=== PATIENT | male | born 1975 | race Caucasian/White ===

== ENCOUNTER 2022-06-13 11:38 | Emergency (ER) | payer SELFPAY ==
[2022-06-13 11:44] VITALS: BP 151/94; PULSE 87; RESP 20; TEMP 37.4; O2SAT 98; BMI 25.7
--- NOTE | 2022-06-13 12:09 | ED_ITS ---
HPI - General Adult General Time Seen by Provider: 12:09 Date Seen: 06/13/22 Chief complaint: Ear/Nose/Throat Problem Stated complaint: Pain left ear Time Seen by Provider: 06/13/22 11:41 Source: patient Mode of arrival: ambulatory Limitations: no limitations History of Present Illness HPI narrative: Patient is a 38 year white male who is largely healthy he reports that he has ADHD, he is on Adderall. Patient reports 2-3 day history of significant left ear pain has been very bothersome to him. No fevers chills or drainage. No other conditions occurring. Related Data Home Medications Medication Instructions Recorded Confirmed dextroamphetamine-amphetamine 10 10 mg PO DAILY 06/13/22 06/13/22 mg tablet Previous Rx's Medication Instructions Recorded cephalexin 500 mg capsule 500 mg PO TID #21 caps 06/13/22 hydrocodone 5 mg-acetaminophen 325 1 tab PO Q6H #10 tabs 06/13/22 mg tablet Allergies Allergy/AdvReac Type Severity Reaction Status Date / Time ketorolac [From Toradol] Allergy Hives Verified 06/13/22 11:48 Penicillins Allergy Vomiting Verified 06/13/22 11:48 tramadol Allergy Nausea Verified 06/13/22 11:48 Review of Systems Status of ROS: Reports: 6 or more systems reviewed and unremarkable except as noted in History and below PFSH PFSH Social History Smoking Status: Never smoker Do you use any of these nicotine containing products: None Second hand tobacco smoke exposure: No How often do you have a drink containing alcohol: never AUDIT-C Alcohol total score: 0 Non-prescribed substance use: denies use Exam Narrative: Exam Narrative: Objective vital signs as above HEENT shows left otitis media left otitis externa rest of HEENT is unremarkable, neck is supple Const: Vital Signs, click to edit/add: Vital Signs - 24 hr 06/13/22 11:44 Temperature 99.3 F Pulse Rate [Right Pulse Oximeter] 87 Respiratory Rate 20 Blood Pressure [Ri ght Upper Arm] 151/94 H Pulse Oximetry 98 Oxygen Delivery Me thod Room Air Course Vital Signs Vital signs: Initial Vital Signs Temperature 99.3 F 06/13/22 11:44 Temperature Source Temporal Artery Scan 06/13/22 11:44 Pulse Rate 87 06/13/22 11:44 Pulse Rhythm 06/13/22 11:44 Respiratory Rate 20 06/13/22 11:44 Blood Pressure 151/94 H 06/13/22 11:44 Blood Pressure Mean 113 06/13/22 11:44 Blood Pressure Position Sitting 06/13/22 11:44 Pulse Oximetry 98 06/13/22 11:44 Oxygen Delivery Method 06/13/22 11:44 Vital Signs Temperature 99.3 F 06/13/22 11:44 Pulse Rate 87 06/13/22 11:44 Respiratory Rate 20 06/13/22 11:44 Blood Pressure 151/94 H 06/13/22 11:44 Pulse Oximetry 98 06/13/22 11:44 Oxygen Delivery Method 06/13/22 11:44 Temperature 99.3 F 06/13/22 11:44 Pulse Rate 87 06/13/22 11:44 Respiratory Rate 20 06/13/22 11:44 Blood Pressure 151/94 H 06/13/22 11:44 Pulse Oximetry 98 06/13/22 11:44 Oxygen Delivery Method 06/13/22 11:44 Medical Decision Making MDM Narrative Medical decision making narrative: Patient has otitis media and otitis externa, will give him Keflex and Tylenol here, [place] and Keflex for home. Recheck with primary care doctor in the next 2 days for reassessment. Light activity, no driving or drinking or work with his pain medication. Discharge Plan Discharge Clinical Impression: Otitis externa, Otitis media Patient Disposition: Home, Self-Care Condition: Stable Additional Instructions: Rest, light activity, oral Keflex times 10 days, Cortisporin otic suspension 3 drops to the left ear 4 times a day for the next 5 days, follow up with primary care in 2 days not improving changes concerns worsening return to the ED. Recommend off work today. Will prescribe some [place] for a couple of days for him, not to use of working or driving. Activity Level: Light activity Discharge Diet: Regular Prescriptions: New cephalexin 500 mg capsule 500 mg PO TID Qty: 21 0RF hydrocodone-acetaminophen 5-325 mg tablet 1 tab PO Q6H Qty: 10 0RF No Action dextroamphetamine-amphetamine 10 mg tablet 10 mg PO DAILY Stand Alone Forms: [facility] Info Instructions Discharge Comment: recheck primary care 2 days
[2022-06-13] MEDS: cephALEXin 500 MG CAPSULE PO (12:20)
== END 2022-06-13 12:28 | disposition home or self-care (01) ==
LOC: ED 12:12
PROVIDERS: Emergency Provider Family Medicine
DX: H60.92 Unspecified otitis externa, left ear (principal)
CPT/HCPCS: 99282; 99283; A9270

== ENCOUNTER 2022-07-08 06:35 | Emergency (ER) | payer OTHER, SELFPAY ==
[2022-07-08 06:42] VITALS: PULSE 78
[2022-07-08 06:43] VITALS: BP 159/115; PULSE 78; RESP 18; TEMP 36.4; O2SAT 99; BMI 25.7
[2022-07-08] MEDS: HYDROCODONE-ACETAMIN 5-325 MG 1 TAB PO (06:44)
--- NOTE | 2022-07-08 06:44 | CRLHL7_ITS ---
For Patients: As a result of the Cures Act, medical imaging exams and procedure reports are released immediately into your electronic medical record. You may view this report before your referring provider. If you have questions, please contact your health care provider. Indication: crush injury to right hand, most of pain is around the 2nd and 3rd digits Technique: Right hand 3 views. Comparison: None. Findings: No acute fracture or traumatic malalignment of the right hand. No significant soft tissue swelling. No radiopaque foreign body. Impression: No evidence of fracture. Dictated by Rojas Bates MD @ 07/08/2022 7:44:00 AM (Electronically Signed)
--- NOTE | 2022-07-08 06:48 | ED_ITS ---
HPI - Extremity Injury (Upper) General Chief Complaint: Extremity Pain/Injury, Upper Stated Complaint: Crushed right fingers Time Seen by Provider: 07/08/22 06:42 History of Present Illness HPI narrative: Pt is a healthy 46 year old gentleman who presents after pinching his first two digits in a heavy door immediately prior to arrival. No skin breakdown. The pain and swelling involve only the first two digits with no other injuries. Pt states the pain is severe and sharp. Pt is having a difficult time bending the affected digits. No difficulty with circulation. No obvious deformaties prior to arrival. Pt is right handed and has been applying ice. No other treatments to this point. Related Data Home Medications Medication Instructions Recorded Confirmed dextroamphetamine-amphetamine 10 10 mg PO DAILY 06/13/22 07/08/22 mg tablet Previous Rx's Medication Instructions Recorded hydrocodone 5 mg-acetaminophen 325 1 tab PO Q6H #10 tabs 06/13/22 mg tablet Allergies Allergy/AdvReac Type Severity Reaction Status Date / Time ketorolac [From Toradol] Allergy Hives Verified 06/13/22 11:48 Penicillins Allergy Vomiting Verified 06/13/22 11:48 tramadol Allergy Nausea Verified 06/13/22 11:48 Review of Systems Status of ROS: Reports: 10 or more systems reviewed and unremarkable except as noted in History and below [facility] Medical History (Updated 07/08/22 @ 07:36 by Ramiro Long MD) Acute back pain with sciatica ADHD Depression Nontraumatic complete tear of left rotator cuff SLAP lesion of left shoulder Surgical History (Updated 07/08/22 @ 06:57 by Byron Morrison RN) History of carpal tunnel release History of repair of left rotator cuff History of shoulder surgery History of surgery on left wrist Hx of hand surgery Social History Smoking Status: Never smoker Do you use any of these nicotine containing products: None Second hand tobacco smoke exposure: No How often do you have a drink containing alcohol: never How often do you have six or more drinks on one occasion: Never AUDIT-C Alcohol total score: 0 Non-prescribed substance use: denies use Exam Narrative: Exam Narrative: EXAM GENERAL: Patient appears uncomfortable and very upset. EYES: No scleral icterus. THYROID: no thyroid nodules or thyromegaly. LYMPH: No supraclavicular or cervical lymphadenopathy. SKIN: Visible skin seen during exam normal or with benign process only. EXT: No dependent lower extremity pedal edema. Pt has mild bruising and swelling of the first two digits of his right hand with limited range of motion. HEART: Regular rate and rhythm with no murmurs, rubs, or gallops. LUNGS: Clear to auscultation bilaterally with no crackles or wheezes. ABD: Soft, non tender, non distended. PSYCH: Good eye contact, speech is not pressured. Const: Vital Signs, click to edit/add: Vital Signs - 24 hr 07/08/22 06:43 07/08/22 06:42 07/08/22 07:38 Temperature 97.6 F Pulse Rate [Right Pulse Oximeter] 78 Pulse Rate [Right Radial] 78 Respiratory Rate 18 Blood Pressure [Ri ght Upper Arm] 159/115 H Pulse Oximetry 99 97 Oxygen Delivery Me thod Room Air 07/08/22 07:38 Temperature Pulse Rate [Right Pulse Oximeter] 68 Pulse Rate [Right Radial] Respiratory Rate 20 Blood Pressure [Ri ght Upper Arm] 153/100 H Pulse Oximetry 97 Oxygen Delivery Me thod Room Air Course Course Hospital Course: X ray of the right hand ordered. Reevaluation(s) Reevaluation #1: X ray of the right hand is negative upon my review. Pt given [place] 1 tablet. Time: 07:31 Vital Signs Vital signs: Initial Vital Signs Pulse Rate 78 07/08/22 06:42 Pulse Rhythm 07/08/22 06:42 Pulse Strength 3+ Normal 07/08/22 06:42 Vital Signs Pulse Rate 78 07/08/22 06:42 Temperature 97.6 F 07/08/22 06:43 Pulse Rate 68 07/08/22 07:38 Respiratory Rate 20 07/08/22 07:38 Blood Pressure 153/100 H 07/08/22 07:38 Pulse Oximetry 97 07/08/22 07:38 Oxygen Delivery Method 07/08/22 07:38 MDM - Extremity Injury (Upper) MDM Narrative Medical decision making narrative: Pt presents after pinching his first two digits of his right hand in a heavy door. X ray series of the right hand shows no acute fractures upon my review. Pt has swelling and mild echymosis but largely preserved range of motion. Sensation and circulation of the affected digits are preserved to the finger tips. Differential Diagnosis Differential diagnosis: Likely finger sprain, dislocation of finger and fracture of hand Discharge Plan Discharge Clinical Impression: Crush injury Condition: Stable Additional Instructions: Ice Pain control as discussed Range of motion exercises Follow up with your doctor as needed Activity Level: No Restrictions Discharge Diet: Regular Prescriptions: No Action dextroamphetamine-amphetamine 10 mg tablet 10 mg PO DAILY hydrocodone-acetaminophen 5-325 mg tablet 1 tab PO Q6H Qty: 10 0RF Follow Up/Referrals: Provider,Not a Local [Primary Care Provider] - Stand Alone Forms: [employer] Info Instructions
[2022-07-08 07:38] VITALS: BP 153/100; PULSE 68; RESP 20; O2SAT 97
== END 2022-07-08 07:58 | disposition home or self-care (01) ==
PROVIDERS: Emergency Provider Internal Medicine
DX: S67.190A Crushing injury of right index finger, initial encounter (principal); S67.01XA Crushing injury of right thumb, initial encounter; W23.0XXA Caught, crushed, jammed, or pinched between moving objects, initial encounter
CPT/HCPCS: 73130; 94761; 99283; 99284; A9270

== ENCOUNTER 2022-08-19 05:39 | Emergency (ER) | payer SELFPAY ==
[2022-08-19 05:45] VITALS: BP 156/102; PULSE 103; RESP 16; TEMP 36.7; O2SAT 98; BMI 25.7
--- NOTE | 2022-08-19 06:10 | ED.MALEGU ---
HPI - Male Genitourinary General Chief complaint: Flank Pain Stated complaint: Right side kidney stabbing pain Time Seen by Provider: 08/19/22 05:46 Source: patient Mode of arrival: ambulatory Limitations: no limitations History of Present Illness HPI Narrative: 46-year-old male with known history of prior kidney stones presents to the emergency department with 4 hour history of right flank pain and dark urine. He is quite confident that this is another kidney stone. Pain is constant, achy at times stabbing at others. Feel similar to a prior episode of kidney stone which was 1 year ago. Notes dark urine but no tho blood. No symptoms of infection such as dysuria or genital area pain. No injury or trauma. No recent falls. He does not take anticoagulants. Denies history of chronic kidney disease, hypertension or cardiac issues personally. He avoids NSAIDs because he has had a stomach ulcer in the past and does report a pretty reliable history of hives from tramadol and Toradol. He states that he does tolerate oral ibuprofen but tries to avoid this due to a prior history of stomach ulcer with heavy use of NSAIDs. He did try taking 2 extra-strength Tylenol approximately 4 hours ago with minimal improvement in his pain. No fevers. No nausea or vomiting. No headache, no HEENT symptoms. Past medical history notable for ADHD. His only long-term medication is 10 mg of Adderall once daily. Allergies are to tramadol penicillin and Toradol. But as stated above he does tolerate oral ibuprofen. Family history is notable for kidney stones in his mother as well. Denies kidney or urogenital surgeries in the past. Denies having to have surgical procedures to remove any kidney stones. Socially is a nonsmoker, works locally at [employer]. ROS is notable only for the right flank pain and dark urine, otherwise denies times 12 systems. Related Data Home Medications Medication Instructions Recorded Confirmed dextroamphetamine-amphetamine 10 10 mg PO DAILY 06/13/22 07/08/22 mg tablet Previous Rx's Medication Instructions Recorded hydrocodone 5 mg-acetaminophen 325 1 tab PO Q6H #10 tabs 06/13/22 mg tablet hydrocodone 5 mg-acetaminophen 325 1 tab PO TID PRN pain #10 tabs 07/08/22 mg tablet Allergies Allergy/AdvReac Type Severity Reaction Status Date / Time ketorolac [From Toradol] Allergy Hives Verified 06/13/22 11:48 Penicillins Allergy Vomiting Verified 06/13/22 11:48 tramadol Allergy Nausea Verified 06/13/22 11:48 PFSH PFS Medical History Acute back pain with sciatica ADHD Depression History of kidney stones Nontraumatic complete tear of left rotator cuff SLAP lesion of left shoulder Surgical History History of carpal tunnel release History of repair of left rotator cuff History of shoulder surgery History of surgery on left wrist Hx of hand surgery Social History Smoking Status: Never smoker Do you use any of these nicotine containing products: None Second hand tobacco smoke exposure: No How often do you have a drink containing alcohol: never How often do you have six or more drinks on one occasion: Never AUDIT-C Alcohol total score: 0 Non-prescribed substance use: denies use Exam Const: Vital Signs, click to edit/add: Vital Signs - 24 hr 08/19/22 05:45 08/19/22 07:54 Temperature 98.1 F Pulse Rate [Left P ulse Oximeter] 103 H 86 Respiratory Rate 16 18 Blood Pressure [Ri ght Upper Arm] 156/102 H 132/100 H Pulse Oximetry 98 97 Oxygen Delivery Me thod Room Air Room Air Documenting provider has reviewed patient's vital signs: yes Common normals: no apparent distress General appearance: cooperative and well kempt Other: Appears uncomfortable but answers questions appropriately. HENMT: Common normals: normocephalic Head and scalp: normocephalic Mouth: oral and palatal mucosa normal Throat: posterior oropharynx normal Eye: Common normals: conjunctivae normal and no scleral icterus Conjunctiva: conjunctiva(e) normal Other: Normal visual tracking Neck & C-Spine: Common normals: full ROM and no lymphadenopathy Resp: Common normals: normal respiratory effort and clear to auscultation bilaterally Effort & inspection: able to speak in complete sentences Auscultation: clear to auscultation bilaterally Cardio: Common normals: regular rate, regular rhythm, S1 normal heart sound, S2 normal heart sound, no murmurs and peripheral pulses 2+ throughout Rate: regular rate Rhythm: regular rhythm Heart sounds: S1 normal and S2 normal Peripheral pulses: pulses 2+ throughout GI: Common normals: Normal to inspection, nondistended, normoactive bowel sounds present, soft to palpation, non-tender, no hepatosplenomegaly and no masses Palpation: soft and no hepatosplenomegaly Back & Pelvis: Other: Right-sided CVA tenderness noted on exam. No other tender areas on thoracolumbar spine. Psych: Appearance: well kempt Attitude: calm and engaged Mood and affect: euthymic mood Insight: insight good Skin: Common normals: no rashes or lesions noted General skin exam: no rashes or lesions noted Course Vital Signs Vital signs: Initial Vital Signs Temperature 98.1 F 08/19/22 05:45 Temperature Source Temporal Artery Scan 08/19/22 05:45 Pulse Rate 103 H 08/19/22 05:45 Respiratory Rate 16 08/19/22 05:45 Blood Pressure 156/102 H 08/19/22 05:45 Blood Pressure Mean 120 08/19/22 05:45 Blood Pressure Position Sitting 08/19/22 05:45 Pulse Oximetry 98 08/19/22 05:45 Oxygen Delivery Method 08/19/22 05:45 Vital Signs Temperature 98.1 F 08/19/22 05:45 Pulse Rate 103 H 08/19/22 05:45 Respiratory Rate 16 08/19/22 05:45 Blood Pressure 156/102 H 08/19/22 05:45 Pulse Oximetry 98 08/19/22 05:45 Oxygen Delivery Method 08/19/22 05:45 Temperature 98.1 F 08/19/22 05:45 Pulse Rate 86 08/19/22 07:54 Respiratory Rate 18 08/19/22 07:54 Blood Pressure 132/100 H 08/19/22 07:54 Pulse Oximetry 97 08/19/22 07:54 Oxygen Delivery Method 08/19/22 07:54 MDM - Male Genitourinary MDM Narrative Medical decision making narrative: Differential diagnosis including kidney stone, kidney infection, urine infection, intra-abdominal process, musculoskeletal etiology. Will begin with oral oxycodone, oral ibuprofen with risks and benefits discussed, famotidine to help with GI protection. Awaiting urinalysis, expect that this will show some blood in the wound will need CT scan, basic metabolic panel, CBC, CRP. Update: 7 10: Patient reports marked improvement in his pain with oral pain medications. Laboratory studies reviewed with patient, all reassuring. Awaiting CT results Update 810: CT findings reviewed with patient, suspect musculoskeletal etiology. Offered muscle relaxants which he declines. Recommended Tylenol he requests a work note, I provided 1 for today only and encouraged him to return to full duty tomorrow. He verbalizes understanding and agreement. Medical Records Attestation: I reviewed the patient's medical records. Medical records narrative: Prior ED visit for hand injury Lab Data Attestation: I reviewed the patient's lab results. Lab results narrative: Reassuring Labs: Lab Results 08/19/22 08/19/22 08/19/22 Range/Units 06:00 06:25 06:25 WBC 4.10 L (4.50-11.00) K/uL RBC 4.99 (4.30-5.90) m/uL Hgb 15.6 (13.5-17.5) gm/dL Hct 45.5 (37.0-53.0) % MCV 91 (80-100) fL MCH 31 (26-34) pg MCHC 34 (32-36) gm/dL RDW Coeff of Celina 12.4 (11.5-15.5) % Plt Count 241 (140-440) K/uL Neut % (Auto) 62.8 (42.0-72.0) % Lymph % (Auto) 24.6 (20-44) % Sargent % (Auto) 10.7 (0.0-11.0) % Eos % (Auto) 1.2 (0.0-7.0) % Baso % (Auto) 0.5 (0.0-3.0) % Neut # (Auto) 2.60 (1.7-7.0) K/uL Lymph # (Auto) 1.00 (0.90-2.90) K/uL Sargent # (Auto) 0.40 (0.00-0.90) K/UL Eos # (Auto) 0.00 (0.00-0.50) K/uL Baso # (Auto) 0.00 (0.00-0.30) K/uL Abs Immat Gran (auto) 0.00 (0.00-0.30) K/uL Imm/Tot Granulo (auto) 0.2 % Sodium 138 (135-149) mmol/L Potassium 4.5 (3.6-5.1) mmol/L Chloride 103 (96-114) mmol/L Carbon Dioxide 28 (20-32) mmol/L BUN 11 (5-24) mg/dL Creatinine 0.8 (0.5-1.5) mg/dL Estimated Creat Clear 94.56 Estimated GFR 109 ml/min Glucose 91 (60-115) mg/dL Calcium 9.1 (8.4-10.6) mg/dL C-Reactive Protein < 0.5 L (0.5-1.0) mg/dL Urine Color Yellow (Yellow) Urine Appearance Clear (Clear) Urine pH 5.5 (5.0-8.5) Ur Specific Baxter 1.025 (1.000-1.030) Urine Protein Negative (Negative) Urine Glucose (UA) Negative (Negative) Urine Ketones Negative (Negative) Urine Blood Negative (Negative) Urine Nitrite Negative (Negative) Urine Bilirubin Negative (Negative) Urine Urobilinogen 0.2 (0.2-1.0) Ur Leukocyte Esterase Negative (Negative) Imaging Data CT Chest/Ab/Pelvis: Attestation: I have reviewed the pertinent imaging results. My impression: Normal except some possible mild constipation only. Certainly no stones or hydronephrosis. Radiologist's impression: No acute findings. Discharge Plan Discharge Clinical Impression: Musculoskeletal back pain Patient Disposition: Home, Self-Care Condition: Improved Instructions: Back Pain (ED) Additional Instructions: Her blood work and scans do not reveal any signs of kidney stone, urinary abnormality, problems with her abdominal organs. I suspect you have pulled a muscle in your back or you may have some ongoing issues with her back as you disclosed to me at the end of our encounter. For now, I do recommend Tylenol as needed for pain. You have declined muscle relaxants. I have given you work note for today. You should return to full duty tomorrow. If you continue to have issues with her back, I would encourage you to make a follow-up appointment with your long-term primary care provider to discuss long-term management. Activity Level: No Restrictions Discharge Diet: Regular Prescriptions: No Action dextroamphetamine-amphetamine 10 mg tablet 10 mg PO DAILY hydrocodone-acetaminophen 5-325 mg tablet 1 tab PO Q6H Qty: 10 0RF hydrocodone-acetaminophen 5-325 mg tablet 1 tab PO TID PRN (Reason: pain) Qty: 10 0RF Follow Up/Referrals: Provider,Not a Local [Primary Care Provider] - Stand Alone Forms: [employer] Info Instructions
[2022-08-19 06:12] LABS: Appearance Urine Clear (Clear); Bilirubin Urine Negative (Negative); Blood Urine Negative (Negative); Color Urine Yellow (Yellow); Glucose Urine Negative (Negative); Ketones Urine Negative (Negative); Leukocyte Esterase Urine Negative (Negative); Nitrite Urine Negative (Negative); Protein Urine Negative (Negative); Specific Gravity Urine 1.025 (1.000-1.030); Urobilinogen Urine 0.2 (0.2-1.0); pH Urine 5.5 (5.0-8.5)
[2022-08-19] MEDS: FAMOTIDINE 20 MG TABLET PO (06:12)
[2022-08-19] MEDS: IBUPROFEN 400 MG TABLET 800 MG PO (06:12)
[2022-08-19] MEDS: OXYCODONE 5 MG TABLET 10 MG PO (06:12)
--- NOTE | 2022-08-19 06:31 | CRLHL7_ITS ---
For Patients: As a result of the Cures Act, medical imaging exams and procedure reports are released immediately into your electronic medical record. You may view this report before your referring provider. If you have questions, please contact your health care provider. INDICATION: Right flank pain, history of stones TECHNIQUE: CT abdomen and pelvis without contrast, stone protocol. COMPARISON: CT abdomen pelvis July 31, 2021. FINDINGS: Kidney/ureters: Kidneys are normal in caliber. No kidney or ureteral stones and no hydronephrosis. No sign of perinephric inflammation. Ureters are normal in caliber. Bladder appears unremarkable. Liver/gallbladder/bile ducts: The liver is normal in size, shape and attenuation.Few tiny low-attenuation lesions in the liver are too small to characterize but likely benign. Gallbladder is normal without visualized stones or inflammation. No biliary dilatation. Spleen/pancreas/adrenal glands: The spleen, adrenal glands and pancreas are within normal limits. GI tract: Small duodenal diverticulum. No bowel obstruction. No evidence of bowel inflammation. Colonic diverticulosis without evidence of acute diverticulitis. Normal appendix. Abdominal wall/omentum/peritoneum: No free air or significant free fluid. No mass or inflammation. Lymph nodes: No lymphadenopathy. Pelvis: Unremarkable pelvis. Lower chest: Unremarkable. Bones: No acute fracture or aggressive osseous lesion. Transitional anatomy with sacralization bilaterally of L5. First IMPRESSION: 1. No nephroureterolithiasis or hydroureteronephrosis. 2. No acute intra-abdominal process on this unenhanced CT. 3. Few scattered colonic diverticulosis without evidence of acute diverticulitis. Please note that all CT scans at this facility use dose modulation, iterative reconstruction, and/or weight-based dosing when appropriate to reduce radiation dose to as low as reasonably achievable. Dictated by Rojas Bates MD @ 08/19/2022 8:02:38 AM (Electronically Signed)
[2022-08-19 06:37] LABS: Basophils Percent Auto 0.5 % (0.0-3.0); Eosinophils Percent Auto 1.2 % (0.0-7.0); Hematocrit 45.5 % (37.0-53.0); Hemoglobin* 15.6 gm/dL (13.5-17.5); Immature Granulocytes Pct Auto 0.2 %; Lymphocytes Percent Auto 24.6 % (20-44); Mean Corpuscular HGB Conc 34 gm/dL (32-36); Mean Corpuscular Hemoglobin 31 pg (26-34); Mean Corpuscular Volume 91 fL (80-100); Monocytes Percent Auto 10.7 % (0.0-11.0); Neutrophils Percent Auto 62.8 % (42.0-72.0); Platelet Count* 241 K/uL (140-440); RDW Coefficient of Variation % 12.4 % (11.5-15.5); Red Blood Count 4.99 m/uL (4.30-5.90)
--- OUTSIDE RECORDS SUMMARY | 2022-08-19 06:47 | XMS_ITS | Clinical Summary ---
:1975 Author Organization [facility] Address [address] [place] [address] Care Team Providers Name Role Phone Anthony Carpenter APRN C.N.Harsha, M.S.N. Primary Care Provider + Source Comments Patient records contain information from all sites at [facility]. For routine questions regarding patient records, call [phone] during business hours, M-F 8:00 AM - 5:00 PM Central Time. Record requests for emergency care only can be directed to [phone] at any time.[facility] Allergies Active Allergy Reactions Severity Noted Date Comments Adhesive Tape-Silicones Other (see comments) 7 Gadolinium-Containing Rash Medium 09/17/2018 Contrast Media Ketorolac Other (see comments), 04/18/2014 Cerner listed no Itching reactions Latex Other (see comments) 04/18/2014 Cerner listed no reactions Penicillins Other (see comments), 04/18/2014 Cerner listed no GI intolerance reactions Tramadol Rash 03/22/2014 Medications Medication Sig Dispensed Refills Start Date End Date Status acetaminophen Take 1,000 mg by 0 Active (for_TYLENOL) 500 mg mouth. tablet albuterol inhaler Inhale 2 puffs 3 Inhaler 3 08/09/2020 Active every 4 (four) hours as needed for wheezing or shortness of breath. sertraline (ZOLOFT) Take 1 tablet (50 45 tablet 0 01/02/2022 Active 50 mg mg total) by tabletIndications: mouth daily. Take Depression Major One half tablet Episode Moderate (25mg) for 1 (HCC) week. Then increase to 1 tablet daily. methocarbamoL Take 500 mg by 0 04/18/2022 Active (ROBAXIN) 500 mg mouth. tablet pantoprazole Take 40 mg by 0 04/19/2022 Ac tive (PROTONIX) 40 mg EC mouth. tablet pregabalin (LYRICA) Take 75 mg by 0 04/18/2022 Active 75 mg capsule mouth. celecoxib (CeleBREX) Take 1 capsule 180 capsule 3 05/08/2022 Active 100 mg capsule (100 mg total) by mouth 2 (two) times a day as needed for pain. dextroamphetamine-amp Take 1 tablet (10 30 tablet 0 07/07/2022 Active hetamine (ADDERALL) mg total) by 10 mg tablet mouth daily. Active Problems Problem Noted Date Depression 01/23/2022 Pain Shoulder Left 03/16/2019 Tear Rotator Cuff Complete Non Trauma Left 12/28/2018 Lesion Superior Glenoid Labrum Initial Left 04/27/2018 Attention Deficit With Hyperactivity Disorder 11/11/19 18 Anxiety 05/13/2017 Overview: Per External Records Major Depressive Disorder Single Episode Unspecified 1 12/06/2011 Resolved Problems Problem Noted Date Resolved Date Pain Generalized Abdominal 04/03/2021 04/03/2021 Pain Low Back Unspecified 09/29/2017 11/11/2017 Dizziness 06/04/2016 11/11/2017 Overview: Persistent postural perceptual dizziness Headache Daily 06/04/2016 11/11/2017 Presbyopia 05/23/2016 11/11/2017 Alcohol Moderate Or Severe Use Disorder (Dependence) 014 11/11/2017 Uncomplicated Encounters Date Type Specialty Care Team Description 07/04/2022 Refill Family Medicine Anthony Carpenter, ELA, C. N.P., M.S.N. Med Refill from Last 3 Months Immunizations Name Administration Dates Next Due DTaP (Infanrix, Tripedia) 12/10/1990, 07/12/1975, 10/12/1974 , 04/11/1974, 03/12/1974 MMR 06/27/1992, 08/10/1979 Polio, Unspecified 07/12/1975, 10/12/1974, 04/11/1974, 0610/1973 Td (Adult), adsorbed 04/11/2012 Tdap 12/25/2020 Family History Medical History Relation Name Comments Alcohol abuse Father Asthma Mother Relation Name Status Comments Father Mother Social History Tobacco Use Types Packs/Day Years Used Date Smoking Tobacco: Never Smokeless Tobacco: Current Chew Tobacco Cessation: Ready to Quit: No; Co unseling Given: Yes Comments: 1 can per week. Advised to shaun t Alcohol Use Standard Drinks/Week Comments No 0 (1 standard drink = 0.6 oz pure alcoho l) Alcohol Habits Answer Date Recorded How often do you have a drink containing alcohol? Never 07/17/2021 How many drinks containing alcohol do you have on a typical Not asked day when you are drinking? How often do you have six or more drinks on one occasion? No t asked Social Isolation Answer Date Recorded In a typical week, how many times do you More than three millie es a week 07/17/2021 talk on the phone with family, friends, or neighbors? How often do you get together with friends Patient refused 07/17/2021 or relatives? How often do you attend methodist or Patient refused 2020 baptist services? Do you belong to any clubs or No 07/17/2021 organizations such as methodist groups, unions, fraternal or athletic groups, or school groups? How often do you attend meetings of the Patient refused 07/17/2021 clubs or organizations you belong to? Are you now , , , 07/17/2021 , never or living with a partner? Physical Activity Answer Date Recorded On average, how many days per week do you engage in moderate to 4 days 07/17/2021 strenuous exercise (like walking fast, running, jogging, dancing, swimming, biking, or other activities that cause a light or heavy sweat)? On average, how many minutes do you engage in exercise at th is 60 min 07/17/2021 level? Stress Answer Date Recorded Do you feel stress - tense, restless, nervous, or To some ex tent 07/17/2021 anxious, or unable to sleep at night because your mind is troubled all the time - these days? Financial Resource Strain Answer Date Recorded How hard is it for you to pay for the very basics like Somew hat hard 07/17/2021 food, housing, medical care, and heating? Intimate Partner Violence Answer Date Recorded Within the last year, have you been afraid of your partner o r No 07/17/2021 ex-partner? Within the last year, have you been humiliated or emotionall y Not asked abused in other ways by your partner or ex-partner? Within the last year, have you been kicked, hit, slapped, or Not asked otherwise physically hurt by your partner or ex-partner? Within the last year, have you been raped or forced to have No 07/17/2021 any kind of sexual activity by your partner or ex-partner? Food Insecurity Answer Date Recorded Within the past 12 months, you worried that your food would Never true 06/29/2019 run out before you got money to buy more. Within the past 12 months, the food you bought just didn't N ever true 06/29/2019 last and you didn't have money to get more. Transportation Needs Answer Date Recorded In the past 12 months, has lack of transportation kept you f rom No 07/17/2021 medical appointments or from getting medications? In the past 12 months, has lack of transportation kept you f rom No 07/17/2021 meetings, work, or getting things needed for daily living? Housing Stability Answer Date Recorded In the last 12 months, was there a time when you were not Ye s 07/17/2021 able to pay the mortgage or rent on time? In the last 12 months, how many places have you lived? Not a sked In the last 12 months, was there a time when you did not hav e Not asked a steady place to sleep or slept in a care home (including now)? Education Answer Date Recorded What is the highest level of school you have Some college, n o degree 07/17/2021 completed or the highest degree you have received? Sex Assigned at Date Recorded Not on file Last Filed Vital Signs Vital Sign Reading Time Taken Comments Blood Pressure 145/84 05/08/2022 9:11 AM CDT Pulse 80 05/08/2022 8:51 AM CDT Temperature 36.2 ??C (97.1 ??F) 05/08/2022 8:51 AM CDT Respiratory Rate 20 05/08/2022 8:51 AM CDT Oxygen Saturation 98% 03/20/2022 2:50 PM CDT Inhaled Oxygen Concentration - - Weight 66.3 kg (146 lb 2.6 oz) 05/08/2022 8:51 AM CDT Height 163.5 cm (5' 4.37) 05/08/2022 8:51 AM CDT Body Mass Index 24.8 05/08/2022 8:51 AM CDT Plan of Treatment Health Maintenance Due Date Last Done Comments CT Colonography 1975 Cologuard 1975 FIT 1975 HIV Screening 1975 Hepatitis B Vaccines (1 of 1973 3 - 3-dose series) Hepatitis C Screening 1975 COVID-19 Vaccine (#1) 05/05/1974 Hepatitis A Vaccines (1 of 1974 2 - Risk 2-dose series) Lipid (Cholesterol) 09/10/2021 09/10/2016 Screening Depression Monitoring 05/04/2022 01/02/2022 (PHQ-9) Influenza Vaccine (#1) 2022 Tobacco Cessation 05/08/2023 05/08/2022 counseling Fasting Glucose for 04/16/2025 04/16/2022, 02/10/2022, Diabetes Screening 12/23/2021, Additional history exists DTaP,Tdap,and Td Vaccines 12/25/2030 12/25/2020, 04/11/2012 , (8 - Td or Tdap) 12/10/1990, Additional history exists Colonoscopy 07/29/2031 07/29/2021 Colorectal Cancer Screening 07/29/2031 Pneumococcal vaccine (0-64 Aged Out No lo nger eligible years) based on patient 's age to complete this topic Medical Devices Implanted Type Area Machine Sprayer Device Shelf Model / Identifier Expiration Serial / Date Lot Shoulder Shoulder Left: Implant Implant Shoulder Insurance Payer Benefit Plan / Subscriber ID Effective Phone Address T [facility] Group Dates TRAVELERS TRAVELERS [id number] 2019-Pre PO BOX Indemn ity INSURANCE INSURANCE sent [id number] [place] [address] [employer] AMER[employer]KA [id number] 2020-Pre [phone] Indemnity INSURANCE [place] sent [phone] [facility] [phone] [place] [address] AI AIG [id number] 2020-Pre [phone] [address] Indemn ity sent [phone] [place] [address] ESIS ESIS [id number] 2020-Pres [phone] [address] ndemnity ent [phone] [place]DE[place] [address] Jatin Jaimes Workers Comp Self [address] [place] [address]Home[address] [place] [address] [employer] Workers Comp Employer [address] [place]Home) [place] [address] [employer] Workers Comp Employer [phone] [address] [place] [address] Jatin Jaimes Personal/Famil Self [address] [place] (Home) [place] [address] Care Teams Allergist/Pediatric Pulmonologist Relationship Specialty Start Date End Date Anthony Carpenter, ELECTRIC METER READER, C.N.P., PCP - General Family Medicine M.S.N. [address] [place] [address]
--- OUTSIDE RECORDS SUMMARY | 2022-08-19 06:47 | XMS_ITS | Encounter Summary ---
:1975 Author Organization [facility] Address [address] [place] [address] Care Team Providers Name Role Phone Anthony Carpenter APRN C.N.PPatricia, M.S.N. Primary Care Provider + Encounter Details Date Type Department Care Team Description 05/12/2022 Clinical Communication Department of [facility] Anthony Carpenter, Medicine, [place] ELA C.N.PPatricia, Clinic, in [facility] [address] [place] [phone] Social History Tobacco Use Types Packs/Day Years Used Date Smoking Tobacco: Never Smokeless Tobacco: Current Chew Comments: 1 can per week. Advised to [...] or relatives? How often do you attend episcopal or Patient refused 2020 rastafari services? Do you belong to any clubs or No 07/17/2021 organizations such as episcopal groups, unions, fraternal or athletic groups, or [...] to pay for the very basics like [employer] medical hat hard 07/17/2021 food, housing, medical care, [...] place to sleep or slept in a halfway (including now)? Education Answer Date Recorded What is the highest level of school you have Some college, n o degree 07/17/2021 completed or the highest degree you have received? Sex Assigned at Date Recorded Not on file documented as of this encounter Plan of Treatment Not on filedocumented as of this encounter Visit Diagnoses Not on filedocumented in this encounter Additional Health Concerns Assessment Noted Time PHQ-9 Depression Total Score: 11 01/02/2022 12:02 PM C DT documented as of this encounter Care Teams Nozzle And Sleeve Worker Relationship Specialty Start Date End Date Anthony Carpenter, ELA, C.N.P., PCP - General Family Medicine M.S.N. [address] [phone] documented as of this encounter
--- OUTSIDE RECORDS SUMMARY | 2022-08-19 06:47 | XMS_ITS | Encounter Summary ---
:1975 Author Organization [facility] Address [address] [place] [address] Care Team Providers Name Role Phone Anthony Carpenter APRN, C.N.PPatricia, M.S.N. Primary Care Provider + Reason for Visit Reason Comments Med Refill Encounter Details Date Type Department Care Team Description 07/04/2022 Refill Department of Family Medicine, Anthony Carpenter APRN, Med Refill [facility], in [place], C. N.Harsha, M.S.N. [place] [address] [facility] [address] [place] [address] [place] [address] [facility] [phone] Social History Tobacco Use Types Packs/Day Years [...] or relatives? How often do you attend restorationism or Patient refused 2020 evangelical services? Do you belong to any clubs or No 07/17/2021 organizations such as restorationism groups, unions, fraternal or athletic groups, or [...] place to sleep or slept in a chcf (including now)? Education Answer Date Recorded What is the highest level of school you have Some college, n o degree 07/17/2021 completed or the highest degree you have received? Sex Assigned at Date Recorded Not on file documented as of this encounter Miscellaneous Notes Telephone Encounter - Hallie Marcelo LPatriciaP.N. - 07/07/2022 7:37 AM CDT Patient is requesting a Non-opioid controlled substance renewal of Adderall, and there is no controlled prescribing plan. This medication was last prescribed on 05/12/2022. Nursing has pended as last prescribed, please review and determine if you wish to issue another prescription. Telephone Encounter - Cayla Limon - 07/04/2022 4:37 PM CDT Provider: Anthony Carpenter APRN, M.S.N. Patient called for Refills. Additional info only if applies: Requested Prescriptions Pending Prescriptions Disp Refills dextroamphetamine-amphetamine (ADDERALL) 10 mg tablet 30 tablet 0 Sig: Take 1 tablet (10 mg total) by mouth daily. Pharmacy: [facility] [id number] [facility] [employer] [facility] [place] [facility] [address] [facility] [address] [facility] [address] documented in this encounter Plan of Treatment Not on filedocumented as of this encounter Visit Diagnoses Not on filedocumented in this encounter Additional Health Concerns Assessment Noted Time PHQ-9 Depression Total Score: 11 01/02/2022 12:02 PM C DT documented as of this encounter Care Teams Pcb Design Engineer Relationship Specialty Start Date End Date Anthony Carpenter APRN, C.N.P., PCP - General Family Medicine M.S.N. [address] [phone] documented as of this encounter
--- OUTSIDE RECORDS SUMMARY | 2022-08-19 06:48 | XMS_ITS | Encounter Summary ---
:1975 Author Organization [facility] Address [address] [place] [address] Care Team Providers Name Role Phone Anthony Carpenter APRN C.N.PPatricia, M.S.N. Primary Care Provider + Encounter Details Date Type Department Care Team Description 03/25/2022 Clinical Communication Department of [facility] Anthony Carpenter, Medicine, [place] ELA, C.N.PPatricia, Clinic, in [facility] [address] [place] [phone] Social History Tobacco Use Types Packs/Day Years [...] or relatives? How often do you attend adventism or Patient refused 2020 buddhist services? Do you belong to any clubs or No 07/17/2021 organizations such as adventism groups, unions, fraternal or athletic groups, or [...] to pay for the very basics like [employer] hat hard 07/17/2021 food, housing, medical care, [...] this encounter Miscellaneous Notes Telephone Encounter - Florinda Arndt, L.P.N. - 03/26/2022 3:37 PM CDT I called patient and explained to him that he as been seen several times recently for his pain and that Mobic was provided to him yesterday at his appt with Desiree Baxter. He stated they aren't helping' I asked how many he has been taking he said two a day. I reminded him to be mindful that it is to be taken once daily and that is all he has to help with his pain he agreed. I asked if he made an appt with [facility] he said ' no I was going to call them today, I encouraged him that calling and making an appt with them would be a good starting point. I also asked if he was going to make an appt for another injection he said no they dont do anything for the pain. I asked about his Gabapentin and why he wasn't taking that (this was noted in a pervious message) as that will help with his back pain and he said I'm not taking that because I dont like the way it makes me feel.He mentioned missing his appt with Anthony Carpenter I asked if he wanted to make another appt with Anthony he stated no that won't help thanks for calling have a good day, I then said thank you , you too. No other concerns Telephone Encounter - Latha Kilgore - 03/26/2022 11:57 AM CDT Patient calling back today looking for a pain medication from Anthony Carpenter for back pain. Stated he had requested a message sent to him yesterday but was still waiting to hear back. Skiagrapher asked if he was given the Meloxicam yesterday from Doc Baxter as stated by Canelo. Patient hesitated then Patient stated he was but that it did nothing. He asked that another message be sent up to Anthony Jorgerajlanre to get more pain meds and went through a long list of things he has tried and why he needs these meds. Skiagrapher asked patient how many of the Meloxicam he had taken, he stated, As prescribed. Skiagrapher asked whatthat would be since not able to see what provider prescribed. Patient hesitated a long bit and stated, twice a day. He continued explaining why he needed new pain meds right away. Skiagrapher stated, sothat means there should be what, 10 pills left then of the Meloxicam? Patient stated yes. Patient continued to press that he get prescription today for pain meds from Willa Carpenter. [facility]. Telephone Encounter - Vannesa Flynn L.P.N. - 03/25/2022 3:52 PM CDT Patient got meloxicam at an appt today Telephone Encounter - Shalini Al - 03/25/2022 10:05 AM CDT Reason for Communication: Patient calling, states he saw Dr. Gillette on 03/20/22 and had 2 injectionsfor his back pain. He states his pain is even worse. He is not able to see Dr. Gillette until next month. Inquiring if Anthony Jayden would prescribed something for him? Please advise. Current Can Nursing/Provider leave a detailed message?: no Did the patient refuse triage through Nurse line? (for symptom based concerns): n/a Action Needed: Call back Name of Medication (if relevant): [facility] Please send all scheduling replies to scheduling pool. documented in this encounter Plan of Treatment Not on filedocumented as of this encounter Visit Diagnoses Not on filedocumented in this encounter Additional Health Concerns Assessment Noted Time PHQ-9 Depression Total Score: 11 01/02/2022 12:02 PM C DT documented as of this encounter Care Teams Petroleum Refinery Laborer Relationship Specialty Start Date End Date Anthony Carpenter, ELA, C.N.P., PCP - General Family Medicine M.S.N. [address] [phone] documented as of this encounter
--- OUTSIDE RECORDS SUMMARY | 2022-08-19 06:48 | XMS_ITS | Encounter Summary ---
:1975 Author Organization [facility] Address [address] [place] [address] Care Team Providers Name Role Phone Anthony Carpenter APRN C.N.PPatricia, M.S.N. Primary Care Provider + Encounter Details Date Type Department Care Team Description 03/26/2022 Clinical Communication Department of [facility] Anthony Carpenter, Medicine, [place] ELA, C.N.PPatricia, Clinic, in [facility] [address] [place] [phone] Social History Tobacco Use Types Packs/Day Years [...] or relatives? How often do you attend pentecostalism or Patient refused 2020 sabianism services? Do you belong to any clubs or No 07/17/2021 organizations such as pentecostalism groups, unions, fraternal or athletic groups, or [...] to pay for the very basics like [employer] hat hard 07/17/2021 food, housing, medical care, [...] place to sleep or slept in a jail (including now)? Education Answer Date Recorded What [...] documented as of this encounter Care Teams Senior It Project Manager Relationship Specialty Start Date End Date Anthony Carpenter, ELA, C.N.P., PCP - General Family Medicine M.S.N. [address] [phone] documented as of this encounter
--- OUTSIDE RECORDS SUMMARY | 2022-08-19 06:48 | XMS_ITS | Encounter Summary ---
:1975 Author Organization [facility] Address [address] [place] [address] Care Team Providers Name Role Phone Anthony Carpentre APRN C.N.PPatricia, M.S.N. Primary Care Provider + Encounter Details Date Type Department Care Team Description 02/20/2022 Clinical Communication Department of [facility] Anthony Carpenter, Medicine, [place] ELA, C.N.PPatricia, Clinic, in [facility] [address] [place] [phone] Social History Tobacco Use Types Packs/Day Years [...] or relatives? How often do you attend yarsanism or Patient refused 2020 jain services? Do you belong to any clubs or No 07/17/2021 organizations such as yarsanism groups, unions, fraternal or athletic groups, or [...] to pay for the very basics like [employer] hat hard 07/17/2021 food, housing, medical care, [...] place to sleep or slept in a usp (including now)? Education Answer Date Recorded What is the highest level of school you have Some college, n o degree 07/17/2021 completed or the highest degree you have received? Sex Assigned at Date Recorded Not on file documented as of this encounter Miscellaneous Notes Telephone Encounter - Florinda Morley - 02/20/2022 11:24 AM CDT Refill encounter created. Telephone Encounter - Eliane Schultz - 02/20/2022 11:21 AM CDT Provider: Anthony Carpenter APRN, C.N.P., M.S.N. Patient called for Refills. Additional info only if applies: Requested Prescriptions Pending Prescriptions Disp Refills ??? oxyCODONE (ROXICODONE) 5 mg immediate release tablet Sig: Take 1 tablet (5 mg total) by mouth every 4 (four) hours as needed. Pharmacy: [id number] - [place] - [address] [facility] [address] [place] [address] documented in this encounter Plan of Treatment Not on filedocumented as of this encounter Visit Diagnoses Not on filedocumented in this encounter Additional Health Concerns Assessment Noted Time PHQ-9 Depression Total Score: 11 01/02/2022 12:02 PM C DT documented as of this encounter Care Teams Operations And Maintenance Supervisor Relationship Specialty Start Date End Date Anthony Carpenter APRN, C.N.P., PCP - General Family Medicine M.S.N. [address] [phone] documented as of this encounter
--- OUTSIDE RECORDS SUMMARY | 2022-08-19 06:48 | XMS_ITS | Encounter Summary ---
:1975 Author Organization [facility] Address [address] [place] [address] Care Team Providers Name Role Phone Anthony Carpenter APRN, C.N.PPatricia, M.S.N. Primary Care Provider + Reason for Visit Reason Comments Med Refill Encounter Details Date Type Department Care Team Description 04/23/2022 Refill Department of Family Medicine, Anthony Carpenter APRN, Med Refill [facility], in [place], C. N.Harsha, M.S.N. [place] [address] [address] [place] [address] [place] [address] [facility] [phone] Social History Tobacco Use Types Packs/Day Years [...] or relatives? How often do you attend catholic or Patient refused 2020 baptism services? Do you belong to any clubs or No 07/17/2021 organizations such as catholic groups, unions, fraternal or athletic groups, or [...] place to sleep or slept in a senior care (including now)? Education Answer Date Recorded What [...] documented as of this encounter Care Teams Aquatic Director Relationship Specialty Start Date End Date Anthony Carpenter, ELA, C.N.P., PCP - General Family Medicine M.S.N. [address] [phone] documented as of this encounter
--- OUTSIDE RECORDS SUMMARY | 2022-08-19 06:48 | XMS_ITS | Encounter Summary ---
:1975 Author Organization [facility] Address [address] [place] [address] Care Team Providers Name Role Phone Anthony Carpenter APRN, C.N.PPatricia, M.S.N. Primary Care Provider + Reason for Visit Reason Comments Med Refill Encounter Details Date Type Department Care Team Description 02/20/2022 Refill Department of Family Medicine, Anthony Carpenter APRN, Med Refill [facility] [place], in [place], C. N.Harsha, M.S.N. [place] [address] [address] [place] [address] [place] [address] [facility] [phone] Social History Tobacco Use Types Packs/Day Years [...] or relatives? How often do you attend jain or Patient refused 2020 christian services? Do you belong to any clubs or No 07/17/2021 organizations such as jain groups, unions, fraternal or athletic groups, or [...] place to sleep or slept in a longterm (including now)? Education Answer Date Recorded What is the highest level of school you have Some college, n o degree 07/17/2021 completed or the highest degree you have received? Sex Assigned at Date Recorded Not on file documented as of this encounter Miscellaneous Notes Telephone Encounter - Florinda Morley - 02/20/2022 11:23 AM CDT Nurse review: Unable to forward request to provider; Controlled Substance Primary Provider: Anthony Carpenter APRN, C.N.P., M.S.N. Requested Prescriptions Pending Prescriptions Disp Refills ??? oxyCODONE (ROXICODONE) 5 mg immediate release tablet Sig: Take 1 tablet (5 mg total) by mouth every 4 (four) hours as needed. Pharmacy (include location): [facility] [place] Telephone Encounter - Florinda Morley - 02/20/2022 11:23 AM CDT Provider: Anthony Carpenter APRN, Caterina.N.P., M.S.N. Patient called for Refills. Additional info only if applies: Requested Prescriptions Pending Prescriptions Disp Refills ??? oxyCODONE (ROXICODONE) 5 mg immediate release tablet Sig: Take 1 tablet (5 mg total) by mouth every 4 (four) hours as needed. Pharmacy: [id number] - [place], [place] - [address] [place] [id number] documented in this encounter Plan of Treatment Not on filedocumented as of this encounter Visit Diagnoses Not on filedocumented in this encounter Additional Health Concerns Assessment Noted Time PHQ-9 Depression Total Score: 11 01/02/2022 12:02 PM C DT documented as of this encounter Care Teams Layer Up Relationship Specialty Start Date End Date Anthony Carpenter, ELA, C.N.P., PCP - General Family Medicine M.S.N. [address] [phone] documented as of this encounter
--- OUTSIDE RECORDS SUMMARY | 2022-08-19 06:48 | XMS_ITS | Encounter Summary ---
:1975 Author Organization [facility] Address [address] [place] [address] Care Team Providers Name Role Phone Anthony Carpenter APRN, C.N.Harsha, M.S.N. Primary Care Provider + Reason for Referral Outpatient (Routine) - Closed Specialty Diagnoses / Referred By Contact Referred To Contact Procedures Physical Medicine and Diagnoses Pain Low Back Other Radiculopathy Marly Blas [facility] [place] [facility] [place] Chaudhari [facility] [place] [address] [place] [address] Referral ID Status Reason Start Date Expiration Date Visits Requ ested Visits Authorized [id number] Closed 03/14/2022 03/14/2023 1 1 Reason for Visit Reason Comments Pain Chronic back pain. Appointment Request (Routine) - Closed Specialty Diagnoses / Procedures Referred By Contact Refer red To Contact Family Medicine Referral ID Status Reason Start Date Expiration Date Visits Requ ested Visits Authorized [id number] Closed 03/14/2022 03/14/2023 1 1 Encounter Details Date Type Department Care Team Description 03/14/2022 Office Visit Department of Family Marly Blas Pai n Low Back Other (Primary Dx); Primitivo Tamayo M.D. Radiculopathy Clinic, in [address], [address] [facility] [facility] [address] [place] [phone] (Work) [phone] Social History Tobacco Use Types Packs/Day Years [...] or relatives? How often do you attend shinto or Patient refused 2020 denominational services? Do you belong to any clubs or No 07/17/2021 organizations such as shinto groups, unions, fraternal or athletic groups, or [...] place to sleep or slept in a residential (including now)? Education Answer Date Recorded What is the highest level of school you have Some college, n o degree 07/17/2021 completed or the highest degree you have received? Sex Assigned at Date Recorded Not on file documented as of this encounter Last Filed Vital Signs Vital Sign Reading Time Taken Comments Blood Pressure 130/85 03/14/2022 3:23 PM CDT Pulse 76 03/14/2022 3:23 PM CDT Temperature 36.8 ??C (98.2 ??F) 03/14/2022 3:23 PM CDT Respiratory Rate - - Oxygen Saturation - - Inhaled Oxygen Concentration - - Weight 63.3 kg (139 lb 8.8 oz) 03/14/2022 3:23 PM CDT Height 163.5 cm (5' 4.37) 03/14/2022 3:23 PM CDT Body Mass Index 23.68 03/14/2022 3:23 PM CDT documented in this encounter Progress Notes Marly Blas M.D. - 03/14/2022 3:30 PM CDT Chief Complaint Patient presents with ??? Pain Chronic back pain. HISTORY OF PRESENT ILLNESS: This is a 46 y.o. male who is new to me. His PCP is Anthony Carpenter. He comes in today complaining of chronic back pain. Last winter, he slipped on ice. When he fell, heshifted to the right and landed on his back on concrete. Recently, this pain has gotten worse. He can barely walk now. He was recently seen in the emergency room and an MRI was done showing that he hasa bulging disc. He now complains of numbness and tingling on his toes bilaterally. Last night, he could not even feel his feet. It is hard for him to sit on the toilet. He has troubled on himself to urinate and many times cannot make it to the bathroom on time. Yesterday, he almost cried at work due to the pain. 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 He has his back bent forward most of the day as he does a lot of shoveling. He was supposed to get an injection but missed his appointment. He currently takes Tylenol and Aleve. He is wondering if he needs to see a back surgeon. MEDICATIONS: Current Outpatient Medications Medication Sig Dispense Refill ??? acetaminophen (for_TYLENOL) 500 mg tablet Take 1,000 mg by mouth. ??? albuterol inhaler Inhale 2 puffs every 4 (four) hours as needed for wheezing or shortness of breath. 3 Inhaler 3 ??? dextroamphetamine-amphetamine (AdderalL) 10 mg tablet Take 1 tablet (10 mg total) by mouth 2 (two) times a day. 60 tablet 0 ??? gabapentin (NEURONTIN) 100 mg capsule ??? lidocaine (LIDODERM) 5 % Place 1 patch on the skin daily. Apply to abdominal wall. 30 patch 0 ??? sertraline (ZOLOFT) 50 mg tablet Take 1 tablet (50 mg total) by mouth daily. Take half tablet (25mg) for 1 week. Then increase to 1 tablet daily. 45 tablet 0 No current facility-administered medications for this visit. ALLERGIES: Allergies Allergen Reactions ??? Gadolinium-Containing Contrast Media Rash ??? Adhesive Tape-Silicones Other (see comments) ??? Ketorolac Other (see comments) and Itching Cerner listed no reactions ??? Latex Other (see comments) Cerner listed no reactions ??? Penicillins Other (see comments) and GI intolerance Cerner listed no reactions ??? Tramadol Rash PROBLEM LIST: Patient Active Problem List Diagnosis ??? Anxiety ??? Attention Deficit With Hyperactivity Disorder ??? Pain Shoulder Left ??? Tear Rotator Cuff Complete Non Trauma Left ??? Major Depressive Disorder Single Episode Unspecified ??? Lesion Superior Glenoid Labrum Initial Left ??? Depression VITALS: Vitals: 03/14/22 1523 BP: 130/85 Pulse: 76 Temp: 36.8 ??C Wt 63.3 kg Ht 163.5 cm Body mass index is 23.68 kg/m??. PHYSICAL EXAMINATION: General: Well developed, well nourished male in moderate distress due to his back pain. Heart:: Regular rate and rhythm. No murmurs. Lungs: Clear to auscultation bilaterally with good airflow. Gait: He pushes with his hands to stand up from a sitting position. He walks very slowly and does appear to be in a significant amount of pain. Mental Status: Affect appropriate. Recent and remote memory intact. Neuro: Alert, oriented. DIAGNOSTICS: MR Lumbar Spine without IV Contrast Order: [id number] Narrative For Patients: ??As a result of the Century Cures Act, medical imaging exams and procedure reports are released immediately into your electronic medical record. ??You may view this report before your referring provider. ??If you have questions, please contact your health care provider. Indication: Suspect cauda equina syndrome. Back pain. Technique: T2, T1, and STIR sagittal as well as T1 and T2 axial sequences were obtained. No IV contrast. Comparison: None available. Findings: Alignment is anatomic. No evidence for recent fracture, worrisome bone lesion or pars defect. No high grade central canal stenosis. The conus and cauda equina are unremarkable, with the tip of the cord at the L1- 2 interspace level. No paraspinal pathology is identified. T12-L1 and L1-2: Trace disc degenerative changes. The foramina are patent. L2-3, L3-4 and L4-5: The discs and facets are negative. The foramina are patent. L5-S1: ??Mild disc degenerative changes with shallow central disc herniation. Mild left facet osteoarthritis. The foramina are patent. Impression: 1. At L5-S1 there is a small shallow central disc herniation. No lateralization. 2. Mild left facet osteoarthritis at L5-S1. Minor disc degenerative changes at T12-L1 and L1-2. 3. No evidence for intrinsic pathology or extrinsic compression of the conus medullaris or cauda equina. Dictated by Ru Parsons MD @ 01/23/2022 7:38:46 AM IMPRESSION / REPORT / PLAN: #1 Pain Low Back Other #2 Radiculopathy . Pain may be due to central disc herniation at L5-S1. . Reviewed prior ER visits with the patient . Reviewed MRI report with the patient. . Prescribed diazepam 5 mg at bedtime as needed for muscle spasm to help him get rest at night. . Medrol Dosepak prescribed as well. . Referral to Physical Medicine and rehab was submitted. I also sent a message to Dr. Harman Gillette to see if his visit can be expedited. - diazePAM (VALIUM) 5 mg tablet; Take 1 tablet (5 mg total) by mouth at bedtime as needed for musclespasms., Starting 03/14/2022, Normal - Physical Medicine and Rehabilitation - General consult (clinic); Future; Expected date: 03/14/2022 - methylPREDNISolone (MEDROL DOSEPAK) 4 mg tablet; Take as directed on package., Normal Total time spent with this patient was over 40 minutes, more than half the time was spent in recordsreview, counselling, documentation, and coordination of care. documented in this encounter Plan of Treatment Scheduled Referrals Name Type Priority Associated Order Schedule Diagnoses Physical Medicine and Outpatient Referral Routine Pain Low Ashley k Expected: Rehabilitation - Other 03/14/2022 General consult Radiculopathy (Approximat e), (clinic) Expires: 06/14/2023 documented as of this encounter Visit Diagnoses Diagnosis Pain Low Back Other - Primary Radiculopathy documented in this encounter Additional Health Concerns Assessment Noted Time PHQ-9 Depression Total Score: 11 01/02/2022 12:02 PM C DT documented as of this encounter Care Teams Mixed Animal Veterinarian Relationship Specialty Start Date End Date Anthony Carpenter, ELA, C.N.P., PCP - General Family Medicine M.S.N. [address] [phone] documented as of this encounter
--- OUTSIDE RECORDS SUMMARY | 2022-08-19 06:48 | XMS_ITS | Encounter Summary ---
:1975 Author Organization [facility] Address [address] [place] [address] Care Team Providers Name Role Phone Anthony Carpenter APRN, C.N.P., M.S.N. Primary Care Provider + Reason for Visit Reason Comments Med Management Patient requesting oxycodone refill while waiting to get into pain clinic. Patient also needs r efill of Adderall. Other Saw neck and spine provider - might have to have surgery for back. Is on muscle relaxer - pt state s that it is not helping. Patient is wanting temporary pain relie f while waiting to get into the pain clinic. Back Pain Patient states that he has t ried PT, chiropractor, and pain injections with no relief. 07/21 pain s shamir today. Appointment Request (Routine) - Closed Specialty Diagnoses / Procedures Referred By Contact Refer red To Contact Family Medicine Referral ID Status Reason Start Date Expiration Date Visits Requ ested Visits Authorized [id number] Closed 04/23/2022 04/23/2023 1 1 Encounter Details Date Type Department Care Team Description 05/08/2022 Office Visit Department of Family Anthony Carpenter Attent ion Deficit With Hyperactivity Disorder (Primary Dx); Medicine, Primitivo Zuñiga APRN, Pain Low Back Unspecified Clinic, in [place], M.S .N. [place] [address] [place] [phone] Social History Tobacco Use Types Packs/Day Years [...] or relatives? How often do you attend druze or Patient refused 2020 latter-day services? Do you belong to any clubs or No 07/17/2021 organizations such as druze groups, unions, fraternal or athletic groups, or [...] 20 05/08/2022 8:51 AM CDT Oxygen Saturation - - Inhaled Oxygen Concentration - - Weight 66.3 kg (146 lb 2.6 oz) 05/08/2022 8:51 AM CDT Height 163.5 cm (5' 4.37) 05/08/2022 8:51 AM CDT Body Mass Index 24.8 05/08/2022 8:51 AM CDT documented in this encounter Progress Notes Anthony Carpenter APRN, C.N.P., M.S.N. - 05/08/2022 9:00 AM CDT SUBJECTIVE CHIEF COMPLAINT/REASON FOR VISIT Alon Jaimes is a 46 y.o. male who presents for evaluation of Med Management (Patient requesting oxycodone refill while waiting to get into pain clinic. Patient also needs refill of Adderall. ), Other (Saw neck and spine provider - might have to have surgery for back. Is on muscle relaxer - pt states that it is not helping. Patient is wanting temporary pain relief while waiting to get into the pain clinic.), and Back Pain (Patient states that he has tried PT, chiropractor, and pain injections with no relief. 10/10 pain scale today.). HISTORY OF PRESENT ILLNESS Alon Jaimes is a 46 y.o. male here for follow-up regarding his attention deficit hyperactivity disorder. He currently takes Adderall 10 mg twice daily. The medication is effective for him. Hedoes not complain of any problems with side effects such as insomnia, weight loss, lack of appetite, palpitations. He would also like discuss something for his low back pain. He has been dealing with worsening low back pain since January this year. He is tried treatments including physical therapy, oxycodone, muscle relaxers, NSAIDs, injections and nothing really seems to help. He has been to the emergency department several times. An MRI of the lumbar spine from an outside facility shows at L4-L5 mild disc height loss. Disc bulge with shallow central protrusion/annular fissure which demonstrates enhancement. According to him he has seen Dr. Romeo from [facility] spine twice. He states Dr. Romeo recommended surgery. Since the pain started he has been experiencing urinary dribbling and tingling in his bilateral legs. He also has an appointment at a pain clinic in [facility] in June. He is asking for painmanagement until he is able to see Pain Medicine in June. He rates his pain a 10/10 today. His pain has not changed and there is no new neurological symptoms. REVIEW OF SYSTEMS See HPI, remainder of ROS reviewed and are negative. MEDICAL HISTORY Patient Active Problem List Diagnosis Anxiety Attention Deficit With Hyperactivity Disorder Pain Shoulder Left Tear Rotator Cuff Complete Non Trauma Left Major Depressive Disorder Single Episode Unspecified Lesion Superior Glenoid Labrum Initial Left Depression CURRENT MEDICATIONS Current Outpatient Medications: acetaminophen (for_TYLENOL) 500 mg tablet, Take 1,000 mg by mouth., Disp: , Rfl: albuterol inhaler, Inhale 2 puffs every 4 (four) hours as needed for wheezing or shortness of breath., Disp: 3 Inhaler, Rfl: 3 dextroamphetamine-amphetamine (ADDERALL) 10 mg tablet, Take 10 mg by mouth daily., Disp: , Rfl: methocarbamoL (ROBAXIN) 500 mg tablet, Take 500 mg by mouth., Disp: , Rfl: pantoprazole (PROTONIX) 40 mg EC tablet, Take 40 mg by mouth., Disp: , Rfl: pregabalin (LYRICA) 75 mg capsule, Take 75 mg by mouth., Disp: , Rfl: sertraline (ZOLOFT) 50 mg tablet, Take 1 tablet (50 mg total) by mouth daily. Take half tablet (25mg) for 1 week. Then increase to 1 tablet daily., Disp: 45 tablet, Rfl: 0 celecoxib (CeleBREX) 100 mg capsule, Take 1 capsule (100 mg total) by mouth 2 (two) times a day as needed for pain., Disp: 180 capsule, Rfl: 3 ALLERGIES/CONTRAINDICATIONS Allergies Allergen Reactions Gadolinium-Containing Contrast Media Rash Adhesive Tape-Silicones Other (see comments) Ketorolac Other (see comments) and Itching Cerner listed no reactions Latex Other (see comments) Cerner listed no reactions Penicillins Other (see comments) and GI intolerance Cerner listed no reactions Tramadol Rash OBJECTIVE VITAL SIGNS BP 145/84 Pulse 80 Temp 36.2 ??C (Temporal) Resp 20 Ht 163.5 cm Wt 66.3 kg BMI 24.80 kg/m?? PHYSICAL EXAMINATION General: Patient is alert and oriented, in no acute distress. Capable of full communication without difficulty. Patient is polite and cooperative. Appropriately dressed and normal hygiene. HEENT: Normocephalic, atraumatic. Pupils are equal, round and reactive to light. Conjunctiva noninjected. Cardiac: Regular rate and rhythm. No S3, no S4. Lungs: Unlabored respirations with regular rate, rhythm, and depth of respiration. Lungs are clear. Mental Status: Affect is normal. Speech is clear and coherent. Thought process is appropriate. ASSESSMENT / PLAN 1. Attention Deficit With Hyperactivity Disorder -patient has attention deficit hyperactivity disorder is well controlled on Adderall 10 mg twice daily. He is due for his annual drug screen so this has been ordered. He last took oxycodone few days after he picked up his prescription on 04/18. Once we receive the results I will send an updated prescription for his Adderall 10 mg twice daily. He will follow-up in 6 months, sooner if concerns. 2. Pain Low Back Unspecified -patient has had ongoing back pain that worsened in January of this year. He has no new features with his back pain. His most recent MRI of the lumbar spine from an outside facility shows at L4-L5 mild disc height loss. Disc bulge with shallow central protrusion/annular fissure which demonstrates enhancement. He is followed by Dr. Romeo at [facility] spine who according to the patient recommended surgery. He also has an appointment with Pain Medicine in June and he is requesting pain managementuntil he can meet with them so a prescription for Celebrex 100 mg twice daily was provided. I also asked the patient to have Dr. Romeo's notes sent to us so we can have them on file. Anthony Carpenter APRN, Caterina.N.Gabriel., M.S.N. documented in this encounter Plan of Treatment Not on filedocumented as of this encounter Visit Diagnoses Diagnosis Attention Deficit With Hyperactivity Dis order - Primary Pain Low Back Unspecified documented in this encounter Additional Health Concerns Assessment Noted Time PHQ-9 Depression Total Score: 11 01/02/2022 12:02 PM C DT documented as of this encounter Care Teams Senior Tax Accountant Relationship Specialty Start Date End Date Anthony Carpenter APRN, C.N.P., PCP - General Family Medicine M.S.N. [address] [phone] documented as of this encounter
--- OUTSIDE RECORDS SUMMARY | 2022-08-19 06:48 | XMS_ITS | Encounter Summary ---
:1975 Author Organization [facility] Address [address] [place] [address] Care Team Providers Name Role Phone Markuslanre Anthony Zuñiga APRN C.N.Gabriel., M.S.N. Primary Care Provider + Reason for Visit Reason Comments Medical Information Encounter Details Date Type Department Care Team Description 03/26/2022 Clinical Department of [facility] Medical Communication Physical Medicine and [facility] in [place], [place] [address] [place] [phone] Social History Tobacco Use Types Packs/Day Years [...] or relatives? How often do you attend hinduism or Patient refused 2020 tenriism services? Do you belong to any clubs or No 07/17/2021 organizations such as hinduism groups, unions, fraternal or athletic groups, or [...] to pay for the very basics like [employer] hat hard 07/17/2021 food, housing, medical care, [...] place to sleep or slept in a prison (including now)? Education Answer Date Recorded What is the highest level of school you have Some college, n o degree 07/17/2021 completed or the highest degree you have received? Sex Assigned at Date Recorded Not on file documented as of this encounter Miscellaneous Notes Telephone Encounter - Julio Champagne - 03/26/2022 2:57 PM CDT Reason for Communication: Patient called and wanted to talk to a nurse from dr nicolas team about issues he is having and other options, please advise. Current Can Nursing/Provider leave a detailed message: yes Did the patient refuse triage through Nurse line? (for symptom based concerns): Action Needed: Name of Medication (if relevant): documented in this encounter Plan of Treatment Not on filedocumented as of this encounter Visit Diagnoses Not on filedocumented in this encounter Additional Health Concerns Assessment Noted Time PHQ-9 Depression Total Score: 11 01/02/2022 12:02 PM C DT documented as of this encounter Care Teams Wire Threader Relationship Specialty Start Date End Date Anthony Carpenter, ELA, C.N.P., PCP - General Family Medicine M.S.N. [address] [place] [phone] documented as of this encounter
--- OUTSIDE RECORDS SUMMARY | 2022-08-19 06:48 | XMS_ITS | Encounter Summary ---
:1975 Author Organization [facility] Address [address] [place] [address] Care Team Providers Name Role Phone Markuslanre Anthony Zuñiga APRN C.N.Gabriel., M.S.N. Primary Care Provider + Reason for Visit Reason Comments Medical Information Encounter Details Date Type Department Care Team Description 04/01/2022 Clinical Department of [facility] Medical Communication Physical Medicine and [facility] in [place], [place] [address] [place] [phone] Social History Tobacco Use [...] or relatives? How often do you attend lutheran or Patient refused 2020 pentecostalism services? Do you belong to any clubs or No 07/17/2021 organizations such as lutheran groups, unions, fraternal or athletic groups, or [...] to pay for the very basics like [employer] hat hard 07/17/2021 food, housing, medical care, [...] place to sleep or slept in a detention (including now)? Education Answer Date Recorded What is the highest level of school you have Some college, n o degree 07/17/2021 completed or the highest degree you have received? Sex Assigned at Date Recorded Not on file documented as of this encounter Miscellaneous Notes Telephone Encounter - Julio Champagne - 04/01/2022 11:59 AM CDT Reason for Communication: patients girlfriend called, wanting to talk to nicolas nurse, about back pain, please advise. Current Can Nursing/Provider leave a [...] documented as of this encounter Care Teams Scuba Diver Relationship Specialty Start Date End Date Anthony Carpenter, ELA, C.N.P., PCP - General Family Medicine M.S.N. [address] [place] [phone] documented as of this encounter
--- OUTSIDE RECORDS SUMMARY | 2022-08-19 06:48 | XMS_ITS | Encounter Summary ---
:1975 Author Organization [facility] Address [address] [place] [address] Care Team Providers Name Role Phone Jayden Anthony Zuñiga APRN C.N.P., M.S.N. Primary Care Provider + Reason for Referral Physical Therapy (Routine) - Authorized Specialty Diagnoses / Procedures Referred By Contact Refer red To Contact Diagnoses Pain Low Back Other Radiculopathy Harman Gillette M.D. [address] [phone] Referral ID Status Reason Start Date Expiration Date Visits V isits Requested Authorized [id number] Authorized Other 03/19/2022 03/19/2023 1 1 Outpatient (Routine) - Authorized Specialty Diagnoses / Referred By Contact Referred To Contact Procedures Physical Medicine and Harman Gillette SE, M.D. [address] [phone] Referral ID Status Reason Start Date Expiration Date Visits V isits Requested Authorized [id number] Authorized 03/19/2022 03/19/2023 1 1 Scheduling Instructions After lumbar MRI Outpatient (Routine) - Closed Specialty Diagnoses / Procedures Referred By Contact Refer red To Contact Diagnoses Pain Low Back Other Radiculopathy Harman Gillette [facility] [place] [facility] Procedures [place] Lumbar Spine Transforaminal Epidural Injection Bilateral DC INJ ANES FORAMEN EPI LUMB SNGL .DPatricia [address] [place] [address] Referral ID Status Reason Start Date Expiration Date Visits Requ ested Visits Authorized [id number] Closed 03/19/2022 03/19/2023 1 1 Reason for Visit Reason Comments Back Pain Lower Outpatient (Routine) - Closed Specialty Diagnoses / Referred By Contact Referred To Contact Procedures Physical Medicine and Diagnoses Pain Low Back Other Radiculopathy Marly Blas [facility] [address] [place] [address] Referral ID Status Reason Start Date Expiration Date Visits Requ ested Visits Authorized [id number] Closed 03/14/2022 03/14/2023 1 1 Encounter Details Date Type Department Care Team Description 03/19/2022 Comprehensive Visit Department of Nain, Pain Lo w Back Other; Physical Medicine and Harman Javier, Radicu lopathy Rehabilitation in [facility], [place] [address] [place] [phone] Social History Tobacco Use Types Packs/Day Years [...] you attend yarsanism or Patient refused 2020 amish services? Do you belong to any clubs [...] place to sleep or slept in a long term (including now)? Education Answer Date Recorded What is the highest level of school you have Some college, n o degree 07/17/2021 completed or the highest degree you have received? Sex Assigned at Date Recorded Not on file documented as of this encounter Patient Instructions Patient InstructionsHarman Gillette M.D. - 03/19/2022 2:17 PM CDT Images from the original note were not included. Patient Education Radiculopathy Introduction This resource discusses a condition affecting the spinal (backbone) nerves called radiculopathy. It contains information about the causes, diagnosis and treatment of the condition. If you have questions after reading thisinformation, please discuss them with your health care provider. Many of the words in bold printare defined in the word list. What Are the Parts of the Spine? In order to understand radiculopathy, it is helpful to understand the parts and function of the spine (backbone). Your spine is made up of many separate bones (vertebrae), rubbery shock absorbers (discs) and small joints on the back of the vertebrae (facet joints) (see figure 1). The vertebrae are stacked on top of each other from your tailbone to the base of your skull. The vertebrae form a column that surrounds and protects your spinal cord. The spinal cord is the main pathway of your nervous system. Spinal nerves branch out from the spinal cord between each vertebra to serve the muscles and tissues throughout your body. The portions of the nerves between and next to the vertebrae are the spinal nerve roots. The spinal discs maintain the spaces between the vertebrae. Discs are made of arubbery outer layer and a soft, jelly-like center that helps them to act as shock absorbers. The facet joints, together with bands of fibrous tissue called ligaments, hold the vertebrae and discs together, but are flexible enough to allow thespine to bend and twist. Tendons fasten your back muscles to your spine. Your back muscles support your spine, which helps you stand upright and move. They also help support theweight of your body and the loads you carry. What Is Radiculopathy? The term radiculopathy comes from the Czech words ???radiculo,?? meaning root, and ???pathos,?? meaning suffering. Radiculopathy occurs when a spinal nerve root is pinched or pressed, inflamed or injured (see figure 2). This can cause pain along a nerve pathway -- most commonly pain that runs from the neck or back through the affected arm or leg and possibly into the hand or foot. Tingling,numbnessor muscle weakness may also be present. Radiculopathy most often affects the lower back. It usually occurs between ages 30 and 50 when involving the lower back and between ages 40 and 60 wheninvolving the neck. It rarely occurs in children. What Causes Radiculopathy? Various factors can lead to radiculopathy. The most common cause is the normal aging of your spine. As you age, your spinal discs and surrounding structures naturally wear down (degenerate) and become thinner. Spinal degeneration can cause a disc to bulge or slip into the spinal canal (see figure 3). In addition, as a disc wears down, its outer layer may tear, allowing the inner cushioning layer to push out into thespinal canal. When all or part of a disc pushes into the spinal canal, it can place pressure on or irritate nearbyspinal nerve roots, causing the pain, numbness andweakness associated with radiculopathy. Other conditions that can affect spinal nerve roots and lead to radiculopathyinclude the following: Arthritis that causes excess bone (bone spurs) to grow on the spine A tumor on or next to the spine Spinal stenosis (a narrowing of the spinal canal that compresses the nerve roots) Diabetes Scarring from past back surgery What Are the Symptoms of Radiculopathy? The symptoms of radiculopathy can include the following: Pain that runs down your arm or leg Pain in your hands or feet Tingling or numbness in your arm or leg Muscle weakness in your arm or leg Your symptoms may get worse when you engage in certain activities (for example, walking, sitting, standing, coughing, sneezing and bending forward). You mayfind that you get relief when you lie down oruse a back support when sitting. How Is Radiculopathy Diagnosed? To determine if you have radiculopathy, you will need to be evaluated by your health care provider. This evaluation will include a complete medical history, physical examination and possibly other diagnostic tests (such as X-rays or other imaging scans of your spine). This information will help your health care provider determine whether your nerve roots are being compressed or irritated and whether any contributing conditions (such as disc degeneration, spinalcanal narrowing, tumors or bone spurs) are present. How Is Radiculopathy Treated? Several treatments are available for radiculopathy. The treatment appropriate for you will depend onthe cause of your radiculopathy and the severity of your symptoms. Non-surgical methods are often tried first, particularly if radiculopathy results from a spinal disc condition (disc problems frequently heal on their own without the need for surgery). Ninety-eight percent ofpatients respond to non-surgical treatment. Your health care provider may first recommend a combination of the followingnon- surgical treatments: Rest, accompanied by activity changes -- You may be advised to rest your back for a few days after the start of pain. This will usually not involve complete bed rest. Remaining active can help the healing process. Pain medication -- Your health care provider may recommend [id number] and/or prescription medication to help relieve pain, inflammation and nerve irritation. Physical therapy -- Physical therapy techniques can help relieve pain. Traction may be used to relax muscles of the spine that have gone into spasm (muscle tightening thatyou cannot control) and relieve nerve root tension. Ultrasound uses deep heat to help relax painful muscles. Transcutaneous electrical nerve stimulation (TENS) applies mild electrical currents to your skin to help control pain. Heat or cold therapy applies heating pads or ice packs to help relieve acute pain and reduce inflammation. Exercise can help relieve pain. A physical therapist can design an exercise program to strengthen your back, neck and stomach muscles and relieve the pressure of spinal discs on your nerve roots. Aerobic exercises may also be included to help relieve pain and improve your overall fitness. You may have some discomfort when you first begin to exercise or participate in physical therapy. This is usually temporary and should lessen as your musclesget stronger. Injections -- Steroid injections to the affected area of the spine may help reduce pain and other symptoms. Although the effects may not be long-lasting, they may help promote better long-term results if pain relief allows you to participate more actively in physical therapy, exercise and other parts of your treatment program. Spinal manipulation -- Some people find spinal manipulation helpful. A health care provider who is trained in the use of manual manipulation can provide this type of treatment. Surgery -- If non-surgical treatments are unsuccessful, your health care provider may advise you to consider surgery. Surgery is generally recommended for severe and persistent pain that continues to get worse and significantly affects your ability to function. Surgery may also be recommended if you ex perience weakness in your arms or legs or have trouble controlling your bladder or bowels. Ask your surgeon about the procedures, benefits and risks of surgery. Maintaining a Healthy Back The following suggestions may help you manage pain and other symptoms: Start and continue an exercise program. Exercises that strengthen and increase the flexibility of your back and stomach muscles can also help you avoid injury to your spine. Participate in an aerobic exercise activity at least three to five times a week. Maintain a healthy posture. Poor posture can contribute to the development or progression of radiculopathy. Maintain a healthy diet and weight. Carrying extra pounds places unnecessary stress on your back. Learn proper lifting techniques. Bend at the knees and hips and keep your back straight when liftingobjects. Carry objects close to your body. Be aware of how you sit, stand and lie down. When sitting, put your feet on a stool or other object that raises your knees above the level of your hips. When standing for a long time, alternately put your feet on a low stool or other raised object. Avoid wearing high-heeled shoes. Do not lie on your abdomen for long periods. Do not smoke. Smoking interferes with the healing process and damages your overall health. When Should I Call My Health Care Provider? If you notice a significant change in your symptoms that lasts more than one week, contact your health care provider. Seek immediate medical treatment if you have either of the following symptoms: Significant numbness, tingling or weakness in an arm or leg Changes in ability to control your bladder or bowels Conclusion Radiculopathy can be painful and may affect your daily functioning. You can take steps to reduce your risk of developing this condition and help control any symptoms you may experience. Maintaining proper body position and exercising regularly may help prevent and reduce the effects of radiculopathy. Depending on your symptoms, treatments may range from physical therapy and medication to surgery. Researchers continue to explore new ways to prevent andtreat radiculopathy. Additional Resources You may wish to check the websites of the following sources for additionalinformation: [facility] [employer] Word List Aerobic exercise -- To repeatedly contract large muscle groups, such as your legs and arms, toincrease your breathing and heart rate. Degenerate -- Wearing down of a structure. Discs -- Rubbery cushions of cartilage that act as shock absorbers between eachvertebra. Facet joints -- Small joints on the back of the vertebrae. Ligaments -- Strong fibrous connective tissue resembling a band or sheet that connects abone to another bone. Spinal cord -- Lengthy, cord-like bundle of nerves that connects the brain with the nervesof the trunk and extremities. Spinal nerves -- Nerves that run from the spinal cord between each vertebra to servedifferent muscles and tissues throughout the body. Spinal nerve roots -- The portions of the spinal nerves that lie between and next to the vertebrae. Spine -- The backbone. Vertebrae -- One of the bony sections that make up the spine. This material is for your education and information only. This content does not replace medical advice, diagnosis or treatment. New medical research may change this information. If you have questions about a medical condition, always talkwith your health care provider. ?? 2002 [facility] [employer] ([employer]). All rights reserved. [id number] documented in this encounter Consult Notes Harman Gillette M.D. - 03/19/2022 2:00 PM CDT SUBJECTIVE CHIEF COMPLAINT/REASON FOR VISIT Marly Blas M.D. sent this patient for consultation regarding evaluation and management of BackPain (Lower). PPE use information for possible contact monitoring: PPE used during visit: Provider was wearing a mask throughout entire session. Provider was wearing a mask and eye protection throughout entire session. Patient was wearing a mask throughout entire session. HISTORY OF PRESENT ILLNESS Mr. Alon Jaimes is a 46 y.o. 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 The symptoms started suddenly back in November of this year after he slipped on ice and landed on concrete. He notes that he had a forceful twisting motion as he was falling and landed directly onto his back. He did have immediate back pain and developed radiating numbness and tingling approximately 1 week later. Since the onset, the pain is been gradually worsening in terms of severity. He describes having constant achy or sharp pain in a bandlike distribution across the low back with associated numbness and tingling down the posterior thighs and calves. Pain is made worse with prolonged sitting, especially trying to go the bathroom, as well as bending,twisting, lifting, and prolonged upright activity. The symptom improves with rest and changing position. He notes he had 2 weeks of physical therapy previously which he did not tolerate well. He has also tried combination of Acetaminophen, naproxen, oral Medrol Dosepak, diazepam, and very low-dose gabapentin noting that none of these have been helpful. He has not received any type of corticosteroid injection. He does endorse having some dribbling when he urinates and difficulty defecating on accountof increased back pain. He does endorse having significant difficulty with sleep on account of pain with associated muscle spasms. Pertinent negatives on review of systems include; focal weakness, fevers, chills or recent illness and rash or skin change. REVIEW OF SYSTEMS All systems were reviewed and were negative except those mentioned in the history of present illnesssection of this note. PATIENT HISTORY The following portions of the patient's history were reviewed and updated as appropriate: allergies,current medications, family history, medical history, social history, surgical history and problem list. OBJECTIVE PHYSICAL EXAM GENERAL/CONSTITUTIONAL: Well-developed and well-nourished appearing individual in no acute distress.Cornelia score 3/5 for superficial tenderness, simulation, over reaction. MENTAL STATUS/PSYCHIATRIC: Appropriate mood and affect; able to answer questions appropriately with coherent speech and thought processing. NEUROLOGIC: Gait: Ambulates with shortened stride length. Strength: All major muscle groups of the bilateral lower extremities have gossly normal and symmetric muscle strength, bulk, and tone. Reflexes: Bilateral lower extremity muscle stretch reflexes are physiologic and symmetric. Positive straight leg raise sign bilaterally. MUSCULOSKELETAL: Inspection: No gross axial or appendicular skeletal deformities and no visible muscle bulk asymmetry / atrophy through the affected region. ROM: Lumbar spine is limited range of motionall planes due to pain.Palpation: Diffuse tenderness to light palpation throughout the lumbar paraspinal musculature. SKIN: Grossly negative for erythema, breakdown or lesions in affected area. LYMPHATIC: No lymphadenopathy appreciated in the inguinal regions. CARDIOVASCULAR: Pedal pulses and capillary refill normal. No lower limb edema. RESPIRATORY: Breathing appears comfortable and regular. No dyspnea or cough during the examination. DIAGNOSTICS IMAGING STUDIES: I reviewed the most recent radiographic images with the patient, read and agree with the Radiologist???s reports; CT Abdomen Pelvis without IV Contrast Result Date: 12/24/2021 Lack of IV contrast lowers sensitivity for detecting visceral organ injury. None is seen. No free fluid or free air. Tiny hepatic cysts. Anteriorly rotated right kidney. No renal stones or hydronephrosis. Normalappendix. No acute pelvic fracture. 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 Mild bilateral hip degenerative joint disease. Mild lumbar spondylosis. vRad: Findings concordant with preliminary vRad report. Reviewed outside lumbar MRI radiology report from January 23, 2022 whose impression was: 1. At L5-S1 there is a small shallow central disc herniation. No lateralization. 2. Mild left facet osteoarthritisat L5-S1. Minor disc degenerative changes at T12-L1 and L1-2. 3. No evidence for intrinsic pathology or extrinsic compression of the conus medullaris or cauda equina. IMPRESSION, REPORT & PLAN ASSESSMENT / PLAN #1 Pain Low Back Other #2 Radiculopathy # 3 Mild Lumbar Spondylosis #4 Subacute Fall On Ice Mr. Alon Jaimes presents for evaluation of subacute onset radiating bilateral low back andlower extremity pain that started after slipping on ice and falling onto his back in November 2021. The patient's clinical history examination findings are most consistent with discogenic mechanical low back pain and radiculitis. He presents without focal neurologic deficit with a Cornelia score of 3/5. I had an indepth discussion with the patient regarding my clinical findings; including the etiology,prognosis, and treatment options for his diagnoses. I provided education on relevant physiologic andbiomechanical principles, instructions for maintaining neutral posture and quality movements and opal mmendations regarding appropriate behavioral modifications. A variety of available physical modalities and therapeutic interventions were discussed, including physical therapy and epidural injection. We reviewed some appropriate classes of medications and their indications for managing his symptoms including therapeutic doses of gabapentin. Following our discussion, we decided to proceed with the following treatment plan: - provided a prescription for gabapentin and detailed titration instructions, including the fast track dosing calender handout - provided a work excuse note through the end of the month Orders Placed This Encounter Procedures ??? Physical Medicine and Rehabilitation office visit (clinic) ??? External referral PT (non-[place]) ??? FL Lumbar Spine Transforaminal Epidural Injection Bilateral I did provide the patient with a work excuse note for the next 3 weeks and will plan to follow up with him virtually 2 weeks after completion of his epidural injection at which time further recommendations will be provided. Following our discussion the patient expressed understanding and agreement with plan. EDUCATION We discussed the diagnosis and treatment plan in detail. Several appropriate questions were raised and were discussed thoroughly prior to dismissal. The patient expressed understanding of the content and was in agreement with the plan. No apparent learning barriers were identified; learning preferences include listening. ADMINISTRATIVE BILLING I personally spent over half of a total 45 minutes face to face with the patient in counseling and discussion and/or coordination of care as described above. Signed by: Harman Gillette M.D. 03/19/2022 1:59 PM CDT documented in this encounter Plan of Treatment Scheduled Referrals Name Type Priority Associated Order Schedule Diagnoses Physical Medicine and Outpatient Routine 1 Occu rrences Rehabilitation office Referral starti ng visit (clinic) 03/19/2022 un til 06/19/2023 documented as of this encounter Results FL LUMBAR SPINE TRANSFORAMINAL EPIDURAL INJECTION BILATERAL (03/20/2022 2:53 PM CDT) Specimen (Source) Anatomical Location Collection Method / Collectio n Time Received Time / Laterality Volume Narrative [id number] G[facility] RUSSELLN - 03/20/2022 4:03 PM CDT Harman Gillette M.D. ? 03/20/2022 ??4:04 PM FL Lumbar Spine Transforaminal Epidural Injection Bilateral Date/Time: 03/20/2022 4:03 PM Performed by: Harman Gillette M.D. Authorized by: Harman Gillette M.D. Care team members present 1. Luz Drake L.P.N. PROCEDURE SUMMARY Indications: Radiculitis and Spondylosis without myelopathy Pre-procedural pain: 10/10 Post-procedural pain: 0/10 Site: lumbar Lumbar: transforaminal epidural injectio n Transforaminal epidural injection: Right L5 and Left L5 Needle or RF cannula: Spinal Needle size: 22 G Needle length: 5 in Flow: peripheral and central Patient position: prone IMAGING Fluoroscopic image guidance used to loca lize target, identify at risk structures, and dynamically used to dire ct therapy to the target. Image(s) acquired and saved. INJECTED MEDICATIONS Total volume of injectate (mL): dexameth asone (10 mg/mL) 2 mL , PF lidocaine (2%) 2 mL , Omnipaque (300 u/m l) 2 mL Total steroid in injectate (mg): dexamet hasone 20 mg PROCEDURE DETAILS ?? Transforaminal epidural injection - lumb ar: After identifying the appropriate pedicle fluoroscopically wit h an oblique view. A spinal needle was then advanced under fluoroscopic saima dance to the posterior aspect of the neural foramen. Appropriate foramina l depth was determined with a lateral fluoroscopic view, and AP visual ization confirmed needle positioning at approximately the 6 o'nilesh ck position relative to the pedicle. After negative aspiration, cont rast was injected using live fluoroscopy and digital subtraction michelle ography, confirming appropriate transforaminal spread without evidence o f intravascular or intrathecal uptake. A local anesthetic test dose con sisting of 1 mL of 2% lidocaine was injected through the needle. ??After an appropriate period of observation, a directed neurological exa m was performed which revealed no new neurologic deficits. Next, the injec crain was injected slowly and incrementally into the epidural space. ? ?Following the injection the needle was withdrawn flushed with lidocaine as it was fully extracted. The patient tolerated the procedure well and there were no apparent complications. After appropriate observa tion, the patient was dismissed in good condition under their own power. ? ADDITIONAL PROCEDURE COMMENTS Per side injected: Dexamethasone (10 mg/ml): 1cc Lidocaine 2%: 1cc Omnipaque (300 u/ml): 1cc CONSENT Consent obtained: written UNIVERSAL PROTOCOL All relevant documentation and testing w ere reviewed and available. All required blood products, implants, devic es and or special equipment were made available as applicable. Pre-proced ure verification was conducted and the correct site was marked if required. A fire risk assessment was done as applicable. The procedural time-out t o verify correct patient, correct side/site, and procedure was conducted p rior to performing the procedure and confirmed in a procedural pause. PRE-PROCEDURE DETAILS Procedure purpose: diagnostic and therap eutic Appropriate hand hygiene, gown, cap, mas k, protective eyewear, sterile gloves, skin preparation, sterile drape, and strict aseptic technique were utilized as applicable for the procedure : yes ?? Site preparation: chlorhexidine SEDATION / ANESTHESIA Anesthesia method: local infiltration Local infiltrate type: lidocaine Harman [facility]BERS FLUOROSCOPY PROCEDURES Performing Organization Address City/State/ZIP Code Phon e Number [id number] [facility] documented in this encounter Visit Diagnoses Diagnosis Pain Low Back Other Radiculopathy Pain Low Back Other Radiculopathy documented in this encounter Additional Health Concerns Assessment Noted Time PHQ-9 Depression Total Score: 11 01/02/2022 12:02 PM C DT documented as of this encounter Care Teams Sales Rep Relationship Specialty Start Date End Date Anthony Carpenter, SUBPOENA SERVER, C.N.P., PCP - General Family Medicine M.S.N. [address] [address] documented as of this encounter
--- OUTSIDE RECORDS SUMMARY | 2022-08-19 06:48 | XMS_ITS | Encounter Summary ---
:1975 Author Organization [facility] Address [address] [place] [address] Care Team Providers Name Role Phone Anthony Carpenter APRN C.N.P., M.S.N. Primary Care Provider + Reason for Visit Reason Comments Back Problem Encounter Details Date Type Department Care Team Description 04/01/2022 Emergency [facility] Pain Low Back Acute [address] (Primary Dx) [place] [address] Social History Tobacco Use Types Packs/Day Years [...] or relatives? How often do you attend denominational or Patient refused 2020 amish services? Do you belong to any clubs or No 07/17/2021 organizations such as denominational groups, unions, fraternal or athletic groups, or [...] on file documented as of this encounter Medications at Time of Discharge Medication Sig Dispensed Refills Start Date End Date acetaminophen Take 1,000 mg by 0 (for_TYLENOL) 500 mg mouth. tablet albuterol inhaler Inhale 2 puffs 3 Inhaler 3 08/09/2020 every 4 (four) hours as needed for wheezing or shortness of breath. sertraline (ZOLOFT) 50 Take 1 tablet (50 45 tablet 0 2021 mg tabletIndications: mg total) by mouth Depression Major One daily. Take half Episode Moderate (HCC) tablet (25mg) for 1 week. Then increase to 1 tablet daily. gabapentin (NEURONTIN) Start by taking 270 capsule 3 022 05/08/2022 300 mg capsule 1capsules per day and titrate, using the Fast Track titration calender, to 3 times per day- to maximal dose of 3,600mg/day lidocaine (LIDODERM) 5 % Place 1 patch on 30 patch 0 08/0105/08/2022 the skin daily. Apply to abdominal wall. meloxicam (MOBIC) 15 mg Take 1 tablet (15 30 tablet 0 03/2505/08/2022 tabletIndications: Pain mg total) by mouth Back daily. documented as of this encounter Plan of Treatment Not on filedocumented as of this encounter Visit Diagnoses Diagnosis Pain Low Back Acute - Primary documented in this encounter Additional Health Concerns Assessment Noted Time PHQ-9 Depression Total Score: 11 01/02/2022 12:02 PM C DT documented as of this encounter Care Teams Php Software Engineer Relationship Specialty Start Date End Date Anthony Carpenter, ELA, C.N.P., PCP - General Family Medicine M.S.N. [address] [address] documented as of this encounter
--- OUTSIDE RECORDS SUMMARY | 2022-08-19 06:48 | XMS_ITS | Encounter Summary ---
:1975 Author Organization [facility] Address [address] [place] [address] Care Team Providers Name Role Phone Markuslanre Caterina Raza APRN.NCristine, M.S.N. Primary Care Provider + Encounter Details Date Type Department Care Team Description 04/02/2022 Clinical Communication Department of Physical [place] , Medicine and Harman Javier M.D. Rehabilitation in [address] [place], [place] [address] [address] [place] [address] [facility] [phone] Social History Tobacco Use Types Packs/Day Years [...] you attend catholic or Patient refused 2020 amish services? Do [...] to pay for the very basics like [employer] hat hard 07/17/2021 food, housing, medical care, [...] place to sleep or slept in a snf (including now)? Education Answer Date Recorded What is the highest level of school you have Some college, n o degree 07/17/2021 completed or the highest degree you have received? Sex Assigned at Date Recorded Not on file documented as of this encounter Miscellaneous Notes Telephone Encounter - Hadley Lopez - 04/02/2022 1:41 PM CDT Patient called in, returning call to [facility]. Unable to get a hold of [facility] as it was lunch break. Please call patient back. Telephone Encounter - Tori Rosales - 04/02/2022 11:31 AM CDT Reason for Communication: Patient requesting a call back from a PMR nurse. He would like to know whyhis appt for 06/11 was canceled. Current Can Nursing/Provider leave a detailed message?: yes Did the patient refuse triage through Nurse line? (for symptom based concerns): na Action Needed: Call back and advise. Name of Medication (if relevant): na Please send all scheduling replies to scheduling pool. documented in this encounter Plan of Treatment Not on filedocumented as of this encounter Visit Diagnoses Not on filedocumented in this encounter Additional Health Concerns Assessment Noted Time PHQ-9 Depression Total Score: 11 01/02/2022 12:02 PM C DT documented as of this encounter Care Teams Restorative Art Embalmer Relationship Specialty Start Date End Date Anthony Carpenter, ELA, C.N.P., PCP - General Family Medicine M.S.N. [address] [place] [address] documented as of this encounter
--- OUTSIDE RECORDS SUMMARY | 2022-08-19 06:48 | XMS_ITS | Encounter Summary ---
:1975 Author Organization [facility] Address [address] [place] [address] Care Team Providers Name Role Phone Anthony Carpenter APRN C.N.P., M.S.N. Primary Care Provider + Reason for Referral Outpatient (Routine) - Closed Specialty Diagnoses / Procedures Referred By Contact Refer red To Contact Diagnoses Pain Low Back Other Radiculopathy [facility] [place] [facility] Procedures FL Lumbar Spine Transforaminal Epidural Injection Bilateral OR INJ ANES FORAMEN EPI LUMB SNGL M.D. [address] [place] [phone] Referral ID Status Reason Start Date Expiration Date Visits Requ ested Visits Authorized [id number] Closed 03/19/2022 03/19/2023 1 1 Reason for Visit Outpatient (Routine) - Closed Specialty Diagnoses / Procedures Referred By Contact Refer red To Contact Diagnoses Pain Low Back Other Radiculopathy [facility] [place] [facility] Procedures FL Lumbar Spine Transforaminal Epidural Injection Bilateral OR INJ ANES FORAMEN EPI LUMB SNGL M.D. [address] [place] [address] [phone] Referral ID Status Reason Start Date Expiration Date Visits Requ ested Visits Authorized [id number] Closed 03/19/2022 03/19/2023 1 1 Encounter Details Date Type Department Care Team Description 03/20/2022 Hospital Encounter Department of [place], Pain Low Back Other; Radiology in Harman Javier M.D. Radiculopathy [place], [place] [address] [place] [phone] Social History Tobacco Use Types Packs/Day Years [...] you attend adventism or Patient refused 2020 confucianism services? Do you belong to any clubs [...] place to sleep or slept in a fdc (including now)? Education Answer Date Recorded What is the highest level of school you have Some college, n o degree 07/17/2021 completed or the highest degree you have received? Sex Assigned at Date Recorded Not on file documented as of this encounter Last Filed Vital Signs Vital Sign Reading Time Taken Comments Blood Pressure 146/92 03/20/2022 2:50 PM CDT Pulse 89 03/20/2022 2:50 PM CDT Temperature 36.7 ??C (98.1 ??F) 03/20/2022 2:29 PM CDT Respiratory Rate - - Oxygen Saturation 98% 03/20/2022 2:50 PM CDT Inhaled Oxygen Concentration - - Weight - - Height - - Body Mass Index - - documented in this encounter Discharge Instructions Patient InstructionsHarman Gillette M.D. - 03/20/2022 4:04 PM CDT Images from the original note were not included. Patient Education Spinal Injections: Epidural, Facet Joint, Sacroiliac Joint, and Nerve Root If you have questions after reading this information, call the health careprovider who ordered your injections. What Is the Spinal Cord? Your spinal cord is a long bundle of nerves that runs through a tunnel in yourspine. The tunnel is called the spinal canal. Your spinal canal runs from the bottom of your skull to your tailbone. The spinal cord ends just below the level of your lowest rib. Below that, the spinal canal holds a collection of individual nerves. Those nerves hang off ofyour spinal cord like strings of spaghetti. Your spinal cord and the nerves that come off it have three outer layers toprotect them. The layers are called membranes. The tough, outside layer is called the dura mater or dura membrane. Sitting just outside the spinal cord, but still inside the spinal canal, is the epidural space. In addition to ???space,?? that areaholds a thin layer of fat.See Figure 1. The epidural space gives your cord room to move as you move. Parts of your spine Your spine is made up of 33 bones called vertebrae. Nine vertebrae are fused together to form your tailbone, in your lower back. Twenty-four vertebrae can move on their own. They are hinged together by three joints: the disc in front of the spinal canal and the two pairs of joints behind the canal. One pair of joints faces upward, and the other pair facesdownward. See Figure 2. Together, these joints act a lot like the hinges on a door. They allow your vertebrae to move when you move -- while they keep your spinal column lined up,or aligned, as it should be. Why Get a Spinal Injection? Injections are done to identify areas in your back that cause you pain, torelieve pain or for both reasons. Your health care provider decides where to do the injections. This decision is based in part on yourreport of your pain. X-rays are used to guide theinjections. Common injection sites Facet joints Because these joints rub together when you move, the lower back and buttocksare common sites for pain. See Figure 3. Epidural space This space is just outside your spinal cord. This injection is commonly done for pain in the arms and legs, as well as the back. It also is done duringchildbirth. See Figure 3. Nerve roots Nerve roots are bundles of nerve fibers that come out from your spinal cord. They join to form nerves. Your brain and body use nerves to carry messages back and forth, including pain messages. A problem with a nerve root often causes pain in the arms or legs. Nerve root blocks, also called selective nerve rootblocks, are commonly done to find the location of the pain. See Figure 3. Sacroiliac joint The sacroiliac joint is a large joint in your lower back and buttocks area. Thelower back and buttocks are common sites for pain. See Figure 4. What Should You Do Before the Procedure? Plan to have someone drive you home. You should not drive for the rest of the day. If you do not have a medical van driver, your appointment may need to be rescheduled. Plan to have someone else care for any children or adults who rely on you for care. You may not be able to move around as well as you normally would for the rest of the day after the procedure. Eat and drink as usual on the appointment day, unless you have been told otherwise. Tell your health care provider whether you: Have had problems with cortisone or corticosteroid injections in the past. Have had an injection done somewhere other than here. If yes, tell your care provider when that happened. Are or think you may be . Have diabetes. Take blood-thinning medications. (See blood-thinning medication information.) Are allergic to iodine, latex or local anesthetics. Are taking an antibiotic for an infection. Have had a temperature of 100.4 degrees Fahrenheit (38 degrees Celsius) or higher in the last two weeks. Have an infection. You cannot have the injection if you have signs of infection or if you are takingantibiotics. Signs of infection may include: Temperature of 100.4 degrees Fahrenheit (38 degrees Celsius) or higher. Chills and aches. New or worsening cough. A burning sensation when urinating. If you have signs of infection, contact the health care provider who ordered the injection. Ask to schedule your appointment on another date. If you take blood-thinning medication Before your procedure, your blood-thinning medication routine may need to be changed. Talk with yourhealth care provider who manages these medications as soon as you can. Because blood-thinning medications affect clotting and bleeding, both the health care provider who manages these medications and the provider doing your procedure will need to decide if your medications need to change. If you are not sure whether you take medications that affectblood- thinning, contact your health care provider or pharmacist. What Usually Happens During the Appointment? Several health care providers are in the room during this procedure. If youhave any questions duringthe procedure, feel free to ask. You first change into a gown and use the restroom. Next, a member of your health care team helps youlie on your stomach. Monitors may be placed on you to record your blood pressure, heart rate and theamount of oxygen in yourblood. You stay awake during the procedure. The area to be injected is cleaned with alcohol or an iodine solution. Next, your health care provider gives you the injections. The injected fluid katrina mix of two medications. The first medication numbs the injection area. This medication is called a local anesthetic. It is given to lower the amount of pain you feel during the procedure and right after it. This medication usually wears off within two to eight hours. The second medication is the reason for your spinal injection. This medication is called a corticosteroid. It reduces swelling, also called inflammation, in the area. Note: This corticosteroid is not the kind of steroid that builds muscles. You may feel some discomfort or pain during the injections. If you feel a lot of pain, tell your health care provider. He or she may give you more localanesthetic. The injection procedure itself usually takes about 15 minutes. However, you should allow up to two hours for your appointment. It takes time to get you ready for the procedure. And you need to wait in the area for a while until youfeel ready to leave. What Do You Need to Know After the Procedure? You may stay in the area and rest quietly until you feel well enough to leave.For some people, this is 10 minutes. For other people, it may be longer. Every person responds in a different way to this procedure. You may have the following conditions, which may begin within an hour of the injection and lastup to four hours: Numbness, tingling or weakness in your arms, legs or both. Difficulty urinating or leaking urine. Dizziness or light-headedness caused by a drop in blood pressure. If these conditions persist longer than four hours, contact your health careteam. Your risk for falling is high In addition to your usual leg numbness or weakness, the medications injected today may make you unsteady on your feet. It can be easy to fall and hurt yourself when your legs feel numb, weak or unsteady. You may feel this way for a few hours after the injections. A fall could cause you to break a boneorcause serious injury to your back. Do what you can to avoid falling. After the injection, do not try to change your clothes without the help of a nurse. Be careful when you step on and off curbs, climb stairs and walk. Have someone help you until you feel better able to do these actions alone. Have someone remove any clutter and rugs from your floors, especially in the walkways. Wear shoes with low heels until you can walk steady again. Discomfort or pain After the local anesthetic wears off, your usual pain may return for a few days until you feel the anti-inflammatory effect of the corticosteroid. It may be about two weeks after the injection before you feel the greatest pain relief. You may have pain relief for a short period of time, a few weeks, a few months, or longer. For some people, these injections do not lower pain. Spine pain often is hard to sort out. Some people need more than one injection to find thesource of the pain or to get relief from the pain. For the first 24 hours: You may have a mild headache. The injected area may be numb and the site may be sore. Use covered ice packs to help with any discomfort or pain you feel. Do not leave an ice pack on for more than 20 minutes at a time. Do not put heat on the injected area. Heat may make you feel worse and may reduce the relief you could get from the injection. During the first three to seven days: The corticosteroid medication should begin to lower your pain. It is possible for the pain to feel worse before it begins to feel better. Rest the injection area and use pain medication as needed. Note: Some common pain relievers can thinyour blood. This may not be good for some people. Ask your health care provider what you should takefor pain. You may get a bruise at the injection site. Activity You must limit your activities for a while after this injection. For the rest of the day: Do not drive. Do not do any difficult or strenuous physical activities. Do not provide care for anyone who depends on your help. For the first 7 to 10 days: You may do mild activities. Ask your health care provider what you may try to do. If you feel like your pain may be returning: Reduce your activity and do less for a few days. Slowly work back to doing more activity again. Bathing For the first 48 hours: You may shower. But do not soak the injection site in water for a long time. This means do not swim,take a bath or use hot tubs. Common side effects For a few days after your injection you may: Have ???hot flashes?? and a red, flushed look on your face. Feel very alert or ???revved up?? and sleep less. Have both positive and negative moods (mood swings). If you have diabetes Your blood glucose may rise for a few days after your injection. Check your blood glucose more often to make sure it does not stay high. If your blood glucose does not return to your usual range after a few days,tell your primary health care provider. If you have questions about your blood glucose, call the health care providerwho manages your diabetes. Illness not related to injection If you become ill, have an injury or need surgery after your injections, tellyour health care provider you had an injection of corticosteroid. When Should You Get Medical Care? Problems related to injections do not happen very often. Call your health careprovider if you have: Dizziness. A lot more back pain. Increased pain that goes down your leg or arm. Headache. Signs of an infection: A temperature of 100.4 degrees Fahrenheit (38 degrees Celsius) or higher. An injection site that becomes red, swollen, tender, or warm. Fluid that drains from the injection site. An odor from the injection site. Go to the nearest emergency room if you have: A lot of bleeding. This is bleeding that won???t stop: After you try to stop it with a tissue or gauze. After you put ice on the area for 10 minutes. Weakness or numbness. This is weakness or numbness that is constant and worse than you had right after the injection. This is not the same as the weakness or numbness you had for a few hours after the injection. Severe headache. This is a headache that you feel only when you stand or sit upright, not when you lie down. Allergic reaction. Signs of allergic reaction include: Rash. Swelling in your throat. Difficulty with swallowing. Difficulty with breathing. This material is for your education and information only. This content does not replace medical advice, diagnosis or treatment. New medical research may change this information. If you have questions about a medical condition, always talkwith your health care provider. ?? 2017 [employer] ([facility]). All rights reserved. [id number] documented in this encounter Medications at Time of Discharge Medication Sig Dispensed Refills Start Date End Date acetaminophen Take 1,000 mg by 0 (for_TYLENOL) 500 mg mouth. tablet albuterol inhaler Inhale 2 puffs 3 Inhaler 3 08/09/2020 every 4 (four) hours as needed for wheezing or shortness of breath. sertraline (ZOLOFT) 50 mg Take 1 tablet (50 45 tablet 0 tabletIndications: mg total) by Depression Major One mouth daily. Take Episode Moderate (HCC) half tablet (25mg) for 1 week. Then increase to 1 tablet daily. dextroamphetamine-amphetam Take 1 tablet (10 60 tablet 0 03/25/2022 ine (AdderalL) 10 mg mg total) by tablet mouth 2 (two) times a day. diazePAM (VALIUM) 5 mg Take 1 tablet (5 14 tablet 0 03/14/ 022 03/25/2022 tabletIndications: Pain mg total) by Low Back Other mouth at bedtime as needed for muscle spasms. gabapentin (NEURONTIN) 300 Start by taking 270 capsule 3 05/202205/08/2022 mg capsule 1capsules per day and titrate, using the Fast Track titration calender, to 3 times per day- to maximal dose of 3,600mg/day lidocaine (LIDODERM) 5 % Place 1 patch on 30 patch 0 08/0105/08/2022 the skin daily. Apply to abdominal wall. methylPREDNISolone (MEDROL Take as directed 21 tablet 0 12/202103/25/2022 DOSEPAK) 4 mg on package. tabletIndications: Pain Low Back Other, Radiculopathy documented as of this encounter Procedure Notes Harman Gillette M.D. - 03/20/2022 2:30 PM CDTAssociated Order(s): FL Lumbar Spine Transforaminal Epidural Injection Bilateral Pre-Procedure Diagnose(s): Pain Low Back Other; Radiculopathy Post-Procedure Diagnose(s): Pain Low Back Other; Radiculopathy FL Lumbar Spine Transforaminal Epidural Injection Bilateral Date/Time: 03/20/2022 4:03 PM Performed by: Harman Gillette M.D. Authorized by: Harman Gillette M.D. Care team members present 1. Luz Drake L.PKate PROCEDURE SUMMARY Indications: Radiculitis and Spondylosis without myelopathy Pre-procedural pain: 10/10 Post-procedural pain: 0/10 Site: lumbar Lumbar: transforaminal epidural injection Transforaminal epidural injection: Right L5 and Left L5 Needle or RF cannula: Spinal Needle size: 22 G Needle length: 5 in Flow: peripheral and central Patient position: prone IMAGING Fluoroscopic image guidance used to localize target, identify at risk structures, and dynamically used to direct therapy to the target. Image(s) acquired and saved. INJECTED MEDICATIONS Total volume of injectate (mL): dexamethasone (10 mg/mL) 2 mL , PF lidocaine (2%) 2 mL , Omnipaque (300 u/ml) 2 mL Total steroid in injectate (mg): dexamethasone 20 mg PROCEDURE DETAILS Transforaminal epidural injection - lumbar: After identifying the appropriate pedicle fluoroscopically with an oblique view. A spinal needle was then advanced under fluoroscopic guidance to the posterior aspect of the neural foramen. Appropriate foraminal depth was determined with a lateral fluoroscopic view, and AP visualization confirmed needle positioning at approximately the 6 o'clock position relative to the pedicle. After negative aspiration, contrast was injected using live fluoroscopy and digital subtraction angiography, confirming appropriate transforaminal spread without evidence of intravascular or intrathecal uptake. A local anesthetic test dose consisting of 1 mL of 2% lidocaine was injected through the needle. After an appropriate period of observation, a directed neurological exam was performed which revealed no new neurologic deficits. Next, the injectate was injected slowly and incrementally into the epidural space. Following the injection the needle was withdrawn flushed with lidocaine as it was fully extracted. The patient tolerated the procedure well and there were no apparent complications. After appropriate observation, the patient was dismissed in good condition under their own power. ADDITIONAL PROCEDURE COMMENTS Per side injected: Dexamethasone (10 mg/ml): 1cc Lidocaine 2%: 1cc Omnipaque (300 u/ml): 1cc CONSENT Consent obtained: written UNIVERSAL PROTOCOL All relevant documentation and testing were reviewed and available. All required blood products, implants, devices and or special equipment were made available as applicable. Pre-procedure verificationwas conducted and the correct site was marked if required. A fire risk assessment was done as applicable. The procedural time-out to verify correct patient, correct side/site, and procedure was conducted prior to performing the procedure and confirmed in a procedural pause. PRE-PROCEDURE DETAILS Procedure purpose: diagnostic and therapeutic Appropriate hand hygiene, gown, cap, mask, protective eyewear, sterile gloves, skin preparation, sterile drape, and strict aseptic technique were utilized as applicable for the procedure: yes Site preparation: chlorhexidine SEDATION / ANESTHESIA Anesthesia method: local infiltration Local infiltrate type: lidocaine documented in this encounter Nursing Notes Whitney Flynn R.N. - 03/20/2022 2:30 PM CDT Patient denies diabetes, active infections, use of blood thinners. Patient states he will have someone here to pick him up. Whitney Flynn R.N. - 03/20/2022 2:30 PM CDT Patient tolerated procedure without complication and site(s) were well coagulated with adhesive bandaids applied. Patient was able to ambulate independently per baseline and was discharged ambulatory. documented in this encounter Plan of Treatment Not on filedocumented as of this encounter Procedures Procedure Name Priority Date/Time Associated Comments Diagnosis FL LUMBAR SPINE RAD - Routine 03/20/2022 2:53 Pain Low Back Results for TRANSFORAMINAL (most inpatients PM CDT Other this procedure EPIDURAL INJECTION and all Radiculopathy are in t he BILATERAL outpatients) results section. documented in this encounter Results FL LUMBAR SPINE TRANSFORAMINAL EPIDURAL INJECTION BILATERAL (03/20/2022 2:53 PM CDT) Specimen (Source) Anatomical Location Collection Method / Collectio n Time Received Time / Laterality Volume Narrative 8020 LOS SEMN - 03/20/2022 4:03 PM CDT Harman Gillette [...] local infiltration Local infiltrate type: lidocaine Harman Gillette M.D. IMJamar FLUOROSCOPY PROCEDURES Performing Organization Address City/State/ZIP Code Phon e Number [id number] [facility] documented in this encounter Visit Diagnoses Diagnosis Pain Low Back Other Radiculopathy documented in this encounter Administered Medications Inactive Administered Medications - up to 3 most recent administrations Medication Order MAR Action Action Date Dose Rate Site dexAMETHasone injection 10 mg Given 03/20/2022 2:37 PM CDT 20 mg Other (DECADRON) 10 mg, intramuscular, Once, On Sera 03/20/22 at 1430, For 1 dose, Epidural is route of administration iohexoL 300 mg iodine/mL solution 1 mL Given 03/20/2022 2:37 PM CDT 1 mL (OMNIPAQUE) 1 mL, epidural, Once in imaging, contrast, Starting on Sera 03/20/22 at 1429, For 1 dose, Epidural is route of administration lidocaine (PF) 20 mg/mL (2 %) injection 1 mL Given 03/20/2022 2: 37 PM CDT 1 mL (XYLOCAINE) 1 mL, epidural, Once, On Sera 03/20/22 at 1430, For 1 dose lidocaine 10 mg/mL (1 %) injection 2 mL Given 03/20/2022 2:37 PM CDT 2 mL (XYLOCAINE) 2 mL, injection, Once, On Sera 03/20/22 at 1430, For 1 dose sodium bicarbonate injection 50 mEq Given 03/20/2022 2:37 PM CDT 1 mEq 50 mEq, intravenous, Once, On Sera 03/20/22 at 1430, For 1 dose documented in this encounter Additional Health Concerns Assessment Noted Time PHQ-9 Depression Total Score: 11 01/02/2022 12:02 PM C DT documented as of this encounter Care Teams Manager Party Relationship Specialty Start Date End Date Anthony Carpenter APRN, C.N.P., PCP - General Family Medicine M.S.N. [address] [phone] documented as of this encounter
--- OUTSIDE RECORDS SUMMARY | 2022-08-19 06:48 | XMS_ITS | Encounter Summary ---
:1975 Author Organization [facility] Address [address] [place] [address] Care Team Providers Name Role Phone Aniacynthia Anthony Zuñiga APRN C.N.P., M.S.N. Primary Care Provider + Encounter Details Date Type Department Care Team Description 03/18/2022 Orders Only [facility] Screening Lipid [address] [place] [address] (Wo rk) Social History Tobacco Use Types Packs/Day Years [...] or relatives? How often do you attend mu-ism or Patient refused 2020 methodist services? Do you belong to any clubs or No 07/17/2021 organizations such as mu-ism groups, unions, fraternal or athletic groups, or [...] as of this encounter Plan of Treatment Scheduled Orders Name Type Priority Associated Diagnoses Order S chedule Lipid Panel Lab Routine Screening Lipid Expected: , Expires: 09/14/2022 documented as of this encounter Visit Diagnoses Diagnosis Screening Lipid documented in this encounter Additional Health Concerns Assessment Noted Time PHQ-9 Depression Total Score: 11 01/02/2022 12:02 PM C DT documented as of this encounter Care Teams Drug Department Worker Relationship Specialty Start Date End Date Anthony Carpenter, ELA, C.N.P., PCP - General Family Medicine M.S.N. [address] [phone] documented as of this encounter
--- OUTSIDE RECORDS SUMMARY | 2022-08-19 06:48 | XMS_ITS | Encounter Summary ---
:1975 Author Organization [facility] Address [address] [place] [address] Care Team Providers Name Role Phone Anthony Carpenter APRN C.N.P., M.S.N. Primary Care Provider + Reason for Visit Reason Comments Back Pain Encounter Details Date Type Department Care Team Description 03/14/2022 Nurse Triage Department of Prerna Carpenter, Back Pain Medicine, [facility], R.N. in [facility] [address] [facility] [address] [place] [address] [place] [address] [facility] [phone] Social History Tobacco Use Types Packs/Day Years [...] you attend hinduism or Patient refused 2020 holiness services? Do you belong to any clubs [...] to pay for the very basics like [employer] hat hard 07/17/2021 food, housing, medical care, [...] place to sleep or slept in a [place] health care facility (including now)? Education Answer Date Recorded What is the highest level of school you have Some college, n o degree 07/17/2021 completed or the highest degree you have received? Sex Assigned at Date Recorded Not on file documented as of this encounter Miscellaneous Notes Telephone Encounter - Prerna Mata R.N. - 03/14/2022 7:49 AM CDT Chief Complaint / Reason for Call Patient is a 46 y.o. male calling regarding Back Pain. Assessment Concern: Worsening chronic low right sided back pain and left shoulder pain. He rates the pain a 10/10, stating worst pain ever. He is unable to sleep due to the pain. He notes bilateral leg tingling and numbness. Hes been to the ED twice in the past month for this. Present for: About one month Home cares tried: Tylenol, heat, ice, motrin, lidocaine patches Calling to request: Appointment The recommended disposition is See a health care provider within 4 hours. Patient was warm transferred to [facility] at the clinic for further assistance. Care Advice Patient/Caregiver understands and will follow care advice?: Yes, able to teach back SEE HCP WITHIN 4 HOURS CALL BACK IF: * You become worse PAIN MEDICINES: * For pain relief, you can take either acetaminophen, ibuprofen, or naproxen. * They are imuz-tkh-oyqfzis (OTC) pain drugs. You can buy them at the drugstore. Reason for Disposition ??? [1] SEVERE back pain (e.g., excruciating, unable to do any normal activities) AND [2] not improved 2 hours after pain medicine Protocols used: BACK [id number] documented in this encounter Plan of Treatment Not on filedocumented as of this encounter Visit Diagnoses Not on filedocumented in this encounter Additional Health Concerns Assessment Noted Time PHQ-9 Depression Total Score: 11 01/02/2022 12:02 PM C DT documented as of this encounter Care Teams Lab Rep Relationship Specialty Start Date End Date Anthony Carpenter, ELA, C.N.P., PCP - General Family Medicine M.S.N. [address] [phone] documented as of this encounter
--- OUTSIDE RECORDS SUMMARY | 2022-08-19 06:48 | XMS_ITS | Encounter Summary ---
:1975 Author Organization [facility] Address [address] [place] [address] Care Team Providers Name Role Phone Anthony Carpenter APRN, C.N.P., M.S.N. Primary Care Provider + Encounter Details Date Type Department Care Team Description 03/25/2022 Orders Only Department of Family Anthony Carpenter APR N, Medicine, [facility], C.N.P ., M.S.N. in [facility] [address] [place] [phone] (Wo rk) Social History Tobacco Use Types [...] or relatives? How often do you attend voodoo or Patient refused 2020 protestant services? Do you belong to any clubs or No 07/17/2021 organizations such as voodoo groups, unions, fraternal or athletic groups, or [...] to pay for the very basics like [employer] hat hard 07/17/2021 food, housing, medical care, [...] documented as of this encounter Care Teams Insurance Defense Paralegal Relationship Specialty Start Date End Date Anthony Carpenter, ELA, C.N.P., PCP - General Family Medicine M.S.N. [address] [phone] documented as of this encounter
--- OUTSIDE RECORDS SUMMARY | 2022-08-19 06:48 | XMS_ITS | Encounter Summary ---
:1975 Author Organization [facility] Address [address] [place] [address] Care Team Providers Name Role Phone Jayden Anthony Zuñiga APRN C.N.Gabriel., M.S.N. Primary Care Provider + Encounter Details Date Type Department Care Team Description 03/14/2022 Clinical Communication Department of [facility] Robbie Blas, Medicine, [place] [facility], in [facility] [address] [facility], [address] [facility] [address] [place], [place] [phone] (Work) [phone] Social History Tobacco Use Types Packs/Day Years [...] you attend adventism or Patient refused 2020 christianity services? Do you belong to any clubs [...] to pay for the very basics like [employer] hat hard 07/17/2021 food, housing, medical care, [...] this encounter Miscellaneous Notes Telephone Encounter - Marly Blas M.D. - 03/20/2022 6:10 PM CDT Thank you so very much! Electronically signed by: Marly Blas M.D. 03/20/22 6:10 PM CDT Telephone Encounter - Concepcion Sherwood L.P.NPatricia - 03/19/2022 10:04 AM CDT SUBJECTIVE CHIEF COMPLAINT / REASON FOR CALL No chief complaint on file. Information Discussed Patient will call [facility] and get MRI and radiology report sent to Dr. Gillette. PLAN Disposition/Recommendation: NA Information/Education: patient/caller able to teach back Caller agreeable to plan of care: yes The following references were used: provider Dr. Blas Telephone Encounter - Marly Blas M.D. - 03/18/2022 6:32 PM CDT Nurse: Please call this patient and let him know that Dr. Gillette needs the MRI images and radiology report from [facility] before he can be scheduled. Please help him get this expedited. Thanks. Electronically signed by: Marly Blas M.D. 03/18/22 6:34 PM CDT Telephone Encounter - Harman Gillette M.D. - 03/18/2022 9:14 AM CDT It appears that a CT of the abdomen was completed in the emergency department in [place] but that the MRI may have been completed [facility]: I have reviewed the MRI and discussed case with [facility] Dr. Rhodes who feels his MRI findings of the small shallow disc herniation would not be causing urinary dribbling or sensory deficits as patient describes. No indication for repeat imaging or admission for his neurologic and urinary symptoms. The MRI images and radiology report will need to be obtained from [facility] prior to scheduling him. Please let me know in these are received and I will get him set up for epidural right away. Thank you Telephone Encounter - Marly Blas M.D. - 03/14/2022 5:21 PM CDT He had his MRI done in [facility] in January this year. Shouldn't [facility] have access to both the images and the actual report when done in the [facility]? Thanks. Electronically signed by: Marly Blas M.D. 03/14/22 5:23 PM CDT Telephone Encounter - Harman Gillette M.D. - 03/14/2022 4:10 PM CDT Marly, I do not see the MRI in [facility]. Was this done at an outside facility? If so, I can order the epidural but we will need both the images and radiology report added to [facility] before he can be scheduled. Thank you, Tai Telephone Encounter - Marly Blas M.D. - 03/14/2022 3:[address] Harman Gillette, This patient is experiencing severe low back pain. He can barely walk. His MRI shows a herniated disk at level L5-S1. Would he be a candidate for a steroid injection? If so, he would like to be scheduled as soon as possible. Thank you. Electronically signed by: Marly Blas M.D. 03/14/22 3:54 PM CDT documented in this encounter Plan of Treatment Not on filedocumented as of this encounter Visit Diagnoses Not on filedocumented in this encounter Additional Health Concerns Assessment Noted Time PHQ-9 Depression Total Score: 11 01/02/2022 12:02 PM C DT documented as of this encounter Care Teams Retail Performance Specialist Relationship Specialty Start Date End Date Anthony Carpenter, ELA, C.N.P., PCP - General Family Medicine M.S.N. [address] [phone] documented as of this encounter
--- OUTSIDE RECORDS SUMMARY | 2022-08-19 06:48 | XMS_ITS | Encounter Summary ---
:1975 Author Organization [facility] Address [address] [place] [address] Care Team Providers Name Role Phone Anthony Carpenter APRN, C.N.PPatricia, M.S.N. Primary Care Provider + Reason for Visit Reason Comments Med Refill Encounter Details Date Type Department Care Team Description 03/17/2022 Refill Department of Family Medicine, Anthony Carpenter APRN, Med Refill [facility], in [place], C. N.Harsha, M.S.N. [place] [address] [address] [place] [address] [place] [address] [facility] [phone] Social History Tobacco Use Types Packs/Day Years [...] or relatives? How often do you attend taoist or Patient refused 2020 scientology services? Do you belong to any clubs or No 07/17/2021 organizations such as taoist groups, unions, fraternal or athletic groups, or [...] place to sleep or slept in a retirement (including now)? Education Answer Date Recorded What is the highest level of school you have Some college, n o degree 07/17/2021 completed or the highest degree you have received? Sex Assigned at Date Recorded Not on file documented as of this encounter Miscellaneous Notes Telephone Encounter - Reshma Delong RDN, IESHA - 03/17/2022 9:59 AM CDT Nurse review: Unable to forward request to provider; Controllled Substance, CSA Primary Provider: Anthony Carpenter APRN, C.N.P., M.S.N. Requested Prescriptions Pending Prescriptions Disp Refills ??? dextroamphetamine-amphetamine (AdderalL) 10 mg tablet 60 tablet 0 Sig: Take 1 tablet (10 mg total) by mouth 2 (two) times a day. [id number] - [address]?[phone] Telephone Encounter - Leona-Alexa Quinones - 03/17/2022 9:23 AM CDT Provider: Anthony Carpenter APRN, Caterina.N.P., M.S.N. Patient called for Refills. Additional info only if applies: Requested Prescriptions Pending Prescriptions Disp Refills ??? dextroamphetamine-amphetamine (AdderalL) 10 mg tablet 60 tablet 0 Sig: Take 1 tablet (10 mg total) by mouth 2 (two) times a day. Pharmacy: [id number] - [place], [place] - [address] [place] [address] documented in this encounter Plan of Treatment Not on filedocumented as of this encounter Visit Diagnoses Not on filedocumented in this encounter Additional Health Concerns Assessment Noted Time PHQ-9 Depression Total Score: 11 01/02/2022 12:02 PM C DT documented as of this encounter Care Teams Tableau Analyst Relationship Specialty Start Date End Date Anthony Carpenter, ELA, C.N.P., PCP - General Family Medicine M.S.N. [address] [place] [address] documented as of this encounter
--- OUTSIDE RECORDS SUMMARY | 2022-08-19 06:48 | XMS_ITS | Encounter Summary ---
:1975 Author Organization [facility] Address [address] [place] [address] Care Team Providers Name Role Phone Markuslanre Anthony Zuñiga APRN C.N.Harsha, M.S.N. Primary Care Provider + Reason for Referral Outpatient (Routine) - Authorized Specialty Diagnoses / Procedures Referred By Contact Refer red To Contact Spine Diagnoses Pain Back Radiculopathy Desiree [facility] Caterina.Shonda.Harsha, M.S.N. [address] [place] [phone] Referral ID Status Reason Start Date Expiration Date Visits V isits Requested Authorized [id number] Authorized 03/28/2022 03/28/2023 1 1 utpatient (Routine) - Authorized Specialty Diagnoses / Procedures Referred By Contact Refer red To Contact Spine Diagnoses Pain Back Desiree Cope APRN, C.N.PPatricia, M.S.N. [address] [place] [phone] Referral ID Status Reason Start Date Expiration Visits Visits Date Requested Authorized [id number] Authorized No 03/25/2022 03/25/2023 1 1 access/unsa tisfactory access Reason for Visit Reason Comments Back Pain Had injections 03/20/22, not i mproving pain is worse Appointment Request (Routine) - Closed Specialty Diagnoses / Procedures Referred By Contact Refer red To Contact Family Medicine Referral ID Status Reason Start Date Expiration Date Visits Requ ested Visits Authorized [id number] Closed 03/17/2022 03/17/2023 1 1 Encounter Details Date Type Department Care Team Description 03/25/2022 Office Visit Department of Family Desiree Cope, Pain Back (Primary Dx); Medicine, [place] [facility], [facility] [address] [place] [phone] Social History Tobacco Use Types [...] or relatives? How often do you attend amish or Patient refused 2020 synagogue services? Do you belong to any clubs or No 07/17/2021 organizations such as amish groups, unions, fraternal or athletic groups, or [...] Sign Reading Time Taken Comments Blood Pressure 161/94 03/25/2022 2:59 PM CDT Pulse 94 03/25/2022 2:59 PM CDT Temperature 36.8 ??C (98.2 ??F) 03/25/2022 2:59 PM CDT Respiratory Rate - - Oxygen Saturation - - Inhaled Oxygen Concentration - - Weight 62.4 kg (137 lb 9.1 oz) 03/25/2022 2:59 PM CDT Height - - Body Mass Index 23.34 03/14/2022 3:23 PM CDT documented in this encounter Patient Instructions Patient InstructionsDesiree Cope APRN, C.N.P., M.S.N. - 03/25/2022 3:20 PM CDT Meloxicam daily with food documented in this encounter Progress Notes Desiree Cope APRN C.N.P., M.S.N. - 03/25/2022 3:00 PM CDT SUBJECTIVE CHIEF COMPLAINT / REASON FOR VISIT Back Pain (Had injections 03/20/22, not improving pain is worse) HISTORY OF PRESENT ILLNESS Alon Jaimes is a pleasant 46 y.o. male who presents to the clinic today for evaluation of low back pain Low back pain since November 2021, when he fell on the ice-landing on concrete. Since the fall, his low back pain has been gradually worsening in terms of severity. Reports constant low back sharp painwith associated numbness and tingling down the posterior thighs and calves. Aggravating activities include sitting on the toilet, twisting, or lying for long periods of time (difficulty sleeping). Alleviating factors include changing positions frequently. Did not tolerate physical therapy in the past.Has been on tylenol, aleve, steroids, valium, and gabapentin (low dose). Denies any recent trauma orfall. Denies voiding or bowel movement changes-increased pain with sitting on toilet. Consult with PMR 03/19/22-recommended PT and gabapentin titration and fast track therapy. Has not beentaking gabapentin because he doesn't like the way it makes me feel and side effect of night sweats. Transforaminal epidural injection done 03/20/22 without improvement in pain. He would like something stronger, like oxy for pain. Denies weakness in extremities or difficulty ambulating. He is concerned that he should potentially seeing a back surgeon due to his ongoing pain-requesting a referral to the [facility]. He is unable to work due to ongoing pain-3 week work note provided by Dr Gillette. REVIEW OF SYSTEMS: Gastrointestinal: Difficulty sitting to have a bm due to back pain Musculoskeletal: Positive for back pain. The following systems were negative: CV, Respiratory, GI, CURRENT MEDICATIONS Current Outpatient Medications Medication Sig Dispense Refill ??? acetaminophen (for_TYLENOL) 500 mg tablet Take 1,000 mg by mouth. ??? lidocaine (LIDODERM) 5 % Place 1 patch on the skin daily. Apply to abdominal wall. 30 patch 0 ??? sertraline (ZOLOFT) 50 mg tablet Take 1 tablet (50 mg total) by mouth daily. Take half tablet (25mg) for 1 week. Then increase to 1 tablet daily. 45 tablet 0 ??? albuterol inhaler Inhale 2 puffs every 4 (four) hours as needed for wheezing or shortness of breath. 3 Inhaler 3 ??? gabapentin (NEURONTIN) 300 mg capsule Start by taking 1capsules per day and titrate, using the Fast Track titration calender, to 3 times per day- to maximal dose of 3,600mg/day (Patient not taking:Reported on 03/25/2022) 270 capsule 3 ??? meloxicam (MOBIC) 15 mg tablet Take 1 tablet (15 mg total) by mouth daily. 30 tablet 0 No current facility-administered medications for this visit. ALLERGIES / CONTRAINDICATIONS Allergies Allergen Reactions ??? Gadolinium-Containing Contrast Media Rash ??? Adhesive Tape-Silicones Other (see comments) ??? Ketorolac Other (see comments) and Itching Cerner listed no reactions ??? Latex Other (see comments) Cerner listed no reactions ??? Penicillins Other (see comments) and GI intolerance Cerner listed no reactions ??? Tramadol Rash OBJECTIVE BP (!) 161/94 (BP Location: Right arm, Patient Position: Sitting, Cuff Size: Regular) Pulse 94 Temp 36.8 ??C (Temporal) Wt 62.4 kg BMI 23.34 kg/m?? PHYSICAL EXAMINATION Vitals reviewed. Constitutional General: He is not in acute distress. Appearance: Normal appearance. He is normal weight. He is not ill-appearing or toxic-appearing. HENT Head: Normocephalic and atraumatic. Pulmonary Effort: Pulmonary effort is normal. No respiratory distress. Musculoskeletal Right lower leg: No edema. Left lower leg: No edema. Skin General: Skin is warm and dry. Capillary Refill: Capillary refill takes less than 2 seconds. Neurological General: No focal deficit present. Mental Status: He is alert and oriented to person, place, and time. Gait: Gait is intact. Comments: Gait intact Psychiatric Attention and Perception: Attention normal. Mood and Affect: Affect normal. Mood is anxious. Speech: Speech normal. Behavior: Behavior normal. Behavior is cooperative. ASSESSMENT / PLAN 1. Pain Back-discogenic low back pain Low back pain-chronic since fall 12/03. No improvement with epidural injection in PMR 03/20/22 Pt has not titrated gabapentin dosing per schedule set forward from Dr Gillette due to night sweats from the medication. Per PDMP review, he did not fill the gabapentin prescription provided by Dr Gillette 03/19/22. Lumbar MRI done 01/23/22 at [facility]: Impression: 1. At L5-S1 there is a small shallow central disc herniation. No lateralization. 2. Mildleft facet osteoarthritis at L5-S1. Minor disc degenerative changes at T12-L1 and L1-2. 3. No evidence for intrinsic pathology or extrinsic compression of the conus medullaris or cauda equina. Discussed case with Dr Harman Gillette (PMR). Advised titration of Neurontin, PT, and meloxicam 15 mg daily (with food). Potential for a repeat epidural injection in two weeks. Dr Gillette to contact pt. Pt requested referral for [facility]-I have provided this today. - External referral physician (non-[facility]) - meloxicam (MOBIC) 15 mg tablet; Take 1 tablet (15 mg total) by mouth daily. Dispense: 30 tablet; Refill: 0 PATIENT EDUCATION Ready to learn, no apparent learning barriers were identified; learning preferences include listening. Explained diagnosis and treatment plan; patient expressed understanding of the content, discussed at length. All questions answered. Desiree Cope APRN, C.N.P., M.S.N. documented in this encounter Miscellaneous Notes Addendum Note - Desiree Cope APRN, C.NCristine, M.S.N. - 03/25/2022 3:00 PM CDT Addended by: DESIREE COPE on: 03/28/2022 08:22 PM Modules accepted: Orders documented in this encounter Plan of Treatment Scheduled Referrals Name Type Priority Associated Diagnoses Order S [facility] - Outpatient Referral Routine Pain Back Expected: General consult Radiculopathy 03/28/2022 (clinic) (Approximate), Expires: 06/28/2023 documented as of this encounter Visit Diagnoses Diagnosis Pain Back - Primary Radiculopathy documented in this encounter Additional Health Concerns Assessment Noted Time PHQ-9 Depression Total Score: 11 01/02/2022 12:02 PM C DT documented as of this encounter Care Teams Hris Developer Relationship Specialty Start Date End Date Anthony Carpenter APRN, C.N.P., PCP - General Family Medicine M.S.N. [address] [place] [phone] documented as of this encounter
--- OUTSIDE RECORDS SUMMARY | 2022-08-19 06:48 | XMS_ITS | Encounter Summary ---
:1975 Author Organization [facility] Address [address] [place] [address] Care Team Providers Name Role Phone Markuslanre Anthony Zuñiga APRN C.N.Gabriel., M.S.N. Primary Care Provider + Reason for Visit Reason Comments Medical Information Encounter Details Date Type Department Care Team Description 03/27/2022 Clinical Department of [facility] Medical Communication Physical Medicine and [facility] in [place], [place] [address] [place] [phone] Social History Tobacco Use [...] or relatives? How often do you attend yarsani or Patient refused 2020 scientology services? Do you belong to any clubs or No 07/17/2021 organizations such as yarsani groups, unions, fraternal or athletic groups, or [...] to pay for the very basics like [employer] hat hard 07/17/2021 food, housing, medical care, [...] place to sleep or slept in a [facility] (including now)? Education Answer Date Recorded What is the highest level of school you have Some college, n o degree 07/17/2021 completed or the highest degree you have received? Sex Assigned at Date Recorded Not on file documented as of this encounter Miscellaneous Notes Telephone Encounter - Julio Champagne - 03/27/2022 4:04 PM CDT Reason for Communication: Kenzie the patients girlfriend called and said she wanted emergent call sent back to mar[facility] is[facility], but would not say what for, please advise Current Can Nursing/Provider leave a detailed message: yes Did the patient refuse triage through Nurse line? (for symptom based concerns): Action Needed: Name of Medication (if relevant): documented in this encounter Plan of Treatment Not on filedocumented as of this encounter Visit Diagnoses Diagnosis Depression - Primary documented in this encounter Additional Health Concerns Assessment Noted Time PHQ-9 Depression Total Score: 11 01/02/2022 12:02 PM C DT documented as of this encounter Care Teams Epoxy Specialist Relationship Specialty Start Date End Date Anthony Carpenter, ELA, C.N.P., PCP - General Family Medicine M.S.N. [address] [place] [phone] documented as of this encounter
--- OUTSIDE RECORDS SUMMARY | 2022-08-19 06:48 | XMS_ITS | Encounter Summary ---
:1975 Author Organization [facility] Address [address] [place] [address] Care Team Providers Name Role Phone Anthony Carpenter APRN C.N.PPatricia, M.S.N. Primary Care Provider + Encounter Details Date Type Department Care Team Description 05/09/2022 Clinical Communication Department of [facility] Anthony Carpenter, Medicine, [place] C.N.PPatricia, Clinic, [facility] [place], [facility] [address] [place] [phone] Social History Tobacco Use Types Packs/Day Years [...] or relatives? How often do you attend baptism or Patient refused 2020 pentecostal services? Do you belong to any clubs or No 07/17/2021 organizations such as baptism groups, unions, fraternal or athletic groups, or [...] to pay for the very basics like [employer] hat hard 07/17/2021 food, housing, medical care, [...] place to sleep or slept in a skilled nursing (including now)? Education Answer Date Recorded What is the highest level of school you have Some college, n o degree 07/17/2021 completed or the highest degree you have received? Sex Assigned at Date Recorded Not on file documented as of this encounter Miscellaneous Notes Telephone Encounter - Blanquita Mari - 05/12/2022 11:41 AM CDT Evette is calling in and stated that the patient still has not received his Adderall refill, and heis out of medication. Please call Evette back. Telephone Encounter - Florinda Arndt, L.P.N. - 05/09/2022 12:03 PM CDT Spoke to PCP we are still waiting for some of the tests to come back, we will contact patient when this is done. Telephone Encounter - Vanessa Greco - 05/09/2022 11:27 AM CDT Reason for Communication: Pt calling in. He said he saw PCP yesterday and did a drug screen. Pt saidPCP was going to send in a script for his Adderall to [facility] pharmacy in [place] after drug screen results were in. Pt checked with pharmacy this morning and was told script has not been received. Pt said he is completely out of this medication. Current (S.O.'s phone number) Can Nursing/Provider leave a detailed message?: Yes Did the patient refuse triage through Nurse line? (for symptom based concerns): Action Needed: Please send in script for Adderall, if appropriate Name of Medication (if relevant): Adderall 10 mg Please send all scheduling replies to scheduling pool. documented in this encounter Plan of Treatment Not on filedocumented as of this encounter Visit Diagnoses Not on filedocumented in this encounter Additional Health Concerns Assessment Noted Time PHQ-9 Depression Total Score: 11 01/02/2022 12:02 PM C DT documented as of this encounter Care Teams Proposal Specialist Relationship Specialty Start Date End Date Anthony Carpenter, ELA, C.N.P., PCP - General Family Medicine M.S.N. [address] [phone] documented as of this encounter
--- OUTSIDE RECORDS SUMMARY | 2022-08-19 06:48 | XMS_ITS | Encounter Summary ---
:1975 Author Organization [facility] Address [address] [place] [address] Care Team Providers Name Role Phone Markuslanre Caterina Raza APRN.NCristine, M.S.N. Primary Care Provider + Encounter Details Date Type Department Care Team Description 03/19/2022 Clinical Communication Department of Physical [place] , Medicine and Harman Javier M.D. Rehabilitation in [address] [place], [place] [address] [address] [place] [address] [facility] [phone] Social History Tobacco Use Types Packs/Day Years [...] or relatives? How often do you attend baptist or Patient refused 2020 rastafarian services? Do you belong to any clubs or No 07/17/2021 organizations such as baptist groups, unions, fraternal or athletic groups, or [...] to pay for the very basics like [employer] hat hard 07/17/2021 food, housing, medical care, [...] place to sleep or slept in a intermediate (including now)? Education Answer Date Recorded What is the highest level of school you have Some college, n o degree 07/17/2021 completed or the highest degree you have received? Sex Assigned at Date Recorded Not on file documented as of this encounter Miscellaneous Notes Telephone Encounter - Harman [place] M.D. - 03/19/2022 11:23 AM CDT Please reach out to the patient and assist him with getting his outside lumbar MRI images and [facility] Thank you documented in this encounter Plan of Treatment Not on filedocumented as of this encounter Visit Diagnoses Not on filedocumented in this encounter Additional Health Concerns Assessment Noted Time PHQ-9 Depression Total Score: 11 01/02/2022 12:02 PM C DT documented as of this encounter Care Teams Manager Field Sales Relationship Specialty Start Date End Date Anthony Carpenter, ELA, C.N.P., PCP - General Family Medicine M.S.N. [address] [phone] documented as of this encounter
--- OUTSIDE RECORDS SUMMARY | 2022-08-19 06:48 | XMS_ITS | Encounter Summary ---
:1975 Author Organization [facility] Address [address] [place] [address] Care Team Providers Name Role Phone Anthony Carpenter APRN C.N.P., M.S.N. Primary Care Provider + Encounter Details Date Type Department Care Team Description 05/08/2022 Hospital Encounter Department of Anthony Carpenter on Deficit With Laboratory Medicine ELA Zuñiga, Hyperact ivity Disorder in [place] C.N.PErrol, [place] M.S.N. [address] [facility] [address] [place], [place] [phone] [address] Social History Tobacco Use Types Packs/Day [...] or relatives? How often do you attend mormonism or Patient refused 2020 temple services? Do you belong to any clubs or No 07/17/2021 organizations such as mormonism groups, unions, fraternal or athletic groups, or [...] to pay for the very basics like [employer] hat hard 07/17/2021 food, housing, medical care, [...] by 0 (for_TYLENOL) 500 mg mouth. tablet celecoxib (CeleBREX) 100 Take 1 capsule (100 180 capsule 3 0 05/08/2022 mg capsule mg total) by mouth 2 (two) times a day as needed for pain. methocarbamoL (ROBAXIN) Take 500 mg by 0 04/18/20 22 500 mg tablet mouth. pantoprazole (PROTONIX) Take 40 mg by 0 2 40 mg EC tablet mouth. pregabalin (LYRICA) 75 Take 75 mg by 0 04/18/2022 mg capsule mouth. sertraline (ZOLOFT) 50 Take 1 tablet (50 45 tablet 0 2021 mg tabletIndications: mg total) by mouth Depression Major One daily. Take half Episode Moderate (HCC) tablet (25mg) for 1 week. Then increase to 1 tablet daily. dextroamphetamine-amphet Take 10 mg by mouth 0 05/12/2022 amine (ADDERALL) 10 mg daily. tablet documented as of this encounter Plan of Treatment Not on filedocumented as of this encounter Procedures Procedure Name Priority Date/Time Associated Diagnosis Comme nts CONTROLLED Routine 05/08/2022 9:20 AM Attention Deficit With Results for this SUBSTANCE CDT Hyperactivity Disorder proce dure are in MONITORING, U the results section. documented in this encounter Results Controlled Substance Monitoring Panel, Urine (05/08/2022 9:20 AM CDT) [facility] Method Time Signature List patient's Not provided 05/08/2022 SDS current 9:40 PM CDT medications Comment: ----ADDITIONAL INFORMATION---- Accuracy and completeness of declared me dications on reports solely dependent on information submitted by cl ient. Creatinine, Random, U 101.0 mg/dL 05/09/2022 9:18 AM CDT SDS Specific [place] 1.014 05/09/2022 9:18 AM CDT SDSC pH 5.9 05/09/2022 9:18 AM CDT SDSC Oxidants Negative Cutoff: 200 mg/L 05/09/2022 9:18 AM CDT [facility] Comment Normal 05/09/2022 9:18 AM CDT [facility] Barbiturates Negative Cutoff: 200 ng/mL 05/09/2022 9:18 AM CDT [facility] Cocaine Negative Cutoff: 150 ng/mL 05/09/2022 9:18 AM CDT SDSC Comment: This cocaine immunoassay targets benzoyl ecgonine the primary metabolite of cocaine. Tetrahydrocannabinol Negative Cutoff: 50 ng/mL 05/09/2022 9 :18 AM CDT [facility] Comment: This immunoassay targets delta-9 tetrahy drocannabinol carboxylic acid (THC-COOH), a metabolite of delta-9 tetr ahydrocannabinol the main psychoactive ingredient of marijuana. ----ADDITIONAL INFORMATION---- This report is intended for use in clini paty monitoring or management of patients. ??It is not intended for use i n employment-related testing. Codeine Not Detected Cutoff: 25 ng/mL 05/10/2022 11:18 PM CDT [facility] Comment: Tylenol 3 Nlnfcju-2-dxde-glucuronide Not Detected Cutoff: 100 ng/mL 05/10/2022 11:18 PM SDS CDT Comment: Metabolite of codeine Morphine Not Detected Cutoff: 25 ng/mL 05/10/2022 11:18 PM CDT [facility] Comment: Sharon Licea, MS Contin; Also a minor metabolite (10%) of codeine and can be seen in low concentrations (<2,000 ng /mL) with poppy seed ingestion. Kohogdve-2-oshp-glucuronide Not Detected Cutoff: 100 05/10/ 022 11:18 PM [facility] ng/mL CDT Comment: Metabolite of morphine 6-monoacetylmorphine Not Detected Cutoff: 25 ng/mL 022 11:18 PM CDT [facility] Comment: Metabolite of heroin Hydrocodone Not Detected Cutoff: 25 ng/mL 05/10/2022 11:18 P M CDT [facility] Comment: Lortab, Gaston, Vicodin; Also a very reema r metabolite of codeine and impurity (<1%) of oxycodone. Norhydrocodone Not Detected Cutoff: 25 ng/mL 05/10/2022 11:1 8 PM CDT [facility] Comment: Metabolite of hydrocodone Dihydrocodeine Not Detected Cutoff: 25 ng/mL 05/10/2022 11:1 8 PM CDT [facility] Comment: Metabolite of hydrocodone Hydromorphone Not Detected Cutoff: 25 ng/mL 05/10/2022 11:18 PM CDT [facility] Comment: Dilaudid, Exalgo; Also a metabolite of h ydrocodone and a minor (<5%) metabolite of morphine. Cwskwafssxzja-0-qsud-glucuronide Not Detected Cutoff: 100 05/10/2022 11:18 [facility] ng/mL PM CDT Comment: Metabolite of hydromorphone Oxycodone Not Detected Cutoff: 25 ng/mL 05/10/2022 11:18 PM CDT [facility] Comment: Endocet, Percocet, Oxycontin Noroxycodone Not Detected Cutoff: 25 ng/mL 05/10/2022 11:18 PM CDT [facility] Comment: Metabolite of oxycodone Oxymorphone Not Detected Cutoff: 25 ng/mL 05/10/2022 11:18 P M CDT [facility] Comment: Numorphan, Opana; Also a metabo lite of oxycodone. Mxulampkxct-3-yuek-glucuronide Not Detected Cutoff: 100 07 11:18 SDSC ng/mL PM CDT Comment: Metabolite of oxymorphone and/o r naloxone (nornaloxone) Noroxymorphone Not Detected Cutoff: 25 ng/mL 05/10/2022 11:1 8 PM CDT [facility] Comment: Metabolite of oxymorphone and/o r naloxone (nornaloxone) Fentanyl Not Detected Cutoff: 2 ng/mL 05/10/2022 11:18 PM C DT [facility]SC Comment: Actiq, Duragesic, Fentora Norfentanyl Not Detected Cutoff: 2 ng/mL 05/10/2022 11:18 PM CDT [facility] Comment: Metabolite of fentanyl Meperidine Not Detected Cutoff: 25 ng/mL 05/10/2022 11:18 PM CDT [facility] Comment: Demerol Normeperidine Not Detected Cutoff: 25 ng/mL 05/10/2022 11:18 PM CDT [facility] Comment: Metabolite of meperidine Naloxone Not Detected Cutoff: 25 ng/mL 05/10/2022 11:18 PM CDT [facility] Comment: Narcan Ddpdmatw-6-wuaw-glucuronide Not Detected Cutoff: 100 022 11:18 PM SDSC ng/mL CDT Comment: Metabolite of naloxone Methadone Not Detected Cutoff: 25 ng/mL 05/10/2022 11:18 PM CDT [facility] Comment: Dolophine EDDP Not Detected Cutoff: 25 ng/mL 05/10/2022 11:18 PM CDT [facility] Comment: Metabolite of methadone Propoxyphene Not Detected Cutoff: 25 ng/mL 05/10/2022 11:18 PM CDT [facility] Comment: Darvon, Darvocet Norpropoxyphene Not Detected Cutoff: 25 ng/mL 05/10/2022 11: 18 PM CDT [facility] Comment: Metabolite of propoxyphene Tramadol Not Detected Cutoff: 25 ng/mL 05/10/2022 11:18 PM CDT [facility] Comment: Tradol, Ultram, Ultracet O-desmethyltramadol Not Detected Cutoff: 25 ng/mL 05/10/2022 11:18 PM CDT [facility] Comment: Metabolite of tramadol Tapentadol Not Detected Cutoff: 25 ng/mL 05/10/2022 11:18 PM CDT [facility] Comment: Nucynta N-desmethyltapentadol Not Detected Cutoff: 50 ng/mL 2021 11:18 PM CDT [facility] Comment: Metabolite of tapentadol Viznbocmnh-bzxn-nfochemraei Not Detected Cutoff: 100 022 11:18 PM [facility]SC ng/mL CDT Comment: Metabolite of tapentadol Buprenorphine Not Detected Cutoff: 5 ng/mL 05/10/2022 11:18 PM CDT [facility] Comment: Buprenex, Suboxone Norbuprenorphine Not Detected Cutoff: 5 ng/mL 05/10/2022 11: 18 PM CDT [facility] Comment: Metabolite of buprenorphine Norbuprenorphine Not Detected Cutoff: 20 ng/mL 05/10/2022 11 :18 PM SDSC glucuronide CDT Comment: Metabolite of buprenorphine Opioid Interpretation No opioids were detected. Th e absence of expected drug(s) and/or drug 05/10/2022 11:18 PM SDSC metabolite(s) may indicate non-compliance, altered pharmacok inetics, CDT inappropriate timing of specimen collection relative t o drug administration, diluted/adulterated urine, or limitations of testing. Comment: ----ADDITIONAL INFORMATION---- This test was developed and its performa nce characteristics determined by [facility] in a manner consistent with CLIA requirements. This test has not been cleared or approved by the U.[place]. Ml d and Drug Administration. Alprazolam Not Detected Cutoff: 10 ng/mL 05/10/2022 11:21 AM CDT [facility] Comment: Xanax Alpha-Hydroxyalprazolam Not Detected Cutoff: 10 ng/mL 2021 11:21 AM [facility]SC CDT Comment: Metabolite of Alprazolam Alpha-Hydroxyalprazolam Not Detected Cutoff: 50 05/10/2022 1 1:21 [facility] Glucuronide ng/mL AM CDT Comment: Metabolite of Alprazolam Chlordiazepoxide Not Detected Cutoff: 10 ng/mL 05/10/2022 11 :21 AM CDT [facility] Comment: Librium Clobazam Not Detected Cutoff: 10 ng/mL 05/10/2022 11:21 AM CDT [facility] Comment: Frisium, Onfi N-Desmethylclobazam Not Detected Cutoff: 200 ng/mL 022 11:21 AM CDT [facility] Comment: Metabolite of Clobazam Clonazepam Not Detected Cutoff: 10 ng/mL 05/10/2022 11:21 AM CDT [facility] Comment: Klonopin, Rivotril 7-aminoclonazepam Not Detected Cutoff: 10 ng/mL 05/10/2022 1 1:21 AM CDT [facility] Comment: Metabolite of Clonazepam Diazepam Not Detected Cutoff: 10 ng/mL 05/10/2022 11:21 AM CDT [facility] Comment: Valium Nordiazepam Not Detected Cutoff: 10 ng/mL 05/10/2022 11:21 A M [facility] Comment: Metabolite of Chlordiazepoxide, Diazepam, or Prazepam. Flunitrazepam Not Detected Cutoff: 10 ng/mL 05/10/2022 11:21 AM [facility] Comment: Rohypnol 7-aminoflunitrazepam Not Detected Cutoff: 10 ng/mL 022 11:21 AM [facility] Comment: Metabolite of Flunitrazepam Flurazepam Not Detected Cutoff: 10 ng/mL 05/10/2022 11:21 AM [facility] Comment: Dalmane 2-Hydroxy Ethyl Not Detected Cutoff: 10 ng/mL 05/10/2022 11: 21 AM [facility] Flurazepam Comment: Metabolite of Flurazepam Lorazepam Not Detected Cutoff: 10 ng/mL 05/10/2022 11:21 AM [facility] Comment: Ativan Lorazepam Glucuronide Not Detected Cutoff: 50 ng/mL 2021 11:21 AM [facility] Comment: Metabolite of Lorazepam Midazolam Not Detected Cutoff: 10 ng/mL 05/10/2022 11:21 AM [facility] Comment: Versed Alpha-Hydroxy Midazolam Not Detected Cutoff: 10 ng/mL 2021 11:21 AM [facility] Comment: Metabolite of Midazolam Oxazepam Not Detected Cutoff: 10 ng/mL 05/10/2022 11:21 AM [facility] Comment: Serax; Also a metabolite of Chl ordiazepoxide, Diazepam, or Temazepam. Oxazepam Glucuronide Not Detected Cutoff: 50 ng/mL 022 11:21 AM [facility] Comment: Metabolite of Oxazepam Prazepam Not Detected Cutoff: 10 ng/mL 05/10/2022 11:21 AM [facility] Comment: Centrax Temazepam Not Detected Cutoff: 10 ng/mL 05/10/2022 11:21 AM [facility] Comment: Restoril; Also a metabolite of Diazepam. Temazepam Glucuronide Not Detected Cutoff: 50 ng/mL 2021 11:21 AM [facility] Comment: Metabolite of Temazepam Triazolam Not Detected Cutoff: 10 ng/mL 05/10/2022 11:21 AM CDT [facility] Comment: Halcion Alpha-Hydroxy Triazolam Not Detected Cutoff: 10 ng/mL 2021 11:21 AM [facility] CDT Comment: Metabolite of Triazolam Zolpidem Not Detected Cutoff: 10 ng/mL 05/10/2022 11:21 AM CDT [facility] Comment: Ambien Zolpidem Roskoz-3-Edkghpoobm Not Detected Cutoff: 10 ng/mL 05/10/2022 11:21 AM [facility] acid CDT Comment: Metabolite of Zolpidem Benzodiazepine No benzodiazepines were dete cted. The absence of expected drug(s) and/or drug 05/10/2022 11:21 AM [facility] Interpretation metabolite(s) may indicate n on-compliance, altered pharmacokinetics, CDT inappropriate timing of specimen collection relative t o drug administration, diluted/adulterated urine, or limitations of testing. Comment: ----ADDITIONAL INFORMATION---- This test was developed and its performa nce characteristics determined by [facility] in a manner consistent with CLIA requirements. This test has not been cleared or approved by the U.[place]. Ml d and Drug Administration. Methamphetamine Not Detected Cutoff: 100 ng/mL 05/11/2022 12 :41 AM CDT [facility] Comment: Desoxyn Amphetamine Not Detected Cutoff: 100 ng/mL 05/11/2022 12:41 AM CDT [facility] Comment: Dyanavel XR, Adzenys ER, Adderall, Vyvan se; Also a metabolite of methamphetamine 3,4-methylenedioxymethamphetamine Not Detected Cutoff: 100 0 05/11/2022 [facility] (MDMA) ng/mL 12:41 AM CDT 3,9-qmkerumatbbkrg-E-ethylamphetamine Not Detected Cutoff: 100 05/11/2022 [facility] (MDEA) ng/mL 12:41 AM CDT 3,4-methylenedioxyamphetamine (MDA) Not Detected Cutoff: 100 05/11/2022 [facility] ng/mL 12:41 AM CDT Comment: Also a metabolite of MDMA and/o r MDEA Ephedrine Not Detected Cutoff: 100 ng/mL 05/11/2022 12:41 AM CDT [facility] Pseudoephedrine Not Detected Cutoff: 100 ng/mL 05/11/2022 12 :41 AM CDT [facility] Comment: Sudafed Phentermine Not Detected Cutoff: 100 ng/mL 05/11/2022 12:41 AM CDT [facility] Comment: Adipex-P, Lomaira, Qsymia Phencyclidine (PCP) Not Detected Cutoff: 20 ng/mL 05/11/2022 12:41 AM CDT [facility] Methylphenidate Not Detected Cutoff: 20 ng/mL 05/11/2022 12: 41 AM CDT [facility] Comment: Ritalin, Concerta Ritalinic acid Not Detected Cutoff: 100 ng/mL 05/11/2022 12: 41 AM CDT [facility] Comment: Metabolite of methylphenidate Stimulant Interpretation No stimulants were detected. The absence of expected drug(s) and/or drug 05/11/2022 12:41 AM [facility] metabolite(s) may indicate non-compliance, altered pharmacok inetics, CDT inappropriate timing of specimen collection relative t o drug administration, diluted/adulterated urine, or limitations of testing. Comment: ----ADDITIONAL INFORMATION---- This test was developed and its performa nce characteristics determined by [facility] in a manner consistent with CLIA requirements. This test has not been cleared or approved by the [place] M[place] d and Drug Administration. Specimen Anatomical Collection Method Collection Time Receive d Time (Source) Location / / Volume Laterality Urine (Urine, 05/08/2022 9:20 AM 05/08/20 9:40 Clean Catch) CDT PM CDT Narrative This result has an attachment that is no t available. Caterina Pathak APRN.N.Gabriel., M.S.N. LAB URINE ORDERABL Performing Organization Address City/State/ZIP Code Phon e Number [facility] [address] [place], [place] [address] [facility] [place] [address] Laboratory Medicine and Pathology [address] [place] documented in this encounter Visit Diagnoses Diagnosis Attention Deficit With Hyperactivity Dis order documented in this encounter Additional Health Concerns Assessment Noted Time PHQ-9 Depression Total Score: 11 01/02/2022 12:02 PM C DT documented as of this encounter Care Teams Pharmacy Sales Representative Relationship Specialty Start Date End Date Anthony Carpenter APRN, C.N.P., PCP - General Family Medicine M.S.N. [address] [place] [phone] documented as of this encounter
--- OUTSIDE RECORDS SUMMARY | 2022-08-19 06:48 | XMS_ITS | Encounter Summary ---
:1975 Author Organization [facility] Address [address] [place] [address] Care Team Providers Name Role Phone Anthony Carpenter APRN, C.N.P., M.S.N. 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 Has had since falling at wor k in Nov or December. Pain is on both sides of the back. Encounter Details Date Type Department Care Team Description 03/27/2022 Office Visit Department of [facility] in Back Lumbar Medicine, Tanesha Cruz APRN, C.N.PPatricia, (Primar y Dx) Clinic, in [place].SPatricia [address] [place] [phone] Social History Tobacco Use Types Packs/Day Years [...] or relatives? How often do you attend jew or Patient refused 2020 restorationist services? Do you belong to any clubs or No 07/17/2021 organizations such as jew groups, unions, fraternal or athletic groups, or [...] place to sleep or slept in a fci (including now)? Education Answer Date Recorded What is the highest level of school you have Some college, n o degree 07/17/2021 completed or the highest degree you have received? Sex Assigned at Date Recorded Not on file documented as of this encounter Last Filed Vital Signs Vital Sign Reading Time Taken Comments Blood Pressure 142/98 03/27/2022 2:28 PM CDT Pulse 97 03/27/2022 2:28 PM CDT Temperature 37.3 ??C (99.1 ??F) 03/27/2022 2:22 PM CDT Respiratory Rate 16 03/27/2022 2:22 PM CDT Oxygen Saturation - - Inhaled Oxygen Concentration - - Weight 63.1 kg (139 lb 1.8 oz) 03/27/2022 2:22 PM CDT Height - - Body Mass Index 23.6 03/14/2022 3:23 PM CDT documented in this encounter Progress Notes Aislinn Patel, ELA, C.N.P., M.S. - 03/27/2022 2:30 PM CDT SUBJECTIVE CHIEF COMPLAINT / REASON FOR VISIT Back Pain (Work Comp [employer] -- pt is unsure of the exact day. Has had since falling at work in Nov or December. Pain is on both sides of the back.) HISTORY OF PRESENT ILLNESS Alon Cruz Theodore is a 46 y.o. male who presents for evaluation of low back pain. He is requesting something stronger for his pain. Pain started earlier this year after he fell at work on a concrete driveway. He did not experience immediate pain if, but pain developed two weeks later to the point of being bothersome enough that he was unable to lay down or find a position that was comfortable. Inés had this pain since that time. His PCP has been assisting with multiple options for his pain. Inés also been evaluated in Physical Medicine and rehab. He had injections on March 20. Patient states this did not help his pain at all. They also recommended gabapentin titration. Patient states he has been taking this for several weeks but he cannot tolerated due to night sweats. He has also been given meloxicam and Robaxin with no relief. He was seen in clinic two days ago in Family Medicine. Theydiscussed his ongoing pain with Dr. Gillette from [facility] who recommended Neurontin titration, physical therapy, meloxicam daily, and offered him a return appointment for repeat injections. Patient also requested referral to [facility] at that time which was placed. MRI from outside facility in January showed L5-S1 small disc herniation with mild osteoarthritis. Mild disc degenerative changes at T12-L1 and L1-L2. Today patient reports he has not yet called [facility] to schedule. He is planning to follow-up in [facility] for repeat injections. He has not found any medications that have been helpful for his pain. He has also tried topical lidocaine with no relief. He was quite frustrated today due to his pain and its effect on his ability to work. He requests a short course of opioids today until he is able ramón evaluated at [facility]. On review of his record, he has been in contact with his PCP through the portal requesting pain medication as well. The patient's social history, problem list, medications and allergies were reviewed in the electronic medical record. REVIEW OF SYSTEMS A brief review of systems was negative except for that mentioned in the history of present of illness. OBJECTIVE VITAL SIGNS BP (!) 142/98 (BP Location: Left arm, Cuff Size: Regular) Pulse 97 Temp 37.3 ??C Resp 16 Wt 63.1 kg BMI 23.60 kg/m?? PHYSICAL EXAMINATION Vitals reviewed. Constitutional Appearance: Normal appearance. Cardiovascular Rate and Rhythm: Normal rate. Pulmonary Effort: Pulmonary effort is normal. Neurological General: No focal deficit present. Mental Status: He is alert. Psychiatric Mood and Affect: Mood normal. Behavior: Behavior normal. DIAGNOSTICS No results found. ASSESSMENT / PLAN 1. Pain Back Lumbar Patient experiencing 10/10 pain today despite recent injections. It was unclear if he is currently taking the gabapentin or not, as he stated he had been to trying it for several weeks and also is no longer taking it due to side effects. Either way, he does not want to take this medication due to night sweats. He is not currently taking the meloxicam or Robaxin. Discussed that as when not be prescribing opioids for him today. I recommend he continue to follow with his PCP regularly as well as follow-up in [facility]. I also suggested he contact [facility] today to get an appointment scheduled as this referral has been placed. Patient is in agreement with the plan. Patient was provided verbal and written education. Patient has no further questions or concerns. Patient will follow up as needed or at the next scheduled return visit. Patient will call the clinic if there are any further questions or concerns in the meantime. documented in this encounter Plan of Treatment Not on filedocumented as of this encounter Visit Diagnoses Diagnosis Pain Back Lumbar - Primary documented in this encounter Additional Health Concerns Assessment Noted Time PHQ-9 Depression Total Score: 11 01/02/2022 12:02 PM C DT documented as of this encounter Care Teams Inside Phone Sales Relationship Specialty Start Date End Date Anthony Carpenter APRN, C.N.P., PCP - General Family Medicine M.S.N. [address] [phone] documented as of this encounter
--- OUTSIDE RECORDS SUMMARY | 2022-08-19 06:48 | XMS_ITS | Encounter Summary ---
:1975 [address] Organization [facility] Address [address] [place] [address] Care Team Providers Name Role Phone Jayden Anthony Zuñiga APRN C.N.Gabriel., M.S.N. Primary Care Provider + Encounter Details Date Type Department Care Team Description 03/14/2022 Clinical Communication Department of [facility] Robbie Blas, Medicine, [facility], in [facility] [address] [facility], [address] [facility] [address] [place], [place] [phone] (Work) [phone] Social History Tobacco Use Types Packs/Day Years [...] or relatives? How often do you attend episcopalian or Patient refused 2020 adventism services? Do you belong to any clubs or No 07/17/2021 organizations such as episcopalian groups, unions, fraternal or athletic groups, or [...] to pay for the very basics like [employer] hat hard 07/17/2021 food, housing, medical care, [...] Encounter - Marly Blas M.D. - 03/14/2022 12:20 PM CDT Behavioral Instructor: Please have this patient come for a 3:30-4PM appt today. I need 30 minutes since he is new to me andhe has had multiple visits to the ER for this problem. Thanks. Electronically signed by: Marly Blas M.D. 03/14/22 12:20 PM CDT documented in this encounter Plan of Treatment Not on filedocumented as of this encounter Visit Diagnoses Not on filedocumented in this encounter Additional Health Concerns Assessment Noted Time PHQ-9 Depression Total Score: 11 01/02/2022 12:02 PM C DT documented as of this encounter Care Teams Associate Director Of Sales Relationship Specialty Start Date End Date Anthony Carpenter APRN, C.N.P., PCP - General Family Medicine M.S.N. [address] [phone] documented as of this encounter
--- OUTSIDE RECORDS SUMMARY | 2022-08-19 06:48 | XMS_ITS | Encounter Summary ---
:1975 Author Organization [facility] Address [address] [place] [address] Care Team Providers Name Role Phone Anthony Carpenter APRN C.N.PPatricia, M.S.N. Primary Care Provider + Encounter Details Date Type Department Care Team Description 04/23/2022 Clinical Communication Department of [facility] Anthony Carpenter, Medicine, [place] [facility] C.N.PPatricia, Clinic, in [place] [address] [place] [phone] Social History Tobacco Use Types Packs/Day Years [...] or relatives? How often do you attend jehovah's witness or Patient refused 2020 samaritan services? Do you belong to any clubs or No 07/17/2021 organizations such as jehovah's witness groups, unions, fraternal or athletic groups, or [...] to pay for the very basics like [employer] hat hard 07/17/2021 food, housing, medical care, [...] this encounter Miscellaneous Notes Telephone Encounter - Digna Morley - 04/23/2022 4:20 PM CDT Tried to call patient to have him schedule an appt per previous message for refill. Voice mailbox was full. Letter sent. Telephone Encounter - Florinda Arndt, L.P.N. - 04/23/2022 11:43 AM CDT This was refilled for patient back in February and he was to follow up for a med check which he never did, please call patient to schedule a medication check with a provider. No further refills until he hasbeen seen, thank you Telephone Encounter - Blanquita Mari - 04/23/2022 10:50 AM CDT Reason for Communication: Patients calling and would like his Adderall 10 mg refilled. It is not on his medication list. Please advise. Current Can Nursing/Provider leave a detailed message?: yes Did the patient refuse triage through Nurse line? (for symptom based concerns): na Action Needed: Please advise. Name of Medication (if relevant): Adderall 10 mg Please send all scheduling replies to scheduling pool. documented in this encounter Plan of Treatment Not on filedocumented as of this encounter Visit Diagnoses Not on filedocumented in this encounter Additional Health Concerns Assessment Noted Time PHQ-9 Depression Total Score: 11 01/02/2022 12:02 PM C DT documented as of this encounter Care Teams Salvage Inspector Relationship Specialty Start Date End Date Anthony Carpenter, ELA, C.N.P., PCP - General Family Medicine M.S.N. [address] [phone] documented as of this encounter
--- OUTSIDE RECORDS SUMMARY | 2022-08-19 06:49 | XMS_ITS | Encounter Summary ---
:1975 Author Organization [facility] Address [address] [place] [address] Care Team Providers Name Role Phone Anthony Carpenter APRN C.N.P., M.S.N. Primary Care Provider + Reason for Visit Reason Comments Abdominal Pain Encounter Details Date Type Department Care Team Description 02/05/2022 Emergency [facility] Abdominal Pain (Primary Dx) [address] [place] [phone] Social History Tobacco Use Types Packs/Day [...] you attend voodoo or Patient refused 2020 bahai services? Do you belong to any clubs [...] mouth. tablet albuterol inhaler Inhale 2 puffs every 3 Inhaler 3 08/09/20 20 4 (four) hours as needed for wheezing or shortness of breath. sertraline (ZOLOFT) 50 mg Take 1 tablet (50 mg 45 tablet 0 01/02/2022 tabletIndications: total) by mouth Depression Major One daily. Take half Episode Moderate (HCC) tablet (25mg) for 1 week. Then increase to 1 tablet daily. dextroamphetamine-ampheta Take 1 tablet (10 mg 60 tablet 0 08/30/2021 03/14/2022 mine (AdderalL) 10 mg total) by mouth 2 tablet (two) times a day. dextroamphetamine-ampheta Take 1 tablet (10 mg 60 tablet 0 09/29/2021 03/14/2022 mine (AdderalL) 10 mg total) by mouth 2 tablet (two) times a day. dextroamphetamine-ampheta Take 1 tablet (10 mg 60 tablet 0 02/06/2022 03/17/2022 mine (AdderalL) 10 mg total) by mouth 2 tablet (two) times a day. gabapentin (NEURONTIN) 0 01/24/2022 100 mg capsule ibuprofen (ADVIL,MOTRIN) Take 200 mg by mouth 0 03/14/2022 200 mg tablet every 6 (six) hours as needed for pain. lidocaine (LIDODERM) 5 % Place 1 patch on the 30 patch 0 1 05/08/2022 skin daily. Apply to abdominal wall. methocarbamoL (ROBAXIN) 0 01/24/2022 0 03/14/2022 500 mg tablet naproxen sodium Take 220 mg by mouth 0 03/14/2022 (ALEVE/ANAPROX) 220 mg 2 (two) times a day tablet with meals. oxyCODONE (ROXICODONE) 5 Take 5 mg by mouth 0 03/14/2022 mg immediate release every 4 (four) hours tablet as needed. documented as of this encounter Plan of Treatment Not on filedocumented as of this encounter Procedures Procedure Name Priority Date/Time Associated Comments Diagnosis CT ABDOMEN PELVIS RAD - Semiurgent 02/05/2022 10:52 Abdominal Pain Results for this WITH IV CONTRAST (Fast; most ED PM CDT procedure are in patients; some the results inpatients) section. documented in this encounter Results CT Abdomen Pelvis with IV Contrast (02/05/2022 10:52 PM CDT) Anatomical Region Laterality Modality Abdomen, Pelvis, Abdominal RST LOS, Abdominal ARZ LOS, N/A Computed Tomography Abdominal FLA LOS Specimen (Source) Anatomical Collection Method Collection Time Re ceived Time Location / / Volume Laterality 02/05/2022 9:35 PM CDT Impressions 02/06/2022 6:00 AM CDT Findings are consistent with mild infectious/inflammatory small bowel enteritis. vRad: ??Findings concordant with kassii yelena vRad report. Narrative 02/06/2022 6:00 AM CDT EXAM: CT ABDOMEN PELVIS WITH IV CONTRAST COMPARISON: 12/23/2021 FINDINGS: Lower chest: Unremarkable. Liver: No suspicious lesion. Gallbladder/bile ducts: No bile duct enl argement. Pancreas: No organized peripancreatic co llection or acute inflammatory changes. Spleen: No suspicious lesion. Adrenal glands: Unremarkable. Kidneys, ureters, bladder: No hydronephr osis. The bladder is distended but otherwise normal in appearance. GI tract, mesentery/peritoneum: No obstr uction. Moderate stool volume. Mild diffuse small bowel wall hyperemia, and a few loops of small kaiden l demonstrate mild circumferential wall thickening, ??most notably in the left lower quadrant. No a bscess. No pneumoperitoneum. Normal appendix. Vasculature: No evidence of aortic aneur ysm. ?? Lymph Nodes: No pathologically enlarged lymph nodes. Reproductive: Unremarkable. Bones/soft tissues: No abnormal soft tis reg mass or acute fracture. Procedure Note David Wang M.D. - 02/06/2022Format ting of this note might be different from the original. EXAM: CT ABDOMEN PELVIS WITH IV CONTRAST COMPARISON: 12/23/2021 FINDINGS: Lower chest: Unremarkable. Liver: No suspicious lesion. Gallbladder/bile ducts: No bile duct enl argement. Pancreas: No organized peripancreatic co llection or acute inflammatory changes. Spleen: No suspicious lesion. Adrenal glands: Unremarkable. Kidneys, ureters, bladder: No hydronephr osis. The bladder is distended but otherwise normal in appearance. GI tract, mesentery/peritoneum: No obstr uction. Moderate stool volume. Mild diffuse small bowel wall hyperemia, and a few loops of small kaiden l demonstrate mild circumferential wall thickening, most notably in the left lower quadrant. No a bscess. No pneumoperitoneum. Normal appendix. Vasculature: No evidence of aortic aneur ysm. Lymph Nodes: No pathologically enlarged lymph nodes. Reproductive: Unremarkable. Bones/soft tissues: No abnormal soft tis reg mass or acute fracture. IMPRESSION: Findings are consistent with mild infect ious/inflammatory small bowel enteritis. vRad: Findings concordant with prelimina ry vRad report. Darron Bettencourt P.A.-C. IMG CT PROCEDURES documented in this encounter Visit Diagnoses Diagnosis Abdominal Pain - Primary documented in this encounter Administered Medications Inactive Administered Medications - up to 3 most recent administrations Medication Order MAR Action Action Date Dose Rate Site iohexoL 300 mg iodine/mL Given 02/05/2022 9:25 PM 100 mL Left Antecubital solution 100 mL CDT (OMNIPAQUE) 100 mL, intravenous, Once in imaging, contrast, Starting on Thu02/05/22 at 2118, For 1 dose, If administered oral then dilute in 900 mL water sodium chloride 0.9 % flush 100 Given 02/05/2022 9:25 PM CDT 75 mL Left Antecubital mL 100 mL, intravenous, Once, On Thu02/05/22 at 2130, For 1 dose sodium chloride 0.9 % injection Given 02/05/2022 9:25 PM CDT 10 mL Left Antecubital 10 mL 10 mL, intravenous, As needed, line care, Starting on Thu02/05/22 at 2119 documented in this encounter Active and Recently Administered Medications Times are shown in CDT. Scheduled Medication Order 02/03/2022 02/04/2022 02/05/2022 sodium chloride 0.9 % flush 100 mL (COMPLETED) 2124 (Given - Provider: Hawa Macario(R)(CT), R.T.(R)) 100 mL, intravenous, Once, On Thu02/05/22 at 2130, For 1 dose PRN Medication Order 02/03/2022 02/04/2022 02/05/2022 iohexoL 300 mg iodine/mL solution 100 mL (OMNIPAQUE) (COMPLETED) 2124 (Given - Provider: Hawa Macario(Vadim)(CT), R.TPatricia(R) - Comment: [id number]) 100 mL, intravenous, Once in imaging, co ntrast, Starting on Thu02/05/22 at 2118, For 1 dose, If administered oral then dilute in 900 mL water sodium chloride 0.9 % injection 10 mL (CANCELED) 2124 (Given - Provider: Hawa Macario(Vadim)(CT), R.T.(R)) 10 mL, intravenous, As needed, line care, Starting on Thu 2 at 2119 documented in this encounter Additional Health Concerns Assessment Noted Time PHQ-9 Depression Total Score: 11 01/02/2022 12:02 PM C DT documented as of this encounter Care Teams Buzzsaw Operator Helper Relationship Specialty Start Date End Date Anthony Carpenter, ELA, C.N.P., PCP - General Family Medicine M.S.N. [address] [phone] documented as of this encounter
--- OUTSIDE RECORDS SUMMARY | 2022-08-19 06:49 | XMS_ITS | Encounter Summary ---
:1975 Author Organization [facility] Address [address] [place] [address] Care Team Providers Name Role Phone Anthony Carpenter APRN C.N.P., M.S.N. Primary Care Provider + Reason for Referral Outpatient (Routine) - Authorized Specialty Diagnoses / Procedures Referred By Contact Refer red To Contact Diagnoses Pain Shoulder Right Kanu Iyer M.D. [facility] Region Procedures xgf-jdqv-mgncqmur-elbow arthrocentesis: R acromioclavicular [address] [place] [phone] Referral ID Status Reason Start Date Expiration Date Visits V isits Requested Authorized [id number] Authorized 09/18/2021 09/18/2022 1 1 R AND SEWER SYSTEMS SUPERINTENDENT Reason for Visit Reason Comments Pain Appointment Request (Routine) - Closed Specialty Diagnoses / Procedures Referred By Contact Refer red To Contact Orthopedic Surgery Referral ID Status Reason Start Date Expiration Date Visits Requ ested Visits Authorized [id number] Closed 09/16/2021 09/16/2022 1 1 Encounter Details Date Type Department Care Team Description 09/18/2021 Office Visit Department of Kanu Iyer Pain Shoulde r Right Orthopedic Surgery in [place] (Primary Dx) [place], [place] [address] [place] [phone] Social History Tobacco Use Types Packs/Day Years [...] you attend restorationism or Patient refused 2020 yarsani services? Do you belong to any clubs [...] on file documented as of this encounter Progress Notes Kanu Iyer M.D. - 09/18/2021 9:15 AM CST HISTORY OF PRESENT ILLNESS The patient is a 45-year-old male who had injured his right shoulder. He fell going down some stairscarrying a box, landing on his right shoulder. The injury occurred on 08/25/2021, about a month ago.He has a lot of pain over his AC joint. It radiates along his clavicle to his sternoclavicular joint. X-rays taken show no obvious fractures. It continues to be painful to lift his arm, especially anything above shoulder level. OBJECTIVE PHYSICAL EXAMINATION Extremities: Right shoulder: He has no swelling, redness, or warmth. He has forward flexion to at least 150 degrees. Good internal and external rotation. He has a positive crossover test. Pain to lift his arm above shoulder level. He has tenderness, especially over the AC joint. Some mild tenderness over the sternoclavicular joint. Rotator cuff strength is good. The shoulder is stable ligamentously. Neurovascularly intact in the right upper extremity. ASSESSMENT / PLAN #1 Right shoulder injury, more centered over his AC joint, but also painful over the sternoclavicular joint PLAN: I injected the right AC joint today with 3 mg of Celestone and lidocaine. Hopeful this will take down any inflammation and it will feel better, but it should eventually heal. I will see him back for any other orthopedic problems in the future. R AND SEWER SYSTEMS SUPERINTENDENT documented in this encounter Procedure Notes Kanu Iyer M.D. - 09/18/2021 9:15 AM CSTAssociated Order(s): gtw-zrqj-ypnbzfhx-elbow arthrocentesis: R acromioclavicular Post-Procedure Diagnose(s): Pain Shoulder Right Shoulder site - R acromioclavicular : injection only Date/Time: 09/18/2021 9:29 AM Performed by: Kanu Iyer M.D. Authorized by: Kanu Iyer M.D. PROCEDURE DETAILS Procedure Location shoulder Shoulder site: R acromioclavicular Site prep: patient was prepped and draped in usual sterile fashion Patient position: seated Procedural approach: posterior and superior Procedure performed: injection only Needle gauge: 25 G Procedural Medication The following medications were administered at the target site(s) Local anesthetic: 2 mL lidocaine 10 mg/mL (1 %) Corticosteroid: 3 mg betamethasone acetate & sodium phosphate 6 mg/mL CONSENT Consent obtained: written UNIVERSAL PROTOCOL All relevant documentation and testing were reviewed and available. All required blood products, implants, devices and or special equipment were made available as applicable. Pre-procedure verificationwas conducted and the correct site was marked if required. A fire risk assessment was done as applicable. The procedural time-out was conducted prior to performing the procedure and confirmed in a procedural pause. PRE-PROCEDURE DETAILS Procedure purpose: therapeutic Appropriate hand hygiene, gown, cap, mask, protective eyewear, sterile gloves, skin preparation, sterile drape, and strict aseptic technique were utilized as applicable for the procedure. Site preparation: alcohol SEDATION / ANESTHESIA Anesthesia method: none POST-PROCEDURE DETAILS Procedure completed successfully: yes Complications: no apparent complications Discharge instructions: ice area as needed for comfort R AND SEWER SYSTEMS SUPERINTENDENT documented in this encounter Plan of Treatment Not on filedocumented as of this encounter Procedures Procedure Name Priority Date/Time Associated Diagnosis Comme nts HI ARTHCS ASP/INJ Routine 09/18/2021 9:29 AM Pain Shoulder Rig ht Results for this INT JT WO US WATER AND SEWER SYSTEMS SUPERINTENDENT procedure are i n the results section. documented in this encounter Results HI ARTHCS ASP/INJ INT JT WO US (09/18/2021 9:29 AM WATER AND SEWER SYSTEMS SUPERINTENDENT) Narrative MMODAL - 09/18/2021 9:29 AM WATER AND SEWER SYSTEMS SUPERINTENDENT Kanu Iyer M.D. ? 09/18/2021 ??9:32 AM Shoulder site - R acromioclavicular : in jection only Date/Time: 09/18/2021 9:29 AM Performed by: Kanu Iyer M.D. Authorized by: Kanu Iyer M.D. PROCEDURE DETAILS Procedure Location shoulder Shoulder site: R acromioclavicular Site prep: patient was prepped and drape d in usual sterile fashion ?? Patient position: seated Procedural approach: posterior and super ior Procedure performed: injection only Needle gauge: 25 G Procedural Medication The following medications were administe red at the target site(s) Local anesthetic: 2 mL lidocaine 10 mg/m L (1 %) Corticosteroid: 3 mg betamethasone aceta te & sodium phosphate 6 mg/mL CONSENT Consent obtained: written UNIVERSAL PROTOCOL All relevant documentation and testing w ere reviewed and available. All required blood products, implants, devic es and or special equipment were made available as applicable. Pre-proced ure verification was conducted and the correct site was marked if required. A fire risk assessment was done as applicable. The procedural time-out w as conducted prior to performing the procedure and confirmed in a procedu ral pause. PRE-PROCEDURE DETAILS Procedure purpose: therapeutic Appropriate hand hygiene, gown, cap, mas k, protective eyewear, sterile gloves, skin preparation, sterile drape, and strict aseptic technique were utilized as applicable for the procedure . Site preparation: alcohol SEDATION / ANESTHESIA Anesthesia method: none POST-PROCEDURE DETAILS Procedure completed successfully: yes Complications: no apparent complications ?? Discharge instructions: ice area as need ed for comfort Kanu Iyer M.D. PROCEDURE/MINOR SURGICAL ORD ERABLES Performing Organization Address City/State/ZIP Code Phon e Number MMODAL MMODAL NA documented in this encounter Visit Diagnoses Diagnosis Pain Shoulder Right - Primary documented in this encounter Administered Medications Inactive Administered Medications - up to 3 most recent administrations Medication Order MAR Action Action Date Dose Rate Site betamethasone acetate & sodium Given 09/18/2021 9:29 AM WATER AND SEWER SYSTEMS SUPERINTENDENT 3 mg phosphate injection 3 mg (CELESTONE SOLUSPAN) 3 mg, intra-articular, One-Time Injection, Starting on Thu09/18/21 at 0929, For 1 dose lidocaine 10 mg/mL (1 %) injection 2 mL Given 09/18/2021 9:29 AM WATER AND SEWER SYSTEMS SUPERINTENDENT 2 mL (XYLOCAINE) 2 mL, infiltration, One-Time Injection, Starting on Thu09/18/21 at 0929, For 1 dose documented in this encounter Additional Health Concerns Assessment Noted Time PHQ-9 Depression Total Score: 16 12/29/2019 7:41 AM CD T documented as of this encounter Care Teams Physical Meteorologist Relationship Specialty Start Date End Date Anthony Carpenter, ELA, C.N.P., PCP - General Family Medicine M.S.N. [address] [place] [phone] documented as of this encounter
--- OUTSIDE RECORDS SUMMARY | 2022-08-19 06:49 | XMS_ITS | Encounter Summary ---
:1975 Author Organization [facility] Address [address] [place] [address] Care Team Providers Name Role Phone Anthony Carpenter APRN C.N.PPatricia, M.S.N. Primary Care Provider + Encounter Details Date Type Department Care Team Description 02/17/2022 Clinical Communication Department of [facility] Anthony Carpenter, Medicine, [place] ELA, C.N.PPatricia, Clinic, in [facility] [address] [place] [phone] Social History Tobacco Use Types Packs/Day Years [...] or relatives? How often do you attend faith or Patient refused 2020 presybeterian services? Do you belong to any clubs or No 07/17/2021 organizations such as faith groups, unions, fraternal or athletic groups, or [...] to pay for the very basics like Bilibot hat hard 07/17/2021 food, housing, medical care, [...] encounter Miscellaneous Notes Telephone Encounter - Florinda Arndt L.P.N. - 02/19/2022 2:23 PM CDT Patient was seen in ER yesterday and given some pain meds Telephone Encounter - Anthony Carpenter APRN, C.NCristine, M.S.N. - 02/19/2022 11:14 AM CDT Prescription denied. Patient should be seen in the clinic if he is having ongoing pain. Telephone Encounter - Zully Borrego - 02/17/2022 12:33 PM CDT Nurse review: Unable to forward request to provider; Controllled Substance, CSA Primary Provider: Anthony Carpenter APRN, Caterina.N.PPatricia, M.S.N. Requested Prescriptions Pending Prescriptions Disp Refills ??? oxyCODONE (ROXICODONE) 5 mg immediate release tablet Sig: Take 1 tablet (5 mg total) by mouth every 4 (four) hours as needed. Telephone Encounter - Eliane Schultz - 02/17/2022 12:13 PM CDT Provider: Anthony Carpenter APRN, C.N.P., M.S.N. Patient called for Refills. Additional info only if applies: Requested Prescriptions Pending Prescriptions Disp Refills ??? oxyCODONE (ROXICODONE) 5 mg immediate release tablet Sig: Take 1 tablet (5 mg total) by mouth every 4 (four) hours as needed. [id number] [place] [place] - [facility] [address] [address] [address] [facility] [phone] documented in this encounter Plan of Treatment Not on filedocumented as of this encounter Visit Diagnoses Not on filedocumented in this encounter Additional Health Concerns Assessment Noted Time PHQ-9 Depression Total Score: 11 01/02/2022 12:02 PM C DT documented as of this encounter Care Teams Automatic Beading Lathe Operator Relationship Specialty Start Date End Date Anthony Carpenter APRN, C.N.P., PCP - General Family Medicine M.S.N. [address] [place] [phone] documented as of this encounter
--- OUTSIDE RECORDS SUMMARY | 2022-08-19 06:49 | XMS_ITS | Encounter Summary ---
:1975 Author Organization [facility] Address [address] [place] [address] Care Team Providers Name Role Phone Aniacynthia Anthony Zuñiga APRN C.N.PPatricia, M.S.N. Primary Care Provider + Reason for Referral Outpatient (Routine) - Authorized Specialty Diagnoses / Referred By Contact Referred To Contact Procedures Physical Medicine and Diagnoses Pain Low Back Other Radiculopathy Evette Van [facility] Region Rehabilitation Laurie MAHMOODNPatriciaPPatricia, M.S.N. [address] [address] Referral ID Status Reason Start Date Expiration Date Visits V isits Requested Authorized [id number] Authorized 01/22/2022 01/22/2023 1 1 utpatient (Routine) - Authorized Specialty Diagnoses / Procedures Referred By Contact Refer red To Contact Diagnoses Pain Low Back Other Pain Flank Evette Van APRN, [facility] Region Procedures DX Lumbar Spine 2-3 Views C.N.P., M.S.N. [address] [place] [phone] Referral ID Status Reason Start Date Expiration Date Visits V isits Requested Authorized [id number] Authorized 01/22/2022 01/22/2023 1 1 Reason for Visit Reason Comments Back Pain Flank pain, heat, ice, ibupr ofen, tylenol Appointment Request (Routine) - Closed Specialty Diagnoses / Procedures Referred By Contact Refer red To Contact Family Medicine Referral ID Status Reason Start Date Expiration Date Visits Requ ested Visits Authorized [id number] Closed 01/20/2022 01/20/2023 1 1 Encounter Details Date Type Department Care Team Description 01/22/2022 Office Visit Department of Family Evette Van Pa in Low Back Other (Primary Dx); Medicine, Reece MAHMOOD C.N.P., Pain Fla nk; Clinic, [facility] [place] [address] [place] [phone] Social History Tobacco Use [...] you attend mu-ism or Patient refused 2020 zoroastrianism services? Do you belong to any clubs [...] Sign Reading Time Taken Comments Blood Pressure 139/89 01/22/2022 10:27 AM CDT Pulse 90 01/22/2022 10:27 AM CDT Temperature 36.1 ??C (97 ??F) 01/22/2022 10:27 AM CDT Respiratory Rate - - Oxygen Saturation - - Inhaled Oxygen Concentration - - Weight 67.1 kg (147 lb 14.9 oz) 01/22/2022 10:27 AM CDT Height - - Body Mass Index 25.22 08/12/2021 10:13 AM CDT documented in this encounter Patient Instructions Patient InstructionsPelachEvette APRN, C.N.P., M.S.N. - 01/22/2022 10:58 AM CDT 1.Xray lumbar spine and urinalysis today. Evette to call with results and next steps. 2.Take Ibuprofen, alternating with tylenol as needed for pain. 3.See Dr. Gillette for a consult on your ongoing back pain. documented in this encounter Progress Notes Evette Van APRN C.N.P., M.S.N. - 01/22/2022 11:00 AM CDT Images from the original note were not included. SUBJECTIVE CHIEF COMPLAINT/REASON FOR VISIT Chief Complaint Patient presents with ??? Back Pain Flank pain, heat, ice, ibuprofen, tylenol HISTORY OF PRESENT ILLNESS Alon Jaimes is a pleasant 46 y.o. male who presents to the clinic today for right sided low back pain, right flank pain. Right sided low back pain/radicular leg pain: Alon explains that this has been a chronic pain for him, however the pain is worse currently. Alon denies an injury. 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 Alon also has two small children which causes him to have to be active as well. Alon explains that he has attended PT in the past and this has been somewhat helpful. Alon explains that he needs to keep working and it is becomingthe busy time. He explains that with his current level of pain, he is having difficulty doing the activities he would like to due to his pain. Alon has taken Oxycodone for the pain which is helpful.He has also taken otc medications which have not been helpful. He has also tried Lidocaine patches which have not been helpful. Alon is requesting that his Oxycodone be refilled today. REVIEW OF SYSTEMS The following portions of the patient's history were reviewed and updated as appropriate: allergies,current medications, family history, medical history, social history, surgical history and problem list. Pertinent positive ROS are listed above in HPI. Patient Active Problem List Diagnosis ??? Anxiety ??? Attention Deficit With Hyperactivity Disorder ??? Pain Shoulder Left ??? Tear Rotator Cuff Complete Non Trauma Left ??? Major Depressive Disorder Single Episode Unspecified ??? Lesion Superior Glenoid Labrum Initial Left ALLERGIES/CONTRAINDICATIONS Allergies Allergen Reactions ??? Gadolinium-Containing Contrast Media Rash ??? Adhesive Tape-Silicones Other (see comments) ??? Ketorolac Other (see comments) and Itching Cerner listed no reactions ??? Latex Other (see comments) Cerner listed no reactions ??? Penicillins Other (see comments) and GI intolerance Cerner listed no reactions ??? Tramadol Rash CURRENT MEDICATIONS Current Outpatient Medications: ??? acetaminophen (for_TYLENOL) 500 mg tablet, Take 1,000 mg by mouth., Disp: , Rfl: ??? ibuprofen (ADVIL,MOTRIN) 200 mg tablet, Take 200 mg by mouth every 6 (six) hours as needed for pain., Disp: , Rfl: ??? lidocaine (LIDODERM) 5 %, Place 1 patch on the skin daily. Apply to abdominal wall., Disp: 30 patch, Rfl: 0 ??? naproxen sodium (ALEVE/ANAPROX) 220 mg tablet, Take 220 mg by mouth 2 (two) times a day with meals., Disp: , Rfl: ??? sertraline (ZOLOFT) 50 mg tablet, Take 1 tablet (50 mg total) by mouth daily. Take half tablet (25mg) for 1 week. Then increase to 1 tablet daily., Disp: 45 tablet, Rfl: 0 ??? albuterol inhaler, Inhale 2 puffs every 4 (four) hours as needed for wheezing or shortness of breath., Disp: 3 Inhaler, Rfl: 3 ??? dextroamphetamine-amphetamine (AdderalL) 10 mg tablet, Take 1 tablet (10 mg total) by mouth 2 (two) times a day., Disp: 60 tablet, Rfl: 0 ??? dextroamphetamine-amphetamine (AdderalL) 10 mg tablet, Take 1 tablet (10 mg total) by mouth 2 (two) times a day., Disp: 60 tablet, Rfl: 0 ??? dextroamphetamine-amphetamine (AdderalL) 10 mg tablet, Take 1 tablet (10 mg total) by mouth 2 (two) times a day. (Patient taking differently: Take 10 mg by mouth daily.), Disp: 60 tablet, Rfl: 0 OBJECTIVE VITAL SIGNS Vitals: 01/22/22 1027 BP: 139/89 Pulse: 90 Temp: 36.1 ??C PHYSICAL EXAMINATION General: Well-nourished, well-developed 46 y.o. in no apparent distress. Awake, alert, age appropriate. HEENT: Head is normocephalic, atraumatic. Neck: Neck is supple without lymphadenopathy. Cardiovascular: Regular rate and rhythm without murmurs. Lungs: Clear to auscultation bilaterally with no adventitious sounds Skin: Warm, pink, and dry. No rashes or lesions. Extremities: No peripheral edema. Musculoskeletal Lumbar back: No swelling, deformity or spasms. Decreased range of motion. Back: Legs: Comments: Right sided low back pain with radicular pain down leg into right foot. Musculoskeletal: Limited ROM with sit to stand and walking due to right sided low back pain. Neurologic: Alert and oriented x3. ASSESSMENT / PLAN IMPRESSION/REPORT/PLAN: #1 Pain Low Back Other #2 Pain Flank Discussion ensued regarding using narcotic medications to treat chronic pain. I explained that I would not leland refilling Oxycodone. Patient asked that I update his primary CARD BOXER, Anthony Carpenter, and I explained that I would certainly do that for him. Patient Instructions: 1.Xray lumbar spine and urinalysis today. Evette to call with results and next steps. 2.Take Ibuprofen, alternating with tylenol as needed for pain. 3.See Dr. Gillette for a consult on your ongoing back pain. All questions have been answered. Patient demonstrated understanding and verbalized agreement with the plan. Update Anthony Carpenter per patient request. Evette Van APRN, C.N.P., M.S.N. Addendum 01/23/2022 0828: UA completed yesterday normal, no blood in urine. Patient did not schedule lumbar spine x ray. Notes state patient has presented to the ER today with pain. Will follow up patient as needed. Evette Van APRN, C.N.Gabriel., M.S.N. documented in this encounter Plan of Treatment Scheduled Orders Name Type Priority Associated Diagnoses Order S chedule Urinalysis with Lab Routine Pain Low Back Ot her Expected: Microscopic: Urine, Pain Flank 01/23/20 22 Midstream (Approximate), Expires: 04/23/2023 DX Lumbar Spine 2-3 Imaging RAD - Routine (most Pain Low Back Other Expected: Views inpatients and all Pain Flank , outpatients) Expires: 04/23/2023 Scheduled Referrals Name Type Priority Associated Order Schedule Diagnoses Physical Medicine and Outpatient Referral Routine Pain Low Ashley k Expected: Rehabilitation - Other 01/22/2022 General consult Radiculopathy (Approximat e), (clinic) Expires: 04/23/2023 documented as of this encounter Visit Diagnoses Diagnosis Pain Low Back Other - Primary Pain Flank Radiculopathy documented in this encounter Additional Health Concerns Assessment Noted Time PHQ-9 Depression Total Score: 11 01/02/2022 12:02 PM C DT documented as of this encounter Care Teams Night Monitor Relationship Specialty Start Date End Date Anthony Carpenter APRN, C.N.P., PCP - General Family Medicine M.S.N. [address] [place] [phone] documented as of this encounter
--- OUTSIDE RECORDS SUMMARY | 2022-08-19 06:49 | XMS_ITS | Encounter Summary ---
:1975 Author Organization [facility] Address [address] [place] [address] Care Team Providers Name Role Phone Anthony Caprenter APRN C.N.P., M.S.N. Primary Care Provider + Reason for Visit Reason Comments Back Pain Encounter Details Date Type Department Care Team Description 02/18/2022 - Emergency [facility] Pain Back (Primary Dx) 02/19/2022 [address] [place] [phone] Social History Tobacco Use Types Packs/Day [...] or relatives? How often do you attend congregational or Patient refused 2020 latter-day services? Do you belong to any clubs or No 07/17/2021 organizations such as congregational groups, unions, fraternal or athletic groups, or [...] place to sleep or slept in a nursing home (including now)? Education Answer Date Recorded [...] every 4 (four) hours tablet as needed. oxyCODONE-acetaminophen 0 02/18/2022 0 03/14/2022 (PERCOCET) 5-325 mg per tablet oxyCODONE-acetaminophen Take 1 tablet by 0 202103/14/2022 (PERCOCET) 5-325 mg per mouth. tablet documented as of this encounter Plan of Treatment Not on filedocumented as of this encounter Visit Diagnoses Diagnosis Pain Back - Primary documented in this encounter Additional Health Concerns Assessment Noted Time PHQ-9 Depression Total Score: 11 01/02/2022 12:02 PM C DT documented as of this encounter Care Teams Hand Leather Trimmer Relationship Specialty Start Date End Date Anthony Carpenter, ELA, C.N.P., PCP - General Family Medicine M.S.N. [address] [phone] documented as of this encounter
--- OUTSIDE RECORDS SUMMARY | 2022-08-19 06:49 | XMS_ITS | Encounter Summary ---
:1975 Author Organization [facility] Address [address] [place] [address] Care Team Providers Name Role Phone Jayden Anthony Zuñiga APRN C.N.Gabriel., M.S.N. Primary Care Provider + Encounter Details Date Type Department Care Team Description 10/22/2021 Emergency [facility] Bite Dog Hand Open Initial L eft (Primary Dx); [address] [place] [phone] Social History Tobacco Use Types Packs/Day [...] you attend denominational or Patient refused 2020 jew services? Do you belong to any clubs [...] place to sleep or slept in a penitentiary (including now)? Education Answer Date Recorded What [...] needed for wheezing or shortness of breath. dextroamphetamine-amphet Take 1 tablet (10 mg 60 tablet 0 1 10/30/2020 03/14/2022 amine (AdderalL) 10 mg total) by mouth 2 tablet (two) times a day. dextroamphetamine-amphet Take 1 tablet (10 mg 60 tablet 0 1 11/30/2020 03/14/2022 amine (AdderalL) 10 mg total) by mouth 2 tablet (two) times a day. dextroamphetamine-amphet Take 1 tablet (10 mg 60 tablet 0 0 10/29/2021 02/05/2022 amine (AdderalL) 10 mg total) by mouth 2 tablet (two) times a day. diclofenac sodium Take 1 tablet (100 21 tablet 0 08/28/2021 01/02/2022 (VOLTAREN XR) 100 mg 24 mg total) by mouth hr tablet daily. Do not crush or chew. lidocaine (LIDODERM) 5 % Place 1 patch on the 30 patch 0 1 05/08/2022 skin daily. Apply to abdominal wall. LORazepam (ATIVAN) 0.5 0 07/31/2021 mg tablet pantoprazole (PROTONIX) Take 1 tablet (40 mg 180 tablet 3 01/02/2022 40 mg EC tablet total) by mouth 2 (two) times a day before breakfast and dinner. documented as of this encounter Plan of Treatment Not on filedocumented as of this encounter Procedures Procedure Name Priority Date/Time Associated Comments Diagnosis DC XR HAND MIN 3V RAD - Semiurgent 10/22/2021 8:15 Pain Hand Right Results for this (Fast; most ED AM PIT SHOVEL OPERATOR procedure are in patients; some the results inpatients) section. documented in this encounter Results DX Hand Right 3 Views (10/22/2021 8:15 AM PIT SHOVEL OPERATOR) Anatomical Region Laterality Modality Upper Extremity, Hand, Musculoskeletal RST LOS, Right Digital Radiography Musculoskeletal ARZ LOS, Muskuloskeletal FLA LOS Specimen (Source) Anatomical Collection Method Collection Time Re ceived Time Location / / Volume Laterality 10/22/2021 9:05 AM PIT SHOVEL OPERATOR Impressions 10/22/2021 9:11 AM PIT SHOVEL OPERATOR No fracture or malalignment. There is a punctate density in the soft tissues on the dorsal lateral third digit at the le ernesto of the middle phalanx measuring less than a millimeter, favor artifact or a p unctate density on the skin. No evidence for large foreign body or dog tooth. Sof t tissue swelling. No evidence for soft tissue emphysema. Mild degenerative avendano ge. Narrative 10/22/2021 9:11 AM PIT SHOVEL OPERATOR EXAM: DX HAND RIGHT 3 VIEWS Procedure Note Souleymane Peck M.D. - 10/22/2021Formatt ing of this note might be different from the original. EXAM: DX HAND RIGHT 3 VIEWS IMPRESSION: No fracture or malalignment. There is a punctate density in the soft tissues on the dorsal lateral third digit at the le ernesto of the middle phalanx measuring less than a millimeter, favor artifact or a p unctate density on the skin. No evidence for large foreign body or dog tooth. Sof t tissue swelling. No evidence for soft tissue emphysema. Mild degenerative avendano ge. Watson Dalal III DIAGNOSTIC IMAGING PROCEDURES documented in this encounter Visit Diagnoses Diagnosis Bite Dog Hand Open Initial Left - Primar y Pain Hand Right documented in this encounter Additional Health Concerns Assessment Noted Time PHQ-9 Depression Total Score: 16 12/29/2019 7:41 AM CD T documented as of this encounter Care Teams Academic Vice President Relationship Specialty Start Date End Date Anthony Carpenter, ELA, C.N.P., PCP - General Family Medicine M.S.N. [address] [place] [phone] documented as of this encounter
--- OUTSIDE RECORDS SUMMARY | 2022-08-19 06:49 | XMS_ITS | Encounter Summary ---
:1975 Author Organization [facility] Address [address] [place] [address] Care Team Providers Name Role Phone Anthony Carpenter APRN C.N.P., M.S.N. Primary Care Provider + Reason for Visit Reason Comments Post Hospital Follow-up 1st attempt and 2nd attempt Encounter Details Date Type Department Care Team Description 01/27/2022 Clinical Communication Department of [facility], Tami Bedoya Follow-up (1st [facility], in 2199 attempt and 2nd [facility] attempt) [address] [place] [phone] Social History Tobacco Use Types Packs/Day Years [...] or relatives? How often do you attend samaritan or Patient refused 2020 confucianism services? Do you belong to any clubs or No 07/17/2021 organizations such as samaritan groups, unions, fraternal or athletic groups, or [...] to pay for the very basics like [employer] hat hard 07/17/2021 food, housing, medical care, [...] this encounter Miscellaneous Notes Telephone Encounter - Elke Lott R.N. - 01/27/2022 8:30 AM CDT Alon Jaimes is not eligible for the Adult Medical Care Coordination Program and needs theFU call to be completed. Patient was dismissed from the [facility] on 01/24/22 at 1737 for Back pain/sciatrica/central disc herniation. [facility] Exclusion Criteria: Lacks 2 qualifying chronic conditions for program. documented in this encounter Plan of Treatment Not on filedocumented as of this encounter Visit Diagnoses Not on filedocumented in this encounter Additional Health Concerns Assessment Noted Time PHQ-9 Depression Total Score: 11 01/02/2022 12:02 PM C DT documented as of this encounter Care Teams Prosthodontist/Educator Relationship Specialty Start Date End Date Anthony Carpenter, ELA, C.N.P., PCP - General Family Medicine M.S.N. [address] [phone] documented as of this encounter
--- OUTSIDE RECORDS SUMMARY | 2022-08-19 06:49 | XMS_ITS | Encounter Summary ---
:[address] [facility] Address [address] [place] [address] Care Team Providers Name Role Phone Anthony Carpenter APRN, C.N.Harsha, M.S.N. Primary Care Provider + Reason for Visit Reason Comments Abdominal Pain Encounter Details Date Type Department Care Team Description 02/16/2022 Nurse Triage Department of Zully Hdz, Abdominal Pain Medicine, [place] DoreneSKate, R.N. [facility], in [place], [facility] [address] [place], [place] [address] [phone] [place] [address] [facility] [phone] Social History Tobacco Use Types Packs/Day Years [...] or relatives? How often do you attend confucianism or Patient refused 2020 mormonism services? Do you belong to any clubs or No 07/17/2021 organizations such as confucianism groups, unions, fraternal or athletic groups, or [...] to pay for the very basics like [employer] hat hard 07/17/2021 food, housing, medical care, [...] this encounter Miscellaneous Notes Telephone Encounter - Zully Aguirre M.S.N., R.N. - 02/16/2022 10:20 PM CDT Chief Complaint / Reason for Call Patient is a 46 y.o. male calling regarding Abdominal Pain. Assessment Concern: The patient is calling with severe abdominal pain and rectal bleeding. He is sitting on thetoilet and states that he is bleeding and has so much pain that he cannot move. Present for: Now Home cares tried: Unknown Calling to request: Advice The recommended disposition is Call EMS 911 Now. Reason for Disposition ??? Shock suspected (e.g., cold/pale/clammy skin, too weak to stand, low BP, rapid pulse) Protocols used: ABDOMINAL PAIN - [id number] Care Advice Patient/Caregiver understands and will follow care advice?: Yes, able to teach back CALL EMS 911 NOW: * Immediate medical attention is needed. You need to hang up and call 911 (or an ambulance). CARE ADVICE given per Abdominal Pain, Male (Adult) guideline. documented in this encounter Plan of Treatment Not on filedocumented as of this encounter Visit Diagnoses Not on filedocumented in this encounter Additional Health Concerns Assessment Noted Time PHQ-9 Depression Total Score: 11 01/02/2022 12:02 PM C DT documented as of this encounter Care Teams Generator Operator Relationship Specialty Start Date End Date Anthony Carpenter, ELA, C.N.P., PCP - General Family Medicine M.S.N. [address] [phone] documented as of this encounter
--- OUTSIDE RECORDS SUMMARY | 2022-08-19 06:49 | XMS_ITS | Encounter Summary ---
:1975 Author Organization [facility] Address [address] [place] [address] Care Team Providers Name Role Phone Jayden Anthony Zuñiga APRN C.N.Harsha, M.S.N. Primary Care Provider + Encounter Details Date Type Department Care Team Description 09/18/2021 Hospital Encounter Department of [facility], Kanu, Pain S houlder Left; Radiology in M.D. Pain Shoulder Right [place], [place] [address] [place] [phone] Social History Tobacco Use Types Packs/Day Years [...] or relatives? How often do you attend cheondoism or Patient refused 2020 baptism services? Do you belong to any clubs or No 07/17/2021 organizations such as cheondoism groups, unions, fraternal or athletic groups, or [...] to pay for the very basics like [employer] hat hard 07/17/2021 food, housing, medical care, [...] Treatment Scheduled Orders Name Type Priority Associated Order Schedule Diagnoses DX Shoulder Right Imaging RAD - Routine (most Pain Shoulder Ri ght Once for 1 2+ Views inpatients and all Occurrenc es starting outpatients) 09/18/2021 unti l 09/18/2021 documented as of this encounter Procedures Procedure Name Priority Date/Time Associated Comments Diagnosis DX SHOULDER RAD - Routine 09/18/2021 9:23 Pain Shoulder Results fo r this BILATERAL 2+ (most inpatients AM LAB ASSOCIATE Left procedure are in VIEWS and all Pain Shoulder the results outpatients) Right section. documented in this encounter Results DX Shoulder Bilateral 2+ Views (09/18/2021 9:23 AM LAB ASSOCIATE) Anatomical Region Laterality Modality Upper Extremity, Shoulder, Musculoskeletal RST LOS, Bilatera l Digital Radiography Musculoskeletal ARZ LOS, Muskuloskeletal FLA LOS Specimen (Source) Anatomical Collection Method Collection Time Re ceived Time Location / / Volume Laterality 09/18/2021 9:28 AM LAB ASSOCIATE Impressions 09/18/2021 9:39 AM LAB ASSOCIATE Right lateral humeral joint is normal. Mild, type 2, AC joint separation on the right, not significant ly changed. Left shoulder demonstrates small foci of heterotopic ossification, likely postsurgical in nature. There has been prior biceps tenodesis on the left. Glenohumeral joint is normal on the left Narrative 09/18/2021 9:39 AM LAB ASSOCIATE EXAM: DX SHOULDER BILATERAL 2+ VIEWS COMPARISON: , 2020, July 05, July 17, 2020 Procedure Note Juan Gillette M.D. - 09/18/2021For matting of this note might be different from the original. EXAM: DX SHOULDER BILATERAL 2+ VIEWS COMPARISON: 229, 2020, July 05, July 17, 2020 IMPRESSION: Right lateral humeral joint is normal. M ild, type 2, AC joint separation on the right, not significant ly changed. Left shoulder demonstrates small foci of heterotopic ossification, likely postsurgical in nature. There has been prior biceps tenodesis on the left. Glenohumeral joint is normal on the left Kanu Iyer M.D. [facility] SHASHI MARTIN documented in this encounter Visit Diagnoses Diagnosis Pain Shoulder Left Pain Shoulder Right documented in this encounter Additional Health Concerns Assessment Noted Time PHQ-9 Depression Total Score: 16 12/29/2019 7:41 AM CD T documented as of this encounter Care Teams Rural Carrier Relationship Specialty Start Date End Date Anthony Carpenter, ELA, C.N.P., PCP - General Family Medicine M.S.N. [address] [phone] documented as of this encounter
--- OUTSIDE RECORDS SUMMARY | 2022-08-19 06:49 | XMS_ITS | Encounter Summary ---
:1975 Author Organization [facility] Address [address] [place] [address] Care Team Providers Name Role Phone Jayden Anthony Zuñiga APRN C.N.Gabriel., M.S.N. Primary Care Provider + Encounter Details Date Type Department Care Team Description 09/16/2021 Clinical Communication Department of Kanu Iyer, Orthopedic Surgery in [place], [place] [address] [place] [phone] Social History Tobacco Use Types Packs/Day Years [...] or relatives? How often do you attend sabianism or Patient refused 2020 pentecostalism services? Do you belong to any clubs or No 07/17/2021 organizations such as sabianism groups, unions, fraternal or athletic groups, or [...] to pay for the very basics like [employer] hard 07/17/2021 food, housing, medical care, and [...] this encounter Miscellaneous Notes Telephone Encounter - Kanu Iyer M.D. - 09/17/2021 11:01 AM CST Ok x-rays for right shoulder ordered TO GRADER Telephone Encounter - Makayla Chadwick LPatriciaP.N. - 09/17/2021 10:48 AM CST Patient states he was walking down steps in his home and slipped falling approximately 7 steps injuring right shoulder on 08/25/21. Has been seen several times since injury in [facility] ER in [place] on 09/10/21, [facility] 09/04/21, [facility] 09/03/21, [facility] ER 08/28/21. Patient has been evaluated by Hilda VICKERS at [facility] in [place]. Patient is wanting to be seen by Dr. Iyer for evaluation of right shoulder for widening of his AC joint and possible cortisone injection. Patient already has appointment to be seen 09/18/21. TO GRADER Telephone Encounter - Mariama Marshall - 09/17/2021 10:06 AM CST Patient returning a call to the nurse. TO GRADER Telephone Encounter - Makayla Chadwick L.P.N. - 09/17/2021 10:00 AM CST Left message to call clinic back to gather additional information on dates of injury, treatment to date, etc. TO GRADER Telephone Encounter - Brenda Potter - 09/16/2021 12:38 PM CST Reason for Communication: Patient fell and was seen at [facility] in the [facility] - please review x-rays and notes and call him back at Current Can Nursing/Provider leave a detailed message?: yes Did the patient refuse triage through Nurse line? (for symptom based concerns): na Action Needed: Please call him back Name of Medication (if relevant): na Please send all scheduling replies to scheduling pool. TO GRADER documented in this encounter Plan of Treatment Not on filedocumented as of this encounter Visit Diagnoses Not on filedocumented in this encounter Additional Health Concerns Assessment Noted Time PHQ-9 Depression Total Score: 16 12/29/2019 7:41 AM CD T documented as of this encounter Care Teams Cup Setter Lockstitch Relationship Specialty Start Date End Date Anthony Carpenter APRN, C.N.P., PCP - General Family Medicine M.S.N. [address] [phone] documented as of this encounter
--- OUTSIDE RECORDS SUMMARY | 2022-08-19 06:49 | XMS_ITS | Encounter Summary ---
:1975 Author Organization [facility] Address [address] [place] [address] Care Team Providers Name Role Phone Jayden Anthony Zuñiga APRN C.N.Gabriel., M.S.N. Primary Care Provider + Encounter Details Date Type Department Care Team Description 09/10/2021 Emergency [facility] Pain Clavicle (Primary Dx) [address] [place] [phone] Social History Tobacco Use Types Packs/Day [...] you attend jain or Patient refused 2020 pentecostal services? Do [...] place to sleep or slept in a alf (including now)? Education Answer Date Recorded What [...] of this encounter Visit Diagnoses Diagnosis Pain Clavicle - Primary documented in this encounter Additional Health Concerns Assessment Noted Time PHQ-9 Depression Total Score: 16 12/29/2019 7:41 AM CD T documented as of this encounter Care Teams Financial Coordinator Relationship Specialty Start Date End Date Anthony Carpenter, ELA, C.N.P., PCP - General Family Medicine M.S.N. [address] [phone] documented as of this encounter
--- OUTSIDE RECORDS SUMMARY | 2022-08-19 06:49 | XMS_ITS | Encounter Summary ---
:1975 Author Organization [facility] Address [address] [place] [address] Care Team Providers Name Role Phone Anthony Carpenter APRN, C.N.PPatricia, M.S.N. Primary Care Provider + Reason for Visit Reason Comments Med Refill Encounter Details Date Type Department Care Team Description 12/05/2021 Refill Department of Family Medicine, Anthony Carpenter APRN, Med Refill [facility], in [place], C. N.Harsha, M.S.N. [place] [address] [address] [place] [address] [place] [address] [facility] [phone] Social History Tobacco Use Types Packs/Day Years [...] or relatives? How often do you attend yazidi or Patient refused 2020 latter-day services? Do you belong to any clubs or No 07/17/2021 organizations such as yazidi groups, unions, fraternal or athletic groups, or [...] place to sleep or slept in a [facility] (including now)? Education Answer Date Recorded What is the highest level of school you have Some college, n o degree 07/17/2021 completed or the highest degree you have received? Sex Assigned at Date Recorded Not on file documented as of this encounter Miscellaneous Notes Telephone Encounter - Mary Purcell - 12/05/2021 10:39 AM CST Nurse review: Unable to forward request to provider; Controllled Substance, CSA Primary Provider: Anthony Carpenter APRN, C.N.P., M.S.N. Requested Prescriptions Pending Prescriptions Disp Refills ??? dextroamphetamine-amphetamine (AdderalL) 10 mg tablet 60 tablet 0 Sig: Take 1 tablet (10 mg total) by mouth 2 (two) times a day. Pharmacy (include location): [id number] AB DEVELOPER Telephone Encounter - Naz Zelaya - 12/05/2021 10:34 AM CST Name of Medication: Dextroamphetamine-amphenamine (AdderalL) 10 mg tablet Provider: Anthony Carpenter Strength: 10 mg Frequency: 10 mg, 2 times daily Pharmacy: [facility] documented in this encounter Plan of Treatment Not on filedocumented as of this encounter Visit Diagnoses Not on filedocumented in this encounter Additional Health Concerns Assessment Noted Time PHQ-9 Depression Total Score: 16 12/29/2019 7:41 AM CD T documented as of this encounter Care Teams Employment Attorney Relationship Specialty Start Date End Date Anthony Carpenter, ELA, C.N.P., PCP - General Family Medicine M.S.N. [address] [phone] documented as of this encounter
--- OUTSIDE RECORDS SUMMARY | 2022-08-19 06:49 | XMS_ITS | Encounter Summary ---
:1975 Author Organization [facility] Address [address] [place] [address] Care Team Providers Name Role Phone Jayden Anthony Zuñiga APRN C.N.Gabriel., M.S.N. Primary Care Provider + Encounter Details Date Type Department Care Team Description 09/17/2021 Clinical Communication Department of Kanu Iyer, Orthopedic Surgery in [place], [place] [address] [place] [phone] Social History Tobacco Use Types Packs/Day Years [...] or relatives? How often do you attend christian or Patient refused 2020 cheondoism services? Do you belong to any clubs or No 07/17/2021 organizations such as christian groups, unions, fraternal or athletic groups, or [...] to pay for the very basics like [employer] hard 07/17/2021 food, housing, medical care, and [...] this encounter Miscellaneous Notes Telephone Encounter - Maria Ines Flores L.P.N. - 09/17/2021 4:07 PM NURSING STAFF DEVELOPMENT COORDINATOR Left message for patient to arrive early for Xray for appt on 09/18/21 ING STAFF DEVELOPMENT COORDINATOR documented in this encounter Plan of Treatment Not on filedocumented as of this encounter Visit Diagnoses Not on filedocumented in this encounter Additional Health Concerns Assessment Noted Time PHQ-9 Depression Total Score: 16 12/29/2019 7:41 AM CD T documented as of this encounter Care Teams Psychologist Military Personnel Relationship Specialty Start Date End Date Anthony Carpenter, ELA, C.N.P., PCP - General Family Medicine M.S.N. [address] [phone] documented as of this encounter
--- OUTSIDE RECORDS SUMMARY | 2022-08-19 06:49 | XMS_ITS | Encounter Summary ---
:1975 Author Organization [facility] Address [address] [place] [address] Care Team Providers Name Role Phone Anthony Carpneter APRN, C.N.P., M.S.N. Primary Care Provider + Encounter Details Date Type Department Care Team Description 12/06/2021 Orders Only Department of Family Anthony Carpenter APR N, Medicine, [facility], C.N.P ., M.S.N. in [facility] [address] [place] [phone] (Wo rk) Social History Tobacco [...] or relatives? How often do you attend sabianist or Patient refused 2020 islam services? Do you belong to any clubs or No 07/17/2021 organizations such as sabianist groups, unions, fraternal or athletic groups, or [...] to pay for the very basics like [employer] hat hard 07/17/2021 food, housing, medical care, [...] documented as of this encounter Care Teams Managed Care Provider Relationship Specialty Start Date End Date Anthony Carpenter, ELA, C.N.P., PCP - General Family Medicine M.S.N. [address] [phone] documented as of this encounter
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
--- OUTSIDE RECORDS SUMMARY | 2022-08-19 06:49 | XMS_ITS | Encounter Summary ---
:1975 Author Organization [facility] Address [address] [place] [address] Care Team Providers Name Role Phone Anthony Carpenter APRN, C.N.P., M.S.N. Primary Care Provider + Encounter Details Date Type Department Care Team Description 08/30/2021 Orders Only Department of Family Anthony Carpenter APR N, Medicine, [facility], C.N.P ., M.S.N. in [facility] [address] [place] [phone] (Wo rk) Social History Tobacco [...] or relatives? How often do you attend anglican or Patient refused 2020 evangelical services? Do you belong to any clubs or No 07/17/2021 organizations such as anglican groups, unions, fraternal or athletic groups, or [...] to pay for the very basics like [employer] hat hard 07/17/2021 food, housing, medical care, [...] documented as of this encounter Care Teams Store Sales Consultant Relationship Specialty Start Date End Date Anthony Carpenter, ELA, C.N.P., PCP - General Family Medicine M.S.N. [address] [phone] documented as of this encounter
--- OUTSIDE RECORDS SUMMARY | 2022-08-19 06:49 | XMS_ITS | Encounter Summary ---
:1975 Author Organization [facility] Address [address] [place] [address] Care Team Providers Name Role Phone Jayden Anthony Zuñiga APRN C.N.Harsha, M.S.N. Primary Care Provider + Encounter Details Date Type Department Care Team Description 09/17/2021 Orders Only Department of Kanu Iyer Pain Shoulde r Right Orthopedic Surgery in M.D. (Primary Dx) [place], [place] [address] [place] [phone] Social History Tobacco Use Types Packs/Day Years [...] you attend adventism or Patient refused 2020 mu-ism services? Do you belong to any clubs [...] to pay for the very basics like [employer] hat hard 07/17/2021 food, housing, medical care, [...] Type Priority Associated Diagnoses Order S chedule DX Shoulder Right Imaging RAD - Routine (most Pain Shoulder Ri ght Expected: 2+ Views inpatients and all 1, outpatients) Expires: 09/17/2022 documented as of this encounter Visit Diagnoses Diagnosis Pain Shoulder Right - Primary documented in this encounter Additional Health Concerns Assessment Noted Time PHQ-9 Depression Total Score: 16 12/29/2019 7:41 AM CD T documented as of this encounter Care Teams Dielectric Embossing Machine Operator Relationship Specialty Start Date End Date Anthony Carpenter, CONVEYOR TENDER, C.N.P., PCP - General Family Medicine M.S.N. [address] [place] [phone] documented as of this encounter
--- OUTSIDE RECORDS SUMMARY | 2022-08-19 06:49 | XMS_ITS | Encounter Summary ---
:1975 Author Organization [facility] Address [address] [place] [address] Care Team Providers Name Role Phone Anthony Carpenter APRN C.N.P., M.S.N. Primary Care Provider + Reason for Visit Reason Comments Injury Encounter Details Date Type Department Care Team Description 12/23/2021 - Emergency [facility] Injury Head Initial; 12/24/2021 [address] [facility] [place] [phone] Social History Tobacco Use Types Packs/Day [...] or relatives? How often do you attend uatsdin or Patient refused 2020 voodoo services? Do you belong to any clubs or No 07/17/2021 organizations such as uatsdin groups, unions, fraternal or athletic groups, or [...] Diagnosis CT ABDOMEN PELVIS RAD - Semiurgent 12/23/2021 6:31 Pain Flank Res ults for this WITHOUT IV (Fast; most ED PM CDT procedure are in CONTRAST patients; some the results inpatients) section. CT HEAD WITHOUT RAD - Semiurgent 12/23/2021 6:11 Injury Head Resul ts for this IV CONTRAST (Fast; most ED PM CDT Initial procedure are in patients; some the results inpatients) section. documented in this encounter Results CT Abdomen Pelvis without IV Contrast (12/23/2021 6:31 PM CDT) Anatomical Region Laterality Modality Abdomen, Pelvis, Abdominal RST LOS, Abdominal ARZ LOS, N/A Computed Tomography Abdominal FLA LOS Specimen (Source) Anatomical Collection Method Collection Time Re ceived Time Location / / Volume Laterality 12/24/2021 8:12 AM CDT Impressions 12/24/2021 8:16 AM CDT Nothing acute. Narrative 12/24/2021 8:16 AM CDT EXAM: CT ABDOMEN PELVIS WITHOUT IV CONTRAST COMPARISON: CT 06/14/21 FINDINGS: Lack of IV contrast lowers sen sitivity for detecting visceral organ injury. None is seen. No free fluid or free air. Tiny hepatic cysts. Anteriorly rotated r ight kidney. No renal stones or hydronephrosis. Normal appendix. No acute pelvic fracture. 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 Mild bilateral hip degene rative joint disease. Mild lumbar spondylosis. vRad: ??Findings concordant with mackenzie Betts report. Procedure Note Kanu Agrawal M.D. - 12/24/2021 EXAM: CT ABDOMEN PELVIS WITHOUT IV CONTR AST COMPARISON: CT 06/14/21 FINDINGS: Lack of IV contrast lowers sen sitivity for detecting visceral organ injury. None is seen. No free fluid or free air. Tiny hepatic cysts. Anteriorly rotated r ight kidney. No renal stones or hydronephrosis. Normal appendix. No acute pelvic fracture. 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 Mild bilateral hip degene rative joint disease. Mild lumbar spondylosis. vRad: Findings concordant with dee dee Betts report. IMPRESSION: Nothing acute. Tan E Rybar M.D. IMG CT PROCEDURES CT Head without IV Contrast (12/23/2021 6:11 PM CDT) Anatomical Region Laterality Modality Head, Neuroradiology RST LOS, Neuroradiology ARZ LOS, N/A Computed Tomography Neuroradiology FLA LOS Specimen (Source) Anatomical Collection Method Collection Time Re ceived Time Location / / Volume Laterality 12/23/2021 6:10 PM CDT Impressions 12/24/2021 8:08 AM CDT No acute intracranial pathology. No acute appreciable fracture. vRad: ??Findings concordant with prelimi yelena Betts report. Narrative 12/24/2021 8:08 AM CDT EXAM: CT HEAD WITHOUT IV CONTRAST COMPARISON: None FINDINGS: No acute intracranial hemorrha ge, midline shift, mass effect, or abnormal extra-axial fluid collection. No hydrocephalus. Basa l cisterns are patent. Cr-white matter differentiation is present. Paranasal sinuses and mastoid a ir cells are relatively clear. Bones of the skull base and calvarium are intact. No acute appreciab le fracture. Procedure Note Neville Johnson M.D. - 12/24/2021Formattin g of this note might be different from the original. EXAM: CT HEAD WITHOUT IV CONTRAST COMPARISON: None FINDINGS: No acute intracranial hemorrha ge, midline shift, mass effect, or abnormal extra-axial fluid collection. No hydrocephalus. Basa l cisterns are patent. Cr-white matter differentiation is present. Paranasal sinuses and mastoid a ir cells are relatively clear. Bones of the skull base and calvarium are intact. No acute appreciab le fracture. IMPRESSION: No acute intracranial pathology. No acut e appreciable fracture. vRad: Findings concordant with dee dee Betts report. Tan HUNTERG CT PROCEDURES documented in this encounter Visit Diagnoses Diagnosis Injury Head Initial Pain Flank documented in this encounter Additional Health Concerns Assessment Noted Time PHQ-9 Depression Total Score: 16 12/29/2019 7:41 AM CD T documented as of this encounter Care Teams Exceptional Needs Teacher Relationship Specialty Start Date End Date Anthony Carpenter APRN, C.N.P., PCP - General Family Medicine M.S.N. [address] [phone] (work) documented as of this encounter
--- OUTSIDE RECORDS SUMMARY | 2022-08-19 06:49 | XMS_ITS | Encounter Summary ---
:[address] [facility] Address [address] [place] [address] Care Team Providers Name Role Phone Jayden Anthony Zuñiga APRN C.N.P., M.S.N. Primary Care Provider + Reason for Visit Reason Comments Head Injury Encounter Details Date Type Department Care Team Description 09/23/2021 Emergency [facility] ED Injury Head Initial [address] (Primary Dx) [place] [address] Social History Tobacco Use Types Packs/Day [...] you attend amish or Patient refused 2020 muslim services? Do you belong to any clubs [...] Name Priority Date/Time Associated Comments Diagnosis CT CERVICAL SPINE RAD - Semiurgent 09/23/2021 11:30 Re sults for this WITHOUT IV (Fast; most ED AM SENIOR PROJECT ACCOUNTANT procedure are in CONTRAST patients; some the results inpatients) section. CT HEAD WITHOUT RAD - Semiurgent 09/23/2021 11:30 Resu lts for this IV CONTRAST (Fast; most ED AM SENIOR PROJECT ACCOUNTANT procedure are in patients; some the results inpatients) section. documented in this encounter Results CT Cervical Spine without IV Contrast (09/23/2021 11:30 AM SENIOR PROJECT ACCOUNTANT) Anatomical Region Laterality Modality Cervical Spine, Neuroradiology RST LOS, Neuroradiology N/A Computed Tomography ARZ LOS, Neuroradiology FLA LOS Specimen (Source) Anatomical Collection Method Collection Time Re ceived Time Location / / Volume Laterality 09/23/2021 11:49 AM SENIOR PROJECT ACCOUNTANT Impressions 09/23/2021 11:51 AM SENIOR PROJECT ACCOUNTANT No acute appreciable fracture or subluxation of the cervical spine. Narrative 09/23/2021 11:51 AM SENIOR PROJECT ACCOUNTANT EXAM: CT CERVICAL SPINE WITHOUT IV CONTRAST COMPARISON: None FINDINGS: Occipital cervical junction is intact. Lateral masses of C1 are normally aligned on C2. Odontoid process is intact. Slight reversal of normal cervical lordosis is likely positional, degenerative, and/or related to spasm. No prevertebral soft tissue swelling. No acute appreciable fracture or traumatic subluxation. Mild multilevel degenerativ e changes. No significant spinal canal stenosis or neural foraminal stenosis at any level. No acute or suspicious extra vertebral findings. Procedure Note Neville Johnson M.D. - 09/23/2021Formattin g of this note might be different from the original. EXAM: CT CERVICAL SPINE WITHOUT IV CONTR AST COMPARISON: None FINDINGS: Occipital cervical junction is intact. Lateral masses of C1 are normally aligned on C2. Odontoid process is intact. Slight reversal of normal cervical lordosis is likely positional, degenerative, and/or related to spasm. No prevertebral soft tissue swelling. No acute appreciable fracture or traumatic subluxation. Mild multilevel degenerativ e changes. No significant spinal canal stenosis or neural foraminal stenosis at any level. No acute or suspicious extra vertebral findings. IMPRESSION: No acute appreciable fracture or subluxa tion of the cervical spine. Aguirre N Perez C.N.P. IMG CT PROCEDURES CT Head without IV Contrast (09/23/2021 11:30 AM SENIOR PROJECT ACCOUNTANT) Anatomical Region Laterality Modality Head, Neuroradiology RST LOS, Neuroradiology ARZ LOS, N/A Computed Tomography Neuroradiology FLA LOS Specimen (Source) Anatomical Collection Method Collection Time Re ceived Time Location / / Volume Laterality 09/23/2021 11:48 AM SENIOR PROJECT ACCOUNTANT Impressions 09/23/2021 11:52 AM SENIOR PROJECT ACCOUNTANT No acute intracranial process. Narrative 09/23/2021 11:52 AM SENIOR PROJECT ACCOUNTANT EXAM: CT HEAD WITHOUT IV CONTRAST COMPARISON: 06/08/2015. FINDINGS: Cr-white differentiation maintained. N o acute intracranial hemorrhage. No mass effect or herniation. No concerning abnormality of the calvari um. Frontal and paranasal sinuses are well-aerated. Globes and retrobulbar str uctures unremarkable. No acute abnormality of the superficial soft tiss ues. Procedure Note Oumar Adhikari M.D. - 09/23/2021Formatt ing of this note might be different from the original. EXAM: CT HEAD WITHOUT IV CONTRAST COMPARISON: 06/08/2015. FINDINGS: Cr-white differentiation maintained. N o acute intracranial hemorrhage. No mass effect or herniation. No concerning abnormality of the calvari um. Frontal and paranasal sinuses are well-aerated. Globes and retrobulbar str uctures unremarkable. No acute abnormality of the superficial soft tiss ues. IMPRESSION: No acute intracranial process. Timothy Perez C.N.P. IMG CT PROCEDURES documented in this encounter Visit Diagnoses Diagnosis Injury Head Initial - Primary documented in this encounter Additional Health Concerns Assessment Noted Time PHQ-9 Depression Total Score: 16 12/29/2019 7:41 AM CD T documented as of this encounter Care Teams Impregnating Helper Relationship Specialty Start Date End Date Anthony Carpenter APRN, C.N.P., PCP - General Family Medicine M.S.N. [address] [place] [phone] documented as of this encounter
--- OUTSIDE RECORDS SUMMARY | 2022-08-19 06:49 | XMS_ITS | Encounter Summary ---
:1975 Author Organization [facility] Address [address] [place] [address] Care Team Providers Name Role Phone Anthony Carpenter APRN C.N.P., M.S.N. Primary Care Provider + Reason for Visit Reason Comments Flank Pain Pain started around midnight the pain radiates down right leg. Numbness, snoted some blood in urine t his mornimg Encounter Details Date Type Department Care Team Description 02/10/2022 Emergency [facility] Caitlin Reeves, Pain Ashley k Lumbar (Primary Dx); Department P.A.-C. Sciatica Right [address] [place] [address] RHODA Almendarez [phone] Social History Tobacco Use Types Packs/Day Years [...] or relatives? How often do you attend anabaptist or Patient refused 2020 baptism services? Do you belong to any clubs or No 07/17/2021 organizations such as anabaptist groups, unions, fraternal or athletic groups, or [...] Sign Reading Time Taken Comments Blood Pressure 139/74 02/10/2022 2:45 PM CDT Pulse 85 02/10/2022 2:45 PM CDT Temperature 36.5 ??C (97.7 ??F) 02/10/2022 12:15 PM CDT Respiratory Rate 20 02/10/2022 12:15 PM CDT Oxygen Saturation 97% 02/10/2022 2:45 PM CDT Inhaled Oxygen Concentration - - Weight 65.1 kg (143 lb 8.3 oz) 02/10/2022 12:10 PM CDT Height 165.1 cm (5' 5) 02/10/2022 12:10 PM CDT Body Mass Index 23.88 02/10/2022 12:10 PM CDT documented in this encounter Discharge Instructions Discharge InstructionsCaitlin Reeves P.A.-C. - 02/10/2022 2:48 PM CDT Please contact your primary care provider for refills of your home medications- oxycodone and Adderall as we are unable to fill those from your emergency department visit. Please contact the [facility] regarding your follow up. AttachmentsThe following attachments cannot be sent through Care Everywhere. Sciatica (Grenadian)documented in this encounter Medications at Time of [...] as needed. documented as of this encounter ED Notes Caitlin Reeves P.A.-C. - 02/10/2022 3:10 PM CDT SUBJECTIVE: CHIEF COMPLAINT/REASON FOR VISIT: Flank Pain (Pain started around midnight the pain radiates down right leg. Numbness, snoted some blood in urine this mornimg) HISTORY OF PRESENT ILLNESS: Patient is a 46 year old male who presents to the ED for evaluation of right lower back pain. Patient has past medical history significant for ADHD, depression. He has had ongoing back pain with recenthospitalization an [facility]. He reports he slipped on the ice and fell in December of 2021 and has been having worsening back pain since his fall. The patient was hospitalized on 01/23/22 for back pain associated with decreased sensation to the right lower extremity and urinary dribbling. While he was hospitalized at [facility] patient underwent laboratory evaluation which were normal. MRI of the lumbar spine demonstrated a small shallow central disc herniation at L5-S1, mild left facet osteoarthritis at L5-S1. Minor disc degenerative changes at T12- L1 and L1-L2. No intrinsic pathology or extrinsic compression of the conus medullaris or cauda equina. Patient was discharged with scheduled Tylenol, Robaxin, gabapentin and p.r.n. oxycodone with referral to spine surgery. Patient tells me he has run out of his oxycodone prescription and is awaiting refills from his primary care provider, he is on a pain contract. He is additionally out of his Adderall prescription. Patient tells me he does not have follow-up until 03/11 with spine surgery. He presents for 10/10 back pain, worsening right leg paresthesias with numbness down to his right great toe. His urinary dribbling returned last evening which patient is concerned about as it is embarrassing. Denies any bowel incontinence. Additionally noted hematuria this morning. Patient denies IVdrug use REVIEW OF SYSTEMS: Constitutional: Negative for chills and fever. HENT: Negative for sore throat. Respiratory: Negative for cough and shortness of breath. Cardiovascular: Negative for chest pain. Gastrointestinal: Negative for abdominal pain, nausea and vomiting. Genitourinary: Positive for hematuria. Negative for bladder incontinence and dysuria. Urinary dribbling Musculoskeletal: Positive for back pain. Skin: Negative for wound. Allergic/Immunologic: Negative for immunocompromised state. Neurological: Positive for numbness. Negative for headaches. ALLERGIES/MEDICATIONS: Reviewed in medical record PAST MEDICAL/FAMILY/SOCIAL HISTORY: Medical History: Past Medical History: Diagnosis Date ??? Colitis Ulcerative (HCC) ??? Stone Kidney OBJECTIVE: INITIAL VITAL SIGNS: Initial Vitals Temperature Pulse Rate Heart Rate Resp Rate Blood Pressure SpO2 02/10/22 1215 02/10/22 1200 -- 02/10/22 1215 02/10/22 1200 02/10/22 1200 36.5 ??C 84 20 (!) 153/103 100 % Pain Score 02/10/22 1158 10 - Worst possible pain PHYSICAL EXAMINATION: Constitutional: Nursing note and vitals reviewed. No distress. HENT: Mouth/Throat: Mucous membranes are moist. Cardiovascular: Regular rhythm and normal heart sounds. Capillary refill: takes less than 3 seconds, Pulmonary/Chest: Effort normal. No respiratory distress. He has no wheezes. He has no rhonchi. He has no rales. Abdominal: Soft. There is no abdominal tenderness. There is no guarding. Musculoskeletal: General: Tenderness present. Lumbar back: Positive right straight leg raise test. Comments: Right lumbar tenderness. Patient has decreased sensation of L1-L5, S1-S2, tested with sharp/dull and alcohol pad- patient verbalizes he is unable to feel after touching which leads me to believe sensation is intact. Motor intact bilaterally, 4/5 on the right. Rectal tone intact Neurological: Alert and oriented to person, place, and time. Skin: Skin is warm and dry. ED COURSE: ED Course as of 02/10/22 1710 ThuFebruary 10, 2022 1340 Patient refused the IV toradol and droperidol Final Diagnoses: as of 02/10/22 1710 Pain Back Lumbar Sciatica Right INTERVENTIONS: Medications sodium chloride 0.9 % injection 2-10 mL (has no administration in time range) ketorolac injection 15 mg (TORADOL) (15 mg intravenous Not Given 02/10/22 1345) droperidoL injection 1.25 mg (INAPSINE) (1.25 mg intravenous Not Given 02/10/22 1345) HYDROmorphone injection 0.5 mg (DILAUDID) (0.5 mg intravenous Given 02/10/22 1342) gabapentin capsule 200 mg (NEURONTIN) (200 mg oral Given 02/10/22 1445) LABS: Labs Reviewed URINALYSIS WITH MICROSCOPIC - Abnormal Result Value Source Urine, Urine, Midstream Clarity Clear Color Yellow Blood Trace (*) Nitrite Negative Leukocyte Esterase Negative Protein Negative Glucose Negative Ketones, QI(U) Negative Bilirubin Negative pH 5.0 Specific [place] 1.025 Urobilinogen 0.2 White Blood Cells None Seen Red Blood Cells None Seen CBC WITH DIFFERENTIAL, B Hemoglobin 16.3 Hematocrit 47.7 Erythrocytes 5.15 MCV 92.6 RBC Distrib Width 13.1 Platelet Count 285 Leukocytes 4.7 Neutrophils 3.28 Lymphocytes 0.99 Monocytes 0.34 Eosinophils 0.03 Basophils 0.03 BASIC METABOLIC PANEL, S/P Potassium, P 4.5 Sodium, P 139 Chloride, P 102 Bicarbonate, P 27 Anion Gap, P 10 BUN (Blood Urea Nitrogen), P 10 Creatinine, P 0.92 eGFR-Black/ >90 eGFR Non-Black/ >90 Calcium, Total, P 9.4 Glucose, P 117 C-REACTIVE PROTEIN (CRP), S/P C-Reactive Protein (CRP), P <3.0 ASSESSMENT AND PLAN: IMPRESSION AND PLAN Patient is a 46 year old male presenting to the ED for back pain. No new trauma/falls. He is vitallystable and afebrile. He presents with right leg paresthesias and urinary dribbling which have been ongoing for the past couple weeks, however, worsening since last night. Patient is out of his oxycodone prescription. Labs were obtained today and unremarkable, trace hematuria. I have low suspicion for renal/ureteral stones and patient had CT imaging from ED visit a couple days ago with no stones identified. I have reviewed the MRI and discussed case with [facility] Dr. Rhodes who feels hisMRI findings of the small shallow disc herniation would not be causing urinary dribbling or sensory deficits as patient describes. No indication for repeat imaging or admission for his neurologic and urinary symptoms. During the ED visit patient refused toradol, droperidol and tylenol. He was treated with 0.5 mg of dilaudid and his gabapentin, pain decreased to 8/10. I informed the patient I am unable to refill his oxycodone and he should work with PCP for his medication management. Additionally, recommend he call [facility] for his follow up care. DIFFERENTIAL DIAGNOSIS Less likely infectious process such as epidural abscess. I have considered the possibility of cauda equina syndrome and discussed with Spine Surgery. I also do not believe that this pain is vascular inorigin, or related to the renal system. DIAGNOSIS: Final diagnoses: [M54.51] Pain Back Lumbar [M54.31] Sciatica Right ED DISCHARGE MEDS: ED Prescriptions None DISPOSITION: Home or Self Nursing Home or Self Care FOLLOW UP: Contact Information for Follow-ups Anthony Carpenter, ELA C.N.P., M.S.N. Specialty: Family Medicine Relationship: PCP - General [address] [facility] [phone] Next Steps: Follow up Caitlin Reeves PA-C Emergency Medicine Caitlin Reeves P.A.-C. 02/10/22 1711 documented in this encounter Plan of Treatment Not on filedocumented as of this encounter Procedures Procedure Name Priority Date/Time Associated Comments Diagnosis CBC WITH STAT 02/10/2022 12:45 Results for this DIFFERENTIAL, B PM CDT procedure ar e in the results section. C-REACTIVE PROTEIN STAT 02/10/2022 12:45 Resul ts for this (CRP), S/P PM CDT procedure are i n the results section. BASIC METABOLIC STAT 02/10/2022 12:45 Results for this PANEL, S/P PM CDT procedure are i n the results section. URINALYSIS WITH STAT 02/10/2022 12:14 Results for this MICROSCOPIC PM CDT procedure are i n the results section. documented in this encounter Results CRP (C-Reactive Protein) (02/10/2022 12:45 PM CDT) P athologist Signature C-Reactive <3.0 <=8.0 mg/L 02/10/2022 [facility] Protein (CRP), 1:05 PM CDT P Specimen Anatomical Collection Method Collection Time Receive d Time (Source) Location / / Volume Laterality Blood (Blood, 02/10/2022 12:45 02/10/2022 Venous) PM CDT 12:47 PM CDT Caitlin Reeves P.A.-C. LAB BLOOD ADD-ON Performing Organization Address City/State/ZIP Code Phon e Number [address] [phone] [place] [address] System [address] Basic Metabolic Panel (02/10/2022 12:45 PM CDT) P athologist Signature Potassium, P 4.5 3.6 - 5.2 02/10/2022 [facility] mmol/L 1:05 PM CDT Sodium, P 139 135 - 145 02/10/2022 [facility] mmol/L 1:05 PM CDT Chloride, P 102 98 - 107 02/10/2022 [facility] mmol/L 1:05 PM CDT Bicarbonate, P 27 22 - 29 02/10/2022 [facility] mmol/L 1:05 PM CDT Anion Gap, P 10 7 - 15 02/10/2022 [facility] 1:05 PM CDT BUN (Blood Urea 10 8 - 24 02/10/2022 [facility] Nitrogen), P mg/dL 1:05 PM CDT Creatinine 0.92 0.74 - 02/10/2022 [facility] 1.35 mg/dL 1:05 PM CDT eGFR-Black/Afric >90 >=60 02/10/2022 [facility] an Ugandan mL/min/BSA 1:05 PM CDT Comment: ----ADDITIONAL INFORMATION---- Estimated GFR calculated using the 2009 CKD_EPI creatinine equation. eGFR Non-Black/ >90 >=60 mL/min/BSA 02/10/2022 1:05 PM CDT [facility] Comment: ----ADDITIONAL INFORMATION---- Estimated GFR calculated using the 2009 CKD_EPI creatinine equation. Calcium, Total, P 9.4 8.6 - 10.0 mg/dL 02/10/2022 1:05 PM CDT [facility] Glucose, P 117 70 - 140 mg/dL 02/10/2022 1:05 PM CDT [facility] Specimen Anatomical Collection Method Collection Time Receive d Time (Source) Location / / Volume Laterality Blood (Blood, 02/10/2022 12:45 02/10/2022 Venous) PM CDT 12:47 PM CDT Caitlin Reeves P.A.-C. LAB BLOOD ADD-ON Performing Organization Address City/State/ZIP Code Phon e Number [address] [phone] [facility] [place] [address] [place] CBC with Differential, Blood (02/10/2022 12:45 PM CDT) P athologist Signature Hemoglobin 16.3 13.2 - 02/10/2022 [facility] 16.6 g/dL 1:11 PM CDT Hematocrit 47.7 38.3 - 02/10/2022 [facility] 48.6 % 1:11 PM CDT Erythrocytes 5.15 4.35 - 02/10/2022 [facility] 5.65 1:11 PM CDT x10(12)/L MCV 92.6 78.2 - 02/10/2022 [facility] 97.9 fL 1:11 PM CDT RBC Distrib Width 13.1 11.8 - 02/10/2022 [facility] 14.5 % 1:11 PM CDT Platelet Count 285 135 - 317 02/10/2022 [facility] x10(9)/L 1:11 PM CDT Leukocytes 4.7 3.4 - 9.6 02/10/2022 [facility] x10(9)/L 1:11 PM CDT Neutrophils 3.28 1.56 - 02/10/2022 [facility] 6.45 1:11 PM CDT x10(9)/L Lymphocytes 0.99 0.95 - 02/10/2022 [facility] 3.07 1:11 PM CDT x10(9)/L Monocytes 0.34 0.26 - 02/10/2022 [facility] 0.81 1:11 PM CDT x10(9)/L Eosinophils 0.03 0.03 - 02/10/2022 [facility] 0.48 1:11 PM CDT x10(9)/L Basophils 0.03 0.01 - 02/10/2022 [facility] 0.08 1:11 PM CDT x10(9)/L Specimen Anatomical Collection Method Collection Time Receive d Time (Source) Location / / Volume Laterality Blood (Blood, 02/10/2022 12:45 02/10/2022 Venous) PM CDT 12:47 PM CDT Caitlin Reeves P.A.-C. LAB BLOOD ADD-ON Performing Organization Address City/State/ZIP Code Phon e Number [facility]- [address] [place] [phone] [place] [address] System [address] (ABNORMAL) Urinalysis with Microscopic: Urine, Midstream (02/10/2022 12:14 PM CDT) Analysis Performed At [facility] Time Signature Source Urine, Urine, 02/10/2022 [facility] Midstream 12:16 PM CDT Clarity Clear Clear 02/10/2022 [facility] 12:18 PM CDT Color Yellow 02/10/2022 [facility] 12:18 PM CDT Comment: ----REFERENCE VALUE---- Colorless Yellow Lucila Blood Trace (A) Negative 02/10/2022 12:18 PM CDT [facility] Nitrite Negative Negative 02/10/2022 12:18 PM CDT [facility] Leukocyte Esterase Negative Negative 02/10/2022 12:18 PM C DT [facility] Protein Negative mg/dL 02/10/2022 12:18 PM CDT [facility] Comment: ----REFERENCE VALUE---- Negative Trace Glucose Negative Negative mg/dL 02/10/2022 12:18 PM CDT [facility] Ketones, QI(U) Negative Negative mg/dL 02/10/2022 12:18 PM CDT [facility] Bilirubin Negative Negative 02/10/2022 12:18 PM CDT [facility] pH 5.0 5.0 - 8.0 02/10/2022 12:18 PM CDT [facility] Specific [place] 1.025 1.001 - 1.035 02/10/2022 12:18 PM CDT [facility] Urobilinogen 0.2 0.2 - 1.0 mg/dL 02/10/2022 12:18 PM C DT [facility] White Blood Cells None Seen /hpf 02/10/2022 12:23 PM CD T [facility] Comment: ----REFERENCE VALUE---- Males: 0-3 Females: 0-10 Unknown: 0-10 Red Blood Cells None Seen 0 - 2 /hpf 02/10/2022 12:23 PM CDT [facility] Specimen Anatomical Collection Method Collection Time Receive d Time (Source) Location / / Volume Laterality Urine (Urine, 02/10/2022 12:14 02/10/2022 Midstream) PM CDT 12:16 PM CDT Caitlin Reeves P.A.-C. LAB URINE ORDERABLES Performing Organization Address City/State/ZIP Code Phon e Number [facility]- [address] [place] [address] [phone] [place] [address] [address] [place] [address] [facility] documented in this encounter Visit Diagnoses Diagnosis Pain Back Lumbar - Primary Sciatica Right documented in this encounter Administered Medications Inactive Administered Medications - up to 3 most recent administrations Medication Order MAR Action Action Date Dose Rate Site gabapentin capsule 200 mg Given 02/10/2022 2:45 PM CDT 200 mg (NEURONTIN) 200 mg, oral, Once, On Thu02/10/22 at 1424, For 1 dose HYDROmorphone injection 0.5 mg (DILAUDID ) Given 02/10/2022 1:42 PM CDT 0.5 mg 0.5 mg, intravenous, Once, On Thu02/10/22 at 1328, For 1 dose sodium chloride 0.9 % injection 2-10 mL 2-10 mL, intravenous, As needed, line care, Starting o n Thu02/10/22 at 1236 documented in this encounter Active and Recently Administered Medications Times are shown in CDT. Scheduled Medication Order 02/08/2022 02/09/2022 02/10/2022 droperidoL injection 1.25 mg (INAPSINE) 1345 (Not Given - Provider: Kanu Vincent R.N. - Reason: Patient/family refused) 1.25 mg, intravenous, Once, On Thu02/10/22 at 1238, For 1 dose gabapentin capsule 200 mg (NEURONTIN) (COMPLETED) 1445 (Given - Provider: Kanu Vincent R.N.) 200 mg, oral, Once, On Thu02/10/22 at 1424, For 1 dose HYDROmorphone injection 0.5 mg (DILAUDID) (COMPLETED) 1342 (Given - Provider: Kanu Vincent R.N.) 0.5 mg, intravenous, Once, On Thu02/10/22 at 1328, For 1 dose ketorolac injection 15 mg (TORADOL) 1345 (Not Given - Provider: Kanu Vincent R.N. - Reason: Patient/family refused) 15 mg, intravenous, Once, On Thu02/10/22 at 1238, For 1 dose, Adult IV push rate: Over 15 seconds. Peds IV push rate: Over 1 minute. 60 mg dose only for IM, not recommended for IV. PRN Medication Order 02/08/2022 02/09/2022 02/10/2022 sodium chloride 0.9 % injection 2-10 mL(Linked Group 1) 2-10 mL, intravenous, As needed, line care, Starting on Thu at 1236 Linked Groups Order Group 1: Place peripheral IV: No upper extremity site restrictions (CANCELED) Upper extremity site restriction: No upp er extremity site restrictions
Quantity of PIVs requested: One
STAT, Once, On Thu02/10/22 at 1237, For 1 occurrence And sodium chloride 0.9 % injection 2-10 mLJump to med 2-10 mL, intravenous, As needed, line ca re, Starting on Thu02/10/22 at 1236 documented in this encounter Additional Health Concerns Assessment Noted Time PHQ-9 Depression Total Score: 11 01/02/2022 12:02 PM C DT documented as of this encounter Care Teams Cattle Farmer Relationship Specialty Start Date End Date Anthony Carpenter, ELA, C.N.P., PCP - General Family Medicine M.S.N. [address] [phone] documented as of this encounter
--- OUTSIDE RECORDS SUMMARY | 2022-08-19 06:49 | XMS_ITS | Encounter Summary ---
:1975 Author Organization [facility] Address [address] [place] [address] Care Team Providers Name Role Phone Jayden Anthony Zuñiga APRN C.N.Harsha, M.S.N. Primary Care Provider + Encounter Details Date Type Department Care Team Description 09/17/2021 Orders Only Department of Kanu Iyer Pain Shoulde r Left Orthopedic Surgery in M.D. (Primary Dx) [place], [place] [address] [place] [phone] Social History Tobacco Use Types Packs/Day Years [...] or relatives? How often do you attend advent or Patient refused 2020 rastafari services? Do you belong to any clubs or No 07/17/2021 organizations such as advent groups, unions, fraternal or athletic groups, or [...] to pay for the very basics like [employer] hat hard 07/17/2021 food, housing, medical care, [...] encounter Visit Diagnoses Diagnosis Pain Shoulder Left - Primary documented in this encounter Additional Health Concerns Assessment Noted Time PHQ-9 Depression Total Score: 16 12/29/2019 7:41 AM CD T documented as of this encounter Care Teams Nurse Consultant Relationship Specialty Start Date End Date Anthony Carpenter, ELA, C.N.P., PCP - General Family Medicine M.S.N. [address] [phone] documented as of this encounter
--- OUTSIDE RECORDS SUMMARY | 2022-08-19 06:49 | XMS_ITS | Encounter Summary ---
:1975 Author Organization [facility] Address [address] [place] [address] Care Team Providers Name Role Phone Anthony Carpenter APRN, C.N.PPatricia, M.S.N. Primary Care Provider + Reason for Visit Reason Comments Med Refill Encounter Details Date Type Department Care Team Description 02/05/2022 Refill Department of Family Medicine, Anthony Carpenter APRN, Med Refill [facility], in [facility], C. N.Harsha, M.S.N. [place] [address] [address] [place] [address] [place] [address] [facility] [phone] Social History Tobacco Use Types Packs/Day Years [...] or relatives? How often do you attend mandaen or Patient refused 2020 spiritism services? Do you belong to any clubs or No 07/17/2021 organizations such as mandaen groups, unions, fraternal or athletic groups, or [...] Notes Telephone Encounter - Digna Morley - 02/11/2022 10:29 AM CDT Called and left a message on voice mail that medication has been refilled for 1 month and in order to get further refills, patient needs to call and schedule an appt per previous message. Telephone Encounter - Zully Noyola - 02/10/2022 3:16 PM CDT Patient called back. He wants to know the status of the refills for his Adderall and Oxycodone. Wants call back at [phone]. Telephone Encounter - Vannesa Flynn L.P.N. - 02/06/2022 2:33 PM CDT Patient needs celeste ppt for a med check within the month Telephone Encounter - Marilyn Morley - 02/05/2022 12:08 PM CDT Images from the original note were not included. Nurse review: Unable to forward request to provider; Controllled Substance, CSA Primary Provider: Anthony Carpenter APRN, C.N.P., M.S.N. Telephone Encounter - Naz Zelaya - 02/05/2022 12:02 PM CDT Patient is completely out of these Rxs. Name of Medication: Dextroamphetamine-amphetamine (AdderalL) 10 mg tablet Provider: Anthony Carpenter Strength: 10 mg Frequency: 10 mg, 2 times daily Pharmacy: [facility] Name of Medication: Oxycodone 5mg tablet Provider: Makenzie Thompson Strength: 5 mg Frequency: take as needed Pharmacy: [facility] documented in this encounter Plan of Treatment Not on filedocumented as of this encounter Visit Diagnoses Not on filedocumented in this encounter Additional Health Concerns Assessment Noted Time PHQ-9 Depression Total Score: 11 01/02/2022 12:02 PM C DT documented as of this encounter Care Teams Fire Officer Relationship Specialty Start Date End Date Anthony Carpenter APRN, C.N.P., PCP - General Family Medicine M.S.N. [address] [phone] documented as of this encounter
--- OUTSIDE RECORDS SUMMARY | 2022-08-19 06:49 | XMS_ITS | Encounter Summary ---
:1975 Author Organization [facility] Address [address] [place] [address] Care Team Providers Name Role Phone Anthony Carpenter APRN C.N.P., M.S.N. Primary Care Provider + Reason for Visit Reason Comments Suture / Staple Removal Encounter Details Date Type Department Care Team Description 11/02/2021 - Emergency [facility] Encounter For Removal Of [address] Sutures (Primary Dx) [place] [address] Social History Tobacco Use Types Packs/Day [...] or relatives? How often do you attend judaism or Patient refused 2020 denominational services? Do you belong to any clubs or No 07/17/2021 organizations such as judaism groups, unions, fraternal or athletic groups, or [...] as of this encounter Visit Diagnoses Diagnosis Encounter For Removal Of Sutures - Prima ry documented in this encounter Additional Health Concerns Assessment Noted Time PHQ-9 Depression Total Score: 16 12/29/2019 7:41 AM CD T documented as of this encounter Care Teams Die Grinder Relationship Specialty Start Date End Date Anthony Carpenter, ELA, C.N.P., PCP - General Family Medicine M.S.N. [address] [phone] documented as of this encounter
--- OUTSIDE RECORDS SUMMARY | 2022-08-19 06:49 | XMS_ITS | Encounter Summary ---
:1975 Author Organization [facility] Address [address] [place] [address] Care Team Providers Name Role Phone Anthony Carpenter APRN C.N.P., M.S.N. Primary Care Provider + Reason for Visit Reason Comments Back Pain Encounter Details Date Type Department Care Team Description 01/22/2022 Emergency [facility] Pain Low Back Acute (Primary Dx); [address] Sciatica Right; [place] [address] Numbness Lower Extremity [phone] Social History Tobacco Use Types Packs/Day Years [...] you attend adventism or Patient refused 2020 presybeterian services? Do [...] 1 tablet (10 mg 60 tablet 0 10/29/2021 02/05/2022 mine (AdderalL) 10 mg total) by mouth 2 tablet (two) times a day. ibuprofen (ADVIL,MOTRIN) Take 200 mg by mouth 0 03/14/2022 200 mg tablet every 6 (six) hours as needed for pain. lidocaine (LIDODERM) 5 % Place 1 patch on the 30 patch 0 1 05/08/2022 skin daily. Apply to abdominal wall. naproxen sodium Take 220 mg by mouth 0 03/14/2022 (ALEVE/ANAPROX) 220 mg 2 (two) times a day tablet with meals. documented as of this encounter Plan of Treatment Not on filedocumented as of this encounter Visit Diagnoses Diagnosis Pain Low Back Acute - Primary Sciatica Right Numbness Lower Extremity documented in this encounter Additional Health Concerns Assessment Noted Time PHQ-9 Depression Total Score: 11 01/02/2022 12:02 PM C DT documented as of this encounter Care Teams Cloud Software Engineer Relationship Specialty Start Date End Date Anthony Carpenter APRN, C.N.P., PCP - General Family Medicine M.S.N. [address] [phone] documented as of this encounter
--- OUTSIDE RECORDS SUMMARY | 2022-08-19 06:50 | XMS_ITS | Encounter Summary ---
:1975 Author Organization [facility] Address [address] [place] [address] Care Team Providers Name Role Phone Anthony Carpenter APRN C.N.PPatricia, M.S.N. Primary Care Provider + Encounter Details Date Type Department Care Team Description 08/27/2021 Clinical Communication Department of [facility] nAthony Carpenter, Medicine, [place] ELA, C.N.PPatricia, Clinic, [facility] [address] [place] [phone] Social History Tobacco Use Types Packs/Day Years [...] or relatives? How often do you attend mormon or Patient refused 2020 worship services? Do you belong to any clubs or No 07/17/2021 organizations such as mormon groups, unions, fraternal or athletic groups, or [...] to pay for the very basics like [place] hat hard 07/17/2021 food, housing, medical care, [...] encounter Miscellaneous Notes Telephone Encounter - Hallie Hdz L.P.N. - 08/28/2021 1:35 PM BUS GIRL Left detailed message for patient on message from Anthony Carpenter. GIRL Telephone Encounter - Anthony Carpenter APRN C.N.P., M.S.N. - 08/28/2021 11:11 AM CST Prescription for diclofenac sent. He may use this with Tylenol but nothing else. GIRL Telephone Encounter - Florinda Flynn L.P.N. - 08/27/2021 1:59 PM BUS GIRL Not sure if you would want to see him first for follow up from [facility] for hip pain before sending something in for him? Thank you GIRL Telephone Encounter - Brenda Potter - 08/27/2021 1:07 PM CST Reason for Communication: Patient called he took a fall down stairs and was seen at the [facility] - he said his hip was out of place and he is in a lot of pain and having a hard time sleeping - he is wondering if you might prescribe some kind of pain medication for him as [facility] will not prescribe pain medication - Please call him back at Current Can Nursing/Provider leave a detailed message?: yes Did the patient refuse triage through Nurse line? (for symptom based concerns): na Action Needed: Wants to know if you would call in a pain medication - [facility] in [place] is where he would like something sent Name of Medication (if relevant): pain medication Please send all scheduling replies to scheduling pool. GIRL documented in this encounter Plan of Treatment Not on filedocumented as of this encounter Visit Diagnoses Not on filedocumented in this encounter Additional Health Concerns Assessment Noted Time PHQ-9 Depression Total Score: 16 12/29/2019 7:41 AM CD T documented as of this encounter Care Teams Grain Inspector Relationship Specialty Start Date End Date Anthony Carpenter, ELA, C.N.P., PCP - General Family Medicine M.S.N. [address] [place] [phone] documented as of this encounter
--- OUTSIDE RECORDS SUMMARY | 2022-08-19 06:50 | XMS_ITS | Encounter Summary ---
:1975 Author Organization [facility] Address [address] [place] [address] Care Team Providers Name Role Phone Anthony Carpenter APRN C.N.P., M.S.N. Primary Care Provider + Encounter Details Date Type Department Care Team Description 07/17/2021 Hospital Encounter Department of Anthony Carpenter on Deficit With Laboratory Medicine ELA Zuñiga, Hyperact ivity Disorder in [place] C.N.PKempner, [place] M.S.N. [address] [facility] [address] [place], [place] [phone] Social History Tobacco Use Types Packs/Day [...] you attend uatsdin or Patient refused 2020 pentecostalism services? Do [...] to pay for the very basics like [place] hat hard 07/17/2021 food, housing, medical care, [...] needed for wheezing or shortness of breath. predniSONE (DELTASONE) 20 Take 20 mg by 0 021 07/26/2021 mg tablet mouth. cyclobenzaprine Take 1 tablet (5 mg 15 tablet 0 12/24/2020 08/12/2021 (FLEXERIL) 5 mg total) by mouth at tabletIndications: Pain bedtime as needed Neck, Pain Elbow Left, for muscle spasms. Pain Ankle Right dextroamphetamine-ampheta Take 1 tablet (10 60 tablet 0 07/26/2021 mine (ADDERALL) 10 mg mg total) by mouth tablet 2 (two) times a day. oxyCODONE-acetaminophen Take 1 tablet by 12 tablet 0 202008/28/2021 (PERCOCET) 5-325 mg per mouth every 6 (six) tabletIndications: Acute hours as needed for Pain moderate pain or score 4-6 of 10 Indication: acute pain. Do not exceed 8 tablets per day. pantoprazole (PROTONIX) Take 1 tablet (40 180 tablet 3 07/1701/02/2022 40 mg EC tablet mg total) by mouth 2 (two) times a day before breakfast and dinner. sucralfate (CARAFATE) 1 Take 1 g by mouth. 0 01/202108/12/2021 gram tablet documented as of this encounter Plan of Treatment Not on filedocumented as of this encounter Procedures Procedure Name Priority Date/Time Associated Diagnosis Comme nts CONTROLLED Routine 07/17/2021 11:46 Attention Deficit With R esults for this SUBSTANCE AM CDT Hyperactivity Disorder proce dure are in MONITORING, U the results section. documented in this encounter Results (ABNORMAL) Controlled Substance Monitoring Panel, Urine (07/17/2021 11:46 AM CDT) 3D Biomatrix Method Time Signature List patient's Not provided 07/17/2021 [facility] current 9:47 PM CDT medications Comment: ----ADDITIONAL INFORMATION---- Accuracy and completeness of declared me dications on reports solely dependent on information submitted by cl ient. Creatinine, Random, U 286.9 mg/dL 07/18/2021 8:45 AM CDT [facility] Specific [place] 1.022 07/18/2021 8:45 AM CDT [facility] pH 5.8 07/18/2021 8:45 AM CDT [facility] Oxidants Negative Cutoff: 200 mg/L 07/18/2021 8:45 AM CDT [facility] Comment Normal 07/18/2021 8:45 AM CDT [facility] Barbiturates Negative Cutoff: 200 ng/mL 07/18/2021 8:45 AM CDT [facility] Cocaine Negative Cutoff: 150 ng/mL 07/18/2021 8:45 AM CDT [facility] Comment: This cocaine immunoassay targets benzoyl ecgonine the primary metabolite of cocaine. Tetrahydrocannabinol Negative Cutoff: 50 ng/mL 07/18/2021 8 :45 AM CDT [facility] Comment: This immunoassay targets delta-9 tetrahy drocannabinol carboxylic acid (THC-COOH), a metabolite of delta-9 tetr ahydrocannabinol the main psychoactive ingredient of marijuana. ----ADDITIONAL INFORMATION---- This report is intended for use in clini paty monitoring or management of patients. ??It is not intended for use i n employment-related testing. Codeine Not Detected Cutoff: 25 ng/mL 07/19/2021 10:53 AM CDT [facility] Comment: Tylenol 3 Xdipyfc-0-ayfd-glucuronide Not Detected Cutoff: 100 ng/mL 07/19/2021 10:53 AM [facility] CDT Comment: Metabolite of codeine Morphine Not Detected Cutoff: 25 ng/mL 07/19/2021 10:53 AM CDT [facility] Comment: Sharon Licea, MS Contin; Also a minor metabolite (10%) of codeine and can be seen in low concentrations (<2,000 ng /mL) with poppy seed ingestion. Bjpziyxr-9-isap-glucuronide Not Detected Cutoff: 100 10:53 AM [facility] ng/mL CDT Comment: Metabolite of morphine 6-monoacetylmorphine Not Detected Cutoff: 25 ng/mL 10:53 AM CDT [facility] Comment: Metabolite of heroin Hydrocodone Not Detected Cutoff: 25 ng/mL 07/19/2021 10:53 A M CDT [facility] Comment: Lortab, [place], Vicodin; Also a very reema r metabolite of codeine and impurity (<1%) of oxycodone. Norhydrocodone Not Detected Cutoff: 25 ng/mL 07/19/2021 10:5 3 AM CDT [facility] Comment: Metabolite of hydrocodone Dihydrocodeine Not Detected Cutoff: 25 ng/mL 07/19/2021 10:5 3 AM CDT [facility] Comment: Metabolite of hydrocodone Hydromorphone Present (A) Cutoff: 25 ng/mL 07/19/2021 10:53 AM CDT [facility] Comment: Dilaudid, Exalgo; Also a metabolite of h ydrocodone and a minor (<5%) metabolite of morphine. Ehjpzjdwarogg-0-xrzp-glucuronide Present (A) Cutoff: 100 05/2021 10:53 [facility] ng/mL AM CDT Comment: Metabolite of hydromorphone Oxycodone Present (A) Cutoff: 25 ng/mL 07/19/2021 10:53 AM C DT [facility] Comment: Endocet, Percocet, Oxycontin Noroxycodone Present (A) Cutoff: 25 ng/mL 07/19/2021 10:53 A M CDT [facility] Comment: Metabolite of oxycodone Oxymorphone Not Detected Cutoff: 25 ng/mL 07/19/2021 10:53 A M CDT [facility] Comment: Numorphan, Opana; Also a metabo lite of oxycodone. Jcboolrxdce-7-ygil-glucuronide Present (A) Cutoff: 100 07/19 10:53 [facility] ng/mL AM CDT Comment: Metabolite of oxymorphone and/o r naloxone (nornaloxone) Noroxymorphone Present (A) Cutoff: 25 ng/mL 07/19/2021 10:53 AM CDT [facility] Comment: Metabolite of oxymorphone and/o r naloxone (nornaloxone) Fentanyl Not Detected Cutoff: 2 ng/mL 07/19/2021 10:53 AM C DT [facility] Comment: Actiq, Duragesic, Fentora Norfentanyl Not Detected Cutoff: 2 ng/mL 07/19/2021 10:53 AM CDT [facility] Comment: Metabolite of fentanyl Meperidine Not Detected Cutoff: 25 ng/mL 07/19/2021 10:53 AM CDT [facility] Comment: Demerol Normeperidine Not Detected Cutoff: 25 ng/mL 07/19/2021 10:53 AM CDT [facility] Comment: Metabolite of meperidine Naloxone Not Detected Cutoff: 25 ng/mL 07/19/2021 10:53 AM CDT [facility] Comment: Narcan Ltxoadbb-8-munr-glucuronide Not Detected Cutoff: 100 021 10:53 AM [facility] ng/mL CDT Comment: Metabolite of naloxone Methadone Not Detected Cutoff: 25 ng/mL 07/19/2021 10:53 AM CDT [facility] Comment: Dolophine EDDP Not Detected Cutoff: 25 ng/mL 07/19/2021 10:53 AM CDT [facility] Comment: Metabolite of methadone Propoxyphene Not Detected Cutoff: 25 ng/mL 07/19/2021 10:53 AM CDT [facility] Comment: Darvon, Darvocet Norpropoxyphene Not Detected Cutoff: 25 ng/mL 07/19/2021 10: 53 AM CDT [facility] Comment: Metabolite of propoxyphene Tramadol Not Detected Cutoff: 25 ng/mL 07/19/2021 10:53 AM CDT [facility] Comment: Tradol, Ultram, Ultracet O-desmethyltramadol Not Detected Cutoff: 25 ng/mL 07/19/2021 10:53 AM CDT [facility] Comment: Metabolite of tramadol Tapentadol Not Detected Cutoff: 25 ng/mL 07/19/2021 10:53 AM CDT [facility] Comment: Nucynta N-desmethyltapentadol Not Detected Cutoff: 50 ng/mL 2020 10:53 AM CDT [facility] Comment: Metabolite of tapentadol Beosqcngaf-uefw-oazoivrecuw Not Detected Cutoff: 100 021 10:53 AM [facility] ng/mL CDT Comment: Metabolite of tapentadol Buprenorphine Not Detected Cutoff: 5 ng/mL 07/19/2021 10:53 AM CDT [facility] Comment: Buprenex, Suboxone Norbuprenorphine Not Detected Cutoff: 5 ng/mL 07/19/2021 10: 53 AM CDT [facility] Comment: Metabolite of buprenorphine Norbuprenorphine Not Detected Cutoff: 20 ng/mL 07/19/2021 10 :53 AM [facility] glucuronide CDT Comment: Metabolite of buprenorphine Opioid Test detected the presence of hydromorphone and one of its metabolites 07/19/2021 [facility] Interpretation (ucrwhdsltdmlw-8-sudc-glucur onide). Suspect use of hydromorphone within the 10:53 AM CDT past three days. Test detected the presence of oxycodone and several metaboli saud (noroxycodone, noroxymorphone, and dlgtowgtqgx-0-mdno-gluc uronide). Suspect use of oxycodone and/or oxymorphone within the past three da ys. Comment: ----ADDITIONAL INFORMATION---- This test was developed and its performa nce characteristics determined by [facility] in a manner consistent with CLIA requirements. This test has not been cleared or approved by the U.[place]. Ml d and Drug Administration. Alprazolam Not Detected Cutoff: 10 ng/mL 07/19/2021 7:35 AM CDT [facility] Comment: Xanax Alpha-Hydroxyalprazolam Not Detected Cutoff: 10 ng/mL 05/2021 7:35 AM CDT [facility] Comment: Metabolite of Alprazolam Alpha-Hydroxyalprazolam Not Detected Cutoff: 50 07/19/2021 7 :35 [facility] Glucuronide ng/mL AM CDT Comment: Metabolite of Alprazolam Chlordiazepoxide Not Detected Cutoff: 10 ng/mL 07/19/2021 7: 35 AM CDT [facility] Comment: Librium Clobazam Not Detected Cutoff: 10 ng/mL 07/19/2021 7:35 AM C DT [facility] Comment: Yulia Onkwasi N-Desmethylclobazam Not Detected Cutoff: 200 ng/mL 7:35 AM CDT [facility] Comment: Metabolite of Clobazam Clonazepam Not Detected Cutoff: 10 ng/mL 07/19/2021 7:35 AM CDT [facility] Comment: Klonopin, Rivotril 7-aminoclonazepam Not Detected Cutoff: 10 ng/mL 07/19/2021 7 :35 AM CDT [facility] Comment: Metabolite of Clonazepam Diazepam Not Detected Cutoff: 10 ng/mL 07/19/2021 7:35 AM C DT [facility] Comment: Valium Nordiazepam Not Detected Cutoff: 10 ng/mL 07/19/2021 7:35 AM CDT [facility] Comment: Metabolite of Chlordiazepoxide, Diazepam, or Prazepam. Flunitrazepam Not Detected Cutoff: 10 ng/mL 07/19/2021 7:35 AM CDT [facility] Comment: Rohypnol 7-aminoflunitrazepam Not Detected Cutoff: 10 ng/mL 7:35 AM CDT [facility] Comment: Metabolite of Flunitrazepam Flurazepam Not Detected Cutoff: 10 ng/mL 07/19/2021 7:35 AM CDT [facility] Comment: Dalmane 2-Hydroxy Ethyl Not Detected Cutoff: 10 ng/mL 07/19/2021 7:3 5 AM CDT [facility] Flurazepam Comment: Metabolite of Flurazepam Lorazepam Not Detected Cutoff: 10 ng/mL 07/19/2021 7:35 AM C DT [facility] Comment: Ativan Lorazepam Glucuronide Not Detected Cutoff: 50 ng/mL 2020 7:35 AM CDT [facility] Comment: Metabolite of Lorazepam Midazolam Not Detected Cutoff: 10 ng/mL 07/19/2021 7:35 AM C DT [facility] Comment: Versed Alpha-Hydroxy Midazolam Not Detected Cutoff: 10 ng/mL 05/2021 7:35 AM CDT [facility] Comment: Metabolite of Midazolam Oxazepam Not Detected Cutoff: 10 ng/mL 07/19/2021 7:35 AM C DT [facility] Comment: Serax; Also a metabolite of Chl ordiazepoxide, Diazepam, or Temazepam. Oxazepam Glucuronide Not Detected Cutoff: 50 ng/mL 7:35 AM CDT [facility] Comment: Metabolite of Oxazepam Prazepam Not Detected Cutoff: 10 ng/mL 07/19/2021 7:35 AM C DT [facility] Comment: Centrax Temazepam Not Detected Cutoff: 10 ng/mL 07/19/2021 7:35 AM C DT [facility] Comment: Restoril; Also a metabolite of Diazepam. Temazepam Glucuronide Not Detected Cutoff: 50 ng/mL 2020 7:35 AM CDT [facility] Comment: Metabolite of Temazepam Triazolam Not Detected Cutoff: 10 ng/mL 07/19/2021 7:35 AM C DT [facility] Comment: Halcion Alpha-Hydroxy Triazolam Not Detected Cutoff: 10 ng/mL 05/2021 7:35 AM CDT [facility] Comment: Metabolite of Triazolam Zolpidem Not Detected Cutoff: 10 ng/mL 07/19/2021 7:35 AM C DT [facility] Comment: Ambien Zolpidem Oketpr-8-Wowpbstnab Not Detected Cutoff: 10 ng/mL 07/19/2021 7:35 AM [facility] acid CDT Comment: Metabolite of Zolpidem Benzodiazepine No benzodiazepines were dete cted. The absence of expected drug(s) and/or drug 07/19/2021 7:35 AM [facility] Interpretation metabolite(s) may indicate n on-compliance, altered pharmacokinetics, CDT inappropriate timing of specimen collection relative t o drug administration, diluted/adulterated urine, or limitations of testing. Comment: ----ADDITIONAL INFORMATION---- This test was developed and its performa nce characteristics determined by [facility] in a manner consistent with CLIA requirements. This test has not been cleared or approved by the U.[place]. Ml d and Drug Administration. Methamphetamine Not Detected Cutoff: 100 ng/mL 07/19/2021 9: 19 AM CDT [facility] Comment: Desoxyn Amphetamine Present (A) Cutoff: 100 ng/mL 07/19/2021 9:19 AM CDT [facility] Comment: Dyanavel XR, Adzenys ER, Adderall, Vyvan se; Also a metabolite of methamphetamine 3,4-methylenedioxymethamphetamine Not Detected Cutoff: 100 1 [facility] (MDMA) ng/mL 9:19 AM CDT 3,8-dhzaytwxhccxas-T-ethylamphetamine Not Detected Cutoff: 100 07/19/2021 [facility] (MDEA) ng/mL 9:19 AM CDT 3,4-methylenedioxyamphetamine (MDA) Not Detected Cutoff: 100 07/19/2021 [facility] ng/mL 9:19 AM CDT Comment: Also a metabolite of MDMA and/o r MDEA Ephedrine Not Detected Cutoff: 100 ng/mL 07/19/2021 9:19 AM CDT [facility] Pseudoephedrine Not Detected Cutoff: 100 ng/mL 07/19/2021 9: 19 AM CDT [facility] Comment: Sudafed Phentermine Not Detected Cutoff: 100 ng/mL 07/19/2021 9:19 A M CDT [facility] Comment: Adipex-P, Lomaira, Qsymia Phencyclidine (PCP) Not Detected Cutoff: 20 ng/mL 07/19/2021 9:19 AM CDT [facility] Methylphenidate Not Detected Cutoff: 20 ng/mL 07/19/2021 9:1 9 AM CDT [facility] Comment: Ritalin, Concerta Ritalinic acid Not Detected Cutoff: 100 ng/mL 07/19/2021 9:1 9 AM CDT [facility] Comment: Metabolite of methylphenidate Stimulant Interpretation Test detected the presence o f amphetamine. Suspect use of amphetamine within 07/19/2021 9:19 AM CDT [facility] the past three days. Specimen Anatomical Collection Method Collection Time Receive d Time (Source) Location / / Volume Laterality Urine (Urine, 07/17/2021 11:46 07/17/2021 9:47 Clean Catch) AM CDT PM CDT Anthony Carpenter APRN, C.N.P., M.S.N. LAB URINE ORDERABL ES Performing Organization Address City/State/ZIP Code Phon e Number [facility] [address] [place], [place] [address] [place] [address] [place] [address] Laboratory Medicine and Pathology [address] [place] documented in this encounter Visit Diagnoses Diagnosis Attention Deficit With Hyperactivity Dis order documented in this encounter Additional Health Concerns Assessment Noted Time PHQ-9 Depression Total Score: 16 12/29/2019 7:41 AM CD T documented as of this encounter Care Teams Treasury Director Relationship Specialty Start Date End Date Anthony Carpenter APRN, C.N.P., PCP - General Family Medicine M.S.N. [address] [phone] documented as of this encounter
--- OUTSIDE RECORDS SUMMARY | 2022-08-19 06:50 | XMS_ITS | Encounter Summary ---
:1975 Author Organization [facility] Address [address] [place] [address] Care Team Providers Name Role Phone Anthony Carpenter APRN C.N.PPatricia, M.S.N. Primary Care Provider + Encounter Details Date Type Department Care Team Description 07/16/2021 Clinical Communication Department of [facility] Anthony Carpenter, Medicine, [place] ELA, C.N.PPatricia, Clinic, in [facility] [address] [place] [phone] Social History Tobacco Use Types Packs/Day Years [...] you attend yarsanism or Patient refused 2020 hoahaoism services? Do you belong to any clubs [...] to pay for the very basics like [employer] hat hard 07/17/2021 food, housing, medical care, [...] What is the highest level of school Associate degree: jacki campo, 06/29/2019 you have completed or the highest technical, or vocational p renard degree you have received? Sex Assigned at Date Recorded Not on file documented as of this encounter Miscellaneous Notes Telephone Encounter - Olga Lockhart - 07/24/2021 8:12 AM CDT Patient saw Anthony Carpenter on 07/17/21 for his shoulder pain and has been out of work since that date and was wondering if he can get a note for work. His phone number is [phone]. Please call patient. Telephone Encounter - Hadley Lopez - 07/16/2021 12:44 PM CDT Reason for Communication: Patient called in. He has an ER f/up appt for shoulder issues with Anthony Carpenter tomorrow, 07/17, but just got out of the ER again, now for possible colitis issues. Patient is in a lot of pain and would like to know if Anthony NandiniPatricia can prescribe anything for him to take yet today/tonight before being seen tomorrow. Current Can Nursing/Provider leave a detailed message: no Did the patient refuse triage through Nurse line? (for symptom based concerns): N/a Action Needed: Please call patient back. Name of Medication (if relevant): Pain medication documented in this encounter Plan of Treatment Not on filedocumented as of this encounter Visit Diagnoses Not on filedocumented in this encounter Additional Health Concerns Infection Onset Date Last Indicated Resolved Time COVID19 Pending 07/25/2021 07/26/2021 07/27/2021 3:16 AM CDT Assessment Noted Time PHQ-9 Depression Total Score: 12/29/2019 7:41 AM CD T documented as of this encounter Care Teams Open Hearth Helper Relationship Specialty Start Date End Date Anthony Carpenter, ELA, C.N.P., PCP - General Family Medicine M.S.N. [address] [phone] documented as of this encounter
--- OUTSIDE RECORDS SUMMARY | 2022-08-19 06:50 | XMS_ITS | Encounter Summary ---
:1975 Author Organization [facility] Address [address] [place] [address] Care Team Providers Name Role Phone Anthony Carpenter APRN, C.N.P., M.S.N. Primary Care Provider + Reason for Visit Reason Comments Abdominal Pain Encounter Details Date Type Department Care Team Description 08/12/2021 Emergency [facility] Row, Allegra E, Abdomi nal Pain (Primary Emergency Department ELA, C.N.P., Dx) [address] [facility] M.S.N. [place], [place] [address] [facility] [phone] [place], [place] [phone] Social History Tobacco Use Types Packs/Day Years [...] you attend anabaptist or Patient refused 2020 rastafari services? Do [...] to pay for the very basics like [employer] hat hard 07/17/2021 food, housing, medical care, [...] Sign Reading Time Taken Comments Blood Pressure 147/85 08/12/2021 11:45 AM CDT Pulse 101 08/12/2021 11:45 AM CDT Temperature 36.9 ??C (98.4 ??F) 08/12/2021 10:15 AM CDT Respiratory Rate 16 08/12/2021 11:45 AM CDT Oxygen Saturation 97% 08/12/2021 11:45 AM CDT Inhaled Oxygen Concentration - - Weight 64.1 kg (141 lb 5 oz) 08/12/2021 10:13 AM CDT Height 163.1 cm (5' 4.21) 08/12/2021 10:13 AM CDT Body Mass Index 24.1 08/12/2021 10:13 AM CDT documented in this encounter Discharge Instructions AttachmentsThe following attachments cannot be sent through Care Everywhere. Abdominal Pain Adult [id number] (Maltese)documented in this encounter Medications at Time of Discharge Medication Sig Dispensed Refills Start Date End Date acetaminophen Take 1,000 mg by 0 (for_TYLENOL) 500 mg mouth. tablet albuterol inhaler Inhale 2 puffs every 3 Inhaler 3 08/09/20 20 4 (four) hours as needed for wheezing or shortness of breath. dextroamphetamine-amphet Take 1 tablet (10 mg 60 tablet 0 1 08/30/2021 amine (ADDERALL) 10 mg total) by mouth 2 tablet (two) times a day. lidocaine (LIDODERM) 5 % Place 1 patch on the 30 patch 0 1 05/08/2022 skin daily. Apply to abdominal wall. LORazepam (ATIVAN) 0.5 0 07/31/2021 mg tablet oxyCODONE-acetaminophen Take 1 tablet by 12 tablet 0 202008/28/2021 (PERCOCET) 5-325 mg per mouth every 6 (six) tabletIndications: Acute hours as needed for Pain moderate pain or score 4-6 of 10 Indication: acute pain. Do not exceed 8 tablets per day. pantoprazole (PROTONIX) Take 1 tablet (40 mg 180 tablet 3 01/02/2022 40 mg EC tablet total) by mouth 2 (two) times a day before breakfast and dinner. documented as of this encounter ED Notes Medina Sosa R.N., CCRN - 08/12/2021 11:48 AM CDT After administration of droperidol and starting of IV fluid, patient was ready to leave. He didn't want to stay for the US of gallbladder or appendix. Discharge paperwork was given with instructions tofollow-up with his primary palliative care specialist to work up this abdominal pain more. Medina Sosa R.N., R[place] 08/12/21 1149 Janntete Zacarias M.D., M.S. - 08/12/2021 11:40 AM CDT I have personally seen and examined this patient. I have fully participated in the care of this patient. I have reviewed all clinical information including history, physical exam, orders, and plan. I agree with the note of the NUTRITION AIDES TEACHER/PA. 45-year-old man who presents with belly pain. On my history or exam, there is no evidence of surgical emergency or vascular pathology. The plan is to check blood work which may indicate advanced imaging such as CT or ultrasound. Patient has had this belly pain evaluated quite a few times this past summer and has had imaging studies which have all been reassuring. We will also relieve the patient's pain with IV medication. The patient understands the plan at this time. Patient is feeling much better after the droperidol. He is refusing the ultrasound. Patient is very well-appearing with normal vital signs. He will be discharged. Final Diagnoses: as of 08/12/21 1141 Abdominal Pain Jannette Zacarias M.D., M.S. 08/14/21 0625 Allegra Hoang APRN, C.N.P., M.S.N. - 08/12/2021 10:30 AM CDT SUBJECTIVE CHIEF COMPLAINT/REASON FOR VISIT Abdominal Pain HISTORY OF PRESENT ILLNESS The patient is a 45-year-old male past medical history including ADHD, anxiety who presents today with abdominal pain. This is the patient seventh emergency department visit for abdominal pain since March 25, 2021. He istypically evaluated and [place]. He has had six CT scans of his abdomen since that time as well as an ultrasound of his scrotum, gallbladder none of which have shown acute abnormality. Six narcotic prescriptions since March 2021. Endoscopy 04/08/21 Impressions/Post-Op Diagnosis: ?- Normal examined duodenum. ?- Erosive gastropathy with stigmata of recent bleeding. Biopsied. ?- Z-line regular, 39 cm from the incisors. ?- The examination was otherwise normal. Colonoscopy 07/29/21 Findings: ?The perianal and digital rectal examinations were normal. ?The sigmoid colon was significantly tortuous. ?The exam was otherwise without abnormality on direct and retroflexion ?views. Impressions/Post-Op Diagnosis: ?- Tortuous colon. ?- The examination was otherwise normal on direct and retroflexion views. ?- No specimens collected. The patient states that he has had onset of abdominal pain since 8:00 a.m. this morning that is overall worsening. He states he tried to eat breakfast, however this made his pain worse. He has been nauseated since and threw up one time. He wonders if it is his gallbladder or appendix, but reports thatthe pain also wraps across his lower abdomen. He states his urine is darker than normal with some burning urination. He has been taking Tylenol without significant change in his discomfort. He states that in his discomfort is stabbing and burning in nature. He denies previous abdominal surgeries. I asked him if his pain was similar to his previous abdominal pain visits and he reports that today is dif ferent, he cannot explain how. REVIEW OF SYSTEMS Constitutional: Negative for chills and fever. HENT: Negative for trouble swallowing. Eyes: Negative for pain. Respiratory: Negative for shortness of breath. Cardiovascular: Negative for chest pain. Gastrointestinal: Positive for abdominal pain, nausea and vomiting. Genitourinary: Positive for dysuria. Musculoskeletal: Negative for extremity pain. Skin: Negative for rash. Neurological: Negative for headaches. Hematological: Does not bruise/bleed easily. Psychiatric/Behavioral: Negative for confusion. OBJECTIVE Initial Vitals Temperature Pulse Rate Heart Rate Resp Rate Blood Pressure SpO2 08/12/21 1015 08/12/21 1015 -- 08/12/21 1145 08/12/21 1015 08/12/21 1015 36.9 ??C 89 16 (!) 159/101 99 % Pain Score -- PHYSICAL EXAMINATION Constitutional: Nursing note and vitals reviewed. He is cooperative. HENT: Head: Normocephalic and atraumatic. Mouth/Throat: Oropharynx is clear and moist. Mucous membranes are moist. Eyes: Conjunctivae are normal. Cardiovascular: Regular rhythm, S1 normal and S2 normal. Capillary refill: takes less than 3 seconds, Pulmonary/Chest: Effort normal and breath sounds normal. No respiratory distress. Abdominal: Soft. There is generalized abdominal tenderness (no guarding when distracted). Musculoskeletal: General: No deformity. Cervical back: Normal range of motion. Neurological: Alert and oriented to person, place, and time. Skin: Skin is warm, dry and normal color. Psychiatric: He has a normal mood and affect. ASSESSMENT/PLAN IMPRESSION AND PLAN The patient is a 45-year-old male past medical history including ADHD, anxiety who presents today with abdominal pain. The patient presents with complaints of abdominal pain that goes around the edge of his abdomen. He states he wonders if it is his gallbladder or his appendix. He has had worsening of his discomfort since it started. He has had some associated nausea and emesis. He states that this pain is different than his previous episodes for which he has been thoroughly evaluated. On exam he is resting comfortably in the bed. No acute distress. Blood pressure mildly hypertensive, but the remainder of his vital signs are reassuring. He has diffuse abdominal tenderness on palpation. There is no guarding when he is distracted. Mucous membranes are moist. We will plan to obtain abdominal pain labs and ultrasound his gallbladder and appendix. Given that I have a low suspicion for an acute intra-abdominal process I do not think it is appropriate to get another CT of his abdomen and pelvis at this time. If his ultrasounds are abnormal or he has a significant derangement of his laboratory testing I will reassess. We will plan to give IV fluids, droperidol, Benadryl for his discomfort. We will not give him narcotics for abdominal pain without a known source at this time. Disposition pending clinical course and evaluation. The patient verbalizes understanding and agreement with the plan, questions answered. DIFFERENTIAL DIAGNOSIS Gastritis, cholecystitis, symptomatic cholelithiasis, pancreatitis, appendicitis, UTI, ureteral stone I reviewed previous medical records including documentation from previous visits, radiology images/report and lab results. I personally reviewed the lab result(s) and my interpretation is documented in ED Course. ED Course as of 08/12/21 1357 Mon Aug 12, 2021 1129 Platelet Count: 262 1129 White Blood Cell Count: 4.2 1129 Neutrophils: 2.61 1129 Hemoglobin: 15.2 1148 Patient had improvement in his symptoms after droperidol and has decided he would like to discharge home. CBC is only test resulted at this time, but is reassuring without leukocytosis or neutrophilia. Low suspicion for other life threatening sources of abdominal pain. The patient is instructed to follow up with their primary care provider after being seen in the emergency department. They are instructed to return to the emergency department if symptoms worsen or change.The patient verbalizes understanding and agreement with the plan, questions answered. 1201 Lactate: 1.7 1356 Potassium, P: 4.9 1357 Sodium, P: 136 1357 Creatinine, P: 0.86 1357 Glucose, P: 103 1357 Lipase, S: 19 1357 Bilirubin, Total, S: 0.3 1357 Aspartate Aminotransferase (AST), S: 23 1357 Alanine Aminotransferase (ALT), S: 21 Final Diagnoses: as of 08/12/21 1357 Abdominal Pain Allegra Hoang APRN, C.N.P., M.S.N. 08/12/21 1357 Tami Sotelo R.N. - 08/12/2021 10:18 AM CDT Patient presents with nausea and generalized abdominal pain that started suddenly this morning. Patient seen on 07/17 and 08/01 in clinic and also [facility] ED regarding pain. Tami Sotelo R.N. 08/12/21 1024 documented in this encounter Plan of Treatment Not on filedocumented as of this encounter Procedures Procedure Name Priority Date/Time Associated Diagnosis Comme nts HEPATIC FUNCTION STAT 08/12/2021 11:17 AM Resu lts for this PANEL, S CDT procedure are i n the results section. CBC WITH STAT 08/12/2021 11:17 AM Results for this DIFFERENTIAL, B CDT procedure ar e in the results section. LIPASE, S/P STAT 08/12/2021 11:17 AM Results for this CDT procedure are i n the results section. LACTATE, B/P STAT 08/12/2021 11:17 AM Results for this CDT procedure are i n the results section. BASIC METABOLIC STAT 08/12/2021 11:17 AM Resul ts for this PANEL, S/P CDT procedure are i n the results section. documented in this encounter Results Lipase (08/12/2021 11:17 AM CDT) P athologist Signature Lipase, S 19 13 - 60 U/L 08/12/2021 1:01 DTL PM CDT Specimen Anatomical Collection Method Collection Time Receive d Time (Source) Location / / Volume Laterality Blood (Blood, 08/12/2021 11:17 08/12/2021 Venous) AM CDT 12:24 PM CDT Allegra Hoang APRN, C.N.P., M.S.N. LAB BLOOD ADD-ON Performing Organization Address City/State/[facility] Phon e Number [facility] - [address] [place] [address] Lactate (08/12/2021 11:17 AM CDT) P athologist Signature Lactate, P 1.7 0.5 - 2.2 08/12/2021 DTL mmol/L 12:05 PM CDT Specimen Anatomical Collection Method Collection Time Receive d Time (Source) Location / / Volume Laterality Blood (Blood, 08/12/2021 11:17 08/12/2021 Venous) AM CDT 11:36 AM CDT Allegra Hoang APRN, C.N.P., M.S.N. LAB BLOOD NON ADD-ON Performing Organization Address City/[facility] Phon e Number [facility] - [address] [place] [address] Hepatic Function Panel (08/12/2021 11:17 AM CDT) Patholo gist Method Time Signature Bilirubin, Total, S 0.3 <=1.2 08/12/2021 DTL mg/dL 1:01 PM CDT Bilirubin, Direct, S <0.2 0.0 - 0.3 08/12/2021 DTL mg/dL 1:01 PM CDT Aspartate 23 8 - 48 08/12/2021 DTL Aminotransferase U/L 1:01 PM CDT (AST), S Alanine 21 7 - 55 08/12/2021 DTL Aminotransferase U/L 1:01 PM CDT (ALT), S Alkaline 77 40 - 129 08/12/2021 DTL Phosphatase, S U/L 1:01 PM CDT Albumin, S 4.2 3.5 - 5.0 08/12/2021 DTL g/dL 1:01 PM CDT Protein, Total, S 6.7 6.3 - 7.9 08/12/2021 DTL g/dL 1:01 PM CDT Specimen Anatomical Collection Method Collection Time Receive d Time (Source) Location / / Volume Laterality Blood (Blood, 08/12/2021 11:17 08/12/2021 Venous) AM CDT 12:24 PM CDT Allegra Hoang APRN, C.N.P., M.S.N. LAB BLOOD ADD-ON Performing Organization Address City/State/ZIP Code Phon e Number [facility] - [address] [place], [place] [address] [place] [address] [facility] [address] [facility] Basic Metabolic Panel (08/12/2021 11:17 AM CDT) P athologist Signature Potassium, P 4.9 3.6 - 5.2 08/12/2021 DTL mmol/L 12:08 PM CDT Sodium, P 136 135 - 145 08/12/2021 DTL mmol/L 12:08 PM CDT Chloride, P 102 98 - 107 08/12/2021 DTL mmol/L 12:08 PM CDT Bicarbonate, P 25 22 - 29 08/12/2021 DTL mmol/L 12:08 PM CDT Anion Gap, P 9 7 - 15 08/12/2021 DTL 12:08 PM CDT BUN (Blood Urea 11 8 - 24 08/12/2021 DTL Nitrogen), P mg/dL 12:08 PM CDT Creatinine 0.86 0.74 - 08/12/2021 DTL 1.35 mg/dL 12:08 PM CDT eGFR-Black/Afric >90 >=60 08/12/2021 DTL an Chinese mL/min/BSA 12:08 PM CDT Comment: ----ADDITIONAL INFORMATION---- Estimated GFR calculated using the 2009 CKD_EPI creatinine equation. eGFR Non-Black/ >90 >=60 mL/min/BSA 08/12/2021 12:08 PM CDT DTL Comment: ----ADDITIONAL INFORMATION---- Estimated GFR calculated using the 2009 CKD_EPI creatinine equation. Calcium, Total, P 9.0 8.6 - 10.0 mg/dL 08/12/2021 12:0 8 PM CDT DTL Glucose, P 103 70 - 140 mg/dL 08/12/2021 12:08 PM CDT DTL Specimen Anatomical Collection Method Collection Time Receive d Time (Source) Location / / Volume Laterality Blood (Blood, 08/12/2021 11:17 08/12/2021 Venous) AM CDT 11:36 AM CDT Allegra Hoang APRN, C.N.P., M.S.N. LAB BLOOD ADD-ON Performing Organization Address City/State/ZIP Code Phon e Number [facility] - [address] [place], [place] [address] [place] [address] Laboratories-[facility] [address] [facility] CBC with Differential, Blood (08/12/2021 11:17 AM CDT) P athologist Signature Hemoglobin 15.2 13.2 - 08/12/2021 STMA 16.6 g/dL 11:28 AM CDT Hematocrit 43.6 38.3 - 08/12/2021 STMA 48.6 % 11:28 AM CDT Erythrocytes 4.79 4.35 - 08/12/2021 ST[facility] 5.65 11:28 AM CDT x10(12)/L MCV 91.0 78.2 - 08/12/2021 ST[facility] 97.9 fL 11:28 AM CDT RBC Distrib Width 12.1 11.8 - 08/12/2021 STMA 14.5 % 11:28 AM CDT Platelet Count 262 135 - 317 08/12/2021 STMA x10(9)/L 11:28 AM CDT Leukocytes 4.2 3.4 - 9.6 08/12/2021 STMA x10(9)/L 11:28 AM CDT Neutrophils 2.61 1.56 - 08/12/2021 STMA 6.45 11:28 AM CDT x10(9)/L Lymphocytes 1.15 0.95 - 08/12/2021 STMA 3.07 11:28 AM CDT x10(9)/L Monocytes 0.37 0.26 - 08/12/2021 STMA 0.81 11:28 AM CDT x10(9)/L Eosinophils <0.03 0.03 - 08/12/2021 STMA 0.48 11:28 AM CDT x10(9)/L Basophils <0.03 0.01 - 08/12/2021 STMA 0.08 11:28 AM CDT x10(9)/L Specimen Anatomical Collection Method Collection Time Receive d Time (Source) Location / / Volume Laterality Blood (Blood, 08/12/2021 11:17 08/12/2021 Venous) AM CDT 11:25 AM CDT Allegra Hoang APRN, C.N.P., M.S.N. LAB BLOOD ADD-ON Performing Organization Address City/State/ZIP Code Phon e Number [facility] - [address] [place], [place] [address] [place] [address] Laboratories-[facility] [address] documented in this encounter Visit Diagnoses Diagnosis Abdominal Pain - Primary documented in this encounter Administered Medications Inactive Administered Medications - up to 3 most recent administrations Medication Order MAR Action Action Date Dose Rate Site droperidoL injection 1.875 mg Given 08/12/2021 11:29 AM CDT 1.87 5 mg (INAPSINE) 1.875 mg, intravenous, Once, On Thu08/12/21 at 1051, For 1 dose NaCl 0.9 % bolus 1,000 mL New Bag 08/12/2021 11:31 AM CDT 1,000 mL 1000 mL/hr 1,000 mL, intravenous, at 1,000 mL/hr, Administer over 1 Hours, Once, On Thu08/12/21 at 1051, For 1 dose sodium chloride 0.9 % injection 10 mL 10 mL, intravenous, As needed, line care, Starting on Thu08/12/21 at 1048, Peripheral Intravenous Catheter and Rapid Infusion Cat heter, prior to blood sampling, post blood transfusion or post blood samplin g sodium chloride 0.9 % injection 3 mL 3 mL, intravenous, As needed, line care, Starting on Thu08/12/21 at 1048, Prior to and following infusion and between multi ple consecutive infusions: sodium chloride 0.9 % injection sodium chloride 0.9 % injection 3 mL 3 mL, intravenous, Every 12 hours scheduled, First dos e on Thu08/12/21 at 2100, Peripheral Intravenous Catheter and Rapi d Infusion Catheter, when no infusion to maintain patency documented in this encounter Active and Recently Administered Medications Times are shown in CDT. Scheduled Medication Order 08/10/2021 08/11/2021 08/12/2021 diphenhydrAMINE injection 12.5 mg (BENADRYL) 1150 (Not Given - Provider: Medina Sosa R.N., FRANCY - Reason: Other - Comment: patient states he is allergic to) 12.5 mg, intravenous, Once, On Thu08/12/21 at 1051, For 1 dose droperidoL injection 1.875 mg (INAPSINE) (COMPLETED) 1129 (Given - Provider: Medina Sosa R.N., [place]) 1.875 mg, intravenous, Once, On Thu08/12/21 at 1051, For 1 dose NaCl 0.9 % bolus 1,000 mL (COMPLETED) 1131 (New Bag - Provider: Medina Sosa R.N., FRANCY)1150 (Stopped - Provider: Medina Sosa R.N., CCRN - Comment: patient wanting ot leave) 1,000 mL, intravenous, at 1,000 mL/hr, A dminister over 1 Hours, Once, On Thu08/12/21 at 1051, For 1 dose sodium chloride 0.9 % injection 3 mL 3 mL, intravenous, Every 12 hours schedu led, First dose on Thu08/12/21 at 2100, Peripheral Intravenous Catheter and Rapid Infusion Catheter, when no infusion to maintain patency PRN Medication Order 08/10/2021 08/11/2021 08/12/2021 sodium chloride 0.9 % injection 10 mL 10 mL, intravenous, As needed, line care , Starting on Thu08/12/21 at 1048, Peripheral Intravenous Catheter and Rapid Infusion Catheter, prior to blood sampling, post blood transfusion or post blood sampling sodium chloride 0.9 % injection 3 mL 3 mL, intravenous, As needed, line care, Starting on Thu08/12/21 at 1048, Prior to and following infusion and between multiple consecutive infusions: sodium chloride 0.9 % injection documented in this encounter Additional Health Concerns Assessment Noted Time PHQ-9 Depression Total Score: 16 12/29/2019 7:41 AM CD T documented as of this encounter Care Teams Slat Basket Maker Helper Relationship Specialty Start Date End Date Anthony Carpenter, ELA, C.N.P., PCP - General Family Medicine M.S.N. [address] [place] [address] documented as of this encounter
--- OUTSIDE RECORDS SUMMARY | 2022-08-19 06:50 | XMS_ITS | Encounter Summary ---
:1975 Author Organization [facility] Address [address] [place] [address] Care Team Providers Name Role Phone Anthony Carpenter APRN C.N.Gabriel., M.S.N. Primary Care Provider + Encounter Details Date Type Department Care Team Description 07/05/2021 Hospital Encounter Department of Adrián Jackson Pain Shoulder Left Radiology in [address] [place] [address] [address] [address] [place], [place] [phone] (Work) [phone] Social History Tobacco Use Types Packs/Day Years [...] or relatives? How often do you attend hoahaoism or Patient refused 2020 sikhism services? Do you belong to any clubs or No 07/17/2021 organizations such as hoahaoism groups, unions, fraternal or athletic groups, or [...] to pay for the very basics like iodine hat hard 07/17/2021 food, housing, medical care, [...] needed for wheezing or shortness of breath. cyclobenzaprine (FLEXERIL) Take 1 tablet (5 mg 15 tablet 0 12/24/2020 08/12/2021 5 mg tabletIndications: total) by mouth at Pain Neck, Pain Elbow bedtime as needed Left, Pain Ankle Right for muscle spasms. dextroamphetamine-amphetam Take 1 tablet (10 60 tablet 0 07/26/2021 ine (ADDERALL) 10 mg mg total) by mouth tablet 2 (two) times a day. dextroamphetamine-amphetam Take 1 tablet (10 60 tablet 0 07/17/2021 ine (AdderalL) 10 mg mg total) by mouth tablet 2 (two) times a day. dextroamphetamine-amphetam Take 1 tablet (10 60 tablet 0 07/17/2021 ine (ADDERALL) 10 mg mg total) by mouth tablet 2 (two) times a day. hyoscyamine (LEVSIN) 0.125 Place 0.125 mg 0 03/2707/17/2021 mg SL tablet under the tongue. oxyCODONE-acetaminophen Take 1 tablet by 18 tablet 0 202007/17/2021 (PERCOCET) 5-325 mg per mouth every 4 tabletIndications: Acute (four) hours as Pain needed for severe pain or score 7-10 of 10 Indication: acute pain. pantoprazole (PROTONIX) 40 Take 40 mg twice 62 tablet 0 07/17/2021 mg EC tablet daily for 48 days. After 48 days may decrease to 40 mg once daily for 14 days then stop. documented as of this encounter Plan of Treatment Not on filedocumented as of this encounter Procedures Procedure Name Priority Date/Time Associated Comments Diagnosis DX SHOULDER LEFT RAD - Routine 07/05/2021 10:15 Pain Shoulder Resul ts for this 2+ VIEWS (most inpatients AM CDT Left procedure a re in and all the results outpatients) section. documented in this encounter Results DX Shoulder Left 2+ Views (07/05/2021 10:15 AM CDT) Anatomical Region Laterality Modality Upper Extremity, Shoulder, Musculoskeletal RST LOS, Left Digital Radiography Musculoskeletal ARZ LOS, Muskuloskeletal FLA LOS Specimen (Source) Anatomical Collection Method Collection Time Re ceived Time Location / / Volume Laterality 07/05/2021 10:33 AM CDT Impressions 07/05/2021 10:35 AM CDT Mild glenohumeral and AC joint arthritis. Irregularities involving the greater tuberosity may be postsurgic al. Changes of biceps tenodesis. Narrative 07/05/2021 10:35 AM CDT EXAM: ??DX SHOULDER LEFT 2+ VIEWS Procedure Note Vega Hardy M.D. - 07/05/2021Forma tting of this note might be different from the original. EXAM: DX SHOULDER LEFT 2+ VIEWS IMPRESSION: Mild glenohumeral and AC joint arthritis . Irregularities involving the greater tuberosity may be postsurgic al. Changes of biceps tenodesis. [facility] VERONICA documented in this encounter Visit Diagnoses Diagnosis Pain Shoulder Left documented in this encounter Additional Health Concerns Assessment Noted Time PHQ-9 Depression Total Score: 16 12/29/2019 7:41 AM CD T documented as of this encounter Care Teams Final Assembly Worker Relationship Specialty Start Date End Date Anthony Carpenter, ELA, C.N.P., PCP - General Family Medicine M.S.N. [address] [phone] documented as of this encounter
--- OUTSIDE RECORDS SUMMARY | 2022-08-19 06:50 | XMS_ITS | Encounter Summary ---
:1975 Author Organization [facility] Address [address] [place] [address] Care Team Providers Name Role Phone Anthony Carpenter APRN, C.N.PPatricia, M.S.N. Primary Care Provider + Reason for Visit Reason Comments Med Refill Encounter Details Date Type Department Care Team Description 07/26/2021 Refill Department of Family Medicine, Anthony Carpenter APRN, Med Refill [facility], in [place], C. N.Harsha, M.S.N. [place] [address] [address] [place] [address] [place] [address]0 [facility] [phone] Social History Tobacco Use Types Packs/Day Years [...] or relatives? How often do you attend holiness or Patient refused 2020 mormonism services? Do you belong to any clubs or No 07/17/2021 organizations such as holiness groups, unions, fraternal or athletic groups, or [...] this encounter Miscellaneous Notes Telephone Encounter - Ramón Farrell - 07/26/2021 1:09 PM CDT Nurse review: Unable to forward request to provider; Controllled Substance, CSA Primary Provider: Anthony Carpenter APRN, Caterina.N.P., M.S.N. Requested Prescriptions Pending Prescriptions Disp Refills ??? dextroamphetamine-amphetamine (ADDERALL) 10 mg tablet 60 tablet 0 Sig: Take 1 tablet (10 mg total) by mouth 2 (two) times a day. Pharmacy: [facility] Telephone Encounter - Rojas Chun - 07/26/2021 1:06 PM CDT Provider: Antohny Carpenter APRN, Caterina.N.P., M.S.N. Patient called for Refills. Additional info only if applies: Requested Prescriptions Pending Prescriptions Disp Refills ??? dextroamphetamine-amphetamine (ADDERALL) 10 mg tablet 60 tablet 0 Sig: Take 1 tablet (10 mg total) by mouth 2 (two) times a day. Pharmacy: [id number] - [place], [place] - [address] [facility] [phone] documented in this encounter Plan of Treatment Not on filedocumented as of this encounter Visit Diagnoses Not on filedocumented in this encounter Additional Health Concerns Infection Onset Date Last Indicated Resolved Time COVID19 Pending 07/25/2021 07/26/2021 07/27/2021 3:16 AM CDT Assessment Noted Time PHQ-9 Depression Total Score: 16 12/29/2019 7:41 AM CD T documented as of this encounter Care Teams Solar Panel Installation Supervisor Relationship Specialty Start Date End Date Anthony Carpenter, ELA, C.N.P., PCP - General Family Medicine M.S.N. [address] [phone] documented as of this encounter
--- OUTSIDE RECORDS SUMMARY | 2022-08-19 06:50 | XMS_ITS | Encounter Summary ---
:1975 Author Organization [facility] Address [address] [place] [address] Care Team Providers Name Role Phone Anthony Carpenter APRN C.N.P., M.S.N. Primary Care Provider + Reason for Visit Reason Comments Other right leg and ribs- fell eren n stairs yesterday, states he dislocated his right hip, badly bruised ribs, sta saud he has a deep bruise in his leg, reports swelling in leg Encounter Details Date Type Department Care Team Description 08/26/2021 Office Visit Department of [facility], Makenzie Weaver, Injur y Leg Subsequent Right (Primary Dx); MedicinePrimitivo P.A.-C. Injury Chest Wall Subsequent Clinic, in [place], [address] [place], [place] [address] [address] [place], [place] [phone] (Work) [phone] Social History Tobacco Use Types Packs/Day Years [...] or relatives? How often do you attend nondenominational or Patient refused 2020 mosque services? Do you belong to any clubs or No 07/17/2021 organizations such as nondenominational groups, unions, fraternal or athletic groups, or [...] Sign Reading Time Taken Comments Blood Pressure 139/97 08/26/2021 11:07 pt states he is in a AM DIVERSITY SPECIALIST lot of pain Pulse 101 08/26/2021 11:07 AM DIVERSITY SPECIALIST Temperature 37.1 ??C (98.8 ??F) 08/26/2021 11:07 AM DIVERSITY SPECIALIST Respiratory Rate - - Oxygen Saturation - - Inhaled Oxygen - - Concentration Weight - - Height - - Body Mass Index - - documented in this encounter Progress Notes Gilda Parra L.PPatriciaN. - 08/26/2021 5:00 PM CST The patient has been informed of other medical supply locations in the [facility]. The patient has been fitted with knee immobilizer. Instructions were given on the proper care and usage of the product with the patient verbalizing understanding of the instructions. [facility] return and warranty policy was given and reviewed with the patient. Gilda Parra L.P.N. RSITY SPECIALIST Makenzie Gurrola P.A.-C. - 08/26/2021 5:00 PM CST SUBJECTIVE CHIEF COMPLAINT/REASON FOR VISIT Other (right leg and ribs- fell down stairs yesterday, states he dislocated his right hip, badly bruised ribs, states he has a deep bruise in his leg, reports swelling in leg) HISTORY OF PRESENT ILLNESS Alon Jaimes is a 45 y.o. male who presents for evaluation of follow- up. The patient reports that last night he fell down about 7 stairs, tumbling down hitting various parts of his body. He called 911 and was given pain medication, transported to the ED. While there he had imaging of his femur, hip, ribs. This was all negative for fracture. Since then he has been taking tylenol and ibuprofenfor pain with limited relief. He was unable to go to work today. He states that he is in significantpain and is wondering if there is anything that can be done for his pain. He would like to go back to work as soon as possible but needs a work note for this. He has a knee brace on his right knee but w onders if he can get something to provide more support and compression. Patient Active Problem List Diagnosis ??? Anxiety ??? Attention Deficit With Hyperactivity Disorder ??? Pain Shoulder Left CURRENT MEDICATIONS Current Outpatient Medications Medication Sig Dispense Refill ??? acetaminophen (for_TYLENOL) 500 mg tablet Take 1,000 mg by mouth. ??? dextroamphetamine-amphetamine (ADDERALL) 10 mg tablet Take 1 tablet (10 mg total) by mouth 2 (two) times a day. 60 tablet 0 ??? pantoprazole (PROTONIX) 40 mg EC tablet Take 1 tablet (40 mg total) by mouth 2 (two) times a daybefore breakfast and dinner. 180 tablet 3 ??? albuterol inhaler Inhale 2 puffs every 4 (four) hours as needed for wheezing or shortness of breath. 3 Inhaler 3 ??? lidocaine (LIDODERM) 5 % Place 1 patch on the skin daily. Apply to abdominal wall. (Patient not taking: Reported on 08/12/2021 ) 30 patch 0 ??? LORazepam (ATIVAN) 0.5 mg tablet ??? oxyCODONE-acetaminophen (PERCOCET) 5-325 mg per tablet Take 1 tablet by mouth every 6 (six) hours as needed for moderate pain or score 4-6 of 10 Indication: acute pain. Do not exceed 8 tablets per day. (Patient not taking: Reported on 08/01/2021 ) 12 tablet 0 No current facility-administered medications for this visit. ALLERGIES/CONTRAINDICATIONS Allergies Allergen Reactions ??? Gadolinium-Containing Contrast Media Rash ??? Adhesive Tape-Silicones Other (see comments) ??? Ketorolac Other (see comments) and Itching Cerner listed no reactions ??? Latex Other (see comments) Cerner listed no reactions ??? Penicillins Other (see comments) and GI intolerance Cerner listed no reactions ??? Tramadol Rash OBJECTIVE BP (!) 139/97 Comment: pt states he is in a lot of pain Pulse 101 Temp 37.1 ??C PHYSICAL EXAMINATION General: No acute distress. Patient is polite and cooperative. Appropriately dressed and normal hygiene. Skin: No suspicious lesions or rash noted over exposed skin. HEENT: Normocephalic. Pupils equal, conjunctiva clear. Heart: Regular rate and rhythm. No murmurs, gallops or rubs noted. Lungs: Clear to auscultation bilaterally. No expiratory wheeze. No accessory muscles of respiration noted. Musculoskeletal: Sensation intact, with no cyanosis, clubbing or edema to extremities. Mental Health: Alert and oriented. Normal thought form and content. ASSESSMENT / PLAN #1 Injury Leg Subsequent Right #2 Injury Chest Wall Subsequent - Limited exam done at this time. The patient does appear to be in some pain. Reviewed imaging from last night's emergency department visit which is negative for fracture. We did place the patient in aknee immobilizer today which did help with his leg pain. Discussed toradol for his pain, but he has an allergy to this. - Recommend alternating tylenol with ibuprofen on a regular basis for the next couple of days. He should apply ice as needed. - He should present to the ED with any red flag symptoms, otherwise follow-up with his PCP if he haspersistent pain. He was provided with a work note, but wishes to go back by the end of the week. In the absence of fractures, this is reasonable. He should call if he feels he cannot return as planned. Electronically signed by: Makenzie Gurrola P.A.-C. 08/26/21 7:37 PM DIVERSITY SPECIALIST RSITY SPECIALIST documented in this encounter Plan of Treatment Not on filedocumented as of this encounter Visit Diagnoses Diagnosis Injury Leg Subsequent Right - Primary Injury Chest Wall Subsequent documented in this encounter Additional Health Concerns Assessment Noted Time PHQ-9 Depression Total Score: 16 12/29/2019 7:41 AM CD T documented as of this encounter Care Teams Software Tools Engineer Relationship Specialty Start Date End Date Anthony Carpenter, ELA, C.N.P., PCP - General Family Medicine M.S.N. [address] [phone] documented as of this encounter
--- OUTSIDE RECORDS SUMMARY | 2022-08-19 06:50 | XMS_ITS | Encounter Summary ---
:1975 Author Organization [facility] Address [address] [place] [address] Care Team Providers Name Role Phone Anthony Carpenter APRN, C.N.Harsha, M.S.N. Primary Care Provider + Reason for Visit Reason Comments Communication Encounter Details Date Type Department Care Team Description 07/24/2021 Clinical Communication Department of [facility] Anthony Carpenter Communication Medicine, [place] Zuñiga APRN, Clinic, in [place], M.S .N. [place] [address] [place] [phone] Social History Tobacco Use Types Packs/Day [...] you attend catholic or Patient refused 2020 denominational services? Do [...] this encounter Miscellaneous Notes Telephone Encounter - Poornima Horner L.P.N. - 07/26/2021 11:19 AM CDT Called and left detailed message on identified voice mail to contact OT [phone] Telephone Encounter - Anthony Carpenter APRN, C.N.P., M.S.N. - 07/25/2021 8:06 AM CDT Given the injury occurred at work I would recommend that he be seen by Occupational Medicine for return to work status and if any restrictions are needed. Telephone Encounter - Olga Lockhart - 07/24/2021 8:18 AM CDT Reason for Communication: Patient saw Anthony Carpenter on 07/17/21 for his shoulder pain and has been outof work since that date and was wondering if he can get a note for work. His phone number is [phone]. Please call patient. Current Can Nursing/Provider leave a detailed message?: Did the patient refuse triage through Nurse line? (for symptom based concerns): Action Needed: Patient wants a call back. Name of Medication (if relevant): Please send all scheduling replies to scheduling [...] documented as of this encounter Care Teams System Dispatcher Relationship Specialty Start Date End Date Anthony Carpenter, ELA, C.N.P., PCP - General Family Medicine M.S.N. [address] [phone] documented as of this encounter
--- OUTSIDE RECORDS SUMMARY | 2022-08-19 06:50 | XMS_ITS | Encounter Summary ---
:1975 Author Organization [facility] Address [address] [place] [address] Care Team Providers Name Role Phone Anthony Carpenter APRN, C.N.PPatricia, M.S.N. Primary Care Provider + Reason for Visit Reason Comments Med Refill Encounter Details Date Type Department Care Team Description 08/27/2021 Refill Department of Family Medicine, Anthony Carpenter APRN, Med Refill [facility], in [place], C. N.Harsha, M.S.N. [place] [address] [address] [place] [address] [place] [address] [facility] [phone] Social History Tobacco Use Types Packs/Day Years [...] or relatives? How often do you attend congregation or Patient refused 2020 taoism services? Do you belong to any clubs or No 07/17/2021 organizations such as congregation groups, unions, fraternal or athletic groups, or [...] place to sleep or slept in a correction (including now)? Education Answer Date Recorded What is the highest level of school you have Some college, n o degree 07/17/2021 completed or the highest degree you have received? Sex Assigned at Date Recorded Not on file documented as of this encounter Miscellaneous Notes Telephone Encounter - Florinda Flynn L.P.N. - 08/30/2021 1:21 PM CRYOGENICS REPAIRER Let patient know that his rx is at the pharmacy for him GENICS REPAIRER Telephone Encounter - Brenda Potter - 08/30/2021 8:24 AM CST Patient is calling he has been out of his Adderall for 4 days and wanted to know if you could pleasesend his refill for him - [phone] GENICS REPAIRER Telephone Encounter - Marilyn Yi - 08/29/2021 1:33 PM CST Pt is out of meds GENICS REPAIRER Telephone Encounter - Frida Ji - 08/27/2021 9:56 AM CST Nurse review: Unable to forward request to provider; Controllled Substance, CSA Primary Provider: Anthony Carpenter APRN, C.N.P., M.S.N. Requested Prescriptions Pending Prescriptions Disp Refills ??? dextroamphetamine-amphetamine (ADDERALL) 10 mg tablet 60 tablet 0 Sig: Take 1 tablet (10 mg total) by mouth 2 (two) times a day. Pharmacy: [id number] - [place] GENICS REPAIRER Telephone Encounter - Naz Zelaya - 08/27/2021 9:49 AM CST Name of Medication: dextroamphetamine-amphetamine (ADDERALL) 10 mg tablet Provider: Dr. Anthony Carpenter Strength: 10 mg Frequency: 10 mg, 2 times daily Pharmacy: [facility] GENICS REPAIRER documented in this encounter Plan of Treatment Not on filedocumented as of this encounter Visit Diagnoses Not on filedocumented in this encounter Additional Health Concerns Assessment Noted Time PHQ-9 Depression Total Score: 16 12/29/2019 7:41 AM CD T documented as of this encounter Care Teams Assembly Leader Relationship Specialty Start Date End Date Anthony Carpenter, FREIGHT AIR BRAKE FITTER, C.N.P., PCP - General Family Medicine M.S.N. [address] [phone] documented as of this encounter
--- OUTSIDE RECORDS SUMMARY | 2022-08-19 06:50 | XMS_ITS | Encounter Summary ---
:1975 Author Organization [facility] Address [address] [place] [address] Care Team Providers Name Role Phone Anthony Carpenter APRN, C.N.Harsha, M.S.N. Primary Care Provider + Encounter Details Date Type Department Care Team Description 07/31/2021 Orders Only Department of Family Anthony Carpenter Pai n Abdominal Chronic Medicine, [place] ELA C.N.PPatricia, (Primary Dx) Clinic[facility] [address] [place] [phone] Social History Tobacco Use Types Packs/Day Years [...] or relatives? How often do you attend confucianist or Patient refused 2020 moravian services? Do you belong to any clubs or No 07/17/2021 organizations such as confucianist groups, unions, fraternal or athletic groups, or [...] of this encounter Visit Diagnoses Diagnosis Pain Abdominal Chronic - Primary documented in this encounter Additional Health Concerns Assessment Noted Time PHQ-9 Depression Total Score: 16 12/29/2019 7:41 AM CD T documented as of this encounter Care Teams Licensed Veterinary Technician Relationship Specialty Start Date End Date Anthony Carpenter, ELA, C.N.P., PCP - General Family Medicine M.S.N. [address] [place] [phone] documented as of this encounter
--- OUTSIDE RECORDS SUMMARY | 2022-08-19 06:50 | XMS_ITS | Encounter Summary ---
:1975 Author Organization [facility] Address [address] [place] [address] Care Team Providers Name Role Phone Anthony Carpenter APRN, C.NCristine, M.S.N. Primary Care Provider + Reason for Referral MRI/CAT/PET Scan (Routine) - Closed Specialty Diagnoses / Procedures Referred By Contact Refer red To Contact Radiology Diagnoses Pain Shoulder Left Anthony Carpenter APRN, [facility] [place] [facility] Procedures MR Shoulder Left without IV Contrast [place] MRI UPR EXT JOINT WO BRENDAN C.N.P., M.S.N. [address] [place] [phone] Referral ID Status Reason Start Date Expiration Date Visits Requ ested Visits Authorized [id number] Closed 07/17/2021 07/17/2022 1 1 Reason for Visit MRI/CAT/PET Scan (Routine) - Closed Specialty Diagnoses / Procedures Referred By Contact Refer red To Contact Radiology Diagnoses Pain Shoulder Left Anthony Carpenter APRN, [facility] Procedures MR Shoulder Left without IV Contrast NJ MRI UPR EXT JOINT WO CNTRST C.N.P., M.S.N. [address] [place] [address] Referral ID Status Reason Start Date Expiration Date Visits Requ ested Visits Authorized [id number] Closed 07/17/2021 07/17/2022 1 1 Encounter Details Date Type Department Care Team Description 07/24/2021 Hospital Encounter Department of Anthony Carpenter Pain Sh oulder Left Radiology in [place] C.NCristine, M.S.N. [address] [place] [phone] Social History Tobacco Use Types [...] or relatives? How often do you attend alevism or Patient refused 2020 rastafarian services? Do you belong to any clubs or No 07/17/2021 organizations such as alevism groups, unions, fraternal or athletic groups, or [...] place to sleep or slept in a fpc (including now)? Education Answer Date Recorded What [...] gram tablet documented as of this encounter Miscellaneous Notes Result Encounter Note - Adenike Cartagena L.P.N. - 07/24/2021 10:24 AM CDT Good Morning, Patient would like to proceed with Left Shoulder injection. Patient declines PT at this time. Patient also is requesting a return to work note. He would like to return on 07/29. 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. Someone would need to call patient to let him know that RTW note is ready. Please advise. Thank you documented in this encounter Plan of Treatment Not on filedocumented as of this encounter Procedures Procedure Name Priority Date/Time Associated Comments Diagnosis MR SHOULDER LEFT RAD - Routine 07/24/2021 7:35 Pain Shoulder Result s for this WITHOUT IV (most inpatients AM CDT Left procedure a re in CONTRAST and all the results outpatients) section. documented in this encounter Results MR Shoulder Left without IV Contrast (07/24/2021 7:35 AM CDT) Anatomical Region Laterality Modality Upper Extremity, Shoulder, Musculoskeletal RST LOS, Left Magnetic Resonance Musculoskeletal ARZ LOS, Muskuloskeletal FLA LOS Specimen (Source) Anatomical Collection Method Collection Time Re ceived Time Location / / Volume Laterality 07/24/2021 8:13 AM CDT Impressions 07/24/2021 8:25 AM CDT 1. ??Delaminating intrasubstance tear involving the infraspinatus tendon. Narrative 07/24/2021 8:25 AM CDT EXAM: MR SHOULDER LEFT WITHOUT IV CONTRAST COMPARISON:July 20, 2019 FINDINGS: Postoperative changes prior re pair of the superior rotator cuff. The supraspinatus tendon is intact. There is a delaminating intrasubstance tear involving the infraspinatus tendon. The teres minor tendon is normal. The subscapularis tendon appears normal. The long head biceps tendon is not visualized likely secondary to prior ten odesis. The muscles of the rotator cuff demonstrate no significant atrophy or ed cordell. Normal glenohumeral joint alignment. Sut ure anchor within the superior labrum compatible with prior SLAP repair. No ev idence of free tear of the labrum. The glenohumeral joint cartilage appears pre served. Physiologic quantity of fluid within the glenohumeral joint space. No suspicious marrow signal abnormality. Mild acromioclavicular degenerative avendano ge. Procedure Note Florentino Cook M.D. - 07/24/2021Forma tting of this note might be different from the original. EXAM: MR SHOULDER LEFT WITHOUT IV CONTRA ST COMPARISON:July 20, 2019 FINDINGS: Postoperative changes prior re pair of the superior rotator cuff. The supraspinatus tendon is intact. There is a delaminating intrasubstance tear involving the infraspinatus tendon. The teres minor tendon is normal. The subscapularis tendon appears normal. The long head biceps tendon is not visualized likely secondary to prior ten odesis. The muscles of the rotator cuff demonstrate no significant atrophy or ed cordell. Normal glenohumeral joint alignment. Sut ure anchor within the superior labrum compatible with prior SLAP repair. No ev idence of free tear of the labrum. The glenohumeral joint cartilage appears pre served. Physiologic quantity of fluid within the glenohumeral joint space. No suspicious marrow signal abnormality. Mild acromioclavicular degenerative avendano ge. IMPRESSION: 1. Delaminating intrasubstance tear invo lving the infraspinatus tendon. Laurie Pathak APRNNPatrick., M.S.N. IMG MRI PROCEDURES documented in this encounter Visit Diagnoses Diagnosis Pain Shoulder Left documented in this encounter Additional Health Concerns Assessment Noted Time PHQ-9 Depression Total Score: 16 12/29/2019 7:41 AM CD T documented as of this encounter Care Teams Department Store Door Greeter Relationship Specialty Start Date End Date Anthony Carpenter APRN, C.N.P., PCP - General Family Medicine M.S.N. [address] [phone] documented as of this encounter
--- OUTSIDE RECORDS SUMMARY | 2022-08-19 06:50 | XMS_ITS | Encounter Summary ---
:1975 Author Organization [facility] Address [address] [place] [address] Care Team Providers Name Role Phone Jayden Anthony Zuñiga APRN C.N.Gabriel., M.S.N. Primary Care Provider + Encounter Details Date Type Department Care Team Description 07/10/2021 Emergency [facility] Pain Shoulder Left (Primary Dx); [address] [place] [phone] Social History Tobacco Use Types Packs/Day [...] or relatives? How often do you attend caodaism or Patient refused 2020 quaker services? Do you belong to any clubs or No 07/17/2021 organizations such as caodaism groups, unions, fraternal or athletic groups, or [...] Comments Diagnosis DX SHOULDER LEFT RAD - Semiurgent 07/10/2021 9:15 Injury Shoulder R esults for this 2+ VIEWS (Fast; most ED PM CDT Initial Left procedure are in patients; some the results inpatients) section. documented in this encounter Results DX Shoulder Left 2+ Views (07/10/2021 9:15 PM CDT) Anatomical Region Laterality Modality Upper Extremity, Shoulder, Musculoskeletal RST LOS, Left Digital Radiography Musculoskeletal ARZ LOS, Muskuloskeletal FLA LOS Specimen (Source) Anatomical Collection Method Collection Time Re ceived Time Location / / Volume Laterality 07/11/2021 8:23 AM CDT Impressions 07/11/2021 8:25 AM CDT Comparison 07/05/21. No acute fracture or joint dislocation. Mild glenohumeral degenerative joint disease. Proximal humeral surgical device for biceps tenodesis. Unchanged chronic smal l ossicles posterior to the humeral head. Narrative 07/11/2021 8:25 AM CDT EXAM: DX SHOULDER LEFT 2+ VIEWS Procedure Note Kanu Agrawal M.D. - 07/11/2021 EXAM: DX SHOULDER LEFT 2+ VIEWS IMPRESSION: Comparison 07/05/21. No acute fracture or joint dislocation. Mild glenohumeral degenerative joint disease. Proximal humeral surgical device for biceps tenodesis. Unchanged chronic smal l ossicles posterior to the humeral head. Haylee Rosa APRN C.N.P., R.N. IMG DIAGNOSTIC IMAGING PROCEDURES documented in this encounter Visit Diagnoses Diagnosis Pain Shoulder Left - Primary Injury Shoulder Initial Left documented in this encounter Additional Health Concerns Assessment Noted Time PHQ-9 Depression Total Score: 16 12/29/2019 7:41 AM CD T documented as of this encounter Care Teams Faith Healer Relationship Specialty Start Date End Date Anthony Carpenter, ELA, C.N.P., PCP - General Family Medicine M.S.N. [address] [place], [place] [address], [place] [phone] documented as of this encounter
--- OUTSIDE RECORDS SUMMARY | 2022-08-19 06:50 | XMS_ITS | Encounter Summary ---
:1975 Author Organization [facility] Address [address] [place] [address] Care Team Providers Name Role Phone Anthony Carpenter APRN C.N.Gabriel., M.S.N. Primary Care Provider + Encounter Details Date Type Department Care Team Description 07/16/2021 - Emergency [facility] Colitis (Primary Dx) 07/17/2021 [address] [place] [address] Social History Tobacco Use Types Packs/Day [...] or relatives? How often do you attend zoroastrianism or Patient refused 2020 episcopal services? Do you belong to any clubs or No 07/17/2021 organizations such as zoroastrianism groups, unions, fraternal or athletic groups, or [...] place to sleep or slept in a assisted (including now)? Education Answer Date Recorded What [...] mouth tablet 2 (two) times a day. pantoprazole (PROTONIX) Take 1 tablet (40 180 tablet 3 07/1701/02/2022 40 mg EC tablet mg total) by mouth 2 (two) times a day before breakfast and dinner. sucralfate (CARAFATE) 1 Take 1 g by mouth. 0 /01/202108/12/2021 gram tablet documented as of this encounter Plan of Treatment Not on filedocumented as of this encounter Visit Diagnoses Diagnosis Colitis - Primary documented in this encounter Additional Health Concerns Assessment Noted Time PHQ-9 Depression Total Score: 16 12/29/2019 7:41 AM CD T documented as of this encounter Care Teams Manager Database Administration Relationship Specialty Start Date End Date Anthony Carpenter, ELA, C.N.P., PCP - General Family Medicine M.S.N. [address] [place] [address] [place] [phone] documented as of this encounter
--- OUTSIDE RECORDS SUMMARY | 2022-08-19 06:50 | XMS_ITS | Encounter Summary ---
:1975 Author Organization [facility] Address [address] [place] [address] Care Team Providers Name Role Phone Anthony Amaya APRN C.N.PPatricia, M.S.N. Primary Care Provider + Reason for Referral MRI/CAT/PET Scan (Routine) - Closed Specialty Diagnoses / Procedures Referred By Contact Refer red To Contact Radiology Diagnoses Pain Shoulder Left Anthony Amaya APRN, [facility] Procedures MR Shoulder Left without IV Contrast [place] MRI UPR EXT JOINT WO CNTRST C.N.P., M.S.N. [address] [place] [phone] Referral ID Status Reason Start Date Expiration Date Visits Requ ested Visits Authorized [id number] Closed 07/17/2021 07/17/2022 1 1 Reason for Visit Reason Comments Post Ed Visit Follow-up Left shoulder pain, patient was tolder may need MRI, colitis Appointment Request (Routine) - Closed Specialty Diagnoses / Procedures Referred By Contact Refer red To Contact Family Medicine Referral ID Status Reason Start Date Expiration Date Visits Requ ested Visits Authorized [id number] Closed 07/12/2021 07/12/2022 1 1 Encounter Details Date Type Department Care Team Description 07/17/2021 Office Visit Department of Family Anthony Amaya (Primary Dx); Medicine, Primitivo Zuñiga APRN, Pain Shou lder Left; Clinic, in [place], M.S .N. Attention Deficit With Hyperactivity Dis order; [place] [address] Pain Generalized Abdominal [address] [place] [phone] Social History Tobacco Use Types Packs/Day [...] you attend confucianism or Patient refused 2020 taoist services? Do you belong to any clubs [...] Sign Reading Time Taken Comments Blood Pressure 119/77 07/17/2021 10:37 AM CDT Pulse 96 07/17/2021 10:37 AM CDT Temperature 36.7 ??C (98.1 ??F) 07/17/2021 10:37 AM CDT Respiratory Rate - - Oxygen Saturation - - Inhaled Oxygen Concentration - - Weight 65.1 kg (143 lb 8.3 oz) 07/17/2021 10:37 AM CDT Height - - Body Mass Index 24.38 04/03/2021 9:16 AM CDT documented in this encounter Progress Notes Anthony Amaya, ELA, C.N.P., M.S.N. - 07/17/2021 11:00 AM CDT SUBJECTIVE CHIEF COMPLAINT/REASON FOR VISIT Alon Jaimes is a 45 y.o. male who presents for evaluation of Post Ed Visit Follow-up (Leftshoulder pain, patient was tolder may need MRI, colitis). HISTORY OF PRESENT ILLNESS Alon Jaimes is a 45 y.o. male who presents today in ER follow-up for abdominal pain and shoulder pain. Patient reports hoarding his shoulder at work while lifting something and he felt a pop.He has had 3 surgeries in the last 3 years on his left shoulder. He describes the pain as a burning stabbing sensation. He was seen for this at the same-day clinic and in the emergency department and x-rays have been nondiagnostic. He is not able to raise his arm above his head due to shoulder pain. He rates his pain a 10/10. He was also seen in the emergency department for abdominal pain which has been going on for about 1 week now. He was seen in the emergency department on July [address] scan of the abdomen and pelvis was performed which showed probable nonspecific colitis involving the sigmoid colon and rectum. Ultrasound of the gallbladder was unremarkable and the ER. Blood work was unremarkable in the ER. He also has a history of erosive gastritis which was demonstrated on upper endoscopy in March of this year and was subsequently treated with Protonix. The patient is not taking Protonix currently.So this was prescribed him in the emergency department with concerns of gastritis. Following day he presented emergency department again and was subsequently prescribed prednisone which the patient hasnot taken yet. Patient reports that he has lost his appetite and he is experiencing intermittent nausea. Patient rates his pain a 10/10 today. He is having a difficult time sleeping because of it. He does not have any diarrhea or constipation. Sometimes it feels like he has to have a bowel movement but nothing comes out. Fevers, chills, night sweats. He is requesting pain medication. Patient also has attention deficit hyperactivity disorder and takes Adderall for this. Patient has no concerns about this medication today and reports that it is working well for him. REVIEW OF SYSTEMS See HPI, remainder of ROS reviewed and are negative. MEDICAL HISTORY Patient Active Problem List Diagnosis ??? Anxiety ??? Attention Deficit With Hyperactivity Disorder ??? Pain Shoulder Left SURGICAL HISTORY Past Surgical History: Procedure Laterality Date ??? CLOSURE OF SKIN BY SUTURE N/A 05/28/2007 Closure of Skin and Subcutaneous Tissue Other Sites ??? DECOMPRESSION OF MEDIAN NERVE N/A 05/30/2013 Carpal tunnel release ??? ROTATOR CUFF REPAIR Left 04/28/2018 ??? SHOULDER ARTHROSCOPY W/ SUPERIOR LABRAL ANTERIOR POSTERIOR REPAIR Left 04/28/2018 CURRENT MEDICATIONS Current Outpatient Medications: ??? acetaminophen (for_TYLENOL) 500 mg tablet, Take 1,000 mg by mouth., Disp: , Rfl: ??? albuterol inhaler, Inhale 2 puffs every 4 (four) hours as needed for wheezing or shortness of breath., Disp: 3 Inhaler, Rfl: 3 ??? dextroamphetamine-amphetamine (ADDERALL) 10 mg tablet, Take 1 tablet (10 mg total) by mouth 2 (two) times a day., Disp: 60 tablet, Rfl: 0 ??? predniSONE (DELTASONE) 20 mg tablet, Take 20 mg by mouth., Disp: , Rfl: ??? sucralfate (CARAFATE) 1 gram tablet, Take 1 g by mouth., Disp: , Rfl: ??? cyclobenzaprine (FLEXERIL) 5 mg tablet, Take 1 tablet (5 mg total) by mouth at bedtime as neededfor muscle spasms. (Patient not taking: Reported on 07/17/2021 ), Disp: 15 tablet, Rfl: 0 ??? [START ON 07/19/2021] dextroamphetamine-amphetamine (AdderalL) 10 mg tablet, Take 1 tablet (10 mgtotal) by mouth 2 (two) times a day. (Patient not taking: Reported on 07/05/2021 ), Disp: 60 tablet, Rfl: 0 ??? [START ON 08/19/2021] dextroamphetamine-amphetamine (ADDERALL) 10 mg tablet, Take 1 tablet (10 mgtotal) by mouth 2 (two) times a day. (Patient not taking: Reported on 07/05/2021 ), Disp: 60 tablet, Rfl: 0 ??? pantoprazole (PROTONIX) 40 mg EC tablet, Take 1 tablet (40 mg total) by mouth 2 (two) times a day before breakfast and dinner., Disp: 180 tablet, Rfl: 3 ALLERGIES/CONTRAINDICATIONS Allergies Allergen Reactions ??? Gadolinium-Containing Contrast Media Rash ??? Adhesive Tape-Silicones Other (see comments) ??? Ketorolac Other (see comments) and Itching Cerner listed no reactions ??? Latex Other (see comments) Cerner listed no reactions ??? Penicillins Other (see comments) and GI intolerance Cerner listed no reactions ??? Tramadol Rash OBJECTIVE VITAL SIGNS BP 119/77 (BP Location: Right arm, Patient Position: Sitting, Cuff Size: Regular) Pulse 96 Temp 36.7 ??C (Temporal) Wt 65.1 kg BMI 24.38 kg/m?? PHYSICAL EXAMINATION General: Patient is alert and oriented, in no acute distress. Capable of full communication without difficulty. Patient is polite and cooperative. Appropriately dressed and normal hygiene. HEENT: Normocephalic, atraumatic. Oropharynx without lesion. Pharynx rises symmetrically without exudate or erythema. Dentition grossly intact. Neck: No palpable lymph nodes. Neck is supple Heart: Regular rate and rhythm. No murmurs, gallops or rubs noted. Lungs: Clear to auscultation bilaterally. No wheeze. No accessory muscles of respiration noted. Abdomen: Is tender to palpation throughout his abdomen. No hepatosplenomegaly. No mass. Normal bowelsounds in all 4 quadrants. No rebound tenderness or guarding. Left shoulder: The patient is not able to lift his arms above 90?? with both passive and active range of motion due to pain. He has tenderness to palpation globally around the shoulder joint. Skin: No rashes, lesions, or ecchymoses. ASSESSMENT / PLAN 1. Colitis 2. Abdominal pain -discussed my findings with the patient. On CT scan it showed probable colitis at the sigmoid colon.The patient was prescribed prednisone for this which he has not taken. I recommended that he start taking this. He has a history of erosive gastritis and given his history of recommended that we put him on Protonix 40 mg twice daily for now. Will also have him complete a colonoscopy for further evaluation of his colitis which has been ordered for the [facility]. I did agree to provide him a short-term prescription of Percocet. The patient is aware there will be no more prescriptions for opioids. I am concerned regarding possible drug-seeking behaviors which I discussed with the patient. 3. Pain Shoulder Left -discussed my findings with the patient. Patient has a history of 3 shoulder surgeries on the left shoulder. He has had couple of x-rays which have been nondiagnostic. He felt a pop while lifting something at work. Will move forward with a left shoulder MRI for further evaluation to assess for any rotator cuff pathologies. Will provide further recommendations based on test results. 4. Attention Deficit With Hyperactivity Disorder -patient is due for a random drug screen so this has been ordered. He has been prescribed Percocet recently on 07/10/2021 which he has been taking. Once the results of this is back will go ahead and prescribe his Adderall 10 mg twice daily. He should follow-up in 6 months. Anthony Amaya APRN, C.NPatrick., M.S.N. documented in this encounter Miscellaneous Notes Addendum Note - Anthony Amaya APRN, C.N.Harsha, M.S.N. - 07/17/2021 11:00 AM CDT Addended by: ANTHONY AMAYA on: 07/25/2021 08:27 AM Modules accepted: Orders documented in this encounter Plan of Treatment Not on filedocumented as of this encounter Results MR Shoulder Left without [...] intrasubstance tear invo lving the infraspinatus tendon. Anthony Amaya APRN, C.N.P., M.S.N. IMG MRI PROCEDURES documented in this encounter Visit Diagnoses Diagnosis Colitis - Primary Pain Shoulder Left Attention Deficit With Hyperactivity Dis order Pain Generalized Abdominal Pain Shoulder Left documented in this encounter Additional Health Concerns Assessment Noted Time PHQ-9 Depression Total Score: 16 12/29/2019 7:41 AM CD T documented as of this encounter Care Teams Hr Business Partner Consultant Relationship Specialty Start Date End Date Anthony Amaya, ELA, C.N.P., PCP - General Family Medicine M.S.N. [address] [phone] documented as of this encounter
--- OUTSIDE RECORDS SUMMARY | 2022-08-19 06:50 | XMS_ITS | Encounter Summary ---
:1975 Author Organization [facility] Address [address] [place] [address] Care Team Providers Name Role Phone Jayden Anthony Zuñiga APRN C.N.P., M.S.N. Primary Care Provider + Encounter Details Date Type Department Care Team Description 08/06/2021 Orders Only Pharmacy Prior Auth Desiree Quezada I. [phone] Social History Tobacco Use Types Packs/Day Years [...] documented as of this encounter Care Teams Paving Block Cutter Relationship Specialty Start Date End Date Anthony Carpenter, ELA, C.N.P., PCP - General Family Medicine M.S.N. [address] [phone] documented as of this encounter
--- OUTSIDE RECORDS SUMMARY | 2022-08-19 06:50 | XMS_ITS | Encounter Summary ---
:1975 Author Organization [facility] Address [address] [place] [address] Care Team Providers Name Role Phone Jayden Anthony Zuñiga APRN C.N.Gabriel., M.S.N. Primary Care Provider + Encounter Details Date Type Department Care Team Description 07/31/2021 Emergency [facility] Abdominal Pain (Primary Dx) [address] [place] [phone] Social History Tobacco Use Types Packs/Day [...] or relatives? How often do you attend pentecostal or Patient refused 2020 amish services? Do you belong to any clubs or No 07/17/2021 organizations such as pentecostal groups, unions, fraternal or athletic groups, or [...] for wheezing or shortness of breath. cyclobenzaprine Take 1 tablet (5 mg 15 tablet 0 12/24/2020 08/12/2021 (FLEXERIL) 5 mg total) by mouth at tabletIndications: Pain bedtime as needed Neck, Pain Elbow Left, for muscle spasms. Pain Ankle Right dextroamphetamine-ampheta Take 1 tablet (10 60 tablet 0 08/30/2021 mine (ADDERALL) 10 mg mg total) by mouth tablet 2 (two) times a day. LORazepam (ATIVAN) 0.5 mg 0 07/31/2021 01/02/2022 tablet oxyCODONE-acetaminophen Take 1 tablet by 12 [...] 1 Take 1 g by mouth. 0 10/01/202108/12/2021 gram tablet documented as of this encounter Plan of Treatment Not on filedocumented as of this encounter Visit Diagnoses Diagnosis Abdominal Pain - Primary documented in this encounter Additional Health Concerns Assessment Noted Time PHQ-9 Depression Total Score: 16 12/29/2019 7:41 AM CD T documented as of this encounter Care Teams 8Th Grade Mathematics Teacher Relationship Specialty Start Date End Date Anthony Carpenter, ELA, C.N.P., PCP - General Family Medicine M.S.N. [address] [phone] documented as of this encounter
--- OUTSIDE RECORDS SUMMARY | 2022-08-19 06:50 | XMS_ITS | Encounter Summary ---
:1975 Author Organization [facility] Address [address] [place] [address] Care Team Providers Name Role Phone Anthony Carpenter APRN, C.N.P., M.S.N. Primary Care Provider + Encounter Details Date Type Department Care Team Description 08/28/2021 Orders Only Department of Family Anthony Carpenter APR N, Medicine, [facility], C.N.P ., M.S.N. in [facility] [address] [place] [phone] (Wo rk) Social History Tobacco [...] or relatives? How often do you attend jewish or Patient refused 2020 taoism services? Do you belong to any clubs or No 07/17/2021 organizations such as jewish groups, unions, fraternal or athletic groups, or [...] to pay for the very basics like 51 Give hat hard 07/17/2021 food, housing, medical care, [...] as of this encounter Care Teams Manager Infrastructure Relationship Specialty Start Date End Date Anthony Carpenter, ELA, C.N.P., PCP - General Family Medicine M.S.N. [address] [phone] documented as of this encounter
--- OUTSIDE RECORDS SUMMARY | 2022-08-19 06:50 | XMS_ITS | Encounter Summary ---
:1975 Author Organization [facility] Address [address] [place] [address] Care Team Providers Name Role Phone Anthony Carpenter APRN C.N.PPatricia, M.S.N. Primary Care Provider + Encounter Details Date Type Department Care Team Description 07/30/2021 Clinical Communication Department of [facility] Anthony Carpenter, Medicine, [place] ELA C.N.PPatricia, Clinic, [facility] [place], [facility] [address] [place] [phone] Social History Tobacco Use Types Packs/Day Years [...] or relatives? How often do you attend restorationist or Patient refused 2020 church services? Do you belong to any clubs or No 07/17/2021 organizations such as restorationist groups, unions, fraternal or athletic groups, or [...] to pay for the very basics like Nov[employer] hat hard 07/17/2021 food, housing, medical care, [...] to sleep or slept in a senior living (including now)? Education Answer Date Recorded What is the highest level of school you have Some college, n o degree 07/17/2021 completed or the highest degree you have received? Sex Assigned at Date Recorded Not on file documented as of this encounter Miscellaneous Notes Telephone Encounter - Anthony Carpenter APRN, C.N.Gabriel., M.S.N. - 08/01/2021 12:38 PM CDT Patient was seen today by another provider. Telephone Encounter - Sherlyn Quinones - 07/30/2021 2:30 PM CDT Reason for Communication: Patient called and stated that he really wants to go back to work and would like the work note by tomorrow morning if possible. Current Can Nursing/Provider leave a detailed message?: No Did the patient refuse triage through Nurse line? (for symptom based concerns): Action Needed: Please call patient back if needed Name of Medication (if relevant): Please send all scheduling replies to scheduling pool. Telephone Encounter - Evette Soni - 07/30/2021 9:42 AM CDT Reason for Communication: pt called and would like a work note to go back to work after his colonoscopy. He would also like to talk about his Adderall. Current Can Nursing/Provider leave a detailed message?: yes Did the patient refuse triage through Nurse line? (for symptom based concerns): na Action Needed: Please call back Name of Medication (if relevant): Please send all scheduling replies to scheduling pool. documented in this encounter Plan of Treatment Not on filedocumented as of this encounter Visit Diagnoses Not on filedocumented in this encounter Additional Health Concerns Assessment Noted Time PHQ-9 Depression Total Score: 16 12/29/2019 7:41 AM CD T documented as of this encounter Care Teams Tablet Repair Relationship Specialty Start Date End Date Anthony Carpenter, ACCOUNTS ADJUSTABLE CLERK, C.N.P., PCP - General Family Medicine M.S.N. [address] [phone] documented as of this encounter
--- OUTSIDE RECORDS SUMMARY | 2022-08-19 06:50 | XMS_ITS | Encounter Summary ---
:1975 Author Organization [facility] Address [address] [place] [address] Care Team Providers Name Role Phone Anthony Carpenter APRN C.N.P., M.S.N. Primary Care Provider + Reason for Visit Reason Comments Fall Encounter Details Date Type Department Care Team Description 08/27/2021 Nurse Triage Department of [facility] Vanessa Monique, Fall Medicine, [facility], R.N. in [place], [place] [address] [place] [address] [place] [address] [place] [address] [phone] Social History Tobacco Use Types Packs/Day Years [...] or relatives? How often do you attend bahai or Patient refused 2020 restorationist services? Do you belong to any clubs or No 07/17/2021 organizations such as bahai groups, unions, fraternal or athletic groups, or [...] this encounter Miscellaneous Notes Telephone Encounter - Vanessa Monique R.N. - 08/27/2021 12:28 PM [employer] SPECIALTIES COOK Chief Complaint / Reason for Call Patient is a 45 y.o. male calling regarding Fall. Assessment Concern: Fell with injury To ribs, right shoulder, right leg and hip. No new or worsening symptoms for triage, but states no improvement. Present for: Fell 08-25-21. Seen in ED on 08-25. Seen in UC yesterday. Home cares tried: Ice, tylenol and Ibuprofen not helpful. States still having a lot of pain. Calling to request: Wants follow-up in clinic. Warm transfer back to clinical professor to assist in making an appointment. EAN [employer] COOK documented in this encounter Plan of Treatment Not on filedocumented as of this encounter Visit Diagnoses Not on filedocumented in this encounter Additional Health Concerns Assessment Noted Time PHQ-9 Depression Total Score: 16 12/29/2019 7:41 AM CD T documented as of this encounter Care Teams Trading Assistant Relationship Specialty Start Date End Date Anthony Carpenter, WHEEL BLOCKER, C.N.P., PCP - General Family Medicine M.S.N. [address] [phone] documented as of this encounter
--- OUTSIDE RECORDS SUMMARY | 2022-08-19 06:50 | XMS_ITS | Encounter Summary ---
:1975 Author Organization [facility] Address [address] [place] [address] Care Team Providers Name Role Phone Jayden Anthony Zuñiga APRN, C.N.P., M.S.N. Primary Care Provider + Reason for Visit Reason Comments Rx Prior Authorization PA DENIED - LIDOCAINE 5% PAT CHES Encounter Details Date Type Department Care Team Description 08/06/2021 Clinical Department of [facility], Rx Prior Communication Family Medicine, Daniel Negrete, Authormark hart ([facility], P.A.-C., P.A. DENIED - LIDOCAINE 5% in [place], [address]) [facility] [address] [place] [phone] Social History Tobacco Use Types Packs/Day Years [...] you attend sabianism or Patient refused 2020 yarsanism services? Do you belong to any clubs [...] this encounter Miscellaneous Notes Telephone Encounter - Janet Matta L.P.N. - 08/12/2021 2:43 PM CDT LM to call back Telephone Encounter - Janet Matta L.P.N. - 08/07/2021 4:11 PM CDT LM to call back. Telephone Encounter - Janet Matta L.P.N. - 08/06/2021 12:29 PM CDT Attempted to contact patient at number given [phone]. LM to call back. Telephone Encounter - Daniel Raza P.A.-C., P.A. - 08/06/2021 12:16 PM CDT Please let patient know that the medication was released to his pharmacy however has been denied by the insurance company and for this reason if he chooses would have to pay out of pocket. It is appropriate for the patient to purchase doro-gzg-cugkttb lidocaine patches which are 4% and not 5% however the benefits are very minimal of 5 personal 4% so may choose to pursue the ojid-hfj-vnonqvv 4% and not incur the out of pocket expense of the prescribed 5% lidocaine patch. Telephone Encounter - Desiree Figueroa I. - 08/06/2021 12:10 PM CDT Images from the original note were not included. The patient's health insurer has denied prior authorization for LIDOCAINE 5% PATCHES. A quick view of the denial reason is in this communication message. To view the denial letter: 1. Go to Snapshot 2. Go to the purple Medications box 3. Click on the blue Prior Authorizations link 4. Under Denied, click on the blue medication link to open and view the attachment. As the prescriber your options are: ??? Appeal the decision to the insurer directly (see denial letter for how to appeal). ??? Write a new Rx for an alternative medication therapy. ??? Release the Rx to the pharmacy so the patient can pay out of pocket if they desire. To Release Rx: Open this encounter, go to Meds & Orders, click on the medication, and click the blue ???Release Rx?? button. PLEASE NOTE: If the ???Release Rx?? button is not visible, the Rx has already been released to the pharmacy. If you have questions, please reply via QuickNote to Gabriel KAY. Thank you, The OPPA Team documented in this encounter Plan of Treatment Not on filedocumented as of this encounter Visit Diagnoses Not on filedocumented in this encounter Additional Health Concerns Assessment Noted Time PHQ-9 Depression Total Score: 16 12/29/2019 7:41 AM CD T documented as of this encounter Care Teams Fitter'S Assistant Relationship Specialty Start Date End Date Bakewell, Anthony J, ELA, C.N.P., PCP - General Family Medicine M.S.N. [address] [phone] documented as of this encounter
--- OUTSIDE RECORDS SUMMARY | 2022-08-19 06:50 | XMS_ITS | Encounter Summary ---
:1975 Author Organization [facility] Address [address] [place] [address] Care Team Providers Name Role Phone Anthony Carpenter APRN C.N.Gabriel., M.S.N. Primary Care Provider + Reason for Visit Reason Comments Chest Injury Triage Encounter Details Date Type Department Care Team Description 08/26/2021 Nurse Triage Department of [facility] [place] [facility]; Triage Medicine, Primitivo Weaver RKate [facility] [place] (Work) [address] [place] [address] [facility] [phone] Social History Tobacco Use Types Packs/Day Years [...] you attend congregation or Patient refused 2020 sikhism services? Do [...] to pay for the very basics like [employer] hat hard 07/17/2021 food, housing, medical care, [...] this encounter Miscellaneous Notes Telephone Encounter - Allegra Cash R.N. - 08/26/2021 10:13 AM PERSONAL DEVELOPMENT MENTOR Chief Complaint / Reason for Call Patient is a 45 y.o. male calling regarding Chest Injury and Triage. Assessment Concern: Today, the patient calls with severe throbbing and stabbing pain to his chest wall/rib cage, right hip and right lower extremity and associated difficulty breathing due to rib cage discomfort.Yesterday, the patient fell down 7 basement stairs. 911 was contacted and patient was taken to [facility] in [place], [place] for further evaluation. Per ED note no acute findingson CT/Xray and home care/supportive measures (ice, heat, tylenol and ibuprofen) was recommended. Present for: yesterday Home cares tried: ice, tylenol, ibuprofen Calling to request: Appointment The recommended disposition is See a health care provider within 4 hours (overriding Go to ED Now).Patient Disconnected. Attempted x1 to reach patient and voice mail was reached. Care Advice Patient/Caregiver understands and will follow care advice?: Yes, able to teach back GO TO ED NOW: * You need to be seen in the Emergency Department. * Go to the ED at nearest Hospital. * Leave now. Drive carefully. NOTE TO TRIAGER - DRIVING: * Another adult should drive. * If immediate transportation is not available via car or taxi, then the patient should be instructed to call [id number]. Reason for Disposition ??? SEVERE chest pain ??? [1] Difficulty breathing AND [2] not severe Protocols used: CHEST [id number] ONAL DEVELOPMENT MENTOR documented in this encounter Plan of Treatment Not on filedocumented as of this encounter Visit Diagnoses Not on filedocumented in this encounter Additional Health Concerns Assessment Noted Time PHQ-9 Depression Total Score: 16 12/29/2019 7:41 AM CD T documented as of this encounter Care Teams E Tailer Relationship Specialty Start Date End Date Anthony Carpenter, ELA, C.N.P., PCP - General Family Medicine M.S.N. [address] [phone] documented as of this encounter
--- OUTSIDE RECORDS SUMMARY | 2022-08-19 06:50 | XMS_ITS | Encounter Summary ---
:1975 Author Organization [facility] Address [address] [place] [address] Care Team Providers Name Role Phone Jayden Anthony Zuñiga APRN C.N.Gabriel., M.S.N. Primary Care Provider + Encounter Details Date Type Department Care Team Description 07/11/2021 Clinical Communication Department of Kaden Pineda Orthopedic Surgery [place] [address] [place] [phone] Social History Tobacco Use Types Packs/Day Years [...] you attend congregation or Patient refused 2020 baptist services? Do [...] to pay for the very basics like [employer] hat hard 07/17/2021 food, housing, medical care, [...] highest level of school Associate degree: jacki jarettjolene, 06/29/2019 you have completed or the highest technical, or vocational p rogram degree you have received? Sex Assigned at Date Recorded Not on file documented as of this encounter Miscellaneous Notes Telephone Encounter - Digna Morley - 07/11/2021 11:12 AM CDT Called and left message for patient to call back and schedule an appointment with an Orthopedic PA per previous message. ER follow up from 07/10/21 for left shoulder. Telephone Encounter - Makayla Chadwick L.P.NPatricia - 07/11/2021 10:46 AM CDT S: ER follow up B: Seen in the [facility] ER in [place] on 07/10/21 for chronic shoulder pain. Diagnosed with left rotator cuff injury/tear. Given sling, percocet. Instructed to follow up with Orthopedics. A: Needs appointment R: Dr. Pineda reviewed ER notes and recommends follow up with PA anytime, non urgently for evaluation. Attempted phone call with message left to call clinic back. Scheduling to arrange appointment with PA as noted by provider. documented in this encounter Plan of Treatment Not on filedocumented as of this encounter Visit Diagnoses Not on filedocumented in this encounter Additional Health Concerns Assessment Noted Time PHQ-9 Depression Total Score: 16 12/29/2019 7:41 AM CD T documented as of this encounter Care Teams Piano Tuner Relationship Specialty Start Date End Date Anthony Carpenter, ELA, C.N.P., PCP - General Family Medicine M.S.N. [address] [place] [phone] documented as of this encounter
--- OUTSIDE RECORDS SUMMARY | 2022-08-19 06:50 | XMS_ITS | Encounter Summary ---
:1975 Author Organization [facility] Address [address] [place] [address] Care Team Providers Name Role Phone Anthony Carpenter APRN, C.N.Harsha, M.S.N. Primary Care Provider + Encounter Details Date Type Department Care Team Description 07/26/2021 Lab Department [facility], [facility] ELA C.N.PPatricia, For Ot her Viral Diseases Building, in [place] M.S.NPatricia (COVID-19) [place] [address] [address] [facility] [phone] (Wo rk) Social History Tobacco Use [...] or relatives? How often do you attend jainism or Patient refused 2020 taoism services? Do you belong to any clubs or No 07/17/2021 organizations such as jainism groups, unions, fraternal or athletic groups, or [...] Name Priority Date/Time Associated Diagnosis Comme nts SARS CORONAVIRUS-2 Routine 07/26/2021 10:48 AM Encounter For R esults for this RNA, V CDT Screening For Other procedur e are in Viral Diseases the results (COVID-19) section. documented in this encounter Results SARS Coronavirus-2 RNA, V Asymptomatic (07/26/2021 10:48 AM CDT) [facility] Method Time Signature SARS-CoV-2 Swab, 07/27/2021 MKTO Specimen Nasopharynx 3:15 AM CDT Source SARS CoV-2 Undetected Undetected 07/27/2021 MKTO RNA, TMA 3:15 AM CDT Comment: SARS-CoV-2 RNA absent. This result does not rule out COVID-19 in the patient, as the sensitivity of the test depends o n the timing of the specimen collection and the quality of the specim en. Result should be correlated with patient's history and clinical presentat ion. ----ADDITIONAL INFORMATION---- This molecular amplification test was pe rformed using the Aptima SARS-CoV-2 assay ([employer] on the [employer] tem under emergency use authorization (EUA) by the U.S. Food and Drug Administ ration. Fact sheets for this EUA assay can be fo und at the following links: For Healthcare Providers: https://www.fd a.gov/media/212392/download For Patients: https://www.fda.gov/media/ 684179/download Specimen Anatomical Collection Method Collection Time Receive d Time (Source) Location / / Volume Laterality Varies 07/26/2021 10:48 07/26/2021 3:30 (Nasopharynx) AM CDT PM CDT Anthony Carpenter APRN, C.N.P., M.S.N. LAB MICROBIOLOGY - GENERAL ORDERABLES Performing Organization Address City/State/ZIP Code Phon e Number [facility]- [address] [place] [id number] [place] [address] [address] documented in this encounter Visit Diagnoses Diagnosis Encounter For Screening For Other Viral Diseases (COVID-19) documented in this encounter Additional Health Concerns Infection Onset Date Last Indicated Resolved Time COVID19 Pending 07/25/2021 07/26/2021 07/27/2021 3:16 AM CDT Assessment Noted Time PHQ-9 Depression Total Score: 16 12/29/2019 7:41 AM CD T documented as of this encounter Care Teams Shellfish Sorter Relationship Specialty Start Date End Date Anthony Carpenter APRN, C.N.P., PCP - General Family Medicine M.S.N. [address] [phone] documented as of this encounter
--- OUTSIDE RECORDS SUMMARY | 2022-08-19 06:50 | XMS_ITS | Encounter Summary ---
:1975 Author Organization [facility] Address [address] [place] [address] Care Team Providers Name Role Phone Anthony Carpenter APRN C.N.P., M.S.N. Primary Care Provider + Reason for Referral Outpatient (Routine) - Closed Specialty Diagnoses / Referred By Contact Referred To Contact Procedures Physical Medicine and Diagnoses Pain Abdominal Wall Daniel Raza [facility] Bennett Negrete, P.A. 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, Has been having blood in stool Other needing a note to go back to work Appointment Request (Routine) - Closed Specialty Diagnoses / Procedures Referred By Contact Refer red To Contact Family Medicine Referral ID Status Reason Start Date Expiration Date Visits Requ ested Visits Authorized [id number] Closed 07/31/2021 07/31/2022 1 1 Encounter Details Date Type Department Care Team Description 08/01/2021 Office Visit Department of Daniel Candelario in Abdominal Wall Medicine, [place] [facility], in [place], [address] [place], [place] [id number] [place] [phone] [address] (Work) [phone] Social History Tobacco Use Types Packs/Day Years [...] or relatives? How often do you attend yazidism or Patient refused 2020 christian services? Do you belong to any clubs or No 07/17/2021 organizations such as yazidism groups, unions, fraternal or athletic groups, or [...] Sign Reading Time Taken Comments Blood Pressure 138/84 08/01/2021 9:42 AM CDT Pulse 91 08/01/2021 9:42 AM CDT Temperature 36.5 ??C (97.7 ??F) 08/01/2021 9:42 AM CDT Respiratory Rate - - Oxygen Saturation 100% 08/01/2021 9:42 AM CDT Inhaled Oxygen Concentration - - Weight 65.7 kg (144 lb 13.5 oz) 08/01/2021 9:42 AM CDT Height - - Body Mass Index 24.61 04/03/2021 9:16 AM CDT documented in this encounter Patient Instructions Patient InstructionsDaniel Raza P.A.-C., P.A. - 08/01/2021 10:00 AM CDT Abdominal pain seems to be more abdominal wall based on exam. Based on lab work and imaging has beenon the last several weeks including last couple days and emergency department do have some concern that this is abdominal wall pain. There is a rare occurrence of nerve entrapment that can cause chronic abdominal wall pain but that usually is manage with conservative care. Recommend treatment plan including ice/heat per preference 15-20 minutes no more every 2 hours with barrier to prevent any burning or frostbite. Also recommend ibuprofen 600 mg 4 times a day for 3 days with food, your, probiotic with yogurt or probiotic. Only using for 3 days. Acetaminophen or Tylenol can be used up to 1000 mg upto 4 times a day as needed for pain. Do not exceed more than 4000 mg in 24 hours from all sources such as other cough cold medications and pain medications. Did send a prescription for lidocaine patch.4% lidocaine patch can be obtained [id number] as well. There has been an order placed with GI apparently by primary care provider. If should be communication and next couple days. If not contact primary care provider. Any sudden or significant changes call 911 or go to the emergency department. documented in this encounter Progress Notes Daniel Raza P.A.-C., P.A. - 08/01/2021 10:00 AM CDT SUBJECTIVE CHIEF COMPLAINT / REASON FOR VISIT Alon Jaimes is a 45 y.o. male who presents for evaluation of Rectal Pain (rectal pain and right side groin pain since having a colonoscopy 3 days ago ), Other (Has been diagnosed with Chrohnsand a bleeding ulcer, Has been having blood in stool ), and Other (needing a note to go back to work). HISTORY OF PRESENT ILLNESS Patient is a 45-year-old male presenting for ongoing and unrelenting abdominal pain. Patient also shares he has had right-sided groin pain and points to an area just to the right of the suprapubic region. Also notes rectal pain. This has been present since colonoscopy 3 days ago. The patient has significant history for chronic abdominal pain with what he states is Crohn's disease however medical records do indicate colitis unspecified with the colonoscopy a few days ago unremarkable. Also states bleeding ulcer however difficult to ascertain per medical records. His primary care provider did indicate to my conversation and the villi was thought to have ulcer based on EGD. Patient was seen yesterdayand 2 days ago due to these ongoing unrelenting problems. He did have workup 2 days ago including labs and ultrasound of the scrotum as well as CT stone which all were unremarkable were benign with no clear cause. Patient did walk into the same-day clinic asking for an appointment however no appointments were available. Subsequently did go to the emergency department for re-evaluation and had labs obtained there but apparently left before labs could be shared. The lab results were unremarkable as well. Patient has had further frequent visits to multiple emergency departments for abdominal pain as well as shoulder pain. Does not want with Orthopedics regarding left shoulder pain tomorrow. Patient did have CT of his abdomen and pelvis on 07/15 which showed probable nonspecific colitis but again therecent colonoscopy was unremarkable. Did show a torturous sigmoid colon however. Patient is still finishing the prednisone that was prescribed on 07/15. Patient did follow-up with his primary care provider who did give short course of Percocet. Patient does share that this medication does seem to helpespecially with him sleeping. His primary care provider however at that time did discuss with patient that no longer with opiates be prescribed due to frequent and recurring use of these medications wit h no clear cause of abdominal pain. [facility]ro records do indicate that the primary care provider did place referral for the patient follow-up with GI bleeding the ongoing symptoms and concerns. Patient is sharing with me that last night his pain was stabbing and constant and did have to have his help him get off the toilet. His pain is worse with bowel movements and urination. Patient states that the pain is still at 10/10 however last night was worse pain. He does have chills with the pain. Has noted occasional right ear pain since Thursday. Has had nausea. Has esophageal but denies anyfrank diarrhea. Pain is constant and stabbing and does wrap around to the right lower back region. Can not sleep at night. Denies fever or sore throat. No chest pain, shortness of breath or coughing. No vomiting or constipation. Patient does chew tobacco but denies any smoking or vaping. Denies alcohol or drug use denies any urethral discharge or genital sores. No urinary urgency, frequency, dysuria or burning. No concerns for STDs or history of STDs. Sexually active 1 partner again without concerns. Does have a history of kidney stones as well as urinary tract infections treatment at home with iceas well as hot packs and Tylenol. Patient again shares with me that Percocet does seem to help but that he is not abusing medication. When discussing treatment plan toys and visit patient states that he is not taking ibuprofen due to history of the ulcer in told not taking medication. I did call the patient back on the telephone a little while after the visit to further clarify treatment plan and referral to physical medicine for possible trigger point injections patient at that time shared me that he was taking 100 mg of ibuprofenas well as Tylenol. Patient states that trigger point injections have not worked in his shoulders aswell as lidocaine patches have not worked on the shoulder and they do not and will not work for his abdomen. The following portions of the patient's history were reviewed and updated as appropriate: allergies,current medications, family history, medical history, social history, surgical history and problem list. REVIEW OF SYSTEMS All other systems reviewed and are negative. OBJECTIVE BP 138/84 (BP Location: Right arm, Patient Position: Sitting, Cuff Size: Regular) Pulse 91 Temp 36.5 ??C (Oral) Wt 65.7 kg SpO2 100% BMI 24.61 kg/m?? PHYSICAL EXAM Constitutional Appearance: He is not toxic-appearing. Comments: Patient is anxious with continues movement of the feet and hands and somewhat jittery. Patient is also somewhat sweaty. Patient does not have great eye contact. HENT Head: Normocephalic. Right Ear: Tympanic membrane, ear canal and external ear normal. Left Ear: Tympanic membrane, ear canal and external ear normal. Nose: Nose normal. Mouth/Throat: Mouth: Mucous membranes are moist. Pharynx: Oropharynx is clear. Eyes General: No scleral icterus. Conjunctiva/sclera: Conjunctivae normal. Cardiovascular Rate and Rhythm: Normal rate and regular rhythm. Heart sounds: Normal heart sounds. No murmur heard. No friction rub. No gallop. Pulmonary Effort: Pulmonary effort is normal. Breath sounds: Normal breath sounds. No wheezing, rhonchi or rales. Abdominal General: Bowel sounds are normal. There is no distension. Tenderness: There is abdominal tenderness (Generalized throughout.). There is guarding. There is noright CVA tenderness or left CVA tenderness. Comments: Positive Carnett sign right lower quadrant. Patient does state that he has increased painwhen bearing down and with flexion of the abdomen. Musculoskeletal Cervical back: Normal range of motion and neck supple. Lymphadenopathy Cervical: No cervical adenopathy. Skin General: Skin is warm and dry. Neurological Mental Status: He is alert. ASSESSMENT / PLAN #1 Pain Abdominal Wall Discussed with patient that I have concerns for abdominal wall pain based on physical exam findings.Discussed my treatment plan recommendations with consideration for chronic abdominal wall pain. Did share that this may potentially be caused by patient nerve but further evaluation would be warranted to 2 truly diagnosed however could treat as such did discuss management with proper use of ibuprofen Tylenol as well as heat and cold therapy with barrier. Recommend lidocaine patch in it was prescribed. Discussed proper use possible side effects. Consideration for trigger point injections and after consulting with his primary care provider agree with physical medicine rehabilitation order placed. Contact the patient let him know that this was placed in the patient at that point in time shared with me that he has had trigger point injections and cortisone injections of his shoulder and they never work. The patient during the visit and on the telephone shared with me that the Percocet does work and will help him sleep. Did have a tho discussion with patient regarding benefits of ibuprofen and Tylenol and studies that show that they are somewhat similar and effectiveness as hydrocodone oxycodone however the patient did share with me initially that he cannot take ibuprofen. Later on in after calling the patient did discussed referral to physical medicine he shares me that he was indeed taking 800 mg of ibuprofen again he shares that nothing seems work other than Percocet. Patient is not very receptive to trial of lidocaine patch and/or trigger point injections of the abdomen however these orders were placed. I did communicate with patient's primary care provider shortly after the appointment t o further ask about the GI follow-up which the primary care provider shares has been put in place that the patient will be notified to schedule this however this may take some time. The primary care provider as well as myself both agree with referral to physical medicine for possible trigger point injections. Multiple times during the visit patient did reiterate that none of the options that I had addressed to help with pain management would be beneficial in the his solution would be Percocet. Did discuss that after the [place] prescription database patient has had multiple narcotics over the last several months and has had discussion with primary care provider regarding no longer being prescribed. I did discuss again risks and rewards and will not be filling a prescription for any narcotics oropiates. More rationalization was Share with the patient. Patient shared with me multiple times thathe does not abuse narcotics or opiates and not a drug seeker but that he does need something to helpwith his pain and help him sleep. Patient did not seem to satisfied with the treatment plan that hadbeen given however I did answer patient's questions. Patient ultimately did agree with plan and I tried to answer all these questions to the best my ability. Greater than 35 minutes of time spent [id number] and non [id number] coordinating care and counseling as indicated left above. Daniel Raza PA-C documented in this encounter Plan of Treatment Scheduled Referrals Name Type Priority Associated Order Schedule Diagnoses Physical Medicine and Outpatient Referral Routine Pain Abdomin al Expected: Rehabilitation - Wall 08/01/2021 General consult (Approximate ), (clinic) Expires: 08/01/2024 documented as of this encounter Visit Diagnoses Diagnosis Pain Abdominal Wall - Primary documented in this encounter Additional Health Concerns Assessment Noted Time PHQ-9 Depression Total Score: 16 12/29/2019 7:41 AM CD T documented as of this encounter Care Teams Resource Management Planner Relationship Specialty Start Date End Date Anthony Carpenter, ELA, C.N.P., PCP - General Family Medicine M.S.N. [address] [place] [phone] documented as of this encounter
--- OUTSIDE RECORDS SUMMARY | 2022-08-19 06:51 | XMS_ITS | Encounter Summary ---
:1975 Author Organization [facility] Address [address] [place] [address] Care Team Providers Name Role Phone Jayden Anthony Zuñiga APRN C.N.P., M.S.N. Primary Care Provider + Reason for Visit Reason Comments Animal Bite Encounter Details Date Type Department Care Team Description 12/25/2020 Nurse Triage Department of Marilyn Hogan , Animal Bite Medicine, [facility], R.N. in [address] [place] [address] [place] [address] [phone] Social History Tobacco Use Types Packs/Day Years [...] you attend mormonism or Patient refused 2020 caodaism services? Do you belong to any clubs [...] to pay for the very basics like [employer] hat hard 07/17/2021 food, housing, medical care, [...] this encounter Miscellaneous Notes Telephone Encounter - Marilyn Marroquin R.N. - 12/25/2020 12:40 PM CDT Chief Complaint / Reason for Call Patient is a 45 y.o. male calling regarding Animal Bite. Assessment Concern: Patient states that he was in the ER last night, patient states the wound is increased, still bleeding states it is bleeding right now. Patient states that he has pressure on it right now, states that he is going to need stitches. Patient states that finger is starting to smell Present for: today Home cares tried: applying direct pressure Calling to request: appointment The recommended disposition is Go to ED Now. Reason for Disposition ??? [1] Bleeding AND [2] won't stop after 10 minutes of direct pressure (using correct technique) Protocols used: ANIMAL [id number] Care Advice Patient/Caregiver understands and will follow care advice?: Yes, able to teach back GO TO ED NOW: * You need to be seen in the Emergency Department. * Go to the ED at closest Hospital. * Leave now. Drive carefully. documented in this encounter Plan of Treatment Not on filedocumented as of this encounter Visit Diagnoses Not on filedocumented in this encounter Additional Health Concerns Assessment Noted Time PHQ-9 Depression Total Score: 16 12/29/2019 7:41 AM CD T documented as of this encounter Care Teams Architectural Design Professor Relationship Specialty Start Date End Date Anthony Carpenter, BRIM PLATER, C.N.P., PCP - General Family Medicine M.S.N. [address] [phone] documented as of this encounter
--- OUTSIDE RECORDS SUMMARY | 2022-08-19 06:51 | XMS_ITS | Encounter Summary ---
:1975 Author Organization [facility] Address [address] [place] [address] Care Team Providers Name Role Phone Jayden Anthony Zuñiga APRN C.N.P., M.S.N. Primary Care Provider + Encounter Details Date Type Department Care Team Description 12/31/2020 Hospital Encounter Department of Mak, Anyi Cruz, [facility] El [facility] [address] [place] [phone] Social History Tobacco Use Types Packs/Day Years [...] or relatives? How often do you attend oriental orthodox or Patient refused 2020 sabianist services? Do you belong to any clubs or No 07/17/2021 organizations such as oriental orthodox groups, unions, fraternal or athletic groups, or [...] to pay for the very basics like [employer] hat hard 07/17/2021 food, housing, medical care, [...] highest level of school Associate degree: jacki alber, 06/29/2019 you have completed or the highest [...] muscle spasms. dextroamphetamine-amphetam Take 1 tablet (10 58 tablet 0 03/08/2021 ine (AdderalL) 10 mg mg total) by mouth tablet 2 (two) times a day. documented as of this encounter Plan of Treatment Not on filedocumented as of this encounter Procedures Procedure Name Priority Date/Time Associated Comments Diagnosis DX ELBOW LEFT 3+ RAD - Routine 12/31/2020 9:41 Pain Elbow Left Resu lts for this VIEWS (most inpatients AM CDT procedure a re in and all the results outpatients) section. documented in this encounter Results DX Elbow Left 3+ Views (12/31/2020 9:41 AM CDT) Anatomical Region Laterality Modality Upper Extremity, Elbow, Musculoskeletal RST LOS, Left Digital Radiography Musculoskeletal ARZ LOS, Muskuloskeletal FLA LOS Specimen (Source) Anatomical Collection Method Collection Time Re ceived Time Location / / Volume Laterality 12/31/2020 9:51 AM CDT Impressions 12/31/2020 9:53 AM CDT No large elbow joint effusion. No discrete fracture lucency. Normal alignment. Mild degenerative change. If pain persists consider follow-up imaging. Narrative 12/31/2020 9:53 AM CDT EXAM: DX ELBOW LEFT 3+ VIEWS Procedure Note Vashti Nickerson M.D. - 12/31/2020Form atting of this note might be different from the original. EXAM: DX ELBOW LEFT 3+ VIEWS IMPRESSION: No large elbow joint effusion. No discre te fracture lucency. Normal alignment. Mild degenerative change. If pain persists consider follow-up imaging. [facility]ON[facility] documented in this encounter Visit Diagnoses Diagnosis Pain Elbow Left documented in this encounter Additional Health Concerns Assessment Noted Time PHQ-9 Depression Total Score: 16 12/29/2019 7:41 AM CD T documented as of this encounter Care Teams Tank Refinisher Relationship Specialty Start Date End Date Anthony Carpenter, ELA, C.N.P., PCP - General Family Medicine M.S.N. [address] [phone] documented as of this encounter
--- OUTSIDE RECORDS SUMMARY | 2022-08-19 06:51 | XMS_ITS | Encounter Summary ---
:1975 Author Organization [facility] Address [address] [place] [address] Care Team Providers Name Role Phone Anthony Carpenter APRN C.N.P., M.S.N. Primary Care Provider + Reason for Referral Outpatient (Routine) - Closed Specialty Diagnoses / Procedures Referred By Contact Refer red To Contact Diagnoses Pain Shoulder Left Adrián Jackson [facility] Procedures ECG [address] [place] [address] Referral ID Status Reason Start Date Expiration Date Visits Requ ested Visits Authorized [id number] Closed 07/05/2021 07/05/2022 1 1 Reason for Visit Reason Comments Shoulder Pain left shoulder -feels like he tore it again-burning and stabbing pain x 1 week Appointment Request (Routine) - Closed Specialty Diagnoses / Procedures Referred By Contact Refer red To Contact Family Medicine Referral ID Status Reason Start Date Expiration Date Visits Requ ested Visits Authorized [id number] Closed 07/05/2021 07/05/2022 1 1 Encounter Details Date Type Department Care Team Description 07/05/2021 Office Visit Department of Dago Melgoza Pain Shoulder Left Medicine, [place] [address] [facility] (Primary Dx[facility], in [facility] [id number] [address] [phone] [place], [place] ([place]) [phone] Social History Tobacco Use Types Packs/Day [...] you attend episcopalian or Patient refused 2020 sikhism services? Do [...] Sign Reading Time Taken Comments Blood Pressure 136/87 07/05/2021 9:41 AM CDT Pulse 73 07/05/2021 9:35 AM CDT Temperature 36.4 ??C (97.5 ??F) 07/05/2021 9:35 AM CDT Respiratory Rate 16 07/05/2021 9:35 AM CDT Oxygen Saturation - - Inhaled Oxygen Concentration - - Weight 65.8 kg (145 lb 1 oz) 07/05/2021 9:35 AM CDT Height - - Body Mass Index 24.64 04/03/2021 9:16 AM CDT documented in this encounter Patient Instructions Patient InstructionsAdrián Jackson - 07/05/2021 10:00 AM CDT Images from the original note were not included. Patient was given the following discharge information. Here is your discharge information. On behalf of our department, I would like to take a moment to thank you Alon for giving us this opportunity to care for you today. We are incredibly thankful for trusting us for your treatment and giving us the chance to take care of you today. The shoulder x-rays negative. Shows arthritis. Take pain medication prescribed pain. If symptoms do not improve return for re-evaluation. Patient Education Arthritis: Caring for Your Joints This information provides general guidelines you can use to limit stress on your joints and protect them from damage when you have arthritis. It offers suggestions for changing your daily activities and using adaptive equipment to ease pain and stiffness. Taking these steps can help you manage your arthritis and allow you to be as active and independent as possible. Use the guidelines and exercises in this material at home after a health care provider has gone overthem with you. If you have questions after you read this information, please contact your health care provider. Another resource that offers more information and education about arthritis is the [employer]. You can find local offices listed on the organization???s web site or by calling the Ar[employer] Helpline. Arthritis Osteoarthritis and rheumatoid arthritis are the two most common forms of arthritis. Osteoarthritis Osteoarthritis is sometimes called ptjm-yhs-ocrd arthritis or degenerative joint disease. It happenswhen the protective cartilage on the ends of your bones wears down over time. Symptoms When a joint becomes swollen due to osteoarthritis, it loses flexibility. If you have osteoarthritis, you may experience pain, aching and stiffness in a joint during or after use. You may also have joint stiffness if you are not active for a long period of time. Joint discomfort before or during a change in weather is also common. Over time, osteoarthritis may lead to joint deformity, including: ?? [place]???s node - a bony growth that forms at the end joint of the finger. ?? Elvis???s node - a bony growth that forms at the middle joint of the finger. See Figure 1. Rheumatoid arthritis Rheumatoid arthritis is an autoimmune disease. That means antibodies in your body that normally fight infection attack your body???s tissues instead, causing inflammation. Inflammation in your joints often leads to stiffness, fatigue and pain. Rheumatoid arthritis often affects more than one joint at a time on both sides of the body. Unlike osteoarthritis, which affects only the joints, rheumatoid arthritis can affect other organs in your body, too. Symptoms Rheumatoid arthritis is marked by periods of flares and remissions. During flares, joints become swollen, stiff, painful and warm to the touch. You may experience: ?? Morning stiffness. ?? Loss of appetite. ?? Weight loss. ?? Fatigue. ?? Low-grade fever. During periods of remission, your symptoms may improve. Your lifestyle and the medications you take have an effect on how long remission lasts and how often you have flares. In some cases, rheumatoid arthritis may lead to deformities in your hand, including: ?? Ulnar deviation -- the fingers drift toward the little finger. See Figure 2. ?? [place] neck -- the middle finger joint collapses and the end joint flexes or bends downward. See Figure 3. [place] neck can make it hard for you to grasp objects. ?? Subluxation -- a bone is no longer in alignment with another bone that forms a joint. See Figure 4. ?? Boutonniere -- bending of the middle joint of a finger and hyperextension of the end joint. See Figure 5. This deformity can become fused and keep you from straightening your finger. Basic Steps to Protect Your Joints The following general guidelines may help protect your joints as you do your daily activities. Recognize overuse pain. Learn to recognize the difference between the general discomfort of arthritis and pain from overuse of a joint. Overuse may cause arthritis to flare. Painful, swollen joints are more likely to be damaged. If pain lasts more than an hour after an activity or exercise, or if an activity or exercise causes joint swelling, the activity was too stressful. If that happens, consider the following questions: ?? What were you doing that used the painful joints? ?? What position were you in? ?? How long did you do the activity? ?? Was the task heavy or forceful? ?? In what order did you do your activities? The next time you do the same activity, change one of these variables. Change them one at a time until you learn what and how much your joint can do before you have overuse pain or swelling. Do not use your hands in ways that make pain or inflammation worse. Avoid or change activities that push your middle fingers toward your little finger. For example, avoid using a tight fist or tightly pinching an object against your index finger. Doing so can cause pain and increase your risk of a deformity called ulnar deviation. See Figure 2. Try these tips: ?? Use large or built-up handles to grasp objects more easily. See Figure 6. ?? Hold objects with an open hand and curved fingers. See Figure 7. ?? Do not rest your head in your hands or on your knuckles. ?? Adjust activities that require excessive pressure, such as turning a water faucet on and off by using the palm of your hand rather than your fingertips. If possible, install automatic or lever faucets rather than knobs. ?? Use a sponge in an open hand when you wash dishes, wash your car, and wipe counters and windows. Use an open hand to press water out of a sponge. ?? To shake hands, let the person you greet extend his or her hand first. Then grasp the person???s fingertips, thumb or forearm. Or, take his or her hand between both of yours. ?? To turn a round doorknob, hold your arm parallel to the door and use a wrist or forearm motion. See Figure 8. ?? If possible, install lever door handles in your home to lower stress on your hand joints when youopen doors. ?? Use luggage or a backpack with wheels and extended handles. You also can use a lightweight cart to transport luggage. Use good body mechanics. If you position yourself correctly and use the muscles best suited to a task, you can cause less stress on your joints. Proper body mechanics allow you to use your body more efficiently. Daily tasks. Slide objects along a counter or workbench rather than lift them. When you carry bags from a store, divide your groceries or other items into several bags to evenly distribute the weight. To reach a lower surface, sit on a chair, place your forearm over your knees, then bend over. To pickup items from the floor or a low shelf, squat or use a half-kneeling position. Around the house. Use surfaces that allow you to work comfortably without having to stoop or raise your shoulders while you stand. Increase the height of chairs and toilet seats to cause less stress onyour hips and knees as you sit and stand. Sitting to standing. Slide your body forward in your chair to move from a sitting to a standing position. Do not move your feet forward. Lean forward so your weight is over the balls of your feet. Use your legs to stand up. If necessary, use your forearms or palms to help as you push. See Figure 9. Use the strongest joint for the job. Large joints are stronger than small ones. Save your smaller joints for jobs that only they can do. Use your large joints as much as possible. For example: ?? Support items you carry with your forearms. Distribute the weight between your arms and body. SeeFigure 10. ?? Carry groceries against your body in a paper bag. Don???t carry them in a plastic bag hanging from your fingers. If you use plastic bags, place the handle on your forearm, and carry one bag at a time. ?? Place a shoulder strap bag over your head with the strap lying diagonally across your back and chest. Move often. Your joints can become stiff if you keep them in the same position for too long. When you write, drive or work on crafts, relax your dice manager every 10 to 15 minutes. On long car trips, get out of the car to stretch and walk at least every 60 to 90 minutes. When you watch television or use a computer, get up and move around every 30 minutes. Conserve your energy. Plan your days so you have the energy to do what you need to without putting extra stress on your joints. These steps can help: ?? Get balanced periods of rest and activity during the day. ?? Spread heavier chores such as cleaning, laundry and yard work throughout the week. ?? Work at a steady, moderate pace with frequent short breaks. ?? Rest before you become tired or sore. ?? Alternate light and moderate activities throughout the day. What you consider light or moderate may vary each day. It depends on your pain. ?? Alternate when you sit and stand. This causes less stress on your hips, knees and back. ?? Get help for some work and, when possible, ask others to do strenuous work. Dressing, Grooming and Bathing When you dress, groom and bathe, give yourself extra time, so you are not rushed. Follow these guidelines to help protect your joints. Choose loose-fitting clothes that are comfortable and easy to manage. ?? Wear clothing with front openings and egdp-gw-ntkdar fasteners, such as zippers with large tabs, large buttons, Velcro??? or large hooks. ?? Avoid tight collars. V-neck and scoop neck shirts are easier to manage. ?? Select clothing made from stretch fabrics. ?? Use slip-on shoes, elastic shoelaces, or shoes with Velcro??? closures. ?? Wear a loosely knotted tie and slip the tie over your head. ?? If pulling clothing over your head is difficult, choose garments you can step into or try wrap-around garments. ?? Wear lightweight jackets or lightweight down or fiber-filled coats in the winter. Velcro??? closures are easiest to manage. If slipping your arms into coat sleeves is difficult, try a cape or poncho. Use aids to help you dress. ?? Use a button aid to fasten small buttons. See Figure 11. ?? Attach shirt cuff buttons with elasticized thread. This allows the cuff to stretch so you can slip a hand through without unbuttoning it. ?? Use a zipper pull, townsend ring, large zipper ring or a loop of fish line at the end of a zipper to make it easier to zip and unzip clothing. ?? Use a long-handled shoehorn or small footstool to help you reach your feet. See Figure 12. ?? Use a stocking aid to put on your socks if you have difficulty reaching your feet. See Figure 13. Take steps to make dressing easier. ?? When you dress, insert your weakest limb or the limb with the least range of motion first. Undress that limb last. ?? Fasten a back-closing bra in the front at your waist, then turn it around and pull into place. Women may find that front-closing bras or sports bras are easier to manage. To help your bra slide intoplace more easily, apply powder on and under your breasts after you bathe. ?? Thread your belt through the belt loops before you put on your pants. Try these tips for simpler grooming. ?? Select a hairstyle that needs minimal care. ?? Use lightweight electrical appliances for hair care. ?? Rest your elbow on a counter or table when you comb your hair or shave. ?? Use long-handled brushes and salcido with adjustable handles. See Figure 14. ?? Use pump dispensers for soap and toothpaste. ?? Use an electric razor or add a larger dice manager to the handle of a razor. ?? Use large or long handles on makeup applicators and lipstick tubes. ?? Use a large-handled toothbrush, build the handle up using foam tubing, or use an electric toothbrush instead. See Figure 15. Make bathing less stressful. To ease stress on your joints when you bathe, consider adding a bath bench or shower chair and grab bars in your shower or bath tub. Bathing aids such as long-handled sponges and brushes can help you reach parts of your body that you cannot reach easily. Consider using a nylon mesh body sponge, ratherthan a washcloth. It is easier to dice manager. Use pump dispensers for soap and shampoo. Kitchen and Storage Areas You can take a variety of steps to make the work you do in your kitchen and storage areas easier on your joints. Get organized. Organize these areas so items you use often are easy to reach. Place tools, cookware and small appliances near where they are used. If you have heavy items you use often, store them in cabinets or on shelves located between your mid- thigh and shoulder height, so they are easier to lift. If possible, install turntables and pull-out shelves in cabinets. Use the right tools. Try lightweight, non-stick pans for easier lifting and cleaning. Buy an adaptive cutting board that has food guards and small spikes to keep food secure while you cut it. Knives with offset hand contour band saw operator vertical and serrated edges are easier on your joints than other kinds of knives. See Figure 16. Try an electric knife to make it easier to cut through large items, such as a roast. Install a jar adult care provider in your kitchen to help you open tight covers. See Figure 17. Or use an electric jar adult care provider. Try [employer] Pop??? food storage containers (or a similar generic version) that have a push-button you can use to open and close them. See Figure 18. Check handles. Add foam tubing to utensils and wooden spoons to increase the size of the handle. SeeFigure 19. Use a davion with a large-circumference handle rather than a knife when you prepare fruitand vegetables. Use large handles or long handles with surfaces made of rubberized material. These can improve your grasp and make up for the range of motion your have lost in your joints. Choose foods that take less work. When you shop for groceries, consider buying items such as bagged lettuce, chopped walnuts, cut fruit and packaged pie crusts that need less preparation once you get home. Home Projects and Yard Work These guidelines can be helpful when you work on home projects and yard maintenance. In your workshop ?? Use electric drills, power saws and electric screwdrivers, rather than manual tools. ?? Use sawhorses or a workbench to raise your project to a comfortable height. ?? Change positions often and take frequent breaks. Around the garden ?? Use a garden wagon or garden cart with two front wheels rather than a wheelbarrow. Do not overload the cart. ?? Garden with indoor or patio plants. ?? Consider a raised garden bed. ?? When you weed, position yourself comfortably on a stool and use long-handled tools. ?? [place] after a rain. Or to make weeds easier to pull out, water your garden the night before you weed. In the yard ?? Try a self-propelled, walk-behind driver trainee. ?? Take a break from the lawn tractor every 30 minutes to stretch and change positions. ?? Move heavy items with a utility cart. Cleaning Cleaning can be hard on your joints if you are not careful. Consider these tips to make cleaning more manageable. Keep supplies close. Store cleaning supplies in the areas where you use them. Clean one area or roomat a time to make fewer trips from room to room and up and down stairs. Avoid bending and stooping. Use long-handled mops, dustpans and brooms when you clean floors. Stand up straight and walk forward and back with your vacuum filter cleaner. Do not bend forward or move the vacuum filter cleaner with your arm. To vacuum under a table, kneel down rather than bend over. If you cannot kneel down, then sit down on a chair. If possible, raise your front-loading washer and dryer for easier access. Do not twist. Take short strokes when you sweep. Avoid twisting. Your feet should face the same direction as your chest when you sweep. Desk and Computer Work When you work at a desk, always use good lighting and correct posture. Adjust your chair height so you can sit comfortably without raising your shoulders when you rest your arms on the table. Use a footrest if your need it, based on your height and the height of your desk. As you work, take a moment to relax your hand and neck muscles every 15 to 30 minutes. Writing. Push writing materials forward or place them on your desk so you can work comfortably without bending your neck. For less discomfort, write with a larger barrel pen or use a pen dice manager or spongeroller to enlarge the barrel. See Figure 20. Nylon tip, felt tip, rolling ball or gel ink pens permit easier gliding and require less pressure than do pencils and ballpoint pens. Try writing on a slanted surface, so you do not need to bend forward or flex your neck. Reading. When you read, use open hands or a bookholder to support your book. See Figure 21. You alsomay place your book on a lapboard or table so you do not have to hold it for a long period of time. Reading with a tablet or an electronic reader can ease stress on your hands. Technology. A range of adaptive equipment can make computers, electronic tablets and mobile devices easier to use when you have arthritis. This technology changes rapidly, so ask your therapist to showyou what???s available now. Hobbies and Recreation You can still enjoy many hobbies and recreational activities when you have arthritis. Some activities, such as knitting, crocheting or creating a scrapbook, may keep your joints in one position for a long period of time. If so, then limit the length of time you spend on those activities in one sitting. Consider setting a timer every 30 minutes to remind you to take a break and stretch your wrists andhands. This lowers your risk of joint pain and stiffness. Crafts. If you sew or do other craft work where you frequently use scissors, buy a spring- loaded pair for easier cutting. If you paint, decorate ceramics, draw or have other hobbies that use paintbrushes, pencils or pens, build up the handles, so they don???t require a tight dice manager. Cards. Use a cardholder and a card shuffler for help when you play cards. See Figure 22. Outdoor activities. When you fish, use a patti hayes or a built-up handle on your reel. When you golf, use a golf cart and golf clubs with enlarged contour band saw operator vertical to minimize discomfort. If you have other hobbies or recreational activities, and you are not sure how to manage them with arthritis, talk to your therapist. He or she may have suggestions for how you can modify your activityand continue to take part in the hobbies you enjoy. Splints and Tape To help manage arthritis that has affected your hand, your health care provider may prescribe a splint. A splint is sometimes called an orthosis. A splint helps rest your joints and lower your pain. Your therapist can talk with you about the specific reasons for your splint. He or she also can show you how to wear the splint, talk with you abouthow often you need it, and give you care instructions for it. Prolonged pain and inflammation that do not respond to treatment may damage bones, cartilage, tendons and ligaments. And it may increase the potential for joint deformity. A splint can help slow the formation of joint deformities and provide pain relief by supporting the hand and wrist in a neutral position. Morning stiffness is typical of arthritis. Wearing a splint overnight rests your hand but may lead to more stiffness. To help, try a hot pack, contrast bath or paraffin bath in the morning, along with exercises to ease stiffness. For details, please see the section ???Pain Relief at Home.?? Your health care provider also may recommend Kinesio Tape???, a type of elastic therapeutic tape, tohelp ease pain and stiffness. If it is right for your situation, your therapist will apply the tape for you and give you the directions you need for it. Exercise Exercise is important for people with arthritis. It increases strength and flexibility, reduces joint pain and helps fight fatigue. In most cases, low- impact exercises are best, such as: ?? Biking. ?? Swimming. ?? Using an elliptical green jobs trainer. ?? Taking part in yoga, agustin chi or Pilates. Although walking is a low-impact exercise, too much walking -- especially if you are overweight -- can be hard on your joints. Avoid high-impact activities where your feet leave the ground, such as running. High- impact exercise programs that involve heavy lifting and other high- intensity activities can be hard on your skeleton. In most cases, people with arthritis should not participate in these programs. If you have questions, please talk with your health care provider. Include strength and flexibility exercises in your routines, too. Stretching, yoga, Pilates and agustin chi all can work well. Before you start an exercise program, talk with your health care provider or therapist about the exercises that are right for you. Follow these guidelines when you exercise: ?? Move each joint through its full pain-free range of motion at least once a day. This pain-free range may be different each day. ?? Do not over-exercise or push yourself when your joints are painful or swollen. ?? Work daily tasks into your exercise program. For example, lift light objects from the floor or from the highest shelf you can reach comfortably. Hand Exercises The hand exercises listed in this section may help you maintain or increase the range of motion of the joints in your hand. You should only do the exercises your therapist recommends for you. These exercises and activities should not cause pain. If you have pain while you do any of these exercises, stop right away. Relax and repeat the exercise with less speed and intensity. If pain continues, stop the exercise and talk with your health care provider. Repeat each exercise times, times a day. Do each exercise slowly and smoothly.Hold the position for 5 seconds. Relax and repeat. Claw. Bend and straighten the end and middle joints of your fingers while keeping the big knuckles straight. See Figure 23. Finger extension and flexion. Make a loose fist by touching your fingertips to your palm and your thumb to the back of your middle finger. Keep your fingers together. See Figure 24. Finger opposition. Make an ???O?? by touching your thumb to each fingertip. See Figure 25. Radial finger walking. Rest your hand on a table with your palm down. Move your thumb away from yourhand. Move each finger, one at a time, toward your thumb. See Figure 26. Thumb stabilization. Curve fingers in to a ???C?? and gently tighten the hand in that position. Then lift your index finger up off the rest of your fingers. See Figure 27. Pain Relief at Home When your joints get sore or stiff, a contrast bath, paraffin bath or hot packs may provide some relief. You can use any of these techniques at home. If you have questions, please ask your health care provider or therapist. Contrast bath A contrast bath alternates between hot and cold water. It can help relax your muscles and lower painin your hands or feet. If you soak your hands and feet in hot water only, they may swell. But alternating hot and cold soaks may help prevent swelling. You can use a contrast bath once or twice a day, as needed. Try doing your hand exercises while your hands are in the hot water. Important: A contrast bath should not be painful. If you have pain at any time, stop right away. Depending on which part of the bath is painful, either cool the hot water or warm the cool water by several degrees and continue. If pain persists, stop doing the baths and talk with your health care provider. Preparation To prepare a contrast bath: 1. Fill one large container with hot water at approximately 110 degrees Fahrenheit, 43.3 degrees Celsius. 2. Fill another large container with cold water at approximately 65 degrees Fahrenheit, 18.3 degreesCelsius. Put enough water in each container to reach your wrist or ankle. To prevent caal, use a thermometer to measure the temperature of the water before you put your hands or feet in the bath. Schedule Always begin and end a contrast bath in hot water. Place your hand or foot in the hot water and thenthe cold water, according to the following schedule. Paraffin bath You can use a paraffin bath to provide heat to the joints of your hands or feet. See Figure 28. Electric home paraffin baths are available in many retail stores. They heat paraffin wax with mineral oiladded to it. The mineral oil in the wax is needed to prevent the wax from getting too hot. Do not use a paraffin bath if you have an open wound or sore, if you have numbness or swelling on your hand or foot, or if you have the blood-clotting disorder hemophilia. Procedure 1. Remove all jewelry from the area to be bathed. 2. Wash and dry the area to be bathed. 3. Relax the area to be bathed, and immerse it slowly into the warm paraffin wax. 4. Take your hand or foot out of the wax, allowing a layer of wax to form on it. 5. Repeat the dipping process 8 to 10 times until a thick paraffin coating forms. 6. Place your hand or foot in a plastic bag, plastic wrap or wax paper. 7. Wrap your hand or foot in towels for about 10 minutes to keep the heat in. Once the treatment is complete, peeling the wax off leaves a mineral oil base. This is ideal for providing massage to the area. You also can do stretches or exercises while the area is still warm. Note: If you place the used wax back in the warmer to use it again, there will be less mineral oil in the mixture. Over time, the wax will become too hot and sticky to use comfortably. You can purchaseadditional wax where you bought your paraffin bath. You can also add mineral oil to the wax occasionally to maintain the right amount of mineral oil to paraffin. The amount you need of paraffin to mineral oil is 6 parts paraffin to 1 part mineral oil. You can get burned if you use the wax without mineral oil. Hot packs Microwaveable warming mitts, muffs and slippers you can use for pain relief are available in retail stores. Follow the computer systems manager???s instructions. Do not use a hot pack if you have decreased sensitivity, inflammation or swelling in the painful area. This material is for your education and information only. This content does not replace medical advice, diagnosis or treatment. New medical research may change this information. If you have questions about a medical condition, always talk with your health care provider. ? 2017 [employer] ([employer]). All rights reserved. [id number] documented in this encounter Progress Notes Adrián Jackson - 07/05/2021 10:00 AM CDT Images from the original note were not included. CHIEF COMPLAINT / REASON FOR VISIT Shoulder Pain (left shoulder -feels like he tore it again-burning and stabbing pain x 1 week ). HISTORY OF PRESENT ILLNESS Alon Jaimes is a 45 y.o. male who presents for evaluation of Shoulder Pain (left shoulder -feels like he tore it again-burning and stabbing pain x 1 week ) Patient presents for evaluation of left shoulder pain endorses stabbing burning sensation which started a week ago with occasional radiation into his arm. Denies trauma, denies neck pain, denies shortness breath, denies chest pain, denies dizziness, diaphoresis, fever or chills. Pain is aggravated by shoulder movement. Patient was seen yesterday and prescribed oxycodone for shoulder pain which he hasnot taken. The following portions of the patient's history were reviewed: medical history and problem list. No past medical history on file. Past Surgical History: Procedure Laterality Date ??? CLOSURE OF SKIN BY SUTURE N/A 05/28/2007 Closure of Skin and Subcutaneous Tissue Other Sites ??? DECOMPRESSION OF MEDIAN NERVE N/A 05/30/2013 Carpal tunnel release ??? ROTATOR CUFF REPAIR Left 04/28/2018 ??? SHOULDER ARTHROSCOPY W/ SUPERIOR LABRAL ANTERIOR POSTERIOR REPAIR Left 04/28/2018 Current Outpatient Medications Medication Sig ??? acetaminophen (for_TYLENOL) 500 mg tablet Take 1,000 mg by mouth. ??? albuterol inhaler Inhale 2 puffs every 4 (four) hours as needed for wheezing or shortness of breath. ??? cyclobenzaprine (FLEXERIL) 5 mg tablet Take 1 tablet (5 mg total) by mouth at bedtime as needed for muscle spasms. ??? dextroamphetamine-amphetamine (ADDERALL) 10 mg tablet Take 1 tablet (10 mg total) by mouth 2 (two) times a day. ??? hyoscyamine (LEVSIN) 0.[address] 0.125 mg under the tongue. ??? pantoprazole (PROTONIX) 40 mg EC tablet Take 40 mg twice daily for 48 days. After 48 days may decrease to 40 mg once daily for 14 days then stop. ??? [START ON 07/19/2021] dextroamphetamine-amphetamine (AdderalL) 10 mg tablet Take 1 tablet (10 mg total) by mouth 2 (two) times a day. (Patient not taking: Reported on 07/05/2021 ) ??? [START ON 08/19/2021] dextroamphetamine-amphetamine (ADDERALL) 10 mg tablet Take 1 tablet (10 mg total) by mouth 2 (two) times a day. (Patient not taking: Reported on 07/05/2021 ) ??? oxyCODONE-acetaminophen (PERCOCET) 5-325 mg per tablet Take 1 tablet by mouth every 4 (four) hours as needed for severe pain or score 7-10 of 10 Indication: acute pain. (Patient not taking: Reported on 07/05/2021 ) Allergies Allergen Reactions ??? Gadolinium-Containing Contrast Media Rash ??? Adhesive Tape-Silicones Other (see comments) ??? Ketorolac Other (see comments) and Itching Cerner listed no reactions ??? Latex Other (see comments) Cerner listed no reactions ??? Penicillins Other (see comments) and GI intolerance Cerner listed no reactions ??? Tramadol Rash Social History Socioeconomic History ??? Marital status: Spouse name: None ??? Number of children: None ??? Years of education: None ??? Highest education level: Associate degree: occupational, technical, or vocational program Occupational History Employer: [email or web address] Tobacco Use ??? Smoking status: Never Smoker ??? Smokeless tobacco: Current User Types: Chew ??? Tobacco comment: 1 can per week. Advised to quit Vaping Use ??? Vaping Use: never used Substance and Sexual Activity ??? Alcohol use: No ??? Drug use: No ??? Sexual activity: Defer Other Topics Concern ??? None Social History Narrative ??? None Social Determinants of Health Financial Resource Strain: ??? Difficulty of Paying Living Expenses: Food Insecurity: ??? Worried About Running Out of Food in the Last Year: ??? Ran Out of Food in the Last Year: Transportation Needs: ??? Lack of Transportation (Medical): ??? Lack of Transportation (Non-Medical): Physical Activity: ??? Days of Exercise per Week: ??? Minutes of Exercise per Session: Stress: ??? Feeling of Stress : Social Connections: ??? Frequency of Communication with Friends and Family: ??? Frequency of Social Gatherings with Friends and Family: ??? Attends Bahai Services: ??? Active Member of Clubs or Organizations: ??? Attends Club or Organization Meetings: ??? Marital Status: Intimate Partner Violence: ??? Fear of Current or Ex-Partner: ??? Emotionally Abused: ??? Physically Abused: ??? Sexually Abused: REVIEW OF SYSTEMS Please see HPI for pertinent positives and negatives OBJECTIVE PHYSICAL EXAMINATION: BP 136/87 (BP Location: Right arm, Patient Position: Sitting, Cuff Size: Regular) Pulse 73 Temp 36.4 ??C (Temporal) Resp 16 Wt 65.8 kg BMI 24.64 kg/m?? Body mass index is 24.64 kg/m??.Wt 65.8kg Physical Exam General: Awake, and alert male. General appearance: Alert and orientated Eyes: Conjunctivae are clear without exudates. Neck: No midline tenderness. Heart: Heart rate and rhythm are normal. Respiratory: Lung sounds are clear in all lobes without wheezes. Musculoskeletal: Left shoulder upper extremity is neurovascularly intact with normal sensation. Radial and Ulna pulses intact. Patient has discomfort with adduction of the upper extremity. Bilateral strength is equal 5/5. Shoulders have normal alignment. Healed surgical scar left shoulder. Skin: Warm and dry. DIAGNOSTICS Results for orders placed or performed in visit on 07/05/21 CBC with Differential, Blood Result Value Ref Range Hemoglobin 15.0 13.2 - 16.6 g/dL Hematocrit 44.5 38.3 - 48.6 % Erythrocytes 4.85 4.35 - 5.65 x10(12)/L MCV 91.8 78.2 - 97.9 fL RBC Distrib Width 12.8 11.8 - 14.5 % Platelet Count 248 135 - 317 x10(9)/L Leukocytes 5.4 3.4 - 9.6 x10(9)/L Neutrophils 3.60 1.56 - 6.45 x10(9)/L Lymphocytes 1.13 0.95 - 3.07 x10(9)/L Monocytes 0.59 0.26 - 0.81 x10(9)/L Eosinophils 0.04 0.03 - 0.48 x10(9)/L Basophils 0.02 0.01 - 0.08 x10(9)/L Basic Metabolic Panel Result Value Ref Range Potassium, P 4.1 3.6 - 5.2 mmol/L Sodium, P 138 135 - 145 mmol/L Chloride, P 102 98 - 107 mmol/L Bicarbonate, P 29 22 - 29 mmol/L Anion Gap, P 7 7 - 15 BUN (Blood Urea Nitrogen), P 14 8 - 24 mg/dL Creatinine, P 0.85 0.74 - 1.35 mg/dL eGFR-Black/ >90 >=60 mL/min/BSA eGFR Non-Black/ >90 >=60 mL/min/BSA Calcium, Total, P 9.2 8.6 - 10.0 mg/dL Glucose, P 98 70 - 140 mg/dL [facility] STAT Test 1 Result Value Ref Range Test Name TROPONIN I Result See Scanned Report ECG 12 Lead Result Value Ref Range Ventricular Rate ECG/Min 76 BPM PA Interval 142 ms QRSD Interval 96 ms QT Interval 372 ms QTC Interval 418 ms P [place] 68 degrees R [place] 74 degrees T Wave [place] 57 degrees DX SHOULDER LEFT 2+ VIEWS ?? IMPRESSION: Mild glenohumeral and AC joint arthritis. Irregularities involving the greater tuberosity may be postsurgical. Changes of biceps tenodesis. ASSESSMENT / PLAN #1 Pain Shoulder Left - DX Shoulder Left 2+ Views; Future; Expected date: 07/05/2021 - ECG 12 Lead - CBC with Differential, Blood - Basic Metabolic Panel Other orders - [facility] STAT Test 1 Plan and decision making Patient's visit objective: This were the patient's need for their care and what they would like to accomplish during this encounter evaluation of left shoulder pain and a stabbing burning sensation which started a week ago with occasional radiation into his arm. Today's workup does not suggest evidence of ischemic pathology as evidenced by the EKG and cardiac enzyme. Left shoulder the x-ray suggestive of a arthritis. Recommend use [id number] medications for symptom management. Also encouraged patient to take prescription pain medications prescribed yesterday for breakthrough pain. We discussed symptoms to monitor symptoms that should prompt them to return for re-evaluation. Patient demonstrates understanding of and agreement with the plan for discharge. All questions and concerns were addressed to the best of my ability. Patient was given the following discharge information. Here is your discharge information. On behalf of our department, I would like to take a moment to thank you Alon for giving us this opportunity to care for you today. We are incredibly thankful for trusting us for your treatment and giving us the chance to take care of you today. The shoulder x-rays negative. Shows arthritis. Take pain medication prescribed pain. If symptoms do not improve return for re-evaluation. Patient Education Arthritis: Caring for Your Joints documented in this encounter Plan of Treatment Not on filedocumented as of this encounter Procedures Procedure Name Priority Date/Time Associated Diagnosis Comme nts [facility] Routine 07/05/2021 11:34 AM Res ults for this MISC STAT TEST 1 CDT procedure a re in the results section. CBC WITH Routine 07/05/2021 11:34 AM Pain Shoulder Left Re sults for this DIFFERENTIAL, B CDT procedure ar e in the results section. BASIC METABOLIC Routine 07/05/2021 11:34 AM Pain Shoulder Left Results for this PANEL, S/P CDT procedure are i n the results section. ECG Routine 07/05/2021 10:23 AM Pain Shoulder Left Re sults for this CDT procedure are i n the results section. documented in this encounter Results [facility] STAT Test 1 (07/05/2021 11:34 AM CDT) Analysis Performed At Patho logist Time Signature Test Name TROPONIN I 07/05/2021 HD01 11:44 AM CDT Result See Scanned DEFAULT 07/05/2021 HD01 Report 1:02 PM CDT Specimen Anatomical Collection Method Collection Time Receive d Time (Source) Location / / Volume Laterality Varies 07/05/2021 11:34 07/05/2021 AM CDT 11:44 AM CDT Narrative This result has an attachment that is no t available. Adrián Jackson LAB [facility] [place] ORDERABLES Performing Organization Address City/State/ZIP Code Phon e Number [facility] [address] [place] [address] [facility] [address] [place] [address] Basic Metabolic Panel (07/05/2021 11:34 AM CDT) P athologist Signature Potassium, P 4.1 3.6 - 5.2 07/05/2021 [place] mmol/L 12:04 PM CDT Sodium, P 138 135 - 145 07/05/2021 [place] mmol/L 12:04 PM CDT Chloride, P 102 98 - 107 07/05/2021 [place] mmol/L 12:04 PM CDT Bicarbonate, P 29 22 - 29 07/05/2021 [place] mmol/L 12:03 PM CDT Anion Gap, P 7 7 - 15 07/05/2021 [place] 12:04 PM CDT BUN (Blood Urea 14 8 - 24 07/05/2021 [place] Nitrogen), P mg/dL 12:03 PM CDT Creatinine 0.85 0.74 - 07/05/2021 [place] 1.35 mg/dL 12:03 PM CDT eGFR-Black/Afric >90 >=60 07/05/2021 [place] an Lao mL/min/BSA 12:03 PM CDT Comment: ----ADDITIONAL INFORMATION---- Estimated GFR calculated using the 2009 CKD_EPI creatinine equation. eGFR Non-Black/ >90 >=60 mL/min/BSA 07/05/2021 12:03 PM CDT [facility] Comment: ----ADDITIONAL INFORMATION---- Estimated GFR calculated using the 2009 CKD_EPI creatinine equation. Calcium, Total, P 9.2 8.6 - 10.0 mg/dL 07/05/2021 12:0 3 PM CDT [place] Glucose, P 98 70 - 140 mg/dL 07/05/2021 12:03 PM CDT [place] Specimen Anatomical Collection Method Collection Time Receive d Time (Source) Location / / Volume Laterality Blood (Blood, 07/05/2021 11:34 07/05/2021 Venous) AM CDT 11:44 AM CDT Adrián Jackson LAB BLOOD ADD-ON Performing Organization Address City/State/ZIP Code Phon e Number [facility] [address] [place] [address] [place] [address] System in [facility] [address] CBC with Differential, Blood (07/05/2021 11:34 AM CDT) athologist Signature Hemoglobin 15.0 13.2 - 07/05/2021 [place] 16.6 g/dL 11:49 AM CDT Hematocrit 44.5 38.3 - 07/05/2021 [place] 48.6 % 11:49 AM CDT Erythrocytes 4.85 4.35 - 07/05/2021 [place] 5.65 11:49 AM CDT x10(12)/L MCV 91.8 78.2 - 07/05/2021 [place] 97.9 fL 11:49 AM CDT RBC Distrib Width 12.8 11.8 - 07/05/2021 [place] 14.5 % 11:49 AM CDT Platelet Count 248 135 - 317 07/05/2021 [place] x10(9)/L 11:49 AM CDT Leukocytes 5.4 3.4 - 9.6 07/05/2021 [place] x10(9)/L 11:49 AM CDT Neutrophils 3.60 1.56 - 07/05/2021 [place] 6.45 11:49 AM CDT x10(9)/L Lymphocytes 1.13 0.95 - 07/05/2021 [place] 3.07 11:49 AM CDT x10(9)/L Monocytes 0.59 0.26 - 07/05/2021 [place] 0.81 11:49 AM CDT x10(9)/L Eosinophils 0.04 0.03 - 07/05/2021 [place] 0.48 11:49 AM CDT x10(9)/L Basophils 0.02 0.01 - 07/05/2021 [place] 0.08 11:49 AM CDT x10(9)/L Specimen Anatomical Collection Method Collection Time Receive d Time (Source) Location / / Volume Laterality Blood (Blood, 07/05/2021 11:34 07/05/2021 Venous) AM CDT 11:44 AM CDT Adrián Jackson LAB BLOOD ADD-ON Performing Organization Address City/State/ZIP Code Phon e Number [facility] [address] [place] [address] [place] [address] System in [facility] [address] ECG 12 Lead (07/05/2021 10:23 AM CDT) P athologist Signature Ventricular Rate 76 BPM MUSE ECG/Min PA Interval 142 ms MUSE QRSD Interval 96 ms MUSE QT Interval 372 ms MUSE QTC Interval 418 ms MUSE P [place] 68 degrees MUSE R [place] 74 degrees MUSE T Wave [place] 57 degrees MUSE Specimen Anatomical Collection Method Collection Time Receive d Time (Source) Location / / Volume Laterality 07/05/2021 10:23 07/05/2021 AM CDT 10:55 AM CDT Impressions MUSE - 07/05/2021 10:55 AM CDT Normal sinus rhythm Normal ECG When compared with ECG of 03-AUG-2019 10 :45, No significant change was found Reviewed by JUAN Covington Narrative This result has an attachment that is no t available. Procedure Note Dhaval Britton Jr., M.D. - 07/05/2021For matting of this note might be different from the original. IMPRESSION: Normal sinus rhythm Normal ECG When compared with ECG of 03-AUG-2019 10 :45, No significant change was found Reviewed by JUAN Covington Adrián Restrepo [email or web address] ECG ORDERABLES Performing Organization Address City/State/ZIP Code Phon e Number MUSE MUSE NA DX Shoulder Left 2+ Views (07/05/2021 10:15 [...] postsurgic al. Changes of biceps tenodesis. Adrián Jackson IMG DIAGNOSTIC IMAGING PROCE DURES documented in this encounter Visit Diagnoses Diagnosis Pain Shoulder Left - Primary Pain Shoulder Left documented in this encounter Additional Health Concerns Assessment Noted Time PHQ-9 Depression Total Score: 16 12/29/2019 7:41 AM CD T documented as of this encounter Care Teams Hogshead Stripper Relationship Specialty Start Date End Date Anthony Carpenter, ELA, C.N.P., PCP - General Family Medicine M.S.N. [address] [phone] documented as of this encounter
--- OUTSIDE RECORDS SUMMARY | 2022-08-19 06:51 | XMS_ITS | Encounter Summary ---
:[address] [facility] Address [address] [place] [address] Care Team Providers Name Role Phone Anthony Carpenter APRN C.N.PPatricia, M.S.N. Primary Care Provider + Encounter Details Date Type Department Care Team Description 04/16/2021 Clinical Communication Department of [facility] Anthony Carpenter, Medicine, [place] ELA C.N.PPatricia, Clinic, [facility] [address] [place] [phone] Social History Tobacco Use Types Packs/Day Years [...] or relatives? How often do you attend scientology or Patient refused 2020 nondenominational services? Do you belong to any clubs or No 07/17/2021 organizations such as scientology groups, unions, fraternal or athletic groups, or [...] to pay for the very basics like Cerephex hat hard 07/17/2021 food, housing, medical care, [...] or the highest technical, or vocational p [employer] degree you have received? Sex Assigned at Date Recorded Not on file documented as of this encounter Miscellaneous Notes Telephone Encounter - Vannesa Flynn L.P.N. - 04/19/2021 10:56 AM CDT Left a detailed message on patient phone and read what provider had written Telephone Encounter - Anthony Carpenter APRN C.N.Harsha, M.S.N. 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 I would suggest increasing his Protonix to 40 mg twice daily for 48 days.After 48 days may decrease to 40 mg once daily for 14 days then stop. Telephone Encounter - Zully Noyola - 04/16/2021 8:16 AM CDT Reason for Communication: Patient called. He had an upper endoscopy done on 04/08 and hasn't gotten the results yet. He said he was supposed to get them on or Thursday of last week. Current Can Nursing/Provider leave a detailed message?: yes - please leave the results on his vm if he doesn't answer Did the patient refuse triage through Nurse line? (for symptom based concerns): na Action Needed: wants call back Name of Medication (if relevant): na documented in this encounter Plan of Treatment Not on filedocumented as of this encounter Visit Diagnoses Not on filedocumented in this encounter Additional Health Concerns Assessment Noted Time PHQ-9 Depression Total Score: 16 12/29/2019 7:41 AM CD T documented as of this encounter Care Teams Dietary Director Relationship Specialty Start Date End Date Anthony Carpenter, TUBE BUILDER AIRPLANE, C.N.P., PCP - General Family Medicine M.S.N. [address] [phone] documented as of this encounter
--- OUTSIDE RECORDS SUMMARY | 2022-08-19 06:51 | XMS_ITS | Encounter Summary ---
:1975 Author Organization [facility] Address [address] [place] [address] Care Team Providers Name Role Phone Anthony Carpenter APRN, C.N.P., M.S.N. Primary Care Provider + Encounter Details Date Type Department Care Team Description 06/18/2021 Orders Only [facility] Anthony Carpenter, Roula PRN, Screening Lipid C.N.P., M.S.N. [address] [place], [place] [phone] (Wo rk) Social History Tobacco Use Types [...] you attend episcopal or Patient refused 2020 druze services? Do you belong to any clubs [...] documented as of this encounter Care Teams Industrial Hire Sales Assistant Relationship Specialty Start Date End Date Anthony Carpenter, ELA, C.N.P., PCP - General Family Medicine M.S.N. [address] [phone] documented as of this encounter
--- OUTSIDE RECORDS SUMMARY | 2022-08-19 06:51 | XMS_ITS | Encounter Summary ---
:1975 Author Organization [facility] Address [address] [place] [address] Care Team Providers Name Role Phone Anthony Carpenter APRN, C.N.Harsha, M.S.N. Primary Care Provider + Encounter Details Date Type Department Care Team Description 04/05/2021 Lab Department of [facility] Anthony Carpenter [facility] For [facility] Medicine, [facility] ELA C.N.PPatricia, For Ot her Viral Diseases Building, in [place] M.S.NPatricia (COVID-19) [place] [address] [address] [facility] [place] [address] (Wo rk) Social History Tobacco Use [...] or relatives? How often do you attend orthodoxy or Patient refused 2020 adventist services? Do you belong to any clubs or No 07/17/2021 organizations such as orthodoxy groups, unions, fraternal or athletic groups, or [...] Associated Diagnosis Comme nts SARS CORONAVIRUS-2 Routine 04/05/2021 11:38 AM Encounter For R esults for this RNA, V CDT Screening For Other procedur e are in Viral Diseases the results (COVID-19) section. documented in this encounter Results SARS Coronavirus-2 RNA, V Asymptomatic (04/05/2021 11:38 AM CDT) [facility] Method Time Signature SARS-CoV-2 Swab, 04/06/2021 MKTO Specimen Nasopharynx 11:42 AM Source CDT SARS CoV-2 Undetected Undetected 04/06/2021 MKTO RNA, TMA 11:42 AM CDT Comment: SARS-CoV-2 RNA absent. This result does not rule out COVID-19 in the patient, as the sensitivity of the test depends o n the timing of the specimen collection and the quality of the specim en. Result should be correlated with patient's history and clinical presentat ion. ----ADDITIONAL INFORMATION---- This molecular amplification test was pe rformed using the Aptima SARS-CoV-2 assay ([employer] on the Stamp.its tem under emergency use authorization (EUA) by the U.S. Food and Drug Administ ration. Fact sheets for this EUA assay can be fo und at the following links: For Healthcare Providers: https://www.fd a.gov/media/864442/download For Patients: https://www.fda.gov/media/ 365076/download Specimen Anatomical Collection Method Collection Time Receive d Time (Source) Location / / Volume Laterality Varies 04/05/2021 11:38 04/05/2021 9:39 (Nasopharynx) AM CDT PM CDT Anthony Carpenter APRN, C.N.P., M.S.N. LAB MICROBIOLOGY - GENERAL ORDERABLES Performing Organization Address City/State/[facility] Phon e Number [facility]- [address] [place] [id number] [facility] [address] [address] documented in this encounter Visit Diagnoses Diagnosis Encounter For Screening For Other Viral Diseases (COVID-19) documented in this encounter Additional Health Concerns Infection Onset Date Last Indicated Resolved Time COVID19 Pending 04/04/2021 04/05/2021 04/06/2021 11:43 AM CDT Assessment Noted Time PHQ-9 Depression Total Score: 16 12/29/2019 7:41 AM CD T documented as of this encounter Care Teams Mandrel Cleaner Relationship Specialty Start Date End Date Anthony Carpenter APRN, C.N.P., PCP - General Family Medicine M.S.N. [address] [address] documented as of this encounter
--- OUTSIDE RECORDS SUMMARY | 2022-08-19 06:51 | XMS_ITS | Encounter Summary ---
:1975 Author Organization [facility] Address [address] [place] [address] Care Team Providers Name Role Phone Anthony Carpenter APRN C.N.P., M.S.N. Primary Care Provider + Reason for Visit Reason Comments Abdominal Pain Encounter Details Date Type Department Care Team Description 06/14/2021 - Emergency [facility] Abdominal Pain (Primary 06/16/[address] [place]x) [place] [address] Social History Tobacco Use Types Packs/Day [...] or relatives? How often do you attend adventist or Patient refused 2020 mormon services? Do you belong to any clubs or No 07/17/2021 organizations such as adventist groups, unions, fraternal or athletic groups, or [...] Take 1 tablet (10 60 tablet 0 06/20/2021 ine (ADDERALL) 10 mg mg total) by mouth tablet 2 (two) times a day. dextroamphetamine-amphetam Take 1 tablet (10 58 tablet 0 06/20/2021 ine (AdderalL) 10 mg mg total) by mouth tablet 2 (two) times a day. dextroamphetamine-amphetam Take 1 tablet (10 60 tablet 0 06/20/2021 ine (ADDERALL) 10 mg mg total) by [...] Diagnosis CT ABDOMEN PELVIS RAD - Semiurgent 06/14/2021 10:22 Abdominal Pain Results for this WITH IV CONTRAST (Fast; most ED PM CDT procedure are in patients; some the results inpatients) section. documented in this encounter Results CT Abdomen Pelvis with IV Contrast (06/14/2021 10:22 PM CDT) Anatomical Region Laterality Modality Abdomen, Pelvis, Abdominal RST LOS, Abdominal ARZ LOS, N/A Computed Tomography Abdominal FLA LOS Specimen (Source) Anatomical Collection Method Collection Time Re ceived Time Location / / Volume Laterality 06/14/2021 10:28 PM CDT Impressions 06/14/2021 10:39 PM CDT No acute abnormality in the abdomen or pelvis. Narrative 06/14/2021 10:39 PM CDT EXAM: CT ABDOMEN PELVIS WITH IV CONTRAST COMPARISON: 03/27/2021 FINDINGS: Lower chest: Unremarkable. Liver: No suspicious lesion. Gallbladder/bile ducts: No bile duct enl argement. Pancreas: No organized peripancreatic co llection or acute inflammatory changes. Spleen: No suspicious lesion. Adrenal glands: Unremarkable. Kidneys, ureters, bladder: No hydronephr osis. GI tract, mesentery/peritoneum: No obstr uction. Normal appendix. Mild colonic diverticulosis. Vasculature: No evidence of aortic aneur ysm. ?? Lymph Nodes: No pathologically enlarged lymph nodes. Reproductive: Unremarkable. Bones/soft tissues: No abnormal soft tis reg mass or acute fracture. Procedure Note David Wang M.D. - 06/14/2021Format ting of this note might be different from the original. EXAM: CT ABDOMEN PELVIS WITH IV CONTRAST COMPARISON: 03/27/2021 FINDINGS: Lower chest: Unremarkable. Liver: No suspicious lesion. Gallbladder/bile ducts: No bile duct enl argement. Pancreas: No organized peripancreatic co llection or acute inflammatory changes. Spleen: No suspicious lesion. Adrenal glands: Unremarkable. Kidneys, ureters, bladder: No hydronephr osis. GI tract, mesentery/peritoneum: No obstr uction. Normal appendix. Mild colonic diverticulosis. Vasculature: No evidence of aortic aneur ysm. Lymph Nodes: No pathologically enlarged lymph nodes. Reproductive: Unremarkable. Bones/soft tissues: No abnormal soft tis reg mass or acute fracture. IMPRESSION: No acute abnormality in the abdomen or p surendra. Jg CHAMBERS CT PROCEDURES documented in this encounter Visit Diagnoses Diagnosis Abdominal Pain - Primary documented in this encounter Administered Medications Inactive Administered Medications - up to 3 most recent administrations Medication Order MAR Action Action Date Dose Rate Site iohexoL 300 mg iodine/mL Given 06/14/2021 10:10 PM 100 mL Right Antecubital solution 100 mL CDT (OMNIPAQUE) 100 mL, intravenous, Once in imaging, contrast, Starting on Thu06/14/21 at 2158, For 1 dose sodium chloride 0.9 % flush Given 06/14/2021 10:10 PM CDT 75 mL Right Antecubital 75 mL 75 mL, intravenous, Once in imaging, line care, Starting on Thu06/14/21 at 2159, For 1 dose sodium chloride 0.9 % Given 06/14/2021 10:10 PM CDT 10 mL Right Antecubital injection 10 mL 10 mL, intravenous, Once in imaging, line care, Starting on Thu06/14/21 at 2159, For 1 dose documented in this encounter Active and Recently Administered Medications Times are shown in CDT. PRN Medication Order 06/14/2021 06/15/2021 06/16/2021 iohexoL 300 mg iodine/mL solution 100 mL (OMNIPAQUE) ( COMPLETED) 2209 (Given - Provider: Hawa Macario(R)(CT), R.T.(R) - Comment: [id number]) 100 mL, intravenous, Once in imaging, co ntrast, Starting on Thu06/14/21 at 2158, For 1 dose sodium chloride 0.9 % flush 75 mL (COMPLETED) 2209 (Gi toyin - Provider: Hawa Macario(R)(CT), R.T.(R)) 75 mL, intravenous, Once in imaging, becca e care, Starting on Thu06/14/21 at 2159, For 1 dose sodium chloride 0.9 % injection 10 mL (COMPLETED) 2209 (Given - Provider: Hawa Macario(Vadim)(CT), Hawa(R)) 10 mL, intravenous, Once in imaging, becca e care, Starting on Thu06/14/21 at 2159, For 1 dose documented in this encounter Additional Health Concerns Assessment Noted Time PHQ-9 Depression Total Score: 16 12/29/2019 7:41 AM CD T documented as of this encounter Care Teams Property Management Intern Relationship Specialty Start Date End Date Anthony Carpenter, ELA, C.N.P., PCP - General Family Medicine M.S.N. [address] [address] documented as of this encounter
--- OUTSIDE RECORDS SUMMARY | 2022-08-19 06:51 | XMS_ITS | Encounter Summary ---
:1975 Author Organization [facility] Address [address] [place] [address] Care Team Providers Name Role Phone Anthony Carpenter APRN C.N.P., M.S.N. Primary Care Provider + Reason for Referral Outpatient (Routine) - Closed Specialty Diagnoses / Procedures Referred By Contact Refer red To Contact Preventive Medicine Diagnoses Pain Neck Pain Elbow Left Pain Ankle Right Headache Post Traumatic Anyi Corado P.A.-C. [facility] [address] [place] [address] Referral ID Status Reason Start Date Expiration Date Visits Requ ested Visits Authorized [id number] Closed 01/22/2021 01/22/2022 1 1 Scheduling Instructions Patient will call to schedule Outpatient (Routine) - Closed Specialty Diagnoses / Procedures Referred By Contact Refer red To Contact Diagnoses Pain Ankle Right Anyi Corado P.A.-C. [address] [place] [address] Referral ID Status Reason Start Date Expiration Date Visits Requ ested Visits Authorized [id number] Closed 01/22/2021 01/22/2022 1 1 Outpatient (Routine) - Denied Specialty Diagnoses / Procedures Referred By Contact Refer red To Contact Ophthalmology Diagnoses Headache Post Traumatic Anyi Corado P.A.-C. [facility] Region [address] [place] [address] Referral ID Status Reason Start Date Expiration Date Visits V isits Requested Authorized [id number] Denied Specialty 01/22/2021 01/22/2022 1 0 Services Required Reason for Visit Reason Comments Work Related Injury wc f/u, DOI 12/17/2020, neck and foot, CC&S Outpatient (Routine) - Closed Specialty Diagnoses / Procedures Referred By Contact Refer red To Contact Preventive Medicine Diagnoses Pain Neck Pain Elbow Left Pain Ankle Right Anyi Corado P.A.-C. [facility] [address] [place] [address] Referral ID Status Reason Start Date Expiration Date Visits Requ ested Visits Authorized [id number] Closed 12/31/2020 12/31/2021 1 1 Encounter Details Date Type Department Care Team Description 01/22/2021 Office Visit Department of Anyi Corado, Headache Post Traumatic (Primary Dx); Occupational Medicine [facility]; in [facility] [address] Pain Elbow Left; [address] [place], [place] [phone] Social History Tobacco Use Types Packs/Day Years [...] you attend hinduism or Patient refused 2020 voodoo services? Do you belong to any clubs or No 07/17/2021 organizations such as hinduism groups, unions, [employer] or athletic groups, or school groups? How [...] Sign Reading Time Taken Comments Blood Pressure 143/96 01/22/2021 10:39 AM CDT Pulse 81 01/22/2021 10:39 AM CDT Temperature 36.8 ??C (98.2 ??F) 01/22/2021 10:39 AM CDT Respiratory Rate - - Oxygen Saturation 99% 01/22/2021 10:39 AM CDT Inhaled Oxygen Concentration - - Weight - - Height - - Body Mass Index - - documented in this encounter Progress Notes Anyi Corado P.A.-C. 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 male who presents for recheck of a work- related injury. The injury occurred around 3:30-4 AM on the DOI. He was walking down the stairs at work when he slipped and fell. He tells me that he stuck his left arm out towards the railing in attempts to catch himself, but ended up somersaulting down??a flight of 9??concrete stairs to the basement level. He tellsme that he lost consciousness. He is unsure how long for and remembers coming to with paramedics standing over him. He thinks there was one other coworker who came to his aid at the time of injury. Patient was brought in to the ED via EMS, where extensive imaging was completed including CT head, neck and thoracic spine, as well as radiographs of the left humerus, left elbow, left forearm and right ank le. These were all negative for acute osseous injury, although patient tells me he was told he has achip in his left elbow. He was discharged with a sling, air cast and pain medications and was advised to follow up as an outpatient. He presented here for initial evaluation one week later and was continuing to note unchanged symptoms. He was advised to continue focusing on conservative measures as previously, adding Flexeril and formal activity restrictions to his regimen. More recently, [facility] Alon unfortunately has only been able to attend 1 session due to WCdenial. He plans to pursue this under his personal insurance once he is able to acquire this. Alon returns today noting largely unchanged symptoms. He cites his ankle, right arm and headaches as his primary concerns today. The right ankle remains an 8/10 pain at baseline. He reports walking and standing as particular aggravators for him, unable to specifically quantify how long he is able to do these tasks prior to worsening of symptoms. Pain seems to be worse medially without radiation. When asked about numbness and tingling, patient notes that he typically notices this in his toes upon waking but this tends to resolve after getting up and moving around. He initially denies any numbness or tingling currently, but later states that he has numbness in his entire foot. No new weakness or instability is reported. The popping in his ankle seems to occur more frequently now. No pain noted in the remainder of the right leg. Patient continues to utilize his aircast, ice and elevation for treatment of this issue. Patient states that since his last visit he woke up with right elbow pain and swelling. He notes that this has been present since his fall but has not previously mentioned this. Pain seems to be worse laterally. No new trauma reported. No abnormalities have been noted to inspection aside from the swell ing. Patient was seen in urgent care and the ER for right elbow pain in the week leading up to his fall. The left arm, which has previously been an area of focus, is feeling better today. Pain is stillpresent but seems to be to a lesser degree than before. No numbness or tingling is noted in the upper extremities. He notes a generalized weakness in the arms. New within the past week, Alon is also noticing headaches. He reports that these seem to occur daily. They last about 10-15 minutes and then resolve. Pain is localized to the frontal and parietal regions. Pain can reach a 10/10 in severity. Quality is stabbing and pounding. Headaches are accompanied by light sensitivity. He had one episode of vomiting, no recurrence. He notes blurry vision as of late, no loss of visual field or double vision. He notes that it is hard to hear out of his right ear. These symptoms were not noted during his initial evaluations here, he states that these symptoms beganlast week. Alon has been utilizing daily ibuprofen and Tylenol for management of his pain, often taking multiple times per day. He notes there is not a single day since his injury that he has not taken these medications. Alon continues to note that he feels stiff and sore all over. He has difficulty sleeping at night due to pain. Alon remains out of work. He notes some difficulty finding a job at the moment. REVIEW OF SYSTEMS Negative except as mentioned in the HPI. The following portions of the patient's history were reviewed and updated as appropriate: allergies,current medications, medical history, social history, surgical history and problem list OBJECTIVE VITAL SIGNS Vitals: 01/22/21 1039 BP: (!) 143/96 Pulse: 81 Temp: 36.8 ??C SpO2: 99% PHYSICAL EXAMINATION GENERAL: Alert, relaxed male in no acute distress. Sitting comfortably in exam chair. MUSCULOSKELETAL: Upper Extremities Left elbow - Normal appearance. Mild tenderness appreciated left epicondylar region, ROM within normal limits. Right elbow - Normal appearance. No overlying skin changes or warmth appreciated. Diffuse, non-focaltenderness appreciated about the elbow, seems to be worse about the lateral epicondylar region into the proximal forearm musculature. Due to perceived pain, strength testing is limited particularly with resisted supination and pronation. Right ankle - Wears aircast. Patient walks with a slightly antalgic gait in the exam room, avoids putting pressure on the foot when climbing onto the exam table. No abnormality to inspection. Tenderness medial malleolus > remainder of ankle which remains diffusely tender to palpation. ROM does seemto be improving but limited in dorsiflexion and inversion, eversion mostly as compared to the contralateral side. No point tenderness in the foot. Sensation is intact to light touch distally, as is capillary refill. Pedal pulses are 2+ and equal. NEUROLOGICAL: Alert and oriented to person, place and time. Mood and affect appropriate. Speech is clear and fluent. Thought processes coherent. Gait is antalgic as noted above, no evidence of foot drop. Romberg equivocal. Visual acuity 20/25 in each eye separately and together. CN II-XII grossly intact. Patient squints during EOM testing. Sensation is intact to light touch throughout. Reflexes are 2+ and equal throughout. Lwjjtj-md-hlez and Louann within normal limits. DIAGNOSTICS: Dx Elbow Left 3+ Views Result Date: 12/31/2020 Impression: No large elbow joint effusion. No discrete fracture lucency. Normal alignment. Mild degenerative change. If pain persists consider follow-up imaging. Dx Ankle Right 3+ Views Result Date: 12/31/2020 Impression: No discrete fracture lucency. Ankle mortise is symmetric. Talar dome is intact. Mild degenerative change. If pain persists consider follow-up imaging. CT Head and Cervical Spine Without Contrast Result Date: 12/17/2020 Impression:??Unremarkable noncontrast head CT??and cervical spine CT. ?? CT Thoracic Spine Result Date: 12/17/2020 Impression:??Unremarkable thoracic spine CT. No sign of acute injury. ?? CT Chest Result Date: 12/17/2020 Impression:??Unremarkable chest CT. No sign of acute injury or disease.? XR Elbow 3 Views Left Result Date: 12/17/2020 Impression:??No sign of acute injury. ?? XR Forearm 2 Views Left Result Date: 12/17/2020 Impression:??No sign of acute injury. ?? XR Humerus 2 Views Left Result Date: 12/17/2020 Impression:??No sign of acute injury. ASSESSMENT / PLAN Encounter Diagnoses Name Primary? Pain Neck ??? Pain Elbow Left ??? Pain Ankle Right ??? Headache Post Traumatic Yes Alon continues to note symptoms about the right ankle and lesser so the left elbow, with newer symptoms reported now since his last visit here. Patient remains diffusely tender on exam with limited focal findings. I reviewed his imaging again today in detail and CT imaging of the head, two sets of x-rays for the elbow and ankle are unremarkable. Reviewed headache history in detail. No indication foremergent imaging at this time. Query medication overuse headache given recent onset and daily regular OTC analgesic use since his DOI. We discussed trialing a wash-out period to abstain from OTC analgesics, once resuming should not use more than 14/30 days per month. With the associated blurry vision,I did advise he obtain an updated vision exam. Visual acuity today is 20/25 in each eye separately and together. We discussed red flag symptoms that would warrant emergency care with respect to his headaches. He may continue to utilize Flexeril PRN for pain control at this time, reserving for night time mainly. Given objective findings obtained per initial PT evaluation, I do still believe he would benefit from formal PT. He will pursue this when he is able through his personal insurance. He may also benefit from podiatry evaluation to determine if any additional therapeutic interventions may be ofbenefit. I will plan to see Alon back once the above have been completed, anticipated in about 1 months' time. Discussed worsening symptoms that will bring the patient back sooner for further evaluation. The patient indicates understanding of these issues and agrees with the plan. Work status: modified duty with restrictions as follows continue same restrictions. Will update onceattending PT. See attached Report of Injury and Illness for full details. The patient was given the yellow copy of the worker illness form. 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 Orders Placed This Encounter Procedures ??? Ophthalmology - General consult (clinic) ??? External referral physician (non-[facility]) ??? Preventive Medicine office visit (clinic) Medications prescribed today: No orders of the defined types were placed in this encounter. 30 minutes spent with patient in counseling, discussion of plan, coordination of care and completionof the return to work document. documented in this encounter Plan of Treatment Scheduled Referrals Name Type Priority Associated Order Schedule Diagnoses Ophthalmology - Outpatient Referral Routine Headache Post Expe cted: General consult Traumatic 01/22/2021 (clinic) (Approximate), Expires: 01/23/2024 Preventive Medicine Outpatient Referral Routine Pain Nec k Expected: office visit (clinic) Pain Elbow Left 02/21/2021 Pain Ankle Right (Approximate), Headache Post Expires: Traumatic 01/23/2024 documented as of this encounter Visit Diagnoses Diagnosis Headache Post Traumatic - Primary Pain Neck Pain Elbow Left Pain Ankle Right documented in this encounter Additional Health Concerns Assessment Noted Time PHQ-9 Depression Total Score: 16 12/29/2019 7:41 AM CD T documented as of this encounter Care Teams Fondant Machine Operator Relationship Specialty Start Date End Date Anthony Carpenter, ELA, C.N.P., PCP - General Family Medicine M.S.N. [address] [address] documented as of this encounter
--- OUTSIDE RECORDS SUMMARY | 2022-08-19 06:51 | XMS_ITS | Encounter Summary ---
:1975 Author Organization [facility] Address [address] [place] [address] Care Team Providers Name Role Phone Anthony Carpenter APRN C.N.P., M.S.N. Primary Care Provider + Reason for Visit Reason Comments Abdominal Pain Nausea Encounter Details Date Type Department Care Team Description 03/27/2021 Emergency [facility] Abdominal Pain [address] [place] [address] Social History Tobacco Use Types Packs/Day [...] you attend catholic or Patient refused 2020 sikhism services? Do [...] 03/2707/17/2021 mg SL tablet under the tongue. documented as of this encounter Plan of Treatment Not on filedocumented as of this encounter Procedures Procedure Name Priority Date/Time Associated Comments Diagnosis CT ABDOMEN PELVIS RAD - Semiurgent 03/27/2021 10:52 Abdominal Pain Results for this WITH IV CONTRAST (Fast; most ED AM CDT procedure are in patients; some the results inpatients) section. documented in this encounter Results CT Abdomen Pelvis with IV Contrast (03/27/2021 10:52 AM CDT) Anatomical Region Laterality Modality Abdomen, Pelvis, Abdominal RST LOS, Abdominal ARZ LOS, N/A Computed Tomography Abdominal FLA LOS Specimen (Source) Anatomical Collection Method Collection Time Re ceived Time Location / / Volume Laterality 03/27/2021 10:56 AM CDT Impressions 03/27/2021 11:00 AM CDT 1. ??No findings to explain the clinical symptoms. 2. ??Colonic diverticulosis without evid ence of acute diverticulitis. Narrative 03/27/2021 11:00 AM CDT EXAM: CT ABDOMEN PELVIS WITH IV CONTRAST COMPARISON: March 25, 2021 FINDINGS: Negative liver, gallbladder, s pleen, adrenal glands and pancreas. Negative kidneys. Intact and normal brody kamini abdominal aorta. No bowel obstruction. Scattered colonic diverticu la without evidence of acute diverticulitis. Moderate volume colonic stool. Normal appendix. No acute or aggressive appearing skeletal lesion. Sm all broad-based L3-4 and L4-5 disc bulges. Partial developmental L5-S1 anky losis, unchanged. Procedure Note Markos Wang M.D. - 03/27/2021Formattin g of this note might be different from the original. EXAM: CT ABDOMEN PELVIS WITH IV CONTRAST COMPARISON: March 25, 2021 FINDINGS: Negative liver, gallbladder, s pleen, adrenal glands and pancreas. Negative kidneys. Intact and normal brody kamini abdominal aorta. No bowel obstruction. Scattered colonic diverticu la without evidence of acute diverticulitis. Moderate volume colonic stool. Normal appendix. No acute or aggressive appearing skeletal lesion. Sm all broad-based L3-4 and L4-5 disc bulges. Partial developmental L5-S1 patricio fournieris, unchanged. IMPRESSION: 1. No findings to explain the clinical s ymptoms. 2. Colonic diverticulosis without eviden ce of acute diverticulitis. Nura CHAMBERS CT PROCEDURES documented in this encounter Visit Diagnoses Diagnosis Abdominal Pain documented in this encounter Administered Medications Inactive Administered Medications - up to 3 most recent administrations Medication Order MAR Action Action Date Dose Rate Site iohexoL 300 mg iodine/mL Given 03/27/2021 10:47 AM 100 mL Right Antecubital solution 1-200 mL CDT (OMNIPAQUE) 1-200 mL, intravenous, Once in imaging, contrast, Starting on Thu03/27/21 at 1053, For 1 dose sodium chloride 0.9 % flush Given 03/27/2021 10:47 AM CDT 100 mL Right Antecubital 100 mL 100 mL, intravenous, Once, On Thu03/27/21 at 1100, For 1 dose sodium chloride 0.9 % injection 10 mL Given 03/27/2021 10:47 AM CDT 10 mL 10 mL, intravenous, Once, On Thu03/27/21 at 1100, For 1 dose documented in this encounter Active and Recently Administered Medications Times are shown in CDT. Scheduled Medication Order 03/25/2021 03/26/2021 03/27/2021 sodium chloride 0.9 % flush 100 mL (COMPLETED) 1047 (Given - Provider: Hawa Monroe(R)) 100 mL, intravenous, Once, On Thu03/27/21 at 1100, For 1 dose sodium chloride 0.9 % injection 10 mL (COMPLETED) 1047 (Given - Provider: Hawa Monroe(R)) 10 mL, intravenous, Once, On Thu03/27/21 at 1100, For 1 dose PRN Medication Order 03/25/2021 03/26/2021 03/27/2021 iohexoL 300 mg iodine/mL solution 1-200 mL (OMNIPAQUE) (COMPLETE D) 1047 (Given - Provider: Hawa Monroe(R)) 1-200 mL, intravenous, Once in imaging, contrast, Starting on Thu03/27/21 at 1053, For 1 dose documented in this encounter Additional Health Concerns Assessment Noted Time PHQ-9 Depression Total Score: 16 12/29/2019 7:41 AM CD T documented as of this encounter Care Teams Monkey Breeder Relationship Specialty Start Date End Date Anthony Carpenter, ELA, C.N.P., PCP - General Family Medicine M.S.N. [address] [place] [phone] documented as of this encounter
--- OUTSIDE RECORDS SUMMARY | 2022-08-19 06:51 | XMS_ITS | Encounter Summary ---
:1975 Author Organization [facility] Address [address] [place] [address] Care Team Providers Name Role Phone Anthony Carpenter APRN, C.N.PPatricia, M.S.N. Primary Care Provider + Reason for Visit Reason Comments Med Refill Encounter Details Date Type Department Care Team Description 06/20/2021 Refill Department of Family Medicine, Anthony Carpenter APRN, Med Refill [facility], in [place], C. N.Harsha, M.S.N. [place] [address] [address] [place] [address] [place] [address] [facility] [phone] Social History Tobacco Use Types Packs/Day Years [...] you attend lutheran or Patient refused 2020 voodoo services? Do [...] or the highest technical, or vocational p Enishram degree you have received? Sex Assigned at Date Recorded Not on file documented as of this encounter Miscellaneous Notes Telephone Encounter - Florinda Flynn L.PPatriciaN. - 06/25/2021 4:06 PM CDT Called patient let him know prescriptions are at the pharmacy Telephone Encounter - Rebecca Torrez - 06/24/2021 8:59 AM CDT Reason for Communication: Patient called checking on status of Adderall, said he was out as of last week. Asked for a call back today if possible. Uses [employer] in [place] Can Nursing/Provider leave a detailed message?: yes Did the patient refuse triage through Nurse line? (for symptom based concerns): Action Needed: please call Name of Medication (if relevant): Please send all scheduling replies to scheduling pool. Telephone Encounter - Mrailyn Morley - 06/20/2021 8:58 AM CDT Nurse review: Unable to forward request to provider; Controllled Substance, CSA Primary Provider: Anthony Carpenter APRN, C.N.P., M.S.N. Requested Prescriptions Pending Prescriptions Disp Refills ??? dextroamphetamine-amphetamine (ADDERALL) 10 mg tablet 60 tablet 0 Sig: Take 1 tablet (10 mg total) by mouth 2 (two) times a day. Pharmacy: [facility] documented in this encounter Plan of Treatment Not on filedocumented as of this encounter Visit Diagnoses Not on filedocumented in this encounter Additional Health Concerns Assessment Noted Time PHQ-9 Depression Total Score: 16 12/29/2019 7:41 AM CD T documented as of this encounter Care Teams Waste Transportation Technician Relationship Specialty Start Date End Date Anthony Carpenter, ELA C.N.P., PCP - General Family Medicine M.S.N. [address] [phone] documented as of this encounter
--- OUTSIDE RECORDS SUMMARY | 2022-08-19 06:51 | XMS_ITS | Encounter Summary ---
:1975 Author Organization [facility] Address [address] [place] [address] Care Team Providers Name Role Phone Anthony Carpenter APRN, C.N.PPatricia, M.S.N. Primary Care Provider + Reason for Visit Reason Comments Med Refill Encounter Details Date Type Department Care Team Description 03/08/2021 Refill Department of Family Medicine, Anthony Carpenter APRN, Med Refill [facility], in [place], C. N.Harsha, M.S.N. [place] [address] [address] [place] [address] [place] [address] [facility] [phone] Social History Tobacco Use Types Packs/Day Years [...] or relatives? How often do you attend gnosticism or Patient refused 2020 shinto services? Do you belong to any clubs or No 07/17/2021 organizations such as gnosticism groups, unions, fraternal or athletic groups, or [...] or the highest technical, or vocational p my6senseram degree you have received? Sex Assigned at Date Recorded Not on file documented as of this encounter Miscellaneous Notes Telephone Encounter - Vonnie Wells - 03/08/2021 11:29 AM CDT Nurse review: Unable to forward request to provider; Controlled Substance Primary Provider: Anthony Carpenter APRN, C.N.P., M.S.N. Telephone Encounter - Laina Abdullahi - 03/08/2021 11:18 AM CDT Primary Provider: Anthony Carpenter APRN, Caterina.N.P., M.S.N. Name of Medication: Adderrall Strength: 10 mg tablet Frequency: Take 1 tablet (10 mg total) by mouth 2 (two) times a day. Pharmacy (include location): [facility] [place] documented in this encounter Plan of Treatment Not on filedocumented as of this encounter Visit Diagnoses Not on filedocumented in this encounter Additional Health Concerns Assessment Noted Time PHQ-9 Depression Total Score: 16 12/29/2019 7:41 AM CD T documented as of this encounter Care Teams Sales/Marketing Relationship Specialty Start Date End Date Anthony Carpenter APRN, C.N.P., PCP - General Family Medicine M.S.N. [address] [place] [phone] documented as of this encounter
--- OUTSIDE RECORDS SUMMARY | 2022-08-19 06:51 | XMS_ITS | Encounter Summary ---
:1975 Author Organization [facility] Address [address] [place] [address] Care Team Providers Name Role Phone Anthony Carpenter APRN, C.N.P., M.S.N. Primary Care Provider + Encounter Details Date Type Department Care Team Description 04/02/2021 Orders Only Department of Family Anthony Carpenter APR N, Medicine, [facility], C.N.P ., M.S.N. in [facility] [address] [place] [phone] (Wo rk) Social History Tobacco [...] or relatives? How often do you attend hindu or Patient refused 2020 episcopal services? Do you belong to any clubs or No 07/17/2021 organizations such as hindu groups, unions, fraternal or athletic groups, or [...] to pay for the very basics like [place] hat hard 07/17/2021 food, housing, medical care, [...] place to sleep or slept in a long-term (including now)? Education Answer Date Recorded What [...] documented as of this encounter Care Teams Bone Plant Supervisor Relationship Specialty Start Date End Date Anthony Carpenter, ELA, C.N.P., PCP - General Family Medicine M.S.N. [address] [phone] documented as of this encounter
--- OUTSIDE RECORDS SUMMARY | 2022-08-19 06:51 | XMS_ITS | Encounter Summary ---
:1975 Author Organization [facility] Address [address] [place] [address] Care Team Providers Name Role Phone Anthony Carpenter APRN C.N.Harsha, M.S.N. Primary Care Provider + Encounter Details Date Type Department Care Team Description 04/23/2021 Clinical Communication Department of [facility] General Surgery in [place], [place] [address] [place] [address] [place], [place] [phone] (Wo rk) [phone] Social History Tobacco Use Types Packs/Day Years [...] or relatives? How often do you attend muslim or Patient refused 2020 sikh services? Do you belong to any clubs or No 07/17/2021 organizations such as muslim groups, unions, fraternal or athletic groups, or [...] to pay for the very basics like [employer] [place] hat hard 07/17/2021 food, housing, medical care, [...] the highest level of school Associate degree: annettehenok densonjolene, 06/29/2019 you have completed or the highest technical, or vocational p renard degree you have received? Sex Assigned at Date Recorded Not on file documented as of this encounter Miscellaneous Notes Telephone Encounter - Reshma Hinkle C.N.A. - 04/23/2021 2:08 PM CDT Results given by PCP. Telephone Encounter - Reshma Hinkle C.N.A. - 04/23/2021 1:14 PM CDT ----- Message from Martinez Rojas M.D. sent at 04/23/2021 7:48 AM CDT ----- Findings suggest chemcial effect such as from NSAIDs, alcohol etc. Avoid if possible. ----- Message ----- From: Desiree Villa Sent: 04/10/2021 7:58 AM CDT To: Martinez Rojas M.D. documented in this encounter Plan of Treatment Not on filedocumented as of this encounter Visit Diagnoses Not on filedocumented in this encounter Additional Health Concerns Assessment Noted Time PHQ-9 Depression Total Score: 16 12/29/2019 7:41 AM CD T documented as of this encounter Care Teams Pharmaceutical Worker Relationship Specialty Start Date End Date Anthony Carpenter APRN, C.N.P., PCP - General Family Medicine M.S.N. [address] [place] [phone] documented as of this encounter
--- OUTSIDE RECORDS SUMMARY | 2022-08-19 06:51 | XMS_ITS | Encounter Summary ---
:1975 Author Organization [facility] Address [address] [place] [address] Care Team Providers Name Role Phone Jayden Anthony Zuñiga APRN, C.N.P., M.S.N. Primary Care Provider + Reason for Visit Reason Comments Animal Bite Encounter Details Date Type Department Care Team Description 12/25/2020 - Emergency [facility] Bite Animal Hand Open 12/26/[address] Initial Left ([place] [address] Dx) [phone] Social History Tobacco Use Types Packs/Day Years [...] you attend jain or Patient refused 2020 sikhism services? Do [...] a day. oxyCODONE-acetaminophen Take 1 tablet by 13 tablet 0 202012/31/2020 (PERCOCET) 5-325 mg per mouth every 6 (six) tabletIndications: Acute hours as needed for Pain moderate pain or score 4-6 of 10 Indication: acute pain. Do not exceed 8 tablets per day. documented as of this encounter Plan of Treatment Not on filedocumented as of this encounter Visit Diagnoses Diagnosis Bite Animal Hand Open Initial Left - Taryn octaviano documented in this encounter Additional Health Concerns Assessment Noted Time PHQ-9 Depression Total Score: 16 12/29/2019 7:41 AM CD T documented as of this encounter Care Teams Barber Relationship Specialty Start Date End Date Anthony Carpenter, ELA, C.N.P., PCP - General Family Medicine M.S.N. [address] [place] [phone] documented as of this encounter
--- OUTSIDE RECORDS SUMMARY | 2022-08-19 06:51 | XMS_ITS | Encounter Summary ---
:1975 Author Organization [facility] Address [address] [place] [address] Care Team Providers Name Role Phone Anthony Carpenter APRN C.N.Gabriel., M.S.N. Primary Care Provider + Reason for Referral Physical Therapy (Routine) - Closed Specialty Diagnoses / Procedures Referred By Contact Refer red To Contact Diagnoses Pain Neck Pain Elbow Left Pain Ankle Right Anyi Corado P.A.-C. [address] [place] [phone] Referral ID Status Reason Start Date Expiration Visits Visits Date Requested Authorized [id number] Closed Patient 12/31/2020 12/31/2021 1 1 Preference utpatient (Routine) - Closed Specialty Diagnoses / Procedures Referred By Contact Refer red To Contact Preventive Medicine Diagnoses Pain Neck Pain Elbow Left Pain Ankle Right Anyi Corado P.A.-C. [facility] Region [address] [place] [address] Referral ID Status Reason Start Date Expiration Date Visits Requ ested Visits Authorized [id number] Closed 12/31/2020 12/31/2021 1 1 Reason for Visit Reason Comments Work Related Injury 12/17/20, CC&S Outpatient (Routine) - Closed Specialty Diagnoses / Procedures Referred By Contact Refer red To Contact Preventive Medicine Diagnoses Pain Neck Pain Elbow Left Pain Ankle Right Anyi Corado, Nery-C. [facility] Region [address] [facility] [place] [address] Referral ID Status Reason Start Date Expiration Date Visits Requ ested Visits Authorized [id number] Closed 12/24/2020 12/24/2021 1 1 Encounter Details Date Type Department Care Team Description 12/31/2020 Office Visit Department of Anyi Corado, Pain Neck; Occupational Medicine in P.A.-C. Pain Elbow Left; [place], [place] [address] Pain Ankle Right [address] [facility] [phone] Social History Tobacco Use Types Packs/Day Years [...] or relatives? How often do you attend mandaeism or Patient refused 2020 druze services? Do you belong to any clubs or No 07/17/2021 organizations such as mandaeism groups, unions, fraternal or athletic groups, or [...] Sign Reading Time Taken Comments Blood Pressure 149/83 12/31/2020 8:34 AM CDT Pulse 80 12/31/2020 8:34 AM CDT Temperature - - Respiratory Rate - - Oxygen Saturation 91% 12/31/2020 8:34 AM CDT Inhaled Oxygen Concentration - - Weight - - Height - - Body Mass Index - - documented in this encounter Progress Notes Anyi Corado P.A.-C. 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 He tells me that he lost consciousness. He is unsure [...] humerus, left elbow, left forearm and right ankle. These were all negative for acute osseous injury, although patient tells me he was told he has a chip in his left elbow. He was discharged with a sling, air cast and pain medications and was advised to follow up as an outpatient. He presented here for initial evaluation one week later and was continuing to note unchanged symptoms. He was advised to continue focusing on conservative measures as previously, adding Flexeril and formal activity restrictions to his regimen. He is here today to follow up. Alon reports that his symptoms are about the same since his last visit here. His primary concern today is his right ankle pain. He points to the lateral, medial and posterior aspects of the ankle as being the points of maximal pain. This pain is rated at an 8/10 in severity today and is described as achy. Within the past week, he notes that the ankle has been popping which causes some increased pain. Walking for extended periods of time is also an aggravator. He has some tingling that affects all of these toes, beginning within the past week as well. He finds the aircast very helpful and wears this regularly. He also elevates and ices the ankle. Alon also notes that his left arm remains bothersome. The pain seems to localize more to the left elbow, but he also points to the distal upper arm and proximal forearm as painful areas as well. This pain is rated at a 7/10 in severity. This is described more as a stiff pain, with intermittent sharper pain if he moves wrong. He has been limiting lifting on this side. He is no longer using the sling on a regular basis. He continues to note some generalized achiness throughout this body since the fall, particularly in the ribs and the back. He does note that it has been difficult for him to sleep at night due to this.The Flexeril does help with this some, however. He is taking this primarily at night time. For additional pain control, Alon is taking Tylenol as needed. He is no longer taking Percocet. Alon reports that he is no longer working for [employer]. He brings with unemployment paperwork and requests that this be completed. REVIEW OF SYSTEMS Negative except as mentioned in the HPI. The following portions of the patient's history were reviewed and updated as appropriate: allergies,current medications, medical history, social history, surgical history and problem list OBJECTIVE VITAL SIGNS Vitals: 12/31/20 0834 BP: 149/83 Pulse: 80 SpO2: 91% PHYSICAL EXAMINATION GENERAL: Alert, relaxed male in no acute distress. Presents wearing an aircast to the right ankle. MUSCULOSKELETAL: Neck - Patient exhibits good ROM about the cervical spine, slightly reduced in extension today with discomfort noted with that action. No midline tenderness appreciated, but with diffuse paraspinous tenderness extending into the trapezius on both sides. He does have some mild periscapular tenderness as well. Upper extremities - The patient exhibits tenderness localized around the elbow, primarily affecting the lateral epicondyle but also with tenderness medially and over the olecranon. He is a few degrees shy of full forward flexion and abduction of the bilateral shoulders. ROM of the left elbow is full without significant discomfort. Patternmaker strength of the left remains slightly reduced as compared to the right, but is improved from his last visit here. He is neurovascularly intact distally. Right ankle - No gross deformity to inspection. Walks with a slight limp today, but gait pattern is improved from last visit. Tenderness medial > lateral malleolus. Patient exhibits good ROM of the ankle. Neurovascularly intact distally but light touch to the toes causes a tingling sensation per patient. DIAGNOSTICS: CT Head and Cervical Spine Without Contrast Result Date: 12/17/2020 Impression: Unremarkable noncontrast head CT and cervical spine CT. ?? CT Thoracic Spine Result Date: 12/17/2020 Impression: Unremarkable thoracic spine CT. No sign of acute injury. ?? CT Chest Result Date: 12/17/2020 Impression: Unremarkable chest CT. No sign of acute injury or disease. ?? XR Elbow 3 Views Left Result Date: 12/17/2020 Impression: No sign of acute injury. ?? XR Forearm 2 Views Left Result Date: 12/17/2020 Impression: No sign of acute injury. ?? XR Humerus 2 Views Left Result Date: 12/17/2020 Impression: No sign of acute injury. ASSESSMENT / PLAN Encounter Diagnoses Name Primary? Pain Neck ??? Pain Elbow Left ??? Pain Ankle Right With continued pain and tenderness on exam primarily affecting the left elbow and right ankle, elected to obtain updated radiographs today. These are negative for osseous abnormality. Advised that Alon continue with conservative cares as previously while adding physical therapy to his regimen to address ongoing stiffness and functional deficits, as I believe pursuing PT early will allow him to return to his normal baseline faster than with HEP alone. I will plan to see Alon back in about 3 weeks for recheck, sooner with any new or worsening symptoms. The patient indicates understanding of these issues and agrees with the plan. Work status: modified duty with restrictions as follows #10 lifting max, no squat, crouch or climbing; rare walk/stand, sit frequently. See attached Report of Injury and Illness for full details. The patient was given the yellow copy of the worker illness form. Orders Placed This Encounter Procedures ??? DX Ankle Right 3+ Views ??? DX Elbow Left 3+ Views ??? Preventive Medicine office visit (clinic) ??? External referral PT (non-[facility]) Medications prescribed today: No orders of the defined types were placed in this encounter. 40 minutes spent with patient in counseling, review of x-rays, discussion of plan, coordination of care, completion of the return to work document and completion of the unemployment paperwork. documented in this encounter Plan of Treatment Scheduled Referrals Name Type Priority Associated Order Schedule Diagnoses Preventive Medicine Outpatient Referral Routine Pain Nec k Expected: office visit Pain Elbow Left 01/21/2021 (clinic) Pain Ankle Right (Approximat e), Expires: 01/01/2024 documented as of this encounter Results DX Ankle Right 3+ Views (12/31/2020 9:43 AM CDT) Anatomical Region Laterality Modality Lower Extremity, Ankle, Musculoskeletal RST LOS, Right Digital Radiography Musculoskeletal ARZ LOS, Muskuloskeletal FLA LOS Specimen (Source) Anatomical Collection Method Collection Time Re ceived Time Location / / Volume Laterality 12/31/2020 9:53 AM CDT Impressions 12/31/2020 9:54 AM CDT No discrete fracture lucency. Ankle mortise is symmetric. Talar dome is intact. Mild degenerative change. If pain persists consider follow-up imaging. Narrative 12/31/2020 9:54 AM CDT EXAM: DX ANKLE RIGHT 3+ VIEWS Procedure Note Vashti Nickerson M.D. - 12/31/2020Form atting of this note might be different from the original. EXAM: DX ANKLE RIGHT 3+ VIEWS IMPRESSION: No discrete fracture lucency. Ankle mort ise is symmetric. Talar dome is intact. Mild degenerative change. If pain persists consider follow-up imaging. Anyi Corado P.A.-C. IMG DIAGNOSTIC IMAGING PROCE VERONICA DX Elbow Left 3+ Views (12/31/2020 9:41 [...] consider follow-up imaging. Anyi [facility] SHASHI MARTIN documented in this encounter Visit Diagnoses Diagnosis Pain Neck Pain Elbow Left Pain Ankle Right Pain Elbow Left Pain Ankle Right documented in this encounter Additional Health Concerns Assessment Noted Time PHQ-9 Depression Total Score: 16 12/29/2019 7:41 AM CD T documented as of this encounter Care Teams Mold Yarn Supervisor Relationship Specialty Start Date End Date Anthony Carpenter, ELA, C.N.P., PCP - General Family Medicine M.S.N. [address] [phone] documented as of this encounter
--- OUTSIDE RECORDS SUMMARY | 2022-08-19 06:51 | XMS_ITS | Encounter Summary ---
:1975 Author Organization [facility] Address [address] [place] [address] Care Team Providers Name Role Phone Anthony Carpenter APRN, C.N.P., M.S.N. Primary Care Provider + Encounter Details Date Type Department Care Team Description 04/10/2021 Orders Only Department of Family Anthony Carpenter APR N, Medicine, [facility], C.N.P ., M.S.N. in [facility] [address] [place] [phone] (Wo rk) Social History Tobacco [...] you attend alevism or Patient refused 2020 yazidi services? Do you belong to any clubs [...] to pay for the very basics like [employer] hat hard 07/17/2021 food, housing, medical care, [...] documented as of this encounter Care Teams Tab Cutter Relationship Specialty Start Date End Date Anthony Carpenter, ELA, C.N.P., PCP - General Family Medicine M.S.N. [address] [phone] documented as of this encounter
--- OUTSIDE RECORDS SUMMARY | 2022-08-19 06:51 | XMS_ITS | Encounter Summary ---
:[address] [facility] Address [address] [place] [address] Care Team Providers Name Role Phone Jayden Anthony Zuñiga APRN C.N.P., M.S.N. Primary Care Provider + Encounter Details Date Type Department Care Team Description 12/31/2020 Hospital Encounter Department of Mak, Anyi Cruz, [facility]le [facility] [address] [place] [phone] Social History Tobacco Use Types Packs/Day Years [...] or relatives? How often do you attend roman catholic or Patient refused 2020 quaker services? Do you belong to any clubs or No 07/17/2021 organizations such as roman catholic groups, unions, fraternal or athletic groups, [...] to pay for the very basics like [employer] hat hard 07/17/2021 food, housing, medical care, [...] highest level of school Associate degree: [employer] campo, 06/29/2019 you have completed or the [...] Name Priority Date/Time Associated Comments Diagnosis DX ANKLE RIGHT 3+ RAD - Routine 12/31/2020 9:43 Pain Ankle Right Re sults for this VIEWS (most inpatients AM CDT procedure a re in and all the results outpatients) section. documented in this encounter Results DX Ankle Right 3+ [...] in this encounter Visit Diagnoses Diagnosis Pain Ankle Right documented in this encounter Additional Health Concerns Assessment Noted Time PHQ-9 Depression Total Score: 16 12/29/2019 7:41 AM CD T documented as of this encounter Care Teams Rolled Gold Plater Relationship Specialty Start Date End Date Anthony Carpenter, ELA, C.N.P., PCP - General Family Medicine M.S.N. [address] [phone] documented as of this encounter
--- OUTSIDE RECORDS SUMMARY | 2022-08-19 06:51 | XMS_ITS | Encounter Summary ---
:1975 Author Organization [facility] Address [address] [place] [address] Care Team Providers Name Role Phone Anthony Carpenter APRN C.N.Harsha, M.S.N. Primary Care Provider + Reason for Visit Reason Comments Follow-up abd pain Pre-op Exam endoscopy Appointment Request (Routine) - Closed Specialty Diagnoses / Procedures Referred By Contact Refer red To Contact Family Medicine Referral ID Status Reason Start Date Expiration Date Visits Requ ested Visits Authorized [id number] Closed 03/25/2021 03/25/2022 1 1 Encounter Details Date Type Department Care Team Description 04/03/2021 Office Visit Department of Family Anthony Carpenter Pai n Epigastric (Primary Dx); Medicine, [place] APRN, C.N.PPatricia, Preopera tive Exam Clinic, [facility] [address] [place] [phone] Social History Tobacco Use Types Packs/Day Years [...] you attend mormonism or Patient refused 2020 catholic services? Do you belong to any clubs or No 07/17/2021 organizations such as mormonism groups, unions, fraWherever[employer] or athletic groups, or school groups? How [...] Sign Reading Time Taken Comments Blood Pressure 152/82 04/03/2021 9:16 AM CDT Pulse - - Temperature - - Respiratory Rate - - Oxygen Saturation - - Inhaled Oxygen Concentration - - Weight 65.8 kg (145 lb 1 oz) 04/03/2021 9:16 AM CDT Height 163.4 cm (5' 4.33) 04/03/2021 9:16 AM CDT Body Mass Index 24.64 04/03/2021 9:16 AM CDT documented in this encounter Patient Instructions Patient InstructionsBaAnthony faustin APRN, C.N.P., M.S.N. - 04/03/2021 9:30 AM CDT -take Protonix the morning of the procedure with a small sip of water. documented in this encounter Progress Notes Anthony Carpenter APRN, C.N.P., M.S.N. - 04/03/2021 9:30 AM CDT SUBJECTIVE CHIEF COMPLAINT/REASON FOR VISIT Alon Jaimes is a 45 y.o. male who presents for evaluation of Follow-up (abd pain) and Pre-op Exam (endoscopy). HISTORY OF PRESENT ILLNESS Alon Jaimes is here for a preoperative exam prior to esophagogastroduodenoscopy on 04/08/[address]jas at [facility]. For the last couple of weeks the patient has had issues withabdominal pain. He has been to the [facility] Emergency Department 3 times since it started. He has had two CT scans of the abdomen/pelvis, ECG, blood work including troponin, lipase, CMP, CBC, urinalysis all of which were unremarkable. To the emergency department at an outside facility at the [facility] where he had additional testing including a complete ultrasound of his abdominal organs which was unremarkable according to the patient. He continues to have abdominal pain. He also has nausea and occasional vomiting. Last week he states he vomited 4 times. This week he has not vomited. He has reflux. He was previously put on Protonix 40 mg daily which has helped his symptoms. He hasalso been using oxycodone for pain. He was previously using 800 mg twice daily of ibuprofen for manymonths. Food seems to make his symptoms worse. The abdominal pain is not relieved with a bowel movement. He has a history of hemorrhoids. He does not complain of melena, hematochezia, hemoptysis, change in bowel habits, diarrhea, constipation, fever, chills, night sweats. REVIEW OF SYSTEMS See HPI, remainder of [...] SUPERIOR LABRAL ANTERIOR POSTERIOR REPAIR Left 04/28/2018 FAMILY HISTORY Family History Problem Relation Age of Onset ??? Alcohol abuse Father ??? Asthma Mother SOCIAL HISTORY Social History Tobacco Use ??? Smoking status: Never Smoker ??? Smokeless tobacco: Current User Types: Chew ??? Tobacco comment: 1 can per week. Advised to quit Substance Use Topics ??? Alcohol use: No CURRENT MEDICATIONS Current Outpatient Medications Medication Sig Dispense Refill ??? acetaminophen (for_TYLENOL) 500 mg tablet Take 1,000 mg by mouth. ??? albuterol inhaler Inhale 2 puffs every 4 (four) hours as needed for wheezing or shortness of breath. 3 Inhaler 3 ??? cyclobenzaprine (FLEXERIL) 5 mg tablet Take 1 tablet (5 mg total) by mouth at bedtime as needed for muscle spasms. 15 tablet 0 ??? dextroamphetamine-amphetamine (ADDERALL) 10 mg tablet Take 1 tablet (10 mg total) by mouth 2 (two) times a day. 60 tablet 0 ??? [START ON 04/06/2021] dextroamphetamine-amphetamine (AdderalL) 10 mg tablet Take 1 tablet (10 mg total) by mouth 2 (two) times a day. 58 tablet 0 ??? [START ON 05/04/2021] dextroamphetamine-amphetamine (ADDERALL) 10 mg tablet Take 1 tablet (10 mg total) by mouth 2 (two) times a day. 60 tablet 0 ??? hyoscyamine (LEVSIN) 0.[address] 0.125 mg under the tongue. ??? oxyCODONE-acetaminophen (PERCOCET) 5-325 mg per tablet Take 1 tablet by mouth every 4 (four) hours as needed for severe pain or score 7-10 of 10 Indication: acute pain. 18 tablet 0 ??? pantoprazole (PROTONIX) 40 mg EC tablet Take 40 mg by mouth. No current facility-administered medications for this visit. ALLERGIES/CONTRAINDICATIONS Allergies Allergen Reactions ??? Gadolinium-Containing Contrast Media Rash ??? Adhesive Tape-Silicones Other (see comments) ??? Ketorolac Other (see comments) and Itching Cerner listed no reactions ??? Latex Other (see comments) Cerner listed no reactions ??? Penicillins Other (see comments) and GI intolerance Cerner listed no reactions ??? Tramadol Rash OBJECTIVE VITAL SIGNS BP 152/82 (BP Location: Right arm, Patient Position: Sitting, Cuff Size: Regular) Ht 163.4 cm Wt65.8 kg BMI 24.64 kg/m?? PHYSICAL EXAMINATION General: Patient is alert and oriented, in no acute distress. Capable of full communication without difficulty. Patient is polite and cooperative. Appropriately dressed and normal hygiene. HEENT: Normocephalic, atraumatic. Pupils are equal, round and reactive to light. Auditory canals patent. Tympanic membranes are pearly lawrence with adequate visualization of bony prominences. Nares are patent. Oropharynx without lesion of mucosa. Pharynx rises symmetrically without exudate. Dentition grossly intact. Neck: No lymphadenopathy. No thyroid enlargement or nodules. Neck is supple with normal range of motion. Cardiac: Regular rate and rhythm. No murmurs, gallops or rubs noted. No S3, no S4. Pulmonary: Regular rate and rhythm of respirations. Clear to auscultation bilaterally. No wheezing or crackles. No accessory muscles of respiration noted. Abdomen: Patient has tenderness to palpation throughout his abdomen. No rebound tenderness. No hepatosplenomegaly. No mass. Normal bowel sounds in all 4 quadrants. Musculoskeletal: Normal range of motion in all extremities. Extremities: No neurovascular compromise. No cyanosis or clubbing. No edema. Skin: No rashes or wounds. No evidence of excessive bruising. Neurological: Cranial nerves 2-12 are grossly intact. Deep tendon reflexes are 2+ bilaterally in patellar tendons. Mental: Affect is normal. Thought process is congruent. Speech is fluent. ASSESSMENT / PLAN #1 Preoperative Exam #2 Pain Epigastric -discussed my findings with the patient. Differentials considered but not limited to cholecystitis, appendicitis, diverticulitis, hepatitis, pancreatitis, malignancy, abdominal wall pain, gastritis, peptic ulcer. Given the patient's ibuprofen use and heartburn symptoms there is concerns of a peptic ulcer. Will go ahead with an upper endoscopy for further evaluation. If his upper endoscopy is unremarkable I think the next step would be to have him see General surgery. There have been no prior complications or problems with anesthesia. There is no family medical history of problems with anesthesia or malignant hyperthermia. The patient has no known bleeding or clotting disorders. The patient has not been diagnosed with sleep apnea. The patient is not diabetic. Thereare no sensitivities to tape or latex. The patient does not use blood thinners. The patient is a nonsmoker. Patient is, at present, medically stable for the above procedure. There are no contraindications to anesthesia. The patient is cleared up to and including general anesthesia. Known cardiopulmonary riskfactors include GERD. Functional capacity is >4 mets. The patient is aware that they need to be NPO after midnight the day of surgery. Further preoperative and postoperative recommendations have been given by the operating surgeon. COVID testing has been arranged by the patient's surgical team. Sleep Apnea: No known history of sleep apnea. Steroid Use Within the Past 12 Months: None. Diabetes: None. Bleeding Risk Factors: None. Anesthesia Reactions: None. Need for Prophylactic Antibiotics: None. Beta-Carroll: None. documented in this encounter Plan of Treatment Not on filedocumented as of this encounter Visit Diagnoses Diagnosis Pain Epigastric - Primary Preoperative Exam documented in this encounter Additional Health Concerns Assessment Noted Time PHQ-9 Depression Total Score: 16 12/29/2019 7:41 AM CD T documented as of this encounter Care Teams Certified Adaptive Physical Educator Relationship Specialty Start Date End Date Anthony Carpenter APRN, C.N.P., PCP - General Family Medicine M.S.N. [address] [phone] documented as of this encounter
--- OUTSIDE RECORDS SUMMARY | 2022-08-19 06:51 | XMS_ITS | Encounter Summary ---
:1975 Author Organization [facility] Address [address] [place] [address] Care Team Providers Name Role Phone Jayden Anthony Zuñiga APRN C.N.P., M.S.N. Primary Care Provider + Reason for Visit Reason Comments Shortness of Breath Encounter Details Date Type Department Care Team Description 04/03/2021 Emergency [facility] Abdominal Pain [address] [place] [address] Social History Tobacco Use Types Packs/Day [...] or relatives? How often do you attend latter day or Patient refused 2020 judaism services? Do you belong to any clubs or No 07/17/2021 organizations such as latter day groups, unions, fraternal or athletic groups, or [...] place to sleep or slept in a half-way (including now)? Education Answer Date Recorded What [...] pain. pantoprazole (PROTONIX) 40 Take 40 mg by 0 202004/10/2021 mg EC tablet mouth. documented as of this encounter Plan of Treatment Not on filedocumented as of this encounter Procedures Procedure Name Priority Date/Time Associated Comments Diagnosis DX ABDOMEN SUPINE RAD - Semiurgent 04/03/2021 3:29 Abdominal Pain R esults for this AND UPRIGHT 2 (Fast; most ED PM CDT procedure ar e in VIEWS patients; some the results inpatients) section. documented in this encounter Results DX Abdomen Supine and Upright 2 Views (04/03/2021 3:29 PM CDT) Anatomical Region Laterality Modality Abdomen, Abdominal RST LOS, Abdominal ARZ LOS, Right Digital Radiography Abdominal FLA LOS Specimen (Source) Anatomical Collection Method Collection Time Re ceived Time Location / / Volume Laterality 04/03/2021 3:31 PM CDT Impressions 04/03/2021 3:34 PM CDT Moderate amount of stool throughout the colon. Narrative 04/03/2021 3:34 PM CDT EXAM: DX ABDOMEN SUPINE AND UPRIGHT 2 VIEWS COMPARISON: CT examination of the abdome n and pelvis 03/28/2021 FINDINGS: There is a moderate amount of stool throughout the colon. No free intraperitoneal air. Visualized lung bas es are clear. Mild thoracolumbar curve convex to the left. There are presumed p elvic phleboliths. Bilateral sacroiliitis. There are 4 lumbar type ve rtebral elements with a transitional fifth lumbosacral vertebral element. Procedure Note Miles Pacheco M.D. - 04/03/2021Format ting of this note might be different from the original. EXAM: DX ABDOMEN SUPINE AND UPRIGHT 2 EWS COMPARISON: CT examination of the abdome n and pelvis 03/28/2021 FINDINGS: There is a moderate amount of stool throughout the colon. No free intraperitoneal air. Visualized lung bas es are clear. Mild thoracolumbar curve convex to the left. There are presumed p elvic phleboliths. Bilateral sacroiliitis. There are 4 lumbar type ve rtebral elements with a transitional fifth lumbosacral vertebral element. IMPRESSION: Moderate amount of stool throughout the colon. [facility] VERONICA documented in this encounter Visit Diagnoses Diagnosis Abdominal Pain documented in this encounter Additional Health Concerns Assessment Noted Time PHQ-9 Depression Total Score: 16 12/29/2019 7:41 AM CD T documented as of this encounter Care Teams Cyanide Pot Tender Relationship Specialty Start Date End Date Anthony Carpenter, ELA, C.N.P., PCP - General Family Medicine M.S.N. [address] [place] [phone] documented as of this encounter
--- OUTSIDE RECORDS SUMMARY | 2022-08-19 06:51 | XMS_ITS | Encounter Summary ---
:1975 Author Organization [facility] Address [address] [place] [address] Care Team Providers Name Role Phone Anthony Carpenter APRN C.N.P., M.S.N. Primary Care Provider + Reason for Visit Reason Comments Rectal Pain Encounter Details Date Type Department Care Team Description 03/25/2021 Emergency [facility] Pain Rectal (Primary Dx); [address] [facility] [place] [address] Social History Tobacco Use Types Packs/Day [...] you attend yazidi or Patient refused 2020 mu-ism services? Do [...] Diagnosis CT ABDOMEN PELVIS RAD - Semiurgent 03/25/2021 10:26 Abdominal Pain Results for this WITH IV CONTRAST (Fast; most ED AM CDT procedure are in patients; some the results inpatients) section. documented in this encounter Results CT Abdomen Pelvis with IV Contrast (03/25/2021 10:26 AM CDT) Anatomical Region Laterality Modality Abdomen, Pelvis, Abdominal RST LOS, Abdominal ARZ LOS, N/A Computed Tomography Abdominal FLA LOS Specimen (Source) Anatomical Collection Method Collection Time Re ceived Time Location / / Volume Laterality 03/25/2021 10:43 AM CDT Impressions 03/25/2021 10:49 AM CDT 1. Colonic diverticulosis without diverticulitis. 2. No bowel obstruction. 3. No significant change from 01/23/2021. Narrative 03/25/2021 10:49 AM CDT EXAM: CT ABDOMEN PELVIS WITH IV CONTRAST COMPARISON: 01/24/2020 FINDINGS: No lung base consolidation. Th e liver, gallbladder, spleen, pancreas, adrenal glands and kidneys are unremarka ble. Symmetric nephrograms. No hydronephrosis. The appendix is normal i n appearance. Scattered colonic diverticulosis without diverticulitis. N o bowel obstruction. High attenuation material in several mid small bowel loop s, new from 01/24/2020, may be due to ingested medication. Normal caliber abdo brandon aorta. No free fluid or free air. No lymphadenopathy. Mild degenerative ch bri lumbar spine. Degenerative change sacroiliac joints with partial ankylosis , unchanged. Procedure Note Vashti Nickerson M.D. - 03/25/2021Form atting of this note might be different from the original. EXAM: CT ABDOMEN PELVIS WITH IV CONTRAST COMPARISON: 01/24/2020 FINDINGS: No lung base consolidation. Th e liver, gallbladder, spleen, pancreas, adrenal glands and kidneys are unremarka ble. Symmetric nephrograms. No hydronephrosis. The appendix is normal i n appearance. Scattered colonic diverticulosis without diverticulitis. N o bowel obstruction. High attenuation material in several mid small bowel loop s, new from 01/24/2020, may be due to ingested medication. Normal caliber abdo brandon aorta. No free fluid or free air. No lymphadenopathy. Mild degenerative ch bri lumbar spine. Degenerative change sacroiliac joints with partial ankylosis , unchanged. IMPRESSION: 1. Colonic diverticulosis without divert iculitis. 2. No bowel obstruction. 3. No significant change from 01/23/2021. [facility] PROCEDURES documented in this encounter Visit Diagnoses Diagnosis Pain Rectal - Primary Abdominal Pain documented in this encounter Administered Medications Inactive Administered Medications - up to 3 most recent administrations Medication Order MAR Action Action Date Dose Rate Site iohexoL 300 mg iodine/mL Given 03/25/2021 10:21 AM 100 mL Right Antecubital solution 100 mL CDT (OMNIPAQUE) 100 mL, intravenous, Once in imaging, contrast, Starting on Thu03/25/21 at 1021, For 1 dose, If administered oral then dilute in 900 mL water sodium chloride 0.9 % flush Given 03/25/2021 10:21 AM CDT 75 mL Right Antecubital 75 mL 75 mL, intravenous, Once in imaging, line care, Starting on Thu03/25/21 at 1021, For 1 dose sodium chloride 0.9 % Given 03/25/2021 10:21 AM CDT 10 mL Right Antecubital injection 10 mL 10 mL, intravenous, As needed, line care, Starting on Thu03/25/21 at 1035 documented in this encounter Active and Recently Administered Medications Times are shown in CDT. PRN Medication Order 03/23/2021 03/24/2021 03/25/2021 iohexoL 300 mg iodine/mL solution 100 mL (OMNIPAQUE) (COMPLETED) 1021 (Given - Provider: Hawa Beauchamp(R)(CT), R.T.(R) - Comment: [id number]) 100 mL, intravenous, Once in imaging, co ntrast, Starting on Thu03/25/21 at 1021, For 1 dose, If administered oral then dilute in 900 mL water sodium chloride 0.9 % flush 75 mL (COMPLETED) 1021 (Given - Provider: Hawa Beauchamp(R)(CT), R.T.(R)) 75 mL, intravenous, Once in imaging, becca e care, Starting on Thu03/25/21 at 1021, For 1 dose sodium chloride 0.9 % injection 10 mL (CANCELED) 1021 (Given - Provider: Hawa Beauchamp(R)(CT), R.T.(R)) 10 mL, intravenous, As needed, line care, Starting on Thu 1 at 1035 documented in this encounter Additional Health Concerns Assessment Noted Time PHQ-9 Depression Total Score: 16 12/29/2019 7:41 AM CD T documented as of this encounter Care Teams Rack Loader Relationship Specialty Start Date End Date Bakewell, Anthony J, ELA, C.N.P., PCP - General Family Medicine M.S.N. [address] [phone] documented as of this encounter
--- OUTSIDE RECORDS SUMMARY | 2022-08-19 06:51 | XMS_ITS | Encounter Summary ---
:1975 Author Organization [facility] Address [address] [place] [address] Care Team Providers Name Role Phone Anthony Carpenter APRN, C.N.PPatricia, M.S.N. Primary Care Provider + Reason for Visit Reason Comments Med Refill Encounter Details Date Type Department Care Team Description 04/02/2021 Refill Department of Family Medicine, Anthony Carpenter APRN, Med Refill [facility], in [place], C. N.Harsha, M.S.N. [place] [address] [address] [place] [address] [place] [address] [facility] [phone] Social History Tobacco Use Types Packs/Day Years [...] or relatives? How often do you attend protestant or Patient refused 2020 restorationist services? Do you belong to any clubs or No 07/17/2021 organizations such as protestant groups, unions, fraternal or athletic groups, or [...] or the highest technical, or vocational p [employer] degree you have received? Sex Assigned at Date Recorded Not on file documented as of this encounter Miscellaneous Notes Addendum Note - Vannesa Moran L.P.N. - 04/09/2021 4:24 PM CDT Addended by: VANNESA MORAN on: 04/09/2021 04:24 PM Modules accepted: Orders Telephone Encounter - Anabel Suazo - 04/09/2021 4:19 PM CDT Reason for Communication: Patient is calling in regards to his medication being refilled. Message sent by Anthony Carpenter stating that script has been sent, but the pharmacy hasn't received anything and there isn't a receipt confirmed by pharmacy for script. Current Can Nursing/Provider leave a detailed message: Action Needed: Please resend script to [facility] [place] Name of Medication (if relevant): Percocet 1 tablet every 4 hours as needed for pain. Telephone Encounter - Desiree Patton R.MNixon - 04/02/2021 3:42 PM CDT Noted Telephone Encounter - Anthony Carpenter APRN, C.N.P., M.S.N. - 04/02/2021 3:41 PM CDT Prescription sent. Telephone Encounter - Florinda Arndt L.P.N. - 04/02/2021 9:20 AM CDT Anthony you filled this on 03/29 did you want to refill this for patient or do you want to wait until you talk to him tomorrow at his appt with you for an ER follow up? Please advise thank you Telephone Encounter - Florinda Morley - 04/02/2021 8:31 AM CDT Nurse review: Unable to forward request to provider; Controlled substance Primary Provider: Anthony Carpenter APRN, C.N.P., M.S.N. Telephone Encounter - Vineet Hernandez - 04/02/2021 8:26 AM CDT Primary Provider: Anthony Carpenter APRN, C.NCristine, M.S.N. Name of Medication: Percocet Strength: 5-325 mg Frequency: 1 tablet every 4 hours as need for pain Pharmacy (include location): [facility] * Patient stated he is almost out of this medication and still having a lot of pain. He will be in tomorrow for his Pre-op appt. documented in this encounter Plan of Treatment Not on filedocumented as of this encounter Visit Diagnoses Not on filedocumented in this encounter Additional Health Concerns Infection Onset Date Last Indicated Resolved Time COVID19 Pending 04/04/2021 04/05/2021 04/06/2021 11:43 AM CDT Assessment Noted Time PHQ-9 Depression Total Score: 16 12/29/2019 7:41 AM CD T documented as of this encounter Care Teams Pie Baker Relationship Specialty Start Date End Date Anthony Carpenter, ELA, C.N.P., PCP - General Family Medicine M.S.N. [address] [phone] documented as of this encounter
--- OUTSIDE RECORDS SUMMARY | 2022-08-19 06:51 | XMS_ITS | Encounter Summary ---
:1975 Author Organization [facility] Address [address] [place] [address] Care Team Providers Name Role Phone Anthony Carpenter APRN C.N.P., M.S.N. Primary Care Provider + Reason for Visit Reason Comments Abdominal Pain Encounter Details Date Type Department Care Team Description 03/29/2021 - Emergency [facility] Abdominal Pain (Primary 03/30/[address] Dx) [place] [address] Social History Tobacco Use Types Packs/Day [...] you attend nondenominational or Patient refused 2020 cheondoism services? Do [...] Take 1 tablet by 18 tablet 0 202004/02/2021 (PERCOCET) 5-325 mg per mouth every 4 tabletIndications: Acute (four) hours as Pain needed for severe pain or score 7-10 of 10 Indication: acute pain. Do not exceed 8 tablets per day. pantoprazole (PROTONIX) 40 Take 40 mg by 0 202004/10/2021 mg EC tablet mouth. documented as of this encounter Plan of Treatment Not on filedocumented as of this encounter Visit Diagnoses Diagnosis Abdominal Pain - Primary documented in this encounter Additional Health Concerns Assessment Noted Time PHQ-9 Depression Total Score: 16 12/29/2019 7:41 AM CD T documented as of this encounter Care Teams Stack Supervisor Relationship Specialty Start Date End Date Anthony Carpenter, ELA, C.N.P., PCP - General Family Medicine M.S.N. [address] [phone] documented as of this encounter
--- OUTSIDE RECORDS SUMMARY | 2022-08-19 06:51 | XMS_ITS | Encounter Summary ---
:1975 Author Organization [facility] Address [address] [place] [address] Care Team Providers Name Role Phone Anthony Carpenter APRN C.N.PPatricia, M.S.N. Primary Care Provider + Encounter Details Date Type Department Care Team Description 04/09/2021 Clinical Communication Department of [facility] Anthony Carpenter, Medicine, Tripp ELA C.N.PPatricia, Clinic[facility] [address] [place] [phone] Social History Tobacco Use Types Packs/Day Years [...] you attend anglican or Patient refused 2020 congregational services? Do you belong to any clubs [...] to pay for the very basics like [facility] [employer] hat hard 07/17/2021 food, housing, medical care, [...] the highest level of school Associate degree: occupa jarettjolene, 06/29/2019 you have completed or the highest technical, or vocational p Zymeworksram degree you have received? Sex Assigned at Date Recorded Not on file documented as of this encounter Miscellaneous Notes Telephone Encounter - Vannesa Flynn L.P.N. - 04/10/2021 4:32 PM CDT Spoke with patient and let him know he was not going to get any Percocet because of what is going onwith stomach he could not tolerate percocet. Patient did not response and then said bye and hung up Telephone Encounter - Anthony Carpenter APRN C.N.PPatricia, M.S.N. - 04/10/2021 4:17 PM CDT This was addressed in a med refill note. Please refer to that note. Telephone Encounter - Vannesa Flynn L.P.N. - 04/10/2021 4:12 PM CDT Percocet was sent in on the and this is gone patient had a scope on the and is in a lot ofpain asking for a refill on percocet Telephone Encounter - Anthony Carpenter APRN, C.N.P., M.S.N. - 04/10/2021 4:07 PM CDT Addressed in another note. Telephone Encounter - Florinda Arndt L.P.N. - 04/09/2021 10:17 AM CDT Anthony, it looks like patient had a scope done yesterday did you want to refill his Oxy? Please advise.Last filled on 04/02 thank you Telephone Encounter - Tori Rosales - 04/09/2021 10:04 AM CDT Reason for Communication: Patient calling in to request more oxycodone. He had a procedure done yesterday and is still having stomach pain. Current Can Nursing/Provider leave a detailed message?: yes Did the patient refuse triage through Nurse line? (for symptom based concerns): na Action Needed: New script and call back Name of Medication (if relevant): Oxycodone documented in this encounter Plan of Treatment Not on filedocumented as of this encounter Visit Diagnoses Not on filedocumented in this encounter Additional Health Concerns Assessment Noted Time PHQ-9 Depression Total Score: 16 12/29/2019 7:41 AM CD T documented as of this encounter Care Teams Physician Assistant Surgery Relationship Specialty Start Date End Date Anthony Carpenter APRN C.N.PPatricia, PCP - General Family Medicine M.S.N. [address] [phone] documented as of this encounter
--- OUTSIDE RECORDS SUMMARY | 2022-08-19 06:51 | XMS_ITS | Encounter Summary ---
:1975 Author Organization [facility] Address [address] [place] [address] Care Team Providers Name Role Phone AniaAnthony marie Zara MAHMOOD, C.N.P., M.S.N. Primary Care Provider + Encounter Details Date Type Department Care Team Description 01/29/2021 [facility]ecil Zapata M.[facility]. [address] [place], [place] [phone] (Wo rk) Social History Tobacco Use Types [...] you attend zoroastrianism or Patient refused 2020 bahai services? Do [...] documented as of this encounter Care Teams Glue Mounter Operator Relationship Specialty Start Date End Date Anthony Carpenter, ELA, C.N.P., PCP - General Family Medicine M.S.N. [address] [phone] documented as of this encounter
--- OUTSIDE RECORDS SUMMARY | 2022-08-19 06:52 | XMS_ITS | Encounter Summary ---
:1975 Author Organization [facility] Address [address] [place] [address] Care Team Providers Name Role Phone Anthony Carpenter APRN C.N.P., M.S.N. Primary Care Provider + Reason for Visit Reason Comments Ear Problem Encounter Details Date Type Department Care Team Description 11/26/2020 - Emergency [facility] Otitis Media Acute Left 11/27/[address] (Primary Dx) [place] [address] Social History Tobacco Use Types Packs/Day [...] you attend advent or Patient refused 2020 jehovah's witness services? Do you belong to any clubs [...] needed for wheezing or shortness of breath. dextroamphetamine-ampheta Take 1 tablet (10 mg 60 tablet 0 12/29/2019 12/19/2020 mine (ADDERALL) 10 mg total) by mouth 2 tablet (two) times a day. dextroamphetamine-ampheta Take 1 tablet (10 mg 60 tablet 0 10/03/2020 12/19/2020 mine (ADDERALL) 10 mg total) by mouth 2 tablet (two) times a day. dextroamphetamine-ampheta Take 1 tablet (10 mg 60 tablet 0 09/06/2020 12/19/2020 mine (ADDERALL) 10 mg total) by mouth 2 tablet (two) times a day. dextroamphetamine-ampheta Take 1 tablet (10 mg 58 tablet 0 11/21/2020 03/08/2021 mine (AdderalL) 10 mg total) by mouth 2 tablet (two) times a day. documented as of this encounter Plan of Treatment Not on filedocumented as of this encounter Visit Diagnoses Diagnosis Otitis Media Acute Left - Primary documented in this encounter Additional Health Concerns Assessment Noted Time PHQ-9 Depression Total Score: 16 12/29/2019 7:41 AM CD T documented as of this encounter Care Teams Auto Hiker Relationship Specialty Start Date End Date Anthony Carpenter, ELA, C.N.P., PCP - General Family Medicine M.S.N. [address] [phone] documented as of this encounter
--- OUTSIDE RECORDS SUMMARY | 2022-08-19 06:52 | XMS_ITS | Encounter Summary ---
:1975 Author Organization [facility] Address [address] [place] [address] Care Team Providers Name Role Phone Anthony Carpenter APRN, C.N.P., M.S.N. Primary Care Provider + Reason for Referral Outpatient (Routine) - Denied Specialty Diagnoses / Procedures Referred By Contact Refer red To Contact Diagnoses Pain Shoulder Right Kanu Iyer M.D. [facility] Region Procedures sek-uqyj-pphphvqa-elbow arthrocentesis: R subacromial bursa [address] [place] [address] Referral ID Status Reason Start Date Expiration Date Visits Requ ested Visits Authorized [id number] Denied 07/26/2020 07/26/2021 1 0 Reason for Visit Reason Comments Work Related Injury DOI 07/17/20. Marj staff [facility] Work Related Injury Appointment Request (Routine) - Closed Specialty Diagnoses / Procedures Referred By Contact Refer red To Contact Orthopedic Surgery Diagnoses wc [facility] Region Procedures n/a Referral ID Status Reason Start Date Expiration Date Visits Requ ested Visits Authorized [id number] Closed 07/25/2020 07/25/2021 1 1 Encounter Details Date Type Department Care Team Description 07/26/2020 Office Visit Department of Kanu Iyer Pain Shoulde r Right Orthopedic Surgery in [place] (Primary Dx) [place], [place] [address] [place] [phone] Social History Tobacco Use Types Packs/Day Years Used Date Smoking Tobacco: Never Smokeless Tobacco: Current Chew Alcohol Use Standard Drinks/Week Comments No 0 [...] you attend mu-ism or Patient refused 2020 gnosticism services? Do you belong to any clubs [...] place to sleep or slept in a group home (including now)? Education Answer Date Recorded What is the highest level of school Associate degree: jacki campo, 06/29/2019 you have completed or the highest technical, or vocational p priscillaram degree you have received? Sex Assigned at Date Recorded Not on file documented as of this encounter Last Filed Vital Signs Vital Sign Reading Time Taken Comments Blood Pressure - - Pulse - - Temperature 36 ??C (96.8 ??F) 07/26/2020 1:27 PM CDT Respiratory Rate 17 07/26/2020 1:27 PM CDT Oxygen Saturation - - Inhaled Oxygen Concentration - - Weight 66.2 kg (145 lb 15.1 oz) 07/26/2020 1:27 PM CDT Height - - Body Mass Index 24.32 08/03/2019 9:50 AM CDT documented in this encounter Patient Instructions Patient InstructionsFeMaria Ines thompson L.P.N. - 07/26/2020 2:00 PM CDT Surgical education was given to the patient today for Right knee arthroscopy to be scheduled with Dr.David Iyer All questions were answered and the patient verbalized understanding of all informationand instructions given. surgery scheduling met with patient and scheduled surgery and pre nd post op appointments.MF documented in this encounter Progress Notes Kanu Iyer M.D. - 07/26/2020 2:00 PM CDT HISTORY OF PRESENT ILLNESS The patient is a 44-year-old male with right shoulder pain. It has bothered him now for about 5-6 weeks with a lot a heavy lifting at work, kind of overuse type pain. The pain is more superior over hisAC joint, kind of goes along his clavicle. He is a Workers' Comp patient through [employer] and date of injury was 07/17/2020. DIAGNOSTICS X-rays and MRI scan have been obtained. X-rays show a normal looking shoulder, other than a type 2 acromion and a small marginal osteophyte of the glenohumeral joint, but in general his joint space looks good. MRI scan of his shoulder shows some mild AC joint arthritic change. He says he has had that repaired from an AC separation but it looks good. He has got some subcortical bone marrow edema in the proximal humeral head adjacent to the greater and lesser tuberosities, could be bony contusion, could be chronic. Some tendinopathy of the rotator cuff but no full-thickness tears. OBJECTIVE PHYSICAL EXAMINATION Extremities: Right shoulder has forward flexion to at least 160 degrees or more. Good internal and external rotation. Rotator cuff strength is good. He has got tenderness superiorly. Positive impingement signs of Neer and Hooker. Shoulder is stable ligamentously. No swelling, redness, or warmth aboutthe right shoulder. Neurovascularly intact in the right upper extremity. ASSESSMENT / PLAN #1 Right shoulder pain He does have some subchondral bone marrow edema, may be from overuse, may be from a direct blow to his shoulder. No rotator cuff pathology and nothing surgical. He also does have some symptoms of subacromial bursitis. PLAN: I injected the right shoulder subacromial space today with 9 mg of Celestone and lidocaine. That bone marrow edema will just have to resolve on its own, but the shot should definitely help. Recommend avoiding things that aggravate his shoulder as well. documented in this encounter Procedure Notes Kanu Iyer M.D. - 07/26/2020 2:00 PM CDTAssociated Order(s): cwo-obsh-gbdujrzw-elbow arthrocentesis: R subacromial bursa Post-Procedure Diagnose(s): Pain Shoulder Right Shoulder site - R subacromial bursa : injection only Date/Time: 07/26/2020 2:01 PM Performed by: Kanu Iyer M.D. Authorized by: Kanu Iyer M.D. PROCEDURE DETAILS Procedure Location shoulder Shoulder site: R subacromial bursa Site prep: patient was prepped and draped in usual sterile fashion Patient position: seated Procedural approach: posterior Procedure performed: injection only Needle gauge: 21 G Procedural Medication The following medications were administered at the target site(s) Local anesthetic: 8 mL lidocaine 10 mg/mL (1 %) Corticosteroid: 9 mg betamethasone acetate & sodium phosphate 6 [...] utilized as applicable for the procedure: yes Skin preparation: alcohol SEDATION / ANESTHESIA Anesthesia method: none POST-PROCEDURE DETAILS Procedure completed successfully: yes Complications: no apparent complications Discharge instructions: ice area as needed for comfort documented in this encounter Plan of Treatment Not on filedocumented as of this encounter Procedures Procedure Name Priority Date/Time Associated Diagnosis Comme nts WA ARTHCS ASP/INJ Routine 07/26/2020 2:00 PM Pain Shoulder Rig ht Results for this MJR JT WO US CDT procedure are i n the results section. documented in this encounter Results WA ARTHCS ASP/INJ MJR JT WO US (07/26/2020 2:00 PM CDT) Narrative MMODAL - 07/26/2020 2:00 PM CDT Kanu Iyer M.D. ? 07/26/2020 ??2:05 PM Shoulder site - R subacromial bursa : in jection only Date/Time: 07/26/2020 2:01 PM Performed by: Kanu Iyer M.D. Authorized by: Kanu Iyer M.D. PROCEDURE DETAILS Procedure Location shoulder Shoulder site: R subacromial bursa Site prep: patient was prepped and drape d in usual sterile fashion ?? Patient position: seated Procedural approach: posterior Procedure performed: injection only Needle gauge: 21 G Procedural Medication The following medications were administe red at the target site(s) Local anesthetic: 8 mL lidocaine 10 mg/m L (1 %) Corticosteroid: 9 mg betamethasone aceta te & sodium phosphate [...] applicable for the procedure : yes ?? Skin preparation: alcohol SEDATION / ANESTHESIA Anesthesia method: none POST-PROCEDURE DETAILS Procedure completed successfully: yes Complications: no apparent complications ?? Discharge instructions: ice area as need ed for comfort aKnu Iyer M.D. PROCEDURE/MINOR SURGICAL ORD ERABLES Performing Organization Address City/State/ZIP Code Phon e Number MMODAL MMODAL NA documented in this encounter Visit Diagnoses Diagnosis Pain Shoulder Right - Primary documented in this encounter Administered Medications Inactive Administered Medications - up to 3 most recent administrations Medication Order MAR Action Action Date Dose Rate Site betamethasone acetate & sodium Given 07/26/2020 2:01 PM CDT 9 mg phosphate injection 9 mg (CELESTONE SOLUSPAN) 9 mg, intra-articular, One-Time Injection, Starting on Sera 07/26/20 at 1401, For 1 dose lidocaine 10 mg/mL (1 %) injection 8 mL Given 07/26/2020 2:01 PM CDT 8 mL (XYLOCAINE) 8 mL, infiltration, One-Time Injection, Starting on Sera 07/26/20 at 1401, For 1 dose documented in this encounter Additional Health Concerns Assessment Noted Time PHQ-9 Depression Total Score: 16 12/29/2019 7:41 AM CD T documented as of this encounter Care Teams Tire Finisher Relationship Specialty Start Date End Date Anthony Carpenter, ELA, C.N.P., PCP - General Family Medicine M.S.N. [address] [phone] documented as of this encounter
--- OUTSIDE RECORDS SUMMARY | 2022-08-19 06:52 | XMS_ITS | Encounter Summary ---
:1975 Author Organization [facility] Address [address] [place] [address] Care Team Providers Name Role Phone Anthony Carpenter APRN C.N.Harsha, M.S.N. Primary Care Provider + Reason for Referral Outpatient (Routine) - Closed Specialty Diagnoses / Procedures Referred By Contact Refer red To Contact Preventive Medicine Diagnoses Pain Neck Pain Elbow Left Pain Ankle Right Anyi Corado P.A.-C. [facility] Region [address] [place] [address] Referral ID Status Reason Start Date Expiration Date Visits Requ ested Visits Authorized [id number] Closed 12/24/2020 12/24/2021 1 1 Reason for Visit Reason Comments Work Related Injury right ankle, left elbow, rig ht eye, neck, ribs; DOI 12/17/2020, Fell down stairs Appointment Request (Routine) - Closed Specialty Diagnoses / Procedures Referred By Contact Refer red To Contact Occupational Medicine Referral ID Status Reason Start Date Expiration Date Visits Requ ested Visits Authorized [id number] Closed 12/17/2020 12/17/2021 1 1 Encounter Details Date Type Department Care Team Description 12/24/2020 Comprehensive Visit Department of Anyi Corado Pain N nabil (Primary Dx); Occupational Medicine P.APatricia-CPatricia Pain Elbow Left; in [place], [address] [place] [phone] Social History Tobacco Use Types Packs/Day Years [...] you attend orthodoxy or Patient refused 2020 worship services? Do [...] Sign Reading Time Taken Comments Blood Pressure 136/84 12/24/2020 1:42 PM CDT Pulse - - Temperature - - Respiratory Rate - - Oxygen Saturation - - Inhaled Oxygen Concentration - - Weight - - Height - - Body Mass Index - - documented in this encounter Consult Notes Anyi Corado P.A.-C. 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 male who presents today for evaluation after a fall occurring at work. The injury occurred around 3:30-4 AM on the DOI. The patient reports that he was on break, having about 15 minutes left in his break, when the injury occurred. He was walking down the stairs at work when he slipped and fell. He tells me that he stuck his left arm out towards the railing in attempts tocatch himself, but ended up somersaulting down a [...] advised to follow up as an outpatient. Alon presents to clinic today noting that his symptoms are about the same as after his fall. He reports that his entire body feels stiff and tight. He has localized pain about the right side of the neck, the left lateral elbow and the right medial ankle. He notes discomfort in his ribs on both sides.Pain is rated at a 9/10 in severity today. Pain is described as achy, numb, burning and stabbing in quality with pins and needles sensations about the affected areas. Aggravators include nearly any activity he attempts to perform. Walking is a particular aggravator for the ankle. Alon has tried ice, heat, OTC analgesics, and narcotic pain medications for control of his pain level. He is using the jerry cotics sparingly, primarily at night time. Alon has not been back to work since his injury occurred. He first tells me that he was taken off of work and then tells me later that he was terminated from his position with [employer] forno reason. He has retained legal services. PREVIOUS INJURY OR CONDITION: Prior left shoulder surgery. Occupational Medicine Consultation Document complete and reviewed, please see scanned document for details. SOCIAL AND OCCUPATIONAL HISTORY: He works for [employer]. He has been working there for approximately 5 weeks. He works full-time 4 days per week for 10-12 hours per shift. Tobacco Use: Chewing tobacco Alcohol Use: no Recreational Drug Use: Denies REVIEW OF SYSTEMS General: No fever, chills, malaise. Skin: No ecchymosis, rash, lesions of concern. Heart: No chest pain, palpitations, diaphoresis. Lungs: No shortness of breath, new cough, sputum production, hemoptysis, painful breathing. Musculoskeletal: As described above. Neurologic: No loss of consciousness, headaches, numbness, tingling, weakness. Active Ambulatory Problems Diagnosis Date Noted ??? Anxiety 05/13/2017 ??? Attention Deficit With Hyperactivity Disorder 11/11/2017 ??? Pain Shoulder Left 03/16/2019 Resolved Ambulatory Problems Diagnosis Date Noted ??? Dizziness 06/04/2016 ??? Headache Daily 06/04/2016 ??? Presbyopia 05/23/2016 ??? Alcohol Moderate Or Severe Use Disorder (Dependence) Uncomplicated (HCC) 04/17/2014 ??? Pain Low Back 09/29/2017 No Additional Past Medical History CURRENT MEDICATIONS Current Outpatient Medications Medication Sig Dispense Refill ??? acetaminophen (for_TYLENOL) 500 mg tablet Take 1,000 mg by mouth. ??? albuterol inhaler Inhale 2 puffs every 4 (four) hours as needed for wheezing or shortness of breath. 3 Inhaler 3 ??? oxyCODONE-acetaminophen (PERCOCET) 5-325 mg per tablet Take 1 tablet by mouth every 6 (six) hours as needed for moderate pain or score 4-6 of 10 Indication: acute pain. Do not exceed 8 tablets per day. 13 tablet 0 ??? cyclobenzaprine (FLEXERIL) 5 mg tablet Take 1 tablet (5 mg total) by mouth at bedtime as needed for muscle spasms. 15 tablet 0 ??? dextroamphetamine-amphetamine (AdderalL) 10 mg tablet Take 1 tablet (10 mg total) by mouth 2 (two) times a day. 58 tablet 0 No current facility-administered medications for this visit. ALLERGIES/CONTRAINDICATIONS Allergies Allergen Reactions ??? Gadolinium-Containing Contrast Media Rash ??? Adhesive Tape-Silicones Other (see comments) ??? Ketorolac Other (see comments) and Itching Cerner listed no reactions ??? Latex Other (see comments) Cerner listed no reactions ??? Penicillins Other (see comments) and GI intolerance Cerner listed no reactions ??? Tramadol Rash OBJECTIVE VITAL SIGNS BP 136/84 (BP Location: Right arm, Patient Position: Sitting, Cuff Size: Large) PHYSICAL EXAMINATION General: Alert, relaxed male, under no acute distress. Presents wearing a left arm sling and air cast about the right ankle. During the back, elbow and ankle exam, patient is very sensitive to even light touch of the painful areas. Skin: Warm, moist. No lesions. There is a small, nickel-sized area of resolving contusion about the left upper back near the scapula. No contusion about the remainder of visualized skin including the head, neck, chest, abdomen, back and lower legs. HEENT: Normocephalic, atraumatic. Pupils equal, round and reactive to light and accommodation. Extraocular movements intact. Chest: S1, S2 appreciated. Regular rate and rhythm. No murmurs, gallops or rubs. Clear to auscultation bilaterally. Tenderness appreciated about the bilateral ribs diffusely, no point tenderness appreciated. Musculoskeletal: Neck exam Inspection - No gross deformity appreciated Palpation - Tenderness appreciated about the base of the cervical spine and diffusely throughout theparaspinous muscles, extending into the trapezius musculature on both sides. There is a small, mobile, soft mass about the anterolateral neck consistent with a lymph node. ROM - No significant deficits noted in ROM but patient notes discomfort throughout with visible grimacing during ROM Back exam, thoracic and lumbar Inspection - No gross deformity appreciated. Skin findings as above. Palpation - Diffuse tenderness appreciated about the thoracic and lumbar spines with diffuse paraspinous tenderness as well. Periscapular tenderness is appreciated on both sides. Left upper extremity Inspection - Well-healed surgical incisions present about the left shoulder. Remainder of left upperextremity normal appearing without visible swelling or bruising about the left elbow. Palpation - Diffuse tenderness to palpation, but with most tenderness concentrated over the lateral epicondyle. Some tenderness into the proximal forearm and distal upper arm. ROM - Left elbow ROM appears to be within normal limits, although slow and with discomfort. He is able to form a full composite fist with the left hand. 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 Right ankle exam Inspection - No swelling, ecchymosis, lesions appreciated. Walks with a limp and avoids placing excess pressure on the right ankle. Palpation - Tenderness about the medial malleolus. Lateral malleolus with mild tenderness as well asthe Achilles tendon and calcaneous. Achilles tendon palpably intact. Patient is limited in dorsiflexion, plantarflexion within normal limits. Pedal pulses intact. Capillary refill brisk. DIAGNOSTICS: CT Head and Cervical Spine Without Contrast Result Date: 12/17/2020 Impression: Unremarkable noncontrast head CT and cervical spine CT. CT Thoracic Spine Result Date: 12/17/2020 Impression: Unremarkable thoracic spine CT. No sign of acute injury. CT Chest Result Date: 12/17/2020 Impression: Unremarkable chest CT. No sign of acute injury or disease. XR Elbow 3 Views Left Result Date: 12/17/2020 Impression: No sign of acute injury. XR Forearm 2 Views Left Result Date: 12/17/2020 Impression: No sign of acute injury. XR Humerus 2 Views Left Result Date: 12/17/2020 Impression: No sign of acute injury. ASSESSMENT / PLAN Encounter Diagnoses Name Primary? Pain Neck Yes ??? Pain Elbow Left ??? Pain Ankle Right MMI: No PPD: Undetermined Work Related: Yes PLAN: Alon presents to occupational medicine today with a primary concern of neck, left elbow and right ankle pain after a fall occurring at work on 12/19/20. He is alert and well-appearing while seated in the exam room, breathing comfortably on room air. Patient exhibits diffuse tenderness on exam today, however, imaging completed in the ED is reassuring and negative for acute osseous injury. If continuing to exhibit this level of symptoms at close follow up, may consider repeating left elbow and right ankle radiographs to ensure no occult bony injury. In the meantime, he may continue to utilize his sling and aircast as needed. Will add Flexeril to address any muscular component to his pain. Discussedpotential side effects, including any potential driving restrictions. Continue to use narcotics sparingly, weaning off as symptoms improve with transition to focus on OTC analgesics. Activity restrictions outlined as below. Follow up planned for 1 week, sooner with any new or worsening symptoms. The pa tient indicates understanding of these issues and agrees with the plan. Work Status: modified duty with restrictions as follows rare walk/stand, sit frequently; no climbing, squat/crouch; avoid lifting on the left, right-sided lifting up to #5; no push/pull on the left; wear sling and aircast. See attached Report of Injury and Illness for full details. The patient was given the yellow copy of the worker illness form. Orders Placed This Encounter Procedures ??? Preventive Medicine office visit (clinic) Medications prescribed today: New Medications Ordered This Visit Medications ??? cyclobenzaprine (FLEXERIL) 5 mg tablet Sig: Take 1 tablet (5 mg total) by mouth at bedtime as needed for muscle spasms. Dispense: 15 tablet Refill: 0 45 minutes spent with patient in counseling, discussion of plan, coordination of care and completionof the return to work document. documented in this encounter Plan of Treatment Scheduled Referrals Name Type Priority Associated Order Schedule Diagnoses Preventive Medicine Outpatient Referral Routine Pain Nec k Expected: office visit Pain Elbow Left 12/31/2020 (clinic) Pain Ankle Right (Approximat e), Expires: 12/25/2023 documented as of this encounter Visit Diagnoses Diagnosis Pain Neck - Primary Pain Elbow Left Pain Ankle Right documented in this encounter Additional Health Concerns Assessment Noted Time PHQ-9 Depression Total Score: 16 12/29/2019 7:41 AM CD T documented as of this encounter Care Teams Peritoneal Dialysis Registered Nurse Relationship Specialty Start Date End Date Anthony Carpenter, ELA, C.N.P., PCP - General Family Medicine M.S.N. [address] [place] [phone] documented as of this encounter
--- OUTSIDE RECORDS SUMMARY | 2022-08-19 06:52 | XMS_ITS | Encounter Summary ---
:1975 Author Organization [facility] Address [address] [place] [address] Care Team Providers Name Role Phone Anthony Carpenter APRN, C.N.PPatricia, M.S.N. Primary Care Provider + Reason for Visit Reason Comments Med Refill Encounter Details Date Type Department Care Team Description 12/13/2020 Refill Department of Family Medicine, Anthony Carpenter APRN, Med Refill [facility], in [place], C. N.Harsha, M.S.N. [place] [address] [address] [place] [address] [place] [address] [facility] [phone] Social History Tobacco Use Types Packs/Day Years [...] you attend episcopal or Patient refused 2020 jain services? Do [...] or the highest technical, or vocational p @[employer] degree you have received? Sex Assigned at Date Recorded Not on file documented as of this encounter Miscellaneous Notes Telephone Encounter - Vannesa Flynn L.P.N. 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 - 12/13/2020 10:21 AM CST Left message for patient to return call to clinic. Does the patient need to speak to nursing? no Action needed: patient needs to schedule an appointment before he is able to get a refill of his medication. 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 [address] [phone] documented as of this encounter
--- OUTSIDE RECORDS SUMMARY | 2022-08-19 06:52 | XMS_ITS | Encounter Summary ---
:1975 Author Organization [facility] Address [address] [place] [address] Care Team Providers Name Role Phone Anthony Carpenter APRN, C.N.P., M.S.N. Primary Care Provider + Encounter Details Date Type Department Care Team Description 07/03/2020 Orders Only Department of Family Anthony Carpenter APR N, Medicine, [facility], C.N.P ., M.S.N. in [facility] [address] [place] [phone] (Wo rk) Social History Tobacco Use Types [...] you attend mandaeism or Patient refused 2020 hoahaoism services? Do [...] to pay for the very basics like [employer] hat hard 07/17/2021 food, housing, medical care, [...] as of this encounter Care Teams Senior Software Quality Engineer Relationship Specialty Start Date End Date Anthony Carpenter, ELA, C.N.P., PCP - General Family Medicine M.S.N. [address] [phone] documented as of this encounter
--- OUTSIDE RECORDS SUMMARY | 2022-08-19 06:52 | XMS_ITS | Encounter Summary ---
:1975 [facility] Address [address] [place] [address] Care Team Providers Name Role Phone Anthony Carpenter APRN, C.N.PPatricia, M.S.N. Primary Care Provider + Reason for Visit Reason Comments Med Refill Encounter Details Date Type Department Care Team Description 07/02/2020 Refill Department of Family Medicine, Anthony Carpenter APRN, Med Refill [facility], in [place], C. N.Harsha, M.S.N. [place] [address] [facility] [address] [place] [address] [place] [address] [facility] [phone] Social History Tobacco Use Types Packs/Day Years [...] you attend congregation or Patient refused 2020 restoration services? Do you belong to any clubs [...] to pay for the very basics like [employer] hat hard 07/17/2021 food, housing, medical care, [...] Telephone Encounter - Florinda Arndt L.P.N. - 07/03/2020 2:50 PM CDT Spoke to patient this was addressed Telephone Encounter - Jocy Rosales - 07/03/2020 2:33 PM CDT Patient is calling back to talk to nurse. [phone] Telephone Encounter - Florinda Arndt L.PPatriciaNPatricia - 07/03/2020 1:58 PM CDT Left message for patient to call back. Please read Anthony's message if patient calls back thank you Telephone Encounter - Anthony Carpenter, ELA, C.N.P., M.S.N. - 07/03/2020 1:19 PM CDT He received 6 tablets of oxycodone from the emergency department and 14 tablets of [place] from ne. I would suggest that he continue with meloxicam in addition to Tylenol 1000 mg every 6 hours. It does not look like he has scheduled the MRI yet either so I would suggest scheduling that and following up with occupational medicine given this is a work related incident. Anthony Telephone Encounter - Florinda Arndt L.P.N. - 07/02/2020 9:35 AM CDT Anthony, is this something you want to refill for patient? Please advise thank you Telephone Encounter - Estefany Jacinto - 07/02/2020 8:49 AM CDT Reason for Communication: Patient calling wanting to get a refill of his hydrocodone prescription. Patient states that Anthony Carpenter gave him six tablets and he is out and is still having a hard time sleeping. He was suppose to return to work today however his work told him to hold off until thursday due to his pain. Current Can Nursing/Provider leave a detailed message?: yes Did the patient refuse triage through Nurse line? (for symptom based concerns): Action Needed: Please advise and send prescription to [facility] in [place] Name of Medication (if relevant): Hydrocodone documented in this encounter Plan of Treatment Not on filedocumented as of this encounter Visit Diagnoses Not on filedocumented in this encounter Additional Health Concerns Assessment Noted Time PHQ-9 Depression Total Score: 16 12/29/2019 7:41 AM CD T documented as of this encounter Care Teams Decorator Hand Relationship Specialty Start Date End Date Anthony Carpenter APRN, C.N.P., PCP - General Family Medicine M.S.N. [address] [phone] documented as of this encounter
--- OUTSIDE RECORDS SUMMARY | 2022-08-19 06:52 | XMS_ITS | Encounter Summary ---
:1975 Author Organization [facility] Address [address] [place] [address] Care Team Providers Name Role Phone Anthony Carpenter APRN, C.N.P., M.S.N. Primary Care Provider + Encounter Details Date Type Department Care Team Description 12/12/2020 Orders Only [facility] Anthony Carpenter, S creening Examination ELA, C.N.P., Diabetes Shun castro M.S.N. [address] [place] [address] Social History Tobacco Use Types Packs/Day [...] to pay for the very basics like [employer] hat hard 07/17/2021 food, housing, medical care, [...] of this encounter Visit Diagnoses Diagnosis Screening Examination Diabetes Mellitus documented in this encounter Additional Health Concerns Assessment Noted Time PHQ-9 Depression Total Score: 16 12/29/2019 7:41 AM CD T documented as of this encounter Care Teams Railroad Firer/Fireman Relationship Specialty Start Date End Date Anthony Carpenter, ELA, C.N.P., PCP - General Family Medicine M.S.N. [address] [phone] documented as of this encounter
--- OUTSIDE RECORDS SUMMARY | 2022-08-19 06:52 | XMS_ITS | Encounter Summary ---
:1975 Author Organization [facility] Address [address] [place] [address] Care Team Providers Name Role Phone Anthony Carpenter APRN C.N.Harsha, M.S.N. Primary Care Provider + Reason for Visit Reason Comments Follow-up Attention deficit hyperactiv ity disorder Appointment Request (Routine) - Closed Specialty Diagnoses / Procedures Referred By Contact Refer red To Contact Family Medicine Referral ID Status Reason Start Date Expiration Date Visits Requ ested Visits Authorized [id number] Closed 12/17/2020 12/17/2021 1 1 Encounter Details Date Type Department Care Team Description 12/19/2020 Office Visit Department of Family Anthony Carpenter Attent ion Deficit With Medicine, Prim[place] Zuñiga APRN, [facility]acti [facility], in William Langford, M.S .N. (Primary Dx) [place] [address] [facility] [phone] Social History Tobacco Use Types Packs/Day Years [...] you attend yarsani or Patient refused 2020 worship services? Do you belong to any clubs or No 07/17/2021 organizations such as yarsani groups, unions, fraTranspond or athletic groups, or school groups? How [...] Sign Reading Time Taken Comments Blood Pressure 126/82 12/19/2020 10:32 AM RECOVERY ROOM RN Pulse 90 12/19/2020 10:32 AM RECOVERY ROOM RN Temperature 36.7 ??C (98 ??F) 12/19/2020 10:32 AM RECOVERY ROOM RN Respiratory Rate 20 12/19/2020 10:32 AM RECOVERY ROOM RN Oxygen Saturation - - Inhaled Oxygen Concentration - - Weight 65.5 kg (144 lb 6.4 oz) 12/19/2020 10:32 AM RECOVERY ROOM RN Height - - Body Mass Index 24.81 11/08/2020 9:28 AM RECOVERY ROOM RN documented in this encounter Progress Notes Anthony Carpenter, C.N.P., M.S.N. - 12/19/2020 11:00 AM CST SUBJECTIVE CHIEF COMPLAINT / REASON FOR VISIT Alon Jaimes is a 45 y.o. male who presents for evaluation of Follow-up (Attention deficit hyperactivity disorder). HISTORY OF PRESENT ILLNESS Alon Jaimes is a 45 y.o. male who is here today for ADHD follow up. Initially visit was post be follow-up after a work comp injury but he would prefer to do his attention deficit hyperactivity disorder follow-up today as he has an appointment with occupational medicine December 24. Patient reports that his Adderall continues to work well and he has not noticed any side effects. He feels likehe is on the appropriate dose. REVIEW OF SYSTEMS General: No unintentional weight loss, no profound fatigue, no insomnia. Cardiac: No chest pain or pressure, no palpitations. Gastrointestinal: No nausea or vomiting. Appetite is stable. Mental status: As per history of present illness. MEDICAL HISTORY Patient Active Problem List Diagnosis ??? Anxiety ??? Attention Deficit With Hyperactivity Disorder ??? Pain Shoulder Left MEDICATIONS Current Outpatient Medications: ??? acetaminophen (for_TYLENOL) 500 mg tablet, Take 1,000 mg by mouth., Disp: , Rfl: ??? albuterol inhaler, Inhale 2 puffs every 4 (four) hours as needed for wheezing or shortness of breath., Disp: 3 Inhaler, Rfl: 3 ??? dextroamphetamine-amphetamine (AdderalL) 10 mg tablet, Take 1 tablet (10 mg total) by mouth 2 (two) times a day., Disp: 58 tablet, Rfl: 0 ??? dextroamphetamine-amphetamine (ADDERALL) 10 mg tablet, Take 1 tablet (10 mg total) by mouth 2 (two) times a day., Disp: 60 tablet, Rfl: 0 ??? dextroamphetamine-amphetamine (ADDERALL) 10 mg tablet, Take 1 tablet (10 mg total) by mouth 2 (two) times a day., Disp: 60 tablet, Rfl: 0 ??? dextroamphetamine-amphetamine (ADDERALL) 10 mg tablet, Take 1 tablet (10 mg total) by mouth 2 (two) times a day., Disp: 60 tablet, Rfl: 0 ALLERGIES Allergies Allergen Reactions ??? Gadolinium-Containing Contrast Media Rash ??? Adhesive Tape-Silicones Other (see comments) ??? Ketorolac Other (see comments) and Itching Cerner listed no reactions ??? Latex Other (see comments) Cerner listed no reactions ??? Penicillins Other (see comments) and GI intolerance Cerner listed no reactions ??? Tramadol Rash OBJECTIVE VITAL SIGNS BP 126/82 (BP Location: Right arm, Patient Position: Sitting, Cuff Size: Regular) Pulse 90 Temp 36.7 ??C (Temporal) Resp 20 Wt 65.5 kg BMI 24.81 kg/m?? PHYSICAL EXAMINATION General: Patient is alert [...] depth of respiration. Lungs are clear. Mental status: Affect is normal. Speech is clear and coherent. Thought process is appropriate. ASSESSMENT / PLAN DIAGNOSIS #1 Attention Deficit With Hyperactivity Disorder - Controlled Substance Monitoring Panel, Urine; Future; Expected date: 12/19/2020 -patient is due for a random drug screening given he is on a controlled substance so this has been ordered. Patient was instructed to go down to lab to provide a urine sample. Of note he was prescribedPercocet on December 17 and [place] on November 26. Once we receive the results of the drug test will go ahead and send a prescription for his Adderall Patient reports that he is in some pain and discomfort after his fall down 9 stairs at work. He is requesting pain medication. I did prescribe a short-term prescription of Percocet. Potential side effects of medication discussed. He will follow-up with occupational medicine on December 24 for further management. Anthony Carpenter C.N.P., M.S.N. VERY ROOM RN documented in this encounter Plan of Treatment Not on filedocumented as of this encounter Visit Diagnoses Diagnosis Attention Deficit With Hyperactivity Dis order - Primary documented in this encounter Additional Health Concerns Assessment Noted Time PHQ-9 Depression Total Score: 16 12/29/2019 7:41 AM CD T documented as of this encounter Care Teams Remelt Operator Relationship Specialty Start Date End Date Anthony Carpenter APRN C.N.P., PCP - General Family Medicine M.S.N. [address] [facility] [place] [address] documented as of this encounter
--- OUTSIDE RECORDS SUMMARY | 2022-08-19 06:52 | XMS_ITS | Encounter Summary ---
:1975 Author Organization [facility] Address [address] [place] [address] Care Team Providers Name Role Phone Jayden Anthony Zuñiga APRN, C.N.P., M.S.N. Primary Care Provider + Reason for Visit Reason Comments MRO Review Marj's - Carmen Encounter Details Date Type Department Care Team Description 07/05/2020 Office Visit Department of Occupational Arline Cagle, Drug Screen Medicine in Jeff Mendoza M.D., M.P. H. [address] [phone] (Wo rk) Social History Tobacco Use Types [...] you attend confucianism or Patient refused 2020 confucianism services? Do [...] to pay for the very basics like Adisn hat hard 07/17/2021 food, housing, medical care, [...] documented as of this encounter Progress Notes Haylee Pedersen L.P.N. - 07/05/2020 9:30 AM CDT MRO Review for Marjlaura Carmen. documented in this encounter Plan of Treatment Not on filedocumented as of this encounter Visit Diagnoses Diagnosis Drug Screen documented in this encounter Additional Health Concerns Assessment Noted Time PHQ-9 Depression Total Score: 16 12/29/2019 7:41 AM CD T documented as of this encounter Care Teams Battery Recharger Relationship Specialty Start Date End Date Anthony Carpenter, ELA, C.N.P., PCP - General Family Medicine M.S.N. [address] [phone] documented as of this encounter
--- OUTSIDE RECORDS SUMMARY | 2022-08-19 06:52 | XMS_ITS | Encounter Summary ---
:1975 Author Organization [facility] Address [address] [place] [address] Care Team Providers Name Role Phone nAthony Carpenter APRN, C.N.P., M.S.N. Primary Care Provider + Reason for Visit Reason Comments Fall Encounter Details Date Type Department Care Team Description 07/17/2020 - Emergency [facility] History Of Falling (Primary Dx); 07/18/[address] [place] [phone] Social History Tobacco Use Types Packs/Day [...] or relatives? How often do you attend synagogue or Patient refused 2020 druze services? Do you belong to any clubs or No 07/17/2021 organizations such as synagogue groups, unions, fraternal or athletic groups, or [...] Inhale 2 puffs every 3 Inhaler 3 12/29/19 20 08/09/2020 4 (four) hours as needed for wheezing or shortness of breath. dextroamphetamine-ampheta Take 1 tablet (10 mg 60 tablet 0 10/07/2019 08/09/2020 mine (Adderall) 10 mg total) by mouth 2 tablet (two) times a day. dextroamphetamine-ampheta Take 1 tablet (10 mg 60 tablet 0 12/29/2019 12/19/2020 mine (ADDERALL) 10 mg total) by mouth 2 tablet (two) times a day. dextroamphetamine-ampheta Take 1 tablet (10 mg 60 tablet 0 01/28/2020 08/09/2020 mine (ADDERALL) 10 mg total) by mouth 2 tablet (two) times a day. dextroamphetamine-ampheta Take 1 tablet (10 mg 60 tablet 0 02/27/2020 08/09/2020 mine (ADDERALL) 10 mg total) by mouth 2 tablet (two) times a day. meloxicam (MOBIC) 15 mg Take 1 tablet (15 mg 21 tablet 0 11/08/2020 tablet total) by mouth daily. methocarbamoL (ROBAXIN) Take 1 tablet (750 50 tablet 0 06/1211/08/2020 750 mg tablet mg total) by mouth 4 (four) times a day as needed for muscle spasms. documented as of this encounter Plan of Treatment Not on filedocumented as of this encounter Procedures Procedure Name Priority Date/Time Associated Comments Diagnosis DX SHOULDER RIGHT RAD - Semiurgent 07/17/2020 8:35 Pain Shoulder Re sults for this 2+ VIEWS (Fast; most ED PM CDT Right procedure are in patients; some the results inpatients) section. documented in this encounter Results DX Shoulder Right 2+ Views (07/17/2020 8:35 PM CDT) Anatomical Region Laterality Modality Upper Extremity, Shoulder, Musculoskeletal RST LOS, Right Digital Radiography Musculoskeletal ARZ LOS, Muskuloskeletal FLA LOS Specimen (Source) Anatomical Collection Method Collection Time Re ceived Time Location / / Volume Laterality 07/18/2020 8:24 AM CDT Impressions 07/18/2020 8:25 AM CDT No acute fracture or dislocation. Widening at the acromioclavicular joint is compatible with type II separat ion, which is age indeterminate. No acute fracture. Mild glenohumeral degene rative joint disease with small marginal osteophytes. Narrative 07/18/2020 8:25 AM CDT EXAM: DX SHOULDER RIGHT 2+ VIEWS Procedure Note Kanu Agrawal M.D. - 07/18/2020 EXAM: DX SHOULDER RIGHT 2+ VIEWS IMPRESSION: No acute fracture or dislocation. Wideni ng at the acromioclavicular joint is compatible with type II separat ion, which is age indeterminate. No acute fracture. Mild glenohumeral degene rative joint disease with small marginal osteophytes. Kanu Abraham P.A.-C., M.S. IMG DIAGNOSTIC IMAGING PROC EDURES documented in this encounter Visit Diagnoses Diagnosis History Of Falling - Primary Pain Shoulder Right documented in this encounter Additional Health Concerns Assessment Noted Time PHQ-9 Depression Total Score: 16 12/29/2019 7:41 AM CD T documented as of this encounter Care Teams Title I Assistant Relationship Specialty Start Date End Date Anthony Carpenter, ELA, C.N.P., PCP - General Family Medicine M.S.N. [address], [place] [phone] documented as of this encounter
--- OUTSIDE RECORDS SUMMARY | 2022-08-19 06:52 | XMS_ITS | Encounter Summary ---
:1975 Author Organization [facility] Address [address] [place] [address] Care Team Providers Name Role Phone Anthony Carpenter APRN C.N.Harsha, M.S.N. Primary Care Provider + Reason for Referral Outpatient (Routine) - Closed Specialty Diagnoses / Procedures Referred By Contact Refer red To Contact Diagnoses Preplacement Exam Anyi Corado P.A.-CPatricia [facility] Procedures OCC Drug screening [address] [place] [phone] Referral ID Status Reason Start Date Expiration Date Visits Requ ested Visits Authorized [id number] Closed 11/08/2020 11/08/2021 1 1 NO FLOOR PERSON Reason for Visit Reason Comments Labs Only [place] [facility] [place] FBO Encounter Details Date Type Department Care Team Description 11/08/[address] Department of [facility], Preplaceme nt Exam Occupational Vanessa Celeste, (Primary Dx) Medicine in [place], [place] [address] [place] [phone] Social History Tobacco Use Types Packs/Day Years [...] you attend lutheran or Patient refused 2020 anabaptism services? Do you belong to any clubs [...] Type Priority Associated Diagnoses Order S chedule OCC Drug screening Procedures Routine Preplacement Exam Orde red: 11/08/2020 documented as of this encounter Visit Diagnoses Diagnosis Preplacement Exam - Primary documented in this encounter Additional Health Concerns Assessment Noted Time PHQ-9 Depression Total Score: 16 12/29/2019 7:41 AM CD T documented as of this encounter Care Teams Can Operator Relationship Specialty Start Date End Date Anthony Carpenter, ELA, C.N.P., PCP - General Family Medicine MOswaldoNPatricia [address] [place] [address] documented as of this encounter
--- OUTSIDE RECORDS SUMMARY | 2022-08-19 06:52 | XMS_ITS | Encounter Summary ---
:1975 Author Organization [facility] Address [address] [place] [address] Care Team Providers Name Role Phone Anthony Carpenter APRN, C.N.P., M.S.N. Primary Care Provider + Reason for Visit Reason Comments Earache COVID Nurse [facility] Encounter Details Date Type Department Care Team Description 10/22/2020 Nurse Triage Department of Nani Dewey, Ear ache; COVID [facility], [facility] [phone] [place] (Work) [address] [place] [address] Social History Tobacco Use Types [...] you attend scientology or Patient refused 2020 lutheran services? Do you belong to any clubs [...] or the highest technical, or vocational p [employer] degree you have received? Sex Assigned at Date Recorded Not on file documented as of this encounter Miscellaneous Notes Telephone Encounter - Nani Reilly R.N. - 10/22/2020 1:09 PM CST COVID-19 Nurse Line Screening ASSESSMENT Combo COVID + Upper Respiratory Infection (URI) Screening Select the most appropriate pathway: : Adult Have you had close contact* with a person who has a LABORATORY CONFIRMED case of COVID-19 in the past 14 days?: No (Continue Screening) In the last 48 hours, have you had a fever* OR symptoms that are unrelated to a preexisting illness?: No symptoms noted (Continue Screening) Have you tested positive for COVID-19 in the last 90 days?: No (Continue Screening) Have you been advised to undergo testing or are you requesting testing?: No (End Screening)- Testingnot indicated Testing Recommendation Endpoint Is testing recommended? : Not recommended to test PLAN Endpoint recommendation: Screening negative, testing not indicated at this time Care Points: -Wash hands frequently with soap and water for at least 20 seconds -Wear a mask over your nose and mouth. A cloth face cover is not a substitute for social distancing -Continue to keep about 6 feet between yourself and others. --Notify your regular care provider of any new or worsening symptoms. Asymptomatic without exposure Carepoints: Testing is not recommended at this time. If you become symptomatic, please call back for additional screening. Education: Patient/caregiver able to teach back Patient agreeable to plan of care: Yes The following references were used: [facility] novel coronavirus (COVID- 19) resources Nursing judgement [facility] Telephone Encounter - Nani Reilly R.N. - 10/22/2020 1:02 PM CST Chief Complaint / Reason for Call Patient is a 44 y.o. male calling regarding Earache and COVID Nurse Line. Assessment Concern: Right ear pain and can't hear out of it. Rates pain 10/10. Patient reports yellowish ear drainage that is tinged with blood. Present for: 1 month Home cares tried: Ear drops, ibuprofen, Tylenol, Aleve Calling to request: An appointment The recommended disposition is See a health care provider within 4 hours. The patient was warm transferred to the coding coordinator for scheduling. Reason for Disposition ??? [1] SEVERE pain AND [2] not improved 2 hours after taking analgesic medication (e.g., ibuprofen or acetaminophen) Protocols used: [id number] Care Advice Patient/Caregiver understands and will follow care advice?: Yes, able to teach back CALL BACK IF: * You become worse. [facility] documented in this encounter Plan of Treatment Not on filedocumented as of this encounter Visit Diagnoses Not on filedocumented in this encounter Additional Health Concerns Assessment Noted Time PHQ-9 Depression Total Score: 16 12/29/2019 7:41 AM CD T documented as of this encounter Care Teams Head Custodian Relationship Specialty Start Date End Date Anthony Carpenter, ELA, C.N.P., PCP - General Family Medicine M.S.N. [address] [phone] documented as of this encounter
--- OUTSIDE RECORDS SUMMARY | 2022-08-19 06:52 | XMS_ITS | Encounter Summary ---
:1975 Author Organization [facility] Address [address] [place] [address] Care Team Providers Name Role Phone Jayden Anthony Zuñiga APRN, C.N.P., M.S.N. 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 (Primary Dx) in [place], [address] [facility] [address] [place] [phone] Social History Tobacco Use Types Packs/Day Years Used Date Smoking Tobacco: Never Smokeless Tobacco: Current Chew Tobacco Cessation: Counseling Given: Yes Comments: 1 can per week. [...] attend oriental orthodox or Patient refused 2020 taoist services? Do [...] Reading Time Taken Comments Blood Pressure 147/85 11/08/2020 9:28 AM IMPOSER Pulse 85 11/08/2020 9:28 AM IMPOSER Temperature 36.8 ??C (98.3 ??F) 11/08/2020 9:28 AM IMPOSER Respiratory Rate - - Oxygen Saturation 99% 11/08/2020 9:28 AM IMPOSER Inhaled Oxygen Concentration - - Weight 66 kg (145 lb 9.8 oz) 11/08/2020 9:28 AM IMPOSER Height 162.5 cm (5' 3.98) 11/08/2020 9:28 AM IMPOSER Body Mass Index 25.01 11/08/2020 9:28 AM IMPOSER documented in this encounter Progress Notes Anyi Corado P.A.-C. 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 male presenting today for a pre-placement physical. 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 He has no concerns with his ability to perform the tasks expected of him in this position. He normally sees Anthony Carpenter C.N.P. M.S.N. for primary care. The patient does not have any current complaints. Patient completed Pre-Employment History Evaluation Questionnaire, this is reviewed in detail. He does report a history of ADHD that is well-controlled on Adderall 10 mg twice daily. This is managed by his PCP Anthony Carpenter. Patient benefits from this medication and no side effects are noted from chart review. The following portions of the patient's medical history were reviewed and updated as appropriate: allergies, current medications, medical history, social history, surgical history and problem list REVIEW OF SYSTEMS ROS negative, as documented on the Pre-Employment History Evaluation Questionnaire completed on 11/08/20 OBJECTIVE VITAL SIGNS Vitals: 11/08/20 0928 BP: 147/85 Pulse: 85 Temp: 36.8 ??C SpO2: 99% PHYSICAL EXAMINATION General: Alert, relaxed male, under no acute distress. Neurological: Thought processes coherent, oriented to person, place and time. Skin: Warm, moist. No lesions or ecchymosis. HEENT: Normocephalic, atraumatic. Pupils equal, round, reactive to light and accommodation. Extraocular movements intact. Heart: S1, S2. Regular rate and rhythm. No murmurs, gallops or rubs. Lungs: Clear to auscultation bilaterally. Abdomen: Soft, nontender to palpation. No hepatosplenomegaly. Extremities: Warm and well perfused. No joint pain or deformities. GENITALIA: No evidence of inguinal hernia. ASSESSMENT / PLAN Encounter Diagnosis Name Primary? Preplacement Exam Yes The job description, Pre-Employment Questionnaire, and diagnostic testing have been reviewed. BP slightly elevated, on recheck is 142/87. Patient will continue to monitor and if persistently above 140/90, will schedule a visit with his PCP to discuss. May proceed with employment without restrictions. He will require use of corrective lenses. Appropriate forms filled out for the employer, see scanned documents for details. Thank you for letting me be involved in your care. SER documented in this encounter Plan of Treatment Not on filedocumented as of this encounter Visit Diagnoses Diagnosis Preplacement Exam - Primary documented in this encounter Additional Health Concerns Assessment Noted Time PHQ-9 Depression Total Score: 16 12/29/2019 7:41 AM CD T documented as of this encounter Care Teams Delivery Agent Relationship Specialty Start Date End Date Anthony Carpenter APRN, C.N.P., PCP - General Family Medicine M.S.N. [address] [phone] documented as of this encounter
--- OUTSIDE RECORDS SUMMARY | 2022-08-19 06:52 | XMS_ITS | Encounter Summary ---
:1975 Author Organization [facility] Address [address] [place] [address] Care Team Providers Name Role Phone Anthony Carpenter APRN, C.N.P., M.S.N. Primary Care Provider + Reason for Visit Reason Comments Elbow Injury Encounter Details Date Type Department Care Team Description 09/20/2020 - Emergency [facility] Injury Arm Initial Right 09/21/[address] (Primary Dx) [place] [address] Social History Tobacco Use Types Packs/Day [...] you attend caodaism or Patient refused 2020 uatsdin services? Do you belong to any clubs [...] 1 tablet (10 mg 60 tablet 0 08/09/2020 11/19/2020 mine (AdderalL) 10 mg total) by mouth [...] of this encounter Visit Diagnoses Diagnosis Injury Arm Initial Right - Primary documented in this encounter Additional Health Concerns Assessment Noted Time PHQ-9 Depression Total Score: 16 12/29/2019 7:41 AM CD T documented as of this encounter Care Teams Fractionation Plant Supervisor Relationship Specialty Start Date End Date Anthony Carpenter, ELA, C.N.P., PCP - General Family Medicine M.S.N. [address] [phone] documented as of this encounter
--- OUTSIDE RECORDS SUMMARY | 2022-08-19 06:52 | XMS_ITS | Encounter Summary ---
:1975 Author Organization [facility] Address [address] [place] [address] Care Team Providers Name Role Phone Anthony Carpenter APRN, C.N.PPatricia, M.S.N. Primary Care Provider + Reason for Visit Reason Comments Med Refill Encounter Details Date Type Department Care Team Description 08/09/2020 Refill Department of Family Medicine, Anthony Carpenter APRN, Med Refill [facility], in [place], C. N.Harsha, M.S.N. [place] [address] [place] [address] [place] [address] [facility] [phone] Social History Tobacco Use Types Packs/Day Years [...] you attend confucianism or Patient refused 2020 scientologist services? Do you belong to any clubs [...] to pay for the very basics like @Pay hat hard 07/17/2021 food, housing, medical care, [...] documented as of this encounter Care Teams Supply Chain Consultant Relationship Specialty Start Date End Date Anthony Carpenter, ELA, C.N.P., PCP - General Family Medicine M.S.N. [address] [phone] documented as of this encounter
--- OUTSIDE RECORDS SUMMARY | 2022-08-19 06:52 | XMS_ITS | Encounter Summary ---
:1975 Author Organization [facility] Address [address] [place] [address] Care Team Providers Name Role Phone Anthony Carpenter APRN C.N.PPatricia, M.S.N. Primary Care Provider + Encounter Details Date Type Department Care Team Description 07/03/2020 Clinical Communication Department of [facility] Anthony Carpenter, Medicine, [place] ELA, C.N.PPatricia, Clinic, in [place], [facility] [address] [address] [place] [phone] Social History Tobacco Use Types Packs/Day Years [...] you attend yazidism or Patient refused 2020 taoism services? Do [...] to pay for the very basics like [employer] hat hard 07/17/2021 food, housing, medical [...] documented as of this encounter Care Teams Sample Supervisor Relationship Specialty Start Date End Date Anthony Carpenter, ELA, C.N.P., PCP - General Family Medicine M.S.N. [address] [phone] documented as of this encounter
--- OUTSIDE RECORDS SUMMARY | 2022-08-19 06:52 | XMS_ITS | Encounter Summary ---
:1975 Author Organization [facility] Address [address] [place] [address] Care Team Providers Name Role Phone Anthony Carpenter APRN C.N.P., M.S.N. Primary Care Provider + Encounter Details Date Type Department Care Team Description 12/19/2020 Hospital Encounter Department of Anthony Carpenter on Deficit With Laboratory Medicine ELA Zuñiga, Hyperact ivity Disorder in [place] M.S.N. [address] [facility] [address] [place], [place] [phone] Social History Tobacco Use Types Packs/Day [...] you attend gnosticism or Patient refused 2020 faith services? Do you belong to any clubs [...] to pay for the very basics like [employer] hat hard 07/17/2021 food, housing, medical care, [...] breath. dextroamphetamine-ampheta Take 1 tablet (10 mg 58 tablet 0 11/21/2020 03/08/2021 mine (AdderalL) 10 mg total) by mouth 2 tablet (two) times a day. oxyCODONE-acetaminophen Take 1 [...] documented as of this encounter Care Teams Casting Wheel Operator Helper Relationship Specialty Start Date End Date Anthony Carpenter, ELA, C.N.P., PCP - General Family Medicine M.S.N. [address] [place] [phone] documented as of this encounter
--- OUTSIDE RECORDS SUMMARY | 2022-08-19 06:52 | XMS_ITS | Encounter Summary ---
:1975 Author Organization [facility] Address [address] [place] [address] Care Team Providers Name Role Phone Anthony Carpenter APRN C.N.PPatricia, M.S.N. Primary Care Provider + Encounter Details Date Type Department Care Team Description 08/27/2020 Clinical Communication Department of [facility] Anthony Carpenter, Medicine, [place] ELA, C.N.PPatricia, Clinic, in [place], [facility] [address] [place] [phone] Social History Tobacco Use Types Packs/Day Years [...] you attend yarsani or Patient refused 2020 pentecostal services? Do [...] to pay for the very basics like [employer] hat hard 07/17/2021 food, housing, medical care, [...] Telephone Encounter - Florinda Arndt L.P.N. - 08/28/2020 5:16 PM ENTRY LEVEL CIVIL ENGINEER Left message asking dad to provide child's name and along with the name of medication and what his concerns are so that we can gather as much information as we can for the provider. Y LEVEL CIVIL ENGINEER Telephone Encounter - Anthony Carpenter APRN, C.N.P., M.S.N. - 08/28/2020 4:56 PM CST If he has concerns about the medication that his child takes he should contact his child's provider.If that is me please call and get additional information from him as to what medication he is referring to and what his specific concerns are. Y LEVEL CIVIL ENGINEER Telephone Encounter - Hadley Lopez - 08/27/2020 5:21 PM CST Reason for Communication: Patient called in. He just had his kids over this past weekend and was given a bottle of medication from his ex- for his 5-year-old, but no specification of what the medications are. Patient held onto a few pills and would like to discuss this with Anthony Carpenter. Current Can Nursing/Provider leave a detailed message: Yes Did the patient refuse triage through Nurse line? (for symptom based concerns): N/a Action Needed: Please call patient back. Name of Medication (if relevant): N/a Y LEVEL CIVIL ENGINEER documented in this encounter Plan of Treatment Not on filedocumented as of this encounter Visit Diagnoses Not on filedocumented in this encounter Additional Health Concerns Assessment Noted Time PHQ-9 Depression Total Score: 16 12/29/2019 7:41 AM CD T documented as of this encounter Care Teams Software Sales Consultant Relationship Specialty Start Date End Date Anthony Carpenter, MEDICAL CLAIMS EXAMINER, C.N.P., PCP - General Family Medicine M.S.N. [address] [phone] documented as of this encounter
--- OUTSIDE RECORDS SUMMARY | 2022-08-19 06:52 | XMS_ITS | Encounter Summary ---
:1975 Author Organization [facility] Address [address] [place] [address] Care Team Providers Name Role Phone Anthony Carpenter APRN, C.N.PPatricia, M.S.N. Primary Care Provider + Reason for Visit Reason Comments Med Refill Encounter Details Date Type Department Care Team Description 08/09/2020 Refill Department of Family Medicine, Anthony Carpenter APRN, Med Refill [facility], in [place], C. N.Harsha, M.S.N. [place] [address] [place] [address] [place] [address] [facility] [phone] Social History Tobacco Use Types Packs/Day Years [...] you attend sabianist or Patient refused 2020 spiritism services? Do [...] to pay for the very basics like [employer] hat hard 07/17/2021 food, housing, medical care, [...] highest level of school Associate degree: occupa alber, 06/29/2019 you have completed or the highest technical, or vocational p rogram degree you have received? Sex Assigned at Date Recorded Not on file documented as of this encounter Miscellaneous Notes Telephone Encounter - Florinda Arndt L.P.N. - 08/09/2020 2:39 PM CDT Anthony, patient said we can use the [facility] in [place] as that is where he lives and would like to pick his medications up there please advise thank you Telephone Encounter - Anthony Carpenter APRN C.N.P., M.S.N. - 08/09/2020 1:46 PM CDT He normally picks this up at [facility]. Is he changing his pharmacy to [facility] permanently? He needs to make sure to tack picker the medication at the same pharmacy as part of thecontrolled substance agreement. Telephone Encounter - Florinda Arndt L.P.N. - 08/09/2020 10:46 AM CDT Anthony I talked to patient, he is requesting Adderall and has not had it filled since February. Is this something you can refill for him or do you need to see him? He stated he has a lot going on right now andwould like to be back on it. He would like this sent to [facility] in [place] please advise thank you Telephone Encounter - Florinda Arndt L.P.N. - 08/09/2020 10:29 AM CDT Lmtcb is patient requesting this medication? Last fill was in February Telephone Encounter - Vonnie Wells - 08/09/2020 10:11 AM CDT Nurse review: Unable to forward request to provider; Stimulant Primary Provider: Anthony Carpenter APRN, C.N.P., M.S.N. Telephone Encounter - Latha Kilgore - 08/09/2020 10:09 AM CDT Name of Medication:adderall Primary Provider: Anthony Carpenter APRN, C.NCristine, M.S.N. Strength: 10 mg Frequency: 2x daily Pharmacy (include location): [facility] Patient is completely out of medication documented in this encounter Plan of Treatment Not on filedocumented as of this encounter Visit Diagnoses Not on filedocumented in this encounter Additional Health Concerns Assessment Noted Time PHQ-9 Depression Total Score: 16 12/29/2019 7:41 AM CD T documented as of this encounter Care Teams Verification Clerk Relationship Specialty Start Date End Date Anthony Carpenter APRN C.N.PPatricia, PCP - General Family Medicine M.S.N. [address] [phone] documented as of this encounter
--- OUTSIDE RECORDS SUMMARY | 2022-08-19 06:52 | XMS_ITS | Encounter Summary ---
:1975 Author Organization [facility] Address [address] [place] [address] Care Team Providers Name Role Phone Anthony Carpenter APRN C.N.PPatricia, M.S.N. Primary Care Provider + Reason for Referral MRI/CAT/PET Scan (Routine) - Denied Specialty Diagnoses / Procedures Referred By Contact Refer red To Contact Radiology Diagnoses Pain Shoulder Right Anthony Carpenter APRN, [facility] Region Procedures MR Shoulder Right without IV Contrast C.N.P., M.S.N. [address] [place] [phone] Referral ID Status Reason Start Date Expiration Date Visits Requ ested Visits Authorized [id number] Denied 06/27/2020 06/27/2021 1 0 Reason for Visit MRI/CAT/PET Scan (Routine) - Denied Specialty Diagnoses / Procedures Referred By Contact Refer red To Contact Radiology Diagnoses Pain Shoulder Right Anthony Carpenter [facility]N [facility] [place] Region Procedures MR Shoulder Right without IV Contrast C.N.P., M.S.N. [address] [place] [phone] Referral ID Status Reason Start Date Expiration Date Visits Requ ested Visits Authorized [id number] Denied 06/27/2020 06/27/2021 1 0 Encounter Details Date Type Department Care Team Description 07/23/2020 Hospital Encounter Department of Anthony Carpenter Pain Sh oulder Right Radiology in [place] C.N.P., M.S.N. [address] [facility] [address] [place] [phone] Social History Tobacco Use Types Packs/Day [...] or relatives? How often do you attend anabaptism or Patient refused 2020 restorationist services? Do you belong to any clubs or No 07/17/2021 organizations such as anabaptism groups, unions, fraternal or athletic groups, or [...] Priority Date/Time Associated Comments Diagnosis MR SHOULDER RIGHT RAD - Routine 07/23/2020 4:10 Pain Shoulder Resul ts for this WITHOUT IV (most inpatients PM CDT Right procedure a re in CONTRAST and all the results outpatients) section. documented in this encounter Results MR Shoulder Right without IV Contrast (07/23/2020 4:10 PM CDT) Anatomical Region Laterality Modality Upper Extremity, Shoulder, Musculoskeletal RST LOS, Right Magnetic Resonance Musculoskeletal ARZ LOS, Muskuloskeletal FLA LOS Specimen (Source) Anatomical Collection Method Collection Time Re ceived Time Location / / Volume Laterality 07/23/2020 4:11 PM CDT Impressions 07/23/2020 4:16 PM CDT 1.Slight degenerative changes of the acr omioclavicular glenohumeral joint spaces. Mild anterior downsloping the di stal acromion, proper clinical context may be associated chronic mechanical imp ingement symptomatology. 2. ??Subcortical bone marrow edema invol ving the proximal humeral head adjacent to the base of the greater, lesser tuber osities, may be associated chronic tendinopathy and/or sequela of subacute bone contusion. 3. Mild tendinopathy of the super space, infraspinatus, subscapularis and biceps tendons no focal full-thickness tears. Narrative 07/23/2020 4:16 PM CDT EXAM: MR SHOULDER RIGHT WITHOUT IV CONTRAST COMPARISON: September 14, 2018 FINDINGS: SUPRASPINATUS: ??Mild tendinopathy of th e mid, distal supraspinatus tendon. Small amount of fraying involving mid, distal bursal and articular surface fibers of the supraspinatus tendon. No focal full- thickness tears. No retraction. No appreciable atrophy of the supraspinatus muscle. INFRASPINATUS: ??Punctate rim rent type tear involving the posterior, distal infraspinatus tendon. No focal full-thic kness tears. No retraction. No appreciable atrophy of the infraspinatus muscle. SUBSCAPULARIS: ??Trace tendinopathy of t he mid, distal subscapularis tendon. Trace fraying involving the distal bursa l and articular surface fibers of the subscapularis tendon. No focal full-thic kness tears. No retraction. No appreciable atrophy of the subscapularis muscle. BICEPS TENDON: ??Mild tenosynovitis of t he biceps tendon beginning at the level the biceps tendon groove and extending d istally. LABRUM: ??No intra-articular gadolinium. Trace fraying along the free edges of th e labrum. CHONDROMALACIA: ??Mild chondromalacia in volving the anterior, inferior glenoid rim. GLENOHUMERAL ACROMIOCLAVICULAR JOINTS: ? ?Slight degenerative changes of the acromioclavicular glenohumeral joint spa carey. Mild anterior downsloping the distal acromion, proper clinical context may be associated chronic mechanical impingement symptomatology. BURSA: ??Physiologic bursal fluid BONES: ??No stress or insufficiency frac tures. Subcortical bone marrow edema involving the proximal humeral head adjacent to the base of the greater, lesser tuberosi ties, may be associated chronic tendinopathy and/or sequela of subacute bone contusion. JOINT FLUID: ??Physiologic Procedure Note Noah Mcdonald M.D. - 07/23/2020Forma tting of this note might be different from the original. EXAM: MR SHOULDER RIGHT WITHOUT IV CONTR AST COMPARISON: September 14, 2018 FINDINGS: SUPRASPINATUS: Mild tendinopathy of the mid, distal supraspinatus tendon. Small amount of fraying involving mid, distal bursal and articular surface fibers of the supraspinatus tendon. No focal full- thickness tears. No retraction. No appreciable atrophy of the supraspinatus muscle. INFRASPINATUS: Punctate rim rent type te ar involving the posterior, distal infraspinatus tendon. No focal full-thic kness tears. No retraction. No appreciable atrophy of the infraspinatus muscle. SUBSCAPULARIS: Trace tendinopathy of the mid, distal subscapularis tendon. Trace fraying involving the distal bursa l and articular surface fibers of the subscapularis tendon. No focal full-thic kness tears. No retraction. No appreciable atrophy of the subscapularis muscle. BICEPS TENDON: Mild tenosynovitis of the biceps tendon beginning at the level the biceps tendon groove and extending d istally. LABRUM: No intra-articular gadolinium. Trace fraying along the free edges of th e labrum. CHONDROMALACIA: Mild chondromalacia invo lving the anterior, inferior glenoid rim. GLENOHUMERAL ACROMIOCLAVICULAR JOINTS: S light degenerative changes of the acromioclavicular glenohumeral joint spa carey. Mild anterior downsloping the distal acromion, proper clinical context may be associated chronic mechanical impingement symptomatology. BURSA: Physiologic bursal fluid BONES: No stress or insufficiency fractu res. Subcortical bone marrow edema involving the proximal humeral head adjacent to the base of the greater, lesser tuberosi ties, may be associated chronic tendinopathy and/or sequela of subacute bone contusion. JOINT FLUID: Physiologic IMPRESSION: 1.Slight degenerative changes of the acr omioclavicular glenohumeral joint spaces. Mild anterior downsloping the di stal acromion, proper clinical context may be associated chronic mechanical imp ingement symptomatology. 2. Subcortical bone marrow edema involvi ng the proximal humeral head adjacent to the base of the greater, lesser tuber osities, may be associated chronic tendinopathy and/or sequela of subacute bone contusion. 3. Mild tendinopathy of the super space, infraspinatus, subscapularis and biceps tendons no focal full-thickness tears. Anthony Carpenter APRN, C.N.P., M.S.N. IMG MRI PROCEDURES documented in this encounter Visit Diagnoses Diagnosis Pain Shoulder Right documented in this encounter Additional Health Concerns Assessment Noted Time PHQ-9 Depression Total Score: 16 12/29/2019 7:41 AM CD T documented as of this encounter Care Teams Duplex Trimmer Relationship Specialty Start Date End Date Anthony Carpenter APRN, C.N.P., PCP - General Family Medicine M.S.N. [address] [phone] documented as of this encounter
--- OUTSIDE RECORDS SUMMARY | 2022-08-19 06:52 | XMS_ITS | Encounter Summary ---
:1975 Author Organization [facility] Address [address] [place] [address] Care Team Providers Name Role Phone Anthony Carpenter APRN, C.N.PPatricia, M.S.N. Primary Care Provider + Reason for Referral MRI/CAT/PET Scan (Routine) - Denied Specialty Diagnoses / Procedures Referred By Contact Refer red To Contact Radiology Diagnoses Pain Shoulder Right Anthony Carpenter APRN, [facility] Region Procedures MR Shoulder Right without IV Contrast C.N.P., M.S.N. [address] [place] [phone] Referral ID Status Reason Start Date Expiration Date Visits Requ ested Visits Authorized [id number] Denied 06/27/2020 06/27/2021 1 0 Reason for Visit Reason Comments Follow-up shoulder strain 06/26 ER. Javed maier an MRI Appointment Request (Routine) - Closed Specialty Diagnoses / Procedures Referred By Contact Refer red To Contact Family Medicine Referral ID Status Reason Start Date Expiration Date Visits Requ ested Visits Authorized [id number] Closed 06/26/2020 06/26/2021 1 1 Encounter Details Date Type Department Care Team Description 06/27/2020 Office Visit Department of Family Anthony Carpenter Pai n Clavicle (Primary Dx); Medicine, [place] APRN, C.N.PPatricia, Pain [place] [facility], in [place], M.S.N. [place] [address] [place] [phone] Social History Tobacco Use Types Packs/Day Years Used Date Smoking Tobacco: Never Smokeless Tobacco: Current Chew Tobacco Cessation: Ready to Quit: No; Co unseling Given: Yes Alcohol Use Standard Drinks/Week Comments No 0 [...] you attend shinto or Patient refused 2020 voodoo services? Do [...] Sign Reading Time Taken Comments Blood Pressure 124/78 06/27/2020 10:20 AM CDT Pulse 76 06/27/2020 10:20 AM CDT Temperature 36.1 ??C (97 ??F) 06/27/2020 10:20 AM CDT Respiratory Rate 16 06/27/2020 10:20 AM CDT Oxygen Saturation - - Inhaled Oxygen Concentration - - Weight 64.1 kg (141 lb 5 oz) 06/27/2020 10:20 AM CDT Height - - Body Mass Index 23.54 08/03/2019 9:50 AM CDT documented in this encounter Patient Instructions Patient InstructionsAnthony Carpenter APRN, C.N.P., M.S.N. - 06/27/2020 11:00 AM CDT -recommend icing 3 times a day for 20 minutes per episode for the next 3 days. After that you can alternate between heat and ice. -take meloxicam in the morning with plenty of food and not with any other NSAIDs such as naproxen, Aleve, Advil, ibuprofen, ect.. -if you need a follow-up in regards to your clavicle injury I would recommend that you follow-up with occupational medicine. documented in this encounter Progress Notes Anthony Carpenter APRN, C.NPatrick., M.S.N. - 06/27/2020 11:00 AM CDT SUBJECTIVE CHIEF COMPLAINT / REASON FOR VISIT Alon Jaimes is a 44 y.o. male who presents for evaluation of Follow-up (shoulder strain 06/26 ER. Wants an MRI). HISTORY OF PRESENT ILLNESS Alon Jaimes is a(n) 44 y.o. male presents today for evaluation of an injury he sustained at work. 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 He was then evaluated by the safety and health consultant at work and they had concerns for a possible clavicle facture so he was instructed to go to the emergency department which he did. At that time an x-ray was done that showed anatomic alignment. There is spurring of the distal clavicle and spurring mild amount of increased soft tissue density. There is stable widening of the AC joint. 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 No displaced or acute fractures. The patient was given a prescription for oxycodone and a shoulder sling and it was recommended that he follow-up in 3-5 days. Patient continues to have right clavicle pain as well as right shoulder pain. He had a difficult time sleeping last night due to the pain. He cannot raise his arm above his head due to pain. He denies any numbness or tingling in the right arm. He is requesting an MRI of the shoulder. REVIEW OF SYSTEMS See HPI, remainder of [...] ??? Asthma Mother SOCIAL HISTORY Social History Socioeconomic History ??? Marital status: Spouse name: None ??? Number of children: None ??? Years of education: None ??? Highest education level: Associate degree: occupational, technical, or vocational program Occupational History Employer: [employer] Social Needs ??? Financial resource strain: Not hard at all ??? Food insecurity Worry: Never true Inability: Never true ??? Transportation needs Medical: No Non-medical: No Tobacco Use ??? Smoking status: Never Smoker ??? Smokeless tobacco: Current User Types: Chew Substance and Sexual Activity ??? Alcohol use: No Frequency: Never ??? Drug use: No ??? Sexual activity: Defer Lifestyle ??? Physical activity Days per week: 5 days Minutes per session: 10 min ??? Stress: To some extent Relationships ??? Social connections Talks on phone: Twice a week Gets together: Patient refused Attends voodoo service: Patient refused Active member of club or organization: No Attends meetings of clubs or organizations: Never Relationship status: ??? Intimate partner violence Fear of current or ex partner: None Emotionally abused: None Physically abused: None Forced sexual activity: None Other Topics Concern ??? None Social History Narrative ??? None MEDICATIONS Current Outpatient Medications on File Prior to Visit Medication Sig Dispense Refill ??? acetaminophen (for_TYLENOL) 500 mg tablet Take 1,000 mg by mouth. ??? albuterol inhaler Inhale 2 puffs every 4 (four) hours as needed for wheezing or shortness of breath. 3 Inhaler 3 ??? [DISCONTINUED] methylPREDNISolone (MEDROL DOSEPAK) 4 mg tablet Take by mouth as instructed per packaging. ??? [DISCONTINUED] naproxen (NAPROSYN) 500 mg tablet Take 500 mg by mouth. ??? [DISCONTINUED] oxyCODONE (ROXICODONE) 5 mg immediate release tablet Take 5 mg by mouth. ??? dextroamphetamine-amphetamine (Adderall) 10 mg tablet Take 1 tablet (10 mg total) by mouth 2 (two) times a day. 60 tablet 0 ??? dextroamphetamine-amphetamine (ADDERALL) 10 mg tablet Take 1 tablet (10 mg total) by mouth 2 (two) times a day. 60 tablet 0 ??? dextroamphetamine-amphetamine (ADDERALL) 10 mg tablet Take 1 tablet (10 mg total) by mouth 2 (two) times a day. 60 tablet 0 ??? dextroamphetamine-amphetamine (ADDERALL) 10 mg tablet Take 1 tablet (10 mg total) by mouth 2 (two) times a day. 60 tablet 0 ??? [DISCONTINUED] methocarbamoL (ROBAXIN) 750 mg tablet Take 1 tablet (750 mg total) by mouth 4 (four) times a day as needed for muscle spasms. 50 tablet 0 ??? [DISCONTINUED] methylPREDNISolone (MEDROL DOSEPAK) 4 mg tablet Take as directed on package. 21 tablet 0 No current facility-administered medications on file prior to visit. ALLERGIES Allergies Allergen Reactions ??? Gadolinium-Containing Contrast Media Rash ??? Adhesive Tape-Silicones Other (see comments) ??? Ketorolac Other (see comments) and Itching Cerner listed no reactions ??? Latex Other (see comments) Cerner listed no reactions ??? Penicillins Other (see comments) and GI intolerance Cerner listed no reactions ??? Tramadol Rash OBJECTIVE VITAL SIGNS BP 124/78 (BP Location: Left arm, Patient Position: Sitting, Cuff Size: Regular) Pulse 76 Temp 36.1 ??C (Temporal) Resp 16 Wt 64.1 kg BMI 23.54 kg/m?? PHYSICAL EXAMINATION General: healthy, alert, mild distress. Skin: skin color, texture, turgor normal, no suspicious rashes or lesions. Cardiac: Regular rate and rhythm. No murmurs, gallops or rubs noted. Pulmonary: Clear to auscultation bilaterally. No expiratory wheeze. No accessory muscles of respiration noted. Musculoskeletal: Right Shoulder: ROM:minimally limited Tenderness:clavicle, biceps tendon Atrophy: absent Strength: Strength of the shoulder slightly reduced due to pain. Hooker Impingement Test: positive Drop Arm Rotator Cuff Test: negative Empty Can Supraspinatus Test: positive Cross body Adduction Test:positive External Rotation/Infraspinatus Test: Negative Neer's Test: positive Lift Off Subscapularus Test: negative Creptitus: absent Bruising: absent; Sensori-Motor Function: normal Radial Pulse: Normal ASSESSMENT / PLAN DIAGNOSIS #1 Pain Clavicle #2 Pain Shoulder Right - MR Shoulder Right without IV Contrast; Future; Expected date: 06/27/2020 Other orders - HYDROcodone-acetaminophen (NORCO) 5-325 mg per tablet; Take 1-2 tablets by mouth every 6 (six) hours as needed for pain or moderate pain or score 4-6 of 10 for up to 3 days Indication: acute pain., Starting Thu06/27/2020, Until 06/30/2020, Normal - meloxicam (MOBIC) 15 mg tablet; Take 1 tablet (15 mg total) by mouth daily., Starting Thu06/27/2020, Normal - methocarbamoL (ROBAXIN) 750 mg tablet; Take 1 tablet (750 mg total) by mouth 4 (four) times a day as needed for muscle spasms., Starting Thu06/27/2020, Normal -discussed my findings with the patient. For further evaluation of the patient's right shoulder and clavicle pain will get an MRI of the right shoulder. There is some concern for a soft tissue injury such as a labral tear. Will treat the pain with [place] 1-2 tablets every 6 hours as needed as well as meloxicam 15 mg daily as needed. We discussed potential side effects of [place] including sedation. He was instructed not to operate heavy equipment or drive while taking this medication. He is aware that this is a short-term prescription. He was instructed to take the meloxicam with plenty of food and not to take with any other NSAIDs such as ibuprofen, Aleve, naproxen, Advil, etc.. I also provided him a prescription for Robaxin 750 mg 4 times a day as needed for muscle spasms. Potential side effects of the medication discussed including sedation. He will not take this while driving or operating heavyequipment. We did initially plan on him going back to work on 07/02 without restrictions. After further discussion we decided to get an MRI of the right shoulder and have him return to work on 07/02 with restrictions including not lifting anything above 90?? with his shoulder and not lifting anything over 20 lb. Will await the results of the MRI and provide further recommendations once the results are received. If he needs follow-up I would recommend that he follow-up with occupational medicine. Anthony Carpenter APRN, C.N.P., M.S.N. documented in this encounter Plan of Treatment Not on filedocumented as of this encounter Results MR Shoulder Right without [...] in this encounter Visit Diagnoses Diagnosis Pain Clavicle - Primary Pain Shoulder Right Pain Shoulder Right documented in this encounter Additional Health Concerns Assessment Noted Time PHQ-9 Depression Total Score: 16 12/29/2019 7:41 AM CD T documented as of this encounter Care Teams Railroad Worker Relationship Specialty Start Date End Date Anthony Carpenter APRN C.N.Gabriel., PCP - General Family Medicine M.S.N. [address] [phone] documented as of this encounter
--- OUTSIDE RECORDS SUMMARY | 2022-08-19 06:52 | XMS_ITS | Encounter Summary ---
:1975 Author Organization [facility] Address [address] [place] [address] Care Team Providers Name Role Phone Anthony Carpenter APRN, C.N.PPatricia, M.S.N. Primary Care Provider + Reason for Visit Reason Comments Med Refill Encounter Details Date Type Department Care Team Description 11/19/2020 Refill Department of Family Medicine, Anthony Carpenter APRN, Med Refill [facility], in [place], C. N.Harsha, M.S.N. [place] [address] [address] [place] [address] [place] [address] [facility] [phone] Social History Tobacco Use Types Packs/Day Years [...] or relatives? How often do you attend buddhism or Patient refused 2020 amish services? Do you belong to any clubs or No 07/17/2021 organizations such as buddhism groups, unions, fraternal or athletic groups, or [...] or the highest technical, or vocational p [employer] [place] degree you have received? Sex Assigned at Date Recorded Not on file documented as of this encounter Miscellaneous Notes Telephone Encounter - Marilyn Morley - 11/19/2020 8:23 AM CST Nurse review: Unable to forward request to provider; Stimulant medication requested Primary Provider: Anthony Carpenter C.N.P., M.S.N. OMS OFFICER Telephone Encounter - Brenda Potter - 11/19/2020 8:17 AM CST Name of Medication: Dextroamphetamine-amphetamine (Adderall) Provider: Anthony Carpenter C.N.P., M.S.N. Strength: 10 mg tablet Frequency: 1 tablet 2 times daily [facility] OMS OFFICER documented in this encounter Plan of Treatment Not on filedocumented as of this encounter Visit Diagnoses Not on filedocumented in this encounter Additional Health Concerns Assessment Noted Time PHQ-9 Depression Total Score: 16 12/29/2019 7:41 AM CD T documented as of this encounter Care Teams Manager Lab Relationship Specialty Start Date End Date Anthony Carpenter APRN, C.N.PPatricia, PCP - General Family Medicine M.S.N. [address] [place] [address] documented as of this encounter
--- OUTSIDE RECORDS SUMMARY | 2022-08-19 06:52 | XMS_ITS | Encounter Summary ---
:[address] [facility] Address [address] [place] [address] Care Team Providers Name Role Phone Anthony Carpenter APRN, C.N.P., M.S.N. Primary Care Provider + Reason for Visit Reason Comments Earache RIGHT X 1 MONTH bloody disch arge Appointment Request (Routine) - Closed Specialty Diagnoses / Procedures Referred By Contact Refer red To Contact Family Medicine Referral ID Status Reason Start Date Expiration Date Visits Requ ested Visits Authorized [id number] Closed 10/22/2020 10/22/2021 1 1 Encounter Details Date Type Department Care Team Description 10/22/2020 Office [place], Otitis Ex terna Acute [place], [place] Watson Right (Primary Dx) [address] [place] [phone] Social History Tobacco Use Types Packs/Day Years [...] you attend judaism or Patient refused 2020 muslim services? Do [...] Sign Reading Time Taken Comments Blood Pressure 140/82 10/22/2020 2:17 PM DEVIL TENDER Pulse 90 10/22/2020 2:17 PM DEVIL TENDER Temperature 37 ??C (98.6 ??F) 10/22/2020 2:17 PM DEVIL TENDER Respiratory Rate - - Oxygen Saturation - - Inhaled Oxygen Concentration - - Weight 66 kg (145 lb 8.1 oz) 10/22/2020 2:17 PM DEVIL TENDER Height - - Body Mass Index 24.24 08/03/2019 9:50 AM CDT documented in this encounter Progress Notes Nick Carl M.D. - 10/22/2020 2:30 PM CST SUBJECTIVE CHIEF COMPLAINT/REASON FOR VISIT Alon Jaimes is a 44 y.o. male that presents with right-sided earache for a month with a couple of episodes of some bloody discharge from the ear. Pain is worsening and not responding well to ibuprofen. CURRENT MEDICATIONS Current Outpatient Medications: ??? acetaminophen [...] day., Disp: 60 tablet, Rfl: 0 ??? meloxicam (MOBIC) 15 mg tablet, Take 1 tablet (15 mg total) by mouth daily., Disp: 21 tablet, Rfl: 0 ??? methocarbamoL (ROBAXIN) 750 mg tablet, Take 1 tablet (750 mg total) by mouth 4 (four) times a day as needed for muscle spasms., Disp: 50 tablet, Rfl: 0 ??? dextroamphetamine-amphetamine (ADDERALL) 10 [...] day., Disp: 60 tablet, Rfl: 0 ??? fjpdgdpq-boiplqooq-MX (CORTISPORIN) 3.5-10,000-1 mg/mL-unit/mL-% otic suspension, Administer 4 drops into the right ear 4 (four) times a day for 7 days., Disp: 10 mL, Rfl: 0 ALLERGIES/CONTRAINDICATIONS Allergies Allergen Reactions ??? Gadolinium-Containing Contrast Media Rash ??? Adhesive Tape-Silicones Other (see comments) ??? Ketorolac Other (see comments) and Itching Cerner listed no reactions ??? Latex Other (see comments) Cerner listed no reactions ??? Penicillins Other (see comments) and GI intolerance Cerner listed no reactions ??? Tramadol Rash OBJECTIVE Vitals: 10/22/20 1417 BP: 140/82 Pulse: 90 Temp: 37 ??C PHYSICAL EXAMINATION General Appearance: No acute distress. HEENT: Ears with left side fine. Right-sided with canal irritation and mild swelling seen in conjunction with tenderness with external portion of the ear being moved. TM is of normal color. Neck suppleand negative for masses or nodes of significance Chest: Breathing easily without accessory muscle use or cough. ASSESSMENT / PLAN Right otitis externa. Cortisporin otic is prescribed. Conservative measures are reviewed and writtenout. All questions are discussed and answered. Patient voices good understanding and agreement with our plan. Follow-up with primary care if not improving as expected or otherwise as needed. L TENDER documented in this encounter Plan of Treatment Not on filedocumented as of this encounter Visit Diagnoses Diagnosis Otitis Externa Acute Right - Primary documented in this encounter Additional Health Concerns Assessment Noted Time PHQ-9 Depression Total Score: 16 12/29/2019 7:41 AM CD T documented as of this encounter Care Teams Applied Psychology Teacher Relationship Specialty Start Date End Date Anthony Carpenter, ELA, C.N.P., PCP - General Family Medicine M.S.N. [address] [phone] documented as of this encounter
--- OUTSIDE RECORDS SUMMARY | 2022-08-19 06:52 | XMS_ITS | Encounter Summary ---
:1975 Author Organization [facility] Address [address] [place] [address] Care Team Providers Name Role Phone Anthony Carpenter APRN C.N.PPatricia, M.S.N. Primary Care Provider + Encounter Details Date Type Department Care Team Description 12/11/2020 Clinical Communication Department of [facility] Anthony Carpenter, Medicine, [place] ELA C.N.PPatricia, Clinic[facility] [address] [place] [phone] Social History Tobacco Use Types Packs/Day Years [...] or relatives? How often do you attend islam or Patient refused 2020 cheondoism services? Do you belong to any clubs or No 07/17/2021 organizations such as islam groups, unions, fraternal or athletic groups, or [...] to pay for the very basics like [employer] hat hard 07/17/2021 food, housing, medical care, [...] highest level of school Associate degree: occupa tional, 06/29/2019 you have completed or the highest technical, or vocational p priscillaram degree you have received? Sex Assigned at Date Recorded Not on file documented as of this encounter Miscellaneous Notes Telephone Encounter - Cindy Hernandez R.N. - 12/11/2020 2:14 PM THERMOSTATIC CONTROLS SUPERVISOR Called patient and left a message advising the Orthopedic team in [place] does not operate on olecranon bursitis per Shaneka Barrera's message. Informed patient he could still be seen and worked up. Advised patient to call with questions. MOSTATIC CONTROLS SUPERVISOR Telephone Encounter - Shaneka Barrera P.A.-C. - 12/11/2020 11:22 AM THERMOSTATIC CONTROLS SUPERVISOR We do not do surgery on olecranon bursitis, so please make sure patient is aware of this going into the appointment. MOSTATIC CONTROLS SUPERVISOR Telephone Encounter - Cindy Hernandez R.N. - 12/11/2020 10:39 AM THERMOSTATIC CONTROLS SUPERVISOR Called patient and discussed Dr. Iyer' follow up recommendations. Patient states the [facility] provider suggested surgery on his elbow sooner rather than later, so he is requesting to see an Orthopedic provider. Offered an appointment with Shaneka Barrera P.A.-C. on December 14 at 1:45 pm. Patient agrees to this date and time. MOSTATIC CONTROLS SUPERVISOR Telephone Encounter - Kanu Iyer M.D. - 12/11/2020 9:40 AM CST Elbow bursitis is non-operative. Should see PCP or could see a PA this week or next MOSTATIC CONTROLS SUPERVISOR Telephone Encounter - Cindy Hernandez R.N. - 12/11/2020 9:27 AM THERMOSTATIC CONTROLS SUPERVISOR S: SDC follow up B: Seen in the [facility] in [place] on 12/11/20 for right elbow pain. Diagnosed with right elbow bursitis. Given a prescription for steroid taper and instructed on conservative measures. Instructed tofollow up with Orthopedics. A: Needs appointment R: Message forwarded to MD to review and recommend plan of care. MOSTATIC CONTROLS SUPERVISOR Telephone Encounter - Lahta Kilgore - 12/11/2020 9:09 AM CST Reason for Communication: Patient was seen in the [facility] in [place] this am. Patient was advised to see a provider right away about possibly needing surgery for removing bone spurs in hiselbow. Please see information from today's visit and advise if Ortho is appropriate. Current Can Nursing/Provider leave a detailed message?: Yes Did the patient refuse triage through Nurse line? (for symptom based concerns): Action Needed: Please call patient back and advise about ortho consult. Name of Medication (if relevant): Thank you. MOSTATIC CONTROLS SUPERVISOR documented in this encounter Plan of Treatment Not on filedocumented as of this encounter Visit Diagnoses Not on filedocumented in this encounter Additional Health Concerns Assessment Noted Time PHQ-9 Depression Total Score: 16 12/29/2019 7:41 AM CD T documented as of this encounter Care Teams Cloth Pattern Maker Relationship Specialty Start Date End Date Anthony Carpenter, ELA, C.N.P., PCP - General Family Medicine M.S.N. [address] [place] [phone] documented as of this encounter
--- OUTSIDE RECORDS SUMMARY | 2022-08-19 06:52 | XMS_ITS | Encounter Summary ---
:1975 Author Organization [facility] Address [address] [place] [address] Care Team Providers Name Role Phone Anthony Carpenter APRN C.N.P., M.S.N. Primary Care Provider + Reason for Visit Reason Comments Arm Pain Encounter Details Date Type Department Care Team Description 12/13/2020 - Emergency [facility] Pain Arm (Primary Dx) 12/14/2020 [address] [place] [phone] Social History Tobacco Use Types Packs/Day [...] or relatives? How often do you attend orthodox or Patient refused 2020 rastafarian services? Do you belong to any clubs or No 07/17/2021 organizations such as orthodox groups, unions, fraternal or athletic groups, [...] Priority Date/Time Associated Comments Diagnosis DX ELBOW RIGHT 3+ RAD - Semiurgent 12/13/2020 8:51 Res ults for this VIEWS (Fast; most ED AM JEWELRY POLISHER procedure are in patients; some the results inpatients) section. documented in this encounter Results DX Elbow Right 3+ Views (12/13/2020 8:51 AM JEWELRY POLISHER) Anatomical Region Laterality Modality Upper Extremity, Elbow, Musculoskeletal RST LOS, Right Digital Radiography Musculoskeletal ARZ LOS, Muskuloskeletal FLA LOS Specimen (Source) Anatomical Collection Method Collection Time Re ceived Time Location / / Volume Laterality 12/13/2020 8:55 AM JEWELRY POLISHER Impressions 12/13/2020 8:56 AM JEWELRY POLISHER No elbow joint effusion. No evidence of fracture of the right elbow. Mild degenerative spurring. Narrative 12/13/2020 8:56 AM JEWELRY POLISHER EXAM: DX ELBOW RIGHT 3+ VIEWS Procedure Note Royce Peck M.D. - 12/13/2020For matting of this note might be different from the original. EXAM: DX ELBOW RIGHT 3+ VIEWS IMPRESSION: No elbow joint effusion. No evidence of fracture of the right elbow. Mild degenerative spurring. [facility] VERONICA documented in this encounter Visit Diagnoses Diagnosis Pain Arm - Primary documented in this encounter Additional Health Concerns Assessment Noted Time PHQ-9 Depression Total Score: 16 12/29/2019 7:41 AM CD T documented as of this encounter Care Teams Director Of Intercollegiate Athletics Relationship Specialty Start Date End Date Anthony Carpenter, ELA, C.N.P., PCP - General Family Medicine M.S.N. [address] [place] [phone] documented as of this encounter
--- OUTSIDE RECORDS SUMMARY | 2022-08-19 06:53 | XMS_ITS | Encounter Summary ---
:1975 Author Organization [facility] Address [address] [place] [address] Care Team Providers Name Role Phone Anthony Carpenter APRN, C.N.P., M.S.N. Primary Care Provider + Reason for Visit Reason Comments Post-op DOS 08/08/19 Post-op Outpatient (Routine) - Closed Specialty Diagnoses / Procedures Referred By Contact Refer red To Contact Orthopedic Surgery Diagnoses Tear Rotator Cuff Complete Non Trauma [facility] Kanu Iyer M.D. [facility] [address] [place] [address] Referral ID Status Reason Start Date Expiration Date Visits Requ ested Visits Authorized [id number] Closed 07/27/2019 07/26/2020 1 1 Encounter Details Date Type Department Care Team Description 09/21/2019 Office Visit Department of Kanu Iyer Tear Rotator Cuff Orthopedic Surgery in [place] Complete Non Trauma [place], [place] [address] [facility] [address] [place] [phone] Social History Tobacco Use Types Packs/Day Years [...] or relatives? How often do you attend latter-day or Patient refused 2020 nondenominational services? Do you belong to any clubs or No 07/17/2021 organizations such as latter-day groups, unions, fraMedHOK or athletic groups, or school groups? How [...] encounter Progress Notes Kanu Iyer M.D. - 09/21/2019 10:45 AM CST Limited Examination HISTORY OF PRESENT ILLNESS Patient is a 43-year-old male who had left shoulder arthroscopy, rotator cuff repair done on 08/08/2019. He had a previous labral repair and previous cuff repair, then he developed more tearing. I believe this is his 3rd surgery now, but he is doing very well postoperatively, not having much pain. He has been careful with things, using a sling. He has been careful not to reach and lift. He has had a couple visits of therapy and that is going well. OBJECTIVE PHYSICAL EXAMINATION Extremities : Left shoulder portal sites are well healed. No swelling, redness, or warmth. He has forward flexion passively to at least 120-30 degrees. Fairly good internal and external rotation. Moveshis wrist, elbow and hand well. Neurovascularly intact in the left upper extremity. PLAN: He will continue with therapy, work on range of motion, exercises, no strengthening until it has been 3 months postoperative, but he is recovering well. He will wear a sling with activities. He can have it off around the house. Really no reaching and lifting and avoid things that cause pain, buthe is doing well at 6 weeks. I discussed with him it takes about 3 months to fully heal. His initial injury was at work and I believe all of this stems from his injury at work. ISTICS INTERN documented in this encounter Plan of Treatment Not on filedocumented as of this encounter Visit Diagnoses Diagnosis Tear Rotator Cuff Complete Non Trauma Le ft documented in this encounter Care Teams Data Warehouse Analyst Relationship Specialty Start Date End Date Anthony Carpenter, ELA, C.N.P., PCP - General Family Medicine M.S.N. [address] [place] [phone] documented as of this encounter
--- OUTSIDE RECORDS SUMMARY | 2022-08-19 06:53 | XMS_ITS | Encounter Summary ---
:1975 Author Organization [facility] Address [address] [place] [address] Care Team Providers Name Role Phone Anthony Carpenter APRN, C.N.P., M.S.N. Primary Care Provider + Reason for Referral MRI/CAT/PET Scan (Routine) - Closed Specialty Diagnoses / Procedures Referred By Contact Refer red To Contact Radiology Diagnoses Pain Low Back Unspecified Tan Gaston M.D. [facility] Region Procedures MR Lumbar Spine without IV Contrast [address] [place] [phone] Referral ID Status Reason Start Date Expiration Date Visits Requ ested Visits Authorized Closed 04/16/2020 04/16/2021 1 1 Encounter Details Date Type Department Care Team Description 04/16/2020 Hospital Encounter Department of Radiology Vignesh Gaston ph, Pain Low Back in [facility] Gilbert gan M.D. [address] [place] [address] [place], [place] [phone] Social History Tobacco Use Types Packs/Day Years [...] you attend baptist or Patient refused 2020 taoism services? Do [...] Dispensed Refills Start Date End Date acetaminophen (for_TYLENOL) Take 1,000 mg by 0 500 mg tablet mouth. albuterol inhaler Inhale 2 puffs 3 Inhaler 3 12/29/2019 every 4 (four) hours as needed for wheezing or shortness of breath. dextroamphetamine-amphetami Take 1 tablet (10 60 tablet 0 1 12/08/2018 08/09/2020 ne (Adderall) 10 mg tablet mg total) by mouth 2 (two) times a day. dextroamphetamine-amphetami Take 1 tablet (10 60 tablet 0 0 12/29/2019 12/19/2020 ne (ADDERALL) 10 mg tablet mg total) by mouth 2 (two) times a day. dextroamphetamine-amphetami Take 1 tablet (10 60 tablet 0 0 01/28/2020 08/09/2020 ne (ADDERALL) 10 mg tablet mg total) by mouth 2 (two) times a day. dextroamphetamine-amphetami Take 1 tablet (10 60 tablet 0 0 02/27/2020 08/09/2020 ne (ADDERALL) 10 mg tablet mg total) by mouth 2 (two) times a day. methocarbamoL (ROBAXIN) 750 Take 1 tablet (750 50 tablet 0 04/06/2020 06/27/2020 mg tablet mg total) by mouth 4 (four) times a day as needed for muscle spasms. methylPREDNISolone (MEDROL Take as directed 21 tablet 0 06/27/2020 DOSEPAK) 4 mg tablet on package. methylPREDNISolone (MEDROL Take by mouth as 0 03/202006/27/2020 DOSEPAK) 4 mg tablet instructed per packaging. naproxen (NAPROSYN) 500 mg Take 500 mg by 0 04/1606/27/2020 tablet mouth. documented as of this encounter Plan of Treatment Scheduled Orders Name Type Priority Associated Order Schedule Diagnoses MR Lumbar Spine Imaging RAD - Routine (most Pain Low Back Once for 1 without IV inpatients and all Occurrenc es starting Contrast outpatients) 04/16/2020 unti l 04/16/2020 documented as of this encounter Visit Diagnoses Diagnosis Pain Low Back Unspecified documented in this encounter Additional Health Concerns Assessment Noted Time PHQ-9 Depression Total Score: 16 12/29/2019 7:41 AM CD T documented as of this encounter Care Teams Womens Volleyball Coach Relationship Specialty Start Date End Date Anthony Carpenter, ELA, C.N.P., PCP - General Family Medicine M.S.N. [address] [phone] documented as of this encounter
--- OUTSIDE RECORDS SUMMARY | 2022-08-19 06:53 | XMS_ITS | Encounter Summary ---
:1975 Author Organization [facility] Address [address] [place] [address] Care Team Providers Name Role Phone Anthony Carpenter APRN, C.N.P., M.S.N. Primary Care Provider + Reason for Visit Reason Comments Med Management Appointment Request (Routine) - Closed Specialty Diagnoses / Procedures Referred By Contact Refer red To Contact Family Medicine Referral ID Status Reason Start Date Expiration Date Visits Requ ested Visits Authorized [id number] Closed 12/05/2019 12/04/2020 1 1 Encounter Details Date Type Department Care Team Description 12/29/2019 Office Visit Department of Family Anthony Carpenter Attent ion Deficit With Hyperactivity Disorder (Primary Dx); Medicine, Primiitvo Zuñiga APRN, Shortness Of Breath; Clinic, in [place], M.S .N. [facility] [address] [place] [phone] Social History Tobacco Use Types Packs/Day [...] you attend jainism or Patient refused 2020 faith services? Do [...] completed or the highest technical, or vocational sapna glynn degree you have received? Sex Assigned at Date Recorded Not on file documented as of this encounter Last Filed Vital Signs Vital Sign Reading Time Taken Comments Blood Pressure 127/70 12/29/2019 7:38 AM CDT Pulse 80 12/29/2019 7:38 AM CDT Temperature - - Respiratory Rate - - Oxygen Saturation - - Inhaled Oxygen Concentration - - Weight 63.8 kg (140 lb 10.5 oz) 12/29/2019 7:38 AM CDT Height - - Body Mass Index 23.43 08/03/2019 9:50 AM CDT documented in this encounter Progress Notes Anthony Carpenter, ELA, C.N.P., M.S.N. - 12/29/2019 8:00 AM CDT SUBJECTIVE CHIEF COMPLAINT / REASON FOR VISIT Alon Jaimes is a 44 y.o. male who presents for evaluation of Med Management. HISTORY OF PRESENT ILLNESS Alon Jaimes is a 44 y.o. male who is here today for ADHD follow up. This is an establishedproblem. Patient is currently taking Adderall 10 mg twice daily. He continues to find good benefit with the medication. It helps him concentrate and stay on task at work. Medication is well tolerated with no side effects reported. No insomnia, irritability, upset stomach, headache, elevated blood pressure or unintentional weight loss. Patient also complains of intermittent wheezing and shortness of breath. 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 He also has a cough along with this. Patient states that when he is done with his work week his symptoms typically will improve over the weekend and then reoccur once he has to go to work. He is concerned that it may beasthma. His mother has asthma. REVIEW OF SYSTEMS General: No unintentional weight [...] Disp: 3 Inhaler, Rfl: 3 ??? dextroamphetamine-amphetamine (Adderall) 10 mg tablet, Take 1 tablet (10 mg total) by mouth 2 (two) times a day., Disp: 60 tablet, Rfl: 0 ??? dextroamphetamine-amphetamine (ADDERALL) 10 mg tablet, Take 1 tablet (10 mg total) by mouth 2 (two) times a day., Disp: 60 tablet, Rfl: 0 ??? [START ON 01/28/2020] dextroamphetamine-amphetamine (ADDERALL) 10 mg tablet, Take 1 tablet (10 mgtotal) by mouth 2 (two) times a day., Disp: 60 tablet, Rfl: 0 ??? [START ON 02/27/2020] dextroamphetamine-amphetamine (ADDERALL) 10 mg tablet, Take 1 tablet (10 mgtotal) by mouth 2 (two) times a day., Disp: 60 tablet, Rfl: 0 ??? ibuprofen (ADVIL,MOTRIN) 800 mg tablet, , Disp: , Rfl: ALLERGIES Allergies Allergen Reactions ??? Gadolinium-Containing Contrast Media Rash ??? Adhesive Tape-Silicones Other (see comments) ??? Ketorolac Other (see comments) and Itching Cerner listed no reactions ??? Latex Other (see comments) Cerner listed no reactions ??? Penicillins Other (see comments) and GI intolerance Cerner listed no reactions ??? Tramadol Rash OBJECTIVE VITAL SIGNS BP 127/70 (BP Location: Right arm, Patient Position: Sitting, Cuff Size: Regular) Pulse 80 Wt 63.8 kg BMI 23.43 kg/m?? PHYSICAL EXAMINATION General: Patient is alert [...] process is appropriate. ASSESSMENT / PLAN DIAGNOSIS 1. Attention Deficit With Hyperactivity Disorder Adderall 10 mg twice daily was renewed and the patient was given another 3 months worth of electronic prescriptions. Tablets should be kept in a safe location. CSA stimulant agreement was completed today. Patient will return for medication re-check in 3 months, sooner if there are concerns. If after 3months there are still guidelines stating no nonessential visits I will provide him with additional refills and he is aware this. Recommended he active though he will see me after 3 months however and will evaluate then whether not he should be seen given Covid 19 recommendations. 2. Shortness Of Breath 3. Wheezing -patient is given albuterol inhaler 2 puffs every 4 hours as needed for wheezing and shortness of breath. I recommended that he use it prior to his shift to see if it helps improve his shortness of breath and wheezing and then as needed every 4 hours. -will also get spirometry completed for more diagnostic evaluation. I did let him know that he may not be able to do this for a little while given Covid 19 concerns and recommendations for nonessentialvisits not to be done. Will provide further recommendations based on test results. Anthony Carpenter APRN, C.N.P., M.S.N. documented in this encounter Plan of Treatment Not on filedocumented as of this encounter Visit Diagnoses Diagnosis Attention Deficit With Hyperactivity Dis order - Primary Shortness Of Breath Wheezing documented in this encounter Additional Health Concerns Assessment Noted Time PHQ-9 Depression Total Score: 16 12/29/2019 7:41 AM CD T documented as of this encounter Care Teams Multimedia Engineer Relationship Specialty Start Date End Date Anthony Carpenter APRN, C.NPatrick., PCP - General Family Medicine M.S.N. [address] [phone] documented as of this encounter
--- OUTSIDE RECORDS SUMMARY | 2022-08-19 06:53 | XMS_ITS | Encounter Summary ---
:1975 Author Organization [facility] Address [address] [place] [address] Care Team Providers Name Role Phone Anthony Carpenter APRN, C.N.P., M.S.N. Primary Care Provider + Encounter Details Date Type Department Care Team Description 09/26/2019 Orders Only [facility] Anthony Carpenter, S creening Examination ELA, C.N.P., Diabetes Shun castro M.S.N. [address] [place] [address] Social History Tobacco Use Types [...] you attend cheondoism or Patient refused 2020 taoist services? Do [...] Examination Diabetes Mellitus documented in this encounter Care Teams Assistant Store Manager Relationship Specialty Start Date End Date Anthony Carpenter, ELA, C.N.P., PCP - General Family Medicine M.S.N. [address] [phone] documented as of this encounter
--- OUTSIDE RECORDS SUMMARY | 2022-08-19 06:53 | XMS_ITS | Encounter Summary ---
:1975 Author Organization [facility] Address [address] [place] [address] Care Team Providers Name Role Phone Anthony Carpenter APRN C.N.PPatricia, .S.N. Primary Care Provider + Reason for Visit Reason Onset Date Comments Med Refill 12/05/2019 Med Refill 12/09/2019 Encounter Details Date Type Department Care Team Description 12/05/2019 Refill Department of [facility] Anthony Carpenter, Med Refill; Med Refill Medicine, [place] ELA C.N.PPatricia, [facility] [address] [place] [phone] (Wo rk) Social History Tobacco Use Types [...] you attend yazidism or Patient refused 2020 catholic services? Do [...] or the highest technical, or vocational p [employer]ram degree you have received? Sex Assigned at Date Recorded Not on file documented as of this encounter Miscellaneous Notes Telephone Encounter - Vannesa Flynn L.P.N. - 12/12/2019 9:58 AM CST Appt is made for 12/16/19 ER PIPE MAKING Telephone Encounter - Anthony Carpenter APRN, C.N.P., M.S.N. - 12/09/2019 11:53 AM CST Patient's last fill date was 10/20/2019. If he was taking it as prescribed his last dose would have been 11/20/2019. Given he has not taken it in 20 days he would not be having withdrawal symptoms. He needs to be seen for further refills. ER PIPE MAKING Telephone Encounter - Marilyn Yi - 12/09/2019 10:20 AM CST Pt has an appt on 12/15, he is having withdrawal symptoms. 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 ER PIPE MAKING Telephone Encounter - Marilyn Morley - 12/05/2019 11:58 AM CST Nurse review: Unable to forward request to provider; Stimulant medication requested ER PIPE MAKING Telephone Encounter - Marilyn Yi - 12/05/2019 11:03 AM CST Name of Medication: Adderall Primary Provider: Anthony Carpenter APRN, C.NPatriciaPPatricia, M.S.N. Strength: 10 mg Frequency: 1 tab 2 times daily Pharmacy (include location): [facility] ER PIPE MAKING documented in this encounter Plan of Treatment Not on filedocumented as of this encounter Visit Diagnoses Not on filedocumented in this encounter Care Teams Diesel Roller Operator Relationship Specialty Start Date End Date Anthony Carpenter APRN, C.N.PPatricia, PCP - General Family Medicine M.S.N. [address] [phone] documented as of this encounter
--- OUTSIDE RECORDS SUMMARY | 2022-08-19 06:53 | XMS_ITS | Encounter Summary ---
:1975 Author Organization [facility] Address [address] [place] [address] Care Team Providers Name Role Phone Anthony Carpenter APRN, C.N.P., M.S.N. Primary Care Provider + Reason for Visit Reason Comments Back Pain Encounter Details Date Type Department Care Team Description 04/16/2020 - Emergency [facility] Pain Back (Primary Dx) 04/17/2020 [address] [place] [phone] Social History Tobacco Use Types Packs/Day [...] you attend episcopalian or Patient refused 2020 jew services? Do [...] documented as of this encounter Care Teams Supervisor Fabrication And Assembly Relationship Specialty Start Date End Date Anthony Carpenter APRN, C.N.P., PCP - General Family Medicine M.S.N. [address] [phone] documented as of this encounter
--- OUTSIDE RECORDS SUMMARY | 2022-08-19 06:53 | XMS_ITS | Encounter Summary ---
:1975 Author Organization [facility] Address [address] [place] [address] Care Team Providers Name Role Phone Anthony Carpenter APRN C.N.Harsha, M.S.N. Primary Care Provider + Reason for Visit Reason Comments med check appt Encounter Details Date Type Department Care Team Description 12/28/2019 Clinical Communication Department of [facility] Anthony Carpenter med check appt Medicine, Primitivo Zuñiga APRN, Clinic, in [place], M.S .N. [place] [address] [facility] [address] [place] [phone] Social History Tobacco Use Types Packs/Day Years [...] you attend pentecostal or Patient refused 2020 scientologist services? Do [...] to pay for the very basics like Zlio hat hard 07/17/2021 food, housing, medical care, [...] or the highest technical, or vocational p Fat [employer]ram degree you have received? Sex Assigned at Date Recorded Not on file documented as of this encounter Miscellaneous Notes Telephone Encounter - Vannesa Flynn L.P.N. - 12/28/2019 3:41 PM CDT Left a detailed message telling patient to keep his appointment tomorrow so he could get his Adderall refilled. Telephone Encounter - Anthony Carpenter APRN, C.N.P., M.S.N. - 12/28/2019 3:34 PM CDT He has no showed 1 appointment and canceled 2 appointments prior to this upcoming appointment. Because of this I will not refill his Adderall. Anthony Telephone Encounter - Westley Phipps - 12/28/2019 8:59 AM CDT Reason for Communication: patient calling to see if PCP would be willing to write a refill for adderall 10mg, without being seen at this time. HE is concerned of the medical issues with Covid to come in. Patient is out of medication at this time. PHARM: [facility] in [place] Current Can Nursing/Provider leave a detailed message: yes Did the patient refuse triage through Nurse line? (for symptom based concerns): na Action Needed: please call patient either way. He will reschedule to sooner date if need be. Name of Medication (if relevant): adderall documented in this encounter Plan of Treatment Not on filedocumented as of this encounter Visit Diagnoses Not on filedocumented in this encounter Additional Health Concerns Infection Onset Date Last Indicated Resolved Time COVID19 Pending 03/12/2020 03/12/2020 03/12/2020 7:45 PM CDT documented as of this encounter Care Teams Manager Action Relationship Specialty Start Date End Date Anthony Carpenter, ELA, C.N.P., PCP - General Family Medicine M.S.N. [address] [phone] documented as of this encounter
--- OUTSIDE RECORDS SUMMARY | 2022-08-19 06:53 | XMS_ITS | Encounter Summary ---
:1975 Author Organization [facility] Address [address] [place] [address] Care Team Providers Name Role Phone Jayden Anthony Zuñiga APRN C.N.P., M.S.N. Primary Care Provider + Encounter Details Date Type Department Care Team Description 02/07/2020 Clinical Communication Department of [facility] Are[facility], Ophthalmology in [place], [place] [address] [place] [phone] Social History Tobacco Use Types Packs/Day Years [...] you attend mandaen or Patient refused 2020 congregation services? Do you belong to any clubs [...] this encounter Miscellaneous Notes Telephone Encounter - Ghislaine Altamirano - 02/07/2020 9:41 AM CDT Patient has been added. Telephone Encounter - Lyn Scott, C.O.A. - 02/07/2020 9:37 AM CDT Spoke with Dr. Arechiga. Would like patient to come in [place] Telephone Encounter - Anabel Suazo - 02/07/2020 9:10 AM CDT Reason for Communication: Patient is calling in regards to concerns with his R eye. Patient was at work last night 02/05 and chemicals splashed into his R eye. Patient went into the ER and was advised to be seen in [facility]. Patient was given eye drops, but his R eye has a burning feeling. Needing triage prior to scheduling. Current Can Nursing/Provider leave a detailed message: Action Needed: [phone] Name of Medication (if relevant): documented in this encounter Plan of Treatment Not on filedocumented as of this encounter Visit Diagnoses Not on filedocumented in this encounter Additional Health Concerns Assessment Noted Time PHQ-9 Depression Total Score: 16 12/29/2019 7:41 AM CD T documented as of this encounter Care Teams Door To Door Salesman Relationship Specialty Start Date End Date Anthony Carpenter, ELA, C.N.P., PCP - General Family Medicine M.S.N. [address] [place] [phone] documented as of this encounter
--- OUTSIDE RECORDS SUMMARY | 2022-08-19 06:53 | XMS_ITS | Encounter Summary ---
:1975 Author Organization [facility] Address [address] [place] [address] Care Team Providers Name Role Phone Anthony Carpenter APRN, C.N.P., M.S.N. Primary Care Provider + Encounter Details Date Type Department Care Team Description 10/07/2019 Orders Only Department of Family Anthony Carpenter APR N, Medicine, [facility], C.N.P ., M.S.N. in [facility] [address] [place] [phone] (Wo rk) Social History Tobacco Use Types [...] you attend sabianist or Patient refused 2020 anabaptist services? Do you belong to any clubs [...] to pay for the very basics like Kuaidi Dache hat hard 07/17/2021 food, housing, medical care, [...] on filedocumented in this encounter Care Teams Hydrographer Relationship Specialty Start Date End Date Anthony Carpenter, ELA, C.N.P., PCP - General Family Medicine M.S.N. [address] [phone] documented as of this encounter
--- OUTSIDE RECORDS SUMMARY | 2022-08-19 06:53 | XMS_ITS | Encounter Summary ---
:1975 Author Organization [facility] Address [address] [place] [address] Care Team Providers Name Role Phone Anthony Carpenter APRN, C.N.P., M.S.N. Primary Care Provider + Reason for Visit Reason Comments Triage Encounter Details Date Type Department Care Team Description 04/03/2020 Nurse Triage Department of [facility] Corky Justin R.N. Triage Medicine, [facility], [place], [place] [address] [place] [address] Social History Tobacco Use Types Packs/Day Years [...] you attend scientology or Patient refused 2020 latter day services? Do you belong to any clubs [...] as of this encounter Care Teams Associate School Psychologist Relationship Specialty Start Date End Date Anthony Carpenter, ELA, C.N.P., PCP - General Family Medicine M.S.N. [address] [phone] documented as of this encounter
--- OUTSIDE RECORDS SUMMARY | 2022-08-19 06:53 | XMS_ITS | Encounter Summary ---
:1975 Author Organization [facility] Address [address] [place] [address] Care Team Providers Name Role Phone Anthony Carpenter APRN C.N.P., M.S.N. Primary Care Provider + Encounter Details Date Type Department Care Team Description 02/09/2020 Clinical Communication Department of Anival Gallegos Ophthalmology lexie [place], [place] [address] [address] [place] [phone] Social History Tobacco Use Types Packs/Day Years [...] you attend pentecostalism or Patient refused 2020 faith services? Do [...] this encounter Miscellaneous Notes Telephone Encounter - Anival Gallegos M.D. - 02/09/2020 1:54 PM CDT Ask her to return copy of original return to work slip for me to review before dictating letter. GH Telephone Encounter - Lyn Scott, C.O.A. - 02/09/2020 11:40 AM CDT Would you be able to provide this letter? Telephone Encounter - Hadley Lopez - 02/09/2020 11:31 AM CDT Reason for Communication: Meseret Eílas from [employer] called in. She needs a copy of patient's return to work slip faxed to her at [phone]. Current Can Nursing/Provider leave a detailed message: Did the patient refuse triage through Nurse line? (for symptom based concerns): Action Needed: Please fax return to work slip. Name of Medication (if relevant): documented in this encounter Plan of Treatment Not on filedocumented as of this encounter Visit Diagnoses Not on filedocumented in this encounter Additional Health Concerns Assessment Noted Time PHQ-9 Depression Total Score: 16 12/29/2019 7:41 AM CD T documented as of this encounter Care Teams Rough Carpenter Relationship Specialty Start Date End Date Anthony Carpenter, ELA, C.N.P., PCP - General Family Medicine M.S.N. [address] [phone] documented as of this encounter
--- OUTSIDE RECORDS SUMMARY | 2022-08-19 06:53 | XMS_ITS | Encounter Summary ---
:1975 Author Organization [facility] Address [address] [place] [address] Care Team Providers Name Role Phone Jayden Anthony Zuñiga APRN C.N.P., M.S.N. Primary Care Provider + Encounter Details Date Type Department Care Team Description 09/12/2019 Orders Only Department of Orthopedic Medina Armijo, Surgery in [facility] [address] [place] [address] [place] [address] [facility] [phone] Social History Tobacco Use Types Packs/Day Years [...] you attend confucianism or Patient refused 2020 sikh services? Do [...] to pay for the very basics like [employer] hat hard 07/17/2021 food, housing, medical care, [...] documented as of this encounter Progress Notes Therese Guillaume C.M.A. - 09/12/2019 4:22 PM CST Left message for patient to call clinic back ETL DEVELOPER Therese Guillaume C.M.A. - 09/12/2019 4:22 PM CST Informed patient script is ready for picker and sorter load and unload at info desk. Patient verbalized understanding. ETL DEVELOPER documented in this encounter Plan of Treatment Not on filedocumented as of this encounter Visit Diagnoses Not on filedocumented in this encounter Care Teams Rouge Sifter And Miller Relationship Specialty Start Date End Date Anthony Carpenter, ELA, C.N.P., PCP - General Family Medicine M.S.N. [address] [place] [phone] documented as of this encounter
--- OUTSIDE RECORDS SUMMARY | 2022-08-19 06:53 | XMS_ITS | Encounter Summary ---
:1975 Author Organization [facility] Address [address] [place] [address] Care Team Providers Name Role Phone Anthony Carpenter APRN, C.NCristine, M.S.N. Primary Care Provider + Reason for Visit Reason Comments Other Back pain wants something st neri than what he has had Appointment Request (Routine) - Closed Specialty Diagnoses / Procedures Referred By Contact Refer red To Contact Family Medicine Referral ID Status Reason Start Date Expiration Date Visits Requ ested Visits Authorized [id number] Closed 04/05/2020 04/05/2021 1 1 Encounter Details Date Type Department Care Team Description 04/06/2020 Office Visit Department of Family Anthony Carpenter Pain B ack Lumbar (Primary Dx); Medicine, Primitivo Zuñiga APRN, Radiculop [facility], in William Langford, M.S .N. [place] [address] [place] [phone] Social History Tobacco Use Types Packs/Day Years [...] you attend taoist or Patient refused 2020 holiness services? Do [...] Sign Reading Time Taken Comments Blood Pressure 117/79 04/06/2020 10:36 AM CDT Pulse 88 04/06/2020 10:36 AM CDT Temperature - - Respiratory Rate - - Oxygen Saturation - - Inhaled Oxygen Concentration - - Weight 64.8 kg (142 lb 13.7 oz) 04/06/2020 10:36 AM CDT Height - - Body Mass Index 23.8 08/03/2019 9:50 AM CDT documented in this encounter Progress Notes Anthony Carpenter, ELA, C.N.P., M.S.N. - 04/06/2020 11:00 AM CDT SUBJECTIVE CHIEF COMPLAINT / REASON FOR VISIT Alon Jaimes is a 44 y.o. male who presents for evaluation of Other (Back pain wants something stroger than what he has had). HISTORY OF PRESENT ILLNESS Alon Jaimes is a 44 y.o. male who presents today for evaluation of lumbar back pain. Patient reports that on Thursday he first noticed that he had some back pain when he woke up in the morning.The pain gradually got worse. He went to work on Thursday which he thinks worsened the pain. He also has pain that shoots down the posterior aspect of his right leg. He went to the ER twice on 04/03/2020. He was given an injection of ketorolac and a lidocaine patch. The pain did not improve so he presented to the emergency department later that day again. A CT scan of the lumbar spine was done that didnot show any suspicious or acute etiologies. He was then prescribed cyclobenzaprine, gabapentin, andgiven a prescription for ketorolac. Patient reports that since being seen in the emergency department his back pain has not improved any. He has not found much benefit from any other treatments that has been prescribed. He has tried soaking in a hot bath which helps a little bit. He has not tried regular heat or ice. He has been taking Tylenol and ibuprofen which has helped minimally. He has an appointment with a chiropractor on Thursday. He does not complain of saddle paresthesias, weakness on one side of the body, bowel incontinence, bladder incontinence. REVIEW OF SYSTEMS See HPI, remainder of [...] technical, or vocational program Occupational History Employer: [email or web address] Social Needs ??? Financial resource strain: Not [...] a week Gets together: Patient refused Attends holiness service: Patient refused Active member of club [...] of breath. 3 Inhaler 3 ??? [DISCONTINUED] ibuprofen (ADVIL,MOTRIN) 800 mg tablet ??? dextroamphetamine-amphetamine (Adderall) 10 mg tablet Take [...] (two) times a day. 60 tablet 0 No current facility-administered medications on file prior to visit. ALLERGIES Allergies Allergen Reactions ??? Gadolinium-Containing Contrast Media Rash ??? Adhesive Tape-Silicones Other (see comments) ??? Ketorolac Other (see comments) and Itching Cerner listed no reactions ??? Latex Other (see comments) Cerner listed no reactions ??? Penicillins Other (see comments) and GI intolerance Cerner listed no reactions ??? Tramadol Rash VITAL SIGNS BP 117/79 (BP Location: Right arm, Patient Position: Sitting, Cuff Size: Regular) Pulse 88 Wt 64.8 kg BMI 23.80 kg/m?? OBJECTIVE PHYSICAL EXAMINATION General: Patient is alert and oriented and in no acute distress. Capable of full communication without difficulty. Patient is polite and cooperative. Appropriately dressed and normal hygiene. Pulmonary: CTA, no wheezing/rales or rhonchi Skin: normal color, temperature and moisture, no rashes or lesions are noted Neurological: CN II-XII grossly intact Cardiac: RRR, no murmurs, skipped beats, rubs or gallops Back: Skin appears normal over the entire back. There is no discoloration or deformity. He has reduced range of motion due to pain. He is tender to palpation throughout his lumbar back area with significant muscle spasms on the right and left with it worse being on the right. He has pain with deep palpation over the upper buttocks that causes shooting pain down his right leg. Straight leg test on theright leg is positive and negative on the left leg. ASSESSMENT / PLAN DIAGNOSIS #1 Pain Back Lumbar #2 Radiculopathy Lumbar Other orders - methylPREDNISolone (MEDROL DOSEPAK) 4 mg tablet; Take as directed on package., Normal - methocarbamoL (ROBAXIN) 750 mg tablet; Take 1 tablet (750 mg total) by mouth 4 (four) times a day as needed for muscle spasms., Starting Thu04/06/2020, Normal -discussed my findings with the patient. He has significant muscle spasms in his back that is likelycontributing to most of his pain in addition to sciatic pain down his right leg. He did not benefit from cyclobenzaprine but given his presentation I would think that a muscle relaxer would be beneficial. He has not picked up his gabapentin according to him or ketorolac. We did discuss using diclofenac which we decided against and he will poultry picker his ketorolac. -prescription for Robaxin 750 mg 4 times a day as needed for muscle spasms provided. He is aware that this can cause sedation and not to operate heavy equipment or drive while on this. -Medrol Dosepak prescribed. -recommended gentle kknbw-af-belsvw exercises at least 3 times a day. -recommend heat 3 times a day for 20 minutes per episode. -he is going to try career technical supervisor on Thursday. -suggested that he try massage therapy. -may try physical therapy if more conservative measures do not help. -follow-up as needed for worsening symptoms or lack of improvement. Anthony Carpenter APRN, C.N.P., M.S.N. documented in this encounter Plan of Treatment Not on filedocumented as of this encounter Visit Diagnoses Diagnosis Pain Back Lumbar - Primary Radiculopathy Lumbar documented in this encounter Additional Health Concerns Assessment Noted Time PHQ-9 Depression Total Score: 16 12/29/2019 7:41 AM CD T documented as of this encounter Care Teams Chiropractic Assistant Relationship Specialty Start Date End Date Anthony Carpenter APRN, C.N.P., PCP - General Family Medicine M.S.N. [address] [phone] documented as of this encounter
--- OUTSIDE RECORDS SUMMARY | 2022-08-19 06:53 | XMS_ITS | Encounter Summary ---
:1975 Author Organization [facility] Address [address] [place] [address] Care Team Providers Name Role Phone Anthony Carpenter APRN, C.N.PPatricia, M.S.N. Primary Care Provider + Reason for Visit Reason Comments Med Refill Encounter Details Date Type Department Care Team Description 04/03/2020 Refill Department of Family Medicine, Anthony Carpenter APRN, Med Refill [facility], in Primit[place], C. N.Harsha, M.S.N. [place] [address] [facility] [address] [place] [address] [place] [address] [facility] [phone] Social History Tobacco Use Types Packs/Day Years [...] you attend hindu or Patient refused 2020 gnosticism services? Do [...] to pay for the very basics like [employer] hat hard 07/17/2021 food, housing, medical care, [...] Notes Telephone Encounter - Hadley Lopez - 04/03/2020 10:34 AM CDT Name of Medication: Dextroamphetamine-amphetamine Primary Provider: Anthony Carpenter APRN, C.N.PPatricia, M.S.N. Strength: 10 mg tablet Frequency: Take one tablet by mouth 2x a day Pharmacy (include location): [facility] - [place], [place] documented in this encounter Plan of Treatment Not on filedocumented as of this encounter Visit Diagnoses Not on filedocumented in this encounter Additional Health Concerns Assessment Noted Time PHQ-9 Depression Total Score: 16 12/29/2019 7:41 AM CD T documented as of this encounter Care Teams Photographer Portrait Relationship Specialty Start Date End Date Anthony Carpenter APRN, C.N.P., PCP - General Family Medicine M.S.N. [address] [place] [phone] documented as of this encounter
--- OUTSIDE RECORDS SUMMARY | 2022-08-19 06:53 | XMS_ITS | Encounter Summary ---
:1975 Author Organization [facility] Address [address] [place] [address] Care Team Providers Name Role Phone Anthony Carpenter APRN, C.N.P., M.S.N. Primary Care Provider + Encounter Details Date Type Department Care Team Description 10/21/2019 Orders Only Department of Family Anthony Carpenter APR N, Medicine, [facility], C.N.P ., M.S.N. in [facility] [address] [place] [phone] (Wo rk) Social History Tobacco Use Types [...] you attend christian or Patient refused 2020 methodist services? Do [...] to pay for the very basics like [employer] hat hard 07/17/2021 food, housing, medical care, [...] on filedocumented in this encounter Care Teams Manager Night Relationship Specialty Start Date End Date Anthony Carpenter, ELA, C.N.P., PCP - General Family Medicine M.S.N. [address] [phone] documented as of this encounter
--- OUTSIDE RECORDS SUMMARY | 2022-08-19 06:53 | XMS_ITS | Encounter Summary ---
:1975 Author Organization [facility] Address [address] [place] [address] Care Team Providers Name Role Phone Anthony Carpenter APRN C.N.P., M.S.N. Primary Care Provider + Reason for Referral Outpatient (Routine) - Closed Specialty Diagnoses / Procedures Referred By Contact Refer red To Contact Diagnoses Preplacement Exam Anyi Corado P.A.[facility] Procedures OCC Drug screening [address] [place] [phone] Referral ID Status Reason Start Date Expiration Date Visits Requ ested Visits Authorized [id number] Closed 06/27/2020 06/27/2021 1 1 Reason for Visit Reason Comments Labs Only Marj- [facility]BO Appointment Request (Routine) - Closed Specialty Diagnoses / Procedures Referred By Contact Refer red To Contact Occupational Medicine Referral ID Status Reason Start Date Expiration Date Visits Requ ested Visits Authorized [id number] Closed 06/26/2020 06/26/2021 1 1 Encounter Details Date Type Department Care Team Description 06/27/2020 Clinical Support Department of [facility], Preplaceme nt Exam (Primary Dx); Occupational Kalia Griffin er Medical Exam Medicine in [place] [address] [place] [phone] Social History Tobacco Use Types Packs/Day Years [...] or relatives? How often do you attend scientologist or Patient refused 2020 religion services? Do you belong to any clubs or No 07/17/2021 organizations such as scientologist groups, unions, fraternal or athletic groups, or [...] Type Priority Associated Diagnoses Order S chedule [facility] Drug screening Procedures Routine Preplacement Exam Orde red: 06/27/2020 documented as of this encounter Visit Diagnoses Diagnosis Preplacement Exam - Primary Is Manager Medical Exam documented in this encounter Additional Health Concerns Assessment Noted Time PHQ-9 Depression Total Score: 16 12/29/2019 7:41 AM CD T documented as of this encounter Care Teams Nursing Home Director Relationship Specialty Start Date End Date Anthony Carpenter, ELA, C.N.P., PCP - General Family Medicine M.S.N. [address] [place] [address], [place] [phone] documented as of this encounter
--- OUTSIDE RECORDS SUMMARY | 2022-08-19 06:53 | XMS_ITS | Encounter Summary ---
:1975 Author Organization [facility] Address [address] [place] [address] Care Team Providers Name Role Phone Anthony Carpenter APRN, C.N.P., M.S.N. Primary Care Provider + Reason for Visit Reason Onset Date Comments Med Refill Med Refill 09/28/2019 Med Refill 09/29/2019 Med Refill 10/03/2019 Encounter Details Date Type Department Care Team Description 09/28/2019 Refill Department of [facility] Anthony Carpenter, Med Refill; Med Refill; Medicine, [place] ELA, C.N.P., Med Refi ll; Med Refill Clinic, [facility] [address] [place] [phone] Social History Tobacco Use Types Packs/Day Years [...] you attend pentecostal or Patient refused 2020 oriental orthodox services? Do you belong to any clubs [...] this encounter Miscellaneous Notes Telephone Encounter - Evette Soni - 10/03/2019 3:35 PM CST Pt called, please advise HEALTH CLINICAL SUPERVISOR Telephone Encounter - Anthony Carpenter APRN, Caterina.N.P., M.S.N. - 09/30/2019 8:03 AM CST Ortho is prescribing this. If they feel he needs it they can prescribe HEALTH CLINICAL SUPERVISOR Telephone Encounter - Peyman Marilyn R - 09/28/2019 8:53 AM CST Nurse review: Unable to pend medication; CS Primary Provider: Anthony Carpenter APRN, C.N.P., M.S.N. Name of medication: Oxycodone/apap Strength: 5/325 mg Frequency: take one tablet by mouth every 6 hours if needed for pain Quantity: 30 Refills: Last Refill: 09/13/19 Pharmacy: [facility] HEALTH CLINICAL SUPERVISOR documented in this encounter Plan of Treatment Not on filedocumented as of this encounter Visit Diagnoses Not on filedocumented in this encounter Care Teams Staff Sonographer Relationship Specialty Start Date End Date Anthony Carpenter APRN, C.N.P., PCP - General Family Medicine M.S.N. [address] [phone] documented as of this encounter
--- OUTSIDE RECORDS SUMMARY | 2022-08-19 06:53 | XMS_ITS | Encounter Summary ---
:1975 Author Organization [facility] Address [address] [place] [address] Care Team Providers Name Role Phone Anthony Carpenter APRN C.N.PPatricia, M.S.N. Primary Care Provider + Encounter Details Date Type Department Care Team Description 12/09/2019 Clinical Communication Department of [facility] Anthony Carpenter, Medicine, [place] ELA, C.N.PPatricia, Clinic, in [place] [address] [address] [place] [phone] Social History Tobacco Use Types Packs/Day Years [...] you attend scientology or Patient refused 2020 buddhist services? Do [...] to pay for the very basics like [employer] hat hard 07/17/2021 food, housing, medical care, [...] on filedocumented in this encounter Care Teams Coagulator Relationship Specialty Start Date End Date Anthony Carpenter, ELA, C.N.P., PCP - General Family Medicine M.S.N. [address] [phone] documented as of this encounter
--- OUTSIDE RECORDS SUMMARY | 2022-08-19 06:53 | XMS_ITS | Encounter Summary ---
:1975 Author Organization [facility] Address [address] [place] [address] Care Team Providers Name Role Phone Anthony Carpenter APRN C.N.PPatricia, M.S.N. Primary Care Provider + Encounter Details Date Type Department Care Team Description 03/13/2020 Clinical Communication Department of [facility] Anthony Carpenter, Medicine, [place] ELA, C.N.PPatricia, Clinic, in [place], [facility] [address] [address] [place] [phone] Social History Tobacco Use Types Packs/Day Years [...] you attend scientology or Patient refused 2020 anglican services? Do you belong to any clubs [...] to pay for the very basics like [employer] hat hard 07/17/2021 food, housing, medical care, [...] documented as of this encounter Care Teams Well Reactivator Operator Relationship Specialty Start Date End Date Anthony Carpenter, ELA, C.N.P., PCP - General Family Medicine M.S.N. [address] [phone] documented as of this encounter
--- OUTSIDE RECORDS SUMMARY | 2022-08-19 06:53 | XMS_ITS | Encounter Summary ---
:1975 Author Organization [facility] Address [address] [place] [address] Care Team Providers Name Role Phone Anthony Carpenter APRN, C.N.P., M.S.N. Primary Care Provider + Encounter Details Date Type Department Care Team Description 09/30/2019 Orders Only Department of Family Anthony Carpenter APR N, Medicine, [facility], C.N.P ., M.S.N. in [facility] [address] [place] [phone] (Wo rk) Social History Tobacco Use Types [...] you attend islam or Patient refused 2020 latter-day services? Do [...] to pay for the very basics like [facility] hat hard 07/17/2021 food, housing, medical care, [...] on filedocumented in this encounter Care Teams Research And Development Technician Relationship Specialty Start Date End Date Anthony Carpenter, ELA, C.N.P., PCP - General Family Medicine M.S.N. [address] [phone] documented as of this encounter
--- OUTSIDE RECORDS SUMMARY | 2022-08-19 06:53 | XMS_ITS | Encounter Summary ---
:1975 Author Organization [facility] Address [address] [place] [address] Care Team Providers Name Role Phone Anthony Carpenter APRN, C.N.P., M.S.N. Primary Care Provider + Reason for Visit Reason Comments Back Pain Encounter Details Date Type Department Care Team Description 04/03/2020 - Emergency [facility] Pain Back Lumbar (Primary Dx ); 04/04/2020 [address] [facility] [place] [phone] Social History Tobacco Use Types Packs/Day [...] you attend jew or Patient refused 2020 restorationism services? Do you belong to any clubs [...] tablet (two) times a day. ibuprofen (ADVIL,MOTRIN) 0 12/30/2018 04/06/2020 800 mg tablet documented as of this encounter Plan of Treatment Not on filedocumented as of this encounter Procedures Procedure Name Priority Date/Time Associated Comments Diagnosis CT LUMBAR SPINE RAD - Semiurgent 04/03/2020 10:05 Pain Low Back Res ults for this WITHOUT IV (Fast; most ED PM CDT procedure are in CONTRAST patients; some the results inpatients) section. documented in this encounter Results CT Lumbar Spine without IV Contrast (04/03/2020 10:05 PM CDT) Anatomical Region Laterality Modality Lumbar Spine, Neuroradiology RST LOS, Neuroradiology N/A Computed Tomography ARZ LOS, Neuroradiology FLA LOS Specimen (Source) Anatomical Collection Method Collection Time Re ceived Time Location / / Volume Laterality 04/04/2020 8:02 AM CDT Impressions 04/04/2020 8:03 AM CDT 1. No appreciable acute osseous injury o f the lumbar spine. Narrative 04/04/2020 8:03 AM CDT EXAM: CT LUMBAR SPINE WITHOUT IV CONTRAST COMPARISON: None FINDINGS: Preliminary report generated b y virtual radiology. No appreciable acute osseous injury of t he lumbar spine. Small this medium-sized disc osteophyte complexes L3, L4 disc space levels respectively. Disc desiccation L4 disc space level and to lesser extent L5 disc space level. If clinically indicated contemporary MRI of the lumbar spine may be helpful for further evaluation. Procedure Note Noah Mcdonald M.D. - 04/04/2020Forma tting of this note might be different from the original. EXAM: CT LUMBAR SPINE WITHOUT IV CONTRAS T COMPARISON: None FINDINGS: Preliminary report generated b y virtual radiology. No appreciable acute osseous injury of t he lumbar spine. Small this medium-sized disc osteophyte complexes L3, L4 disc space levels respectively. Disc desiccation L4 disc space level and to lesser extent L5 disc space level. If clinically indicated contemporary MRI of the lumbar spine may be helpful for further evaluation. IMPRESSION: 1. No appreciable acute osseous injury o f the lumbar spine. Melani CHAMBERS CT PROCEDURES documented in this encounter Visit Diagnoses Diagnosis Pain Back Lumbar - Primary Pain Low Back Unspecified documented in this encounter Additional Health Concerns Assessment Noted Time PHQ-9 Depression Total Score: 16 12/29/2019 7:41 AM CD T documented as of this encounter Care Teams Tool And Fixture Repairer Relationship Specialty Start Date End Date Anthony Carpenter, ELA, C.N.P., PCP - General Family Medicine M.S.N. [address] [place] [phone] documented as of this encounter
--- OUTSIDE RECORDS SUMMARY | 2022-08-19 06:53 | XMS_ITS | Encounter Summary ---
:1975 Author Organization [facility] Address [address] [place] [address] Care Team Providers Name Role Phone Anthony Carpenter APRN C.N.PPatricia, .S.N. Primary Care Provider + Reason for Visit Reason Onset Date Comments Med Refill 10/04/2019 Med Refill 10/17/2019 Encounter Details Date Type Department Care Team Description 10/04/2019 Refill Department of [facility] Anthony Carpenter, Med Refill; Med Refill Medicine, [place] ELA C.N.PPatricia, Clinic, in [place] [facility] [address] [place] [phone] (Wo rk) Social History Tobacco Use Types [...] you attend taoist or Patient refused 2020 sikhism services? Do [...] Notes Telephone Encounter - Anthony Carpenter APRN, C.N.Harsha, M.S.N. - 10/21/2019 2:55 PM CST A prescription was provided to the patient on 10/07/2018. He should have enough for him to get through until our appointment on 10/31/2019 STANCE COORDINATOR Addendum Note - Uriel Gleason R.M.A. - 10/21/2019 2:44 PM ASSISTANCE COORDINATOR Addended by: URIEL GLEASON on: 10/21/2019 02:44 PM Modules accepted: Orders STANCE COORDINATOR Telephone Encounter - Uriel Gleason R.M.A. - 10/21/2019 2:44 PM ASSISTANCE COORDINATOR Would you be willing to refill enough to get patient to his 10/31/2019 appointment? Please advise. Thank you STANCE COORDINATOR Telephone Encounter - Annemarie Otero - 10/17/2019 11:59 AM CST Patient called and is wondering If Anthony Carpenter would be able to give him a refill on his ADDERALL to get him by before his appt on Thursday10/21/19. Please advise and call back at [phone] STANCE COORDINATOR Telephone Encounter - Eula Edwards - 10/07/2019 9:58 AM CST Called patient and LM on for patient to call back and schedule appointment. STANCE COORDINATOR Telephone Encounter - Anthony Carpenter APRN, C.NCristine, M.S.N. - 10/07/2019 7:42 AM CST Last refill. Patient needs to schedule an appointment for further refills. STANCE COORDINATOR Telephone Encounter - Desiree Nicole - 10/04/2019 12:32 PM CST Nurse review: Unable to pend medication; CS med Primary Provider: Anthony Carpenter APRN, C.NCristine, M.S.N. Name of medication: Adderall Strength: 10 mg tab Frequency: Take 1 tab PO once daily Quantity: 30 Refills: 0 Last Refill: 07/29/2019 Pharmacy: [address] STANCE COORDINATOR documented in this encounter Plan of Treatment Not on filedocumented as of this encounter Visit Diagnoses Not on filedocumented in this encounter Care Teams Telephone Interviewer Relationship Specialty Start Date End Date Anthony Carpenter APRN C.N.PPatricia, PCP - General Family Medicine M.S.N. [address] [phone] documented as of this encounter
--- OUTSIDE RECORDS SUMMARY | 2022-08-19 06:53 | XMS_ITS | Encounter Summary ---
:1975 Author Organization [facility] Address [address] [place] [address] Care Team Providers Name Role Phone Anthony Carpenter APRN, C.N.P., M.S.N. Primary Care Provider + Reason for Visit Reason Comments follow up ER Appointment Request (Routine) - Closed Specialty Diagnoses / Procedures Referred By Contact Refer red To Contact Ophthalmology Diagnoses Work comp [facility] Region [facility] Procedures Work comp Referral ID Status Reason Start Date Expiration Date Visits Requ ested Visits Authorized [id number] Closed 02/07/2020 02/06/2021 1 1 Encounter Details Date Type Department Care Team Description 02/07/2020 Office Visit Department of Anival Gallegos, Keratitis (Primary Ophthalmology in M.D. Dx) [place], [place] [address] [place] [phone] Social History Tobacco Use Types Packs/Day [...] or relatives? How often do you attend religion or Patient refused 2020 episcopalian services? Do you belong to any clubs or No 07/17/2021 organizations such as religion groups, unions, fraternal or athletic groups, or [...] documented as of this encounter Progress Notes Anival Gallegos M.D. - 02/07/2020 11:15 AM CDT Alon Jaimes was seen today for follow up ER #1 Chemical Keratitis Mild Maxitrol TID right 3 days RTC 4 months Compete documented in this encounter Plan of Treatment Not on filedocumented as of this encounter Visit Diagnoses Diagnosis Keratitis - Primary documented in this encounter Additional Health Concerns Assessment Noted Time PHQ-9 Depression Total Score: 16 12/29/2019 7:41 AM CD T documented as of this encounter Care Teams Medical Staff Physician Relationship Specialty Start Date End Date Anthony Carpenter, ELA, C.N.P., PCP - General Family Medicine M.S.N. [address] [place] [phone] documented as of this encounter
--- OUTSIDE RECORDS SUMMARY | 2022-08-19 06:53 | XMS_ITS | Encounter Summary ---
:1975 Author Organization [facility] Address [address] [place] [address] Care Team Providers Name Role Phone Anthony Carpenter APRN C.N.PPatricia, M.S.N. Primary Care Provider + Encounter Details Date Type Department Care Team Description 04/03/2020 Clinical Communication Department of [facility] Anthony Carpenter, Medicine, [place] ELA, C.N.PPatricia, Clinic, in [place], [facility] [address] [address] [place] [phone] Social History Tobacco Use Types Packs/Day Years [...] you attend latter-day or Patient refused 2020 protestant services? Do you belong to any clubs or No 07/17/2021 organizations such as latter-day groups, unions, fraternal or athletic groups, or [...] to pay for the very basics like [employer] hat hard 07/17/2021 food, housing, medical care, [...] this encounter Miscellaneous Notes Telephone Encounter - Gilda Parra L.P.N. - 04/05/2020 11:14 AM CDT Please schedule Telephone Encounter - Anthony Carpenter APRN, C.N.P., M.S.N. - 04/05/2020 8:26 AM CDT Patient would need to be seen at the clinic for a new prescription. Telephone Encounter - Hadley Lopez - 04/03/2020 10:28 AM CDT Reason for Communication: Patient called in. He was seen in the ER this morning for severe lower back pain. He was given Valium but would like to know if Anthony Carpenter would prescribe something for the pain. Patient did speak with RN MINA and they advised patient to go back to the ER. Current Can Nursing/Provider leave a detailed message: Did the patient refuse triage through Nurse line? (for symptom based concerns): No Action Needed: Please call patient back and advise. Name of Medication (if relevant): documented in this encounter Plan of Treatment Not on filedocumented as of this encounter Visit Diagnoses Not on filedocumented in this encounter Additional Health Concerns Assessment Noted Time PHQ-9 Depression Total Score: 16 12/29/2019 7:41 AM CD T documented as of this encounter Care Teams Personalized Living Assistant Relationship Specialty Start Date End Date Anthony Carpenter, ELA, C.N.P., PCP - General Family Medicine M.S.N. [address] [phone] documented as of this encounter
--- OUTSIDE RECORDS SUMMARY | 2022-08-19 06:53 | XMS_ITS | Encounter Summary ---
:1975 Author Organization [facility] Address [address] [place] [address] Care Team Providers Name Role Phone Jayden Anthony Zuñiga APRN C.N.P., M.S.N. Primary Care Provider + Reason for Visit Reason Onset Date Comments rx request 10/03/2019 Encounter Details Date Type Department Care Team Description 10/03/2019 Clinical Communication Department of Kanu Iyer, rx request Orthopedic Surgery in [place], [place] [address] [phone] Social History Tobacco Use Types Packs/Day Years [...] attend latter day or Patient refused 2020 moravian services? Do [...] to pay for the very basics like [employer] hat hard 07/17/2021 food, housing, medical care, [...] this encounter Miscellaneous Notes Telephone Encounter - Therese Guillaume C.M.A. - 10/04/2019 10:07 AM TAPPET ADJUSTER Informed patient of message below ET ADJUSTER Telephone Encounter - Therese Guillaume C.M.A. - 10/04/2019 8:47 AM TAPPET ADJUSTER Left message for patient to call clinic back ET ADJUSTER Telephone Encounter - Concepcion Armijo P.A.-C. - 10/03/2019 4:48 PM TAPPET ADJUSTER He can use Tylenol or Ibuprofen as needed for pain. ET ADJUSTER Telephone Encounter - Therese Guillaume C.M.A. - 10/03/2019 4:40 PM TAPPET ADJUSTER Images from the original note were not included. Please advise Patient request medication refill Oxycodone-acetaminophen 5-325 mg per tab 1 tab po q6hr prn 30 tablets 0 refills Last filled on 09/12/19 by Alon Samson Name Title: [id number] Sex: Male Age: 43 y.o. : 1975 PCP: Anthony Carpenter APRN, C.N.PPatricia, M.S.N. Care Coord: No Language: Malay Need Eye Dropper Assembler: None Last Weight: 64.9 kg Phone: M: [phone] Allergies Gadolinium-containing Contrast Media Adhesive Tape-silicones Ketorolac Latex Penicillins Tramadol Pending order?: Yes Health Maintenance: Due FYI: None My Pt List Reminders: None Primary Cvg: [employer] Patient Online Services: Active Pharmacy: [facility] [address] [place] [address] [[id number]] [address] [[id number]] Next Appt (hover to see more appts): With Addiction 10/04/2019 at 1:00 PM Enc Dept: [facility] Patient Has Upcoming Procedures: None Refused Prescriptions oxyCODONE-acetaminophen (PERCOCET) 5-325 mg per tablet Sig: Take 1 tablet by mouth every 6 (six) hours as needed for pain Indication: Prolonged Acute Pain/Traumatic Injury. Disp: 30 tablet ? Refills: 0 Start: 09/30/2019 Earliest Fill Date: 09/30/2019 Class: Normal Refused by: Anthony Carpenter APRN, C.N.P., M.S.N. Refusal reason: Refill not appropriate (Ortho is prescribing this. If they feel he needs it they can prescribe) Fill requested from: [facility] [address] [place] [address] Med Refill, Med Refill, Med Refill, Med Refill Megan Hogan, L.P.Rima routed conversation to [facility] Nurse 17 minutes ago (4:19 PM) Evette Soni routed conversation to [facility] 1 Nurse 1 hour ago (3:35 PM) Evette Soni 1 hour ago (3:35 PM) Pt called, please advise Documentation Anthony Carpenter APRN, C.N.P., M.S.N. routed conversation to [facility] 1 Nurse 3 days ago Anthony Carpenter APRN, C.N.P., M.S.N. 3 days ago Ortho is prescribing this. If they feel he needs it they can prescribe Documentation Florinda Arndt L.P.N. Bakewell, Lee J, APRN C.N.PPatricia, M.S.N. 4 days ago Anthony, can you please advise if you want to refill this for patient thank you Routing comment Marilyn Morley routed conversation to [facility] 1 Nurse 5 days ago Marilyn Morley 5 days ago Nurse review: Unable to pend medication; Primary Provider: Anthony Carpenter APRN, C.N.Harsha, M.S.N. ?? Name of medication: Oxycodone/apap Strength: 5/325 mg Frequency: take one tablet by mouth every 6 hours if needed for pain Quantity: 30 Refills: Last Refill: 09/13/19 ?? Pharmacy: [facility] Documentation [facility] - [place], [place] - [address] [place] [phone] Marilyn Morley 5 days ago ET ADJUSTER documented in this encounter Plan of Treatment Not on filedocumented as of this encounter Visit Diagnoses Not on filedocumented in this encounter Care Teams Material Dispatcher Relationship Specialty Start Date End Date Anthony Carpenter APRN, C.N.P., PCP - General Family Medicine M.S.N. [address] [phone] documented as of this encounter
--- OUTSIDE RECORDS SUMMARY | 2022-08-19 06:53 | XMS_ITS | Encounter Summary ---
:1975 Author Organization [facility] Address [address] [place] [address] Care Team Providers Name Role Phone Anthony Carpenter APRN C.N.PPatricia, M.S.N. Primary Care Provider + Encounter Details Date Type Department Care Team Description 10/20/2019 Clinical Communication Department of [facility] Anthony Carpenter, Medicine, [place] ELA, C.N.PPatricia, Clinic, in [place], [facility] [address] [address] [place] [phone] Social History Tobacco Use Types Packs/Day Years [...] you attend samaritan or Patient refused 2020 holiness services? Do [...] to pay for the very basics like [employer] hat hard 07/17/2021 food, housing, medical care, [...] Miscellaneous Notes Telephone Encounter - Hallie Hdz LPatriciaP.N. - 10/20/2019 2:52 PM BUSINESS ANALYTICS ANALYST Spoke with [facility], they have an active script of file for adderall 10mg from 10/07/19. [facility]. Left detailed message for patient that refill was available at the pharmacy. NESS ANALYTICS ANALYST Telephone Encounter - Sylvie Woods - 10/20/2019 10:46 AM CST Reason for Communication: Patient calling to cancel his medication review scheduled for today at 11:30am with Anthony Carpenter, stating he has a conflicting job interview that he can't miss. Per patient request, marine underwriter has rescheduled him to 10-31-2019 at 3:30pm with Anthony. Patient wondering if Anthony would please refill enough of this medication to get him till this appt stating he is completely out at this time and has been for two weeks. Patient stating, honestly, I'm having withdrawals and I can't sleepcause I am so wound up. I can't function. Patient stating he will be the one to come pick this Rx up at the info desk if Anthony is able to please refill it Current Can Nursing/Provider leave a detailed message: Yes Did the patient refuse triage through Nurse line? (for symptom based concerns): No. NL does not apply Action Needed: Please contact patient regarding this Name of Medication (if relevant): Adderall 10mg tablet NESS ANALYTICS ANALYST documented in this encounter Plan of Treatment Not on filedocumented as of this encounter Visit Diagnoses Not on filedocumented in this encounter Care Teams Crimping Machine Operator Relationship Specialty Start Date End Date Anthony Carpenter, ELA, C.N.P., PCP - General Family Medicine M.S.N. [address] [phone] documented as of this encounter
--- OUTSIDE RECORDS SUMMARY | 2022-08-19 06:53 | XMS_ITS | Encounter Summary ---
:1975 Author Organization [facility] Address [address] [place] [address] Care Team Providers Name Role Phone Anthony Carpenter APRN C.N.PPatricia, M.S.N. Primary Care Provider + Reason for Visit Reason Comments COVID Inquiry Encounter Details Date Type Department Care Team Description 04/05/2020 Clinical Communication Department of [facility] Anthony Carpenter Inquiry Medicine, Primit[place] Zuñiga APRN, Clinic, in [place], M.S .N. [place] [address] [place] [phone] Social History Tobacco Use Types Packs/Day Years [...] you attend adventism or Patient refused 2020 yazdanism services? Do you belong to any clubs [...] to pay for the very basics like [employer] hat hard 07/17/2021 food, housing, medical care, [...] this encounter Miscellaneous Notes Telephone Encounter - Brisa Flores - 04/05/2020 11:40 AM CDT ([facility] and [facility] locations only: If the patient is not having symptoms and is requesting COVID-19 Nasal Swab testing only, use the process listed in the COVID-19 Patient Requesting COVID PCR Test OTG COVID-19 [place] Patient Requesting COVID PCR Test). 1. Do you have a pending COVID test because you had symptoms or exposure to someone with COVID or you have tested positive for COVID in the last 30 days? no 2. In the past 14 days, do you, anyone in the household, or anyone you have had prolonged exposure have any of the following? a. Fever greater than or equal to 37.8 C (100.0 F)? no b. New symptoms (Specifically: headache, cough, shortness of breath, respiratory distress, sore throat, diarrhea, nausea, vomiting, chills and repeated shaking with chills, myalgia's (muscle aches), loss of smell, or change or loss of taste sensation)? no c. Had close contact with a patient with known or possible COVID-19 in the last 14 days? no Route reply to: Scheduling Contact Number: {Dept Phone Number documented in this encounter Plan of Treatment Not on filedocumented as of this encounter Visit Diagnoses Not on filedocumented in this encounter Additional Health Concerns Assessment Noted Time PHQ-9 Depression Total Score: 16 12/29/2019 7:41 AM CD T documented as of this encounter Care Teams Manager Route Relationship Specialty Start Date End Date Anthony Carpenter, ELA, C.N.P., PCP - General Family Medicine M.S.N. [address] [phone] documented as of this encounter
--- OUTSIDE RECORDS SUMMARY | 2022-08-19 06:53 | XMS_ITS | Encounter Summary ---
:1975 Author Organization [facility] Address [address] [place] [address] Care Team Providers Name Role Phone Anthony Carpenter APRN, C.N.P., M.S.N. Primary Care Provider + Reason for Visit Reason Comments Back Pain Encounter Details Date Type Department Care Team Description 01/24/2020 - Emergency [facility] Pain Back (Primary Dx); 01/25/2020 [address] [facility] [place] [phone] Social History Tobacco Use Types Packs/Day [...] or relatives? How often do you attend buddhist or Patient refused 2020 oriental orthodox services? Do you belong to any clubs or No 07/17/2021 organizations such as buddhist groups, unions, fraternal or athletic groups, or [...] Diagnosis CT ABDOMEN PELVIS RAD - Semiurgent 01/24/2020 10:50 Pain Flank Re sults for this WITHOUT IV (Fast; most ED AM CDT procedure are in CONTRAST patients; some the results inpatients) section. documented in this encounter Results CT Abdomen Pelvis without IV Contrast (01/24/2020 10:50 AM CDT) Anatomical Region Laterality Modality Abdomen, Pelvis, Abdominal RST LOS, Abdominal ARZ LOS, N/A Computed Tomography Abdominal FLA LOS Specimen (Source) Anatomical Collection Method Collection Time Re ceived Time Location / / Volume Laterality 01/24/2020 10:54 AM CDT Impressions 01/24/2020 11:01 AM CDT No renal collecting system calculus. Narrative 01/24/2020 11:01 AM CDT EXAM: CT ABDOMEN PELVIS WITHOUT IV CONTRAST COMPARISON: 03/06/2016 CT FINDINGS: No IV contrast was given. LUNG BASES: No consolidation or pleural effusion. LIVER: No steatosis. GALL BLADDER: No radiopaque stones. PANCREAS: Unremarkable. SPLEEN: No splenomegaly. ADRENAL GLANDS: No suspicious nodularity . KIDNEYS AND URETERS: No hydroureteroneph rosis. No renal collecting system calculi. ??Pelvic phleboliths. INTRAPERITONEAL SPACE: No pneumoperitone um or significant free fluid in the abdomen or pelvis. STOMACH AND SMALL BOWEL: No dilated loop s of small bowel or evidence for bowel obstruction. COLON: Moderate colonic stool load. APPENDIX: No evidence for acute appendic itis. MAJOR VASCULATURE: No abdominal aortic a neurysm. LYMPH NODES: No lymphadenopathy in the a bdominal or pelvis by size criteria. PELVIS: ANTERIOR ABDOMINAL WALL: Unremarkable. BONES/OTHER SOFT TISSUES: No suspicious bone lesions. ??Partial ankylosis of the sacroiliac joints. Procedure Note Souleymane Peck M.D. - 01/24/2020Formatt ing of this note might be different from the original. EXAM: CT ABDOMEN PELVIS WITHOUT IV CONTR AST COMPARISON: 03/06/2016 CT FINDINGS: No IV contrast was given. LUNG BASES: No consolidation or pleural effusion. LIVER: No steatosis. GALL BLADDER: No radiopaque stones. PANCREAS: Unremarkable. SPLEEN: No splenomegaly. ADRENAL GLANDS: No suspicious nodularity . KIDNEYS AND URETERS: No hydroureteroneph rosis. No renal collecting system calculi. Pelvic phleboliths. INTRAPERITONEAL SPACE: No pneumoperitone um or significant free fluid in the abdomen or pelvis. STOMACH AND SMALL BOWEL: No dilated loop s of small bowel or evidence for bowel obstruction. COLON: Moderate colonic stool load. APPENDIX: No evidence for acute appendic itis. MAJOR VASCULATURE: No abdominal aortic a neurysm. LYMPH NODES: No lymphadenopathy in the a bdominal or pelvis by size criteria. PELVIS: ANTERIOR ABDOMINAL WALL: Unremarkable. BONES/OTHER SOFT TISSUES: No suspicious bone lesions. Partial ankylosis of the sacroiliac joints. IMPRESSION: No renal collecting system calculus. Tan CHAMBERS CT PROCEDURES documented in this encounter Visit Diagnoses Diagnosis Pain Back - Primary Pain Flank documented in this encounter Additional Health Concerns Assessment Noted Time PHQ-9 Depression Total Score: 16 12/29/2019 7:41 AM CD T documented as of this encounter Care Teams Census Clerk Relationship Specialty Start Date End Date Anthony Carpenter, ELA, C.N.P., PCP - General Family Medicine M.S.N. [address] [phone] documented as of this encounter
--- OUTSIDE RECORDS SUMMARY | 2022-08-19 06:53 | XMS_ITS | Encounter Summary ---
:1975 Author Organization [facility] Address [address] [place] [address] Care Team Providers Name Role Phone Anthony Carpenter APRN, C.N.P., M.S.N. Primary Care Provider + Reason for Visit Reason Onset Date Comments Outpatient COVID-19 Testing 03/12/2020 Encounter Details Date Type Department Care Team Description 03/12/2020 External Outreach Department of Kiel Burch Infect ion Upper Internal Medicine in J, D.O. Respiratory (Primary [place], [place] [address] Dx) [address] [place] [phone] Social History Tobacco Use Types Packs/Day Years [...] you attend baptism or Patient refused 2020 advent services? Do you belong to any clubs [...] to pay for the very basics like [employer] hard 07/17/2021 food, housing, medical care, and [...] highest level of school Associate degree: occupa tijolene, 06/29/2019 you have completed or the highest technical, or vocational p renard degree you have received? Sex Assigned at Date Recorded Not on file documented as of this encounter Progress Notes Ian Mcpherson R.N. - 03/12/2020 10:04 AM CDT Encounter created for the drive-through COVID-19 testing. documented in this encounter Miscellaneous Notes Result Encounter Note - Maris Richey - 03/13/2020 7:10 AM CDT Result Letter sent to patient with negative COVID-19 result. documented in this encounter Plan of Treatment Not on filedocumented as of this encounter Procedures Procedure Name Priority Date/Time Associated Diagnosis Comme nts SARS CORONAVIRUS-2, Routine 03/12/2020 10:06 AM Infection Uppe r Results for this PCR CDT Respiratory procedure are i n the results section. documented in this encounter Results SARS Coronavirus-2, PCR Symptomatic (03/12/2020 10:06 AM CDT) [facility] Method Time Signature SARS Swab, 03/12/2020 DTL Coronavirus-2 Nasopharynx 7:45 PM CDT Source SARS Undetected Undetected 03/12/2020 DTL Coronavirus-2 7:45 PM CDT , PCR Comment: SARS-CoV-2 RNA absent. This result does not rule out COVID-19 in the patient, as the sensitivity of the test depends o n the timing of the specimen collection and quality of the specimen. Result should be correlated with patient's history and clinical presentat ion. ----ADDITIONAL INFORMATION---- This test was developed and its performa nce characteristics determined by [facility] in a manner co nsistent with CLIA requirements. Independent review by the U.S. Food and Drug Administration is pending. Visit the CDC website: https://www.cdc.gov/coronavirus/ ?? for the most recent guidelines on [place] virus testing. Fact Sheet for Healthcare Providers: (https://www.Sense of Skin/it-mmfil es/ Provider_Fact_Sheet_for_[facility]_COVI D-19.pdf) Fact Sheet for Patients: (https://www.Sense of Skin/it-mmfil es/ Patient_Fact_Sheet_for_COVID-19.pdf) Specimen Anatomical Collection Method Collection Time Receive d Time (Source) Location / / Volume Laterality Varies 03/12/2020 10:06 03/12/2020 (Nasopharynx) AM CDT 12:25 PM CDT Kiel Burch D.O. LAB MICROBIOLOGY - GENERAL O ANGIE Performing Organization Address City/State/ZIP Code Phon e Number [facility] [address] [place], [place] [address] [facility] [place] [address] [facility] [address] documented in this encounter Visit Diagnoses Diagnosis Infection Upper Respiratory - Primary documented in this encounter Additional Health Concerns Infection Onset Date Last Indicated Resolved Time COVID19 Pending 03/12/2020 03/12/2020 03/12/2020 7:45 PM CDT Assessment Noted Time PHQ-9 Depression Total Score: 16 12/29/2019 7:41 AM CD T documented as of this encounter Care Teams Manager Software Relationship Specialty Start Date End Date Anthony Carpenter, ELA, C.N.P., PCP - General Family Medicine M.S.N. [address] [place] [phone] documented as of this encounter
--- OUTSIDE RECORDS SUMMARY | 2022-08-19 06:53 | XMS_ITS | Encounter Summary ---
:1975 Author Organization [facility] Address [address] [place] [address] Care Team Providers Name Role Phone Anthony Carpenter APRN C.N.PPatricia, M.S.N. Primary Care Provider + Encounter Details Date Type Department Care Team Description 10/03/2019 Clinical Communication Department of [facility] Anthony Carpenter, Medicine, [place] ELA, C.N.PPatricia, [facility] [place] [address] [address] [place] [phone] Social History Tobacco Use Types Packs/Day Years [...] attend jehovah's witness or Patient refused 2020 mormonism services? Do [...] to pay for the very basics like [employer] hat hard 07/17/2021 food, housing, medical care, [...] on filedocumented in this encounter Care Teams Ambulatory Analyst Relationship Specialty Start Date End Date Anthony Carpenter, ELA, C.N.P., PCP - General Family Medicine M.S.N. [address] [phone] documented as of this encounter
--- OUTSIDE RECORDS SUMMARY | 2022-08-19 06:53 | XMS_ITS | Encounter Summary ---
:1975 Author Organization [facility] Address [address] [place] [address] Care Team Providers Name Role Phone Anthony Carpenter APRN, C.N.P., M.S.N. Primary Care Provider + Encounter Details Date Type Department Care Team Description 12/06/2019 Orders Only Department of Family Anthony Carpenter APR N, Medicine, [facility], C.N.P ., M.S.N. in [facility] [address] [place] [phone] (Wo rk) Social History Tobacco Use Types [...] you attend confucianist or Patient refused 2020 pentecostalism services? Do [...] to pay for the very basics like [employer] hat hard 07/17/2021 food, housing, medical care, [...] on filedocumented in this encounter Care Teams Electronic Parts Salesperson Relationship Specialty Start Date End Date Anthony Carpenter, ELA, C.N.P., PCP - General Family Medicine M.S.N. [address] [phone] documented as of this encounter
--- OUTSIDE RECORDS SUMMARY | 2022-08-19 06:54 | XMS_ITS | Encounter Summary ---
:1975 Author Organization [facility] Address [address] [place] [address] Care Team Providers Name Role Phone Harvey Crain M.D. Primary Care Provider Reason for Visit Reason Comments Shoulder Pain Encounter Details Date Type Department Care Team Description 06/23/2019 Emergency [facility] Pain Shoulder Left (Primary [address]) [place] [address] [facility] [phone] Social History Tobacco Use Types Packs/Day Years [...] or relatives? How often do you attend rastafari or Patient refused 2020 voodoo services? Do you belong to any clubs or No 07/17/2021 organizations such as rastafari groups, unions, fraternal or athletic groups, or [...] slept in a care home (including now)? Sex Assigned at Date Recorded Not on file documented as of this encounter Medications at Time of Discharge Medication Sig Dispensed Refills Start Date End Date acetaminophen Take 1,000 mg by 0 (for_TYLENOL) 500 mg mouth. tablet ALLERGY 0 01/05/2019 08/03/2019 RELIEF,DIPHENHYDRAMIN, 25 mg capsule busPIRone (BUSPAR) 7.5 mg Take 1 tablet (7.5 60 tablet 11 12/29/2019 tablet mg total) by mouth 2 (two) times a day. cyclobenzaprine (FLEXERIL) TAKE 1 TABLET BY 90 tablet 3 02/201912/29/2019 5 mg tablet MOUTH THREE TIMES DAILY NEEDED FOR MUSCLE SPASM dextroamphetamine-amphetam Take 1 tablet (10 30 tablet 0 07/22/2019 ine (ADDERALL) 10 mg mg total) by mouth tablet daily. CSA 09/10/16 dextroamphetamine-amphetam Take 1 tablet (10 60 tablet 0 08/24/2019 ine (ADDERALL) 10 mg mg total) by mouth tablet 2 (two) times a day. dextroamphetamine-amphetam Take 1 tablet (10 60 tablet 0 12/28/2019 ine (ADDERALL) 10 mg mg total) by mouth tablet 2 (two) times a day. dextroamphetamine-amphetam Take 1 tablet (10 60 tablet 0 12/28/2019 ine (ADDERALL) 10 mg mg total) by mouth tablet 2 (two) times a day. diazePAM (VALIUM) 5 mg Take 5 mg by 0 04/08/2019 08/03/2019 tablet mouth. ibuprofen (ADVIL,MOTRIN) 0 12/30/2018 04/06/2020 800 mg tablet nortriptyline (PAMELOR) 50 TAKE 1 CAPSULE BY 90 capsule 3 12/29/2019 mg capsule MOUTH ONCE DAILY documented as of this encounter Plan of Treatment Not on filedocumented as of this encounter Procedures Procedure Name Priority Date/Time Associated Comments Diagnosis DX SHOULDER LEFT RAD - Semiurgent 06/23/2019 1:53 Pain Shoulder Res ults for this 2+ VIEWS (Fast; most ED AM CDT Left procedure are in patients; some the results inpatients) section. documented in this encounter Results DX Shoulder Left 2+ Views (06/23/2019 1:53 AM CDT) Anatomical Region Laterality Modality Upper Extremity, Shoulder, Musculoskeletal RST LOS, Left Digital Radiography Musculoskeletal ARZ LOS, Muskuloskeletal FLA LOS Specimen (Source) Anatomical Collection Method Collection Time Re ceived Time Location / / Volume Laterality 06/23/2019 7:55 AM CDT Impressions 06/23/2019 7:57 AM CDT Preliminary report generated by virtual radiology. Chronic appearing coarse calcification p rojected along the peripheral proximal margin of the left humeral head, may be sequela of remote injury and/or distal calcific tendinopathy. If clinically ind icated MRI may be helpful for further characterization. Follow-up imaging as clinically indicate d. Minimal change since February 09, 2019. Narrative 06/23/2019 7:57 AM CDT EXAM: DX SHOULDER LEFT 2+ VIEWS COMPARISON: February 09, 2019 Procedure Note Noah Mcdonald M.D. - 06/23/2019Forma tting of this note might be different from the original. EXAM: DX SHOULDER LEFT 2+ VIEWS COMPARISON: February 09, 2019 IMPRESSION: Preliminary report generated by virtual radiology. Chronic appearing coarse calcification p rojected along the peripheral proximal margin of the left humeral head, may be sequela of remote injury and/or distal calcific tendinopathy. If clinically ind icated MRI may be helpful for further characterization. Follow-up imaging as clinically indicate d. Minimal change since February 09, 2019. [facility] SHASHI MARTIN documented in this encounter Visit Diagnoses Diagnosis Pain Shoulder Left - Primary documented in this encounter Care Teams Strategic Consultant Relationship Specialty Start Date End Date Harvey Crain M.D. PCP - General Internal Medicine 02/28/19 07/31/19 documented as of this encounter
--- OUTSIDE RECORDS SUMMARY | 2022-08-19 06:54 | XMS_ITS | Encounter Summary ---
:1975 Author Organization [facility] Address [address] [place] [address] Care Team Providers Name Role Phone Harvey Crain M.D. Primary Care Provider Reason for Referral Outpatient (Routine) - Closed Specialty Diagnoses / Procedures Referred By Contact Refer red To Contact Family Medicine Diagnoses Tear Rotator Cuff Complete Non Trauma Left Kanu Iyer M.D. [facility] [address] [phone] Referral ID Status Reason Start Date Expiration Date Visits Requ ested Visits Authorized [id number] Closed 07/27/2019 07/26/2020 1 1 Outpatient (Routine) - Closed Specialty Diagnoses / Procedures Referred By Contact Refer red To Contact Orthopedic Surgery Diagnoses Tear Rotator Cuff Complete Non Trauma Left Kanu Iyer [facility].D. [facility] [address] [phone] Referral ID Status Reason Start Date Expiration Date Visits Requ ested Visits Authorized [id number] Closed 07/27/2019 07/26/2020 1 1 Outpatient (Routine) - Closed Specialty Diagnoses / Procedures Referred By Contact Refer red To Contact Orthopedic Surgery Diagnoses Tear Rotator Cuff Complete Non Trauma Left Kanu Iyer M.D. 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 12/30/18 - employer:[employer] Work Related Injury Appointment Request (Routine) - Closed Specialty Diagnoses / Procedures Referred By Contact Refer red To Contact Orthopedic Surgery Diagnoses n/a [facility] Procedures n/a Referral ID Status Reason Start Date Expiration Date Visits Requ ested Visits Authorized [id number] Closed 07/25/2019 07/24/2020 1 1 Encounter Details Date Type Department Care Team Description 07/27/2019 Office Visit Department of Kanu Iyer, Tear Rotator Cuff Orthopedic Surgery in [place] Complete Non Trauma [place], [place] [address] Left (Primary Dx) [address] [place], [place] [phone] Social History Tobacco Use Types Packs/Day [...] you attend restorationist or Patient refused 2020 judaism services? Do [...] to pay for the very basics like [employer] hard 07/17/2021 food, housing, medical care, and [...] as of this encounter Patient Instructions Patient InstructionsMiFlorinda gold C.M.A. - 07/27/2019 11:15 AM CDT Surgical education was given to the patient today for left shoulder arthoscopy, to be scheduled withDr. Iyer. Patient verbalized understanding of all information and instructions given. He has had this surgery before so very little was discussed. He plans to call the outpatient surgery rn when he has adate picked for surgery. Florinda Flynn CMA documented in this encounter Progress Notes Kanu Iyer M.D. - 07/27/2019 11:15 AM CDT HISTORY OF PRESENT ILLNESS The patient is a 43-year-old male who is a worker's comp patient through [employer]. He was injured at work in 2017. He had arthroscopic surgery by my partner. He had a SLAP tear that was repaired with open subpectoral biceps tenodesis. He re-injured his knee back in December of 2018. He had a 2nd surgical procedure of a rotator cuff repair. He thought he may have sprained it more recently in March, but it started to bother him again. It just did not feel right. He did well for a couple months, but now it is painful again. It bothers him with pushing, pulling, reaching, lifting, and bothers at night. He has been through therapy. MRI scan now shows a full-thickness to near full-thickness tear of the conjoined tendon which is the coming together of the supraspinatus and infraspinatus with some mildretraction. It is about a 1 cm tear. OBJECTIVE PHYSICAL EXAMINATION Left Shoulder: No swelling, redness, or warmth. He has forward flexion to about 140 degrees. He has positive impingement signs of Neer and Hooker. Rotator cuff strength is good, but not great. The shoulder is stable ligamentously. Neurovascularly intact in the left upper extremity. ASSESSMENT / PLAN #1 Left shoulder recurrent rotator cuff tear PLAN: Discussed with him operative versus nonoperative treatment. Without surgery, it is probably not going to heal on its own. He would just as soon have it fixed surgically. I did discuss with him that recurrent tear could be another injury or the tissue quality may be such that it is not real good,does not have good blood supply, and it will not heal back down well, so every time you have to go in there and try to repair something that is retorn, there is a better chance it just will not heal down well, and he does understand this. It all depends on the tissue quality and the blood supply that is present to that tissue. Risks and benefits were discussed with the patient of infection, bleeding,nerve and vessel injury, and nonhealing of the repair, and he does wish to proceed with surgery, left shoulder arthroscopy and rotator cuff repair. documented in this encounter Plan of Treatment Scheduled Referrals Name Type Priority Associated Order Schedule Diagnoses Orthopedic Surgery Outpatient Referral Routine Tear Rotator Cu ff 1 Occurrences Post Op (clinic) Complete Non Trauma star ting 07/27/2019 Left until 2 Orthopedic Surgery Outpatient Referral Routine Tear Rotator Cu ff 1 Occurrences Post Op (clinic) Complete Non Trauma star ting 07/27/2019 Left until 0 Primary Care - [facility] Outpatient Referral Routine Tear Rotator Cu ff Expected: consult (clinic) Complete Non Trauma 07/12 Left (Approximate), Expires: 2021 documented as of this encounter Visit Diagnoses Diagnosis Tear Rotator Cuff Complete Non Trauma Le ft - Primary documented in this encounter Care Teams Greaser And Oiler Relationship Specialty Start Date End Date Harvey Crain M.D. PCP - General Internal Medicine 02/28/19 07/31/19 documented as of this encounter
--- OUTSIDE RECORDS SUMMARY | 2022-08-19 06:54 | XMS_ITS | Encounter Summary ---
:1975 Author Organization [facility] Address [address] [place] [address] Care Team Providers Name Role Phone Anthony Carpenter APRN, C.N.P., M.S.N. Primary Care Provider + Encounter Details Date Type Department Care Team Description 08/01/2019 Clinical Communication Department of Anthony Carpenter, Orthopedic Surgery in [place], [place] M.S.N. [address] [place] [address] [place], [place] [phone] Social History Tobacco Use Types Packs/Day [...] you attend hoahaoism or Patient refused 2020 samaritan services? Do [...] to pay for the very basics like [employer] hard 07/17/2021 food, housing, medical care, and [...] on filedocumented in this encounter Care Teams Welder Tool And Die Relationship Specialty Start Date End Date Anthony Carpenter, ELA, C.N.P., PCP - General Family Medicine M.S.N. [address] [phone] documented as of this encounter
--- OUTSIDE RECORDS SUMMARY | 2022-08-19 06:54 | XMS_ITS | Encounter Summary ---
:1975 Author Organization [facility] Address [address] [place] [address] Care Team Providers Name Role Phone Harvey Crain M.D. Primary Care Provider Reason for Visit Reason Comments Pain left side of neck and left s [facility] Outpatient (Routine) - Closed Specialty Diagnoses / Referred By Contact Referred To Contact Procedures Physical Medicine and Diagnoses Pain Shoulder Left Pain Neck Anthony Carpenter, [facility] SENIOR SALES OPERATIONS MANAGER, C.N.P., M.S.N. [address] [place] [address] Referral ID Status Reason Start Date Expiration Date Visits Requ ested Visits Authorized [id number] Closed 05/24/2019 05/23/2020 1 1 Encounter Details Date Type Department Care Team Description 07/08/2019 Comprehensive Visit Department of Physical [place], Paresthesia (Primary Dx); Medicine and Harman F, Pain Shoulder L eft; Rehabilitation in .D. Pain Neck; [place], [place] [address] Median Bilateral [address] [place] [id number] Social History Tobacco Use [...] or relatives? How often do you attend temple or Patient refused 2020 mormon services? Do you belong to any clubs or No 07/17/2021 organizations such as temple groups, unions, fraternal or athletic groups, or [...] or the highest technical, or vocational [facility] degree you have received? Sex Assigned at Date Recorded Not on file documented as of this encounter Patient Instructions Patient InstructionsHarman Gillette M.D. - 07/08/2019 8:30 AM CDT Images from the original note were not included. Patient Education Radiculopathy Introduction This resource discusses a condition affecting the spinal (backbone) nerves called radiculopathy. It contains information about the causes, diagnosis and treatment of the condition. If you have questions after reading this information, please discuss them with your health care provider. Many of the words in bold print are defined in the word list. What Are [...] together, but are flexible enough to allow the spine to bend and twist. Tendons fasten your back muscles to your spine. Your back muscles support your spine, which helps you stand upright and move. They also help support the weight of your body and the loads you carry. What Is Radiculopathy? The term radiculopathy comes from the Serbian words ???radiculo,?? meaning root, and ???pathos,?? meaning suffering. Radiculopathy occurs when a spinal nerve root is pinched or pressed, inflamed or injured (see figure 2). This can cause pain along a nerve pathway -- most commonly pain that runs from the neck or back through the affected arm or leg and possibly into the hand or foot. Tingling, numbness or muscle weakness may also be present. Radiculopathy most often affects the lower back. It usually occurs between ages 30 and 50 when involving the lower back and between ages 40 and 60 when involving the neck. It rarely occurs in children. [...] inner cushioning layer to push out into the spinal canal. When all or part of a disc pushes into the spinal canal, it can place pressure on or irritate nearbyspinal nerve roots, causing the pain, numbness and weakness associated with radiculopathy. Other conditions that can affect spinal nerve roots and lead to radiculopathy include the following: ?? Arthritis that causes excess bone (bone spurs) to grow on the spine ?? A tumor on or next to the spine ?? Spinal stenosis (a narrowing of the spinal canal that compresses the nerve roots) ?? Diabetes ?? Scarring from past back surgery What Are the Symptoms of Radiculopathy? The symptoms of radiculopathy can include the following: ?? Pain that runs down your arm or leg ?? Pain in your hands or feet ?? Tingling or numbness in your arm or leg ?? Muscle weakness in your arm or leg Your symptoms may get worse when you engage in certain activities (for example, walking, sitting, standing, coughing, sneezing and bending forward). You may find that you get relief when you lie down or use a back support when sitting. How Is [...] any contributing conditions (such as disc degeneration, spinal canal narrowing, tumors or bone spurs)are present. How Is Radiculopathy Treated? Several treatments are available for radiculopathy. The treatment appropriate for you will depend onthe cause of your radiculopathy and the severity of your symptoms. Non-surgical methods are often tried first, particularly if radiculopathy results from a spinal disc condition (disc problems frequently heal on their own without the need for surgery). Ninety-eight percent of patients respond to non-surgical treatment. Your health care provider may first recommend a combination of the following non-surgical treatments: ?? Rest, accompanied by activity changes -- You may be advised to rest your back for a few days after the start of pain. This will usually not involve complete bed rest. Remaining active can help the healing process. ?? Pain medication -- Your health care provider may recommend [id number] and/or prescription medication to help relieve pain, inflammation and nerve irritation. ?? Physical therapy -- Physical therapy techniques can help relieve pain. ? Traction may be used to relax muscles of the spine that have gone into spasm (muscle tightening that you cannot control) and relieve nerve root tension. ? Ultrasound uses deep heat to help relax painful muscles. ? Transcutaneous electrical nerve stimulation (TENS) applies mild electrical currents to your skin to help control pain. ? Heat or cold therapy applies heating pads or ice packs to help relieve acute pain and reduce inflammation. ? Exercise can help relieve pain. A physical therapist can design an exercise program to strengthen your back, neck and stomach muscles and relieve the pressure of spinal discs on your nerve roots. ? Aerobic exercises may also be included to help relieve pain and improve your overall fitness. You may have some discomfort when you first begin to exercise or participate in physical therapy. This is usually temporary and should lessen as your muscles get stronger. ?? Injections -- Steroid injections to the affected area of the spine may help reduce pain and othersymptoms. Although the effects may not be long-lasting, they may help promote better long-term results if pain relief allows you to participate more actively in physical therapy, exercise and other parts of your treatment program. ?? Spinal manipulation -- Some people find spinal manipulation helpful. A health care provider who is trained in the use of manual manipulation can provide this type of treatment. ?? Surgery -- If non-surgical treatments are unsuccessful, your health care provider may advise you to consider surgery. Surgery is generally recommended for severe and persistent pain that continues to get worse and significantly affects your ability to function. Surgery may also be recommended if you experience weakness in your arms or legs or have trouble controlling your bladder or bowels. Ask your surgeon about the procedures, benefits and risks of surgery. Maintaining a Healthy Back The following suggestions may help you manage pain and other symptoms: ?? Start and continue an exercise program. Exercises that strengthen and increase the flexibility ofyour back and stomach muscles can also help you avoid injury to your spine. Participate in an aerobic exercise activity at least three to five times a week. ?? Maintain a healthy posture. Poor posture can contribute to the development or progression of radiculopathy. ?? Maintain a healthy diet and weight. Carrying extra pounds places unnecessary stress on your back. ?? Learn proper lifting techniques. Bend at the knees and hips and keep your back straight when lifting objects. Carry objects close to your body. ?? Be aware of how you sit, stand and lie down. When sitting, put your feet on a stool or other object that raises your knees above the level of your hips. When standing for a long time, alternately put your feet on a low stool or other raised object. Avoid wearing high-heeled shoes. Do not lie on your abdomen for long periods. ?? Do not smoke. Smoking interferes with the healing process and damages your overall health. When Should I Call My Health Care Provider? If you notice a significant change in your symptoms that lasts more than one week, contact your health care provider. Seek immediate medical treatment if you have either of the following symptoms: ?? Significant numbness, tingling or weakness in an arm or leg ?? Changes in ability to control your bladder [...] continue to explore new ways to prevent and treat radiculopathy. Additional Resources You may wish to check the websites of the following sources for additional information: [facility] Word List Aerobic exercise -- To repeatedly contract large muscle groups, such as your legs and arms, to increase your breathing and heart rate. Degenerate -- Wearing down of a structure. Discs -- Rubbery cushions of cartilage that act as shock absorbers between each vertebra. Facet joints -- Small joints on the back of the vertebrae. Ligaments -- Strong fibrous connective tissue resembling a band or sheet that connects a bone to another bone. Spinal cord -- Lengthy, cord-like bundle of nerves that connects the brain with the nerves of the trunk and extremities. Spinal nerves -- Nerves that run from the spinal cord between each vertebra to serve different muscles and tissues throughout the body. Spinal [...] talk with your health care provider. ? 2002 [facility] [employer] ([employer]). All rights reserved. [id number] documented in this encounter Consult Notes Harman Gillette M.D. - 07/08/2019 8:30 AM CDT SUBJECTIVE CHIEF COMPLAINT/REASON FOR VISIT Anthony Carpenter APRN, C.N.P., M.S.N. sent this patient for consultation regarding evaluation and management of Pain (left side of neck and left shoulder ). HISTORY OF PRESENT ILLNESS Mr. Alon Jaimes is a 43 y.o. male with past medical history significant for left carpal tunnel syndrome, status post surgical release, and left shoulder arthropathy/tendinopathy status post arthroscopic SLAP repair, subacromial decompression and proximal biceps tendonesis in April 2018 and December 2018 who presents for evaluation of subacute radiating left-sided neck pain and upper extremity paresthesias. His original referral to see me also included assessment of his chronic left shoulder pain, however, in the interim, he did seek out and establish care with Dr. Iyer who [facility] to address this. He states having some relief of his shoulder pain immediately following the 1st surgery last April, however, reports that the pain then worsened, gradually, over the ensuing 8 months, hence prompting a 2nd surgery this December. He reports that he did not really appreciate any change/mprovement in his baseline shoulder pain following the 2nd surgery, noting that the pain has remained fairly stable since that time. Starting 2 months ago (4 months after completion of the 2nd surgery) he began to develop new symptoms of left neck and upper back pain, as well as, intermittent numbness and tingling through the posterior arm, anterior and posterior forearm and lat eral hand (affecting digits 1-3). Of note, he denies having changes, or worsening, of his shoulder pain over this period. Currently, the combination of shoulder pain and neck pain/upper extremity paresthesias has been interfering with sleep and multiple daily activities. He has been woken up at night by both the shoulder pain and upper extremity numbness, separately. Since its onset, his neck pain has not significantly changed terms of frequency or severity. He describes the symptoms as achy or burning pain through the left side of his neck and upper back (putting his finger directly over the upper belly of the trapeziusmuscle) with severity ranging between 6-10/10. The symptoms of numbness and tingling involve the region between the shoulder and fingers, and he describes this as uncomfortable though denies ever having any other type of painful sensation throughthis region. The symptoms are made worse with prolonged sitting, transferring, or lifting. Patient did receive a subacromial bursa injection on the left 2 weeks ago and reports having approximately 1 week of 60% pain relief after which the pain recurred to baseline level. He has had carpal tunnel surgery on the left, and reports having no residual hand pain or paresthesias post surgically up until 2 months ago. Patient has also been treated with physical therapy, topical ice, Acetaminophen, NSAIDs and muscle relaxers. Of these he states that the Acetaminophen is helpful. 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 Patient does feel weak in his left shoulder, however, denies having any other regions of focal weakness. He also reports noticing some asymmetry through his upper back, described as ???the left scapular comes out more. Pertinent negatives onreview of systems include; bowel or bladder dysfunction or incontinence, fevers, chills or recent illness, rash or skin change and weight loss. REVIEW OF SYSTEMS All systems were reviewed and were negative except those mentioned in the history of present illnesssection of this note. PATIENT HISTORY The following portions of the patient's history were reviewed and updated as appropriate: allergies,current medications, family history, medical history, social history, surgical history and problem list. OBJECTIVE PHYSICAL EXAM GENERAL/CONSTITUTIONAL: Well-developed and well-nourished appearing individual of stated age in no acute distress. MENTAL STATUS/PSYCHIATRIC: Appropriate mood and affect; able to answer questions appropriately with coherent speech and thought processing. NEUROLOGIC: Gait: Normal johan and stride. Strength: Abductor pollicis brevis 0/-1, interossei 0/0, grading the strength of the remaining upper extremity muscles was difficult on account of shoulder pain provocation. Reflexes: Bilateral upper extremity muscle stretch reflexes are . Special Tests Spine: Spurling???s signs negative for radicular pain bilaterally. MUSCULOSKELETAL: Inspection: No gross axial or appendicular skeletal deformities- there is no visible evidence of periscapular muscle bulk asymmetry or scapular winging with push-off maneuver. Active and passive left shoulder joint range of motion was limited to approximately 90??, in all planes, due to pain provocation. Palpation: Diffuse tenderness throughout the left shoulder with some exaggeratedresponses though palpation of the proximal biceps tendon subacromial space seemed to be, relatively more severely affected. SKIN: Grossly negative for erythema, breakdown or lesions in affected area. LYMPHATIC: No lymphadenopathy appreciated in the supraclavicular or cervical regions. CARDIOVASCULAR: Radial pulses and capillary refill normal. No upper limb edema. RESPIRATORY: Breathing appears comfortable and regular. No dyspnea or cough during the examination. DIAGNOSTICS IMAGING STUDIES: I reviewed the most recent radiographic images with the patient, read and agree with the Radiologist???s reports; Dx Shoulder Left 2+ Views: 06/23/2019 Chronic appearing coarse calcification projected along the peripheral proximal margin of the left humeral head, may be sequela of remote injury and/or distal calcific tendinopathy. Electrodiagnostic studies of the left upper extremity dated March 17, 2017 were reviewed with the patient and were reportedly normal, with no electrophysiologic findings consistent with a median neuropathy or a cervical radiculopathy. IMPRESSION, REPORT & PLAN ASSESSMENT / PLAN #1 Subacute Left Neck Pain And Intermittent Upper Extremity Paresthesias #2 Chronic Left Shoulder Pain Status Post Arthroscopic Slap Repair, Subacromial Decompression And Proximal Biceps Tendonesis In April 2018 And December 2018 #3 History Of Left Carpal Tunnel Syndrome Status Post Surgical Release Mr. Alon Jaimes was referred for evaluation of subacute left neck pain, upper extremity paresthesias and chronic left shoulder pain. I did note that, in the interim, the patient has established care with Dr. Iyer on orthopedics, who did order a shoulder MRI and return visit. The patient presents with fairly diffuse left sided shoulder, upper back and neck pain which could, potentially, all relate to a primary shoulder issue, however, the neck pain just started 2 months ago in the absenceof any other changes involving his shoulder symptoms. Moreover, I would not anticipate his upper extremity paresthesias to directly relate to a primary shoulder issue. Thus, I do have suspicion for a hobson bacute left cervical radiculopathy, which seems to most closely follow C6 pattern. Alternatively, hecould be having recurrent symptoms of median neuropathy with a somewhat atypical presentation, involving the proximal arm, which could account for his asymmetric abductor pollicis brevis weakness (altho ugh this could be an old finding from before his prior CTS surgery). Fortunately, he has physiologicand symmetric muscle stretch reflexes throughout the upper extremity. I had an indepth discussion with the patient regarding my clinical findings; including the etiology,prognosis, and treatment options for possible diagnosis of cervical radiculitis. I recommended proceeding with electrodiagnostic studies of the left upper extremity which the patient chose to defer, due to having a poor prior experience with this study. I ultimately agreed that deferring this still after completion of his shoulder MRI would be reasonable, however, at some point and electromyography could be helpful for untangling some of his symptoms and determining prognosis for his neck and shoulder symptoms. I did provide education on relevant physiologic and biomechanical principles, as well as, some recommendations regarding appropriate behavioral modifications and maintaining neutral postureand quality movements. I informed the patient that I would be happy to see him back, following his assessment with Orthopedics, particularly if they determined that electrodiagnostic testing or directed management for symptomatic radiculopathy is indicated. Following our discussion, he expressed understanding and agreement with the plan, as well as, his appreciation for our discussion. EDUCATION We discussed the diagnosis and treatment plan in detail. Several appropriate questions were raised and were discussed thoroughly prior to dismissal. The patient expressed understanding of the content and was in agreement with the plan. No apparent learning barriers were identified; learning preferences include listening. ADMINISTRATIVE BILLING I spent a total of 60 minutes in [id number] consultation with the patient, with greater than 40 minutes spent on counseling and coordinating care. Signed by: Harman Gillette M.D. 07/08/2019 9:07 AM documented in this encounter Plan of Treatment Not on filedocumented as of this encounter Visit Diagnoses Diagnosis Paresthesia - Primary Pain Shoulder Left Pain Neck Neuropathy Median Bilateral documented in this encounter Care Teams Telecommunications Clerk Relationship Specialty Start Date End Date Harvey Crain M.D. PCP - General Internal Medicine 02/28/19 07/31/19 documented as of this encounter
--- OUTSIDE RECORDS SUMMARY | 2022-08-19 06:54 | XMS_ITS | Encounter Summary ---
:1975 Author Organization [facility] Address [address] [place] [address] Care Team Providers Name Role Phone Anthony Carpenter APRN C.N.P., M.S.N. Primary Care Provider + Reason for Referral Physical Therapy (Routine) - Closed Specialty Diagnoses / Procedures Referred By Contact Refer red To Contact Diagnoses Arthroscopy Shoulder Status Post Concepcion Armijo P.A.-C. 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 Still sore. Worse at night. Requesting a refill of pain medication Outpatient (Routine) - Closed Specialty Diagnoses / Procedures Referred By Contact Refer red To Contact Orthopedic Surgery Diagnoses Tear Rotator Cuff Complete Non Trauma Left Kanu Iyer M.D. [facility] [address] [place] [address] Referral ID Status Reason Start Date Expiration Date Visits Requ ested Visits Authorized [id number] Closed 07/27/2019 07/26/2020 1 1 Encounter Details Date Type Department Care Team Description 08/23/2019 Office Visit Department of Concepcion Armijo Shoulder Status Post (Primary Dx); Orthopedic Surgery in [place]. Tear Rotator Cuff Complete Non Trauma [place], [place] [address] [place], [place] [phone] Social History Tobacco Use Types Packs/Day [...] you attend adventism or Patient refused 2020 adventist services? Do [...] place to sleep or slept in a custodial (including now)? Education Answer Date Recorded What is the highest level of school Associate degree: jacki campo, 06/29/2019 you have completed or the highest technical, or vocational p priscillaram degree you have received? Sex Assigned at Date Recorded Not on file documented as of this encounter Progress Notes Concepcion Armijo P.A.-C. - 08/23/2019 10:15 AM CST PRIMARY CARE PROVIDER Anthony Carpenter APRN, Caterina.Shonda.Gabirel., M.S.N. CHIEF COMPLAINT/REASON FOR VISIT Two week postoperative recheck of left shoulder arthroscopy with rotator cuff repair performed by Dr. Kanu Iyer on 08/08/2019. HISTORY OF PRESENT ILLNESS Alon Jaimes is a very pleasant 43 y.o. male who presents today for 2 week postop recheck of the above-stated procedure performed by Dr. Kanu Iyer on 08/08/2019. Patient reports that he is doing well. He has not started physical therapy. Denies any issues with swelling, numbness, tingling,or extreme pain. No fever chills night sweats, nausea, or vomiting. He continues to have some pain in his shoulder. He has been using the Percocet and would like a refill today. He has been wearing thesling at all times. He is sleeping in a bed with a pillow propping up his arm. PHYSICAL EXAMINATION GENERAL: This is a well-nourished, well-developed, male. Alert and oriented x3 in no acute distress.Cooperative and responds appropriately to all questions. MUSCULOSKELETAL: Examination of the left shoulder reveals 3 well-healing, well- approximated, portal incision sites. These are clean, dry, and intact without signs of infection. These are nearly completely healed. Neurovascularly intact distally. Capillary refill less than 2 seconds. Demonstrates full elbow, wrist and finger range of motion. IMPRESSION/REPORT/PLAN Two weeks status post left shoulder arthroscopy with rotator cuff repair performed by Dr. Kanu Iyer on 08/08/2019. PLAN: Alon Jaimes is doing well. At this point, we did discuss that he can continue with anti-inflammatories such as ibuprofen or Aleve in addition to Tylenol or pain medications. This shouldallow him to cut down on narcotic pain medications. I did give him a refill of Percocet today. Recommended to continuing with icing. All questions were answered to the patient's satisfaction. We will plan on seeing patient back in 4 weeks for recheck with Dr. Kanu Iyer. I gave him a referral for PTso he can start range of motion but he should avoid all strengthening exercises for 10-12 weeks postop. 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 - 08/23/2019 10:15 AM CSTAssociated Order(s): suture removal Post-Procedure Diagnose(s): Arthroscopy Shoulder Status Post Suture removal Date/Time: 08/23/2019 9:48 AM Performed by: Florinda Flynn C.M.A. Authorized by: Concepcion Armijo P.A.-C. PROCEDURE DETAILS Wound appearance: No signs of infection Number of sutures removed: 3 PRE PROCEDURE DETAILS Indicaton: scheduled suture removal Location: Upper extremity Upper extremity location: Shoulder Shoulder location: Left shoulder SEDATION / ANESTHESIA Anesthesia method: none POST PROCEDURE DETAILS Procedure completed successfully: yes Complications: no immediate complications TAIN WORKER documented in this encounter Plan of Treatment Not on filedocumented as of this encounter Procedures Procedure Name Priority Date/Time Associated Diagnosis Comme nts SUTURE REMOVAL Routine 08/23/2019 10:15 AM Arthroscopy Shoulde r Results for this FOUNTAIN WORKER Status Post procedure are i n the results section. documented in this encounter Results SUTURE REMOVAL (08/23/2019 10:15 AM FOUNTAIN WORKER) Narrative MMODAL - 08/23/2019 10:15 AM FOUNTAIN WORKER Florinda Flynn C.M.A. ? 08/23/2019 12:23 PM Suture removal Date/Time: 08/23/2019 9:48 AM Performed by: Florinda Flynn C.M.A. Authorized by: Concepcion Armijo P.A. -C. PROCEDURE DETAILS Wound appearance: ??No signs of infectio n Number of sutures removed: ??3 PRE PROCEDURE DETAILS Indicaton: scheduled suture removal ?? Location: ??Upper extremity Upper extremity location: ??Shoulder Shoulder location: ??Left shoulder SEDATION / ANESTHESIA Anesthesia method: none POST PROCEDURE DETAILS Procedure completed successfully: yes ?? Complications: no immediate complication s ?? Concepcion Armijo P.A.-C. PROCEDURE/MINOR SURGICAL OR DERABLES Performing Organization Address City/State/ZIP Code Phon e Number MMODAL MMODAL NA documented in this encounter Visit Diagnoses Diagnosis Arthroscopy Shoulder Status Post - Prima ry Tear Rotator Cuff Complete Non Trauma Le ft documented in this encounter Care Teams Extension Service Specialist Relationship Specialty Start Date End Date Anthony Carpenter, ELA, C.N.P., PCP - General Family Medicine M.S.N. [address] [place] [phone] documented as of this encounter
--- OUTSIDE RECORDS SUMMARY | 2022-08-19 06:54 | XMS_ITS | Encounter Summary ---
:1975 Author Organization [facility] Address [address] [place] [address] Care Team Providers Name Role Phone Harvey Crain M.D. Primary Care Provider Reason for Visit Reason Comments Med Refill Encounter Details Date Type Department Care Team Description 05/11/2019 Refill Department of Family Medicine, Anthony Carpenter APRN, Med Refill [facility], in [place], C. N.PPatricia, M.S.N. [place] [address] [address] [address] [place] [address] [phone] Social History Tobacco Use Types Packs/Day Years [...] to pay for the very basics like [place] hat hard 07/17/2021 food, housing, medical care, [...] or slept in a penitentiary (including now)? Sex Assigned at Date Recorded Not on file documented as of this encounter Plan of Treatment Not on filedocumented as of this encounter Visit Diagnoses Not on filedocumented in this encounter Care Teams Hadoop Developer Relationship Specialty Start Date End Date Harvey Crain M.D. PCP - General Internal Medicine 02/28/19 07/31/19 documented as of this encounter
--- OUTSIDE RECORDS SUMMARY | 2022-08-19 06:54 | XMS_ITS | Encounter Summary ---
:1975 Author Organization [facility] Address [address] [place] [address] Care Team Providers Name Role Phone Harvey Crain M.D. Primary Care Provider Reason for Referral Outpatient (Routine) - Closed Specialty Diagnoses / Procedures Referred By Contact Refer red To Contact Diagnoses Pain Shoulder Left Kanu Iyer M.D. [facility] [place] [facility] Procedures ito-fzrp-zhwfdllx-elbow arthrocentesis: L subacromial bursa [address] [place] [address] Referral ID Status Reason Start Date Expiration Date Visits Requ ested Visits Authorized [id number] Closed 06/29/2019 06/28/2020 1 1 MRI/CAT/PET Scan (Routine) - Closed Specialty Diagnoses / Procedures Referred By Contact Refer red To Contact Radiology Diagnoses Pain Shoulder Left Kanu Iyer M.D. [facility] [place] [facility] Procedures MR Shoulder Left without IV Contrast AR MRI UPR EXT JOINT WO CNTRST [address], [place] [address] Referral ID Status Reason Start Date Expiration Date Visits Requ ested Visits Authorized [id number] Closed 06/29/2019 06/28/2020 1 1 Reason for Visit Reason Comments Work Related Injury DOI 03/03/18, [employer] Work Related Injury Pain Encounter Details Date Type Department Care Team Description 06/29/2019 Office Visit Department of Kanu Iyer Pain Shoulde r Left Orthopedic Surgery in M.D. 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 - 06/29/2019 9:00 AM CDT HISTORY OF PRESENT ILLNESS The patient is a 43-year-old male who had injured his left shoulder at work in 2018. He had surgery by my partner, Dr. Hoffman of a left shoulder arthroscopy, SLAP repair, rotator cuff repair, subacromial decompression, and open subpectoral biceps tenodesis. This was done on 04/28/2018. He works at [employer]. Injury was initially in 2018. He then re-injured his shoulder and on December 30, 2018, hehad a 2nd surgical procedure of a left shoulder rotator cuff repair, subacromial decompression and debridement of a posterior labral tear, debridement of synovitis. He did well for a couple months and then his shoulder just did not feel right. It has been painful again. He thinks he may have strained it here more recently, but it has bothered him since February or March after that 2nd surgery. The pain is lateral. It bothers him with pushing, pulling, reaching, lifting and will bother him at night. He hasbeen through therapy after each surgery and now he still has concerns about his shoulder. OBJECTIVE PHYSICAL EXAMINATION On exam today, extremities, left shoulder, he has got multiple portal sites that are well healed. The incision from his subpectoral tenodesis is well healed. No swelling, redness or warmth about the shoulder. He has forward flexion to about 140 degrees. He has positive impingement signs of Neer and Hooker. Rotator cuff strength is good but not great, not as good as the other side. The shoulder feelsstable ligamentously. Good range of motion of his elbow. Moves his hand, wrist, and fingers well. Neurovascularly intact in the left upper extremity. ASSESSMENT / PLAN #1 Left shoulder pain He has had 2 arthroscopic surgeries with rotator cuff repair twice. He does request an injection today, which I think would be reasonable. PLAN: I injected the left shoulder subacromial space today with 9 mg of Celestone and lidocaine. Also, will get an MRI scan of that left shoulder being that he is 6 months out from that 2nd repair and thinks he may have strained it again and is still having problems. documented in this encounter Procedure Notes Kanu Iyer M.D. - 06/29/2019 9:00 AM CDTAssociated Order(s): xcf-jblg-ljktbtsk-elbow arthrocentesis: L subacromial bursa Post-Procedure Diagnose(s): Pain Shoulder Left Shoulder site - L subacromial bursa : injection only Date/Time: 06/29/2019 9:09 AM Performed by: Kanu Iyer M.D. Authorized by: Kanu Iyer M.D. PROCEDURE DETAILS Procedure Location shoulder Shoulder site: L subacromial bursa Site prep: patient was prepped [...] for the procedure: yes Skin preparation: alcohol All relevant documentation and testing were reviewed and available. All required blood products, implants, devices and/or special equipment were made available as applicable. The pre-procedure verification was conducted, the correct site was marked if required, and the procedural time out was conducted prior to performing the procedure and confirmed in a procedural pause: yes SEDATION / ANESTHESIA Anesthesia method: none POST-PROCEDURE DETAILS Procedure completed successfully: yes Complications: no apparent complications Discharge instructions: ice area as needed for comfort documented in this encounter Plan of Treatment Not on filedocumented as of this encounter Procedures Procedure Name Priority Date/Time Associated Diagnosis Comme nts AR ARTHCS ASP/INJ Routine 06/29/2019 9:00 AM Pain Shoulder Lef t Results for this MJR JT WO US CDT procedure are i n the results section. documented in this encounter Results MR Shoulder Left without IV Contrast (07/20/2019 8:39 AM CDT) Anatomical Region Laterality Modality Upper Extremity, Shoulder, Musculoskeletal RST LOS, Left Magnetic Resonance Musculoskeletal ARZ LOS, Muskuloskeletal FLA LOS Specimen (Source) Anatomical Collection Method Collection Time Re ceived Time Location / / Volume Laterality 07/20/2019 8:40 AM CDT Impressions 07/20/2019 9:44 AM CDT 1. ??Small full-thickness tear of the conjoined tendon. 2. ??Severe tendinosis of the remainder of infraspinatus with probable intersubstance tearing. 3. ??Prior SLAP repair without evidence of recurrent labral tear. 4. ??Biceps tenodesis. Narrative 07/20/2019 9:44 AM CDT EXAM: MR SHOULDER LEFT WITHOUT IV CONTRAST COMPARISON:None FINDINGS: Postoperative changes prior rotator cuff repair with suture anchors present within the proximal humerus. There is a complete or near complete tear of the conjoined tendon with possibly a few lax articular sided fibers still intact. This tear extends approximately 1 cm in AP dimension with some interval retraction of the torn fibers with fiber s retracted up to 1 cm. There is additional severe tendinosis of the jorgito oni of infraspinatus with some probable intersubstance tearing. The sub scapularis tendon appears normal. Postoperative changes prior biceps tenod esis. Normal glenohumeral joint alignment. Pos toperative changes prior SLAP repair without evidence of recurrent labral tea r. Mild blunting of the posterior labrum likely related to prior surgery. The gle nohumeral joint cartilage is maintained. Physiologic quantity of fluid within the glenohumeral joint. Mild acromioclavicular degenerative joint dis ease. Small amount of fluid within the subacromial/subdeltoid bursa. Probable r eactive bone marrow edema edema within the humeral head. Procedure Note Florentino Cook M.D. - 07/20/2019Formatt ing of this note might be different from the original. EXAM: MR SHOULDER LEFT WITHOUT IV CONTRA ST COMPARISON:None FINDINGS: Postoperative changes prior rotator cuff repair with suture anchors present within the proximal humerus. There is a complete or near complete tear of the conjoined tendon with possibly a few lax articular sided fibers still intact. This tear extends approximately 1 cm in AP dimension with some interval retraction of the torn fibers with fiber s retracted up to 1 cm. There is additional severe tendinosis of the jorgito oni of infraspinatus with some probable intersubstance tearing. The sub scapularis tendon appears normal. Postoperative changes prior biceps tenod esis. Normal glenohumeral joint alignment. Pos toperative changes prior SLAP repair without evidence of recurrent labral tea r. Mild blunting of the posterior labrum likely related to prior surgery. The gle nohumeral joint cartilage is maintained. Physiologic quantity of fluid within the glenohumeral joint. Mild acromioclavicular degenerative joint dis ease. Small amount of fluid within the subacromial/subdeltoid bursa. Probable r eactive bone marrow edema edema within the humeral head. IMPRESSION: 1. Small full-thickness tear of the conj oined tendon. 2. Severe tendinosis of the remainder of infraspinatus with probable intersubstance tearing. 3. Prior SLAP repair without evidence of recurrent labral tear. 4. Biceps tenodesis. Kanu Iyer M.D. IMG MRI PROCEDURES AR ARTHCS ASP/INJ MJR JT WO US (06/29/2019 9:00 AM CDT) Narrative MMODAL - 06/29/2019 9:00 AM CDT Kanu Iyer M.D. ? 06/29/2019 ??9:15 AM Shoulder site - L subacromial bursa : in jection only Date/Time: 06/29/2019 9:09 AM Performed by: Kanu Iyer M.D. Authorized by: Kanu Iyer M.D. PROCEDURE DETAILS Procedure Location shoulder Shoulder site: L subacromial bursa Site prep: patient was prepped [...] procedure : yes ?? Skin preparation: alcohol All relevant documentation and testing w ere reviewed and available. All required blood products, implants, devic es and/or special equipment were made available as applicable. The pre-pr ocedure verification was conducted, the correct site was marked i f required, and the procedural time out was conducted prior to performi ng the procedure and confirmed in a procedural pause: yes ?? SEDATION / ANESTHESIA Anesthesia method: none POST-PROCEDURE DETAILS Procedure completed successfully: yes Complications: no apparent complications ?? Discharge instructions: ice area as need ed for comfort Kanu Iyer M.D. PROCEDURE/MINOR SURGICAL ORD ERABLES Performing Organization Address City/State/ZIP Code Phon e Number MMODAL MMODAL NA documented in this encounter Visit Diagnoses Diagnosis Pain Shoulder Left - Primary Pain Shoulder Left documented in this encounter Administered Medications Inactive Administered Medications - up to 3 most recent administrations Medication Order MAR Action Action Date Dose Rate Site betamethasone acetate & sodium Given 06/29/2019 9:09 AM CDT 9 mg phosphate injection 9 mg (CELESTONE SOLUSPAN) 9 mg, intra-articular, One-Time Injection, Starting on Thu06/29/19 at 0909, For 1 dose lidocaine 10 mg/mL (1 %) injection 8 mL Given 06/29/2019 9:09 AM CDT 8 mL (XYLOCAINE) 8 mL, infiltration, One-Time Injection, Starting on Thu06/29/19 at 0909, For 1 dose documented in this encounter Care Teams Nca Certified Concierge Relationship Specialty Start Date End Date Harvey Crain M.D. PCP - General Internal Medicine 02/28/19 07/31/19 documented as of this encounter
--- OUTSIDE RECORDS SUMMARY | 2022-08-19 06:54 | XMS_ITS | Encounter Summary ---
:1975 Author Organization [facility] Address [address] [place] [address] Care Team Providers Name Role Phone Harvey Crain M.D. Primary Care Provider Encounter Details Date Type Department Care Team Description 05/09/2019 Clinical Communication Department of [facility] Anthony Carpenter, Medicine, [place] [facility], Clinic, in [facility] [address] [place] [phone] Social History Tobacco Use Types Packs/Day Years [...] you attend buddhism or Patient refused 2020 tenriism services? Do [...] to pay for the very basics like [place] hat hard 07/17/2021 food, housing, medical care, [...] or slept in a usp (including now)? Sex Assigned at Date Recorded Not on file documented as of this encounter Plan of Treatment Not on filedocumented as of this encounter Visit Diagnoses Not on filedocumented in this encounter Care Teams Patient Care Manager Relationship Specialty Start Date End Date Harvey Crain M.D. PCP - General Internal Medicine 02/28/19 07/31/19 documented as of this encounter
--- OUTSIDE RECORDS SUMMARY | 2022-08-19 06:54 | XMS_ITS | Encounter Summary ---
:1975 Author Organization [facility] Address [address] [place] [address] Care Team Providers Name Role Phone Harvey Crain M.D. Primary Care Provider Encounter Details Date Type Department Care Team Description 05/26/2019 Nurse Triage Department of [facility] Perlita Guzman R.N. Medicine, [facility], in [address] [place] [address] [place] [address] [place] [address] [phone] Social History Tobacco Use Types Packs/Day Years [...] you attend zoroastrianism or Patient refused 2020 samaritan services? Do [...] or slept in a halfway (including now)? Sex Assigned at Date Recorded Not on file documented as of this encounter Plan of Treatment Not on filedocumented as of this encounter Visit Diagnoses Not on filedocumented in this encounter Care Teams Administrative Liaison Relationship Specialty Start Date End Date Harvey Crain M.D. PCP - General Internal Medicine 02/28/19 07/31/19 documented as of this encounter
--- OUTSIDE RECORDS SUMMARY | 2022-08-19 06:54 | XMS_ITS | Encounter Summary ---
:1975 Author Organization [facility] Address [address] [place] [address] Care Team Providers Name Role Phone Anthony Carpenter APRN C.N.PPatricia, M.S.N. Primary Care Provider + Encounter Details Date Type Department Care Team Description 08/17/2019 Clinical Communication Department of [facility] Anthony Carpenter, Medicine, [place] ELA, C.N.PPatricia, Clinic, [facility] [place] [address] [address] [place] [phone] Social History Tobacco Use Types Packs/Day Years [...] you attend jewish or Patient refused 2020 holiness services? Do [...] to pay for the very basics like [employer] hat hard 07/17/2021 food, housing, medical care, [...] on filedocumented in this encounter Care Teams Transit Manager Relationship Specialty Start Date End Date Anthony Carpenter, ELA, C.N.P., PCP - General Family Medicine M.S.N. [address] [phone] documented as of this encounter
--- OUTSIDE RECORDS SUMMARY | 2022-08-19 06:54 | XMS_ITS | Encounter Summary ---
:1975 Author Organization [facility] Address [address] [place] [address] Care Team Providers Name Role Phone Harvey Crain M.D. Primary Care Provider Encounter Details Date Type Department Care Team Description 05/25/2019 Orders Only Department of Physical [place], [place] [facility] Neck (Primary Medicine and Watson Javier Dx) Rehabilitation in [address] [place], [place] [address] [address] [place] [address] [facility] [phone] Social History Tobacco Use Types Packs/Day Years [...] you attend pentecostalism or Patient refused 2020 jewish services? Do you belong to any clubs [...] or slept in a residential (including now)? Sex Assigned at Date Recorded Not on file documented as of this encounter Plan of Treatment Not on filedocumented as of this encounter Visit Diagnoses Diagnosis Pain Neck - Primary documented in this encounter Care Teams Information Systems Analyst Relationship Specialty Start Date End Date Harvey Crain M.D. PCP - General Internal Medicine 02/28/19 07/31/19 documented as of this encounter
--- OUTSIDE RECORDS SUMMARY | 2022-08-19 06:54 | XMS_ITS | Encounter Summary ---
:1975 Author Organization [facility] Address [address] [place] [address] Care Team Providers Name Role Phone Anthony Carpenter APRN, C.N.P., M.S.N. Primary Care Provider + Reason for Referral Outpatient (Routine) - Closed Specialty Diagnoses / Procedures Referred By Contact Refer red To Contact Diagnoses Preoperative Exam Maya Galan [facility] Region Procedures ECG 12 Lead P.A.-C. [address] [place] [address] Referral ID Status Reason Start Date Expiration Date Visits Requ ested Visits Authorized [id number] Closed 08/03/2019 08/02/2020 1 1 Reason for Visit Reason Comments Other pre op left shoulder rotator cuff Outpatient (Routine) - Closed Specialty Diagnoses / Procedures Referred By Contact Refer red To Contact Family Medicine Diagnoses Tear Rotator Cuff Complete Non Trauma Left Kanu Iyer M.D. [facility] Region [address] [place] [address] Referral ID Status Reason Start Date Expiration Date Visits Requ ested Visits Authorized [id number] Closed 07/27/2019 07/26/2020 1 1 Encounter Details Date Type Department Care Team Description 08/03/2019 Office Visit Department of Family Maya Galan reoperative Exam (Primary Dx); Medicine, Primitivo Zuñiga P.A.-C. Tear Rotator Cuff Complete Non Trauma [facility], [facility] [place], [address] [address] [place] [phone] (Work) [phone] Social History Tobacco Use Types Packs/Day Years [...] you attend congregation or Patient refused 2020 catholic services? Do [...] Sign Reading Time Taken Comments Blood Pressure 124/80 08/03/2019 9:50 AM CDT Pulse 110 08/03/2019 9:50 AM CDT Temperature 35.9 ??C (96.6 ??F) 08/03/2019 9:50 AM CDT Respiratory Rate 13 08/03/2019 9:50 AM CDT Oxygen Saturation - - Inhaled Oxygen Concentration - - Weight 64.9 kg (143 lb 1.3 oz) 08/03/2019 9:50 AM CDT Height 165 cm (5' 4.96) 08/03/2019 9:50 AM CDT Body Mass Index 23.84 08/03/2019 9:50 AM CDT documented in this encounter Patient Instructions Patient InstructionsMiMaya florez P.A.-C., P.A. - 08/03/2019 10:30 AM CDT 1. Advised no aspirin-containing products or NSAIDS- no Iburpofen, Excedrin, Aleve, or Aspirin for full 7 days prior to procedure. May take Tylenol. 2. Medication instructions include: may continue to take Buspar, Nortriptyline take. HOLD Adderall and HOLD cyclobenzaprine (flexeril). documented in this encounter H&P Notes Maya Galan P.A.-C., P.A. - 08/03/2019 10:30 AM CDT SUBJECTIVE CHIEF COMPLAINT / REASON FOR VISIT Other (pre op left shoulder rotator cuff) HISTORY OF PRESENT ILLNESS Alon Jaimes is a 43 y.o. male who presents today for Other (pre op left shoulder rotator cuff). Surgery date: 08/08/[address] Iyer Surgery: Left shoulder arthroscopy rotator cuff repair. Anesthesia: General ADHD: - takes Adderall 10 mg twice daily. Anxiety: - Currently taking 7.5 mg Buspar twice daily Insomnia: - Takes Nortriptyline 50 mg nightly for insomnia, which he reports helps. He is not currently taking Flexeril. Is not sure what he is taking this for, but does not want it removed from his medication list. He has stopped taking Ibuprofen at this point, but does historically take it. Cardiovascular disease: none Pulmonary disease: none Sleep Apnea: none Diabetes: none Recent illnesses: none Recent antibiotic use: none Recent steroid use: none Activity level: active lifestyle. Able to walk up two flights of stairs without chest pain or shortness of breath. Smoker: none Alcohol use: none Illicit drug use: none Anesthesia complications: none Bleeding/Clotting: none Glasses/Contacts: glasses- has bifocals. Hearing aids: none Dentures: partial denture- bottom bilaterally Transportation: will not be driving. REVIEW OF SYSTEMS: General: No weight changes, fevers, recent illness- reports appetite change related to increased marital stress. Head: No headache, injury/trauma, or pain Ears: No hearing changes, earache. Reports some ringing in his ears, chronic x2 years, has seen audiology in [place]. Eyes: No vision changes, pain, or light sensitivity Sinuses: No pain, pressure, or fullness Oropharynx: No sores, throat pain, or changes in dentition Neck: No swollen glands, goiter, pain, or stiffness Breasts: No lumps, pain, discoloration, discharge, or changes in skin texture Cardiac: No palpitations, racing, skipping, chest pain or pressure Respiratory: No shortness of breath, wheezing, or cough Gastrointestinal: No constipation, diarrhea, pain, nausea or vomiting Urinary: No frequency, pain, burning or changes in continence Genital: - Male: No penile sores or discharge, scrotal pain or swelling Musculoskeletal: No changes in muscle/joint pain, stiffness, or gout Psychiatric: No changes in mood, anxiety or depression Peripheral vascular: No LE swelling, pain, discoloration or redness Endocrine: No hot/cold intolerance, abnormal hair loss, polyuria or polydipsia Heme: No history of anemia, easy bruising, or history of transfusions/transfusion reactions Neurologic: No changes in orientation, weakness or loss of strength, numbness or tingling Skin: No new rashes, lumps, sores, or changes in color ALLERGIES Gadolinium-containing contrast media; Adhesive tape-silicones; Ketorolac; Latex; Penicillins; and Tramadol No past medical history on file. Past Surgical History: Procedure Laterality Date ??? CLOSURE OF SKIN BY SUTURE N/A 05/28/2007 Closure of Skin and Subcutaneous Tissue Other Sites ??? DECOMPRESSION OF MEDIAN NERVE N/A 05/30/2013 Carpal tunnel release ??? ROTATOR CUFF REPAIR Left 04/28/2018 ??? SHOULDER ARTHROSCOPY W/ SUPERIOR LABRAL ANTERIOR POSTERIOR REPAIR Left 04/28/2018 Family History Problem Relation Age of Onset ??? Alcohol abuse Father Social History Socioeconomic History ??? Marital status: Spouse name: Not on file ??? Number of children: Not on file ??? Years of education: Not on file ??? Highest education level: Associate degree: occupational, technical, or vocational program Occupational History ??? Not on file Social Needs ??? Financial resource strain: Not hard at all ??? Food insecurity: Worry: Never true Inability: Never true ??? Transportation needs: Medical: No Non-medical: No Tobacco Use ??? Smoking status: Never Smoker ??? Smokeless tobacco: Current User Types: Chew Substance and Sexual Activity ??? Alcohol use: No Frequency: Never ??? Drug use: No ??? Sexual activity: Defer Lifestyle ??? Physical activity: Days per week: 5 days Minutes per session: 10 min ??? Stress: To some extent Relationships ??? Social connections: Talks on phone: Twice a week Gets together: Patient refused Attends catholic service: Patient refused Active member of club or organization: No Attends meetings of clubs or organizations: Never Relationship status: ??? Intimate partner violence: Fear of current or ex partner: Not on file Emotionally abused: Not on file Physically abused: Not on file Forced sexual activity: Not on file Other Topics Concern ??? Not on file Social History Narrative ??? Not on file OBJECTIVE Blood pressure 124/80, pulse 110, temperature (!) 35.9 ??C, resp. rate 13, height 165 cm, weight 64.9 kg. PHYSICAL EXAMINATION General: Alert, pleasant male appearing in no acute distress. Neuro: Oriented x 3, responds appropriately to questions and follows commands without difficulty. Pupils equal and reactive to light. EOMs intact. Muscle tone and strength normal and equal bilaterally without weakness or involuntary movements. Head: Normocephalic, atraumatic. Eyes: Sclerae clear without injection, conjunctivae without drainage erythema or matting. ENT: External ear canals patent, TMs pearly bilaterally. Oropharynx moist and pink without exudate. Neck: Supple without lymphadenopathy. No thyromegaly or carotid bruits. Heart: Normal S1, S2 with regular rate and rhythm. No murmurs or S3, S4 appreciated. Possible occasional PVC noted on exam. Lungs: Clear to auscultation bilaterally posteriorly without rhonchi, wheezes, or crackles. No coughon exam today. Respirations are easy and unlabored. Abdomen: Soft, nondistended, nontender to palpation without palpable masses or organomegaly. Extremities: No upper or lower extremity edema or cyanosis. Skin: Warm and dry without rashes on the visible areas. Psychiatric: Appropriate mood and affect. Makes good eye contact. Dressed appropriately. Contributesmeaningfully to conversation. STOP BANG Score 1 ASSESSMENT / PLAN #1 Tear Rotator Cuff Complete Non Trauma Left - Primary Care - DEANNA consult (clinic) #2 Preoperative Exam - possible occasional PVC noted on physical exam today, will get an EKG and let patient know resultswhen they are available. - This patient is medically optimized for the above-mentioned procedure with a low risk profile. Patient is capable of achieving greater than 4 METS without cardiopulmonary symptoms. Patient is ASA class I. - Advised no aspirin-containing products or NSAIDS 7 days prior to procedure. May take Tylenol. Advised no supplement or herbal product use. - Medication instructions include: may continue to take Buspar, Nortriptyline take. HOLD Adderall, HOLD cyclobenzaprine (flexeril). - Labs are not indicated at this time. - Follow-up as needed. All questions have been answered and patient is in agreement with this plan. Maya Galan P.A.-C., P.A. documented in this encounter Plan of Treatment Not on filedocumented as of this encounter Results ECG 12 Lead (08/03/2019 10:45 AM CDT) P athologist Signature Ventricular Rate 77 BPM MUSE ECG/Min NE Interval 148 ms MUSE QRSD Interval 96 ms MUSE QT Interval 374 ms MUSE QTC Interval 423 ms MUSE P [place] 49 degrees MUSE R [place] 68 degrees MUSE T Wave [place] 57 degrees MUSE Specimen Anatomical Collection Method Collection Time Receive d Time (Source) Location / / Volume Laterality 08/03/2019 10:45 08/03/2019 AM CDT 10:56 AM CDT Impressions MUSE - 08/03/2019 10:56 AM CDT Normal sinus rhythm Normal ECG No previous ECGs available Reviewed by JUAN Nunez Narrative This result has an attachment that is no t available. Procedure Note Conor Ny M.D. - 08/03/2019Formatt ing of this note might be different from the original. IMPRESSION: Normal sinus rhythm Normal ECG No previous ECGs available Reviewed by JUAN Nunez Maya Galan P.A.-C. ECG ORDERABLES Performing Organization Address City/State/ZIP Code Phon e Number MUSE MUSE NA documented in this encounter Visit Diagnoses Diagnosis Preoperative Exam - Primary Tear Rotator Cuff Complete Non Trauma Le ft Preoperative Exam documented in this encounter Care Teams Fingernail Technician Relationship Specialty Start Date End Date Anthony Carpenter, ELA, C.N.P., PCP - General Family Medicine M.S.N. [address] [phone] documented as of this encounter
--- OUTSIDE RECORDS SUMMARY | 2022-08-19 06:54 | XMS_ITS | Encounter Summary ---
:1975 Author Organization [facility] Address [address] [place] [address] Care Team Providers Name Role Phone Anthony Carpenter APRN, C.N.P., M.S.N. Primary Care Provider + Reason for Visit Reason Onset Date Comments SURGERY DATE 08/01/2019 LEFT ROTATOR CUFF TE AR Encounter Details Date Type Department Care Team Description 08/01/2019 Clinical Communication Department of [facility], SURG BEENA DATE (LEFT Orthopedic Surgery [place] ROTATOR CUFF TEAR ) in [facility] [address] [address] [place] [phone] Social History Tobacco Use Types Packs/Day Years [...] you attend adventism or Patient refused 2020 muslim services? Do [...] to pay for the very basics like [employer] hat hard 07/17/2021 food, housing, medical care, [...] this encounter Miscellaneous Notes Telephone Encounter - Makayla Poon - 08/01/2019 3:21 PM CDT Spoke to pt and advised w/c being denied and that he will need to run through personal insurance. Ptadvise that he will go ahead and schedule surgery and bill to personal insurance. Telephone Encounter - Dorothea Vargas - 08/01/2019 12:18 PM CDT telephone call received from [employer] that this injury is not work related and should be billed under personal family insurance Telephone Encounter - Makayla Poon - 08/01/2019 10:14 AM CDT [facility] DATE: [facility] DATE: 08/08/2019 B: REQUEST FOR SURGERY: LEFT SHOULDER ARTHROSCOPY ROTATOR CUFF REPAIR A: RISK ASSESSMENT: ANESTHESIA: GENERAL R: HOSPITAL ARRIVAL TIME: SURGEON: ADOLFO LOCATION: [facility] LABS: N/A WORK COMP DENIED: - PT ADVISED DOI: 06/23/2019 EMP: [employer] [address] [place] [address] CLAIM# [id number] INS: [employer] documented in this encounter Plan of Treatment Not on filedocumented as of this encounter Visit Diagnoses Not on filedocumented in this encounter Care Teams Audio Production Engineer Relationship Specialty Start Date End Date Anthony Carpenter APRN, C.N.P., PCP - General Family Medicine M.S.N. [address] [phone] documented as of this encounter
--- OUTSIDE RECORDS SUMMARY | 2022-08-19 06:54 | XMS_ITS | Encounter Summary ---
:1975 Author Organization [facility] Address [address] [place] [address] Care Team Providers Name Role Phone Harvey Crain M.D. Primary Care Provider Reason for Visit Reason Onset Date Comments Medical Information 04/26/2019 Encounter Details Date Type Department Care Team Description 04/26/2019 Clinical Department of Harvey Crain Medical [facility] Communication Internal Medicine M.DPatricia in [address] [place] [phone] Social History Tobacco Use Types Packs/Day Years [...] or relatives? How often do you attend worship or Patient refused 2020 hinduism services? Do you belong to any clubs or No 07/17/2021 organizations such as worship groups, unions, fraternal or athletic groups, or [...] or slept in a mcfp (including now)? Sex Assigned at Date Recorded Not on file documented as of this encounter Miscellaneous Notes Telephone Encounter - Florinda Arndt L.P.N. - 04/27/2019 9:29 AM CDT LMTCB Telephone Encounter - Anthony Carpenter APRN, C.N.P., M.S.N. - 04/27/2019 7:55 AM CDT I do not see it in the chart and I have not receive the paperwork. When was it sent and to what fax number? Anthony Telephone Encounter - Ekaterina Grimaldo L.P.N. - 04/26/2019 4:36 PM CDT [facility] Please advise is paperwork is else where. Telephone Encounter - Julio Champagne - 04/26/2019 12:42 PM CDT Reason for Communication: Patient called and is wondering if Anthony Carpenter received some paper work from a [employer] who is the patients mental health provider. Patient would like a call letting him know if the paperwork was received or not. please advise. Current Can Nursing/Provider leave a detailed message: yes Did the patient refuse triage through Nurse line? (for symptom based concerns): Action Needed: Name of Medication (if relevant): documented in this encounter Plan of Treatment Not on filedocumented as of this encounter Visit Diagnoses Not on filedocumented in this encounter Care Teams Running Rigger Relationship Specialty Start Date End Date Harvey Crain M.D. PCP - General Internal Medicine 02/28/19 07/31/19 documented as of this encounter
--- OUTSIDE RECORDS SUMMARY | 2022-08-19 06:54 | XMS_ITS | Encounter Summary ---
:1975 Author Organization [facility] Address [address] [place] [address] Care Team Providers Name Role Phone Harvey Crain M.D. Primary Care Provider Reason for Visit Reason Comments Med Refill Encounter Details Date Type Department Care Team Description 07/22/2019 Refill Department of Internal Kailey Crain M.D. Med Refill Medicine in [address] [address] [address] [place] [address] [facility] [phone] Social History Tobacco Use Types Packs/Day Years [...] you attend episcopal or Patient refused 2020 yarsani services? Do [...] encounter Miscellaneous Notes Telephone Encounter - Poornima Rodriguez C.MNixon - 07/25/2019 3:00 PM CDT SUBJECTIVE CHIEF COMPLAINT / REASON FOR CALL Med Refill Patient is requesting the following information: RX refill PLAN The following information was provided : RX refilled and patient has been notified, will picked edge sewing machine operator at information desk. Information: patient/caller able to repeat back in their own words The following references were used: provider Harvey Crani MD Telephone Encounter - Harvey Crain M.D. - 07/25/2019 10:41 AM CDT Ready to be faxed/picked up. Telephone Encounter - Isamar Henry - 07/22/2019 10:49 AM CDT Nurse review: Unable to pend medication; Controlled substance Primary Provider: Harvey Crain M.D. ?? Name of medication: Adderall Strength: 10 mg Frequency: take 1 tablet by mouth twice daily Quantity: 60 Refills: na Last Refill: ?? Pharmacy: [facility] documented in this encounter Plan of Treatment Not on filedocumented as of this encounter Visit Diagnoses Not on filedocumented in this encounter Care Teams Cardiothoracic Physiotherapist Relationship Specialty Start Date End Date Harvey Crain M.D. PCP - General Internal Medicine 02/28/19 07/31/19 documented as of this encounter
--- OUTSIDE RECORDS SUMMARY | 2022-08-19 06:54 | XMS_ITS | Encounter Summary ---
:1975 Author Organization [facility] Address [address] [place] [address] Care Team Providers Name Role Phone Harvey Crain M.D. Primary Care Provider Reason for Visit Reason Comments Shoulder Pain Encounter Details Date Type Department Care Team Description 05/28/2019 Emergency [facility] Pain Shoulder Left (Primary [address]) [place] [address] [facility] hospital [phone] Social History Tobacco Use Types Packs/Day Years [...] you attend orthodoxy or Patient refused 2020 anglican services? Do [...] or slept in a assisted (including now)? Sex Assigned at Date Recorded [...] Primary documented in this encounter Care Teams Commercial Driver Relationship Specialty Start Date End Date Harvey Crain M.D. PCP - General Internal Medicine 02/28/19 07/31/19 documented as of this encounter
--- OUTSIDE RECORDS SUMMARY | 2022-08-19 06:54 | XMS_ITS | Encounter Summary ---
:1975 Author Organization [facility] Address [address] [place] [address] Care Team Providers Name Role Phone Harvey Crain M.D. Primary Care Provider Reason for Referral MRI/CAT/PET Scan (Routine) - Closed Specialty Diagnoses / Procedures Referred By Contact Refer red To Contact Radiology Diagnoses Pain Shoulder Left Kanu Iyer M.D. [facility] Region Procedures MR Shoulder Left without IV Contrast [place] MRI UPR EXT JOINT WO [facility] [address] [place] [phone] Referral ID Status Reason Start Date Expiration Date Visits Requ ested Visits Authorized [id number] Closed 06/29/2019 06/28/2020 1 1 Reason for Visit MRI/CAT/PET Scan (Routine) - Closed Specialty Diagnoses / Procedures Referred By Contact Refer red To Contact Radiology Diagnoses Pain Shoulder Left Kanu Iyer M.D. [facility] [place] Region Procedures MR Shoulder Left without IV Contrast [place] MRI UPR EXT JOINT WO [facility] [address] [place] [address] Referral ID Status Reason Start Date Expiration Date Visits Requ ested Visits Authorized [id number] Closed 06/29/2019 06/28/2020 1 1 Encounter Details Date Type Department Care Team Description 07/20/2019 Hospital Encounter Department of Kanu Iyer Pain S [place] Left Radiology in [place], [place] [address] [place] [phone] Social History Tobacco Use Types Packs/Day [...] you attend protestant or Patient refused 2020 mandaeism services? Do you belong to any clubs [...] Diagnosis MR SHOULDER LEFT RAD - Routine 07/20/2019 8:39 Pain Shoulder Result s for this WITHOUT [...] tenodesis. Kanu Iyer M.D. IMG MRI PROCEDURES documented in this encounter Visit Diagnoses Diagnosis Pain Shoulder Left documented in this encounter Care Teams Head Strength And Conditioning Coach Relationship Specialty Start Date End Date Harvey Crain M.D. PCP - General Internal Medicine 02/28/19 07/31/19 documented as of this encounter
--- OUTSIDE RECORDS SUMMARY | 2022-08-19 06:54 | XMS_ITS | Encounter Summary ---
:1975 Author Organization [facility] Address [address] [place] [address] Care Team Providers Name Role Phone Harvey Crain M.D. Primary Care Provider Reason for Referral Outpatient (Routine) - Closed Specialty Diagnoses / Referred By Contact Referred To Contact Procedures Physical Medicine and Diagnoses Pain Shoulder Left Pain Neck Anthony Carpenter, [facility] ELA, C.N.P., M.S.N. [address] [place] [address] Referral ID Status Reason Start Date Expiration Date Visits Requ ested Visits Authorized [id number] Closed 05/24/2019 05/23/2020 1 1 Reason for Visit Reason Comments Shoulder Pain left, had injection Appointment Request (Routine) - Closed Specialty Diagnoses / Procedures Referred By Contact Refer red To Contact Family Medicine Referral ID Status Reason Start Date Expiration Date Visits Requ ested Visits Authorized [id number] Closed 05/10/2019 05/09/2020 1 1 Encounter Details Date Type Department Care Team Description 05/24/2019 Office Visit Department of Family Anthony Carpenter Pai n Shoulder Left (Primary Dx); Medicine, [place] ELA, C.N.P., Pain Nec k; Clinic, in [place], M.S.N. Anxiety; [place] [address] Paresthesia [address] [place] [phone] Social History Tobacco Use Types Packs/Day Years [...] you attend lutheran or Patient refused 2020 spiritism services? Do [...] Sign Reading Time Taken Comments Blood Pressure 122/70 05/24/2019 8:30 AM CDT Pulse 78 05/24/2019 8:30 AM CDT Temperature - - Respiratory Rate - - Oxygen Saturation - - Inhaled Oxygen Concentration - - Weight 66 kg (145 lb 8.1 oz) 05/24/2019 8:30 AM CDT Height - - Body Mass Index 24.1 2018 9:35 AM SUPPORT SERVICES COORDINATOR documented in this encounter Progress Notes Anthony Carpenter, ELA, C.N.P., M.S.N. - 05/24/2019 9:00 AM CDT SUBJECTIVE CHIEF COMPLAINT / REASON FOR VISIT Alon Jaimes is a 43 y.o. male who presents for evaluation of Shoulder Pain (left, had injection ). HISTORY OF PRESENT ILLNESS Alon Jaimes is a(n) 43 y.o. male is here with complaints of left shoulder pain, left neck pain, and anxiety. He is 5 months out from left shoulder arthroscopic revision rotator cuff repar. He did have severalfalls after surgery and was doing well until early March when he developed pain in his left arm and not being able to lift his left arm above his shoulder. Dr. Pineda recommended additional physical therapy which he has not been compliant with. He also complains that at night his neck, shoulder, and arm tighten up causing him to sleep poorly. He recently saw Dr. Pineda on 05/20 and again he recommended that he get back into physical therapy. A cortisone injection was also preformed and the patient has not had relief from this. He is still working and has not followed work restrictions that were recommended. He has left sided soft tissue neck pain and stiffness. He is now also experiencing numbness and tingling that radiates into his fingers of his left arm for the past 4 weeks. Patient also complains of issues with anxiety that causes him to have difficulty relaxing and sleeping. Due to his shoulder pain the patient complains that this is getting worse. He is becoming more irritable with his significant other and has a difficult time relaxing. He denies problems with depression. REVIEW OF SYSTEMS See HPI, remainder of [...] Age of Onset ??? Alcohol abuse Father SOCIAL HISTORY Social History Socioeconomic History ??? Marital status: Spouse name: None ??? Number of children: None ??? Years of education: None ??? Highest education level: None Occupational History ??? None Social Needs ??? Financial resource strain: None ??? Food insecurity: Worry: None Inability: None ??? Transportation needs: Medical: No Non-medical: None Tobacco Use ??? Smoking status: Never Smoker ??? Smokeless tobacco: Current User Types: Chew Substance and Sexual Activity ??? Alcohol use: No Frequency: Never ??? Drug use: No ??? Sexual activity: Defer Lifestyle ??? Physical activity: Days per week: 5 days Minutes per session: 30 min ??? Stress: Rather much Relationships ??? Social connections: Talks on phone: None Gets together: None Attends spiritism service: Never Active member of club or organization: No Attends meetings of clubs or organizations: None Relationship status: None ??? Intimate partner violence: Fear of current or ex partner: None Emotionally abused: None Physically abused: None Forced sexual activity: None Other Topics Concern ??? None Social History Narrative ??? None MEDICATIONS Current Outpatient Medications on File Prior to Visit Medication Sig Dispense Refill ??? acetaminophen (for_TYLENOL) 500 mg tablet Take 1,000 mg by mouth. ??? ALLERGY RELIEF,DIPHENHYDRAMIN, 25 mg capsule 0 ??? cyclobenzaprine (FLEXERIL) 5 mg tablet TAKE 1 TABLET BY MOUTH THREE TIMES DAILY NEEDED FOR MUSCLE SPASM 90 tablet 3 ??? dextroamphetamine-amphetamine (ADDERALL) 10 mg tablet Take 1 tablet (10 mg total) by mouth 2 (two) times a day. 60 tablet 0 ??? [START ON 06/11/2019] dextroamphetamine-amphetamine (ADDERALL) 10 mg tablet Take 1 tablet (10 mg total) by mouth 2 (two) times a day. 60 tablet 0 ??? diazePAM (VALIUM) 5 mg tablet Take 5 mg by mouth. ??? ibuprofen (ADVIL,MOTRIN) 800 mg tablet ??? nortriptyline (PAMELOR) 50 mg capsule TAKE 1 CAPSULE BY MOUTH ONCE DAILY 90 capsule 3 ??? dextroamphetamine-amphetamine (ADDERALL) 10 mg tablet Take 1 tablet (10 mg total) by mouth daily. CSA 09/10/16 30 tablet 0 ??? dextroamphetamine-amphetamine (ADDERALL) 10 mg [...] ??? Tramadol Rash OBJECTIVE VITAL SIGNS BP 122/70 (BP Location: Right arm, Patient Position: Sitting, Cuff Size: Large) Pulse 78 Wt 66 kg BMI 24.10 kg/m?? PHYSICAL EXAMINATION General: healthy, alert, no distress. Skin: skin color, texture, turgor normal, no suspicious rashes or lesions. Cardiac: Regular rate and rhythm. No murmurs, gallops or rubs noted. Pulmonary: Clear to auscultation bilaterally. No expiratory wheeze. No accessory muscles of respiration noted. Musculoskeletal: Left Shoulder: Patient has approximately 100?? of active and passive flexion at his shoulder. Patient has internal rotation to approximately 45?? and external rotation to 65??. Patient has good sensation in all fingers on left hand. CAP refill less than 2 secs. Neurovascular is intact. Examination of the ipsilateral shoulder is negative for abnormal findings. Neck: No tenderness to palpation over the spinous processes, paraspinal tenderness on the left sideto palpation, trapezius tenderness left and range of motion limited intact with some discomfort. ASSESSMENT / PLAN DIAGNOSIS 1. Pain Shoulder Left 2. Pain Neck 3. Left arm paresthesias -I think the patient's neck pain is probably most likely related to his shoulder pain causing the muscles to tense up. His neck pain does appear to be soft tissue in etiology. For better management of the patient's pain and radicular symptoms I have recommended that he see Physical Medicine and Rehabilitation and I have put a consult in for this. -Patient has cyclobenzaprine 5 mg three times daily and has not tried this for his neck stiffness/pain. I did recommend that he try this and that he use it at night. -Patient gets an upset stomach when taking NSAIDs and prefers not take take medications in this drugclass. I recommended that he use tylenol 650 mg every 6 hours as needed for pain 4. Anxiety -Will start the patient on BuSpar 7.5 mg twice daily. -Patient instructed to follow up in 4 weeks to assess for medication side effects and effectiveness. -Can consider increasing the dose based on the patient's response. Anthony Carpenter APRN, C.N.P., M.S.N. documented in this encounter Plan of Treatment Scheduled Referrals Name Type Priority Associated Order Schedule Diagnoses Physical Medicine and Outpatient Referral Routine Pain S houlder Left Expected: Rehabilitation - Pain Neck 05/24/2019 General consult (Approximate ), (clinic) Expires: 05/24/2022 documented as of this encounter Visit Diagnoses Diagnosis Pain Shoulder Left - Primary Pain Neck Anxiety Paresthesia documented in this encounter Care Teams Signal Apprentice Relationship Specialty Start Date End Date Harvey Crain M.D. PCP - General Internal Medicine 02/28/19 07/31/19 documented as of this encounter
--- OUTSIDE RECORDS SUMMARY | 2022-08-19 06:54 | XMS_ITS | Encounter Summary ---
:1975 Author Organization [facility] Address [address] [place] [address] Care Team Providers Name Role Phone Anthony Carpenter APRN, C.N.P., M.S.N. Primary Care Provider + Reason for Visit Reason Comments Allergic Reaction Encounter Details Date Type Department Care Team Description 08/10/2019 Emergency [facility] Reaction Allergic Initial [address] [facility] (Primary Dx) [place] [address] Social History Tobacco Use Types Packs/Day [...] you attend worship or Patient refused 2020 jewish services? Do [...] by 0 (for_TYLENOL) 500 mg mouth. tablet busPIRone (BUSPAR) 7.5 mg Take 1 tablet (7.5 60 tablet 11 12/29/2019 tablet mg total) by mouth 2 (two) times a day. cyclobenzaprine (FLEXERIL) TAKE 1 TABLET BY 90 tablet 3 02/201912/29/2019 5 mg tablet MOUTH THREE TIMES DAILY NEEDED FOR MUSCLE SPASM dextroamphetamine-amphetam Take 1 tablet (10 60 tablet [...] a day. dextroamphetamine-amphetam Take 1 tablet (10 30 tablet 0 12/28/2019 ine (ADDERALL) 10 mg mg total) by mouth tablet daily. CSA 09/10/16 ibuprofen (ADVIL,MOTRIN) 0 12/30/2018 04/06/2020 800 mg tablet nortriptyline (PAMELOR) 50 TAKE 1 CAPSULE BY 90 capsule 3 12/29/2019 mg capsule MOUTH ONCE DAILY documented as of this encounter Plan of Treatment Not on filedocumented as of this encounter Visit Diagnoses Diagnosis Reaction Allergic Initial - Primary documented in this encounter Care Teams Endbander Relationship Specialty Start Date End Date Bakewell, Anthony J, ELA, C.N.P., PCP - General Family Medicine M.S.N. [address] [phone] documented as of this encounter
--- OUTSIDE RECORDS SUMMARY | 2022-08-19 06:54 | XMS_ITS | Encounter Summary ---
:1975 Author Organization [facility] Address [address] [place] [address] Care Team Providers Name Role Phone Anthony Carpenter APRN, C.N.PPatricia, M.S.N. Primary Care Provider + Reason for Visit Reason Comments Med Refill Encounter Details Date Type Department Care Team Description 08/24/2019 Refill Department of Family Medicine, Anthony Carpenter APRN, Med Refill [facility], in [place], C. N.Harsha, M.S.N. [place] [address] [address] [place] [address] [place] [address] [facility] [phone] Social History Tobacco Use Types Packs/Day Years [...] you attend anabaptism or Patient refused 2020 latter-day services? Do [...] to pay for the very basics like Bug[employer] hat hard 07/17/2021 food, housing, medical care, [...] this encounter Miscellaneous Notes Telephone Encounter - Kera Gleason R.MNixon - 08/25/2019 9:37 AM NUCLEAR CONTROL ROOM OPERATOR RX sent to information desk for patient to orange picker machine operator. EAR CONTROL ROOM OPERATOR Telephone Encounter - Florinda Arndt L.P.NPatricia - 08/24/2019 1:45 PM NUCLEAR CONTROL ROOM OPERATOR Rx pended EAR CONTROL ROOM OPERATOR Telephone Encounter - Desiree Nicole - 08/24/2019 12:26 PM CST Nurse review: Unable to pend medication; CS med Primary Provider: Anthony Carpenter APRN, C.N.P., M.S.N. Name of medication: Adderall Strength: 10 mg tab Frequency: Take 1 tab PO twice daily Quantity: 60 Refills: 0 Last Refill: 06/17/2019 Pharmacy: [facility] EAR CONTROL ROOM OPERATOR documented in this encounter Plan of Treatment Not on filedocumented as of this encounter Visit Diagnoses Not on filedocumented in this encounter Care Teams Model Home Sales Greeter Relationship Specialty Start Date End Date Anthony Carpenter, ELA, C.N.P., PCP - General Family Medicine M.S.N. [address] [phone] documented as of this encounter
--- OUTSIDE RECORDS SUMMARY | 2022-08-19 06:54 | XMS_ITS | Encounter Summary ---
:1975 Author Organization [facility] Address [address] [place] [address] Care Team Providers Name Role Phone Harvey Crain M.D. Primary Care Provider Reason for Referral Outpatient (Routine) - Closed Specialty Diagnoses / Procedures Referred By Contact Refer red To Contact Diagnoses Rotator Cuff Repair Shoulder Status Post Kaden Pineda M.D. [facility] Region Procedures fzc-[id number]-ecwwhhap-elbow arthrocentesis: L subacromial bursa CT ARTHCS ASP/INJ MJR JT WO US CT TRIAMCINOLONE ACETONIDE INJ [address] [place] [address] Referral ID Status Reason Start Date Expiration Date Visits Requ ested Visits Authorized [id number] Closed 05/20/2019 05/19/2020 1 1 Reason for Visit Reason Comments Shoulder Pain Left revision RTC december 2018 - patient states pain is still present located on top of shoulder p lade and pain will generate down arm into hands which will cause numbn ess of some fingers Pain Appointment Request (Routine) - Closed Specialty Diagnoses / Procedures Referred By Contact Refer red To Contact Orthopedic Surgery Referral ID Status Reason Start Date Expiration Date Visits Requ ested Visits Authorized [id number] Closed 03/25/2019 03/24/2020 1 Encounter Details Date Type Department Care Team Description 05/20/2019 Office Visit Department of Kaden Pineda Rotator Cu ff Repair Orthopedic Surgery lexie Roldan M.D. Shoulder Status Post [place], [place] [address] (Primary Dx) [address] [place] [phone] Social History Tobacco Use Types Packs/Day [...] attend latter day or Patient refused 2020 gnosticist services? Do you belong to any clubs [...] slept in a senior living (including now)? 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 - 05/20/2019 8:45 AM CDT HPI: Alon is now 5 months out from a left shoulder arthroscopic revision rotator cuff repair. He has hadmultiple falls and injuries since surgery. He has consistently not followed his work restrictions, which was the same thing that happened after his original rotator cuff repair. He has persistent pain and weakness in left shoulder. He has been to the emergency room multiple times. He has not been in any physical therapy recently. He has trouble sleeping. He also complains of new pain radiating from his neck down into his fingers. He has numbness in the same distribution. PHYSICAL EXAM: He is a healthy-appearing gentleman in no acute distress. Examination of his left shoulder reveals benign skin. Incisions are well healed. He has 100?? of active elevation. He will not let me passivelyelevate him past this. He external rotates 70?? internal rotates to 40??. He is neurovascular intact. ASSESSMENT AND PLAN: Alon is 5 months out from a left shoulder arthroscopic revision rotator cuff repair. He is persistently throughout the recovery from both surgeries not followed his restrictions. I did recommend a cortisone injection today. I really encouraged him again to get back into formal physical therapy. He has primary care appointment next week and I encouraged him to bring up his radicular pain. documented in this encounter Procedure Notes Kaden Pineda M.D. - 05/20/2019 8:45 AM CDTAssociated Order(s): xhf-vtnx-veqszcuq-elbow arthrocentesis: L subacromial bursa Post-Procedure Diagnose(s): Rotator Cuff Repair Shoulder Status Post Shoulder site - L subacromial bursa : injection only Date/Time: 05/20/2019 8:43 AM Performed by: Kaden Pineda M.D. Authorized by: Kaden Pineda M.D. PROCEDURE DETAILS Procedure Location shoulder Shoulder site: L subacromial bursa Site prep: patient was prepped and draped in usual sterile fashion Patient position: seated Procedural approach: posterior Procedure performed: injection only Needle gauge: 21 G Procedural Medication The following medications were administered at the target site(s) Local anesthetic: 8 mL lidocaine 10 mg/mL (1 %) Corticosteroid: 40 mg triamcinolone acetonide 40 mg/mL CONSENT Consent obtained: written UNIVERSAL PROTOCOL [...] procedural pause. PRE-PROCEDURE DETAILS Procedure purpose: therapeutic Indications: Pain Appropriate hand hygiene, gown, cap, mask, protective eyewear, sterile gloves, skin preparation, sterile drape, and strict aseptic technique were utilized as applicable for the procedure: yes Skin preparation: chlorhexidine All relevant documentation and testing were reviewed [...] Name Priority Date/Time Associated Diagnosis Comme nts CT ARTHCS ASP/INJ Routine 05/20/2019 8:45 AM Rotator Cuff Repa ir Results for this MJR JT WO US CDT Shoulder Status Post procedu re are in the results section. documented in this encounter Results CT ARTHCS ASP/INJ MJR JT WO US (05/20/2019 8:45 AM CDT) Narrative Kaden Pineda M.D. - 05/20/2019 8: 45 AM CDT Kaden Pineda M.D. ? 05/20/2019 ??8:44 AM Shoulder site - L subacromial bursa : in jection only Date/Time: 05/20/2019 8:43 AM Performed by: Kaden Pineda M.D. Authorized by: Kaden Pineda M.D. PROCEDURE DETAILS Procedure Location shoulder Shoulder site: L subacromial bursa Site prep: patient was prepped and drape d in usual sterile fashion ?? Patient position: seated Procedural approach: posterior Procedure performed: injection only Needle gauge: 21 G Procedural Medication The following medications were administe red at the target site(s) Local anesthetic: 8 mL lidocaine 10 mg/m L (1 %) Corticosteroid: 40 mg triamcinolone acet onide 40 mg/mL CONSENT Consent obtained: written UNIVERSAL PROTOCOL [...] ral pause. PRE-PROCEDURE DETAILS Procedure purpose: therapeutic Indications: Pain Appropriate hand hygiene, gown, cap, mas k, protective eyewear, sterile gloves, skin preparation, sterile drape, and strict aseptic technique were utilized as applicable for the procedure : yes ?? Skin preparation: chlorhexidine All relevant documentation and testing w ere [...] ice area as need ed for comfort Kaden Pineda M.D. PROCEDURE/MINOR SURGICAL ORD ERABLES documented in this encounter Visit Diagnoses Diagnosis Rotator Cuff Repair Shoulder Status Post - Primary documented in this encounter Administered Medications Inactive Administered Medications - up to 3 most recent administrations Medication Order MAR Action Action Date Dose Rate Site lidocaine 10 mg/mL (1 %) injection 8 Given 05/20/2019 8:43 AM CD T 8 mL mL (XYLOCAINE) 8 mL, infiltration, One-Time Injection, Starting on Thu05/20/19 at 0843, For 1 dose triamcinolone acetonide injection 40 mg Given 05/20/2019 8:43 AM CDT 40 mg (KENALOG-40) 40 mg, intra-articular, One-Time Injection, Starting on Thu05/20/19 at 0843, For 1 dose documented in this encounter Care Teams Menhaden Vessel Pilot Relationship Specialty Start Date End Date Harvey Crain M.D. PCP - General Internal Medicine 02/28/19 07/31/19 documented as of this encounter
--- OUTSIDE RECORDS SUMMARY | 2022-08-19 06:54 | XMS_ITS | Encounter Summary ---
:1975 Author Organization [facility] Address [address] [place] [address] Care Team Providers Name Role Phone Jayden Anthony Zuñiga APRN, C.N.P., M.S.N. Primary Care Provider + Reason for Referral Outpatient (Routine) - Closed Specialty Diagnoses / Procedures Referred By Contact Refer red To Contact Diagnoses Preoperative Exam Maya Galan [facility] Region Procedures ECG 12 Lead P.A.-C. [address] [place] [phone] Referral ID Status Reason Start Date Expiration Date Visits Requ ested Visits Authorized [id number] Closed 08/03/2019 08/02/2020 1 1 Reason for Visit Outpatient (Routine) - Closed Specialty Diagnoses / Procedures Referred By Contact Refer red To Contact Diagnoses Preoperative Exam Maya Galan [facility] Region Procedures ECG 12 Lead P.A.-C. [address] [place] [phone] Referral ID Status Reason Start Date Expiration Date Visits Requ ested Visits Authorized [id number] Closed 08/03/2019 08/02/2020 1 1 Encounter Details Date Type Department Care Team Description 08/03/2019 Hospital Encounter Department of Sebas Galan Exam Laboratory Medicine lexie Victor P.A.-C. [place] [address] [place] [phone] Social History Tobacco Use Types Packs/Day [...] or relatives? How often do you attend sikhism or Patient refused 2020 orthodoxy services? Do you belong to any clubs or No 07/17/2021 organizations such as sikhism groups, unions, fraternal or athletic groups, or [...] Name Priority Date/Time Associated Diagnosis Comme nts ECG Routine 08/03/2019 10:45 AM Preoperative Exam Res ults for this CDT procedure are i n the results section . documented in this encounter Results ECG 12 Lead (08/03/2019 10:45 AM CDT) P athologist Signature Ventricular Rate 77 BPM MUSE ECG/Min [place] Interval 148 ms MUSE QRSD Interval 96 ms MUSE QT Interval 374 ms MUSE QTC Interval 423 ms MUSE P [place] 49 degrees MUSE R [place] 68 degrees MUSE T Wave [place] 57 degrees MUSE Specimen Anatomical Collection Method [...] this encounter Visit Diagnoses Diagnosis Preoperative Exam documented in this encounter Care Teams Tool Polisher Relationship Specialty Start Date End Date Anthony Carpenter, ELA, C.N.P., PCP - General Family Medicine M.S.N. [address] [place] [phone] documented as of this encounter
--- OUTSIDE RECORDS SUMMARY | 2022-08-19 06:54 | XMS_ITS | Encounter Summary ---
:1975 Author Organization [facility] Address [address] [place] [address] Care Team Providers Name Role Phone Harvey Crain M.D. Primary Care Provider Reason for Visit Reason Comments Establish Care Med Management Pt is requesting an increase in his medication Encounter Details Date Type Department Care Team Description 04/12/2019 Office Visit Department of Family Anthony Carpenter Attent ion Deficit With Hyperactivity Disorder (Primary Dx); Medicine, Primitivo Zuñiga APRN, Pain Jolie conte [facility], in Primitivo, CPatriciaNCristine, M.S .N. [place] [address] [place] [phone] Social History Tobacco Use Types Packs/Day Years [...] you attend christian or Patient refused 2020 temple services? Do [...] or slept in a long-term (including now)? Sex Assigned at Date Recorded Not on file documented as of this encounter Last Filed Vital Signs Vital Sign Reading Time Taken Comments Blood Pressure 110/80 04/12/2019 8:55 AM CDT Pulse 87 04/12/2019 8:55 AM CDT Temperature 36 ??C (96.8 ??F) 04/12/2019 8:55 AM CDT Respiratory Rate - - Oxygen Saturation 100% 04/12/2019 8:55 AM CDT Inhaled Oxygen Concentration - - Weight 67 kg (147 lb 11.3 oz) 04/12/2019 8:55 AM CDT Height - - Body Mass Index 24.46 2018 9:35 AM CHANNEL SALES DIRECTOR documented in this encounter Progress Notes Anthony Carpenter, ELA, C.N.P., M.S.N. - 04/12/2019 9:00 AM CDT SUBJECTIVE CHIEF COMPLAINT / REASON FOR VISIT Alon Jaimes is a 43 y.o. male who presents for evaluation of Establish Care and Med Management (Pt is requesting an increase in his medication). HISTORY OF PRESENT ILLNESS Alon Jaimes is a 43 y.o. male who is here today for ADHD management. Patient reports that he was previously on Adderall 5 mg twice daily. He has been taking 10 mg once daily however because the 5 mg has not been as effective for him recently. This has been more effective for him and is wondering if he could go up to 10 mg twice daily. He does see a psychologist Kanu at [facility]. They are trying to set him up with a tele psychiatrist who he has not seen yet. Patient reports that he is eating well and does not complain of weight loss. He has not been sleeping well but that is because of shoulder pain. He also has complaints of left shoulder pain and is currently working with Dr. Pineda for this. He is 4 months out from left shoulder arthroscopic revision rotator cuff repar. He did have several falls after surgery and was doing well until early March when he developed pain in his left arm and not being able to lift his left arm above his shoulder. Dr. Pineda recommended additional physical therapy and he is currently still doing physical therapy. He also complains that at night his neck, shoulder, and arm tighten up causing him to sleep poorly. REVIEW OF SYSTEMS General: No unintentional weight [...] mg by mouth., Disp: , Rfl: ??? ALLERGY RELIEF,DIPHENHYDRAMIN, 25 mg capsule, , Disp: , Rfl: 0 ??? [START ON 04/13/2019] dextroamphetamine-amphetamine (ADDERALL) 10 mg tablet, Take 1 tablet (10 mg total) by mouth daily. CSA 09/10/16, Disp: 30 tablet, Rfl: 0 ??? diazePAM (VALIUM) 5 mg tablet, Take 5 mg by mouth., Disp: , Rfl: ??? ibuprofen (ADVIL,MOTRIN) 800 mg tablet, , Disp: , Rfl: ??? nortriptyline (PAMELOR) 50 mg capsule, TAKE 1 CAPSULE BY MOUTH ONCE DAILY, Disp: 90 capsule, Rfl: 3 ??? cyclobenzaprine (FLEXERIL) 5 mg tablet, Take 1 tablet (5 mg total) by mouth 3 (three) times a day as needed for muscle spasms., Disp: 30 tablet, Rfl: 0 ??? dextroamphetamine-amphetamine (ADDERALL) 10 mg tablet, Take 1 tablet (10 mg total) by mouth 2 (two) times a day., Disp: 60 tablet, Rfl: 0 ??? [START ON 05/12/2019] dextroamphetamine-amphetamine (ADDERALL) 10 mg tablet, Take 1 tablet (10 mg total) by mouth 2 (two) times a day., Disp: 60 tablet, Rfl: 0 ??? [START ON 06/11/2019] dextroamphetamine-amphetamine (ADDERALL) 10 mg tablet, Take 1 [...] ??? Tramadol Rash OBJECTIVE VITAL SIGNS BP 110/80 (BP Location: Right arm, Patient Position: Sitting, Cuff Size: Large) Pulse 87 Temp 36??C (Temporal) Wt 67 kg SpO2 100% BMI 24.46 kg/m?? PHYSICAL EXAMINATION General: Patient is alert [...] and depth of respiration. Lungs are clear. Shoulders: Left- He can actively abduct to about 100?? today. Passively can go up to 140??. He has tenderness diffusely around the shoulder. He is neurovascular intact distally. Mental status: Affect is normal. Speech is clear and coherent. Thought process is appropriate. ASSESSMENT / PLAN DIAGNOSIS #1 Attention Deficit With Hyperactivity Disorder The patient is on a low dose of Adderall 10 mg daily. Will increase the 10 mg twice daily and the patient was given another 3 months worth of paper prescriptions. These should be kept in a safe location because prescriptions will not be replaced if they are lost or stolen per our policy. I instructed him to follow up with a psychiatrist for further management and recommendations. I will not make any more adjustments to his Adderall until he sees a psychiatrist. He does have 1 refill left for his Adderall 10 mg daily that he was feeling a [facility] due to [facility] being out of Adderall. I did call [facility] and they do in fact have an Adderall prescription for 10 mg daily that the patient could fruit or nut picker April 13. I asked them to cancel this prescription which they will do. #2 Pain Shoulder Left Patient will continue to follow with Dr. Pineda and his recommendations. He will continue physical therapy, restrictions as stated by physical therapy and Dr. Pineda, ibuprofen, Tylenol, ice, andheat. I will add cyclobenzaprine 5 mg 3 times daily as needed as the patient was having significant muscle tightness around his neck into his shoulder. I counseled him on the side effects instructed him to try the 1st dose prior to bed, not to use while operating heavy equipment, and not use while driving. Anthony Carpenter APRN, C.N.P., M.S.N. documented in this encounter Plan of Treatment Not on filedocumented as of this encounter Visit Diagnoses Diagnosis Attention Deficit With Hyperactivity Dis order - Primary Pain Shoulder Left documented in this encounter Care Teams Keyseater Operator Relationship Specialty Start Date End Date Harvey Crain M.D. PCP - General Internal Medicine 02/28/19 07/31/19 documented as of this encounter
--- OUTSIDE RECORDS SUMMARY | 2022-08-19 06:54 | XMS_ITS | Encounter Summary ---
:1975 Author Organization [facility] Address [address] [place] [address] Care Team Providers Name Role Phone Harvey Crain M.D. Primary Care Provider Reason for Visit Reason Onset Date Comments MRI results 07/22/2019 Encounter Details Date Type Department Care Team Description 07/22/2019 Clinical Communication Department of Kanu Iyer, MR I results Orthopedic Surgery in [place], [place] [address] [phone] Social History Tobacco Use Types Packs/Day Years [...] you attend islam or Patient refused 2020 church services? Do [...] highest level of school Associate degree: jacki jartetjolene, 06/29/2019 you have completed or the highest technical, or vocational p [facility] degree you have received? Sex Assigned at Date Recorded Not on file documented as of this encounter Miscellaneous Notes Telephone Encounter - Makayla Chadwick L.P.N. - 07/25/2019 8:33 AM CDT Patient called and notified of provider response. Appointment given for 07/27/19. Telephone Encounter - Kanu Iyer M.D. - 07/25/2019 8:20 AM CDT Should see me back to discuss results Telephone Encounter - Florinda Flynn CPatriciaMNixon - 07/22/2019 2:14 PM CDT Patient asking for a call with MRI results of the left shoulder done on 07/20/19. If okay to give results over phone please advise results. Or advise if patient is needing another visit Telephone Encounter - Westley Phipps - 07/22/2019 12:46 PM CDT Reason for Communication: pt asking for results from MRI from left shoulder. Current Can Nursing/Provider leave a detailed message: yes Did the patient refuse triage through Nurse line? (for symptom based concerns): na Action Needed: please call Name of Medication (if relevant): documented in this encounter Plan of Treatment Not on filedocumented as of this encounter Visit Diagnoses Not on filedocumented in this encounter Care Teams Community Services Manager Relationship Specialty Start Date End Date Harvey Crain M.D. PCP - General Internal Medicine 02/28/19 07/31/19 documented as of this encounter
--- OUTSIDE RECORDS SUMMARY | 2022-08-19 06:54 | XMS_ITS | Encounter Summary ---
:1975 Author Organization [facility] Address [address] [place] [address] Care Team Providers Name Role Phone Harvey Crain M.D. Primary Care Provider Encounter Details Date Type Department Care Team Description 06/23/2019 Nurse Triage Department of [facility] Perlita Guzman R.N. Medicine, [facility], in [address] [place] [address] [place] [address] [place] [address] [phone] Social History Tobacco Use Types Packs/Day Years [...] you attend rastafari or Patient refused 2020 quaker services? Do [...] slept in a nursing home (including now)? Sex Assigned at Date Recorded Not on file documented as of this encounter Plan of Treatment Not on filedocumented as of this encounter Visit Diagnoses Not on filedocumented in this encounter Care Teams Cellophane Worker Relationship Specialty Start Date End Date Harvey Crain M.D. PCP - General Internal Medicine 02/28/19 07/31/19 documented as of this encounter
--- OUTSIDE RECORDS SUMMARY | 2022-08-19 06:54 | XMS_ITS | Encounter Summary ---
:1975 Author Organization [facility] Address [address] [place] [address] Care Team Providers Name Role Phone Harvey Crain M.D. Primary Care Provider Reason for Visit Reason Comments Shoulder Pain Encounter Details Date Type Department Care Team Description 05/14/2019 Emergency [facility] Pain Shoulder Left (Primary [address] [place]) [place] [address] [facility] [phone] Social History Tobacco Use Types Packs/Day Years [...] you attend shinto or Patient refused 2020 catholic services? Do [...] or slept in a retirement (including now)? Sex Assigned at Date Recorded Not on file documented as of this encounter Medications at Time of Discharge Medication Sig Dispensed Refills Start Date End Date acetaminophen Take 1,000 mg by 0 (for_TYLENOL) 500 mg mouth. tablet ALLERGY 0 01/05/2019 08/03/2019 RELIEF,DIPHENHYDRAMIN, 25 mg capsule cyclobenzaprine (FLEXERIL) TAKE 1 TABLET BY 90 [...] Primary documented in this encounter Care Teams Grade Checker Relationship Specialty Start Date End Date Harvey Crain M.D. PCP - General Internal Medicine 02/28/19 07/31/19 documented as of this encounter
--- OUTSIDE RECORDS SUMMARY | 2022-08-19 06:54 | XMS_ITS | Encounter Summary ---
:1975 Author Organization [facility] Address [address] [place] [address] Care Team Providers Name Role Phone Anthony Carpenter APRN, C.N.P., M.S.N. Primary Care Provider + Encounter Details Date Type Department Care Team Description 08/25/2019 Orders Only Department of Family Anthony Carpenter APR N, Medicine, [facility], C.N.P ., M.S.N. in [facility] [address] [place] [phone] (Wo rk) Social History Tobacco Use Types [...] you attend episcopal or Patient refused 2020 orthodoxy services? Do [...] to pay for the very basics like [employer] hat hard 07/17/2021 food, housing, medical care, [...] on filedocumented in this encounter Care Teams Upper Marker Relationship Specialty Start Date End Date Anthony Carpenter, ELA, C.N.P., PCP - General Family Medicine M.S.N. [address] [phone] documented as of this encounter
[2022-08-19 06:55] LABS: Chloride* 103 mmol/L (96-114); Sodium* 138 mmol/L (135-149)
--- OUTSIDE RECORDS SUMMARY | 2022-08-19 06:55 | XMS_ITS | Encounter Summary ---
:1975 Author Organization [facility] Address [address] [place] [address] Care Team Providers Name Role Phone Markos Claire APRN, C.N.P. Primary Care Provider [phone] Reason for Visit Reason Onset Date Comments needs refill on pain meds 01/19/2019 Encounter Details Date Type Department Care Team Description 01/19/2019 Clinical Communication Department of patel Pineda s refill on Orthopedic Surgery Kaden Roldan M.D. pain meds in [place], [address] [address] [place] [phone] Social History Tobacco Use [...] to pay for the very basics like [employer] hat hard 07/17/2021 food, housing, medical care, [...] this encounter Miscellaneous Notes Telephone Encounter - Isa Jerez L.P.N. - 01/19/2019 2:46 PM CDT Called pt and notified him that Derrick Edmondson refilled Percocet, pt will come and roller picker written rxat info desk Telephone Encounter - Isa Jerez L.P.N. - 01/19/2019 2:10 PM CDT Pt had a left shoulder arthroscopy done on 12/30/[address] Pineda, last refill of Percocet done on 01/10/19 for # 30 tablets. Please review refill request Telephone Encounter - Zully Noyola - 01/19/2019 2:03 PM CDT Reason for Communication: patient called. He had left shoulder surgery on 12/30/[address] Pineda.He states that [facility] sent a refill request yesterday and again today. He is out of his pain meds so would like this addressed as soon as possible Current Can Nursing/Provider leave a detailed message: YES Did the patient refuse triage through Nurse line? (for symptom based concerns): Action Needed: wants call back / refill of pain meds Name of Medication (if relevant): Oxycodone / Acetaminophen 5 - 325 mg tablets documented in this encounter Plan of Treatment Not on filedocumented as of this encounter Visit Diagnoses Not on filedocumented in this encounter Care Teams Field Training Agent Relationship Specialty Start Date End Date Markos Claire APRN, C.N.P. PCP - General 03/26/17 02/27/[address] [phone] documented as of this encounter
--- OUTSIDE RECORDS SUMMARY | 2022-08-19 06:55 | XMS_ITS | Encounter Summary ---
:1975 Author Organization [facility] Address [address] [place] [address] Care Team Providers Name Role Phone Markos Claire APRN, C.N.P. Primary Care Provider [phone] Encounter Details Date Type Department Care Team Description 01/10/2019 Clinical Communication Department of [facility] Vernon Claire am, Medicine, [place] ELA, C.N.P. [facility], [facility] [address] [place], [place] [address] [address] [place] [address] [facility] [phone] Social History Tobacco Use Types Packs/Day Years [...] you attend methodist or Patient refused 2020 islam services? Do [...] to pay for the very basics like [employer] hat hard 07/17/2021 food, housing, medical [...] or slept in a fpc (including now)? Sex Assigned at Date Recorded Not on file documented as of this encounter Miscellaneous Notes Telephone Encounter - Therese Guillaume CPatriciaMPatriciaAPatricia - 01/10/2019 2:47 PM CDT Patient informed that rx is ready for picker / packer at info desk. Patient states he will be picking up therx Telephone Encounter - Isa Jerez L.PPatriciaNPatricia - 01/10/2019 1:14 PM CDT Pt had a left shoulder arthroscopy done on 12/30/[address] Patton, requesting refill of Percocet 5/325 mg Telephone Encounter - Evette Soni - 01/10/2019 1:05 PM CDT Reason for Communication: pt called he would like a refill on RX percocet 5mg. Pharmacy is [facility] in [place]. He had surgery on his left shoulder with dr. patton on 12/30. Current Can Nursing/Provider leave a detailed message: yes Did the patient refuse triage through Nurse line? (for symptom based concerns):NA Action Needed: Please call back Name of Medication (if relevant): percocet 5mg. documented in this encounter Plan of Treatment Not on filedocumented as of this encounter Visit Diagnoses Not on filedocumented in this encounter Care Teams Voucher Clerk Relationship Specialty Start Date End Date Markos Claire APRN, C.N.P. PCP - General 03/26/17 02/27/[address] [phone] documented as of this encounter
--- OUTSIDE RECORDS SUMMARY | 2022-08-19 06:55 | XMS_ITS | Encounter Summary ---
:1975 Author Organization [facility] Address [address] [place] [address] Care Team Providers Name Role Phone Markos Claire APRN, C.N.P. Primary Care Provider [phone] Encounter Details Date Type Department Care Team Description 12/01/2018 Clinical Communication Department of Internal Markos Claire, Medicine in [facility] ELA, C.N. P. [place] [facility] [address] [place] [phone] Social History Tobacco Use Types Packs/Day Years [...] you attend hinduism or Patient refused 2020 yarsani services? Do [...] encounter Miscellaneous Notes Telephone Encounter - Marilyn Lizama L.PPatriciaN. - 12/01/2018 11:53 AM BODY AND FENDER WORKER VM left notifying pt it will be at the info desk. AND FENDER WORKER Telephone Encounter - Jacqueline Stahl - 12/01/2018 11:45 AM CST Reason for Communication: Refill question Current Phone Number: [phone] Can Nursing/Provider leave a detailed message: Yes Did the patient refuse triage through Nurse line? (for symptom based concerns)N/A Action Needed: Patient is asking if Markos Alethea would please fill his prescription for dextroamphetamine-amphetamine (ADDERALL) 5 mg tablets today, he will take his last two tonight and would like to rock picker the script before closing. Please advise Name of Medication (if relevant): dextroamphetamine-amphetamine (ADDERALL) 5 mg tablet AND FENDER WORKER documented in this encounter Plan of Treatment Not on filedocumented as of this encounter Visit Diagnoses Not on filedocumented in this encounter Care Teams Folder And Notcher Relationship Specialty Start Date End Date Markos Claire, TOOL CRIB CLERK, C.N.P. PCP - General 03/26/17 02/27/19 [address], [place] [address] documented as of this encounter
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
--- OUTSIDE RECORDS SUMMARY | 2022-08-19 06:55 | XMS_ITS | Encounter Summary ---
:1975 Author Organization [facility] Address [address] [place] [address] Care Team Providers Name Role Phone Harvey Crain M.D. Primary Care Provider Reason for Visit Reason Comments Establish Care Post-op Problem Reports 2nd left shoulder hobson rgery- Ongoing intense pain and unable to sleep at night due to pain Med Management Medication review- Pt is see violet increase in Adderall stating that the 5mg is not helping any m ore. Outpatient (Routine) - Closed Specialty Diagnoses / Procedures Referred By Contact Refer red To Contact Community Internal Markos Claire, [facility] Medicine INSPECTOR BRAKE LINING, C.N.P. [address] [place] [address] Referral ID Status Reason Start Date Expiration Date Visits Requ ested Visits Authorized [id number] Closed 01/20/2018 07/19/2018 1 1 Encounter Details Date Type Department Care Team Description 03/16/2019 Office Visit Department of Harvey Crain M. D. Pain Shoulder Left (Primary Dx); Internal Medicine in [address] Attention Deficit With Hyperactivity Dis order [place], [place] ALBA Brenner [address] [address] [phone] [employer]OD[employer] [place]WELL (Work) [address] [phone] Social History Tobacco Use Types Packs/Day Years [...] you attend confucianist or Patient refused 2020 jewish services? Do [...] or slept in a intermediate (including now)? Sex Assigned at Date Recorded Not on file documented as of this encounter Last Filed Vital Signs Vital Sign Reading Time Taken Comments Blood Pressure 124/84 03/16/2019 9:19 AM CDT Pulse 94 03/16/2019 9:19 AM CDT Temperature 36.6 ??C (97.9 ??F) 03/16/2019 9:19 AM CDT Respiratory Rate - - Oxygen Saturation 98% 03/16/2019 9:19 AM CDT Inhaled Oxygen Concentration - - Weight 68.1 kg (150 lb 2.1 oz) 03/16/2019 9:19 AM CDT Height - - Body Mass Index 24.86 2018 9:35 AM TOBACCO SAMPLE PULLER documented in this encounter Progress Notes Harvey Crain M.D. - 03/16/2019 9:30 AM CDT INTERNAL MEDICINE CLINIC PROGRESS NOTE SUBJECTIVE DATE OF EXAM: 03/16/2019 LOCATION OF EXAM: [facility] CHIEF COMPLAINT/REASON FOR VISIT Chief Complaint Patient presents with ??? Establish Care ??? Post-op Problem Reports 2nd left shoulder surgery- Ongoing intense pain and unable to sleep at night due to pain ??? Med Management Medication review- Pt is seeking increase in Adderall stating that the 5mg is not helping any more. HISTORY OF PRESENT ILLNESS Mr. Jaimes presents today for evaluation of left shoulder pain and ADHD. He is status post left rotator cuff repair in December 2018. This was his 2nd repair because his initial repair did not last because he did not follow his restrictions. Today he reports severe pain in hisleft shoulder especially at nighttime keeping him from being able to sleep. Is taking ibuprofen or Aleve in high doses. Tylenol provides little relief. He has pain with most movements of the arms especially any overhead activity. He reports he is following all of his restrictions and has been participating in physical therapy. He received a prescription for [place] January 19, 2019 but this is the most recent narcotic prescription is received. He was in the emergency department February 09 due to his shoulder pain, and saw his surgeon on February 11. Told his surgeon he was doing fairly well. Has ADHD and has been on low dose adderall for around a year. He takes 5 mg before work, and 5 mg when he gest done with work at 11pm. He works 3-11 usually. Having trouble sleeping. He also takes nortriptyline (he is not sure why) in the morning. He thinks his adderall dose needs to be higher becausehe still has trouble concentrating. REVIEW OF SYSTEMS General: No fevers, chills, sweats, weight loss, weight gain. Cardiovascular: No chest pain, dyspnea on exertion, palpitations. Pulmonary: No cough, wheezing, sputum production. Gastrointestinal: No nausea/ vomiting/ diarrhea, melena, hematochezia. Neurologic: No headaches, vision changes, hearing changes, syncope, weakness. I have reviewed the patient's past medical history, active problems, medications, allergies, past social and family history. PHYSICAL EXAMINATION VITAL SIGNS BP 124/84 (BP Location: Right arm, Patient Position: Sitting, Cuff Size: Regular) Pulse 94 Temp 36.6 ??C (Temporal) Wt 68.1 kg SpO2 98% BMI 24.86 kg/m?? General: Well-nourished, well-developed 43 y.o. in no apparent distress. Awake, alert, age appropriate. Eyes: PERRLA ENT: Oral mucosa pink and moist Cardiovascular: Regular rate and rhythm. S1, S2 without murmurs. No rubs or gallops. No Lower extremity edema Pulmonary: Clear to auscultation bilaterally without crackles, wheezes, rhonchi. Gastrointestinal: Rounded in contour, normal bowel sounds, no pain to palpation, no masses or organomegaly, no rebound or guarding. Neurologic: Alert and oriented x 3. CN II-XII grossly intact. Mental: anxious affect MSK: Left shoulder pain with flexion above the head. Incisions well healed. ASSESSMENT / PLAN 1. Pain Shoulder Left Continue PT, ibuprofen, tylenol, ice. Recommended changing timing of nortryrtiline to bedtime because could help with pain and sleep. Follow up as scheduled with Ortho later this month. Openly discussed that opiate pain medications would not be beneficial to him. - Pain Medicine - General consult (clinic); Future 2. Attention Deficit With Hyperactivity Disorder Discussed timing of adderall dosing, since what he is doing now is counterproductive. Will increase morning (or pre-work) dose of Adderall to 10 mg and eliminate the later dose since he was taking thisbefore bed, which only acts to prevent him from sleeping. Harvey Crain M.D. documented in this encounter Plan of Treatment Not on filedocumented as of this encounter Visit Diagnoses Diagnosis Pain Shoulder Left - Primary Attention Deficit With Hyperactivity Dis order documented in this encounter Care Teams Supervisor Facepiece Line Relationship Specialty Start Date End Date Harvey Crain M.D. PCP - General Internal Medicine 02/28/19 07/31/19 documented as of this encounter
--- OUTSIDE RECORDS SUMMARY | 2022-08-19 06:55 | XMS_ITS | Encounter Summary ---
:1975 Author Organization [facility] Address [address] [place] [address] Care Team Providers Name Role Phone Harvey Crain M.D. Primary Care Provider Encounter Details Date Type Department Care Team Description 03/24/2019 Clinical Communication Department of [facility] Shiloh Montenegro, Medicine in [facility] [phone] [place] [address] Social History Tobacco Use Types Packs/Day Years [...] or relatives? How often do you attend evangelical or Patient refused 2020 scientology services? Do you belong to any clubs or No 07/17/2021 organizations such as evangelical groups, unions, fraternal or athletic groups, or [...] or slept in a detention (including now)? Sex Assigned at Date Recorded Not on file documented as of this encounter Miscellaneous Notes Telephone Encounter - Nusrat Montenegro R.N. - 03/24/2019 11:15 AM CDT LMTCB regarding referral. documented in this encounter Plan of Treatment Not on filedocumented as of this encounter Visit Diagnoses Not on filedocumented in this encounter Care Teams Bead Flipper Relationship Specialty Start Date End Date Harvey Crain M.D. PCP - General Internal Medicine 02/28/19 07/31/19 documented as of this encounter
--- OUTSIDE RECORDS SUMMARY | 2022-08-19 06:55 | XMS_ITS | Encounter Summary ---
:1975 Author Organization [facility] Address [address] [place] [address] Care Team Providers Name Role Phone Harvey Crain M.D. Primary Care Provider Reason for Visit Reason Comments Shoulder Pain Encounter Details Date Type Department Care Team Description 04/08/2019 - Emergency [facility] Pain Shoulder Left 04/09/[address] (Primary Dx) [place] [address] [facility] [phone] Social History Tobacco Use Types Packs/Day Years [...] you attend religion or Patient refused 2020 islam services? Do [...] or slept in a prison (including now)? Sex Assigned at Date Recorded Not on file documented as of this encounter Medications at Time of Discharge Medication Sig Dispensed Refills Start Date End Date acetaminophen Take 1,000 mg by 0 (for_TYLENOL) 500 mg mouth. tablet ALLERGY 0 01/05/2019 08/03/2019 RELIEF,DIPHENHYDRAMIN, 25 mg capsule dextroamphetamine-ampheta Take 1 tablet (10 30 tablet 0 12/201807/22/2019 mine (ADDERALL) 10 mg mg total) by mouth tablet daily. CSA 09/10/16 diazePAM (VALIUM) 5 mg Take 5 mg by mouth. 0 03/1308/03/2019 tablet ibuprofen (ADVIL,MOTRIN) 0 12/30/2018 04/06/2020 800 mg tablet nortriptyline (PAMELOR) TAKE 1 CAPSULE BY 90 capsule 3 03/1612/29/2019 50 mg capsule MOUTH ONCE DAILY documented as of this encounter Plan of Treatment Not on filedocumented as of this encounter Visit Diagnoses Diagnosis Pain Shoulder Left - Primary documented in this encounter Care Teams Finishing Range Supervisor Relationship Specialty Start Date End Date Harvey Crain M.D. PCP - General Internal Medicine 02/28/19 07/31/19 documented as of this encounter
--- OUTSIDE RECORDS SUMMARY | 2022-08-19 06:55 | XMS_ITS | Encounter Summary ---
:1975 Author Organization [facility] Address [address] [place] [address] Care Team Providers Name Role Phone Markos Claire APRN, C.N.P. Primary Care Provider [phone] Reason for Visit Reason Comments Medication Reaction Encounter Details Date Type Department Care Team Description 01/04/2019 - Emergency [facility] Reaction Allergic Initial (P rimary Dx); 01/05/2019 [address] [facility] [place] [address] Social History Tobacco Use Types Packs/Day [...] you attend nondenominational or Patient refused 2020 episcopalian services? Do [...] or slept in a longterm (including now)? Sex Assigned at Date Recorded Not on file documented as of this encounter Medications at Time of Discharge Medication Sig Dispensed Refills Start Date End Date acetaminophen Take 1,000 mg by 0 (for_TYLENOL) 500 mg mouth. tablet ALLERGY 0 01/05/2019 08/03/2019 RELIEF,DIPHENHYDRAMIN, 25 mg capsule dextroamphetamine-ampheta Take 1 tablet (5 mg 60 tablet 0 0 12/24/2018 02/02/2019 mine (ADDERALL) 5 mg total) by mouth 2 tablet (two) times a day. CSA 09/10/16 ibuprofen (ADVIL,MOTRIN) 0 12/30/2018 04/06/2020 800 mg tablet nortriptyline (PAMELOR) TAKE ONE CAPSULE BY 90 capsule 3 03/15/2019 50 mg capsule MOUTH ONCE DAILY documented as of this encounter Plan of Treatment Not on filedocumented as of this encounter Procedures Procedure Name Priority Date/Time Associated Comments Diagnosis DX SHOULDER LEFT RAD - Semiurgent 01/04/2019 8:05 Pain Shoulder Res ults for this 2+ VIEWS (Fast; most ED PM CDT Left procedure are in patients; some the results inpatients) section. documented in this encounter Results DX Shoulder Left 2+ Views (01/04/2019 8:05 PM CDT) Anatomical Region Laterality Modality Upper Extremity, Shoulder, Musculoskeletal RST LOS, Left Digital Radiography Musculoskeletal ARZ LOS, Muskuloskeletal FLA LOS Specimen (Source) Anatomical Collection Method Collection Time Re ceived Time Location / / Volume Laterality 01/05/2019 7:43 AM CDT Impressions 01/05/2019 7:45 AM CDT IMPRESSION: 1. No acute findings. Narrative 01/05/2019 7:45 AM CDT EXAM: DX SHOULDER LEFT 2+ VIEWS COMPARISON: None FINDINGS: Preliminary report generated b y virtual radiology. Mild/moderately prominent degenerative changes of the left glenohumeral and acromioclavicular joint spaces. Postop changes with metallic staple lucero ce projected over the proximal left humeral diaphysis. No appreciable acute osseous injury of t he left shoulder. If pain persists consider follow-up imaging. Procedure Note Noah Mcdonald M.D. - 01/05/2019Forma tting of this note might be different from the original. EXAM: DX SHOULDER LEFT 2+ VIEWS COMPARISON: None FINDINGS: Preliminary report generated b y virtual radiology. Mild/moderately prominent degenerative changes of the left glenohumeral and acromioclavicular joint spaces. Postop changes with metallic staple lucero ce projected over the proximal left humeral diaphysis. No appreciable acute osseous injury of t he left shoulder. If pain persists consider follow-up imaging. IMPRESSION: 1. No acute findings. Haylee Rosa APRN C.N.P., R.N. IMG DIAGNOSTIC IMAGING PROCEDURES documented in this encounter Visit Diagnoses Diagnosis Reaction Allergic Initial - Primary Pain Shoulder Left documented in this encounter Care Teams Transformer Molder Relationship Specialty Start Date End Date Markos Claire APRN, C.N.P. PCP - General 03/26/17 02/27/[address] [address] documented as of this encounter
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
--- OUTSIDE RECORDS SUMMARY | 2022-08-19 06:55 | XMS_ITS | Encounter Summary ---
:1975 Author Organization [facility] Address [address] [place] [address] Care Team Providers Name Role Phone Markos Claire APRN, C.N.P. Primary Care Provider [phone] Encounter Details Date Type Department Care Team Description 11/09/2018 Clinical Communication Department of Internal Markos Claire, Medicine in [facility] ELA, C.N. P. [place] [facility] [address] [place] [phone] Social History Tobacco Use Types Packs/Day Years [...] you attend samaritan or Patient refused 2020 samaritan services? Do [...] or slept in a half-way (including now)? Sex Assigned at Date Recorded Not on file documented as of this encounter Miscellaneous Notes Telephone Encounter - Perlita Blancas APRN, C.N.Dulce McleodNPatriciaPPatricia, M.S.N. - 11/10/2018 3:[address] not needed at this time. Chest xray in a few weeks as ordered, further workup based on those results. Electronically signed by Perlita Blancas APRN, C.NCristine, Felipe.N.PPatricia, M.S.N. at 11/10/2018 3:46 PM DEAN OF STUDENTS Telephone Encounter - Marilyn Lizama L.P.N. - 11/09/2018 2:15 PM DEAN OF STUDENTS Not sure what CT they are referring to as there is not one ordered and the one mentioned in Markos Claire's message was not going to be ordered till after the chest xray is completed in 2-3 weeks. Pleaseadvise, thanks! OF STUDENTS Telephone Encounter - Vincent Chadwick - 11/09/2018 1:10 PM CST Patient has CT order in queue. Please fill out this CT questionnaire and fax with paper order to [phone]. It is required for all CTs (with or without contrast). We will call patient as soon as this is received. Thank you. OF STUDENTS documented in this encounter Plan of Treatment Not on filedocumented as of this encounter Visit Diagnoses Not on filedocumented in this encounter Care Teams Art Department Head Relationship Specialty Start Date End Date Markos Claire APRN, C.N.P. PCP - General 03/26/17 02/27/[address] [phone] documented as of this encounter
--- OUTSIDE RECORDS SUMMARY | 2022-08-19 06:55 | XMS_ITS | Encounter Summary ---
:1975 Author Organization [facility] Address [address] [place] [address] Care Team Providers Name Role Phone Harvey Crain M.D. Primary Care Provider Reason for Visit Reason Comments Med Refill Encounter Details Date Type Department Care Team Description 03/02/2019 Refill Department of [facility] Harvey Crain M.D. Med Refill Medicine, [facility], in [address] [place] [address] [address] [place] [address] [facility] [phone] Social History Tobacco Use Types Packs/Day Years [...] you attend yazidi or Patient refused 2020 rastafari services? Do [...] slept in a group home (including now)? Sex Assigned at Date Recorded Not on file documented as of this encounter Miscellaneous Notes Telephone Encounter - Tami Sullivan L.P.N. - 03/02/2019 4:08 PM CDT Script taken to the information desk where they will contact pt for roller picker. Telephone Encounter - Harvey Crain M.D. - 03/02/2019 4:02 PM CDT Rx signed. Patient has appointment with me on 03/16. Telephone Encounter - Poornima Rodriguez, C.M.A. - 03/02/2019 12:40 PM CDT CSA [id number] Telephone Encounter - Evette Soni - 03/02/2019 12:19 PM CDT Name of Medication: ADDERALL Provider: Harvey Crain M.D. Strength: 5 mg Frequency: Take 1 tablet (5 mg total) by mouth 2 (two) times a day Pharmacy (include Location): [facility] documented in this encounter Plan of Treatment Not on filedocumented as of this encounter Visit Diagnoses Not on filedocumented in this encounter Care Teams Dump Grader Relationship Specialty Start Date End Date Harvye Crain M.D. PCP - General Internal Medicine 02/28/19 07/31/19 documented as of this encounter
--- OUTSIDE RECORDS SUMMARY | 2022-08-19 06:55 | XMS_ITS | Encounter Summary ---
:1975 Author Organization [facility] Address [address] [place] [address] Care Team Providers Name Role Phone Markos Claire APRN, C.N.P. Primary Care Provider [phone] Reason for Visit Reason Comments Sore Throat Encounter Details Date Type Department Care Team Description 12/03/2018 - Emergency [facility] Pharyngitis Acute 12/04/[address] (Primary Dx) [place] [phone] Social History Tobacco Use Types Packs/Day [...] you attend islam or Patient refused 2020 nondenominational services? Do [...] by 0 (for_TYLENOL) 500 mg mouth. tablet dextroamphetamine-ampheta Take 1 tablet (5 mg 60 tablet 0 0 12/01/2018 12/24/2018 mine (ADDERALL) 5 mg total) by mouth 2 tablet (two) times a day Earliest Fill Date: 12/01/18. CSA 09/10/16 nortriptyline (PAMELOR) TAKE ONE CAPSULE BY 90 capsule 3 03/15/2019 50 mg capsule MOUTH ONCE DAILY documented as of this encounter Plan of Treatment Not on filedocumented as of this encounter Visit Diagnoses Diagnosis Pharyngitis Acute - Primary documented in this encounter Care Teams Information Technology Teacher Relationship Specialty Start Date End Date Markos Claire, ELA, C.N.P. PCP - General 03/26/17 02/27/19 [address] [address] documented as of this encounter
--- OUTSIDE RECORDS SUMMARY | 2022-08-19 06:55 | XMS_ITS | Encounter Summary ---
:1975 Author Organization [facility] Address [address] [place] [address] Care Team Providers Name Role Phone Markos Claire APRN, C.N.P. Primary Care Provider [phone] Reason for Referral Outpatient (Routine) - Closed Specialty Diagnoses / Procedures Referred By Contact Refer red To Contact Family Medicine Diagnoses Rotator Cuff Repair Shoulder Status Post Strain Muscles And Tendons Rotator Cuff Right Shoulder Subsequent João Jerome [facility] [place] [facility] M.[place]ul[place] [address] [phone] Referral ID Status Reason Start Date Expiration Date Visits Requ ested Visits Authorized [id number] Closed 11/12/2018 11/12/2019 1 1 NCIAL ADVISER Outpatient (Routine) - Closed Specialty Diagnoses / Procedures Referred By Contact Refer red To Contact Orthopedic Surgery Diagnoses Rotator Cuff Repair Shoulder Status Post Strain Muscles And Tendons Rotator Cuff Right Shoulder Subsequent João Jerome [facility] [place] [facility] M.[place]ul[place] [address], [place] [address] Referral ID Status Reason Start Date Expiration Date Visits Requ ested Visits Authorized [id number] Closed 11/12/2018 11/12/2019 1 1 NCIAL ADVISER Outpatient (Routine) - Closed Specialty Diagnoses / Procedures Referred By Contact Refer red To Contact Orthopedic Surgery Diagnoses Rotator Cuff Repair Shoulder Status Post Strain Muscles And Tendons Rotator Cuff Right Shoulder Subsequent João Jerome [facility] [place] [facility] M.DPatricia [address] [place] [address] Referral ID Status Reason Start Date Expiration Date Visits Requ ested Visits Authorized [id number] Closed 11/12/2018 11/12/2019 1 1 NCIAL ADVISER Reason for Visit Reason Comments Shoulder Pain left - re-injured - retorn a bout 1 month ago - pain rated 4/10 Pain Appointment Request (Routine) - Closed Specialty Diagnoses / Procedures Referred By Contact Refer red To Contact Orthopedic Surgery Diagnoses PAR REVIEW [facility] Procedures ORS EST Referral ID Status Reason Start Date Expiration Date Visits Requ ested Visits Authorized [id number] Closed 10/21/2018 10/21/2019 1 1 Encounter Details Date Type Department Care Team Description 2018 Office Visit Department of João Jerome Rotator Cu ff Repair Shoulder Status Post (Primary Dx); Orthopedic Surgery in [place] Strain Muscles And Tendons Rotator Cuff Right Shoulder Subsequent [place], [place] [address] [place] [phone] Social History Tobacco Use [...] you attend jew or Patient refused 2020 yazidi services? Do [...] to pay for the very basics like [facility] hat hard 07/17/2021 food, housing, medical care, [...] - Temperature - - Respiratory Rate 18 2018 9:35 AM FINANCIAL ADVISER Oxygen Saturation - - Inhaled Oxygen Concentration - - Weight 69 kg (152 lb 1.9 oz) 2018 9:35 AM FINANCIAL ADVISER Height 165.5 cm (5' 5.16) 2018 9:35 AM FINANCIAL ADVISER Body Mass Index 25.19 2018 9:35 AM FINANCIAL ADVISER documented in this encounter Progress Notes João Jerome M.D. - 2018 9:45 AM CST HPI: Alon is a pleasant 43-year-old gentleman who returns for follow-up of his left shoulder. He underwent a left shoulder arthroscopic rotator cuff repair, slap repair, and open biceps tenodesis in April of 2018. He was not very good about following his lifting restrictions and had several injuries after surgery, at least 1 of which involved feeling a pop and tearing sensation in his shoulder. He had an increase in pain and weakness after this. 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 We elected proceed with physical therapy at his last visit. He notes he has not had any improvement. He continues to have trouble lifting his arm overhead. He has weakness. He has pain. He knows he is going to need this Re fixedbut is having trouble finding a time that he can diligently follow his restrictions. PHYSICAL EXAM: He is a healthy-appearing gentleman in no acute distress. Examination of his left shoulder reveals benign skin. Previous incisions are well healed. He has 150?? active elevation but really struggles above 90??. He has 4+ out of 5 strength with resisted abduction. He has tenderness of the glenohumeral joint. He is neurovascular intact. He has positive Neer and Hooker impingement signs. IMAGING: New MRI again is reviewed. His slap repair is intact. Is a small full-thickness tear in his conjoined tendon of his supraspinatus and infraspinatus. ASSESSMENT AND PLAN: Alon is a pleasant 43-year-old gentleman who underwent a left shoulder arthroscopic rotator cuff repair, slap repair, and open biceps tenodesis in April of 2018. He subsequently re-injured this will not following his restrictions postoperatively. I do think he will need this repaired again. Risks, benefits, alternatives to a left shoulder arthroscopic subacromial decompression and rotator cuff repairwere explained. He did express understanding of this and agreed with the decision to proceed with surgery. He is going to hold off on scheduling for now until he finds a good time for surgery. He will call us and schedule over the phone. NCIAL ADVISER documented in this encounter Miscellaneous Notes Addendum Note - João Jerome M.D. - 2018 9:45 AM FINANCIAL ADVISER Addended by: JOÃO JEROME on: 11/12/2018 10:29 AM Modules accepted: Orders NCIAL ADVISER documented in this encounter Plan of Treatment Scheduled Referrals Name Type Priority Associated Order Schedule Diagnoses Orthopedic Surgery Outpatient Referral Routine Rotator Cuff Re pair 1 Occurrences Post Op (clinic) Shoulder Status starting 11/12/2018 Post until 11/12/2021 Strain Muscles And Tendons Rotator Cuff Right Shoulder Subsequent Orthopedic Surgery Outpatient Referral Routine Rotator Cuff Re pair 1 Occurrences Post Op (clinic) Shoulder Status starting 11/12/2018 Post until 05/12/2019 Strain Muscles And Tendons Rotator Cuff Right Shoulder Subsequent Primary Care - [facility] Outpatient Referral Routine Rotator Cuff Re pair Expected: consult (clinic) Shoulder Status 11/12/19 19 Post (Approximate), Strain Muscles And Expires: 11/12/2021 Tendons Rotator Cuff Right Shoulder Subsequent documented as of this encounter Visit Diagnoses Diagnosis Rotator Cuff Repair Shoulder Status Post - Primary Strain Muscles And Tendons Rotator Cuff Right Shoulder Subsequent documented in this encounter Care Teams Director Stars Relationship Specialty Start Date End Date Markos Claire, ELA, C.N.P. PCP - General 03/26/17 02/27/[address] [phone] documented as of this encounter
--- OUTSIDE RECORDS SUMMARY | 2022-08-19 06:55 | XMS_ITS | Encounter Summary ---
:1975 Author Organization [facility] Address [address] [place] [address] Care Team Providers Name Role Phone Markos Claire APRN, C.N.P. Primary Care Provider [phone] Encounter Details Date Type Department Care Team Description 01/04/2019 Nurse Triage Department of [facility] Nori Betancur R.N. [facility], [facility], [place], [place] [address] [place] [address] Social History Tobacco Use Types Packs/Day Years [...] you attend restorationist or Patient refused 2020 zoroastrianism services? Do [...] on filedocumented in this encounter Care Teams Dredge Pipe Installer Relationship Specialty Start Date End Date Markos Claire, ELA, C.N.P. PCP - General 03/26/17 02/27/[address] [phone] documented as of this encounter
--- OUTSIDE RECORDS SUMMARY | 2022-08-19 06:55 | XMS_ITS | Encounter Summary ---
:1975 Author Organization [facility] Address [address] [place] [address] Care Team Providers Name Role Phone Harvey Crain M.D. Primary Care Provider Reason for Visit Reason Comments Post-op 3 mo PO rev LRTCR Post-op Pain Appointment Request (Routine) - Closed Specialty Diagnoses / Procedures Referred By Contact Refer red To Contact Orthopedic Surgery Referral ID Status Reason Start Date Expiration Date Visits Requ ested Visits Authorized [id number] Closed 02/11/2019 02/11/2020 1 Encounter Details Date Type Department Care Team Description 03/25/2019 Office Visit Department of Kaden Pindea Rotator Cu ff Repair Orthopedic Surgery in [place] Shoulder Status Post [place], [place] [address] (Primary Dx) [address] [place] [phone] Social History Tobacco Use Types Packs/Day Years [...] you attend catholic or Patient refused 2020 holiness services? Do [...] Taken Comments Blood Pressure - - Pulse 78 03/25/2019 8:19 AM CDT Temperature - - Respiratory Rate 17 03/25/2019 8:19 AM CDT Oxygen Saturation - - Inhaled Oxygen Concentration - - Weight 69.1 kg (152 lb 5.4 oz) 03/25/2019 8:19 AM CDT Height - - Body Mass Index 25.23 2018 9:35 AM MANAGER HUMAN CAPITAL documented in this encounter Progress Notes Kaden Pineda M.D. - 03/25/2019 8:45 AM CDT HPI: Alon returns to clinic 3 months out from a left shoulder arthroscopic revision rotator cuff repair.He had several falls soon after surgery. He actually was doing very well when I saw him at his 6 week postop visit. He continues to do well until about 2 weeks ago. He then redeveloped pain is struggling to lift his arm. He has had pain at night. Pain up in his neck. The pain will shoot down his arm. He notes last time he was in physical therapy with 6 weeks ago. He is back working and pushing 150 lbdyes. PHYSICAL EXAM: On exam of his left shoulder, his incisions are well healed. No evidence for infection. He can actively abduct to about 100?? today. Passively can go up to 150??. He has tenderness diffusely around theshoulder. He is neurovascular intact distally. ASSESSMENT AND PLAN: Alon is 3 months out from a left shoulder arthroscopic revision rotator cuff repair. He continues to struggle following his restrictions. He has not been in formal therapy for 6 weeks. I did stress the importance of getting back into physical therapy. I gave him a new therapy prescription today. I advised against what he is doing at work, but he states he cannot afford to be off. I do want to check back in clinic in 2 months for documented in this encounter Plan of Treatment Not on filedocumented as of this encounter Visit Diagnoses Diagnosis Rotator Cuff Repair Shoulder Status Post - Primary documented in this encounter Care Teams Melter Loader Relationship Specialty Start Date End Date Harvey Crain M.D. PCP - General Internal Medicine 02/28/19 07/31/19 documented as of this encounter
--- OUTSIDE RECORDS SUMMARY | 2022-08-19 06:55 | XMS_ITS | Encounter Summary ---
:1975 Author Organization [facility] Address [address] [place] [address] Care Team Providers Name Role Phone Markos Claire APRN, C.N.P. Primary Care Provider [phone] Reason for Visit Reason Onset Date Comments requesting surgery 11/10/2018 requesting surgery Encounter Details Date Type Department Care Team Description 11/10/2018 Clinical Communication Department of Markos Claire surgery Internal Medicine ELA Diggs, (fidel g surgery in [place], C.N.P. ) [place] [address] [place] [phone] Social History Tobacco Use Types Packs/Day Years [...] you attend episcopalian or Patient refused 2020 temple services? Do [...] to pay for the very basics like [email or web address] hat hard 07/17/2021 food, housing, medical care, [...] Telephone Encounter - Isa Jerez L.P.N. - 11/15/2018 11:21 AM GARMENT FINISHER Called pt, he states that he received a message to call the clinic today, informed him that our office did not call him. ENT FINISHER Telephone Encounter - Sylvie Woods - 11/15/2018 9:41 AM CST Patient returning call. Unable to reach nurse for Markos Claire or nurse for Doctor Pineda. Please call patient back at [phone]. Patient authorizing a detailed message to be left at this number ENT FINISHER Telephone Encounter - Therese Guillaume, C.M.APatricia - 11/12/2018 10:35 AM GARMENT FINISHER Patient is scheduled for surgery on 12/02/18 Patient nurse education was given on 11/12/18 by Soni Guillaume BEAM CARRIER HAULER PUSHER ENT FINISHER Telephone Encounter - Therese Guillaume, C.M.A. - 11/12/2018 10:14 AM GARMENT FINISHER Left message for patient to call clinic back Patient need Nurse surgery ed for his right RTC repair Patient also needs to be transferred to Makayla Poon to set up surgery appointments. ENT FINISHER Telephone Encounter - Kaden Pineda M.D. - 11/12/2018 7:53 AM GARMENT FINISHER Surgery paperwork filled out. ENT FINISHER Telephone Encounter - Vicky Hester C.M.A. - 11/11/2018 5:18 PM GARMENT FINISHER Tried to call patient. Left message to call our clinic back. ENT FINISHER Telephone Encounter - Perlita Blancas APRN, C.N.PPatricia, D.N.P., M.S.N. - 11/11/2018 5:10 PM CST At this time there is no indication for prescription pain medications, especially since this has been a longstanding issue for him. Recommend maximizing OTC medications, including ice and/or heat for up to 20 minutes at a time, topical analgesics like Aspercreme or icy hot, as well as Tylenol and/or ibuprofen. ENT FINISHER Telephone Encounter - Makayla Poon - 11/11/2018 2:39 PM CST Pt calling back wanting to schedule surgery. Advised pt that I would call him back once I get order from dr. Pineda for the surgery. ENT FINISHER Telephone Encounter - Florinda Flynn C.M.A. - 11/11/2018 1:48 PM GARMENT FINISHER IM - Alethea - Patient states this message was to go to his PCP - Alethea. He already knew Dr. Pineda would not be able to give him pain medication. Patient states he is unable to sleep due to the pain. He has decided not to put off his surgery as long as planned and is asking for something to get him by until he is able to get it taken care of. Please advise. Makayla - Patient would like to go ahead and schedule his shoulder surgery for either Nov or December. Saw Dr. Pineda on 11/05/18, was going to put it off but is having a lot of pain and trouble sleeping.If you have the orders, please call patient. Otherwise, we will have to get orders from Dr. Pineda tomorrow. ENT FINISHER Telephone Encounter - Evette Soni - 11/11/2018 12:17 PM CST Pt called, please call back ENT FINISHER Telephone Encounter - Makayla Chadwick LPatriciaP.N. - 11/10/2018 3:15 PM CST Left message to call clinic back. Spoke with Dr. Pineda who states patient has a known RTC tear which is non-operative at this time. Patient will need to obtain pain medication from PCP until surgery is scheduled. ENT FINISHER Telephone Encounter - Jocy Rosales - 11/10/2018 12:39 PM CST Reason for Communication: Patient states he had shoulder surgery and re hurt it and is looking for some time of pain medication before he comes in. Current Can Nursing/Provider leave a detailed message: yes Did the patient refuse triage through Nurse line? (for symptom based concerns) Action Needed: call patient Name of Medication (if relevant): ENT FINISHER documented in this encounter Plan of Treatment Not on filedocumented as of this encounter Visit Diagnoses Not on filedocumented in this encounter Care Teams Lna Relationship Specialty Start Date End Date Markos Claire APRN, C.N.P. PCP - General 03/26/17 02/27/[address] [address] documented as of this encounter
--- OUTSIDE RECORDS SUMMARY | 2022-08-19 06:55 | XMS_ITS | Encounter Summary ---
:1975 Author Organization [facility] Address [address] [place] [address] Care Team Providers Name Role Phone Markos Claire APRN, C.N.P. Primary Care Provider [phone] Reason for Visit Reason Comments Med Refill Encounter Details Date Type Department Care Team Description 11/30/2018 Refill Department of Internal Medicine Roula Claire APRN, Med Refill in [facility] C.N.P. [address] [place] [phone] [place] [address] (Wo rk) Social History Tobacco Use Types [...] you attend holiness or Patient refused 2020 adventist services? Do [...] to pay for the very basics like [employer] hard 07/17/2021 food, housing, medical care, and [...] this encounter Miscellaneous Notes Telephone Encounter - Lavonne Mendiola L.P.N. - 11/30/2018 4:25 PM CST Rx proposed NCE SEAL DELIVERY SYSTEM MAINTAINER Telephone Encounter - Florinda Morley - 11/30/2018 4:16 PM CST Nurse review: Unable to pend medication; Controlled Substance Primary Provider: Markos Claire APRN, C.N.P. Name of medication: Adderall Strength: 5 MG tablet Frequency: Take 1 tablet by mouth twice daily Quantity: 60 Refills: Last Refill: 10/02/2018 Pharmacy: [facility] NCE SEAL DELIVERY SYSTEM MAINTAINER documented in this encounter Plan of Treatment Not on filedocumented as of this encounter Visit Diagnoses Not on filedocumented in this encounter Care Teams Pathology Technologist Relationship Specialty Start Date End Date Markos Claire APRN, C.N.P. PCP - General 03/26/17 02/27/19 [address] [place] [address] documented as of this encounter
--- OUTSIDE RECORDS SUMMARY | 2022-08-19 06:55 | XMS_ITS | Encounter Summary ---
:1975 Author Organization [facility] Address [address] [place] [address] Care Team Providers Name Role Phone Harvey Crain M.D. Primary Care Provider Reason for Visit Reason Onset Date Comments Appointment 04/06/2019 Encounter Details Date Type Department Care Team Description 04/06/2019 Clinical Communication Department of Therese Guillaume Appointment [place] [address] [place] [phone] Social History Tobacco Use Types Packs/Day Years [...] attend jehovah's witness or Patient refused 2020 oriental orthodox services? [...] or slept in a custodial (including now)? Sex Assigned at Date Recorded Not on file documented as of this encounter Miscellaneous Notes Telephone Encounter - Therese Guillaume C.M.A. - 04/07/2019 10:36 AM CDT fyi Informed patient of message below, patient states he is in a lot of pain but agrees that the appointment of Thursday would not be necessary if there would be no more treatment plans at this time. Patientdid state he is going to try to follow up in [place]. Telephone Encounter - Evette Soni - 04/07/2019 10:11 AM CDT Pt called, please call back Telephone Encounter - Therese Guillaume C.MNixon - 04/07/2019 9:39 AM CDT Left message for patient to call clinic back Telephone Encounter - Therese Guillaume C.MNixon - 04/06/2019 3:43 PM CDT Left message for patient to call clinic back Please ask patient About his appointment on Sunday 04/[address] Pineda states that there is nothing more he is going to be able to do at this time with his shoulder pain. Patient was last seen on 03/[address] Pineda and was recommended to attend physical therapy. At that visit Dr. Pineda did fill out a referral for patient to attend physical therapy. Dr. Pineda states he is more than happy to see patient this Thursday if patient wants to talk with him but he needs to continue and finish with physical therapy before he is going to see any decrease of pain. documented in this encounter Plan of Treatment Not on filedocumented as of this encounter Visit Diagnoses Not on filedocumented in this encounter Care Teams Commercial Lawn Specialist Relationship Specialty Start Date End Date Harvey Crain M.D. PCP - General Internal Medicine 02/28/19 07/31/19 documented as of this encounter
--- OUTSIDE RECORDS SUMMARY | 2022-08-19 06:55 | XMS_ITS | Encounter Summary ---
:1975 Author Organization [facility] Address [address] [place] [address] Care Team Providers Name Role Phone Markos Claire APRN, C.N.P. Primary Care Provider [phone] Reason for Visit Reason Comments Post-op Problem Encounter Details Date Type Department Care Team Description 02/09/2019 - Emergency [facility] Injury Shoulder Initial Left (Primary Dx); 02/10/[address] [place] [phone] Social History Tobacco Use Types Packs/Day [...] you attend yarsani or Patient refused 2020 caodaism services? Do [...] or slept in a correction (including now)? Sex Assigned at Date Recorded Not on file documented as of this encounter Medications at Time of Discharge Medication Sig Dispensed Refills Start Date End Date acetaminophen Take 1,000 mg by 0 (for_TYLENOL) 500 mg mouth. tablet ALLERGY 0 01/05/2019 08/03/2019 RELIEF,DIPHENHYDRAMIN, 25 mg capsule dextroamphetamine-ampheta Take 1 tablet (5 mg 60 tablet 0 0 02/02/2019 03/02/2019 mine (ADDERALL) 5 mg total) by mouth 2 tablet (two) times a day Earliest Fill Date: 02/02/19. CSA 09/10/16 ibuprofen (ADVIL,MOTRIN) 0 12/30/2018 04/06/2020 800 mg tablet nortriptyline (PAMELOR) TAKE ONE CAPSULE BY 90 capsule 3 03/15/2019 50 mg capsule MOUTH ONCE DAILY oxyCODONE-acetaminophen Take 1 tablet by 28 tablet 0 201803/16/2019 (PERCOCET) 5-325 mg per mouth every 6 (six) tabletIndications: Acute hours as needed for Pain Exception pain or severe pain or score 7-10 of 10 Indication: Acute Pain Exception. documented as of this encounter Plan of Treatment Not on filedocumented as of this encounter Procedures Procedure Name Priority Date/Time Associated Comments Diagnosis DX SHOULDER LEFT RAD - Semiurgent 02/09/2019 5:19 Pain Shoulder Res ults for this 2+ VIEWS (Fast; most ED PM CDT Left procedure are in patients; some the results inpatients) section. documented in this encounter Results DX Shoulder Left 2+ Views (02/09/2019 5:19 PM CDT) Anatomical Region Laterality Modality Upper Extremity, Shoulder, Musculoskeletal RST LOS, Left Digital Radiography Musculoskeletal ARZ LOS, Muskuloskeletal FLA LOS Specimen (Source) Anatomical Collection Method Collection Time Re ceived Time Location / / Volume Laterality 02/10/2019 7:02 AM CDT Impressions 02/10/2019 7:05 AM CDT IMPRESSION: Soft tissue anchor the proximal left humeral diaphysis. Faint mineral density over the lateral humeral head; these could be related to heterotopic ossification versus calcific tendinitis cannot seen on radiographs 01/04/2019. No acute fracture or dislocat ion. Narrative 02/10/2019 7:05 AM CDT EXAM: DX SHOULDER LEFT 2+ VIEWS vRad: ??Findings concordant with prelimi yelena vRad report. Procedure Note Wei Chavez M.D. - 02/10/2019Formatt ing of this note might be different from the original. EXAM: DX SHOULDER LEFT 2+ VIEWS vRad: Findings concordant with prelimina gallo vRad report. IMPRESSION: Soft tissue anchor the proxi mal left humeral diaphysis. Faint mineral density over the lateral humeral head; these could be related to heterotopic ossification versus calcific tendinitis cannot seen on radiographs 01/04/2019. No acute fracture or dislocat ion. Haylee Rosa APRN, C.N.P., R.N. IMG DIAGNOSTIC IMAGING PROCEDURES documented in this encounter Visit Diagnoses Diagnosis Injury Shoulder Initial Left - Primary Pain Shoulder Left documented in this encounter Care Teams Line Runner Relationship Specialty Start Date End Date Markos Claire APRN, C.N.P. PCP - General 03/26/17 02/27/[address] [address] documented as of this encounter
--- OUTSIDE RECORDS SUMMARY | 2022-08-19 06:55 | XMS_ITS | Encounter Summary ---
:1975 Author Organization [facility] Address [address] [place] [address] Care Team Providers Name Role Phone Markos Claire APRN, C.N.P. Primary Care Provider [phone] Reason for Visit Reason Comments Post-op 2 wk post op left rotator cu ff tear Outpatient (Routine) - Closed Specialty Diagnoses / Procedures Referred By Contact Refer red To Contact Orthopedic Surgery Diagnoses Rotator Cuff Repair Shoulder Status Post Strain Muscles And Tendons Rotator Cuff Right Shoulder Subsequent Kaden Pineda, [facility] [address] [place] [address] Referral ID Status Reason Start Date Expiration Date Visits Requ ested Visits Authorized [id number] Closed 11/12/2018 11/12/2019 1 1 Encounter Details Date Type Department Care Team Description 01/14/2019 Office Visit Department of Derrick Edmondson, Rotator C uff Repair Shoulder Status Post; Orthopedic Surgery in [place]. Strain Muscles And Tendons Rotator Cuff Right Shoulder Subsequent [place], [place] [address] [place] [phone] Social History Tobacco Use [...] you attend evangelical or Patient refused 2020 mandaen services? Do you belong to any clubs [...] documented as of this encounter Progress Notes Derrick Edmondson P.A.-C. - 01/14/2019 9:00 AM CDT PRIMARY CARE PROVIDER Markos Claire APRN, C.N.P. CHIEF COMPLAINT/REASON FOR VISIT Two week postoperative recheck of left shoulder arthroscopy with subacromial decompression and rotator cuff repair. This is a 2nd at rotator cuff repair on this side. HISTORY OF PRESENT ILLNESS Alon Jaimes is a very pleasant 43 y.o. year-old male who presents today for 2 week postop recheck of the above-stated procedure performed by Dr. Pineda on 12/30/2018. Patient reports that he is doing very well. He has not started physical therapy. He has a set up to start at 4 weeks. Denies any issues with swelling, numbness, tingling, or extreme pain. No fever chills night sweats, nausea, or vomiting. PHYSICAL EXAMINATION GENERAL: This is a well-nourished, well-developed, male. Alert and oriented x3 in no acute distress.Cooperative and responds appropriately to all questions. MUSCULOSKELETAL: Examination of the left shoulder reveals 3 well-healing, well- approximated, portal incision sites. These are clean, dry, and intact without signs of infection. Neurovascularly intact distally. Capillary refill less than 2 seconds. Demonstrates full elbow, wrist and finger range of motion. IMPRESSION/REPORT/PLAN Two weeks status post left shoulder arthroscopy with subacromial decompression and rotator cuff repair performed by Dr. Pineda on 12/30/2018. PLAN: Alon Jaimes is doing well. At this point, we did discuss that he can introduce anti-inflammatories such as ibuprofen or Aleve in addition to Tylenol or pain medications. This should allow him to cut down on narcotic pain medications. We did recommend continuing with the icing. All questions were answered to the patient's satisfaction. We will plan on seeing patient back in [address] Pineda. This note has been written using fluency direct voice recognition dictation. Typographical errors may occur. For any concerns regarding accuracy or clarification of this note, please contact the author. documented in this encounter Plan of Treatment Not on filedocumented as of this encounter Visit Diagnoses Diagnosis Rotator Cuff Repair Shoulder Status Post Strain Muscles And Tendons Rotator Cuff Right Shoulder Subsequent documented in this encounter Care Teams Knife Edger Relationship Specialty Start Date End Date Markos Claire, ELA, C.N.P. PCP - General 03/26/17 02/27/[address] [address] documented as of this encounter
--- OUTSIDE RECORDS SUMMARY | 2022-08-19 06:55 | XMS_ITS | Encounter Summary ---
:1975 Author Organization [facility] Address [address] [place] [address] Care Team Providers Name Role Phone Harvey Crain M.D. Primary Care Provider Encounter Details Date Type Department Care Team Description 03/30/2019 Clinical Communication Department of [facility] Shiloh Montenegro, Medicine in [facility] [phone] [place] [address] Social History Tobacco Use Types Packs/Day [...] you attend jewish or Patient refused 2020 spiritism services? Do [...] or slept in a chcf (including now)? Sex Assigned at Date Recorded Not on file documented as of this encounter Miscellaneous Notes Telephone Encounter - Nusrat Montenegro R.N. - 03/30/2019 10:13 AM CDT Spoke with patient regarding referral to PM, Patient reports that he does not wish to proceed with referral to PM at this time. Will send to scheduling to remove from the que at this time. documented in this encounter Plan of Treatment Not on filedocumented as of this encounter Visit Diagnoses Not on filedocumented in this encounter Care Teams Media Assistant Relationship Specialty Start Date End Date Harvey Crain M.D. PCP - General Internal Medicine 02/28/19 07/31/19 documented as of this encounter
--- OUTSIDE RECORDS SUMMARY | 2022-08-19 06:55 | XMS_ITS | Encounter Summary ---
:1975 Author Organization [facility] Address [address] [place] [address] Care Team Providers Name Role Phone Markos Claire APRN, C.N.P. Primary Care Provider [phone] Encounter Details Date Type Department Care Team Description 01/05/2019 Clinical Communication Department of [facility] Zara RKate [facility], [facility] [address] [place] [address] Social History Tobacco Use Types [...] you attend anglican or Patient refused 2020 pentecostalism services? Do [...] slept in a senior care (including now)? Sex Assigned at Date Recorded Not on file documented as of this encounter Miscellaneous Notes Telephone Encounter - Cindy Henrandez - 01/05/2019 8:00 AM CDT Patient discharged from the emergency department on 01/04 for a wound check on his left shoulder. Patient advised to follow up with a provider within 3 days. Contact number: [phone] documented in this encounter Plan of Treatment Not on filedocumented as of this encounter Visit Diagnoses Not on filedocumented in this encounter Care Teams Orthopaedic Nurse Relationship Specialty Start Date End Date Markos Claire, ELA, C.N.P. PCP - General 03/26/17 02/27/[address] [address] documented as of this encounter
--- OUTSIDE RECORDS SUMMARY | 2022-08-19 06:55 | XMS_ITS | Encounter Summary ---
:1975 Author Organization [facility] Address [address] [place] [address] Care Team Providers Name Role Phone Markos Claire APRN, C.N.P. Primary Care Provider [phone] Reason for Visit Reason Comments Med Refill Encounter Details Date Type Department Care Team Description 02/02/2019 Refill Department of Family Medicine, [place] Claire am, APRN, Med Refill [facility] in [facility] [address] [place] [address] [place] [address] [phone] Social History Tobacco Use Types Packs/Day Years [...] you attend confucianist or Patient refused 2020 buddhist services? Do [...] to pay for the very basics like [employer] hat hard 07/17/2021 food, housing, medical care, [...] encounter Miscellaneous Notes Telephone Encounter - Zully Borrego - 02/02/2019 3:28 PM CDT Nurse review: Unable to pend medication; Controlled substance Primary Provider: Markos Claire APRN, C.N.P. Name of medication: adderall Strength: 5 mg Frequency: take 1 tablet by mouth twice daily Quantity: 60 Refills: na Last Refill:12/27/18 Pharmacy: [facility] documented in this encounter Plan of Treatment Not on filedocumented as of this encounter Visit Diagnoses Not on filedocumented in this encounter Care Teams Block Cuber Relationship Specialty Start Date End Date Markos Claire APRN, C.N.P. PCP - General 03/26/17 02/27/19 [address] [place] [address] [place] [address] documented as of this encounter
--- OUTSIDE RECORDS SUMMARY | 2022-08-19 06:55 | XMS_ITS | Encounter Summary ---
:1975 Author Organization [facility] Address [address] [place] [address] Care Team Providers Name Role Phone Markos Claire APRN, C.N.P. Primary Care Provider [phone] Reason for Visit Reason Onset Date Comments SURGERY DATE 11/12/2018 LEFT ROTATOR CUFF TE AR Encounter Details Date Type Department Care Team Description 11/12/2018 Clinical Communication Department of [place], SURG BEENA DATE (LEFT Orthopedic Surgery Kaden Roldan M.D. ROTATOR CUFF TEAR ) in [facility] [address] [address] [place] [address] Social History Tobacco Use [...] you attend jain or Patient refused 2020 congregational services? Do [...] to pay for the very basics like [employer] hat hard 07/17/2021 food, housing, medical [...] Notes Telephone Encounter - Makayla Poon - 11/12/2018 11:25 AM CST Sent to Dr. Ferrer - by mistake. please Disregard. IONARY COORDINATOR Telephone Encounter - Makayla Poon - 11/12/2018 11:20 AM CST PREOP DATE: 12/24/2018 TATIANA S: SURGERY DATE: 12/30/2018 B: REQUEST FOR SURGERY: LEFT SHOULDER ARTHROSCOPY SUBACROMIAL DECOMPRESSION ROTATOR CUFF REPAIR A: RISK ASSESSMENT: ANESTHESIA: GENERAL R: HOSPITAL WILL CALL WITH ARRIVAL TIME SURGEON: QUEENIE LOCATION: [facility] LABS: N/A IONARY COORDINATOR documented in this encounter Plan of Treatment Not on filedocumented as of this encounter Visit Diagnoses Not on filedocumented in this encounter Care Teams Ict Support And Test Engineers Relationship Specialty Start Date End Date Markos Claire, LEA, C.N.P. PCP - General 03/26/17 02/27/[address] [address] documented as of this encounter
--- OUTSIDE RECORDS SUMMARY | 2022-08-19 06:55 | XMS_ITS | Encounter Summary ---
:1975 Author Organization [facility] Address [address] [place] [address] Care Team Providers Name Role Phone Harvey Crain M.D. Primary Care Provider Encounter Details Date Type Department Care Team Description 03/30/2019 Clinical Communication Department of [facility] Funmi Mcdowell [facility] in [place] [phone] [place], [place] [phone] [address] (Work) [phone] Social History Tobacco Use Types Packs/Day Years [...] you attend advent or Patient refused 2020 pentecostal services? Do [...] this encounter Miscellaneous Notes Telephone Encounter - Funmi Mcdowell - 03/30/2019 10:24 AM CDT Per pt request does not want to see PM at this time. Tiffani documented in this encounter Plan of Treatment Not on filedocumented as of this encounter Visit Diagnoses Not on filedocumented in this encounter Care Teams Invertebrate Paleontologist Relationship Specialty Start Date End Date Harvey Crain M.D. PCP - General Internal Medicine 02/28/19 07/31/19 documented as of this encounter
--- OUTSIDE RECORDS SUMMARY | 2022-08-19 06:55 | XMS_ITS | Encounter Summary ---
:1975 Author Organization [facility] Address [address] [place] [address] Care Team Providers Name Role Phone Harvey Crain M.D. Primary Care Provider Reason for Visit Reason Comments Med Refill Encounter Details Date Type Department Care Team Description 03/15/2019 Refill Department of Internal Medicine Roula Claire APRN, Med Refill in [facility] C.N.P. [address] [place] [address] [address] [place] [address] [phone] (Wo rk) Social History Tobacco Use Types [...] or relatives? How often do you attend zoroastrian or Patient refused 2020 evangelical services? Do you belong to any clubs or No 07/17/2021 organizations such as zoroastrian groups, unions, fraternal or athletic groups, or [...] to pay for the very basics like [employer] hat hard 07/17/2021 food, housing, medical care, [...] on filedocumented in this encounter Care Teams Production Assembly Operator Relationship Specialty Start Date End Date Harvey Crain M.D. PCP - General Internal Medicine 02/28/19 07/31/19 documented as of this encounter
--- OUTSIDE RECORDS SUMMARY | 2022-08-19 06:55 | XMS_ITS | Encounter Summary ---
:1975 Author Organization [facility] Address [address] [place] [address] Care Team Providers Name Role Phone Harvey Crain M.D. Primary Care Provider Reason for Visit Reason Comments Arm Pain Encounter Details Date Type Department Care Team Description 03/23/2019 Emergency [facility] Pain Arm (Primary Dx) [address] [place] [address] [facility] [phone] Social History Tobacco Use Types Packs/Day Years [...] or relatives? How often do you attend mosque or Patient refused 2020 mandaen services? Do you belong to any clubs or No 07/17/2021 organizations such as mosque groups, unions, fraternal or athletic groups, or [...] or slept in a fci (including now)? Sex Assigned at Date Recorded [...] of this encounter Visit Diagnoses Diagnosis Pain Arm - Primary documented in this encounter Care Teams Tie Up Worker Relationship Specialty Start Date End Date Harvey Crain M.D. PCP - General Internal Medicine 02/28/19 07/31/19 documented as of this encounter
--- OUTSIDE RECORDS SUMMARY | 2022-08-19 06:55 | XMS_ITS | Encounter Summary ---
:1975 Author Organization [facility] Address [address] [place] [address] Care Team Providers Name Role Phone Markos Claire APRN, C.N.P. Primary Care Provider [phone] Reason for Visit Reason Comments Med Refill Encounter Details Date Type Department Care Team Description 01/10/2019 Refill Department of Family Medicine, Vernon Claire am, APRN, Med Refill [facility], [facility] [place] [address] [place] [address] [place] [address] [facility] [phone] Social History Tobacco Use Types Packs/Day Years [...] attend roman catholic or Patient refused 2020 moravian services? Do [...] to pay for the very basics like [employer] hat hard 07/17/2021 food, housing, medical care, [...] or slept in a mcc (including now)? Sex Assigned at Date Recorded Not on file documented as of this encounter Plan of Treatment Not on filedocumented as of this encounter Visit Diagnoses Not on filedocumented in this encounter Care Teams Continuous Mining Operator Relationship Specialty Start Date End Date Markos Claire, ELA, C.N.P. PCP - General 03/26/17 02/27/[address] [place] [phone] documented as of this encounter
--- OUTSIDE RECORDS SUMMARY | 2022-08-19 06:55 | XMS_ITS | Encounter Summary ---
:1975 Author Organization [facility] Address [address] [place] [address] Care Team Providers Name Role Phone Harvey Crain M.D. Primary Care Provider Encounter Details Date Type Department Care Team Description 04/07/2019 Clinical Communication Department of Harvey Harley M.D. [facility], [address], [facility] [id number] [place] [address] [address] (Work) [place] [address] Social History Tobacco Use Types [...] or relatives? How often do you attend gnosticist or Patient refused 2020 religion services? Do you belong to any clubs or No 07/17/2021 organizations such as gnosticist groups, unions, fraternal or athletic groups, or [...] on filedocumented in this encounter Care Teams Retail Sales Professional Relationship Specialty Start Date End Date Harvey Crain M.D. PCP - General Internal Medicine 02/28/19 07/31/19 documented as of this encounter
--- OUTSIDE RECORDS SUMMARY | 2022-08-19 06:55 | XMS_ITS | Encounter Summary ---
:[address] [facility] Address [address] [place] [address] Care Team Providers Name Role Phone Markos Claire APRN, C.NPatriciaPPatricia Primary Care Provider [phone] Reason for Visit Reason Comments Post-op surgery date 12/30.. wants to be released in 2 weeks to go back to work..Wants to change back to previous p lace for PT Post-op Outpatient (Routine) - Closed Specialty Diagnoses / Procedures Referred By Contact Refer red To Contact Orthopedic Surgery Diagnoses Rotator Cuff Repair Shoulder Status Post Strain Muscles And Tendons Rotator Cuff Right Shoulder Subsequent Kaden Pineda [facility] [place] [address] [place] [address] Referral ID Status Reason Start Date Expiration Date Visits Requ ested Visits Authorized [id number] Closed 11/12/2018 11/12/2019 1 1 Encounter Details Date Type Department Care Team Description 02/11/2019 Office Visit Department of Kaden Pineda Rotator Cu ff Repair Shoulder Status Post (Primary Dx); Orthopedic Surgery in [place] Strain Muscles And Tendons Rotator Cuff Right Shoulder Subsequent [place], [place] [address] [place] [phone] Social History Tobacco Use [...] you attend jainism or Patient refused 2020 jehovah's witness services? [...] documented as of this encounter Progress Notes Kadne Pineda M.D. - 02/11/2019 8:45 AM CDT HPI: Alon returns to clinic 6 weeks out from a left shoulder arthroscopic revision rotator cuff repair. this is our second attempt a repair of the shoulder. He violated restrictions after the first repair.He has been seen in the emergency room twice since surgery for falls onto his operative extremity. He reports today is shoulder actually feels great. He notices a large difference compared a before surgery. He wants to change what place he is doing therapy yet. PHYSICAL EXAM: He is a healthy-appearing gentleman in no acute distress. Examination of his left shoulder reveals benign skin. incisions are well healed. He can actively forward elevate to 130??. He is neurovascular intact. IMAGING: I did review x-rays from his ER visit yesterday in the demonstrate no acute osseous injuries. ASSESSMENT AND PLAN: Alon is a pleasant 43-year-old gentleman who is 6 weeks out from her left shoulder arthroscopic revision rotator cuff repair. Unfortunately he has fallen several times onto the shoulder. However, shoulders seems to be doing quite well today. He will wean out of the sling. I did renew his physical therapy prescriptions we can switch locations. We gave him some work restrictions. I want to see him back in clinic in 6 weeks. documented in this encounter Plan of Treatment Not on filedocumented as of this encounter Visit Diagnoses Diagnosis Rotator Cuff Repair Shoulder Status Post - Primary Strain Muscles And Tendons Rotator Cuff Right Shoulder Subsequent documented in this encounter Care Teams Brush Filler Hand Relationship Specialty Start Date End Date Markos Claire APRN, C.N.P. PCP - General 03/26/17 02/27/[address] [phone] documented as of this encounter
[2022-08-19 06:56] LABS: Potassium* 4.5 mmol/L (3.6-5.1)
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
--- OUTSIDE RECORDS SUMMARY | 2022-08-19 06:56 | XMS_ITS | Encounter Summary ---
:1975 Author Organization [facility] Address [address] [place] [address] Care Team Providers Name Role Phone Markos Claire APRN, C.N.P. Primary Care Provider [phone] Reason for Visit Reason Comments Med Refill Encounter Details Date Type Department Care Team Description 09/29/2018 Refill Department of Internal Medicine Roula Claire APRN, Med Refill in [facility] C.N.P. [address] [place] [address] [address] [place] [address] (Wo rk) Social History Tobacco Use Types [...] you attend mandaeism or Patient refused 2020 orthodox services? Do you belong to any [...] to pay for the very basics like [employer] hard 07/17/2021 food, housing, medical care, and [...] Notes Telephone Encounter - Ramón Farrell - 09/29/2018 9:36 AM CST Nurse review: Unable to pend medication; Stimulant Primary Provider: Markos Claire APRN, C.N.P. ?? Name of medication: Adderall Strength: 5 mg tab Frequency: Take 1 tablet by mouth twice daily. Quantity: 60 Refills: Last Refill: 08-31-18 ?? [facility]acy: [facility] ?? UCE CLERK documented in this encounter Plan of Treatment Not on filedocumented as of this encounter Visit Diagnoses Not on filedocumented in this encounter Care Teams Nursery Worker Relationship Specialty Start Date End Date Markos Claire APRN, C.N.P. PCP - General 03/26/17 02/27/19 [address], [place] [address] documented as of this encounter
--- OUTSIDE RECORDS SUMMARY | 2022-08-19 06:56 | XMS_ITS | Encounter Summary ---
:1975 Author Organization [facility] Address [address] [place] [address] Care Team Providers Name Role Phone Markos Claire APRN, C.N.P. Primary Care Provider [phone] Reason for Visit Reason Onset Date Comments Refill Request 05/27/2018 Encounter Details Date Type Department Care Team Description 05/27/2018 Clinical Communication Department of Derrick Edmondson fill Request Orthopedic Surgery in [place] [place]. [place], [place] [address] [place] [phone] Social History Tobacco Use Types Packs/Day [...] you attend cheondoism or Patient refused 2020 sabianism services? Do [...] to pay for the very basics like [employer] hat hard 07/17/2021 food, housing, medical care, [...] Miscellaneous Notes Telephone Encounter - Florinda Flynn C.M.A. - 05/28/2018 12:02 PM CDT Rx sent to [facility], called to verify. It is ready for order picker/assembler. Patient informed Telephone Encounter - Derrick Edmondson P.A.-C. - 05/28/2018 10:24 AM CDT I've entered a response to the patient's message below. Response to the message: Medication was refilled through [facility] [employer] board. Telephone Encounter - Florinda Flynn C.M.A. - 05/27/2018 3:01 PM CDT Patient is requesting a refill of pain medication. Percocet 5/325mg 1-2 tabs PO Q4H, #42. Patient had a left shoulder scope on 04/28/[address] Pineda. Last seen on 05/12/18 by Derrick for a 2 week postop and last Rx of Percocet given on 05/19/18. Please advise. Thank you documented in this encounter Plan of Treatment Not on filedocumented as of this encounter Visit Diagnoses Not on filedocumented in this encounter Care Teams Cleaning Machine Operator Relationship Specialty Start Date End Date Markos Claire APRN, C.N.P. PCP - General 03/26/17 02/27/[address] [phone] documented as of this encounter
--- OUTSIDE RECORDS SUMMARY | 2022-08-19 06:56 | XMS_ITS | Encounter Summary ---
:1975 Author Organization [facility] Address [address] [place] [address] Care Team Providers Name Role Phone Markos Claire APRN, C.N.P. Primary Care Provider [phone] Encounter Details Date Type Department Care Team Description 05/17/2018 Clinical Communication Department of [facility] Vernon Claire am, Medicine, [place] ELA, C.N.P. [facility], [facility] [address] [place], [place] [address] [address] [place] [address] [facility] [phone] Social History Tobacco Use Types Packs/Day Years [...] or relatives? How often do you attend christianity or Patient refused 2020 buddhism services? Do you belong to any clubs or No 07/17/2021 organizations such as christianity groups, unions, fraternal or athletic groups, or [...] to pay for the very basics like [employer] hat hard 07/17/2021 food, housing, medical care, [...] or slept in a alf (including now)? Sex Assigned at Date Recorded Not on file documented as of this encounter Miscellaneous Notes Telephone Encounter - Maria Ines Flores L.P.N. 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 Telephone Encounter - Isa Jerez L.P.N. - 05/17/2018 1:30 PM CDT Called pt, he is requesting a refill of Percocet for left shoulder pain. Pt had a left shoulder arthroscopy done on 04/28/[address] Pineda, he states that he has been taking Percocet 5/325 mg 1-2 tablets every 4 hours and ES Tylenol 2 tablets every 4 hours for the pain and icing shoulder. Pt's lastrefill was 05/06/18 # 42 tablets Telephone Encounter - Deepa Welch - 05/17/2018 12:31 PM CDT Patient out of pain meds and still in a lot of pain, requesting more. Please advise. documented in this encounter Plan of Treatment Not on filedocumented as of this encounter Visit Diagnoses Not on filedocumented in this encounter Care Teams Move Coordinator Relationship Specialty Start Date End Date Markos Claire, ELA, C.N.P. PCP - General 03/26/17 02/27/[address] [facility] [place] [phone] documented as of this encounter
--- OUTSIDE RECORDS SUMMARY | 2022-08-19 06:56 | XMS_ITS | Encounter Summary ---
:1975 Author Organization [facility] Address [address] [place] [address] Care Team Providers Name Role Phone Mrakos Claire APRN, C.N.P. Primary Care Provider [phone] Reason for Visit Reason Comments Post-op 3 month postop left shoulder scope. May have reinjured last week at work. Burning and sharp pain at th e top of the shoulder down to bicep. Simular to prior to surgery. Outpatient (Routine) - Closed Specialty Diagnoses / Procedures Referred By Contact Refer red To Contact Orthopedic Surgery Kaden Pineda [facility] M.D. [address] [place] [address] Referral ID Status Reason Start Date Expiration Date Visits Requ ested Visits Authorized [id number] Closed 06/08/2018 06/08/2019 1 1 Encounter Details Date Type Department Care Team Description 07/28/2018 Office Visit Department of Kaden Pineda Rotator Cu ff Repair Orthopedic Surgery in [place] Shoulder Status Post [place], [place] [address] (Primary Dx) [address] [place] [phone] Social History Tobacco Use Types Packs/Day Years [...] you attend druze or Patient refused 2020 pentecostalism services? Do [...] documented as of this encounter Progress Notes Kaden Pineda M.D. - 07/28/2018 1:15 PM CDT HPI: Alon returns to clinic 3 months out from a left shoulder arthroscopic rotator cuff repair, slap repair, and open biceps tenodesis performed on 04/28/2018. At his last visit, he had not yet set up physical therapy. He was doing well at that point. About 2 weeks after I saw him he was lifting his son against our restrictions and felt a pop in the shoulder. He then had another injury last week where hewas lifting with his arm away from his body at work and felt a tear. He has a burning pain on the side of the shoulder. He has not been in physical therapy since this episode. It feels similar to did prior to surgery per PHYSICAL EXAM: On exam of his left shoulder, his incisions are well healed. Actively can abduct to 110??. Passing up to 160??. He has some tenderness over the rotator cuff and biceps tendon. His biceps appears intact. He is neurovascular intact. He has weakness with abduction but is not stress him too much as he hasnot really started strengthening yet. ASSESSMENT AND PLAN: Alon is 3 months out from a left shoulder arthroscopic rotator cuff repair, slap repair, and open biceps. Unfortunately he has been lifting with his arm away from his body since about 6 weeks postop despite our instructions not to. I did renew his physical therapy. I want to try to take it easy. It is too early to get a new MRI. I want to see him back in clinic in 2 months. If he is still having a lot of pain and weakness at that point, then likely would have to get an MR arthrogram. documented in this encounter Plan of Treatment Not on filedocumented as of this encounter Visit Diagnoses Diagnosis Rotator Cuff Repair Shoulder Status Post - Primary documented in this encounter Care Teams Clinical Nursing Intern Relationship Specialty Start Date End Date Markos Claire, ELA, C.N.P. PCP - General 03/26/17 02/27/[address] [phone] documented as of this encounter
--- OUTSIDE RECORDS SUMMARY | 2022-08-19 06:56 | XMS_ITS | Encounter Summary ---
:1975 Author Organization [facility] Address [address] [place] [address] Care Team Providers Name Role Phone Markos Claire APRN C.N.P. Primary Care Provider Reason for Referral MRI/CAT/PET Scan (Routine) - Closed Specialty Diagnoses / Procedures Referred By Contact Refer red To Contact Radiology Diagnoses Rotator Cuff Repair Shoulder Status Post Kaden Pineda M.D. [facility] [place] [facility] Procedures MR Shoulder Arthrogram Left [place] MRI UPR EXT JOINT W CNTRST [facility] MRI UPR EXT JOINT W CNTRST [address] [place] [phone] Referral ID Status Reason Start Date Expiration Date Visits Requ ested Visits Authorized [id number] Closed 09/06/2018 09/06/2019 1 1 ESSING OPERATOR Reason for Visit MRI/CAT/PET Scan (Routine) - Closed Specialty Diagnoses / Procedures Referred By Contact Refer red To Contact Radiology Diagnoses Rotator Cuff Repair Shoulder Status Post Kaden Pineda M.D. [facility] [place] [facility] Procedures MR Shoulder Arthrogram Left [place] MRI UPR EXT JOINT W CNTRST HC MRI UPR EXT JOINT W CNTRST [address] [place] [address] [phone] Referral ID Status Reason Start Date Expiration Date Visits Requ ested Visits Authorized [id number] Closed 09/06/2018 09/06/2019 1 1 Encounter Details Date Type Department Care Team Description 09/14/2018 Hospital Encounter Department of Edwin Rotator Cuff Repair Radiology in Kaden Roldan M.D. Shoulder Status Post [place], [place] [address] [place] [phone] Social History Tobacco Use Types Packs/Day Years [...] you attend islam or Patient refused 2020 alevism services? Do you belong to any clubs [...] by 0 (for_TYLENOL) 500 mg mouth. tablet naproxen (NAPROSYN) 500 Take 1 tablet (500 60 tablet 0 02/1111/05/2018 mg tablet mg total) by mouth 2 (two) times a day as needed for pain (pain). dextroamphetamine-ampheta Take 1 tablet (5 mg 60 tablet 0 0 06/26/2018 10/28/2018 mine (ADDERALL) 5 mg total) by mouth 2 tablet (two) times a day Earliest Fill Date: 06/25/18. CSA 09/10/16 dextroamphetamine-ampheta Take 1 tablet (5 mg 60 tablet 0 1 10/28/2017 09/29/2018 mine (ADDERALL) 5 mg total) by mouth 2 tablet (two) times a day Earliest Fill Date: 08/28/18. CSA 09/10/16 HYDROcodone-acetaminophen Take 1 tablet by 45 tablet 0 05/1310/28/2018 (NORCO) 5-325 mg per mouth every 6 (six) tablet hours as needed for pain or severe pain or score 7-10 of 10. HYDROcodone-acetaminophen Take 1-2 tablets by 30 tablet 0 0 06/17/2018 10/28/2018 (NORCO) 5-325 mg per mouth every 6 (six) tablet hours as needed for pain. nortriptyline (PAMELOR) TAKE ONE CAPSULE BY 90 capsule 3 03/15/2019 50 mg capsule MOUTH ONCE DAILY documented as of this encounter Plan of Treatment Not on filedocumented as of this encounter Procedures Procedure Name Priority Date/Time Associated Comments Diagnosis MR SHOULDER RAD - Routine 09/14/2018 12:01 Rotator Cuff Results fo r this ARTHROGRAM LEFT (most inpatients PM PROCESSING OPERATOR Repair Shoulder proce dure are in and all Status Post the results outpatients) section. documented in this encounter Results MR Shoulder Arthrogram Left (09/14/2018 12:01 PM PROCESSING OPERATOR) Anatomical Region Laterality Modality Upper Extremity, Shoulder, Musculoskeletal RST LOS, Left Magnetic Resonance Musculoskeletal ARZ LOS, Muskuloskeletal FLA LOS Specimen (Source) Anatomical Collection Method Collection Time Re ceived Time Location / / Volume Laterality 09/14/2018 2:39 PM PROCESSING OPERATOR Impressions 09/14/2018 2:54 PM PROCESSING OPERATOR IMPRESSION: 1. ??Full-thickness tear supraspinatus-i nfraspinatus tendon conjoined attachment. 2. ??Postop SLAP repair without recurren t labral tear. 3. ??Subpectoral biceps tenodesis. 4. ??Acromioplasty. Narrative 09/14/2018 2:54 PM PROCESSING OPERATOR EXAM: MR SHOULDER ARTHROGRAM LEFT COMPARISON: MRI 03/29/18. Radiographs 3 . FINDINGS: MARROW: No fractures or contusions. SYNOVIUM: Distended with gadolinium cont rast as expected for arthrogram. GLENOHUMERAL ARTICULAR CARTILAGE: Articu lar cartilage has no defects. GLENOID LABRUM: Postop SLAP repair. Nega tive for recurrent labral tear. LONG HEAD BICEPS TENDON: Postop open sub pectoral biceps tenodesis. ROTATOR CUFF TENDONS: Postop rotator cuf f repair of supraspinatus tendon. The conjoined tendon attachment of the supra spinatus and infraspinatus tendons has full-thickness defect compatible with te ar that measures 1.6 cm medial-lateral by 1.0 cm anterior-posterior (series 5 i mage 8, series 7 image 5, series 4 image 8). Gadolinium contrast tracks through t he tear into the bursa. No retraction. Normal subscapularis and teres minor ten dons. SUBDELTOID/SUBACROMIAL BURSA: There is g adolinium fluid distention of the bursa that is due to the rotator cuff defect. MUSCLES: No atrophy or edema of rotator cuff or deltoid muscles. ACROMIOCLAVICULAR JOINT: Postop subacrom ial decompression with acromioplasty. Subchondral cysts at the joint. Procedure Note Kanu Agrawal M.D. - 09/14/2018 EXAM: MR SHOULDER ARTHROGRAM LEFT COMPARISON: MRI 03/29/18. Radiographs 02/11 . FINDINGS: MARROW: No fractures or contusions. SYNOVIUM: Distended with gadolinium cont rast as expected for arthrogram. GLENOHUMERAL ARTICULAR CARTILAGE: Articu lar cartilage has no defects. GLENOID LABRUM: Postop SLAP repair. Nega tive for recurrent labral tear. LONG HEAD BICEPS TENDON: Postop open sub pectoral biceps tenodesis. ROTATOR CUFF TENDONS: Postop rotator cuf f repair of supraspinatus tendon. The conjoined tendon attachment of the supra spinatus and infraspinatus tendons has full-thickness defect compatible with te ar that measures 1.6 cm medial-lateral by 1.0 cm anterior-posterior (series 5 i mage 8, series 7 image 5, series 4 image 8). Gadolinium contrast tracks through t he tear into the bursa. No retraction. Normal subscapularis and teres minor ten dons. SUBDELTOID/SUBACROMIAL BURSA: There is g adolinium fluid distention of the bursa that is due to the rotator cuff defect. MUSCLES: No atrophy or edema of rotator cuff or deltoid muscles. ACROMIOCLAVICULAR JOINT: Postop subacrom ial decompression with acromioplasty. Subchondral cysts at the joint. IMPRESSION: 1. Full-thickness tear supraspinatus-inf raspinatus tendon conjoined attachment. 2. Postop SLAP repair without recurrent labral tear. 3. Subpectoral biceps tenodesis. 4. Acromioplasty. Kaden CHAMBERS MRI PROCEDURES documented in this encounter Visit Diagnoses Diagnosis Rotator Cuff Repair Shoulder Status Post documented in this encounter Care Teams Regional Sales Director Relationship Specialty Start Date End Date Markos Claire, ELA, C.N.P. PCP - General 03/26/17 02/27/[address] [phone] documented as of this encounter
--- OUTSIDE RECORDS SUMMARY | 2022-08-19 06:56 | XMS_ITS | Encounter Summary ---
:1975 Author Organization [facility] Address [address] [place] [address] Care Team Providers Name Role Phone Markos Claire APRN C.N.P. Primary Care Provider [phone] Reason for Visit Reason Comments Post-op DOS 04/28/18 Left shoulder A rthroscopy Post-op Outpatient (Routine) - Closed Specialty Diagnoses / Procedures Referred By Contact Refer red To Contact Orthopedic Surgery Diagnoses Lesion Superior Glenoid Labrum Initial Left Pain Shoulder Left Kaden Pineda, [facility] [address] [place] [address] Referral ID Status Reason Start Date Expiration Date Visits Requ ested Visits Authorized [id number] Closed 03/31/2018 03/31/2019 1 1 Encounter Details Date Type Department Care Team Description 05/12/2018 Office Visit Department of Anna Edmondson, Lesion Shi perior Glenoid Labrum Initial Left (Primary Dx); Orthopedic Surgery in P.A.-C. Pain Shoulder Left [place], [place] [address] [place] [phone] Social History Tobacco Use [...] or relatives? How often do you attend quaker or Patient refused 2020 rastafari services? Do you belong to any clubs or No 07/17/2021 organizations such as quaker groups, unions, fraternal or athletic groups, or [...] Taken Comments Blood Pressure - - Pulse 65 05/12/2018 12:57 PM CDT Temperature - - Respiratory Rate 17 05/12/2018 12:57 PM CDT Oxygen Saturation - - Inhaled Oxygen Concentration - - Weight - - Height - - Body Mass Index - - documented in this encounter Progress Notes Anna Edmondson P.A.-C. - 05/12/2018 1:15 PM CDT PRIMARY CARE PROVIDER Markos Claire APRN, C.N.P. CHIEF COMPLAINT/REASON FOR VISIT Two week postoperative recheck of left shoulder arthroscopy withsubacromial decompression, rotator cuff repair, superior labrum anterior to posterior lesion repair and open subpectoral biceps tenodesis. HISTORY OF PRESENT ILLNESS Alon Jaimes is a very pleasant 42 y.o. year-old male who presents today for 2 week postop recheck of the above-stated procedure performed by Dr. Pineda on 04/28/2018. Patient reports that he is doing very well. He has not started physical therapy. Denies any issues with swelling, numbness, tingling, or extreme pain. No fever chills night sweats, nausea, or vomiting. He does report that his son landed on his arm at 1 point but reports no increased pain. He does state he feels he could return to work on Thursday with light duty work only. PHYSICAL EXAMINATION GENERAL: This is a well-nourished, well-developed, male. Alert and oriented x3 in no acute distress.Cooperative and responds appropriately to all questions. MUSCULOSKELETAL: Examination of the right shoulder reveals 3 well-healing, well- approximated, portalincision sites. These are clean, dry, and intact without signs of infection. Neurovascularly intact distally. Capillary refill less than 2 seconds. Demonstrates full elbow, wrist and finger range of motion. IMPRESSION/REPORT/PLAN Two weeks status post left shoulder arthroscopy with subacromial decompression, rotator cuff repair,superior labrum anterior to posterior lesion repair and open subpectoral biceps tenodesis performed by Dr. Pineda on 04/28/2018. PLAN: Alon Jaimes is doing well. At this point, we did discuss that he can introduce anti-inflammatories such as ibuprofen or Aleve in addition to Tylenol or pain medications. This should allow him to cut down on narcotic pain medications. We did recommend continuing with the icing. I did give him return in work note with restrictions. These restrictions apply until he returns to clinic on 06/07/2018. All questions were answered to the patient's satisfaction. We will plan on seeing patientback in 4 weeks for recheck with Dr. Pineda. This note has been written using fluency direct voice recognition dictation. Typographical errors may occur. For any concerns regarding accuracy or clarification of this note, please contact the author. documented in this encounter Procedure Notes Maria Ines Flores, WillaPLatrice. - 05/12/2018 1:15 PM CDTAssociated Order(s): SUTURE REMOVAL Post-Procedure Diagnose(s): Lesion Superior Glenoid Labrum Initial Left Suture removal Date/Time: 05/12/2018 4:04 PM Performed by: MARIA INES FLORES Authorized by: ANNA EDMONDSON Pre-procedure details: Sutures were placed at [place] facility: no Indicaton: scheduled suture removal Location: Upper extremity Upper extremity location: Shoulder Shoulder location: Left shoulder Procedure details: Wound appearance: Good approximation of wound edges Post-procedure details: Procedure completed successfully: yes Complications: no immediate complications documented in this encounter Plan of Treatment Not on filedocumented as of this encounter Procedures Procedure Name Priority Date/Time Associated Diagnosis Comme nts SUTURE REMOVAL Routine 05/12/2018 1:15 PM Lesion Superior Resu lts for this CDT Glenoid Labrum procedure are in the Initial Left results section . documented in this encounter Results SUTURE REMOVAL (05/12/2018 1:15 PM CDT) Narrative MMODAL - 05/12/2018 1:15 PM CDT Maria Ines Flores L.P.N. ? 05/12/2018 ??4:06 PM Suture removal Date/Time: 05/12/2018 4:04 PM Performed by: MARIA INES FLORES Authorized by: ANNA EDMONDSON Pre-procedure details: ??Sutures were placed at [place] facility: no ?Indicaton: scheduled suture removal ?Location: ??Upper extremity ??Upper extremity location: ??Shoulder ??Shoulder location: ??Left shoulder Procedure details: ??Wound appearance: ??Good approximatio n of wound edges Post-procedure details: ??Procedure completed successfully: yes ?Complications: no immediate complicat ions ?? Anna Edmondson P.A.-C. PROCEDURE/MINOR SURGICAL ORD ERABLES Performing Organization Address City/State/ZIP Code Phon e Number MMODAL MMODAL NA documented in this encounter Visit Diagnoses Diagnosis Lesion Superior Glenoid Labrum Initial L eft - Primary Pain Shoulder Left documented in this encounter Care Teams Banana Loader Relationship Specialty Start Date End Date Markos Claire, ELA, C.N.P. PCP - General 03/26/17 02/27/19 [address], [place] [address] documented as of this encounter
--- OUTSIDE RECORDS SUMMARY | 2022-08-19 06:56 | XMS_ITS | Encounter Summary ---
:1975 Author Organization [facility] Address [address] [place] [address] Care Team Providers Name Role Phone Markos Claire APRN, C.N.P. Primary Care Provider [phone] Reason for Visit Reason Onset Date Comments Med Refill 05/05/2018 Encounter Details Date Type Department Care Team Description 05/05/2018 Clinical Communication Department of Kaden Tellez Med Refill Medicine, Primitivo Roldan M.D. [facility], [facility], [address] [place], [place] [address] [address] [place], [place] [phone] (Work) [phone] Social History Tobacco Use Types Packs/Day Years [...] you attend spiritism or Patient refused 2020 methodist services? Do [...] to pay for the very basics like [employer] hat hard 07/17/2021 food, housing, medical [...] encounter Miscellaneous Notes Telephone Encounter - Therese Guillaume, C.M.A. - 05/05/2018 4:12 PM CDT See other communication note that was routed to Shaneka Barrera and Derrick Edmondson Telephone Encounter - Dinga Morley - 05/05/2018 3:43 PM CDT Had left shoulder surgery last week. His son jumped in the bed and landed on his shoulder and he's having a lot of pain now. Also needs the pain meds refilled. Percoset. Call Alon [phone] documented in this encounter Plan of Treatment Not on filedocumented as of this encounter Visit Diagnoses Not on filedocumented in this encounter Care Teams Transportation Driver Relationship Specialty Start Date End Date Markos Claire, ELA, C.N.P. PCP - General 03/26/17 02/27/19 [address], [place] [address] documented as of this encounter
--- OUTSIDE RECORDS SUMMARY | 2022-08-19 06:56 | XMS_ITS | Encounter Summary ---
:1975 Author Organization [facility] Address [address] [place] [address] Care Team Providers Name Role Phone Markos Claire APRN, C.N.P. Primary Care Provider [phone] Encounter Details Date Type Department Care Team Description 05/12/2018 Abstract Department of Family Medicine, Provider, Historical [facility], in [place], [place] [address] [place] [address] Social History Tobacco Use Types Packs/Day Years [...] you attend anabaptist or Patient refused 2020 sikhism services? Do [...] on filedocumented in this encounter Care Teams Airbrush Artist Relationship Specialty Start Date End Date Markos Claire, ELA, C.N.P. PCP - General 03/26/17 02/27/[address] [phone] documented as of this encounter
--- OUTSIDE RECORDS SUMMARY | 2022-08-19 06:56 | XMS_ITS | Encounter Summary ---
:1975 Author Organization [facility] Address [address] [place] [address] Care Team Providers Name Role Phone Markos Claire APRN, C.N.P. Primary Care Provider [phone] Encounter Details Date Type Department Care Team Description 06/24/2018 Clinical Communication Department of Sleep Angela Claire, Medicine in [place], ELA, C.N. P. [address] [facility] [place] [phone] Social History Tobacco Use Types Packs/Day Years [...] you attend advent or Patient refused 2020 mormon services? Do [...] Telephone Encounter - Florinda Flynn C.M.A. - 06/24/2018 2:05 PM CDT Called Alon. A couple days ago, he picked up his son on accident when he climbed into his bed. Since then has been having a lot of bicep pain, shooting and burning pain. Alon is concerned that he messed something up and would like to be seen. He inquired about possibly getting another MRI to check the shoulder, explained to the patient that it is too early for an MRI. He still wants to be seen, andhas enough [place] from his Rx given by Dr. Pineda on 06/17 to get him till Thursday. Patient scheduledto see Derrick on Thursday06/28/18 at 830 check in. FYI to provider Telephone Encounter - Brenda Potter - 06/24/2018 1:48 PM CDT Forward to Edwin nurse Telephone Encounter - Brenda Potter - 06/24/2018 1:47 PM CDT Patient is returning your call - please call him back at [phone] Telephone Encounter - Adeline Mari L.P.N. - 06/24/2018 1:38 PM CDT Left message to call back. Telephone Encounter - Vale Flynn - 06/24/2018 11:34 AM CDT Patient calling requesting a rx for Tylenol #3 due to a recent shoulder surgery documented in this encounter Plan of Treatment Not on filedocumented as of this encounter Visit Diagnoses Not on filedocumented in this encounter Care Teams Unit Coordinator Relationship Specialty Start Date End Date Markos Claire APRN, C.N.P. PCP - General 03/26/17 02/27/19 [address] [place] [phone] documented as of this encounter
--- OUTSIDE RECORDS SUMMARY | 2022-08-19 06:56 | XMS_ITS | Encounter Summary ---
:1975 Author Organization [facility] Address [address] [place] [address] Care Team Providers Name Role Phone Markos Claire APRN, C.N.P. Primary Care Provider [phone] Reason for Visit Reason Comments Fever Encounter Details Date Type Department Care Team Description 10/12/2018 Emergency [facility] Influenza Like Illness (Prim nino Dx); [address] Sepsis (HCC) [place] [address] Social History Tobacco Use Types Packs/Day [...] you attend mandaeism or Patient refused 2020 congregation services? Do [...] tablet (5 mg 60 tablet 0 1 11/30/2017 10/28/2018 mine (ADDERALL) 5 mg total) by mouth 2 tablet (two) times a day Earliest Fill Date: 09/29/18. CSA 09/10/16 HYDROcodone-acetaminophen Take 1 tablet by [...] Name Priority Date/Time Associated Comments Diagnosis DX CHEST AP OR PA RAD - Semiurgent 10/12/2018 6:35 Sepsis (HCC) Res ults for this AND LATERAL 2 (Fast; most ED AM UTILITY TRACTOR OPERATOR procedure ar e in VIEWS patients; some the results inpatients) section. documented in this encounter Results DX Chest AP or PA and Lateral 2 Views (10/12/2018 6:35 AM UTILITY TRACTOR OPERATOR) Anatomical Region Laterality Modality Chest, Thoracic RST LOS, Thoracic ARZ LOS, Thoracic N/A Digital Radiography FLA LOS Specimen (Source) Anatomical Collection Method Collection Time Re ceived Time Location / / Volume Laterality 10/12/2018 12:07 PM UTILITY TRACTOR OPERATOR Impressions 10/12/2018 12:08 PM UTILITY TRACTOR OPERATOR IMPRESSION: Left lower lobe retrocardiac 6 cm consolidation is likely pneumonia. Suggest six-week followup chest radiogra phs to assure resolution. Heart size normal. Narrative 10/12/2018 12:08 PM UTILITY TRACTOR OPERATOR EXAM: DX CHEST AP OR PA AND LATERAL 2 VIEWS Procedure Note Kanu Agrawal M.D. - 10/12/2018 EXAM: DX CHEST AP OR PA AND LATERAL 2 EWS IMPRESSION: Left lower lobe retrocardiac 6 cm consolidation is likely pneumonia. Suggest six-week followup chest radiogra phs to assure resolution. Heart size normal. Allen Hilliard M.D. [facility] SHASHI MARTIN documented in this encounter Visit Diagnoses Diagnosis Influenza Like Illness - Primary Sepsis (HCC) documented in this encounter Care Teams [employer] Lead Ads Marketing Relationship Specialty Start Date End Date Markos Claire, ELA, C.N.P. PCP - General 03/26/17 02/27/[address] [phone] documented as of this encounter
--- OUTSIDE RECORDS SUMMARY | 2022-08-19 06:56 | XMS_ITS | Encounter Summary ---
:1975 Author Organization [facility] Address [address] [place] [address] Care Team Providers Name Role Phone Markos Claire APRN, C.N.P. Primary Care Provider [phone] Reason for Visit Reason Comments Post-op RCR slap repair DOS 04/28/18 . Pain Appointment Request (Routine) - Closed Specialty Diagnoses / Procedures Referred By Contact Refer red To Contact Orthopedic Surgery Referral ID Status Reason Start Date Expiration Date Visits Requ ested Visits Authorized [id number] Closed 06/24/2018 06/24/2019 1 Encounter Details Date Type Department Care Team Description 06/28/2018 Office Visit Department of Derrick Edmondson, Rotator C uff Repair Orthopedic Surgery in P.[place].-[place]. Shoulder Status Post [place], [place] [address] (Primary Dx) [address] [place] [phone] Social History Tobacco Use Types Packs/Day Years [...] you attend confucianist or Patient refused 2020 church services? Do [...] or slept in a fdc (including now)? Sex Assigned at Date Recorded Not on file documented as of this encounter Last Filed Vital Signs Vital Sign Reading Time Taken Comments Blood Pressure - - Pulse 62 06/28/2018 8:23 AM CDT Temperature - - Respiratory Rate 16 06/28/2018 8:23 AM CDT Oxygen Saturation - - Inhaled Oxygen Concentration - - Weight 71.2 kg (156 lb 15.5 oz) 06/28/2018 8:23 AM CDT Height - - Body Mass Index 25.96 03/31/2018 1:55 PM CDT documented in this encounter Progress Notes Derrick Edmondson P.A.-C. - 06/28/2018 8:45 AM CDT HPI: Alon returns to clinic approximately 9 weeks out from a left shoulder arthroscopic rotator cuff repair, slap repair, and open biceps tenodesis performed on 04/28/2018. He reports that on 06/24/2018 hewas lifting his son in bed when he felt a pop on the anterior aspect of his left shoulder. He states that since that time he has had significant increased pain in his left shoulder both on the anterioraspect and laterally on the shoulder. He states that he did have mild bruising on the anterior aspect of his shoulder. He has not been to therapy since this occurred. He reports he has been icing and using ibuprofen. He has also been using his postoperative pain medications. He continues on restrictions at work. He has physical therapy scheduled for Thursday and of this week. PHYSICAL EXAM: Musculoskeletal: Examination of the left shoulder reveals no obvious deformity of the biceps tendon/muscle. He demonstrates forward flexion to approximately 105??. He reports pain with pronation supination of the forearm as well as elbow flexion. Biceps tendon is palpable. No increased deformity with resisted elbow flexion. IMAGING: None obtained today. ASSESSMENT AND PLAN: Alon is currently 9 weeks out from a left shoulder arthroscopic rotator cuff repair, slap repair, and open biceps tenodesis performed by Dr. Pineda on 04/28/2018. Approximately 4 days ago he felt apop in his shoulder. Given his exam today I believe he may have torn some scar tissue in the area ofthe biceps tendon. I do not believe he detached the fixation there as he does not have any increasedpop-eye deformity. Therefore I have recommended that he continue with icing, 500 mg of naproxen twice daily with food and continue his physical therapy. He will also continue with his work restrictionsat this time. We did discuss that he is too early for any sort of repeat MRI. He does have a return a ppointment with Dr. Pineda on 07/23/2018. If he is not seen good improvement by then Dr. Pnieda can reassess him and the necessity for additional imaging at that time. All questions were answered to patient's satisfaction. documented in this encounter Plan of Treatment Not on filedocumented as of this encounter Visit Diagnoses Diagnosis Rotator Cuff Repair Shoulder Status Post - Primary documented in this encounter Care Teams Manager Graphic Relationship Specialty Start Date End Date Markos Claire, ELA, C.N.P. PCP - General 03/26/17 02/27/[address] [address] documented as of this encounter
--- OUTSIDE RECORDS SUMMARY | 2022-08-19 06:56 | XMS_ITS | Encounter Summary ---
:1975 Author Organization [facility] Address [address] [place] [address] Care Team Providers Name Role Phone Markos Claire APRN, C.N.P. Primary Care Provider [phone] Encounter Details Date Type Department Care Team Description 04/28/2018 Clinical Communication Department of Internal Lorna Sadler, [facility] [address] [place] [phone] Social History Tobacco Use Types Packs/Day Years [...] or relatives? How often do you attend taoism or Patient refused 2020 mormonism services? Do you belong to any clubs or No 07/17/2021 organizations such as taoism groups, unions, fraternal or athletic groups, or [...] this encounter Miscellaneous Notes Telephone Encounter - Lorna Sadler L.P.N. - 04/28/2018 9:27 AM CDT Rx for dextroamphetamine-amphetamine taken to information desk. documented in this encounter Plan of Treatment Not on filedocumented as of this encounter Visit Diagnoses Not on filedocumented in this encounter Care Teams Cook Specialty Relationship Specialty Start Date End Date Markos Claire, ELA, C.N.P. PCP - General 03/26/17 02/27/19 [address] [place] [address] documented as of this encounter
--- OUTSIDE RECORDS SUMMARY | 2022-08-19 06:56 | XMS_ITS | Encounter Summary ---
:1975 Author Organization [facility] Address [address] [place] [address] Care Team Providers Name Role Phone Anthony Carpenter APRN, C.N.P., M.S.N. Primary Care Provider + Reason for Visit Reason Onset Date Comments Med Refill 06/17/2018 Encounter Details Date Type Department Care Team Description 06/17/2018 Clinical Communication Department of [facility] Vernon Claire am, Med Refill Medicine, Dewar ELA, C.N.P. [facility], in [facility] [address] [place], [place] [address] [address] [place] [address] [facility] [phone] Social History Tobacco Use Types Packs/Day Years [...] you attend methodist or Patient refused 2020 sikh services? Do [...] to pay for the very basics like [employer] hat hard 07/17/2021 food, housing, medical care, [...] Telephone Encounter - Isa Jerez L.P.N. - 06/18/2018 8:50 AM CDT Called pt and notified of Dr Pineda's recommendation, pt will be picking up prescription today atinfo desk. Telephone Encounter - Isa Jerez L.P.N. - 06/17/2018 3:30 PM CDT Left message for patient to call back Telephone Encounter - Kaden Pineda M.D. - 06/17/2018 3:23 PM CDT Refill written. He needs to wean off the Southside. This will be his last narcotic, and we will transition him to Tramadol if he still needs something after this Rx is out. Telephone Encounter - Marilyn Yi - 06/17/2018 1:33 PM CDT Pt is almost out of Southside 5-325, he would like the RX filled, he said he is taking it as prescribed.Please call pt and advise. Telephone Encounter - Isa Jerez L.PPatriciaN. - 06/17/2018 1:17 PM CDT Pt had a left shoulder arthroscopy done on 04/28/[address] Pineda, last refill of Southside was 06/07/18 #45 tablets given Telephone Encounter - Julio Champagne - 06/17/2018 11:48 AM CDT Patient called regarding hid norco rx, almost out and would like a refill. [phone] documented in this encounter Plan of Treatment Not on filedocumented as of this encounter Visit Diagnoses Not on filedocumented in this encounter Additional Health Concerns Infection Onset Date Last Indicated Resolved Time COVID19 Pending 03/12/2020 03/12/2020 03/12/2020 7:45 PM CDT documented as of this encounter Care Teams Order Expediter Relationship Specialty Start Date End Date Anthony Carpenter, ELA, C.N.P., PCP - General Family Medicine M.S.N. [address] [place] [phone] documented as of this encounter
--- OUTSIDE RECORDS SUMMARY | 2022-08-19 06:56 | XMS_ITS | Encounter Summary ---
:1975 Author Organization [facility] Address [address] [place] [address] Care Team Providers Name Role Phone Markos Claire APRN, C.N.P. Primary Care Provider [phone] Encounter Details Date Type Department Care Team Description 06/07/2018 Clinical Communication Department of [facility] Vernon Claire am, Medicine, Leander ELA, C.N.P. [facility], [facility] [address] [place], [place] [address] [address] [place] [address] [facility] [phone] Social History Tobacco Use Types Packs/Day Years [...] you attend sabianism or Patient refused 2020 christianity services? Do [...] to pay for the very basics like [employer] hat hard 07/17/2021 food, housing, medical care, [...] slept in a long term (including now)? Sex Assigned at Date Recorded Not on file documented as of this encounter Plan of Treatment Not on filedocumented as of this encounter Visit Diagnoses Not on filedocumented in this encounter Care Teams Magnetic Prospecting Operator Relationship Specialty Start Date End Date Markos Claire, ELA, C.N.P. PCP - General 03/26/17 02/27/[address] [phone] documented as of this encounter
--- OUTSIDE RECORDS SUMMARY | 2022-08-19 06:56 | XMS_ITS | Encounter Summary ---
:1975 Author Organization [facility] Address [address] [place] [address] Care Team Providers Name Role Phone Markos Claire APRN, C.N.P. Primary Care Provider [phone] Encounter Details Date Type Department Care Team Description 06/07/2018 Clinical Communication Department of [facility] Vernon Claire am, Medicine, [place] ELA, C.N.P. [facility], [facility] [address] [place], [place] [address] [address] [place] [address] [facility] [phone] Social History Tobacco Use Types Packs/Day Years [...] or relatives? How often do you attend restoration or Patient refused 2020 jainism services? Do you belong to any clubs or No 07/17/2021 organizations such as restoration groups, unions, fraternal or athletic groups, or [...] to pay for the very basics like [employer] hat hard 07/17/2021 food, housing, medical care, [...] Telephone Encounter - Makayla Chadwick L.P.N. - 06/07/2018 2:38 PM CDT Patient called and notified of change in pain medication from Percocet to Bulverde and prescriber recommendations for patient to begin weaning off of narcotics. Rx placed at information desk for patient to sweet pickled fruit maker today. Addendum Note - Anna Edmondson P.A.-C. - 06/07/2018 1:46 PM CDT Addended by: ANNA EDMONDSON on: 06/07/2018 01:46 PM Modules accepted: Orders Telephone Encounter - Evette Soni - 06/07/2018 12:56 PM CDT Pt called needing a refill on RX percocet. [facility]. Please call back at [phone] documented in this encounter Plan of Treatment Not on filedocumented as of this encounter Visit Diagnoses Not on filedocumented in this encounter Care Teams Mill Laborer Relationship Specialty Start Date End Date Markos Claire APRN, C.N.P. PCP - General 03/26/17 02/27/19 [address] [address] [phone] (work) documented as of this encounter
--- OUTSIDE RECORDS SUMMARY | 2022-08-19 06:56 | XMS_ITS | Encounter Summary ---
:1975 Author Organization [facility] Address [address] [place] [address] Care Team Providers Name Role Phone Markos Claire APRN, C.N.P. Primary Care Provider [phone] Reason for Visit Reason Onset Date Comments Short Term Disability 05/13/2018 Encounter Details Date Type Department Care Team Description 05/13/2018 Clinical Communication Department of Rita Pineda [facility] Orthopedic Surgery Kaden Roldan M.D. Disability in [place], [address] [address] [place] [phone] Social History Tobacco Use Types Packs/Day Years [...] you attend anabaptist or Patient refused 2020 caodaism services? Do [...] to pay for the very basics like [employer] hat hard 07/17/2021 food, housing, medical care, [...] Telephone Encounter - Florinda Flynn C.M.A. - 05/14/2018 1:21 PM CDT Please see original message from [employer]. Telephone Encounter - Derrick Edmondson P.A.-C. - 05/14/2018 11:25 AM CDT I've entered a response to the patient's message below. Response to the message: Please fax my recent progress note and work restrictions to his short-term disability provider. Telephone Encounter - Zully Noyola - 05/13/2018 2:10 PM CDT Patient called - he had surgery with Dr Pineda on 04/28/18 on left shoulder. He had a f/u with Derrick Edmondson yesterday (05/12/18) His short term disability ([employer]) is stating that they need more information about his recovery plans. Their fax number is: [phone]. He states that they are not wanting to pay him until they get more information. If questions, please call Alon at [phone] documented in this encounter Plan of Treatment Not on filedocumented as of this encounter Visit Diagnoses Not on filedocumented in this encounter Care Teams Tag Meter Operator Relationship Specialty Start Date End Date Markos Claire, ELA, C.N.P. PCP - General 03/26/17 02/27/[address] [address] documented as of this encounter
--- OUTSIDE RECORDS SUMMARY | 2022-08-19 06:56 | XMS_ITS | Encounter Summary ---
:1975 Author Organization [facility] Address [address] [place] [address] Care Team Providers Name Role Phone Markos Claire APRN, C.N.P. Primary Care Provider [phone] Reason for Visit Reason Comments Follow-up Outpatient (Routine) - Closed Specialty Diagnoses / Procedures Referred By Contact Refer red To Contact Orthopedic Surgery Kaden Pineda [facility] M.D. [address] [place] [address] Referral ID Status Reason Start Date Expiration Date Visits Requ ested Visits Authorized [id number] Closed 09/06/2018 09/06/2019 1 1 Encounter Details Date Type Department Care Team Description 09/17/2018 Office Visit Department of Kaden Pineda And Orthopedic Surgery in [place] Tendons Rotator Cuff [place], [place] [address] Left Shoulder [address] [place], [place] Subsequent [place] [address] Dx) [phone] Social History Tobacco Use Types Packs/Day [...] you attend buddhism or Patient refused 2020 restoration services? Do you belong to any clubs or No 07/17/2021 organizations such as buddhism groups, unions, [employer]itness [employer] or athletic groups, or school groups? How [...] encounter Progress Notes Kaden Pineda M.D. - 09/17/2018 9:45 AM CST HPI: Alon returns to clinic for follow-up of a left shoulder MRI. He underwent a left shoulder arthroscopic rotator cuff repair, slap repair, and open biceps tenodesis in April of this year. He subsequentlyrepeatedly violated his lifting restrictions. At 1 point he was lifting his son and felt a pop in his shoulder. He then had another injury where he was lifting his arm away from his body and felt a tear. PHYSICAL EXAM: On exam of his left shoulder, his incisions are well healed. Actively can abduct to 110??. PassivelyI can get up to 160??. He has some tenderness over the rotator cuff and biceps tendon. His biceps appears intact. He is neurovascular intact. He has weakness with abduction but is not stress him too much as he has not really started strengthening yet. IMAGING: MR arthrogram is reviewed. Is slap repair is intact. He has a small full- thickness tear at the conjoint attachment of the supraspinatus and infraspinatus. ASSESSMENT AND PLAN: Alon is a 42-year-old gentleman who is 5 months out from a left shoulder arthroscopic rotator cuff and slap repair. He did not follow restrictions postoperatively and re-injured his shoulder while lifting against his restrictions. He has a very small but full-thickness appearing tear in his rotator cuff at the site of the previous repair. It is always a little difficult to tell if this is still a healing tear but he is 5 months out. We have lengthy discussion. At this point, he does not want to go through restrictions again. I renewed his physical therapy. If this does not get her shoulder feelingbetter and he wants this repaired again, he will contact us. I did stress to him the importance of following all of his postop restrictions if he decides to go through surgery again. DIEM PHYSICAL THERAPIST documented in this encounter Plan of Treatment Not on filedocumented as of this encounter Visit Diagnoses Diagnosis Strain Muscles And Tendons Rotator Cuff Left Shoulder Subsequent - Primary documented in this encounter Care Teams Ssn/Ssbn Assistant Navigator Relationship Specialty Start Date End Date Markos Claire, ELA, C.N.P. PCP - General 03/26/17 02/27/[address] [address] documented as of this encounter
--- OUTSIDE RECORDS SUMMARY | 2022-08-19 06:56 | XMS_ITS | Encounter Summary ---
:1975 Author Organization [facility] Address [address] [place] [address] Care Team Providers Name Role Phone Markos Claire APRN, C.N.P. Primary Care Provider [phone] Reason for Visit Reason Onset Date Comments Pain Management 05/05/2018 Encounter Details Date Type Department Care Team Description 05/05/2018 Clinical Communication Department of [facility], Pain Management Orthopedic Surgery Therese Weaver in [place], [facility] [address] [place] [phone] Social History Tobacco Use Types Packs/Day Years [...] you attend orthodox or Patient refused 2020 islam services? Do [...] Telephone Encounter - Florinda Flynn C.M.A. - 05/06/2018 8:45 AM CDT Patient informed of below. He will call if his pain does not improve or gets worse. Patient will picker feeder Rx at the information desk today. Addendum Note - Sasha Levin P.A.-C. - 05/06/2018 8:36 AM CDT Addended by: SASHA LEVIN on: 05/06/2018 08:36 AM Modules accepted: Orders Telephone Encounter - Sasha Levin P.A.-C. - 05/06/2018 8:34 AM CDT I'd say see if the pain gets better over the next couple of days and if not, could talk with Derrick on Thursday. (If continues to be severe, I could see tomorrow (Thursday)). I can refill his rx. Telephone Encounter - Therese Guillaume C.M.A. - 05/05/2018 4:07 PM CDT Patient stating his son was jumping on bed and landed on his shoulder. Patient states pain is more severe after the son landed on shoulder then what it was after surgery. DOS 04/28/18. Patient is questioning if he should be seen. Patient also request pain medication refill: OxyCodone-Acetaminophen 5-325mg po q 4hrs prn pain quantity 42 with 0 refills. RX written on 04/28/18. Patient states he has about 8 tabs left and is rating pain 10/10. Please advise documented in this encounter Plan of Treatment Not on filedocumented as of this encounter Visit Diagnoses Not on filedocumented in this encounter Care Teams Railcar Switcher Relationship Specialty Start Date End Date Markos Claire, ELA, C.N.P. PCP - General 03/26/17 02/27/[address] [phone] documented as of this encounter
--- OUTSIDE RECORDS SUMMARY | 2022-08-19 06:56 | XMS_ITS | Encounter Summary ---
:1975 Author Organization [facility] Address [address] [place] [address] Care Team Providers Name Role Phone Markos Claire APRN, C.N.P. Primary Care Provider [phone] Reason for Visit Reason Comments Med Refill Encounter Details Date Type Department Care Team Description 08/27/2018 Refill Department of Internal Medicine Roula Claire APRN, Med Refill in [facility] C.N.P. [address] [place] [address] [address] [place] [address] (Wo rk) Social History Tobacco Use Types [...] attend jehovah's witness or Patient refused 2020 buddhist services? Do [...] to pay for the very basics like [employer] hard 07/17/2021 food, housing, medical care, and [...] encounter Miscellaneous Notes Telephone Encounter - Florinda Godinez - 08/27/2018 2:15 PM CST Nurse review: Unable to pend medication; Stimulant Primary Provider: Markos Claire APRN, C.N.P. Name of medication: Adderall Strength: 5 mg tab Frequency: Take 1 tablet by mouth twice daily. Quantity: 60 Refills: Last Refill: 07/28/18 Pharmacy: [facility] documented in this encounter Plan of Treatment Not on filedocumented as of this encounter Visit Diagnoses Not on filedocumented in this encounter Care Teams Sheet Metal Supervisor Relationship Specialty Start Date End Date Markos Claire APRN, C.N.P. PCP - General 03/26/17 02/27/19 [address] [phone] documented as of this encounter
--- OUTSIDE RECORDS SUMMARY | 2022-08-19 06:56 | XMS_ITS | Encounter Summary ---
:1975 Author Organization [facility] Address [address] [place] [address] Care Team Providers Name Role Phone Markos Claire APRN, C.N.P. Primary Care Provider [phone] Reason for Visit Reason Comments Med Refill Encounter Details Date Type Department Care Team Description 05/19/2018 Refill Department of Internal Medicine Roula Claire APRN, Med Refill in [facility] C.N.P. [address] [place] [address] [address] [place] [address] (Wo rk) Social History Tobacco Use Types [...] you attend episcopalian or Patient refused 2020 church services? Do [...] to pay for the very basics like [employer] hard 07/17/2021 food, housing, medical care, and [...] encounter Miscellaneous Notes Telephone Encounter - Florinda Flynn, C.M.A. - 05/19/2018 9:37 AM CDT This was completed yesterday and picked up by the patient at the information desk. Telephone Encounter - Adeline Bowser - 05/19/2018 9:14 AM CDT Nurse review: FYI - Percocet was ordered through [facility], though printed. We received a request for this from [facility]. Does med need to be reordered? Primary Provider: Markos Claire APRN, C.N.P. Prescriber: Derrick Edmondson P.A.-C Name of medication: Disp Refills Start End oxyCODONE-acetaminophen (PERCOCET) 5-325 mg per tablet 42 tablet 0 05/17/2018 Sig - Route: Take 1-2 tablets by mouth every 4 (four) hours as needed (pain). - oral Class: Print Pharmacy: [facility] documented in this encounter Plan of Treatment Not on filedocumented as of this encounter Visit Diagnoses Not on filedocumented in this encounter Care Teams Recreation Coordinator Relationship Specialty Start Date End Date Markos Claire APRN, C.N.P. PCP - General 03/26/17 02/27/[address] [address] [phone] (work) documented as of this encounter
--- OUTSIDE RECORDS SUMMARY | 2022-08-19 06:56 | XMS_ITS | Encounter Summary ---
:1975 Author Organization [facility] Address [address] [place] [address] Care Team Providers Name Role Phone Markos Claire APRN, C.N.P. Primary Care Provider Reason for Referral Outpatient (Routine) - Closed Specialty Diagnoses / Procedures Referred By Contact Refer red To Contact Orthopedic Surgery Kaden Pineda [facility] M.D. [address] [place] [address] Referral ID Status Reason Start Date Expiration Date Visits Requ ested Visits Authorized [id number] Closed 06/08/2018 06/08/2019 1 1 Reason for Visit Reason Comments Post-op 6 week pstop left shoulder s cope 04/28/18. Would like to go back to work on Thursday. Shoulder feels good, done with pain med. Will need order for PT. Outpatient (Routine) - Closed Specialty Diagnoses / Procedures Referred By Contact Refer red To Contact Orthopedic Surgery Diagnoses Lesion Superior Glenoid Labrum Initial Left Pain Shoulder Left Kaden Pineda [facility] [place] [facility] M.D. [address] [place] [address] Referral ID Status Reason Start Date Expiration Date Visits Requ ested Visits Authorized [id number] Closed 03/31/2018 03/31/2019 1 1 Encounter Details Date Type Department Care Team Description 06/09/2018 Office Visit Department of Kaden Pineda Rotator Cu ff Repair Shoulder Status Post (Primary Dx); Orthopedic Surgery in [place] Lesion Superior Glenoid Labrum Initial L eft; [place], [place] [address] Shoulder Left [address] [place] [phone] Social History Tobacco Use Types Packs/Day Years [...] you attend rastafari or Patient refused 2020 congregational services? Do [...] encounter Progress Notes Kaden Pineda M.D. - 06/09/2018 1:15 PM CDT HPI: Alon returns to clinic 6 weeks out from a left shoulder arthroscopic rotator cuff repair, slap repair, and open biceps tenodesis performed on 04/28/2018. He has been in a sling since surgery. He notesthat he is doing well. He has not started any physical therapy. He has been wearing his sling. He has been doing exercises on his own. He wants to return to work on Thursday with some restrictions. PHYSICAL EXAM: On exam of his left shoulder, his incisions are well healed. No evidence for infection. He has 150??of active elevation. He is neurovascular intact ASSESSMENT AND PLAN: Alon is 6 weeks out from left shoulder arthroscopic rotator cuff repair, slap repair, and open biceps tenodesis. I did again prescribe him physical therapy. He was supposed to have already started this. I will check back in clinic in 6 weeks. documented in this encounter Plan of Treatment Scheduled Referrals Name Type Priority Associated Order Schedule Diagnoses Orthopedic Surgery Outpatient Referral Routine Ex pected: office visit 07/20/2018 (clinic) (Approximate), Expires: 06/08/2021 documented as of this encounter Visit Diagnoses Diagnosis Rotator Cuff Repair Shoulder Status Post - Primary Lesion Superior Glenoid Labrum Initial L eft Pain Shoulder Left documented in this encounter Care Teams Anglesmith Relationship Specialty Start Date End Date Markos Claire, ELA, C.N.P. PCP - General 03/26/17 02/27/[address] [address] documented as of this encounter
--- OUTSIDE RECORDS SUMMARY | 2022-08-19 06:56 | XMS_ITS | Encounter Summary ---
:1975 Author Organization [facility] Address [address] [place] [address] Care Team Providers Name Role Phone Markos Claire APRN, C.N.P. Primary Care Provider [phone] Reason for Visit Reason Comments Med Refill Encounter Details Date Type Department Care Team Description 04/27/2018 Refill Department of Internal Medicine Roula Claire APRN, Med Refill in [facility] C.N.P. [address] [place] [address] [place] [address] (Wo rk) Social History Tobacco Use Types [...] you attend yarsanism or Patient refused 2020 baptism services? Do [...] to pay for the very basics like [employer] hard 07/17/2021 food, housing, medical care, and [...] this encounter Miscellaneous Notes Telephone Encounter - Adeline Bowser - 04/27/2018 3:15 PM CDT Nurse review: Unable to pend medication; CS- Stimulant Primary Provider: Markos Claire APRN, C.N.P. Name of medication: Adderall Strength: 5 mg tab Frequency: Take 1 tablet by mouth twice daily. Quantity: 60 Refills: Not stated. Last Refill: 03/27/18 Pharmacy: [facility] documented in this encounter Plan of Treatment Not on filedocumented as of this encounter Visit Diagnoses Not on filedocumented in this encounter Care Teams Political Anthropologist Relationship Specialty Start Date End Date Markos Claire APRN, C.N.P. PCP - General 03/26/17 02/27/19 [address] [place] [phone] documented as of this encounter
--- OUTSIDE RECORDS SUMMARY | 2022-08-19 06:56 | XMS_ITS | Encounter Summary ---
:1975 Author Organization [facility] Address [address] [place] [address] Care Team Providers Name Role Phone Markos Claire APRN, C.N.P. Primary Care Provider [phone] Reason for Visit Reason Comments Med Refill Encounter Details Date Type Department Care Team Description 07/26/2018 Refill Department of Internal Medicine Roula Claire APRN, Med Refill in [facility] C.N.P. [address] [place] [address] [place] [address] (Wo rk) Social History Tobacco Use Types [...] you attend yazidi or Patient refused 2020 jainism services? Do [...] to pay for the very basics like [employer] hard 07/17/2021 food, housing, medical care, and [...] Telephone Encounter - Lorna Sadler L.P.N. - 07/28/2018 9:32 AM CDT Rx taken to information desk. Telephone Encounter - Desiree Nicole - 07/26/2018 3:37 PM CDT Images from the original note were not included. Nurse Review: Pharmacy Communication Provider: Markos Claire APRN, C.N.P. Medication: Adderall Strength: 5 mg tab Frequency: Take 1 tab PO twice daily Pharmacy Comment: [facility] [place] documented in this encounter Plan of Treatment Not on filedocumented as of this encounter Visit Diagnoses Not on filedocumented in this encounter Care Teams Hand Tube Bender Relationship Specialty Start Date End Date Markos Claire APRN, C.N.P. PCP - General 03/26/17 02/27/19 [address] [facility] [place] [address] documented as of this encounter
--- OUTSIDE RECORDS SUMMARY | 2022-08-19 06:56 | XMS_ITS | Encounter Summary ---
:1975 Author Organization [facility] Address [address] [place] [address] Care Team Providers Name Role Phone Harvey Crain M.D. Primary Care Provider Encounter Details Date Type Department Care Team Description 05/05/2018 Clinical Communication Department of [facility], [place], Medicine, [place] ELA, C.N.PPatricia [facility], in [facility] [address] [place], [place] [address] [address] [place] [address] [facility] [phone] Social History Tobacco Use Types Packs/Day Years [...] you attend baptism or Patient refused 2020 episcopalian services? Do [...] Telephone Encounter - Tami Sullivan L.P.N. - 05/06/2018 9:14 AM CDT I see this was addressed by surgery. Pt has received a refill of his medication as well as advice tofollow due to increased pain due to injury. Telephone Encounter - ePrlita Blancas APRN, C.N.PPatricia, Felipe.N.PPatricia, M.S.N. - 05/05/2018 4:12 PM CDT This really should be addressed by surgery, especially if he is having increased pain after an injury in the immediate postoperative phase. Telephone Encounter - Tami Sullivan L.P.N. - 05/05/2018 3:44 PM CDT Called and spoke to pt- Pt informed me that he was prescribed 50 tabs of 5-325mg Percocet but the pharmacy only dispensed 42 tabs. Pt informed me that he has been taking this medication as prescribed of q4hrs PRN pain. He has been taking 5-6 tabs in a day and was informed by surgeon to reach out to pcp when getting low. Pt also states that he has been icing the shoulder for 8 hrs in a day. Pt informed me that he has been in increased pain due to his son jumping on the bed and landing on his shoulder. Pt was transferred to surgery PSR to leave a message for his surgeon. Please review and advise on rx refill (pended but no tablet amount set) while pcp is out of office. Thank you Telephone Encounter - Annemarie Otero - 05/05/2018 2:19 PM CDT Patient calling in and needing a refill on some pain medication. HE just had surgery 04/28 and is running low on his PERCOCET. He is wondering if he can get a refill on this. [facility] [place]. Please advise and call patient back at [phone] documented in this encounter Plan of Treatment Not on filedocumented as of this encounter Visit Diagnoses Not on filedocumented in this encounter Care Teams Finishing Range Operator Relationship Specialty Start Date End Date Harvey Crain M.D. PCP - General Internal Medicine 02/28/19 07/31/19 documented as of this encounter
--- OUTSIDE RECORDS SUMMARY | 2022-08-19 06:56 | XMS_ITS | Encounter Summary ---
:1975 Author Organization [facility] Address [address] [place] [address] Care Team Providers Name Role Phone Markos Claire APRN, C.N.P. Primary Care Provider [phone] Reason for Referral MRI/CAT/PET Scan (Routine) - Closed Specialty Diagnoses / Procedures Referred By Contact Refer red To Contact Radiology Diagnoses Rotator Cuff Repair Shoulder Status Post Kaden Pineda M.D. [facility] [place] [facility] Procedures MR Shoulder Arthrogram Left DC MRI UPR EXT JOINT W CNTRST HC MRI UPR EXT JOINT W CNTRST [address] [place] [address] Referral ID Status Reason Start Date Expiration Date Visits Requ ested Visits Authorized [id number] Closed 09/06/2018 09/06/2019 1 1 ING ENGINEER Outpatient (Routine) - Closed Specialty Diagnoses / Procedures Referred By Contact Refer red To Contact Diagnoses Rotator Cuff Repair Shoulder Status Post Kaden Pineda M.D. [facility] [place] [facility] Procedures FL Shoulder Arthrogram Injection Left [address] [place] [address] Referral ID Status Reason Start Date Expiration Date Visits Requ ested Visits Authorized [id number] Closed 09/06/2018 09/06/2019 1 1 ING ENGINEER Outpatient (Routine) - Closed Specialty Diagnoses / Procedures Referred By Contact Refer red To Contact Orthopedic Surgery Kaden Pineda [facility] Shonda Velázquez M.D. [address] [place] [address] Referral ID Status Reason Start Date Expiration Date Visits Requ ested Visits Authorized [id number] Closed 09/06/2018 09/06/2019 1 1 ING ENGINEER Encounter Details Date Type Department Care Team Description 09/06/2018 Orders Only Department of Kaden Pineda Rotator Cu ff Repair Orthopedic Surgery in [place] Shoulder Status Post [place], [place] [address] (Primary Dx) [address] [facility] [place] [address] [phone] Social History Tobacco Use Types Packs/Day Years [...] you attend lutheran or Patient refused 2020 samaritan services? Do [...] or slept in a snf (including now)? Sex Assigned at Date Recorded Not on file documented as of this encounter Plan of Treatment Scheduled Referrals Name Type Priority Associated Order Schedule Diagnoses Orthopedic Surgery Outpatient Referral Routine 1 Occurrences office visit starting 2017 (clinic) until 1 documented as of this encounter Results MR Shoulder Arthrogram Left (09/14/2018 12:01 PM MOLDING ENGINEER) Anatomical Region Laterality Modality Upper Extremity, Shoulder, Musculoskeletal RST LOS, Left Magnetic Resonance Musculoskeletal ARZ LOS, Muskuloskeletal FLA LOS Specimen (Source) Anatomical Collection Method Collection Time Re ceived Time Location / / Volume Laterality 09/14/2018 2:39 PM MOLDING ENGINEER Impressions 09/14/2018 2:54 PM MOLDING ENGINEER IMPRESSION: 1. ??Full-thickness tear supraspinatus-i nfraspinatus tendon conjoined attachment. 2. ??Postop SLAP repair without recurren t labral tear. 3. ??Subpectoral biceps tenodesis. 4. ??Acromioplasty. Narrative 09/14/2018 2:54 PM MOLDING ENGINEER EXAM: MR SHOULDER ARTHROGRAM LEFT COMPARISON: MRI [...] tenodesis. 4. Acromioplasty. Kaden CHAMBERS MRI PROCEDURES FL Shoulder Arthrogram Injection Left (09/14/2018 11:37 AM MOLDING ENGINEER) Anatomical Region Laterality Modality Shoulder, Musculoskeletal RST LOS, Musculoskeletal ARZ Left X-Ray Angiography LOS, Procedure FLA LOS, Muskuloskeletal FLA LOS Specimen (Source) Anatomical Collection Method Collection Time Re ceived Time Location / / Volume Laterality 09/14/2018 12:30 PM MOLDING ENGINEER Impressions 09/14/2018 12:31 PM MOLDING ENGINEER IMPRESSION: Successful fluoroscopic-guided arthrogram of the left shoulder joint before MRI . Narrative 09/14/2018 12:31 PM MOLDING ENGINEER EXAM: FL SHOULDER ARTHROGRAM INJECTION LEFT PROCEDURE: Sterile; 1% lidocaine for loc al anesthesia. Location: LEFT Needle size: 22G Instilled in Joint: Intra-articular posi tioning was verified with injection of a small volume iodinated contrast. Followi ng this, approximately 10 mL ??of 1:200 mixture of sterile saline and Gadolinium contrast was instilled into the joint space. Other: None Complications: None PREPROCEDURE: Patient seen, evaluated, a nd history reviewed. Discussed risks, benefits, and alternatives for procedure , and obtained informed consent. Patient understands information and questions an swered. Immediately prior to starting the procedure, in the presence of the as sisting personnel, procedural pause was conducted to verify correct patient iden tity and verification of procedure to be performed, and as applicable, correct si de and site, correct patient position, availability of implants, special equipm ent, or special requirements, and all image and specimen identification data. The roles and responsibilities of the care team members, resident, and fellows were discussed. The medication list was reviewed and there are no changes to cur rent medications. Patient education provided by the care juice bar team member. Ready to learn, no apparent learning barriers were identified. Post-procedure care exp lained; patient expressed understanding of the content. Procedure Note Kanu Agrawal M.D. - 09/14/2018 EXAM: FL SHOULDER ARTHROGRAM INJECTION L EFT PROCEDURE: Sterile; 1% lidocaine for loc al anesthesia. Location: LEFT Needle size: 22G Instilled in Joint: Intra-articular posi tioning was verified with injection of a small volume iodinated contrast. Followi ng this, approximately 10 mL of 1:200 mixture of sterile saline and Gadolinium contrast was instilled into the joint space. Other: None Complications: None PREPROCEDURE: Patient seen, evaluated, a nd history reviewed. Discussed risks, benefits, and alternatives for procedure , and obtained informed consent. Patient understands information and questions an swered. Immediately prior to starting the procedure, in the presence of the as sisting personnel, procedural pause was conducted to verify correct patient iden tity and verification of procedure to be performed, and as applicable, correct si de and site, correct patient position, availability of implants, special equipm ent, or special requirements, and all image and specimen identification data. The roles and responsibilities of the care team members, resident, and fellows were discussed. The medication list was reviewed and there are no changes to cur rent medications. Patient education provided by the care juice bar team member. Ready to learn, no apparent learning barriers were identified. Post-procedure care exp lained; patient expressed understanding of the content. IMPRESSION: Successful fluoroscopic-guid ed arthrogram of the left shoulder joint before MRI . Kaden CHAMBERS FLUOROSCOPY PROCEDURES documented in this encounter Visit Diagnoses Diagnosis Rotator Cuff Repair Shoulder Status Post - Primary Rotator Cuff Repair Shoulder Status Post Rotator Cuff Repair Shoulder Status Post documented in this encounter Care Teams Lead Systems Architect Relationship Specialty Start Date End Date Markos Claire, ELA, C.N.P. PCP - General 03/26/17 02/27/[address] [address] documented as of this encounter
--- OUTSIDE RECORDS SUMMARY | 2022-08-19 06:56 | XMS_ITS | Encounter Summary ---
:1975 Author Organization [facility] Address [address] [place] [address] Care Team Providers Name Role Phone Markos Claire APRN, C.N.P. Primary Care Provider [phone] Encounter Details Date Type Department Care Team Description 06/17/2018 Orders Only Department of Orthopedic Kaden Pineda, [place] [address] [place] [phone] (Wo rk) Social History Tobacco Use Types [...] you attend advent or Patient refused 2020 oriental orthodox services? [...] on filedocumented in this encounter Care Teams Regasification Plant Operator Relationship Specialty Start Date End Date Markos Claire APRN, C.N.P. PCP - General 03/26/17 02/27/[address] [phone] documented as of this encounter
--- OUTSIDE RECORDS SUMMARY | 2022-08-19 06:56 | XMS_ITS | Encounter Summary ---
:1975 Author Organization [facility] Address [address] [place] [address] Care Team Providers Name Role Phone Markos Claire APRN C.N.P. Primary Care Provider [phone] Reason for Referral Outpatient (Routine) - Closed Specialty Diagnoses / Procedures Referred By Contact Refer red To Contact Diagnoses Rotator Cuff Repair Shoulder Status Post Kaden Pineda M.D. [facility] [place] [facility] Procedures FL Shoulder Arthrogram Injection Left [address] [place] [address] Referral ID Status Reason Start Date Expiration Date Visits Requ ested Visits Authorized [id number] Closed 09/06/2018 09/06/2019 1 1 E SHOW MANAGER Reason for Visit Outpatient (Routine) - Closed Specialty Diagnoses / Procedures Referred By Contact Refer red To Contact Diagnoses Rotator Cuff Repair Shoulder Status Post Kaden Pineda M.D. [facility] [place] [facility] Procedures FL Shoulder Arthrogram Injection Left [address] [place] [address] Referral ID Status Reason Start Date Expiration Date Visits Requ ested Visits Authorized [id number] Closed 09/06/2018 09/06/2019 1 1 Encounter Details Date Type Department Care Team Description 09/14/2018 Hospital Encounter Department of Edwin Rotator Cuff Repair Radiology in [facility] M.D. Shoulder Status Post [place], [place] [address] [place] [address] [phone] Social History Tobacco Use Types Packs/Day Years [...] you attend islam or Patient refused 2020 faith services? Do [...] Take 1 tablet by 45 tablet 0 /04/201810/28/2018 (NORCO) 5-325 mg per mouth every 6 [...] ONCE DAILY documented as of this encounter Progress Notes Whitney Flynn R.N. - 09/14/2018 11:26 AM CST Patient tolerated procedure without complication and site(s) were well coagulated with adhesive bandaids applied. Patient was able to ambulate independently per baseline and was escorted to MRI by Whitney Flynn RN. Patient was given pamphlet MRI shoulder Arthrogram, and verbalized understanding of this. E SHOW MANAGER documented in this encounter Nursing Notes Whitney Flynn R.N. - 09/14/2018 11:10 AM CST Patient denies diabetes, active infections, use of blood thinners. E SHOW MANAGER documented in this encounter Plan of Treatment Not on filedocumented as of this encounter Procedures Procedure Name Priority Date/Time Associated Comments Diagnosis FL SHOULDER RAD - Routine 09/14/2018 11:37 Rotator Cuff Results fo r this ARTHROGRAM (most inpatients AM HORSE SHOW MANAGER Repair Shoulder procedur e are in INJECTION LEFT and all Status Post the results outpatients) section. documented in this encounter Results FL Shoulder Arthrogram Injection Left (09/14/2018 11:37 AM HORSE SHOW MANAGER) Anatomical Region Laterality Modality Shoulder, Musculoskeletal RST LOS, Musculoskeletal ARZ Left X-Ray Angiography LOS, Procedure FLA LOS, Muskuloskeletal FLA LOS Specimen (Source) Anatomical Collection Method Collection Time Re ceived Time Location / / Volume Laterality 09/14/2018 12:30 PM HORSE SHOW MANAGER Impressions 09/14/2018 12:31 PM HORSE SHOW MANAGER IMPRESSION: Successful fluoroscopic-guided arthrogram of the left shoulder joint before MRI . Narrative 09/14/2018 12:31 PM HORSE SHOW MANAGER EXAM: FL SHOULDER ARTHROGRAM INJECTION LEFT PROCEDURE: [...] medications. Patient education provided by the care tennis desk team member. Ready to learn, no apparent [...] medications. Patient education provided by the care tennis desk team member. Ready to learn, no apparent learning barriers were identified. Post-procedure care exp lained; patient expressed understanding of the content. IMPRESSION: Successful fluoroscopic-guid ed arthrogram of the left shoulder joint before MRI . Kaden CHAMBERS FLUOROSCOPY PROCEDURES documented in this encounter Visit Diagnoses Diagnosis Rotator Cuff Repair Shoulder Status Post documented in this encounter Administered Medications Inactive Administered Medications - up to 3 most recent administrations Medication Order MAR Action Action Date Dose Rate Site gadobutrol injection 0.05 mL Given 09/14/2018 11:22 AM HORSE SHOW MANAGER 0.05 mL (GADAVIST) 0.05 mL, intra-articular, Once in imaging, contrast, Starting on Thu09/14/18 at 1055, For 1 dose iohexol 300 mg iodine/mL solution 1 mL Given 09/14/2018 10:22 AM HORSE SHOW MANAGER 1.5 mL (OMNIPAQUE) 1 mL, intra-articular, Once in imaging, contrast, Starting on Thu09/14/18 at 1055, For 1 dose lidocaine 10 mg/mL (1 %) injection 2.25 mL Given 09/14 11:22 AM HORSE SHOW MANAGER 2.25 mL (XYLOCAINE) 2.25 mL, injection, Once, On Thu09/14/18 at 1100, For 1 dose sodium bicarbonate injection 0.25 mEq Given 09/14/2018 11:22 AM HORSE SHOW MANAGER 0.25 mEq 0.25 mEq, injection, Once, On Thu09/14/18 at 1100, For 1 dose, Given with lidocaine via injection sodium chloride injection 8.5 mL Given 09/14/2018 11:22 AM HORSE SHOW MANAGER 8.5 mL 8.5 mL, intravenous, As needed, line care, for IVAD access, Starting on Thu09/14/18 at 1055 documented in this encounter Care Teams Fine Chemicals Operator Relationship Specialty Start Date End Date Markos Claire, ELA, C.N.P. PCP - General 03/26/17 02/27/[address] [address] documented as of this encounter
--- OUTSIDE RECORDS SUMMARY | 2022-08-19 06:56 | XMS_ITS | Encounter Summary ---
:1975 [facility] Address [address] [place] [address] Care Team Providers Name Role Phone Markos Claire APRN, C.N.P. Primary Care Provider [phone] Encounter Details Date Type Department Care Team Description 09/06/2018 Clinical Communication Department of Kaden Pineda Orthopedic Surgery in [place], [place] [address] [place] [phone] Social History Tobacco Use Types Packs/Day Years [...] you attend muslim or Patient refused 2020 confucianist services? Do you belong to any clubs [...] this encounter Miscellaneous Notes Telephone Encounter - Andrew Becerril - 09/07/2018 1:54 PM CST Called and left a message with PT. Waiting for a call back. WEAVING LOOM SETTER Telephone Encounter - Therese Guillaume, C.M.A. - 09/07/2018 9:45 AM WIRE WEAVING LOOM SETTER Please contact patient and set up follow up appointment with Dr. Pineda following his MRI Thank you WEAVING LOOM SETTER Telephone Encounter - Andrew Becerril - 09/06/2018 4:01 PM CST please contact pt to schedule MRI. WEAVING LOOM SETTER Telephone Encounter - Kaden Pineda M.D. - 09/06/2018 2:59 PM WIRE WEAVING LOOM SETTER MRI and f/up appt ordered WEAVING LOOM SETTER Telephone Encounter - Florinda Mar - 09/06/2018 2:14 PM CST Patient called in says he is suppose to have a follow up MRI and meet with Dr. Pineda. There are no orders for either can these be ordered so MRI can get scheduled before we make appt with . Please call him back at [phone] WEAVING LOOM SETTER documented in this encounter Plan of Treatment Not on filedocumented as of this encounter Visit Diagnoses Not on filedocumented in this encounter Care Teams Chaser Apprentice Relationship Specialty Start Date End Date Markos Claire APRN, C.N.P. PCP - General 03/26/17 02/27/19 [address] [place] [phone] documented as of this encounter
--- OUTSIDE RECORDS SUMMARY | 2022-08-19 06:56 | XMS_ITS | Encounter Summary ---
:1975 Author Organization [facility] Address [address] [place] [address] Care Team Providers Name Role Phone Markos Claire APRN, C.N.P. Primary Care Provider [phone] Encounter Details Date Type Department Care Team Description 09/07/2018 Clinical Communication Department of [facility] Vernon Claire am, Medicine, [place] ELA, C.N.P. [facility], [facility] [address] [place], [place] [address] [address] [place] [address] [facility] [phone] Social History Tobacco Use Types Packs/Day Years [...] to pay for the very basics like [employer] hat hard 07/17/2021 food, housing, medical care, [...] filedocumented in this encounter Care Teams Manager Of Information Relationship Specialty Start Date End Date Markos Claire, ELA, C.N.P. PCP - General 03/26/17 02/27/[address] [phone] documented as of this encounter
--- OUTSIDE RECORDS SUMMARY | 2022-08-19 06:57 | XMS_ITS | Encounter Summary ---
:1975 Author Organization [facility] Address [address] [place] [address] Care Team Providers Name Role Phone Markos Claire APRN, C.N.P. Primary Care Provider [phone] Reason for Visit Reason Onset Date Comments SURGERY DATE 04/01/2018 LEFT SHOULDER ARTHRO SCOPY Encounter Details Date Type Department Care Team Description 04/01/2018 Clinical Communication Department of Queen[place], SURG BEENA DATE (LEFT Orthopedic Surgery Kaden Roldan M.D. SHOULDER in [place], [address] ) [facility] [address] [place] [phone] Social History Tobacco Use Types Packs/Day Years [...] you attend lutheran or Patient refused 2020 adventist services? Do [...] to pay for the very basics like [employer] hat hard 07/17/2021 food, housing, medical care, [...] Notes Telephone Encounter - Makayla Poon - 04/01/2018 1:16 PM CDT PREOP DATE: 04/22/2018 - BRANDL / rescheduled S: SURGERY DATE: 04/28/2018 - resched from 09/21/18 B: REQUEST FOR SURGERY: LEFT SHOULDER ARTHROSCOPY SUBACROMIAL DECOMPRESSION SLAP REPAIR OPEN BICEPS TENODESIS A: RISK ASSESSMENT: ANESTHESIA: GENERAL R: HOSPITAL WILL CALL WITH ARRIVAL TIME SURGEON: QUEEN[place] LOCATION: [facility] LABS: N/A documented in this encounter Plan of Treatment Not on filedocumented as of this encounter Visit Diagnoses Not on filedocumented in this encounter Care Teams Welding Machine Operator Resistance Relationship Specialty Start Date End Date Markos Claire, ELA, C.N.P. PCP - General 03/26/17 02/27/[address] [phone] documented as of this encounter
--- OUTSIDE RECORDS SUMMARY | 2022-08-19 06:57 | XMS_ITS | Encounter Summary ---
:1975 Author Organization [facility] Address [address] [place] [address] Care Team Providers Name Role Phone Markos Claire APRN, C.NPatriciaPPatricia Primary Care Provider [phone] Encounter Details Date Type Department Care Team Description 03/10/2018 Hospital Encounter Department of Markos Claire, Pain Shoulder Left Radiology in [place], [place] [address] [place] [phone] Social History Tobacco Use Types Packs/Day Years [...] you attend evangelical or Patient refused 2020 catholic services? Do [...] 500 mg mouth. tablet naproxen (NAPROSYN) 500 mg Take 1 tablet (500 60 tablet 0 0 03/10/2018 2018 tablet mg total) by mouth 2 (two) times a day as needed for pain (pain). cyclobenzaprine Take 1 tablet (5 30 tablet 0 09/29/2017 (for_FLEXERIL) 5 mg mg total) by mouth tabletIndications: Pain 3 (three) times a Low Back Unspecified day as needed for muscle spasms. dextroamphetamine-amphetam Take 1 tablet (5 60 tablet 0 08/201804/22/2018 ine (ADDERALL) 5 mg tablet mg total) by mouth 2 (two) times a day Earliest Fill Date: 01/20/18. CSA 09/10/16 dextroamphetamine-amphetam Take 1 tablet (5 60 tablet 0 08/201804/27/2018 ine (ADDERALL) 5 mg tablet mg total) by mouth 2 (two) times a day Earliest Fill Date: 02/18/18. CSA 09/10/16 nortriptyline (PAMELOR) 50 TAKE ONE CAPSULE 90 capsule 3 03/15/2019 mg capsule BY MOUTH ONCE DAILY documented as of this encounter Progress Notes Adeline Mari L.PPatriciaN. - 03/10/2018 11:59 PM CDT Patient notified. Adeline Mari L.P.N. - 03/10/2018 4:42 PM CDT Left message to call back . documented in this encounter Plan of Treatment Not on filedocumented as of this encounter Procedures Procedure Name Priority Date/Time Associated Comments Diagnosis DX SHOULDER LEFT RAD - Routine 03/10/2018 9:14 Pain Shoulder Result s for this 2+ VIEWS (most inpatients AM CDT Left procedure a re in and all the results outpatients) section. documented in this encounter Results DX Shoulder Left 2+ Views (03/10/2018 9:14 AM CDT) Anatomical Region Laterality Modality Upper Extremity, Shoulder, Musculoskeletal RST LOS Left Digital Radiography Specimen (Source) Anatomical Collection Method Collection Time Re ceived Time Location / / Volume Laterality 03/10/2018 11:47 AM CDT Impressions 03/10/2018 11:47 AM CDT IMPRESSION: Comparison 05/22/14. No fracture or subluxation. No degenerative disease. Narrative 03/10/2018 11:47 AM CDT EXAM: DX SHOULDER LEFT 2+ VIEWS Procedure Note Kanu Agrawal M.D. - 03/10/2018 EXAM: DX SHOULDER LEFT 2+ VIEWS IMPRESSION: Comparison 05/22/14. No fract ure or subluxation. No degenerative disease. Markos Claire APRN C.N.P. IMG DIAGNOSTIC IMAGING PROC EDURES documented in this encounter Visit Diagnoses Diagnosis Pain Shoulder Left documented in this encounter Care Teams Manager Implementation Relationship Specialty Start Date End Date Markos Claire APRN, C.N.P. PCP - General 03/26/17 02/27/19 [address] [place] [phone] documented as of this encounter
--- OUTSIDE RECORDS SUMMARY | 2022-08-19 06:57 | XMS_ITS | Encounter Summary ---
:1975 Author Organization [facility] Address [address] [place] [address] Care Team Providers Name Role Phone Markos Claire APRN, C.N.P. Primary Care Provider [phone] Encounter Details Date Type Department Care Team Description 03/25/2018 Orders Only Department of Internal Markos Claire AP RN, Medicine in [place], C.[facility] [address] [place] [phone] (Wo rk) Social History Tobacco Use Types [...] you attend temple or Patient refused 2020 hoahaoism services? Do [...] on filedocumented in this encounter Care Teams Dustless Operator Relationship Specialty Start Date End Date Markos Claire, ELA, C.N.P. PCP - General 03/26/17 02/27/[address] [phone] documented as of this encounter
--- OUTSIDE RECORDS SUMMARY | 2022-08-19 06:57 | XMS_ITS | Encounter Summary ---
:1975 Author Organization [facility] Address [address] [place] [address] Care Team Providers Name Role Phone Markos Claire APRN, C.N.P. Primary Care Provider [phone] Reason for Visit Reason Comments Hemorrhoids Encounter Details Date Type Department Care Team Description 03/03/2018 - Emergency [facility] Hemorrhoids (Primary Dx) 03/04/2018 [address] [place] [address] Social History Tobacco Use Types Packs/Day [...] you attend congregation or Patient refused 2020 islam services? Do [...] by 0 (for_TYLENOL) 500 mg mouth. tablet cyclobenzaprine Take 1 tablet (5 30 tablet [...] day Earliest Fill Date: 02/18/18. CSA 09/10/16 dextroamphetamine-amphetam Take 1 tablet (5 60 tablet 0 07/201803/10/2018 ine (ADDERALL) 5 mg tablet mg total) by mouth 2 (two) times a day Earliest Fill Date: 03/20/18. CSA 09/10/16 nortriptyline (PAMELOR) 50 TAKE ONE CAPSULE 90 capsule 3 03/15/2019 mg capsule BY MOUTH ONCE DAILY documented as of this encounter Plan of Treatment Not on filedocumented as of this encounter Visit Diagnoses Diagnosis Hemorrhoids - Primary documented in this encounter Care Teams Cota Relationship Specialty Start Date End Date Markos Claire, ELA, C.N.P. PCP - General 03/26/17 02/27/19 [address], [place] [phone] documented as of this encounter
--- OUTSIDE RECORDS SUMMARY | 2022-08-19 06:57 | XMS_ITS | Encounter Summary ---
:1975 Author Organization [facility] Address [address] [place] [address] Care Team Providers Name Role Phone Markos Claire APRN, C.N.P. Primary Care Provider [phone] Reason for Referral Outpatient (Routine) - Closed Specialty Diagnoses / Procedures Referred By Contact Refer red To Contact Community Internal Markos Claire, [facility] Medicine ELA, C.N.P. [address], [place] [address] Referral ID Status Reason Start Date Expiration Date Visits Requ ested Visits Authorized [id number] Closed 01/20/2018 07/19/2018 1 1 Encounter Details Date Type Department Care Team Description 01/20/2018 Orders Only Department of Internal Markos Claire AP RN, Medicine in [place], C.N.[facility] [address] [place] [phone] (Wo rk) Social History Tobacco Use Types Packs/Day Years Used Date Smoking Tobacco: Unknown Smokeless Tobacco: Current Chew Alcohol Use Standard [...] you attend gnosticist or Patient refused 2020 anglican services? Do [...] Name Type Priority Associated Diagnoses Order S [facility] Internal Outpatient Referral Routine Ex pected: Medicine office 04/21/2018 visit (clinic) (Approximate) , Expires: 01/20/2021 documented as of this encounter Visit Diagnoses Not on filedocumented in this encounter Care Teams Clearance Center Manager Relationship Specialty Start Date End Date Markos Claire, ELA, C.N.P. PCP - General 03/26/17 02/27/[address] [phone] documented as of this encounter
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
--- OUTSIDE RECORDS SUMMARY | 2022-08-19 06:57 | XMS_ITS | Encounter Summary ---
:1975 Author Organization [facility] Address [address] [place] [address] Care Team Providers Name Role Phone Markos Claire APRN, C.N.P. Primary Care Provider [phone] Reason for Visit Reason Onset Date Comments Xray results 01/20/2018 Encounter Details Date Type Department Care Team Description 01/20/2018 Clinical Communication Department of [facility] Vernon Claire am, Xray results [facility] ELA, C.N.P. [facility], [facility], [address] [place], [place] [address] [address] [place], [place] [phone] (Work) [phone] Social History Tobacco Use Types Packs/Day Years [...] you attend restoration or Patient refused 2020 jew services? Do [...] to pay for the very basics like [employer] hat hard 07/17/2021 food, housing, medical care, [...] Miscellaneous Notes Telephone Encounter - Lorna Sadler L.PPatriciaNPatricia - 02/09/2018 2:33 PM CDT Patient informed of lab results. Telephone Encounter - Kindra Pérez - 02/09/2018 2:01 PM CDT Patient called again. Please call [phone] Telephone Encounter - Ritika Arevalo - 02/09/2018 11:05 AM CDT Patient returned call for X-ray results. 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 Please call back. Telephone Encounter - Tiffany Mays L.P.NPatricia - 01/22/2018 1:39 PM CDT Called patient and left message to call back Telephone Encounter - Mariama Marshall - 01/21/2018 2:21 PM CDT Pt returning a call to Lorna. Telephone Encounter - Mariama Marshall - 01/21/2018 1:54 PM CDT Alon is returning a call to Lorna, he will be available until 3pm today Telephone Encounter - Lorna Sadler, L.P.NPatricia - 01/20/2018 2:58 PM CDT 01-20-18 LM Telephone Encounter - Ritika Arevalo - 01/20/2018 1:27 PM CDT Patient returned call to nurse, said it maybe regarding his Rx refill of Adderall documented in this encounter Plan of Treatment Not on filedocumented as of this encounter Visit Diagnoses Not on filedocumented in this encounter Care Teams Pheresis Nurse Relationship Specialty Start Date End Date Markos Claire, ELA, C.N.P. PCP - General 03/26/17 02/27/19 [address], [place] [address] documented as of this encounter
--- OUTSIDE RECORDS SUMMARY | 2022-08-19 06:57 | XMS_ITS | Encounter Summary ---
:1975 Author Organization [facility] Address [address] [place] [address] Care Team Providers Name Role Phone Markos Claire APRN, C.N.P. Primary Care Provider [phone] Encounter Details Date Type Department Care Team Description 03/18/2018 Clinical Communication Department of Marilyn Lizama , Internal Medicine in [place], [place] [address] [place] [phone] Social History Tobacco Use Types Packs/Day Years [...] you attend yazidi or Patient refused 2020 yazidi services? Do [...] Miscellaneous Notes Telephone Encounter - Marilyn Lizama L.P.N. - 03/18/2018 9:37 AM CDT ----- Message from Hawa Naranjo(R), Hawa(Vadim)(MR) sent at 03/18/2018 8:10 AM CDT ----- Regarding: No-Show Alon was a no-show for his MRI appointment today. documented in this encounter Plan of Treatment Not on filedocumented as of this encounter Visit Diagnoses Not on filedocumented in this encounter Care Teams Presser All Around Relationship Specialty Start Date End Date Markos Claire APRN, C.N.P. PCP - General 03/26/17 02/27/19 [address] [place] [phone] documented as of this encounter
--- OUTSIDE RECORDS SUMMARY | 2022-08-19 06:57 | XMS_ITS | Encounter Summary ---
:1975 Author Organization [facility] Address [address] [place] [address] Care Team Providers Name Role Phone Markos Claire APRN, C.N.P. Primary Care Provider [phone] Encounter Details Date Type Department Care Team Description 03/11/2018 Clinical Communication Department of Internal Markos Claire, Medicine in [facility] ELA, C.N. P. [facility] [address] [place] [phone] Social History Tobacco Use Types Packs/Day Years [...] you attend congregation or Patient refused 2020 mosque services? Do [...] encounter Miscellaneous Notes Telephone Encounter - Adeline Mari L.P.N. - 03/11/2018 10:48 AM CDT Patient notified of recent lab results. Telephone Encounter - Kindra Pérez - 03/11/2018 8:44 AM CDT Patient returned call to the nurse. Please call [phone] documented in this encounter Plan of Treatment Not on filedocumented as of this encounter Visit Diagnoses Not on filedocumented in this encounter Care Teams Oil [employer] Caser Relationship Specialty Start Date End Date Markos Claire, ELA, C.N.P. PCP - General 03/26/17 02/27/[address] [phone] documented as of this encounter
--- OUTSIDE RECORDS SUMMARY | 2022-08-19 06:57 | XMS_ITS | Encounter Summary ---
:1975 Author Organization [facility] Address [address] [place] [address] Care Team Providers Name Role Phone Markos Claire APRN C.N.P. Primary Care Provider [phone] Reason for Referral Outpatient (Routine) - Closed Specialty Diagnoses / Procedures Referred By Contact Refer red To Contact Family Medicine Diagnoses Lesion Superior Glenoid Labrum Initial Left Pain Shoulder Left Kaden Jerome [facility] [place] [facility] M.D. [address], [place] [address] Referral ID Status Reason Start Date Expiration Date Visits Requ ested Visits Authorized [id number] Closed 03/31/2018 03/31/2019 1 1 Outpatient (Routine) - Closed Specialty Diagnoses / Procedures Referred By Contact Refer red To Contact Orthopedic Surgery Diagnoses Lesion Superior Glenoid Labrum Initial Left Pain Shoulder Left Kaden Jerome [facility] [place] [facility] M.D. [address], [place] [address] Referral ID Status Reason Start Date Expiration Date Visits Requ ested Visits Authorized [id number] Closed 03/31/2018 03/31/2019 1 1 Outpatient (Routine) - Closed Specialty Diagnoses / Procedures Referred By Contact Refer red To Contact Orthopedic Surgery Diagnoses Lesion Superior Glenoid Labrum Initial Left Pain Shoulder Left Kaden Jerome [facility] [place] [facility] M.D. [address] [place] [address] Referral ID Status Reason Start Date Expiration Date Visits Requ ested Visits Authorized [id number] Closed 03/31/2018 03/31/2019 1 1 Reason for Visit Reason Comments Pain Outpatient (Routine) - Closed Specialty Diagnoses / Procedures Referred By Contact Refer red To Contact Orthopedic Surgery Diagnoses Pain Shoulder Left Markos Claire APRN, [facility] C.N.. [address] [place] [address] Referral ID Status Reason Start Date Expiration Date Visits Requ ested Visits Authorized [id number] Closed 03/30/2018 03/30/2019 1 1 Encounter Details Date Type Department Care Team Description 03/31/2018 Comprehensive Visit Department of Edwin, Deanne Superior Glenoid Labrum Initial Left (Primary Dx); Orthopedic Surgery aKden Roldan M.D. Pain Shoulder Left in [place], [address] [place] [address] Social History Tobacco Use [...] you attend buddhist or Patient refused 2020 mu-ism services? Do [...] Sign Reading Time Taken Comments Blood Pressure 120/60 03/31/2018 1:55 PM CDT Pulse - - Temperature - - Respiratory Rate - - Oxygen Saturation - - Inhaled Oxygen Concentration - - Weight 69.2 kg (152 lb 8.9 oz) 03/31/2018 1:55 PM CDT Height 165.6 cm (5' 5.2) 03/31/2018 1:55 PM CDT Body Mass Index 25.23 03/31/2018 1:55 PM CDT documented in this encounter Patient Instructions Patient InstructionsTherese Guillaume C.MNixon - 03/31/2018 2:00 PM CDT SURGICAL EDUCATION WAS GIVEN TO THE PATIENT TODAY FOR LEFT SHOULDER SLAP REPAIR, TO BE SCHEDULED WITH Dr. JEROME. ALL QUESTIONS WERE ANSWERED AND THE PATIENT VERBALIZED UNDERSTANDING OF ALL INFORMATION AND INSTRUCTIONS GIVEN. SURGERY SCHEDULING MET WITH PATIENT AND SCHEDULED SURGERY AND PRE AND POST-OPERATIVE APPOINTMENTS. documented in this encounter Consult Notes Kaden Jerome M.D. - 03/31/2018 2:00 PM CDT HPI: Alon is a pleasant 42-year-old gentleman who I am seeing in consultation from Markos Claire today in regards to his left shoulder. He has had pain for about 2 months. He denies anyone specific injury but he does do a lot of overhead lifting. He has significant pain in the front and side of his left shoulder. He has pain at night. He can barely lift his arm up. He has weakness. He has no radiation of the pain. He has no numbness or tingling. He had an MRI and was sent here as he has a tear. Please see Orthopedic intake form that is scanned into the EMR for complete list of medication, allergies, past medical history, past family history, past social history, and complete review of systems. PHYSICAL EXAM: He is a healthy-appearing gentleman in no acute distress. On exam of his left shoulder, his skin is benign. He only has about 100?? of active abduction today. Passively I can get up to 140?? but it is painful. He has severe tenderness to palpation of the biceps tendon. He has mild tenderness over the AC joint. He has positive Neer and Hooker impingement signs. He has 4/5 strength with resisted abduction. He has good strength with internal external rotation. IMAGING: X-ray and MRI reviewed. He has a slap tear which extends to the biceps anchor with a longitudinal split to the biceps tendon. He has subacromial bursitis. He has markedly his supraspinatus insertional tendinosis with significant edema in the greater tuberosity. ASSESSMENT AND PLAN: Alon is a very pleasant 42 old gentleman with a large left shoulder labral tear extending into the biceps anchor along with concern for possible supraspinatus tear given the marked edema within his greater tuberosity. We did discuss surgical intervention. Risks, benefits, alternatives to a left shoulder arthroscopic subacromial decompression, possible rotator cuff repair, slap repair, and open subpectoral biceps tenodesis were explained. He did express understanding of all this and agreed with the decision to proceed with surgery. He would like to do this in the winter, which I think is reasonable. documented in this encounter Plan of Treatment Scheduled Referrals Name Type Priority Associated Order Schedule Diagnoses Orthopedic Surgery Outpatient Referral Routine Lesion Superior 1 Occurrences Post Op (clinic) Glenoid Labrum starting 03/31/2018 Initial Left until 03/31/2021 Pain Shoulder Left Orthopedic Surgery Outpatient Referral Routine Lesion Superior 1 Occurrences Post Op (clinic) Glenoid Labrum starting 03/31/2018 Initial Left until 09/30/2018 Pain Shoulder Left Primary Care - [facility] Outpatient Referral Routine Lesion Superior Expected: consult (clinic) Glenoid Labrum 8 Initial Left (Approximate), Pain Shoulder Left Expires: 03/31/2021 documented as of this encounter Visit Diagnoses Diagnosis Lesion Superior Glenoid Labrum Initial L eft - Primary Pain Shoulder Left documented in this encounter Care Teams Inspector Metal Fabricating Relationship Specialty Start Date End Date Markos Claire, ELA, C.N.P. PCP - General 03/26/17 02/27/[address] [address] documented as of this encounter
--- OUTSIDE RECORDS SUMMARY | 2022-08-19 06:57 | XMS_ITS | Encounter Summary ---
:1975 Author Organization [facility] Address [address] [place] [address] Care Team Providers Name Role Phone Markos Claire APRN, C.N.P. Primary Care Provider [phone] Reason for Visit Reason Comments Med Refill Encounter Details Date Type Department Care Team Description 12/16/2017 Refill Department of Internal Medicine Roula Claire APRN, Med Refill in [facility] C.N.P. [address] [place] [address] [address] [place] [address] (Wo rk) Social History Tobacco Use Types Packs/Day Years Used Date Smoking Tobacco: Former Smokeless Tobacco: Current Chew Alcohol Use Standard [...] or relatives? How often do you attend tenriism or Patient refused 2020 baptism services? Do you belong to any clubs or No 07/17/2021 organizations such as tenriism groups, unions, fraternal or athletic groups, or [...] to pay for the very basics like [facility] hard 07/17/2021 food, housing, medical care, and [...] Notes Telephone Encounter - Vonnie Wells - 12/16/2017 1:33 PM CST Nurse review: Unable to pend medication; Stimulant Primary Provider: Markos Claire Name of medication: Adderall Strength: 5 mg Frequency: Take one tablet by mouth twice daily in the morning and at noon. Quantity: 60 Last Refill: 11/17/2017 [facility]: [facility] documented in this encounter Plan of Treatment Not on filedocumented as of this encounter Visit Diagnoses Not on filedocumented in this encounter Care Teams Flexible Shaft Winder Relationship Specialty Start Date End Date Markos Claire, CREAM GATHERER, C.N.P. PCP - General 03/26/17 02/27/19 [address] [place] [address] documented as of this encounter
--- OUTSIDE RECORDS SUMMARY | 2022-08-19 06:57 | XMS_ITS | Encounter Summary ---
:1975 Author Organization [facility] Address [address] [place] [address] Care Team Providers Name Role Phone Markos Claire APRN, C.N.P. Primary Care Provider [phone] Reason for Visit Reason Comments Med Refill Encounter Details Date Type Department Care Team Description 01/20/2018 Refill Department of Internal Medicine Roula Claire APRN, Med Refill in [facility] C.N.P. [address] [place] [address] [place] [address] (Wo rk) Social History Tobacco Use Types [...] you attend protestant or Patient refused 2020 advent services? Do [...] to pay for the very basics like [employer] hard 07/17/2021 food, housing, medical care, and [...] Telephone Encounter - Lorna Sadler L.P.N. - 01/20/2018 10:01 AM CDT prescription for adderall taken to the information desk. Telephone Encounter - Vonnie Wells - 01/20/2018 7:52 AM CDT Nurse review: Unable to pend medication; Stimulant Primary Provider: Markos Claire ?? Name of medication: Adderall Strength: 5 mg Frequency: Take one tablet by mouth twice daily in the morning and at noon. Quantity: 60 Last Refill: 12/18/2017 ?? [facility]: [facility] documented in this encounter Plan of Treatment Not on filedocumented as of this encounter Visit Diagnoses Not on filedocumented in this encounter Care Teams Otolaryngology Physician Relationship Specialty Start Date End Date Markos Claire, ELA, C.N.P. PCP - General 03/26/17 02/27/19 [address] [place] [address] documented as of this encounter
--- OUTSIDE RECORDS SUMMARY | 2022-08-19 06:57 | XMS_ITS | Encounter Summary ---
:1975 Author Organization [facility] Address [address] [place] [address] Care Team Providers Name Role Phone Markos Claire APRN, C.N.P. Primary Care Provider [phone] Encounter Details Date Type Department Care Team Description 03/24/2018 Clinical Communication Department of Internal Markos Claire, Medicine in [facility] ELA, C.N. P. [place] [facility] [address] [place] [phone] Social History Tobacco Use Types Packs/Day Years [...] you attend christian or Patient refused 2020 protestant services? Do [...] Telephone Encounter - Adeline Mari L.P.N. - 03/29/2018 8:43 AM CDT Patient notified. Telephone Encounter - Markos Claire APRN C.N.P. - 03/26/2018 5:14 PM CDT The believe that work is aggravating his shoulder in making it feel worse. I do not have many other options other than placing him on a narcotic for pain relief, and I do not believe in using a narcotic to mask the pain when the shoulder is being over used. His MRI is Thursday, continue the naproxen and conservative treatment such as heat and cold until we have a better understanding of what is actually wrong with his shoulder. If he does have something wrong with the shoulder on his MRI, he will haveto be placed on restrictions for work. Telephone Encounter - Judie Osuna L.P.N. - 03/26/2018 9:13 AM CDT Spoke with pt and he stated that he is using the Naproxen and it is not effective. Pt stated that hecan not be out of work because they are short handed at work and he has a family to support so he can't afford to miss work. Telephone Encounter - Markos Claire APRN, C.N.P. - 03/25/2018 3:47 PM CDT I had placed him on prescription Naproxen. Is he using this? The message below does not state this. Also, if his shoulder is hurting that bad, and work is making it worse, he should not be working. This alone will make his shoulder feel better. At least part of the problem is overuse. I can give him a note to be off of work until the MRI is done. Telephone Encounter - Dee Bryant - 03/25/2018 2:08 PM CDT Patient calling back regarding below message and was expecting a phone call back yesterday. Please call before 3:00 as pateint works at 3. Please call [phone]. Telephone Encounter - Judie Osuna L.PPatriciaN. - 03/24/2018 2:30 PM CDT Current pain is 10 Hard to sleep at night Current ordered medication not working (Flexeril) Use of OTC Ice hot is not effective Soaking shoulder in warm water is not effective Ice and heat is not effective Otc tylenol or Ibu is not effective. 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 Pain over the last 7 days has been a 10 Pt stated that if there is a new Rx that needs to be sent to the pharm. Or picked up it is okay to leave a message on his phone as he is at work and can not answer his phone while working. Telephone Encounter - Brenda Potter - 03/24/2018 2:05 PM CDT Patient is calling regarding his shoulder pain. He wanted to know if you might put him on something a little stronger, he has his MRI on Aly and follow up with you that day also. Please call him back at [phone] documented in this encounter Plan of Treatment Not on filedocumented as of this encounter Visit Diagnoses Not on filedocumented in this encounter Care Teams Prosthodontist/Owner Relationship Specialty Start Date End Date Markos Claire, ELA, C.N.P. PCP - General 03/26/17 02/27/[address] [address] documented as of this encounter
--- OUTSIDE RECORDS SUMMARY | 2022-08-19 06:57 | XMS_ITS | Encounter Summary ---
:1975 Author Organization [facility] Address [address] [place] [address] Care Team Providers Name Role Phone Markos Claire APRN, C.N.P. Primary Care Provider [phone] Reason for Visit Reason Comments Med Refill Encounter Details Date Type Department Care Team Description 10/19/2017 Refill Department of Cardiovascular [facility] Pipo georges Anthony Med Refill Diseases in [place] [address] [place] [address] [place] [address] [place] [address] Social History Tobacco Use Types Packs/Day Years [...] you attend hinduism or Patient refused 2020 jehovah's witness services? [...] or slept in a jail (including now)? Sex Assigned at Date Recorded Not on file documented as of this encounter Plan of Treatment Not on filedocumented as of this encounter Visit Diagnoses Not on filedocumented in this encounter Care Teams Operations Project Manager Relationship Specialty Start Date End Date Markos Claire APRN, C.N.P. PCP - General 03/26/17 02/27/[address] [address] documented as of this encounter
--- OUTSIDE RECORDS SUMMARY | 2022-08-19 06:57 | XMS_ITS | Encounter Summary ---
:1975 Author Organization [facility] Address [address] [place] [address] Care Team Providers Name Role Phone Markos Claire APRN, C.N.P. Primary Care Provider [phone] Reason for Visit Reason Comments Med Refill Encounter Details Date Type Department Care Team Description 09/22/2017 Refill Department of Internal Adeline Mari, L.P.N. Med Refill Medicine in [place], [place] [address] [place] [address] [facility] [phone] Social History Tobacco Use Types Packs/Day Years Used Date Smoking Tobacco: Never Alcohol Habits Answer Date Recorded How often [...] you attend advent or Patient refused 2020 sikhism services? Do [...] this encounter Miscellaneous Notes Telephone Encounter - Leny Morel D.N.P., C.N.P., R.N. - 09/22/2017 11:45 AM CST I will refill for one month, but can you help him set up an appointment to see Markos again. His note from March stated he wanted to see him back in no more than 6 months for follow up regarding his ADHD and I see he has no upcoming appointments. UNITY NUTRITION EDUCATOR Telephone Encounter - Adeline Mari L.P.N. - 09/22/2017 10:50 AM COMMUNITY NUTRITION EDUCATOR Can you fill this in Markos's absence. Patient has been out of medication for 3 days now. Please advise. UNITY NUTRITION EDUCATOR documented in this encounter Plan of Treatment Not on filedocumented as of this encounter Visit Diagnoses Not on filedocumented in this encounter Care Teams Advertising Space Clerk Relationship Specialty Start Date End Date Markos Claire, ELA, C.N.P. PCP - General 03/26/17 02/27/[address] [phone] documented as of this encounter
--- OUTSIDE RECORDS SUMMARY | 2022-08-19 06:57 | XMS_ITS | Encounter Summary ---
:1975 Author Organization [facility] Address [address] [place] [address] Care Team Providers Name Role Phone Markos Claire APRN, C.N.P. Primary Care Provider [phone] Reason for Visit Reason Comments Med Refill Encounter Details Date Type Department Care Team Description 02/21/2018 Refill Department of Internal Medicine Roula Claire APRN, Med Refill in [facility] C.N.P. [address] [place] [address] [place] [address] (Wo rk) Social History Tobacco Use Types [...] you attend mandaeism or Patient refused 2020 episcopal services? Do [...] to pay for the very basics like [employer] hard 07/17/2021 food, housing, medical care, and [...] on filedocumented in this encounter Care Teams Remelt Operator Relationship Specialty Start Date End Date Markos Claire, ELA, C.N.P. PCP - General 03/26/17 02/27/[address] [phone] documented as of this encounter
--- OUTSIDE RECORDS SUMMARY | 2022-08-19 06:57 | XMS_ITS | Encounter Summary ---
:1975 Author Organization [facility] Address [address] [place] [address] Care Team Providers Name Role Phone Markos Claire APRN, C.N.P. Primary Care Provider [phone] Reason for Referral Outpatient (Routine) - Closed Specialty Diagnoses / Procedures Referred By Contact Refer red To Contact Orthopedic Surgery Diagnoses Pain Shoulder Left [facility] C.N[facility] [address] [place] [address] Referral ID Status Reason Start Date Expiration Date Visits Requ ested Visits Authorized [id number] Closed 03/30/2018 03/30/2019 1 1 Scheduling Instructions MRI done Encounter Details Date Type Department Care Team Description 03/30/2018 Orders Only Department of Internal Markos Claire Pa in Shoulder Left Medicine in [facility] ELA, C.N. P. (Primary Dx) [place] [address] [place] [address] Social History Tobacco Use Types [...] you attend congregational or Patient refused 2020 baptism services? Do [...] Priority Associated Order Schedule Diagnoses Orthopedic Surgery - Outpatient Referral Routine Pain Shoulder Left Expected: Shoulder (no prior 8 replacement) (Approximate), surgical consult Expires: (clinic) 03/30/2021 documented as of this encounter Visit Diagnoses Diagnosis Pain Shoulder Left - Primary documented in this encounter Care Teams Pit Slagman Relationship Specialty Start Date End Date Markos Claire, ELA, C.N.P. PCP - General 03/26/17 02/27/[address] [phone] documented as of this encounter
--- OUTSIDE RECORDS SUMMARY | 2022-08-19 06:57 | XMS_ITS | Encounter Summary ---
:1975 Author Organization [facility] Address [address] [place] [address] Care Team Providers Name Role Phone Markos Claire APRN, C.N.P. Primary Care Provider [phone] Encounter Details Date Type Department Care Team Description 03/31/2018 Clinical Communication Department of Internal Markos Claire, Medicine in [facility] ELA, C.N. P. [place] [facility] [address] [place] [phone] Social History Tobacco Use Types Packs/Day Years [...] attend roman catholic or Patient refused 2020 scientologist services? Do [...] a [place] [facility] (including now)? Sex Assigned at Date Recorded Not on file documented as of this encounter Plan of Treatment Not on filedocumented as of this encounter Visit Diagnoses Not on filedocumented in this encounter Care Teams Prison Teacher Relationship Specialty Start Date End Date Markos Claire, ELA, C.N.P. PCP - General 03/26/17 02/27/[address] [phone] documented as of this encounter
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
--- OUTSIDE RECORDS SUMMARY | 2022-08-19 06:57 | XMS_ITS | Encounter Summary ---
:1975 Author Organization [facility] Address [address] [place] [address] Care Team Providers Name Role Phone Markos Claire APRN, C.N.P. Primary Care Provider [phone] Reason for Visit Reason Comments Medication Visit wants pain medication Encounter Details Date Type Department Care Team Description 03/31/2018 Office Visit Department of Internal Markos Claire, [place] in Shoulder Left Medicine in [facility] ELA, C.N. P. (Primary Dx) [place] [address] [place] [address] Social History Tobacco Use [...] you attend muslim or Patient refused 2020 baptism services? Do [...] to pay for the very basics like [employer] hat hard 07/17/2021 food, housing, medical care, [...] Sign Reading Time Taken Comments Blood Pressure 120/80 03/31/2018 3:32 PM CDT Pulse 80 03/31/2018 3:32 PM CDT Temperature - - Respiratory Rate - - Oxygen Saturation - - Inhaled Oxygen Concentration - - Weight 69.1 kg (152 lb 5.4 oz) 03/31/2018 3:32 PM CDT Height - - Body Mass Index 25.2 03/31/2018 1:55 PM CDT documented in this encounter Progress Notes Markos Claire, ELA, C.N.P. - 03/31/2018 3:45 PM CDT CHIEF COMPLAINT/REASON FOR VISIT Discussed pain management in relationship to left shoulder pain HISTORY OF PRESENT ILLNESS Alon Jaimes is seen today to discuss pain management. He regionally saw me at the end of February and described a newer onset left shoulder pain. I had asked him to trial conservative treatment approach and if he did not improve that we would move forward with an MRI. He ultimately did not have any improvement and so an MRI was completed on March 29, 2018. The MRI showed a slap tear, inferior labral tear, biceps tendon intracapsular longitudinal split tear and extra capsular tenosynovitis, supraspinatus tendon tendinosis and subdeltoid/subacromial bursitis. He was referred to Orthopedics and hesaw Dr. Pineda today. Dr. Pineda had recommended surgical correction of his shoulder abnormalities. The patient was hoping to delay surgery until September when work would be slower and there would be a mandatory shut down for several weeks. He then presented to the clinic to discuss pain management between now and September. MEDICATIONS Current Outpatient Prescriptions: ??? acetaminophen (for_TYLENOL) 500 mg tablet, Take 1,000 mg by mouth., Disp: , Rfl: ??? naproxen (NAPROSYN) 500 mg tablet, Take 1 tablet (500 mg total) by mouth 2 (two) times a day as needed for pain (pain)., Disp: 60 tablet, Rfl: 0 ??? nortriptyline (PAMELOR) 50 mg capsule, TAKE ONE CAPSULE BY MOUTH ONCE DAILY, Disp: 90 capsule, Rfl: 3 ??? dextroamphetamine-amphetamine (ADDERALL) 5 mg tablet, Take 1 tablet (5 mg total) by mouth 2 (two) times a day Earliest Fill Date: 01/20/18. CSA 09/10/16, Disp: 60 tablet, Rfl: 0 ??? dextroamphetamine-amphetamine (ADDERALL) 5 mg tablet, Take [...] no reactions ??? Tramadol Rash VITAL SIGNS Blood pressure 120/80, pulse 80, weight 69.1 kg. PHYSICAL EXAMINATION GENERAL:Well-developed male appearing in no acute distress IMPRESSION/REPORT/PLAN 1. Left shoulder pain He require surgery to fix his problem. He works in an environment that continuously aggravates the his shoulder problem. He wonders what he can take for pain management outside of what he has already tried. We had a lengthy discussion today regarding pain management options and the fact that narcotic o ptions would not be indicated given the significant delay between now and his expected surgery in September. This does not leave us with very many good options outside of Tylenol and ibuprofen/naproxen.Patient is going to rethink whether not it is shetty for him to delay surgery until September. He will let us know if he changes his mind. I also discussed placing him on work restrictions, however, he reports that there is no light duty work available and if he is going to be placed on restrictions, andtaken off of work, he just as well have surgery. documented in this encounter Plan of Treatment Not on filedocumented as of this encounter Visit Diagnoses Diagnosis Pain Shoulder Left - Primary documented in this encounter Care Teams Soft Iron Inspector Relationship Specialty Start Date End Date Markos Claire APRN, C.N.P. PCP - General 03/26/17 02/27/[address] [address] documented as of this encounter
--- OUTSIDE RECORDS SUMMARY | 2022-08-19 06:57 | XMS_ITS | Encounter Summary ---
:1975 Author Organization [facility] Address [address] [place] [address] Care Team Providers Name Role Phone Markos Claire APRN, C.N.P. Primary Care Provider [phone] Reason for Visit Reason Onset Date Comments Med Refill 08/21/2017 Encounter Details Date Type Department Care Team Description 08/21/2017 Clinical Communication Department of Vernon Heller am, Med Refill Medicine, [place] ELA, C.N.P. [facility], [facility], [address] [place], [place] [address] [address] [place] [address] [facility] [phone] Social History Tobacco Use Types Packs/Day Years [...] you attend voodoo or Patient refused 2020 caodaism services? Do [...] this encounter Miscellaneous Notes Telephone Encounter - Yessi Morley - 08/21/2017 2:56 PM DATA ANALYTICS DEVELOPER Patient's Evette called to check on his Adderall refill. She indicated that [facility] sent the refill request. Patient will be out this weekend. Please try calling her back at #[phone] ANALYTICS DEVELOPER documented in this encounter Plan of Treatment Not on filedocumented as of this encounter Visit Diagnoses Not on filedocumented in this encounter Care Teams Revenue Manager Relationship Specialty Start Date End Date Markos Claire, ELA, C.N.P. PCP - General 03/26/17 02/27/[address] [address] documented as of this encounter
--- OUTSIDE RECORDS SUMMARY | 2022-08-19 06:57 | XMS_ITS | Encounter Summary ---
:1975 Author Organization [facility] Address [address] [place] [address] Care Team Providers Name Role Phone Markos Claire APRN, C.N.P. Primary Care Provider Reason for Referral MRI/CAT/PET Scan (Routine) - Closed Specialty Diagnoses / Procedures Referred By Contact Refer red To Contact Radiology Diagnoses Pain Shoulder Left Markos Claire APRN, [facility] [place] Region Procedures MR Shoulder Left without IV Contrast NM MRI UPR EXT JOINT WO CNTRST HC MRI UPR EXT JOINT WO CNTRST C.N.P. [address] [place] [phone] Referral ID Status Reason Start Date Expiration Date Visits Requ ested Visits Authorized [id number] Closed 03/10/2018 03/10/2019 1 1 Reason for Visit MRI/CAT/PET Scan (Routine) - Closed Specialty Diagnoses / Procedures Referred By Contact Refer red To Contact Radiology Diagnoses Pain Shoulder Left Markos Claire APRN, [facility] [place] Region Procedures MR Shoulder Left without IV Contrast NM MRI UPR EXT JOINT WO CNTRST HC MRI UPR EXT JOINT WO CNTRST C.N.P. [address] [place] [phone] Referral ID Status Reason Start Date Expiration Date Visits Requ ested Visits Authorized [id number] Closed 03/10/2018 03/10/2019 1 1 Encounter Details Date Type Department Care Team Description 03/29/2018 Hospital Encounter Department of Markos Claire, Pain Shoulder Left Radiology in [place] [facility] [place], [place] [address] [place] [phone] Social History Tobacco Use Types Packs/Day Years [...] or relatives? How often do you attend yazdanism or Patient refused 2020 mosque services? Do you belong to any clubs or No 07/17/2021 organizations such as yazdanism groups, unions, fraternal or athletic groups, or [...] of this encounter Progress Notes Adeline Mari L.P.N. - 03/29/2018 11:59 PM CDT Patient notified and transferred to set up appointment. documented in this encounter Plan of Treatment Not on filedocumented as of this encounter Procedures Procedure Name Priority Date/Time Associated Comments Diagnosis MR SHOULDER LEFT RAD - Routine 03/29/2018 3:55 Pain Shoulder Result s for this WITHOUT IV (most inpatients PM CDT Left procedure a re in CONTRAST and all the results outpatients) section. documented in this encounter Results MR Shoulder Left without IV Contrast (03/29/2018 3:55 PM CDT) Anatomical Region Laterality Modality Upper Extremity, Shoulder, Musculoskeletal RST LOS Left Magnetic Resonance Specimen (Source) Anatomical Collection Method Collection Time Re ceived Time Location / / Volume Laterality 03/29/2018 4:38 PM CDT Impressions 03/29/2018 4:49 PM CDT IMPRESSION: 1. ??SLAP tear. 2. ??Inferior labral tear. 3. ??Biceps tendon has intracapsular larisa gitudinal split tear and extracapsular tenosynovitis. 4. ??Supraspinatus tendon has marked ins ertional tendinosis with greater tuberosity having marked reactive marrow edema. 5. ??Mild subdeltoid/subacromial bursiti s. Narrative 03/29/2018 4:49 PM CDT EXAM: MR SHOULDER LEFT WITHOUT IV CONTRAST COMPARISON: Radiograph 03/10/18 FINDINGS: Motion artifact distortion low ers sensitivity. MARROW: No fractures or contusions. CAPSULE: Intact. SYNOVIUM: No glenohumeral joint effusion . GLENOHUMERAL ARTICULAR CARTILAGE: Articu lar cartilage has no defects. GLENOID LABRUM: There is superior labral anterior to posterior tear (series 5 image 13). There is inferior labral tear (series 5 image 11). LONG HEAD BICEPS TENDON: Intracapsular b iceps tendon has longitudinal split tear. Extracapsular biceps tendon has mo derate tenosynovitis. ROTATOR CUFF TENDONS: Negative for rotat or cuff tear. Supraspinatus tendon has marked insertional tendinosis. The anter ior greater tuberosity has marked reactive marrow edema and small subchond ral cysts. Moderate infraspinatus tendinosis. Mild subscapularis tendinosi s. Normal teres minor tendon. SUBDELTOID/SUBACROMIAL BURSA: Mild incre ased fluid compatible with bursitis. MUSCLES: No atrophy or edema of rotator cuff or deltoid muscles. ACROMIOCLAVICULAR JOINT: Type II acromio n. ??Minimal hypertrophy of the joint. Procedure Note Kanu Agrawal M.D. - 03/29/2018 EXAM: MR SHOULDER LEFT WITHOUT IV CONTRA ST COMPARISON: Radiograph 03/10/18 FINDINGS: Motion artifact distortion low ers sensitivity. MARROW: No fractures or contusions. CAPSULE: Intact. SYNOVIUM: No glenohumeral joint effusion . GLENOHUMERAL ARTICULAR CARTILAGE: Articu lar cartilage has no defects. GLENOID LABRUM: There is superior labral anterior to posterior tear (series 5 image 13). There is inferior labral tear (series 5 image 11). LONG HEAD BICEPS TENDON: Intracapsular b iceps tendon has longitudinal split tear. Extracapsular biceps tendon has mo derate tenosynovitis. ROTATOR CUFF TENDONS: Negative for rotat or cuff tear. Supraspinatus tendon has marked insertional tendinosis. The anter ior greater tuberosity has marked reactive marrow edema and small subchond ral cysts. Moderate infraspinatus tendinosis. Mild subscapularis tendinosi s. Normal teres minor tendon. SUBDELTOID/SUBACROMIAL BURSA: Mild incre ased fluid compatible with bursitis. MUSCLES: No atrophy or edema of rotator cuff or deltoid muscles. ACROMIOCLAVICULAR JOINT: Type II acromio n. Minimal hypertrophy of the joint. IMPRESSION: 1. SLAP tear. 2. Inferior labral tear. 3. Biceps tendon has intracapsular longi tudinal split tear and extracapsular tenosynovitis. 4. Supraspinatus tendon has marked inser tional tendinosis with greater tuberosity having marked reactive marrow edema. 5. Mild subdeltoid/subacromial bursitis. Markos Claire APRN, C.N.P. IMG MRI PROCEDURES documented in this encounter Visit Diagnoses Diagnosis Pain Shoulder Left documented in this encounter Care Teams Corrections Caseworker Relationship Specialty Start Date End Date Markos Claire APRN, C.N.P. PCP - General 03/26/17 02/27/[address] [address] documented as of this encounter
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
--- OUTSIDE RECORDS SUMMARY | 2022-08-19 06:57 | XMS_ITS | Encounter Summary ---
:1975 Author Organization [facility] Address [address] [place] [address] Care Team Providers Name Role Phone Markos Claire APRN, C.N.P. Primary Care Provider [phone] Reason for Visit Reason Onset Date Comments Med Refill 09/21/2017 Encounter Details Date Type Department Care Team Description 09/21/2017 Clinical Communication Department of Vernon Heller am, Med Refill Medicine, [place] ELA, C.N.P. [facility], [facility], [address] [place], [place] [address] [address] [place] [address] [facility] [phone] Social History Tobacco Use Types Packs/Day Years [...] you attend mu-ism or Patient refused 2020 oriental orthodox services? [...] - Leny Morel D.N.P., C.N.P., R.N. - 09/29/2017 2:07 PM CST Order placed for future lab. He can return and complete it when he is able R INSTALLER Telephone Encounter - Marilyn Lizama L.P.N. - 09/29/2017 2:02 PM VISOR INSTALLER ----- Message from Haily Keyes sent at 09/29/2017 12:43 PM VISOR INSTALLER ----- Regarding: more orders needed Pt came down to get labs after his appointment with Maria Teresa. He couldn't wait. More orders will need to be placed in EPIC. Thank you R INSTALLER Telephone Encounter - Lavonne Mendiola L.PKate - 09/22/2017 4:13 PM CST Rx to info desk. aware. R INSTALLER Telephone Encounter - Maria Ines Gan - 09/22/2017 12:46 PM CST Pt returning call to Lavonne, please call back R INSTALLER Telephone Encounter - Evette Andersen R.N. - 09/21/2017 1:49 PM CST Note entered in error R INSTALLER Telephone Encounter - Terri Zaman - 09/21/2017 1:30 PM CST Pt calling for monthly Adderall rx. 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 Patient states he no longer has any rx. Please call patient at [phone] when ready. R INSTALLER documented in this encounter Plan of Treatment Not on filedocumented as of this encounter Visit Diagnoses Not on filedocumented in this encounter Care Teams Ichthyologist Relationship Specialty Start Date End Date Markos Claire, ELA, C.N.P. PCP - General 03/26/17 02/27/[address] [address] documented as of this encounter
--- OUTSIDE RECORDS SUMMARY | 2022-08-19 06:57 | XMS_ITS | Encounter Summary ---
:1975 Author Organization [facility] Address [address] [place] [address] Care Team Providers Name Role Phone Markos Claire APRN, C.N.P. Primary Care Provider [phone] Encounter Details Date Type Department Care Team Description 03/03/2018 Nurse Triage Department of Nohemy Monteiro R.N. Medicine, [facility], in [address] [place], [place] [address] [place] [address] [place] [address] [phone] Social History Tobacco Use Types Packs/Day Years [...] you attend gnosticism or Patient refused 2020 oriental orthodox services? [...] on filedocumented in this encounter Care Teams Power Press Tender Relationship Specialty Start Date End Date Markos Claire, ELA, C.N.P. PCP - General 03/26/17 02/27/[address] [address] documented as of this encounter
--- OUTSIDE RECORDS SUMMARY | 2022-08-19 06:57 | XMS_ITS | Encounter Summary ---
:1975 Author Organization [facility] Address [address] [place] [address] Care Team Providers Name Role Phone Markos Claire APRN, C.N.P. Primary Care Provider [phone] Reason for Visit Reason Comments Communication Encounter Details Date Type Department Care Team Description 10/13/2017 Clinical Communication Department of Internal Markos Claire, Communication Medicine in [place], ELA, C.N. P. [place] [address] [place] [phone] Social History Tobacco Use Types Packs/Day Years [...] you attend pentecostalism or Patient refused 2020 yarsanism services? Do [...] on filedocumented in this encounter Care Teams Government Guard Relationship Specialty Start Date End Date Markos Claire, ELA, C.N.P. PCP - General 03/26/17 02/27/[address] [phone] documented as of this encounter
--- OUTSIDE RECORDS SUMMARY | 2022-08-19 06:57 | XMS_ITS | Encounter Summary ---
:1975 Author Organization [facility] Address [address] [place] [address] Care Team Providers Name Role Phone Markos Claire APRN, C.N.P. Primary Care Provider [phone] Reason for Visit Reason Comments Med Refill Encounter Details Date Type Department Care Team Description 10/19/2017 Refill Department of Internal Medicine Roula Claire APRN, Med Refill in [facility] C.N.P. [address] [place] [address] [address] [place] [address] (Wo rk) Social History Tobacco Use Types [...] you attend tenriism or Patient refused 2020 buddhism services? Do [...] to pay for the very basics like [employer] hard 07/17/2021 food, housing, medical care, and [...] this encounter Miscellaneous Notes Telephone Encounter - Piop Minor L.P.N. - 10/19/2017 10:29 AM SAND MIXER MACHINE Sent to pcp MIXER MACHINE Telephone Encounter - Desiree Nicole - 10/19/2017 10:00 AM CST Nurse review: Unable to propose medication; CS med Primary Provider: Markos Calire Name of medication: Adderall Strength: 5 mg tab Frequency: Take 1 tab PO in the morning and one at noon Quantity: 60 Refills: Last Refill: 09/22/2017 Pharmacy: [facility] MIXER MACHINE documented in this encounter Plan of Treatment Not on filedocumented as of this encounter Visit Diagnoses Not on filedocumented in this encounter Care Teams Mill Washer Relationship Specialty Start Date End Date Markos Claire, ELA, C.N.P. PCP - General 03/26/17 02/27/19 [address] [place] [address] documented as of this encounter
--- OUTSIDE RECORDS SUMMARY | 2022-08-19 06:57 | XMS_ITS | Encounter Summary ---
:1975 Author Organization [facility] Address [address] [place] [address] Care Team Providers Name Role Phone Markos Claire APRN, C.N.P. Primary Care Provider [phone] Encounter Details Date Type Department Care Team Description 02/05/2018 Hospital Encounter Department of Radiology Angela Claire, Pain Leg [facility] [place], C.N.P. [address] [place] [address] [address] [place], [place] [phone] [address] Social History Tobacco Use Types Packs/Day [...] you attend faith or Patient refused 2020 sabianist services? Do [...] mouth. tablet cyclobenzaprine Take 1 tablet (5 mg 30 tablet 0 09/29/2017 03/31/2018 (for_FLEXERIL) 5 mg total) by mouth 3 tabletIndications: Pain (three) times a day Low Back Unspecified as needed for muscle spasms. dextroamphetamine-amphetam Take 1 tablet (5 mg 60 tablet 0 01/20/2018 04/22/2018 ine (ADDERALL) 5 mg tablet total) by mouth 2 (two) times a day Earliest Fill Date: 01/20/18. CSA 09/10/16 dextroamphetamine-amphetam Take 1 tablet (5 mg 60 tablet 0 02/19/2018 04/27/2018 ine (ADDERALL) 5 mg tablet total) by mouth 2 (two) times a day Earliest Fill Date: 02/18/18. CSA 09/10/16 dextroamphetamine-amphetam Take 1 tablet (5 mg 60 tablet 0 03/21/2018 03/10/2018 ine (ADDERALL) 5 mg tablet total) by mouth 2 (two) times a day Earliest Fill Date: 03/20/18. CSA 09/10/16 nortriptyline 0 09/12/2017 02/21/2018 (for_PAMELOR) 50 mg capsule documented as of this encounter Plan of Treatment Not on filedocumented as of this encounter Procedures Procedure Name Priority Date/Time Associated Comments Diagnosis DX TIBIA FIBULA RAD - Routine 02/05/2018 8:38 Pain Leg Results for this LEFT 2 VIEWS (most inpatients AM CDT procedure a re in and all the results outpatients) section. documented in this encounter Results DX Tibia Fibula Left [...] IMPRESSION: Negative tibia and fibula. Markos Claire APRN C.N.P. IMG DIAGNOSTIC IMAGING PROC EDURES documented in this encounter Visit Diagnoses Diagnosis Pain Leg documented in this encounter Care Teams Manpower Development Specialist Relationship Specialty Start Date End Date Markos Claire APRN, C.N.P. PCP - General 03/26/17 02/27/19 [address] [place] [address] documented as of this encounter
--- OUTSIDE RECORDS SUMMARY | 2022-08-19 06:57 | XMS_ITS | Encounter Summary ---
:1975 Author Organization [facility] Address [address] [place] [address] Care Team Providers Name Role Phone Markos Claire APRN, C.N.P. Primary Care Provider [phone] Encounter Details Date Type Department Care Team Description 09/29/2017 Abstract [facility] [address] [address] Social History Tobacco Use Types Packs/Day Years [...] you attend bahai or Patient refused 2020 uatsdin services? Do [...] on filedocumented in this encounter Care Teams Quoter Relationship Specialty Start Date End Date Markos Claire, LEA, C.N.P. PCP - General 03/26/17 02/27/[address] [phone] documented as of this encounter
--- OUTSIDE RECORDS SUMMARY | 2022-08-19 06:57 | XMS_ITS | Encounter Summary ---
:1975 Author Organization [facility] Address [address] [place] [address] Care Team Providers Name Role Phone Markos Claire APRN C.N.P. Primary Care Provider [phone] Reason for Referral Outpatient (Routine) - Closed Specialty Diagnoses / Procedures Referred By Contact Refer red To Contact Community Internal Diagnoses Pain Low Back Unspecified Leny Morel, [facility] Region Medicine ELA, C.N.P., D.N.P. [address] [place] [address] Referral ID Status Reason Start Date Expiration Date Visits Requ ested Visits Authorized [id number] Closed 09/29/2017 03/28/2018 1 1 F CARRIER Reason for Visit Reason Comments Back Pain Encounter Details Date Type Department Care Team Description 09/29/2017 Office Visit Department of Leny Morel, Pain Low Back (Primary Internal Medicine in ELA, C.N.P., Dx) [place], [place] D.N.P. [address] [place] [phone] Social History Tobacco Use Types Packs/Day Years [...] you attend judaism or Patient refused 2020 church services? Do [...] Sign Reading Time Taken Comments Blood Pressure 130/82 09/29/2017 10:08 AM PROOF CARRIER Pulse 92 09/29/2017 10:08 AM PROOF CARRIER Temperature - - Respiratory Rate 16 09/29/2017 10:08 AM PROOF CARRIER Oxygen Saturation - - Inhaled Oxygen Concentration - - Weight 70.2 kg (154 lb 12.2 oz) 09/29/2017 10:08 AM PROOF CARRIER Height - - Body Mass Index 27.08 06/16/2017 1:56 PM CDT documented in this encounter Progress Notes Leny Morel D.N.P., C.N.P., R.N. - 09/29/2017 10:30 AM CST SUBJECTIVE CHIEF COMPLAINT / REASON FOR VISIT Alon Jaimes is a 41 y.o. male who presents for evaluation of Back Pain. HISTORY OF PRESENT ILLNESS HPI Patient is a 41-year-old male at the clinic accompanied by his today for evaluation of recurrence of back pain. He was last seen for this condition back in May of 2015 by his primary care provider Markos Claire CNP who worked him up for radicular back pain with MRI and x-ray. At that time he was diagnosed with mechanical back pain and was given Flexeril and a small amount of [place] and recommended PT. Patient did not follow through with physical therapy but did say that the Flexeril and [place] helped. Since then his back pain has been intermittent, but he reports that it has worsened over the last few months. Pain is primarily in the low back. Difficult to say if it radiates are not as sometim es he says it does and sometimes he says it does not. Describes the pain as stabbing and burning. Itis aggravated by his work and overuse. It is alleviated by resting. Fortunately he reports that he will be working the next 2 days but after that his company will be closed for a week for the holidays and therefore he will have time to rest. He has been using [id number] muscle cream with little benefit. He rates his pain at 8/10. He does incidentally also reports some frequency in urination anddysuria. He has a history of kidney stones. He reports that they have routine stretching at work andhe has been having difficulty primarily with flexion. He reports that the back pain has made it quite difficult for him to sleep. SOCIAL HISTORY Reports using chewing tobacco. Denies any alcohol use. 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 PAST MEDICAL/SURGICAL HISTORY Patient Active Problem List Diagnosis ??? Anxiety ??? Dizziness ??? Headache Daily ??? Presbyopia ??? Alcohol Dependence Uncomplicated (HCC) ??? Pain Low Back Past Surgical History: Procedure Laterality Date ??? CLOSURE OF SKIN BY SUTURE N/A 05/28/2007 Closure of Skin and Subcutaneous Tissue Other Sites ??? DECOMPRESSION OF MEDIAN NERVE N/A 05/30/2013 Carpal tunnel release FAMILY HISTORY Family History Relation Problem Comments Father Alcohol abuse MEDICATIONS Current Outpatient Prescriptions on File Prior to Visit Medication Sig Nortriptyline 50 milligrams Daily ??? dextroamphetamine-amphetamine (for_ ADDERALL) 5 mg tablet Take 1 tablet (5 mg total) by mouth 2 (two) times a day Earliest Fill Date: 12/12/17. Take AM and Noon CSA 09/10/16 ALLERGIES Allergies Allergen Reactions ??? Ketorolac Other (see comments) Cerner listed no reactions ??? Latex Other (see comments) Cerner listed no reactions ??? Penicillins Other (see comments) Cerner listed no reactions ??? Tramadol Rash REVIEW OF SYSTEMS Constitutional: Negative for fatigue, fever, loss of appetite and night sweats. Skin: Negative. Eyes: Negative. Respiratory: Negative for shortness of breath. Cardiovascular: Negative for chest pain, pressure or tightness. Gastrointestinal: Negative for constipation and diarrhea. Genitourinary: Positive for pain with urination and frequency. Negative for incontinence and blood in urine. Musculoskeletal: Positive for back pain and muscle pain/stiffness. Neurological: Negative for loss of balance or tendency to fall easily. All other systems reviewed and are negative. OBJECTIVE PHYSICAL EXAM Physical Exam GENERAL: Patient alert and oriented appearing in no acute distress. Well-groomed and dressed appropriately HEENT: Head normocephalic, atraumatic. Sclerae clear without injection. Conjunctivae without drainage, erythema or matting. CARDIAC: S1 and S2 present with regular rate and rhythm. No murmurs or S3, S4 auscultated. RESPIRATORY: Clear to auscultation bilaterally posteriorly without rhonchi, wheezes, or crackles. Nocough on exam today. Respirations are easy and unlabored MUSCULOSKELETAL: Gait normal. normal movement of all extremities. No upper or lower extremity edema.Limited flexion, extension and rotation of the spine due to pain. 5/5 strength in lower extremities bilaterally. Unable to complete straight leg raise test due to pain with physical exam. Pain with palpation along the lumbar sacral spine and iliac crest bilaterally. VITAL SIGNS: BP 130/82 (BP Location: Right arm, Patient Position: Sitting, Cuff Size: Regular) Pulse 92 Resp 16 Wt 70.2 kg BMI 27.08 kg/m?? ASSESSMENT / PLAN 1. Mechanical low back pain: Discussed with patient that this is the likely exacerbation of his previously diagnosed mechanical low back pain. Encouraged him to continue to use nonpharmacological measures to do with his pain including ice and or heat depending on which is more comfortable. Encouraged him to use the time off of work to rest his back. Also prescribed a small amount of Flexeril and advised him to take this in the evening to help him sleep. Advised him to avoid using when he needs to work and is operating heavy machinery. Also prescribed him a methylprednisolone Dosepak to help with perceived radiculopathy and other signs of inflammation. Advised patient that this could exacerbate his ADHD and to discontinue use if symptoms are too severe. Also given a referral to physical therapy and encouraged to make an appointment after current flare has subsided. 2. Urinary symptoms: Due to new onset dysuria and increased frequency of urination I have ordered a UA today. Advised patient that if this is positive that we will treat and that he should follow up with his primary as this would be unusual for a young healthy male. 3. ADHD: I recently provided patient with a refill on his Adderall after request came through from pharmacy. I advised patient that per Markos Claire's recommendations he needed to make a follow-up appointment with him for follow-up on his ADHD before any more of this medication would be prescribed. Patient verbalized understanding of this and will make a follow-up appointment on his way out. Patient verbalized understanding of the plan of care and was in agreement. All questions were answered today. Total time 25 minutes, greater than 15 minutes spent counseling back pain differentials and nonpharmacological management of back pain. F CARRIER documented in this encounter Plan of Treatment Scheduled Referrals Name Type Priority Associated Diagnoses Order S [facility] Internal Outpatient Referral Routine Pain Low Back E xpected: Medicine office 10/06/2017 visit (clinic) (Approximate) , Expires: 09/29/2020 documented as of this encounter Visit Diagnoses Diagnosis Pain Low Back Unspecified - Primary documented in this encounter Care Teams Pan Devulcanizer Helper Relationship Specialty Start Date End Date Markos Claire APRN, C.N.P. PCP - General 03/26/17 02/27/19 [address] [place] [address] documented as of this encounter
--- OUTSIDE RECORDS SUMMARY | 2022-08-19 06:57 | XMS_ITS | Encounter Summary ---
:1975 Author Organization [facility] Address [address] [place] [address] Care Team Providers Name Role Phone Markos Claire APRN, C.N.P. Primary Care Provider [phone] Encounter Details Date Type Department Care Team Description 09/29/2017 Abstract [facility] [address] [address] Social History Tobacco Use [...] you attend christianity or Patient refused 2020 hinduism services? Do [...] on filedocumented in this encounter Care Teams Rotor Balancer Relationship Specialty Start Date End Date Markos Claire, ELA, C.N.P. PCP - General 03/26/17 02/27/[address] [phone] documented as of this encounter
[2022-08-19 06:58] LABS: Creatinine* 0.8 mg/dL (0.5-1.5); Est. Creatinine Clearance* 94.56; Estimated Glomerular Filt Rate 109 ml/min
--- OUTSIDE RECORDS SUMMARY | 2022-08-19 06:58 | XMS_ITS | Encounter Summary ---
:1975 Author Organization [facility] Address [address] [place] [address] Care Team Providers Name Role Phone Markos Claire APRN, C.N.P. Primary Care Provider [phone] Encounter Details Date Type Department Care Team Description 06/10/2017 Hospital Encounter HX [facility] INTERNMED Markos Claire APRN, C.N.P. [address] [place] [address] (Wo rk) Social History Tobacco Use [...] you attend hoahaoism or Patient refused 2020 gnosticist services? Do [...] documented as of this encounter Progress Notes Markos Claire, ELA, C.N.P. - 06/10/2017 7:53 AM CDT [id number] CHIEF COMPLAINT/REASON FOR VISIT Followup right ear problem. HISTORY OF PRESENT ILLNESS Mr. Van is seen today for followup on right ear discomfort. He presented to the [facility] June 05, 2017, for right ear pain. At that time he had been having ear discomfort for a couple of weeks but that had been getting worse. He was diagnosed with a cerumen impaction and apparently had ear lavage. After the ears were flushed it was felt that a perforation in the eardrum was seen in the inferior portion of the year. He was prescribed Ciprodex drops which he has been using and had arranged followup today. He continues to report some discomfort in the right ear with the sensation that he is having some drainage but he has not been able to visualize any. He quit using foam ear plugs at work and has gone to ear muffs and this has helped a bit. He reports history of having multiple ear infections as well as ear tubes as a young child before age 8 but have not having had significant problems with his earssince that time. MEDICATIONS Reviewed. No changes per EMR. ALLERGIES Latex. Penicillin. Toradol. VITAL SIGNS Pulse 72, blood pressure 98/74, weight 66.4 kg. PHYSICAL EXAMINATION GENERAL: Well-developed male, no acute distress. Alert, oriented. EARS: Left TM pearly lawrence, canal clear. Right TM appears retracted with cerumen sitting very close to the tympanic membrane. I personally am not able to visualize the perforation today but he does havea moderate amount of canal swelling. No obvious significant drainage noted on exam today. IMPRESSION/REPORT/PLAN 1. Ear pain. 2. Otitis externa. PLAN: Continue with the Ciprodex. His ear exam is abnormal enough that I would like him to be seen by ENT. He may need suction to remove the ear wax that is sitting so close to his tympanic membrane. Ialso want him evaluated in the setting of potential [facility]. He is tentatively scheduled for June 16, 2017. Return sooner to the clinicor ER if he were to have acute increase in ear pain or difficulties with his hearing. Laurie LittleNCristine/kobe Electronically Signed By: MARKOS CLAIRE APRN RN On: 06/16/2017 09:56 AM Source: [facility] [email or web address] Document Id: [id number] documented in this encounter Plan of Treatment Not on filedocumented as of this encounter Visit Diagnoses Not on filedocumented in this encounter Care Teams Photography Teacher Relationship Specialty Start Date End Date Markos Claire APRN, C.N.P. PCP - General 03/26/17 02/27/[address] [phone] documented as of this encounter
--- OUTSIDE RECORDS SUMMARY | 2022-08-19 06:58 | XMS_ITS | Encounter Summary ---
:1975 Author Organization [facility] Address [address] [place] [address] Care Team Providers Name Role Phone Unavailable Primary Care Provider Unavailable Encounter Details Date Type Department Care Team Description 08/04/2015 Hospital Encounter HX NO MAPPING Hasmukh Pérez M.D. [address] [place] [address] (Wo rk) Social History Tobacco Use Types Packs/Day Years Used Date Smoking Tobacco: Never Assessed Alcohol Habits Answer Date Recorded How often [...] you attend christianity or Patient refused 2020 shinto services? Do [...] Concentration - - Weight - - Height 161 cm (5' 3.39) 08/04/2015 11:37 PM CDT Body Mass Index - - documented in this encounter Plan of Treatment Not on filedocumented as of this encounter Visit Diagnoses Not on filedocumented in this encounter
--- OUTSIDE RECORDS SUMMARY | 2022-08-19 06:58 | XMS_ITS | Encounter Summary ---
:1975 Author Organization [facility] Address [address] [place] [address] Care Team Providers Name Role Phone Unavailable Primary Care Provider Unavailable Encounter Details Date Type Department Care Team Description 06/01/2015 Hospital Encounter HX [facility] Markos Claire AP RN, C.N.P. [address] [place], [place] [phone] (Wo rk) Social History [...] or relatives? How often do you attend rastafarian or Patient refused 2020 zoroastrian services? Do you belong to any clubs or No 07/17/2021 organizations such as rastafarian groups, unions, fraternal or athletic groups, or [...] - - Height 161 cm (5' 3.39) 06/01/2015 9:29 AM CDT Body Mass Index - - documented in this encounter Miscellaneous Notes Miscellaneous - Markos Claire, ELA, C.N.P. - 06/04/2015 9:18 AM CDT Results Notification Document Contains Addenda Addendum by LILIANE HAYES LPN on 05 June 2015 09:54:47 CDT patient notified From: MARKOS CLAIRE CONTINUOUS STILL OPERATOR To: DARYN Claire Nurse; Sent: 06/04/2015 09:18:40 CDT ! Show up: 06/04/2015 09:18:40 CDT Subject: Results Notification Actions: Notify patient of results Reminder Comments: TSH remains mildly abnormal (high), but T4 level is normal. Recommend rechecking TSH and Free T4 in 3 months. Dx: abnormal thyroid function Results: Date Result Name Ind Value Ref Range 06/01/2015 09:36 TSH (H) 5.98 mIU/L (0.27 - 4.20) 06/01/2015 09:36 T4 Free 1.24 ng/dL (0.90 - 1.70) Source: [facility] [email or web address] Document Id: [id number] Electronically signed by Conversion, [facility] Occupational Therapist'S Assistant [id number] at 03/09/2017 2:00 AM CDT documented in this encounter Plan of Treatment Not on filedocumented as of this encounter Procedures Procedure Name Priority Date/Time Associated Diagnosis Comme nts THYROID-STIMULATING Routine 06/01/2015 9:36 AM Re sults for this HORMONE-SENSITIVE CDT procedure are in (S-TSH) the results section. T4 (THYROXINE), Routine 06/01/2015 9:36 AM Result s for this FREE, S CDT procedure are i n the results section. documented in this encounter Results T4 (Thyroxine), Free (06/01/2015 9:36 AM CDT) P athologist Signature T4 (Thyroxine), 1.24 0.90 - 1.70 POWERCHART Free, S NGDL Specimen (Source) Anatomical Collection Method Collection Time Re ceived Time Location / / Volume Laterality Blood 06/01/2015 9:36 AM CDT Markos Claire APRN, C.N.P. LAB BLOOD ADD-ON Performing Organization Address City/State/ZIP Code Phon e Number POWERCHART (ABNORMAL) Thyroid-Stimulating Hormone-Sensitive (s-TSH) (06/01/2015 9:36 AM CDT) P athologist Signature TSH 5.98 (H) 0.27 - POWERCHART (Thyrotropin) 4.20 MIUL Specimen (Source) Anatomical Collection Method Collection Time Re ceived Time Location / / Volume Laterality Blood 06/01/2015 9:36 AM CDT Markos Claire APRN, C.N.P. LAB BLOOD ADD-ON Performing Organization Address City/State/ZIP Code Phon e Number POWERCHART documented in this encounter Visit Diagnoses Not on filedocumented in this encounter
--- OUTSIDE RECORDS SUMMARY | 2022-08-19 06:58 | XMS_ITS | Encounter Summary ---
:1975 Author Organization [facility] Address [address] [place] [address] Care Team Providers Name Role Phone Unavailable Primary Care Provider Unavailable Encounter Details Date Type Department Care Team Description 06/06/2015 Hospital Encounter HX [facility] Markos Claire, BROWN RN, C.N.P. [address] [place], [place] [phone] (Wo rk) Social History [...] you attend worship or Patient refused 2020 episcopalian services? Do [...] - - Height 161 cm (5' 3.39) 06/06/2015 7:25 AM CDT Body Mass Index - - documented in this encounter Plan of Treatment Not on filedocumented as of this encounter Procedures Procedure Name Priority Date/Time Associated Diagnosis Comme nts MR LUMBAR SPINE Routine 06/06/2015 7:46 AM Result s for this WITHOUT IV CONTRAST CDT procedur e are in the results section. documented in this encounter Results MR Lumbar Spine without IV Contrast (06/06/2015 7:46 AM CDT) Anatomical Region Laterality Modality Lumbar Spine N/A Magnetic Resonance Specimen (Source) Anatomical Collection Method Collection Time Re ceived Time Location / / Volume Laterality 06/06/2015 7:46 AM CDT Impressions 06/06/2015 9:45 AM CDT 1. 4 vertebra with classic lumbar featur es. L5 is completely sacralized. 2. Mild degenerative lumbar spondylosis. 3. No neural compression. FINDINGS: Vertebral numbering for this r eport was established by counting inferiorly on the entire spine series 300. There are 4 vertebra with classic lumbar features. L 1 will be called the first vertebra with lumbar type transverse pro cesses. L5 is completely sacralized with fusion of its transverse processes with S1. There is no fracture or subluxation. The conus is normal position without atrophy or edema. There is multi level mild disc endplate spurring. Additional level by level avendano ge is detailed below: L3/L4: Minimal generalized disc bulge. M ild bilateral facet hypertrophy. L4/L5: Disc has central annular fissure, moderate generalized bulge, and dehydration. There is mild left face t hypertrophy. There is mild left foraminal stenosis. L5/S1: Transitional level. Moderately we ll-developed disc. There are no levels of neural compressio n, central canal stenosis, or lateral recess stenosis. The following findings are so common in normal, pain-free volunteers that while we report their presence, they must be interpreted with caution and in the context of the clinical situation. ??Among peop le between the age of 40 and 60 years wh o do not have back pain, an MRI will find that about: 8 in 10 have disk degeneration 7 in 10 have disk signal loss (desiccati on) 6 in 10 have disk height loss 6 in 10 have a bulging disk ?? 3 in 10 have an annular fissure 3 in 10 have a disk protrusion Note that even 3 in 10 means that the fi nding is quite common in people without back pain. Narrative 06/06/2015 9:45 AM CDT EXAM: MR Lumbar Spine w/o contrast INDICATION: low back pain with bilateral posterior radiculopathy x 8 months AGE: 39 years-old COMPARISON: Radiographs 06/06/15. TECHNIQUE: Routine MRI Lumbar Spine With out Contrast Procedure Note Kanu Agrawal M.D. / Jean Claude Cason M.D. - 02/18/2017 EXAM: MR Lumbar Spine w/o contrast INDICATION: low back pain with bilateral posterior radiculopathy x 8 months AGE: 39 years-old COMPARISON: Radiographs 06/06/15. TECHNIQUE: Routine MRI Lumbar Spine With out Contrast IMPRESSION: 1. 4 vertebra with classic lumbar featur es. L5 is completely sacralized. 2. Mild degenerative lumbar spondylosis. 3. No neural compression. FINDINGS: Vertebral numbering for this r eport was established by counting inferiorly on the entire spine series 300. There are 4 vertebra with classic lumbar features. L 1 will be called the first vertebra with lumbar type transverse pro cesses. L5 is completely sacralized with fusion of its transverse processes with S1. There is no fracture or subluxation. The conus is normal position without atrophy or edema. There is multi level mild disc endplate spurring. Additional level by level avendano ge is detailed below: L3/L4: Minimal generalized disc bulge. M ild bilateral facet hypertrophy. L4/L5: Disc has central annular fissure, moderate generalized bulge, and dehydration. There is mild left face t hypertrophy. There is mild left foraminal stenosis. L5/S1: Transitional level. Moderately we ll-developed disc. There are no levels of neural compressio n, central canal stenosis, or lateral recess stenosis. The following findings are so common in normal, pain-free volunteers that while we report their presence, they must be interpreted with caution and in the context of the clinical situation. Among people between the age of 40 and 60 years who do not have back keshav n, an MRI will find that about: 8 in 10 have disk degeneration 7 in 10 have disk signal loss (desiccati on) 6 in 10 have disk height loss 6 in 10 have a bulging disk 3 in 10 have an annular fissure 3 in 10 have a disk protrusion Note that even 3 in 10 means that the fi nding is quite common in people without back pain. Lucia CH[facility]BERS MRI PROCEDURES documented in this encounter Visit Diagnoses Not on filedocumented in this encounter
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
--- OUTSIDE RECORDS SUMMARY | 2022-08-19 06:58 | XMS_ITS | Encounter Summary ---
:1975 Author Organization [facility] Address [address] [place] [address] Care Team Providers Name Role Phone Unavailable Primary Care Provider Unavailable Encounter Details Date Type Department Care Team Description 06/04/2016 Hospital Encounter [facility]X [facility] Larry Mejia M.D. [address] [place] [address] (Wo rk) Social History Tobacco Use Types [...] you attend gnosticist or Patient refused 2020 gnosticist services? Do [...] Reading Time Taken Comments Blood Pressure 110/80 06/04/2016 9:48 AM CDT Pulse 88 06/04/2016 9:48 AM CDT Temperature - - Respiratory Rate - - Oxygen Saturation - - Inhaled Oxygen Concentration - - Weight 69.4 kg (153 lb) 06/04/2016 9:48 AM CDT Height 161 cm (5' 3.39) 06/04/2016 9:48 AM CDT Body Mass Index 26.77 06/04/2016 9:48 AM CDT documented in this encounter Progress Notes Larry Mejia M.D. - 06/04/2016 9:40 AM CDT [id number] CHIEF COMPLAINT/REASON FOR VISIT Dizziness. HISTORY OF PRESENT ILLNESS Mr. Vigil returns today in followup after tests. He endorses that his symptoms are basically the same. Blood work, vitamin D, B12 and syphilis titers were unremarkable. He had previously had a mildly elevated TSH with a normal free T4 in May of last year. He underwent audiometry which demonstrated some reduction in high- frequency hearing that was symmetric. They did note on his vestibular testing a strongly positive score for anxiety. Vestibular testing did not show objective indications of peripheral or central vestibular system involvement. They did note that his ability to maintain an upright stance and variety of changing sensory input was abnormal, however the degree of difficulty was inconsistent with his ability to ambulate down the noble between test rooms. Consultation was recommended tot Behavioral Medicine Program for the possibility of persistent postural perceptual dizziness as well as vestibular imbalance rehabilitation. Dr. Gallegos in ophthalmology noted some myopia, but no other concerning occular pathology. He does continue to have headaches. These are most days of the week on average. The are rated a 4 to5 out of 10 intensity and are holocephalic. He does feel like lights at work trigger them. They do tend to improve after he leaves work. Similarly, his sense of dizziness is made worse while he is at work. During the course of our evaluation today, he did lead off by asking me Am I going to ? and also wanted to confirm that he did not have no cancer or nothing. He also endorsed that essentially all of his symptoms started after hitting his head on a beam at work last year. IMPRESSION/REPORT/PLAN 1. Persistent postural perceptual dizziness. 2. Chronic daily headache. I believe his clinical history was consistent with persistent postural- perceptual dizziness, and hisvestibular testing has largely been supportive of this. We discussed treatment utilizing our Vestibular and Balance Rehabilitation team as well as our Behavioral Medicine team in order to help improve his symptoms. He is very interested in this. I will place a referral back to [place]. Regarding his daily headaches, we talked about using a preventative medication in order to reduce his headache burden. He does understand the goal of therapy would be to reduce severity and frequency by about 50%. He is interested in this. Because his high anxiety scores, there may be some usefulness in using a tricyclic antidepressant. He does understand that dry mouth is a triple atypical symptom and lightheadedness and at times dizziness may occur as well. Will start a low dose using nortriptyline 10 mg nightly and increasing by 10 mg per week until he has a response with his headaches or reaches 50 mg daily. He does understand he could stop prior to reaching the initial target of 50 mg if his jarred echeverria responds at a lower dose. He does also understand that treatment for at least 6 weeks at a target dose is warranted in order to assess response. He will follow up with Mr. Claire regarding this, and I have suggested he schedule this for about 3 months. Other considerations for preventative medications would be low doses of propranolol starting at 40 mg 2 times daily and increasing not sooner than every week by 40 mg and allowing for 6 weeks in between titrations to assess clinical response. Topiramate can similarly be titrated by 25 mg per week to atarget dose of 100 mg nightly and monitored over the course of several weeks for clinical response. He was very relieved that none of his symptoms are from life-threatening disease. Uzlt-bt-ixrk time in this encounter was 25 minutes with greater than 50% of that spent in counselingand coordination of care. Larry Mejia M.D./kobe Electronically Signed By: LARRY MEJIA MD On: 06/05/2016 09:33 AM Modified by and Electronically Signed by: LARRY MEJIA MD On: 06/05/2016 09:31 AM Source: [facility] MHSDOLBEYNONRADSYS Document Id: [id number] documented in this encounter Miscellaneous Notes Miscellaneous - Larry Mejia M.D. 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 Give a copy of your medication list to your primary care provider. Update your medication list any time medications or doses are changed and carry your medication list at all times in case of emergency. Electronically Signed By: LARRY MEJIA MD Signed On:04-JUN-2016 10:20:44 Additional Information: Source: [facility] POWERCHART Document Id: [id number] Miscellaneous - Larry Mejia M.D. - 06/04/2016 10:20 AM CDT Ambulatory Patient Summary [facility] [address] [place] [id number] Visit Information Name: ALON VIGIL [facility] Number: [id number] Current Date: 06/04/2016 10:20:48 Physicians Attending Provider: LARRY MEJIA MD Primary Care Provider: VIDAL CLAIRE APRN, CNP ALON VIGIL has been given the following list of [...] 5 capsules nightly OR lowest effective dose [facility] [address] [place] [address] Stop Taking the Following Medications: Medication list as of 06-04-16 10:20 Attention: If you have any medications at home that are not on this list, DO NOT take them until youcontact your provider for clarification. Give a copy of your medication list to your primary care provider. Update your medication list any time medications or doses are changed and carry your medication list at all times in case of emergency. Electronically Signed By: LARRY MEJIA MD Signed On:04-JUN-2016 10:20:44 Your Allergies & Intolerances Substance Reaction Symptoms Category Comments penicillins Drug Toradol Drug Latex Other Your Problem List Problem Status Onset Comments Presbyopia Active Dizziness Active 06/04/16 Persistent postural perceptual dizziness Headache (ORTEGA) Daily Active Your Upcoming Appointments Date Time Location Provider No Appointments found Attention: Contact your local Clinic if further [...] if you dont have one. Go to [email or web address] and click on Create Your Account. Then, follow the directions to complete the online form. Youll be asked for your [facility] number which you can find at the top of this document. Your Goals/Additional instructions: Source: [facility] POWERCHART Document Id: [id number] Miscellaneous - Elvira Mckeon L.P.N. 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 Peripheral Pulse Rate : 88 /min Heart Rhythm : Regular Systolic Blood Pressure : 110 mmHg Diastolic Blood Pressure : 80 mmHg NIBP Mean : 90 mmHg BP Location : Right upper extremity Blood Pressure Cuff Size : Regular Height : 161 cm(Converted to: 5 ft 3 inch(es), 63 inch(es)) Actual Weight : 69.4 kg(Converted to: 153 lb 0 oz) Weight Source : Standing scale Dosing Weight Clinic : 69.4 kg Clinic BSA : 1.76 Body Mass Index : 26.77 kg/m2 ELVIRA MCKEON LPN - 06/04/2016 9:48 CDT General Info Information Given By : Patient Languages : Congolese Is Patient Female and 13-50 no hysterectomy : No ELVIRA MCKEON LPN - 06/04/2016 9:48 CDT Subjective Pain Symptoms : Yes Neurological Symptoms : Dizziness ELVIRA MCKEON LPN - 06/04/2016 9:48 CDT Pain Scale Pain Scale Verbal 0-10 : Open ELVIRA MCKEON LPN - 06/04/2016 9:48 CDT Pain Pain Assessment Grid Pain 1 Location : Elbow Laterality : Left Intensity : 7 ELVIRA MCKEON LPN - 06/04/2016 9:48 CDT Dependent Habits Exposure to Tobacco Smoke : Other: chew Smoking Status : Current every day smoker Tobacco 2A : Yes Tobacco Use/Currently Using : Yes Tobacco Use/Last 30 Days : Yes Tobacco Use/Last 12 months : Yes Type : Smokeless Tobacco: 3 cans/pouches or more per week Tobacco Use/Advised to Quit : Yes ELVIRA MCKEON LPN - 06/04/2016 9:48 CDT Caffeine Use Grid Caffeine Use : Current Type : Coffee Frequency : Occasionally Last Use : FEW DAYS AGO ELVIRA MCKEON LPN - 06/04/2016 9:48 CDT Recreational Drug Use Grid Drug Use : Current Type : Alcohol Route : Oral Frequency : Daily Amount : 12 BEERS-CASE BEER Age First Used : 10 YRS OLD Length of Sobriety : 1 YEAR Consequences of Use : Legal, Relationships, School Previous Treatment : YES Support Group Experience : [facility] [facility] Withdrawal Potential : Yes ELVIRA MCKEON LPN - 06/04/2016 9:48 CDT Source: [employer] Document Id: [id number] CDT!59 documented in this encounter Plan of Treatment Not on filedocumented as of this encounter Visit Diagnoses Not on filedocumented in this encounter
--- OUTSIDE RECORDS SUMMARY | 2022-08-19 06:58 | XMS_ITS | Encounter Summary ---
:1975 Author Organization [facility] Address [address] [place] [address] Care Team Providers Name Role Phone Unavailable Primary Care Provider Unavailable Encounter Details Date Type Department Care Team Description 09/10/2016 Hospital Encounter HX [facility] Markos Claire AP RN, C.N.P. [address] [place], [place] [phone] (Wo rk) Social History [...] you attend pentecostalism or Patient refused 2020 gnosticist services? Do [...] - - Height 161 cm (5' 3.39) 09/10/2016 9:48 AM SECURITY INCIDENT RESPONSE SPECIALIST Body Mass Index - - documented in this encounter Plan of Treatment Not on filedocumented as of this encounter Procedures Procedure Name Priority Date/Time Associated Comments Diagnosis PAIN CLINIC SURVEY, U Routine 09/10/2016 9:59 Res ults for this AM SECURITY INCIDENT RESPONSE SPECIALIST procedure are i n the results section. METHYLPHENIDATE AND MTB, Routine 09/10/2016 9:59 Results for this UR AM SECURITY INCIDENT RESPONSE SPECIALIST procedure are i n the results section. documented in this encounter Results Methylphenidate (Ritalin) & MTB, Urine (09/10/2016 9:59 AM SECURITY INCIDENT RESPONSE SPECIALIST) [facility] gist Method Time Signature HXU NEGATIVE Not Established POWERCHART Methylpheni-M NGML ba HXU Ritalinic NEGATIVE Not Established POWERCHART Acid-Hobbs NGML Comment: This test was developed and its performa nce characteristics determined by [facility]. ??It has not been cleared or approved by the Food and Drug Administration. Test Performed by: [employer] [employer]. [address] [place] [address] Specimen (Source) Anatomical Collection Method Collection Time Re ceived Time Location / / Volume Laterality Urine 09/10/2016 9:59 AM SECURITY INCIDENT RESPONSE SPECIALIST Markos Claire APRN, C.N.P. LAB URINE ORDERABLES Performing Organization Address City/State/ZIP Code Phon e Number POWERCHART Pain Clinic Survey, Urine (09/10/2016 9:59 AM SECURITY INCIDENT RESPONSE SPECIALIST) Component Value Ref Test Analysis Performed At [facility] gist Range Method Time Signature HX U Adlt Sv Creat-Hobbs 62.3 MGDL POWERC LAIRD Specific [place], POCT, 1.006 POWERC LAIRD U HX U Adlt Sv pH-Hobbs 6.9 POWERCHAR T HX U Adlt Sv Oxid-Hobbs Negative Cutoff: POWERCH ART 200 mg/L HX U Adlt Sv Comm-Webster Normal POWERCH ART HX U Amphetamines-Hobbs Negative Cutoff: POWERCH ART 500 NGML Barbiturates Negative Cutoff: POWERCHART 200 NGML HX U Benzo-Hobbs Negative Cutoff: POWERCHART 100 NGML Cocaine Negative Cutoff: POWERCHART 150 NGML HX U Phency-Webster Negative Cutoff: POWERCHART 25 NGML Tetrahydrocannabinol Negative Cutoff: POWERCHAR T 50 NGML Comment: ADDITIONAL INFORMATIO N This report is intended for use in clini paty monitoring or management of patients. ??It is not inte nded for use in employment-related testing. Test Performed by: [facility] [address] [address] Home Health Scheduler: Clyde Dennison II, M.D., Ph.D. HX Codeine, MS Screen, U Not Detected Cutoff: 25 NGML POWERCHART Comment: Tylenol 3 Kpdweqw-4-fyus-glucuronide Not Detected Cutoff: 100 NGML POWERCHART Comment: Metabolite of codeine Morphine Not Detected Cutoff: 25 NGML POWERCHART Comment: Sharon Licea, MS Contin; Also a minor metabolite (10%) of codeine and can be seen in low concentra tions (<2,000 ng/mL) with poppy seed ingestion. Gfzqrjae-1-xmrk-glucuronide Not Detected Cutoff: 100 NGML POWERCHART Comment: Metabolite of morphine 6-Monoacetylmorphine by GC/MS Not Detected Cutoff: 25 NGML POWERCHART Comment: Metabolite of heroin Hydrocodone Not Detected Cutoff: 25 NGML POWERCHAR T Comment: Lortab, [place], Vicodin; Also a very reema r metabolite of codeine and impurity (<1%) of oxycodone. Norhydrocodone,-by LC-MS/MS Not Detected Cutoff: 25 NGML POWERCHART Comment: Metabolite of hydrocodone Dihydrocodeine-by LC-MS/MS Not Detected Cutoff: 25 NGML POWERCHART Comment: Metabolite of hydrocodone HX U Hydromorphone-Webster Not Detected Cutoff: 25 NGML POWERCHART Comment: Dilaudid, Exalgo; Also a metabolite of h ydrocodone and a minor (<5%) metabolite of morphine. Cjldygmjrskmb-9-qjvd-glucuronide Not Detected Cutoff: 100 NGML POWERCHART Comment: Metabolite of hydromorphone HX U Oxycodone-Hobbs Not Detected Cutoff: 25 NGML P OWERCHART Comment: Endocet, Percocet, Oxycontin Noroxycodone-by LC-MS/MS Not Detected Cutoff: 25 NGML POWERCHART Comment: Metabolite of oxycodone HX U Oxymorphone-Hobbs Not Detected Cutoff: 25 NGML POWERCHART Comment: Numorphan, Opana; Also a metabo lite of oxycodone. Fihxzvxxacs-0-mggo-glucuronide Not Detected Cutoff: 100 NGML POWERCHART Comment: Metabolite of oxymorphone Noroxymorphone-by LC-MS/MS Not Detected Cutoff: 25 NGML POWERCHART Comment: Metabolite of oxymorphone Fentanyl by LC-MS/MS Not Detected Cutoff: 2 NGML P OWERCHART Comment: Actiq, Duragesic, [place] Norfentanyl by LC-MS/MS Not Detected Cutoff: 2 NGML POWERCHART Comment: Metabolite of fentanyl Meperidine Not Detected Cutoff: 25 NGML POWERCHART Comment: Demerol Normeperidine Not Detected Cutoff: 25 NGML POWERCH ART Comment: Metabolite of meperidine HX U Naloxone-Hobbs Not Detected Cutoff: 25 NGML PO WERCHART Comment: Narcan Hnqaagbf-5-niwe-glucuronide Not Detected Cutoff: 100 NGML POWERCHART Comment: Metabolite of naloxone Methadone Immunoassay Screen Not Detected Cutoff: 25 NGML POWERCHART Comment: Dolophine EDDP Not Detected Cutoff: 25 NGML POWERCHART Comment: Metabolite of methadone Propoxyphene Not Detected Cutoff: 25 NGML POWERCHA RT Comment: Darvon, Darvocet HX U Noroxymorphone-Hobbs Not Detected Cutoff: 25 NGML POWERCHART Comment: Metabolite of propoxyphene Tramadol Not Detected Cutoff: 25 NGML POWERCHART Comment: Tradol, Ultram, Ultracet O-desmethyltramadol Not Detected Cutoff: 25 NGML P OWERCHART Comment: Metabolite of tramadol Tapentadol Not Detected Cutoff: 25 NGML POWERCHART Comment: Nucynta N-desmethyltapentadol Not Detected Cutoff: 50 NGML POWERCHART Comment: Metabolite of tapentadol Uyebetcctr-pbcm-ygmvlxwgfob Not Detected Cutoff: 100 NGML POWERCHART Comment: Metabolite of tapentadol Buprenorphine, U Not Detected Cutoff: 5 NGML POWER CHART Comment: Buprenex, Suboxone Norbuprenorphine Not Detected Cutoff: 5 NGML POWER CHART Comment: Metabolite of buprenorphine Norbuprenorphine glucuronide Not Detected Cutoff: 20 NGML POWERCHART Comment: Metabolite of buprenorphine Opioid Interpretation See Comment DINA LAIRD Comment: No opioids were detected. The absence of expected drug(s) and/or drug metabolite(s) may indicate n on-compliance, altered pharmacokinetics, inappropriate timing of specimen collection relative to drug administrati on, diluted/adulterated urine, or limitation s of testing. ADDITIONAL INFORMATIO N This test was developed and its performa nce characteristics determined by [facility] in a manner co nsistent with CLIA requirements. This test has not been connor ared or approved by the U.S. Food and Drug Administration. Test Performed by: [facility] [place] [address] Home Health Scheduler: Clyde Dennison II, M.D., Ph.D. Specimen (Source) Anatomical Collection Method Collection Time Re ceived Time Location / / Volume Laterality Urine 09/10/2016 9:59 AM SECURITY INCIDENT RESPONSE SPECIALIST Laurie Newman APRNNPatriciaPPatricia LAB URINE ORDERABLES Performing Organization Address City/State/ZIP Code Phon e Number POWERCHART documented in this encounter Visit Diagnoses Not on filedocumented in this encounter
--- OUTSIDE RECORDS SUMMARY | 2022-08-19 06:58 | XMS_ITS | Encounter Summary ---
:1975 Author Organization [facility] Address [address] [place] [address] Care Team Providers Name Role Phone Markos Claire APRN, C.N.P. Primary Care Provider [phone] Encounter Details Date Type Department Care Team Description 06/05/2017 Hospital Encounter HX NO MAPPING Jennifer Bettencourt, P.A.-C. [address] [place] [phone] (Wo rk) Social History Tobacco Use Types [...] you attend religion or Patient refused 2020 christian services? 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 PCP - General 03/26/17 02/27/[address] [phone] documented as of this encounter
--- OUTSIDE RECORDS SUMMARY | 2022-08-19 06:58 | XMS_ITS | Encounter Summary ---
:1975 Author Organization [facility] Address [address] [place] [address] Care Team Providers Name Role Phone Unavailable Primary Care Provider Unavailable Encounter Details Date Type Department Care Team Description 05/23/2016 Hospital Encounter HX [facility] Farhad Deluna M.D. [address] [place], [place] [phone] (Wo rk) Social History [...] you attend taoist or Patient refused 2020 gnosticism services? Do [...] - - Height 161 cm (5' 3.39) 05/23/2016 8:59 AM CDT Body Mass Index - - documented in this encounter Progress Notes Stanley Gallegos M.D. - 05/23/2016 8:57 AM CDT [id number] The documentation for this visit is available in Synthesis IMPRESSION/REPORT/PLAN #1 Myopia has increased difficulty with dil at night from myopia mrx bifocal for driving ok for readers 1.25 for other activities RTC 2 to 3 years Stanley Gallegos M.D./corrine Electronically Signed By: STANLEY GALLEGOS MD On: 05/27/2016 09:34 AM Source: [facility] MHSDOLBEYNONRADSYS Document Id: [id number] documented in this encounter Miscellaneous Notes Miscellaneous - Stanley Gallegos M.D. - 05/23/2016 10:04 AM CDT Ambulatory Discharge Medication List [address] [id number] Visit Information Name: MUSA ALON BRENDA [facility] Number: [id number] Visit Date: 05/23/2016 10:04:35 Attending Provider: STANLEY GALLEGOS MD Primary Care Provider: VIDAL SIMPSON APRN, NURSE COORDINATOR ALON VIGIL has been given the following list of medications: Your Medications It is important to take your medications as directed. Use a pill box or chart to help remind you to take your medications. Please let your doctor or nurse know if you have problems taking your medications. Medication/Strength How to Take Indications/Special Instructions/Comments/Notes for Patient Medication Changes/Routing No Medications found Stop Taking the Following Medications: Medication list as of 05-23-16 10:04 Attention: If you have any medications at home that are not on this list, DO NOT take them until youcontact your provider for clarification. Give a copy of your medication list to your primary care provider. Update your medication list any time medications or doses are changed and carry your medication list at all times in case of emergency. Electronically Signed By: STANLEY GALLEGOS MD Signed On:23-MAY-2016 10:04:14 Additional Information: Source: [facility] POWERCHART Document Id: [id number] Miscellaneous - Stanley Gallegos M.D. - 05/23/2016 10:04 AM CDT Ambulatory Patient Summary [address] [id number] Visit Information Name: MUSALAON BARBER [facility] Number: [id number] Current Date: 05/23/2016 10:04:35 Physicians Attending Provider: STANLEY GALLEGOS MD Primary Care Provider: VIDAL SIMPSON APRN, NURSE COORDINATOR ALON VIGIL has been given the following [...] Take Indications/Special Instructions/Comments/Notes for Patient Medication Changes/Routing No Medications found Stop Taking the Following Medications: Medication list as of 05-23-16 10:04 Attention: If you have any medications at home that are not on this list, DO NOT take them until youcontact your provider for clarification. Give a copy of your medication list to your primary care provider. Update your medication list any time medications or doses are changed and carry your medication list at all times in case of emergency. Electronically Signed By: STANLEY GALLEGOS MD Signed On:23-MAY-2016 10:04:14 Your Allergies & Intolerances Substance Reaction Symptoms Category Comments penicillins Drug Toradol Drug Latex Other Your Problem List Problem Status Onset Comments Presbyopia Active Your Upcoming Appointments Date Time Location Provider 06/04/2016 09:45 [facility] Neurology Roberto SLOAN, Kanu Delatorre Attention: Contact your local Clinic if further [...] if you dont have one. Go to [email or web address] and click on Create Your Account. Then, follow the directions to complete the online form. Youll be asked for your [facility] number which you can find at the top of this document. Your Goals/Additional instructions: Source: [facility] POWERCHART Document Id: [id number] documented in this encounter Plan of Treatment Not on filedocumented as of this encounter Visit Diagnoses Not on filedocumented in this encounter
--- OUTSIDE RECORDS SUMMARY | 2022-08-19 06:58 | XMS_ITS | Encounter Summary ---
:1975 Author Organization [facility] Address [address] [place] [address] Care Team Providers Name Role Phone Markos Claire APRN, C.N.P. Primary Care Provider [phone] Encounter Details Date Type Department Care Team Description 06/16/2017 Hospital Encounter HX [facility] Justin Noriega M.D. [address] [place], [place] [phone] (Wo rk) Social History [...] you attend zoroastrian or Patient refused 2020 adventist services? Do [...] Sign Reading Time Taken Comments Blood Pressure 117/67 06/16/2017 1:56 PM CDT Pulse 106 06/16/2017 1:56 PM CDT Temperature - - Respiratory Rate - - Oxygen Saturation - - Inhaled Oxygen Concentration - - Weight - - Height 161 cm (5' 3.39) 06/16/2017 1:56 PM CDT Body Mass Index - - documented in this encounter Progress Notes Julian Vallejo M.D. - 06/16/2017 1:44 PM CDT [id number] HISTORY OF PRESENT ILLNESS Patient here for followup from the ER for otitis externa. He was noted to have cerumen impaction. Hehas had pain and discomfort. This has been for the last 2 weeks but got worse recently. History of PE tubes as a child. No other recent ear problems. MEDICATIONS Reviewed in the ambulatory summary page today in the EMR. ALLERGIES Reviewed in the ambulatory summary page today in the EMR. PAST MEDICAL/SURGICAL HISTORY Reviewed in the ambulatory summary page today in the EMR. SOCIAL HISTORY Patient denies smoking, however, uses smokeless tobacco 1 tin per day. Alcohol he quit drinking 1 year ago. PHYSICAL EXAMINATION GENERAL: Healthy-appearing adult male. Alert and oriented, no acute distress. Communicates well. Skin of the head and neck is normal. HEAD: Normocephalic. ENT: Right external ear is normal. Otomicroscopic exam of the canal reveals otitis externa with fungal overgrowth of ceruminous debris. This is debrided under the otomicroscope. Mild edema of the canalskin. No erythema. The tympanic membrane is clear. Middle ear space appears clear. Left side with cerumen impaction, debrided without difficulty with instrumentation under the otomicroscope. Canal otherwise normal. Tympanic membrane normal. Middle ear space appears clear. IMPRESSION/REPORT/PLAN 1. Fungal otitis externa, right ear. 2. Bilateral cerumen impaction. PLAN: Cleaned and debrided as dictated under the otomicroscope. We will treat right ear with acetic acid/hydrocortisone drops 3 times a day for 10 days. We will see again in followup in 2 weeks or sooner on an as-needed basis if continued problems. Julian Vallejo M.D./kobe Electronically Signed By: JULIAN VALLEJO MD On: 07/09/2017 11:16 AM Source: [facility] [id number] Document Id: [id number] documented in this encounter Miscellaneous Notes Jameecellaneous - Desiree Nicole - 08/13/2017 2:30 PM CDT Med Management Document Contains Addenda Addendum by MARKOS CLAIRE APRN, RN on August 13, 2017 15:33:49 CDT Approved with modifications: Order:nortriptyline (nortriptyline 50 mg oral capsule) 1 cap(s) PO Daily Qty: 30 cap(s) Refills: 5 Substitutions Allowed Route To Pharmacy - Merged With [facility] [id number] Signed by MARKOS CLAIRE APRN, RN 08/13/2017 15:33:38 From: DESIREE NICOLE ([facility] [employer] [facility]) To: MARKOS CLAIRE APRN RN; Sent: 08/13/2017 14:30:40 CDT Subject: Med Management On hold pending signature Order:nortriptyline (nortriptyline 50 mg oral capsule) 1 cap(s) PO Daily dose increased Qty: 30 cap(s) Refills: 2 Substitutions Allowed Route To Pharmacy - Merged With [id number] Source: [facility] POWERCHART Document Id: [id number] Miscellaneous - Julian Vallejo M.D. - 06/16/2017 2:23 PM CDT Ambulatory Patient Summary [address] [id number] Visit Information Name: ALON VIGIL [facility] Number: [id number] Current Date: 06/16/2017 14:23:27 Physicians Attending Provider: JULIAN VALLEJO MD Primary Care Provider: MARKOS CLAIRE APRN, RN ALON VIGIL has been given the following [...] Take Indications/Special Instructions/Comments/Notes for Patient Medication Changes/Routing dextroamphetamine-amphetamine (Adderall 5 mg oral tablet) 1 Tablet(s), Oral, two times a day AM & Noon CSA signed 09/10/16 hydrocortisone-acetic acid otic (hydrocortisone-acetic acid 1%-2% otic solution) 5 Drops, Ear(Right), three times a day x 10 day(s) New Routed to [facility] [address] [place] [address] nortriptyline (nortriptyline 50 mg oral capsule) 1 cap, Oral, once a day dose increased Stop Taking the Following Medications: Medication list as of 06-16-17 14:23 Attention: If you have any medications at home that are not on this list, DO NOT take them until youcontact your provider for clarification. Give a copy of your medication list to your primary care provider. Update your medication list any time medications or doses are changed and carry your medication list at all times in case of emergency. Electronically Signed By: JULIAN VALLEJO MD Signed On:16-JUN-2017 14:23:24 Your Allergies & Intolerances Substance Reaction Symptoms Category Comments penicillins Drug Toradol Drug Latex Other Your Problem List Problem Status Onset Comments Presbyopia Active Dizziness Active 06/04/16 Persistent postural perceptual dizziness Headache (ORTEGA) Daily Active Anxiety NOS Active 05/13/17 Per External Records Your Upcoming Appointments Date Time Location Provider [...] if you dont have one. Go to [email or web address] and click on Create Your Account. Then, follow the directions to complete the online form. Youll be asked for your [facility] number which you can find at the top of this document. Your Goals/Additional instructions: Source: [facility] POWERCHART Document Id: [id number] Miscellaneous - Julian Vallejo M.D. - 06/16/2017 2:23 PM CDT Ambulatory Discharge Medication List [address] [place] [id number] Visit Information Name: ALON VIGIL [facility] Number: [id number] Current Date: 06/16/2017 14:23:27 Attending Provider: JULIAN VALLEJO MD Primary Care Provider: MARKOS CLAIRE APRN, RN ALON VIGIL has been given the following list of medications: Your Medications It is important to take your medications as directed. Use a pill box or chart to help remind you to take your medications. Please let your doctor or nurse know if you have problems taking your medications. Medication/Strength How to Take Indications/Special Instructions/Comments/Notes for Patient Medication Changes/Routing dextroamphetamine-amphetamine (Adderall 5 mg oral tablet) 1 Tablet(s), Oral, two times a day AM & Noon CSA signed 09/10/16 hydrocortisone-acetic acid otic (hydrocortisone-acetic acid 1%-2% otic solution) 5 Drops, Ear(Right), three times a day x 10 day(s) New Routed to [facility] [address] [place] [address] nortriptyline (nortriptyline 50 mg oral capsule) 1 cap, Oral, once a day dose increased Stop Taking the Following Medications: Medication list as of 06-16-17 14:23 Attention: If you have any medications at home that are not on this list, DO NOT take them until youcontact your provider for clarification. Give a copy of your medication list to your primary care provider. Update your medication list any time medications or doses are changed and carry your medication list at all times in case of emergency. Electronically Signed By: JULIAN VALLEJO MD Signed On:16-JUN-2017 14:23:24 Additional Information: Source: [facility] POWERCHART Document Id: [id number] Miscellaneous - Tricia Nava L.P.N. 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 Entered On: 06/16/2017 14:00 CDT Performed On: 06/16/2017 13:56 CDT by TRICIA NAVA LPN Intake Chief Complaint : Rt ear deep cerumen impaction with possible tympanic perforation and otitis external, Temperature Oral : 36.4 DegC(Converted to: 97.5 DegF) Peripheral Pulse Rate : 106 /min (HI) Systolic Blood Pressure : 117 mmHg Diastolic Blood Pressure : 67 mmHg NIBP Mean : 84 mmHg Height : 161 cm(Converted to: 5 ft 3 inch(es), 63 inch(es)) TRICIA NAVA LPN - 06/16/2017 13:56 CDT General Info Information Given By : Patient Languages : Maltese Is Patient Female and 13-50 no hysterectomy : No TRICIA NAVA LPN - 06/16/2017 13:56 CDT Subjective Pain Symptoms : Yes TRICIA NAVA LPN - 06/16/2017 13:56 CDT Pain Scale Pain Scale Verbal 0-10 : Open TRICIA NAVA LPN - 06/16/2017 13:56 CDT Pain Pain Assessment Grid Pain 1 Location : Ear Intensity : 8 TRICIA NAVA LPN - 06/16/2017 13:56 CDT Dependent Habits Exposure to Tobacco Smoke : Other: chew Smoking Status : Never smoker Tobacco 2A : Yes Tobacco Use/Currently Using : Yes Tobacco Use/Last 30 Days : Yes Tobacco Use/Last 12 months : Yes Type : Smokeless Tobacco: 2 cans/pouches per week Tobacco Use/Advised to Quit : No TRICIA NAVA LPN - 06/16/2017 13:56 CDT Caffeine Use Grid Caffeine Use : Current Type : Coffee Frequency : Occasionally Last Use : FEW DAYS AGO TRICIA NAVA LPN - 06/16/2017 13:56 CDT Recreational Drug Use Grid Drug Use : Current Type : Alcohol Route : Oral Frequency : Daily Amount : 12 BEERS-CASE BEER Age First Used : 10 YRS OLD Length of Sobriety : 1 YEAR Consequences of Use : Legal, Relationships, School Previous Treatment : YES Support Group Experience : AA, ACOA, AL-NON Withdrawal Potential : Yes TRICIA NAVA LPN - 06/16/2017 13:56 CDT Source: [employer] Document Id: [id number]!50 documented in this encounter Plan of Treatment Not on filedocumented as of this encounter Visit Diagnoses Not on filedocumented in this encounter Care Teams Wooden Frame Builder Relationship Specialty Start Date End Date Markos Claire APRN, C.N.P. PCP - General 03/26/17 02/27/[address] [phone] documented as of this encounter
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
--- OUTSIDE RECORDS SUMMARY | 2022-08-19 06:58 | XMS_ITS | Encounter Summary ---
:[address] [facility] Address [address] [place] [address] Care Team Providers Name Role Phone Unavailable Primary Care Provider Unavailable Encounter Details Date Type Department Care Team Description 06/06/2015 Hospital Encounter HX [facility] Markos Her A PRN, C.N.P. [address] [place], [place] [phone] (Wo rk) Social History [...] or relatives? How often do you attend sikh or Patient refused 2020 latter day services? Do you belong to any clubs or No 07/17/2021 organizations such as sikh groups, unions, fraternal or athletic groups, or [...] - Height 161 cm (5' 3.39) 06/06/2015 7:23 AM CDT Body Mass Index - - documented in this encounter Miscellaneous Notes Miscellaneous - Markos Claire APRN, C.N.P. - 06/06/2015 10:11 AM CDT Results Notification Document Contains Addenda Addendum by MARKOS CLAIRE SILK SCREENER on 06 June 2015 14:40:40 CDT From: MARKOS CLAIRE SILK SCREENER To: DARYN Claire Nurse; Sent: 06/06/2015 14:40:40 CDT Show up: 06/06/2015 14:40:00 CDT Subject: RE: Results Notification consult ordered Addendum by HOLDEN RM LPN on 06 June 2015 13:22:58 CDT here Addendum by MARKOS CLAIRE NP on 06 June 2015 12:52:13 CDT From: MARKOS CLAIRE NP To: DARYN Claire Nurse; Sent: 06/06/2015 12:52:13 CDT Show up: 06/06/2015 12:51:00 CDT Subject: RE: Results Notification Where does he want to go for Neurology. Addendum by HOLDEN RM LPN on 06 June 2015 11:07:58 CDT Patient informed. Do you need to put orders in? From: MARKOS CLAIRE SILK SCREENER To: DARYN Claire Nurse; Sent: 06/06/2015 10:11:30 CDT ! Show up: 06/06/2015 10:11:30 CDT Subject: Results Notification Actions: Notify patient of results Reminder Comments: really no obvious problems on his back MRI or brain MRI. For his back, he needs to do physical therapy, if this is not effective for relief he needs to see the back clinic or PM&R. For his balance issues he needs to see Neurology Results: Date Result Type Result Name 06/06/2015 9:51 Radiology XR Lumbar Spine 2 or 3 views Source: [facility] POWERCHART Document Id: [id number] Electronically signed by Conversion, [facility] Event Management Consultant [id number] at 03/09/2017 2:00 AM CDT documented in this encounter Plan of Treatment Not on filedocumented as of this encounter Procedures Procedure Name Priority Date/Time Associated Diagnosis Comme nts DX LUMBAR SPINE 2-3 Routine 06/06/2015 9:12 AM Re sults for this VIEWS CDT procedure are i n the results section. documented in this encounter Results DX Lumbar Spine 2-3 Views (06/06/2015 9:12 AM CDT) Anatomical Region Laterality Modality Lumbar Spine N/A Radiographic Imaging Specimen (Source) Anatomical Collection Method Collection Time Re ceived Time Location / / Volume Laterality 06/06/2015 9:12 AM CDT Impressions 06/06/2015 9:48 AM CDT 1. 4 vertebra with classic lumbar featur es. L5 is completely sacralized. 2. Mild degenerative lumbar spondylosis. The following findings are so common in normal, pain-free volunteers that while we report their presence, they must be interpreted with caution and in the context of the clinical situation. ??Among peop le between the age of 40 and 60 years wh o do not have back pain, a plain film, x-ray will find that about: 8 in 10 have disk degeneration 6 in 10 have disk height loss Narrative 06/06/2015 9:48 AM CDT EXAM: XR Lumbar Spine 2 or 3 views INDICATION: low back pain with radicular symptoms x 8 months AGE: 39 years-old COMPARISON: Lumbar MRI today FINDINGS: Vertebral numbering for this r eport is the same counting methodology used on lumbar MRI from toda y. There are 4 vertebra with classic lumbar features. L1 will be call ed the first vertebra with lumbar type transverse processes. L5 is completely sacralized with fusion of its transverse processes with S1. There is no fracture or subluxation. The re is multilevel mild disc endplate spurring. Procedure Note Kanu Agrawal M.D. / Jean Claude Cason M.D. - 02/18/2017 EXAM: XR Lumbar Spine 2 or 3 views INDICATION: low back pain with radicular symptoms x 8 months AGE: 39 years-old COMPARISON: Lumbar MRI today FINDINGS: Vertebral numbering for this r eport is the same counting methodology used on lumbar MRI from [facility]. There are 4 vertebra with classic lumbar features. L1 will be call ed the first vertebra with lumbar type transverse processes. L5 is completely sacralized with fusion of its transverse processes with S1. There is no fracture or subluxation. The re is multilevel mild disc endplate spurring. IMPRESSION: 1. 4 vertebra with classic lumbar featur es. L5 is completely sacralized. 2. Mild degenerative lumbar spondylosis. The following findings are so common in normal, pain-free volunteers that while we report their presence, they must be interpreted with caution and in the context of the clinical situation. Among people between the age of 40 and 60 years who do not have back keshav n, a plain film, x-ray will find that about: 8 in 10 have disk degeneration 6 in 10 have disk height loss Historical Provider IMG DIAGNOSTIC IMAGING PROCE DURES documented in this encounter Visit Diagnoses Not on filedocumented in this encounter
--- OUTSIDE RECORDS SUMMARY | 2022-08-19 06:58 | XMS_ITS | Encounter Summary ---
:1975 Author Organization [facility] Address [address] [place] [address] Care Team Providers Name Role Phone Unavailable Primary Care Provider Unavailable Encounter Details Date Type Department Care Team Description 05/18/2015 Hospital Encounter HX [facility] INTERNMED Markos Claire, ELA, C.N.P. [address] [place] [address] (Wo rk) Social History Tobacco [...] you attend pentecostal or Patient refused 2020 taoist services? Do [...] Sign Reading Time Taken Comments Blood Pressure 106/70 05/18/2015 7:49 AM CDT Pulse 68 05/18/2015 7:49 AM CDT Temperature - - Respiratory Rate - - Oxygen Saturation - - Inhaled Oxygen Concentration - - Weight 69.4 kg (153 lb) 05/18/2015 7:49 AM CDT Height 161 cm (5' 3.39) 05/18/2015 7:49 AM CDT Body Mass Index 26.77 05/18/2015 7:49 AM CDT documented in this encounter Progress Notes Markos Claire, ELA, C.N.P. - 05/18/2015 7:22 AM CDT [id number] CHIEF COMPLAINT/REASON FOR VISIT Continued back pain and issues with balance. HISTORY OF PRESENT ILLNESS Mr. Van is here today for 2 likely unrelated issues. First is ongoing back pain. Patient saw me in December for back pain symptoms. He describes it as lower back pain with radiculopathy that travels down the back of his legs. This has been going on since the first part of this year. He was seen in the emergency room in November and had a CT stone protocol which was unremarkable. He had persistent pain when he saw me in December and I had ordered a lumbar spine x-ray; however, he never completed it. 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 He does not do a lot a lifting but he does do a lot of standing in one position. Patient remains concerned about ongoing back pain with pain that travels down his leg that bothers him both at work and at home. He does not feel like it has gotten any worse but it has not gotten any better either. Other main issue is that he feels that he has balance issues. He feels dizzy but does not describe it as a true vertigo. His description of this is somewhat vague but he feels that he is off balance. He feels that sometimes he does not walk straight and feels lightheaded. He was actually seen in the emergency room for similar symptoms in July of 2014. He had a CBC, metabolic panel which was unremarkable along with a CT scan of his head which was also unremarkable. Patient reports that the symptoms have persisted throughout this entire timeframe. Again, have not been worsening but have not been improving either. They continue to bother him on a daily basis. Patient also reports occasional headaches but he does admit that he was diagnosed with migraine headaches as a younger man. He has had a couple of head trauma episodes previously as a teenager in wrestling and football. He remembers having a head trauma that knocked me out about 4 years ago in [place] when a metal screen fell and landed on his head. He reports that he was seen in an emergency room for this episode back 4 years ago.He does not remember if he had any head imaging at that time. He has had no fevers or chills. No vision changes. He does not feel that his fine motor function is affected. He has not fallen down because of the dizziness or back pain. He has no bowel or bladder dysfunction. No saddle paresthesias. No persistent numbness or tingling in any of his extremities. MEDICATIONS None. ALLERGIES Latex. Penicillin. Toradol. VITAL SIGNS Pulse 68, blood pressure 106/70, weight 69.4 kg, height 161 cm. PHYSICAL EXAMINATION GENERAL: Well-developed male, in no acute distress. Alert and oriented x3. HEENT: Head: Normocephalic, atraumatic. Eyes: Pupils equal and reactive to light. Extraocular movements intact. Sclerae anicteric. Ears: TMs pearly lawrence bilaterally. Mouth: Mucosa pink, moist. No obvious lesions present. Pharynx without exudate. NECK: Supple without lymphadenopathy. No carotid bruits auscultated. LUNGS: Clear posteriorly without rales, rhonchi, or wheezes. HEART: Regular rate and rhythm. Normal S1, S2. No murmurs. ABDOMEN: Soft, nontender, nondistended. Bowel sounds normoactive. No palpable organomegaly. EXTREMITIES: Warm without cyanosis, clubbing, or edema. NEUROLOGICAL: Cranial nerves II through XII grossly intact. Gait normal. Heel-to-toe walk normal. Duck walk normal. IMPRESSION/REPORT/PLAN 1. Lumbar radiculopathy. Patient with persistent lumbar radiculopathy for 8 months now along with other neurologic symptoms, though I suspect they are unrelated to his headaches, lightheadedness and his back pain. However, given the persistent nature of these symptoms, the patient will get an x-ray and an MRI of his lumbar spine and we will decide where to go from there. If he has abnormalities, we will refer him to the Spine Clinic; if he does not, this is likely mechanical low back pain and he mayneed ergonomic work modification and/or physical therapy. 2. Headaches. 3. Lightheadedness. 4. Abnormal gait. PLAN: The abnormal gait seems to be more of a subjective complaint, though apparently when reviewinghis emergency room report in July of 2014, his pilot supervisor did note that he was moving unusually and that is why he was brought to the emergency room and had his head CT. Symptoms have persisted now for over a year. He has not had any further followup on this. Recommend repeat CBC, metabolic panel, TSH and a brain MRI with and without contrast and likely neurologic referral. We will get the imagingcompleted here locally and then decide on referral once imaging is completed. Laurie LittleN.PPatricia/kobe Electronically Signed By: MARKOS CLAIRE NP On: 05/21/2015 11:18 AM Source: [facility] MHSDOLBEYNONRADSYS Document Id: [id number] documented in this encounter Miscellaneous Notes Miscellaneous - Conversion, Historical Provider Ser - 05/23/2015 2:18 PM CDT FW: MRI's Document Contains Addenda Addendum by AVA LE on 24 May 2015 12:12:44 CDT From: AVA LE To: MARKOS CLAIRE NP; Sent: 05/24/2015 12:12:44 CDT Subject: RE: MRI's Thank you, I will call the patient with ins. info. Addendum by MARKOS CLAIRE NP on 23 May 2015 16:20:53 CDT From: MARKOS CLAIRE NP To: DARYN Velázquez; Cc: AVA LE; Sent: 05/23/2015 16:20:53 CDT Subject: RE: MRI's FYI: I noticed this (self pay) on his sticker when I saw him in the clinic, I asked him if he was self pay when were discussing the MRI's, but he told me he had insurance. From: LILIANE HAYES (DARYN Velázquez) To: MARKOS CLAIRE CHIEF COMMERCIAL OFFICER; Sent: 05/23/2015 14:18:33 CDT Subject: FW: MRI's From: AVA LE To: DARYN Velázquez; Sent: 05/23/2015 13:31:32 CDT Subject: MRI's I have an order from Markos for MRI l-spine and brain and he is self pay. I will notify patient acct for financial assistance. Please call patient to discuss any treatment option if any. Thanks! Source: [facility] [place] Document Id: [id number] Miscellaneous - Conversion, Historical Provider Ser - 05/23/2015 1:47 PM CDT FW: MRI's From: LILIANE HAYES (DARYN Velázquez) To: MARKOS CLAIRE NP; Sent: 05/23/2015 13:47:08 CDT Subject: FW: MRI's From: AVA LE To: DARYN Velázquez; Sent: 05/23/2015 13:31:32 CDT Subject: MRI's I have an order from Markos for MRI l-spine and brain and he is self pay. I will notify patient acct for financial assistance. Please call patient to discuss any treatment option if any. Thanks! Source: [facility] [place] Document Id: [id number] Telephone Encounter - Brie Ornelas - 05/18/2015 5:09 PM CDT From: BRIE ORNELAS To: MARKOS CLAIRE CHIEF COMMERCIAL OFFICER; Sent: 05/18/2015 17:09:37 CDT Failed to show up for Same Day Orders. Provider/Nurse Team, please follow up with Patient. Brie Ornelas Lab EXT [id number] Source: [facility] POWERCHART Document Id: [id number] Electronically signed by [facility], [facility] Off Premise Service Representative [id number] at 03/08/2017 11:57 PM CDT Miscellaneous - Markos Claire APRN, C.N.P. - 05/18/2015 8:37 AM CDT Ambulatory Patient Summary [address] [id number] Visit Information Name: ALON VIGIL [facility] Number: [id number] Current Date: 05/18/2015 08:37:17 Physicians Attending Provider: MARKOS CLAIRE NP Primary Care Provider: MARKOS CLAIRE NP ALON VIGIL has been given the following [...] Take Indications/Special Instructions/Comments/Notes for Patient Medication Changes/Routing Stop Taking the Following Medications: HYDROcodone-acetaminophen ([place] 5 mg-325 mg oral tablet) Medication list as of 05-18-15 08:37 Attention: If you have any medications at [...] of emergency. Electronically Signed By: MARKOS CLAIRE CHIEF COMMERCIAL OFFICER Signed On:18-MAY-2015 08:37:15 Your Allergies & Intolerances Substance Reaction Symptoms Category Comments penicillins Drug Toradol Drug Latex Other Your Problem List Problem Status Onset Comments No Chronic Problems Active Your Upcoming Appointments Date Time Location [...] if you dont have one. Go to [email or web address] and click on Create Your Account. Then, follow the directions to complete the online form. Youll be asked for your [facility] number which you can find at the top of this document. Your Goals/Additional instructions: Source: [facility] POWERCHART Document Id: [id number] Miscellaneous - Markos Claire APRN, C.N.P. - 05/18/2015 8:37 AM CDT Ambulatory Discharge Medication List [facility] [address] [place] [id number] Visit Information Name: ALON VIGIL [facility] Number: [id number] Visit Date: 05/18/2015 08:37:16 Attending Provider: MARKOS CLAIRE CHIEF COMMERCIAL OFFICER Primary Care Provider: MARKOS CLAIRE CHIEF COMMERCIAL OFFICER ALON VIGIL has been given the following list of medications: Your Medications It is important to take your medications as directed. Use a pill box or chart to help remind you to take your medications. Please let your doctor or nurse know if you have problems taking your medications. Medication/Strength How to Take Indications/Special Instructions/Comments/Notes for Patient Medication Changes/Routing Stop Taking the Following Medications: HYDROcodone-acetaminophen ([place] 5 mg-325 mg oral tablet) Medication list as of 05-18-15 08:37 Attention: If you have any medications at [...] of emergency. Electronically Signed By: MARKOS CLAIRE CHIEF COMMERCIAL OFFICER Signed On:18-MAY-2015 08:37:15 Additional Information: Source: [facility] POWERCHART Document Id: [id number] Miscellaneous - Lorna Rm, L.P.N. - 05/18/2015 8:26 AM CDT MRI Screening Questionnaire MRI Screening Questionnaire Entered On: 05/18/2015 8:30 CDT Performed On: 05/18/2015 8:26 CDT by LORNA RM MRI Questionnaire MRI Cannot be Done Grid Automated Internal Cardiac Defibrillator : No Brain aneurysm clips : No Cochlear implant : No History of pacemaker : No Implants with a magnet : No Internal electrodes/wires : No Neurostimulator/Biostimulator : No [place] debo catheter : No LORNA RM - 05/18/2015 8:26 CDT Patient Weight > 350 lbs : No LORNA RM - 05/18/2015 8:26 CDT MRI Risk Factors Grid Patient is greater than 69 years old : No Diabetes (document medication) : No History of Kidney/Liver Transplant : No History of Renal Disease : No Hypertension : No Receiving Dialysis : No LORNA RM - 05/18/2015 8:26 CDT Creatinine/GFR Results Completed : Yes LORNA RM - 05/18/2015 8:26 CDT MRI Implants, Devices, Conditions Grid Aneurysm clip : No Control Implants (IUD, diaphragm) : No Intravascular Coil, Filter or Stent : No Drug Infusion Pump : No External Pain Control Device : No Intravascular Catheter/Port : No Magnetic/Elec/Mech Activated Implant : No Prosthesis/Metal Implanted Surgical : No Metal Fragments in Body : No Bullets/BB's/Shrapnel in Body : No Tattoos/Perm Make-Up/Body Jewelry : Yes Hearing Aids/Dentures/Partial Plates : No History of cancer : No Eye Surgery/Implant : No Inner Ear Surgery/Implant : No Transdermal Med or EKG Patches : No Shunt : No Penile Implant : No Breast Tissue Dual Hose Cementer/Implant : No : No (document number of weeks in Comment) : No LORNA RM - 05/18/2015 8:26 CDT Claustrophobic : No Pain/Unable to Lay Still : No Metal In or Removed from Eyes Ever : Yes Form Completed : Yes Education Materials Provided : Yes LORNA RM - 05/18/2015 8:26 CDT Source: [facility] [place] Document Id: [id number] CDT!47 Miscellaneous - Lorna Rm L.P.N. - 05/18/2015 7:49 AM CDT Adult Data Control Assistant Intake/History Adult Data Control Assistant Intake/History Entered On: 05/18/2015 7:52 CDT Performed On: 05/18/2015 7:49 CDT by LORNA RM Intake Chief Complaint : low back pain balance concerns Peripheral Pulse Rate : 68 /min Systolic Blood Pressure : 106 mmHg Diastolic Blood Pressure : 70 mmHg NIBP Mean : 82 mmHg BP Location : Right upper extremity Blood Pressure Cuff Size : Regular Height : 161 cm(Converted to: 5 ft 3 inch(es), 63 inch(es)) Actual Weight : 69.4 kg(Converted to: 153 lb 0 oz) Dosing Weight Clinic : 69.4 kg Clinic BSA : 1.76 Body Mass Index : 26.77 kg/m2 LORNA RM - 05/18/2015 7:49 CDT General Info Information Given By : Patient Preferred Communication Mode : Verbal Languages : Martiniquais Is Patient Female and 13-50 no hysterectomy : No LORNA RM - 05/18/2015 7:49 CDT Subjective Pain Symptoms : Yes LORNA RM - 05/18/2015 7:49 CDT Pain Scale Pain Scale Verbal 0-10 : Open LORNA RM - 05/18/2015 7:49 CDT Pain Pain Assessment Grid Pain 1 Location : Lower back Intensity : 9 Time Pattern : Constant LORNA RM - 05/18/2015 7:49 CDT Dependent Habits Tobacco Use/Currently Using : Yes Exposure to Tobacco Smoke : Other: chew Smoking Status : Never smoker LORNA RM - 05/18/2015 7:49 CDT Tobacco Use Grid Type : Chewing tobacco Other Tobacco Frequency : 1 TIN A DAY LORNA RM - 05/18/2015 7:49 CDT Caffeine Use Grid Caffeine Use : Current Type : Coffee Frequency : Occasionally Last Use : FEW DAYS AGO LORNA RM - 05/18/2015 7:49 CDT Recreational Drug Use Grid Drug Use : Current Type : Alcohol Route : Oral Frequency : Daily Amount : 12 BEERS-CASE BEER Age First Used : 10 YRS OLD Length of Sobriety : 1 YEAR Consequences of Use : Legal, Relationships, School Previous Treatment : YES Support Group Experience : AA, BESSY, JADA-NON Withdrawal Potential : Yes LORNA RM - 05/18/2015 7:49 CDT Source: [facility] [place] Document Id: [id number] CDT!56 documented in this encounter Plan of Treatment Not on filedocumented as of this encounter Visit Diagnoses Not on filedocumented in this encounter
--- OUTSIDE RECORDS SUMMARY | 2022-08-19 06:58 | XMS_ITS | Encounter Summary ---
:1975 Author Organization [facility] Address [address] [place] [address] Care Team Providers Name Role Phone Unavailable Primary Care Provider Unavailable Encounter Details Date Type Department Care Team Description 03/06/2016 Hospital Encounter HX NO MAPPING Gopi Huggins III, M.D. (Skip), M.P.H. [address] [place], [place] [address] (Wo rk) Social History Tobacco Use Types [...] you attend faith or Patient refused 2020 latter day services? [...] - - Height 161 cm (5' 3.39) 03/06/2016 6:13 PM CDT Body Mass Index - - documented in this encounter Plan of Treatment Not on filedocumented as of this encounter Procedures Procedure Name Priority Date/Time Associated Diagnosis Comme nts CT ABDOMEN PELVIS Routine 03/06/2016 7:12 PM Resu lts for this WITH IV CONTRAST CDT procedure a re in the results section. documented in this encounter Results CT Abdomen Pelvis with IV Contrast (03/06/2016 7:12 PM CDT) Anatomical Region Laterality Modality Abdomen, Pelvis N/A Computed Tomography Specimen (Source) Anatomical Collection Method Collection Time Re ceived Time Location / / Volume Laterality 03/06/2016 7:12 PM CDT Addenda Addendum by Provider, Watson Silverio o [place] 03/06/2016 7:12 PM CDT RAD^^^OW CT Abdomen Pelvis w ??contrast 03/06/2016 19:12:00 Impressions 03/07/2016 6:53 AM CDT 1. No evidence of appendicitis. 2. No evidence of intestinal or colonic obstruction. 3. Probable steatosis. 4. No appreciable renal or ureteral calc brittany. Abdomen and pelvis otherwise unremarkabl e for acute findings. Narrative 03/07/2016 6:53 AM CDT EXAM: ??CT Abdomen/Pelvis w/ contrast AGE: ??40 years old. GENDER: ??Male. INDICATION: ??abdominal or pelvic pain ( bilateral flank pain, nausea, elevated WBC and CRP) COMPARISON: ??December 07, 2014 FINDINGS: ??Moderate milliliters of Omni paque 350 contrast was injected intravenously. 40 mL saline jameel us. Lung bases: Visualized lung bases are cl ear. Abdomen and pelvis: Decreased attenuatio n changes throughout the liver compatible probable steatosis. No evidence of appendicitis. Small bilateral parapelvic cysts. No appreciable renal or ureteral calculi . No evidence of intestinal or colonic obs truction. No appreciable free intraperitoneal air. Small disc bulge L4 disc space level. Procedure Note Noah Mcdonald M.D. / Provider, Charlie pena M.D. - 02/13/2017 EXAM: CT Abdomen/Pelvis w/ contrast AGE: [age] years old. GENDER: Male. INDICATION: abdominal or pelvic pain (bi lateral flank pain, nausea, elevated WBC and CRP) COMPARISON: December 07, 2014 FINDINGS: Moderate milliliters of Omnipa que 350 contrast was injected intravenously. 40 mL saline jameel us. Lung bases: Visualized lung bases are cl ear. Abdomen and pelvis: Decreased attenuatio n changes throughout the liver compatible probable steatosis. No evidence of appendicitis. Small bilateral parapelvic cysts. No appreciable renal or ureteral calculi . No evidence of intestinal or colonic obs truction. No appreciable free intraperitoneal air. Small disc bulge L4 disc space level. IMPRESSION: 1. No evidence of appendicitis. 2. No evidence of intestinal or colonic obstruction. 3. Probable steatosis. 4. No appreciable renal or ureteral calc brittany. Abdomen and pelvis otherwise unremarkabl e for acute findings. Elma Shaikh(R)(CT), RSaima(R) TRISH CT PROCEDURES documented in this encounter Visit Diagnoses Not on filedocumented in this encounter
--- OUTSIDE RECORDS SUMMARY | 2022-08-19 06:58 | XMS_ITS | Encounter Summary ---
:1975 Author Organization [facility] Address [address] [place] [address] Care Team Providers Name Role Phone Unavailable Primary Care Provider Unavailable Encounter Details Date Type Department Care Team Description 06/08/2015 Hospital Encounter HX NO MAPPING Gopi Huggins III, M.D. (Skip), M.P.H. [address] [place], [place] [address] (Wo rk) Social History [...] attend roman catholic or Patient refused 2020 rastafari services? Do [...] - - Height 161 cm (5' 3.39) 06/08/2015 4:04 PM CDT Body Mass Index - - documented in this encounter Plan of Treatment Not on filedocumented as of this encounter Procedures Procedure Name Priority Date/Time Associated Diagnosis Comme nts CT HEAD WITHOUT IV Routine 06/08/2015 4:29 PM Res ults for this CONTRAST CDT procedure are i n the results section. documented in this encounter Results CT Head without IV Contrast (06/08/2015 4:29 PM CDT) Anatomical Region Laterality Modality Head N/A Computed Tomography Specimen (Source) Anatomical Collection Method Collection Time Re ceived Time Location / / Volume Laterality 06/08/2015 4:29 PM CDT Impressions 06/08/2015 4:43 PM CDT 1. Negative head CT. Narrative 06/08/2015 4:43 PM CDT EXAM: CT Head w/o contrast INDICATION: HEAD INJURY (stood up,hit he ad on pipe at work,fell to ground; possible LOC; +headache; normal neuro exam; no neck pain) AGE: 39 years-old COMPARISON: 07/21/14 FINDINGS: Brain attenuation and morpholo gy are normal. ??No brain atrophy. Negative for intracranial hemor rhage, brain mass, acute infarct, herniation, and ventriculomegal y. Negative for extra-axial fluid collections and masses. Negative for skull fracture. Mastoids ar e clear. Orbits are negative. Imaged upper paranasal sinuses are clear. Procedure Note Kanu Agrawal M.D. / Jean Claude Cason M.D. - 02/18/2017 EXAM: CT Head w/o contrast INDICATION: HEAD INJURY (stood up,hit he ad on pipe at work,fell to ground; possible LOC; +headache; normal neuro exam; no neck pain) AGE: 39 years-old COMPARISON: 07/21/14 FINDINGS: Brain attenuation and morpholo gy are normal. No brain atrophy. Negative for intracranial hemor rhage, brain mass, acute infarct, herniation, and ventriculomegal y. Negative for extra-axial fluid collections and masses. Negative for skull fracture. Mastoids ar e clear. Orbits are negative. Imaged upper paranasal sinuses are clear. IMPRESSION: 1. Negative head CT. Haylee Sim R.T.(R)(CT), R.T.(R), R.T.(R)(MR) IMG CT PROCEDURES documented in this encounter Visit Diagnoses Not on filedocumented in this encounter
--- OUTSIDE RECORDS SUMMARY | 2022-08-19 06:58 | XMS_ITS | Encounter Summary ---
:1975 Author Organization [facility] Address [address] [place] [address] Care Team Providers Name Role Phone Unavailable Primary Care Provider Unavailable Encounter Details Date Type Department Care Team Description 04/22/2016 Hospital Encounter HX [facility] Larry Mejia M.D. [address] [place] [address] (Wo rk) Social History Tobacco Use Types [...] you attend sikh or Patient refused 2020 mandaeism services? Do [...] Sign Reading Time Taken Comments Blood Pressure 110/62 04/22/2016 8:04 AM CDT Pulse 68 04/22/2016 8:04 AM CDT Temperature - - Respiratory Rate 18 04/22/2016 8:04 AM CDT Oxygen Saturation - - Inhaled Oxygen Concentration - - Weight 69.6 kg (153 lb 7 oz) 04/22/2016 8:04 AM CDT Height 161 cm (5' 3.39) 04/22/2016 8:04 AM CDT Body Mass Index 26.85 04/22/2016 8:04 AM CDT documented in this encounter Consult Notes Larry Mejia M.D. - 04/22/2016 7:37 AM CDT [id number] REFERRAL SOURCE Markos Claire CNP CHIEF COMPLAINT/REASON FOR VISIT Balance issues and poor vision. HISTORY OF PRESENT ILLNESS Mr. Jaimes is a 40-year-old gentleman with no past neurologic or medical history who presents today at the request of Mr. Simmonsdayanara for evaluation of balance and vision issues. He says he has had a really bad balance problem for greater than a year now. He feels like it has been getting worse over time. He has a difficult time describing it, saying that he feels weird. Hefeels like things are worse when his eyes are closed, when he is at work, or if he has complicated sensory stimulus around him (out and about rather than at home and relaxing, when out on the water fishing, etc). He has not had any falls. He does endorse that he has had multiple concussions and hit his head very hard at work about a year ago, though he thinks that he had symptoms that started priorto that. He also says it is especially bad when he wakes up in the middle of the night and gets up to go to the bathroom. He says his vision has been declining over this same time period. He describes everything as being blurry. It is always a little bit blurry, but the severity comes and goes. Again, this is also worse at work, as well as worse with fluorescent lights. Closing one eye or another does not matter. He also says that more recently he has stuttering from time to time and that is uncommon for him. Nothing is necessarily interfering with his life at present, but he does say he just doesn't feel likemyself. His says that he is under a lot of stress in general. His symptoms became worse after their marriage and the of their son, both of which occurred last May. He endorses having a hard time getting to sleep. There are financial stressors as well. CT and MRI of the brain performed within the last year have been unremarkable. MRI of the lumbar spine was also performed and showed some mild degenerative disease but no significant pathology. Labs performed to date include CBC, sodium, potassium, chloride, bicarbonate, creatinine, alkaline phosphatase, BUN, calcium, AST, ALT, total bilirubin, CRP, TSH and free T4. The only abnormality in any of these is his TSH which is mildly elevated at about 5 with a normal free T4. MEDICATIONS Reviewed per the EMR. ALLERGIES Reviewed per the EMR. SYSTEMS REVIEW Comprehensive review of systems performed and negative except as otherwise listed in the HPI. PAST MEDICAL/SURGICAL HISTORY None. SOCIAL HISTORY He does not smoke, but he does chew tobacco. He denies alcohol use or illicit drug use. FAMILY HISTORY There is no family history of neurologic disease. He does say that he had an uncle who recently diedof dementia. However, this uncle was not a blood relation. VITAL SIGNS Temperature 36.3, heart rate 68, respiratory rate 18, blood pressure 110/62. PHYSICAL EXAMINATION GENERAL: No acute distress. COGNITION: Alert and oriented x 4. CRANIAL NERVES: methods specialist II-XII intact and symmetric. MOTOR: Full strength throughout the upper and lower extremities bilaterally both proximally and distally. Normal tone. No pronator drift. No tremor. REFLEXES: Normal and symmetric at the biceps, triceps, brachioradialis, knees, and ankles. Toes are downgoing to plantar stimulation. SENSORY: Intact and symmetric to touch, pinprick, and joint position in the distal portions of the upper and lower extremities. CEREBELLAR: Heel-quiles, mbgvdw-zzzk-twokuw, and AMRs are performed well without evidence of appendicular ataxia. GAIT: Normal with appropriate base, good heel strike, arm swing, and stride length. IMPRESSION/REPORT/PLAN 1. Balance issues, suspect persistent postural-perceptual dizziness. 2. Blurry vision. Mr. Jaimes describes more than a year of symptoms including troublesome balance symptoms that are worse in complex environments and without obvious neurologic features on examination. I suspect hehas persistent postural perceptual dizziness. We will perform a vitamin B12, vitamin D levels, and sy philis serologies, as well as vestibular testing. He does understand the vestibular testing is performed in [place], and is okay with this. I do not find a neurologic cause for blurry vision as blurry vision in and of itself is typically not neurologic. To make sure he does not have any particular ocular issue or just simply needs glasses,we will have him evaluated by Ophthalmology. He will return to me after testing. Pbuc-zd-kjqu time this encounter was 40 minutes with greater than 50% of that spent in counseling and coordination of care. Larry Mejia M.D./kobe Electronically Signed By: LARRY MEJIA MD On: 04/22/2016 09:43 AM Modified by and Electronically Signed by: LARRY MEJIA MD On: 04/22/2016 09:43 AM Source: [facility] MHSDOLBEYNONRADSYS Document Id: [id number] documented in this encounter Miscellaneous Notes Miscellaneous - Larry Mejia M.D. - 04/30/2016 8:31 AM CDT Return visit Document Contains Addenda Addendum by ELVIRA MCKEON LPN on May 01, 2016 11:44:07 CDT Patient is notified and he will see Dr. Mejia to talk this over. He will also keep his Ophtahalmology appt. Addendum by DUNG BELL on May 01, 2016 11:29:50 CDT Alon is returning a call to elvira Addendum by ELVIRA MCKEON LPN on April 30, 2016 14:54:10 CDT Left message to call back. Addendum by LARRY MEJIA MD on April 30, 2016 14:14:09 CDT From: LARRY MEJIA MD To: [facility] Nephrology/Neurology Nurse; Sent: 04/30/2016 14:14:09 CDT Subject: RE: Return visit I'd like him to see ophthalmology before we wrap up since I ordered that consult. The clinical picture requires a bit of a complicated explanation. The bottom line is that the testing is consistent with something called persistent postural-percetpual dizziness, which is a sense of dizziness and imbalance when the body is actually working normally (almost like coming off of a boat or trampoline, you feel strange even though everything is normal). It may be helpful for him to undergo vestibular rehabilitation in [place] in order to help dampen these sensations. I can order that if he wants to get started, but the segb-vz-zkaz will go a much longer way in giving an explanation for his symptoms. If he'd like to try and meet sometime before the eye doctor, then we can arrange for an earlier appointment based on his schedule. Addendum by ELVIRA MCKEON LPN on April 30, 2016 13:23:13 CDT From: ELVIRA MCKEON LPN ( Nephrology/Neurology Nurse) To: LARRY MEJIA MD; Sent: 04/30/2016 13:23:13 CDT Subject: FW: Return visit He seen Opthomology in May, was he to see them again? Are all of his tests in. I could see if he can come at 3pm today. Addendum by MARCELLO COLE on April 30, 2016 12:36:06 CDT From: MARCELLO COLE ([address] [place]) To: DARYN Nephrology/Neurology Nurse; Sent: 04/30/2016 12:36:06 CDT Subject: FW: Return visit Patient is scheduled for next available with Roberto- he hasnt heard anything in regards to his lab work results yet and would like to speak to a nurse- [phone] Addendum by MARCELLO COLE on April 30, 2016 09:11:14 CDT Left message to call back and schedule Addendum by ELVIRA MCKEON LPN on April 30, 2016 08:45:25 CDT From: ELVIRA MCKEON LPN ( Nephrology/Neurology Nurse) To: [address] [place]; Sent: 04/30/2016 08:45:25 CDT Subject: FW: Return visit PSR, Please call the patient to set up an appt. Thank you, Elvira From: LARRY MEJIA MD To: Nephrology/Neurology Nurse; Sent: 04/30/2016 08:31:46 CDT Subject: Return visit I'd ordered a return for Mr. Jaimes following all of his testing. I don't see anything scheduled for after he sees ophthalmology. Can you look into this and make sure he gets set up to see me backto go over things? Larry Neumann Source: [facility] POWERCHART Document Id: [id number] Electronically signed by Shady [facility] Genetic Technologist [id number] at 03/07/2017 10:32 PM CDT Miscellaneous - Larry Mejia M.D. - 04/22/2016 9:00 AM CDT Ambulatory Patient Summary [address] [id number] Visit Information Name: MUSA ALON GUTIERREZ [facility] Number: [id number] Current Date: 04/22/2016 09:00:44 Physicians Attending Provider: LARRY MEJIA MD Primary Care Provider: MARKOS CLAIRE APRN, PICTURE PAINTER ALON JAIMES has been given the following [...] the Following Medications: Medication list as of 04-22-16 09:00 Attention: If you have any medications at [...] Electronically Signed By: LARRY MEJIA MD Signed On:22-APR-2016 09:00:42 Your Allergies & Intolerances Substance Reaction Symptoms Category Comments penicillins Drug Toradol Drug Latex Other Your Problem List Problem Status Onset Comments No Chronic Problems Active Your Upcoming Appointments Date Time Location Provider 05/23/2016 09:05 KAUSHAL Gallegos MD, Anival Wang Attention: Contact your local Clinic if further [...] if you dont have one. Go to [email or web address] and click on Create Your Account. Then, follow the directions to complete the online form. Youll be asked for your [facility] number which you can find at the top of this document. Your Goals/Additional instructions: Source: [facility] POWERCHART Document Id: [id number] Miscellaneous - Larry Mejia M.D. - 04/22/2016 9:00 AM CDT Ambulatory Discharge Medication List [facility] [address] [place], [place] [id number] Visit Information Name: ALON JAIMES [facility] Number: [id number] Visit Date: 04/22/2016 09:00:44 Attending Provider: LARRY MEJIA MD Primary Care Provider: MARKOS CLAIRE APRN, PICTURE PAINTER ALON JAIMES has been given the following [...] the Following Medications: Medication list as of 04-22-16 09:00 Attention: If you have any medications at [...] Electronically Signed By: LARRY MEJIA MD Signed On:22-APR-2016 09:00:42 Additional Information: Source: [facility] POWERCHART Document Id: [id number] Miscellaneous - Demi Patten, L.P.N. - 04/22/2016 8:04 AM CDT Adult Lecturer In Computer Science Intake/History Adult Lecturer In Computer Science Intake/History Entered On: 04/22/2016 8:11 CDT Performed On: 04/22/2016 8:04 CDT by DEMI PATTEN LPN Intake Chief Complaint : Balance issues, dizzy really bad, vision is blurry from time to time, hit on head at work a year ago Temperature Oral : 36.3 DegC(Converted to: 97.3 DegF) Peripheral Pulse Rate : 68 /min Respiratory Rate : 18 /min Systolic Blood Pressure : 110 mmHg Diastolic Blood Pressure : 62 mmHg NIBP Mean : 78 mmHg BP Location : Right upper extremity Blood Pressure Cuff Size : Large Height : 161 cm(Converted to: 5 ft 3 inch(es), 63 inch(es)) Actual Weight : 69.6 kg(Converted to: 153 lb 7 oz) Weight Source : Standing scale Dosing Weight Clinic : 69.6 kg Clinic BSA : 1.76 Body Mass Index : 26.85 kg/m2 DEMI PATTEN LPN - 04/22/2016 8:04 CDT General Info Information Given By : Patient Preferred Communication Mode : Verbal Languages : Danish Is Patient Female and 13-50 no hysterectomy : No DEMI PATTEN LPN - 04/22/2016 8:04 CDT Subjective Pain Symptoms : No DEMI PATTEN LPN - 04/22/2016 8:04 CDT Dependent Habits Exposure to Tobacco Smoke : Other: chew Smoking Status : Unknown if ever smoke Tobacco 2A : Unknown Tobacco Use/Currently Using : Yes Tobacco Use/Last 30 Days : Yes Tobacco Use/Last 12 months : Yes Type : Smokeless Tobacco: 3 cans/pouches or more per week Tobacco Use/Advised to Quit : Yes DEMI PATTEN LPN - 04/22/2016 8:04 CDT Caffeine Use Grid Caffeine Use : Current Type : Coffee Frequency : Occasionally Last Use : FEW DAYS AGO DEMI PATTEN LPN - 04/22/2016 8:04 CDT Recreational Drug Use Grid Drug Use : Current Type : Alcohol Route : Oral Frequency : Daily Amount : 12 BEERS-CASE BEER Age First Used : 10 YRS OLD Length of Sobriety : 1 YEAR Consequences of Use : Legal, Relationships, School Previous Treatment : YES Support Group Experience : AA, ACOA, AL-NON Withdrawal Potential : Yes DEMI PATTEN LPN - 04/22/2016 8:04 CDT Source: [employer] Document Id: [id number]!52 documented in this encounter Plan of Treatment Not on filedocumented as of this encounter Procedures Procedure Name Priority Date/Time Associated Diagnosis Comme nts SYPHILIS TOTAL AB Routine 04/22/2016 9:41 AM Resu lts for this W/ REFLEX S CDT procedure are i n the results section. 25-HYDROXYVITAMIN Routine 04/22/2016 9:41 AM Resu lts for this D2 AND D3, S CDT procedure are i n the results section. VITAMIN B12 ASSAY, Routine 04/22/2016 9:41 AM Res ults for this S CDT procedure are i n the results section. documented in this encounter Results 25-Hydroxyvitamin D2 and D3 (04/22/2016 9:41 AM CDT) athologist Signature HX25 HYDROXY D2 <4.0 NGML POWERCHART 25-Hydroxy D3 39 [facility] POWERCHART Vitamin D, S 39 [facility] POWERCHART Comment: REFERENCE VALUE------ 25-HYDROXY D TOTAL (D2+D3) Optimum level s in the healthy population are 20-50, patients with bone disease may benefit from higher levels within this r bri. Test Performed by: [facility] [address] [place] [address] Brazer Resistance: Clyde Dennison II, M.D., Ph.D. Specimen (Source) Anatomical Collection Method Collection Time Re ceived Time Location / / Volume Laterality Blood 04/22/2016 9:41 AM CDT Larry Mejia M.D. LAB BLOOD ADD-ON Performing Organization Address City/[facility] Code Phon e Number POWERCHART Syphilis IgG Antibody with Reflex (04/22/2016 9:41 AM CDT) athologist Signature Syphilis IgG Negative Negative POWERCHART Ab, S Comment: No serologic evidence of exposure to syp hilis. Test Performed by: [facility] [address] [place] [address] Brazer Resistance: Clyde Dennison II, M.D., Ph.D. Specimen (Source) Anatomical Collection Method Collection Time Re ceived Time Location / / Volume Laterality Blood 04/22/2016 9:41 AM CDT Larry Mejia M.D. LAB BLOOD ADD-ON Performing Organization Address City/[facility]/ZIP Code Phon e Number POWERCHART Vitamin B12 Assay (04/22/2016 9:41 AM CDT) athologist Signature Vitamin B12 [phone] POWERCHART Assay, S NGL Specimen (Source) Anatomical Collection Method Collection Time Re ceived Time Location / / Volume Laterality Blood 04/22/2016 9:41 AM CDT Larry Mejia M.D. LAB BLOOD ADD-ON Performing Organization Address City/[facility]/ZIP Code Phon e Number POWERCHART documented in this encounter Visit Diagnoses Not on filedocumented in this encounter
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
--- OUTSIDE RECORDS SUMMARY | 2022-08-19 06:58 | XMS_ITS | Encounter Summary ---
:1975 Author Organization [facility] Address [address] [place] [address] Care Team Providers Name Role Phone Unavailable Primary Care Provider Unavailable Encounter Details Date Type Department Care Team Description 05/23/2015 Hospital Encounter HX [facility] LAB Markos Claire AP RN, C.N.P. [address] [place], [place] [phone] (Wo rk) Social History [...] you attend druze or Patient refused 2020 buddhism services? Do [...] - - Height 161 cm (5' 3.39) 05/23/2015 9:33 AM CDT Body Mass Index - - documented in this encounter Plan of Treatment Not on filedocumented as of this encounter Procedures Procedure Name Priority Date/Time Associated Diagnosis Comme nts THYROID-STIMULATING Routine 05/23/2015 9:45 AM Re sults for this HORMONE-SENSITIVE CDT procedure are in (S-TSH) the results section. documented in this encounter Results (ABNORMAL) Thyroid-Stimulating Hormone-Sensitive (s-TSH) (05/23/2015 9:45 AM CDT) P athologist Signature TSH 5.05 (H) 0.27 - POWERCHART (Thyrotropin) 4.20 MIUL Specimen (Source) Anatomical Collection Method Collection Time Re ceived Time Location / / Volume Laterality Blood 05/23/2015 9:45 AM CDT Markos Claire APRN, C.N.P. LAB BLOOD ADD-ON Performing Organization Address City/State/ZIP Code Phon e Number POWERCHART documented in this encounter Visit Diagnoses Not on filedocumented in this encounter
--- OUTSIDE RECORDS SUMMARY | 2022-08-19 06:58 | XMS_ITS | Encounter Summary ---
:1975 Author Organization [facility] Address [address] [place] [address] Care Team Providers Name Role Phone Unavailable Primary Care Provider Unavailable Encounter Details Date Type Department Care Team Description 03/24/2016 Hospital Encounter [facility]X [facility] INTERNMED Markos Claire, ELA, C.N.P. [address] [place] [address] (Wo rk) Social History Tobacco [...] you attend sikh or Patient refused 2020 christian services? Do [...] Sign Reading Time Taken Comments Blood Pressure 108/76 03/24/2016 1:30 PM CDT Pulse 84 03/24/2016 1:30 PM CDT Temperature - - Respiratory Rate - - Oxygen Saturation - - Inhaled Oxygen Concentration - - Weight 69.4 kg (153 lb) 03/24/2016 1:30 PM CDT Height 161 cm (5' 3.39) 03/24/2016 1:30 PM CDT Body Mass Index 26.77 03/24/2016 1:30 PM CDT documented in this encounter Progress Notes Markos Claire, ELA, C.N.P. - 03/24/2016 1:06 PM CDT [id number] CHIEF COMPLAINT/REASON FOR VISIT Ongoing balance issues. HISTORY OF PRESENT ILLNESS Alon is seen today with continued issues with balance. I had first met this gentleman back last year. Initially he had been experiencing some back pain. This has since resolved. However, he had also brought up issues with balance. This is first described back on May 18, 2015. The patient describes a sensation of being lightheaded and dizzy but not true vertigo. He has a hard time describing the sensation but generally reports it as being off balance. He feels that at times he does not walk straight and feels lightheaded. He reports that others around him never comment that he is moving abnormally however. His who accompanies him to his appointment today indicates that he has been largelycomplaining about these symptoms for a couple of years. She was with him at some of his appointmentslast year as well I remember. She has not noticed any significant progression over the last year butdoes indicate that on a nearly daily basis he continues to describe these symptoms. She herself does not particularly see that he is off balance and she has not noticed any significant memory problems.Patient is concerned because he has had repeated head injuries in the past. These have all been closed head injuries and reports multiple episodes of being knocked out. In fact, since seeing him he had an episode of loss of consciousness while at work having had a CT scan of his head on June 08, 2015. This was after he had a brain MRI just a couple of days prior. Would note that brain MRI was unremarkable. Back last year I had referred him to Neurology for evaluation given his ongoing symptoms. However, he reports for insurance reasons he never made this appointment. MEDICATIONS None. ALLERGIES Latex. Penicillin. Toradol. VITAL SIGNS Pulse 84, blood pressure 108/76. Weight 69.4 kg. PHYSICAL EXAMINATION GENERAL: Well-developed male, no acute distress. Alert, oriented, appears slightly anxious as he hasin the past. MUSCULOSKELETAL: Patient has equal production support manager strength. He has equal strength of flexion and extension of his upper and lower extremities bilaterally with full range of motion bilaterally. Normal patellar, Achilles and biceps deep tendon reflexes. NEUROLOGIC: Cranial nerves II through XII grossly intact. His gait appears normal. Heel-to-toe walk is normal. IMPRESSION/REPORT/PLAN Lightheadedness with the perception of being off of balance. I continue to not detect any significant neurologic problems though the patient does report multiple episodes of loss of consciousness and closed head injuries in the past. I do not know if he has a bit of a post concussive syndrome that he carries along with him though I also feel what he is describing may be completely non- neurologic and psychologic. He does have some tendencies between talking to him and his and observing his mannerisms of some adult attention deficit disorder/attention deficit hyperactivity disorder. One wonders whether or not he is having some physical manifestations with regard to that being untreated, maybe even underlying anxiety disorder. I think a systematic way to move forward given his repeated head injuries, I would like him to see Neurology. If General Neurology feels that we are okay to move forwardfrom a psychological standpoint, may look at treating him for adult attention deficit hyperactivity disorder and/or anxiety disorder to see if this can quell his symptoms. I appreciate Neurology's impression and I would like to see him back once he has had that consult. Markos Claire, C.N.PPatricia/kobe Electronically Signed By: MARKOS CLAIRE APRN, CNP On: 03/26/2016 08:45 AM Source: [facility] MHSDOLBEYNONRADSYS Document Id: [id number] documented in this encounter Miscellaneous Notes Miscellaneous - Lorna Rm L.P.N. - 12/19/2016 3:52 PM CST Med Management Document Contains Addenda Addendum by MARINO DAHL LPN on December 22, 2016 15:05:58 CDT left message- rx is at info desk and needs appt for further refills. Addendum by DUNG BELL on December 22, 2016 11:29:20 CDT Please call patient back at [phone]. Addendum by LORNA RM LPN on December 19, 2016 16:48:26 LEATHER WORKER ldd Addendum lmtcb> Addendum by MARKOS CLAIRE APRN, DOMENIC on December 19, 2016 16:13:30 LEATHER WORKER From: MARKOS CLAIRE APRN, RN To: DARYN Claire Nurse; Sent: 12/19/2016 16:13:30 LEATHER WORKER Subject: RE: Med Management Filled, he needs a follow up appointment before his next refill. Addendum by MARKOS CLAIRE APRN, RN on December 19, 2016 16:13:13 LEATHER WORKER Approved Order:dextroamphetamine-amphetamine (Adderall 5 mg oral tablet) 1 tab(s) PO 2xDay AM & Noon CSA signed 09/10/16 Qty: 60 tab(s) Refills: 0 Substitutions Allowed Print - [id number] Signed by MARKOS CLAIRE APRN, DOMENIC 12/19/2016 16:13:10 From: LORNA RM LPN (DARYN Claire Nurse) To: MARKOS CLAIRE APRN, DOMENIC; Sent: 12/19/2016 15:52:09 LEATHER WORKER Subject: Med Management On hold pending signature Order:dextroamphetamine-amphetamine (Adderall 5 mg oral tablet) 1 tab(s) PO 2xDay AM & Noon CSA signed 09/10/16 Qty: 60 tab(s) Refills: 0 Substitutions Allowed Print - [id number] on [employer] (from [id number]) in session 190 Caller is: ( ) Patient ( ) Mother ( ) Father ( ) Spouse ( ) Daughter ( ) Son ( Maureen Morley ) Pharmacy ( ) Other: Provider: Alethea Pharmacy: [facility] Name of Medications Needing Refill:Adderall 5mg Last Refill Date: 11-18-16 Additional Information: Last / Future Appointment: Disposition: ( ) Send to Pharmacy ( ) Call to Pharmacy ( x ) 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 - 03/24/2016 2:33 PM CDT Ambulatory Patient Summary [address] [id number] Visit Information Name: ALON VIGIL [facility] Number: [id number] Current Date: 03/24/2016 14:33:11 Physicians Attending Provider: MARKOS CLAIRE APRN, CNP Primary Care Provider: MARKOS CLAIRE APRN, CNP ALON VIGIL has been [...] the Following Medications: Medication list as of 03-24-16 14:33 Attention: If you have any medications at [...] Signed By: MARKOS CLAIRE APRN, CNP Signed On:24-MAR-2016 14:33:07 Your Allergies & Intolerances Substance Reaction Symptoms Category Comments penicillins Drug Toradol Drug Latex Other Your Problem List Problem Status Onset Comments No Chronic Problems Active Your Upcoming Appointments Date Time Location Provider 04/22/2016 07:45 [facility] Roberto SLOAN, Kanu Delatorre Attention: Contact [...] dont have one. Go to [email or web address] and click on Create Your Account. Then, follow the directions to complete the online form. Youll be asked for your [facility] number which you can find at the top of this document. Your Goals/Additional instructions: Source: [facility] POWERCHART Document Id: [id number] Miscellaneous - Markos Claire APRN, C.N.P. - 03/24/2016 2:33 PM CDT Ambulatory Discharge Medication List [facility] [address] [place] [id number] Visit Information Name: ALON VIGIL [facility] Number: [id number] Visit Date: 03/24/2016 14:33:10 Attending Provider: MARKOS CLAIRE APRN, CNP Primary Care Provider: MARKOS CLAIRE APRN, CNP ALON VIGIL has been [...] the Following Medications: Medication list as of 03-24-16 14:33 Attention: If you have any medications at [...] Signed By: MARKOS CLAIRE APRN, CNP Signed On:24-MAR-2016 14:33:07 Additional Information: Source: [facility] POWERCHART Document Id: [id number] Miscellaneous - Lorna Rm L.PPatriciaNPatricia - 03/24/2016 1:30 PM CDT Adult Therapist Asst Intake/History Adult Therapist Asst Intake/History Entered On: 03/24/2016 13:35 CDT Performed On: 03/24/2016 13:30 CDT by LORNA RM LPN Intake Chief Complaint : concerned about balance and dizzy episodes alot stress and anxiety, unable to sleep Peripheral Pulse Rate : 84 /min Systolic Blood Pressure : 108 mmHg Diastolic Blood Pressure : 76 mmHg NIBP Mean : 87 mmHg BP Location : Right upper extremity Blood Pressure Cuff Size : Regular Height : 161 cm(Converted to: 5 ft 3 inch(es), 63 inch(es)) Actual Weight : 69.4 kg(Converted to: 153 lb 0 oz) Dosing Weight Clinic : 69.4 kg Clinic BSA : 1.76 Body Mass Index : 26.77 kg/m2 LORNA RM LPN - 03/24/2016 13:30 CDT General Info Information Given By : Patient Preferred Communication Mode : Verbal Languages : Italian Is Patient Female and 13-50 no hysterectomy : No LORNA RM LPN - 03/24/2016 13:30 CDT Subjective Pain Symptoms : No LORNA RM LPN - 03/24/2016 13:30 CDT Dependent Habits Exposure to Tobacco Smoke : Other: chew Smoking Status : Never smoker Tobacco 2A : Yes Tobacco Use/Currently Using : Yes Tobacco Use/Last 30 Days : Yes Tobacco Use/Last 12 months : Yes Type : Smokeless Tobacco: 3 cans/pouches or more per week Tobacco Use/Advised to Quit : Yes LORNA RM LPN - 03/24/2016 13:30 CDT Caffeine Use Grid Caffeine Use : Current Type : Coffee Frequency : Occasionally Last Use : FEW DAYS AGO LORNA RM LPN - 03/24/2016 13:30 CDT Recreational Drug Use Grid Drug Use : Current Type : Alcohol Route : Oral Frequency : Daily Amount : 12 BEERS-CASE BEER Age First Used : 10 YRS OLD Length of Sobriety : 1 YEAR Consequences of Use : Legal, Relationships, School Previous Treatment : YES Support Group Experience : AA, ACOA, AL-NON Withdrawal Potential : Yes LORNA RM LPN - 03/24/2016 13:30 CDT Source: [employer] Document Id: [id number] CDT!49 Miscellaneous - Lorna Rm L.P.N. - 03/24/2016 1:27 PM CDT Health Assessment Health Assessment Entered On: 03/24/2016 13:29 CDT Performed On: 03/24/2016 13:27 CDT by LORNA RM LPN Health Assessment Complete Health Assessment Complete or Modified : Annual Health Assessment Annual Health Assessment Completed : Yes LORNA RM LPN - 03/24/2016 13:27 CDT Nutrition Nutrition Risk Factors by History Adult : None LORNA RM LPN - 03/24/2016 13:27 CDT Functional Current Daily Living Assistance : None LORNA RM LPN - 03/24/2016 13:27 CDT Dependent Habits Exposure to Tobacco Smoke : Other: chew Smoking Status : Never smoker Tobacco 2A : Yes Tobacco Use/Currently Using : Yes Tobacco Use/Last 30 Days : Yes Tobacco Use/Last 12 months : Yes Type : Smokeless Tobacco: 3 cans/pouches or more per week Tobacco Use/Advised to Quit : Yes LORNA RM LPN - 03/24/2016 13:27 CDT Caffeine Use Grid Caffeine Use : Current Type : Coffee Frequency : Occasionally Last Use : FEW DAYS AGO LORNA RM LPN - 03/24/2016 13:27 CDT Alcohol Use : No LORNA RM LPN - 03/24/2016 13:27 CDT Recreational Drug Use Grid Drug Use : Current Type : Alcohol Route : Oral Frequency : Daily Amount : 12 BEERS-CASE BEER Age First Used : 10 YRS OLD Length of Sobriety : 1 YEAR Consequences of Use : Legal, Relationships, School Previous Treatment : YES Support Group Experience : AA, BESSY, JADA-NON Withdrawal Potential : Yes LORNA RM LPN - 03/24/2016 13:27 CDT Psychosocial Domestic Abuse Concerns : None Behavioral Health Screen/Safety Assmt : No Congregational Preference : LORNA Yoder LPN - 03/24/2016 13:27 CDT Advance Directive Advanced Directives : No Advance Directive Additional Information : No LORNA RM LPN - 03/24/2016 13:27 CDT Educ Needs Learning Style Preference Adult Grid Patient : Demonstration, Printed materials, Verbal explanation Family : Verbal explanation, Printed materials, Demonstration LORNA RM LPN - 03/24/2016 13:27 CDT [facility] Document Id: [id number] CDT!48 documented in this encounter Plan of Treatment Not on filedocumented as of this encounter Visit Diagnoses Not on filedocumented in this encounter
--- OUTSIDE RECORDS SUMMARY | 2022-08-19 06:58 | XMS_ITS | Encounter Summary ---
:1975 Author Organization [facility] Address [address] [place] [address] Care Team Providers Name Role Phone Unavailable Primary Care Provider Unavailable Encounter Details Date Type Department Care Team Description 06/06/2015 Hospital Encounter HX [facility] Markos Her A PRN, C.N.P. [address] [place], [place] [phone] (Wo rk) Social History [...] you attend shinto or Patient refused 2020 religion services? Do [...] - Height 161 cm (5' 3.39) 06/06/2015 7:26 AM CDT Body Mass Index - - documented in this encounter Plan of Treatment Not on filedocumented as of this encounter Visit Diagnoses Not on filedocumented in this encounter
--- OUTSIDE RECORDS SUMMARY | 2022-08-19 06:58 | XMS_ITS | Encounter Summary ---
:1975 Author Organization [facility] Address [address] [place] [address] Care Team Providers Name Role Phone Unavailable Primary Care Provider Unavailable Encounter Details Date Type Department Care Team Description 05/23/2015 Hospital Encounter HX [facility] LAB Markos Claire AP RN, C.N.P. [address] [place], [place] [phone] (Wo rk) Social History [...] you attend orthodox or Patient refused 2020 alevism services? Do [...] - Height 161 cm (5' 3.39) 05/23/2015 9:34 AM CDT Body Mass Index - - documented in this encounter Miscellaneous Notes Miscellaneous - Markos Claire, ELA, C.N.P. - 05/24/2015 4:51 PM CDT Results Notification Document Contains Addenda Addendum by LILIANE HAYES LPN on 29 May 2015 11:52:52 CDT patient notified, he will call back to set up lab appointment. Addendum by MARINO DAHL on 28 May 2015 16:28:51 CDT not available- at work Addendum by MARCELLO COLE on 28 May 2015 12:34:12 CDT Patient called back- [phone] Addendum by EMILY MCKEON LPN on 25 May 2015 16:56:29 CDT Left message to call back. Addendum by KYARA BURNS on 25 May 2015 08:56:05 CDT patient would like a call from nurse for these results. Please call [phone] From: MARKOS CLAIRE PIN CHASER To: DARYN Claire Nurse; Sent: 05/24/2015 16:51:21 CDT ! Show up: 05/24/2015 16:51:21 CDT Subject: Results Notification Actions: Notify patient of results Reminder Comments: labs are all normal except for mild elevation in his TSH (thyroid test), this does not explain his symptoms. Recommend repeast TSH and Free T4 in 1 month. Dx: hypothyroid Results: Date Result Name Ind Value Ref Range 05/23/2015 09:45 Sodium Lvl 139 mmol/L (135 - 145) 05/23/2015 09:45 Potassium Lvl 4.4 mmol/L (3.6 - 5.2) 05/23/2015 09:45 Chloride 102 mmol/L (98 - 107) 05/23/2015 09:45 CO2 27 mmol/L (22 - 29) 05/23/2015 09:45 Alkaline Phosphatase 89 unit/L (45 - 115) 05/23/2015 09:45 Glucose Lvl 100 mg/dL (70 - 139) 05/23/2015 09:45 Creatinine 1.0 mg/dL (0.8 - 1.3) 05/23/2015 09:45 EGFR (MDRD) >60 mL/min/1.73m2 (>=60 - ) 05/23/2015 09:45 EGFR (MDRD) >60 mL/min/1.73m2 (>=60 - ) 05/23/2015 09:45 BUN 14 mg/dL (8 - 24) 05/23/2015 09:45 Calcium Lvl 9.5 mg/dL (8.6 - 10.3) 05/23/2015 09:45 Protein Total 6.9 G/DL (6.3 - 7.9) 05/23/2015 09:45 Albumin Lvl 4.2 G/DL (3.2 - 5.2) 05/23/2015 09:45 AST 21 unit/L (8 - 48) 05/23/2015 09:45 ALT 19 unit/L (7 - 55) 05/23/2015 09:45 Bili Total 0.4 mg/dL (0.1 - 1.0) 05/23/2015 09:45 CRP <3.0 mg/L ( - <=5.0) 05/23/2015 09:45 TSH (H) 5.05 mIU/L (0.27 - 4.20) 05/23/2015 09:45 Hgb 15.7 g/dL (13.5 - 17.5) 05/23/2015 09:45 Hct 45.4 % (38.8 - 50.0) 05/23/2015 09:45 WBC 7.7 x10(9)/L (3.5 - 10.5) 05/23/2015 09:45 RBC 5.04 x10(12)/L (4.32 - 5.72) 05/23/2015 09:45 MCV 90.1 fL (81.0 - 95.0) 05/23/2015 09:45 RDW 12.2 % (11.8 - 15.6) 05/23/2015 09:45 Platelet 213 x10(9)/L (150 - 450) 05/23/2015 09:45 Neutro Absolute 5.09 10(9)/L (1.70 - 7.00) 05/23/2015 09:45 Lymph Absolute 1.74 x10(9)/L (0.90 - 2.90) 05/23/2015 09:45 [place] Absolute 0.73 x10(9)/L (0.30 - 0.90) 05/23/2015 09:45 Eos Absolute 0.08 x10(9)/L (0.05 - 0.50) 05/23/2015 09:45 Baso Absolute 0.02 x10(9)/L (0.00 - 0.30) Source: [facility] [employer] Document Id: [id number] Electronically signed by Conversion, [facility] Tube Inspector [id number] at 03/08/2017 11:57 PM CDT documented in this encounter Plan of Treatment Not on filedocumented as of this encounter Procedures Procedure Name Priority Date/Time Associated Comments Diagnosis AUTOMATED Routine 05/23/2015 9:45 AM Results f or this DIFFERENTIAL, B CDT procedure ar e in the results section. CBC WITH DIFFERENTIAL, Routine 05/23/2015 9:45 AM Results for this B CDT procedure are i n the results section. C-REACTIVE PROTEIN Routine 05/23/2015 9:45 AM Res ults for this (CRP), S/P CDT procedure are i n the results section. COMPREHENSIVE Routine 05/23/2015 9:45 AM Results for this METABOLIC PANEL, S/P CDT procedu re are in the results section. documented in this encounter Results Automated Differential (05/23/2015 9:45 AM CDT) P athologist Signature Absolute 5.09 1.70 - POWERCHART Neutrophils 7.00 109L Lymphocytes 1.74 0.90 - POWERCHART 2.90 X109L Monocytes 0.73 0.30 - POWERCHART 0.90 X109L Eosinophils 0.08 0.05 - POWERCHART 0.50 X109L Absolute 0.02 0.00 - POWERCHART Basophil 0.30 X109L Specimen Anatomical Collection Method Collection Time Receive d Time (Source) Location / / Volume Laterality Blood 05/23/2015 9:45 AM 5 9:45 CDT AM CDT Markos Claire APRN, C.N.P. LAB BLOOD ADD-ON Performing Organization Address City/[facility]/ZIP Code Phon e Number POWERCHART CBC with Differential (05/23/2015 9:45 AM CDT) P athologist Signature Leukocytes 7.7 3.5 - 10.5 POWERCHART X109L Erythrocytes 5.04 4.32 - 5.72 POWERCHART [id number] Hemoglobin 15.7 13.5 - 17.5 POWERCHART GDL Hematocrit 45.4 38.8 - 50.0 POWERCHART MCV 90.1 81.0 - 95.0 POWERCHART FL HX RDW 12.2 11.8 - 15.6 POWERCHART Platelet Count 213 150 - 450 POWERCHART X109L Specimen (Source) Anatomical Collection Method Collection Time Re ceived Time Location / / Volume Laterality Blood 05/23/2015 9:45 AM CDT Markos Claire APRN C.N.P. LAB BLOOD ADD-ON Performing Organization Address City/[facility] Code Phon e Number POWERCHART CRP (C-Reactive Protein) (05/23/2015 9:45 AM CDT) P athologist Signature C-Reactive <3.0 <=5.0 MGL POWERCHART Protein (CRP), S Specimen (Source) Anatomical Collection Method Collection Time Re ceived Time Location / / Volume Laterality Blood 05/23/2015 9:45 AM CDT Markos Claire APRN, C.N.P. LAB BLOOD ADD-ON Performing Organization Address City/[facility] Code Phon e Number POWERCHART CMP (Comprehensive Metabolic Panel) (05/23/2015 9:45 AM CDT) Patholo gist Method Time Signature Alkaline 89 45 - 115 POWERCHART Phosphatase, S UNITL Alanine 19 7 - 55 POWERCHART Amniotransferase, LD UNITL Aspartate 21 8 - 48 POWERCHART Aminotransferase UNITL (AST), S Bilirubin, Total, S 0.4 0.1 - 1.0 POWERCHART MGDL BUN (Blood Urea 14 8 - 24 POWERCHART Nitrogen), S MGDL Chloride, S 102 98 - 107 POWERCHART MMOLL CO2 Total 27 22 - 29 POWERCHART MMOLL Creatinine 1.0 0.8 - 1.3 POWERCHART MGDL Total Protein, S 6.9 6.3 - 7.9 POWERCHART GDL Glucose 100 70 - 139 POWERCHART MGDL Calcium, Total, S 9.5 8.6 - POWERCHART 10.3 MGDL Sodium, S 139 135 - 145 POWERCHART MMOLL Potassium, S 4.4 3.6 - 5.2 POWERCHART MMOLL Albumin, S 4.2 3.2 - 5.2 POWERCHART GDL HXeGFR (MDRD) >60 >=60 POWERCHART [id number] 2 eGFR Black/ >60 >=60 POWERCHART [place] [id number] 2 Specimen (Source) Anatomical Collection Method Collection Time Re ceived Time Location / / Volume Laterality Blood 05/23/2015 9:45 AM CDT Markos Claire APRN, C.N.P. LAB BLOOD ADD-ON Performing Organization Address City/State/ZIP Code Phon e Number POWERCHART documented in this encounter Visit Diagnoses Not on filedocumented in this encounter
--- OUTSIDE RECORDS SUMMARY | 2022-08-19 06:58 | XMS_ITS | Encounter Summary ---
:1975 Author Organization [facility] Address [address] [place] [address] Care Team Providers Name Role Phone Unavailable Primary Care Provider Unavailable Encounter Details Date Type Department Care Team Description 06/06/2015 Hospital Encounter HX [facility] MRI Markos Claire, BROWN RN, C.N.P. [address] [place], [place] [phone] (Wo rk) Social History [...] you attend mu-ism or Patient refused 2020 protestant services? Do [...] Index - - documented in this encounter Procedure Notes Maria Ines Olivas R.T.(R)Hawa(R)(MR) - 06/06/2015 9:05 AM CDT Peripheral IV Peripheral IV Entered On: 06/06/2015 8:58 CDT Performed On: 06/06/2015 9:05 CDT by MARIA INES OLIVAS(R) RT (R)(MR) Peripheral IV Peripheral IV Assess/Intervention Grid Peripheral IV #1 IV Activity : Discontinue Removal : Catheter intact, Hemostasis within expected timeframe Number of Attempts : 1 Date of Insertion : 06/06/2015 CDT IV Site : Antecubital Laterality : Left Catheter Size : 20 Catheter Type : Over the needle Site Condition : No complications MARIA INES OLIVAS(R) RT (R)(MR) - 06/06/2015 8:58 CDT Source: [employer] Document Id: [id number] CDT!13 Electronically signed by Maria Ines Olivas R.T.(Vadim)(CT)Hawa(R), PhillipTPatricia(R)(MR) at 06/06/2015 8:58 AM CDT Maria Ines Olivas R.T.(R), R.TPatricia(R)(MR) - 06/06/2015 8:30 AM CDT Peripheral IV Peripheral IV Entered On: 06/06/2015 8:57 CDT Performed On: 06/06/2015 8:30 CDT by MARIA INES OLIVAS(R) RT (R)(MR) Peripheral IV Peripheral IV Assess/Intervention Grid Peripheral IV #1 IV Activity : Start Number of Attempts : 1 Date of Insertion : 06/06/2015 CDT IV Site : Antecubital Laterality : Left Catheter Size : 20 Catheter Type : Over the needle Site Condition : No complications MARIA INES OLIVAS RT(R) RT (R)(MR) - 06/06/2015 8:57 CDT Source: [facility] [employer] Document Id: [id number] CDT!12 documented in this encounter Plan of Treatment Not on filedocumented as of this encounter Procedures Procedure Name Priority Date/Time Associated Diagnosis Comme nts MR BRAIN WITHOUT Routine 06/06/2015 8:18 AM Resul ts for this AND WITH IV CDT procedure are i n CONTRAST the results section. documented in this encounter Results MR Brain without and with IV Contrast (06/06/2015 8:18 AM CDT) Anatomical Region Laterality Modality Head, Brain N/A Magnetic Resonance Specimen (Source) Anatomical Collection Method Collection Time Re ceived Time Location / / Volume Laterality 06/06/2015 8:18 AM CDT Impressions 06/06/2015 9:32 AM CDT Examination of the brain reveals no evidence of hemorrhage, mass or mass effect. The ventricles, cerebral sulci and ciste rns are within normal limits for patient's age. No abnormal extra-axial fluid collection s or masses are seen. The visualized 7th and 8th nerve complex es appear unremarkable. No enhancing lesions are identified. Narrative 06/06/2015 9:32 AM CDT EXAM: MR Brain w/ + w/o contrast. 7.0 ml s of Gadavist. INDICATION: persistent dizziness/balance problems x 1+ year (CT head July 2014 from ER) COMPARISON: CT of the head on 21 July 2014. Procedure Note Tj Monzon M.D. / Provider, His john M.D. - 02/18/2017 EXAM: MR Brain w/ + w/o contrast. 7.0 ml s of Gadavist. INDICATION: persistent dizziness/balance problems x 1+ year (CT head July 2014 from ER) COMPARISON: CT of the head on 21 July 2014. IMPRESSION: Examination of the brain rev eals no evidence of hemorrhage, mass or mass effect. The ventricles, cerebral sulci and ciste rns are within normal limits for patient's age. No abnormal extra-axial fluid collection s or masses are seen. The visualized 7th and 8th nerve complex es appear unremarkable. No enhancing lesions are identified. Maria Ines Olivas R.T.(R)(CT), R.T.(R), R.T.(R)(MR) I MG MRI PROCEDURES documented in this encounter Visit Diagnoses Not on filedocumented in this encounter
--- OUTSIDE RECORDS SUMMARY | 2022-08-19 06:58 | XMS_ITS | Encounter Summary ---
:1975 Author Organization [facility] Address [address] [place] [address] Care Team Providers Name Role Phone Unavailable Primary Care Provider Unavailable Encounter Details Date Type Department Care Team Description 06/01/2015 Hospital Encounter HX [facility] INTERNMED Markos Claire, ELA, C.N.P. [address] [place] [address] (Wo rk) Social History Tobacco [...] you attend yarsanism or Patient refused 2020 synagogue services? Do [...] Sign Reading Time Taken Comments Blood Pressure 116/64 06/01/2015 10:04 AM CDT Pulse 68 06/01/2015 10:04 AM CDT Temperature - - Respiratory Rate - - Oxygen Saturation - - Inhaled Oxygen Concentration - - Weight 68.7 kg (151 lb 7.3 oz) 06/01/2015 10:04 AM CDT Height 161 cm (5' 3.39) 06/01/2015 10:04 AM CDT Body Mass Index 26.5 06/01/2015 10:04 AM CDT documented in this encounter Progress Notes Markos Claire, ELA, C.N.P. - 06/01/2015 9:41 AM CDT [id number] CHIEF COMPLAINT/REASON FOR VISIT Followup tests. HISTORY OF PRESENT ILLNESS Mr. Vigil is here today to follow up on tests and also to receive a refill of pain medication.Patient continues to have ongoing lower back pain with bilateral lower radicular symptoms that have been going on for quite some time. Please see previous dictations for description of his problem. He was supposed to have an MRI done by now. However it has not been completed. However is scheduled for next week. He received a message from the clinic indicating that he was due for followup and so he came in today. Followup was supposed to be post MRIs. He has not used pain medications for a couple of months now and would like a refill as he feels thathis back is really bothering him. He also wanted to discuss his abnormal thyroid level. I had done a CBC, metabolic panel, and a TSH on him and the CBC, metabolic panel, and CRP were normal. However, his TSH was mildly elevated at 5. [facility] asked him to return for repeat TSH and T4 in about a month. The patient wants to know what that a bnormality means. MEDICATIONS Reviewed. No changes per EMR. ALLERGIES Latex. Penicillins. Toradol. VITAL SIGNS Pulse 68, blood pressure 116/64, weight 68.7 kg. PHYSICAL EXAMINATION Well-developed male, no acute distress. Alert and oriented x3. IMPRESSION/REPORT/PLAN 1. Lumbar radiculopathy. I have given the patient another limited prescription of hydrocodone/acetaminophen ([place]) for pain relief. Also Flexeril as a muscle relaxant. He has used these both in combination before and tolerated them well. We need to understand what is going on with his back as he has not even had x- rays or an MRI done before we can make further decisions for treatment. 2. Balance issues. The patient continues with balance issues. They have been going on now for quite some time and are largely unchanging. The patient is supposed to have a brain MRI done and has not had that done yet so again I do not know what else to do. His laboratory testing is normal. Neurologically his previous evaluations have been fine so if his brain MRI is fine I will refer him over to Neurology. Laurie LittleNCristine/kobe Electronically Signed By: MARKOS CLAIRE CENTRAL SUPPLY TECHNICIAN SUPERVISOR On: 06/07/2015 06:04 PM Source: [facility]SDOLBEYNON[employer]SYS Document Id: [id number] documented in this encounter Miscellaneous Notes Miscellaneous - Lorna Rm L.P.N. - 11/17/2016 3:38 PM CST *Medication Refill Msg Document Contains Addenda Addendum by ELVIRA MCKEON LPN on November 18, 2016 13:43 TECHNICAL SERVICE SPECIALIST Rx taken to the information desk for the patient Evette to [employer]. From: LORNA RM LPN ([facility] Nurse) To: MARKOS CLAIRE APRN, RN; Sent: 11/17/2016 15:38:16 TECHNICAL SERVICE SPECIALIST Subject: *Medication Refill Msg Caller is: ( ) Patient ( ) Mother ( ) Father ( ) Spouse ( ) Daughter ( ) Son ( Maureen stone Ow) Pharmacy( ) [facility]: Name of Medications Needing Refill: Adderall 5mg Last Refill Date: 10-16-16 Additional Information: Last / Future Appointment: Disposition: ( ) Send to Pharmacy ( ) Call to Pharmacy ( ) Patient will [employer]ers material [employer] Script ( ) Mail Rx to Patient Source: [facility] POWERCHART Document Id: [id number] NICAL SERVICE SPECIALIST Miscellaneous - Markos Claire APRN, C.NCristine - 06/01/2015 10:55 AM CDT Ambulatory Patient Summary [facility] [address] [place] [id number] Visit Information Name: MUSAALON BARBER [facility] Number: [id number] Current Date: 06/01/2015 10:55:02 Physicians Attending Provider: MARKOS CLAIRE CENTRAL SUPPLY TECHNICIAN SUPERVISOR Primary Care Provider: MARKOS CLAIRE CENTRAL SUPPLY TECHNICIAN SUPERVISOR ALON VIGIL has been given the [...] Take Indications/Special Instructions/Comments/Notes for Patient Medication Changes/Routing cyclobenzaprine (Flexeril 10 mg oral tablet) 1 Tablet(s), Oral, three times a day as needed for Muscle spasm x 10 day(s) New Routed to [facility] [address] [place] [id number] HYDROcodone-acetaminophen ([place] 5 mg-325 mg oral tablet) 1-2 tab(s), Oral, every 8 hours as needed for Pain No more than 4,000mg acetaminophen/24hrs New Routed to [facility] Taking the Following Medications: Medication list as of 06-01-15 10:55 Attention: If you have any medications at [...] of emergency. Electronically Signed By: MARKOS CLAIRE CENTRAL SUPPLY TECHNICIAN SUPERVISOR Signed On:01-JUN-2015 10:54:45 Your Allergies & Intolerances Substance Reaction Symptoms Category Comments penicillins Drug Toradol Drug Latex Other Your Problem List Problem Status Onset Comments No Chronic Problems Active Your Upcoming Appointments Date Time Location Provider 06/06/2015 08:00 [facility] XR Room 1 06/06/2015 08:00 [facility] MR Room 1 06/06/2015 08:45 [facility] MR Room 1 06/06/2015 09:30 [facility] XR Room 1 Attention: Contact your local Clinic if further [...] if you dont have one. Go to [email or web address] and click on Create Your Account. Then, follow the directions to complete the online form. Youll be asked for your [facility] number which you can find at the top of this document. Your Goals/Additional instructions: Source: [facility] POWERCHART Document Id: [id number] Miscellaneous - Markos Claire APRN, C.N.P. - 06/01/2015 10:55 AM CDT Ambulatory Discharge Medication List [facility] [address] [place], [place] [phone] Visit Information Name: ALON VIGIL [facility] Number: [id number] Visit Date: 06/01/2015 10:55:01 Attending Provider: MARKOS CLAIRE CENTRAL SUPPLY TECHNICIAN SUPERVISOR Primary Care Provider: MARKOS CLAIRE CENTRAL SUPPLY TECHNICIAN SUPERVISOR ALON VIGIL has been given the following list of medications: Your Medications It is important to take your medications as directed. Use a pill box or chart to help remind you to take your medications. Please let your doctor or nurse know if you have problems taking your medications. Medication/Strength How to Take Indications/Special Instructions/Comments/Notes for Patient Medication Changes/Routing cyclobenzaprine (Flexeril 10 mg oral tablet) 1 Tablet(s), Oral, three times a day as needed for Muscle spasm x 10 day(s) New Routed to [address] [address] HYDROcodone-acetaminophen ([place] 5 mg-325 mg oral tablet) 1-2 tab(s), Oral, every 8 hours as needed for Pain No more than 4,000mg acetaminophen/24hrs New Routed to [facility] Taking the Following Medications: Medication list as of 06-01-15 10:55 Attention: If you have any medications at [...] of emergency. Electronically Signed By: MARKOS CLAIRE CENTRAL SUPPLY TECHNICIAN SUPERVISOR Signed On:01-JUN-2015 10:54:45 Additional Information: Source: [facility] POWERCHART Document Id: [id number] Miscellaneous - Lorna Rm LPatriciaP.N. 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 Intake/History Adult Machine Applicator Cementer Intake/History Entered On: 06/01/2015 10:05 CDT Performed On: 06/01/2015 10:04 CDT by LORNA RM LPN Intake Peripheral Pulse Rate : 68 /min Systolic Blood Pressure : 116 mmHg Diastolic Blood Pressure : 64 mmHg NIBP Mean : 81 mmHg BP Location : Right upper extremity Blood Pressure Cuff Size : Large LORNA RM LPN - 06/01/2015 10:08 CDT Chief Complaint : f/u test Height : 161 cm(Converted to: 5 ft 3 inch(es), 63 inch(es)) Actual Weight : 68.7 kg(Converted to: 151 lb 7 oz) Dosing Weight Clinic : 68.7 kg Clinic BSA : 1.75 Body Mass Index : 26.5 kg/m2 LORNA RM LPN - 06/01/2015 10:04 CDT General Info Information Given By : Patient Preferred Communication Mode : Verbal Languages : [place] Is Patient Female and 13-50 no hysterectomy : No LORNA RM LPN - 06/01/2015 10:04 CDT Subjective Pain Symptoms : Yes LORNA RM LPN - 06/01/2015 10:04 CDT Pain Scale Pain Scale Verbal 0-10 : Open LORNA RM LPN 06/01/2015 10:04 CDT Pain Pain Assessment Grid Pain 1 Location : Lower back Intensity : 10 Time Pattern : Constant LORNA RM LPN 06/01/2015 10:04 CDT Dependent Habits Tobacco Use/Currently Using : Yes Exposure to Tobacco Smoke : Other: chew Smoking Status : Never smoker LORNA RM LPN - 06/01/2015 10:04 CDT Tobacco Use Grid Type : Chewing tobacco Other Tobacco Frequency : 1 TIN A DAY LORNA RM LPN - 06/01/2015 10:04 CDT Caffeine Use Grid Caffeine Use : Current Type : Coffee Frequency : Occasionally Last Use : FEW DAYS AGO LORNA RM LPN - 06/01/2015 10:04 CDT Recreational Drug Use Grid Drug Use : Current Type : Alcohol Route : Oral Frequency : Daily Amount : 12 BEERS-CASE BEER Age First Used : 10 YRS OLD Length of Sobriety : 1 YEAR Consequences of Use : Legal, Relationships, School Previous Treatment : YES Support Group Experience : AA, ACOA, AL-NON Withdrawal Potential : Yes LORNA RM LPN - 06/01/2015 10:04 CDT Source: [facility] Document Id: [id number] CDT!8 documented in this encounter Plan of Treatment Not on filedocumented as of this encounter Visit Diagnoses Not on filedocumented in this encounter
--- OUTSIDE RECORDS SUMMARY | 2022-08-19 06:58 | XMS_ITS | Encounter Summary ---
:[address] [facility] Address [address] [place] [address] Care Team Providers Name Role Phone Unavailable Primary Care Provider Unavailable Encounter Details Date Type Department Care Team Description 08/08/2015 Hospital Encounter HX NO MAPPING Allen Hilliard M.D. [address] [place], [place] [phone] (Wo rk) Social History [...] you attend jain or Patient refused 2020 jain services? Do [...] - - Height 161 cm (5' 3.39) 08/08/2015 1:02 PM CDT Body Mass Index - - documented in this encounter Plan of Treatment Not on filedocumented as of this encounter Visit Diagnoses Not on filedocumented in this encounter
--- OUTSIDE RECORDS SUMMARY | 2022-08-19 06:58 | XMS_ITS | Encounter Summary ---
:1975 Author Organization [facility] Address [address] [place] [address] Care Team Providers Name Role Phone Markos Claire APRN, C.N.P. Primary Care Provider [phone] Encounter Details Date Type Department Care Team Description 05/23/2016 Historical Ophthalmology [facility] Anival Gallegos M.D. [address] [place], [place] [phone] (Wo rk) Social History [...] you attend christianity or Patient refused 2020 sikhism services? Do [...] encounter Progress Notes Anival Gallegos M.D. - 05/23/2016 9:14 AM CDT Eye General CHIEF COMPLAINT CE HISTORY OF PRESENT ILLNESS Pt states vision really blurry and bad, saw Dr. Mejia in April. complains of dizzy and balance issues. night vision worse but also upclose ROS all systems WNL IMPRESSION / REPORT / PLAN #1 Myopia has increased difficulty with dil at night from myopia mrx bifocal for driving ok for readers 1.25 for other activities RTC 2 to 3 years DIAGNOSIS #1 Myopia CDM Reports - EYEGEN Id: [id number] Status: Fnl documented in this encounter Plan of Treatment Not on filedocumented as of this encounter Visit Diagnoses Not on filedocumented in this encounter Care Teams Company Accountant Relationship Specialty Start Date End Date Markos Claire APRN, C.N.P. PCP - General 03/26/17 02/27/[address] [address] documented as of this encounter
[2022-08-19 06:59] LABS: Blood Urea Nitrogen* 11 mg/dL (5-24); Calcium* 9.1 mg/dL (8.4-10.6); Carbon Dioxide* 28 mmol/L (20-32); Glucose* 91 mg/dL (60-115)
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
--- OUTSIDE RECORDS SUMMARY | 2022-08-19 06:59 | XMS_ITS | Encounter Summary ---
:1975 Author Organization [facility] Address [address] [place] [address] Care Team Providers Name Role Phone Unavailable Primary Care Provider Unavailable Encounter Details Date Type Department Care Team Description 12/07/2014 Hospital Encounter HX NO MAPPING Jg Osman M.D. [address] [place], [place] [phone] (Wo rk) Social History [...] you attend sabianist or Patient refused 2020 hoahaoism services? Do [...] - - Height 161 cm (5' 3.39) 12/07/2014 7:06 AM PRODUCTION WELDER Body Mass Index - - documented in this encounter Plan of Treatment Not on filedocumented as of this encounter Procedures Procedure Name Priority Date/Time Associated Diagnosis Comme nts CT ABDOMEN KIDNEY Routine 12/07/2014 7:52 AM Resu lts for this STONE WITHOUT IV PRODUCTION WELDER procedure a re in CONTRAST the results section. documented in this encounter Results CT Abdomen Kidney Stone without IV Contrast (12/07/2014 7:52 AM PRODUCTION WELDER) Anatomical Region Laterality Modality Abdomen, Pelvis Computed Tomography Specimen (Source) Anatomical Collection Method Collection Time Re ceived Time Location / / Volume Laterality 12/07/2014 7:52 AM PRODUCTION WELDER Impressions 12/07/2014 8:17 AM PRODUCTION WELDER 1. ??No renal stones. Narrative 12/07/2014 8:17 AM PRODUCTION WELDER EXAM: CT Stone Protocol INDICATION: right sided flank pain, Hx o f urinary calculi AGE: 39 years-old COMPARISON: 09/21/14 TECHNIQUE: Stone protocol. No IV contras t. FINDINGS: No stones in bilateral kidneys , ureters, or bladder. No hydronephrosis or hydroureter. Calcified appendicolith without appendiceal inflammation. Duodenal diver ticulum. No free fluid or free air. Otherwise negative. Procedure Note Kanu Agrawal M.D. / ProviderJean Claude M.D. - 02/18/2017 EXAM: CT Stone Protocol INDICATION: right sided flank pain, Hx o f urinary calculi AGE: 39 years-old COMPARISON: 09/21/14 TECHNIQUE: Stone protocol. No IV contras t. FINDINGS: No stones in bilateral kidneys , ureters, or bladder. No hydronephrosis or hydroureter. Calcified appendicolith without appendiceal inflammation. Duodenal diver ticulum. No free fluid or free air. Otherwise negative. IMPRESSION: 1. No renal stones. Kalie Champagne R.T.(R)(CT), R.T.(R) IMG CT PROCEDURES documented in this encounter Visit Diagnoses Not on filedocumented in this encounter
--- OUTSIDE RECORDS SUMMARY | 2022-08-19 06:59 | XMS_ITS | Encounter Summary ---
:1975 Author Organization [facility] Address [address] [place] [address] Care Team Providers Name Role Phone Unavailable Primary Care Provider Unavailable Encounter Details Date Type Department Care Team Description 12/14/2014 Hospital Encounter HX [facility] INTERNMED Markos Simpson, ELA, C.N.P. [address] [place] [address] (Wo rk) Social History Tobacco [...] you attend mormonism or Patient refused 2020 voodoo services? Do [...] Sign Reading Time Taken Comments Blood Pressure 108/80 12/14/2014 1:23 PM HOME THERAPY TEACHER Pulse 72 12/14/2014 1:23 PM HOME THERAPY TEACHER Temperature - - Respiratory Rate 20 12/14/2014 1:23 PM HOME THERAPY TEACHER Oxygen Saturation - - Inhaled Oxygen Concentration - - Weight 70.7 kg (155 lb 13.8 oz) 12/14/2014 1:23 PM HOME THERAPY TEACHER Height 161 cm (5' 3.39) 12/14/2014 1:23 PM HOME THERAPY TEACHER Body Mass Index 27.27 12/14/2014 1:23 PM HOME THERAPY TEACHER documented in this encounter Progress Notes Markos Simpson, ELA, C.N.P. - 12/14/2014 1:13 PM CST [id number] CHIEF COMPLAINT/REASON FOR VISIT Back pain. HISTORY OF PRESENT ILLNESS Alon is seen today for right-sided flank and back pain. He has been in to the emergency room 2 times in the last few months for this same problem. Both times there was concern for kidney stones. He has had 2 CT scans, one on September 21, 2014, and one on December 07, 2014, which did not show any evidence of renal system stones. In addition to this, he had a normal urinalysis, normal lipase, normal comp metabolic panel, normal CBC. Pain is worse with moving, bending, lifting, twisting, turning. He reports that it has really been going on since the end of last summer. Does not seem to be improving much. 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 He reports that he has not had any history of back problems in the past. He was given some hydrocodone to use from the emergency room. He feels that it is helpful for his pain but is not long lasting. He has alsobeen taking some ibuprofen. He reports he has not been seeing anybody else for a condition like thisin the past. He does have some concern that this could be gallbladder pain. This is despite the longduration, constant pain that has been going on for months that is not necessarily exacerbated by food intake. When asked to point to the location of the pain he always returns to pointing to his lower back. MEDICATIONS None. ALLERGIES Latex. Penicillin. Toradol. VITAL SIGNS Temperature 36, pulse 72, respirations 20, blood pressure 108/80. Weight 70.7 kg. PHYSICAL EXAMINATION GENERAL: Well-developed male, no acute distress. Alert, oriented x3. ABDOMEN: Soft, nontender, nondistended. No palpable organomegaly. No rebound tenderness. No guarding. Negative Mishra sign. MUSCULOSKELETAL: Positive straight leg raise test bilaterally right greater than left. With the patient lying in the supine position, putting his legs through range of motion causes pain in the lower back and patient again repeatedly reaches and grabs for the lower back. He has no obvious abnormalities to palpation of the bony structures of the lower thoracic and lumbar spine. Minimal paraspinous muscle tenderness. IMPRESSION/REPORT/PLAN Back pain, probable muscular strain. He is not having a lot of radicular symptoms so I do not think that there is much nerve involvement here. He has no muscular weakness or dysfunction neuromuscularly. We will get an x-ray on his back given that these symptoms have been going on for as long as they have. Recommend light therapy, recommend being off of work until December 25, 2014. I have refilled his Hamburg and I have added Flexeril to this regimen. If he does not feel that he is able return to work without restrictions on ThursdayDecember 25 then he needs to be seen back in the clinic for followup. We could certainly put him on light duty; however, with his job as [employer] there is likely little work to be done. I also discussed with him that if he continues to struggle with back pain exacerbated by work he may need to start looking for alternative employment. We also discussed physical therapy, but given that he has no health insurance it is unlikely that he would financially be able to do this, which also financially makes an MRI very difficult to pursue should he require it in the future. If he has complete resolution of his pain with the conservative management mentioned above, then I recommend continued core strengthening meterman especially while he is doing this current type of employment. Markos Simpson C.N.P./kobe Electronically Signed By: MARKOS SIMPSON NP On: 12/15/2014 04:31 PM Source: [facility] MHSDOLBEYNFRAN Document Id: [id number] THERAPY TEACHER documented in this encounter Miscellaneous Notes Miscellaneous - Markos Simpson APRN, C.N.P. - 12/14/2014 2:34 PM CST Ambulatory Patient Summary [facility] [address] [place] [id number] Visit Information Name: ALON VIGIL [facility] Number: [id number] Current Date: 12/14/2014 14:34:48 Physicians Attending Provider: MARKOS SIMPSON HEAD WAITER/WAITRESS Primary Care Provider: PCPRAFAELON ALON GUTIERREZ has been given the following list of [...] spasm x 10 day(s) New Routed to [facility] [address] [place] [address] HYDROcodone-acetaminophen (Hamburg 5 mg-325 mg oral tablet) 2 Tablet(s), Oral, every 6 hours as neededfor Pain No more than 4,000mg acetaminophen/24hrs This is a CHANGE [facility] Taking the Following Medications: Medication list as of 12-14-14 14:34 Attention: If you have any medications at home that are not on this list, DO NOT take them until youcontact your provider for clarification. Give a copy of your medication list to your primary care provider. Update your medication list any time medications or doses are changed and carry your medication list at all times in case of emergency. Electronically Signed By: MARKOS SIMPSON HEAD WAITER/WAITRESS Signed On:14-DEC-2014 14:34:43 Your Allergies & Intolerances Substance Reaction Symptoms Category Comments penicillins Drug Toradol Drug Latex Other Your Problem List Problem Status Onset Comments No Chronic Problems Active Your Upcoming Appointments Date Time Location Provider No Appointments found Attention: Contact your local Clinic if further appointment detail needed. Your Goals/Additional instructions: Source: [facility] POWERCHART Document Id: [id number] THERAPY TEACHER Miscellaneous - Markos Simpson APRN, C.N.P. - 12/14/2014 2:34 PM CST Ambulatory Discharge Medication List [facility] [address] [place] [id number] Visit Information Name: MUAS ALON BRENDA [facility] Number: [id number] Visit Date: 12/14/2014 14:34:47 Attending Provider: MARKOS SIMPSON HEAD WAITER/WAITRESS Primary Care Provider: PCP, ALON MENJIVAR has been given the following list of [...] spasm x 10 day(s) New Routed to [facility] [address] [place] [id number] HYDROcodone-acetaminophen (Hamburg 5 mg-325 mg oral tablet) 2 Tablet(s), Oral, every 6 hours as neededfor Pain No more than 4,000mg acetaminophen/24hrs This is a CHANGE Routed to [facility] Stop Taking the Following Medications: Medication list as of 12-14-14 14:34 Attention: If you have any medications at home that are not on this list, DO NOT take them until youcontact your provider for clarification. Give a copy of your medication list to your primary care provider. Update your medication list any time medications or doses are changed and carry your medication list at all times in case of emergency. Electronically Signed By: MARKOS SIMPSON HEAD WAITER/WAITRESS Signed On:14-DEC-2014 14:34:43 Additional Information: Source: [facility] POWERCHART Document Id: [id number] THERAPY TEACHER Miscellaneous - Markos Simpson APRN, C.N.P. - 12/14/2014 2:03 PM CST Work Excuse 14 December 2014 [facility] [address] [id number] [facility] You were examined in my office on: 12/14/14 Reason for work excuse: Medical Illness ( _ ) Yes ( _ ) No Injury ( x ) Yes ( _ ) No Is excused from all work: ( x ) Yes ( _ ) No Limitations apply until: 12/25/14 Return to Work date: May return on 12/25/14 without restrictions. Sincerely, MARKSO SIMPSON [address] [place] [id number] Electronic Signature Electronically Signed By: MARKOS SIMPSON HEAD WAITER/WAITRESS On: 14 December 2014 This document has images extracted. Source: [facility] POWERCHART Document Id: [id number] Miscellaneous - Lorna Rm L.PPatriciaNPatricia - 12/14/2014 1:23 PM CST Adult Upkeep Worker Intake/History Adult Upkeep Worker Intake/History Entered On: 12/14/2014 13:27 HOME THERAPY TEACHER Performed On: 12/14/2014 13:23 HOME THERAPY TEACHER by LORNA RM Intake Chief Complaint : Pain right side since this summer Pain right lower back goes down right leg Temperature Core : 36 DegC(Converted to: 96.8 DegF) (LOW) Peripheral Pulse Rate : 72 /min Respiratory Rate : 20 /min Systolic Blood Pressure : 108 mmHg Diastolic Blood Pressure : 80 mmHg NIBP Mean : 89 mmHg BP Location : Right upper extremity Blood Pressure Cuff Size : Regular Height : 161 cm(Converted to: 5 ft 3 inch(es), 63 inch(es)) Actual Weight : 70.7 kg(Converted to: 155 lb 14 oz) Dosing Weight Clinic : 70.7 kg Clinic BSA : 1.78 Body Mass Index : 27.28 kg/m2 LORNA RM 12/14/2014 13:23 HOME THERAPY TEACHER General Info Information Given By : Patient Preferred Communication Mode : Verbal Languages : Austrian Is Patient Female and 13-50 no hysterectomy : No LORNA RM 12/14/2014 13:23 HOME THERAPY TEACHER Subjective Pain Symptoms : Yes LORNA RM 12/14/2014 13:23 HOME THERAPY TEACHER Pain Scale Pain Scale Verbal 0-10 : Open LORNA RM 12/14/2014 13:23 HOME THERAPY TEACHER Pain Pain Assessment Grid Pain 1 Pain 2 Location : Abdomen Lower back Laterality : Right Right Intensity : 10 10 Time Pattern : Constant Constant LORNA RM 12/14/2014 13:23 HOME THERAPY TEACHER LORNA RM 12/14/2014 13:23 HOME THERAPY TEACHER Dependent Habits Tobacco Use/Currently Using : Yes Exposure to Tobacco Smoke : Other: chew Smoking Status : Never smoker LORNA RM 12/14/2014 13:23 HOME THERAPY TEACHER Tobacco Use Grid Type : Chewing tobacco Other Tobacco Frequency : 1 TIN A DAY Last Use : 04/17/14 LORNA RM 12/14/2014 13:23 HOME THERAPY TEACHER Caffeine Use Grid Caffeine Use : Current Type : Coffee Frequency : Occasionally Last Use : FEW DAYS AGO LORNA RM 12/14/2014 13:23 HOME THERAPY TEACHER Recreational Drug Use Grid Drug Use : Current Type : Alcohol Route : Oral Frequency : Daily Amount : 12 BEERS-CASE BEER Last Use : 04/17/14 Age First Used : 10 YRS OLD Length of Sobriety : 1 YEAR Consequences of Use : Legal, Relationships, School Previous Treatment : YES Support Group Experience : AA, ACOA, AL-NON Withdrawal Potential : Yes LORNA RM 12/14/2014 13:23 HOME THERAPY TEACHER ID Screen Travel Within Last 21 Days : No Contact with someone with Ebola : No LORNA RM 12/14/2014 13:23 HOME THERAPY TEACHER [facility] Document Id: [id number] HOME THERAPY TEACHER!69 THERAPY TEACHER Miscellaneous - Lorna Rm L.PKate - 12/14/2014 1:21 PM CST Health Assessment Health Assessment Entered On: 12/14/2014 13:22 HOME THERAPY TEACHER Performed On: 12/14/2014 13:21 HOME THERAPY TEACHER by LORNA RM Health Assessment Complete Health Assessment Complete or Modified : Annual Health Assessment Annual Health Assessment Completed : Yes LORNA RM - 12/14/2014 13:21 HOME THERAPY TEACHER Nutrition Nutrition Risk Factors by History Adult : None LORNA RM - 12/14/2014 13:21 HOME THERAPY TEACHER Functional Current Daily Living Assistance : None LORNA RM - 12/14/2014 13:21 HOME THERAPY TEACHER Dependent Habits Tobacco Use/Currently Using : Yes Exposure to Tobacco Smoke : Other: chew Smoking Status : Never smoker LORNA RM 12/14/2014 13:21 HOME THERAPY TEACHER Tobacco Use Grid Type : Chewing tobacco Other Tobacco Frequency : 1 TIN A DAY Last Use : 04/17/14 LORNA RM - 12/14/2014 13:21 HOME THERAPY TEACHER Caffeine Use Grid Caffeine Use : Current Type : Coffee Frequency : Occasionally Last Use : FEW DAYS AGO LORNA RM 12/14/2014 13:21 HOME THERAPY TEACHER Recreational Drug Use Grid Drug Use : Current Type : Alcohol Route : Oral Frequency : Daily Amount : 12 BEERS-CASE BEER Last Use : 04/17/14 Age First Used : 10 YRS OLD Length of Sobriety : 1 YEAR Consequences of Use : Legal, Relationships, School Previous Treatment : YES Support Group Experience : AA, ACTAMARA, AL-NON Withdrawal Potential : Yes LORNA RM - 12/14/2014 13:21 HOME THERAPY TEACHER Psychosocial Domestic Abuse Concerns : None Episcopal Preference : LORNA Yoder 12/14/2014 13:21 HOME THERAPY TEACHER Advance Directive Advanced Directives : No Advance Directive Additional Information : No Guardianship : No LORNA RM 12/14/2014 13:21 HOME THERAPY TEACHER Educ Needs Learning Style Preference Adult Grid Patient : Verbal explanation Family : Verbal explanation LORNA RM 12/14/2014 13:21 HOME THERAPY TEACHER Source: [facility] POWERCHART Document Id: [id number] HOME THERAPY TEACHER!48 THERAPY TEACHER documented in this encounter Plan of Treatment Not on filedocumented as of this encounter Visit Diagnoses Not on filedocumented in this encounter
--- OUTSIDE RECORDS SUMMARY | 2022-08-19 06:59 | XMS_ITS | Encounter Summary ---
:1975 Author Organization [facility] Address [address] [place] [address] Care Team Providers Name Role Phone Unavailable Primary Care Provider Unavailable Encounter Details Date Type Department Care Team Description 03/22/2014 Hospital Encounter HX NO MAPPING Jennifer Thayer M.D. [address] [place], [place] [phone] (Wo rk) Social History [...] you attend jew or Patient refused 2020 confucianism services? Do [...]
--- OUTSIDE RECORDS SUMMARY | 2022-08-19 06:59 | XMS_ITS | Encounter Summary ---
:1975 Author Organization [facility] Address [address] [place] [address] Care Team Providers Name Role Phone Unavailable Primary Care Provider Unavailable Encounter Details Date Type Department Care Team Description 04/17/2014 Hospital Encounter HX NO MAPPING Ranjana Prieto M.D. [address] [place], [place] [phone] (Wo rk) Social History [...] or relatives? How often do you attend presybeterian or Patient refused 2020 voodoo services? Do you belong to any clubs or No 07/17/2021 organizations such as presybeterian groups, unions, fraternal or athletic groups, or [...] minutes do you engage in exercise at is 60 min 07/17/2021 level? Stress Answer [...]
--- OUTSIDE RECORDS SUMMARY | 2022-08-19 06:59 | XMS_ITS | Encounter Summary ---
:1975 Author Organization [facility] Address [address] [place] [address] Care Team Providers Name Role Phone Unavailable Primary Care Provider Unavailable Encounter Details Date Type Department Care Team Description 04/17/2014 Hospital Encounter HX NO MAPPING Allen Hilliard M.D. [address] [place], [place] [phone] (Wo rk) Social History [...] you attend confucianist or Patient refused 2020 scientologist services? Do [...]
--- OUTSIDE RECORDS SUMMARY | 2022-08-19 06:59 | XMS_ITS | Encounter Summary ---
:1975 Author Organization [facility] Address [address] [place] [address] Care Team Providers Name Role Phone Unavailable Primary Care Provider Unavailable Encounter Details Date Type Department Care Team Description 05/22/2014 Hospital Encounter HX NO MAPPING Tan Gaston M.D. [address] [place], [place] [phone] (Wo rk) Social History [...] you attend yazdanism or Patient refused 2020 muslim services? Do [...] Concentration - - Weight - - Height 168 cm (5' 6.14) 05/22/2014 11:17 AM CDT Body Mass Index - - documented in this encounter Plan of Treatment Not on filedocumented as of this encounter Procedures Procedure Name Priority Date/Time Associated Diagnosis Comme nts DX SHOULDER LEFT 2+ Routine 05/22/2014 12:06 PM R esults for this VIEWS CDT procedure are i n the results section. documented in this encounter Results DX Shoulder Left 2+ Views (05/22/2014 12:06 PM CDT) Anatomical Region Laterality Modality Upper Extremity, Shoulder Left Radiographic I maging Specimen (Source) Anatomical Collection Method Collection Time Re ceived Time Location / / Volume Laterality 05/22/2014 12:06 PM CDT Impressions 05/22/2014 12:25 PM CDT Negative. Narrative 05/22/2014 12:25 PM CDT EXAM: XR Shoulder Left 2 or more views INDICATION: lt shoulder pain COMPARISON: None. FINDINGS: Normal mineralization and alig nment. Procedure Note Clyde Schroeder M.D. / Provider, Charlie pena M.D. - 02/21/2017 EXAM: XR Shoulder Left 2 or more views INDICATION: lt shoulder pain COMPARISON: None. FINDINGS: Normal mineralization and alig nment. IMPRESSION: Negative. Shona Shaikh(R)(CT), RPatriciaTPatricia(R) IMG DIAGNOSTIC IM AGING PROCEDURES documented in this encounter Visit Diagnoses Not on filedocumented in this encounter
--- OUTSIDE RECORDS SUMMARY | 2022-08-19 06:59 | XMS_ITS | Encounter Summary ---
:1975 Author Organization [facility] Address [address] [place] [address] Care Team Providers Name Role Phone Unavailable Primary Care Provider Unavailable Encounter Details Date Type Department Care Team Description 07/20/2014 Hospital Encounter HX NO MAPPING Hasmukh Pérez M.D. [address] [place] [address] (Wo rk) Social History Tobacco [...] you attend synagogue or Patient refused 2020 buddhism services? Do [...] - - Height 161 cm (5' 3.39) 07/20/2014 11:55 PM CDT Body Mass Index - - documented in this encounter Plan of Treatment Not on filedocumented as of this encounter Procedures Procedure Name Priority Date/Time Associated Diagnosis Comme nts CT HEAD WITHOUT IV Routine 07/21/2014 12:45 AM Re sults for this CONTRAST CDT procedure are i n the results section. documented in this encounter Results CT Head without IV Contrast (07/21/2014 12:45 AM CDT) Anatomical Region Laterality Modality Head N/A Computed Tomography Specimen (Source) Anatomical Collection Method Collection Time Re ceived Time Location / / Volume Laterality 07/21/2014 12:45 AM CDT Impressions 07/21/2014 7:30 AM CDT No intracranial hemorrhage or mass effect. Narrative 07/21/2014 7:30 AM CDT EXAM: CT Head w/o contrast INDICATION: dizzy COMPARISON: None. FINDINGS: Calvarium:Intact Extra axial fluid collectionno: Acute Intracranial Hemorrhage:No Mass effect:No Midline shift:Normal Ventricles:Normal size Relative attenuation of finn and white m ater:Relationship preserved Sulcal pattern:Not enlarged Acute large vessel infarct:No Abnormal calcification in brain:No Herniation:No Paranasal Sinuses:Clear Mastoid air cells:Clear. A temporal bone CT would be suggested, if the temporal bone is thought to be the s ource of dizziness and thought to be indicated. Base of skull:Negative Procedure Note Clyde Schroeder M.D. / ProviderCharlie M.D. - 02/21/2017 EXAM: CT Head w/o contrast INDICATION: dizzy COMPARISON: None. FINDINGS: Calvarium:Intact Extra axial fluid collectionno: Acute Intracranial Hemorrhage:No Mass effect:No Midline shift:Normal Ventricles:Normal size Relative attenuation of finn and white m ater:Relationship preserved Sulcal pattern:Not enlarged Acute large vessel infarct:No Abnormal calcification in brain:No Herniation:No Paranasal Sinuses:Clear Mastoid air cells:Clear. A temporal bone CT would be suggested, if the temporal bone is thought to be the s ource of dizziness and thought to be indicated. Base of skull:Negative IMPRESSION: No intracranial hemorrhage o r mass effect. Ann Swan R.T.(R)(CT), R.T.(R) IMG CT PROCEDUR ES documented in this encounter Visit Diagnoses Not on filedocumented in this encounter
--- OUTSIDE RECORDS SUMMARY | 2022-08-19 06:59 | XMS_ITS | Encounter Summary ---
:1975 Author Organization [facility] Address [address] [place] [address] Care Team Providers Name Role Phone Unavailable Primary Care Provider Unavailable Encounter Details Date Type Department Care Team Description 05/22/2014 Hospital Encounter HX NO MAPPING Tan Gaston M.D. [address] [place], [place] [phone] (Wo rk) Social History [...] you attend mosque or Patient refused 2020 yarsanism services? Do [...]
--- OUTSIDE RECORDS SUMMARY | 2022-08-19 06:59 | XMS_ITS | Encounter Summary ---
:1975 Author Organization [facility] Address [address] [place] [address] Care Team Providers Name Role Phone Unavailable Primary Care Provider Unavailable Encounter Details Date Type Department Care Team Description 03/23/2015 Hospital Encounter HX NO MAPPING Jennifer Thayer M.D. [address] [place], [place] [phone] (Wo rk) Social History [...] you attend synagogue or Patient refused 2020 mosque services? Do [...] - - Height 161 cm (5' 3.39) 03/23/2015 5:58 PM CDT Body Mass Index - - documented in this encounter Plan of Treatment Not on filedocumented as of this encounter Visit Diagnoses Not on filedocumented in this encounter
--- OUTSIDE RECORDS SUMMARY | 2022-08-19 06:59 | XMS_ITS | Encounter Summary ---
:1975 Author Organization [facility] Address [address] [place] [address] Care Team Providers Name Role Phone Unavailable Primary Care Provider Unavailable Encounter Details Date Type Department Care Team Description 12/07/2014 Hospital Encounter HX NO MAPPING Jg Osman M.D. [address] [place], [place] [phone] (Wo rk) Social History [...] you attend sabianist or Patient refused 2020 church services? Do [...]
--- OUTSIDE RECORDS SUMMARY | 2022-08-19 06:59 | XMS_ITS | Encounter Summary ---
:1975 Author Organization [facility] Address [address] [place] [address] Care Team Providers Name Role Phone Unavailable Primary Care Provider Unavailable Encounter Details Date Type Department Care Team Description 09/27/2012 Hospital Encounter HX NO MAPPING Florentino Fonseca M. D. Social History Tobacco Use Types Packs/Day Years [...] you attend congregational or Patient refused 2020 episcopalian services? Do [...] Priority Date/Time Associated Diagnosis Comme nts DX ANKLE RIGHT 3+ Routine 09/27/2012 4:44 PM Resu lts for this VIEWS BUSINESS ANALYTICS FACULTY MEMBER procedure are i n the results section. documented in this encounter Results DX Ankle Right 3+ Views (09/27/2012 4:44 PM BUSINESS ANALYTICS FACULTY MEMBER) Anatomical Region Laterality Modality Lower Extremity, Ankle Right Radiographic Imag ing Specimen (Source) Anatomical Collection Method Collection Time Re ceived Time Location / / Volume Laterality 09/27/2012 4:44 PM BUSINESS ANALYTICS FACULTY MEMBER Impressions 09/27/2012 4:48 PM BUSINESS ANALYTICS FACULTY MEMBER No acute bony findings. Mild lateral soft tissue swelling. Narrative 09/27/2012 4:48 PM BUSINESS ANALYTICS FACULTY MEMBER HISTORY: Right ankle injury, pain. FINDINGS: There is no x-ray evidence of an acute displaced fracture, dislocation, or concerning lytic/blastic osseous lesion. Joint spaces appear to be preserved. There is some mi ld soft tissue swelling over the lateral malleolus. Procedure Note Saw Kerr M.D. / Provider, James snow M.D. - 03/04/2017 HISTORY: Right ankle injury, pain. FINDINGS: There is no x-ray evidence of an acute displaced fracture, dislocation, or concerning lytic/blastic osseous lesion. Joint spaces appear to be preserved. There is some mi ld soft tissue swelling over the lateral malleolus. IMPRESSION: No acute bony findings. Mild lateral soft tissue swelling. Katy Shaikh(Vadim)(CT), R.TPatricia(R) IMG DIAGNOSTIC IMAGING PROCEDURES documented in this encounter Visit Diagnoses Not on filedocumented in this encounter
--- OUTSIDE RECORDS SUMMARY | 2022-08-19 06:59 | XMS_ITS | Encounter Summary ---
:1975 Author Organization [facility] Address [address] [place] [address] Care Team Providers Name Role Phone Unavailable Primary Care Provider Unavailable Encounter Details Date Type Department Care Team Description 04/17/2014 - Hospital Encounter [facility]X [facility] [place], 04/21/2014 Watson Cm Social History Tobacco Use Types Packs/Day Years [...] you attend christianity or Patient refused 2020 anabaptist services? Do [...] Sign Reading Time Taken Comments Blood Pressure 128/80 04/17/2014 11:59 PM CDT Pulse 88 04/17/2014 11:59 PM CDT Temperature - - Respiratory Rate 16 04/17/2014 11:59 PM CDT Oxygen Saturation - - Inhaled Oxygen Concentration - - Weight - - Height 168 cm (5' 6.14) 04/17/2014 11:59 PM CDT Body Mass Index - - documented in this encounter Plan of Treatment Not on filedocumented as of this encounter Visit Diagnoses Not on filedocumented in this encounter
--- OUTSIDE RECORDS SUMMARY | 2022-08-19 06:59 | XMS_ITS | Encounter Summary ---
:1975 Author Organization [facility] Address [address] [place] [address] Care Team Providers Name Role Phone Unavailable Primary Care Provider Unavailable Encounter Details Date Type Department Care Team Description 03/22/2014 Hospital Encounter HX NO MAPPING Allen Hilliard M.D. [address] [place], [place] [phone] (Wo rk) Social History [...] you attend mosque or Patient refused 2020 buddhist services? Do [...]
--- OUTSIDE RECORDS SUMMARY | 2022-08-19 06:59 | XMS_ITS | Encounter Summary ---
:1975 Author Organization [facility] Address [address] [place] [address] Care Team Providers Name Role Phone Unavailable Primary Care Provider Unavailable Encounter Details Date Type Department Care Team Description 09/21/2014 Hospital Encounter HX NO MAPPING Allen Hilliard M.D. [address] [place], [place] [phone] (Wo rk) Social History [...] you attend nondenominational or Patient refused 2020 islam services? Do [...] - - Height 161 cm (5' 3.39) 09/21/2014 10:27 PM VALET MANAGER Body Mass Index - - documented in this encounter Plan of Treatment Not on filedocumented as of this encounter Procedures Procedure Name Priority Date/Time Associated Diagnosis Comme nts CT ABDOMEN KIDNEY Routine 09/21/2014 11:02 PM Res ults for this STONE WITHOUT IV VALET MANAGER procedure a re in CONTRAST the results section. documented in this encounter Results CT Abdomen Kidney Stone without IV Contrast (09/21/2014 11:02 PM VALET MANAGER) Anatomical Region Laterality Modality Abdomen, Pelvis Computed Tomography Specimen (Source) Anatomical Collection Method Collection Time Re ceived Time Location / / Volume Laterality 09/21/2014 11:02 PM VALET MANAGER Impressions 09/22/2014 6:56 AM VALET MANAGER 1. Appendicolith, no appreciable finding s of acute appendicitis. 2. No appreciable renal or ureteral calc brittany. Additional findings and discussion as no madi above Narrative 09/22/2014 6:56 AM VALET MANAGER EXAM: ??CT Stone Protocol AGE: ??38 years old. GENDER: ??Male. INDICATION: ??flank pain,eval for stone disease; laterality not otherwise specified. COMPARISON: ??None. FINDINGS: ??Preliminary report generated by virtual radiology. CT stone protocol. Sensitivity for evalu ation of soft tissues and organs is limited without benefit of IV contrast. LUNG BASES: Visualized lung base are connor ar. ABDOMEN AND PELVIS: No renal or ureteral calculi. Several small calcified pelvic phlebolit hs. Small appendicolith within the distal ap pendix, normal caliber appendix. No evidence of appendicitis. No evidence of intestinal or colonic obs truction. No appreciable free intraperitoneal air. Moderate quantity of stool throughout co larisa and within the rectal vault. Full urinary bladder. Procedure Note Noah Mcdonald M.D. / ProviderCharlie M.D. - 02/21/2017 EXAM: CT Stone Protocol AGE: [age] years old. GENDER: Male. INDICATION: flank pain,eval for stone di sease; laterality not otherwise specified. COMPARISON: None. FINDINGS: Preliminary report generated b y virtual radiology. CT stone protocol. Sensitivity for evalu ation of soft tissues and organs is limited without benefit of IV contrast. LUNG BASES: Visualized lung base are connor ar. ABDOMEN AND PELVIS: No renal or ureteral calculi. Several small calcified pelvic phlebolit hs. Small appendicolith within the distal ap pendix, normal caliber appendix. No evidence of appendicitis. No evidence of intestinal or colonic obs truction. No appreciable free intraperitoneal air. Moderate quantity of stool throughout co larisa and within the rectal vault. Full urinary bladder. IMPRESSION: 1. Appendicolith, no appreciable finding s of acute appendicitis. 2. No appreciable renal or ureteral calc brittany. Additional findings and discussion as no madi above Ann Swan R.T.(R)(CT), R.T.(R) IMG CT PROCEDUR ES documented in this encounter Visit Diagnoses Not on filedocumented in this encounter
--- OUTSIDE RECORDS SUMMARY | 2022-08-19 06:59 | XMS_ITS | Encounter Summary ---
:1975 Author Organization [facility] Address [address] [place] [address] Care Team Providers Name Role Phone Unavailable Primary Care Provider Unavailable Encounter Details Date Type Department Care Team Description 09/21/2014 Hospital Encounter HX NO MAPPING Jg Osman M.D. [address] [place], [place] [phone] (Wo rk) Social History [...] you attend mandaen or Patient refused 2020 yazidi services? Do [...]
--- OUTSIDE RECORDS SUMMARY | 2022-08-19 06:59 | XMS_ITS | Encounter Summary ---
:1975 Author Organization [facility] Address [address] [place] [address] Care Team Providers Name Role Phone Unavailable Primary Care Provider Unavailable Encounter Details Date Type Department Care Team Description 07/20/2014 Hospital Encounter HX NO MAPPING Hasmukh Pérez M.D. [address] [place] [address] (Wo rk) Social History Tobacco [...] you attend worship or Patient refused 2020 yarsani services? Do [...]
--- OUTSIDE RECORDS SUMMARY | 2022-08-19 06:59 | XMS_ITS | Encounter Summary ---
:1975 Author Organization [facility] Address [address] [place] [address] Care Team Providers Name Role Phone Unavailable Primary Care Provider Unavailable Encounter Details Date Type Department Care Team Description 06/26/2014 Hospital Encounter HX [facility] Mal Bello, P.A.-C. [address] [place], [place] [address] Social History Tobacco Use Types Packs/Day Years [...] you attend taoist or Patient refused 2020 baptist services? Do [...] Sign Reading Time Taken Comments Blood Pressure 144/82 06/26/2014 3:21 PM CDT Pulse - - Temperature - - Respiratory Rate - - Oxygen Saturation - - Inhaled Oxygen Concentration - - Weight 69.4 kg (153 lb) 06/26/2014 3:21 PM CDT Height 161 cm (5' 3.39) 06/26/2014 3:21 PM CDT Body Mass Index 26.77 06/26/2014 3:21 PM CDT documented in this encounter Progress Notes Ana Muñoz O.P.A.-C. - 06/26/2014 3:11 PM CDT [id number] CHIEF COMPLAINT/REASON FOR VISIT Mr. Vigil presents to clinic today under a followup visit secondary to emergency room visit on05/22/2014 secondary to a left shoulder injury sustained at the workforce. As of now, there has beenno workman's compensation paperwork filed; however, he is going to file workman's compensation at a later date. The patient states that while working he felt a sharp pain in his left shoulder, presented to the emergency department, and it showed no acute pathology. The patient presents today stating that x1 day ago, he felt the same sharp pain in his left shoulder and he states that the pain has increased and it has been persistent since. He has been applying ice and taking nonsteroidal anti-inflamma tories to relieve the pain. The patient denies any further injury or trauma to the left shoulder. The patient states that the pain increases with the use of the left upper extremity, decreases with rest. MEDICATIONS Per electronic medical record without changes, dated 06/26/2014. ALLERGIES Per electronic medical record without changes, dated 06/26/2014. VITAL SIGNS Please see electronic medical record and nursing notes, dated 06/26/2014. PHYSICAL EXAMINATION GENERAL: Mr. Vigil is a 38-year-old male, in no acute distress. Ambulatory and weightbearing without limp. Oriented x3. EXTREMITIES: Left shoulder presents without edema, erythema, ecchymosis, or effusion. There is mild tenderness to palpation to the glenohumeral joint. Extension and flexion without resistance elicited pain and tenderness. I did stop the physical examination after this secondary to decrease in range ofmotion and increasing in pain. DIAGNOSTICS X-rays of May,, reviewed, results are as above. IMPRESSION/REPORT/PLAN Right shoulder pain/injury. PLAN: Did discuss treatment options with the patient and upon approval as the patient is filing for workman's compensation, upon approval for workman's compensation, we will get an MRI. We did put him off work until MRI has been approved. I did prescribe tramadol 50 mg 1 by mouth every 6 hours. Continue taking the Aleve. Continue icing it, sling, and follow up post MRI results. The patient was very satisfied with accessibility in the clinic and also clinical care. All questions were answered. Ana Muñoz P.A.-C./kobe Electronically Signed By: ANA MUÑOZ On: 06/27/2014 12:07 PM Source: [facility] MHSDOLBEYNONRADSYS Document Id: [id number] documented in this encounter Miscellaneous Notes Miscellaneous - Tristen Rouse, L.P.N. - 07/03/2014 9:55 AM CDT *General Message Document Contains Addenda Addendum by TRISTEN ROUSE on 05 July 2014 07:57:52 CDT Patient called and left message to call back Addendum by MIKALA SWANN on 04 July 2014 09:15:00 CDT Left message to call clinic back. From: TRISTEN ROUSE ( Orthopedic Nurse) To: Orthopedic Nurse; Sent: 07/03/2014 09:55:40 CDT Subject: *General Message S: Work Comp B: Patient was seen for left shoulder pain on 06-26-14 A: at time of visit patient was going to claim injury to left shoulder to work comp As of this time patient has not done the paperwork to claim this injury with employer. Patient called to find out if he is going to claim injury under work comp or if he would like to proceed through his own insurance. R: patient called and left message to call back Source: [facility] POWERCHART Document Id: [id number] Electronically signed by [facility] Gaggerman [id number] at 03/10/2017 10:19 AM CDT Nilson - Ana Muñoz O.P.A.-C. - 06/26/2014 3:40 PM CDT Ambulatory Discharge Medication List [facility] [address] [place] [phone] Visit Information Name: ALON VIGIL [facility] Number: [id number] Visit Date: 06/26/2014 15:40:36 Attending Provider: ANA MUÑOZ Primary Care Provider: PCP, UNASSIGNED - DARYN ALON VIGIL has been given the following list of medications: Your Medications It is important to take your medications as directed. Use a pill box or chart to help remind you to take your medications. Please let your doctor or nurse know if you have problems taking your medications. Medication/Strength How to Take Indications/Special Instructions/Comments/Notes for Patient Medication Changes/Routing traMADol (traMADol 50 mg oral tablet, disintegrating) 1 Tablet(s), Oral, four times a day New Routedto Printer Stop Taking the Following Medications: Medication list as of 06-26-14 15:40 Attention: If you have any medications at home that are not on this list, DO NOT take them until youcontact your provider for clarification. Give a copy of your medication list to your primary care provider. Update your medication list any time medications or doses are changed and carry your medication list at all times in case of emergency. Electronically Signed By: ANA MUÑOZ Signed On:26-JUN-2014 15:40:28 Additional Information: Source: [facility] POWERCHART Document Id: [id number] Jameecellanam - Ana Muñoz O.P.A.-C. - 06/26/2014 3:40 PM CDT Ambulatory Patient Summary [facility] [address] [facility] [place] [id number] Visit Information Name: ALON VIGIL [facility] Number: [id number] Current Date: 06/26/2014 15:40:37 Physicians Attending Provider: ANA MUÑOZ Primary Care Provider: PCP, UNASSIGNED - OW ALON VIGIL has been given the following [...] Take Indications/Special Instructions/Comments/Notes for Patient Medication Changes/Routing traMADol (traMADol 50 mg oral tablet, disintegrating) 1 Tablet(s), Oral, four times a day New Routedto Printer Stop Taking the Following Medications: Medication list as of 06-26-14 15:40 Attention: If you have any medications at home that are not on this list, DO NOT take them until youcontact your provider for clarification. Give a copy of your medication list to your primary care provider. Update your medication list any time medications or doses are changed and carry your medication list at all times in case of emergency. Electronically Signed By: ANA MUÑOZ Signed On:26-JUN-2014 15:40:28 Your Allergies & Intolerances Substance Reaction Symptoms Category Comments penicillins Drug Toradol Drug Latex Other Your Problem List Problem Status Onset Comments No Problems found Your Upcoming Appointments Date Time Location Provider No Appointments found Attention: Contact your local Clinic if further appointment detail needed. Your Goals/Additional instructions: Source: [facility] POWERCHART Document Id: [id number] Miscellaneous - Tristen Rouse L.P.N. - 06/26/2014 3:21 PM CDT Adult Trim Carpenter Intake/History Adult Trim Carpenter Intake/History Entered On: 06/26/2014 15:24 CDT Performed On: 06/26/2014 15:21 CDT by TRISTEN ROUSE Intake Chief Complaint : left shoudler pain WC [place] DOI 05-22-14 pt states that since May the pain in his shoulder has increase since last night, pain in shoulder a lot worse and shoudler is making noises with movements Systolic Blood Pressure : 144 mmHg (HI) Diastolic Blood Pressure : 82 mmHg NIBP Mean : 103 mmHg BP Location : Right upper extremity Blood Pressure Cuff Size : Regular Height : 161 cm(Converted to: 5 ft 3 inch(es), 63 inch(es)) Actual Weight : 69.4 kg(Converted to: 153 lb 0 oz) Dosing Weight Clinic : 69.4 kg Clinic BSA : 1.76 Body Mass Index : 26.77 kg/m2 TRISTEN ROUSE - 06/26/2014 15:21 CDT General Info Information Given By : Patient Languages : Romanian Is Patient Female and 13-50 no hysterectomy : No TRISTEN ROUSE - 06/26/2014 15:21 CDT Subjective Pain Symptoms : Yes TRISTEN ROUSE 06/26/2014 15:21 CDT Pain Pain Assessment Grid Pain 1 Location : Shoulder Laterality : Left Intensity : 10 TRISTEN ROUSE - 06/26/2014 15:21 CDT Dependent Habits Tobacco Use/Currently Using : Yes Exposure to Tobacco Smoke : Other: DENIES Smoking Status : Never smoker TRISTEN ROUSE - 06/26/2014 15:21 CDT Tobacco Use Grid Type : Chewing tobacco Other Tobacco Frequency : 1 TIN A DAY Last Use : 04/17/14 TRISTEN ROUSE 06/26/2014 15:21 CDT Caffeine Use Grid Caffeine Use : Current Type : Coffee Frequency : Occasionally Last Use : FEW DAYS AGO TRISTEN ROUSE 06/26/2014 15:21 CDT Recreational Drug Use Grid Drug Use : Current Type : Alcohol Route : Oral Frequency : Daily Amount : 12 BEERS-CASE BEER Last Use : 04/17/14 Age First Used : 10 YRS OLD Length of Sobriety : 1 YEAR Consequences of Use : Legal, Relationships, School Previous Treatment : YES Support Group Experience : AA, ACOA, AL-NON Withdrawal Potential : Yes TRISTEN ROUSE - 06/26/2014 15:21 CDT Source: [facility] POWERCHART Document Id: [id number] documented in this encounter Plan of Treatment Not on filedocumented as of this encounter Visit Diagnoses Not on filedocumented in this encounter
[2022-08-19 07:02] LABS: C Reactive Protein* < 0.5 mg/dL (0.5-1.0)
--- OUTSIDE RECORDS SUMMARY | 2022-08-19 07:02 | XMS_ITS | Clinical Summary ---
:1975 Author Organization [facility] [place] [address] Care Team Providers Name Role Phone Anthony Carpenter MASTER COASTAL WATERS Primary Care Provider Allergies Active Allergy Reactions Severity Noted Date Comments Adhesive Tape-Silicones Other - Describe In 02/26/2017 Tape only - not Comment Field simethicone Ketorolac Rash, Itching, Hives 12/26/2011 Other r eaction(s): Other (see comm ents) Marianne listed n o reactions Latex Rash 10/21/2012 Other reaction( s): Other (see comm ents) Marianne listed n o reactions Penicillins Rash 10/21/2012 Other reaction( s): GI intolerance, Ot her (see comments) Marianne listed n o reactions Adhesive Rash 05/22/2014 Tramadol GI Upset, Rash 03/22/2014 Medications Medication Sig Dispensed Refills Start Date End Date Status sertraline (ZOLOFT) Take 50 mg by mouth 0 01/02/2022 Active 50 mg tablet once daily. dextroamphetamine-am Take 10 mg by mouth 0 Active phetamine (ADDERALL) once daily. 10 mg tablet acetaminophen Take 2 Tablets 0 01/24/2022 Active (TYLENOL EXTRA (1,000 mg) by mouth STRGTH) 500 mg 3 times daily. Max tablet acetaminophen dose: 4000mg in 24 hrs. oxyCODONE 1-2 tablets as 10 Tablet 0 04/01/2022 Acti ve (ROXICODONE) 5 mg needed at bedtime immediate release for low back pain tabletIndications: Acute midline low back pain with bilateral sciatica Active Problems Problem Noted Date Acute back pain with sciatica, right 01/23/2022 ADHD 01/23/2022 Depression 01/23/2022 Nontraumatic complete tear of rotator cuff, left 12/28 SLAP lesion of left shoulder 04/27/2018 Resolved Problems Problem Noted Date Resolved Date Alcohol intoxication 04/17/2014 02/05/2022 Alcoholism 04/17/2014 02/05/2022 Immunizations Name Administration Dates Next Due DTaP 12/10/1990, 07/12/1975, 10/12/1974, 10/1973, 03/12/1974 MMR 06/27/1992, 08/10/1979 Polio Virus, Unspecified 07/12/1975, 10/12/1974, 04/11/1974, 03/12/1974 Td (Age >=7 Years) 04/11/2012 Tdap 12/25/2020 Family History Medical History Relation Name Comments Alcoholism Father Chronic back pro blems. Alcoholism Mother Alcoholism Paternal Uncle 1 early 60s Heart Disease Paternal Uncle 2 Likely related to EtOHism Relation Name Status Comments Father Alive Mother Alive Paternal Uncle 1 Paternal Uncle 2 Social History Tobacco Use Types Packs/Day Years Used Date Never Smoker Smokeless Tobacco: Current User Chew Tobacco Cessation: Ready to Quit: No; Co unseling Given: Yes Comments: 1 tin per day (working on cutt ing back) Alcohol Use Standard Drinks/Week Comments Not Currently 126 (1 standard drink = 0.6 oz pure alco hol) sober since 2013 Alcohol Habits Answer Date Recorded How often do you have a drink containing alcohol? Not asked How many drinks containing alcohol do you have on a Not aske d typical day when you are drinking? How often do you have six or more drinks on one Not asked occasion? Comment: sober since 201306/26/2020 Sex Assigned at Date Recorded Not on file Obstetrics History Last Filed Vital Signs Vital Sign Reading Time Taken Comments Blood Pressure 174/98 04/01/2022 7:45 PM CDT Pulse 69 04/01/2022 7:45 PM CDT Temperature 36.8 ??C (98.3 ??F) 04/01/2022 5:39 PM CDT Respiratory Rate 18 04/01/2022 5:39 PM CDT Oxygen Saturation 99% 04/01/2022 7:45 PM CDT Inhaled Oxygen Concentration - - Weight 62.6 kg (138 lb) 04/01/2022 5:39 PM CDT Height 165.1 cm (5' 5) 04/01/2022 5:39 PM CDT Body Mass Index 22.96 04/01/2022 5:39 PM CDT Plan of Treatment Health Maintenance Due Date Last Done Comments COVID-19 vaccine series (#1) 05/05/1974 Depression screening for age 12+ 1985 BMI (ht and wt on same day) for age 18+ 1991 Hepatitis C screening for age 18-79 1991 Lipids for age 45-75 2018 Influenza for age 9-49 06/12/2022 Tetanus booster 12/25/2030 12/25/2020, 04/11/2012 Colonoscopy through age 75 07/29/2031 07/29/2021 Tdap Completed 12/25/2020 Medical Devices Implanted Type Area Cap Parts Cutter Device Shelf Model / Identifier Expiration Serial / Lot Date Ancr Soft Tissue 4.75mm X 19mmswivelock - [id number] Left: [employer] 01/10/2020 [id number]-[id number]# / Implanted: Qty: 1 on 04/28/2018 by Kaden Hall MD at [facility] Shoulder / [id number] Ancr Soft Tissue 4.75mm X 19mmswivelock - [id number] Left: [employer] 07/11/2020 [id number]-[id number]# / Implanted: Qty: 1 on 12/30/2018 by Kaden Hall MD at [facility] Shoulder / [id number] Results Not on filefrom Last 3 Months Insurance Payer Benefit Plan / Subscriber ID Effective Dates Phone Addre ss Type Group WC WORKERS WC ESIS [id number] 2020-Presen [phone] [place]DE[place] [phone] WC WORKERS WC [employer] [id number] 2021-Pres [address] [place] [address] BLUE CROSS BLUE CROSS OF [id number] 2021-Presen [address] [place] [phone] (Home) [place] [phone] Alon Jaimes Workers Comp Self 1975 [phone] (Home) [place] [phone] Alon Jaimes Workers Comp Self 1975 [phone] (Home) [place] [phone] Alon Jaimes Workers Comp Self 1975 [phone] (Home) [place] [phone] ENVIRONMENTAL Occ Other 10/12/1900 [phone] [employer] [address] (Home) [phone] [facility] 0 ([place]) [place] [address] Ditto Occ Employer 10/12/2000 [phone] [address] [employer] [place] [facility] [address] (Home) DEPT [id number] [place] [phone] (Work) [place] [address] [employer] Occ Employer [phone] [email or web address] [facility] (Work) [place] ([place],PRE-EMP,RESP,IN [place],AUD[place]) [address] Advance Directives Latest Code Status on File Code Status Date Activated Date Inactivated Comments Full Code 01/23/2022 11:08 AM 01/24/2022 7:42 PM Code Status Discussion: Reviewed Preferences Full Code 07/29/2021 7:06 AM 07/29/2021 6:55 PM Code Status Discussion: Not Discussed Full Code 04/08/2021 6:01 AM 04/08/2021 10:46 AM Code Status Discussion: Not Discussed Full Code 08/08/2019 9:54 AM 08/08/2019 5:17 PM Full Code 12/30/2018 7:43 AM 12/30/2018 2:55 PM Code Status Discussion: Not Discussed Care Teams Convex Grinder Operator Relationship Specialty Start Date End Date Anthony Carpenter, MASTER COASTAL WATERS PCP - General Nurse Practitioner 02/07/202199 [address] [address]
--- OUTSIDE RECORDS SUMMARY | 2022-08-19 07:02 | XMS_ITS | Encounter Summary ---
:1975 Author Organization [facility] Address [address] [place] [address] Care Team Providers Name Role Phone No Ref-Primary, Physician Primary Care Provider [phone] Encounter Details Date Type Department Care Team Description 04/16/2022 Travel Social History Tobacco Use Types Packs/Day Years Used Date Smoking Tobacco: Former Smokeless Tobacco: Current Alcohol Use Standard Drinks/Week Comments Yes 0 (1 standard drink = 0.6 oz pure alcoho l) rare Sex Assigned at Date Recorded Not on file COVID-19 Exposure Response Date Recorded In the last 10 days, have you been in contact with No / Unsu re 04/16/2022 10:34 AM CDT someone who was confirmed or suspected to have Coronavirus/COVID-19? documented as of this encounter Plan of Treatment Not on filedocumented as of this encounter Visit Diagnoses Not on filedocumented in this encounter Care Teams Furrier Apprentice Relationship Specialty Start Date End Date No Ref-Primary, Physician PCP - General 04/16/22 documented as of this encounter
--- OUTSIDE RECORDS SUMMARY | 2022-08-19 07:02 | XMS_ITS | Encounter Summary ---
:1975 Author Organization [place] Address [address] [place] [address]. [place] [address] Care Team Providers Name Role [facility], [facility] Primary Care Provider [phone] Encounter Details Date Type Department Care Team Description 09/04/2021 Emergency [facility] Harman Fuentes, Pain of right clavicle; [facility] Emergency Dep t DO Fall down stairs, initial encounter [address] [facility] [place], [place] [address] [address] [phone] [place] [address] (Wo rk) Social History Tobacco Use Types Packs/Day Years Used Date Smoking Tobacco: Former Smokeless Tobacco: Current Alcohol Use Standard Drinks/Week Comments Yes 0 (1 standard drink = 0.6 oz pure alcoho l) rare Sex Assigned at Date Recorded Not on file COVID-19 Exposure Response Date Recorded In the last month, have you been in contact with No / Unsure 09/04/2021 8:06 AM HOTEL DIRECTOR someone who was confirmed or suspected to have Coronavirus / COVID-19? documented as of this encounter Last Filed Vital Signs Vital Sign Reading Time Taken Comments Blood Pressure 156/104 09/04/2021 10:00 AM HOTEL DIRECTOR Pulse 85 09/04/2021 10:00 AM HOTEL DIRECTOR Temperature 36.9 ??C (98.5 ??F) 09/04/2021 8:24 AM HOTEL DIRECTOR Respiratory Rate 22 09/04/2021 8:24 AM HOTEL DIRECTOR Oxygen Saturation 100% 09/04/2021 10:00 AM HOTEL DIRECTOR Inhaled Oxygen Concentration - - Weight - - Height - - Body Mass Index - - documented in this encounter Discharge Instructions Discharge InstructionsHarman Fuentes DO - 09/04/2021 10:50 AM HOTEL DIRECTOR What do you do next: Continue your home medications unless we have specifically changed them Use the pain medication I have prescribed as directed. Follow up as indicated below When do you return: If you have uncontrollable pain, numbness or weakness in your arm/hand, shortness of breath, or any other symptoms that concern you, please return to the ED for reevaluation. Thank you for allowing us to care for you today. L DIRECTOR AttachmentsThe following attachments cannot be sent through Care Everywhere. Shoulder Joint, The (Palestinian)documented in this encounter Medications at Time of Discharge Medication Sig Dispensed Refills Start Date End Date oxyCODONE (ROXICODONE) 5 Take 1 tablet (5 mg) 12 tablet 0 1 11/04/2020 04/16/2022 MG tablet by mouth every 6 hours as needed for pain documented as of this encounter ED Notes Lorna Gaines RN - 09/04/2021 8:23 AM CST A&O x4. ABC's intact. Pt arrives with c/o right shoulder injury after falling down 7 steps in the basement landing on shoulder 1 wk ago. When checking pt having clavicle pain. Sling applied to right side. L DIRECTOR Harman Fuentes DO - 09/04/2021 8:06 AM CST History Chief Complaint: Right Shoulder Pain The history is provided by the patient. Alon Jaimes is a 45 year old male who presents with right shoulder pain. About a week ago, the patient fell down 7 steps and landed on his right shoulder. His pain has been worsening since then, and described it as a stabbing pain. He pinpoints the pain to his right clavicle. He notes taking deep breathes doesn't exacerbate the pain. The pain has been preventing him from sleeping. Review of Systems Musculoskeletal: Positive for arthralgias (Right shoulder). All other systems reviewed and are negative. Allergies: Latex Penicillin G Toradol Tape [Adhesive Tape] Medications: Protonix Past Medical History: Suicidal tendencies Migraines Depression Anxiety ADHD Presbyopia Alcohol Moderate Or Severe Use Disorder Left rotator cuff tear Insomnia Past Surgical History: Rotator cuff repair Right shoulder surgery Carpal tunnel release Family History: Father - alcohol abuse Mother - asthma Social History: Patient was unaccompanied to the ED. Hx of alcohol abuse Hx of tobacco use (current chew user) Physical Exam Patient Vitals for the past 24 hrs: BP Temp Temp src Pulse Resp SpO2 09/04/21 1000 (!) 156/104 -- -- 85 -- 100 % 09/04/21 0945 (!) 150/95 -- -- 91 -- 100 % 09/04/21 0824 (!) 145/103 98.5 ??F (36.9 ??C) Oral 80 22 100 % Physical Exam Constitutional: Vital signs reviewed as above. Head: No external signs of trauma noted. Eyes: Pupils are equal, round, and reactive to light. Neck: No JVD noted Cardiovascular: Normal rate, regular rhythm and normal heart sounds. No murmur heard. Equal B/L peripheral pulses. Pulmonary/Chest: Effort normal and breath sounds normal. No respiratory distress. Patient has no wheezes. Patient has no rales. Gastrointestinal: Soft. There is no tenderness. Musculoskeletal/Extremities: There seems to be tenderness to the medial and lateral clavicle. Palpation of the right chest, right scapula, and right shoulder all cause discomfort near the medial aspectof the right clavicle. Neurological: Patient is alert and oriented to person, place, and time. Skin: Skin is warm and dry. There is no diaphoresis noted. Psychiatric: The patient appears calm. Emergency Department Course Imaging: Chest CT w IV contrast only, TRAUMA / DISSECTION Final Result IMPRESSION: 1. No acute or traumatic findings in the chest. No acute rib or clavicle fractures. MARIA A TRISTAN MD Clavicle XR, right Preliminary Result IMPRESSION: There is a faint obliquely-oriented lucency in the distal clavicle that has the appearance of a healing or nearly healed fracture. I suspect the appearance of the distal clavicle is due to a chronic fracture. Doubt acute fracture. If symptoms persist, recommend follow-up x-ray in 10 days. Per Radiology Laboratory: Labs Ordered and Resulted from Time of ED Arrival to Time of ED Departure ISTAT CREATININE POCT - Normal Result Value Creatinine POCT 0.9 GFR, ESTIMATED POCT >60 CREATININE POCT - Normal Creatinine 0.9 Emergency Department Course: Reviewed/Assessments: ED Course as of 09/04/21 1349 Wed Sep 04, 2021 0916 I obtained history and examined the patient as noted above. 1038 Rechecked and updated. Interventions: 0950 Morphine 4 mg IV Disposition: The patient was discharged to home. Impression & Plan Medical Decision Making: This 45-year-old male patient presents to the ED due to right clavicle pain. Please see the HPI and exam for specifics. Based on the patient's symptoms and the sharp discomfort that he noted, I was concerned for possible clavicle dislocation or even rib fracture not seen on x-ray. The patient underwent CT imaging but no concerning findings were found. I felt he was able to be discharged. I will prescribe him some pain medication to help with the symptoms. Should follow-up with his primary care clinic but he also requested an orthopedic clinic to follow-up as well. I will give him that and encouraged follow-up as noted. Anticipatory guidance given prior to discharge. Covid-19 Alno Jaimes was evaluated during a global COVID-19 pandemic, which necessitated consideration that the patient might be at risk for infection with the SARS-CoV-2 virus that causes COVID-19. Applicable protocols for evaluation were followed during the patient's care. Diagnosis: ICD-10-CM 1. Pain of right clavicle M89.8X1 2. Fall down stairs, initial encounter W10.8XXA Discharge Medications: Discharge Medication List as of 09/04/2021 10:51 AM START taking these medications Details oxyCODONE (ROXICODONE) 5 MG tablet Take 1 tablet (5 mg) by mouth every 6 hours as needed for pain, Disp-12 tablet, R-0, E-Prescribe Scribe Disclosure: IGiuliano, am serving as a scribe at 9:11 AM on 09/04/2021 to document services personally performed by Harman Fuentes DO based on my observations and the provider's statements to me. Harman Fuentes DO 09/04/21 1350 L DIRECTOR documented in this encounter Plan of Treatment Not on filedocumented as of this encounter Procedures Procedure Name Priority Date/Time Associated Comments Diagnosis CT CHEST W CONTRAST STAT 09/04/2021 10:19 AM R esults for this HOTEL DIRECTOR procedure are i n the results section. EXTRA PURPLE TOP STAT 09/04/2021 9:47 AM Resul ts for this TUBE HOTEL DIRECTOR procedure are i n the results section. EXTRA GREEN TOP STAT 09/04/2021 9:47 AM Result s for this (LITHIUM HEPARIN) HOTEL DIRECTOR procedure are in TUBE the results section. CREATININE POCT STAT 09/04/2021 9:47 AM Result s for this HOTEL DIRECTOR procedure are i n the results section. EXTRA TUBE STAT 09/04/2021 9:46 AM Results f or this HOTEL DIRECTOR procedure are i n the results section. EXTRA RED TOP TUBE STAT 09/04/2021 9:46 AM Res ults for this HOTEL DIRECTOR procedure are i n the results section. EXTRA BLUE TOP TUBE STAT 09/04/2021 9:46 AM Re sults for this HOTEL DIRECTOR procedure are i n the results section. ISTAT CREATININE STAT 09/04/2021 9:45 AM Resul ts for this POCT HOTEL DIRECTOR procedure are i n the results section. XR CLAVICLE RIGHT 2 STAT 09/04/2021 8:44 AM Re sults for this VIEWS HOTEL DIRECTOR procedure are i n the results section. documented in this encounter Results Chest CT w IV contrast only, TRAUMA / DISSECTION (09/04/2021 10:19 AM HOTEL DIRECTOR) Anatomical Region Laterality Modality Chest, SUBRAD CT BODY, UMP CT CHEST, RAD CT Computed Tomography Specimen (Source) Anatomical Location Collection Method / Collectio n Time Received Time / Laterality Volume Impressions 09/04/2021 10:32 AM HOTEL DIRECTOR IMPRESSION: 1. ??No acute or traumatic findings in t he chest. No acute rib or clavicle fractures. MARIA A TRISTAN MD Narrative 09/04/2021 10:[address] CHEST W CONTRAST 09/04/2021 10:19 AM CLINICAL HISTORY: Right clavicle and rib pain, fall one week ago TECHNIQUE: CT chest with IV contrast. Mu ltiplanar reformats were obtained. Dose reduction techniques were used. CONTRAST: 70mL Isovue-370 COMPARISON: 12/23/2013 and shoulder radio graphs earlier today FINDINGS: LUNGS AND PLEURA: Lungs are clear. No pl eural effusion. Stable small linear nodular opacities along the left major fissure measuring up to 3 mm, benign due to stability (series 4, image 155). MEDIASTINUM/AXILLAE: No lymphadenopathy. No thoracic aortic aneurysm. No coronary artery calcifications. No pe ricardial effusion. UPPER ABDOMEN: No significant finding. MUSCULOSKELETAL: No acute or displaced f ractures. Procedure Note Maria A Tristan MD - 09/04/2021 CT CHEST W CONTRAST 09/04/2021 10:19 AM CLINICAL HISTORY: Right clavicle and rib pain, fall one week ago TECHNIQUE: CT chest with IV contrast. Mu ltiplanar reformats were obtained. Dose reduction techniques were used. CONTRAST: 70mL Isovue-370 COMPARISON: 12/23/2013 and shoulder radio graphs earlier today FINDINGS: LUNGS AND PLEURA: Lungs are clear. No pl eural effusion. Stable small linear nodular opacities along the left major fissure measuring up to 3 mm, benign due to stability (series 4, image 155). MEDIASTINUM/AXILLAE: No lymphadenopathy. No thoracic aortic aneurysm. No coronary artery calcifications. No pe ricardial effusion. UPPER ABDOMEN: No significant finding. MUSCULOSKELETAL: No acute or displaced f ractures. IMPRESSION: 1. No acute or traumatic findings in the chest. No acute rib or clavicle fractures. MARIA A TRISTAN MD Harman Fuentes DO IMG CT ORDERABLES Extra Purple Top Tube (09/04/2021 9:47 AM HOTEL DIRECTOR) P athologist Signature Hold Specimen JIC 09/04/2021 [facility] 11:01 AM HOTEL DIRECTOR Specimen Anatomical Collection Method / Collection Time Recei aureliano Time (Source) Location / Volume Laterality Blood VENOUS LINE / Venipuncture / 09/04/2021 9:47 9:58 Unknown Unknown AM HOTEL DIRECTOR AM HOTEL DIRECTOR Harman Fuentes DO LAB - BLOOD ORDERABLES Performing Organization Address City/State/ZIP [place] [address] [facility] [address] Lab (1st floor, no room number) Extra Green Top ([place] [facility]) Tube (09/04/2021 9:47 AM HOTEL DIRECTOR) athologist Signature Hold Specimen JIC 09/04/2021 [facility] 11:01 AM HOTEL DIRECTOR Specimen Anatomical Collection Method / Collection Time Recei aureliano Time (Source) Location / Volume Laterality Blood VENOUS LINE / Venipuncture / 09/04/2021 9:47 9:58 Unknown Unknown AM HOTEL DIRECTOR AM HOTEL DIRECTOR Harman Tan Gina LATIF LAB - BLOOD ORDERABLES Performing Organization Address [facility]/ZIP Code [place] [address] [facility] [address] Lab (1st floor, no room number) Creatinine POCT (09/04/2021 9:47 AM HOTEL DIRECTOR) athologist Signature Creatinine 0.9 0.5 - 1.2 LABORATORY mg/dl POC Specimen (Source) Anatomical Location Collection Method / Collectio n Time Received Time / Laterality Volume Blood Harman Fuentes DO LAB - ENTER/EDIT POCT Performing Organization Address [facility]/ZIP Code Phon [place] [address] [facility] [address] Lab (1st floor, no room number) Extra Red Top Tube (09/04/2021 9:46 AM HOTEL DIRECTOR) athologist Signature Hold Specimen JIC 09/04/2021 [facility] 11:01 AM HOTEL DIRECTOR Specimen Anatomical Collection Method / Collection Time Recei aureliano Time (Source) Location / Volume Laterality Blood VENOUS LINE / Venipuncture / 09/04/2021 9:46 9:58 Unknown Unknown AM HOTEL DIRECTOR AM HOTEL DIRECTOR Harman Tan Gina LATIF LAB - BLOOD ORDERABLES Performing Organization Address City/[facility]/ZIP [facility] [place] [address] [facility] [address] Lab (1st floor, no room number) Extra Blue Top Tube (09/04/2021 9:46 AM HOTEL DIRECTOR) athologist Signature Hold Specimen JIC 09/04/2021 [facility] 11:01 AM HOTEL DIRECTOR Specimen Anatomical Collection Method / Collection Time Recei aureliano Time (Source) Location / Volume Laterality Blood VENOUS LINE / Venipuncture / 09/04/2021 9:46 9:58 Unknown Unknown AM HOTEL DIRECTOR AM HOTEL DIRECTOR Harman Fuentes DO LAB - BLOOD ORDERABLES Performing Organization Address City/State/ZIP [place] [address] [facility] [address] Lab (1st floor, no room number) Creatinine POCT (09/04/2021 9:45 AM HOTEL DIRECTOR) athologist Signature Creatinine POCT 0.9 0.7 - 1.3 09/04/2021 LABORATORY mg/dL 9:49 AM HOTEL DIRECTOR POC GFR, ESTIMATED >60 >60 09/04/2021 LABORATORY POCT mL/min/1.7 9:49 AM HOTEL DIRECTOR POC 3m2 Specimen Anatomical Collection Method Collection Time Receive d Time (Source) Location / / Volume Laterality Blood, venous BLOOD SPECIMEN / 09/04/2021 9:45 AM 08/13 9:49 Unknown HOTEL DIRECTOR AM HOTEL DIRECTOR Harman Fuentes LAB - BEAKER POCT Performing Organization Address City/[facility]/ZIP Code Phon [place] [address] [facility] [address] Lab (1st floor, no room number) Clavicle XR, right (09/04/2021 8:44 AM HOTEL DIRECTOR) Anatomical Region Laterality Modality Upper Extremity Right Computed Radiography Specimen (Source) Anatomical Location Collection Method / Collectio n Time Received Time / Laterality Volume Impressions 09/04/2021 2:53 PM HOTEL DIRECTOR IMPRESSION: There is a faint obliquely-oriented lucency in the distal clavicle that has the appearance of a he aling or nearly healed fracture. I suspect the appearance of th e distal clavicle is due to a chronic fracture. Doubt acute fracture. If symptoms persist, recommend follow-up x-ray in 10 days. YAHIR GEORGE MD Narrative 09/04/2021 2:53 PM HOTEL DIRECTOR RIGHT CLAVICLE TWO VIEWS ?? 09/04/2021 8:44 AM HISTORY: Fall, pain. COMPARISON: None. Procedure Note Yahir George MD - 09/04/2021Formattin g of this note might be different from the original. RIGHT CLAVICLE TWO VIEWS 09/04/2021 8:44 AM HISTORY: Fall, pain. COMPARISON: None. IMPRESSION: There is a faint obliquely-o riented lucency in the distal clavicle that has the appearance of a he aling or nearly healed fracture. I suspect the appearance of th e distal clavicle is due to a chronic fracture. Doubt acute fracture. If symptoms persist, recommend follow-up x-ray in 10 days. YAHIR GEORGE MD Harman Fuentes DO IMG DIAGNOSTIC IMAGING ORDER TOYA documented in this encounter Visit Diagnoses Diagnosis Pain of right clavicle Fall down stairs, initial encounter documented in this encounter Administered Medications Inactive Administered Medications - up to 3 most recent administrations Medication Order MAR Action Action Date Dose Rate Site CT Scan Flush Given 09/04/2021 10:12 AM HOTEL DIRECTOR 63 mLs Intravenous, 100 mL, ONCE, On Thu09/04/21 at 1010, For 1 dose, This entry is for use by Radiology to intermittently used as a flush in patients receiving a CT scan. iopamidol (ISOVUE-370) solution 500 mL Given 09/04/2021 10:11 AM HOTEL DIRECTOR 70 mLs 500 mL, Intravenous, ONCE, On Thu09/04/21 at 1010, For 1 dose morphine (PF) injection 4 mg Given 09/04/2021 9:50 AM HOTEL DIRECTOR 4 mg 4 mg, Intravenous, ONCE, Administer over 4-5 Minutes, On Thu09/04/21 at 0930, For 1 dose documented in this encounter Active and Recently Administered Medications Times are shown in HOTEL DIRECTOR. Scheduled Medication Order 09/02/2021 09/03/2021 09/04/2021 CT Scan Flush (COMPLETED) 1012 ( Given - Provider: Maria Dolores Manzo) Intravenous, 100 mL, ONCE, On Thu at 1010, For 1 dose, This entry is for use by Radiology to intermittently used as a flush in patients receiving a CT scan. iopamidol (ISOVUE-370) solution 500 mL (COMPLETED) 1011 (Given - Provider: Maria Dolores Manzo) 500 mL, Intravenous, ONCE, On Thu09/04/21 at 1010, For 1 dose morphine (PF) injection 4 mg (COMPLETED) 09 (Given - Provider: Noé Dash, RN) 4 mg, Intravenous, ONCE, Administer over 4-5 Minutes, On Thu09/04/21 at 0930, For 1 dose documented in this encounter Care Teams [place] Supervisor Relationship Specialty Start Date End Date [facility] Primitivo PCP - General 09/04/21 04/15/[address] [address] documented as of this encounter
--- OUTSIDE RECORDS SUMMARY | 2022-08-19 07:02 | XMS_ITS | Encounter Summary ---
:1975 Author Organization [place] Address [address] [place] [id number] Care Team Providers Name Role Phone [facility] Primary Care Provider [phone] Encounter Details Date Type Department Care Team Description 09/04/2021 Travel Social History Tobacco Use Types Packs/Day Years Used Date Smoking Tobacco: Former Smokeless Tobacco: Current Alcohol Use Standard Drinks/Week Comments Yes 0 (1 standard drink = 0.6 oz pure alcoho l) rare Sex Assigned at Date Recorded Not on file COVID-19 Exposure Response Date Recorded In the last month, have you been in contact with No / Unsure 09/04/2021 8:06 AM APPARATUS CLEANER someone who was confirmed or suspected to have Coronavirus / COVID-19? documented as of this encounter Plan of Treatment Not on filedocumented as of this encounter Visit Diagnoses Not on filedocumented in this encounter Care Teams Head Waiter/Waitress Relationship Specialty Start Date End Date [facility] PCP - General 09/04/21 04/15/[address] [place] [place] [address] documented as of this encounter
--- OUTSIDE RECORDS SUMMARY | 2022-08-19 07:02 | XMS_ITS | Clinical Summary ---
:1975 Author Organization [facility] Address [address] [place] [address] Care Team Providers Name Role Phone No Ref-Primary, Physician Primary Care Provider [phone] Allergies Active Allergy Reactions Severity Noted Date Comments Latex 12/26/2011 Latex 04/18/2013 Penicillin G Nausea and Vomiting 12/26/2011 Penicillins Nausea and Vomiting 04/18/2013 Adhesive Tape Rash Low 05/10/2013 And skin break s out. Toradol Hives 12/26/2011 Medications Medication Sig Dispensed Refills Start Date End Date Status amphetamine-dextro Take 10 mg by 0 Active amphetamine mouth daily (ADDERALL) 10 MG tablet acetaminophen Take 3 0 04/18/2022 Activ e (TYLENOL) 325 MG tablets (975 tabletIndications: mg) by mouth Acute bilateral every 8 hours low back pain with bilateral sciatica meloxicam (MOBIC) Take 1 tablet 30 tablet 1 04/19/2022 Active 15 MG (15 mg) by tabletIndications: mouth daily Acute bilateral low back pain with bilateral sciatica methocarbamol Take 1 tablet 60 tablet 0 04/18/2022 A ctive (ROBAXIN) 500 MG (500 mg) by tabletIndications: mouth every 6 Acute bilateral hours as low back pain with needed for bilateral sciatica muscle spasms oxyCODONE Take 0.5-1 12 tablet 0 04/18/2022 Active (ROXICODONE) 10 MG tablets (5-10 tabletIndications: mg) by mouth Acute bilateral every 6 hours low back pain with as needed for bilateral sciatica moderate to severe pain pantoprazole Take 1 tablet 90 tablet 1 04/19/2022 Ac tive (PROTONIX) 40 MG (40 mg) by EC mouth every tabletIndications: morning Acute bilateral (before low back pain with breakfast) bilateral sciatica pregabalin Take 1 90 capsule 1 04/18/2022 Active (LYRICA) 75 MG capsule (75 capsuleIndications mg) by mouth : Acute bilateral 3 times daily low back pain with bilateral sciatica sertraline Take 0.5 90 tablet 1 04/19/2022 Active (ZOLOFT) 50 MG tablets (25 tabletIndications: mg) by mouth Acute bilateral daily For 2 low back pain with weeks and bilateral sciatica then increase to 50 mg daily gabapentin Take 500 mg 0 Discont inued (NEURONTIN) 100 MG by mouth 3 2 (Stop at capsule times daily Discharg e) Active Problems Problem Noted Date Leg weakness, bilateral 04/16/2022 Acute bilateral low back pain with bilateral sciatica 04/16/2022 CARDIOVASCULAR SCREENING; LDL GOAL LESS THAN 160 05/13 Overview: Score not calculated. Missing: Total Cho lesterol, HDL Depression, major 10/05/2012 Social History Tobacco Use Types Packs/Day Years Used Date Smoking Tobacco: Former Smokeless Tobacco: Current Alcohol Use Standard Drinks/Week Comments Yes 0 (1 standard drink = 0.6 oz pure alcoho l) rare Sex Assigned at Date Recorded Not on file Last Filed Vital Signs Vital Sign Reading Time Taken Comments Blood Pressure 129/76 04/18/2022 2:53 PM CDT Pulse 74 04/18/2022 2:53 PM CDT Temperature 36.8 ??C (98.2 ??F) 04/18/2022 2:53 PM CDT Respiratory Rate 17 04/18/2022 2:53 PM CDT Oxygen Saturation 97% 04/18/2022 2:53 PM CDT Inhaled Oxygen Concentration - - Weight 57.2 kg (126 lb 3.2 oz) 04/16/2022 10:41 PM CDT Height 165.1 cm (5' 5) 04/16/2022 10:41 PM CDT Body Mass Index 21 04/16/2022 10:41 PM CDT Plan of Treatment Health Maintenance Due Date Last Done Comments ADVANCE CARE PLANNING 1975 ANNUAL REVIEW OF HM ORDERS 1973 CT COLONOGRAPHY 1973 DEPRESSION ACTION PLAN 1973 FIT-DNA (Cologuard) 1975 FIT 1975 FLEX SIG 1975 HEPATITIS B IMMUNIZATION (1 1973 of 3 - 3-dose series) PHQ-9 1975 YEARLY PREVENTIVE VISIT 1975 COVID-19 Vaccine (#1) 05/05/1974 HIV SCREENING 1988 HEPATITIS C SCREENING 1991 LIPID 2008 INFLUENZA VACCINE (#1) 2022 DTAP/TDAP/TD IMMUNIZATION 12/25/2030 12/25/2020, 04/11/2012 , (8 - Td or Tdap) 12/10/1990, Additional history exists COLONOSCOPY 07/29/2031 07/29/2021 COLORECTAL CANCER SCREENING 07/29/2031 IPV IMMUNIZATION Completed 07/12/1975, 10/12/1974, 04/11/1974, Additional history exists MENINGITIS IMMUNIZATION Aged Out No longe r eligible based on patient 's age to complete this topic Pneumococcal Vaccine: Aged Out No longer eligible Pediatrics (0 to 5 Years) based on patient's age and At-Risk Patients (6 to to co mplete this topic 64 Years) Insurance Payer Benefit Plan / Subscriber ID Effective Dates Phone Addre ss Type Group BCBS [place] [id number] 2019-Presen [phone] [address] [address] Indemnity t [place] [address] [phone] [place] [id number] [address] [employer] Self 1975 [phone] [id number] (Home) [place] [id number] [employer] Self 1975 [phone] [address] (Home) [place] [id number] [employer] Employer Related Employer [phone] [address] [place] [address] (Home) [place] [id number] [facility] Jatin Jaimes Worker[employer] Self 1975 [phone] Compensation [address] (Home) [address] [place] [id number] Advance Directives For more information, please contact: [phone] Latest Code Status on File Code Status Date Activated Date Inactivated Comments Full Code 04/16/2022 10:35 PM 04/18/2022 8:42 PM All basic and advanced life-sustaining interventions ar e performed as appropriate Question Answer Comments Code status determined by: Discussion with patient/ legal de cision maker Code Status History Code Status Date Activated Date Inactivated Comments Full Code 10/05/2012 8:58 PM 10/19/2012 12:22 PM Care Teams Booking Manager Relationship Specialty Start Date End Date No Ref-Primary, Physician PCP - General 04/16/22
--- OUTSIDE RECORDS SUMMARY | 2022-08-19 07:02 | XMS_ITS | Encounter Summary ---
:1975 Author Organization [facility] Address [address] [place] [address] Care Team Providers Name Role Phone [facility] Primary Care Provider [phone] No Ref-Primary, Physician Primary Care Provider [phone] Encounter Details Date Type Department Care Team Description 09/04/2021 Documentation Only INTERFACED REPORT Unknown, Provider Social History Tobacco Use Types Packs/Day Years Used Date Smoking Tobacco: Former Smokeless Tobacco: Current Alcohol Use Standard Drinks/Week Comments Yes 0 (1 standard drink = 0.6 oz pure alcoho l) rare Sex Assigned at Date Recorded Not on file COVID-19 Exposure Response Date Recorded In the last month, have you been in contact with No / Unsure 09/04/2021 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 documented as of this encounter Plan of Treatment Not on filedocumented as of this encounter Visit Diagnoses Not on filedocumented in this encounter Care Teams Pot Sander Relationship Specialty Start Date End Date [facility] PCP - General 09/04/21 04/15/[address] [facility] [place] [address] No Ref-Primary, Physician PCP - General 04/16/22 documented as of this encounter
--- OUTSIDE RECORDS SUMMARY | 2022-08-19 07:02 | XMS_ITS | Encounter Summary ---
:1975 Author Organization [facility] Address [address] [place] [id number] Care Team Providers Name Role Phone No Ref-Primary, Physician Primary Care Provider [phone] Reason for Referral Mental Health Outpatient (Routine: Next available opening) - Pending Review Specialty Diagnoses / Procedures Referred By Contact Refer red To Contact Behavioral Health Diagnoses Acute bilateral low back pain with bilateral sciatica Anxiety Evette Morley PA-C [address] [place] [address] Referral ID Status Reason Start Date Expiration Date Visits V isits Requested Authorized [id number] Pending 04/18/2022 04/18/2023 1 1 Review Consultation (Routine: Next available opening) - Pending Review Specialty Diagnoses / Procedures Referred By Contact Refer red To Contact Pain Medicine Diagnoses Acute bilateral low back pain with bilateral sciatica Evette Morley PA-C [facility] [address] [place] [address] [place] [address] [place] [address] Phone: Fax: Referral ID Status Reason Start Date Expiration Date Visits V isits Requested Authorized [id number] Pending 04/18/2022 04/18/2023 1 1 Review Consultation (Priority: 1-2 Weeks) - Pending Review Specialty Diagnoses / Procedures Referred By Contact Refer red To Contact Pain Medicine Diagnoses Acute bilateral low back pain with bilateral sciatica Leg weakness, bilateral Anxiety Attention deficit hyperactivity disorder (ADHD), predominantly hyperactive type Evette Morley [facility] [place] [facility] [address] [address] [facility] [address] [place] [address] [address] [place] [address] Phone: Referral ID Status Reason Start Date Expiration Date Visits V isits Requested Authorized [id number] Pending 04/18/2022 04/18/2023 10 10 Review Reason for Visit Reason Comments Back Pain Auth/Cert Specialty Diagnoses / Procedures Referred By Contact Refer red To Contact Med Surg Diagnoses Leg weakness, bilateral Acute bilateral low back pain with bilateral sciatica Acute bilateral low back pain with bilateral sciatica Leg weakness, bilateral [facility] [address] [place], [place] [address] Phone: Referral ID Status Reason Start Date Expiration Date Visits Requ ested Visits Authorized [id number] 1 1 Encounter Details Date Type Department Care Team Description 04/16/2022 - Emergency [facility] Darron Heredia MD [facility] [address] [place] [address] Anxiety (Primary Dx); 04/18/2022 Daniel Ramires MD [facility] [address] [place], [place] [id number] Acute bilateral low back pain with bilat eral sciatica; Dept Juan Lozano MD [address] [address] Leg weakness, bilateral; [address] Attention deficit hyperactiv ity disorder (ADHD), predominantly hyperactive type [place] [id number] Social History Tobacco Use Types Packs/Day Years [...] have Coronavirus/COVID-19? documented as of this encounter Last Filed [...] Mass Index 21 04/16/2022 10:41 PM CDT documented in this encounter Discharge Summaries Evette Morley PA-C - 04/18/2022 4:44 PM CDT Discharge Summary Hospitalist Service Alon Jaimes Date of : 1975 Age: [age] year old Date of Admission: 04/16/2022 Date of Discharge: 04/18/2022 Admitting Physician: Juan Lozano MD Discharge Physician: Evette Morley PA-C Discharging Service: Hospitalist Service Primary Provider: No Ref-Primary, Physician Primary Care Physician Phone Number: None Discharge Diagnoses/Problem Oriented Hospital Course (Providers): Alon Jaimes was admitted on 04/16/2022 by Juan Lozano MD and I would refer you to their history and physical. Briefly, in December 2021 he fell on cement resulting in chronic lower back pain with bilateral lower extremity pain/numbness/weakness of legs. He presented to our ER with intractable back pain with bilateral radiculopathy,??urinary incontinence,??perineal??parathesia and difficulty walking. On admission he had repeat MRI lumbar spine showing mild disc protrusion at L4-L5 whichwould not account for degree of pain/radicular symptoms. [facility] spine surgery was called from the ER recommending thoracic MRI which was unremarkable. The ED wanted to admit for pain control and spine surgery recommended neurology consultation. Patient also complained of urinary retention but multiple bladder scans showed he was appropriately emptying bladder. On admission MRI brain also done to look for less likely MS which was negative. Neurology consulted who recommended MRI cervical spine which was also unremarkable. Patient had recently seen Dr. Romeo from [facility] who felt patientwould benefit most from a pain clinic referral so pain service was consulted. He was treated with scheduled Tylenol, scheduled Robaxin, Lyrica (intolerant to gabapentin), Atarax PRN, Meloxicam and oxycodone with improvement in pain and ability to ambulate. It was recommended by our pain service that he establish care with a pain clinic and with someone from mental health to work on coping with chronic pain. Code Status: Full Code Brief Hospital Stay Summary Sent Home With Patient in AVS: Reason for your hospital stay You were admitted for concerns of intractable back and leg pain with numbness. We did extensive work up including MRI of brain, neck, mid back and low back which did not provide explanation of your symptoms. We have started a multimodal pain regimen and recommend you follow up with Dr. Romeo and our referrals to a pain clinic and therapist. We have restarted your Zoloft and you should start with 25 mg for two weeks followed by 50 mg daily. As for pain narcotics should be the last choice. Please take Lyrica as scheduled and you may take the robaxin/atarax scheduled as well. We have started Mobic daily for pain and this increased chances of stomach upset so we started Protonix to protect against that. Do not use Gabapentin if you are using the Lyrica and do not use Zanaflex if you are using Robaxin Pending Results: Unresulted Labs Ordered in the Past 30 Days of this Admission No orders found from 03/17/2022 to 04/17/2022. Discharge Instructions and Follow-Up: Follow-up Appointments Follow-up and recommended labs and tests Follow up with Dr. Romeo Make appointment at pain clinic [facility] Make therapy appointment [facility] Discharge Disposition: Discharged to home Discharge Medications: Current Discharge Medication List START taking these medications Details acetaminophen (TYLENOL) 325 MG tablet Take 3 tablets (975 mg) by mouth every 8 hours Associated Diagnoses: Acute bilateral low back pain with bilateral sciatica hydrOXYzine (ATARAX) 50 MG tablet Take 0.5-1 tablets (25-50 mg) by mouth every 6 hours as needed forother (pain) Qty: 60 tablet, Refills: 0 Associated Diagnoses: Acute bilateral low back pain with bilateral sciatica meloxicam (MOBIC) 15 MG tablet Take 1 tablet (15 mg) by mouth daily Qty: 30 tablet, Refills: 1 Associated Diagnoses: Acute bilateral low back pain with bilateral sciatica methocarbamol (ROBAXIN) 500 MG tablet Take 1 tablet (500 mg) by mouth every 6 hours as needed for muscle spasms Qty: 60 tablet, Refills: 0 Associated Diagnoses: Acute bilateral low back pain with bilateral sciatica oxyCODONE (ROXICODONE) 10 MG tablet Take 0.5-1 tablets (5-10 mg) by mouth every 6 hours as needed for moderate to severe pain Qty: 12 tablet, Refills: 0 Associated Diagnoses: Acute bilateral low back pain with bilateral sciatica pantoprazole (PROTONIX) 40 MG EC tablet Take 1 tablet (40 mg) by mouth every morning (before breakfast) Qty: 90 tablet, Refills: 1 Associated Diagnoses: Acute bilateral low back pain with bilateral sciatica pregabalin (LYRICA) 75 MG capsule Take 1 capsule (75 mg) by mouth 3 times daily Qty: 90 capsule, Refills: 1 Associated Diagnoses: Acute bilateral low back pain with bilateral sciatica sertraline (ZOLOFT) 50 MG tablet Take 0.5 tablets (25 mg) by mouth daily For 2 weeks and then increase to 50 mg daily Qty: 90 tablet, Refills: 1 Associated Diagnoses: Acute bilateral low back pain with bilateral sciatica CONTINUE these medications which have NOT CHANGED Details amphetamine-dextroamphetamine (ADDERALL) 10 MG tablet Take 10 mg by mouth daily STOP taking these medications gabapentin (NEURONTIN) 100 MG capsule Comments: Reason for Stopping: tiZANidine (ZANAFLEX) 4 MG tablet Comments: Reason for Stopping: Allergies: Allergies Allergen Reactions ??? Latex ??? Latex ??? Penicillin G Nausea and Vomiting ??? Penicillins Nausea and Vomiting ??? Toradol Hives ??? Tape [Adhesive Tape] Rash And skin breaks out. Consultations This Hospital Stay: Consultation during this admission received from neurology, pain service and spine surgery Condition and Physical on Discharge: Discharge condition: Stable Vitals: Blood pressure 129/76, pulse 74, temperature 98.2 ??F (36.8 ??C), temperature source Oral, resp. rate 17, height 1.651 m (5' 5), weight 57.2 kg (126 lb 3.2 oz), SpO2 97 %. Constitutional: Alert and orientated x 3 Lungs: CTAB Cardiovascular: RRR with no murmur Abdomen: Bowel sounds are present with no tenderness Skin: No rash or open sores Other: Discharge Time: Less than 30 minutes. Image Results From This Hospital Stay (For Non-EPIC Providers): Results for orders placed or performed during the hospital encounter of 04/16/22 MR Lumbar Spine w/o & w Contrast Narrative MRI LUMBAR SPINE WITH AND WITHOUT CONTRAST April 16, 2022 1:03 PM HISTORY: Low back pain, bilateral radicular symptoms, saddle anesthesia, urinary retention. TECHNIQUE: Multiplanar multisequence MRI of the lumbar spine with and without contrast. A total of 6.5 mL of Gadavist was injected intravenously. COMPARISON: None. FINDINGS: A transitional lumbosacral segment is considered to be a sacralized L5. Alignment is significant for levoconvex curvature and multilevel subtle grade 1 spondylolisthesis. Bone marrow demonstrates mild degenerative endplate change most conspicuous surrounding the L4-L5 disc joint. Conus medullaris is unremarkable terminating at the level the T12-L1 disc. Cauda equina is unremarkable. Mild bilateral sacroiliac joint degenerative change. No convincing extraspinal abnormality. Segmental Analysis: T12-L1: Disc height maintained. No herniation. Normal facet joints. No foraminal or spinal canal stenosis. L1-L2: Disc height maintained. No herniation. Normal facet joints. No foraminal or spinal canal stenosis. L2-L3: Disc height maintained. No herniation. Normal facet joints. No foraminal or spinal canal stenosis. L3-L4: Disc height maintained. No herniation. Normal facet joints. No foraminal or spinal canal stenosis. L4-L5: Mild disc height loss. Disc bulge with shallow central protrusion/annular fissure which demonstrates enhancement. Normal facet joints. No right foraminal stenosis. Mild if any left foraminal stenosis. No spinal canal stenosis. L5-S1: Sacralized L5 with small disc. No foraminal or spinal canal stenosis. Impression IMPRESSION: 1. Mild disc height loss at L4-L5 with shallow central protrusion/annular fissure. 2. No high-grade stenoses. XAVIER GRACE MD SYSTEM ID: [id number] MR Thoracic Spine w/o Contrast Narrative EXAM: MR THORACIC SPINE W/O CONTRAST LOCATION: [facility] DATE/TIME: 04/16/2022 5:22 PM INDICATION: Back pain; perineal numbness; urinary symptoms; weakness. COMPARISON: Chest CT from 09/04/2021. TECHNIQUE: Routine Thoracic Spine MRI without IV contrast. FINDINGS: Alignment is normal. No marrow edema. Several small scattered incidental vertebral body hemangiomas.Small chronic Schmorl's node along the superior T5 endplate is unchanged. No acute fracture. No significant canal narrowing or foraminal narrowing. No cord signal abnormality. Disc space heights are preserved. No definite extraspinal abnormality. Impression IMPRESSION: 1. Mild cervical spondylosis. No acute fracture, canal, or foraminal narrowing. 2. No definite cord signal abnormality. MR Brain w/o & w Contrast Narrative MR BRAIN W/O & W CONTRAST 04/17/2022 12:09 PM INDICATION: Weakness of lower legs, loss of sensation, urinary incontinence, rule out MS TECHNIQUE: Noncontrast and contrast enhanced MRI of the brain. CONTRAST: 6 mL Gadavist COMPARISON: Brain MRI 05/10/2013 FINDINGS: There is no restricted diffusion. Paranasal sinuses are free from significant disease. Mastoid air cells appear free from significant disease. Intraorbital contents are unremarkable. Ventricles are within normal limits in size for the patient's age. Intracranial flow voids are intact. There is no mass effect, midline shift, or extraaxial collection. There are scattered foci of T2/FLAIR hyperintensity within the cerebral white matter that are nonspecific. No evidence for acute or chronic intracranial blood products. Impression IMPRESSION: 1. A few T2 hyperintense foci in the white matter are most commonly reflect gliosis related to prior ischemic or inflammatory insult. They are not typical of an underlying demyelinating disorder but are nonspecific. 2. No acute intracranial finding. No evidence for recent ischemia, intracranial hemorrhage, or mass. VIC MEYER MD SYSTEM ID: [id number] MR Cervical Spine w/o Contrast Narrative MRI CERVICAL SPINE WITHOUT CONTRAST 04/18/2022 12:39 PM HISTORY: Cervical stenosis? Unexplained bilateral leg weakness. TECHNIQUE: Multiplanar, multisequence MRI of the cervical spine without contrast. COMPARISON: Cervical spine CT 03/15/2012. FINDINGS: Alignment is essentially within normal limits. Bone marrow demonstrates minimal degenerative endplate change most conspicuous surrounding the C5-C6 disc joint. No high-grade marrow edema. No convincing cord signal abnormality. No appreciable extraspinal abnormality. Presumed benign/reactive cystic change involving the partially visualized bilateral palatine tonsils. Level by level as follows: C2-C3: Disc height maintained. Minimal central bulge. Normal facet joints. No foraminal or spinal canal stenosis. C3-C4: Mild disc height loss. Shallow central bulge. Mild bilateral facet arthropathy. Mild if any right foraminal stenosis. No left foraminal stenosis. No spinal canal stenosis. C4-C5: Mild disc height loss. Shallow central protrusion. Mild bilateral facet arthropathy. No foraminal stenosis. Mild spinal canal stenosis. C5-C6: Mild disc height loss. Disc osteophyte complex. Mild bilateral facet arthropathy. Mild right foraminal stenosis related to uncovertebral osteophyte. No left foraminal stenosis. Presumed left foraminal nerve root sleeve cyst. No spinal canal stenosis. C6-C7: Disc height maintained. No herniation. Mild bilateral facet arthropathy. No foraminal or spinal canal stenosis. Presumed bilateral nerve root sleeve cyst. C7-T1: Disc height maintained. No herniation. Mild bilateral facet arthropathy. No foraminal or spinal canal stenosis. Presumed left foraminal nerve root sleeve cyst. T1-T2: Subtle/shallow right central protrusion. No foraminal or spinal canal stenosis. Impression IMPRESSION: 1. Mild degenerative change as detailed. 2. No high-grade stenoses. XAVIER GRACE MD Most Recent Lab Results In [facility] (For Non-[facility] Providers): Most Recent 3 CBC's: Recent Labs Lab Test 04/16/22 1202 WBC 5.4 HGB 15.3 MCV 92 PLT 260 Most Recent 3 BMP's: Recent Labs Lab Test 04/16/22 1202 09/04/21 0945 NA 140 -- POTASSIUM 4.1 -- CHLORIDE 104 -- CO2 31 -- BUN 10 -- CR 0.78 0.9 ANIONGAP 5 -- OMARI 9.1 -- GLC 101* -- Most Recent 3 Troponin's:No lab results found. Most Recent 3 INR's:No lab results found. Most Recent 2 LFT's:No lab results found. Most Recent Cholesterol Panel:No lab results found. Most Recent 6 Bacteria Isolates From Any Culture (See EPIC Reports for Culture Details):No lab results found. Most Recent TSH, T4 and HgbA1c: No lab results found. documented in this encounter Discharge Instructions AttachmentsThe following attachments cannot be sent through Care Everywhere.Back Pain w/ Sciatica (Thai)Paraesthesias (Thai)documented in this encounter Medications at Time of Discharge Medication Sig Dispensed Refills Start Date End Date acetaminophen (TYLENOL) Take 3 tablets (975 0 05/2022 325 MG tabletIndications: mg) by mouth every Acute bilateral low back 8 hours pain with bilateral sciatica amphetamine-dextroampheta Take 10 mg by mouth 0 mine (ADDERALL) 10 MG daily tablet meloxicam (MOBIC) 15 MG Take 1 tablet (15 30 tablet 1 04/19 tabletIndications: Acute mg) by mouth daily bilateral low back pain with bilateral sciatica methocarbamol (ROBAXIN) Take 1 tablet (500 60 tablet 0 05/2022 500 MG tabletIndications: mg) by mouth every Acute bilateral low back 6 hours as needed pain with bilateral for muscle spasms sciatica oxyCODONE (ROXICODONE) 10 Take 0.5-1 tablets 12 tablet 0 MG tabletIndications: (5-10 mg) by mouth Acute bilateral low back every 6 hours as pain with bilateral needed for moderate sciatica to severe pain pantoprazole (PROTONIX) Take 1 tablet (40 90 tablet 1 04/19 40 MG EC mg) by mouth every tabletIndications: Acute morning (before bilateral low back pain breakfast) with bilateral sciatica pregabalin (LYRICA) 75 MG Take 1 capsule (75 90 capsule 1 capsuleIndications: Acute mg) by mouth 3 bilateral low back pain times daily with bilateral sciatica sertraline (ZOLOFT) 50 MG Take 0.5 tablets 90 tablet 1 /06/2022 tabletIndications: Acute (25 mg) by mouth bilateral low back pain daily For 2 weeks with bilateral sciatica and then increase to 50 mg daily hydrOXYzine (ATARAX) 50 Take 0.5-1 tablets 60 tablet 0 05/202205/02/2022 MG tabletIndications: (25-50 mg) by mouth Acute bilateral low back every 6 hours as pain with bilateral needed for other sciatica (pain) documented as of this encounter Progress Notes Malik Alfonso MD - 04/18/2022 4:09 PM CDT Images from the original note were not included. Neurology Follow Up Note [facility] [April 18, 2022] Admission Date: 04/16/2022 Hospital Day: 3 Code Status: Full Code Patient: Alon Jaimes : 1975 O: C-spine MRI shows mild central canal narrowing in the mid-C-spine but without evidence of cord compression and intrinsic cord pathology. The treatable cause of his reported leg numbness in the setting of well-preserved knee and plantar reflexes remains uncertain, but peripheral neuropathy and lumbar stenosis/radiculopathy cannot account for his reported leg numbness. Continuing supportive care forhis low thoracic/lumbar pain is reasonable. Malik Alfonso M.D., Ph.D. [facility] ALLERGIES: Allergies Allergen Reactions ??? Latex ??? Latex ??? Penicillin G Nausea and Vomiting ??? Penicillins Nausea and Vomiting ??? Toradol Hives ??? Tape [Adhesive Tape] Rash And skin breaks out. MEDICATIONS: CURRENTLY SCHEDULED MEDICATIONS ??? acetaminophen 975 mg Oral Q8H ??? amphetamine-dextroamphetamine 10 mg Oral Daily ??? hydrOXYzine 25 mg Oral Q6H Or ??? hydrOXYzine 50 mg Oral Q6H ??? meloxicam 15 mg Oral Daily ??? menthol (Topical Analgesic) 2.5% Topical Q6H ??? methocarbamol 250-500 mg Oral 4x Daily ??? pantoprazole 40 mg Oral QAM AC ??? polyethylene glycol 17 g Oral Daily ??? pregabalin 75 mg Oral TID ??? senna-docusate 1 tablet Oral BID Or ??? senna-docusate 2 tablet Oral BID ??? sertraline 25 mg Oral Daily ??? sodium chloride (PF) 3 mL Intracatheter Q8H GENERAL EXAMINATION: Height: 165.1 cm (5' 5) Temp: 98.2 ??F (36.8 ??C) Weight: 57.2 kg (126 lb 3.2 oz) Temp src: Oral BP: 129/76 Estimated body mass index is 21 kg/m?? as calculated from the following: Height as of this encounter: 1.651 m (5' 5). Weight as of this encounter: 57.2 kg (126 lb 3.2 oz). Resp: 17 SpO2: 97 % O2 Device: None (Room air) Blood Pressure: BP Readings from Last 3 Encounters: 04/18/22 129/76 09/04/21 (!) 156/104 04/14/20 136/86 T24??: Temp (24hrs), Av ??F (36.7 ??C), Min:97.7 ??F (36.5 ??C), Max:98.2 ??F (36.8 ??C) LABORATORY RESULTS SMA-7: Recent Labs Lab Test 04/16/22 1202 09/04/21 0945 NA 140 -- POTASSIUM 4.1 -- CHLORIDE 104 -- CO2 31 -- GLC 101* -- BUN 10 -- CR 0.78 0.9 OMARI 9.1 -- No results for input(s): MAG in the last 301[address] hours. No results for input(s): PHOS in the last 78078 hours.0.57 mg (actual weight) CMP: No lab results found in last 7 days. CBC: Recent Labs Lab 04/16/22 1202 WBC 5.4 RBC 4.88 HGB 15.3 HCT 44.8 MCV 92 PLT 260 No results for input(s): IRON, IRONSAT, RETICABSCT, RETP, FEB, BHARATH, FOLIC, EPOE, MORPH in the last 168 hours. U/A: Recent Labs Lab Test 04/16/22 1202 COLOR Straw APPEARANCE Clear URINEGLC Negative URINEBILI Negative URINEKETONE Negative SG 1.006 UBLD Negative URINEPH 7.0 PROTEIN Negative NITRITE Negative LEUKEST Negative RBCU <1 WBCU <1 No results found for: MICROALBUMIN, CREATCONC Cholesterol Panel: No results found for: CHOL, HDL, LDL, TRIG, CHOLHDLRATIO, VLDL Lipase: Lab Results Component Value Date LIPASE 70 12/22/2013 HgA1c: No results found for: A1C TSH: No results for input(s): TSH in the last 168 hours. CK: No results found for: CKTOTAL No results found for: CKTOTAL, CKMB, TROPN Ammonia: No lab results found. Vitamin B12: No lab results found. Homocysteine: No results found for: HOMOCYSTEINE Vitamin D: No results for input(s): VITDT in the last 168 hours. RPR: @LABALLVALUES(RPR:1)@ ESR: No lab results found. CRP: No results found for: CRP MANSI: No lab results found. ANCA: No lab results found. No results for input(s): NTBNPI, NTBNP in the last 168 hours. No lab results found in last 7 days. Invalid input(s): TROP, TROPONINIES Lab Results Component Value Date TROPI <0.012 12/23/2013 TROPI 0.022 12/22/2013 TROPI <0.012 12/22/2013 INR: No lab results found in last 7 days. ABG: No lab results found in last 7 days. Blood Cultures: No results for input(s): CULT in the last 168 hours. No results found for: CTYP No results found for: CSFPROTEIN No components found for: CGLU1 Depakote level: No lab results found. Dilantin Level: No lab results found. Phenobarbital Level: No lab results found. Lamotrigine Level: No lab results found. Lamotrigine Free Level: No lab results found. Tegretol level: No lab results found. Keppra Level: No lab results found. IMAGING RESULTS MR Brain w/o & w Contrast Result Date: 04/17/2022 MR BRAIN W/O & W CONTRAST 04/17/2022 12:09 PM INDICATION: Weakness of lower legs, loss of sensation, urinary incontinence, rule out MS TECHNIQUE: Noncontrast and contrast enhanced MRI of the brain. CONTRAST: 6 mL Gadavist COMPARISON: Brain MRI 05/10/2013 FINDINGS: There is no restricted diffusion. Paranasal sinuses are free from significant disease. Mastoid air cells appear free from significant disease. Intraorbital contents are unremarkable. Ventricles are within normal limits in size for the patient's age. Intracranial flow voids are intact. There is no mass effect, midline shift, or extraaxialcollection. There are scattered foci of T2/FLAIR hyperintensity within the cerebral white matter that are nonspecific. No evidence for acute or chronic intracranial blood products. IMPRESSION: 1. A few T2 hyperintense foci in the white matter are most commonly reflect gliosis related to prior ischemic or inflammatory insult. They are not typical of an underlying demyelinating disorder but are nonspecific. 2. No acute intracranial finding. No evidence for recent ischemia, intracranial hemorrhage, or mass. VIC MEYER MD SYSTEM ID: [id number] MR Cervical Spine w/o Contrast Result Date: 04/18/2022 MRI CERVICAL SPINE WITHOUT CONTRAST 04/18/2022 12:39 PM HISTORY: Cervical stenosis? Unexplained bilateral leg weakness. TECHNIQUE: Multiplanar, multisequence MRI of the cervical spine without contrast. COMPARISON: Cervical spine CT 03/15/2012. FINDINGS: Alignment is essentially within normal limits. Bone marrow demonstrates minimal degenerative endplate change most conspicuous surrounding the C5-C6 disc joint. No high-grade marrow edema. No convincing cord signal abnormality. No appreciable extraspinal abnormality. Presumed benign/reactive cystic change involving the partially visualized bilateral palat ine tonsils. Level by level as follows: C2-C3: Disc height maintained. Minimal central bulge. Normalfacet joints. No foraminal or spinal canal stenosis. C3-C4: Mild disc height loss. Shallow central bulge. Mild bilateral facet arthropathy. Mild if any right foraminal stenosis. No left foraminal stenosis. No spinal canal stenosis. C4-C5: Mild disc height loss. Shallow central protrusion. Mild bilateral facet arthropathy. No foraminal stenosis. Mild spinal canal stenosis. C5-C6: Mild disc height loss. Disc osteophyte complex. Mild bilateral facet arthropathy. Mild right foraminal stenosis related touncovertebral osteophyte. No left foraminal stenosis. Presumed left foraminal nerve root sleeve cyst. No spinal canal stenosis. C6-C7: Disc height maintained. No herniation. Mild bilateral facet arthropathy. No foraminal or spinal canal stenosis. Presumed bilateral nerve root sleeve cyst. C7-T1: Disc height maintained. No herniation. Mild bilateral facet arthropathy. No foraminal or spinal canal stenosis. Presumed left foraminal nerve root sleeve cyst. T1-T2: Subtle/shallow right central protrusion.No foraminal or spinal canal stenosis. IMPRESSION: 1. Mild degenerative change as detailed. 2. No high-grade stenoses. XAVIER GRACE MD MR Lumbar Spine w/o & w Contrast Result Date: 04/16/2022 MRI LUMBAR SPINE WITH AND WITHOUT CONTRAST April 16, 2022 1:03 PM HISTORY: Low back pain, bilateral radicular symptoms, saddle anesthesia, urinary retention. TECHNIQUE: Multiplanar multisequence MRI of the lumbar spine with and without contrast. A total of 6.5 mL of Gadavist was injected intravenously. COMPARISON: None. FINDINGS: A transitional lumbosacral segment is considered to be a sacralized L5. Alignment is significant for levoconvex curvature and multilevel subtle grade 1 spondylolisthesis. Bone marrow demonstrates mild degenerative endplate change most conspicuous surrounding the L4-L5 disc joint. Conus medullaris is unremarkable terminating at the level the T12-L1 disc. Cauda equina is unremarkable. Mild bilateral sacroiliac joint degenerative change. No convincing extraspinal abnormality.Segmental Analysis: T12-L1: Disc height maintained. No herniation. Normal facet joints. No foraminalor spinal canal stenosis. L1-L2: Disc height maintained. No herniation. Normal facet joints. No foraminal or spinal canal stenosis. L2-L3: Disc height maintained. No herniation. Normal facet joints. Noforaminal or spinal canal stenosis. L3-L4: Disc height maintained. No herniation. Normal facet joints. No foraminal or spinal canal stenosis. L4-L5: Mild disc height loss. Disc bulge with shallow central protrusion/annular fissure which demonstrates enhancement. Normal facet joints. No right foraminalstenosis. Mild if any left foraminal stenosis. No spinal canal stenosis. L5-S1: Sacralized L5 with small disc. No foraminal or spinal canal stenosis. IMPRESSION: 1. Mild disc height loss at L4-L5 with shallow central protrusion/annular fissure. 2. Nohigh-grade stenoses. XAVIER GRACE MD SYSTEM ID: [id number] MR Thoracic Spine w/o Contrast Result Date: 04/16/2022 EXAM: MR THORACIC SPINE W/O CONTRAST LOCATION: [facility] DATE/TIME: 25:22 PM INDICATION: Back pain; perineal numbness; urinary symptoms; weakness. COMPARISON: Chest CT from 09/04/2021. TECHNIQUE: Routine Thoracic Spine MRI without IV contrast. FINDINGS: Alignment is normal. No marrow edema. Several small scattered incidental vertebral body hemangiomas. Small chronic Schmorl's node along the superior T5 endplate is unchanged. No acute fracture. No significant canal narrowing or foraminal narrowing. No cord signal abnormality. Disc space heights are preserved. No definite extraspinal abnormality. IMPRESSION: 1. Mild cervical spondylosis. No acute fracture, canal, or foraminal narrowing. 2. No definite cord signal abnormality. Recent Results (from the past 24 hour(s)) MR Cervical Spine w/o Contrast Narrative MRI CERVICAL SPINE WITHOUT CONTRAST 04/18/2022 12:39 PM HISTORY: Cervical stenosis? Unexplained bilateral leg weakness. TECHNIQUE: Multiplanar, multisequence MRI of the cervical spine without contrast. COMPARISON: Cervical spine CT 03/15/2012. FINDINGS: Alignment is essentially within normal limits. Bone marrow demonstrates minimal degenerative endplate change most conspicuous surrounding the C5-C6 disc joint. No high-grade marrow edema. No convincing cord signal abnormality. No appreciable extraspinal abnormality. Presumed benign/reactive cystic change involving the partially visualized bilateral palatine tonsils. Level by level as follows: C2-C3: Disc height maintained. Minimal central bulge. Normal facet joints. No foraminal or spinal canal stenosis. C3-C4: Mild disc height loss. Shallow central bulge. Mild bilateral facet arthropathy. Mild if any right foraminal stenosis. No left foraminal stenosis. No spinal canal stenosis. C4-C5: Mild disc height loss. Shallow central protrusion. Mild bilateral facet arthropathy. No foraminal stenosis. Mild spinal canal stenosis. C5-C6: Mild disc height loss. Disc osteophyte complex. Mild bilateral facet arthropathy. Mild right foraminal stenosis related to uncovertebral osteophyte. No left foraminal stenosis. Presumed left foraminal nerve root sleeve cyst. No spinal canal stenosis. C6-C7: Disc height maintained. No herniation. Mild bilateral facet arthropathy. No foraminal or spinal canal stenosis. Presumed bilateral nerve root sleeve cyst. C7-T1: Disc height maintained. No herniation. Mild bilateral facet arthropathy. No foraminal or spinal canal stenosis. Presumed left foraminal nerve root sleeve cyst. T1-T2: Subtle/shallow right central protrusion. No foraminal or spinal canal stenosis. Impression IMPRESSION: 1. Mild degenerative change as detailed. 2. No high-grade stenoses. XAVIER GRACE MD Funmi Morgan PA-C - 04/17/2022 1:00 PM CDT [facility] Medicine Progress Note - Hospitalist Service Date of Admission: 04/16/2022 Assessment & Plan Alon Jaimes is a 46 year old male with a PMH significant for back injury in December 2021 resulting in chronic lower back pain with bilateral lower extremity pain/numbness/weakness who presents with intractable back pain with bilateral radiculopathy, urinary incontinence, perineal parathesia and d ifficulty walking. Patient has had multiple different evaluations for this back pain with visits to the emergency room in [place] and admission to [facility] in [place]. #Low back pain with bilateral radiculopathy, urinary incontinence, perineal paresthesia and bilateral leg weakness with difficulty walking -Reports original injury in December 2021 after slipping on ice and landing on his buttocks on concretewith pain developing 1 week later progressing to severe discomfort -Primarily describes constant achy/sharp pain across the low back with associated numbness and tingling down the posterior thighs/calves. Reports dribbling incontinence and perineal paresthesia. -Despite the severe symptoms MRI of the lumbar spine only shows mild disc protrusion at L4-L5 -Patient has been seen by multiple different ED providers, [facility] spine clinic (Dr. Romeo), physical medicine and rehab and our spine providers in the ED on 04/16 without any conclusive source of his pain -He has been treated with Tylenol, Robaxin, gabapentin, steroids, KHADAR's and narcotics without reliefof his pain (on chart review he has had a few prescriptions for narcotics given from different providers) -Ongoing allodynia of the lower back, significant weakness of the bilateral lower extremities and pain if asked to move them. Patient reports no sensation to sharp/dull or light touch on exam -spine surgery requested thoracic MRI which was negative so are deferring to neurology -unusual presentation as his lumbar MRI does not explain the severity of his pain nor does it explain the weakness/allodynia and inability to feel me pinching his legs -PT consulted and evaluated on 04/17, felt patient safe to discharge with use of cane and outpatient PT -MRI of brain on 04/17 shows a few T2 hyperintense foci in the white matter, most commonly reflect gliosis related to prior ischemic or inflammatory insult, not typical of an underlying demyelinating disorder but are nonspecific -Neurology consult pending, appreciate any further recommendations -Adjust multimodal pain regimen: scheduled Tylenol, stop Gabapentin due to causing vomiting and trial Lyrica 75 mg BID, Mobic with Protonix for GI prophylaxis, PRN Atarax, Oxycodone, and IV Dilaudid for severe pain (would limit if able) -discussed with patient that workup at this point has not revealed an underlying cause and he may discharge in the next day with pain control and outpatient f/u with neurosurgery for further discussionof treatment options -consider pain team consult in AM if ongoing uncontrolled pain ?? #Urinary incontinence -Patient states he is dribbling urine without any control and does not feel that he completely empties his bladder -no significant urinary retention with PVR bladder scans ?? #Hx of alcohol abuse -Now sober from all substances Diet: Regular Diet Adult DVT Prophylaxis: Low Risk/Ambulatory with no VTE prophylaxis indicated Mojica Catheter: Not present Central Lines: None Cardiac Monitoring: None Code Status: Full Code Disposition Plan Expected Discharge Date: 04/17/2022 The patient's care was discussed with the Bedside Nurse, Patient and Physical therapy Team. Funmi Morgan PA-C Hospitalist Service [facility] Securely message with the [employer] SMS Web Console (learn more here) Text page via [facility] Paging/Directory Clinically Significant Risk Factors Present on Admission Interval History Ongoing numbness and tingling from hips down, but worse below knees to feet. Patient reports swelling in his bilateral feet for the last month. Patient states pain is constant since his fall and that his legs just give out intermittently. Patient states that his symptoms are worse on his right side and has been limping with his right leg. Patient reports trying [id number] Tylenol, Aleve, multiple topical agents, heat alternating with ice with only mild improvement. He states overall he feels only slightly improved since admission and states his numbness/tingling is the same. Discussed resultsof thoracic and lumbar MRI with patient and that the findings do not correlate with his presentation. Discussed with physical therapy after evaluation and during assessment the patient had acute onset of nausea with an episode of emesis where he quickly got out of bed and was able to ambulate without difficulty to the bathroom. Data reviewed today: I reviewed all medications, new labs and imaging results over the last 24 hours. Physical Exam Vital Signs: Temp: 97.4 ??F (36.3 ??C) Temp src: Oral BP: 128/83 Pulse: 72 Resp: 18 SpO2: 97 % O2 Device: None (Room air) Weight: 126 lbs 3.2 oz GENERAL: Comfortable laying in bed. PSYCH: pleasant, oriented, No acute distress. HEENT: PERRLA. Normal conjunctiva, normal hearing, nasal mucosa and oropharynx are normal. NECK: Supple, no neck vein distention, adenopathy or bruits, normal thyroid. HEART: Normal S1, S2 with no murmur, no pericardial rub, gallops or S3 or S4. LUNGS: Clear to auscultation, normal respiratory effort. No wheezing, rales or ronchi. ABDOMEN: Soft, no hepatosplenomegaly, normal bowel sounds. Non-tender, non distended. EXTREMITIES: No pedal edema, +2 pulses bilateral and equal. SKIN: Dry to touch, No rash, wound or ulcerations. NEUROLOGIC: CN 2-12 intact, B/L strength 3/5, Sensation not intact - unable to feeling sharp/dull sensation or light touch from hips to feet, unable to endorse knee reflex on left or right. Patient unable to perform dorsiflexion of either ankle. Data Results for orders placed or performed during the hospital encounter of 04/16/22 MR Lumbar Spine w/o & w Contrast Status: None Narrative MRI LUMBAR SPINE WITH AND WITHOUT CONTRAST April 16, 2022 1:03 PM HISTORY: Low back pain, bilateral radicular symptoms, saddle anesthesia, urinary retention. TECHNIQUE: Multiplanar multisequence MRI of the lumbar spine with and without contrast. A total of 6.5 mL of Gadavist was injected intravenously. COMPARISON: None. FINDINGS: A transitional lumbosacral segment is considered to be a sacralized L5. Alignment is significant for levoconvex curvature and multilevel subtle grade 1 spondylolisthesis. Bone marrow demonstrates mild degenerative endplate change most conspicuous surrounding the L4-L5 disc joint. Conus medullaris is unremarkable terminating at the level the T12-L1 disc. Cauda equina is unremarkable. Mild bilateral sacroiliac joint degenerative change. No convincing extraspinal abnormality. Segmental Analysis: T12-L1: Disc height maintained. No herniation. Normal facet joints. No foraminal or spinal canal stenosis. L1-L2: Disc height maintained. No herniation. Normal facet joints. No foraminal or spinal canal stenosis. L2-L3: Disc height maintained. No herniation. Normal facet joints. No foraminal or spinal canal stenosis. L3-L4: Disc height maintained. No herniation. Normal facet joints. No foraminal or spinal canal stenosis. L4-L5: Mild disc height loss. Disc bulge with shallow central protrusion/annular fissure which demonstrates enhancement. Normal facet joints. No right foraminal stenosis. Mild if any left foraminal stenosis. No spinal canal stenosis. L5-S1: Sacralized L5 with small disc. No foraminal or spinal canal stenosis. Impression IMPRESSION: 1. Mild disc height loss at L4-L5 with shallow central protrusion/annular fissure. 2. No high-grade stenoses. XAVIER GRACE MD SYSTEM ID: [id number] MR Thoracic Spine w/o Contrast Status: None Narrative EXAM: MR THORACIC SPINE W/O CONTRAST LOCATION: [facility] DATE/TIME: 04/16/2022 5:22 PM INDICATION: Back pain; perineal numbness; urinary symptoms; weakness. COMPARISON: Chest CT from 09/04/2021. TECHNIQUE: Routine Thoracic Spine MRI without IV contrast. FINDINGS: Alignment is normal. No marrow edema. Several small scattered incidental vertebral body hemangiomas.Small chronic Schmorl's node along the superior T5 endplate is unchanged. No acute fracture. No significant canal narrowing or foraminal narrowing. No cord signal abnormality. Disc space heights are preserved. No definite extraspinal abnormality. Impression IMPRESSION: 1. Mild cervical spondylosis. No acute fracture, canal, or foraminal narrowing. 2. No definite cord signal abnormality. MR Brain w/o & w Contrast Status: None Narrative MR BRAIN W/O & W CONTRAST 04/17/2022 12:09 PM INDICATION: Weakness of lower legs, loss of sensation, urinary incontinence, rule out MS TECHNIQUE: Noncontrast and contrast enhanced MRI of the brain. CONTRAST: 6 mL Gadavist COMPARISON: Brain MRI 05/10/2013 FINDINGS: There is no restricted diffusion. Paranasal sinuses are free from significant disease. Mastoid air cells appear free from significant disease. Intraorbital contents are unremarkable. Ventricles are within normal limits in size for the patient's age. Intracranial flow voids are intact. There is no mass effect, midline shift, or extraaxial collection. There are scattered foci of T2/FLAIR hyperintensity within the cerebral white matter that are nonspecific. No evidence for acute or chronic intracranial blood products. Impression IMPRESSION: 1. A few T2 hyperintense foci in the white matter are most commonly reflect gliosis related to prior ischemic or inflammatory insult. They are not typical of an underlying demyelinating disorder but are nonspecific. 2. No acute intracranial finding. No evidence for recent ischemia, intracranial hemorrhage, or mass. VIC MEYER MD SYSTEM ID: [id number] Basic metabolic panel Status: Abnormal Result Value Ref Range Sodium 140 133 - 144 mmol/L Potassium 4.1 3.4 - 5.3 mmol/L Chloride 104 94 - 109 mmol/L Carbon Dioxide (CO2) 31 20 - 32 mmol/L Anion Gap 5 3 - 14 mmol/L Urea Nitrogen 10 7 - 30 mg/dL Creatinine 0.78 0.66 - 1.25 mg/dL Calcium 9.1 8.5 - 10.1 mg/dL Glucose 101 (H) 70 - 99 mg/dL GFR Estimate >90 >60 mL/min/1.73m2 UA with Microscopic reflex to Culture Status: Normal Specimen: Urine, Clean Catch Result Value Ref Range Color Urine Straw Colorless, Straw, Light Yellow, Yellow Appearance Urine Clear Clear Glucose Urine Negative Negative mg/dL Bilirubin Urine Negative Negative Ketones Urine Negative Negative mg/dL Specific [place] Urine 1.006 1.003 - 1.035 Blood Urine Negative Negative pH Urine 7.0 5.0 - 7.0 Protein Albumin Urine Negative Negative mg/dL Urobilinogen Urine Normal Normal, 2.0 mg/dL Nitrite Urine Negative Negative Leukocyte Esterase Urine Negative Negative RBC Urine <1 <=2 /HPF WBC Urine <1 <=5 /HPF Squamous Epithelials Urine <1 <=1 /HPF Narrative Urine Culture not indicated CBC with platelets and differential Status: None Result Value Ref Range WBC Count 5.4 4.0 - 11.0 10e3/uL RBC Count 4.88 4.40 - 5.90 10e6/uL Hemoglobin 15.3 13.3 - 17.7 g/dL Hematocrit 44.8 40.0 - 53.0 % MCV 92 78 - 100 fL MCH 31.4 26.5 - 33.0 pg MCHC 34.2 31.5 - 36.5 g/dL RDW 12.1 10.0 - 15.0 % Platelet Count 260 150 - 450 10e3/uL % Neutrophils 69 % % Lymphocytes 21 % % Monocytes 9 % % Eosinophils 0 % % Basophils 1 % % Immature Granulocytes 0 % NRBCs per 100 WBC 0 <1 /100 Absolute Neutrophils 3.7 1.6 - 8.3 10e3/uL Absolute Lymphocytes 1.1 0.8 - 5.3 10e3/uL Absolute Monocytes 0.5 0.0 - 1.3 10e3/uL Absolute Eosinophils 0.0 0.0 - 0.7 10e3/uL Absolute Basophils 0.0 0.0 - 0.2 10e3/uL Absolute Immature Granulocytes 0.0 <=0.4 10e3/uL Absolute NRBCs 0.0 10e3/uL Asymptomatic COVID-19 Virus (Coronavirus) by PCR Nasopharyngeal Status: Normal Specimen: Nasopharyngeal; Swab Result Value Ref Range SARS CoV2 PCR Negative Negative Narrative Testing was performed using the Xpert Xpress SARS-CoV-2 Assay on the [employer]. Additional information about this Emergency Use Authorization (EUA) assay can be found via the Lab Guide. This test should be ordered for the detection of SARS-CoV-2 in individuals who meet SARS-CoV-2 clinical and/or epidemiological criteria. Test performance is unknown in asymptomatic patients. This test is for in vitro diagnostic use under the FDA EUA for laboratories certified under CLIA to perform high complexity testing. This test has not been FDA cleared or approved. A negative result does not rule out the presence of PCR inhibitors in the specimen or target RNA in concentration below the limit of detection for the assay. The possibility of a false negative should be considered if the patient's recent exposure or clinical presentation suggests COVID-19. This test was validated by the [facility]. This laboratory is certified under the Clinical Laboratory Improvement Amendments of 1988 (CLIA-88) as qualified to perform high complexity laboratory testing. CBC with platelets differential Status: None Narrative The following orders were created for panel order CBC with platelets differential. Procedure Abnormality Status --------- ------ CBC with platelets and d...[[id number]] Final result Please view results for these tests on the individual orders. Naz Dobbins - 04/17/2022 10:58 AM CDT [facility] Progress Note RH OBS 2 Saw pt Alon Jaimes per admission request. Pt is Jewish. Assessed spiritual and emotional needs, provided reflective conversation and prayer. ??? Illness Narrative - Alon shared that he was admitted for back pain that he dates to an injury slipping on ice back in December. o He explained that the injury was severe enough to make him have to leave his job and is interfering with his ability to parent his two boys. ??? Distress - Alon shared that he has been feeling depressed. o He wants to be a good role model for his boys, but hasn't been able to do active, outdoor things with them. o He seems to have some regrets in his past, specifically mentioning his extensive tattoos. o Pt also mentioned feeling guilty for having to take time off his new job, which he just started three weeks ago. ??? Linus - Alon named his girlfriend as his biggest support. He appreciates her efforts to encourage him to take care of himself. maxwell Chi also relies on his neal in God. He is not currently connected to a christian, but shared that he talks to God a lot and has found a lot of comfort in his neal. o Pt welcomed prayer. maxwell Chi also shared that he likes being able to lay down outside to relax when the weather's not toohot. ??? Meaning-Making - Alon saw this hospital stay as a chance to figure out what's going on. o He is eager to get back to normal to be a good dad for his kids. ??? Alfredito - Alon requested prayer for his family and that the doctors would be able to figure out what's going on with his injury. Prayer provided and pt was grateful. o Informed pt how he can request a follow up lift driver visit. No further needs expressed at this time. DANETTE [employer] Head Welfare Administrator Thomas Duffy, PT - 04/17/2022 10:35 AM CDT 04/17/22 1019 Quick Adds Type of Visit Initial PT Evaluation Living Environment Living Environment Comments Pt lives in home with SO, reports no stairs to manage. Ind with mobilityat baseline. 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 Had trial OP PT, chiropractor to assist with pain. Self-Care Usual Activity Tolerance good Current Activity Tolerance moderate Equipment Currently Used at Home none Fall history within last six months yes Number of times patient has fallen within last six months 1 General Information Onset of Illness/Injury or Date of Surgery 04/16/22 Referring Physician Evette Morley PA-C Patient/Family Therapy Goals Statement (PT) To decrease pain Pertinent History of Current Problem (include personal factors and/or comorbidities that impact the POC) Per H&P, pt is a 46 year old male with a PMH significant for back injury in December 2021 resulting in chronic lower back pain with bilateral lower extremity pain/numbness/weakness who presents with intractable back pain with bilateral radiculopathy, urinary incontinence, perineal parathesia and difficulty walking. Cognition Affect/Mental Status (Cognition) anxious Orientation Status (Cognition) oriented x 4 Follows Commands (Cognition) WFL Pain Assessment Patient Currently in Pain Yes, see Vital Sign flowsheet (06/21 LBP) Range of Motion (ROM) ROM Comment decreased B LE ROM 2/2 pain; decreased spinal ROM d/t pain Strength (Manual Muscle Testing) Strength Comments functionally demonstrated >3/5 strength; reports unable to perform SLR during MMT, but able to demonstrated BLE SLR during functional supine to sit transfer Bed Mobility Comment, (Bed Mobility) SBA supine <> sit Transfers Comment, (Transfers) SBA sit <> stand without AD Gait/Stairs (Locomotion) Distance in Feet (Required for LE Total Joints) 16 Deviations/Abnormal Patterns (Gait) base of support, wide (flexed posturing) Comment, (Gait/Stairs) SBA Balance Balance Comments good sitting; good- standing w/o AD Sensory Examination Sensory Perception Comments Pt unable to report any sensation with light touch or sharp/dull; pt reports no feeling to B LE below hips- PA notified; normal testing above hips Coordination Coordination Comments pt reports unable to feel joint positioning with proprioception/kinesthetic testing of foot/ankle; no noted ataxia or difficulty with coordination with OOB mobility- appropriate placement of LEs throughout Muscle Tone Muscle Tone no deficits were identified Clinical Impression Criteria for Skilled Therapeutic Intervention Yes, treatment indicated PT Diagnosis (PT) impaired functional mobility Influenced by the following impairments pain; decreased LE sensation; impaired B LE ROM/strength Functional limitations due to impairments impaired bed mobility, transfers, ambulation Clinical Presentation (PT Evaluation Complexity) Evolving/Changing Clinical Presentation Rationale Current symptoms, functional status Clinical Decision Making (Complexity) low complexity Planned Therapy Interventions (PT) bed mobility training;balance training;cryotherapy;gait training;home exercise program;neuromuscular re- education;patient/family education;ROM (range of motion);streng thening;stretching;transfer training Anticipated Equipment Needs at Discharge (PT) cane, straight Risk & Benefits of therapy have been explained evaluation/treatment results reviewed;care plan/treatment goals reviewed;risks/benefits reviewed;current/potential barriers reviewed;participants voiced agreement with care plan;participants included;patient PT Discharge Planning PT Discharge Recommendation (DC Rec) home with outpatient physical therapy PT Rationale for DC Rec Patient would benefit from continued skilled PT in OP setting to address LBP. Pt limited in mobility during evaluation,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 spinal canal stenosis. ?? IMPRESSION: 1. Mild disc height loss at L4-L5 with shallow central protrusion/annular fissure. 2. No high-grade stenoses. ?? XAVIER GRACE MD CBC RESULTS: Recent Labs Lab Test 04/16/22 1202 WBC 5.4 RBC 4.88 HGB 15.3 HCT 44.8 MCV 92 MCH 31.4 MCHC 34.2 RDW 12.1 PLT 260 Basic Metabolic Panel: Lab Results Component Value Date NA 140 04/16/2022 NA 138 12/22/2013 Lab Results Component Value Date POTASSIUM 4.1 04/16/2022 POTASSIUM 3.6 12/22/2013 Lab Results Component Value Date CHLORIDE 104 04/16/2022 CHLORIDE 104 12/22/2013 Lab Results Component Value Date OMARI 9.1 04/16/2022 OMARI 9.1 12/22/2013 Lab Results Component Value Date CO2 31 04/16/2022 CO2 21 12/22/2013 Lab Results Component Value Date BUN 10 04/16/2022 BUN 10 12/22/2013 Lab Results Component Value Date CR 0.78 04/16/2022 CR 0.83 12/22/2013 Lab Results Component Value Date GLC 101 04/16/2022 GLC 94 12/22/2013 INR: No results found for: INR Associated attestation - Marin Butler MD - 04/16/2022 9:33 PM CDT Physician Attestation I, Marin Butler MD, saw and evaluated Alon Jaimes as part of a shared MANAGER WEB APPLICATION/PA visit. I personally reviewed the imaging. I personally performed the substantive portion of the medical decision making for this visit - please see the GIANA's documentation for full details. Guevara management decisions made by me and carried out under my direction: No pathology noted on MRI ofthe lumbar or thoracic spine consistent with patients exam. He is exquisitely sensitive to movement in lower extremities. Reflexes are normal with a sensory level in lower thoracic spine, roughly T10. No thoracic or lumbar pathology on mri to explain symptoms. Marin Butler MD Date of Service (when I saw the patient): 04/16/22 documented in this encounter ED Notes Natasha Galloway RN - 04/16/2022 6:42 PM CDT [facility] ED Nurse Handoff Report Alon Jaimes is a 46 year old male ED Chief complaint: Back Pain . ED Diagnosis: Final diagnoses: Acute bilateral low back pain with bilateral sciatica Leg weakness, bilateral Allergies: Allergies Allergen Reactions ??? Latex ??? Latex ??? Penicillin G Nausea and Vomiting ??? Penicillins Nausea and Vomiting ??? Toradol Hives ??? Tape [Adhesive Tape] Rash And skin breaks out. Code Status: Full Code Activity level - Baseline/Home: Independent. Activity Level - Current: Stand by Assist. Lift room needed: No. Bariatric: No Director Treasurer Needed: No Isolation: No. Infection: Not Applicable. Vital Signs: Vitals: 04/16/22 1615 04/16/22 1630 04/16/22 1714 04/16/22 1715 BP: Pulse: Resp: Temp: TempSrc: SpO2: 95% 100% 100% 99% Weight: Height: Cardiac Rhythm: , Pain level: Patient confused: No. Patient Falls Risk: Yes. Elimination Status: Has voided Patient Report - Initial Complaint: back pain with neurological changes. Focused Assessment: Alon Jimenez is a 46 year old male who presents for evaluation of back pain. The patient reports thatin mid December he slipped on ice injuring his back. Since that time, he has noted ongoing back pain, for which he has been seen and evaluated on multiple different occassions. He was admitted at [facility] between 01/23 and 01/24 at which time he had an MRI showing shallow central disc herniation at L5-S1 with facet arthritis and degenerative changes. Since then he has been following up with orthopedics in [place]. He has struggled with severe low back pain with numbness and tingling radiating down his bilateral legs to his feet and some dribbling incontinence of urine. He has had two epidural steroid injections performed through orthopedics without significant improvement of his pain. He has been takingGabapentin and a muscle relaxer without significant improvement. He feels that his symptoms have been progressively worsening, prompting him to come into the ED today. He was last seen in the ED at [facility] on 04/01 regarding this pain at which time he was prescribed Oxycodone, Gabapentin, andRobaxin. He denies any recent fever, chills, dysuria, hematuria, or urinary frequency. He denies anyrecent falls or trauma to the back. He denies any history of IV drug use. ?? MR Lumbar Spine w/o Contrast 01/23/22: 1. At L5-S1 there is a small shallow central disc herniation. No lateralization. 2. Mild left facet osteoarthritis at L5-S1. Minor disc degenerative changes at T12-L1 and L1-2. 3. No evidence for intrinsic pathology or extrinsic compression of the conus medullaris or cauda equina. ?? Review of Systems Constitutional: Negative for chills and fever. Genitourinary: Positive for enuresis. Negative for dysuria, frequency and hematuria. Musculoskeletal: Positive for back pain. Neurological: Positive for numbness. All other systems reviewed and are negative. 12:17 Neuro Cognitive J Details: Neuro Cognitive (Adult) - Cognitive/Neuro/Behavioral WDL: .WDL except Mood/Behavior: calm; cooperative Motor Strength - Left Upper Motor Strength: 4 - active movement against gravity and some resistance Right Upper Motor Strength: 4 - active movement against gravity and some resistance Left Lower Motor Strength: 4 - active movement against gravity and some resistance Right Lower Motor Strength: 4 - active movement against gravity and some resistance Sensory Assessment - Sensation - All Extremities: severe impairment (incontinent, difficulty feelingfull bladder, numbness) Cognitive - Follows Commands: yes Other flowsheet entries - Best Language: 0 - No aphasia Tests Performed: imaging. Abnormal Results: Labs Ordered and Resulted from Time of ED Arrival to Time of ED Departure BASIC METABOLIC PANEL - Abnormal Result Value Sodium 140 Potassium 4.1 Chloride 104 Carbon Dioxide (CO2) 31 Anion Gap 5 Urea Nitrogen 10 Creatinine 0.78 Calcium 9.1 Glucose 101 (*) GFR Estimate >90 ROUTINE UA WITH MICROSCOPIC REFLEX TO CULTURE - Normal Color Urine Straw Appearance Urine Clear Glucose Urine Negative Bilirubin Urine Negative Ketones Urine Negative Specific [place] Urine 1.006 Blood Urine Negative pH Urine 7.0 Protein Albumin Urine Negative Urobilinogen Urine Normal Nitrite Urine Negative Leukocyte Esterase Urine Negative RBC Urine <1 WBC Urine <1 Squamous Epithelials Urine <1 CBC WITH PLATELETS AND DIFFERENTIAL WBC Count 5.4 RBC Count 4.88 Hemoglobin 15.3 Hematocrit 44.8 MCV 92 MCH 31.4 MCHC 34.2 RDW 12.1 Platelet Count 260 % Neutrophils 69 % Lymphocytes 21 % Monocytes 9 % Eosinophils 0 % Basophils 1 % Immature Granulocytes 0 NRBCs per 100 WBC 0 Absolute Neutrophils 3.7 Absolute Lymphocytes 1.1 Absolute Monocytes 0.5 Absolute Eosinophils 0.0 Absolute Basophils 0.0 Absolute Immature Granulocytes 0.0 Absolute NRBCs 0.0 MR Thoracic Spine w/o Contrast Final Result IMPRESSION: 1. Mild cervical spondylosis. No acute fracture, canal, or foraminal narrowing. 2. No definite cord signal abnormality. MR Lumbar Spine w/o & w Contrast Final Result IMPRESSION: 1. Mild disc height loss at L4-L5 with shallow central protrusion/annular fissure. 2. No high-grade stenoses. XAVIER GRACE MD SYSTEM ID: [id number] . Treatments provided: pain control Family Comments: significant other at bedside OBS brochure/video discussed/provided to patient: Yes ED Medications: Medications Lidocaine (LIDOCARE) 4 % Patch 1 patch (1 patch Transdermal Not Given 04/16/22 1551) HYDROmorphone (PF) (DILAUDID) injection 0.5 mg (0.5 mg Intravenous Given 04/16/22 1202) gadobutrol (GADAVIST) injection 6.5 mL (6.5 mLs Intravenous Given 04/16/22 1231) HYDROmorphone (PF) (DILAUDID) injection 0.5 mg (0.5 mg Intravenous Given 04/16/22 1321) oxyCODONE (ROXICODONE) tablet 5 mg (5 mg Oral Given 04/16/22 1619) Drips infusing: No For the majority of the shift, the patient's behavior Green. Interventions performed were n/a. Sepsis treatment initiated: No Patient tested for COVID 19 prior to admission: YES ED Nurse Name/Phone Number: Anastasia Morley RN, 6:42 PM RECEIVING UNIT ED HANDOFF REVIEW Above ED Nurse Handoff Report was reviewed: Yes Reviewed by: Natasha Galloway RN on April 16, 2022 at 10:12 PM Anastasia Morley RN - 04/16/2022 6:22 PM CDT Pt updated on MRI and status of care. Pt requesting pain medicine. MD Ragland updated Paul Bojorquez RN - 04/16/2022 10:34 AM CDT In December, patient slipped and fell and hurt his back. Has a ruptured disc. Numbness through groin and both legs. Dribbling on self when urinating. Back pain getting worse. Darron Heredia MD - 04/16/2022 10:32 AM CDT History Chief Complaint: Back Pain HPI Alon Anthony IreneTheodore is a 46 year old male who presents for evaluation of back pain. The patient reports that in mid December he slipped on ice injuring his back. Since that time, he has noted ongoing backpain, for which he has been seen and evaluated on multiple different occassions. He was admitted at [facility] between 01/23 and 01/24 at which time he had an MRI showing shallow central disc herniation at L5-S1 with facet arthritis and degenerative changes. Since then he has been following up with orthopedics in [place]. He has struggled with severe low back pain with numbness and tingling radiating downhis bilateral legs to his feet and some dribbling incontinence of urine. He has had two epidural steroid injections performed through orthopedics without significant improvement of his pain. He has been taking Gabapentin and a muscle relaxer without significant improvement. He feels that his symptoms have been progressively worsening, prompting him to come into the ED today. He was last seen in the ED at [facility] on 04/01 regarding this pain at which time he was prescribed Oxycodone, Gabapentin, and Robaxin. He denies any recent fever, chills, dysuria, hematuria, or urinary frequency. He denies any recent falls or trauma to the back. He denies any history of IV drug use. MR Lumbar Spine w/o Contrast 01/23/22: 1. At L5-S1 there is a small shallow central disc herniation. No lateralization. 2. Mild left facet osteoarthritis at L5-S1. Minor disc degenerative changes at T12-L1 and L1-2. 3. No evidence for intrinsic pathology or extrinsic compression of the conus medullaris or cauda equina. Review of Systems Constitutional: Negative for chills and fever. Genitourinary: Positive for enuresis. Negative for dysuria, frequency and hematuria. Musculoskeletal: Positive for back pain. Neurological: Positive for numbness. All other systems reviewed and are negative. Allergies: Penicillins Toradol Tramadol Ketorolac Gadolinium-containing contrast media Medications: Tylenol Zoloft Gabapentin Mobic Past Medical History: Depression Anxiety ADHD Kidney stone Past Surgical History: Shoulder separation repair Decompression of median nerve Rotator cuff repair Family History: Asthma - Mother Social History: The patient presents to the ED alone. Physical Exam Patient Vitals for the past 24 hrs: BP Temp Temp src Pulse Resp SpO2 Height Weight 04/16/22 1630 -- -- -- -- -- 100 % -- -- 04/16/22 1615 -- -- -- -- -- 95 % -- -- 04/16/22 1600 -- -- -- -- -- 100 % -- -- 04/16/22 1545 -- -- -- -- -- 99 % -- -- 04/16/22 1530 -- -- -- -- -- 94 % -- -- 04/16/22 1515 -- -- -- -- -- 99 % -- -- 04/16/22 1513 -- -- -- -- -- 97 % -- -- 04/16/22 1512 -- -- -- -- -- 99 % -- -- 04/16/22 1511 -- -- -- -- -- 98 % -- -- 04/16/22 1445 -- -- -- -- -- 100 % -- -- 04/16/22 1430 -- -- -- -- -- 99 % -- -- 04/16/22 1415 -- -- -- -- -- 98 % -- -- 04/16/22 1400 -- -- -- -- -- 99 % -- -- 04/16/22 1345 -- -- -- -- -- 98 % -- -- 04/16/22 1330 -- -- -- -- -- 99 % -- -- 04/16/22 1230 -- -- -- -- -- 96 % -- -- 04/16/22 1215 (!) 160/91 -- -- 71 -- 92 % -- -- 04/16/22 1209 -- -- -- -- -- 97 % -- -- 04/16/22 1208 -- -- -- -- -- 97 % -- -- 04/16/22 1206 -- -- -- -- -- -- 1.651 m (5' 5) 65.8 kg (145 lb) 04/16/22 1036 (!) 152/101 98.3 ??F (36.8 ??C) Temporal 84 20 100 % -- -- Physical Exam General: Well-nourished Speaking in full sentences Eyes: Conjunctiva without injection or scleral icterus PERRL ENT: Moist mucous membranes Posterior oropharynx clear without erythema or exudate Neck: Full ROM No stiffness appreciated Resp: Lungs CTAB No crackles, wheezing or audible rubs Good air movement CV: Normal rate, regular rhythm S1 and S2 present No murmur, gallop or rub GI: BS present Abdomen soft without distention Non-tender to light and deep palpation No palpable pulsatile abdominal mass No guarding or rebound tenderness Skin: Warm, dry, well perfused No rashes or open wounds on exposed skin MSK: Midline lumbar spine tenderness present Paraspinal musculature tenderness present to bilateral lumbar region Palpable spasm absent Sacroiliac joint tenderness absent Overlying skin changes absent No palpable fluctuance over the spine Neuro: Alert 3/5 ankle dorsi/plantarflexion bilaterally 3/5 hip flexion bilaterally Decreased sensation to light touch in BLE 2+ patellar, Achilles reflexes bilaterally No clonus at the ankles Able to ambulate independently in the room Psych: Normal affect, normal mood Emergency Department Course Imaging: MR Lumbar Spine w/o & w Contrast Final Result IMPRESSION: 1. Mild disc height loss at L4-L5 with shallow central protrusion/annular fissure. 2. No high-grade stenoses. XAVIER GRACE MD SYSTEM ID: [id number] MR Thoracic Spine w/o Contrast (Results Pending) Report per radiology Laboratory: Labs Ordered and Resulted from Time of ED Arrival to Time of ED Departure BASIC METABOLIC PANEL - Abnormal Result Value Sodium 140 Potassium 4.1 Chloride 104 Carbon Dioxide (CO2) 31 Anion Gap 5 Urea Nitrogen 10 Creatinine 0.78 Calcium 9.1 Glucose 101 (*) GFR Estimate >90 ROUTINE UA WITH MICROSCOPIC REFLEX TO CULTURE - Normal Color Urine Straw Appearance Urine Clear Glucose Urine Negative Bilirubin Urine Negative Ketones Urine Negative Specific [place] Urine 1.006 Blood Urine Negative pH Urine 7.0 Protein Albumin Urine Negative Urobilinogen Urine Normal Nitrite Urine Negative Leukocyte Esterase Urine Negative RBC Urine <1 WBC Urine <1 Squamous Epithelials Urine <1 CBC WITH PLATELETS AND DIFFERENTIAL WBC Count 5.4 RBC Count 4.88 Hemoglobin 15.3 Hematocrit 44.8 MCV 92 MCH 31.4 MCHC 34.2 RDW 12.1 Platelet Count 260 % Neutrophils 69 % Lymphocytes 21 % Monocytes 9 % Eosinophils 0 % Basophils 1 % Immature Granulocytes 0 NRBCs per 100 WBC 0 Absolute Neutrophils 3.7 Absolute Lymphocytes 1.1 Absolute Monocytes 0.5 Absolute Eosinophils 0.0 Absolute Basophils 0.0 Absolute Immature Granulocytes 0.0 Absolute NRBCs 0.0 Emergency Department Course: Reviewed: I reviewed nursing notes, vitals and past medical history Assessments: 1135: I obtained history and examined the patient as noted above. 1352: I updated and reassessed the patient. 1456: I updated and reassessed the patient. 1600: Neurosurgery evaluated the patient in the room. 1635: I updated and reassessed the patient. Consults: 1507: I spoke with Natacha Hess NP of the neurosurgery service regarding patient's presentation, findings, and plan of care. 1610: I spoke to neurosurgery regarding the patient's evaluation. They have recommended MRI of the T-spine Interventions: 1202 Dilaudid 0.5 mg IV 1321 Dilaudid 0.5 mg IV 1619 Oxycodone 5 mg PO Disposition: Care of the patient was transferred to my colleague Dr. Ragland pending MRI results. Anticipate observation and formal neurology evaluation. Impression & Plan Medical Decision Making: Alon Jaimes is a 46-year-old male presenting to the ED for evaluation of low back pain, leg numbness, weakness, and urinary symptoms. VS on presentation reveal elevated BP although otherwise are unremarkable, including absence of fever. History is obtained from the patient, and supplemented by chart review, including visit to the ED at [facility] on 04/01/2022, 02/18/2022, 02/10/2022 at [facility], as well as hospital admission at [facility] on 01/23- for low back pain, radicular symptoms as well as urinary dribbling. He presents to the ED today for ongoing symptoms. He denies interval trauma, nor does he report constitutional symptoms. Specifically, denies fevers, chills, underlying immunocompromising conditions, history of IV drug use, nor diabetes/tobacco use. Initial work-up included MRI of the lumbar spine. This demonstrates mild disc height loss at L4-5 with shallow central protrusion/annular fissure, though no other high-grade stenosis, or signs to suggest conus medullaris/cauda equina syndrome. Laboratory evaluation reveals unremarkable CBC, metabolic function, and unremarkable UA. I subsequently discussed the case with neurosurgery, who have graciously seenand evaluated the patient at bedside. Please refer to their associated documentation. They have recommended further evaluation with MRI of the thoracic spine. This is currently pending. At this time, patient will be signed out to my partner, Dr. Ragland, pending results of the MRI of the thoracic spine. Should this return negative, other etiologies may need to be considered including processes such as transverse myelitis, ascending polyneuropathy (Guillain-Darling??), among others. As such, do feel patient may require hospital observation and formal neurology consultation. Some features of his symptoms are atypical for Guillain-Darling?? given the presence of preserved reflexes, as well as given the temporal course of his symptoms on the order of 3 months. Functional etiologies on the differential as well. Patient was provided the above analgesia, and feeling improvements in symptoms. Questions have been answered to the patient prior to transfer of care to my partner. Diagnosis: ICD-10-CM 1. Acute bilateral low back pain with bilateral sciatica M54.42 M54.41 2. Leg weakness, bilateral R29.898 Scribe Disclosure: I, Christopher Adams, am serving as a scribe at 11:22 AM on 04/16/2022 to document services personally performed by Darron Heredia MD based on my observations and the provider's statements to me. Darron Heredia MD 04/16/22 2330 Daniel Ragland MD - 04/16/2022 10:32 AM CDT Patient taken in handoff from Yan. MRI lumbar spine ok by him and NSG plan for report on Thoracic that was nondiaganostic and NSG agrees so continued with plan for admit for pain control and for neurology consult as inpt. Pt and agreeable and pt feeling up to eating mcd[employer] upon my visit which I found reassuring. No change or deterioration in exam or appearance. Hospitalist accepted for admit. Daniel Ragland MD 04/16/222058 documented in this encounter Miscellaneous Notes Plan of Care - Eleonora Cartagena RN - 04/18/2022 6:32 PM CDT Pt to D/C to home with ariana. Pt provided with d/c instructions, including new medications, when medications were last given, and when to take them again. Pt also informed to f/u with , referrals made for pain clinic and therapy. Pt verbalized understanding of all d/c and f/u instructions. All questions were answered at this time. Copy of paperwork sent with pt. Medications sent with pt. Ariana to provide transport. All personal belongings sent with pt. Eleonora Cartagena RN on 04/18/2022 at 6:35 PM Plan of Care - Makenzie Mari PT - 04/18/2022 6:32 PM CDT Physical Therapy Discharge Summary Reason for therapy discharge: Discharged to home with family assist. Progress towards therapy goal(s). See goals on Care Plan in Epic electronic health record for goal details. Goals partially met. Barriers to achieving goals: discharge from facility. Therapy recommendation(s): Patient to discharge home with family. Treating PT did recommend follow-up with OP PT to address continued low back pain. Utilization Review - Soni Hampton MD - 04/18/2022 4:15 PM CDT Admission Status; Secondary Review Determination Admission Date: 04/16/2022 11:09 AM Under the authority of the Utilization Management Committee, the utilization review process indicated a secondary review on the above patient. The review outcome is based on review of the medical records, discussions with staff, and applying clinical experience noted on the date of the review. (x) Observation Status Appropriate - This patient does not meet hospital inpatient criteria and is placed in observation status. If this patient's primary payer is Medicare and was admitted as an inpatient, Condition Code 44 should be used and patient status changed to observation. RATIONALE FOR DETERMINATION Brief clinical presentation, information copied from the chart, abbreviated and edited for relevant content: Alon Jaimes is a 46 year old male who was admitted on 04/16/2022 for acute on subacute radicular low back pain.C-spine MRI shows mild central canal narrowing in the mid-C-spine but without evidence of cord compression and intrinsic cord pathology. Neurology consult recommended supportive care for the pain at this time. Seen by pain service with opioids, PT, and Nonopioid treatment recommended. Consider review tomorrow if unable to discharge. The severity of illness, intensity of cares provided, risk for adverse outcome, and expected LOS make the care appropriate for observation. The information on this document is developed by the utilization review team in order for the business office to ensure compliance. This only denotes the appropriateness of proper admission status and does not reflect the quality of care rendered. The definitions of Inpatient Status and Observation Status used in making the determination above are those provided in the CMS Coverage Manual, Chapter 1 and Chapter 6, section 70.4. Sincerely, Soni Hampton MD Utilization Review/ Case Management [facility]. Plan of Care - Farhat Millard RN - 04/18/2022 3:16 PM CDT PRIMARY DIAGNOSIS: BLE weakness, pain OUTPATIENT/OBSERVATION GOALS TO BE MET BEFORE DISCHARGE: 1. ADLs back to baseline: No 2. Activity and level of assistance: Up with standby assistance. 3. Pain status: Pain mildly improved. Continue to follow with pain team. 4. Return to near baseline physical activity: No; Pain with activity, slightly unsteady. Chief Service Dispatcher Nurse Safe discharge environment identified: Yes Barriers to discharge: Yes; symptoms management. Entered by: Farhat Loera RN 04/18/2022 3:16 PM Oriented X4, Numbness and tinging on both extremities, no sense of feeling on both lower extremities, pain with activity. Bladder sensation significantly diminished. Able to void. Pain not well controlled, pain consult completed. Continuing to monitor effectiveness of regimen. Up stand by assist. MRIcomplete, see results. Discharge plan TBD. Please review provider order for any additional goals. Nurse to notify provider when observation goals have been met and patient is ready for discharge. Plan of Care - Farhat Millard RN - 04/18/2022 11:37 AM CDT PRIMARY DIAGNOSIS: BLE weakness, pain OUTPATIENT/OBSERVATION GOALS TO BE MET BEFORE DISCHARGE: ADLs back to baseline: No Activity and level of assistance: Up with standby assistance. Pain status: No improvement noted. Consider adjustment in pain regimen. Return to near baseline physical activity: No; Pain with activity, slightly unsteady. Chief Service Dispatcher Nurse Safe discharge environment identified: Yes Barriers to discharge: Yes; symptoms management. Entered by: Farhat Loera RN 04/18/2022 11:38 AM Oriented X4, Numbness and tinging on both extremities, no sense of feeling on both lower extremities, pain with activity. Bladder sensation significantly diminished. Able to void, PVR is negative, perprovider okay to stop. Pain not well controlled, pain consult to be performed. Up stand by assist. MRI to be completed. Discharge plan TBD. Please review provider order for any additional goals. Nurse to notify provider when observation goals have been met and patient is ready for discharge. Plan of Care - Gerald Bhatt - 04/18/2022 4:16 AM CDT PRIMARY DIAGNOSIS: Low back pain OUTPATIENT/OBSERVATION GOALS TO BE MET BEFORE DISCHARGE: 1. Pain Status: Improved-controlled with oral pain medications. 2. Return to near baseline physical activity: Yes 3. Cleared for discharge by consultants (if involved): No Chief Service Dispatcher Nurse Safe discharge environment identified: Yes Barriers to discharge: Yes Entered by: Gerald Bhatt 04/18/2022 3:16 AM Vitals are Temp: 98 ??F (36.7 ??C) Temp src: Oral BP: (!) 143/99 Pulse: 53 Resp: 18 SpO2: 95 %. Patient is Alert and Oriented x4. Up SBA. On a regular diet. Reported 10/10 low back pain, 10 mg oxygiven. Seen by Neurosurgery. PT recommended home with outpatient PT. Neuro following. Has MRI cervical spine ordered to be completed 04/18 after noon. Resting in bed. Please review provider order for any additional goals. Nurse to notify provider when observation goals have been met and patient is ready for discharge. Plan of Care - Gerald Bhatt - 04/18/2022 12:10 AM CDT PRIMARY DIAGNOSIS: Low back pain OUTPATIENT/OBSERVATION GOALS TO BE MET BEFORE DISCHARGE: 1. Pain Status: Improved-controlled with oral pain medications. 2. Return to near baseline physical activity: Yes 3. Cleared for discharge by consultants (if involved): No Chief Service Dispatcher Nurse Safe discharge environment identified: Yes Barriers to discharge: Yes Entered by: Gerald Bhatt 04/18/2022 1:01 AM Vitals are Temp: 98.1 ??F (36.7 ??C) Temp src: Oral BP: 124/71 Pulse: 76 Resp: 18 SpO2: 99 %. Patient is Alert and Oriented x4. Up SBA. On a regular diet. Reported 10/10 low back pain after up to restroom. Declined pain interventions at this time. PVR of 27 mL after voiding. PIV SL. Pt reports ongoing numbness/tingling/loss of sensation to BLE. Seen by Neurosurgery. PT recommended home with outpatient PT. Neuro following. Has MRI cervical spine ordered to be completed 04/18 after noon. Resting in bed. Please review provider order for any additional goals. Nurse to notify provider when observation goals have been met and patient is ready for discharge. Plan of Care - Vashti Hinds RN - 04/17/2022 8:00 PM CDT PRIMARY DIAGNOSIS: INTRACTABLE LOWER BACK PAIN OUTPATIENT/OBSERVATION GOALS TO BE MET BEFORE DISCHARGE: 1. Pain Status: Improved but still requiring IV narcotics. 2. Return to near baseline physical activity: No 3. Cleared for discharge by consultants (if involved): No Chief Service Dispatcher Nurse Safe discharge environment identified: Yes Barriers to discharge: Yes Entered by: Vashti Hinds RN 04/17/2022 Please review provider order for any additional goals. Nurse to notify provider when observation goals have been met and patient is ready for discharge. A/O x4. VSS on RA ex hypertensive at times d/t pain. Assist of 1x with GB. Tolerating regular diet. Lung sounds clear. Bowel sounds active. Passing flatus. - BM. Adequate urine output via bedside urinal, dribbling continued. Skin intact. BLE N/T. Prn oxycodone, dilaudid, and KPAD used for pain control, atarax available. Emesis x1 this shift, pt declined any need for medication interventions. PT and Neurology consulted. Plan for MRI of brain tomorrow afternoon. Plan of Care - Vashti Hinds RN - 04/17/2022 7:17 PM CDT MRI called and they are unable to complete MRI of brain tonight since pt already received IV contrast today with previous MRI. Will plan on completing brain MRI tomorrow anytime after 1200. Vashti Hinds RN on 04/17/2022 at 7:18 PM Plan of Care - Vashti Hinds RN - 04/17/2022 4:00 PM CDT PRIMARY DIAGNOSIS: INTRACTABLE LOWER BACK PAIN OUTPATIENT/OBSERVATION GOALS TO BE MET BEFORE DISCHARGE: 1. Pain Status: Improved but still requiring IV narcotics. 2. Return to near baseline physical activity: No 3. Cleared for discharge by consultants (if involved): No Chief Service Dispatcher Nurse Safe discharge environment identified: Yes Barriers to discharge: Yes Entered by: Vashti Hinds RN 04/17/2022 Please review provider order for any additional goals. Nurse to notify provider when observation goals have been met and patient is ready for discharge. A/O x4. VSS on RA ex hypertensive at times d/t pain. Assist of 1x with GB. Tolerating regular diet. Lung sounds clear. Bowel sounds active. Passing flatus. - BM. Adequate urine output via bedside urinal, dribbling continued. Skin intact. BLE N/T. Prn oxycodone, dilaudid, and KPAD used for pain control. Emesis x1, pt declined any need for medication interventions. PT and Neurology consulted. Plan of Care - Vashti Hinds RN - 04/17/2022 12:00 PM CDT PRIMARY DIAGNOSIS: INTRACTABLE LOWER BACK PAIN OUTPATIENT/OBSERVATION GOALS TO BE MET BEFORE DISCHARGE: 1. Pain Status: Improved but still requiring IV narcotics. 2. Return to near baseline physical activity: No 3. Cleared for discharge by consultants (if involved): No Chief Service Dispatcher Nurse Safe discharge environment identified: Yes Barriers to discharge: Yes Entered by: Vashti Hinds RN 04/17/2022 Please review provider order for any additional goals. Nurse to notify provider when observation goals have been met and patient is ready for discharge. A/O x4. VSS on RA ex hypertensive at times d/t pain. Assist of 1x with GB. Tolerating regular diet. Lung sounds clear. Bowel sounds active. Passing flatus. - BM. Adequate urine output via bedside urinal, dribbling continued. Skin intact. BLE N/T. Prn oxycodone, dilaudid, and KPAD used for pain control. Emesis x1, pt declined any need for medication interventions. PT and Neurology consulted. Plan of Care - Vashti Hinds RN - 04/17/2022 8:00 AM CDT PRIMARY DIAGNOSIS: INTRACTABLE LOWER BACK PAIN OUTPATIENT/OBSERVATION GOALS TO BE MET BEFORE DISCHARGE: 1. Pain Status: Improved but still requiring IV narcotics. 2. Return to near baseline physical activity: No 3. Cleared for discharge by consultants (if involved): No Chief Service Dispatcher Nurse Safe discharge environment identified: Yes Barriers to discharge: Yes Entered by: Vashti Hinds RN 04/17/2022 Please review provider order for any additional goals. Nurse to notify provider when observation goals have been met and patient is ready for discharge. A/O x4. VSS on RA ex hypertensive at times d/t pain. Assist of 1x with GB. Tolerating regular diet. Lung sounds clear. Bowel sounds active. Passing flatus. - BM. Adequate urine output via bedside urinal, dribbling continued. Skin intact. BLE N/T. Prn oxycodone, dilaudid, and KPAD used for pain control. Emesis x1, pt declined any need for medication interventions. PT and Neurology consulted. Plan of Care - Zulema Sam RN - 04/17/2022 5:00 AM CDT PRIMARY DIAGNOSIS: CHRONIC LOW BACK PAIN. OUTPATIENT/OBSERVATION GOALS TO BE MET BEFORE DISCHARGE: 1. Pain Status: Improved but still requiring IV narcotics. 2. Return to near baseline physical activity: No 3. Cleared for discharge by consultants (if involved): No Chief Service Dispatcher Nurse Safe discharge environment identified: Yes Barriers to discharge: Yes Entered by: Zulema Sam RN 04/17/2022 5:00 AM Pt alert and oriented X 4, lung sounds clear, abdominal sounds present X 4. Last BM reported 04/16/22.Pt ambulate with SBA. Pt reported low back pain 9-10/10 on pain scale. PRN Dilaudid given. Pt refused Ice/hot back. Pt ambulate to the bathroom with SBA. Pt reported feeling numbness and tingling sensation on BLE. Pt reported unable to feel upon touching his legs/feet. Pt void 400 ml in urinal. PVD 100 ml. Tolerated oral intake. Will continue to monitor. Please review provider order for any additional goals. Nurse to notify provider when observation goals have been met and patient is ready for discharge. Plan of Care - Zulema Sam RN - 04/17/2022 1:26 AM CDT PRIMARY DIAGNOSIS: CHRONIC LOW BACK PAIN. OUTPATIENT/OBSERVATION GOALS TO BE MET BEFORE DISCHARGE: 1. Pain Status: Improved but still requiring IV narcotics. 2. Return to near baseline physical activity: No 3. Cleared for discharge by consultants (if involved): No Chief Service Dispatcher Nurse Safe discharge environment identified: Yes Barriers to discharge: Yes Entered by: Zulema Sam RN 04/17/2022 1:26 AM Pt alert and oriented X 4, lung sounds clear, abdominal sounds present X 4. Last BM reported 04/16/22.Pt ambulate with SBA. Pt reported low back pain 9-10/10 on pain scale. PRN Dilaudid given. Pt refused Ice/hot back. Pt ambulate to the bathroom with SBA. Pt reported feeling numbness and tingling sensation on BLE. Will continue to monitor. Please review provider order for any additional goals. Nurse to notify provider when observation goals have been met and patient is ready for discharge. Provider Notification - Zulema Sam RN - 04/16/2022 11:36 PM CDT Pt continue to report low back pain 10/10. Stated Morphaine not helping. Oxy help some. Plan of Care - Natasha Galloway RN - 04/16/2022 10:42 PM CDT ROOM # 213-2 Living Situation (if not independent, order SW consult): Home with girlfriend Facility name: personal injury litigation paralegal: shoshana Espinoayo Activity level at baseline: Ind/Sba Activity level on admit: Sba Who will be transporting you at discharge: girlfriend Patient registered to observation; given Patient Bill of Rights; given the opportunity to ask questions about observation status and their plan of care. Patient has been oriented to the observation room, bathroom and call light is in place. Discussed discharge goals and expectations with patient/family. Pharmacy-Admission Medication History - Marky Rust RPH - 04/16/2022 10:13 PM CDT Admission medication history interview status for this patient is complete. See [facility] admission navigator for allergy information, prior to admission medications and immunization status. Medication history interview done, indicate source(s): Patient Medication history resources (including written lists, pill bottles, clinic record): [facility]: [facility] ok for discharge, otherwise [facility] Changes made to LEGAL NURSE CONSULTANT medication list: Added: Adderall, gabapentin, tizanidine Changed: none Reported as Not Taking: n/a Removed: oxycodone Actions taken by pharmacist (provider contacted, etc):None Additional medication history information: - Only Adderall and gabapentin are long-term meds, the tizanidine was new about a week ago - on 04/02 multiple new Rx at small quantities and pt ran out several days ago (oxycodone, diazepam, Robaxin, and also extra gabapentin) Medication reconciliation/reorder completed by provider prior to medication history? N (Y/N) Prior to Admission medications Medication Sig Last Dose Taking? Auth Provider Selling Underwriter End Date amphetamine-dextroamphetamine (ADDERALL) 10 MG tablet Take 10 mg by mouth daily 04/16/2022 at am Yes Unknown, Entered By History gabapentin (NEURONTIN) 100 MG capsule Take 500 mg by mouth 3 times daily 04/15/2022 at pm Yes Unknown,Entered By History Yes tiZANidine (ZANAFLEX) 4 MG tablet Take 4 mg by mouth 3 times daily as needed for muscle spasms 04/15/2022 at pm Yes Unknown, Entered By History documented in this encounter Plan of Treatment Scheduled Referrals Name Type Priority Associated Diagnoses Order S chedule Pain Management Referral Priority: 1-2 Acute bilateral low Expe cted: Referral Weeks back pain with 04/25/2022 bilateral sciati ca (Approximate), Leg weakness, Expires: bilateral 04/18/2023 Anxiety Attention deficit hyperactivity disorder (ADHD), predominantly hyperactive type Pain Management Referral Routine: Next Acute bilateral low Expe cted: Referral available opening back pain with 04/18/20 bilateral sciatica (Approxim ate), Expires: 04/18/2023 Adult Mental Health Referral Routine: Next Acute bilateral low 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 DRUG ABUSE SCREEN 77 Routine 04/18/2022 4:05 PM R esults for this URINE (FL, RH, SH) CDT procedure are in the results section. MR CERVICAL SPINE W/O Routine 04/18/2022 12:39 Re sults for this CONTRAST PM CDT procedure are i n the results section. MR BRAIN W/O & W Routine 04/17/2022 12:09 Results for this CONTRAST PM CDT procedure are i n the results section. COVID-19 VIRUS STAT 04/16/2022 6:58 PM Results for this (CORONAVIRUS) BY PCR CDT procedu re are in the results section. MR THORACIC SPINE W/O STAT 04/16/2022 5:47 PM Results for this CONTRAST CDT procedure are i n the results section. MR LUMBAR SPINE W/O & STAT 04/16/2022 1:03 PM Results for this W CONTRAST CDT procedure are i n the results section. CBC WITH PLATELETS STAT 04/16/2022 12:02 Resul ts for this AND DIFFERENTIAL PM CDT procedure a re in the results section. ROUTINE UA WITH STAT 04/16/2022 12:02 Results for this MICROSCOPIC REFLEX TO PM CDT proced ure are in CULTURE the results section. CBC WITH PLATELETS & STAT 04/16/2022 12:02 Res ults for this DIFFERENTIAL PM CDT procedure are i n the results section. BASIC METABOLIC PANEL STAT 04/16/2022 12:02 Re sults for this PM CDT procedure are i n the results section. documented in this encounter Results (ABNORMAL) Drug abuse screen 77 urine (FL, RH, SH) (04/18/2022 4:05 PM CDT) [facility] Method Time Signature Amphetamines Screen Screen 04/18/2022 [facility] Urine Negative Negative 4:29 PM CDT Comment: Cutoff for a negative amphetami ne is 500 ng/mL or less. Barbiturates Urine Screen Negative Screen Negative 4:29 [facility] PM CDT Comment: Cutoff for a negative barbitura te is 200 ng/mL or less. Benzodiazepines Urine Screen Negative Screen 04/18/2022 4 :29 [facility] Negative PM CDT Comment: Cutoff for a negative benzodiaz epine is 200 ng/mL or less. Cannabinoids Urine Screen Negative Screen Negative 4:29 [facility] PM CDT Comment: Cutoff for a negative cannabino id is 50 ng/mL or less. Cocaine Urine Screen Negative Screen Negative 04/18/2022 4:2 9 PM [facility] CDT Comment: Cutoff for a negative cocaine i s 300 ng/mL or less. Opiates Urine Screen Positive Screen Negative 04/18/2022 4:2 9 PM LABORATORY (A) CDT Comment: Cutoff for a positive opiate is greater than 300 ng/mL. This is an unconfirmed screening result to be used for medical purposes only. PCP Urine Screen Negative Screen Negative 04/18/2022 4:29 PM CDT [facility] Comment: Cutoff for a negative PCP is 25 ng/mL or less. Specimen Anatomical Collection Method Collection Time Receive d Time (Source) Location / / Volume Laterality Urine URINE SPECIMEN Non-blood 04/18/2022 4:05 PM 4:15 OBTAINED BY CLEAN Collection / CDT PM CDT CATCH PROCEDURE / Unknown Unknown Maria Ines Queen APRN NEWSPAPER DELIVERY DRIVER LAB - URINE O RDERABLES Performing Organization Address City/State/ZIP [place] [address] [facility] [address] Lab (1st floor, no room number) MR Cervical Spine w/o Contrast (04/18/2022 12:39 PM CDT) Anatomical Region Laterality Modality Spine, SUBRAD MR NEURO, UMP MR SPINE, RAD MR Magnetic Resonance Specimen (Source) Anatomical Location Collection Method / Collectio n Time Received Time / Laterality Volume Impressions 04/18/2022 1:22 PM CDT IMPRESSION: ?? 1. Mild degenerative change as detailed. 2. No high-grade stenoses. XAVIER GRACE MD Narrative 04/18/2022 1:22 PM CDT MRI CERVICAL SPINE WITHOUT CONTRAST 04/18/2022 12:39 PM HISTORY: Cervical stenosis? ??Unexplaine d bilateral leg weakness. TECHNIQUE: Multiplanar, multisequence MR I of the cervical spine without contrast. COMPARISON: Cervical spine CT 03/15/2012. FINDINGS: Alignment is essentially withi n normal limits. Bone marrow demonstrates minimal degenerative endpla te change most conspicuous surrounding the C5-C6 disc joint. No hig h-grade marrow edema. No convincing cord signal abnormality. No a ppreciable extraspinal abnormality. Presumed benign/reactive cy stic change involving the partially visualized bilateral palatine tonsils. Level by level as follows: C2-C3: ??Disc height maintained. Minimal central bulge. Normal facet joints. No foraminal or spinal canal boy nosis. C3-C4: ??Mild disc height loss. Shallow central bulge. Mild bilateral facet arthropathy. Mild if any right for aminal stenosis. No left foraminal stenosis. No spinal canal sten osis. C4-C5: ??Mild disc height loss. Shallow central protrusion. Mild bilateral facet arthropathy. No foramina l stenosis. Mild spinal canal stenosis. C5-C6: Mild disc height loss. Disc osteo phyte complex. Mild bilateral facet arthropathy. Mild right foraminal stenosis related to uncovertebral osteophyte. No left forami nal stenosis. Presumed left foraminal nerve root sleeve cyst. No spi nal canal stenosis. C6-C7: ??Disc height maintained. No roselia iation. Mild bilateral facet arthropathy. No foraminal or spinal seema l stenosis. Presumed bilateral nerve root sleeve cyst. C7-T1: Disc height maintained. No hernia tion. Mild bilateral facet arthropathy. No foraminal or spinal seema l stenosis. Presumed left foraminal nerve root sleeve cyst. T1-T2: Subtle/shallow right central prot rusion. No foraminal or spinal canal stenosis. Procedure Note Xavier Grace MD - 04/18/2022F ormatting of this note might be different from the original. MRI CERVICAL SPINE WITHOUT CONTRAST 2021 12:39 PM HISTORY: Cervical stenosis? Unexplained bilateral leg weakness. TECHNIQUE: Multiplanar, multisequence MR I of the cervical spine without contrast. COMPARISON: Cervical spine CT 03/15/2012. FINDINGS: Alignment is essentially withi n normal limits. Bone marrow demonstrates minimal degenerative endpla te change most conspicuous surrounding the C5-C6 disc joint. No hig h-grade marrow edema. No convincing cord signal abnormality. No a ppreciable extraspinal abnormality. Presumed benign/reactive cy stic change involving the partially visualized bilateral palatine tonsils. Level by level as follows: C2-C3: Disc height maintained. Minimal c entral bulge. Normal facet joints. No foraminal or spinal canal boy nosis. C3-C4: Mild disc height loss. Shallow ce ntral bulge. Mild bilateral facet arthropathy. Mild if any right for aminal stenosis. No left foraminal stenosis. No spinal canal sten osis. C4-C5: Mild disc height loss. Shallow ce ntral protrusion. Mild bilateral facet arthropathy. No foramina l stenosis. Mild spinal canal stenosis. C5-C6: Mild disc height loss. Disc osteo phyte complex. Mild bilateral facet arthropathy. Mild right foraminal stenosis related to uncovertebral osteophyte. No left forami nal stenosis. Presumed left foraminal nerve root sleeve cyst. No spi nal canal stenosis. C6-C7: Disc height maintained. No hernia tion. Mild bilateral facet arthropathy. No foraminal or spinal seema l stenosis. Presumed bilateral nerve root sleeve cyst. C7-T1: Disc height maintained. No hernia tion. Mild bilateral facet arthropathy. No foraminal or spinal seema l stenosis. Presumed left foraminal nerve root sleeve cyst. T1-T2: Subtle/shallow right central prot rusion. No foraminal or spinal canal stenosis. IMPRESSION: 1. Mild degenerative change as detailed. 2. No high-grade stenoses. XAVIER GRACE MD Evette Morley PA-C [facility] MRI ORDERABLES MR Brain w/o & w Contrast (04/17/2022 12:09 PM CDT) Anatomical Region Laterality Modality Head, SUBRAD MR NEURO, UMP MR NEURO, RAD MR Magnetic Resonance Specimen (Source) Anatomical Location Collection Method / Collectio n Time Received Time / Laterality Volume Impressions 04/17/2022 1:45 PM CDT IMPRESSION: 1. ??A few T2 hyperintense foci in the w briseyda matter are most commonly reflect gliosis related to prior ischemi c or inflammatory insult. They are not typical of an underlying demyeli nating disorder but are nonspecific. 2. ?? No acute intracranial finding. No evidence for recent ischemia, intracranial hemorrhage, or mass. VIC MEYER MD SYSTEM ID: ??[id number] Narrative 04/17/2022 1:45 PM CDT MR BRAIN W/O & W CONTRAST 04/17/2022 12:09 PM INDICATION: Weakness of lower legs, loss of sensation, urinary incontinence, rule out MS TECHNIQUE: Noncontrast and contrast enha nced MRI of the brain. CONTRAST: 6 mL [facility] COMPARISON: Brain MRI 05/10/2013 FINDINGS: ??There is no restricted diffu mari. Paranasal sinuses are free from significant disease. Mastoid a ir cells appear free from significant disease. Intraorbital conten ts are unremarkable. Ventricles are within normal limits in s ize for the patient's age. Intracranial flow voids are intact. Ther e is no mass effect, midline shift, or extraaxial collection. There a re scattered foci of T2/FLAIR hyperintensity within the cerebral white matter that are nonspecific. No evidence for acute or chronic intracr anial blood products. Procedure Note Vic Meyer MD - 2 MR BRAIN W/O & W CONTRAST 04/17/2022 12:09 PM INDICATION: Weakness of lower legs, loss of sensation, urinary incontinence, rule out MS TECHNIQUE: Noncontrast and contrast enha nced MRI of the brain. CONTRAST: 6 mL [facility] COMPARISON: Brain MRI 05/10/2013 FINDINGS: There is no restricted diffusi on. Paranasal sinuses are free from significant disease. Mastoid a ir cells appear free from significant disease. Intraorbital conten ts are unremarkable. Ventricles are within normal limits in s ize for the patient's age. Intracranial flow voids are intact. Ther e is no mass effect, midline shift, or extraaxial collection. There a re scattered foci of T2/FLAIR hyperintensity within the cerebral white matter that are nonspecific. No evidence for acute or chronic intracr anial blood products. IMPRESSION: 1. A few T2 hyperintense foci in the whi te matter are most commonly reflect gliosis related to prior ischemi c or inflammatory insult. They are not typical of an underlying demyeli nating disorder but are nonspecific. 2. No acute intracranial finding. No jeremiah dence for recent ischemia, intracranial hemorrhage, or mass. VIC MEYER MD SYSTEM ID: [id number] Evette Morley PA-C IMG MRI ORDERABLES Asymptomatic COVID-19 Virus (Coronavirus) by PCR Nasopharyngeal (04/16/2022 6:58 PM CDT) Analysis Performed At [facility]o logist Time Signature SARS CoV2 PCR Negative Negative 04/16/2022 LABORATORY 8:12 PM CDT Comment: NEGATIVE: SARS-CoV-2 (COVID-19) RNA not detected, presumed negative. Specimen Anatomical Location / Collection Method Collection Mathew e Received Time (Source) Laterality / Volume Swab NASOPHARYNGEAL Non-blood 04/16/2022 6:58 04/16/2022 7:19 STRUCTURE / Unknown Collection / PM CDT PM CDT Unknown Narrative LABORATORY - 04/16/2022 8:12 PM CDT Testing was performed using the Xpert Xpress SARS-CoV-2 Assay on the [employer]. A dditional information about this Emergency Use Authorization (EUA) a ssay can be found via the Lab Guide. This test should be ordered for t he detection of SARS-CoV-2 in individuals who meet SARS-CoV-2 clinical and/or epidemiological criteria. Test performance is unknown in asymptomatic patients. This test is for in vitro diagnostic use unde r the FDA EUA for laboratories certified under CLIA to per form high complexity testing. This test has not been FDA cleared or ap proved. A negative result does not rule out the presence of PCR in hibitors in the specimen or target RNA in concentration below the li dean of detection for the assay. The possibility of a false negati ve should be considered if the patient's recent exposure or clinica l presentation suggests COVID-19. This test was validated by the [facility]. This laboratory is certified under the Clinical Laboratory Improvement Amendments of 1988 (CLIA-88) as qualified to perform high complexity laboratory testing. Daniel Ragland MD LAB - MICRO GENERAL ORDERABL ES Performing Organization Address City/State/ZIP Code [place] [id number] Care Lab [address] Lab (1st floor, no room number) MR Thoracic Spine w/o Contrast (04/16/2022 5:47 PM CDT) Anatomical Region Laterality Modality Spine, SUBRAD MR NEURO, UMP MR SPINE, RAD MR Magnetic Resonance Specimen (Source) Anatomical Collection Method Collection Time Re ceived Time Location / / Volume Laterality 04/16/2022 5:22 PM CDT Impressions 04/16/2022 5:58 PM CDT IMPRESSION: 1. ??Mild cervical spondylosis. No acute fracture, canal, or foraminal narrowing. 2. ??No definite cord signal abnormality . Narrative 04/16/2022 5:58 PM CDT EXAM: MR THORACIC SPINE W/O CONTRAST LOCATION: [facility] DATE/TIME: 04/16/2022 5:22 PM INDICATION: Back pain; perineal numbness ; urinary symptoms; weakness. COMPARISON: Chest CT from 09/04/2021. TECHNIQUE: Routine Thoracic Spine MRI wi thout IV contrast. FINDINGS: Alignment is normal. No marrow edema. Se veral small scattered incidental vertebral body hemangiomas. Small chronic Schmorl's node along the superior T5 endplate is unchanged. No acute fracture. No signi ficant canal narrowing or foraminal narr owing. No cord signal abnormality. Disc space heig hts are preserved. No definite extraspinal abnormality. Procedure Note Artem Meza MD - 04/16/2022F ormatting of this note might be different from the original. EXAM: MR THORACIC SPINE W/O CONTRAST LOCATION: [facility] DATE/TIME: 04/16/2022 5:22 PM INDICATION: Back pain; perineal numbness ; urinary symptoms; weakness. COMPARISON: Chest CT from 09/04/2021. TECHNIQUE: Routine Thoracic Spine MRI wi thout IV contrast. FINDINGS: Alignment is normal. No marrow edema. Se veral small scattered incidental vertebral body hemangiomas. Small chronic Schmorl's node along the superior T5 endplate is unchanged. No acute fracture. No significant canal narrowing or foraminal narrowing. No cord signal abnormality. Disc space heig hts are preserved. No definite extraspinal abnormality. IMPRESSION: 1. Mild cervical spondylosis. No acute f racture, canal, or foraminal narrowing. 2. No definite cord signal abnormality. Lucila Cruz Praveena PA-Caterina IMG MRI ORDERABLES MR Lumbar Spine w/o & w Contrast (04/16/2022 1:03 PM CDT) Anatomical Region Laterality Modality Spine, SUBRAD MR NEURO, UMP MR SPINE, RAD MR Magnetic Resonance Specimen (Source) Anatomical Location Collection Method / Collectio n Time Received Time / Laterality Volume Impressions 04/16/2022 1:29 PM CDT IMPRESSION: ?? 1. Mild disc height loss at L4-L5 with s hallow central protrusion/annular fissure. 2. No high-grade stenoses. XAVIER GRACE MD SYSTEM ID: ??[id number] Narrative 04/16/2022 1:29 PM CDT MRI LUMBAR SPINE WITH AND WITHOUT CONTRAST April 16, 2022 1:03 PM HISTORY: Low back pain, bilateral radicu lar symptoms, saddle anesthesia, urinary retention. TECHNIQUE: Multiplanar multisequence MRI of the lumbar spine with and without contrast. A total of 6.5 mL of G adavist was injected intravenously. COMPARISON: None. FINDINGS: A transitional lumbosacral seg ment is considered to be a sacralized L5. Alignment is significant for levoconvex curvature and multilevel subtle grade 1 spondylolisthe sis. Bone marrow demonstrates mild degenerative endplate change most c onspicuous surrounding the L4-L5 disc joint. Conus medullaris is un remarkable terminating at the level the T12-L1 disc. Cauda equina is u nremarkable. Mild bilateral sacroiliac joint degenerative change. No convincing extraspinal abnormality. Segmental Analysis: T12-L1: Disc height maintained. No herni ation. Normal facet joints. No foraminal or spinal canal stenosis. L1-L2: Disc height maintained. No hernia tion. Normal facet joints. No foraminal or spinal canal stenosis. ?? L2-L3: Disc height maintained. No hernia tion. Normal facet joints. No foraminal or spinal canal stenosis. ?? L3-L4: Disc height maintained. No hernia tion. Normal facet joints. No foraminal or spinal canal stenosis. ?? L4-L5: Mild disc height loss. Disc bulge with shallow central protrusion/annular fissure which demonst rates enhancement. Normal facet joints. No right foraminal stenosi s. Mild if any left foraminal stenosis. No spinal canal stenosis. ?? L5-S1: Sacralized L5 with small disc. No foraminal or spinal canal stenosis. Procedure Note Xavier Grace MD - 04/16/2022F ormatting of this note might be different from the original. MRI LUMBAR SPINE WITH AND WITHOUT CONTRA ST April 16, 2022 1:03 PM HISTORY: Low back pain, bilateral radicu lar symptoms, saddle anesthesia, urinary retention. TECHNIQUE: Multiplanar multisequence MRI of the lumbar spine with and without contrast. A total of 6.5 mL of G adavist was injected intravenously. COMPARISON: None. FINDINGS: A transitional lumbosacral seg ment is considered to be a sacralized L5. Alignment is significant for levoconvex curvature and multilevel subtle grade 1 spondylolisthe sis. Bone marrow demonstrates mild degenerative endplate change most c onspicuous surrounding the L4-L5 disc joint. Conus medullaris is un remarkable terminating at the level the T12-L1 disc. Cauda equina is u nremarkable. Mild bilateral sacroiliac joint degenerative change. No convincing extraspinal abnormality. Segmental Analysis: T12-L1: Disc height maintained. No herni ation. Normal facet joints. No foraminal or spinal canal stenosis. L1-L2: Disc height maintained. No hernia tion. Normal facet joints. No foraminal or spinal canal stenosis. L2-L3: Disc height maintained. No hernia tion. Normal facet joints. No foraminal or spinal canal stenosis. L3-L4: Disc height maintained. No hernia tion. Normal facet joints. No foraminal or spinal canal stenosis. L4-L5: Mild disc height loss. Disc bulge with shallow central protrusion/annular fissure which demonst rates enhancement. Normal facet joints. No right foraminal stenosi s. Mild if any left foraminal stenosis. No spinal canal stenosis. L5-S1: Sacralized L5 with small disc. No foraminal or spinal canal stenosis. IMPRESSION: 1. Mild disc height loss at L4-L5 with s hallow central protrusion/annular fissure. 2. No high-grade stenoses. XAVIER GRACE MD SYSTEM ID: [id number] Darron Heredia MD IMG MRI ORDERABLES CBC with platelets and differential (04/16/2022 12:02 PM CDT) Analysis Performed At Patho logist Time Signature WBC Count 5.4 4.0 - 11.0 04/16/2022 [facility] 10e3/uL 12:18 PM CDT RBC Count 4.88 4.40 - 04/16/2022 [facility] 5.90 12:18 PM CDT 10e6/uL Hemoglobin 15.3 13.3 - 04/16/2022 [facility] 17.7 g/dL 12:18 PM CDT Hematocrit 44.8 40.0 - 04/16/2022 [facility] 53.0 % 12:18 PM CDT MCV 92 78 - 100 04/16/2022 [facility] fL 12:18 PM CDT MCH 31.4 26.5 - 04/16/2022 [facility] 33.0 pg 12:18 PM CDT MCHC 34.2 31.5 - 04/16/2022 [facility] 36.5 g/dL 12:18 PM CDT RDW 12.1 10.0 - 04/16/2022 [facility] 15.0 % 12:18 PM CDT Platelet Count 260 150 - 450 04/16/2022 [facility] 10e3/uL 12:18 PM CDT % Neutrophils 69 % 04/16/2022 [facility] 12:18 PM CDT % Lymphocytes 21 % 04/16/2022 [facility] 12:18 PM CDT % Monocytes 9 % 04/16/2022 [facility] 12:18 PM CDT % Eosinophils 0 % 04/16/2022 [facility] 12:18 PM CDT % Basophils 1 % 04/16/2022 [facility] 12:18 PM CDT % Immature 0 % 04/16/2022 [facility] Granulocytes 12:18 PM CDT NRBCs per 100 WBC 0 <1 /100 04/16/2022 [facility] RY 12:18 PM CDT Absolute 3.7 1.6 - 8.3 04/16/2022 [facility] Neutrophils 10e3/uL 12:18 PM CDT Absolute 1.1 0.8 - 5.3 04/16/2022 [facility] Lymphocytes 10e3/uL 12:18 PM CDT Absolute 0.5 0.0 - 1.3 04/16/2022 [facility] Monocytes 10e3/uL 12:18 PM CDT Absolute 0.0 0.0 - 0.7 04/16/2022 [facility] Eosinophils 10e3/uL 12:18 PM CDT Absolute 0.0 0.0 - 0.2 04/16/2022 [facility] Basophils 10e3/uL 12:18 PM CDT Absolute Immature 0.0 <=0.4 04/16/2022 [facility] Granulocytes 10e3/uL 12:18 PM CDT Absolute NRBCs 0.0 10e3/uL 04/16/2022 [facility] 12:18 PM CDT Specimen Anatomical Collection Method / Collection Time Recei aureliano Time (Source) Location / Volume Laterality Blood BLOOD SPECIMEN / Venipuncture / 04/16/2022 12:02 04/16 Unknown Unknown PM CDT 12:14 PM CDT Darron Heredia MD LAB - BLOOD ORDERABLES Performing Organization Address City/State/ZIP [place] [address] [facility] [address] Lab (1st floor, no room number) UA with Microscopic reflex to Culture (04/16/2022 12:02 PM CDT) [facility] Method Time Signature Color Urine Straw Colorless, 04/16/2022 [facility] Straw, Light 12:23 PM Yellow, CDT Yellow Appearance Urine Clear Clear 04/16/2022 [facility] Y 12:23 PM CDT Glucose Urine Negative Negative 04/16/2022 [facility] mg/dL 12:23 PM CDT Bilirubin Urine Negative Negative 04/16/2022 [facility] 12:23 PM CDT Ketones Urine Negative Negative 04/16/2022 [facility] mg/dL 12:23 PM CDT Specific [place] 1.006 1.003 - 04/16/2022 [facility] Urine 1.035 12:23 PM CDT Blood Urine Negative Negative 04/16/2022 [facility] 12:23 PM CDT pH Urine 7.0 5.0 - 7.0 04/16/2022 [facility] 12:23 PM CDT Protein Albumin Negative Negative 04/16/2022 [facility] Urine mg/dL 12:23 PM CDT Urobilinogen Normal Normal, 2.0 04/16/2022 [facility] Urine mg/dL 12:23 PM CDT Nitrite Urine Negative Negative 04/16/2022 [facility] 12:23 PM CDT Leukocyte Negative Negative 04/16/2022 [facility] Esterase Urine 12:23 PM CDT RBC Urine <1 <=2 /HPF 04/16/2022 [facility] 12:23 PM CDT WBC Urine <1 <=5 /HPF 04/16/2022 [facility] 12:23 PM CDT Squamous <1 <=1 /HPF 04/16/2022 [facility] Epithelials 12:23 PM Urine CDT Specimen Anatomical Collection Method Collection Time Receive d Time (Source) Location / / Volume Laterality Urine URINE SPECIMEN Non-blood 04/16/2022 12:02 OBTAINED BY CLEAN Collection / PM CDT 12:15 PM C DT CATCH PROCEDURE / Unknown Unknown Narrative LABORATORY - 04/16/2022 12:23 PM CDT Urine Culture not indicated Darron Heredia MD LAB - URINE ORDERABLES Performing Organization Address City/State/ZIP [place] [address] [facility] [address] Lab (1st floor, no room number) (ABNORMAL) Basic metabolic panel (04/16/2022 12:02 PM CDT) Analysis Performed At Patho logist Time Signature Sodium 140 133 - 144 04/16/2022 LAB[facility]ORY mmol/L 12:59 PM CDT Potassium 4.1 3.4 - 5.3 04/16/2022 [facility] mmol/L 12:59 PM CDT Chloride 104 94 - 109 04/16/2022 [facility] mmol/L 12:59 PM CDT Carbon Dioxide 31 20 - 32 04/16/2022 [facility] (CO2) mmol/L 12:59 PM CDT Anion Gap 5 3 - 14 04/16/2022 [facility] mmol/L 12:59 PM CDT Urea Nitrogen 10 7 - 30 04/16/2022 [facility] mg/dL 12:59 PM CDT Creatinine 0.78 0.66 - 04/16/2022 [facility] 1.25 mg/dL 12:59 PM CDT Calcium 9.1 8.5 - 10.1 04/16/2022 [facility] mg/dL 12:59 PM CDT Glucose 101 (H) 70 - 99 04/16/2022 [facility] mg/dL 12:59 PM CDT GFR Estimate >90 >60 04/16/2022 [facility] mL/min/1.7 12:59 PM CDT 3m2 Comment: Effective October 01, 2021 eGF Rcr in adults is calculated using the 2020 CKD-EPI creatinine equation which includ es age and gender (Obi et al., NEJM, DOI: 10.1056/KQQXum8330658) Specimen Anatomical Collection Method / Collection Time Recei aureliano Time (Source) Location / Volume Laterality Blood BLOOD SPECIMEN / Venipuncture / 04/16/2022 12:02 04/16 Unknown Unknown PM CDT 12:14 PM CDT Darron Heredia MD LAB - BLOOD ORDERABLES Performing Organization Address City/State/ZIP Code [place] [id number] [facility] [address] Lab (1st floor, no room number) documented in this encounter Visit Diagnoses Diagnosis Anxiety - Primary Anxiety state, unspecified Acute bilateral low back pain with bilat eral sciatica Leg weakness, bilateral Other musculoskeletal symptoms referable to limbs Attention deficit hyperactivity disorder (ADHD), predominantly hyperactive type Leg weakness, bilateral Other musculoskeletal symptoms referable to limbs Acute bilateral low back pain with bilat eral sciatica documented in this encounter Admitting Diagnoses Diagnosis Leg weakness, bilateral Other musculoskeletal symptoms referable to limbs documented in this encounter Administered Medications Inactive Administered Medications - up to 3 most recent administrations Medication Order MAR Action Action Date Dose Rate Site acetaminophen (TYLENOL) tablet 975 Given 04/18/2022 2:51 PM CDT 975 mg mg 975 mg, Oral, EVERY 8 HOURS, First dose on Thu04/16/22 at 2300, Maximum acetaminophen dose from all sources = 75 mg/kg/day not to exceed 4 grams/day. Given 04/18/2022 6:03 AM CDT 975 mg Given 04/17/2022 10:22 PM CDT 975 mg amphetamine-dextroamphetamine (ADDERALL) per Given 5:22 PM CDT 10 mg tablet 10 mg 10 mg, Oral, DAILY, First dose on Thu04/18/22 at 1530 bisacodyl (DULCOLAX) suppository 10 mg 10 mg, Rectal, DAILY PRN, constipation, Starting on Thu04/18/22 at 1422, Hold for loose stools. gabapentin (NEURONTIN) capsule 300 mg Given 04/17/2022 8:52 AM CDT 300 mg 300 mg, Oral, 3 TIMES DAILY, First dose on Thu04/17/22 at 0800 gadobutrol (GADAVIST) injection 6.5 mL Given 04/16/2022 12:31 PM CDT 6.5 mLs 6.5 mL, Intravenous, ONCE, On Thu04/16/22 at 1225, For 1 dose, Supplied by, and administered by MRI. gadobutrol (GADAVIST) injection 7.5 mL Given 04/17/2022 11:34 AM CDT 6 mLs 7.5 mL, Intravenous, ONCE, On Thu04/17/22 at 1130, For 1 dose HYDROmorphone (PF) (DILAUDID) injection 0.3-0.5 mg 0.3-0.5 mg, Intravenous, EVERY 3 HOURS P RN, moderate to severe pain, Starting on Thu04/18/22 at 1230 HYDROmorphone (PF) (DILAUDID) injection 0.5 Given 03/2022 12:02 PM CDT 0.5 mg mg 0.5 mg, Intravenous, ONCE, On Thu04/16/22 at 1145, For 1 dose HYDROmorphone (PF) (DILAUDID) injection 0.5 Given 04/16/2022 1:21 PM CDT 0.5 mg mg 0.5 mg, Intravenous, ONCE, On Thu04/16/22 at 1315, For 1 dose HYDROmorphone (PF) (DILAUDID) injection 0.5-1 Given 04/17/20 8:52 AM CDT 1 mg mg 0.5-1 mg, Intravenous, EVERY 3 HOURS PRN, moderate to severe pain, Starting on Thu04/16/22 at 2349 Given 04/17/2022 3:42 AM CDT 0.5 mg Given 04/17/2022 12:05 AM CDT 0.5 mg hydrOXYzine (ATARAX) tablet 25 mg Given 04/18/2022 1:37 PM CDT 25 mg 25 mg, Oral, EVERY 6 HOURS, First dose (after last modification) on Thu04/18/22 at 1300, Start with 25 mg for the initial dose. If the 25 mg dose is ineffective, increase to the 50 mg dose at the next administration time and maintain further doses at 50 mg. If the 50 mg dose is ineffective, contact the provider. Hold for sedation hydrOXYzine (ATARAX) tablet 50 mg 50 mg, Oral, EVERY 6 HOURS, First dose ( after last modification) on Thu04/18/22 at 1300, Start with 25 mg for the initial dose. If the 25 mg dose is ineffective, increase to the 50 mg dose at the next administration time and maintain further doses at 50 mg. If the 50 mg dose is ineffective, cont act the provider. meloxicam (MOBIC) tablet 15 mg Given 04/18/2022 8:22 AM CDT 15 mg 15 mg, Oral, DAILY, First dose on Sera 04/17/22 at 0800 Given 04/17/2022 8:52 AM CDT 15 mg menthol (Topical Analgesic) 2.5% (BENGAY VANISHING Given 04/18/2022 2:52 PM CDT SCENT) 2.5 % topical gel Topical, EVERY 6 HOURS, First dose on Thu04/18/22 at 1300, Apply to low back methocarbamol (ROBAXIN) half-tab 250-500 mg Given 04/18/2022 1:37 PM CDT 250 mg 250-500 mg, Oral, 4 TIMES DAILY, First dose on Thu04/18/22 at 1300 morphine (PF) injection 4 mg Given 04/16/2022 10:15 PM CDT 4 mg 4 mg, Intravenous, EVERY 15 MIN PRN, moderate to severe pain, Starting on Thu04/16/22 at 2142, For 3 doses, Notify the provider to assess for uncontrolled pain or analgesic side effects. Hold while on IV ASSISTANT SHIFT SUPERVISOR or with regular IV opioid dosing. naloxone (NARCAN) injection 0.2 mg 0.2 mg, Intravenous, EVERY 2 MIN PRN, op ioid reversal, Starting on Thu04/16/22 at 2239, Administer intravenous route when available and notify provider when administered. For unintended sedation or respiratory depression if all of the below criteria are met: ~ respiratory rate LES S than or EQUAL to 8. ~SaO2 less than 92% and or/end-tidal CO2 is greater than 50. ~ the patient is receiving an opioid, has unintended sedations assessed as RASS (-3), and is cur rently not on mechanical ventilation. RASS scale moderate (-3) is movement or eye opening to voice but no eye contact. Patient Monitoring Once the patient has demonstrated a response to the naloxone, continue to monitor respiratory rate, depth, oxygen saturation and end-tidal CO2 (if available) every 15 mi nutes x 2, then every 30 minutes x 2, then every 1 hour x 1 after each naloxone dose. Consider tr ansfer to ICU if patient respiratory parameters have not improved after 4 nalox one doses. naloxone (NARCAN) injection 0.2 mg 0.2 mg, Intramuscular, EVERY 2 MIN PRN, opioid reversal, Starting on Thu04/16/22 at 2238, Administer intramuscular if an int ravenous route is not available and notify provider when administered. For unintend ed sedation or respiratory depression if all of the below criteria are met: ~ respiratory rate LESS than or EQUAL to 8. ~SaO2 less than 92% and or/end-tidal CO2 is greater th an 50. ~ the patient is receiving an opioid, has unintended sedations assessed as RASS (-3), and is currently not on mechanical ventilation. RASS scale moderate (-3) is movement or eye opening to voice but no eye contact. Patient Monitoring Once the patient has demonstrated a response to the naloxone, continue to m onitor respiratory rate, depth, oxygen saturation and end-tidal CO2 (if availab le) every 15 minutes x 2, then every 30 minutes x 2, then every 1 hour x 1 after each naloxone dose. Consider transfer to ICU if patient respiratory parameters have not improved after 4 naloxone doses. naloxone (NARCAN) injection 0.4 mg 0.4 mg, Intravenous, EVERY 2 MIN PRN, op ioid reversal, Starting on Thu04/16/22 at 2238, Administer intravenous route when available and notify provider when administered. For unintended sedation or respiratory depression if all of the below criteria are met: ~ respiratory rate LES S than or EQUAL to 8. ~ SaO2 less than 92% and or/end-tidal CO2 is greater than 50. ~ the patient is receiving an opioid, has unintended sedation assessed as RASS (-4 ) or (-5) and patient is currently not on mechanical ventilation. RASS scale (-4) is deep sedation with no response to voice but movement or eye opening to physical stimulation. R ASS scale (-5) is unarousable. Patient Monitoring Once the patient has demonstrated a response to the naloxone, continue to monitor respiratory rate, depth, oxygen saturation and end-tidal CO2 (if available) every 15 mi nutes x 2, then every 30 minutes x 2, then every 1 hour x 1 after each naloxone dose. Consider tr ansfer to ICU if patient respiratory parameters have not improved after 4 nalox one doses. naloxone (NARCAN) injection 0.4 mg 0.4 mg, Intramuscular, EVERY 2 MIN PRN, opioid reversal, Starting on Thu04/16/22 at 2239, Administer intramuscular if an int ravenous route is not available and notify provider when administered. For unintend ed sedation or respiratory depression if all of the below criteria are met: ~ res piratory rate LESS than or EQUAL to 8. ~ SaO2 less than 92% and or/end-tidal CO2 is greater mayi n 50. ~ the patient is receiving an opioid, has unintended sedation assessed as RASS (-4) or (-5) and patient is currently not on mechanical ventilation. RA SS scale (-4) is deep sedation with no response to voice but movement or eye opening to physical stimulation. RASS scale (-5) is unarousa ble. Patient Monitoring Once the patient has demonstrated a response to the nalox one, continue to monitor respiratory rate, depth, oxygen saturation and end-tidal CO2 (if availab le) every 15 minutes x 2, then every 30 minutes x 2, then every 1 hour x 1 after each naloxone dose. Consider transfer to ICU if patient respiratory parameters have not improved after 4 naloxone doses. ondansetron (ZOFRAN ODT) ODT tab 4 mg 4 mg, Oral, EVERY 6 HOURS PRN, nausea, v omiting, Starting on Thu04/16/22 at 2235, This is Step 1 of nausea and vomiting management. If n ausea not resolved in 15 minutes, go to Step 2 prochlorperazine ( COMPAZINE). With dry hands, peel back foil backing and gently remove tablet. Do not push oral disintegrating tablet through foil backing. Administer immediately on tongue and ora l disintegrating tablet dissolves in seconds, then swallow with saliva. Liquid not required. ondansetron (ZOFRAN) injection 4 mg 4 mg, Intravenous, EVERY 6 HOURS PRN, nausea, vomiting , Administer over 2-5 Minutes, Starting on Thu04/16/22 at 2235, Give IF patient unable to tolerate oral medication. This is Step 1 of nausea and vomiting hossein forrester. If nausea not resolved in 15 minutes, go to Step 2 prochlorperazine (COMPAZINE). Irritant. oxyCODONE (ROXICODONE) tablet 5 mg Given 04/16/2022 4:19 PM CDT 5 mg 5 mg, Oral, ONCE, On Thu04/16/22 at 1615, For 1 dose oxyCODONE (ROXICODONE) tablet 5 mg Given 04/16/2022 6:57 PM CDT 5 mg 5 mg, Oral, ONCE, On Thu04/16/22 at 1850, For 1 dose oxyCODONE (ROXICODONE) tablet 5-10 mg Given 04/18/2022 6:10 PM CDT 10 mg 5-10 mg, Oral, EVERY 4 HOURS PRN, moderate to severe pain, Starting on Thu04/16/22 at 2235 Given 04/18/2022 11:58 AM CDT 10 mg Given 04/18/2022 6:51 AM CDT 10 mg pantoprazole (PROTONIX) EC tablet 40 mg Given 04/18/2022 6:51 AM CDT 40 mg 40 mg, Oral, EVERY MORNING BEFORE BREAKFAST, First dose on Thu04/17/22 at 0730, DO NOT CRUSH. Given 04/17/2022 6:38 AM CDT 40 mg pregabalin (LYRICA) capsule 75 mg Given 04/18/2022 8:22 AM CDT 75 mg 75 mg, Oral, 2 TIMES DAILY, First dose (after last modification) on Thu04/17/22 at 2000 Given 04/17/2022 6:56 PM CDT 75 mg pregabalin (LYRICA) capsule 75 mg Given 04/18/2022 2:51 PM CDT 75 mg 75 mg, Oral, 3 TIMES DAILY, First dose (after last modification) on Thu04/18/22 at 1400 senna-docusate (SENOKOT-S/PERICOLACE) 8. 6-50 MG per tablet 1 tablet 1 tablet, Oral, 2 TIMES DAILY, First dos e (after last modification) on Thu04/18/22 at 1100, If no bowel movement in 24 hour s, increase to 2 tablets by mouth. IF more than 1 constipation PRN medication is or dered, administer step-shetty as indicated, moving to the next step ONLY if prior step ineffective . Step 1: senna-docusate (SENOKOT-S; PERICOLACE) OR bisacodyl (DULCOLAX) EC tab let Step 2: magnesium hydroxide (MILK OF MAGNESIA) OR polyethylene glycol (M IRALAX/GLYCOLAX) Step 3: bisacodyl (DULCOLAX) suppository Step 4: sodium phosphate (FLEET ENEMA) Hold for loose stools. senna-docusate (SENOKOT-S/PERICOLACE) 8. 6-50 MG per tablet 2 tablet 2 tablet, Oral, 2 TIMES DAILY, First dos e (after last modification) on Thu04/18/22 at 1100, IF more than 1 constipation PRN medication is ordered, administer step-shetty as indicated, moving to the next step ONLY i f prior step ineffective. Step 1: senna-docusate (SENOKOT-S; PERIC OLACE) OR bisacodyl (DULCOLAX) EC tablet Step 2: magnesium hydroxide (MILK OF MAGNESIA) OR poly ethylene glycol (MIRALAX/GLYCOLAX) Step 3: bisacodyl (DULCOLAX) suppos itory Step 4: sodium phosphate (FLEET ENEMA) Hold for loose stools. sertraline (ZOLOFT) tablet 25 mg 25 mg, Oral, DAILY, First dose on Thu04/18/22 at 1530 sodium chloride (PF) 0.9% PF flush 3 mL Given 04/18/2022 8:27 AM CDT 3 mLs 3 mL, Intracatheter, EVERY 1 MIN PRN, line flush, Starting on Thu04/16/22 at 2235, for peripheral IV flush post IV meds sodium chloride (PF) 0.9% PF flush 3 mL Given 04/18/2022 2:52 PM CDT 3 mLs 3 mL, Intracatheter, EVERY 8 HOURS, First dose on Thu04/16/22 at 2300, And Q1H PRN, to lock peripheral IV dormant line. Given 04/18/2022 6:04 AM CDT 3 mLs Given 04/17/2022 10:23 PM CDT 3 mLs documented in this encounter Active and Recently Administered Medications Times are shown in CDT. Scheduled Medication Order 04/16/2022 04/17/2022 04/18/2022 acetaminophen (TYLENOL) tablet 975 mg 2259 (Given - Provider : Natasha Galloway RN) 0640 (Given - Provider: Zulema Sam RN)1502 (Given - Provider: Vashti Hinds RN)2222 (Given - Provider: Vashti Hinds RN) 0603 (Given - Provider: Gerald Bhatt)1451 (Given - Provider: Farhat Loera RN) 975 mg, Oral, EVERY 8 HOURS, First dose on Thu04/16/22 at 2300, Maximum acetaminophen dose from all sources = 75 mg/kg/day not to exceed 4 grams/day. amphetamine-dextroamphetamine (ADDERALL) per tablet 10 mg 1722 (Given - Provider: Farhat Loera RN - Comment: meds wasn't verified.) 10 mg, Oral, DAILY, First dose on Thu04/18/22 at 1530 gabapentin (NEURONTIN) capsule 300 mg (CANCELED) 0852 (Given - Provider: Vashti Hinds RN)1149 (Not Given - Provider: Vashti Hinds RN - Reason: Patient/family refused) 300 mg, Oral, 3 TIMES DAILY, First dose on Sera 04/17/22 at 0800 gadobutrol (GADAVIST) injection 6.5 mL (COMPLETED) 123 1 (Given - Provider: Sally Howard) 6.5 mL, Intravenous, ONCE, On Thu04/16/22 at 1225, For 1 dose, Supplied by, and administered by MRI. gadobutrol (GADAVIST) injection 7.5 mL (COMPLETED) 1134 (Given - Provider: Vincent Cortez) 7.5 mL, Intravenous, ONCE, On Thu04/17/22 at 1130, For 1 dose HYDROmorphone (PF) (DILAUDID) injection 0.5 mg (COMPLE MADI) 1202 (Given - Provider: Anastasia Morley RN) 0.5 mg, Intravenous, ONCE, On Thu04/16/22 at 1145, For 1 dose HYDROmorphone (PF) (DILAUDID) injection 0.5 mg (COMPLE MADI) 1321 (Given - Provider: Renuka Flynn RN) 0.5 mg, Intravenous, ONCE, On Thu04/16/22 at 1315, For 1 dose hydrOXYzine (ATARAX) tablet 25 mg(Linked Group 1) 1337 (Given - Provider: Farhat Loera RN)1900 (Canceled Entry - Provider: Orders Generic Provider - Comment: Automatically canceled at discontinue of medication order) 25 mg, Oral, EVERY 6 HOURS, First dose ( after last modification) on Thu04/18/22 at 1300, Start with 25 mg for the initial dose. If the 25 mg dose is ineffective, increase to the 50 mg dose at the next ad ministration time and maintain further d oses at 50 mg. If the 50 mg dose is ineffective, contact the provider. Hold for sedation hydrOXYzine (ATARAX) tablet 50 mg(Linked Group 1) 1337 (See Alternative - Provider: Farhat Loera RN)1900 (Canceled Entry - Provider: Orders Generic Provider - Comment: Automatically canceled at discontinue of medication order) 50 mg, Oral, EVERY 6 HOURS, First dose ( after last modification) on Thu04/18/22 at 1300, Start with 25 mg for the initial dose. If the 25 mg dose is ineffective, increase to the 50 mg dose at the next ad ministration time and maintain further d oses at 50 mg. If the 50 mg dose is ineffective, contact the provider. meloxicam (MOBIC) tablet 15 mg 851 (Given - Pro vider: Vashti Hinds RN) 821 (Given - Provider: Farhat Loera RN) 15 mg, Oral, DAILY, First dose on Sera 04/17/22 at 0800 menthol (Topical Analgesic) 2.5% (BENGAY VANISHING SCENT) 2.5 % topical gel 1452 (Given - Provider: Farhat Loera RN)1900 (Canceled Entry - Provider: Orders Generic Provider - Comment: Automatically canceled at discontinue of medication order) Topical, EVERY 6 HOURS, First dose on Thu04/18/22 at 1300, Apply to low back methocarbamol (ROBAXIN) half-tab 250-500 mg 1337 (Given - Provider: Farhat Loera RN)1800 (Canceled Entry - Provider: Orders Generic Provider - Comment: Automatically canceled at discontinue of medication order) 250-500 mg, Oral, 4 TIMES DAILY, First dose on Thu04/18/22 at 130 0 oxyCODONE (ROXICODONE) tablet 5 mg (COMPLETED) 161 (Jamar ivcece - Provider: Anastasia Morley RN) 5 mg, Oral, ONCE, On Thu04/16/22 at 1615, For 1 dose oxyCODONE (ROXICODONE) tablet 5 mg (COMPLETED) 185 (Jamar ivcece - Provider: Anastasia Morley RN) 5 mg, Oral, ONCE, On Thu04/16/22 at 1850, For 1 dose pantoprazole (PROTONIX) EC tablet 40 mg 0638 (Given - Provider: Zulema Sam RN) 0651 (Given - Provider: Vadim Covarrubias) 40 mg, Oral, EVERY MORNING BEFORE BREAKF AST, First dose on Thu04/17/22 at 0730, DO NOT CRUSH. polyethylene glycol (MIRALAX) Packet 17 g 0854 (Not Given - Provider: Vashti Hinds RN - Reason: Patient/family refused) 0820 (Not Given - Provider: Farhat Loera RN - Reason: Patient/family refused) 17 g, Oral, DAILY, First dose on 04/17 at 0800, 1 Packet = 17 grams. Mix each gram with at least 1/2 ounce (15 mL) of water - 8 ounces for 17 g dose, 4 ounces for 8.5 g dose, 2 ounces for 4 g dose. Follow with the same volume of water. H old for loose stools unless being administered as part of a bowel prep regimen or bowel clean out. pregabalin (LYRICA) capsule 75 mg (CANCELED) 1856 (Given - Provider: Vashti Hinds RN) 0822 (Given - Provider: Farhat Loera RN) 75 mg, Oral, 2 TIMES DAILY, First dose ( after last modification) on Thu04/17/22 at 2000 pregabalin (LYRICA) capsule 75 mg 1451 (Given - Provider: Farhat Loera RN)1999 (Canceled Entry - Provider: Orders Generic Provider - Comment: Automatically canceled at discontinue of medication order) 75 mg, Oral, 3 TIMES DAILY, First dose ( after last modification) on Thu04/18/22 at 1400 senna-docusate (SENOKOT-S/PERICOLACE) 8. 6-50 MG per tablet 1 tablet(Linked Group 2) 1158 (Not Given - Pr ovider: Eleonora Cartagena RN - Reason: Patient/family refused)1999 (Canceled Entry - Provider: Orders Generic Provider - Comment: Automatically canceled at discontinue of medication order) 1 tablet, Oral, 2 TIMES DAILY, First dos e (after last modification) on Thu04/18/22 at 1100, If no bowel movement in 24 hours, increase to 2 tablets by mouth. IF more than 1 constipation PRN medication is ordered, administer step-shetty as indica madi, moving to the next step ONLY if prior step ineffective. Step 1: senna-docusate (SENOKOT-S; PERICOLACE) OR bisacodyl (DULCOLAX) EC tablet Step 2: magnesium hy droxide (MILK OF MAGNESIA) OR polyethyle ne glycol (MIRALAX/GLYCOLAX) Step 3: bisacodyl (DULCOLAX) suppository Step 4: sodium phosphate (FLEET ENEMA) Hold for loose stools. senna-docusate (SENOKOT-S/PERICOLACE) 8. 6-50 MG per tablet 2 tablet(Linked Group 2) 1158 (See Alternativ e - Provider: Eleonora Cartagena RN)1999 (Canceled Entry - Provider: Orders Generic Provider - Comment: Automatically canceled at discontinue of medication order) 2 tablet, Oral, 2 TIMES DAILY, First dos e (after last modification) on Thu04/18/22 at 1100, IF more than 1 constipation PRN medication is ordered, administer step-shetty as indicated, moving to the next st ep ONLY if prior step ineffective. Step 1: senna-docusate (SENOKOT-S; PERICOLACE) OR bisacodyl (DULCOLAX) EC tablet Step 2: magnesium hydroxide (MILK OF MAGNESIA) OR polyethylene glycol (MIRALAX/GLYCOLA X) Step 3: bisacodyl (DULCOLAX) supposit ory Step 4: sodium phosphate (FLEET ENEMA) Hold for loose stools. sertraline (ZOLOFT) tablet 25 mg 1628 (Not Given - Provider: Eleonora Cartagena RN - Reason: Patient/family refused - Comment: would like to wait until morning dose) 25 mg, Oral, DAILY, First dose on Thu04/18/22 at 1530 sodium chloride (PF) 0.9% PF flush 3 mL 2300 (Given - Provid er: Natasha Galloway RN) 0641 (Given - Provider: Zulema Sam RN)1503 (Given - Provider: Vashti Hinds RN)2223 (Given - Provider: Vashti Hinds RN) 0604 (Given - Provider: Gerald Bhatt)1452 (Given - Provider: Farhat Loera RN) 3 mL, Intracatheter, EVERY 8 HOURS, Firs t dose on Thu04/16/22 at 2300, And Q1H PRN, to lock peripheral IV dormant line. PRN Medication Order 04/16/2022 04/17/2022 04/18/2022 bisacodyl (DULCOLAX) suppository 10 mg 10 mg, Rectal, DAILY PRN, constipation, Starting on Thu04/18/22 at 1422, Hold for loose stools. HYDROmorphone (PF) (DILAUDID) injection 0.3-0.5 mg 0.3-0.5 mg, Intravenous, EVERY 3 HOURS P RN, moderate to severe pain, Starting on Thu04/18/22 at 1230 HYDROmorphone (PF) (DILAUDID) injection 0.5-1 mg (CANCELED) 0005 (Given - Provider: Zulema Sam RN)0342 (Given - Provider: Zulema Sam RN)0852 (Given - Provider: Vashti Hinds RN) 0.5-1 mg, Intravenous, EVERY 3 HOURS PRN , moderate to severe pain, Starting on Thu04/16/22 at 2349 lidocaine (LMX4) cream Topical, EVERY 1 HOUR PRN, pain, with VA D insertion or accessing implanted port., Starting on Thu04/16/22 at 2235, Do NOT give if patient has a history of allergy to any local anesthetic or any mane p roduct. Apply at least 30 minutes prior to VAD insertion or port access. In divided doses as needed for size of site for VAD insertion with MAX Dose: 2.5 g (?? of 5 g tube). lidocaine 1 % 0.1-1 mL 0.1-1 mL, Other, EVERY 1 HOUR PRN, mild pain with VAD insertion., Starting on Thu04/16/22 at 2235, Do NOT give if patient has a history of allergy to any local anesthetic or any mane product. MAX dose 1 mL subcutaneous OR intradermal in divided doses as needed for VAD insertion. melatonin tablet 1 mg 1 mg, Oral, AT BEDTIME PRN, sleep, Start ing on Thu04/16/22 at 2235, Do not give unless at least 6 hours of uninterrupted sleep is expected. morphine (PF) injection 4 mg (CANCELED) 2214 (Given - Provider: Juanita Messer RN) 4 mg, Intravenous, EVERY 15 MIN PRN, mod erate to severe pain, Starting on Thu04/16/22 at 2142, For 3 doses, Notify the provider to assess for uncontrolled pain or analgesic side effects. Hold while on IV ASSISTANT SHIFT SUPERVISOR or with regular IV opioid dosing. naloxone (NARCAN) injection 0.2 mg(Linked Group 3) 0.2 mg, Intravenous, EVERY 2 MIN PRN, op ioid reversal, Starting on Thu04/16/22 at 2239, Administer intravenous route when available and notify provider when administered. For unintended sedation or respi ratory depression if all of the below cr iteria are met: ~ respiratory rate LESS than or EQUAL to 8. ~SaO2 less than 92% and or/end-tidal CO2 is greater than 50. ~ the patient is receiving an opioid, has unintended sedations assessed as RASS ( -3), and is currently not on mechanical ventilation. RASS scale moderate (-3) is movement or eye opening to voice but no eye contact. Patient Monitoring Once the patient has demonstrated a response to t he naloxone, continue to monitor respiratory rate, depth, oxygen saturation and end-tidal CO2 (if available) every 15 minutes x 2, then every 30 minutes x 2, then every 1 hour x 1 after each naloxone do se. Consider transfer to ICU if patient respiratory parameters have not improved after 4 naloxone doses. naloxone (NARCAN) injection 0.2 mg(Linked Group 3) 0.2 mg, Intramuscular, EVERY 2 MIN PRN, opioid reversal, Starting on Thu04/16/22 at 2238, Administer intramuscular if an intravenous route is not available and notify provider when administered. For unin tended sedation or respiratory depressio n if all of the below criteria are met: ~ respiratory rate LESS than or EQUAL to 8. ~SaO2 less than 92% and or/end-tidal CO2 is greater than 50. ~ the patient is receiving an opioid, has unintended graham tions assessed as RASS (-3), and is currently not on mechanical ventilation. RASS scale moderate (-3) is movement or eye opening to voice but no eye contact. Annie ent Monitoring Once the patient has demo nstrated a response to the naloxone, continue to monitor respiratory rate, depth, oxygen saturation and end-tidal CO2 (if available) every 15 minutes x 2, then ev shin 30 minutes x 2, then every 1 hour x 1 after each naloxone dose. Consider transfer to ICU if patient respiratory parameters have not improved after 4 naloxone doses. naloxone (NARCAN) injection 0.4 mg(Linked Group 3) 0.4 mg, Intravenous, EVERY 2 MIN PRN, op ioid reversal, Starting on Thu04/16/22 at 2238, Administer intravenous route when available and notify provider when administered. For unintended sedation or respi ratory depression if all of the below cr iteria are met: ~ respiratory rate LESS than or EQUAL to 8. ~ SaO2 less than 92% and or/end-tidal CO2 is greater than 50. ~ the patient is receiving an opioid, angel s unintended sedation assessed as RASS ( -4) or (-5) and patient is currently not on mechanical ventilation. RASS scale (-4) is deep sedation with no response to voice but movement or eye opening to phys ical stimulation. RASS scale (-5) is marcel rousable. Patient Monitoring Once the patient has demonstrated a response to the naloxone, continue to monitor respiratory rate, depth, oxygen saturation and end- tidal CO2 (if available) every 15 minute s x 2, then every 30 minutes x 2, then every 1 hour x 1 after each naloxone dose. Consider transfer to ICU if patient respiratory parameters have not improved after 4 naloxone doses. naloxone (NARCAN) injection 0.4 mg(Linked Group 3) 0.4 mg, Intramuscular, EVERY 2 MIN PRN, opioid reversal, Starting on Thu04/16/22 at 2239, Administer intramuscular if an intravenous route is not available and notify provider when administered. For unin tended sedation or respiratory depressio n if all of the below criteria are met: ~ respiratory rate LESS than or EQUAL to 8. ~ SaO2 less than 92% and or/end- tidal CO2 is greater than 50. ~ the patient is receiving an opioid, has unintended sed ation assessed as RASS (-4) or (-5) and patient is currently not on mechanical ventilation. RASS scale (-4) is deep sedation with no response to voice but movemen t or eye opening to physical stimulation . RASS scale (-5) is unarousable. Patient Monitoring Once the patient has demonstrated a response to the naloxone, continue to monitor respiratory rate, depth, ox ygen saturation and end-tidal CO2 (if av ailable) every 15 minutes x 2, then every 30 minutes x 2, then every 1 hour x 1 after each naloxone dose. Consider transfer to ICU if patient respiratory parameters have not improved after 4 naloxone doses. ondansetron (ZOFRAN ODT) ODT tab 4 mg(Linked Group 4) 4 mg, Oral, EVERY 6 HOURS PRN, nausea, v omiting, Starting on Thu04/16/22 at 2235, This is Step 1 of nausea and vomiting management. If nausea not resolved in 15 minutes, go to Step 2 prochlorperazine (CO MPAZINE). With dry hands, peel back foil backing and gently remove tablet. Do not push oral disintegrating tablet through foil backing. Administer immediately on tongue and oral disintegrating tablet di ssolves in seconds, then swallow with saliva. Liquid not require d. ondansetron (ZOFRAN) injection 4 mg(Linked Group 4) 4 mg, Intravenous, EVERY 6 HOURS PRN, na usea, vomiting, Administer over 2-5 Minutes, Starting on Thu04/16/22 at 2235, Give IF patient unable to tolerate oral medication. This is Step 1 of nausea and vomi ting management. If nausea not resolved in 15 minutes, go to Step 2 prochlorperazine (COMPAZINE). Irritant. oxyCODONE (ROXICODONE) tablet 5-10 mg 05 32 (Given - Provider: Dipti Turcios, DOMENIC)1233 (Given - Provider: Vashti Hinds, DOMENIC)1709 (Given - Provider: Vashti Hinds, DOMENIC)2117 (Given - Provider: Vashti Hinds, DOMENIC) 0214 (Given - Provider: Gerald Bhatt)0651 (Given - Provider: Saad Villar, DOMENIC)1158 (Given - Provider: Eleonora Cartagena, DOMENIC)1810 (Given - Provider: Eleonora Cartagena, DOMENIC) 5-10 mg, Oral, EVERY 4 HOURS PRN, modera te to severe pain, Starting on Thu04/16/22 at 2235 sodium chloride (PF) 0.9% PF flush 3 mL 0827 (Given - Provider: Farhat Loera, DOMENIC) 3 mL, Intracatheter, EVERY 1 MIN PRN, li ne flush, Starting on Thu04/16/22 at 2235, for peripheral IV flush post IV meds Linked Groups Order Group 1: hydrOXYzine (ATARAX) tablet 25 mgJump to med 25 mg, Oral, EVERY 6 HOURS, First dose ( after last modification) on Thu04/18/22 at 1300
Start with 25 mg for the initial dose. If the 25 mg dose is ineffective, increase to the 50 mg dose at the next administration time and maintain f urther doses at 50 mg. If the 50 mg dose is ineffective, contact the provider. Hold for sedation
Or hydrOXYzine (ATARAX) tablet 50 mgJump to med 50 mg, Oral, EVERY 6 HOURS, First dose ( after last modification) on Thu04/18/22 at 1300
Start with 25 mg for the initial dose. If the 25 mg dose is ineffective, increase to the 50 mg dose at the next administration time and maintain f urther doses at 50 mg. If the 50 mg dose is ineffective, contact the provider.
Group 2: senna-docusate (SENOKOT-S/PERICOLACE) 8.6-50 MG per tablet 1 tabletJump to med 1 tablet, Oral, 2 TIMES DAILY, First dos e (after last modification) on Thu04/18/22 at 1100
If no bowel movement in 24 hours, increase to 2 tablets by mouth. IF more than 1 constipation PRN medication is ordered, administer st ep-shetty as indicated, moving to the next step ONLY if prior step ineffective. Step 1: senna-docusate (SENOKOT-S; PERICOLACE) OR bisacodyl (DULCOLAX) EC t ablet Step 2: magnesium hydroxide ( MILK OF MAGNESIA) OR polyethylene glycol (MIRALAX/GLYCOLAX) Step 3: bisacodyl (DULCOLAX) suppository Step 4: sodium phosphate (FLEET ENEMA) Hold for loose stools.
Or senna-docusate (SENOKOT-S/PERICOLACE) 8.6-50 MG per tablet 2 tabletJump to med 2 tablet, Oral, 2 TIMES DAILY, First dos e (after last modification) on Thu04/18/22 at 1100
IF more than 1 constipation PRN medication is ordered, administer step-shetty as indicated, moving to the next step ONLY if prior step ineffectiv e. Step 1: senna-docusate (SENOKOT- S; PERICOLACE) OR bisacodyl (DULCOLAX) EC tablet Step 2: magnesium hydroxide (MILK OF MAGNESIA) OR polyethyle ne glycol (MIRALAX/GLYCOLAX) Step 3 : bisacodyl (DULCOLAX) suppository Step 4: sodium phosphate (FLEET ENEMA) Hold for loose stools.
Group 3: naloxone (NARCAN) injection 0.2 mgJump to med 0.2 mg, Intravenous, EVERY 2 MIN PRN, op ioid reversal, Starting on Thu04/16/22 at 2238
Administer intravenous route when available and notify provider when administered. For unintended sedation or respiratory depression if al l of the below criteria are met: ~ respiratory rate LESS than or EQUAL to 8. ~SaO2 less than 92% and or/end- tidal CO2 is greater than 50.&n bsp;~ the patient is receiving an opioid , has unintended sedations assessed as RASS (-3), and is currently not on mechanical ventilation. RASS scale moderate (-3) is movement or eye o pening to voice but no eye contact.&nbsp ; Patient Monitoring Once the patient has demonstrated a response to the naloxone, continue to monitor respiratory rate, depth, oxygen satur ation and end-tidal CO2 (if available) e very 15 minutes x 2, then every 30 minutes x 2, then every 1 hour x 1 after each naloxone dose. Consider transfer to ICU if patient respiratory parameters have not improved after 4 na loxone doses.
Or naloxone (NARCAN) injection 0.4 mgJump to med 0.4 mg, Intravenous, EVERY 2 MIN PRN, op ioid reversal, Starting on Thu04/16/22 at 2238
Administer intravenous route when available and notify provider when administered. For unintended sedation or respiratory depression if al l of the below criteria are met: ~ respiratory rate LESS than or EQUAL to 8. ~ SaO2 less than 92% and or/end- tidal CO2 is greater than 50.&n bsp;~ the patient is receiving an opioid , has unintended sedation assessed as RASS (-4) or (-5) and patient is currently not on mechanical ventilation. RASS scale (-4) is deep sedatio n with no response to voice but movement or eye opening to physical stimulation. RASS scale (-5) is unarousable. Patient Monitoring Onc e the patient has demonstrated a respons e to the naloxone, continue to monitor respiratory rate, depth, oxygen saturation and end-tidal CO2 (if available) every 15 minutes x 2, then every 30 minutes x 2 , then every 1 hour x 1 after each nalox one dose. Consider transfer to ICU if patient respiratory parameters have not improved after 4 naloxone doses.
Or naloxone (NARCAN) injection 0.2 mgJump to med 0.2 mg, Intramuscular, EVERY 2 MIN PRN, opioid reversal, Starting on Thu04/16/22 at 2238
Administer intramuscular if an intravenous route is not available and notify provider when administered.& amp;nbsp;For unintended sedation or resp iratory depression if all of the below criteria are met: ~ respiratory rate LESS than or EQUAL to 8. ~SaO2 less than 92% and or/end-tidal CO2 i s greater than 50. ~ the patient is receiving an opioid, has unintended sedations assessed as RASS (-3), and is currently not on mechanical ventilation. RASS scale moderate ( -3) is movement or eye opening to voice but no eye contact. Patient Monitoring Once the patient has demonstrated a response to the naloxone, continue to monitor respiratory r ate, depth, oxygen saturation and end-ti georgette CO2 (if available) every 15 minutes x 2, then every 30 minutes x 2, then every 1 hour x 1 after each naloxone dose. Consider transfer to U if patient respiratory parameters have not improved after 4 naloxone doses.
Or naloxone (NARCAN) injection 0.4 mgJump to med 0.4 mg, Intramuscular, EVERY 2 MIN PRN, opioid reversal, Starting on Thu04/16/22 at 2238
Administer intramuscular if an intravenous route is not available and notify provider when administered.& amp;nbsp;For unintended sedation or resp iratory depression if all of the below criteria are met: ~ respiratory rate LESS than or EQUAL to 8. ~ SaO2 less than 92% and or/end-tidal CO2 i s greater than 50. ~ the patient is receiving an opioid, has unintended sedation assessed as RASS (-4) or (-5) and patient is currently not on mechanical ventilation. RASS sc angelica (-4) is deep sedation with no respon se to voice but movement or eye opening to physical stimulation. RASS scale (-5) is unarousable. Patient Monitoring Once the patient has de monstrated a response to the naloxone, continue to monitor respiratory rate, depth, oxygen saturation and end-tidal CO2 (if available) every 15 minutes x 2, t hen every 30 minutes x 2, then every 1 h our x 1 after each naloxone dose. Consider transfer to ICU if patient respiratory parameters have not improved after 4 naloxone doses.
Group 4: ondansetron (ZOFRAN ODT) ODT tab 4 mgJump to med 4 mg, Oral, EVERY 6 HOURS PRN, nausea, v omiting, Starting on Thu04/16/22 at 2235
This is Step 1 of nausea and vomiting management. If nausea not resolved in 15 minutes, go to Step 2 prochlorperazine (COMPAZINE).&nbs p;With dry hands, peel back foil backing and gently remove tablet. Do not push oral disintegrating tablet through foil backing. Administer immediately on tong ue and oral disintegrating tablet dissol ves in seconds, then swallow with saliva. Liquid not required.
Or ondansetron (ZOFRAN) injection 4 mgJump to med 4 mg, Intravenous, EVERY 6 HOURS PRN, na usea, vomiting, Administer over 2-5 Minutes, Starting on Thu04/16/22 at 2235
Give IF patient unable to tolerate oral medication. This is Step 1 o f nausea and vomiting management. If sussy sea not resolved in 15 minutes, go to Step 2 prochlorperazine (COMPAZINE). Irritant.
documented in this encounter Care Teams Supervisor Front Relationship Specialty Start Date End Date No Ref-Primary, Physician PCP - General 04/16/22 documented as of this encounter
--- OUTSIDE RECORDS SUMMARY | 2022-08-19 07:02 | XMS_ITS | Encounter Summary ---
:1975 Author Organization [facility] Address [address] [place] [address]. [place] [address] Care Team Providers Name Role Phone No Ref-Primary, Physician Primary Care Provider [phone] Reason for Referral Care Coordination (Routine: Next available opening) - Pending Review Specialty Diagnoses / Procedures Referred By Contact Refer red To Contact Diagnoses Other specified counseling [facility] Care Coordination [facility] [place], [place] [phone] Referral ID Status Reason Start Date Expiration Date Visits V isits Requested Authorized [id number] Pending 04/19/2022 04/19/2023 1 1 Review Encounter Details Date Type Department Care Team Description 04/19/2022 Orders Only [facility] No Ref-Primary, Ot her specified Coordination Physician counseling [address] [place] [address] [place], [place] (Fax) [phone] Social History Tobacco Use Types Packs/Day Years [...] Name Type Priority Associated Diagnoses Order [facility] Referral Routine: Next Other specified Expected: Discharge - available opening counseling 04/19/2022 Referral to CC (Approximate) , Expires: 04/19/2023 documented as of this encounter Visit Diagnoses Diagnosis Other specified counseling documented in this encounter Care Teams Grooving Lathe Tender Relationship Specialty Start Date End Date No Ref-Primary, Physician PCP - General 04/16/22 documented as of this encounter
[2022-08-19 07:03] LABS: Slide Review Reflex No
--- OUTSIDE RECORDS SUMMARY | 2022-08-19 07:03 | XMS_ITS | Encounter Summary ---
:1975 Author Organization [place] Address [address] [place] [address] Care Team Providers Name Role Phone No Ref-Primary, Physician Primary Care Provider [phone] Encounter Details Date Type Department Care Team Description 04/14/2020 Travel Social History Tobacco Use Types Packs/Day Years Used Date Smoking Tobacco: Former Smokeless Tobacco: Current Alcohol Use Standard Drinks/Week Comments Yes 0 (1 standard drink = 0.6 oz pure alcoho l) rare Sex Assigned at Date Recorded Not on file COVID-19 Exposure Response Date Recorded In the last month, have you been in contact with No / Unsure 04/14/2020 1:18 AM CDT someone who was confirmed or suspected to have Coronavirus / COVID-19? documented as of this encounter Plan of Treatment Not on filedocumented as of this encounter Visit Diagnoses Not on filedocumented in this encounter Care Teams Privacy Director Relationship Specialty Start Date End Date No Ref-Primary, Physician PCP - General 04/14/20 09/03/21 documented as of this encounter
--- OUTSIDE RECORDS SUMMARY | 2022-08-19 07:03 | XMS_ITS | Encounter Summary ---
:1975 Author Organization [place] Address [address] [place] [address] Care Team Providers Name Role Phone No Ref-Primary, Physician Primary Care Provider [phone] Reason for Visit Reason Comments Dizziness Eye Problem Encounter Details Date Type Department Care Team Description 04/18/2013 Emergency [facility] Noah Beltre MD Headache (Primary Dx); [facility] [address] [facility] Carbon monoxide exposure [address] [place] [address] [place] [address] [phone] Social History Tobacco Use Types Packs/Day Years Used Date Smoking Tobacco: Former Smokeless Tobacco: Current Alcohol Use Standard Drinks/Week Comments Yes 0 (1 standard drink = 0.6 oz pure alcoho l) Sex Assigned at Date Recorded Not on file documented as of this encounter Last Filed Vital Signs Vital Sign Reading Time Taken Comments Blood Pressure 125/89 04/18/2013 9:40 AM CDT Pulse 81 04/18/2013 7:53 AM CDT Temperature 36.9 ??C (98.5 ??F) 04/18/2013 7:53 AM CDT Respiratory Rate 18 04/18/2013 7:53 AM CDT Oxygen Saturation 100% 04/18/2013 9:45 AM CDT Inhaled Oxygen Concentration - - Weight - - Height - - Body Mass Index - - documented in this encounter Discharge Instructions Discharge InstructionsDevries, Noah M, MD - 04/18/2013 9:58 AM CDT Return to the Emergency Room if the following occurs: Worsened pain, dehydration, fever, or for any concern at anytime. Or, follow-up with the following provider as we discussed: Return to your primary doctor next week if still having symptoms. Medications discussed: Ibuprofen 600mg every 6 hours for pain (7 days duration). Tylenol 1000mg every 6 hours for pain (7 days duration). Avoid sources of carbon monoxide. If you received pain-relieving or sedating medication during your time in the ER, avoid alcohol, driving automobiles, or working with machinery. Also, a responsible adult must stay with you. If you had X-rays or labs done we will attempt to contact you if there is a change needed in your care. Call the Nurse Advice Line at or for any concern at anytime. documented in this encounter Medications at Time of Discharge Medication Sig Dispensed Refills Start Date End Date hydrOXYzine (ATARAX) 25 Take 1-2 tablets by 30 tablet 0 04/201311/28/2013 MG tabletIndications: mouth every 6 hours Anxiety as needed for anxiety. IBUPROFEN PO Take 800 mg by mouth 0 every 6 hours as needed. For headaches. States he takes it with Percocet. mirtazapine (REMERON) 30 Take 1 tablet by 30 tablet 0 10/1811/28/2013 MG tabletIndications: mouth At Bedtime. Depression QUEtiapine (SEROQUEL XR) Take 1 tablet by 30 tablet 0 10/1811/28/2013 300 MG 24 hr mouth daily. tabletIndications: Depression QUEtiapine (SEROQUEL) 25 Take 1-2 tablets by 30 tablet 0 11/28/2013 MG tabletIndications: mouth every 4 hours Depression as needed (anxiety). SUMAtriptan (IMITREX) 25 Take 1-2 tablets by 18 tablet 0 05/10/2013 MG tabletIndications: mouth at onset of Migraine headache for migraine. May repeat dose in 2 hours. Do not exceed 200 mg in 24 hours documented as of this encounter ED Notes Noah Beltre MD - 04/18/2013 9:59 AM CDT CHIEF COMPLAINT Chief Complaint Patient presents with ??? Dizziness ??? Eye Problem HPI Patient is a 37-year-old male presenting with headache and lightheadedness. Symptoms began last week. He reports the headache is been constant but waxing and waning. His lightheadedness is recurrent especially with changes in position. He describes some blurred vision occasionally as well and this seems to be associated with the lightheadedness. The headache is global. It is moderate to severe in severity. No obvious exacerbating or relieving factors. No neck pain. No fever. No eye pain or ear pain.No nasal congestion. No sore throat or cough. No tick exposure or skin rash. No trauma or injury. 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 He does work outside and has been doing his best to hydrate in the hot weather. He does not get headaches on a regular basis but does have a history of migraine. He tells me his migraine symptoms are usually different. MEDICAL HISTORY Past Medical History History reviewed. No pertinent past medical history. Current Problem List There is no problem list on file for this patient. Surgical History History reviewed. No pertinent past surgical history. Medications No current facility-administered medications on file prior to encounter. No current outpatient prescriptions on file prior to encounter. Allergies Allergies Allergen Reactions ??? Latex ??? Penicillins ??? Toradol Social History History Social History ??? Marital Status: Single Spouse Name: N/A Number of Children: N/A ??? Years of Education: N/A Occupational History ??? Not on file. Social History Main Topics ??? Smoking status: Former Smoker ??? Smokeless tobacco: Current User ??? Alcohol Use: Yes ??? Drug Use: No ??? Sexually Active: Other Topics Concern ??? Not on file Social History Narrative ??? No narrative on file Family History No family history on file. REVIEW OF SYSTEMS Ten point review of systems negative other than noted in the history of present illness. PHYSICAL EXAMINATION @VITALS@ General Patient is alert and in mild distress. Concerned about the underlying cause of his symptoms...Couldit be cancer? HEENT Head is atraumatic. Pupils equal, round, reactive to light. Extraocular movements are intact. Nose is mid-line without evidence of rhinorhea or epistaxis. Oral mucosa is moist . Neck Supple. Non-tender to palpation. Full ROM without pain. Cardiovascular Regular rate. Peripheral extremities are warm. Pulmonary No respiratory distress. Abdomen Not done. Musculoskeletal Non-tender over major muscles and joints, upper and lower extremities bilaterally. Neurological Alert. No difficulty with speech. Moving upper and lower extremities equally. Skin No evidence of rash or trauma. ED WORKUP EKG None. Labs Labs Ordered and Resulted from Time of ED Arrival Up to the Time of Departure from the ED CARBON MONOXIDE - Abnormal; Notable for the following: Carbon Monoxide 5.7 (*) All other components within normal limits CBC WITH PLATELETS DIFFERENTIAL BASIC METABOLIC PANEL VISION CHECKS Imaging CT head: neg. ED COURSE Discussion Patient has complete resolution of symptoms while here. The only intervention was fluid. CT negative. Blood negative except carbon monoxide which was slightly elevated. The patient does not smoke but is around smokers. He also has the exposure to his work vehicle as described above. This may certainlybe contributing to a headache that comes and goes. He does report persistent symptoms over the weekend though when he was away from work. Dehydration would also be a possible cause especially given hisexposure to heat. Follow up this week if still symptomatic. Critical Care None. Medications ??? sodium chloride 0.9 % 1,000 mL Intravenous Once ??? sodium chloride 0.9 % 1,000 mL Intravenous Once IMPRESSION 1. Headache 2. Carbon monoxide exposure New Prescriptions New Prescriptions No medications on file Noah Beltre MD 04/18/13 1006 Marizol Prieto RN - 04/18/2013 9:51 AM CDT Patient takes his O2 off says it bothers his nose. Marizol Prieto RN - 04/18/2013 8:07 AM CDT Labs drawn with IV insertion and sent Marilyn Valencia - 04/18/2013 7:57 AM CDT Orthostatics done: Lying BP 127/76 HR 67, Standing BP 130/84 HR 82 documented in this encounter Plan of Treatment Not on filedocumented as of this encounter Procedures Procedure Name Priority Date/Time Associated Comments Diagnosis CT HEAD W/O CONTRAST STAT 04/18/2013 8:45 AM R esults for this CDT procedure are i n the results section. CARBON MONOXIDE STAT 04/18/2013 8:25 AM Result s for this CDT procedure are i n the results section. CBC WITH PLATELETS & STAT 04/18/2013 8:00 AM R esults for this DIFFERENTIAL CDT procedure are i n the results section. BASIC METABOLIC PANEL STAT 04/18/2013 8:00 AM Results for this CDT procedure are i n the results section. EKG 12-LEAD, TRACING STAT 04/18/2013 7:54 AM R esults for this ONLY CDT procedure are i n the results section. documented in this encounter Results CT Head w/o Contrast (04/18/2013 8:45 AM CDT) Anatomical Region Laterality Modality Head, SUBRAD CT NEURO, SUBRAD CT NEURO, P CT NEURO Computed Tomography Specimen (Source) Anatomical Collection Method Collection Time Re ceived Time Location / / Volume Laterality 04/18/2013 8:45 AM CDT Impressions 04/18/2013 8:54 AM CDT IMPRESSION: ??Normal head CT. No evidence for acute intracranial pathology. MANAN TILLMAN MD Narrative 04/18/2013 8:[address] OF THE HEAD WITHOUT CONTRAST 04/18/2013 8:45 AM COMPARISON: None. HISTORY: ??Dizziness. TECHNIQUE: Axial CT images of the head f rom the skull base to the vertex were acquired without IV contrast . FINDINGS: The ventricles and basal ciste rns are within normal limits in configuration. There is no midline sh ift. There are no extra-axial fluid collections. ??Cr-white differen tiation is well maintained. No intracranial hemorrhage, mass or rece nt infarct. The visualized paranasal sinuses are wel l-aerated. There is no mastoiditis. There are no fractures of t he visualized bones. Procedure Note Manan Tillman MD - 04/18/2013Forma tting of this note might be different from the original. CT OF THE HEAD WITHOUT CONTRAST 04/18/2013 8:45 AM COMPARISON: None. HISTORY: Dizziness. TECHNIQUE: Axial CT images of the head f rom the skull base to the vertex were acquired without IV contrast . FINDINGS: The ventricles and basal ciste rns are within normal limits in configuration. There is no midline sh ift. There are no extra-axial fluid collections. Cr-white differenti ation is well maintained. No intracranial hemorrhage, mass or rece nt infarct. The visualized paranasal sinuses are wel l-aerated. There is no mastoiditis. There are no fractures of t he visualized bones. IMPRESSION IMPRESSION: Normal head CT. No evidence for acute intracranial pathology. MANAN TILLMAN MD Noah Beltre MD IMG CT ORDERABLES (ABNORMAL) Carbon monoxide (04/18/2013 8:25 AM CDT) athologist Signature Carbon 5.7 (H) 0 - 2 % [facility] LAB Specimen Anatomical Collection Method Collection Time Receive d Time (Source) Location / / Volume Laterality Blood specimen 04/18/2013 8:25 AM 013 8:46 (specimen) CDT AM CDT Noah Beltre MD LAB - BLOOD ORDERABLES Performing Organization Address City/State/ZIP Code Phon e Number [facility] [address] [place], [place] [address] [address] [facility] Basic metabolic panel (04/18/2013 8:00 AM CDT) athologist Signature Sodium 140 133 - 144 [facility] mmol/L [facility] Potassium 4.2 3.4 - 5.3 [facility] mmol/L [facility] Chloride 103 94 - 109 [facility] mmol/L [facility] Carbon Dioxide 27 20 - 32 [facility] mmol/L [facility] Anion Gap 10 6 - 17 [facility] mmol/L [facility] Glucose 89 60 - 99 [facility] mg/dL [facility] Urea Nitrogen 14 5 - 24 [facility] mg/dL [facility] Creatinine 0.95 0.66 - [facility] 1.25 mg/dL [facility] GFR Estimate 88 >60 [facility] mL/min/1.7 [facility] GFR Estimate If >90 >60 [facility] Black mL/min/1.7 [facility] Calcium 9.0 8.5 - 10.4 [facility] mg/dL [facility] Specimen Anatomical Collection Method Collection Time Receive d Time (Source) Location / / Volume Laterality Blood specimen 04/18/2013 8:00 AM 013 8:14 (specimen) CDT AM CDT Noah Beltre MD LAB - BLOOD ORDERABLES Performing Organization Address City/State/ZIP Code Phon e Number [facility] [address] [place], [place] [address] [address] [facility] [facility] CBC with platelets, differential (04/18/2013 8:00 AM CDT) [facility] gist Method Time Signature WBC 5.3 4.0 - [place] 11.0 [facility] 10e9/[facility] RBC Count 4.94 4.4 - 5.9 [place] 10e12/L [facility] Hemoglobin 15.5 13.3 - [place] 17.7 g/dL [facility] Hematocrit 45.4 40.0 - [place] 53.0 % [facility] MCV 92 78 - 100 [facility] MCH 31.4 26.5 - [place] 33.0 pg [facility] MCHC 34.1 31.5 - [place] 36.5 g/dL [facility] RDW 12.2 10.0 - [place] 15.0 % [facility] Platelet Count 250 150 - 450 [place] 10e9/L [facility] Diff Method Automated [place] Method [facility] % Neutrophils 65.5 % [facility] % Lymphocytes 23.8 % [facility] % Monocytes 8.7 % [facility] % Eosinophils 1.0 % [facility] % Basophils 0.6 % [facility] % Immature 0.4 % [place] Granulocytes [facility] Absolute 3.5 1.6 - 8.3 [place] Neutrophil 10e9/L [facility] Absolute 1.3 0.8 - 5.3 [place] Lymphocytes 10e9/L [facility] Absolute 0.5 0.0 - 1.3 [place] Monocytes 10e9/L [facility] Absolute 0.1 0.0 - 0.7 [place] Eosinophils 10e9/L [facility] Absolute 0.0 0.0 - 0.2 [place] Basophils 10e9/L [facility] Abs Immature 0.0 0 - 0.4 [place] Granulocytes 10e9/L [facility] Specimen Anatomical Collection Method Collection Time Receive d Time (Source) Location / / Volume Laterality Blood specimen 04/18/2013 8:00 AM 013 8:14 (specimen) CDT AM CDT Noah Beltre MD LAB - BLOOD ORDERABLES Performing Organization Address City/State/ZIP Code Phon e Number [facility] [address] [place], [place] [address] [address] [facility] EKG 12 lead (04/18/2013 7:54 AM CDT) Narrative This result has an attachment that is no t available. Noah Beltre MD ECG ORDERABLES documented in this encounter Visit Diagnoses Diagnosis Headache(784.0) - Primary Headache Carbon monoxide exposure Contact with and (suspected) exposure to other potentially hazardous substances documented in this encounter Administered Medications Inactive Administered Medications - up to 3 most recent administrations Medication Order MAR Action Action Date Dose Rate Site sodium chloride 0.9 % New Bag 04/18/2013 8:08 AM CDT 1,000 mLs 10 00 mL/hr BOLUS 1,000 mL Intravenous, 1,000 mL, ONCE, at 1,000 mL/hr, Administer over 1 Hours, On Thu04/18/13 at 0808, For 1 dose documented in this encounter Active and Recently Administered Medications Times are shown in CDT. Scheduled Medication Order 04/16/2013 04/17/2013 04/18/2013 sodium chloride 0.9 % BOLUS 1,000 mL (COMPLETED) 0808 (New Bag - Provider: Marizol Prieto, RN)1002 (Stopped - Provider: Marizol Prieto RN) Intravenous, 1,000 mL, ONCE, at 1,000 mL /hr, for 1 Hours, Thu04/18/13 at 0808, For 1 dose documented in this encounter Care Teams Manager Monitoring Relationship Specialty Start Date End Date No Ref-Primary, Physician PCP - General 02/08/12 12/21/13 documented as of this encounter
--- OUTSIDE RECORDS SUMMARY | 2022-08-19 07:03 | XMS_ITS | Encounter Summary ---
:1975 Author Organization [facility] [facility] Address [address] [place] [address] Care Team Providers Name Role Phone No Ref-Primary, Physician Primary Care Provider Reason for Referral - Closed Specialty Diagnoses / Procedures Referred By Contact Refer red To Contact Radiology Diagnoses Headache(784.0) Pietro Moreau MD [facility] M[facility] Procedures MRA Carotid & MR Angiogram [address] [place] [address] [place] [address] Fax: Referral ID Status Reason Start Date Expiration Date Visits Requ ested Visits Authorized [id number] Closed 05/13/2013 11/09/2013 1 1 Reason for Visit - Closed Specialty Diagnoses / Procedures Referred By Contact Refer red To Contact Radiology Diagnoses Headache(784.0) Pietro Moreau MD Wy Mri Procedures MRA Carotid & MR Angiogram [address] [place] [address] [place] [address] Fax: Referral ID Status Reason Start Date Expiration Date Visits Requ ested Visits Authorized [id number] Closed 05/13/2013 11/09/2013 1 1 Encounter Details Date Type Department Care Team Description 05/17/2013 Hospital Encounter [facility] Man Moreau MD Headache [facility] [address] [facility] [place] [address] [place] [phone] [address] [place], [place] [address] (Wo rk) Social History Tobacco Use Types Packs/Day Years Used Date Smoking Tobacco: Former Smokeless Tobacco: Current Alcohol Use Standard Drinks/Week Comments Yes 0 (1 standard drink = 0.6 oz pure alcoho l) rare Sex Assigned at Date Recorded Not on file documented as of this encounter Medications at Time of Discharge Medication Sig Dispensed Refills Start Date End Date hydrOXYzine (ATARAX) 25 MG Take 1-2 tablets by 30 tablet 0 10/18/2012 11/28/2013 tabletIndications: Anxiety mouth every 6 hours as needed for anxiety. IBUPROFEN PO Take 800 mg by 0 12/23/19 14 mouth every 6 hours as needed. For headaches. States he takes it with Percocet. methylprednisoLONE (MEDROL Follow package 21 tablet 0 05/1009/05/2013 DOSEPAK) 4 MG tablet instructions mirtazapine (REMERON) 30 Take 1 tablet by 30 tablet 0 10/1811/28/2013 MG tabletIndications: mouth At Bedtime. Depression oxyCODONE-acetaminophen Take 1-2 tablets by 24 tablet 0 11/28/2013 (PERCOCET) 5-325 MG per mouth every 6 hours tablet as needed for pain. QUEtiapine (SEROQUEL XR) Take 1 tablet by 30 tablet 0 10/1811/28/2013 300 MG 24 hr mouth daily. tabletIndications: Depression QUEtiapine (SEROQUEL) 25 Take 1-2 tablets by 30 tablet 0 11/28/2013 MG tabletIndications: mouth every 4 hours Depression as needed (anxiety). documented as of this encounter Miscellaneous Notes Initial Assessments - Abstract, Provider - 05/19/2013 12:33 PM CDT documented in this encounter Plan of Treatment Not on filedocumented as of this encounter Procedures Procedure Name Priority Date/Time Associated Diagnosis Comme nts MRA CAROTID & MR Routine 05/17/2013 7:34 AM Headache Resul ts for this ANGIOGRAM CDT procedure are i n the results section. documented in this encounter Results MRA Carotid & MR Angiogram (05/17/2013 7:34 AM CDT) Anatomical Region Laterality Modality Neck, SUBRAD MR NEURO, UMP MR NEURO Magn etic Resonance Specimen (Source) Anatomical Collection Method Collection Time Re ceived Time Location / / Volume Laterality 05/17/2013 7:34 AM CDT Impressions 05/17/2013 8:04 AM CDT IMPRESSION: Normal MR angiogram of the neck. BUNNY OCAMPO MD Narrative 05/17/2013 8:04 AM CDT MRA NECK W\T\W/O CONTRAST* ?? 05/17/2013 7 :34 AM HISTORY: Headache and blurred vision. TECHNIQUE: 2D [id number] MR angiogra m of the neck without contrast and 3D MR angiogram of the neck with 10 mL gadolinium IV. Estimates of carotid stenoses are made r elative to the distal internal carotid artery diameters except as noted. COMPARISON: MR brain 05/10/2013 which was normal. FINDINGS: Right carotid: ??Normal. Left carotid: ??Normal. Vertebral and basilar: ?? Normal. Aortic arch and intrathoracic arteries: ??Normal. Procedure Note Bunny Ocampo MD - 05/17/2013Forma tting of this note might be different from the original. MRA NECK W\T\W/O CONTRAST* 05/17/2013 7:34 AM HISTORY: Headache and blurred vision. TECHNIQUE: 2D [id number] MR angiogra m of the neck without contrast and 3D MR angiogram of the neck with 10 mL gadolinium IV. Estimates of carotid stenoses are made r elative to the distal internal carotid artery diameters except as noted. COMPARISON: MR brain 05/10/2013 which was normal. FINDINGS: Right carotid: Normal. Left carotid: Normal. Vertebral and basilar: Normal. Aortic arch and intrathoracic arteries: Normal. IMPRESSION IMPRESSION: Normal MR angiogram of the n nabil. BUNNY OCAMPO MD Pietro Moreau MD IMG MRI ORDERABLES documented in this encounter Visit Diagnoses Diagnosis Headache(784.0) Headache documented in this encounter Administered Medications Inactive Administered Medications - up to 3 most recent administrations Medication Order MAR Action Action Date Dose Rate Site gadobutrol (GADAVIST) injection 10 Given 05/17/2013 7:10 AM CDT 10 mLs mL 10 mL, Intravenous, ONCE, On Thu05/17/13 at 0715, For 1 dose, Supplied by, and administered by MRI. documented in this encounter Care Teams Laser Machine Operator Relationship Specialty Start Date End Date No Ref-Primary, Physician PCP - General 02/08/12 12/21/13 documented as of this encounter
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
--- OUTSIDE RECORDS SUMMARY | 2022-08-19 07:03 | XMS_ITS | Encounter Summary ---
:1975 Author Organization [place] Address [facility] [place] [address] Care Team Providers Name Role Phone Primary Dr, Unknown Primary Care Provider Unavailable Reason for Visit Reason Comments ER F/U Seen in ED 12/22/2013 for ch est pain, DX with questionable pericarditis. Symptoms have resolved didn' t need to take the percocet. He will need to work stating ok to return to his job. Encounter Details Date Type Department Care Team Description 12/26/2013 Office Visit [facility] Nicanor Maldonado [facility] [place] MD Niels (Primary Dx) [address] [place] [id number] [phone] Social History Tobacco Use Types Packs/Day Years Used Date Smoking Tobacco: Former Smokeless Tobacco: Current Alcohol Use Standard Drinks/Week Comments Yes 0 (1 standard drink = 0.6 oz pure alcoho l) rare Sex Assigned at Date Recorded Not on file documented as of this encounter Last Filed Vital Signs Vital Sign Reading Time Taken Comments Blood Pressure 100/60 12/26/2013 9:27 AM CDT Pulse 64 12/26/2013 9:27 AM CDT Temperature 36.4 ??C (97.6 ??F) 12/26/2013 9:27 AM CDT Respiratory Rate 14 12/26/2013 9:27 AM CDT Oxygen Saturation - - Inhaled Oxygen Concentration - - Weight 63.4 kg (139 lb 12.8 oz) 12/26/2013 9:27 AM CDT Height 161.9 cm (5' 3.75) 12/26/2013 9:27 AM CDT Body Mass Index 24.19 12/26/2013 9:27 AM CDT documented in this encounter Patient Instructions Patient InstructionsNicanor Diaz MD - 12/26/2013 9:54 AM CDT ASSESSMENT: 786.59 Atypical chest pain (primary encounter diagnosis) Comment: no sign of heart problems. Lungs are good. Not sure what the pain was from. It is possibly from muscles in the chest wall. Plan: You have been doing well. You could stop the aspirin at this time. If you have more pain, recheck. If you have any pains with exercise or exertion, sometimes this can be a sign of heart problems. documented in this encounter Progress Notes Nicanor Diaz MD - 12/26/2013 9:28 AM CDT SUBJECTIVE: Conor Jaimes is a 38 year old male who presents to clinic today for the following health issues: Chief Complaint Patient presents with ??? ER F/U Seen in ED 12/22/2013 for chest pain, DX with questionable pericarditis. Symptoms have resolved didn't need to take the percocet. He will need to work stating ok to return to his job. See ED summary notes below. ED/UC Followup: Facility: [facility] Date of visit: 12/22/2013 Reason for visit: Chest Pain Current Status: resolved He had chest pain lasting a couple hours. No pain since that time. He has been taking 81mg aspirin 3per day. Pain had been worse with certain movements. Past history of similar problems: no. No history of exertional chest pains. He is active with stretching exercises. Occupation: walks at work. Very active in his work. No recent URI. No respiratory symptoms. GI: No nausea, vomiting, heartburn, abdominal pain, diarrhea, constipation or change in bowel habits : No urinary frequency or dysuria, bladder or kidney problems General: No change in weight, sleep or appetite. Normal energy. No fever or chills Patient Active Problem List Diagnosis Date Noted ??? Depression, major 10/05/2012 Priority: Medium ??? CARDIOVASCULAR SCREENING; LDL GOAL LESS THAN 160 05/13/2013 Priority: Low Score not calculated. Missing: Total Cholesterol, HDL OBJECTIVE:Blood pressure 100/60, pulse 64, temperature 97.6 ??F (36.4 ??C), temperature source Tympanic, resp. rate 14, height 5' 3.75 (1.619 m), weight 139 lb 12.8 oz (63.413 kg). BMI=Body mass indexis 24.19 kg/(m^2). GENERAL APPEARANCE ADULT: Alert, no acute distress, healthy appearance NECK: No adenopathy,masses or thyromegaly RESP: lungs clear to auscultation CV: normal rate, regular rhythm, no murmur or gallop ABDOMEN: soft, no organomegaly, masses or tenderness MS: extremities normal, no peripheral edema ASSESSMENT: 786.59 Atypical chest pain (primary encounter diagnosis) Comment: no sign of heart problems. Lungs are good. Not sure what the pain was from. It is possibly from muscles in the chest wall. Plan: You have been doing well. You could stop the aspirin at this time. If you have more pain, recheck. If you have any pains with exercise or exertion, sometimes this can be a sign of heart problems. Notes from ED visit on 12/22: The history is provided by the patient. Conor Jaimes is a 38 year old male who presents complaining of progressively worsening left sided chest pain onset 1 hour ago with associated lightheadedness and dizziness. The patient's chest pain radiates to his arm arm and to the left side of his leg, describing his chest pain as sharp and b urning. He rates his chest pain at a constant 10/10. His pain is pleuritic and is worse with bending over but is not worse with ambulation. He denies any history of similar symptoms. The patient also reports a bruise to his right calf, under his tattoo, but denies any pain in this area. He denies anyrecent travels or prolonged periods of immobilization. He denies any abdominal pain, diarrhea, constipation, black or bloody stools, fevers or chills. He reports he had 2 normal BMs today. The patient has a positive maternal family history for heart disease - but not premature CAD. The patient has a history of pneumonia but denies any chronic medical conditions. He denies any illicit drug use or alcohol use. The patient has been using smokeless tobacco since he was 10 years old. HE had normal troponin and Chest CT. EKG were all normal. documented in this encounter Nursing Notes 12/26/2013 9:00 AM CDT >> Caitlin Childs CMA ThuDec 26, 2013 9:31 AM Patient presents with: ER F/U - Seen in ED 12/22/2013 for chest pain, DX with questionable pericarditis. Symptoms have resolved didn't need to take the percocet. He will need to work stating ok to return to his job. Initial BP 100/60 Pulse 64 Temp 97.6 ??F (36.4 ??C) (Tympanic) Resp 14 Ht 5' 3.75 (1.619 m) Wt 139 lb 12.8 oz (63.413 kg) BMI 24.19 kg/m2 Estimated Body mass index is 24.19 kg/(m^2) as calculated from the following: Height as of this encounter: 5' 3.75(1.619 m). Weight as of this encounter: 139 lb 12.8 oz(63.413 kg). BP completed using cuff size: large documented in this encounter Plan of Treatment Not on filedocumented as of this encounter Visit Diagnoses Diagnosis Atypical chest pain - Primary Other chest pain documented in this encounter Care Teams Erosion Control Specialist Relationship Specialty Start Date End Date Primary Fabiola Bertrand MD PCP - General 12/22/1305/14 documented as of this encounter
--- OUTSIDE RECORDS SUMMARY | 2022-08-19 07:03 | XMS_ITS | Encounter Summary ---
:1975 Author Organization [place] Address [address] [place] [address] Care Team Providers Name Role Phone No Ref-Primary, Physician Primary Care Provider Reason for Visit Reason Comments Orders Pt is being reffered to [email or web address] hand surgeon Encounter Details Date Type Department Care Team Description 11/28/2013 Orders Only [facility] [place] L[facility] t wrist pain [facility] (Primary Dx) [place] XXX RESIGNED XXX [address] [facility] [address] [facility] [address] [place] [address] [place], [place] [phone] (Wo rk) [phone] Social History Tobacco Use Types Packs/Day Years Used Date Smoking Tobacco: Former Smokeless Tobacco: Current Alcohol Use Standard Drinks/Week Comments Yes 0 (1 standard drink = 0.6 oz pure alcoho l) rare Sex Assigned at Date Recorded Not on file documented as of this encounter Plan of Treatment Not on filedocumented as of this encounter Visit Diagnoses Diagnosis Left wrist pain - Primary Pain in joint, forearm documented in this encounter Care Teams Back Up Machine Operator Relationship Specialty Start Date End Date No Ref-Primary, Physician PCP - General 02/08/12 12/21/13 documented as of this encounter
--- OUTSIDE RECORDS SUMMARY | 2022-08-19 07:03 | XMS_ITS | Encounter Summary ---
:1975 Author Organization [facility] Address [address] [place] [address] Care Team Providers Name Role Phone No Ref-Primary, Physician Primary Care Provider [phone] Reason for Visit Reason Comments Back Pain Encounter Details Date Type Department Care Team Description 04/14/2020 Emergency [facility] Vo, Isidro Noland MD Chronic right-sided [facility] low back pain, [address] [place] [address] [place] [address] E sciatica present [id number] [place] [address] (Wo rk) Social History Tobacco Use Types [...] Sign Reading Time Taken Comments Blood Pressure 136/86 04/14/2020 3:00 AM CDT Pulse 77 04/14/2020 3:00 AM CDT Temperature - - Respiratory Rate - - Oxygen Saturation 99% 04/14/2020 3:25 AM CDT Inhaled Oxygen Concentration - - Weight - - Height - - Body Mass Index - - documented in this encounter Discharge Instructions Discharge InstructionsIsidro Zarco MD - 04/14/2020 3:19 AM CDT Discharge Instructions Back Pain You were seen today for back pain. Back pain can have many causes, but most will get better without surgery or other specific treatment. Sometimes there is a herniated (???slipped?? ) disc. We do not usually do MRI scans to look for these right away, since most herniated discs will get better on theirown with time. Today, we did not find any evidence that your back pain was caused by a serious condition. However, sometimes symptoms develop over time and cannot be found during an emergency visit, soit is very important that you follow up with your primary provider. Generally, every Emergency Department visit should have a follow-up clinic visit with either a primary or a specialty clinic/provider. Please follow-up as instructed by your emergency provider today. Return to the Emergency Department if: You develop a fever with your back pain. You have weakness or change in sensation in one or both legs. You lose control of your bowels or bladder, or cannot empty your bladder (cannot pee). Your pain gets much worse. Follow-up with your provider: Unless your pain has completely gone away, please make an appointment with your provider within one week. Most of the routine care for back pain is available in a clinic and not the Emergency Department. You may need further management of your back pain, such as more pain medication, imaging such as an X-ray or MRI, or physical therapy. What can I do to help myself? Remain Active -- People are often afraid that they will hurt their back further or delay recovery byremaining active, but this is one of the best things you can do for your back. In fact, staying in bed for a long time to rest is not recommended. Studies have shown that people with low back pain recover faster when they remain active. Movement helps to bring blood flow to the muscles and relieve muscle spasms as well as preventing loss of muscle strength. Heat -- Using a heating pad can help with low back pain during the first few weeks. Do not sleep with a heating pad, as you can be burned. Pain medications - You may take a pain medication such as Tylenol?? (acetaminophen), Advil??, Motrin?? (ibuprofen) or Aleve?? (naproxen). If you were given a prescription for medicine here today, be sure to read all of the information (including the package insert) that comes with your prescription. This will include important information about the medicine, its side effects, and any warnings that you need to know about. The pharmacist who fills the prescription can provide more information and answer questions you may have about the medicine. If you have questions or concerns that the pharmacist cannot address, please call or return to the Emergency Department. Remember that you can always come back to the Emergency Department if you are not able to see your regular provider in the amount of time listed above, if you get any new symptoms, or if there is anything that worries you. AttachmentsThe following attachments cannot be sent through Care Everywhere.Back Exercises, Lumbar (Cymro)documented in this encounter Medications at Time of Discharge Medication Sig Dispensed Refills Start Date End Date cyclobenzaprine (FLEXERIL) Take 1 tablet (10 20 tablet 0 04/20/2020 10 MG tablet mg) by mouth 3 times daily as needed for muscle spasms naproxen (NAPROSYN) 500 MG Take 1 tablet (500 20 tablet 0 0 04/14/2020 04/24/2020 tablet mg) by mouth 2 times daily (with meals) for 10 days documented as of this encounter ED Notes Maggy Fierro. DOMENIC Molina - 04/14/2020 3:40 AM CDT I explained discharge paperwork with patient and explained pain management. Pt reported I've tried these medications before they don't work. I have had a ton of surgeries see and showed me scars on his shoulder. Pt appeared frustrated and verbalized understanding of plan of care. Prerna Tomlinson RN - 04/14/2020 1:19 AM CDT Pt reports he has lower back pain that goes into both legs and notes painful urination. Vo, Isidro Noland MD - 04/14/2020 1:15 AM CDT History Chief Complaint: Back Pain HPI Alon Jaimes is a 44 year old male who presents with back pain. States that the pain started 1 day ago. R lateral low lumbar back. Radiates down both legs, to both feet. No urinary or fecal incontinence or retention, no saddle anesthesia. No abd pain, no hematuria. No unexpected weight loss or night sweats. No fevers. Chart reviewed. Has been seen x2 for lumbar back pain at [facility], on 04/03. When asked about this, pt states he does have a history of lumbar back issues, that he has seen his PCP about this, that he is getting a referral to see a med specialist however it's difficult to get in due to COVID pandemic. Allergies: Latex Penicillins Toradol Tape Medications: Robaxin Medrol dosepak Adderall Albuterol inhaler Neurontin Flexeril Past Medical History: Alcohol abuse Alcohol related seizure Attention deficit hyperactivity disorder Insomnia Anxiety Migraines Depression Past Surgical History: Shoulder surgery (R) Hand and wrist surgery (L) Carpal tunnel release Rotator cuff repair (L) Family History: Alcohol abuse (Father) Asthma (Mother) Social History: Smoking status: Former Alcohol use: Not currently, sober 6 years Drug use: No PCP: No primary care provider on file. Marital Status: Single [1] Review of Systems Gastrointestinal: No fecal incontinence or retention Genitourinary: No incontinence or retention Musculoskeletal: Positive for back pain. Neurological: Negative for numbness. All other systems reviewed and are negative. Physical Exam Patient Vitals for the past 24 hrs: BP Pulse SpO2 04/14/20 0220 -- -- 100 % 04/14/20 0219 -- -- 95 % 04/14/20 0218 138/86 90 -- Physical Exam I have reviewed the triage vital signs Constitutional: Appears stated age Eyes: No discharge, symmetrical lids ENT: Moist mucous membranes, no ear discharge Neck: Full range of motion Respiratory: No respiratory distress, equal chest rise Cardiovascular: Regular rate and rhythm, no cyanosis Gastrointestinal: Nondistended, nonscaphoid Musculoskeletal: No gross deformities. Skin: Warm and well perfused. No visible rash. Neurologic: Moves all extremities, speech fluent without dysarthria. 5/5 motor and SILT BLE. 2+ patellar reflexes b/l. Psychiatric: Appropriate affect, alert and interactive Back: R lateral low lumbar TTP without overlying skin change. No midline TTP. +SLR test. Emergency Department Course Procedures: Trigger point injection: Verbal consent obtained. Alternatives including no treatment and medication alone discussed. Risks including infection and injury to adjacent structures discussed. Skin prepped with alcohol wipe. Pointof maximal pain identified. 4 mL of lidocaine 1% without epi infiltrated in a field in musculature of area of maximal pain. Pt tolerated the procedure well with no immediate complications. Impression & Plan Medical Decision MakinM presenting with back pain. Exam and history reassuring against cauda equina, spinal epidural abscess, AAA, malignancy, osteomyelitis or diskitis. Longstanding h/o R lumbar back pain, with 2 recent ED visits for such, with negative CT imaging. In absence of trauma, with lateral nature of pain, do not feel that repeat XR or CT is of utility presently. Given lack of findings c/f spinal or cauda equina, or infectious or hemorrhagic process, no indication for emergent MRI presently. Trigger point injection performed, with only modest improvement in pain. Given longstanding history, advised pt that pain is likely multifactorial. Pt with referral to spinespecialist and is being managed actively by PCP currently; advised continuing with this course. Strict RTED precautions given. Diagnosis: ICD-10-CM 1. Chronic right-sided low back pain, unspecified whether sciatica present M54.5 G89.29 Disposition: discharged to home Discharge Medications: New Prescriptions CYCLOBENZAPRINE (FLEXERIL) 10 MG TABLET Take 1 tablet (10 mg) by mouth 3 times daily as needed for muscle spasms NAPROXEN (NAPROSYN) 500 MG TABLET Take 1 tablet (500 mg) by mouth 2 times daily (with meals) for 10days Kareem Pitts 04/14/2020 [facility] EMERGENCY DEPARTMENT Kareem Sommers am serving as a scribe at 2:43 AM on 04/14/2020 to document services personally performed by Isidro Zarco MD based on my observations and the provider's statements to me. Isidro Zarco MD 04/14/20 0319 documented in this encounter Plan of Treatment Not on filedocumented as of this encounter Procedures Procedure Name Priority Date/Time Associated Comments Diagnosis UA MACROSCOPIC WITH STAT 04/14/2020 2:16 AM Re sults for this REFLEX TO MICRO AND CDT procedur e are in CULTURE the results section. documented in this encounter Results (ABNORMAL) UA reflex to Microscopic and Culture (04/14/2020 2:16 AM CDT) Component Value Ref Test Analysis Performed At [facility] gist Range Method Time Signature Color Urine Light Yellow 04/14/2020 [place] 2:31 AM [facility] Appearance Urine Clear 04/14/2020 [place] 2:31 AM [facility] Glucose Urine Negative NEG^Nega 04/14/2020 [facility] AM [facility] mg/dL [facility] Bilirubin Urine Negative NEG^Nega 04/14/2020 [place] tive 2:31 AM [facility] Ketones Urine Trace (A) NEG^Nega 04/14/2020 [facility] 2:31 AM [facility] mg/dL HOSPITAL Specific [place] 1.020 1.003 - 04/14/2020 [place] Urine 1.035 2:31 AM [facility] Blood Urine Negative NEG^Nega 04/14/2020 [place] tive 2:31 AM [facility] pH Urine 7.0 5.0 - 04/14/2020 [place] 7.0 pH 2:31 AM [facility] Protein Albumin Negative NEG^Nega 04/14/2020 [place] Urine tive 2:31 AM [facility] mg/dL [facility] Urobilinogen Normal 0.0 - 04/14/2020 [place] mg/dL 2.0 2:31 AM [facility] mg/dL [facility] Nitrite Urine Negative NEG^Nega 04/14/2020 [place] tive 2:31 AM [facility] Leukocyte Negative NEG^Nega 04/14/2020 [place] Esterase Urine tive 2:31 AM [facility] Source Unspecified 04/14/2020 [place] Urine 2:16 AM [facility] Specimen (Source) Anatomical Collection Method Collection Time Re ceived Time Location / / Volume Laterality Unspecified Urine 04/14/2020 2:16 020 2:25 AM CDT AM CDT Isidro Watson MD LAB - URINE ORDERABLES Performing Organization Address City/State/ZIP Code Phon e Number M [facility] [address] [place], [place] [address] [facility] [address] [place], [place] [address] [facility] [phone] documented in this encounter Visit Diagnoses Diagnosis Chronic right-sided low back pain, unspe cified whether sciatica present documented in this encounter Administered Medications Inactive Administered Medications - up to 3 most recent administrations Medication Order MAR Action Action Date Dose Rate Site HYDROcodone-acetaminophen Given 04/14/2020 1:34 AM CDT 1 tablet (NORCO) 5-325 MG per tablet 1 tablet 1 tablet, Oral, ONCE, On 04/14/20 at 0131, For 1 dose, Maximum acetaminophen dose from all sources= 75 mg/kg/day not to exceed 4 grams documented in this encounter Active and Recently Administered Medications Times are shown in CDT. Scheduled Medication Order 04/12/2020 04/13/2020 04/14/2020 HYDROcodone-acetaminophen (NORCO) 5-325 MG per tablet 1 tablet ( COMPLETED) 0134 (Given - Provider: Prerna Tomlinson RN) 1 tablet, Oral, ONCE, 04/14/20 at 0131 , For 1 dose, Maximum acetaminophen dose from all sources= 75 mg/kg/day not to exceed 4 grams documented in this encounter Care Teams Senior Sas Developer Relationship Specialty Start Date End Date No Ref-Primary, Physician PCP - General 04/14/20 09/03/21 documented as of this encounter
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
--- OUTSIDE RECORDS SUMMARY | 2022-08-19 07:03 | XMS_ITS | Encounter Summary ---
:1975 Author Organization [facility] Address [address] [facility] [place] [address] Care Team Providers Name Role Phone No Ref-Primary, Physician Primary Care Provider [phone] Encounter Details Date Type Department Care Team Description 05/17/2013 Results Only [facility] Pietro Moreau MD Neurology Clinic [facility] [address] [place] [address] [place], [place] [address] (Wo rk) Social History [...] Name Priority Date/Time Associated Diagnosis Comme nts MRV BRAIN W/O 05/17/2013 7:36 AM Results for this CONTRAST CDT procedure are i n the results section. documented in this encounter Results MRA Venogram Brain w/o Cont Angiogram (05/17/2013 7:36 AM CDT) Anatomical Region Laterality Modality Head, SUBRAD MR NEURO, UMP MR NEURO Othe r Specimen (Source) Anatomical Collection Method Collection Time Re ceived Time Location / / Volume Laterality 05/17/2013 7:36 AM CDT Impressions 05/17/2013 8:06 AM CDT IMPRESSION: Normal MR venogram of the dural venous sinuses. BUNNY OCAMPO MD Narrative 05/17/2013 8:06 AM CDT MRA VENOGRAM BRAIN WITHOUT CONTRAST 2012 7:36 AM HISTORY: ??Headaches. COMPARISON: MRA today. MR brain 3. TECHNIQUE: Routine MR venogram without g adolinium and with 10 mL Gadavist IV. FINDINGS: MR venogram is normal. No evid ence for dural venous thrombosis. Procedure Note Bunny Ocampo MD - 05/17/2013Forma tting of this note might be different from the original. MRA VENOGRAM BRAIN WITHOUT CONTRAST 2012 7:36 AM HISTORY: Headaches. COMPARISON: MRA today. MR brain 3. TECHNIQUE: Routine MR venogram without g adolinium and with 10 mL Gadavist IV. FINDINGS: MR venogram is normal. No evid ence for dural venous thrombosis. IMPRESSION IMPRESSION: Normal MR venogram of the du ral venous sinuses. BUNNY OCAMPO MD Pietro Moreau MD IMJamar MRI ORDERABLES documented in this encounter Visit Diagnoses Not on filedocumented in this encounter Care Teams Staffing Executive Relationship Specialty Start Date End Date No Ref-Primary, Physician PCP - General 02/08/12 12/21/13 documented as of this encounter
--- OUTSIDE RECORDS SUMMARY | 2022-08-19 07:03 | XMS_ITS | Encounter Summary ---
:1975 Author Organization [place] Address [address] [place] [address] Care Team Providers Name Role Phone No Ref-Primary, Physician Primary Care Provider [phone] Reason for Visit Reason Comments Dental Pain Encounter Details Date Type Department Care Team Description 10/27/2013 Emergency [facility] Florinda Riley Pain, de ntal (Primary [facility] ORESTES Moss Dx) [address] [facility] [place] [address] [address] [phone] [place], [place] [address] (Wo rk) Social History Tobacco Use Types Packs/Day Years Used Date Smoking Tobacco: Former Smokeless Tobacco: Current Alcohol Use Standard Drinks/Week Comments Yes 0 (1 standard drink = 0.6 oz pure alcoho l) rare Sex Assigned at Date Recorded Not on file documented as of this encounter Last Filed Vital Signs Vital Sign Reading Time Taken Comments Blood Pressure 126/86 10/27/2013 11:14 AM OFFICE ASSISTANT Pulse - - Temperature 36.5 ??C (97.7 ??F) 10/27/2013 11:14 AM OFFICE ASSISTANT Respiratory Rate 20 10/27/2013 11:14 AM OFFICE ASSISTANT Oxygen Saturation 100% 10/27/2013 11:14 AM OFFICE ASSISTANT Inhaled Oxygen Concentration - - Weight - - Height - - Body Mass Index - - documented in this encounter Medications at Time of Discharge Medication Sig Dispensed Refills Start Date End Date clindamycin (CLEOCIN) Take 1 capsule (300 40 capsule 0 10/2711/06/2013 300 MG capsule mg) by mouth 4 times daily for 10 days HYDROcodone-acetaminophe Take 1-2 tablets by 10 tablet 0 11/28/2013 n (NORCO) 5-325 MG per mouth every 4 hours tablet as needed for pain hydrOXYzine (ATARAX) 25 Take 1-2 tablets by 30 tablet 0 04/201311/28/2013 MG tabletIndications: mouth every 6 hours Anxiety as needed for anxiety. IBUPROFEN PO Take 800 mg by mouth 0 every 6 hours as needed. For headaches. States he takes it with Percocet. mirtazapine (REMERON) 30 Take 1 tablet by 30 tablet 0 10/1811/28/2013 MG tabletIndications: mouth At Bedtime. Depression oxyCODONE-acetaminophen Take 1 tablet by 10 tablet 0 201211/28/2013 (PERCOCET) 5-325 MG per mouth every 6 hours tablet as needed for pain oxyCODONE-acetaminophen Take 1-2 tablets by 24 tablet [...] needed (anxiety). documented as of this encounter ED Notes Florinda Riley PA-C - 10/27/2013 12:20 PM CST Images from the original note were not included. History Chief Complaint Patient presents with ??? Dental Pain Patient is a 37 year old male presenting with tooth pain. The history is provided by the patient. Dental Pain This is a new (Tried to go to his dentist this morning, but could not afford the visit due to lack of insurance, therefore he came to the ) problem. Episode onset: one week ago. The problem occurs constantly. The problem has been gradually worsening. The pain is moderate. He has tried acetaminophen (IBU) for the symptoms. Conor Jaimes is a 37 year old male who presents with I have reviewed the Medications, Allergies, Past Medical and Surgical History, and Social History inthe [place] system. Review of Systems Constitutional: Negative. HENT: Positive for dental problem. Skin: Negative. All other systems reviewed and are negative. Physical Exam BP: 126/86 mmHg Heart Rate: 83 Temp: 97.7 ??F (36.5 ??C) Resp: 20 SpO2: 100 % Physical Exam Constitutional: He appears well-developed and well-nourished. Moderately distressed secondary to dental pain HENT: Mouth/Throat: Abnormal dentition. Dental caries present. Neurological: He is alert. Skin: Skin is warm. Psychiatric: He has a normal mood and affect. His behavior is normal. ED Course Procedures Critical Care time: none [facility] Diagnoses: None Labs Ordered and Resulted from Time of ED Arrival Up to the Time of Departure from the ED - No data to display Assessments & Plan (with Medical Decision Making) I have reviewed the nursing notes. I have reviewed the findings, diagnosis, plan and need for follow up with the patient. New Prescriptions No medications on file Final diagnoses: None 525.9 Pain, dental (primary encounter diagnosis) Comment: Dental block given. Administered bupivacaine 0.25%; 2mL into alveolar space of tooth #30, tolerated well with significant relief. Will give clindamycin due to PCN allergy and [place] #10 with norefills. He will follow up with his dentist for definitive treatment. Plan: Return to PCP, ED if new or worsening symptoms. 10/27/2013 [facility] Florinda Riley PA-C 10/27/13 1524 CE ASSISTANT Pallavi Miramontes RN - 10/27/2013 12:17 PM CST Right lower tooth pain. States has seen a dentist for it. Was told to come to Urgent Care. CE ASSISTANT documented in this encounter Plan of Treatment Not on filedocumented as of this encounter Visit Diagnoses Diagnosis Pain, dental - Primary Unspecified disorder of the teeth and hobson pporting structures documented in this encounter Care Teams Biomed Tech Relationship Specialty Start Date End Date No Ref-Primary, Physician PCP - General 02/08/12 documented as of this encounter
--- OUTSIDE RECORDS SUMMARY | 2022-08-19 07:03 | XMS_ITS | Encounter Summary ---
:1975 Author Organization [place] Address [address] [facility] [place] [address] Care Team Providers Name Role Phone No Ref-Primary, Physician Primary Care Provider [phone] Reason for Visit Reason Onset Date Comments Patient Request for Note/Letter 05/16/2013 Encounter Details Date Type Department Care Team Description 05/16/2013 [facility] Pietro Moreau MD Patient Request for Neurology Clinic [facility] Note/ Letter [facility] [place] [address] [facility] [address] [place] [address] [place] [address] [phone] (Wo rk) Social History Tobacco Use Types Packs/Day Years Used Date Smoking Tobacco: Former Smokeless Tobacco: Current Alcohol Use Standard Drinks/Week Comments Yes 0 (1 standard drink = 0.6 oz pure alcoho l) rare Sex Assigned at Date Recorded Not on file documented as of this encounter Miscellaneous Notes Telephone Encounter - Lisbet Kelley - 05/16/2013 11:14 AM CDT Advised patient that tests that were ordered by Dr Moreau were not done, no letter will be written at this time, transferred to diagnostics to schedule.Lisbet Kelley-CSS Telephone Encounter - Lisbet Kelley - 05/16/2013 11:02 AM CDT Laon called, he needs note that states that his lab and test results are ok, so that he can return to work. Note to be faxed to [phone] Attn: Thomas Collazo.Lisbet Kelley-CSS documented in this encounter Plan of Treatment Not on filedocumented as of this encounter Visit Diagnoses Not on filedocumented in this encounter Care Teams Law Office Assistant Relationship Specialty Start Date End Date No Ref-Primary, Physician PCP - General 02/08/12 12/21/13 documented as of this encounter
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
--- OUTSIDE RECORDS SUMMARY | 2022-08-19 07:03 | XMS_ITS | Encounter Summary ---
:1975 Author Organization [facility] Address [address] [place] [id number] Care Team Providers Name Role Phone No Ref-Primary, Physician Primary Care Provider [phone] Reason for Visit Reason Comments Foreign Body in Skin roof of mouth sunfish bone Encounter Details Date Type Department Care Team Description 09/05/2013 Emergency [facility] Saravanan Franco Foreign body (FB) in [place] [facility] pt [place] soft tissue (Primary [address] XXX RESIGNED XXX Dx) [place] [address] [phone] [place], [place] [address] (Wo rk) Social History Tobacco Use Types Packs/Day Years Used Date Smoking Tobacco: Former Smokeless Tobacco: Current Alcohol Use Standard Drinks/Week Comments Yes 0 (1 standard drink = 0.6 oz pure alcoho l) rare Sex Assigned at Date Recorded Not on file documented as of this encounter Last Filed Vital Signs Vital Sign Reading Time Taken Comments Blood Pressure 132/89 09/05/2013 12:52 PM DRAWER IN Pulse - - Temperature 37 ??C (98.6 ??F) 09/05/2013 12:52 PM DRAWER IN Respiratory Rate 20 09/05/2013 12:52 PM DRAWER IN Oxygen Saturation 99% 09/05/2013 12:52 PM DRAWER IN Inhaled Oxygen Concentration - - Weight - - Height - - Body Mass Index - - documented in this encounter Discharge Instructions Discharge InstructionsSaravanan Franco PA-C - 09/05/2013 1:35 PM DRAWER IN Home Back SP Foreign Object??Under The Skin: Removed An object has been removed from under your skin. Although care was taken to remove all particles present, there is always a chance that a small piece may have been left behind. Very small particles that remain under the skin usually cause no problem and need no further treatment. Home Care: ?? Keep the wound clean and dry. If a bandage was applied and it becomes wet or dirty, replace it. Otherwise, leave it in place for the first 24 hours, then change it once a day or as directed. ?? If sutures??were used, clean the wound daily: ?? After removing the bandage, wash the area with soap and water. ?? After cleaning, apply a thin layer of Polysporin or Bacitracin ointment. This will keep the woundclean and make it easier to remove the stitches. Reapply the bandage. ?? You may shower as usual after the first 24 hours, but do not soak the area in water (no baths or swimming) until the sutures are removed. ?? If a Steri-Strips tape closure was used, keep the area clean and dry. If it becomes wet, blot it dry with a towel. ?? You may use acetaminophen (Tylenol) or ibuprofen (Motrin, Advil) to control pain, unless another pain medicine was prescribed. [ NOTE : If you have chronic liver or kidney disease or ever had a stomach ulcer or GI bleeding, talk with your doctor before using these medicines.] Follow Up: Most skin wounds heal within ten days. However, there is an increased risk of infection if there is any particle remaining under the skin. Therefore, check the wound daily for the signs listed below. Stitches should be removed within 7-14 days. If a tape closure (Steri- Strips) was used, remove itafter seven days unless told otherwise. [NOTE: Any X-rays taken will be reviewed by a radiologist. You will be notified if there are new findings that may affect your care.] Get Prompt Medical Attention if any of the following occur: ?? Increasing pain in the wound ?? Redness, swelling or pus coming from the wound ?? Fever of 100.4??F (38??C) or higher, or as directed by your healthcare provider ?? [id number] [facility], [address] [place] [address], [place] [address]. All rights reserved. This information is not intended as a substitute for professional medical care. Always follow your healthcare professional's instructions. ER IN documented in this encounter Medications at Time [...] documented as of this encounter ED Notes Saravanan Franco PA-C - 09/05/2013 1:55 PM CSTAssociated Order(s): FOREIGN BODY REMOVAL Images from the original note were not included. History Chief Complaint Patient presents with ??? Foreign Body in Skin roof of mouth sunfish bone The history is provided by the patient. Conor Jaimes is a 37 year old male who presents with oral foreign body sensation. He stated he was eating fish last night and had a fishbone impaled in the the gingiva adjacent to his front upper and incisor. She was able to remove some of it however has the sensation of a retained foreign body. I have reviewed the Medications, Allergies, Past Medical and Surgical History, and Social History inthe [facility] system. Review of Systems Constitutional: Negative for fever and chills. HENT: Negative for sore throat, facial swelling, trouble swallowing and voice change. Respiratory: Negative for cough and shortness of breath. Gastrointestinal: Negative for nausea and vomiting. Skin: Negative for rash. Neurological: Negative for dizziness and light-headedness. All other systems reviewed and are negative. Physical Exam BP: 132/89 mmHg Heart Rate: 95 Temp: 98.6 ??F (37 ??C) Resp: 20 SpO2: 99 % Physical Exam Nursing note and vitals reviewed. Constitutional: He is oriented to person, place, and time. He appears well- developed and well-nourished. No distress. HENT: Head: Normocephalic and atraumatic. Mouth/Throat: Neurological: He is alert and oriented to person, place, and time. Skin: Skin is warm and dry. He is not diaphoretic. Psychiatric: He has a normal mood and affect. ED Course FB removal Date/Time: 09/05/2013 2:00 PM Performed by: SARAVANAN FRANCO Authorized by: SARAVANAN FRANCO Consent: Verbal consent obtained. Risks and benefits: risks, benefits and alternatives were discussed Consent given by: patient Patient understanding: patient states understanding of the procedure being performed Patient consent: the patient's understanding of the procedure matches consent given Procedure consent: procedure consent matches procedure scheduled Patient identity confirmed: verbally with patient Time out: Immediately prior to procedure a time out was called to verify the correct patient, procedure, equipment, manager support services and site/side marked as required. Body area: throat Anesthesia: local infiltration Local anesthetic: lidocaine spray and bupivacaine 0.5% without epinephrine Anesthetic total: 1 ml Patient sedated: no Patient restrained: no Patient cooperative: yes Localization method: probed Removal mechanism: forceps Complexity: simple 1 objects recovered. Objects recovered: fishbone Post-procedure assessment: foreign body removed Patient tolerance: Patient tolerated the procedure well with no immediate complications. Critical Care time: none [facility] Diagnoses: None No results found for this or any previous visit (from the past 24 hour(s)). ED MEDS: ??? [id number] Completed 1 spray Topical Once Assessments & Plan (with Medical Decision Making) 37-year-old male with a fish bone foreign body to the oropharynx. Cetacaine spray was applied without adequate anesthesia and therefore was reinforced with 0.5% bupivacaine with good anesthesia. The area was probed with a jewelers forcep any foreign body was ultimately retained and removed. No complications no ultimately discharged with Percocet for the next few days to the localized trauma. He was advised to watch out for any signs of infection and followup with his primary care provider. I have reviewed the nursing notes. I have reviewed the findings, diagnosis, plan and need for follow up with the patient. New Prescriptions OXYCODONE-ACETAMINOPHEN (PERCOCET) 5-325 MG PER TABLET Take 1 tablet by mouth every 6 hours as needed for pain Final diagnoses: Foreign body (FB) in soft tissue 09/05/2013 [facility] Saravanan Franco PA-C 09/05/13 1405 ER IN Pallavi Miramontes RN - 09/05/2013 1:14 PM CST Eating fish last night and c/o having fish bone to top of his pallate by front upper teeth. Small sore noticed. States feels still in there ER IN documented in this encounter Plan of Treatment Not on filedocumented as of this encounter Procedures Procedure Name Priority Date/Time Associated Diagnosis Comme nts FOREIGN BODY Routine 09/05/2013 2:05 PM Foreign body (FB) in R esults for this REMOVAL DRAWER IN soft tissue procedure are i n the results section. documented in this encounter Results Foreign body removal (09/05/2013 2:05 PM DRAWER IN) Narrative Saravanan Franco PA-C - 3 2:05 PM DRAWER IN Saravanan Franco PA-C ? 09/05/2013 ??2:05 PM History Chief Complaint Patient presents with ? ? Foreign Body in Skin ??roof of mouth sunfish bone The history is provided by the patient. Conor Jaimes is a 37 year old mal e who presents with oral foreign body sensation. He stated he was eating fish last night and had a fishbone impaled in the the gi ngiva adjacent to his front upper and incisor. ??She was able to remove some of it however has the sensation of a retained foreign body. I have reviewed the Medications, Allergi es, Past Medical and Surgical History, and Social History in the [employer] system. Review of Systems Constitutional: Negative for fever and c hills. HENT: Negative for sore throat, facial s welling, trouble swallowing and voice change. ?? Respiratory: Negative for cough and shor tness of breath. ?? Gastrointestinal: Negative for nausea an d vomiting. Skin: Negative for rash. Neurological: Negative for dizziness and light-headedness. All other systems reviewed and are negat silvia. Physical Exam BP: 132/89 mmHg Heart Rate: 95 Temp: 98.6 ??F (37 ??C) Resp: 20 SpO2: 99 % Physical Exam Nursing note and vitals reviewed. Constitutional: He is oriented to person , place, and time. He appears well-developed and well-nourishe d. No distress. HENT: Head: Normocephalic and atraumatic. Mouth/Throat: Neurological: He is alert and oriented t o person, place, and time. Skin: Skin is warm and dry. He is not di aphoretic. Psychiatric: He has a normal mood and af fect. ED Course FB removal Date/Time: 09/05/2013 2:00 PM Performed by: SARAVANAN FRANCO Authorized by: SARAVANAN FRANCO Consent: Verbal consent obtained. Risks and benefits: risks, benefits and alternatives were discussed Consent given by: patient Patient understanding: patient states un derstanding of the procedure being performed Patient consent: the patient's understan ding of the procedure matches consent given Procedure consent: procedure consent mat ches procedure scheduled Patient identity confirmed: verbally wit h patient Time out: Immediately prior to procedure a time out was called to verify the correct patient, procedure , equipment, manager support services and site/side marked as required. Body area: throat Anesthesia: local infiltration Local anesthetic: lidocaine spray and bu pivacaine 0.5% without epinephrine Anesthetic total: 1 ml Patient sedated: no Patient restrained: no Patient cooperative: yes Localization method: probed Removal mechanism: forceps Complexity: simple 1 objects recovered. Objects recovered: fishbone Post-procedure assessment: foreign body removed Patient tolerance: Patient tolerated the procedure well with no immediate complications. Critical Care time: ??none [facility] Diagnoses: ??None No results found for this or any previou s visit (from the past 24 hour(s)). ED MEDS: ? ? [id number] Completed ??1 spray Topical Once Assessments & Plan (with Medical Decisio n Making) 37-year-old male with a fish bone foreig n body to the oropharynx. Cetacaine spray was applied without adeq uate anesthesia and therefore was reinforced with 0.5% bupiv acaine with good anesthesia. ??The area was probed with a jewelers forcep any foreign body was ultimately retained and removed. ??No complications no ultimately discharged w ith Percocet for the next few days to the localized trauma. ??He w as advised to watch out for any signs of infection and followup with his primary care provider. I have reviewed the nursing notes. I have reviewed the findings, diagnosis, plan and need for follow up with the patient. New Prescriptions OXYCODONE-ACETAMINOPHEN (PERCOCET) 5-32 5 MG PER TABLET ?Take 1 tablet by mouth every 6 hours as needed for pain Final diagnoses: Foreign body (FB) in soft tissue 09/05/2013 [facility] Procedure Note Saravanan Franco PA-C - 3 1:55 PM CST Images from the original note were not i ncluded. History Chief Complaint Patient presents with ? ? Foreign Body in Skin roof of mouth sunfish bone The history is provided by the patient. Conor Jaimes is a 37 year old mal e who presents with oral foreign body sensation. He stated he was eating fish last night and had a fishbone impaled in the the gingiva adjacent to his front upper and incisor. She was able to remove some of it however angel s the sensation of a retained foreign body. I have reviewed the Medications, Allergi es, Past Medical and Surgical History, and Social History in the [facility] system. Review of Systems Constitutional: Negative for fever and c hills. HENT: Negative for sore throat, facial s welling, trouble swallowing and voice change. Respiratory: Negative for cough and shor tness of breath. Gastrointestinal: Negative for nausea an d vomiting. Skin: Negative for rash. Neurological: Negative for dizziness and light-headedness. All other systems reviewed and are negat silvia. Physical Exam BP: 132/89 mmHg Heart Rate: 95 Temp: 98.6 ??F (37 ??C) Resp: 20 SpO2: 99 % Physical Exam Nursing note and vitals reviewed. Constitutional: He is oriented to person , place, and time. He appears well- developed and well-nourished. No distress. HENT: Head: Normocephalic and atraumatic. Mouth/Throat: Neurological: He is alert and oriented t o person, place, and time. Skin: Skin is warm and dry. He is not di aphoretic. Psychiatric: He has a normal mood and af fect. ED Course FB removal Date/Time: 09/05/2013 2:00 PM Performed by: SARAVANAN FRANCO Authorized by: SARAVANAN FRANCO Consent: Verbal consent obtained. Risks and benefits: risks, benefits and alternatives were discussed Consent given by: patient Patient understanding: patient states un derstanding of the procedure being performed Patient consent: the patient's understan ding of the procedure matches consent given Procedure consent: procedure consent mat ches procedure scheduled Patient identity confirmed: verbally wit h patient Time out: Immediately prior to procedure a time out was called to verify the correct patient, procedure, equipment, manager support services and site/side marked as required. Body area: throat Anesthesia: local infiltration Local anesthetic: lidocaine spray and bu pivacaine 0.5% without epinephrine Anesthetic total: 1 ml Patient sedated: no Patient restrained: no Patient cooperative: yes Localization method: probed Removal mechanism: forceps Complexity: simple 1 objects recovered. Objects recovered: fishbone Post-procedure assessment: foreign body removed Patient tolerance: Patient tolerated the procedure well with no immediate complications. Critical Care time: none [facility] Diagnoses: None No results found for this or any previou s visit (from the past 24 hour(s)). ED MEDS: ? ? [id number] Completed 1 spray Topical Once Assessments & Plan (with Medical Liam guevara Making) 37-year-old male with a fish bone foreig n body to the oropharynx. Cetacaine spray was applied without adequate anesthesia and therefore was reinforced with 0.5% bupivacaine with good anesthesia. The area was probed with a jewelers forcep any foreig n body was ultimately retained and removed. No complications no ultimately discharged with Percocet for the next few days to the localized trauma. He was advised to watch out for any signs of infection and followup with his primary care provider. I have reviewed the nursing notes. I have reviewed the findings, diagnosis, plan and need for follow up with the patient. New Prescriptions OXYCODONE-ACETAMINOPHEN (PERCOCET) 5-32 5 MG PER TABLET Take 1 tablet by mouth every 6 hours as needed for pain Final diagnoses: Foreign body (FB) in soft tissue 09/05/2013 [facility] Saravanan Franco PA-C 09/05/13 1405 Saravanan Franco PA-C PROCEDURE/MINOR SURGICAL OR DERABLES documented in this encounter Visit Diagnoses Diagnosis Foreign body (FB) in soft tissue - Prima ry Residual foreign body in soft tissue documented in this encounter Administered Medications Inactive Administered Medications - up to 3 most recent administrations Medication Order MAR Action Action Date Dose Rate Site wxwhqbib-tilpocwdla-jwuajgnumu (CETACAIN E) 2-2-14 % spray Starting on Thu09/05/13 at 1318, For 1 dose, MALGORZATA REED: cabinet override [id number]-bldzlwowzo-keqnfrhyum Given by Other 09/05/2013 1:40 PM 1 sp ray (CETACAINE) spray 1 spray DRAWER IN 1 spray, Topical, ONCE, On Thu09/05/13 at 1338, For 1 dose, Apply to roof of mouth documented in this encounter Active and Recently Administered Medications Times are shown in DRAWER IN. Scheduled Medication Order 09/03/2013 09/04/2013 09/05/2013 aubrzkyl-oxmbukccia-dpvwqnjyum (CETACAINE) spray 1 spray (COMPLE JOSE) 1340 (Given by Other - Provider: Pallavi Miramontes RN) 1 spray, Topical, ONCE, On Thu09/05/13 at 1338, For 1 dose, Apply to roof of mouth documented in this encounter Care Teams Book Canvasser Relationship Specialty Start Date End Date No Ref-Primary, Physician PCP - General 02/08/12 12/21/13 documented as of this encounter
--- OUTSIDE RECORDS SUMMARY | 2022-08-19 07:03 | XMS_ITS | Encounter Summary ---
:1975 Author Organization [place] Address [address] [place] [address] Care Team Providers Name Role Phone No Ref-Primary, Physician Primary Care Provider [phone] Reason for Visit Reason Comments Dizziness off balance, blurred vision, angel's symptoms for 3 wks. today symptoms are worse Encounter Details Date Type Department Care Team Description 05/10/2013 [facility] Jg Lopez che (Primary Dx); [facility] pt MD Rigoberto Dizziness; [address] [facility] [address] [place] [place] [address] [place], [place] [phone] [id number] Social History Tobacco Use Types Packs/Day Years Used Date Smoking Tobacco: Former Smokeless Tobacco: Current Alcohol Use Standard Drinks/Week Comments Yes 0 (1 standard drink = 0.6 oz pure alcoho l) rare Sex Assigned at Date Recorded Not on file documented as of this encounter Last Filed Vital Signs Vital Sign Reading Time Taken Comments Blood Pressure 135/81 05/10/2013 7:15 PM CDT Pulse - - Temperature 36.7 ??C (98.1 ??F) 05/10/2013 2:16 PM CDT Respiratory Rate - - Oxygen Saturation 100% 05/10/2013 7:15 PM CDT Inhaled Oxygen Concentration - - Weight - - Height - - Body Mass Index - - documented in this encounter Discharge Instructions Discharge InstructionsJg Lopez MD - 05/10/2013 10:05 PM CDT Take medrol dose pack as prescribed Percocet for pain Call Dr. Moreau's office (Neurology) in the morning to schedule a follow up appointment. documented in this encounter Medications at Time [...] documented as of this encounter ED Notes Nicole Jolly - 05/10/2013 6:41 PM CDT Walked CSF to lab. Jg Lopez MD - 05/10/2013 3:03 PM CDT History Chief Complaint Patient presents with ??? Dizziness off balance, blurred vision, angel's symptoms for 3 wks. today symptoms are worse HPI Conor Jaimes is a 37 year old healthy male who for the last three weeks has complanied of a bi-temporal squeezing and pounding headache with associated blurred vision but not diplopia, and a sense of being off balance or dizzy, typically exacerbate by movement. Occasional nausea when dizziness is severe. Patient denies any facial numbness, speech diff, weakness in the arms and legs or any problems with coordination. Preceding his headache and dizziness, the patient denies any acute febrile illness, trauma, or ingestion of any medications or drugs. The patient does not use drugs or alcohol, there is no chronic medical problems. This headache and off balance sensation is not associated with any fevers, chills, night sweats, joint swelling, skin rashes productive cough, vomiting or diarrhea. Headache is moderate in intensity, not responding to ibuprofen at home,. Patient did have a remote history of head trauma, without sequelae and a history of carbon monoxide poisoning in the past withoutsequelae. Past Medical History; Past Medical History Diagnosis Date ??? Migraines ??? History of suicidal tendencies attempted to hang himself as a teenager Problem List: Patient Active Problem List Diagnosis ??? Depression, major Past Surgical History; Past Surgical History Procedure Date ??? Orthopedic surgery Medications; Current Facility-Administered Medications Medication ??? ondansetron (ZOFRAN) injection 4 mg ??? HYDROmorphone (PF) (DILAUDID) injection 0.5 mg ??? HYDROmorphone (PF) (DILAUDID) injection 1 mg ??? HYDROmorphone (PF) (DILAUDID) injection 1 mg ??? diphenhydrAMINE (BENADRYL) injection 50 mg ??? HYDROmorphone (PF) (DILAUDID) injection 1 mg ??? dexamethasone (DECADRON) injection 10 mg ??? DISCONTD: HYDROmorphone (PF) (DILAUDID) injection 1 mg Current Outpatient Prescriptions Medication Sig ??? methylprednisoLONE (MEDROL DOSEPAK) 4 MG tablet Follow package instructions ??? oxyCODONE-acetaminophen (PERCOCET) 5-325 MG per tablet Take 1-2 tablets by mouth every 6 hours as needed for pain. ??? mirtazapine (REMERON) 30 MG tablet Take 1 tablet by mouth At Bedtime. ??? QUEtiapine (SEROQUEL XR) 300 MG 24 hr tablet Take 1 tablet by mouth daily. ??? QUEtiapine (SEROQUEL) 25 MG tablet Take 1-2 tablets by mouth every 4 hours as needed (anxiety). ??? IBUPROFEN PO Take 800 mg by mouth every 6 hours as needed. For headaches. States he takes it with Percocet. ??? hydrOXYzine (ATARAX) 25 MG tablet Take 1-2 tablets by mouth every 6 hours as needed for anxiety. Facility-Administered Medications Ordered in Other Encounters Medication ??? DISCONTD: lidocaine 1 % injection Allergies; Allergies Allergen Reactions ??? Latex ??? Latex ??? Penicillin G ??? Penicillins ??? Toradol ??? Tape (Adhesive Tape) Rash And skin breaks out. Family/Social History; History Social History ??? Marital Status: Single Spouse Name: N/A Number of Children: N/A ??? Years of Education: N/A Occupational History ??? Not on file. Social History Main Topics ??? Smoking status: Former Smoker ??? Smokeless tobacco: Current User ??? Alcohol Use: Yes rare ??? Drug Use: No ??? Sexually Active: Other Topics Concern ??? Not on file Social History Narrative Merged History Encounter I have reviewed the Medications, Allergies, Past Medical and Surgical History, and Social History inthe itsDapper system. Review of Systems Respiratory: Negative. Cardiovascular: Negative. Genitourinary: Negative. Musculoskeletal: Negative. Neurological: Positive for dizziness and headaches. Psychiatric/Behavioral: Negative. All other systems reviewed and are negative. Physical Exam BP: 141/79 mmHg Heart Rate: 93 Temp: 98.1 ??F (36.7 ??C) SpO2: 99 % Physical Exam Constitutional: No distress. HENT: Head: Atraumatic. Mouth/Throat: Oropharynx is clear and moist. No oropharyngeal exudate. Eyes: Conjunctivae normal are normal. Pupils are equal, round, and reactive to light. No scleral icterus. Pupils are symmetric, no evidence of nystagmus. Eye range of motion does exacerbate dizziness. No papilledema Cardiovascular: Normal heart sounds and intact distal pulses. Pulmonary/Chest: Breath sounds normal. No respiratory distress. Abdominal: Soft. Bowel sounds are normal. There is no tenderness. Musculoskeletal: He exhibits no edema and no tenderness. Neurological: No cranial nerve deficit. He displays a negative Romberg sign. Patient has symmetric bulk, tone and strengh in the upper and lower extremities, intact [id number]-ajxb-[id number] without past pointing or intention tremor. Skin: Skin is warm. No rash noted. He is not diaphoretic. ED Course Procedures EKG None. Labs/Imaging Results for orders placed during the hospital encounter of 05/10/13 CBC WITH PLATELETS DIFFERENTIAL Component Value Range WBC 7.2 4.0 - 11.0 10e9/L RBC Count 5.31 4.4 - 5.9 10e12/L Hemoglobin 16.4 13.3 - 17.7 g/dL Hematocrit 48.4 40.0 - 53.0 % MCV 91 78 - 100 fl MCH 30.9 26.5 - 33.0 pg MCHC 33.9 31.5 - 36.5 g/dL RDW 12.3 10.0 - 15.0 % Platelet Count 258 150 - 450 10e9/L Diff Method Automated Method % Neutrophils 70.8 % Lymphocytes 19.1 % Monocytes 9.1 % Eosinophils 0.6 % Basophils 0.3 % Immature Granulocytes 0.1 Absolute Neutrophil 5.1 1.6 - 8.3 10e9/L Absolute Lymphocytes 1.4 0.8 - 5.3 10e9/L Absolute Monoctyes 0.7 0.0 - 1.3 10e9/L Absolute Eosinophils 0.0 0.0 - 0.7 10e9/L Absolute Basophils 0.0 0.0 - 0.2 10e9/L Abs Immature Granulocytes 0.0 0 - 0.4 10e9/L COMPREHENSIVE METABOLIC PANEL Component Value Range Sodium 140 133 - 144 mmol/L Potassium 4.2 3.4 - 5.3 mmol/L Chloride 102 94 - 109 mmol/L Carbon Dioxide 28 20 - 32 mmol/L Anion Gap 10 6 - 17 mmol/L Glucose 89 60 - 99 mg/dL Urea Nitrogen 20 5 - 24 mg/dL Creatinine 1.03 0.66 - 1.25 mg/dL GFR Estimate 80 >60 mL/min/1.7m2 GFR Estimate If Black >90 >60 mL/min/1.7m2 Calcium 9.1 8.5 - 10.4 mg/dL Bilirubin Total 0.3 0.2 - 1.3 mg/dL Albumin 4.7 3.9 - 5.1 g/dL Protein Total 8.0 6.8 - 8.8 g/dL Alkaline Phosphatase 77 40 - 150 U/L ALT 25 0 - 70 U/L AST 33 0 - 45 U/L CT HEAD W/O CONTRAST Narrative: CT HEAD WITHOUT CONTRAST 05/10/2013 5:04 PM HISTORY: Pain and dizziness for three weeks. COMPARISON: 03/15/2012. FINDINGS: There is no intracranial hemorrhage, mass, or recent infarct. The calvarium is intact. The sinuses are clear. No discernible change since 03/15/2012. Impression: IMPRESSION: Normal head CT. BRIAN OCAMPO MD CELL COUNT WITH DIFFERENTIAL CSF Component Value Range WBC CSF Duplicate request 0 - 5 /uL RBC CSF Duplicate request 0 - 2 /uL GLUCOSE CSF Component Value Range Glucose CSF 57 40 - 70 mg/dL PROTEIN TOTAL CSF Component Value Range Protein Total CSF 28 15 - 60 mg/dL GRAM STAIN Component Value Range Specimen Description Cerebrospinal fluid Gram Stain No organisms seen Micro Report Status FINAL 05/10/2013 CELL COUNT WITH DIFFERENTIAL CSF Component Value Range WBC CSF 2 0 - 5 /uL RBC CSF 3 (*) 0 - 2 /uL Tube Number 4 Color CSF Colorless CLRL Appearance CSF Clear CLER MRA HEAD W/O CONTRAST ANGIOGRAM Narrative: MRA HEAD W/O CONTRAST 05/10/2013 9:37 PM HISTORY: Headache and dizziness. COMPARISON: None. TECHNIQUE: Routine [place] MRA. FINDINGS: The [place] MRA is normal. Large caliber vessels are patent. There is no evidence for aneurysm. Impression: IMPRESSION: Normal [place] MRA. BRIAN OCAMPO MD ED Medications ??? ondansetron 4 mg Intravenous Once ??? HYDROmorphone 0.5 mg Intravenous Once ??? HYDROmorphone 1 mg Intravenous Once ??? HYDROmorphone 1 mg Intravenous Once ??? diphenhydrAMINE 50 mg Intravenous Once ??? HYDROmorphone 1 mg Intravenous Once ??? dexamethasone 10 mg Intravenous Once ??? DISCONTD: HYDROmorphone 1 mg Intravenous Once <!--RTF_E--> ??? DISCONTD: lidocaine PRN Patient was given dilaudid for his headache, zofran for the associated mild nausea and head CT was performed. CT was unremarkable, but testing is unremarkable, if headache persists as does the patient's sense of dizziness. I will request a lumbar puncture be performed to evaluate for possible encephalitis as the etiology for this patient's ongoing symptoms. 6:59 PM LP performed by anesthesia, with a normal opening pressure, and grossly clear fluid. Awaiting microscopic evaluation. Fluid analysis is normal. 7:[address] Moreau. Assessments & Plan (with Medical Decision Making) etiology for the patient's headache and balance and visual disturbance is unclear. He has a normal CT, labs, spinal fluid analysis, on a limited, anormal MRI. Patiently discharged on Medrol Dosepak, analgesics, and neurology followup. I have reviewed the nursing notes. I have reviewed the findings, diagnosis, plan and need for follow up with the patient. New Prescriptions METHYLPREDNISOLONE (MEDROL DOSEPAK) 4 MG TABLET Follow package instructions OXYCODONE-ACETAMINOPHEN (PERCOCET) 5-325 MG PER TABLET Take 1-2 tablets by mouth every 6 hours as needed for pain. Final diagnoses: Headache Dizziness Visual disturbance 05/10/2013 [facility] EMERGENCY DEPARTMENT This document serves as a record of services personally performed by gJ Lopez MD on 05/10/2013. It was created on their behalf by Lenore Silva, a trained medical imaging technician. The creation of this record is based on the scribe's personal observations and the provider's statements to them. This document has been checked and approved by the attending provider. Jg Lopez MD 05/10/13 [id number] documented in this encounter Miscellaneous Notes Initial Assessments - Jose Provider - 05/12/2013 12:00 PM CDT documented in this encounter Plan of Treatment Not on filedocumented as of this encounter Procedures Procedure Name Priority Date/Time Associated Comments Diagnosis MRA BRAIN ([place] OF STAT 05/10/2013 9:37 PM R esults for this [place]) W/O CONTRAST CDT procedu re are in the results section. MRA NECK (CAROTIDS) STAT 05/10/2013 9:36 PM Re sults for this W/O & W CONTRAST CDT procedure a re in the results section. MR BRAIN W/O & W STAT 05/10/2013 9:35 PM Resul ts for this CONTRAST CDT procedure are i n the results section. PROTEIN TOTAL CSF STAT 05/10/2013 6:25 PM Resu lts for this CDT procedure are i n the results section. GRAM STAIN STAT 05/10/2013 6:25 PM Results f or this CDT procedure are i n the results section. GLUCOSE CSF STAT 05/10/2013 6:25 PM Results f or this CDT procedure are i n the results section. CSF CULTURE AEROBIC STAT 05/10/2013 6:25 PM Re sults for this BACTERIAL CDT procedure are i n the results section. CELL COUNT WITH STAT 05/10/2013 6:25 PM Result s for this DIFFERENTIAL CSF CDT procedure a re in the results section. CELL COUNT WITH STAT 05/10/2013 6:25 PM Result s for this DIFFERENTIAL CSF CDT procedure a re in the results section. CT HEAD W/O CONTRAST STAT 05/10/2013 5:04 PM R esults for this CDT procedure are i n the results section. CBC WITH PLATELETS & STAT 05/10/2013 3:30 PM R esults for this DIFFERENTIAL CDT procedure are i n the results section. COMPREHENSIVE STAT 05/10/2013 3:30 PM Results for this METABOLIC PANEL CDT procedure ar e in the results section. documented in this encounter Results Head MRA w/o contrast - STROKE PROTOCOL (05/10/2013 9:37 PM CDT) Anatomical Region Laterality Modality Head, SUBRAD MR NEURO, P MR NEURO Othe r Specimen (Source) Anatomical Collection Method Collection Time Re ceived Time Location / / Volume Laterality 05/10/2013 9:37 PM CDT Impressions 05/10/2013 9:50 PM CDT IMPRESSION: Normal [place] MRA. BRIAN OCAMPO MD Narrative 05/10/2013 9:50 PM CDT MRA HEAD W/O CONTRAST 05/10/2013 9:37 PM HISTORY: ??Headache and dizziness. COMPARISON: None. TECHNIQUE: Routine [place] MRA. FINDINGS: The [place] MRA is no rmal. Large caliber vessels are patent. There is no evidence for ane urysm. Procedure Note Brian Ocampo MD - 05/10/2013Forma tting of this note might be different from the original. MRA HEAD W/O CONTRAST 05/10/2013 9:37 PM HISTORY: Headache and dizziness. COMPARISON: None. TECHNIQUE: Routine [place] MRA. FINDINGS: The [place] MRA is no rmal. Large caliber vessels are patent. There is no evidence for ane urysm. IMPRESSION IMPRESSION: Normal [place] MRA. BRIAN OCAMPO MD Jg Lopez MD IM MRI ORDERABLES Neck MRA w & w/o contrast - STROKE PROTOCOL (05/10/2013 9:36 PM CDT) Anatomical Region Laterality Modality Neck, SUBRAD MR NEURO, P MR NEURO Othe r Specimen (Source) Anatomical Collection Method Collection Time Re ceived Time Location / / Volume Laterality 05/10/2013 9:36 PM CDT Narrative 05/11/2013 10:24 AM CDT This is a non-reportable study. MANAN TILLMAN MD Procedure Note Manan Tillman MD - 05/11/2013Forma tting of this note might be different from the original. This is a non-reportable study. MANAN TILLMAN MD Jg Lopez MD [facility] MRI ORDERABLES MR Brain w/o & w Contrast (05/10/2013 9:35 PM CDT) Anatomical Region Laterality Modality Head, SUBRAD MR NEURO, [facility] MR NEURO Othe r Specimen (Source) Anatomical Collection Method Collection Time Re ceived Time Location / / Volume Laterality 05/10/2013 9:35 PM CDT Impressions 05/11/2013 10:24 AM CDT IMPRESSION: Normal brain MRI. MANAN TILLMAN MD Narrative 05/11/2013 10:24 AM CDT MRI OF THE BRAIN WITHOUT CONTRAST April 132012 9:35 PM HISTORY: Headache. Dizziness. TECHNIQUE: Sagittal T1-weighted, axial T 2-weighted, axial FLAIR, and axial diffusion-weighted MR images of th e brain were acquired without intravenous contrast. COMPARISON: Head CT 05/10/2013. FINDINGS: The ventricles and basal ciste rns are within normal limits in configuration. There is no midline sh ift. There are no extra-axial fluid collections. There is no evidence for acute stroke or for acute intracranial hemorrhage. Cr-white diff erentiation is well maintained. There is no sinusitis or mastoiditis. Procedure Note Manan Tillman MD - 05/11/2013Forma tting of this note might be different from the original. MRI OF THE BRAIN WITHOUT CONTRAST April 132012 9:35 PM HISTORY: Headache. Dizziness. TECHNIQUE: Sagittal T1-weighted, axial T 2-weighted, axial FLAIR, and axial diffusion-weighted MR images of th e brain were acquired without intravenous contrast. COMPARISON: Head CT 05/10/2013. FINDINGS: The ventricles and basal ciste rns are within normal limits in configuration. There is no midline sh ift. There are no extra-axial fluid collections. There is no evidence for acute stroke or for acute intracranial hemorrhage. Cr-white diff erentiation is well maintained. There is no sinusitis or mastoiditis. IMPRESSION IMPRESSION: Normal brain MRI. MANAN TILLMAN MD Jg Lopez MD IMG MRI ORDERABLES (ABNORMAL) Cell count with differential CSF (05/10/2013 6:25 PM CDT) [email or web address] Method Time Signature WBC CSF 2 0 - 5 /uL [facility] RBC CSF 3 (H) 0 - 2 /uL [facility] Tube Number 4 # [facility] Color CSF Colorless CLRL [facility] Appearance CSF Clear CLER [facility] Specimen (Source) Anatomical Location Collection Collection Time Received Time / Laterality Method / Volume Cerebrospinal fluid CEREBROSPINAL FLUID 05/10/2013 6:2 5 05/10/2013 specimen (specimen) SPECIMEN / Unknown PM CDT 6: 34 PM CDT gJ Lopez MD LAB - CSF ORDERABLES Performing Organization Address City/State/ZIP Code Phon e Number [facility] [address] [place], [place] [address] [facility] CSF culture, aerobic (05/10/2013 6:25 PM CDT) Component Value Ref Test Analysis Performed At [email or web address] Range Method Time Signature Specimen Cerebrospinal [place] Description fluid [facility] Culture Micro No growth after [place] 5 days [facility] Micro Report FINAL 05/16/2013 [facility] Specimen (Source) Anatomical Collection Method Collection Time Re ceived Time Location / / Volume Laterality Cerebrospinal fluid 05/10/2013 6:25 05/10 specimen (specimen) PM CDT 6:34 PM CDT Jg Lopez MD LAB - MICRO GENERAL KIMMIE GUTIERREZ Performing Organization Address City/[facility]/ZIP Code Phon e Number [facility] [address] [place], [place] [address] [facility] Gram stain (05/10/2013 6:25 PM CDT) Component Value Ref Test Analysis Performed At [facility] gist Range Method Time Signature Specimen Cerebrospinal [facility] Gram Stain No organisms [facility] Micro Report FINAL 05/10/2013 [facility] Specimen (Source) Anatomical Collection Method Collection Time Re ceived Time Location / / Volume Laterality Cerebrospinal fluid 05/10/2013 6:25 05/10 specimen (specimen) PM CDT 6:34 PM CDT Jg Lopez MD LAB - MICRO GENERAL KIMMIE GUTIERREZ Performing Organization Address City/[facility]/ZIP Code Phon e Number [facility] [address] [place], [place] [address] [facility] Protein total CSF (05/10/2013 6:25 PM CDT) P athologist Signature Protein Total 28 15 - 60 [facility] CSF mg/dL [facility] Specimen (Source) Anatomical Location Collection Collection Time Received Time / Laterality Method / Volume Cerebrospinal fluid CEREBROSPINAL FLUID 05/10/2013 6:2 5 05/10/2013 specimen (specimen) SPECIMEN / Unknown PM CDT 6: 33 PM CDT Jg Lopez MD LAB - CSF ORDERABLES Performing Organization Address City/[facility] Code Phon e Number [facility] [address] [place], [place] [address] [facility] Glucose CSF (05/10/2013 6:25 PM CDT) P athologist Signature Glucose CSF 57 40 - 70 [facility] mg/dL [facility] Comment: CSF glucose concentrations are about 60 percent of normal plasma glucose. Specimen (Source) Anatomical Location Collection Collection Time Received Time / Laterality Method / Volume Cerebrospinal fluid CEREBROSPINAL FLUID 05/10/2013 6:2 5 05/10/2013 specimen (specimen) SPECIMEN / Unknown PM CDT 6: 33 PM CDT Jg Lopez MD LAB - CSF ORDERABLES Performing Organization Address City/[facility]/ZIP Code Phon e Number [facility] [address] [place], [place] [address] [facility] Cell count with differential CSF (05/10/2013 6:25 PM CDT) Analysis Performed At Patho logist Time Signature WBC CSF Duplicate 0 - 5 /uL [facility] RBC CSF Duplicate 0 - 2 /uL [facility] Specimen (Source) Anatomical Location Collection Collection Time Received Time / Laterality Method / Volume Cerebrospinal fluid CEREBROSPINAL FLUID 05/10/2013 6:2 5 05/10/2013 specimen (specimen) SPECIMEN / Unknown PM CDT 6: 33 PM CDT Jg Lopez MD LAB - CSF ORDERABLES Performing Organization Address City/[facility]/ZIP Code Phon e Number [facility] [address] [place], [place] [address] [facility] CT Head w/o Contrast (05/10/2013 5:04 PM CDT) Anatomical Region Laterality Modality Head, SUBRAD CT NEURO, SUBRAD CT NEURO, UMP CT NEURO Computed Tomography Specimen (Source) Anatomical Collection Method Collection Time Re ceived Time Location / / Volume Laterality 05/10/2013 5:04 PM CDT Impressions 05/10/2013 5:51 PM CDT IMPRESSION: Normal head CT. BRIAN OCAMPO MD Narrative 05/10/2013 5:[address] HEAD WITHOUT CONTRAST ??05/10/2013 5:0 4 PM HISTORY: ??Pain and dizziness for three weeks. COMPARISON: 03/15/2012. FINDINGS: There is no intracranial hemor rhage, mass, or recent infarct. The calvarium is intact. The si nuses are clear. No discernible change since 03/15/2012. Procedure Note Brian Ocampo MD - 05/10/2013Forma tting of this note might be different from the original. CT HEAD WITHOUT CONTRAST 05/10/2013 5:04 PM HISTORY: Pain and dizziness for three we eks. COMPARISON: 03/15/2012. FINDINGS: There is no intracranial hemor rhage, mass, or recent infarct. The calvarium is intact. The si nuses are clear. No discernible change since 03/15/2012. IMPRESSION IMPRESSION: Normal head CT. BRIAN OCAMPO MD Jg Lopez MD IMG CT ORDERABLES Comprehensive metabolic panel (05/10/2013 3:30 PM CDT) athologist Signature Sodium 140 133 - 144 [facility] mmol/L [facility] Potassium 4.2 3.4 - 5.3 [facility] mmol/L [facility] Chloride 102 94 - 109 [facility] mmol/L [facility] Carbon Dioxide 28 20 - 32 [facility] mmol/L [facility] Anion Gap 10 6 - 17 [facility] mmol/L [facility] Glucose 89 60 - 99 [facility] mg/dL [facility] Urea Nitrogen 20 5 - 24 [facility] mg/dL [facility] Creatinine 1.03 0.66 - [facility] 1.25 mg/dL [facility] GFR Estimate 80 >60 [facility] mL/min/1.7 [facility] m2 [facility] GFR Estimate If >90 >60 [facility] Black mL/min/1.7 [facility] m2 [facility] Calcium 9.1 8.5 - 10.4 [facility] mg/dL [facility] Bilirubin Total 0.3 0.2 - 1.3 [facility] mg/dL [facility] Albumin 4.7 3.9 - 5.1 [facility] g/dL [facility] Protein Total 8.0 6.8 - 8.8 [facility] g/dL [facility] Alkaline 77 40 - 150 [facility] Phosphatase U/L [facility] ALT 25 0 - 70 U/L [facility] AST 33 0 - 45 U/L [facility] Specimen Anatomical Collection Method Collection Time Receive d Time (Source) Location / / Volume Laterality Blood specimen 05/10/2013 3:30 PM 013 3:51 (specimen) CDT PM CDT Jg Lopez MD LAB - BLOOD ORDERABLES Performing Organization Address City/State/ZIP Code Phon e Number [facility] [address] [place], [place] [address] [facility] CBC with platelets differential (05/10/2013 3:30 PM CDT) [facility] gist Method Time Signature WBC 7.2 4.0 - [place] 11.0 [facility] 10e9[facility] RBC Count 5.31 4.4 - 5.9 [place] 10e12/L [facility] Hemoglobin 16.4 13.3 - [place] 17.7 g/dL [facility] Hematocrit 48.4 40.0 - [place] 53.0 % [facility] MCV 91 78 - 100 [place] fl [facility] MCH 30.9 26.5 - [place] 33.0 pg [facility] MCHC 33.9 31.5 - [place] 36.5 g/dL [facility] RDW 12.3 10.0 - [place] 15.0 % [facility] Platelet Count 258 150 - 450 [place] 10e9/[facility] Diff Method Automated [facility] % Neutrophils 70.8 % [facility] % Lymphocytes 19.1 % [facility] % Monocytes 9.1 % [facility] % Eosinophils 0.6 % [facility] % Basophils 0.3 % [facility] % Immature 0.1 % [place] Granulocytes [facility] Absolute 5.1 1.6 - 8.3 [place] Neutrophil 10e9/L [facility] Absolute 1.4 0.8 - 5.3 [place] Lymphocytes 10e9/L [facility] Absolute 0.7 0.0 - 1.3 [place] Monocytes 10e9/L [facility] Absolute 0.0 0.0 - 0.7 [place] Eosinophils 10e9/L [facility] Absolute 0.0 0.0 - 0.2 [place] Basophils 10e9/L [facility] Abs Immature 0.0 0 - 0.4 [place] Granulocytes 10e9/L [facility] Specimen Anatomical Collection Method Collection Time Receive d Time (Source) Location / / Volume Laterality Blood specimen 05/10/2013 3:30 PM 013 3:51 (specimen) CDT PM CDT Jg Lopez MD LAB - BLOOD ORDERABLES Performing Organization Address City/State/ZIP Code Phon e Number [facility] [address] [place], [place] [address] [facility] documented in this encounter Visit Diagnoses Diagnosis Headache(784.0) - Primary Headache Dizziness Dizziness and giddiness Visual disturbance Unspecified visual disturbance documented in this encounter Administered Medications Inactive Administered Medications - up to 3 most recent administrations Medication Order MAR Action Action Date Dose Rate Site HYDROmorphone (PF) (DILAUDID) 1 MG/ML in jection Starting on Thu05/10/13 at 1733, For 1 dose, DO UGO NNA: cabimmanuelt override HYDROmorphone (PF) (DILAUDID) injection 0.5 mg Given 05/10/2013 5:31 PM CDT 1 mg 0.5 mg, Intravenous, ONCE, On Thu05/10/13 at 1524, For 1 dose Given 05/10/2013 3:37 PM CDT 0.5 mg HYDROmorphone (PF) (DILAUDID) injection 1 mg Given 05/10/2013 3:56 PM CDT 1 mg 1 mg, Intravenous, ONCE, On Thu05/10/13 at 1554, For 1 dose HYDROmorphone (PF) (DILAUDID) injection 1 mg Given 05/10/2013 4:28 PM CDT 1 mg 1 mg, Intravenous, ONCE, On Thu05/10/13 at 1626, For 1 dose HYDROmorphone (PF) (DILAUDID) injection 1 mg Given 05/10/2013 7:11 PM CDT 1 mg 1 mg, Intravenous, ONCE, On Thu05/10/13 at 1909, For 1 dose ondansetron (ZOFRAN) injection 4 mg Given 05/10/2013 3:37 PM CDT 4 mg 4 mg, Intravenous, ONCE, Administer over 2-5 Minutes, On Thu05/10/13 at 1524, For 1 dose documented in this encounter Active and Recently Administered Medications Times are shown in CDT. Scheduled Medication Order 05/08/2013 05/09/2013 05/10/2013 HYDROmorphone (PF) (DILAUDID) injection 0.5 mg (COMPLETED) 1537 (Given - Provider: Ramón Archuleta RN)1731 (Given - Provider: Sharon Corona RN) 0.5 mg, Intravenous, ONCE, 1 dose, 05/10/13 at 1524 HYDROmorphone (PF) (DILAUDID) injection 1 mg (COMPLETED) 1556 (Given - Provider: Ramón Archuleta RN)1559 (Due)1632 (Due) 1 mg, Intravenous, ONCE, 1 dose, 05/10/13 at 1554 HYDROmorphone (PF) (DILAUDID) injection 1 mg (COMPLETED) 1628 (Given - Provider: Ramón Archuleta RN) 1 mg, Intravenous, ONCE, 1 dose, 05/10/13 at 1626 HYDROmorphone (PF) (DILAUDID) injection 1 mg (COMPLETED) 1911 (Given - Provider: Ramón Archuleta RN) 1 mg, Intravenous, ONCE, 1 dose, 05/10/13 at 1909 ondansetron (ZOFRAN) injection 4 mg (COMPLETED) 1537 (Given - Provider: Ramón Archuleta RN) 4 mg, Intravenous, ONCE, for 2 Minutes, 05/10/13 at 1524, For 1 dose documented in this encounter Care Teams Credit Counselor Relationship Specialty Start Date End Date No Ref-Primary, Physician PCP - General 02/08/12 12/21/13 documented as of this encounter
--- OUTSIDE RECORDS SUMMARY | 2022-08-19 07:03 | XMS_ITS | Encounter Summary ---
:1975 Author Organization [place] Address [address] [facility] [place] [address] Care Team Providers Name Role Phone No Ref-Primary, Physician Primary Care Provider [phone] Encounter Details Date Type Department Care Team Description 05/17/2013 Office Visit [facility] Pietro Moreau MD Headache (Primary Dx) Neurology Clinic [facility] [address] [place] [address] [address] [facility] [facility] [address] [facility] [address] [place] [id number] Social History Tobacco Use Types Packs/Day Years Used Date Smoking Tobacco: Former Smokeless Tobacco: Current Alcohol Use Standard Drinks/Week Comments Yes 0 (1 standard drink = 0.6 oz pure alcoho l) rare Sex Assigned at Date Recorded Not on file documented as of this encounter Progress Notes Pietro Moreau - 05/17/2013 8:19 AM CDT The patient came up to the clinic area after having the MR venogram and MRA of his neck vessels done. The MRA of his neck vessels was normal, with no evidence of dissection. The MR venogram showed no clot in the cerebral venous system.. He reports no recurrent headaches, now having completed the steroid pack given to him in the emergency room. He reports balance has been good and no vision problems. His neurologic examination had been normal when I saw him in the clinic. I did write him a letter that he can return to his regular work duties, with the caveat that if he has recurrent problems, he needs to be seen in the office. Pietro Moreau MD documented in this encounter Plan of Treatment Not on filedocumented as of this encounter Visit Diagnoses Diagnosis Headache(784.0) - Primary Headache documented in this encounter Care Teams Hot Molder Relationship Specialty Start Date End Date No Ref-Primary, Physician PCP - General 02/08/12 12/21/13 documented as of this encounter
--- OUTSIDE RECORDS SUMMARY | 2022-08-19 07:03 | XMS_ITS | Encounter Summary ---
:1975 Author Organization [place] Address [facility] [place] [address] Care Team Providers Name Role Phone No Ref-Primary, Physician Primary Care Provider [phone] Reason for Visit Reason Comments Hand Injury L hand injury thursday, had angel d surg on the hand and thinks he may have re-broken it. Encounter Details Date Type Department Care Team Description 11/28/2013 Emergency [facility] Florinda Riley Wrist julián in, left [place] [facility] ORESTES Moss (Primary Dx) [address] [facility] [place] [address] [address] [facility] [phone] [place], [place] [address] (Wo rk) Social History Tobacco Use Types Packs/Day Years Used Date Smoking Tobacco: Former Smokeless Tobacco: Current Alcohol Use Standard Drinks/Week Comments Yes 0 (1 standard drink = 0.6 oz pure alcoho l) rare Sex Assigned at Date Recorded Not on file documented as of this encounter Last Filed Vital Signs Vital Sign Reading Time Taken Comments Blood Pressure 145/92 11/28/2013 10:44 AM KENO ATTENDANT Pulse - - Temperature 36.6 ??C (97.8 ??F) 11/28/2013 10:44 AM KENO ATTENDANT Respiratory Rate 16 11/28/2013 10:44 AM KENO ATTENDANT Oxygen Saturation 97% 11/28/2013 10:44 AM KENO ATTENDANT Inhaled Oxygen Concentration - - Weight - - Height - - Body Mass Index - - documented in this encounter Medications at Time of Discharge Medication Sig Dispensed Refills Start Date End Date HYDROcodone-acetaminophen Take 1 tablet by 10 tablet 0 11/1212/22/2013 (NORCO) 5-325 MG per mouth every 4 hours tablet as needed for pain IBUPROFEN PO Take 800 mg by mouth 0 every 6 hours as needed. For headaches. States he takes it with Percocet. documented as of this encounter ED Notes Florinda Riley PA-C - 11/28/2013 11:48 AM CST Images from the original note were not included. History Chief Complaint Patient presents with ??? Hand Injury L hand injury thursday, had had surg on the hand and thinks he may have re-broken it. 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 He felt a 'pop' in left wrist and experienced immediate pain. He was not evaluated until today because he thought the pain would improve. Has increased pain with movement and weakness due to pain. Pain radiates into left forearm. Denies numbness/tingling. He's had previous surgery on his left hand. I have reviewed the Medications, Allergies, Past Medical and Surgical History, and Social History inthe [employer] system. Review of Systems Constitutional: Negative. Musculoskeletal: Left hand, wrist pain Skin: Negative. Neurological: Negative. All other systems reviewed and are negative. Physical Exam BP: 145/92 mmHg Heart Rate: 69 Temp: 97.8 ??F (36.6 ??C) Resp: 16 SpO2: 97 % Physical Exam Constitutional: He appears well-developed and well-nourished. He appears distressed. Secondary to wrist pain Musculoskeletal: Left hand: He exhibits decreased range of motion and tenderness. normal sensation noted. Decreased strength noted. Hands: Neurological: He is alert. Skin: Skin is warm. Psychiatric: He has a normal mood and affect. His behavior is normal. ED Course Procedures Critical Care time: none CMS Diagnoses: None Labs Ordered and Resulted from Time of ED Arrival Up to the Time of Departure from the ED - No data to display Assessments & Plan (with Medical Decision Making) 11:48 AM Patient requesting pain medication. Will give [place] #1 po. Awaiting radiology report of left hand. Results for orders placed during the hospital encounter of 11/28/13 XR HAND LT G/E 3 VW Narrative: HAND LEFT THREE OR MORE VIEWS 11/28/2013 11:23 AM HISTORY: Left hand pain in the navicular region. COMPARISON: None FINDINGS: Old healed fracture and/or postoperative deformities of the bases of the first and second metacarpals. Degenerative changes in the first carpal metacarpal joint. No evidence of acute fracture or dislocation. Left hand otherwise negative. The navicular appears normal, although a navicular view was not obtained. XR WRIST LT 2 VW Narrative: WRIST LEFT TWO VIEWS November 28, 2013 12:24 PM HISTORY: Pain over navicular area of left wrist. COMPARISON: None. FINDINGS: No fracture is seen on these two views. There are moderate degenerative changes at the first carpometacarpal joint. I have reviewed the nursing notes. I have reviewed the findings, diagnosis, plan and need for follow up with the patient. New Prescriptions No medications on file Final diagnoses: None 719.43 Wrist pain, left (primary encounter diagnosis) Comment: Unclear etiology, consider soft tissue injury. Will place in thumb spica splint, [place] #10 with no refills. Will follow up with Dr. Huynh tomorrow; 11/29 at 3pm. Plan: Titan Wrist/Thumb Hondo 11/28/2013 [facility] Florinda Riley PA-C 11/28/13 1327 ATTENDANT Jessie Avalos RN - 11/28/2013 10:49 AM CST Was lifting stuff on Thursday and hurt left wrist. [place]orne a pop. Good CMS and good radial pulse. Jen Birmingham RN - 11/28/2013 10:42 AM CST L hand injury thursday, had had surg on the hand and thinks he may have re-broken it. ATTENDANT documented in this encounter Plan of Treatment Not on filedocumented as of this encounter Procedures Procedure Name Priority Date/Time Associated Diagnosis Comme nts XR WRIST LEFT 2 STAT 11/28/2013 12:24 PM Resul ts for this VIEWS KENO ATTENDANT procedure are i n the results section. XR HAND LEFT G/E 3 STAT 11/28/2013 11:23 AM Re sults for this VIEWS KENO ATTENDANT procedure are i n the results section. documented in this encounter Results XR Wrist Left 2 Views (11/28/2013 12:24 PM KENO ATTENDANT) Anatomical Region Laterality Modality Left Wrist Left Computed Radiography Specimen (Source) Anatomical Location Collection Method / Collectio n Time Received Time / Laterality Volume Narrative 11/28/2013 2:36 PM KENO ATTENDANT WRIST LEFT TWO VIEWS November 28, 2013 12:24 PM HISTORY: Pain over navicular area of lef t wrist. COMPARISON: None. FINDINGS: No fracture is seen on these t wo views. There are moderate degenerative changes at the first carpom etacarpal joint. TRACY HAMPTON MD Procedure Note Tracy Hampton MD - 11/28/2013F ormatting of this note might be different from the original. WRIST LEFT TWO VIEWS November 28, 2013 1 2:24 PM HISTORY: Pain over navicular area of lef t wrist. COMPARISON: None. FINDINGS: No fracture is seen on these t wo views. There are moderate degenerative changes at the first carpom etacarpal joint. TRACY HAMPTON MD Florinda Riley PA-C [facility] ORDER TOYA Hand XR, G/E 3 views, left (11/28/2013 11:23 AM KENO ATTENDANT) Anatomical Region Laterality Modality Hand, Wrist Left Computed Radiography Specimen (Source) Anatomical Location Collection Method / Collectio n Time Received Time / Laterality Volume Narrative 11/28/2013 4:33 PM KENO ATTENDANT HAND LEFT THREE OR MORE VIEWS ??11/28/2013 11:23 AM HISTORY: Left hand pain in the navicular region. COMPARISON: None FINDINGS: Old healed fracture and/or pos toperative deformities of the bases of the first and second metacarpal s. Degenerative changes in the first carpal metacarpal joint. No eviden ce of acute fracture or dislocation. Left hand otherwise negativ e. The navicular appears normal, although a navicular view was no t obtained. CORNELIO LORENZANA MD Procedure Note Cornelio Lorenzana MD - 11/28/2013Formatti ng of this note might be different from the original. HAND LEFT THREE OR MORE VIEWS 11/28/2013 11:23 AM HISTORY: Left hand pain in the navicular region. COMPARISON: None FINDINGS: Old healed fracture and/or pos toperative deformities of the bases of the first and second metacarpal s. Degenerative changes in the first carpal metacarpal joint. No eviden ce of acute fracture or dislocation. Left hand otherwise negativ e. The navicular appears normal, although a navicular view was no t obtained. CORNELIO LORENZANA MD Florinda Riley PA-C [facility] DIAGNOSTIC IMAG[facility] ORDER TOYA documented in this encounter Visit Diagnoses Diagnosis Wrist pain, left - Primary Pain in joint, forearm documented in this encounter Administered Medications Inactive Administered Medications - up to 3 most recent administrations Medication Order MAR Action Action Date Dose Rate Site HYDROcodone-acetaminophen Given 11/28/2013 12:05 PM KENO ATTENDANT 1 tablet (NORCO) 5-325 MG per tablet 1 tablet 1 tablet, Oral, ONCE, On Thu11/28/13 at 1146, For 1 dose, Maximum acetaminophen dose from all sources= 75 mg/kg/day not to exceed 4 grams documented in this encounter Active and Recently Administered Medications Times are shown in KENO ATTENDANT. Scheduled Medication Order 11/26/2013 11/27/2013 11/28/2013 HYDROcodone-acetaminophen (NORCO) 5-325 MG per tablet 1 tablet ( COMPLETED) 1205 (Given - Provider: Jessie Avalos RN) 1 tablet, Oral, ONCE, Thu11/28/13 at 114 6, For 1 dose, Maximum acetaminophen dose from all sources= 75 mg/kg/day not to exceed 4 grams documented in this encounter Care Teams Fire And Explosion Investigator Relationship Specialty Start Date End Date No Ref-Primary, Physician PCP - General 02/08/12 12/21/13 documented as of this encounter
--- OUTSIDE RECORDS SUMMARY | 2022-08-19 07:03 | XMS_ITS | Encounter Summary ---
:1975 Author Organization [place] Address [address] [place] [address] Care Team Providers Name Role Phone No Ref-Primary, Physician Primary Care Provider [phone] Encounter Details Date Type Department Care Team Description 05/10/2013 Anesthesia Event M [facility] Glen Rosado APRN CRNA [facility] ANESTHESIA [address] [place] [address] [place] [facility] Elvira Shepherd APRN CRNA [facility] ANESTHESIA [address] [place] [address] [address] [place] [address] Anesthesia Record Procedure Summary Procedure Name Responsible Anesthesia Start Time Anesthesia Stop Time Anesthesiologist lumbar puncture Glen Rosado APRN CRNA 05/10/13 1810 05/10 1836 Events Date Time Event Comment 05/10/2013 1735 1810 An Start 1836 An Stop Electronically s igned by Glen Rosado CRNA on May 10, 2013 6:36 PM Name Total lidocaine 1% 5 mL Agents No agents on file. Blood No blood administrations on file. Lines, Drains, and Airways Type Details Placement Removal Peripheral IV 05/10/13; 1541; 20 G; 05/10/13 1541 by 05/10/13 2236 by Right; Accessory Ramón Archuleta RN Trantane adrianaa, Jatin, cephalic; Chlorhexidine; RN Tolerated well documented in this encounter Social History Tobacco Use Types Packs/Day Years Used Date Smoking Tobacco: Former Smokeless Tobacco: Current Alcohol Use Standard Drinks/Week Comments Yes 0 (1 standard drink = 0.6 oz pure alcoho l) rare Sex Assigned at Date Recorded Not on file documented as of this encounter OR Notes Anesthesia Procedure Notes - Glen Rosado APRN CRNA - 05/10/2013 6:34 PM CDT Associated Order(s): ANE SPINAL BLOCK FORM Pre-Procedure Performed by Glen Rosado CRNA Location: ED. PreAnesthestic Checklist: patient identified, risks and benefits discussed, informed consent, monitors and equipment checked, pre-op evaluation and at physician/surgeon's request Timeout Correct Patient: Yes Correct Procedure: lumbar puncture Correct Site: Yes Correct Laterality: N/A Correct Position: Yes Site Marked: N/A Procedure Documentation Procedure: Lumbar puncture block.Insertion Site: L4-5 ASA: Position: sitting Prep: povidone-iodine 7.5% surgical scrub Needle: (). # of attempts: 2. # of redirects: 2. Spinal Needle: Giovanni tip (22 G, 3.5 in). introducer Assessment/[id number] mL of clear CSF fluid removed.Opening pressure was 16 cmH2O. Patient was lateral for procedure.Paresthesia's: No. Comments: Pt. Very anxious, unable to lay still, some difficulty with needle placement but tolerated well. Supine x 30mins. Post-procedure. Results d/w Dr. Sheldon. Anesthesia Preprocedure Evaluation - Glen Rosado APRN CRNA - 05/10/2013 5:22 PM CDT Anesthesia Evaluation . Pt has had prior anesthetic. History of anesthetic complications (difficulty voiding) Other ROS/MED HX Pulmonary: (+) tobacco use Past use. Neurologic: (+) Other neuro hxdescription: headache Cardiovascular: - neg cardiovascular ROS METS/Exercise Tolerance: Hematologic: - neg hematologic ROS Musculoskeletal: - neg musculoskeletal ROS GI/Hepatic: - neg GI/hepatic ROS Renal: - neg renal ROS Endo: - neg endo ROS Psychiatric: - neg psychiatric ROS Infectious Disease: - neg infectious disease ROS Other: - neg other ROS Physical Exam Normal systems: cardiovascular, pulmonary and dental Airway Mallampati: II TM distance: >3 FB Neck ROM: full Dental Cardiovascular Pulmonary Anesthesia Plan Procedure only, no anesthetic delivered. ASA Score 2 . Plan for Spinal Anesthetic plan, risks, benefits and alternatives discussed with: patient or financial sales representative. History & Physical Review History and physical reviewed; no interval change. . documented in this encounter Plan of Treatment Not on filedocumented as of this encounter Procedures Procedure Name Priority Date/Time Associated Diagnosis Comme nts ANE SPINAL BLOCK Routine 05/10/2013 6:38 PM Resul ts for this FORM CDT procedure are i n the results section. documented in this encounter Results Spinal Block (05/10/2013 6:38 PM CDT) Narrative Glen Rosado APRN CRNA - 05/10/2013 6:38 PM CDT Glen Rosado CRNA ? 05/10/2013 ??6:38 PM Pre-Procedure Performed by Glen Rosado CRNA Location: ED. ?? PreAnesthestic Checklist: patient identi fied, risks and benefits discussed, informed consent, monitors an d equipment checked, pre-op evaluation and at physician/surge on's request Timeout Correct Patient: Yes Correct Procedure: lumbar puncture Correct Site: Yes Correct Laterality: N/ A Correct Position: Yes Site Marked: N/A Procedure Documentation Procedure: ??Lumbar puncture block.Inser tion Site: L4-5 ASA: Position: sitting Prep: povidone-iodine 7.5% surgical scru b Needle: (). # of attempts: 2. # of redi rects: 2. Spinal Needle: Giovanni tip (22 G, 3.5 i n). introducer ?? Assessment/[id number] mL of clear CSF f luid removed.Opening pressure was 16 cmH2O. Patient was later al for procedure.Paresthesia's: No. Comments: Pt. Very anxious, unable to lay still, s ome difficulty with needle placement but tolerated well. Sup ine x 30mins. Post-procedure. Results d/w Dr. Jeremias arias. Procedure Note Glen Rosado APRN CRNA - 05/10/2013 6:34 PM CDT Pre-Procedure Performed by Glen Rosado CRNA Location: ED. PreAnesthestic Checklist: patient identi fied, risks and benefits discussed, informed consent, monitors and equipment checked, pre-op evaluation and at physician/surgeon's request Timeout Correct Patient: Yes Correct Procedure: lumbar puncture Correct Site: Yes Correct Laterality: N/ A Correct Position: Yes Site Marked: N/A Procedure Documentation Procedure: Lumbar puncture block.Inserti on Site: L4-5 ASA: Position: sitting Prep: povidone-iodine 7.5% surgical scru b Needle: (). # of attempts: 2. # of redi rects: 2. Spinal Needle: Giovanni tip (22 G, 3.5 i n). introducer Assessment/[id number] mL of clear CSF f luid removed.Opening pressure was 16 cmH2O. Patient was lateral for procedure.Paresthesia's: No. Comments: Pt. Very anxious, unable to lay still, s ome difficulty with needle placement but tolerated well. Supine x 30mins. Post-procedure. Results d/w Dr. Sheldon. Glen Rosado APRN SYSTEMS PLANNER [place] ANESTHESIA documented in this encounter Visit Diagnoses Not on filedocumented in this encounter Administered Medications Inactive Administered Medications - up to 3 most recent administrations Medication Order MAR Action Action Date Dose Rate Site lidocaine 1 % injection Given 05/10/2013 6:15 PM CDT 5 mLs PRN, Starting on Thu05/10/13 at 1815, Anesthesia Intra-op documented in this encounter Care Teams Outreach Consultant Relationship Specialty Start Date End Date No Ref-Primary, Physician PCP - General 02/08/12 12/21/13 documented as of this encounter
--- OUTSIDE RECORDS SUMMARY | 2022-08-19 07:03 | XMS_ITS | Encounter Summary ---
:1975 Author Organization [facility] Address [address] [place] [id number] Care Team Providers Name Role Phone Primary Dr, Fabiola SLOAN Primary Care Provider Unavailable Reason for Visit Reason Comments Chest Pain cp that radiates to lt arm, lightheaded, dizzy Encounter Details Date Type Department Care Team Description 12/22/2013 - Emergency [facility] Kaden Smith MD [address] [facility] [facility] [address] Chest pain (Primary 12/23/2013 [facility] Haily Tomlinson PA-C XXX RESIGNED XXX [address] [place], [place] [id number] Dx) Dept [address] [place] [id number] Social History Tobacco Use Types Packs/Day Years Used Date Smoking Tobacco: Former Smokeless Tobacco: Current Alcohol Use Standard Drinks/Week Comments Yes 0 (1 standard drink = 0.6 oz pure alcoho l) rare Sex Assigned at Date Recorded Not on file documented as of this encounter Last Filed Vital Signs Vital Sign Reading Time Taken Comments Blood Pressure 139/96 12/23/2013 1:30 AM CDT Pulse - - Temperature 36.7 ??C (98.1 ??F) 12/22/2013 7:34 PM CDT Respiratory Rate 16 12/23/2013 12:15 AM CDT Oxygen Saturation 97% 12/23/2013 12:15 AM CDT Inhaled Oxygen Concentration - - Weight - - Height - - Body Mass Index - - documented in this encounter Discharge Instructions Discharge InstructionsMoKaden mccormack MD - 12/23/2013 12:14 AM CDT 1. Chest pain Possible pericarditis. No other obvious causes. Take ibuprofen 800 every 8 hours with food or milk.percocet for breakthrough pain. Return immed for light headedness, worsening. documented in this encounter Medications at Time of Discharge Medication Sig Dispensed Refills Start Date End Date oxyCODONE-acetaminophen Take 1-2 tablets by 15 tablet 0 12/26/2013 (PERCOCET) 5-325 MG per mouth every 6 hours tablet as needed for moderate to severe pain documented as of this encounter ED Notes Haily Tomlinson PA-C - 12/23/2013 2:18 AM CDT Patient signed out to me by Dr. Smith at shift change. Please see his note for full history and initial workup. In short patient presents with chest pain not improved with SL nitro with normal serial EKGs and troponins. Patient awaiting chest CT to rule out PE or dissection. Plan to discharge home pending normal chest CT and repeat EKG and troponin after return. EKG Interpretation: Interpreted by Haily Tomlinson PA-C/Dr. Dudley Time reviewed: 1:00 AM Symptoms at time of EKG: chest pain Rhythm: normal sinus Rate: normal [place]: NORMAL Ectopy: none Conduction: normal ST Segments/ T Waves: No ST-T wave changes Q Waves: none Comparison to prior: Unchanged Clinical Impression: normal EKG Troponin: <0.012 CT chest with contrast per preliminary radiology report by Dr. Bryan: 1. No visualized PE 2. Normal caliber thoracic aorta without dissection 3. Lung are clear I reviewed these results with the patient. Follow up already arranged. Patient has no further questions and feels comfortable with discharge home. Haily Tomlinson PA-C 12/23/13 022 Sharon Corona RN - 12/23/2013 12:56 AM CDT Medications given patient getting another EKG and repeat tropoinin Sharon Corona RN - 12/22/2013 11:46 PM CDT Patient up walking to BR with assistance Diana Cruz RN - 12/22/2013 10:19 PM CDT Pt denies any relief in chest pain after medication administration. Pt reports no relief after DuoNeb treatment its just making me cough. Pt continues to report pain is a 10 out of 10 and radiates tohis left arm. Pt presents more calm at this time compared to presentation upon arrival. Pt breathingwithout difficulty and oxygen saturation remains at 96% on room air. Kaden Smith MD - 12/22/2013 8:00 PM CDT History Chief Complaint Patient presents with ??? Chest Pain cp that radiates to lt arm, lightheaded, dizzy The history is provided by the patient. [...] tobacco since he was 10 years old. Social History He is a former smoker, he currently uses smokeless tobacco. I have reviewed the Medications, Allergies, Past Medical and Surgical History, and Social History inthe Gre[employer] system. Past Medical History Diagnosis Date ??? Migraines ??? History of suicidal tendencies attempted to hang himself as a teenager Past Surgical History Procedure Date ??? Orthopedic surgery History Substance Use Topics ??? Smoking status: Former Smoker ??? Smokeless tobacco: Current User ??? Alcohol Use: Yes Comment: rare Allergies Allergen Reactions ??? Latex ??? Latex ??? Penicillin G Nausea and Vomiting ??? Penicillins Nausea and Vomiting ??? Toradol Hives ??? Tape (Adhesive Tape) Rash And skin breaks out. Review of Systems Constitutional: Negative. Negative for fever and chills. HENT: Negative. Eyes: Negative. Respiratory: Negative. Cardiovascular: Positive for chest pain. Gastrointestinal: Negative. Negative for abdominal pain, diarrhea, constipation and blood in stool. Genitourinary: Negative. Musculoskeletal: Negative. Skin: Positive for color change (bruise to right calf). Neurological: Positive for dizziness and light-headedness. Hematological: Negative. Psychiatric/Behavioral: Negative. Physical Exam BP: 136/92 mmHg Heart Rate: 82 Temp: 98.1 ??F (36.7 ??C) SpO2: 99 % Physical Exam Constitutional: He is oriented to person, place, and time. He appears well-developed. HENT: Head: Normocephalic and atraumatic. Neck: Normal range of motion. Cardiovascular: Normal rate, regular rhythm and normal heart sounds. Pulmonary/Chest: Effort normal and breath sounds normal. No respiratory distress. Abdominal: There is tenderness. There is no rebound and no guarding. Musculoskeletal: Normal range of motion. Neurological: He is alert and oriented to person, place, and time. Skin: He is not diaphoretic. Bruising to right medial calf underlying tattoo. Psychiatric: His behavior is normal. Thought content normal. ED Course Procedures EKG Interpretation: Interpreted by Kaden Smith MD Time reviewed: 2024 Symptoms at time of EKG: chest pain Rhythm: normal sinus Rate: normal [place]: NORMAL Ectopy: none Conduction: normal ST Segments/ T Waves: No ST-T wave changes Q Waves: none Comparison to prior: No old EKG available Clinical Impression: normal EKG Interpreted by Kaden Smith MD Time reviewed: 1944 Symptoms at time of EKG: chest pain Rhythm: normal sinus Rate: normal [place]: NORMAL Ectopy: none Conduction: normal ST Segments/ T Waves: No ST-T wave changes Q Waves: none Comparison to prior: No old EKG available Clinical Impression: normal EKG Interpreted by Kaden Smith MD Time reviewed: 2353 Symptoms at time of EKG: chest pain Rhythm: normal sinus Rate: normal [place]: NORMAL Ectopy: none Conduction: normal ST Segments/ T Waves: No ST-T wave changes Q Waves: none Comparison to prior: No old EKG available Clinical Impression: normal EKG [facility] Procedure Note Limited Bedside ED Cardiac Ultrasound: PROCEDURE: PERFORMED BY: Dr. Kaden Smith MD INDICATIONS/SYMPTOM: Chest Pain PROBE: Cardiac phased array probe BODY LOCATION: Chest FINDINGS: The ultrasound was performed utilizing the subcostal and parasternal long axis views. Cardiac contractility: Present Gross estimation of cardiac kinesis: normal Pericardial Effusion: None RV:LV ratio: LV > RV INTERPRETATION: Chamber size and motion were grossly normal with LV > RV, normal cardiac kinesis.No pericardial effusion was found. IMAGE DOCUMENTATION: Images were archived to PACs system. Critical Care time: was 30 minutes for this patient excluding procedures. CMS Diagnoses: None Results for orders placed during the hospital encounter of 12/22/13 CBC WITH PLATELETS DIFFERENTIAL Component Value Range WBC 7.2 4.0 - 11.0 10e9/L RBC Count 4.97 4.4 - 5.9 10e12/L Hemoglobin 15.6 13.3 - 17.7 g/dL Hematocrit 44.4 40.0 - 53.0 % MCV 89 78 - 100 fl MCH 31.4 26.5 - 33.0 pg MCHC 35.1 31.5 - 36.5 g/dL RDW 12.2 10.0 - 15.0 % Platelet Count 234 150 - 450 10e9/L Diff Method Automated Method % Neutrophils 67.1 % Lymphocytes 25.0 % Monocytes 7.0 % Eosinophils 0.4 % Basophils 0.4 % Immature Granulocytes 0.1 Absolute Neutrophil 4.8 1.6 - 8.3 10e9/L Absolute Lymphocytes 1.8 0.8 - 5.3 10e9/L Absolute Monoctyes 0.5 0.0 - 1.3 10e9/L Absolute Eosinophils 0.0 0.0 - 0.7 10e9/L Absolute Basophils 0.0 0.0 - 0.2 10e9/L Abs Immature Granulocytes 0.0 0 - 0.4 10e9/L BASIC METABOLIC PANEL Component Value Range Sodium 138 133 - 144 mmol/L Potassium 3.6 3.4 - 5.3 mmol/L Chloride 104 94 - 109 mmol/L Carbon Dioxide 21 20 - 32 mmol/L Anion Gap 13 6 - 17 mmol/L Glucose 94 60 - 99 mg/dL Urea Nitrogen 10 5 - 24 mg/dL Creatinine 0.83 0.66 - 1.25 mg/dL GFR Estimate >90 >60 mL/min/1.7m2 GFR Estimate If Black >90 >60 mL/min/1.7m2 Calcium 9.1 8.5 - 10.4 mg/dL TROPONIN I Component Value Range Troponin I ES <0.012 0.000 - 0.034 ug/L XR CHEST 2 VW Narrative: XR CHEST 2 VW 12/22/2013 8:42 PM HISTORY: chest pain, COMPARISON: Film dated 03/15/2012 FINDINGS: The heart is negative. The lungs are clear. The pulmonary vasculature is normal. The bones and soft tissues are unremarkable. Impression: IMPRESSION: No active infiltrate. SOFIA ORELLANA MD URINE MACROSCOPIC WITH REFLEX TO MICRO Component Value Range Color Urine Straw Appearance Urine Clear Glucose Urine Negative NEG mg/dL Bilirubin Urine Negative NEG Ketones Urine Negative NEG mg/dL Specific [place] Urine 1.001 (*) 1.003 - 1.035 Blood Urine Negative NEG pH Urine 6.5 5.0 - 7.0 pH Protein Albumin Urine Negative NEG mg/dL Urobilinogen mg/dL Normal 0.0 - 2.0 mg/dL Nitrite Urine Negative NEG Leukocyte Esterase Urine Negative NEG Source Midstream Urine HEPATIC PANEL Component Value Range Bilirubin Conjugated 0.0 0.0 - 0.3 mg/dL Bilirubin Delta 0.3 0.0 - 0.4 mg/dL Bilirubin Total 0.5 0.2 - 1.3 mg/dL Albumin 4.4 3.9 - 5.1 g/dL Protein Total 7.8 6.8 - 8.8 g/dL Alkaline Phosphatase 124 40 - 150 U/L ALT 50 0 - 70 U/L AST 36 0 - 45 U/L D DIMER QUANTITATIVE Component Value Range D Dimer <0.3 0.0 - 0.50 ug/ml FEU LIPASE Component Value Range Lipase 70 20 - 250 U/L MONONUCLEOSIS SCREEN Component Value Range Mononucleosis Screen Negative NEG TROPONIN I Component Value Range Troponin I ES 0.022 0.000 - 0.034 ug/L No results found for this or any previous visit (from the past 24 hour(s)). Medications ordered to be administered in the ER: 8:00 PM Patient assessed. 8:10 PM Nitro administered 8:15PM Patient rates his chest pain at a 9/10. 8:18 PM Patient given third nitro Assessments & Plan (with Medical Decision Making) MDM: Conor Jaimes is a 38 year old male with only risk of tobacco use presents with chest pain onset approximate 7 PM while at rest without exertion all well shortness of breath persistent pain it radiated from his chest into his left arm and into his left neck. Possibly worse when leaning forward. Never had this type pain before no overuse of the chest. No relief with nitroglycerin x3 sublingual, no relief with GI cocktail or with nebulizer treatment for Ativan and the relief was with Dilaudid. He was given ibuprofen which he tolerated although he has had apparently a rash Toradol. I reviewed [place] monitoring program and has had sporadic opioids used over the course of the last year. Did not appear to be excessive. 3 EKGs normal and 2 troponins are normal range. D-Dimer and other labs normal he is currently pending a CT chest for dissection it is negative as well as one additional repeat troponin and EKG, he'll be discharged home. I signed out to Haily Tomlinson who will see him after this is performed/ prescribed Percocet in addition to his ibuprofen for home setting up a followup with Dr. Diaz on Thursday in the clinic. He knows to return immediately for acute worsening. I did also discuss with Dr. Deluca at [facility] in cardiology and he has no additional r ecommendations for this patient. I have reviewed the nursing notes. I have reviewed the findings, diagnosis, plan and need for follow up with the patient. New Prescriptions No medications on file 1. Chest pain Possible pericarditis. No other obvious causes. Take ibuprofen 800 every 8 hours with food or milk.percocet for breakthrough pain. Return immed for light headedness, worsening. This document serves as a record of the services and decisions personally performed and made by Kaden Smith MD. It was created on HIS/HER behalf by Luz Maria Castaneda, a trained lpn or medical assistant. The creation of this document is based the provider's statements to the lpn or medical assistant. Luz Maria Castaneda 8:00 PM 12/22/2013 Provider: The information in this document, created by the lpn or medical assistant for me, accurately reflects the services I personally performed and the decisions made by me. I have reviewed and approved this document for accuracy prior to leaving the patient care area. Kaden Smith MD 8:00 PM 12/22/2013 12/22/2013 [facility] EMERGENCY DEPARTMENT Kaden Smith MD 12/23/13 0023 documented in this encounter Plan of Treatment Scheduled Orders Name Type Priority Associated Diagnoses Order S chedule US Bedside Non Imaging STAT One time imag ing for 1 Radiology Occurrences sta rting 12/22/2013 unti l 12/22/2013 documented as of this encounter Procedures Procedure Name Priority Date/Time Associated Comments Diagnosis TROPONIN I Timed 12/23/2013 1:01 AM Results f or this CDT procedure are i n the results section. EKG 12-LEAD, TRACING STAT 12/23/2013 12:58 Res ults for this ONLY AM CDT procedure are i n the results section. CT CHEST W CONTRAST STAT 12/23/2013 12:33 Resu lts for this AM CDT procedure are i n the results section. EKG 12-LEAD, TRACING STAT 12/22/2013 11:54 Res ults for this ONLY PM CDT procedure are i n the results section. TROPONIN I STAT 12/22/2013 10:56 Results for this PM CDT procedure are i n the results section. XR CHEST 2 VIEWS STAT 12/22/2013 8:42 PM Resul ts for this CDT procedure are i n the results section. EKG 12-LEAD, TRACING STAT 12/22/2013 8:23 PM R esults for this ONLY CDT procedure are i n the results section. URINE MACROSCOPIC WITH STAT 12/22/2013 8:12 PM Results for this REFLEX TO MICRO CDT procedure ar e in the results section. CBC WITH PLATELETS & STAT 12/22/2013 8:04 PM R esults for this DIFFERENTIAL CDT procedure are i n the results section. TROPONIN I STAT 12/22/2013 8:04 PM Results f or this CDT procedure are i n the results section. MONONUCLEOSIS SCREEN Routine 12/22/2013 8:04 PM R esults for this CDT procedure are i n the results section. LIPASE Routine 12/22/2013 8:04 PM Results f or this CDT procedure are i n the results section. HEPATIC FUNCTION PANEL Routine 12/22/2013 8:04 PM Results for this CDT procedure are i n the results section. D DIMER QUANTITATIVE Routine 12/22/2013 8:04 PM R esults for this CDT procedure are i n the results section. BASIC METABOLIC PANEL STAT 12/22/2013 8:04 PM Results for this CDT procedure are i n the results section. EKG 12-LEAD, TRACING STAT 12/22/2013 7:45 PM R esults for this ONLY CDT procedure are i n the results section. documented in this encounter Results Troponin I (12/23/2013 1:01 AM CDT) P athologist Signature Troponin I ES <0.012 0.000 - [facility] 0.034 ug/L [facility] Specimen Anatomical Collection Method Collection Time Receive d Time (Source) Location / / Volume Laterality Blood specimen 12/23/2013 1:01 AM 014 1:12 (specimen) CDT AM CDT Kaden Smith MD LAB - BLOOD ORDERABLES Performing Organization Address City/State/ZIP Code Phon e Number [facility] [address] [place], [place] [address] [facility] EKG 12 lead (12/23/2013 12:58 AM CDT) Narrative This result has an attachment that is no t available. Kaden Smith MD ECG ORDERABLES Chest CT - IV contrast only - TRAUMA / DISSECTION (12/23/2013 12:33 AM CDT) Anatomical Region Laterality Modality Chest, SUBRAD CT BODY, UMP CT CHEST Comp uted Tomography Specimen (Source) Anatomical Location Collection Method / Collectio n Time Received Time / Laterality Volume Impressions 12/23/2013 1:26 PM CDT IMPRESSION: No acute abnormality is visualized. No evidence for pulmonary embolism. FIDENCIO GUTIERREZ MD Narrative 12/23/2013 1:[address] CHEST WITH CONTRAST ??12/23/2013 12:33 AM HISTORY: ??Pain. TECHNIQUE: Scans obtained from the apice s through the diaphragm with IV contrast. 80 mL of Isovue 370 injecte d. COMPARISON: ??Chest x-ray 12/22/2013. FINDINGS: ??No acute thoracic aortic abn ormality. No evidence for pulmonary embolism. No effusions. No acu te airspace disease. No enlarged lymph nodes. Upper abdomen imag es are negative for any acute abnormality. Procedure Note Fidencio Gutierrez MD - 12/23/2013Forma tting of this note might be different from the original. CT CHEST WITH CONTRAST 12/23/2013 12:33 A M HISTORY: Pain. TECHNIQUE: Scans obtained from the apice s through the diaphragm with IV contrast. 80 mL of Isovue 370 injecte d. COMPARISON: Chest x-ray 12/22/2013. FINDINGS: No acute thoracic aortic abnor mality. No evidence for pulmonary embolism. No effusions. No acu te airspace disease. No enlarged lymph nodes. Upper abdomen imag es are negative for any acute abnormality. IMPRESSION IMPRESSION: No acute abnormality is visu alized. No evidence for pulmonary embolism. FIDENCIO GUTIERREZ MD Kaden Smith MD IMG CT ORDERABLES EKG 12 lead (12/22/2013 11:54 PM CDT) Narrative This result has an attachment that is no t available. Kaden Smith MD ECG ORDERABLES Troponin I (12/22/2013 10:56 PM CDT) P athologist Signature Troponin I ES 0.022 0.000 - [place] 0.034 ug/L [facility] Specimen Anatomical Collection Method Collection Time Receive d Time (Source) Location / / Volume Laterality Blood specimen 12/22/2013 10:56 4 (specimen) PM CDT 10:58 PM CDT Kaden Smith MD LAB - BLOOD ORDERABLES Performing Organization Address City/State/ZIP Code Phon e Number [facility] [address] [place], [place] [address] [facility] Chest XR, PA & LAT (12/22/2013 8:42 PM CDT) Anatomical Region Laterality Modality Chest Computed Radiography Specimen (Source) Anatomical Location Collection Method / Collectio n Time Received Time / Laterality Volume Impressions 12/22/2013 9:01 PM CDT IMPRESSION: No active infiltrate. ? SOFIA ORELLANA MD Narrative 12/22/2013 9:01 PM CDT XR CHEST 2 VW ?? 12/22/2013 8:42 PM HISTORY: chest pain, COMPARISON: Film dated 03/15/2012 FINDINGS: The heart is negative. ??The l ungs are clear. The pulmonary vasculature is normal. ??The bones and s oft tissues are unremarkable. ? Procedure Note Pietro Orellana MD - 12/22/2013For matting of this note might be different from the original. XR CHEST 2 VW 12/22/2013 8:42 PM HISTORY: chest pain, COMPARISON: Film dated 03/15/2012 FINDINGS: The heart is negative. The carmen gs are clear. The pulmonary vasculature is normal. The bones and sof t tissues are unremarkable. IMPRESSION IMPRESSION: No active infiltrate. SOFIA ORELLANA MD Kaden Smith MD IMG DIAGNOSTIC IMAGING ORDER [place] EKG 12 lead (12/22/2013 8:23 PM CDT) Narrative This result has an attachment that is no t available. Kaden Smith MD ECG ORDERABLES (ABNORMAL) UA reflex to microscopic (12/22/2013 8:12 PM CDT) [facility] Method Time Signature Color Urine Straw [facility] Appearance Urine Clear [facility] Glucose Urine Negative NEG mg/dL [facility] Bilirubin Urine Negative NEG [facility] Ketones Urine Negative NEG mg/dL [facility] Specific [place] 1.001 (L) 1.003 - [place] Urine 1.035 [facility] Blood Urine Negative NEG [facility] pH Urine 6.5 5.0 - 7.0 [place] pH [facility] Protein Albumin Negative NEG mg/dL [place] Urine [facility] Urobilinogen Normal 0.0 - 2.0 [place] mg/dL mg/dL [facility] Nitrite Urine Negative NEG [facility] Leukocyte Negative NEG [place] Esterase Urine [facility] Source Midstream [place] Urine [facility] Specimen Anatomical Collection Method Collection Time Receive d Time (Source) Location / / Volume Laterality Urine specimen URINE SPECIMEN 12/22/2013 8:12 PM 12/22 8:36 (specimen) OBTAINED BY CLEAN CDT PM CDT CATCH PROCEDURE / Unknown Kaden Smith MD LAB - URINE ORDERABLES Performing Organization Address City/[facility]/ZIP Code Phon e Number [facility] [address] [place], [place] [address] [facility] Mononucleosis screen (12/22/2013 8:04 PM CDT) Patholo gist Method Time Signature Mononucleosis Negative NEG [facility] Specimen Anatomical Collection Method Collection Time Receive d Time (Source) Location / / Volume Laterality 12/22/2013 8:04 PM 4 CDT 10:11 PM CDT Kaden Smith MD LAB - BLOOD ORDERABLES Performing Organization Address City/[facility]/ZIP Code Phon e Number [facility] [address] [place], [place] [address] [facility] Lipase (12/22/2013 8:04 PM CDT) P athologist Signature Lipase 70 20 - 250 [facility] U/L [facility] Specimen Anatomical Collection Method Collection Time Receive d Time (Source) Location / / Volume Laterality 12/22/2013 8:04 PM 4 8:21 CDT PM CDT Kaden Smith MD LAB - BLOOD ORDERABLES Performing Organization Address City/[facility] Code Phon e Number [facility] [address] [place], [place] [address] [facility] D dimer quantitative (12/22/2013 8:04 PM CDT) P athologist Signature D Dimer <0.3 0.0 - 0.50 [facility] ug/ml [facility] Specimen Anatomical Collection Method Collection Time Receive d Time (Source) Location / / Volume Laterality 12/22/2013 8:04 PM 4 8:21 CDT PM CDT Kaden Smith MD LAB - BLOOD ORDERABLES Performing Organization Address City/[facility]/ZIP Code Phon e Number [facility] [address] [place], [place] [address] [facility] Hepatic panel (12/22/2013 8:04 PM CDT) athologist Signature Bilirubin 0.0 0.0 - 0.3 [facility] Conjugated mg/dL [facility] Bilirubin Delta 0.3 0.0 - 0.4 [facility] mg/dL [facility] Bilirubin Total 0.5 0.2 - 1.3 [facility] mg/dL [facility] Albumin 4.4 3.9 - 5.1 [facility] g/dL [facility] Protein Total 7.8 6.8 - 8.8 [facility] g/dL [facility] Alkaline 124 40 - 150 [facility] Phosphatase U/L [facility] ALT 50 0 - 70 U/L [facility] AST 36 0 - 45 U/L [facility] Specimen Anatomical Collection Method Collection Time Receive d Time (Source) Location / / Volume Laterality 12/22/2013 8:04 PM 4 8:21 CDT PM CDT Kaden Smith MD LAB - BLOOD ORDERABLES Performing Organization Address City/[facility] Phon e Number [facility] [address] [place], [place] [address] [facility] Troponin I (12/22/2013 8:04 PM CDT) athologist Signature Troponin I ES <0.012 0.000 - [facility] 0.034 ug/L [facility] Specimen Anatomical Collection Method Collection Time Receive d Time (Source) Location / / Volume Laterality Blood specimen 12/22/2013 8:04 PM 014 8:14 (specimen) CDT PM CDT Kaden Smith MD LAB - BLOOD ORDERABLES Performing Organization Address City/[facility]/ZIP Code Phon e Number [facility] [address] [place], [place] [address] [facility] Basic metabolic panel (12/22/2013 8:04 PM CDT) P athologist Signature Sodium 138 133 - 144 [facility] mmol/L [facility] Potassium 3.6 3.4 - 5.3 [facility] mmol/L [facility] Chloride 104 94 - 109 [facility] mmol/L [facility] Carbon Dioxide 21 20 - 32 [facility] mmol/L [facility] Anion Gap 13 6 - 17 [facility] mmol/L [facility] Glucose 94 60 - 99 [facility] [facility] mg/dL [facility] Urea Nitrogen 10 5 - 24 [facility] mg/dL [facility] Creatinine 0.83 0.66 - [facility] 1.25 mg/dL [facility] GFR Estimate >90 >60 [facility] mL/min/1.7 [facility] m2 [facility] GFR Estimate If >90 >60 [facility] mL/min/1.7 [facility] m2 [facility] Calcium 9.1 8.5 - 10.4 [facility] mg/dL [facility] Specimen Anatomical Collection Method Collection Time Receive d Time (Source) Location / / Volume Laterality Blood specimen 12/22/2013 8:04 PM 014 8:14 (specimen) CDT PM CDT Kaden Smith MD LAB - BLOOD ORDERABLES Performing Organization Address City/State/ZIP Code Phon e Number [facility] [address] [place], [place] [address] [facility] CBC with platelets differential (12/22/2013 8:04 PM CDT) Patholo gist Method Time Signature [facility] 7.2 4.0 - [facility] 11.0 [facility] 10e9/L [facility] RBC Count 4.97 4.4 - 5.9 [place] 10e12/L [facility] Hemoglobin 15.6 13.3 - [place] 17.7 g/dL [facility] Hematocrit 44.4 40.0 - [facility] 53.0 % [facility] MCV 89 78 - 100 [facility] MCH 31.4 26.5 - [place] 33.0 pg [facility] MCHC 35.1 31.5 - [place] 36.5 g/dL [facility] RDW 12.2 10.0 - [place] 15.0 % [facility] Platelet Count 234 150 - 450 [place] 10e9/L [facility] Diff Method Automated [facility] % Neutrophils 67.1 % [facility] % Lymphocytes 25.0 % [facility] % Monocytes 7.0 % [facility] % Eosinophils 0.4 % [facility] % Basophils 0.4 % [facility] % Immature 0.1 % [place] Granulocytes [facility] Absolute 4.8 1.6 - 8.3 [place] Neutrophil 10e9/L [facility] Absolute 1.8 0.8 - 5.3 [place] Lymphocytes 10e9/L [facility] Absolute 0.5 0.0 - 1.3 [place] Monocytes 10e9/L [facility] Absolute 0.0 0.0 - 0.7 [place] Eosinophils 10e9/L [facility] Absolute 0.0 0.0 - 0.2 [place] Basophils 10e9/L [facility] Abs Immature 0.0 0 - 0.4 [place] Granulocytes 10e9/L [facility] Specimen Anatomical Collection Method Collection Time Receive d Time (Source) Location / / Volume Laterality Blood specimen 12/22/2013 8:04 PM 014 8:14 (specimen) CDT PM CDT Kaden Smith MD LAB - BLOOD ORDERABLES Performing Organization Address City/State/ZIP Code Phon e Number [facility] [address] [place], [place] [address] [facility] EKG 12 lead (12/22/2013 7:45 PM CDT) Narrative This result has an attachment that is no t available. Kaden Smith MD ECG ORDERABLES documented in this encounter Visit Diagnoses Diagnosis Chest pain - Primary Chest pain, unspecified documented in this encounter Administered Medications Inactive Administered Medications - up to 3 most recent administrations Medication Order MAR Action Action Date Dose Rate Site 0.9 % sodium chloride IV New Bag 12/22/2013 9:06 PM CDT 1,000 mLs 125 mL/hr solution at 125 mL/hr, Intravenous, CONTINUOUS, Administer after the bolus/s, Starting on Sera 12/22/13 at 2017, Until Thu12/23/13 at 0358 HYDROmorphone (PF) (DILAUDID) injection 0.5 Given 12/22/2013 9:34 PM CDT 0.5 mg mg 0.5 mg, Intravenous, ONCE, On Sera 12/22/13 at 2133, For 1 dose ibuprofen (ADVIL,MOTRIN) tablet 800 mg Given 12/22/2013 9:58 PM CDT 800 mg 800 mg, Oral, ONCE, On Sera 12/22/13 at 2142, For 1 dose, has taken ibu without allergic reaction iopamidol (ISOVUE-370) 76% solution 100 mL Given 12/23/2013 12:20 AM CDT 80 mLs 100 mL, Intravenous, ONCE, On Thu12/23/13 at 0009, For 1 dose ipratropium - albuterol 0.5 mg/2.5 mg/3 mL Given 12/22/2013 9:58 PM CDT 3 mLs (DUONEB) nebulizer solution 3 mL 3 mL, Nebulization, ONCE, On Sera 12/22/13 at 2142, For 1 dose lidocaine (XYLOCAINE) 2 % 15 mL, alum & mag Given 12/22/2013 8:39 PM CDT 30 mLs hydroxide-simethicone (MYLANTA ES/MAALOX ES) 15 mL GI Cocktail 30 mL, Oral, ONCE, On Sera 12/22/13 at 2017, For 1 dose LORazepam (ATIVAN) injection 0.5 mg Given 12/22/2013 8:39 PM CDT 0.5 mg 0.5 mg, Intravenous, ONCE, On Sera 12/22/13 at 2017, For 1 dose LORazepam (ATIVAN) injection 0.5 mg Given 12/22/2013 11:18 PM CDT 0.5 mg 0.5 mg, Intravenous, ONCE, On Sera 12/22/13 at 2316, For 1 dose nitroglycerin (NITROSTAT) SL tablet 0.4 mg Given 12/22/2013 8:11 PM CDT 0.4 mg 0.4 mg, Sublingual, ONCE PRN, chest pain, Starting on Sera 12/22/13 at 2005, For 1 dose, If SBP > 90mmHg (Hold Nitroglycerin if sildenafil (VIAGRA) has been taken within 8 hours; vardenafil (LEVITRA) has been taken within 18 hours; tadalafil (CIALIS) has been taken within 36 hours- contact physician if this is the case) oxyCODONE-acetaminophen (PERCOCET) 5-325 Given 014 12:41 AM CDT 2 tablets MG per tablet 2 tablet 2 tablet, Oral, ONCE, On Sera 12/22/13 at 2358, For 1 dose, Maximum acetaminophen dose from all sources= 75 mg/kg/day not to exceed 4 grams documented in this encounter Active and Recently Administered Medications Times are shown in CDT. Scheduled Medication Order 12/21/2013 12/22/2013 12/23/2013 HYDROmorphone (PF) (DILAUDID) injection 0.5 mg (COMPLETED) 2133 (Given - Provider: Diana Cruz RN) 0.5 mg, Intravenous, ONCE, 1 dose, Sera 12/22/13 at 2132 ibuprofen (ADVIL,MOTRIN) tablet 800 mg (COMPLETED) 2157 (Given - Provider: Diana Cruz RN) 800 mg, Oral, ONCE, Sera 12/22/13 at 2141, For 1 dose, has taken ibu without allergic reaction iopamidol (ISOVUE-370) 76% solution 100 mL (COMPLETED) 19 (Given - Provider: Clauson. White) 100 mL, Intravenous, ONCE, Thu12/23/13 at 0009, For 1 dose ipratropium - albuterol 0.5 mg/2.5 mg/3 mL (DUONEB) nebulizer solution 3 mL (COMPLETED) 2157 (Given - Provider: Diana Cruz RN ) 3 mL, Nebulization, ONCE, Sera 12/22/13 at 214, For 1 dose lidocaine (XYLOCAINE) 2 % 15 mL, alum & mag hydroxide-simethicone (MYLANTA ES/MAALOX ES) 15 mL GI Cocktail (COMPLETED) 2038 (Give n - Provider: Diana Cruz RN) 30 mL, Oral, ONCE, Sera 12/22/13 at 2016, For 1 dose LORazepam (ATIVAN) injection 0.5 mg (COMPLETED) 2038 (Given - Provider: Diana Cruz RN) 0.5 mg, Intravenous, ONCE, Sera 12/22/13 at 2016, For 1 dose LORazepam (ATIVAN) injection 0.5 mg (COMPLETED) 2317 (Given - Provider: Diana Cruz RN) 0.5 mg, Intravenous, ONCE, Sera 12/22/13 at 2316, For 1 dose oxyCODONE-acetaminophen (PERCOCET) 5-325 MG per tablet 2 tablet (COMPLETED) 0041 (Given - Provider: Sharon Corona RN) 2 tablet, Oral, ONCE, Sera 12/22/13 at 235 8, For 1 dose, Maximum acetaminophen dose from all sources= 75 mg/kg/day not to exceed 4 grams Continuous Medication Order 12/21/2013 12/22/2013 12/23/2013 0.9 % sodium chloride IV solution (CANCELED) 2106 (New Bag - Provider: Diana Cruz RN) 0149 (Stopped - Provider: Vadim Garzon) at 125 mL/hr, Intravenous, CONTINUOUS, A dminister after the bolus/s, Starting Sera 12/22/13 at 2017, Until Thu12/23/13 at 0358 PRN Medication Order 12/21/2013 12/22/2013 12/23/2013 nitroglycerin (NITROSTAT) SL tablet 0.4 mg (COMPLETED) 2010 (Given - Provider: Diana Cruz RN) 0.4 mg, Sublingual, ONCE PRN, chest pain , Starting Sera 12/22/13 at 2005, For 1 dose, If SBP > 90mmHg (Hold Nitroglycerin if sildenafil (VIAGRA) has been taken within 8 hours; vardenafil (LEVITRA) has been taken within 18 hours; tadalafil (C IALIS) has been taken within 36 hours- contact physician if this is the case) documented in this encounter Care Teams Legal Activity Adjudicator Relationship Specialty Start Date End Date Primary Fabiola Bertrand MD PCP - General 12/22/1305/14 documented as of this encounter
--- OUTSIDE RECORDS SUMMARY | 2022-08-19 07:04 | XMS_ITS | Encounter Summary ---
:1975 Author Organization [facility] Address [address] [place] [id number] Care Team Providers Name Role Phone No Ref-Primary, Physician Primary Care Provider [phone] Reason for Visit Reason Comments Foot Pain Encounter Details Date Type Department Care Team Description 09/21/2012 [facility] Duc Villanueva A nkle sprain ([facility] Emergency Dep t MD Dx) [address] [facility] [place] [id number] 0[address] [facility] [phone] [place], [place] [address] (Wo rk) Social History Tobacco Use Types Packs/Day Years Used Date Smoking Tobacco: Former Smokeless Tobacco: Current Alcohol Use Standard Drinks/Week Comments Yes 0 (1 standard drink = 0.6 oz pure alcoho l) rare Sex Assigned at Date Recorded Not on file documented as of this encounter Last Filed Vital Signs Vital Sign Reading Time Taken Comments Blood Pressure 118/70 09/21/2012 9:23 AM [employer] Pulse 74 09/21/2012 9:23 AM [employer] Temperature 37 ??C (98.6 ??F) 09/21/2012 7:56 AM [employer] Respiratory Rate 16 09/21/2012 9:23 AM [employer] Oxygen Saturation 99% 09/21/2012 9:23 AM [employer] Inhaled Oxygen Concentration - - Weight - - Height - - Body Mass Index - - documented in this encounter Discharge Instructions Discharge InstructionsDuc Villanueva MD - 09/21/2012 8:55 AM [employer] Discharge Instructions Ankle Sprain An ankle sprain is a stretching or tearing of a ligament around your ankle joint. In most cases, we recommend resting the ankle for about 3 days, followed by return to activity. Some severe sprains need longer periods of rest, or can require a cast or boot to immobilize them. Return to the Emergency Department if: Your pain is much worse, or if there is pain in a new area. Your foot or leg becomes pale, cool, blue, or numb or tingling There is anything concerning to you about how your ankle looks Any splint or device is feeling too tight, causing pain, or rubbing into your skin Follow-up with your doctor: As recommended by your emergency physician If your ankle is not back to normal within about 1 week If you are involved in significant athletic activities Treatment: Apply ice your injured area for 15 minutes at a time, at least 3 times a day for the first 1-2 days. Use a cloth between the ice bag and your skin to prevent frostbite. Do not sleep with an ice pack or heating pad on, since this can cause caal or skin injury. Raise the injured area above the level of your heart as much as possible in the first 1-2 days. Pain medications -- Take a pain medication such as acetaminophen (Tylenol??), ibuprofen (Advil??, Nuprin ??) or naproxen (Aleve??). If you have been given a narcotic (such as codeine, hydrocodone, or oxycodone) do not drive for four hours after you have taken it. If the narcotic contains acetaminophen (Tylenol), do not take Tylenol with it. All narcotics tend to cause constipation, so eat a high fiber diet. Splint. We often give a stirrup-shaped ankle splint to support your ankle and prevent it from turning again. Wear this all the time for the first 3-5 days, and then as directed by your doctor. Crutches. If you can???t put wait on the ankle without a lot of pain, we recommend crutches. You can put as much weight on the ankle as possible without severe pain. Compression. An elastic bandage (Bear ?? wrap) can help with pain and swelling. Remove this at leasttwice a day, and leave it off for several hours if you develop swelling of the foot. Remember that you can always come back to the Emergency Department if you are not able to see your regular doctor in the amount of time listed above, if you get any new symptoms, or if there is anything that worries you. [employer] documented in this encounter Medications at Time of Discharge Medication Sig Dispensed Refills Start Date End Date oxyCODONE-acetaminophen Take 1-2 tablets by 15 tablet 0 08/201209/25/2012 (PERCOCET) 5-325 MG per mouth every 4 hours tablet as needed for pain for 4 days. ibuprofen (ADVIL,MOTRIN) Take 3 tablets by 30 tablet 0 01/1110/05/2012 200 MG tablet mouth every 8 hours as needed for pain. methocarbamol (ROBAXIN) Take 1 tablet by 15 tablet 0 201110/05/2012 500 MG tablet mouth 4 times daily as needed. oxyCODONE-acetaminophen Take 1-2 tablets by 15 tablet 0 10/18/2012 (PERCOCET) 5-325 MG per mouth every 4 hours tablet as needed for pain. documented as of this encounter ED Notes Duc Villanueva MD - 09/21/2012 8:02 AM CST History Chief Complaint: Right ankle pain. HPI Conor Jaimes is a 36 year old male with no significant past medical history who presents to the Emergency Department by his significant other with complaints of right ankle pain. The patient reports that he suffered a fall down a flight of stairs yesterday evening while at his cousin's house, at which time his right ankle rolled laterally. He states that he has had persistent pain in the rightankle since that time, and reports that he has not been able to bear weight on the right lower extremity today. Here in the Emergency Department the patient rates his right ankle pain as a 10/10 in severity, and he states that it has been constant today. The patient notes that his pain is greatly exacerbated with any palpation or movement of the right ankle, and again he has not been able to bear weight since the time he sustained the injury. The patient denies any subsequent strength or sensation changes to the right lower extremity, and notes that he did not sustain any trauma to his head or any other injuries last evening. He also denies any pain in the right knee or hip. He mentions that he has used Ibuprofen at home without any subsequent relief in his discomfort. The patient denies any recent illnesses, and states that he has otherwise been healthy. Of note, the patient has had a fracture of the right ankle (fibula) in the past, which did not require surgery. He does not voice any additional concerns at this time. Allergies: Latex; unknown. Penicillin G; unknown Toradol; unknown. Medications: The patient reports taking Robaxin and Ibuprofen as needed. Past Medical History: The patient denies any significant past medical history. Past Surgical History: 1. Orthopedic surgery, non-specific. Family History: The patient does not provide any pertinent family history. Social History: The patient is single. He is here in the Emergency Department today with his significant other. He states that he has used tobacco in the past. The patient reports occasional alcohol use. He denies any illicit drug use. The patient is sexually active. Review of Systems Constitutional: Positive for mechanical fall. HENT: Negative for trauma to the head. Musculoskeletal: Positive for joint swelling (right ankle) and gait problem (unable to bear weight). Positive for right ankle pain. Positive for trauma to the right ankle. Negative for right knee or hip pain. Neurological: Negative for weakness and numbness. All other systems reviewed and are negative. Physical Exam First Vitals: BP: 120/81 mmHg Heart Rate: 89 Temp: 98.6 ??F (37 ??C) Resp: 18 SpO2: 100 % Physical Exam Constitutional: He is oriented to person, place, and time. Cardiovascular: 2+ DP and PT pulses to the bilateral lower extremities Musculoskeletal: He exhibits tenderness. Tenderness and swelling to the lateral malleolus of the right ankle. Range of motion limited secondary to pain. No proximal fibular or tibial tenderness. Neurological: He is oriented to person, place, and time. 5/5 strength to DF, PF, EHL and FHL motor functions. Sensation intact to light touch to the DP, SP, T, S, S sensory distributions, except patient notes decreased sensation to the dorsal mid foot and the lateral ankle. Skin: Skin is warm and dry. No rash noted. Emergency Department Course Imaging: XR Right Ankle G/E 3 Views: No evidence for acute fracture or dislocation. Preliminary Radiology Interpretation: Dr. Villanueva @ 0832. Interventions: Percocet, 5/325mg Tablet x 2, PO @ 0815 Emergency Department Course: 801 The patient's medical record was reviewed. The patient was seen and evaluated by myself, and the plan of care including diagnostic studies was discussed with the patient. The patient understands and is agreeable to this plan. 0857 Recheck. The patient continues to do well here in the Emergency Department. He was placed in anair splint and provided with crutches for assistance with ambulation. I have reviewed with the patient the plan of care and the results of the above studies, and all of his questions have been answered. He understands and is agreeable to this plan of care. He will be discharged to home in stable condition with a prescription for Percocet, as well as a care plan as detailed below. B/P: 118/70, T: 98.6, P: 74, R: 16. Impression & Plan Medical Decision Making: This is a very pleasant 36 year old male with history of previous non operative distal right fibularfracture who presented with lateral ankle pain and swelling after inversion injury. An X-ray shows no acute fracture. There is no evidence as above of neurovascular compromise, nor of compartment syndrome. There is no proximal fibular tenderness or knee pain. The patient was placed in an air splint and given Percocet with subsequent pain relief. The patient was provided crutches and a prescription for Percocet, with the plan for strict return precautions including for pain, swelling, numbness, or any other concerning symptoms, as well as follow-up with primary care in 3-5 days. Diagnosis: 1. Ankle sprain, right. Disposition: The patient was discharged to home in stable condition and improved with instructions as noted abovein the care of his significant other. With reasonable clinical confidence, I do not believe any emergency medical condition exists that requires further immediate medical attention, or that could be expected to place the patient's health in serious jeopardy. I, Amanda Hollingsworth, am serving as a scribe on 09/21/2012 at 8:02 AM to personally document the services performed by Dr. Villanueva based on my observations and the provider's statements to me. Amanda Hollingsworth 09/21/2012 [facility] EMERGENCY [facility]PARTMENT Duc Villanueva MD 09/21/12 2017 [employer] Holli Garzon, RN - 09/21/2012 7:55 AM CST Pt fell coming down the stairs yesterday- pain in right ankle Hx of breaking this ankle in the past [employer] documented in this encounter Plan of Treatment Not on filedocumented as of this encounter Procedures Procedure Name Priority Date/Time Associated Diagnosis Comme nts XR ANKLE RIGHT G/E STAT 09/21/2012 8:32 AM Res ults for this 3 VIEWS [employer] procedure are i n the results section. documented in this encounter Results Ankle XR, G/E 3 views, right (09/21/2012 8:32 AM [employer]) Anatomical Region Laterality Modality Left Ankle Right Other Specimen (Source) Anatomical Collection Method Collection Time Re ceived Time Location / / Volume Laterality 09/21/2012 8:32 AM [employer] Impressions 09/21/2012 10:36 AM [employer] IMPRESSION: Negative. MACK SWANSON MD Narrative 09/21/2012 10:36 AM [employer] ANKLE G/E 3 VIEW ??RIGHT* 09/21/2012 8:3 2 AM HISTORY: ??ankle injury, pain Procedure Note Mack Swanson MD - 09/21/2012Formatt ing of this note might be different from the original. ANKLE G/E 3 VIEW RIGHT* 09/21/2012 8:32 AM HISTORY: ankle injury, pain IMPRESSION IMPRESSION: Negative. MACK SWANSON MD Duc Villanueva MD IMG DIAGNOSTIC IMAGING ORDER TOYA documented in this encounter Visit Diagnoses Diagnosis Ankle sprain - Primary Sprain of ankle, unspecified site documented in this encounter Administered Medications Inactive Administered Medications - up to 3 most recent administrations Medication Order MAR Action Action Date Dose Rate Site oxyCODONE-acetaminophen Given 09/21/2012 8:07 AM [employer] 2 tablets (PERCOCET) 5-325 MG per tablet 2 tablet 2 tablet, Oral, ONCE, On Thu09/21/12 at 0815, For 1 dose documented in this encounter Active and Recently Administered Medications Times are shown in [employer]. Scheduled Medication Order 09/19/2012 09/20/2012 09/21/2012 oxyCODONE-acetaminophen (PERCOCET) 5-325 MG per tablet 2 tablet (COMPLETED) 0807 (Given - Provider: Christine Kelly RN) 2 tablet, Oral, ONCE, Thu09/21/12 at 0815, For 1 dose documented in this encounter Care Teams Wafer Machine Operator Relationship Specialty Start Date End Date No Ref-Primary, Physician PCP - General 02/08/12 12/21/13 documented as of this encounter
--- OUTSIDE RECORDS SUMMARY | 2022-08-19 07:04 | XMS_ITS | Encounter Summary ---
:1975 Author Organization [facility] Address [address] [place] [address] Care Team Providers Name Role Phone Unavailable Primary Care Provider Unavailable Reason for Visit Reason Comments Pharyngitis difficulty swallowing for 3 days Encounter Details Date Type Department Care Team Description 12/26/2011 [facility] gatica, Vannesa Beaver MD Pharyngitis Emergency Dept [facility] [address] [facility] [address] [place] [phone] [place] [address] [phone] (Wo rk) Social History Tobacco Use Types Packs/Day Years Used Date Smoking Tobacco: Former Smokeless Tobacco: Current Alcohol Use Standard Drinks/Week Comments Yes 0 (1 standard drink = 0.6 oz pure alcoho l) rare Sex Assigned at Date Recorded Not on file documented as of this encounter Last Filed Vital Signs Vital Sign Reading Time Taken Comments Blood Pressure 132/90 12/26/2011 7:05 AM CDT Pulse - - Temperature 37.1 ??C (98.8 ??F) 12/26/2011 5:24 AM CDT Respiratory Rate 18 12/26/2011 5:24 AM CDT Oxygen Saturation 100% 12/26/2011 7:05 AM CDT Inhaled Oxygen Concentration - - Weight 68 kg (150 lb) 12/26/2011 5:24 AM CDT Height 165.1 cm (5' 5) 12/26/2011 5:24 AM CDT Body Mass Index 24.96 12/26/2011 5:24 AM CDT documented in this encounter Discharge Instructions Discharge InstructionsVan Vannesa Hernandez MD - 12/26/2011 6:52 AM CDT Keflex antibiotic--start tomorrow Percocet for pain Return if worse or not better in 2-3 days Discharge Instructions Sore Throat You were seen today for a sore throat. Most sore throats are caused by a virus. Antibiotics do not help with viral infections, but you can fight off the virus on your own. In this case, your sore throat would be treated with medications for your pain and fever. Strep throat is a kind of sore throat caused by Group A streptococcus bacteria. This type of sore throat is treated with antibiotics. If you had a rapid test done today for strep throat and it did not show infection, we always do a culture. If the culture shows you have strep throat, we will call you and get you a prescription for antibiotics. Return to the Emergency Department if: If you have difficulty breathing If you are drooling because you are unable to swallow You become dehydrated due to difficulty drinking. Signs of dehydration include weakness, dry mouth,and urinating less than 3 times per day If you develop swelling of the neck or tongue If you develop a high fever with either headache or stiff neck Treatment: Pain relief -- Non-prescription pain medications, such as acetaminophen (Tylenol??) or ibuprofen (Motrin??, Advil??) are usually recommended for pain. Do not use a medicine that you are allergic to, or if your doctor has told you not to use it. If you have been given a narcotic (such as codeine, hydrocodone, or oxycodone) do not drive for four hours after you have taken it. If the narcotic contains acetaminophen (Tylenol??), do not take other acetaminophen (Tylenol??) with it. All narcotics will cause constipation, so eat a high fiber diet. If you have been placed on antibiotics, watch for signs of allergic reaction. These include rash, lip swelling, difficulty breathing, wheezing, and dizziness. If you develop any of these symptoms, stop the antibiotic immediately and go to an emergency room or urgent care for evaluation. Remember that you can always come back to the Emergency Department if you are not able to see your regular doctor in the amount of time listed above, if you get any new symptoms, or if there is anything that worries you. documented in this encounter Medications at Time of Discharge Medication Sig Dispensed Refills Start Date End Date cephALEXin (KEFLEX) 500 Take 1 capsule by 40 capsule 0 12/2501/05/2012 MG capsule mouth 4 times daily for 10 days. oxyCODONE-acetaminophen Take 1-2 tablets by 15 tablet 0 10/18/2012 (PERCOCET) 5-325 MG per mouth every 4 hours tablet as needed for pain. documented as of this encounter ED Notes Vannesa Connor MD - 12/26/2011 5:34 AM CDT History Chief Complaint: Pharyngitis HPI Conor Jaimes is a 36 year old male who presents with pharyngitis. He rates his pain as greater than a 10/10. The patient states three days ago he began having a sore throat, chills, and body aches. He notes he has not taken his temperature, but feels feverish. The patient states his throat has been so painful that he has not been able to sleep the last couple of nights. He has not been able toeat or drink per usual the last couple of days as well. He has been otherwise healthy without lightheadedness, dizziness, rash, headache,cough, nausea, vomiting, chest pain, shortness of breath, abdominal pain, diarrhea, constipation, or other significant physical symptoms. Allergies: Toradol Latex Penicillin Medications: The patient is currently on no regular medications. Past Medical History: No other significant past medical history or family history. Past Surgical History: Orthopedic surgery Family / Social History: No other significant past medical history or family history. Social History: Former smoker. Positive alcohol use. Review of Systems Constitutional: Positive for chills. Negative for fever. HENT: Positive for sore throat. Negative for facial swelling. Respiratory: Negative for shortness of breath. Cardiovascular: Negative for chest pain and leg swelling. Gastrointestinal: Negative for abdominal pain. Skin: Negative for rash. Neurological: Negative for weakness. All other systems reviewed and are negative. Physical Exam First Vitals: BP: 116/87 mmHg Heart Rate: 96 Temp: 98.8 ??F (37.1 ??C) Resp: 18 Height: 165.1 cm (5' 5) Weight: 68.04 kg (150 lb) SpO2: 97 % Physical Exam Constitutional: Pleasant and cooperative HENT: Head: Normocephalic and atraumatic. Remarkably swollen tonsils with whitish exudates. No trismus, voice change. Airway patent. TMs retracted bilaterally. Eyes: Conjunctivae are normal. Neck: Neck supple. Cardiovascular: Normal rate, regular rhythm and normal heart sounds. Pulmonary/Chest: Effort normal and breath sounds normal. Abdominal: Soft. Bowel sounds are normal. He exhibits no distension. No tenderness. He has no rebound and no guarding. Musculoskeletal: Normal range of motion. Neurological: He is alert. Skin: Skin is warm and dry. Psychiatric: He has a normal mood and affect. Emergency Department Course Laboratory: Rapid strep: Negative Mononucleosis screen: Negative Interventions: 0.9% Sodium Chloride IV solution 1000 mL Bolus Dilaudid 1 mg IV Decadron 10 mg IV Rocephin 1 g IV Emergency Department Course: The patient was seen and examined. Plan of care discussed. Rechecked the patient, findings and plan explained to the patient. Patient discharged home, status improved, with instructions regarding supportive care, medications, and reasons to return as well as the importance of close follow-up was reviewed. Impression & Plan Medical Decision Making: Conor Jaimes is a 36 year old male who presents today with severe pharyngitis. He has marked erythema, exudates and swelling. Though rapid strep is negative and [place] is negative with CBC that isnot suggestive of a false negative test I have treated him empirically for possible occult streptococcal or other bacterial infection. Similiarly I am treating him with decadron for symptomatic improvement as well as pain medication and IV fluids for rehydration. Diagnosis: 1. Pharyngitis PLAN: I will discharge the patient home on oral Keflex with Percocet as needed for pain, return of worse such as unable to take fluids, difficulty breathing, or other increased symptoms. Recheck if not improved within one to two days. Vannesa Connor MD 12/26/2011 [facility] EMERGENCY DEPARTMENT I, Deana Whitney, am serving as a scribe at 5:34 AM on 12/26/2011 to document services personally performed by Vannesa Connor MD, based on my observations and the provider's statements to me. Vannesa Connor MD 12/26/11 0701 Funmi Cabezas, DOMENIC - 12/26/2011 5:28 AM CDT Alert and oriented x 3 airway,breathing and circulation intact documented in this encounter Plan of Treatment Not on filedocumented as of this encounter Procedures Procedure Name Priority Date/Time Associated Comments Diagnosis CBC WITH PLATELETS & STAT 12/26/2011 6:00 AM R esults for this DIFFERENTIAL CDT procedure are i n the results section. MONONUCLEOSIS SCREEN STAT 12/26/2011 6:00 AM R esults for this CDT procedure are i n the results section. RAPID STREP SCREEN STAT 12/26/2011 5:30 AM Res ults for this THROAT SWAB CDT procedure are i n the results section. BETA HEMOLYTIC STREP Routine 12/26/2011 5:30 AM R esults for this GROUP A CULTURE CDT procedure ar e in the results section. documented in this encounter Results Mononucleosis screen (12/26/2011 6:00 AM CDT) [facility] Method Time Signature Mononucleosis Negative NEG [facility] LAB Specimen Anatomical Collection Method Collection Time Receive d Time (Source) Location / / Volume Laterality Blood specimen 12/26/2011 6:00 AM 012 6:18 (specimen) CDT AM CDT Vannesa Connor MD LAB - BLOOD ORDERABLES Performing Organization Address City/State/ZIP Code Phon e Number M [facility] [address] [place], [place] [address] [facility] (ABNORMAL) CBC + differential (12/26/2011 6:00 AM CDT) Patholo gist Method Time Signature WBC 7.9 4.0 - [facility] 11.0 [facility] 10e9/[facility] RBC Count 4.84 4.4 - 5.9 [place] 10e12/L [facility] Hemoglobin 15.4 13.3 - [place] 17.7 g/dL [facility] Hematocrit 44.1 40.0 - [place] 53.0 % [facility] MCV 91 78 - 100 [place] fl [facility] MCH 31.8 26.5 - [facility] 33.0 pg [facility] MCHC 34.9 31.5 - [place] 36.5 g/dL [facility] RDW 12.2 10.0 - [place] 15.0 % [facility] Platelet Count 195 150 - [address] LAB Diff Method Automated [facility] % Neutrophils 67.6 40 - 75 % [facility] % Lymphocytes 17.1 (L) 20 - 48 % [facility] % Monocytes 14.1 (H) 0 - 12 % [facility] % Eosinophils 0.5 0 - 6 % [facility] % Basophils 0.4 0 - 2 % [facility] % Immature 0.3 0 - 0.4 % [place] Granulocytes [facility] Absolute 5.4 1.6 - 8.3 [place] Neutrophil 10e9[facility] Absolute 1.4 0.8 - 5.3 [place] Lymphocytes 109[facility] Absolute 1.1 0.0 - 1.3 [place] Monocytes 10e9[facility] Absolute 0.0 0.0 - 0.7 [place] Eosinophils 10e9[facility] Absolute 0.0 0.0 - 0.2 [place] Basophils 10e9/[facility] Abs Immature 0.0 0 - 0.03 [place] Granulocytes 10e/[facility] Specimen Anatomical Collection Method Collection Time Receive d Time (Source) Location / / Volume Laterality Blood specimen 12/26/2011 6:00 AM 012 6:18 (specimen) CDT AM CDT Vannesa Connor MD LAB - BLOOD ORDERABLES Performing Organization Address City/State/ZIP Code Phon e Number M [facility] [address] [place] [address] [facility] Beta strep group A culture (12/26/2011 5:30 AM CDT) Component Value Ref Test Analysis Performed At [facility] Range Method Time Signature Specimen Throat [facility] LAB Culture Micro No beta [facility] Group A isolated Micro Report FINAL 12/28/2011 [facility] LAB Specimen Anatomical Collection Method Collection Time Receive d Time (Source) Location / / Volume Laterality 12/26/2011 5:30 AM 2 5:57 CDT AM CDT Vannesa Connor MD LAB - MICRO GENERAL ORDERABL ES Performing Organization Address City/State/ZIP Code Phon e Number M [facility] [address] [place] [address] [phone] [facility] Rapid strep screen (12/26/2011 5:30 AM CDT) Component Value Ref Test Analysis Performed At [facility] Method Time Signature Specimen Throat [facility] Rapid Strep A NEGATIVE: No Group A strepto coccal antigen detected by immunoassay, await [place] Screen culture report. [facility] Micro Report FINAL 12/26/2011 [facility] LAB Specimen Anatomical Collection Method Collection Time Receive d Time (Source) Location / / Volume Laterality Specimen from 12/26/2011 5:30 AM 12/26/19 12 5:39 throat CDT AM CDT (specimen) Desiree York MD LAB - MICRO GENERAL ORDERABL ES Performing Organization Address City/State/ZIP Code Phon e Number M [facility] [address] [place] [address] [facility] documented in this encounter Visit Diagnoses Diagnosis Pharyngitis Acute pharyngitis documented in this encounter Administered Medications Inactive Administered Medications - up to 3 most recent administrations Medication Order MAR Action Action Date Dose Rate Site cefTRIAXone (ROCEPHIN) 1 g vial to New Bag 12/26/2011 6:54 AM CDT 1 g mL/hr attach to IVPB STAT, 1 g, Intravenous, ONCE, On Thu12/26/11 at 0645, For 1 dose dexamethasone (DECADRON) injection 10 mg Given 12/26/2011 6:07 AM CDT 10 mg 10 mg, Intravenous, ONCE, On Thu12/26/11 at 0545, For 1 dose HYDROmorphone (DILAUDID) injection 1 mg Given 12/26/2011 6:06 AM CDT 1 mg 1 mg, Intravenous, ONCE, On Thu12/26/11 at 0545, For 1 dose HYDROmorphone (DILAUDID) injection 1 mg Given 12/26/2011 6:54 AM CDT 1 mg 1 mg, Intravenous, ONCE, On Thu12/26/11 at 0645, For 1 dose sodium chloride 0.9 % BOLUS New Bag 12/26/2011 6:07 AM CDT 1,000 m Ls 1000 mL/hr 1,000 mL Intravenous, 1,000 mL, ONCE, at 1,000 mL/hr, Administer over 1 Hours, On Thu12/26/11 at 0545, For 1 dose documented in this encounter Active and Recently Administered Medications Times are shown in CDT. Scheduled Medication Order 12/24/2011 12/25/2011 12/26/2011 cefTRIAXone (ROCEPHIN) 1 g vial to attach to IVPB (COMPLETED) 0654 (New Bag - Provider: Marilyn Cash RN)0705 (Stopped - Provider: Marilyn Cash RN) 1 g, Intravenous, ONCE, Thu12/26/11 at 0645, For 1 dose dexamethasone (DECADRON) injection 10 mg (COMPLETED) 06 (Given - Provider: Marilyn Cash RN) 10 mg, Intravenous, ONCE, Thu12/26/11 at 0545, For 1 dose HYDROmorphone (DILAUDID) injection 1 mg (COMPLETED) 0606 (Given - Provider: Marilyn Cash RN) 1 mg, Intravenous, ONCE, 1 dose, Thu12/26/11 at 0545 HYDROmorphone (DILAUDID) injection 1 mg (COMPLETED) 0654 (Given - Provider: Marilyn Cash RN) 1 mg, Intravenous, ONCE, 1 dose, Thu12/26/11 at 0645 sodium chloride 0.9 % BOLUS 1,000 mL (COMPLETED) 0607 (New Bag - Provider: Marilyn Cash RN)0655 (Stopped - Provider: Marilyn Cash RN) Intravenous, 1,000 mL, ONCE, at 1,000 mL /hr, for 1 Hours, Thu12/26/11 at 0545, For 1 dose documented in this encounter
--- OUTSIDE RECORDS SUMMARY | 2022-08-19 07:04 | XMS_ITS | Encounter Summary ---
:1975 Author Organization [facility] Address [address] [place] [address] Care Team Providers Name Role Phone No Ref-Primary, Physician Primary Care Provider [phone] Primary Fabiola Bertrand MD Primary Care Provider Unavailable Encounter Details Date Type Department Care Team Description 02/13/[place] [facility] [place] Vince Social History Tobacco Use Types Packs/Day Years Used Date Smoking Tobacco: Never Assessed Sex Assigned at Date Recorded Not on file documented as of this encounter Plan of Treatment Not on filedocumented as of this encounter Visit Diagnoses Not on filedocumented in this encounter Care Teams Seafood Specialist Relationship Specialty Start Date End Date No Ref-Primary, Physician PCP - General 02/08/12 12/21/13 Primary Fabiola Bertrand MD PCP - General 12/22/1305/14 documented as of this encounter
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
--- OUTSIDE RECORDS SUMMARY | 2022-08-19 07:04 | XMS_ITS | Encounter Summary ---
:1975 Author Organization [facility] Address [address] [place] [address] Care Team Providers Name Role Phone No Ref-Primary, Physician Primary Care Provider [phone] Reason for Visit Reason Comments Ankle Pain Encounter Details Date Type Department Care Team Description 09/27/2012 [facility] naz Rios MD Emergency Dept [facility] [address] [place] [address] [place] [address] [phone] (Wo rk) Social History Tobacco Use Types Packs/Day Years Used Date Smoking Tobacco: Every Day Smokeless Tobacco: Current Alcohol Use Standard Drinks/Week Comments Yes 0 (1 standard drink = 0.6 oz pure alcoho l) rare Sex Assigned at Date Recorded Not on file documented as of this encounter Last Filed Vital Signs Vital Sign Reading Time Taken Comments Blood Pressure 124/69 09/27/2012 12:51 PM CHERRY CUTTER Pulse - - Temperature 36.6 ??C (97.9 ??F) 09/27/2012 12:51 PM CHERRY CUTTER Respiratory Rate 16 09/27/2012 12:51 PM CHERRY CUTTER Oxygen Saturation 99% 09/27/2012 12:51 PM CHERRY CUTTER Inhaled Oxygen Concentration - - Weight - [...] documented as of this encounter ED Notes Nohelia Garza RN - 09/27/2012 12:53 PM CST Pt reports he had an xray here on that Thursday. RY CUTTER Nohelia Garza RN - 09/27/2012 12:52 PM CST In Triage: ABC's intact. Alert and oriented x 3. Sprained right ankle 1 week ago Thursday. RY CUTTER documented in this encounter Plan of Treatment Not on filedocumented as of this encounter Visit Diagnoses Not on filedocumented in this encounter Care Teams Canvass Manager Relationship Specialty Start Date End Date No Ref-Primary, Physician PCP - General 02/08/12 12/21/13 documented as of this encounter
--- OUTSIDE RECORDS SUMMARY | 2022-08-19 07:04 | XMS_ITS | Encounter Summary ---
:1975 Author Organization [facility] Address [address] [place] [id number] Care Team Providers Name Role Phone No Ref-Primary, Physician Primary Care Provider [phone] Primary Fabiola Bertrand MD Primary Care Provider Unavailable Encounter Details Date Type Department Care Team Description 03/09/2000 [facility] - [facility] Fan Bradley MD Social History Tobacco Use Types Packs/Day Years Used Date Smoking Tobacco: Never Assessed Sex Assigned at Date Recorded Not on file documented as of this encounter Plan of Treatment Not on filedocumented as of this encounter Visit Diagnoses Not on filedocumented in this encounter Care Teams Shearer Helper Relationship Specialty Start Date End Date No Ref-Primary, Physician PCP - General 02/08/12 12/21/13 Primary Fabiola Bertrand MD PCP - General 12/22/1305/14 documented as of this encounter
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
--- OUTSIDE RECORDS SUMMARY | 2022-08-19 07:04 | XMS_ITS | Encounter Summary ---
:1975 Author Organization [facility] Address [address] [place] [id number] Care Team Providers Name Role Phone No Ref-Primary, Physician Primary Care Provider [phone] Primary Fabiola Bertrand MD Primary Care Provider Unavailable Encounter Details Date Type Department Care Team Description 01/12/2000 [facility] [place] Provider, MD Vince Social History Tobacco Use Types Packs/Day Years Used Date Smoking Tobacco: Never Assessed Sex Assigned at Date Recorded Not on file documented as of this encounter Plan of Treatment Not on filedocumented as of this encounter Visit Diagnoses Not on filedocumented in this encounter Care Teams L D Rn Relationship Specialty Start Date End Date No Ref-Primary, Physician PCP - General 02/08/12 12/21/13 Primary Fabiola Bertrand MD PCP - General 12/22/1305/14 documented as of this encounter
--- OUTSIDE RECORDS SUMMARY | 2022-08-19 07:04 | XMS_ITS | Encounter Summary ---
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 PM HOT DIE PRESS FEEDER) Component Value Ref Test Analysis Performed At [facility] Range Method Time Signature Specimen Throat [facility] Rapid Strep A NEGATIVE: No Group A strepto coccal antigen detected by immunoassay, await [place] Screen culture report. [facility] Internal [facility] AB Micro Report FINAL 10/13/2012 [facility] Specimen Anatomical Collection Method Collection Time Receive d Time (Source) Location / / Volume Laterality Specimen from 10/13/2012 12:40 10/13/2012 1:17 throat PM HOT DIE PRESS FEEDER PM HOT DIE PRESS FEEDER (specimen) Marcy Hannah MD LAB - MICRO GENERAL ORDERABL ES Performing Organization Address City/[facility]/ZIP Code Phon e Number [facility] [address] [place] [address] [facility] Magnesium (10/12/2012 1:00 AM HOT DIE PRESS FEEDER) P athologist Signature Magnesium 2.1 1.6 - 2.3 [place] mg/dL [facility] Specimen Anatomical Collection Method Collection Time Receive d Time (Source) Location / / Volume Laterality Blood specimen 10/12/2012 1:00 AM 013 1:26 (specimen) HOT DIE PRESS FEEDER AM HOT DIE PRESS FEEDER Adan Milan MD LAB - BLOOD ORDERABLES Performing Organization Address City/State/ZIP Code Phon e Number [facility] [address] [place] [address] [facility] CBC with platelets (10/12/2012 1:00 AM HOT DIE PRESS FEEDER) [facility] Signature WBC 7.2 4.0 - 11.0 [place] 10e9/L [facility] RBC Count 4.58 4.4 - 5.9 [place] 10e12/L [facility] Hemoglobin 14.4 13.3 - [facility] 17.7 g/dL [facility] Hematocrit 41.8 40.0 - [facility] 53.0 % [facility] MCV 91 78 - 100 [place] fl [facility] MCH 31.4 26.5 - [facility] 33.0 pg [facility] MCHC 34.4 31.5 - [facility] 36.5 g/dL [facility] RDW 12.0 10.0 - [place] 15.0 % [facility] Platelet Count 215 150 - 450 [place] 10e9/L [facility] Specimen Anatomical Collection Method Collection Time Receive d Time (Source) Location / / Volume Laterality Blood specimen 10/12/2012 1:00 AM 013 1:26 (specimen) HOT DIE PRESS FEEDER AM HOT DIE PRESS FEEDER Adan Milan MD LAB - BLOOD ORDERABLES Performing Organization Address City/State/ZIP Code Phon e Number [facility] [address] [place] [address] [phone] [facility] (ABNORMAL) Basic metabolic panel (10/12/2012 1:00 AM HOT DIE PRESS FEEDER) [facility] Signature Sodium 139 133 - 144 [place] mmol/L [facility] Potassium 3.6 3.4 - 5.3 [place] mmol/L [facility] Chloride 101 94 - 109 [place] mmol/L [facility] Carbon Dioxide 29 20 - 32 [place] mmol/L [facility] Anion Gap 9 6 - 17 [place] mmol/L [facility] Glucose 112 (H) 60 - 99 [place] mg/dL [facility] Urea Nitrogen 13 5 - 24 [place] mg/dL [facility] Creatinine 0.82 0.66 - [place] 1.25 mg/dL [facility] GFR Estimate >90 >60 [place] mL/min/1.[address] LAB GFR Estimate If >90 >60 [place] Black mL/min/1.[address] LAB Calcium 8.9 8.5 - 10.4 [place] mg/dL [facility] Specimen Anatomical Collection Method Collection Time Receive d Time (Source) Location / / Volume Laterality Blood specimen 10/12/2012 1:00 AM 013 1:26 (specimen) HOT DIE PRESS FEEDER AM HOT DIE PRESS FEEDER Adan Milan MD LAB - BLOOD ORDERABLES Performing Organization Address City/State/ZIP Code Phon e Number [facility] [address] [address] [facility] Troponin I (10/12/2012 1:00 AM HOT DIE PRESS FEEDER) P athologist Signature Troponin I ES <0.012 0.000 - [place] 0.034 ug/L [facility] Specimen Anatomical Collection Method Collection Time Receive d Time (Source) Location / / Volume Laterality Blood specimen 10/12/2012 1:00 AM 013 1:26 (specimen) HOT DIE PRESS FEEDER AM HOT DIE PRESS FEEDER Adan Milan MD LAB - BLOOD ORDERABLES Performing Organization Address City/State/ZIP Code Phon e Number [facility] [address] [place] [address] [facility] EKG - HIM ECG Scan (10/12/2012) Narrative This result has an attachment that is no t available. Adan Milan MD ECG ORDERABLES (ABNORMAL) Routine UA with microscopic (10/07/2012 9:10 AM HOT DIE PRESS FEEDER) Patholo gist Method Time Signature Color Urine Yellow [facility] Appearance Urine Clear [facility] Glucose Urine Negative NEG mg/dL [facility] Bilirubin Urine Negative NEG [facility] Ketones Urine Negative NEG mg/dL [facility] Specific [place] 1.017 1.003 - [place] Urine 1.035 [facility] Blood Urine Negative NEG [facility] pH Urine 5.0 5.0 - 7.0 [place] pH [facility] Protein Albumin Negative NEG mg/dL [place] Urine [facility] Urobilinogen Normal 0.0 - 2.0 [place] mg/dL mg/dL [facility] Nitrite Urine Negative NEG [facility] Leukocyte Trace (A) NEG [place] Esterase Urine [facility] Source Midstream [place] Urine [facility] WBC Urine 1 0 - 2 [facility] RBC Urine <1 0 - 2 [facility] Mucous Urine Present (A) NEG /LPF [facility] Specimen Anatomical Collection Method Collection Time Receive d Time (Source) Location / / Volume Laterality Urine specimen URINE SPECIMEN 10/07/2012 9:10 AM 10/07 9:19 (specimen) OBTAINED BY CLEAN HOT DIE PRESS FEEDER AM HOT DIE PRESS FEEDER CATCH PROCEDURE / Unknown Jg Randall MD LAB - URINE ORDERABLES Performing Organization Address City/State/ZIP Code Phon e Number [facility] [address] [address] [phone] [facility] TSH with free T4 reflex and/or T3 as indicated (10/06/2012 7:41 AM HOT DIE PRESS FEEDER) athologist Signature TSH 1.06 0.4 - 5.0 [place] mU/L [facility] Specimen Anatomical Collection Method Collection Time Receive d Time (Source) Location / / Volume Laterality Blood specimen 10/06/2012 7:41 AM 012 7:49 (specimen) HOT DIE PRESS FEEDER AM HOT DIE PRESS FEEDER Jg Randall MD LAB - BLOOD ORDERABLES Performing Organization Address City/State/ZIP Code Phon e Number [facility] [address] [address] [phone] [facility] (ABNORMAL) Basic metabolic panel (10/06/2012 7:41 AM HOT DIE PRESS FEEDER) athologist Signature Sodium 138 133 - 144 [place] mmol/L [facility] Potassium 4.6 3.4 - 5.3 [place] mmol/L [facility] Chloride 99 94 - 109 [place] mmol/L [facility] Carbon Dioxide 27 20 - 32 [place] mmol/L [facility] Anion Gap 12 6 - 17 [place] mmol/L [facility] Glucose 113 (H) 60 - 99 [place] mg/dL [facility] Urea Nitrogen 14 5 - 24 [place] mg/dL [facility] Creatinine 0.84 0.66 - [place] 1.25 mg/dL [facility] GFR Estimate >90 >60 [place] mL/min/1.[address] LAB GFR Estimate If >90 >60 [place] Black mL/min/1.[address] LAB Calcium 10.1 8.5 - 10.4 [place] mg/dL [facility] Specimen Anatomical Collection Method Collection Time Receive d Time (Source) Location / / Volume Laterality Blood specimen 10/06/2012 7:41 AM 012 7:49 (specimen) HOT DIE PRESS FEEDER AM HOT DIE PRESS FEEDER Jg Randall MD LAB - BLOOD ORDERABLES Performing Organization Address City/State/ZIP Code Phon e Number [facility] [address] [place] [address] [facility] CBC with platelets (10/06/2012 7:41 AM HOT DIE PRESS FEEDER) P athologist Signature WBC 9.9 4.0 - 11.0 [place] 10e9/L [facility] RBC Count 5.09 4.4 - 5.9 [place] 10e12/L [facility] Hemoglobin 16.2 13.3 - [facility] 17.7 g/dL [facility] Hematocrit 46.1 40.0 - [place] 53.0 % [facility] MCV 91 78 - 100 [place] fl [facility] MCH 31.8 26.5 - [facility] 33.0 pg [facility] MCHC 35.1 31.5 - [facility] 36.5 g/dL [facility] RDW 12.1 10.0 - [facility] 15.0 % [facility] Platelet Count 252 150 - 450 [place] 10e9/L [facility] Specimen Anatomical Collection Method Collection Time Receive d Time (Source) Location / / Volume Laterality Blood specimen 10/06/2012 7:41 AM 012 7:49 (specimen) HOT DIE PRESS FEEDER AM HOT DIE PRESS FEEDER Jg Randall MD LAB - BLOOD ORDERABLES Performing Organization Address City/State/ZIP Code Phon e Number [facility] [address] [address] [facility] Alcohol breath test POCT (10/05/2012 4:14 PM HOT DIE PRESS FEEDER) P athologist Signature Alcohol Breath 0.000 0.00 - 0.01 [facility] Test Specimen (Source) Anatomical Location Collection Method / Collectio n Time Received Time / Laterality Volume Exhaled air (substance) Los Maldonado MD LAB - ENTER/EDIT POCT Performing Organization Address [facility]/ZIP [facility] [place] [facility] urine (10/05/2012 3:50 PM HOT DIE PRESS FEEDER) Component Value Ref Test Analysis Performed Pathologis t Range Method Time At Signature Amphetamine Qual Negative NEG [place] Urine Cutoff for a negative amphetamine is 500 ng/mL or less. [facility] Barbiturates Qual Negative NEG [place] Urine Cutoff for a negative barbiturate is 200 ng/mL or less. [facility] Benzodiazepine Negative NEG [place] Qual Urine Cutoff for a negative benzodiazepine is 200 ng/mL or less . [facility] Cannabinoids Qual Negative NEG [place] Urine Cutoff for a negative cannabinoid is 50 ng/mL or less. [facility] Cocaine Qual Negative NEG [place] Urine Cutoff for a negative cocaine is 300 ng/mL or less. [facility] Opiates Negative NEG [place] Qualitative Urine Cutoff for a negative opiate is 300 ng/mL or less. [facility] PCP Qual Urine Negative NEG [place] Cutoff for a negative PCP is 25 ng/mL or less. [facility] Specimen Anatomical Collection Method Collection Time Receive d Time (Source) Location / / Volume Laterality Urine specimen URINE SPECIMEN 10/05/2012 3:50 PM 10/05 4:38 (specimen) OBTAINED BY CLEAN HOT DIE PRESS FEEDER PM HOT DIE PRESS FEEDER CATCH PROCEDURE / Unknown Los Maldonado MD LAB - URINE ORDERABLES Performing Organization Address City/[facility]/ZIP Code Phon e Number [facility] [address] [phone] [facility] documented in this encounter Visit Diagnoses Diagnosis Depression - Primary Depressive disorder, not elsewhere class ified Migraine Migraine, unspecified, without mention o f intractable migraine without mention of status migrainosus Anxiety Anxiety state, unspecified Depression, major Major depressive disorder, single episod e, unspecified documented in this encounter Administered Medications Inactive Administered Medications - up to 3 most recent administrations Medication Order MAR Action Action Date Dose Rate Site atomoxetine (STRATTERA) capsule 10 Given 10/14/2012 8:42 PM HOT DIE PRESS FEEDER 10 mg mg 10 mg, Oral, EVERY EVENING, First dose on Thu10/08/12 at 1999 Given 10/13/2012 8:36 PM HOT DIE PRESS FEEDER 10 mg Given 10/12/2012 8:03 PM HOT DIE PRESS FEEDER 10 mg atomoxetine (STRATTERA) capsule 18 mg Given 10/16/2012 8:17 PM HOT DIE PRESS FEEDER 18 mg 18 mg, Oral, EVERY EVENING, First dose (after last modification) on Thu10/15/12 at 1999 Given 10/15/2012 7:11 PM HOT DIE PRESS FEEDER 18 mg dexamethasone (DECADRON) injection 10 mg Given 10/05/2012 4:13 PM HOT DIE PRESS FEEDER 10 mg 10 mg, Intravenous, ONCE, On Thu10/05/12 at 1545, For 1 dose diphenhydrAMINE (BENADRYL) injection 50 mg Given 10/05/2012 4:13 PM HOT DIE PRESS FEEDER 50 mg 50 mg, Intravenous, ONCE, On Thu10/05/12 at 1545, For 1 dose droperidol (INAPSINE) injection 1.25 mg Given 10/05/2012 4:13 PM HOT DIE PRESS FEEDER 1.25 mg 1.25 mg, Intravenous, ONCE, On Thu10/05/12 at 1545, For 1 dose, If dose >1.25mg the patient needs a baseline EKG to r/o prolonged QT interval. Do not use drug if QT >440 for males or >450 for females. youth nutritional monitor is required for 3 hours after a dose >1.25mg. haloperidol (HALDOL) tablet 2-6 mg Given 10/13/2012 12:57 PM HOT DIE PRESS FEEDER 6 mg 2-6 mg, Oral, EVERY 4 HOURS PRN, agitation, Starting on Thu10/05/12 at 2131 Given 10/10/2012 1:00 PM HOT DIE PRESS FEEDER 6 mg Given 10/09/2012 8:10 PM HOT DIE PRESS FEEDER 2 mg hydrOXYzine (ATARAX) tablet 25-50 mg Given 10/17/2012 5:20 PM HOT DIE PRESS FEEDER 50 mg 25-50 mg, Oral, EVERY 6 HOURS PRN, anxiety, Starting on Thu10/05/12 at 2101 Given 10/13/2012 5:25 PM HOT DIE PRESS FEEDER 50 mg Given 10/12/2012 8:27 PM HOT DIE PRESS FEEDER 50 mg ibuprofen (ADVIL,MOTRIN) tablet 800 mg Given 10/15/2012 2:48 PM HOT DIE PRESS FEEDER 800 mg 800 mg, Oral, EVERY 6 HOURS PRN, moderate pain, Starting on Thu10/05/12 at 2123 Given 10/12/2012 1:08 PM HOT DIE PRESS FEEDER 800 mg Given 10/07/2012 3:43 PM HOT DIE PRESS FEEDER 800 mg Magic Mouthwash (FV std formula) lidocaine Given 10/13/2012 9:30 PM HOT DIE PRESS FEEDER 10 mLs visc 2% 2.5mL/5mL & maalox/mylanta w/ simeth 2.5mL/5mL & diphenhydrAMINE 5mg/5mL 10 mL, Swish & Swallow, EVERY 6 HOURS PRN, mouth sores, Starting on Thu10/13/12 at 1202, Shake well. Given 10/13/2012 1:15 PM HOT DIE PRESS FEEDER 10 mLs mirtazapine (REMERON) tablet 15 mg Given 10/07/2012 9:35 PM HOT DIE PRESS FEEDER 15 mg 15 mg, Oral, AT BEDTIME, First dose on Thu10/06/12 at 2200 Given 10/06/2012 9:25 PM HOT DIE PRESS FEEDER 15 mg mirtazapine (REMERON) tablet 30 mg Given 10/18/2012 10:08 PM HOT DIE PRESS FEEDER 30 mg 30 mg, Oral, AT BEDTIME, First dose (after last modification) on Thu10/08/12 at 2200 Given 10/17/2012 9:34 PM HOT DIE PRESS FEEDER 30 mg Given 10/16/2012 9:07 PM HOT DIE PRESS FEEDER 30 mg nicotine polacrilex (NICORETTE) gum 2-4 mg Given 10/19/2012 7:10 AM HOT DIE PRESS FEEDER 4 mg 2-4 mg, Buccal, EVERY 1 HOUR PRN, smoking cessation, Starting on Thu10/05/12 at 2207, Gum should be chewed slowly until it tingles, then placed between cheek and gum: when tingle gone, repeat process until tingle gone (about 30 minutes). Given 10/18/2012 9:35 PM HOT DIE PRESS FEEDER 4 mg Given 10/18/2012 3:55 PM HOT DIE PRESS FEEDER 4 mg oxyCODONE-acetaminophen (PERCOCET) 5-325 Given 10/06/2012 4: 06 AM HOT DIE PRESS FEEDER 2 tablets MG per tablet 1-2 tablet 1-2 tablet, Oral, EVERY 6 HOURS PRN, moderate to severe pain, Starting on Thu10/05/12 at 2132, For 12 hours, times12 hrs. Address 10/06/2012 Given 10/05/2012 10:10 PM HOT DIE PRESS FEEDER 2 tablets phenol-menthol (CEPASTAT) lozenge 1-2 Given 10/15/2012 6:[address] 2 lozenges lozenge 1-2 lozenge, Buccal, EVERY 1 HOUR PRN, other, dry/sore throat without fever , Starting on Thu10/12/12 at 1250 Given 10/14/2012 4:27 PM HOT DIE PRESS FEEDER 2 lozenges Given 10/14/2012 2:00 PM HOT DIE PRESS FEEDER 2 lozenges QUEtiapine (SEROquel XR) 24 hr tablet 15 0 mg Given 10/08/2012 6:00 PM HOT DIE PRESS FEEDER 150 mg 150 mg, Oral, DAILY, First dose (after last modification) on Thu10/08/12 at 1800 QUEtiapine (SEROquel XR) 24 hr tablet 30 0 mg Given 10/18/2012 5:17 PM HOT DIE PRESS FEEDER 300 mg 300 mg, Oral, DAILY, First dose (after last modification) on Thu10/09/12 at 1800 Given 10/17/2012 4:47 PM HOT DIE PRESS FEEDER 300 mg Given 10/16/2012 5:42 PM HOT DIE PRESS FEEDER 300 mg QUEtiapine (SEROquel XR) 24 hr tablet 50 mg Given 10/07/2012 5:58 PM HOT DIE PRESS FEEDER 50 mg 50 mg, Oral, DAILY, First dose on Thu10/06/12 at 1800 Given 10/06/2012 5:48 PM HOT DIE PRESS FEEDER 50 mg QUEtiapine (SEROquel) tablet 25-50 mg Given 10/19/2012 7:10 AM HOT DIE PRESS FEEDER 50 mg 25-50 mg, Oral, EVERY 4 HOURS PRN, anxiety, Starting on Thu10/05/12 at 2125 Given 10/18/2012 3:55 PM HOT DIE PRESS FEEDER 50 mg Given 10/18/2012 12:41 PM HOT DIE PRESS FEEDER 50 mg SUMAtriptan (IMITREX) injection 6 mg Given 10/07/2012 10:38 AM HOT DIE PRESS FEEDER 6 mg Left Arm 6 mg, Subcutaneous, ONCE, On Sera 10/07/12 at 0945, For 1 dose, May repeat dose in 2 hours if no relief. Do not exceed 2 doses in 24 hours. SUMAtriptan (IMITREX) injection 6 mg Given 10/18/2012 10:09 PM HOT DIE PRESS FEEDER 6 mg 6 mg, Subcutaneous, 2 TIMES DAILY PRN, Starting on Thu10/08/12 at 1156, Give one dose for migraine, may repeat dose in 2 hours if no relief. Do not exceed 2 doses in 24 hours. Given 10/17/2012 6:22 PM HOT DIE PRESS FEEDER 6 mg Given 10/11/2012 4:04 PM HOT DIE PRESS FEEDER 6 mg traZODone (DESYREL) tablet 50 mg Given 10/11/2012 10:11 PM HOT DIE PRESS FEEDER 50 mg 50 mg, Oral, AT BEDTIME PRN, sleep, Starting on Thu10/05/12 at 2055, May repeat x 1 documented in this encounter Active and Recently Administered Medications Times are shown in HOT DIE PRESS FEEDER. Scheduled Medication Order 10/17/2012 10/18/2012 10/19/2012 mirtazapine (REMERON) tablet 30 mg 2134 (Given - Provi maurizio: Dorothea Callejas RN) 2208 (Given - Provider: Dorothea Callejas RN) 30 mg, Oral, AT BEDTIME, First dose on Thu10/08/12 at 2200 QUEtiapine (SEROquel XR) 24 hr tablet 300 mg 1647 (Giv en - Provider: Dorothea Callejas RN)1800 (Canceled Entry - Provider: Dorothea Callejas RN) 1717 (Given - Provider: Dorothea Callejas RN) 300 mg, Oral, DAILY, First dose on Thu10/09/12 at 1800 PRN Medication Order 10/17/2012 10/18/2012 10/19/2012 hydrOXYzine (ATARAX) tablet 25-50 mg 1720 (Given - Pro vider: Dorothea Callejas RN) 25-50 mg, Oral, EVERY 6 HOURS PRN, anxiety, Starting Thu1 2 at 2101 nicotine polacrilex (NICORETTE) gum 2-4 mg (CANCELED) 0920 (Given - Provider: Juliette Lr RN)1049 (Given - Provider: Verna Landers RN)1356 (Given - Provider: Juliette Lr RN)1501 (Given - Provider: Juliette Lr RN)1744 (Given - Provider: Dorothea Callejas RN) 0741 (Given - Provider: Brenna Oakley, DOMENIC)0905 (Given - Provider: Elvira Oakes RN)1132 (Given - Provider: Elvira Oakes, DOMENIC)1240 (Given - Provider: Elvira Oakes RN) 0710 (Given - Provider: Vadim Amaya) 2-4 mg, Buccal, EVERY 1 HOUR PRN, smokin g cessation, Starting e 10/05/12 at 2207, Gum should be chewed slowly until it tingles, then placed between cheek and gum: when tingle gone, repeat process until tingle gone (about 30 minutes). 1912 (Given - Provider: Dorothea Callejas RN)2139 (Given - Provider: Dorothea Callejas RN) 1555 (Given - Provider: Dorothea arreola RN)2135 (Given - Provider: Dorothea Callejas RN) QUEtiapine (SEROquel) tablet 25-50 mg 0814 (Given - Pr ovider: Juliette Lr RN)1208 (Given - Provider: Juliette Lr RN) 0741 (Given - Provider: Brenna Oakley, DOMENIC)1241 (Given - Provider: Elvira Oakes RN)1555 (Given - Provider: Dorothea Callejas RN) 0710 (Given - Provider: Vadim Amaya) 25-50 mg, Oral, EVERY 4 HOURS PRN, anxiety, Starting Tue 2 at 2125 SUMAtriptan (IMITREX) injection 6 mg (CANCELED) 1822 ( Given - Provider: Dorothea Callejas, DOMENIC) 4845 (Given - Provider: Dorothea Callejas, DOMENIC) 6 mg, Subcutaneous, 2 TIMES DAILY PRN, S tarting Thu10/08/12 at 1156, Give one dose for migraine, may repeat dose in 2 hours if no relief. Do not exceed 2 doses in 24 hours. documented in this encounter Care Teams Communications Programmer Relationship Specialty Start Date End Date No Ref-Primary, Physician PCP - General 02/08/12 12/21/13 documented as of this encounter
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
--- OUTSIDE RECORDS SUMMARY | 2022-08-19 07:04 | XMS_ITS | Encounter Summary ---
:1975 Author Organization [facility] Address [address] [place] [id number] Care Team Providers Name Role Phone No Ref-Primary, Physician Primary Care Provider [phone] Reason for Visit Reason Comments Flank Pain right flank pain. Encounter Details Date Type Department Care Team Description 02/08/2012 [facility] Nicanor Brunson MD Acute back pain Emergency Dept [facility] [address] [facility] [address] [place], [place] [id number] [phone] Social History Tobacco Use Types Packs/Day Years Used Date Smoking Tobacco: Former Smokeless Tobacco: Current Alcohol Use Standard Drinks/Week Comments Yes 0 (1 standard drink = 0.6 oz pure alcoho l) rare Sex Assigned at Date Recorded Not on file documented as of this encounter Last Filed Vital Signs Vital Sign Reading Time Taken Comments Blood Pressure 128/83 02/08/2012 3:01 PM CDT Pulse 84 02/08/2012 1:15 PM CDT Temperature 36.9 ??C (98.4 ??F) 02/08/2012 3:01 PM CDT Respiratory Rate 20 02/08/2012 3:01 PM CDT Oxygen Saturation 100% 02/08/2012 3:01 PM CDT Inhaled Oxygen Concentration - - Weight 68 kg (150 lb) 02/08/2012 12:58 PM CDT Height 162.6 cm (5' 4) 02/08/2012 12:58 PM CDT Body Mass Index 25.75 02/08/2012 12:58 PM CDT documented in this encounter Discharge Instructions Discharge InstructionsNicanor Brunson MD - 02/08/2012 2:57 PM CDT Discharge Instructions Back Pain You were seen today for back pain. Back pain can have many causes, but most will get better without surgery or other specific treatment. Sometimes there is a herniated (???slipped?? ) disc. We don???t usually do MRI scans to look for these right away, since most herniated discs will get better on their own with time. Today, we did not find any evidence that your back pain was caused by a serious condition, such as an infection, fracture, or tumor. However, sometimes symptoms develop over time and cannot be found during an emergency visit, so it is very important that you follow up with your primarydoctor. Return to the Emergency Department if: You develop a fever with your back pain. You have weakness or change in sensation in one or both legs. You lose control of your bowels or bladder, or can???t empty your bladder. Your pain gets much worse. Follow-up with your doctor: Unless your pain has completely gone away, please make an appointment with your doctor within one week. You may need further management of your back pain, such as more pain medication, imaging such asan X-ray or MRI, or physical therapy. What can I do to help myself? Remain active -- People are often afraid that they will hurt their back further or delay recovery by remaining active, but this is one of the best things you can do for your back. In fact, prolonged bed rest is not recommended. Studies have shown [...] as you can be burned. Pain medications -- Take a pain medication such as, acetaminophen (Tylenol??), ibuprofen (Advil??, Nuprin ??) or naproxen (Aleve??). If you have been given a narcotic (such as codeine, hydrocodone, oroxycodone) or a muscle relaxant (such as Flexeril ?? or Soma ??), do not drive for four hours after you have taken it. If the narcotic contains acetaminophen (Tylenol), do not take Tylenol with it. Allnarcotics will cause constipation, so eat a high fiber diet. Remember that you can always come back to the Emergency Department if you are not able to see your regular doctor in the amount of time listed above, if you get any new symptoms, or if there is anything that worries you. documented in this encounter Medications at Time of Discharge Medication Sig Dispensed Refills Start Date End Date ibuprofen (ADVIL,MOTRIN) Take 3 tablets by 30 [...] documented as of this encounter ED Notes Payal Jordan - 02/08/2012 2:12 PM CDT When giving pt pain medication he requested to have his side rail down, bed was slightly elevated, upon lowering bed which always causes a bit of a jolt as it hits the lowest part, pt did NOT respond to this at all with any sort of increased pain. Additionally pt refuses to keep bp cuff and SpO2 on. Payal Jordan - 02/08/2012 2:04 PM CDT Pt continues to complain of pain unrelieved by dilaudid; will inform MD when he is available. Payal Jordan - 02/08/2012 1:15 PM CDT Labs drawn with IV insertion and held Nicanor Brunson MD - 02/08/2012 1:14 PM CDT History Chief Complaint: Flank Pain HPI Conor Jaimes is a 36 year old male who presents with flank pain. The patient states he started having pain two days ago in his back that he says it is in his kidneys. he reports this pain is similar to previous times when he has had kidney stones. He says the pain is slightly worse on his right side and does not radiate anywhere and that it is much worse when he is moving at all. He says that when he gets up the pain is so bad that it takes his breath away. He says he took ibuprofen this morning around 0800 and that this did not do anything for the pain. The patient notes his back also hurts when he tries to urinate and that his urine is very dark. The patient denies fever, chills, nausea, vomiting, dysuria, hematuria, changes in bowel habits, any trauma, cough, recent illness, abdominalpain, or any other pain. Allergies: Toradol (hives) Latex Penicillin G Medications: The patient is not currently on any daily medications. Past Medical History: History of kidney stones. Past Surgical History: Orthopedic surgery Family / Social History: No past pertinent family history. Marital Status: Single [1] Social History: Former smoker Positive for alcohol use (rare) Patient works at [employer]. Review of Systems Constitutional: Negative for fever and chills. Respiratory: Negative for cough. Gastrointestinal: Negative for nausea, vomiting, diarrhea and blood in stool. Genitourinary: Positive for flank pain. Negative for dysuria and hematuria. Musculoskeletal: Positive for back pain. All other systems reviewed and are negative. Physical Exam First Vitals: BP: 122/90 mmHg Pulse: 90 Temp: 97.2 ??F (36.2 ??C) Resp: 18 Height: 162.6 cm (5' 4) Weight: 68.04 kg (150 lb) SpO2: 98 % Physical Exam Constitutional: He is oriented to person, place, and time. No distress. HENT: Head: Atraumatic. Right Ear: External ear normal. Left Ear: External ear normal. Nose: Nose normal. Mouth/Throat: Oropharynx is clear and moist. Eyes: Conjunctivae and EOM are normal. Pupils are equal, round, and reactive to light. Right eye exhibits no discharge. Left eye exhibits no discharge. No scleral icterus. Neck: Normal range of motion. Neck supple. No thyromegaly present. Cardiovascular: Normal rate, regular rhythm, normal heart sounds and intact distal pulses. No murmur heard. Pulmonary/Chest: Effort normal and breath sounds normal. No stridor. No respiratory distress. He hasno wheezes. He has no rales. He exhibits no tenderness. Abdominal: Soft. Bowel sounds are normal. He exhibits no distension and no mass. No tenderness. He has no rebound and no guarding. Musculoskeletal: Normal range of motion. He exhibits no edema. Somewhat tender in the right CVA angle. Lymphadenopathy: He has no cervical adenopathy. Neurological: He is alert and oriented to person, place, and time. He has normal reflexes. No cranial nerve deficit. Coordination normal. No focal motor or sensory changes present. Skin: Skin is warm and dry. He is not diaphoretic. Psychiatric: He has a normal mood and affect. His behavior is normal. Judgment and thought content normal. Emergency Department Course Imaging: CT abd/pelvis: Normal noncontrast CT scan of the abdomen and pelvis. No evidence of hydronephrosis or nephrolithiasis per radiology. Laboratory: UA: negative BMP: WNL (creatinine 0.87) CBC: WNL (WBC 6.8, HGB 14.8, PLT 235) Interventions: NS 2 L IV Dilaudid 1 mg IV Zofran 4 mg IV Tamsulosin 0.4 mg PO Dilaudid 0.4 mg IV Emergency Department Course: IV inserted and blood drawn. The patient was placed on continuous cardiac monitoring and pulse oximetry. The patient was examined here in the Emergency Department by myself, findings above. The patient was sent for a CT abd/pelvis while in the emergency department, findings above. Discussed the results with the patient and discussed the plan of care. Rechecked the patient, findings and plan explained to the patient. Patient discharged home, status improved, with instructions regarding supportive care, medications, and reasons to return as well as the importance of close follow-up was reviewed. Impression & Plan Medical Decision Making: This patient did not have a kidney stone. His CT was normal. His pain further more was positional innature, worse with movement, worse with transferring, and palpably tender over the right paralumbar region. I think the patient's worse pain is with spasm when he moves and changes position. I am going to have him start robaxin as directed, continue to use ibuprofen and ice this area, activity as tolerated. We are going to give him a PCP to follow up with tomorrow or the next day for reevaluation. If he develops new or worsening symptoms he should return to the ED. Diagnosis: 1. 724.5AZ Acute musculoskeletal strain with acute spasm. I, Rojas Hill, am serving as a scribe on 02/08/2012 at 1:14 PM to personally document services performed by Dr. Brunson based on my observations and the provider's statements to me. Rojas Hill 02/08/2012 [facility] EMERGENCY DEPARTMENT Nicanor Brunson MD 02/08/12 1920 documented in this encounter Plan of Treatment Not on filedocumented as of this encounter Procedures Procedure Name Priority Date/Time Associated Comments Diagnosis CT ABDOMEN PELVIS W/O STAT 02/08/2012 2:05 PM Results for this CONTRAST CDT procedure are i n the results section. CBC WITH PLATELETS & STAT 02/08/2012 1:15 PM R esults for this DIFFERENTIAL CDT procedure are i n the results section. BASIC METABOLIC PANEL STAT 02/08/2012 1:15 PM Results for this CDT procedure are i n the results section. ROUTINE UA WITH STAT 02/08/2012 1:00 PM Result s for this MICROSCOPIC CDT procedure are i n the results section. documented in this encounter Results CT Abdomen pelvis w/o contrast (02/08/2012 2:05 PM CDT) Anatomical Region Laterality Modality Abdomen/Pelvis, SUBRAD CT BODY, UMP CT ABDOMEN PELVIS Computed Tomography Specimen (Source) Anatomical Collection Method Collection Time Re ceived Time Location / / Volume Laterality 02/08/2012 2:05 PM CDT Impressions 02/08/2012 2:[address] ABDOMEN/PELVIS W/O CONT* Feb 08, 2012 2:05:00 PM HISTORY: Flank pain. TECHNIQUE: CT imaging of the abdomen and pelvis is performed without IV contrast. Abdominal organs, pelvic organs, bowel, aorta, retroperitoneum, and abdominal wall are also assessed to the limits of no IV contrast. Pelvic anatomy is also assessed to the l imits of no IV contrast. COMPARISON: ??None. FINDINGS: The liver, gallbladder, pancre as, spleen, and adrenals are unremarkable on this noncontrast examina tion. No ascites. The kidneys are normal bilaterally. No h ydronephrosis. No nephrolithiasis. The bladder is distende d with thin hargrove. No free fluid in the pelvis. The bowel is grossly unremarkable. No ev idence of obstruction. No abdominal or pelvic lymphadenopathy is a ppreciated. IMPRESSION: ??Normal noncontrast CT scan of the abdomen and pelvis. No evidence of hydronephrosis or nephrolith iasis. Nicanor Brunson MD IMG CT ORDERABLES Basic metabolic panel (02/08/2012 1:15 PM CDT) athologist Signature Sodium 143 133 - 144 [place] mmol/L [facility] Potassium 3.7 3.4 - 5.3 [place] mmol/L [facility] Chloride 104 94 - 109 [place] mmol/L [facility] Carbon Dioxide 28 20 - 32 [facility] mmol/L [facility] Anion Gap 11 6 - 17 [place] mmol/L [facility] Glucose 85 60 - 99 [place] mg/dL [facility] Urea Nitrogen 14 5 - 24 [place] mg/dL [facility] Creatinine 0.87 0.66 - [place] 1.25 mg/dL [facility] GFR Estimate >90 >60 [place] mL/min/1.[address] LAB GFR Estimate If >90 >60 [place] Black mL/min/1.[address] LAB Calcium 9.1 8.5 - 10.4 [place] mg/dL [facility] Specimen Anatomical Collection Method Collection Time Receive d Time (Source) Location / / Volume Laterality Blood specimen 02/08/2012 1:15 PM 012 1:37 (specimen) CDT PM CDT Nicanor Brunson MD LAB - BLOOD ORDERABLES Performing Organization Address City/State/ZIP Code Phon e Number M [facility] [address] [place], [place] [address] [facility] CBC with platelets differential (02/08/2012 1:15 PM CDT) [facility] gist Method Time Signature WBC 6.8 4.0 - [place] 11.0 [facility] 10e9[facility] RBC Count 4.63 4.4 - 5.9 [place] 10e12/L [facility] Hemoglobin 14.8 13.3 - [place] 17.7 g/dL [facility] Hematocrit 42.6 40.0 - [place] 53.0 % [facility] MCV 92 78 - 100 [place] fl [facility] MCH 32.0 26.5 - [place] 33.0 pg [facility] MCHC 34.7 31.5 - [place] 36.5 g/dL [facility] RDW 12.8 10.0 - [place] 15.0 % [facility] Platelet Count 235 150 - 450 [place] 10e9[facility] Diff Method Automated [facility] % Neutrophils 67.1 40 - 75 % [facility] % Lymphocytes 25.8 20 - 48 % [facility] % Monocytes 6.6 0 - 12 % [facility] % Eosinophils 0.1 0 - 6 % [facility] % Basophils 0.3 0 - 2 % [facility] % Immature 0.1 0 - 0.4 % [place] Granulocytes [facility] Absolute 4.5 1.6 - 8.3 [place] Neutrophil 10e9/L [facility] Absolute 1.8 0.8 - 5.3 [place] Lymphocytes 10e9[facility] Absolute 0.5 0.0 - 1.3 [place] Monocytes 10e9[facility] Absolute 0.0 0.0 - 0.7 [place] Eosinophils [address] LAB Absolute 0.0 0.0 - 0.2 [place] Basophils [address] [place] [place] [address] LAB Abs Immature 0.0 0 - 0.03 [place] Granulocytes [address] [place] [place] [address] LAB Specimen Anatomical Collection Method Collection Time Receive d Time (Source) Location / / Volume Laterality Blood specimen 02/08/2012 1:15 PM 012 1:37 (specimen) CDT PM CDT Nicanor Brunson MD LAB - BLOOD ORDERABLES Performing Organization Address City/[facility] Phon debbie Number Meg [facility] [address] [place], [place] [address] [facility] Routine UA with microscopic (02/08/2012 1:00 PM CDT) [facility] Method Time Signature Color Urine Yellow [facility] Appearance Urine Clear [facility] Glucose Urine Negative NEG mg/dL [facility] Bilirubin Urine Negative NEG [facility] Ketones Urine Negative NEG mg/dL [facility] Specific [place] 1.018 1.003 - [place] Urine 1.035 [facility] Blood Urine Negative NEG [facility] pH Urine 6.5 5.0 - 7.0 [place] pH [facility] Protein Albumin Negative NEG mg/dL [facility] Urobilinogen Normal 0.0 - 2.0 [place] mg/dL mg/dL [facility] Nitrite Urine Negative NEG [facility] Leukocyte Negative NEG [place] Esterase Urine [facility] Source Midstream [facility] WBC Urine <1 0 - 2 [facility] RBC Urine <1 0 - 2 [facility] Specimen Anatomical Collection Method Collection Time Receive d Time (Source) Location / / Volume Laterality Urine specimen URINE SPECIMEN 02/08/2012 1:00 PM 02/07 1:22 (specimen) OBTAINED BY CLEAN CDT PM CDT CATCH PROCEDURE / Unknown Rojas Barnes MD LAB - URINE ORDERABLES Performing Organization Address City/[facility]/ZIP [facility] Phon debbie [address] [facility] [address] [place], [place] [address] [facility] documented in this encounter Visit Diagnoses Diagnosis Acute back pain Backache, unspecified documented in this encounter Administered Medications Inactive Administered Medications - up to 3 most recent administrations Medication Order MAR Action Action Date Dose Rate Site HYDROmorphone (DILAUDID) 0.4 MG/0.4 ML i njection 1 dose, Starting on 02/08/12 at 1412, Until Sun 01/11 06/23 at 1411, PAYAL JORDAN: Cabinet Override HYDROmorphone (DILAUDID) injection 0.4 m g Given 02/08/2012 2:11 PM CDT 0.4 mg 0.4 mg, Intravenous, ONCE, 1 dose, On 02/08/12 at 1415 HYDROmorphone (DILAUDID) injection 1 mg Given 02/08/2012 1:28 PM CDT 1 mg 1 mg, Intravenous, ONCE, On 02/08/12 at 1330, For 1 dose ondansetron (ZOFRAN) injection 4 mg Given 02/08/2012 1:28 PM CDT 4 mg 4 mg, Intravenous, ONCE PRN, nausea, vomiting, Administer over 2-5 Minutes, Starting on 02/08/12 at 1323, For 1 dose sodium chloride 0.9 % BOLUS New Bag 02/08/2012 1:15 PM CDT 1,000 m Ls 1000 mL/hr 1,000 mL Intravenous, 1,000 mL, ONCE, at 1,000 mL/hr, Administer over 1 Hours, On 02/08/12 at 1330, For 1 dose tamsulosin (FLOMAX) capsule 0.4 mg Given 02/08/2012 1:32 PM CDT 0.4 mg 0.4 mg, Oral, ONCE, On 02/08/12 at 1330, For 1 dose documented in this encounter Active and Recently Administered Medications Times are shown in CDT. Scheduled Medication Order 02/06/2012 02/07/2012 02/08/2012 HYDROmorphone (DILAUDID) injection 0.4 mg (COMPLETED) 1411 (Given - Provider: Payal Jordan) 0.4 mg, Intravenous, ONCE, 1 dose, 02/08/12 at 1415 HYDROmorphone (DILAUDID) injection 1 mg (COMPLETED) 1328 (Given - Provider: Payal Jordan) 1 mg, Intravenous, ONCE, 1 dose, 02/08/12 at 1330 sodium chloride 0.9 % BOLUS 1,000 mL (CANCELED) 1315 (New Bag - Provider: Payal Jordan) Intravenous, 1,000 mL, ONCE, at 1,000 mL /hr, for 1 Hours, 02/08/12 at 1330, For 1 dose tamsulosin (FLOMAX) capsule 0.4 mg (COMPLETED) 1332 (Given - Provider: Payal Jordan) 0.4 mg, Oral, ONCE, 02/08/12 at 1330, For 1 dose PRN Medication Order 02/06/2012 02/07/2012 02/08/2012 ondansetron (ZOFRAN) injection 4 mg (COMPLETED) 1328 (Given - Provider: Payal Jordan) 4 mg, Intravenous, ONCE PRN, nausea, vom iting, for 2 Minutes, Starting 02/08/12 at 1323, For 1 dose documented in this encounter Care Teams Employee Benefits Coordinator Relationship Specialty Start Date End Date No Ref-Primary, Physician PCP - General 02/08/12 12/21/13 documented as of this encounter
--- OUTSIDE RECORDS SUMMARY | 2022-08-19 07:04 | XMS_ITS | Encounter Summary ---
:1975 Author Organization [facility] Address [address] [place] [address] Care Team Providers Name Role Phone No Ref-Primary, Physician Primary Care Provider [phone] Primary Fabiola Bertrand MD Primary Care Provider Unavailable Encounter Details Date Type Department Care Team Description 01/18/2000 [facility] Provider, MD Vince Social History Tobacco Use Types Packs/Day Years Used Date Smoking Tobacco: Never Assessed Sex Assigned at Date Recorded Not on file documented as of this encounter Plan of Treatment Not on filedocumented as of this encounter Visit Diagnoses Not on filedocumented in this encounter Care Teams International Account Representative Relationship Specialty Start Date End Date No Ref-Primary, Physician PCP - General 02/08/12 12/21/13 Primary Fabiola Bertrand MD PCP - General 12/22/1305/14 documented as of this encounter
[2022-08-19 07:54] VITALS: BP 132/100; PULSE 86; RESP 18; O2SAT 97
== END 2022-08-19 08:16 | disposition home or self-care (01) ==
PROVIDERS: Emergency Provider Family Medicine
DX: M54.9 Dorsalgia, unspecified (principal)
CPT/HCPCS: 36415; 74176; 80048; 81003; 85025; 86140; 99283; 99284; A9270

== ENCOUNTER 2025-08-09 10:46 | Outpatient (CLI) | payer OTHER, SELFPAY | END 2025-08-09 10:47 | disposition home or self-care (01) | LOC: AMB 08-11 01:49 | PROVIDERS: Visit Provider Family Medicine | DX: R07.9 Chest pain, unspecified (principal) | CPT/HCPCS: A0425; A0427 ==

== ENCOUNTER 2025-08-09 11:25 | Emergency (ER) | payer OTHER, SELFPAY ==
--- OUTSIDE RECORDS SUMMARY | 2025-06-30 10:16 | XMS_ITS | Encounter Summary ---
Author Organization [facility] Address [address] [place] [address] Care Team Providers Care Pipefitter Name Role Phone Anthony Carpenter APRN, C.N.P. Primary Care Provid er Reason for Visit * Reason Comments Heart Problem Encounter Details Date Type Department Care Team (Late st Contact Info) Description 06/30/2025 10:16 AM CDT - 06/30/2025 11:59 PM CDT Emergency [facility] [address] [place] [phone] Other Chest Pain (Primary Dx) Discharge Disposition: Home or Self Care Social History Tobacco Use Types Packs/Day Years Used Date Smoking Tobacco: Never Passive Smoke Exposure: Never Smokeless Tobacco: Current Chew Comments:1 can per week. Adv ised to quit. Patient stated he is trying to quit Alcohol Use Standard Drinks/Week Comments Not Currently 0 (1 standard drink = 0.6 oz pur e alcohol) rarely he states Humiliation, Afraid, Rape, and Kick questionnair e Answer Date Recorded Within the last year, have y ou been afraid of your partner or ex-partner? No 07/17/2021 Emotionally Abused Not on file 07/17/2021 Physically Abused Not on file 07/17/2021 Within the last year, have y ou been raped or forced to have any kind of sexual activity by your partner or ex-partner? No 07/17/2021 Hunger Vital Sign Answer Date Recorded Worried About Running Out of Food in the Last Ye ar Never true 06/29/2019 Ran Out of Food in the Last Year Never true 06/29/2019 PRAPARE - Transportation Answer Date Re corded In the past 12 months, has l ack of transportation kept you from medical appointments or from getting medications? No 03/2021 In the past 12 months, has l ack of transportation kept you from meetings, work, or from getting things needed for daily living? No 07/17/2021 Housing Stability Vital Sign Answer Hugo e Recorded In the last 12 months, was t here a time when you were not able to pay the mortgage or rent on time? Yes 07/17/2021 Number of Places Lived in the Last Year Not on f ile 07/17/2021 Unstable Housing in the Last Year Not on file 07/17/2021 Depression Answer Date Recor ded PHQ-9 Total Score (max 27) 9 05/05 Education Answer Date Recorded What is the highest level of school you have completed or the highest degree you have received? 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 ARIPiprazole (Abilify) 5 mg tabletIndications :Anxiety Take 1 tablet (5 mg total) by mouth at bedtime. 90 tablet 05/05/2025 hydrOXYzine (Atarax) 50 mg tablet Take 1 tablet by mouth 3 (three) times a day with meals. 01/14/2025 omeprazole (PriLOSEC) [address] capsuleIndication s:Gastroesophagea l Reflux Disease Without Esophagitis Take 1 capsule (20 mg total) by mouth daily. 90 capsule 3 05/05/2025 LORazepam (Ativan) 1 mg tabletIndications :Anxiety Take 1 tablet (1 mg total) by mouth 2 (two) times a day as needed for anxiety for up to 5 days. 10 tablet 06/30/2025 08/04/2025 nitrofurantoin monohydrate (Macrobid) 100 mg capsuleIndication s:Bladder Disorder Take 1 capsule (100 mg total) by mouth 2 (two) times a day. 10 capsule 05/05/2025 08/01/2025 documented as of this encounter Plan of Treatment Upcoming Encounters Date Type Department Care Team (Late st Contact Info) Description 08/14/2025 11:00 AM PHARMACY DISTRICT MANAGER Office Visit Department of Family Medicine, [facility], in [place], [place] [address], [place] [phone] Cat Dave M.D. [address] [place] [phone] documented as of this encounter Procedures Procedure Name Priority Date/Time Associated Diagnosis Comments DX CHEST AP OR PA AND LATERAL 2 VIEWS RAD - Semiurgent (Fast; most ED patients; some inpatients) 06/30/2025 11:41 AM CDT documented in this encounter Results * DX Chest AP or PA and Lateral 2 Views (06/30/2025 11:41 AM CDT) Anatomical Region Laterality Modality Chest, Thoracic RST LOS, Tho racic ARZ LOS, Thoracic FLA LOS N/A Digital Radiography Impressions 06/30/2025 11:46 AM CDT Stable cardiac silhouette. No focal consolidation, pleural effusion or pneumothorax. Narrative 06/30/2025 11:46 AM CDT EXAM: DX CHEST AP OR PA AND LATERAL 2 VIEWS COMPARISON: Radiographs 05/04/2025, 11/13/2024 Procedure Note Kurt Arechiga M.D. - 06/30/2025 EXAM: DX CHEST AP OR PA AND LATERAL 2 VIEWS COMPARISON: Radiographs 05/04/2025, 11/13/2024 IMPRESSION: Stable cardiac silhouette. No focal consolidation, pleural effusion orpneumothorax. us Haily Kilgore P.A.-C. IMG DIAGNOSTIC IMAGING PRO CEDURES Final Result documented in this encounter Visit Diagnoses Diagnosis Other Chest Pain- Primary documented in this encounter Additional Health Concerns Assessment Noted Time PHQ-9 Depression Total Score: 9 05/05/20 25 2:56 PM CDT documented as of this encounter Care Teams Pipefitter Relationship Specialty Start Date End Date Anthony Carpenter, ELA, C.N.P. [address] [place] [phone] PCP - General Family Medicine 08/01/19 documented as of this encounter
--- OUTSIDE RECORDS SUMMARY | 2025-07-29 10:34 | XMS_ITS | Encounter Summary ---
Author Organization [facility] Address [address] [place] [address] Care Team Providers Care Application Packaging Consultant Name Role Phone Anthony Carpenter APRN, C.N.P. 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 [address] [phone] documented as of this encounter Visit Diagnoses Not on filedocumented in this encounter Additional Health Concerns Assessment Noted Time PHQ-9 Depression Total Score: 9 05/05/20 25 2:56 PM CDT documented as of this encounter Care Teams Application Packaging Consultant Relationship Specialty Start Date End Date Anthony Carpenter APRN, C.N.P. [address] [place] [phone] PCP - General Family Medicine 08/01/19 documented as of this encounter
--- OUTSIDE RECORDS SUMMARY | 2025-08-01 18:46 | XMS_ITS | Encounter Summary ---
Author Organization [facility] Address [address] [place] [address] Care Team Providers Care Pulmonary Function Technologist Name Role Phone Anthony Carpenter APRN, C.N.P. Primary Care Provid er Reason for Visit * Reason Comments Chest Pain Anxiety Encounter Details Date Type Department Care Team (Late st Contact Info) Description 08/01/2025 6:46 PM CDT - 08/01/2025 8:08 PM CDT Emergency [facility] [address] [place] [phone] David Villalba M.D. 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 Gender Identity Not on file Sexual Orientation Not on file Occupation Industry Job Start Date Job End Date Not on file Not on file Not on file Not on file documented as of this encounter Last Filed Vital Signs Vital Sign Reading Time Taken Comments Blood Pressure 144/103 08/01/2025 7:30 PM CDT Pulse 69 08/01/2025 7:45 PM CDT Temperature - - Respiratory Rate 16 08/01/2025 7:45 PM CDT Oxygen Saturation 98% 08/01/2025 7:45 PM CDT Inhaled Oxygen Concentration - - Weight 73 kg (160 lb 15 oz) 08/01/2025 6:48 PM C DT Height - - Body Mass Index 27.34 05/05/2025 2:55 PM CDT documented in this encounter Discharge Instructions * Attachments The following attachments cannot be sent through Care Everywhere. * Managing Anxiety Adult (Nepali) documented in this encounter Medications at Time [...] to 5 days. 10 tablet 06/30/2025 08/04/2025 documented as of this encounter ED Notes * David Villalba M.D. 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 Tonight he was driving and was feeling increasingly anxious. He tried to talk to his mom to resolve it but persisted and so now presents for evaluation. He has not taken any medications to this point. No history of heart disease. No fevers or chills or cough. No shortness of breath. History provided by: Patient REVIEW OF SYSTEMS OBJECTIVE Initial Vitals Temp -- Pulse Rate 08/01/25 1845 78 Heart Rate 08/01/25 1845 76 Resp Rate 08/01/25 1845 12 Blood Pressure 08/01/25 1845 (!) 164/106 SpO2 08/01/25 184 100 % Pain Score 08/01/25 1852 7 PHYSICAL EXAMINATION Constitutional: Nursing note and vitals reviewed. He is cooperative. No distress. HENT: Head: Normocephalic and atraumatic. Mouth/Throat: Oropharynx is clear and moist. Mucous membranes are moist. No oral lesions. Neck: Neck supple. Cardiovascular: Normal rate and regular rhythm. Edema: no edema noted Pulmonary/Chest: Breath sounds normal. No respiratory distress. He exhibits no tenderness. Abdominal: Soft. There is no abdominal tenderness. Musculoskeletal: General: Normal range of motion. Cervical back: Neck supple. Neurological: Alert and oriented to person, place, and time. Skin: Skin is warm and dry. ASSESSMENT/PLAN Assessment and Plan EKG to my interpretation shows normal sinus rhythm with normal axis and intervals and no ischemic changes. It seems likely that these symptoms are entirely due to his anxiety but patient really wanted laboratories for reassurance and fortunately are unremarkable. He was given a dose of Ativan here and felt improved with that. He will keep his follow up appointment with his primary doctor tomorrowfor further medication evaluation.. Final Diagnoses: as of 08/01/251900 Anxiety David Villalba M.D. 08/01/251900 documented in this encounter Plan of Treatment Upcoming Encounters Date Type Department Care Team (Late st Contact Info) Description 08/14/2025 11:00 AM BUFFING WHEEL PRESSER Office Visit Department of Family Medicine, [facility], in [place], [place] [address] [place] [phone] Cat Dave M.D. [address] [place] [phone] documented as of this encounter Procedures Procedure Name Priority Date/Time Associated Diagnosis Comments TROPONIN T, BASELINE, 5TH GEN, P STAT 08/01/2025 7:07 PM CDT CBC WITH DIFFERENTIAL, B STAT 08/01/2025 7:07 PM CDT BASIC METABOLIC PANEL, S/P STAT 08/01/2025 7:07 PM CDT ECG STAT 08/01/2025 6:48 PM CDT documented in this encounter Results * CBC with Differential, Blood (08/01/2025 7:07 PM CDT) Hemoglobin 15.3 13.2 - 16.6 g/dL 08/01/2025 7:12 PM CDT [facility] Hematocrit 43.8 38.3 - 48.6 % 08/01/2025 7:12 PM CDT [facility] Erythrocytes 4.97 4.35 - 5.65 x10(12)/L 08/01/2025 7:12 PM CDT [facility] MCV 88.1 78.2 - 97.9 fL 08/01/2025 7:12 PM CDT [facility] RBC Distrib Width 11.9 11.8 - 14.5 % 08/01/2025 7:12 PM CDT [facility] Platelet Count 249 135 - 317 x10(9)/L 08/01/2025 7:12 PM CDT [facility] Leukocytes 5.2 3.4 - 9.6 x10(9)/L 08/01/2025 7:12 PM CDT [facility] Neutrophils 3.18 1.56 - 6.45 x10(9)/L 08/01/2025 7:12 PM CDT [facility] Lymphocytes 1.57 0.95 - 3.07 x10(9)/L 08/01/2025 7:12 PM CDT [facility] Monocytes 0.35 0.26 - 0.81 x10(9)/L 08/01/2025 7:12 PM CDT [facility] Eosinophils 0.04 0.03 - 0.48 x10(9)/L 08/01/2025 7:12 PM CDT [facility] Basophils 0.03 0.01 - 0.08 x10(9)/L 08/01/2025 7:12 PM CDT [facility] Blood (Blood, Venous) 08/01/2025 7:07 PM CDT 08/01/2025 7:09 PM CDT us David Villalba M.D. LAB BLOOD ADD-ON Final Re sult [facility] [address] [facility] [place] [address] * Troponin T, Baseline with 2 Hour/6 Hour Reflex Biomarker Panel (08/01/2025 7:07 PM CDT) Troponin T, Baseline, 5th gen <6 <=15 ng/L 08/01/2025 7:35 PM CDT [facility] Blood (Blood, Venous) 08/01/2025 7:07 PM CDT 08/01/2025 7:09 PM CDT us David Villalba M.D. LAB BLOOD TROPONIN Final Result [facility] [address] [place] [address], [facility] [place] [address] * Basic Metabolic Panel (08/01/2025 7:07 PM CDT) Pathologist [facility] Potassium, P 3.9 3.6 - 5.2 mmol/L 08/01/2025 7:33 PM CDT [facility] Sodium, P 137 135 - 145 mmol/L 08/01/2025 7:33 PM CDT [facility] Chloride, P 106 98 - 107 mmol/L 08/01/2025 7:33 PM CDT [facility] Bicarbonate, P 24 22 - 29 mmol/L 08/01/2025 7:33 PM CDT [facility] Anion Gap, P 7 7 - 15 08/01/2025 7:33 PM CDT [facility] BUN (Blood Urea Nitrogen), P 12 8 - 24 mg/dL 08/01/2025 7:33 PM CDT [facility] Creatinine 1.08 0.74 - 1.35 mg/dL 08/01/2025 7:33 PM CDT [facility] Estimated GFR (eGFR) 83 >=60 mL/min/BSA 08/01/2025 7:33 PM CDT [facility] Comment: Estimated GFR calculated using the 2020 CKD_EPI creatinine equation. Calcium, Total, P 8.8 8.6 - 10.0 mg/dL 08/01/2025 7:33 PM CDT [facility] Glucose, P 100 70 - 140 mg/dL 08/01/2025 7:33 PM CDT [facility] Blood (Blood, Venous) 08/01/2025 7:07 PM CDT 08/01/2025 7:09 PM CDT us David Villalba M.D. LAB BLOOD ADD-ON Final Re sult Performing Organization Address [facility] Co de Phone Number [facility] [address] [place] [address], [facility] [place] [address] * ECG 12 Lead (08/01/2025 6:48 PM CDT) Ventricular Rate ECG/Min 74 BPM MUSE GA Interval 150 ms MUSE QRSD Interval 86 ms MUSE QT Interval 372 ms MUSE QTC Interval 412 ms MUSE P [place] 30 degrees MUSE R [place] 31 degrees MUSE T Wave [place] 39 degrees MUSE 08/01/2025 6:48 PM CDT 08/02/2025 9:59 AM CDT Impressions MUSE - 08/02/2025 9:59 AM CDT Normal sinus rhythm Normal ECG No previous ECGs available Confirmed by Gustavo Rios ([id number]) on 08/02/2025 9:59:15 AM Narrative Procedure Note Gustavo Rios L, M.B.B.S. - 08/02/2025 IMPRESSION: Normal sinus rhythm Normal ECG No previous ECGs available Confirmed by Gustavo Rios ([id number]) on 08/02/2025 9:59:15 AM us David Villalba M.D. ECG ORDERABLES Final Res ult Performing Organization Address [facility] Co de Phone Number MUSE NA documented in this encounter Visit Diagnoses Diagnosis Anxiety- Primary documented in this encounter Administered Medications Inactive Administered Medications - up to 3 most recent administrations Medication Order MAR Action Action Date Dose Rate Site LORazepam tablet 1 mg (Ativan) 1 mg, oral, Once, On Thu08/01/25 at 1900, For 1 dose Given 08/01/2025 7:01 PM CDT 1 mg documented in this encounter Active and Recently Administered Medications Times are shown in CDT. Scheduled Medication Order 07/30/2025 07/31/2025 08/01/2025 LORazepam tablet 1 mg (Ativan) (COMPLETED) 1 mg, oral, Once, On Thu08/01/25 at 1900, For 1 dose 1900 (Given - Provid er: Roya Jimenez R.N., [facility]) documented in this encounter Additional Health Concerns Assessment Noted Time PHQ-9 Depression Total Score: 9 05/05/20 2:56 PM CDT documented as of this encounter Care Teams Pulmonary Function Technologist Relationship Specialty Start Date End Date Anthony Carpenter APRN, C.N.P. [address] [phone] PCP - General Family Medicine 08/01/19 documented as of this encounter
--- OUTSIDE RECORDS SUMMARY | 2025-08-04 10:52 | XMS_ITS | Encounter Summary ---
Author Organization [facility] Address [address] [place] [address] Care Team Providers Care Lamp Inspector Name Role Phone Anthony Carpenter APRN, C.N.P. Primary Care Provid er Reason for Visit * Reason Comments Anxiety Pt c/o feeling anxio us for the past year. States he has an appointment Thursday with PCP Encounter Details Date Type Department Care Team ([facility] Contact Info) Description 08/04/2025 10:52 AM CDT - 08/04/2025 12:32 PM CDT Emergency [facility] [address] [place] [phone] Daniel Hayden, P.A.-C., M.S. 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 Gender Identity Not on file Sexual Orientation Not on file Occupation Industry Job Start Date Job End Date Not on file Not on file Not on file Not on file documented as of this encounter Last Filed Vital Signs Vital Sign Reading Time Taken Comments Blood Pressure 145/95 08/04/2025 10:55 AM CDT Pulse 94 08/04/2025 12:22 PM CDT Temperature 36.4 C (97.5 F) 08/04/2025 10:55 AM CDT Respiratory Rate 22 08/04/2025 10:55 AM CDT Oxygen Saturation 95% 08/04/2025 12:22 PM CDT Inhaled Oxygen Concentration - - Weight 74 kg (163 lb 2.3 oz) 08/04/2025 10:55 AM CDT Height - - Body Mass Index 27.72 05/05/2025 2:55 PM CDT documented in this encounter Discharge Instructions * Discharge Instructions* Daniel Hayden P.A.-C., M.S. - 08/04/2025 12:19 PM CDT Please follow up on the with primary care provider. * Attachments The following attachments cannot be sent through Care Everywhere. * Managing Anxiety Adult ([place]) documented in this encounter Medications at Time of Discharge acetaminophen (for_TYLENOL) 500 mg tablet Take 1,000 mg by mouth. ARIPiprazole (Abilify) 5 mg tabletIndications: Anxiety Take 1 tablet (5 mg total) by mouth at bedtime. 90 tablet 05/05/2025 hydrOXYzine (Atarax) 50 mg tablet Take 1 tablet by mouth 3 (three) times a day with meals. 01/14/2025 LORazepam (Ativan) 1 mg tablet Take 1 tablet (1 mg total) by mouth 2 (two) times a day as needed for anxiety for up to 3 days. 5 tablet 08/04/2025 omeprazole (PriLOSEC) [address] capsuleIndications :Gastroesophageal Reflux Disease Without Esophagitis Take 1 capsule (20 mg total) by mouth daily. 90 capsule 3 05/05/2025 documented as of this encounter ED Notes * Daniel Hayden P.A.-C., M.S. - 08/04/2025 12:29 PM CDT SUBJECTIVE CHIEF COMPLAINT/REASON FOR VISIT Anxiety (Pt c/o feeling anxious for the past year. States he has an appointment Thursday with PCP) HISTORY OF PRESENT ILLNESS Patient is a pleasant 49 y.o. male with past medical history of, severe anxiety, who presents to the Emergency Department via private vehicle with complaint of anxiety. Patient has some insight into his anxiety but perseverates about his symptoms. He is hoping to get help for his anxiety today. He has not appointment coming up in 4 days but since he can not wait until then. Constellation of symp toms including shortness of breath and chest pain. Patient has had multiple recent ED visits with the appropriate workups that have been negative. History provided by: Patient and medical records REVIEW OF SYSTEMS Constitutional: Negative for fever. Respiratory: Positive for shortness of breath. Cardiovascular: Positive for chest pain. Psychiatric/Behavioral: The patient is nervous/anxious. OBJECTIVE Initial Vitals Temperature 08/04/25 1055 36.4 ??C Pulse Rate 08/04/25 1055 99 Heart Rate -- Resp Rate 08/04/25 1055 22 Blood Pressure 08/04/25 1055 (!) 145/95 SpO2 08/04/25 1100 96 % Pain Score 08/04/25 1108 0 - No pain PHYSICAL EXAMINATION Constitutional: Nursing note and vitals reviewed. He is cooperative. No distress. HENT: Head: Normocephalic and atraumatic. Eyes: Conjunctivae and lids are normal. Neck: Neck supple. Cardiovascular: Normal rate and regular rhythm. No murmur heard. Pulmonary/Chest: Effort normal and breath sounds normal. Musculoskeletal: Cervical back: Neck supple. Neurological: Alert. Normal speech. Skin: Skin is normal color. Psychiatric: His mood appears anxious. ASSESSMENT/PLAN Assessment and Plan In shared decision-making with the patient will initiate oral Ativan. Patient had significant relief of symptoms. No further workup indicated at this time. Patient does not have an appointment in 4 days and so 5 tablets of Ativan prescribed. Return precautions the emergency department given.. DIFFERENTIAL DIAGNOSES Anxiety, somatic disorder, drug-seeking or malingering. Less likely acute coronary syndrome, pulmonary embolism, pneumonia, pneumothorax.. Final Diagnoses: as of 08/04/25 1229 Anxiety Daniel Hayden P.A.-C., M.S. 08/04/25 1231 documented in this encounter Plan of Treatment Upcoming Encounters Date Type Department Care Team (Late st Contact Info) Description 08/14/2025 11:00 AM POLYGRAPH EXAMINER Office Visit Department of Family Medicine, [facility], in [place], [place] [address], [place] [phone] Cat Dave M.D. [address], [place] [phone] documented as of this encounter Visit Diagnoses Diagnosis Anxiety- Primary documented in this encounter Administered Medications Inactive Administered Medications - up to 3 most recent administrations Medication Order MAR Action Action Date Dose Rate Site LORazepam tablet 1 mg (Ativan) 1 mg, oral, Once, On Thu08/04/25 at 1101, For 1 dose Given 08/04/2025 11:08 AM CDT 1 mg documented in this encounter Active and Recently Administered Medications Times are shown in CDT. Scheduled Medication Order 08/02/2025 08/03/2025 08/04/2025 LORazepam tablet 1 mg (Ativan) (COMPLETED) 1 mg, oral, Once, On Thu08/04/25 at 1101, For 1 dose 1108 (Given - Provid er: Yessi Marsh R.N.) documented in this encounter Additional Health Concerns Assessment Noted Time PHQ-9 Depression Total Score: 9 05/05/20 25 2:56 PM CDT documented as of this encounter Care Teams Lamp Inspector Relationship Specialty Start Date End Date Anthony Carpenter APRN, C.N.P. [address] [phone] PCP - General Family Medicine 08/01/19 documented as of this encounter
[2025-08-09 11:35] VITALS: BP 142/111; PULSE 76; RESP 22; TEMP 36.7; O2SAT 98
--- NOTE | 2025-08-09 11:45 | CRLHL7_ITS ---
For Patients: As a result of the Century Cures Act, medical imaging exams and procedure reports are released immediately into your electronic medical record. You may view this report before your referring provider. If you have questions, please contact your health care provider. INDICATION: Shortness of breath. TECHNIQUE: Chest 1 view. COMPARISON: None. FINDINGS: Cardiovascular and mediastinum: Heart size and vasculature are normal in caliber and appearance. Lungs and pleural spaces: Lungs are clear. No pleural effusion, or pneumothorax. Bones and soft tissues: Chronic-appearing degenerative and/or postsurgical changes of the left proximal humerus. Possible calcified intra-articular body. IMPRESSION: 1. No evidence of an acute pulmonary process. 2. Chronic-appearing degenerative and/or posttraumatic changes of the left proximal humerus. Possible two small linear calcified intra-articular bodies. Dictated by David Rae MD @ 08/09/2025 12:48:29 PM (Electronically Signed)
--- NOTE | 2025-08-09 11:48 | ED.GENADULT ---
HPI - General Adult General Date Seen: 08/09/25 Chief complaint: Anxiety Stated complaint: Anxiety Time Seen by Provider: 08/09/25 11:35 History of Present Illness HPI narrative: Patient is a 49-year-old with a past medical history of anxiety, ADD, kidney stones, who presents by EMS with concerns of significant anxiety, feeling like something terrible is going to happen, chest pain, shortness of breath. He tells me he has a history of anxiety, was seen somewhere recently, given Ativan, and he is supposed to follow-up with his regular clinic next Thursday for further care. He says that he worries all the time about his family, his parents, something terrible happening. 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 He denies prior cardiac history, DVT PE. He does not smoke or drink, denies any substance use aside from the prescribed Ativan. Related Data Home Medications ?Medication ?Instructions ?Recorded ?Confirmed dextroamphetamine-amphetamine 10 10 mg PO DAILY 06/13/22 07/08/22 mg tablet hydroxyzine HCl 50 mg tablet 50 mg PO 3XD PRN 08/09/25 08/09/25 lorazepam 0.5 mg tablet 0.5 mg PO BID PRN anxiety 08/09/25 08/09/25 Allergies Allergy/AdvReac Type Severity Reaction Status Date / Time ketorolac (From Toradol) Allergy Hives Verified 06/13/22 11:48 Penicillins Allergy Vomiting Verified 06/13/22 11:48 tramadol Allergy Nausea Verified 06/13/22 11:48 Review of Systems Status of ROS: Reports: 10 or more systems reviewed and unremarkable except as noted in History and below [facility] Medical History History of kidney stones ?Z87.442 - Personal history of urinary calculi (ICD-10) Depression ?F32.A - Depression, unspecified (ICD-10) Acute back pain with sciatica ?M54.40 - Lumbago with sciatica, unspecified side (ICD-10) Nontraumatic complete tear of left rotator cuff ?M75.122 - Complete rotator cuff tear or rupture of left shoulder, not specified as traumatic (ICD-10) SLAP lesion of left shoulder ?S43.432A - Superior glenoid labrum lesion of left shoulder, initial encounter (ICD-10) ADHD ?F90.9 - Attention-deficit hyperactivity disorder, unspecified type (ICD-10) Surgical History Hx of hand surgery ?Z98.890 - Other specified postprocedural states (ICD-10) History of surgery on left wrist ?Z98.890 - Other specified postprocedural states (ICD-10) History of carpal tunnel release ?Z98.890 - Other specified postprocedural states (ICD-10) History of repair of left rotator cuff ?Z98.890 - Other specified postprocedural states (ICD-10) History of shoulder surgery ?Z98.890 - Other specified postprocedural states (ICD-10) Social History Smoking Status: Never smoker Do you use any of these nicotine containing products: None Second hand tobacco smoke exposure: No How often do you have a drink containing alcohol: never How often do you have six or more drinks on one occasion: Never AUDIT-C Alcohol total score: 0 Non-prescribed substance use: denies use Exam Narrative: Exam Narrative: Vital signs reviewed In general, alert, nontoxic mid aged male. Head: Normocephalic, atraumatic. Eyes: Sclera clear. Pupils equal and reactive. ENT: Mucous membranes moist. Neck: Supple without adenopathy. Heart: Regular rate and rhythm without murmur. Lungs: Clear. No increased work of breathing, crackles or wheezes. Abdomen: Soft, nontender to palpation. Extremities: Well perfused, pulses intact. No significant edema. Neurologic: Alert, conversant. Speech fluent, face symmetric. Moves all extremities equally. Skin: Warm, dry well perfused. Affect: Agitated, anxious. Const: Vital Signs, click to edit/add: Vital Signs - 24 hr 08/09/25 11:35 Temperature 98.1 F Pulse Rate [Pulse Oximeter] 76 Respiratory Rate 22 Blood Pressure [Ri ght Upper Arm] 142/111 H Pulse Oximetry 98 Oxygen Delivery Me thod Room Air Course Course ED Course: Following initial evaluation, patient an EKG which shows fair amount of artifact, sinus tachycardia, ventricular rate of 107. QT corrected of 443, normal indices otherwise, no acute ST segment changes. During the course of our conversation he repeated ?Am I going to be alright? You promise? Multiple times. He is clearly significantly anxious, rocking back and forth and somewhat agitated. I think it would be worthwhile to do some screening tests including a D-dimer and troponin, chest x-ray in the unlikely event that this represents acute coronary syndrome, pulmonary embolism, pneumonia, pneumothorax etcetera. I am going to give him some Valium as he says that benzodiazepines have been helpful. D-dimer and troponin are negative. Chest x-ray by my review is negative, radiology report pending. Chest x-ray read by Radiology as showing no acute findings. Reviewed all this with patient. He is feeling improved after Valium. On further discussion he tells me that he was prescribed hydroxyzine and Ativan when he was in an ER last weekend, but also notes that he had a prior prescription for some anxiety medication, possibly duloxetine, which he has been out of for quite some time. He assures me he has a primary care appointment in a little less than a week, stressed the importance of following up so that we can get him back on better anxiety medication. I did give him additional Ativan as well as hydroxyzine but reviewed that these are not meant for long-term management, and he will need to make sure to be seen by primary care for further management. Return as needed if worsening or new symptoms. Vital Signs Vital signs: Initial Vital Signs Temperature 98.1 F 08/09/25 11:35 Temperature Source Temporal Artery Scan 08/09/25 11:35 Pulse Rate 76 08/09/25 11:35 Respiratory Rate 22 08/09/25 11:35 Blood Pressure 142/111 H 08/09/25 11:35 Blood Pressure Mean 121 H 08/09/25 11:35 Blood Pressure Position Sitting 08/09/25 11:35 Pulse Oximetry 98 08/09/25 11:35 Oxygen Delivery Method Room Air 08/09/25 11:35 Vital Signs Temperature 98.1 F 08/09/25 11:35 Pulse Rate 76 08/09/25 11:35 Respiratory Rate 22 08/09/25 11:35 Blood Pressure 142/111 H 08/09/25 11:35 Pulse Oximetry 98 08/09/25 11:35 Oxygen Delivery Method Room Air 08/09/25 11:35 Temperature 98.1 F 08/09/25 11:35 Pulse Rate 76 08/09/25 11:35 Respiratory Rate 22 08/09/25 11:35 Blood Pressure 142/111 H 08/09/25 11:35 Pulse Oximetry 98 08/09/25 11:35 Oxygen Delivery Method Room Air 08/09/25 11:35 Medications Administered Medications: Discontinued Medications Generic Name Dose Route Start Last Admin Trade Name Prashantq PRN Reason Stop Dose Admin Diazepam 5 mg 08/09/25 11:46 08/09/25 12:05 Diazepam 5 Mg/Ml Inj IV 08/09/25 11:47 5 mg ONCE ONE Administration Medical Decision Making Lab Data Lab results reviewed: Yes I reviewed the patient's lab results Labs: Lab Results 08/09/25 08/09/25 Range/Units 11:46 11:56 D-Dimer Quant (PE/DVT) < 0.27 (0.00-0.50) ug/ml POC Troponin I 0.00 L (0.01-0.04) ng/ml Imaging Data Chest x-ray: Attestation: I have reviewed the pertinent imaging results. Radiologist's impression: Patient: PADMAJA VIGIL Facility: [facility] Site . Site : 1975 Study: XRay-Chest PORTABLE-08/09/2025 12:41:01 PM Ordering Physician: Maeve Sanders Final Report: INDICATION: Shortness of breath. TECHNIQUE: Chest 1 view. COMPARISON: None. FINDINGS: Cardiovascular and mediastinum: Heart size and vasculature are normal in caliber and appearance. Lungs and pleural spaces: Lungs are clear. No pleural effusion, or pneumothorax. Bones and soft tissues: Chronic-appearing degenerative and/or postsurgical changes of the left proximal humerus. Possible calcified intra-articular body. IMPRESSION: 1. No evidence of an acute pulmonary process. 2. Chronic-appearing degenerative and/or posttraumatic changes of the left proximal humerus. Possible two small linear calcified intra-articular bodies. Discharge Plan Discharge Clinical Impression: Acute anxiety Patient Disposition: Home, Self-Care Condition: Improved Instructions: Panic Disorder (ED), Anxiety (ED) Additional Instructions: Tests today are reassuring. There is no evidence of a problem with her heart or lungs. I think her symptoms are related to anxiety/panic. Please make sure to follow-up next week as planned. I have prescribed a few more Ativan for you for use with severe symptoms, but please be aware that this is not a long-term solution, you will need longer term management for your anxiety symptoms, and this needs to be done through primary care. Return as needed if you are having more trouble. Prescriptions: No Action dextroamphetamine-amphetamine 10 mg tablet 10 mg PO DAILY hydroxyzine HCl 50 mg tablet 50 mg PO 3XD PRN lorazepam 0.5 mg tablet 0.5 mg PO BID PRN (Reason: anxiety) Follow Up/Referrals: Provider,Not a Local [Primary Care Provider, Family Practice] Stand Alone Forms: [employer] Info Instructions
--- OUTSIDE RECORDS SUMMARY | 2025-08-09 11:54 | XMS_ITS | Encounter Summary ---
Author Organization [facility] Address [address] [place] [address] Care Team Providers Care Steam Service Inspector Name Role Phone Anthony Carpenter APRN, CNP Primary Care Prov ider Encounter Details Date Type Department Care Team (Late st Contact Info) Description 05/29/2013 Outside Hospital External to [facility] ER VISIT/TRANSFER Social History Tobacco Use Types Packs/Day Years Used Date Smoking Tobacco: Never Assessed Sex and Gender Information Value Date Recorded Sex Assigned at Not on file Legal Sex Male 2:23 PM CDT Gender Identity Not on file Sexual Orientation Not on file documented as of this encounter Progress Notes * [facility], PROVIDER - 05/29/2013 12:00 AM CDT documented in this encounter Plan of Treatment Not on file documented as of this encounter Visit Diagnoses Not on filedocumented in this encounter Care Teams Steam Service Inspector Relationship Specialty Start Date End Date Anthony Carpenter APRN, [place] [address] [facility] [place] [address] PCP - General Nurse Practitioner 08/28/21 documented as of this encounter
--- OUTSIDE RECORDS SUMMARY | 2025-08-09 11:54 | XMS_ITS | Encounter Summary ---
Author Organization [facility] Address [address] [place] [address] Care Team Providers Care Projection Technician Name Role Phone Anthony Carpenter APRN, CNP Primary Care Prov ider Encounter Details Date Type Department Care Team (Late st Contact Info) Description 05/30/2013 Consent for Procedure/Treatme [facility] Department INFORMED CONSENT RECORD Social History Tobacco Use Types Packs/Day Years Used Date Smoking Tobacco: Never Assessed Sex and Gender Information Value Date Recorded Sex Assigned at Not on file Legal Sex Male 2:23 PM CDT Gender Identity Not on file Sexual Orientation Not on file documented as of this encounter Progress Notes * [facility], PROVIDER - 05/30/2013 12:00 AM CDT documented in this encounter Plan of Treatment Not on file documented as of this encounter Visit Diagnoses Not on filedocumented in this encounter Care Teams Projection Technician Relationship Specialty Start Date End Date Anthony Carpenter APRN, [place] [address] [place] [address] PCP - General Nurse Practitioner 08/28/21 documented as of this encounter
--- OUTSIDE RECORDS SUMMARY | 2025-08-09 11:55 | XMS_ITS | Clinical Summary ---
Author Organization [facility] Address [address] [place] [id number] Care Team Providers Care Senior Accountant Analyst Name Role Phone Anthony Carpenter SUPERVISOR COIN MACHINE Primary Care Provider [phone] Allergies Active Allergy Reactions Criticality Noted Date Comments Adhesive Tape-Silicones Other - Describe In Comment Field 02/26/2017 Tape only - not simethicone Gadolinium-Containing Contrast Media Rash Medium 09/17/2018 Ketorolac Hives,Itching,Rash, Nausea Only,Other - Describe In Comment Field,*Unknown Medium 05/14/2011 Other reaction(s): Other (see comments) Jaxonner listed no reactions Per outside record Other reaction(s): Other (see comments) Cerner listed no reactions Jaxonner listed no reactions Latex Rash 10/21/2012 Other reaction(s): Other (see comments) Jaxonner listed no reactions Penicillins Rash 10/21/2012 Other reaction(s): GI intolerance, Other (see comments) Marianne listed no reactions Adhesive Rash 05/22/2014 Tramadol GI Upset,Rash 03/22/2014 Medications LORazepam 1 mg tabletIndicatio ns:Panic attack Take 1 Tablet (1 mg) by mouth every 6 hours if needed for Anxiety for up to 12 doses. 12 Tablet 5 Active famotidine (PEPCID) 20 mg tabletIndicatio ns:Palpitations ,Gastritis, presence of bleeding unspecified, unspecified chronicity, unspecified gastritis type Take 1 Tablet (20 mg) by mouth two times daily. 28 Tablet 5 Active famotidine (PEPCID) 20 mg tabletIndicatio ns:Palpitations ,Gastritis, presence of bleeding unspecified, unspecified chronicity, unspecified gastritis type Take 1 Tablet (20 mg) by mouth two times daily for 14 days. 28 Tablet 5 025 Discontinued famotidine (PEPCID) 20 mg tabletIndicatio ns:Palpitations ,Gastritis, presence of bleeding unspecified, unspecified chronicity, unspecified gastritis type Take 1 Tablet (20 mg) by mouth two times daily. 28 Tablet 5 025 Discontinued Active Problems Problem Noted Date Diagnosed Date Gastric outlet obstruction 08/30/2023 Hypokalemia 08/20/2023 Chronic right shoulder pain 08/20/2023 Mild intermittent asthma without complication GERD (gastroesophageal reflux disease) Depression 08/20/2023 Alcohol use disorder, severe, dependence 023 Alcohol withdrawal 08/20/2023 Methamphetamine use 08/20/2023 Acute back pain with sciatica, right 01/23/2022 ADHD 01/23/2022 Depression 01/23/2022 Nontraumatic complete tear of rotator cuff, left 12/28/2018 SLAP lesion of left shoulder 04/27/2018 Resolved Problems Problem Noted Date Diagnosed Date Resolved Date Abdominal pain, acute, left lower quadrant 08/29/2023 08/30/2023 Alcohol intoxication 04/17/2014 022 Alcoholism 04/17/2014 02/05/2022 Encounters Date Type Department Care Team Description 07/29/2025 10:37 AM CDT - 07/29/2025 12:[address] [address] Jorge Clemente PA Palpitations (Primary Dx); Gastritis, presence of bleeding unspecified, unspecified chronicity, unspecified gastritis type; Atypical chest pain Discharge Disposition: Home Self Care 07/29/2025 Travel 06/30/2025 10:24 AM CDT - 06/30/2025 12:55 PM T [address] [address] Haily Kilgore PA Atypical chest pain (Primary Dx); Anxiety Discharge Disposition: Home Self Care 06/30/2025 Travel from Last 3 Months Immunizations Immunization Administration Dates Next Due DTaP 12/10/1990, 5,10/12/1974,04/11/1974, 974 MMR 06/27/1992,08/10/1979 Polio Virus, Unspecified 07/12/1975,10/12/1974,0 04/11/1974,03/12/1974 Td (Age >=7 Years) 04/11/2012 Tdap 12/25/2020 Family History Medical History Relation Name Comments Alcoholism Father Chronic back pr oblems. Alcoholism Mother Alcoholism Paternal Uncle 1 early 60s Heart Disease Paternal Uncle 2 Likely rel ated to EtOHism Relation Name Status Comments Father Alive Mother Alive Paternal Uncle 1 Paternal Uncle 2 Social History Tobacco Use Types Packs/Day Years Used Date Smoking Tobacco: Never Smokeless Tobacco: Current Chew Tobacco Cessation:Ready to Q uit: No; Counseling Given: Yes Comments:1 tin per day (working on cutting back) Alcohol Use Standard Drinks/Week Comments Not Currently 126 (1 standard drink = 0.6 oz p ure alcohol) sober since 2013 PHQ-2 Answer Date Recorded PHQ-2 TOTAL SCORE 4 09/01/2023 Social Connections Answer Date Recorded Do you often feel lonely or isolated from those around you? 4 08/22/2023 Financial Resource Strain Answer Date R ecorded Difficulty of Paying Living Expenses 3 08/22/2023 Difficulty of Paying Living Expenses Not on file 08/22/2023 Food Insecurity Answer Date Recorded Do you worry your food will run out before you are able to buy more? 1 08/22/2023 Transportation Needs Answer Date Record ed Does lack of transportation keep you from medica l appointments? 1 08/22/2023 Does lack of transportation keep you from work, meetings or getting things that you need? 1 08/22/2023 Housing Stability Answer Date Recorded What is your housing situation today? 3 08/22/2023 Interpersonal Safety Answer Date Record ed Are you being hit, kicked, p ushed or yelled at (see row info)? 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 Not on file Not on file Not on file Obstetrics History Last Filed Vital Signs Vital Sign Reading Time Taken Comments Blood Pressure 148/105 07/29/2025 10:42 AM CDT Pulse 80 07/29/2025 10:42 AM CDT Temperature 36.5 C (97.7 F) 07/29/2025 10:42 AM CDT Respiratory Rate 16 07/29/2025 10:42 AM CDT Oxygen Saturation 98% 07/29/2025 10:42 AM CDT Inhaled Oxygen Concentration - - Weight 70.9 kg (156 lb 4.8 oz) 07/29/2025 10:42 AM CDT Height 165.1 cm (5' 5) 07/29/2025 10:42 AM CDT Body Mass Index 26.01 07/29/2025 10:42 AM CDT Plan of Treatment Health Maintenance Due Date Last Done Comments HIV for age 15-65 1988 BMI (ht and wt on same day) for age 18+ 1991 Hepatitis C screening for age 18-79 1991 Hepatitis B series for 19+ ( 1 of 3 - 19+ 3-dose series) 1992 Pneumococcal series for age 50+ (1 of 2 - PCV) 1992 Zoster (shingles) series for age 50+ (1 of 2) 2023 Depression screening for age 12+ 08/19/2024 08/19/20 23 Influenza Vaccine (#1) 2025 Lipids for age 45-75 08/19/2028 08/19/2023 Tetanus booster 12/25/2030 12/25/2020, 04/11/2012 Colonoscopy through age 75 07/29/2031 07/29/2021 RSV vaccine for adults or pr egnancy (1 - 1-dose 75+ series) 2048 Medical Devices Implanted Type Area Home Furnishings Sales Representative Device Identifier Shelf Expiration Date Model / Serial / Lot Ancr Sut 2.9x12.5mm Pushlock Bio-Comp - [id number] Implanted:Qty: 1 on 04/28/2018 by Kaden Pineda MD at [facility] Left: Shoulder [employer] 02/09/2020 AR-[id number]# / / [id number] Ancr Sut 2.9x12.5mm Pushlock Bio-Comp - [id number] Implanted:Qty: 1 on 04/28/2018 by Kaden Pineda MD at [facility] Left: Shoulder [employer] 02/09/2020 AR-[id number]# / / [id number] Sut [employer] Prox Tenodesis Implnt Kit Rev 0 - [id number] Implanted:Qty: 1 on 04/28/2018 by Kaden Pineda MD at [facility] Left: Shoulder [employer] 11/11/2022 AR-2290# / / [id number] Ancr Soft Tissue 4.75mm X 19mmswivelock - [id number] Implanted:Qty: 1 on 04/28/2018 by Kaden Pineda MD at [facility] Left: Shoulder [employer] 01/10/2020 AR-2324BCC # / / [id number] Ancr Soft Tissue 4.75mm X 19mmswivelock - [id number] Implanted:Qty: 1 on 12/30/2018 by Kaden Pineda MD at [facility] Left: Shoulder [employer] 06/11/2020 AR-[id number] # / / [id number] Ancr Soft Tissue 4.75mm X 19mmswivelock - [id number] Implanted:Qty: 1 on 12/30/2018 by Kaden Pineda MD at [facility] Left: Shoulder [employer] 07/11/2020 AR-[id number] # / / [id number] Procedures Procedure Name Priority Date/Time Associated Diagnosis Comments CBC WITH AUTO DIFFERENTIAL STAT 07/29/2025 11:11 AM CDT LIPASE STAT 07/29/2025 11:11 AM CDT MAGNESIUM STAT 07/29/2025 11:11 AM CDT TSH STAT 07/29/2025 11:11 AM CDT TROPONIN T (HS) ACUTE W/2HR REFLEX STAT 07/29/2025 11:11 AM CDT BASIC METABOLIC PANEL STAT 07/29/2025 11:11 AM CDT CBC WITH AUTO DIFFERENTIAL STAT 07/29/2025 11:11 AM CDT EKG 12 LEAD STAT 07/29/2025 10:38 AM CDT XR CHEST 2 VIEWS PA AND LATERAL STAT 06/30/2025 11:41 AM CDT D-DIMER,QUANTITATIVE KAMERON 06/30/2025 11:32 AM CDT CBC WITH AUTO DIFFERENTIAL STAT 06/30/2025 11:32 AM CDT EXTRA TUBE BLUE Today 06/30/2025 11:32 AM CDT TROPONIN T (HS) ACUTE W/2HR REFLEX STAT 06/30/2025 11:32 AM CDT BASIC METABOLIC PANEL STAT 06/30/2025 11:32 AM CDT CBC WITH AUTO DIFFERENTIAL STAT 06/30/2025 11:32 AM CDT EKG 12 LEAD STAT 06/30/2025 10:24 AM CDT LIPID PANEL KAMERON 08/19/2023 7:38 PM LOCKSTITCH FRONT EDGE TAPE SEWER COLONOSCOPY 07/29/2021 1:37 PM CDT from Last 3 Months or Most Recently Relevant to Health Maintenance Results * TROPONIN T (HS) ACUTE W/2HR REFLEX (07/29/2025 11:11 AM CDT) Only the most recent of2 resultswithin the time period is included. TROPONIN T HS <6 6-15 ng/L ng/L 07/29/2025 11:53 AM CDT [facility] Blood BLOOD SPECIMEN / Unknown Venipuncture / Unknown 07/29/2025 11:11 AM CDT 07/29/2025 11:20 AM CDT [facility] - 07/29/2025 11:53 AM CDT hs-cTnT (Elecsys Troponin T Gen 5) concentration (s) above the sex-specific 99th percentile (16 ng/L or greater for males or 11 ng/L or greater for females) are indicative of myocardial injury. If initial hs-cTnT <=100 ng/L at presentation, a 0h/2h ABSOLUTE (ng/L) delta change (rising or falling) of >=10 ng/L suggests a significant change, whereas a 0h/2h delta change <=3 ng/L suggests no significant change. If initial hs-cTnT >100 ng/L at presentation, a 0h/2h/ RELATIVE (percent, %) delta change of 20% is suggested to distinguish patients with acute vs. chronic myocardial injury. There are multiple etiologies that can cause hs-cTnT increases above the 99th percentile (myocardial injury) other than acute myocardial infarction. Clinical context and careful clinical evaluation are critical for diagnosis and risk-stratification. The diagnosis of acute myocardial infarction requires a rising and/or falling pattern in hs-cTnT concentrations with at least one value above the sex-specific 99th percentile PLUS at least one of the following clinical criteria: ischemic symptoms, new or presumed new significant ST-T wave changes or new LBBB, development of pathological Q waves, imaging evidence of new loss of viable myocardium or new regional wall motion abnormality, or identification of intracoronary atherothrombosis or an acute angiographic culprit on coronary angiography. In appropriate low-risk patients with a non-ischemic electrocardiogram without active chest pain with a symptom onset >3-hours without recurrence, a single initial hs-cTnT<6 ng/L identifies patient with a very low risk in emergency department patient population. us Jorge VICKERS CHEMISTRY Fin al Result [facility] [address] [address] * CBC WITH AUTO DIFFERENTIAL (07/29/2025 11:11 AM CDT) Only the most recent of2 resultswithin the time period is included. WHITE BLOOD COUNT 4.6 4.5 - 11.0 thou/cu mm 07/29/2025 11:24 AM [facility] RED BLOOD COUNT 5.24 4.30 - 5.90 mil/cu mm 07/29/2025 11:24 AM [facility] HEMOGLOBIN 16.5 13.5 - 17.5 g/dL 07/29/2025 11:24 AM [facility] HEMATOCRIT 46.3 37.0 - 53.0 % 07/29/2025 11:24 AM [facility] MCV 88 80 - 100 fL 07/29/2025 11:24 AM [facility] MCH 31.5 26.0 - 34.0 pg 07/29/2025 11:24 AM [facility] MCHC 35.6 32.0 - 36.0 g/dL 07/29/2025 11:24 AM [facility] RDW 12.2 11.5 - 15.5 % 07/29/2025 11:24 AM [facility] PLATELET COUNT 240 140 - 440 thou/cu mm 07/29/2025 11:24 AM [facility] MPV 10.0 6.5 - 11.0 fL 07/29/2025 11:24 AM [facility] % NEUT 65.7 % 07/29/2025 11:24 AM [facility] % LYMPH 22.8 % 07/29/2025 11:24 AM [facility] % MONO 10.2 % 07/29/2025 11:24 AM [facility] % EOS 0.9 % 07/29/2025 11:24 AM [facility] % BASO 0.4 % 07/29/2025 11:24 AM [facility] ABSOLUTE NEUTROPHILS 3.0 1.7 - 7.0 thou/cu mm 07/29/2025 11:24 AM [facility] ABSOLUTE LYMPHOCYTES 1.1 0.9 - 2.9 thou/cu mm 07/29/2025 11:24 AM [facility] ABSOLUTE MONOCYTES 0.5 <0.9 thou/cu mm 07/29/2025 11:24 AM CDT [facility] ABSOLUTE EOSINOPHILS 0.0 <0.5 thou/cu mm 07/29/2025 11:24 AM CDT [facility] ABSOLUTE BASOPHILS 0.0 <0.3 thou/cu mm 07/29/2025 11:24 AM CDT [facility] Blood BLOOD SPECIMEN / Unknown Venipuncture / Unknown 07/29/2025 11:11 AM CDT 07/29/2025 11:20 AM CDT us Jorge VICKERS HEMATOLOGY Fin al Result Performing Organization Address [facility]/ZIP Co de Phone Number [address] [phone] * TSH (07/29/2025 11:11 AM CDT) TSH 2.21 0.27 - 4.20 uIU/mL 07/29/2025 11:53 AM CDT [facility] Blood BLOOD SPECIMEN / Unknown Venipuncture / Unknown 07/29/2025 11:11 AM CDT 07/29/2025 11:20 AM CDT Narrative [facility] - 07/29/2025 11:53 AM CDT In Adults, TSH values between 5.00 and 10.00 uIU/ml do not necessarily indicate the presence of Hypothyroidism. Correlation with clinical findings such as presence of goiter and/or Thyroperoxidase (TPO) Antibody may be helpful. For more information please refer to MANI 2004; 291: 228-238. us Jorge VICKERS CHEMISTRY Fin al Result Performing Organization Address City/[facility]/ZIP Co de Phone Number [address] [address] * MAGNESIUM (07/29/2025 11:11 AM CDT) MAGNESIUM 1.9 1.6 - 2.6 mg/dL 07/29/2025 11:53 AM CDT [facility] Blood BLOOD SPECIMEN / Unknown Venipuncture / Unknown 07/29/2025 11:11 AM CDT 07/29/2025 11:20 AM CDT Jorge VICKERS CHEMISTRY Fin al Result Performing Organization Address City/[facility] Co de Phone Number [address] [address] * LIPASE (07/29/2025 11:11 AM CDT) Pathologist [facility] LIPASE 16.1 13.0 - 60.0 IU/L 07/29/2025 11:53 AM [facility] Blood BLOOD SPECIMEN / Unknown Venipuncture / Unknown 07/29/2025 11:11 AM CDT 07/29/2025 11:20 AM CDT Jorge VICKERS CHEMISTRY Fin al Result Performing Organization Address [facility] de Phone Number [address] [address] * (ABNORMAL) BASIC METABOLIC PANEL (07/29/2025 11:11 AM CDT) Only the most recent of2 resultswithin the time period is included. [facility] SODIUM 139 136 - 145 mmol/L 07/29/2025 11:53 AM [facility] POTASSIUM 5.2(H) 3.5 - 5.1 mmol/L 07/29/2025 11:53 AM [facility] CHLORIDE 102 98 - 107 mmol/L 07/29/2025 11:53 AM [facility] CO2,TOTAL 30(H) 22 - 29 mmol/L 07/29/2025 11:53 AM [facility] ANION GAP 7 5 - 18 07/29/2025 11:53 AM [facility] GLUCOSE 103(H) 70 - 99 mg/dL 07/29/2025 11:53 AM [facility] CALCIUM 9.8 8.8 - 10.4 mg/dL 07/29/2025 11:53 AM [facility] Comment: Reference ranges for this test were updated on 08/16/2024 to reflect our healthy population more accurately. Reference range changes are not retroactively applied to results, but previous results using the same methodology can be interpreted in the context of the new reference range. BUN 14 6 - 20 mg/dL 07/29/2025 11:53 AM T [facility] CREATININE 1.21(H) 0.70 - 1.20 mg/dL 07/29/2025 11:53 AM [facility] BUN/CREAT RATIO 12 10 - 11:53 AM [facility] eGFR 72(L) >90 mL/min/1. 73m2 07/29/2025 11:53 AM [facility] Comment:As of 2021, eG FR is calculated by the CKD-EPI creatinine equation without race adjustment. eGFR can be influenced by muscle mass, exercise, and diet. The reported eGFR is an estimation only and is only applicable if the renal function is stable. Blood BLOOD SPECIMEN / Unknown Venipuncture / Unknown 07/29/2025 11:11 AM CDT 07/29/2025 11:20 AM CDT us Jorge VICKERS CHEMISTRY Fin al Result [facility] [address] [address] * EKG 12 LEAD (07/29/2025 10:38 AM CDT) Only the most recent of2 resultswithin the time period is included. Interpretation Normal sinus rhythm Normal ECG When compared with ECG of 30-Jun-2025 10:24, No significant change was found BEYOND NOW Ventricular Rate 82 BPM BEYOND NOW Atrial Rate 82 BPM BEYOND NOW P-R Interval 154 ms BEYOND NOW QRS Duration 90 ms BEYOND NOW QT 366 ms BEYOND NOW QTc 427 ms BEYOND NOW P [place] 68 degrees BEYOND NOW R [place] 64 degrees BEYOND NOW T [place] 66 degrees BEYOND NOW 07/29/2025 10:3 8 AM CDT 07/30/2025 3:59 PM CDT us Jorge VICKERS EKG ORD Fin al Result BEYOND NOW [place], [place] * XR CHEST 2 VIEWS PA AND LATERAL (06/30/2025 11:41 AM CDT) Anatomical Region Laterality Modality CHEST, THORAX, Lung, HEART Digit al Radiography us Haily [facility]ICK[facility] Final Resul t * EXTRA TUBE BLUE (06/30/2025 11:32 AM CDT) Blood BLOOD SPECIMEN / Unknown Venipuncture / Unknown 06/30/2025 11:32 AM CDT 06/30/2025 11:35 AM CDT Haily VICKERS [facility]OR[facility] Final Resul t Performing Organization Address [facility] Co de Phone Number [address] [address] * D-DIMER,QUANTITATIVE (06/30/2025 11:32 AM CDT) D-DIMER,QUANTI TATIVE 0.22 See comment FEU mcg/mL 06/30/2025 12:37 PM CDT [facility] Blood BLOOD SPECIMEN / Unknown Venipuncture / Unknown 06/30/2025 11:32 AM CDT 06/30/2025 11:35 AM CDT Narrative [facility] - 06/30/2025 12:37 PM CDT The cut off value for exclusion of Deep Vein Thrombosis and / or Pulmonary Embolism is 0.50 FEU mcg/mL For patients greater than 50 years of age the upper limit is age dependent and was calculated with the formula: (PATIENT AGE x 0.01) FEU mcg/mL = Upper limit of normal range Haily VICKERS HEMATOLOGY Final Resul t Performing Organization Address [facility] Co de Phone Number [address] [phone] * (ABNORMAL) Lipid Panel (08/19/2023 7:38 PM LOCKSTITCH FRONT EDGE TAPE SEWER) CHOLESTEROL,TOTAL 162 100 - 199 mg/dL 08/20/2023 10:45 AM LOCKSTITCH FRONT EDGE TAPE SEWER [facility] Comment: Cholesterol, Total Reference Ranges Desirable <200 mg/dL Borderline 200-239 mg/dL High >=240 mg/dL TRIGLYCERIDES 182(H) <150 mg/dL 08/20/2023 10:45 AM LOCKSTITCH FRONT EDGE TAPE SEWER [facility] HDL CHOLESTEROL 52 >40 mg/dL 10:45 AM LOCKSTITCH FR[employer] EDGE TAPE SEWER [facility] NON-HDL CHOLESTEROL 110 <145 mg/dl 08/20/2023 10:45 AM LOCKSTITCH FRONT EDGE TAPE SEWER [facility] CHOL/HDL RATIO 3.12 <4.50 08/20/2023 10:45 AM LOCKSTITCH FRONT EDGE TAPE SEWER [facility] LDL CHOLESTEROL 74 <=130 mg/dL 08/20/2023 10:45 AM [facility] VLDL CHOLESTEROL 36(H) <=30 mg/dL 08/20/2023 10:45 AM LOCKSTITCH FRONT EDGE TAPE SEWER [facility] PROVIDER ORDERED STATUS RANDOM 08/20/2023 10:45 AM [facility] Blood BLOOD SPECIMEN / Unknown Venipuncture / Unknown 08/19/2023 7:38 PM LOCKSTITCH FRONT EDGE TAPE SEWER 08/19/2023 7:39 PM LOCKSTITCH FRONT EDGE TAPE SEWER Vanessa Mari NP CHEMISTRY Final Res ult [facility] [address] [place] [address], * COLONOSCOPY (07/29/2021 1:37 PM CDT) 07/29/2021 1:37 PM CDT Narrative Transcriptions Rocio Kaiser MD - 07/29/2021 3:01 PM CDT Patient Name: Alon Jaimes Procedure Date: 07/29/2021 Gender: Male Date of : 1975 Admit Type: Ambulatory Procedure: Colonoscopy Proceduralist: Rocio Jeronimo MD Referring MD: Anthony Carpenter Indications/Pre-Op Diagnosis: Generalized abdominal pain Medications: Propofol per Anesthesia Procedure Description: The procedure, indications, potential complications, (bleeding, perforation, infection, adverse medication reaction, missed lesionsor polyps) and alternatives available were explained to the patient, who appeared to understand and indicated this. Opportunity for questionswas provided and informed consent obtained. The colonoscope was passed through the anus and advanced to theterminal ileum, with identification of the appendiceal orifice and IC valve.The colonoscopy was somewhat difficult due to a tortuous colon. Thepatient tolerated the procedure well. The quality of the bowel preparationwas good. Complications: No immediate complications. Estimated Blood Loss & Specimen: Estimated blood loss: none. Specimen collected: None Findings: The perianal and digital rectal examinations were normal. The sigmoid colon was significantly tortuous. The exam was otherwise without abnormality on direct and retroflexion views. Impressions/Post-Op Diagnosis: - Tortuous colon. - The examination was otherwise normal on direct and retroflexionviews. - No specimens collected. Recommendation: - Repeat colonoscopy in 7-10 years for surveillance based on clinical status at that time. Moderate Sedation: See the other procedure note for documentation of moderate sedationwith intraservice time. Rocio Jeronimo MD 07/29/2021 3:01:26 PM This report has been signed electronically. Note Initiated On: 07/29/2021 1:37 PM Rocio Choe MD PROCEDURE ORD Fin al Result from Last 3 Months or Most Recently Relevant to Health Maintenance Insurance [facility] [place] REFERRAL Member Subscriber Plan / Payer (Ef fective 2025-Present) Name:Alon Jaimes Relation to Subscriber:Self Name:Alon Jaimes Payer ID:Not on file Group ID:Not on file Type:Not on file Address: FOR [facility] INTERNAL TRACKING [facility] [place] [address] [employer] [id number] [facility] [place] [id number] Advance Directives * Full Code (Latest Code Status on File) Date Activated Date Inactivated Comments 08/20/2023 3:08 AM 09/04/2023 2:28 PM Question Answer Comments Code Status Discussion: Not Discussed * Full Code Date Activated Date Inactivated Comments 01/23/2022 11:08 AM 01/24/2022 7:42 PM Question Answer Comments Code Status Discussion: Reviewed Preferences * Full Code Date Activated Date Inactivated Comments 07/29/2021 7:06 AM 07/29/2021 6:55 PM Question Answer Comments Code Status Discussion: Not Discussed * Full Code Date Activated Date Inactivated Comments 04/08/2021 6:01 AM 04/08/2021 10:46 AM Question Answer Comments Code Status Discussion: Not Discussed * Full Code Date Activated Date Inactivated Comments 08/08/2019 9:54 AM 08/08/2019 5:17 PM Care Teams Senior Accountant Analyst Relationship Specialty Start Date End Date Anthony Carpenter, SUPERVISOR COIN MACHINE [address] [place] [address] PCP - General Nurse Practitioner 02/07/20
--- OUTSIDE RECORDS SUMMARY | 2025-08-09 11:55 | XMS_ITS | Clinical Summary ---
Author Organization [facility] Address [address] [place] [address] Care Team Providers Care Outside Event Sales Specialist Name Role Phone No Ref-Primary, Physician Primary Care Provider Allergies Active Allergy Reactions Criticality Noted Date Comments Ketorolac Tromethamine Hives 12/26/2011 Latex 12/26/2011 Latex 04/18/2013 Penicillin G Nausea and Vomiting 12/26/2011 Penicillins Nausea and Vomiting 04/18/2013 Adhesive Tape Rash Low 05/10/2013 And skin breaks out. Medications amphetamine-de xtroamphetamin e (ADDERALL) 10 MG tablet Take 10 mg by mouth daily Active acetaminophen (TYLENOL) 325 MG tabletIndicati ons:Acute bilateral low back pain with bilateral sciatica Take 3 tablets (975 mg) by mouth every 8 hours 2 Active meloxicam (MOBIC) 15 MG tabletIndicati ons:Acute bilateral low back pain with bilateral sciatica Take 1 tablet (15 mg) by mouth daily 30 tablet 1 2 Active methocarbamol (ROBAXIN) 500 MG tabletIndicati ons:Acute bilateral low back pain with bilateral sciatica Take 1 tablet (500 mg) by mouth every 6 hours as needed for muscle spasms 60 tablet 2 Active oxyCODONE (ROXICODONE) 10 MG tabletIndicati ons:Acute bilateral low back pain with bilateral sciatica Take 0.5-1 tablets (5-10 mg) by mouth every 6 hours as needed for moderate to severe pain 12 tablet 2 Active pantoprazole (PROTONIX) 40 MG EC tabletIndicati ons:Acute bilateral low back pain with bilateral sciatica Take 1 tablet (40 mg) by mouth every morning (before breakfast) 90 tablet 1 2 Active pregabalin (LYRICA) 75 MG capsuleIndicat ions:Acute bilateral low back pain with bilateral sciatica Take 1 capsule (75 mg) by mouth 3 times daily 90 capsule 1 2 Active sertraline (ZOLOFT) 50 MG tabletIndicati ons:Acute bilateral low back pain with bilateral sciatica Take 0.5 tablets (25 mg) by mouth daily For 2 weeks and then increase to 50 mg daily 90 tablet 1 2 Active gabapentin (NEURONTIN) 100 MG capsule Take 500 mg by mouth 3 times daily 022 Discontinued Active Problems Problem Noted Date Diagnosed Date Leg weakness, bilateral 04/16/2022 Acute bilateral low back pain with bilateral sci atica 04/16/2022 CARDIOVASCULAR SCREENING; LDL GOAL LESS THAN 160 05/13/2013 Overview (05/13/2013): Score not calculated. Missing: Total Cholesterol, HDL Depression, major 10/05/2012 Social History Tobacco Use Types Packs/Day Years Used Date Smoking Tobacco: Former Smokeless Tobacco: Current Alcohol Use Standard Drinks/Week Comments Yes 0 (1 standard drink = 0.6 oz pur e alcohol) rare Adolescent Education Answer Date Record ed Getting School Help Needed Not on file 07/19 Sex and Gender Information Value Date Recorded Sex Assigned at Not on file Legal Sex Male 4:08 AM INSTRUMENT TESTER Gender Identity Not on file Sexual Orientation Not on file Last Filed Vital Signs Vital Sign Reading Time Taken Comments Blood Pressure 148/98 06/05/2024 6:48 PM CDT Pulse 85 06/05/2024 6:44 PM CDT Temperature 36.7 C (98 F) 06/05/2024 6:44 PM CDT Respiratory Rate 24 06/05/2024 6:44 PM CDT Oxygen Saturation 100% 06/05/2024 6:48 PM CDT Inhaled Oxygen Concentration - - Weight 70.3 kg (155 lb) 06/05/2024 6:44 PM CDT Height 165.1 cm (5' 5) 06/05/2024 6:44 PM CDT Body Mass Index 25.79 06/05/2024 6:44 PM CDT Plan of Treatment Health Maintenance Due Date Last Done Comments ADVANCE CARE PLANNING 1973 ANNUAL REVIEW OF HM ORDERS 1973 CT COLONOGRAPHY 1973 DEPRESSION ACTION PLAN 1973 FIT 1973 FLEX SIG 1973 PHQ-9 1973 sDNA (Cologuard) 1973 YEARLY PREVENTIVE VISIT 1976 HIV SCREENING 1988 HEPATITIS C SCREENING 1991 HEPATITIS B VACCINE (1 of 3 - 19+ 3-dose series) 1992 LIPID 2013 LUNG CANCER SCREENING 2023 09/04/2021 , 12/17/2020, 12/23/2013 PNEUMOCOCCAL VACCINE 50+ YEARS (1 of 1 - PCV) 2023 ZOSTER VACCINE (1 of 2) 2023 DIABETES SCREENING 04/16/2025 04/16/2022, 0 12/22/2013, 05/10/2013, Additional history exists COVID-19 VACCINE (1 - 2024- season) 2025 INFLUENZA VACCINE (#1) 2025 DTAP/TDAP/TD VACCINE (8 - Td or Tdap) 12/25/2030 12/25/2020, 04/11/2012, 12/10/1990, Additional history exists COLONOSCOPY 07/29/2031 07/29/2021 COLORECTAL CANCER SCREENING 07/29/2031 HPV VACCINE (No Doses Required) Completed MENINGITIS VACCINE Aged Out No longer eligible based on patient's age to complete this topic Procedures Procedure Name Priority Date/Time Associated Diagnosis Comments BASIC METABOLIC PANEL STAT 04/16/2022 12:[address] CHEST W CONTRAST STAT 09/04/2021 1 0:19 AM INSTRUMENT TESTER from Last 3 Months or Most Recently Relevant to Health Maintenance Results * (ABNORMAL) Basic metabolic panel (04/16/2022 12:02 PM CDT) Sodium 140 133 - 144 mmol/L 04/16/2022 12:59 PM CDT [facility] Potassium (POCT) 4.1 3.4 - 5.3 mmol/L 04/16/2022 12:59 PM CDT [facility] Chloride (POCT) 104 94 - 109 mmol/L 04/16/2022 12:59 PM CDT [facility] Carbon Dioxide (CO2) (POCT) 31 20 - 32 mmol/L 04/16/2022 12:59 PM CDT [facility] Anion Gap (POCT) 5 3 - 14 mmol/L 04/16/2022 12:59 PM CDT [facility] Urea Nitrogen (POCT) 10 7 - 30 mg/dL 04/16/2022 12:59 PM CDT [facility] Creatinine 0.78 0.66 - 1.25 mg/dL 04/16/2022 12:59 PM CDT [facility] Calcium 9.1 8.5 - 10.1 mg/dL 04/16/2022 12:59 PM CDT [facility] Glucose (POCT) 101(H) 70 - 99 mg/dL 04/16/2022 12:59 PM CDT [facility] GFR Estimate >90 >60 mL/min/1.7 3m2 04/16/2022 12:59 PM CDT [facility] Comment:Effective September 122020 eGFRcr in adults is calculated using the 2020 CKD-EPI creatinine equation which includes age and gender (Obi et al., NEJM, DOI: 10.1056/SQWUac9267894) Blood BLOOD SPECIMEN / Unknown Venipuncture / Unknown 04/16/2022 12:02 PM CDT 04/16/2022 12:14 PM CDT us Darron Heredia MD LAB - BLOOD ORDERABLES Fin al Result [facility] [address] Lab (1st floor, no room number) [place] [address], [facility] [phone] * Chest CT w IV contrast only, TRAUMA / DISSECTION (09/04/2021 10:19 AM INSTRUMENT TESTER) Anatomical Region Laterality Modality Chest, SUBRAD CT BODY, UMP CT CHEST, RAD CT Computed Tomography Impressions 09/04/2021 10:32 AM INSTRUMENT TESTER IMPRESSION: 1. No acute or traumatic findings in the chest. No acute rib or clavicle fractures. MARIA A TRISTAN MD Narrative 09/04/2021 10:[address] CHEST W CONTRAST 09/04/2021 10:19 AM CLINICAL HISTORY: Right clavicle and rib pain, fall one week ago TECHNIQUE: CT chest with IV contrast. Multiplanar reformats were obtained. Dose reduction techniques were used. CONTRAST: 70mL Isovue-370 COMPARISON: 12/23/2013 and shoulder radiographs earlier today FINDINGS: LUNGS AND PLEURA: Lungs are clear. No pleural effusion. Stable small linear nodular opacities along the left major fissure measuring up to 3 mm, benign due to stability (series 4, image 155). MEDIASTINUM/AXILLAE: No lymphadenopathy. No thoracic aortic aneurysm. No coronary artery calcifications. No pericardial effusion. UPPER ABDOMEN: No significant finding. MUSCULOSKELETAL: No acute or displaced fractures. Procedure Note Maria A Tristan MD - 09/04/2021 CT CHEST W CONTRAST 09/04/2021 10:19 AM CLINICAL HISTORY: Right clavicle and rib pain, fall one week ago TECHNIQUE: CT chest with IV contrast. Multiplanar reformats were obtained. Dose reduction techniques were used. CONTRAST: 70mL Isovue-370 COMPARISON: 12/23/2013 and shoulder radiographs earlier today FINDINGS: LUNGS AND PLEURA: Lungs are clear. No pleural effusion. Stable small linear nodular opacities along the left major fissure measuring up to 3 mm, benign due to stability (series 4, image 155). MEDIASTINUM/AXILLAE: No lymphadenopathy. No thoracic aortic aneurysm. No coronary artery calcifications. No pericardial effusion. UPPER ABDOMEN: No significant finding. MUSCULOSKELETAL: No acute or displaced fractures. IMPRESSION: 1. No acute or traumatic findings in the chest. No acute rib or clavicle fractures. MARIA A TRISTAN MD Harman Fuentes DO IMG CT ORDERABLES Final Result from Last 3 Months or Most Recently Relevant to Health Maintenance Insurance [address] [place] [address] [employer] Advance Directives For more information, please contact: [phone] * Full Code (Latest Code Status on File) Date Activated Date Inactivated Comments 04/16/2022 10:35 PM 04/18/2022 8:42 PM All basic and advanced life-sustaining interventions are performed as appropriate Question Answer Comments Code status determined by: Discussion with rishie nt/ legal decision maker * Full Code Date Activated Date Inactivated Comments 10/05/2012 8:58 PM 10/19/2012 12:22 PM Care Teams Outside Event Sales Specialist Relationship Specialty Start Date End Date No Ref-Primary, Physician PCP - General 04/16/22
--- OUTSIDE RECORDS SUMMARY | 2025-08-09 11:55 | XMS_ITS | Encounter Summary ---
Author Organization [facility] Address [address] [place] [address] Care Team Providers Care Geography Department Chair Name Role Phone Anthony Carpenter APRN, C.N.P. Primary Care Provid er Encounter Details Date Type Department Care Team (Late st Contact Info) Description 06/30/2025 Clinical Communication Department of Family Medicine, [facility], in [place], [place] [address] [phone] Anthony Carpenter APRN, C.N.P. [address] [phone] Social History Tobacco Use Types Packs/Day [...] on file Legal Sex Male 10:19 AM ACCESS DIRECTOR Gender Identity Not on file Sexual Orientation Not on file Occupation Industry Job Start Date Job End Date Not on file Not on file Not on file Not on file documented as of this encounter Plan of Treatment Upcoming Encounters Date Type Department Care Team (Late st Contact Info) Description 08/14/2025 11:00 AM ACCESS DIRECTOR Office Visit Department of Family Medicine, [facility], in [place], [place] [address] [phone] Cat Dave M.D. [address], [place] [address] documented as of this encounter Visit Diagnoses Diagnosis Anxiety documented in this encounter Additional Health Concerns Assessment Noted Time PHQ-9 Depression Total Score: 9 05/05/20 25 2:56 PM CDT documented as of this encounter Care Teams Geography Department Chair Relationship Specialty Start Date End Date Anthony Carpenter, ELA, C.N.P. [address], [place] [phone] PCP - General Family Medicine 08/01/19 documented as of this encounter
--- OUTSIDE RECORDS SUMMARY | 2025-08-09 11:56 | XMS_ITS | Clinical Summary ---
Author Organization [facility] Address [address] [place] [address] Care Team Providers Care Nuclear Technician Name Role Phone Unavailable Primary Care Provider Unavailabl e Source Comments This disclosure is being made pursuant to the [facility] program and maynot contain all information available regarding this patient.[facility] Allergies Active Allergy Reactions Criticality Noted Date Comments Penicillins Nausea Only Medium 12/24/2024 Ketorolac Tromethamine Nausea Only Low 12/24/2024 Tramadol Nausea Only Low 12/24/2024 Medications fluoxetine (PROZAC) 40 MG capsule Take 40 mg by mouth daily. Active Social History Tobacco Use Types Packs/Day Years Used Date Smoking Tobacco: Never Assessed Passive Smoke Exposure: Past Tobacco Cessation:Counseling Given: Not Answered Alcohol Use Standard Drinks/Week Comments Yes 0 (1 standard drink = 0.6 oz pur e alcohol) Sex and Gender Information Value Date Recorded Sex Assigned at Not on file Legal Sex Male 1:22 AM CDT Gender Identity Not on file Sexual Orientation Not on file Last Filed Vital Signs Vital Sign Reading Time Taken Comments Blood Pressure 131/79 12/24/2024 11:25 AM CDT Pulse 68 12/24/2024 11:25 AM CDT Temperature 36.6 C (97.8 F) 12/24/2024 11:25 AM CDT Respiratory Rate 20 12/24/2024 11:25 AM CDT Oxygen Saturation 97% 12/24/2024 11:25 AM CDT Inhaled Oxygen Concentration - - Weight 63.3 kg (139 lb 9.6 oz) 12/24/2024 2:39 A M CDT Height 162.6 cm (5' 4) 12/24/2024 1:26 AM CDT Body Mass Index 23.96 12/24/2024 1:26 AM CDT Plan of Treatment Health Maintenance Due Date Last Done Comments CT Colonography 1973 Colonoscopy 1973 Colorectal Cancer Screening 1973 Fecal DNA Test 1973 Lab-Cholesterol Screening 1973 Lab-Hepatitis C Screening 1973 Sigmoidoscopy 1973 Annual Wellness Visit 1991 Hepatitis B Vaccine (1 of 3 - 19+ 3-dose series) 1992 Tetanus/Pertussis Vaccine Teen/Adult (1 - Tdap) 1992 FOBT/FIT 1993 Pneumococcal Vaccines 50+ (1 of 1 - PCV) 2023 Zoster (Shingles) Vaccine 50 + (1 of 2) 2023 COVID-19 Vaccine (1 - 2023-2 5 season) 2025 Influenza Vaccine (#1) 2025 RSV Adult (1 - 1-dose 75+ series) 2048 HIB Vaccine Aged Out No longer eligi ble based on patient's age to complete this topic HPV Vaccine (9-26yo & Shared Decision 27-45yo) Aged Out No longer eligible b ased on patient's age to complete this topic Hepatitis A Vaccine Aged Out No longe r eligible based on patient's age to complete this topic IPV Vaccine Aged Out No longer eligi ble based on patient's age to complete this topic Meningococcal Conjugate Vaccine Aged Out No longer eligible based on patient's age to complete this topic RSV < 20 Months Aged Out No longer el igible based on patient's age to complete this topic
--- OUTSIDE RECORDS SUMMARY | 2025-08-09 11:56 | XMS_ITS | Clinical Summary ---
Author Organization [facility] Address [address] [place] [address] Care Team Providers Care Rodding Machine Tender Name Role Phone Anthony Carpenter APRN, CNP Primary Care Prov ider Source Comments You are receiving this document as you are listed as the primary care provider,follow-up provider, or the patient has been referred to you for consultation.This is in compliance with the Medicare andMedicaid EHR Incentive Program,which states Providers who transition their patient to another setting of careor provider of care or refers their patient to another provider of care shouldprovide summary care record for each transition of care or referral. [facility] Allergies Active Allergy Reactions Criticality Noted Date Comments Penicillins Rash 05/28/2013 Ketorolac Tromethamine Rash 05/28/2013 Medications QUEtiapine Fumarate (SEROQUEL OR) Active amitriptyline (AKA ELAVIL) 25 MG tablet Take 1 Tab by mouth daily at bedtime. 30 Tab 0 06/01/2013 Active oxyCODONE (ROXICODONE) 5 MG immediate release tablet Take 1 Tablet by mouth every 4 hours as needed for Pain. 10 Tablet 08/28/2021 Active Active Problems Problem Noted Date Diagnosed Date Moderate episode of recurrent major depressive d isorder 11/18/2024 Gastric outlet obstruction 08/30/2023 Alcohol use disorder, severe, dependence 023 Alcohol withdrawal 08/20/2023 Chronic right shoulder pain 08/20/2023 GERD (gastroesophageal reflux disease) Methamphetamine use 08/20/2023 Mild persistent asthma 10/30/2022 ADHD 01/23/2022 Acute back pain with sciatica 01/23/2022 Depression 01/23/2022 Shoulder pain 03/16/2019 Nontraumatic complete tear of rotator cuff, left 12/28/2018 Anxiety 05/13/2017 Overview (04/26/2025): Per External Records Major depressive disorder with single episode Social History Tobacco Use Types Packs/Day Years Used Date Smoking Tobacco: Never Humiliation, Afraid, Rape, and Kick questionnair e Answer Date Recorded Within the last year, have y ou been afraid of your partner or ex-partner? No 04/26/2025 Within the last year, have y ou been humiliated or emotionally abused in other ways by your partner or ex-partner? No Within the last year, have y ou been kicked, hit, slapped, or otherwise physically hurt by your partner or ex-partner? No 04/26/2025 Within the last year, have y ou been raped or forced to have any kind of sexual activity by your partner or ex-partner? No 04/26/2025 Sex and Gender Information Value Date Recorded Sex Assigned at Not on file Legal Sex Male 2:23 PM CDT Gender Identity Not on file Sexual Orientation Not on file Last Filed Vital Signs Vital Sign Reading Time Taken Comments Blood Pressure 129/81 04/26/2025 11:53 PM CDT Pulse 89 04/26/2025 11:53 PM CDT Temperature 36.6 C (97.9 F) 04/26/2025 11:09 PM CDT Respiratory Rate 17 04/26/2025 11:53 PM CDT Oxygen Saturation 96% 04/26/2025 11:53 PM CDT Inhaled Oxygen Concentration - - Weight 72.6 kg (160 lb) 04/26/2025 11:09 PM CDT Height 162.6 cm (5' 4) 04/26/2025 11:09 PM CDT Body Mass Index 27.46 04/26/2025 11:09 PM CDT Plan of Treatment Health Maintenance Due Date Last Done Comments Colon Cancer Screening Plan Due 1973 Hep C Screening (Preventive Services) 1973 PSA Screening Discussion 1973 HIV Screening (Preventive Services) 1989 Adult Preventive Visit 1991 HepB Vaccine (1) 1992 Pneumococcal Vaccine 50+ Yrs (1 of 2 - PCV) 1992 Cholesterol 2008 Zoster/Shingles Vaccine (1 of 2) 2023 COVID-19 Vaccine (1 - season) 2025 Influenza Vaccine (#1) 2025 Diabetes Screening- (based on age and BMI) 08/19/2026 08/19/2023 DTaP/Tdap/Td Vaccine (7 - Tdap) 12/25/2030 12/25/2020, 12/10/1990, 07/12/1975, Additional history exists RSV Vaccine (1 - 1-dose 75+ series) 2048 IPV (Polio) Vaccine Completed 07/12/1975, 10/12/1974, 04/11/1974, Additional history exists HepA Vaccine Aged Out No longer eligi ble based on patient's age to complete this topic Hib Vaccine Aged Out No longer eligi ble based on patient's age to complete this topic MCV4 Vaccine Aged Out No longer eligi ble based on patient's age to complete this topic Meningococcal B Vaccine Aged Out No l onger eligible based on patient's age to complete this topic Medical Devices Implanted Type Area Unclaimed Property Officer Device Identifier Shelf Expiration Date Model / Serial / Lot K-Wire .054 - [id number] Implanted:Qty: 1 on 05/30/2013 by Robel Pascual MD at [facility] DEVICE Left: HAND [employer] 71-104 / / K-Wire Std .045 - [id number] Implanted:Qty: 1 on 05/30/2013 by Robel Pascual MD at [facility] DEVICE Left: HAND [employer] [id number] / / Advance Directives * Full Code (Latest Code Status on File) Date Activated Date Inactivated Comments 05/30/2013 2:34 AM 06/02/2013 1:58 AM Care Teams Rodding Machine Tender Relationship Specialty Start Date End Date Anthony Carpenter, HARD HAT DIVER, TALENT ACQUISITION ASSISTANT [address] [place] [phone] PCP - General Nurse Practitioner 08/28/21
--- OUTSIDE RECORDS SUMMARY | 2025-08-09 11:56 | XMS_ITS | Clinical Summary ---
Author Organization [facility] Address [address] [place] [address] Care Team Providers Care Leather Stretcher Name Role Phone Anthony Carpenter APRN C.N.P. Primary Care Provid er Source Comments Patient records contain information from all sites at [facility]. For routine questions regarding patient records, call [phone] during business hours, M-F 8:00 AM - 5:00 PM Central Time. Record requests for emergency care only can be directed to [phone] at any time.[facility] Allergies Active Allergy Reactions Criticality Noted Date Comments Adhesive Tape-Silicones Rash Medium 02/26/2017 Gadolinium-Containing Contrast Media Rash Medium 09/17/2018 Ketorolac Itching Medium 04/18/2014 Latex Rash Medium 04/18/2014 Penicillins GI intolerance Medium 04/18/2014 Tramadol Rash Medium 03/22/2014 Medications * This document contains information received from the source organization and may not represent a complete record from that organization. acetaminophen (for_TYLENOL) 500 mg tablet Take 1,000 mg by mouth. Active hydrOXYzine (Atarax) 50 mg tablet Take 1 tablet by mouth 3 (three) times a day with meals. 01/15/20 25 Active ARIPiprazole (Abilify) 5 mg tabletIndicatio ns:Anxiety Take 1 tablet (5 mg total) by mouth at bedtime. 90 tablet 05/05/20 25 Active omeprazole (PriLOSEC) [address] capsuleIndicati ons:Gastroesoph ageal Reflux Disease Without Esophagitis Take 1 capsule (20 mg total) by mouth daily. 90 capsule 3 05/05/20 Active LORazepam (Ativan) 1 mg tablet Take 1 tablet (1 mg total) by mouth 2 (two) times a day as needed for anxiety for up to 3 days. 5 tablet 08/04/20 25 Active nitrofurantoin monohydrate (Macrobid) 100 mg capsuleIndicati ons:Bladder Disorder Take 1 capsule (100 mg total) by mouth 2 (two) times a day. 10 capsule 05/05/20 25 025 Discontinued LORazepam (Ativan) 1 mg tabletIndicatio ns:Anxiety Take 1 tablet (1 mg total) by mouth 2 (two) times a day as needed for anxiety for up to 5 days. 10 tablet 06/30/20 025 Discontinued(Du plicate order) Active Problems Problem Noted Date Diagnosed Date Alcohol Abuse With Intoxication Unspecified 04/12 Assessment & Plan (05/05/2025 5:48 PM CDT): Reports not using any alcohol at this time Depression Major Recurrent Moderate 11/18/2024 Asthma Mild Persistent 10/30/2022 Depression 01/23/2022 Pain Shoulder Left 03/16/2019 Tear Rotator Cuff Complete Non Trauma Left 12/28 Lesion Superior Glenoid Labrum Initial Left 04/11 Attention Deficit With Hyperactivity Disorder Anxiety 05/13/2017 Overview (09/28/2017): Per External Records Assessment & Plan (05/05/2025 5:48 PM CDT): Chronic anxiety exacerbated by stress, leading to panic attacks, chest pain and dyspnea. Multiple ED visits due to panic attacks. Comprehensive work up had been consistently negative. Previous medications include fluoxetine, Ativan, Seroquel, hydroxyzine, olanzapine, and propranolol. Patient states that these regimen had been ineffective, and he discontinued fluoxetine most recently due to perceived ineffectiveness, although it is not clear if he is consistent in taking them. He endorses prior history of substances but not recently and he does get drug tested at work regularly with most recent one being today. We decided to try Abilify is suggested to manage anxiety and improve sleep, with an increased dosage of Ativan. Emphasis on consistent medication use for therapeutic effects and safe usage of benzodiazepine. Recommended follow up with PCP within 1 month - Prescribe Abilify for anxiety and sleep. - Increase Ativan dosage to 1 mg. - Emphasize consistent medication use. - Consider monthly follow-up to monitor medication effectiveness. Orders: ARIPiprazole (Abilify) 5 mg tablet; Take 1 tablet (5 mg total) by mouth at bedtime. LORazepam (Ativan) 1 mg tablet; Take 1 tablet (1 mg total) by mouth 2 (two) times a day as needed for anxiety for up to 5 days. Major Depressive Disorder Single Episode Unspeci fied 10/05/2012 Resolved Problems Problem Noted Date Diagnosed Date Resolved Date Pain Generalized Abdominal 04/03/2021 0 04/03/2021 Pain Low Back Unspecified 09/29/2017 Dizziness 06/04/2016 11/11/2017 Overview (09/28/2017): Persistent postural perceptual dizziness Headache Daily 06/04/2016 11/11/2017 Presbyopia 05/23/2016 11/11/2017 Alcohol Moderate Or Severe U se Disorder (Dependence) Uncomplicated 04/17/2014 11/11/2017 Encounters Date Type Department Care Team Description 08/04/2025 10:52 AM CDT - 08/04/2025 12:32 PM CDT Emergency [facility] [address] [place] [address] Daniel Hayden P.A.-Caterina., M.S. Anxiety (Primary Dx) Discharge Disposition: Home or Self Care 08/01/2025 6:46 PM CDT - 08/01/2025 8:08 PM CDT Emergency [facility] [address] [place] [address] David Villalba M.D. Anxiety (Primary Dx) Discharge Disposition: Home or Self Care 07/29/2025 10:34 AM CDT - 07/29/2025 11:59 PM CDT Emergency [facility] [address] [place] [address] Discharge Disposition: Home or Self Care 06/30/2025 10:16 AM CDT - 06/30/2025 11:59 PM CDT Emergency [facility] [address] [place] [address] Other Chest Pain (Primary Dx) Discharge Disposition: Home or Self Care 06/30/2025 Clinical Communication Department of Family [facility], [facility], in [place], [place] [address] [place] [address] Anthony Carpenter, ELA, C.N.P. 06/12/2025 8:23 PM CDT - 06/12/2025 10:05 PM CDT Emergency [facility] Emergency Department [address] [place] [phone] Haily Coronado M.D. Crushing Injury Right Little Finger Initial (Primary Dx) Discharge Disposition: Home or Self Care from Last 3 Months Immunizations Immunization Administration Dates Next Due DTaP (Infanrix, [employer]edia) 12/10/1990,10/1974,10/12/1974,04/11/1974,1973 MMR 06/27/1992,08/10/1979 Polio, Unspecified 07/12/1975,10/12/1974, 974,03/12/1974 Td (Adult), adsorbed 04/11/2012 Tdap 12/25/2020 Family History Medical History Relation Name Comments Alcohol abuse Father Asthma Mother Relation Name Status Comments Father Mother Social History Tobacco Use Types Packs/Day Years Used Date Smoking Tobacco: Never Passive Smoke Exposure: Never Smokeless Tobacco: Current Chew Tobacco Cessation:Ready to Q uit: Not Asked; Counseling Given: Not Answered Comments:1 can per week. Advised to quit. Patient stated he is trying [...] on file Legal Sex Male 10:19 AM COLOR GRINDER Gender Identity Not on file Sexual Orientation Not on file Occupation Industry Job Start Date Job End Date Not on file Not on file Not on file Not on file Last Filed Vital Signs [...] 2.3 oz) 08/04/2025 10:55 AM CDT Height 163.4 cm (5' 4.33) 05/05/2025 2:55 PM CD T Body Mass Index 27.72 05/05/2025 2:55 PM CDT Plan of Treatment Upcoming Encounters Date Type Department Care Team (Late st Contact Info) Description 08/14/2025 11:00 AM COLOR GRINDER Office Visit Department of Family Medicine, [facility], in [place], [place] [address] [address] Cat Dave M.D. [address] [place] [address] Health Maintenance Due Date Last Done Comments CT Colonography 1973 Cologuard 1973 FIT 1973 HIV Screening 1973 Hepatitis C Screening 1973 Hepatitis B Vaccines (1 of 3 - 19+ 3-dose series) 1992 Pneumococcal vaccine (50+ ye ars) (1 of 2 - PCV) 1992 Tobacco Cessation counseling 05/08/2023 05/08/2022 Zoster Vaccines (1 of 2) 2023 COVID-19 Vaccine (1 - 2024-2 6 season) 2025 Influenza Vaccine (#1) 2025 Depression Monitoring (PHQ-9) 09/05/2025 05/05/2025 Fasting Glucose for Diabetes Screening 08/01/2028 08/01/2025, 07/29/2025, 06/30/2025, Additional history exists Lipid (Cholesterol) Screening 08/19/2028 08/19/2023, 09/10/2016 DTaP,Tdap,and Td Vaccines (8 - Td or Tdap) 12/25/2030 12/25/2020, 04/11/2012, 12/10/1990, Additional history exists Colonoscopy 07/29/2031 07/29/2021 Colorectal Cancer Screening 07/29/2031 IPV Vaccines Completed 07/12/1975, 10/1974, 04/11/1974, Additional history exists Depression Monitoring (PHQ-9 for quality tracking) Completed 05/05/2025, 11/18/2024 Medical Devices Implanted Type Area National Van Truck Driver Device Identifier Shelf Expiration Date Model / Serial / Lot Shoulder Implant Shoulder Implant Left: Shoulder Procedures Procedure Name Priority Date/Time Associated Diagnosis Comments CBC WITH DIFFERENTIAL, B STAT 08/01/2025 7:07 PM CDT TROPONIN T, BASELINE, 5TH GEN, P STAT 08/01/2025 7:07 PM CDT BASIC METABOLIC PANEL, S/P STAT 08/01/2025 7:07 PM CDT ECG STAT 08/01/2025 6:48 PM CDT DX CHEST AP OR PA AND LATERAL 2 VIEWS RAD - Semiurgent (Fast; most ED patients; some inpatients) 06/30/2025 11:41 AM CDT DX HAND RIGHT 3+ VIEWS RAD - Semiurgent (Fast; most ED patients; some inpatients) 06/12/2025 8:52 PM CDT LIPID PANEL, S Routine 09/10/2016 9:39 AM COLOR GRINDER from Last 3 Months or Most Recently Relevant to Health Maintenance Results * Troponin T, Baseline with 2 Hour/6 Hour Reflex Biomarker Panel (08/01/2025 7:07 PM CDT) Pathologist [facility] Troponin T, Baseline, 5th gen <6 <=15 ng/L 08/01/2025 7:35 PM CDT MNMN Blood (Blood, Venous) 08/01/2025 7:07 PM CDT 08/01/2025 7:09 PM CDT us David Villalba M.D. LAB BLOOD TROPONIN Final Result [facility] [address] [place] [address], [facility] [place] [address] * CBC with Differential, Blood (08/01/2025 7:07 [...] M.D. LAB BLOOD ADD-ON Final Re sult [facility] [address] [place] [address], [facility] in [place] [address] [place] [address] * Basic Metabolic Panel (08/01/2025 7:07 PM CDT) Potassium, P 3.9 3.6 - 5.2 mmol/L [...] M.D. LAB BLOOD ADD-ON Final Re sult [facility] [address] [place] [address], [facility] [place] [address] * ECG 12 Lead (08/01/2025 6:48 PM CDT) Ventricular Rate ECG/Min 74 BPM MUSE WI Interval 150 ms MUSE QRSD Interval 86 ms MUSE QT Interval 372 ms MUSE QTC Interval 412 ms MUSE P [place] 30 degrees MUSE R [place] 31 degrees MUSE T Wave [place] 39 degrees MUSE 08/01/2025 6:48 PM CDT 08/02/2025 9:59 AM CDT Impressions MUSE - 08/02/2025 9:59 AM CDT Normal sinus rhythm Normal ECG No previous ECGs available Confirmed by Gustavo Rios ([id number]) on 08/02/2025 9:59:15 AM Narrative Procedure Note Gustavo Rios M.B.BPatriciaS. - 08/02/2025 IMPRESSION: Normal sinus rhythm Normal ECG No previous ECGs available Confirmed by Gustavo Rios ([id number]) on 08/02/2025 9:59:15 AM us David Villalba M.D. ECG ORDERABLES Final Res ult MUSE NA * DX Chest AP or PA and [...] IMG DIAGNOSTIC IMAGING PRO CEDURES Final Result * DX Hand Right 3+ Views (06/12/2025 8:52 PM CDT) Anatomical Region Laterality Modality Upper Extremity, Hand, Muscu loskeletal RST LOS, Musculoskeletal ARZ LOS, Muskuloskeletal FLA LOS Right Digit al Radiography Impressions 06/12/2025 9:31 PM CDT No acute findings. Narrative 06/12/2025 9:31 PM CDT EXAM: DX HAND RIGHT 3+ VIEWS COMPARISON: 10/22/2021 FINDINGS: The osseous structures and joint spaces are normally aligned and well maintained, without evidence of fracture, dislocation or significant degeneration. The surrounding soft tissues are normal. Procedure Note David Palomino M.D. - 06/12/2025 EXAM: DX HAND RIGHT 3+ VIEWS COMPARISON: 10/22/2021 FINDINGS: The osseous structures and joint spaces are normally aligned andwell maintained, without evidence of fracture, dislocation or significantdegeneration. The surrounding soft tissues are normal. IMPRESSION: No acute findings. Haily Coronado M.D. [facility] DIAGNOSTIC IMAGING [facility] Final Result * (ABNORMAL) Lipid Panel (09/10/2016 9:39 AM COLOR GRINDER) Calculated LDL 130(H) <=129 MGDL POWERCHART Comment: 2014 National Lipid Association recommendations for LDL-C in adults ages 18 and up: Desirable <100 mg/dL Above desirable 100-129 mg/dL Borderline high 130-159 mg/dL High 160-189 mg/dL Very High 190 mg/dL 2014 National Lipid Association recommendations for LDL-C in children ages 2 to 17. Acceptable <110 mg/dL Borderline High 110-129mg/dL High 130 mg/dL LDL-C >190mg/dL: The markedly elevated LDL level is suggestive of a genetic condition such as familial hypercholesterolemia(FH) or familial defective apolipoprotein B-100 (FDB). Molecular genetic testing for FH and FDB is available through [facility]: FH/ADH Genetic Reflex Panel (test ADHP). Acquired (non-genetic) causes of markedly increased LDL cholesterol include cholestatic liver disease due to the presence of LpX. If a genetic form of hypercholesterolemia is suspected, family studies including biochemical testing for lipids (total cholesterol,triglycerides, LDL cholesterol and HDL cholesterol) are recommended. Please contact the laboratory at or the on-line test catalog at [employer] for information about how to order these tests or to speak with a genetic counselor. Further interpretation would require clinical information. Total Cholesterol/HDL Ratio 4.43 POWERCHART Cholesterol, Total 204(H) <=199 MGDL POWERCHART Comment: 2014 National Lipid Association recommendations for Total Cholesterol in adults ages 18 and up: Desirable <200 mg/dL Borderline high 200-239 mg/dL High 240 mg/dL 2014 National Lipid Association recommendations for Total Cholesterol in children ages 2 to 17. Acceptable <170 mg/dL Borderline High 170-199 mg/dL High 200 mg/dL HX HDL 46 >=40 MGDL POWERCHART Comment: 2014 National Lipid Association recommendations for HDL-C in adults ages 18 and up: Low <40 mg/dL (Men) Low <50 mg/dL (Women) 2014 National Lipid Association recommendations for HDL-C in children ages 2 to 17. Low <40 mg/dL Borderline Low 40-45 mg/dL Acceptable >45 mg/dL Triglycerides 140 <=149 MGDL POWERCHART Comment: 2014 National Lipid Association recommendations for Triglycerides in adults ages 18 and up: Normal <150 mg/dL Borderline High 150-199 mg/dL High 200-499 mg/dL Very High 500 mg/dL 2014 National Lipid Association recommendations for Triglycerides in children ages 2 to 9. Acceptable <75 mg/dL Borderline High 75-99 mg/dL High 100 mg/dL 2014 National Lipid Association recommendations for Triglycerides in children ages 10 to 17. Acceptable <90 mg/dL Borderline High 90-129 mg/dL High 130 mg/dL Trigs >400mg/dL: Triglycerides >400 mg/dL. Calculated LDL cholesterol is not valid. Non-HDL cholesterol may be used for risk assessment when triglycerides are >400mg/dL. HXLDL/HDL 3 POWERCHART Blood 09/10/2016 9:39 AM COLOR GRINDER Markos Claire APRN, C.N.P. LAB BLOOD ADD-ON Genia l Result POWERCHART from Last 3 Months or Most Recently Relevant to Health Maintenance Insurance [employer] Care Teams Leather Stretcher Relationship Specialty Start Date End Date Anthony Carpenter APRN, C.N.P. [address] [place] [phone] PCP - General Family Medicine 08/01/19
--- OUTSIDE RECORDS SUMMARY | 2025-08-09 11:56 | XMS_ITS | Clinical Summary ---
Author Organization [facility] Address [address] [place] [address] Care Team Providers Care Ornamental Metalwork Designer Name Role Phone None, Pcp Primary Care Provider Unavailabl e Allergies Active Allergy Reactions Criticality Noted Date Comments Adhesive Tape Other (see comments),Rash 05/22/2014 Tape only - not simethicone Gadolinium Rash Medium 09/17/2018 Gadolinium Derivatives Rash Medium 09/17/2018 Ketorolac Hives,Itching,Other (see comments),Rash 12/26/2011 Other reaction(s): Other (see comments) Cerner listed no reactions Cerner listed no reactions Ketorolac Tromethamine Hives 12/26/2011 Latex Other (see comments),Rash 12/26/2011 Other reaction(s): Other (see comments) Cerner listed no reactions Cerner listed no reactions Penicillins Nausea And Vomiting,Other (see comments),Rash 12/26/2011 Other reaction(s): GI intolerance, Other (see comments) Cerner listed no reactions Cerner listed no reactions Tramadol GI intolerance,Rash 03/22/2014 Medications acetaminophen (TYLENOL) 500 MG tablet Take 2 tablets (1,000 mg total) by mouth 01/24/2022 Active albuterol HFA (PROVENTIL HFA;VENTOLIN HFA) 108 (90 Base) MCG/ACT inhaler 10/30/2022 Active hydrOXYzine (ATARAX) 25 MG tablet Take 1 tablet (25 mg total) by mouth every 6 (six) hours if needed for anxiety 11/18/2022 Active pantoprazole (PROTONIX) 40 MG EC tablet Take 1 tablet (40 mg total) by mouth 2 times daily 04/19/2022 Active sertraline (ZOLOFT) 100 MG tablet Take 1 tablet (100 mg total) by mouth 1 (one) time each day 10/30/2022 Active sertraline (ZOLOFT) 50 MG tablet Take 1 tablet (50 mg total) by mouth daily 01/02/2022 Active Encounters Date Type Department Care Team Description 06/24/2025 12:55 AM CDT - 06/24/2025 1:52 AM CDT Emergency [facility] Emergency Room [address] [place] [address] Neha Bhat MD Panic attack (Primary Dx) Discharge Disposition: Home or Self Care 06/24/2025 Travel from Last 3 Months Social History Tobacco Use Types Packs/Day Years Used Date Smoking Tobacco: Never Smokeless Tobacco: Former Chew Sex and Gender Information Value Date Recorded Sex Assigned at Not on file Legal Sex Male 3:53 PM 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 Gender Identity Not on file Sexual Orientation Not on file Last Filed Vital Signs Vital Sign Reading Time Taken Comments Blood Pressure 161/103 06/24/2025 1:51 AM CDT Pulse 91 06/24/2025 1:51 AM CDT Temperature 37 C (98.6 F) 06/23/2025 11:43 PM CDT Respiratory Rate 18 06/24/2025 1:51 AM CDT Oxygen Saturation 96% 06/24/2025 1:51 AM CDT Inhaled Oxygen Concentration - - Weight 76 kg (167 lb 7 oz) 06/23/2025 11:43 PM C DT Height 165.1 cm (5' 5) 06/23/2025 11:43 PM CDT Body Mass Index 27.86 06/23/2025 11:43 PM CDT Plan of Treatment Health Maintenance Due Date Last Done Comments CT Colonography 1973 FIT-DNA 1973 Sigmoidoscopy 1973 Pneumococcal Vaccine: 50+ Years (1 of 1 - PCV) 2023 Zoster Vaccines (1 of 2) 2023 iFOBT 06/08/2025 06/08/2024 COVID-19 Vaccine (1 - season) 2025 Influenza Vaccine (#1) 2025 DTaP,Tdap,and Td Vaccines (8 - Td or Tdap) 12/25/2030 12/25/2020, 04/11/2012, 12/10/1990, Additional history exists Colonoscopy 07/29/2031 07/29/2021 Colorectal Cancer Screening 07/29/2031 HPV Vaccines Aged Out No longer susan ortega based on patient's age to complete this topic Care Teams Ornamental Metalwork Designer Relationship Specialty Start Date End Date None, Pcp [address] [place] [address] PCP - General Administrative Support Assoc 12/09/22
--- OUTSIDE RECORDS SUMMARY | 2025-08-09 11:56 | XMS_ITS | Encounter Summary ---
Author Organization [facility] Address [address] [place] [address] Care Team Providers Care Radiopharmacist Name Role Phone Anthony Carpenter APRN, CNP Primary Care Prov ider Encounter Details Date Type Department Care Team (Late st Contact Info) Description 07/20/2013 [facility] [place] [address] Robel Pascual MD TREATMETN RETURN TO WORK ASSESSMENT Social History Tobacco Use Types Packs/Day Years Used Date Smoking Tobacco: Never Sex and Gender Information Value Date Recorded Sex Assigned at Not on file Legal Sex Male 2:23 PM CDT Gender Identity Not on file Sexual Orientation Not on file documented as of this encounter Progress Notes * Robel Pascual MD - 07/20/2013 12:00 AM CDT FEEDER documented in this encounter Plan of Treatment Not on file documented as of this encounter Visit Diagnoses Not on filedocumented in this encounter Care Teams Radiopharmacist Relationship Specialty Start Date End Date Anthony Carpenter APRN, CNP [address] [place] [address] PCP - General Nurse Practitioner 08/28/21 documented as of this encounter
[2025-08-09] MEDS: diazePAM 5 MG/ML inj IV (12:05)
[2025-08-09 12:12] LABS: Troponin, Point-of-Care* 0.00 ng/ml (0.01-0.04)
[2025-08-09 12:22] VITALS: PULSE 83; O2SAT 97
[2025-08-09 12:27] LABS: D Dimer Quantitative* < 0.27 ug/ml (0.00-0.50)
[2025-08-09 12:30] VITALS: PULSE 76; O2SAT 95
[2025-08-09 12:32] VITALS: BP 142/88; PULSE 73; RESP 16; O2SAT 96
[2025-08-09 12:45] VITALS: PULSE 69; O2SAT 96
[2025-08-09 13:01] VITALS: PULSE 71; O2SAT 97
== END 2025-08-09 13:34 | disposition home or self-care (01) ==
PROVIDERS: Emergency Provider Emergency Medicine
DX: F41.9 Anxiety disorder, unspecified (principal); R06.02 Shortness of breath
CPT/HCPCS: 36415; 71045; 84484; 85379; 93005; 96374; 99284; 99285; J3360